=== PATIENT | female | born 1980 | race Caucasian/White ===

== ENCOUNTER 2022-03-11 14:35 | Outpatient (CLI) | payer OTHER, SELFPAY ==
--- NOTE | 2022-03-11 14:30 | MR_ITS ---
[facility] [address] [facility] [address] Phone:?[phone] Fax:?[phone] Referring Physician Information: Hunter Rodriguez [address] [facility] [address] Phone:?[phone] Fax:?[phone] Patient:Reuben Roberts D.O.B:?1980 Sex:?Female Phone:?[phone] [facility] MRN:?[id number] Exam Date:?03/11/2022 ? EXAM: MRI LUMBAR SPINE WITHOUT CONTRAST CLINICAL INFORMATION: 41-year-old woman with low back pain. TECHNICAL INFORMATION: MRI lumbar spine was obtained on 1.5 Leonor magnet including sagittal T2, T1, and STIR images. Axial T2 and T1-weighted images. INTERPRETATION: There is normal lordotic curvature of the lumbar spine. Convex to the right curvature. No loss of vertebral body height. Inflammatory endplate change at L5-S1. The conus is at the L1 level and is normal in appearance. L5-S1: Severe degenerative disc disease with inflammatory endplate change and disc bulge. 5 mm left posterior lateral and foraminal extruded disc herniation with left-sided subarticular recess stenosis and impingement upon the traversing left S1 nerve. Moderate to severe left foraminal stenosis with left L5 ganglion impingement. Moderate to severe right foraminal stenosis with right L5 ganglion impingement. No central spinal canal stenosis. Mild bilateral facet arthropathy. L4-5: No loss of disc space height. Mild annular bulge without central spinal canal or foraminal stenosis. L3-4: Minimal retrolisthesis and disc bulge without central spinal canal stenosis. 3 mm right foraminal and lateral disc protrusion contacting the right L3 nerve lateral to the foramen. Foramen on the left is patent. The facet joints are unremarkable. L2-3: No loss of disc space height. Minimal retrolisthesis and mild annular bulge. No central spinal canal or foraminal stenosis. L1-2 and T12-L1: No loss of disc space height or annular bulge. No central spinal canal or foraminal stenosis. CONCLUSION: 1. L5-S1 severe degenerative disc disease with inflammatory endplate change which may represent a cause of axial low back pain. Left posterior lateral and foraminal extruded disc herniation with impingement upon the traversing left S1 nerve. Moderate to severe bilateral foraminal stenosis with L5 ganglion impingement. 2. L3-4 3 mm right foraminal and lateral disc protrusion contacting the right L3 nerve lateral to the foramen. LPB Electronically signed on 03/12/2022 9:45:00 AM by Kurt Sparrow M.D.
== END 2022-03-11 14:36 | disposition home or self-care (01) ==
LOC: MRI 14:35
PROVIDERS: PCP Nurse Practitioner Family; Visit Provider Nurse Practitioner Family
DX: M54.50 Low back pain, unspecified (principal); M51.37 Other intervertebral disc degeneration, lumbosacral region; M51.26 Other intervertebral disc displacement, lumbar region
CPT/HCPCS: 72148

== ENCOUNTER 2022-03-18 14:29 | Outpatient (RCR) | payer OTHER, SELFPAY | END 2022-05-15 14:23 | disposition home or self-care (01) | PROVIDERS: PCP Nurse Practitioner Family; Visit Provider Nurse Practitioner Family | DX: M54.50 Low back pain, unspecified (principal); M25.562 Pain in left knee; Z51.89 Encounter for other specified aftercare | CPT/HCPCS: 97110; 97162 ==

== ENCOUNTER 2022-04-10 14:38 | Outpatient (CLI) | payer OTHER, SELFPAY ==
--- OUTSIDE RECORDS SUMMARY | 2022-04-10 14:40 | XMS_ITS | Clinical Summary ---
:1980 Author Organization [facility] [place] [address] Care Team Providers Name Role Phone Matheus Feliciano Primary Care Provider [phone] Allergies Active Allergy Reactions Severity Noted Date Comments Cephalexin Rash 06/11/2010 Medications Medication Sig Dispensed Refills Start Date End Date Status multivitamin (MVI) Take 1 tablet by 0 12/24/2010 Active tablet mouth once daily. cyanocobalamin Inject 0 10/13/2011 Acti ve (VITAMIN B12) 1,000 intramuscular every mcg/mL injection 4 weeks. SUMAtriptan (IMITREX) Take 1 tablet by 0 03/17/2012 Active 100 mg tablet mouth every 2 hours if needed for Migraine. Max dose: 200mg per 24 hrs. Atomoxetine Take 1 capsule by 0 04/15/2012 Active (STRATTERA) 80 mg mouth once daily. capsule cetirizine (ZYRTEC) Take 1 tablet by 30 tablet 0 06/15/2015 Active 10 mg mouth once daily. tabletIndications: Other allergic rhinitis escitalopram oxalate Take 20 mg by mouth 0 Active (LEXAPRO) 20 mg once daily. tablet gabapentin Take 900 mg by 99 03/31/2016 Act jennie (NEURONTIN) 300 mg mouth 3 times capsule daily. fluticasone (50 mcg Inhale 2 Sprays to 0 08/01/2016 Active per actuation) nasal both nostrils once solution (FLONASE) daily. ondansetron (ZOFRAN Place 1 Tablet (4 10 Tablet 0 01/09/2021 Active ODT) 4 mg mg) on the tongue disintegrating every 8 hours if tabletIndications: needed for Upper abdominal pain Nausea/Vomiting. busPIRone (BUSPAR) 30 Take 30 mg by mouth 0 06/20/20 20 Active mg tablet 2 times daily. CHOLECALCIFEROL, Take 2,000 units by 0 Active VITAMIN D3, ORAL mouth once daily. fremanezumab-vfrm 225 Inject 225 mg 0 01/22/2021 Active mg/1.5 mL syrg subcutaneous every 4 weeks. trospium (SANCTURA) Take 20 mg by mouth 0 Active 20 mg tablet 2 times daily. diclofenac (VOLTAREN TAKE 1 TABLET(100 30 Tablet 0 04/22/2021 Active XR) 100 mg extended MG) BY MOUTH EVERY release DAY WITH A MEAL tabletIndications: Chronic pain of left knee, Chronic left hip pain ondansetron (ZOFRAN Place 1 Tablet (4 9 Tablet 0 07/02/2021 Active ODT) 4 mg mg) on the tongue disintegrating every 8 hours if tabletIndications: needed for Nausea Nausea/Vomiting for up to 9 doses. ondansetron (ZOFRAN Place 1 Tablet (4 10 Tablet 0 07/24/2021 Active ODT) 4 mg mg) on the tongue disintegrating tablet every 8 hours if needed for nausea. HYDROcodone-acetamino Take 1 Tablet by 10 Tablet 0 08/06/2021 Active phen (NORCO) 5-325 mg mouth every 6 hours per if needed for Pain. tabletIndications: Defect of articular cartilage meloxicam (MOBIC) 7.5 TAKE 1 TABLET BY 30 Tablet 0 09/11/2021 Active mg tabletIndications: MOUTH ONCE A DAY Chronic pain of left WITH BREAKFAST. knee, Chronic left TAKE WITH PROTON hip pain, Labral tear PUMP INHIBITOR. of hip, degenerative, DISCONTINUE IF Defect of articular STOMACH PAIN cartilage, Chondromalacia of patellofemoral joint, left MULTIVITAMIN ORAL Take 1 Tablet by 0 Active mouth once daily. ProAir HFA 90 INHALE 2 PUFFS BY 0 01/11/2022 Active mcg/actuation inhaler MOUTH EVERY 4 HOURS NEEDED FOR COUGH calcium carbonate Take 500 mg by 0 Active (OS-MARCELLUS 500) 500 mg mouth. calcium (1,250 mg) tablet cyclobenzaprine 0 12/27/2021 Act jennie (FLEXERIL) 10 mg tablet levETIRAcetam 0 01/22/2022 Activ e (KEPPRA) 500 mg tablet voimpxqm-owxmryqbt-sl ADMINISTER 2 DROPS 0 2 Active drocortisone INTO EACH EAR FOUR (CORTISPORIN OTIC) TIMES DAILY otic suspension oxyCODONE 0 01/08/2022 Active (ROXICODONE) 5 mg immediate release tablet pantoprazole Take 1 Tablet by 0 07/03/2021 Active (PROTONIX) 20 mg mouth in the tablet morning and 1 Tablet in the evening. propranoloL (INDERAL) TAKE 1 TABLET BY 0 12/30/2021 Active 20 mg tablet MOUTH TWICE DAILY FOR 2 WEEKS IF TOLERATED MAY INCREASE TO 2 TABLETS BY MOUTH TWICE DAILY topiramate (TOPAMAX) 0 10/15/2020 Active 100 mg tablet traZODone (DESYREL) 0 01/13/2022 Active 50 mg tablet ZOLMitriptan (ZOMIG) Take 5 mg by mouth. 0 1 Active 5 mg tablet Dextromethorphan-guaF Take 1 Tablet by 30 Tablet 0 01/22/2022 Active ENesin (Mucinex DM) mouth in the 30-600 mg TABLET morning and 1 EXTENDED RELEASE 12 Tablet in the HRIndications: Nasal evening. congestion albuterol HFA Inhale 1-2 Puffs by 1 Each 0 01/22/2022 Active (PRO-AIR; VENTOLIN; mouth every 4 hours PROVENTIL) 90 if needed (cough). mcg/actuation inhalerIndications: Chest tightness, Nasal congestion albuterol (PROVENTIL) Inhale 3 mL (2.5 270 mL 0 01/22/2022 Active 0.083 % neb mg) via a nebulizer solutionIndications: every 4 hours if COVID-19, Nasal needed for Cough. congestion Active Problems Problem Noted Date Cat bite 08/04/2018 S/P gastric bypass 04/15/2012 Insomnia, unspecified 10/13/2011 Opioid dependence 10/13/2011 Migraine, unspecified, without mention of intractable migraine without 10/13/2011 mention of status migrainosus Major depression, recurrent (Sees Dr. Tc Segal, melvin) 10/13/2011 Morbid obesity - post bypass. 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 Heart Disease Mother Recent stress te st revealed blockage Heart Disease Paternal Grandfather NE age 30's (maybe) Heart Disease Paternal Grandmother Unknown Sister 2 Cancer-breast No Family History Relation Name Status Comments Brother 1 Alive Brother 2 Alive Brother 3 Brother 4 Daughter 1 Alive Daughter 2 Alive Daughter 3 Daughter 4 Father Alive Maternal Grandfather Mother Alive Paternal Grandfather Paternal Grandmother Sister 1 Alive Sister 2 Social History Tobacco Use Types Packs/Day Years Used Date Former Smoker Cigarettes 1.2 5 Quit: 08/10/18 98 Smokeless Tobacco: Never Used Tobacco Cessation: Counseling Given: Yes Alcohol Use Standard Drinks/Week Comments No 0 (1 standard drink = 0.6 oz pure alcoho l) occasionally Alcohol Habits Answer Date Recorded How often do you have a drink containing alcohol? Not asked How many drinks containing alcohol do you have on a Not aske d typical day when you are drinking? How often do you have six or more drinks on one occasion? 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 Body Mass Index 26.09 07/02/2021 2:40 PM SCHOOL BUS MECHANIC Plan of Treatment Health Maintenance Due Date Last Done Comments Depression screening for age 12+ 1993 Hepatitis C screening for age 0411/13/1999 18-79 BMI (ht and wt on same day) for 03/26/2022 03/26/2021, 0804/2021, age 18+ 07/23/2019, Additional history exists Influenza for age 9-49 04/10/2022 06/17/2013 ([facility]), 06/17/2013 Tetanus booster 11/03/2027 11/02/2017, 03/20/2007 Tdap Completed 11/02/2017, 03/20/2007 COVID-19 vaccine series Completed 07/17/2021, 12/18/2020, 11/22/2020 Medical Devices Implanted Type Area Slider Assembler Device Shelf Model / Identifier Expiration Date Ser ial / Lot Stent Uret [id number] Contour - [id number] Left: BSC Ur ology 11/15/2023 [id number] / Implanted: Qty: 1 on 02/06/2021 by Rebel Bernstein MD at [facility] Ureter / [id number] Procedures Procedure Name Priority Date/Time Associated Diagnosis Comme nts XR CHEST 2 VIEWS PA STAT 01/22/2022 5:45 PM Chest tig htness Results for this AND LATERAL CDT COVID-19 procedure are i n the results section. from Last 3 Months Results XR CHEST 2 VIEWS PA AND LATERAL (01/22/2022 5:45 PM CDT) Anatomical Region Laterality Modality CHEST, THORAX, Lung, HEART Computed Radi ography Specimen (Source) Anatomical Collection Method Collection Time Re ceived Time Location / / Volume Laterality 01/22/2022 5:49 PM CDT Impressions 01/22/2022 5:49 PM CDT 1. No acute cardiopulmonary disease is seen. Dictated by: Chandra Wood MD @ 01/22/2022 17 :49:40 (Electronically Signed) Narrative 01/22/2022 5:49 PM CDT For Patients: ??As a result of the Cures Act, medical imaging exams and procedure report s are released immediately into your [facility] medical record. ??You may view this report before your referring provider. ??If you have questions, please contact your health care provider. INDICATION: Chest tightness, COVID-19 TECHNIQUE: Chest radiograph 2 views COMPARISON: 04/07/2016 FINDINGS: Mediastinum: The mediastinum is normal i n appearance. The heart silhouette is normal in size and morphology. Lung: Both lungs are unremarkable in josé antonio earance. No sign of pleural effusion seen. No pneumothorax is identified. Bone and Soft tissue: Unremarkable for a ge. Procedure Note Chandra Wood MD - 01/22/2022Formattin g of this note might be different from the original. For Patients: As a result of the Cures Act, medical imaging exams and procedure reports are released immediately into your electronic medical record. You may view this report before your referring provider. If you have questions, please contact yo health care provider. INDICATION: Chest tightness, COVID-19 TECHNIQUE: Chest radiograph 2 views COMPARISON: 04/07/2016 FINDINGS: Mediastinum: The mediastinum is normal i n appearance. The heart silhouette is normal in size and morphology. Lung: Both lungs are unremarkable in josé antonio earance. No sign of pleural effusion seen. No pneumothorax is identified. Bone and Soft tissue: Unremarkable for a ge. IMPRESSION: 1. No acute cardiopulmonary disease is s een. Dictated by: Chandra Wood MD @ 01/22/2022 17 :49:40 (Electronically Signed) Marjan E Furlong PLANT MAINTENANCE MECHANIC GENERAL IMAGING from Last 3 Months Insurance Payer Benefit Plan / Subscriber ID Effective Dates Phone Addre ss Type Group [facility] [id number] 2020-Present [address] [facility] [id number] (Home) [place] [phone] Advance Directives Latest Code Status on File Code Status Date Activated Date Inactivated Comments Full Code 02/06/2021 6:35 AM 02/06/2021 3:07 PM Code Status Discussion: Not Discussed Full Code 09/19/2020 7:23 AM 09/19/2020 1:10 PM Code Status Discussion: Not Discussed Full Code 10/10/2010 9:11 AM 10/12/2010 3:40 PM Full Code 01/28/2008 10:10 AM 01/28/2008 5:52 PM Care Teams Culture Room Worker Relationship Specialty Start Date End Date Matheus Feliciano MBBS PCP - General Family Practice 01/11/[address] [place] [address] [place] [address]
--- OUTSIDE RECORDS SUMMARY | 2022-04-10 14:41 | XMS_ITS | Clinical Summary ---
:1980 Author Organization [place] Address [address] [place] [address] Care Team Providers Name Role Phone Matheus Feliciano MD Primary Care Provider Car Joel MD Unavailable Allergies Active Allergy Reactions Severity Noted Date Comments Cephalexin Hcl Itching, Rash High 01/01/2012 Medications Medication Sig Dispensed Refills Start Date End Date Status busPIRone HCl (BUSPAR) Take 30 mg by 0 Active 30 MG tablet mouth 2 times daily SUMAtriptan (IMITREX) Take 100 mg by 0 Active 100 MG tablet mouth every 8 hours as needed atomoxetine (STRATTERA) Take 80 mg by 0 Active 80 MG capsule mouth daily. Multiple Take 1 tablet by 0 Act jennie Vitamins-Minerals mouth every (MULTIVITAMIN & MINERAL morning PO)Indications: Bariatric surgery status, Overweight and obesity(278.0) calcium Take 1 tablet by 90 tablet 11 07/13/2013 Ac tive carbonate-vitamin D mouth 3 times (CALCIUM 500 + D) daily 500-400 MG-UNIT TABS tabltIndications: Bariatric surgery status, Overweight and obesity(278.0) cyanocobalamin 1000 Inject 1 mL 1 mL 11 07/13/2013 Active MCG/ML (1,000 mcg) into injectionIndications: the muscle every Bariatric surgery 30 days status, Overweight and obesity(278.0) escitalopram (LEXAPRO) Take 20 mg by 0 Active 20 MG tablet mouth daily levETIRAcetam (KEPPRA) Take 500 mg by 0 Active 500 MG tablet mouth 2 times daily topiramate (TOPAMAX) Take 100 mg by 0 Active 100 MG tablet mouth At Bedtime gabapentin (NEURONTIN) Take 900 mg by 0 Active 300 MG capsule mouth 3 times daily (takes 3 x 300mg) fluticasone (FLONASE) Bronson 30 mcg in 0 Active 50 MCG/ACT nasal spray nostril daily as needed vitamin D3 Take 2,000 Units 0 Ac tive (CHOLECALCIFEROL) 50 by mouth daily mcg (2000 units) tablet omega 3 1000 MG CAPS Take 1 g by mouth 0 Active daily ondansetron Take 4 mg by 0 09/21/2019 Acti ve (ZOFRAN-ODT) 4 MG ODT mouth every 6 tab hours as needed lidocaine (LIDODERM) 5 Place 1 patch 0 08/26/2018 Active % patch onto the skin daily as needed adapalene (DIFFERIN) Apply topically 0 Active 0.1 % external cream At Bedtime cetirizine (ZYRTEC) 10 Take 10 mg by 0 Active MG tablet mouth daily as needed polyethylene glycol Take 1 packet by 0 Active (MIRALAX) 17 g packet mouth daily doxylamine (UNISOM) 25 Take 50 mg by 0 Active MG TABS tablet mouth At Bedtime (take 2 x 25mg) cyclobenzaprine Take 0.5-1 10 tablet 0 05/04/2020 Ac tive (FLEXERIL) 10 MG tablets (5-10 mg) tabletIndications: by mouth 2 times Postoperative pain daily as needed for muscle spasms pantoprazole (PROTONIX) TAKE 1 TABLET BY 30 tablet 3 2 Active 20 MG EC MOUTH TWICE DAILY tabletIndications: Other acute gastritis without hemorrhage Active Problems Problem Noted Date Hiatal hernia 03/22/2020 Overview: Added automatically from request for jose riveray [id number] Bariatric surgery status 11/17/2019 Malnutrition following gastrointestinal surgery 2019 Class 1 obesity due to excess calories without serious comorbidity with 11/17/2019 body mass index (BMI) of 30.0 to 30.9 in adult Cervicalgia 09/09/2017 Chronic bilateral low back pain without sciatica 09/09 Resolved Problems Problem Noted Date Resolved Date Sprain of thoracic region 01/14/2011 03/06/2011 Sprain of lumbar region 01/14/2011 03/06/2011 Encounters Date Type Specialty Care Team Description 02/17/2022 Telephone Surgery Lelo Aranda, RN 02/17/2022 Refill General Surgery Car Joel MD Medica tion Refill from Last 3 Months Immunizations Name Administration Dates Next Due TD (ADULT, 7+) 03/20/2007 Family History Medical History Relation Comments Colon Cancer No family hx of Social History Tobacco Use Types Packs/Day Years Used Date Former Smoker Cigarettes Smokeless Tobacco: Never Used Comments: as a child Alcohol Use Standard Drinks/Week Comments No 0 (1 standard drink = 0.6 oz pure alcoho l) Sex Assigned at Date Recorded Female 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 Last Filed Vital Signs Vital Sign Reading Time Taken Comments Blood Pressure 90/60 04/03/2021 3:05 PM CDT Pulse 84 04/03/2021 3:05 PM CDT Temperature 36.7 ??C (98 ??F) 02/09/2021 9:19 PM CDT Respiratory Rate 16 02/09/2021 11:00 PM CDT Oxygen Saturation 99% 02/09/2021 11:00 PM CDT Inhaled Oxygen Concentration - - Weight 66.7 kg (147 lb) 04/03/2021 3:05 PM CDT Height 165.1 cm (5' 5) 05/28/2020 9:44 AM CDT Body Mass Index 24.46 05/28/2020 9:44 AM CDT Plan of Treatment Health Maintenance Due Date Last Done Comments ADVANCE CARE PLANNING 1980 ANNUAL REVIEW OF HM ORDERS 1980 PREVENTIVE CARE VISIT 1980 URINE DRUG SCREEN 1980 HIV SCREENING 1996 HEPATITIS C SCREENING 11/13/1999 PAP 2002 COVID-19 Vaccine (3 - 05/20/2021 12/18/2020, 11/22/2020 Booster for Pfizer series) PHQ-2 (once per calendar 08/10/2021 year) INFLUENZA VACCINE (#1) 2022 06/21/2020, 05/02/2019, 04/20/2018, Additional history exists DTAP/TDAP/TD IMMUNIZATION 11/03/2027 11/02/2017, 03/20/2007 , (3 - Td or Tdap) 03/20/2007 HEPATITIS B IMMUNIZATION Aged Out No long er eligible based on patient 's age to complete this topic IPV IMMUNIZATION Aged Out No longer eligi ble based on patient 's age to complete this topic MENINGITIS IMMUNIZATION Aged Out No longe r eligible based on patient 's age to complete this topic Pneumococcal Vaccine: Aged Out No longer eligible Pediatrics (0 to 5 Years) based on patient's age and At-Risk Patients (6 to to co mplete this topic 64 Years) Medical Devices Implanted Type Area Technical Support Director Device Identifier Shelf Model / Expiration Serial / Date Lot Mesh Bio-A Tissue Reinforcement 7x10cm [id number] Mesh N/A: W .L.GORE [id number] 10/09/2022 [id number] / Implanted: Qty: 1 on 04/12/2020 by Car Lieberman MD at [facility] Abdomen [id number] 27 / Insurance Payer Benefit Plan Subscriber ID Effective Phone Address Typ e / Group Dates [facility] [id number] 2017-Prese [phone] [address] [facility] [address] [id number] [employer] [place] [facility] [phone] [address] (Home) [place] [phone] Advance Directives For more information, please contact: [phone] Latest Code Status on File Code Status Date Activated Date Inactivated Comments Full Code 04/12/2020 2:31 PM 04/14/2020 3:50 PM All basic and advanced life-sustaining interventions ar e performed as appropriate Code status determined by: Unable to determine; FULL C ODE until documents or legal decision maker available Care Teams Historic Sites Supervisor Relationship Specialty Start Date End Date Matheus Feliciano MD PCP - General 03/23/20 [facility] [address] [place] [phone] Car Joel MD Assigned Surgical Provider 06/01/20 [address] [place] [address]
--- OUTSIDE RECORDS SUMMARY | 2022-04-10 14:41 | XMS_ITS | Encounter Summary ---
:1980 Author Organization [place] Address [address] [place] [address]. 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 documented as of this encounter Plan of Treatment Not on filedocumented as of this encounter Visit Diagnoses Not on filedocumented in this encounter Care Teams Delivery Person Relationship Specialty Start Date End Date Matheus Feliciano MD PCP - General 03/23/[address] [facility] [address] [place] [phone] Car Joel MD Assigned Surgical Provider 06/01/20 [address] [place] [address] documented as of this encounter
--- OUTSIDE RECORDS SUMMARY | 2022-04-10 14:41 | XMS_ITS | Encounter Summary ---
:1980 Author Organization [place] Address [address] [place] [address]. [place] [address] Care Team Providers Name Role Phone Matheus Feliciano MD Primary Care Provider Car Joel MD Unavailable Reason for Visit Reason Onset Date Comments Same Day Appointment 03/04/2021 Encounter Details Date Type Department Care Team Description 03/04/2021 Telephone [facility] Car Joel MD Same Day Appointment [facility] [place] [address] [place] [address] [place] [address] [phone] Social History Tobacco Use Types Packs/Day Years Used Date Former Smoker Cigarettes Smokeless Tobacco: Never Used Comments: as a child Alcohol Use Standard Drinks/Week Comments No 0 (1 standard drink = 0.6 oz pure alcoho l) Sex Assigned at Date Recorded Female 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 Joel appointment will need to be rescheduled. We rescheduled appointment. Telephone Encounter - Geni Olmos - 03/04/2021 10:28 AM CDT Reason for call: Other Patient called regarding (reason for call): appointment Additional comments: Patient is running about 20 - 30 minutes late. They are wondering if they can still be seen for the surgical consult with MD Joel. We tried the nurse line twice, but it went to voicemail. Please call the patient to discuss. Phone number to reach patient: Home number on file [phone] (home) Best Time: DAWN (Patient driving from a distance, needs to know if they should keep driving) Can we leave a detailed message on this number? YES Travel screening: Not Applicable documented in this encounter Plan of Treatment Not on filedocumented as of this encounter Visit Diagnoses Not on filedocumented in this encounter Care Teams Wireless Retail Manager Relationship Specialty Start Date End Date Matheus Feliciano MD PCP - General 03/23/20 [facility] [address] [facility] [place] [phone] Car Joel MD Assigned Surgical Provider 06/01/20 [address] [place] [id number] documented as of this encounter
--- OUTSIDE RECORDS SUMMARY | 2022-04-10 14:41 | XMS_ITS | Encounter Summary ---
:1980 Author Organization [place] Address [address] [place] [address]. [place] [address] Care Team Providers Name Role Phone Matheus Feliciano MD Primary Care Provider Car Joel MD Unavailable Reason for Visit Reason Comments Medication Refill Encounter Details Date Type Department Care Team Description 12/25/2021 Refill [facility] Surgery Car Joel MD Medication Refill Clinic [place] [address] [place] [place] [address] [address] [place] [phone] Social History Tobacco Use Types Packs/Day Years Used Date Former Smoker Cigarettes Smokeless Tobacco: Never Used Comments: as a child Alcohol Use Standard Drinks/Week Comments No 0 (1 standard drink = 0.6 oz pure alcoho l) Sex Assigned at Date Recorded Female 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 She is all out. She ran out 2 days ago. Is not symptomatic at this minute but has had indegestion in the past 2 days. Requesting refill Verified pharmacy. Requested pt schedule follow-up with providers in clinic - pt declined at this time. She will call to schedule for annual in March. Will forward to provider for refill Lelo Aranda RN on 12/27/2021 at 3:02 PM Telephone Encounter - Lelo Aranda RN - 12/27/2021 10:37 AM CDT Called pt re: pantoprazole refill request No answer Left VM to call clinic Lelo Aranda RN on 12/27/2021 at 10:37 AM documented in this encounter Plan of Treatment Not on filedocumented as of this encounter Visit Diagnoses Diagnosis Other acute gastritis without hemorrhage documented in this encounter Care Teams Computer Lab Para Professional Relationship Specialty Start Date End Date Matheus Feliciano MD PCP - General 03/23/20 [facility] [address] [place] [address] Car Joel MD Assigned Surgical Provider 06/01/20 [address] [place] [id number] documented as of this encounter
--- OUTSIDE RECORDS SUMMARY | 2022-04-10 14:41 | XMS_ITS | Encounter Summary ---
:1980 Author Organization [place] Address [address] [place] [address]. [place] [address] Care Team Providers Name Role Phone Matheus Feliciano MD Primary Care Provider Car Joel MD Unavailable Reason for Visit Reason Comments Medication Refill Encounter Details Date Type Department Care Team Description 08/30/[address] 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 She reports she is taking 20 mg pantoprazole daily. Symptoms are relieved on this medication. Has approx 5 days left. She is requesting a refill. Does not want to follow-up with any provider in [place] is only seeing . will forward to for refill. Lelo Aranda RN on 08/30/2021 at 2:12 PM OSING ROOM MACHINIST Telephone Encounter - Lelo Aranda RN - 08/30/2021 8:46 AM CST Called pt re: protonix refill request Last visit with 03/2021 No answer Left Vm to call clinic, will send MC message for pt to respond as well. Lelo Aranda RN on 08/30/2021 at 8:47 AM OSING ROOM MACHINIST documented in this encounter Plan of Treatment Not on filedocumented as of this encounter Visit Diagnoses Diagnosis Other acute gastritis without hemorrhage documented in this encounter Care Teams Cephalometric Analyst Relationship Specialty Start Date End Date Matheus Feliciano MD PCP - General 03/23/[address] [place] [address] Car Joel MD Assigned Surgical Provider 06/01/20 [address] [place] [id number] documented as of this encounter
--- OUTSIDE RECORDS SUMMARY | 2022-04-10 14:41 | XMS_ITS | Encounter Summary ---
:1980 Author Organization [place] Address [address] [place] [address]. [place] [address] Care Team Providers Name Role Phone Matheus Feliciano MD Primary Care Provider Car Joel MD Unavailable Reason for Visit Reason Comments RECHECK Encounter Details Date Type Department Care Team Description 04/03/2021 Office Visit [facility] Car Joel, Malmio ition following Surgery Clinic [place] gastrointestinal surgery [address] [place] [phone] [place] [id number] Social History Tobacco Use Types Packs/Day Years Used Date Former Smoker Cigarettes Smokeless Tobacco: Never Used Comments: as a child Alcohol Use Standard Drinks/Week Comments No 0 (1 standard drink = 0.6 oz pure alcoho l) Sex Assigned at Date Recorded Female 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 documented as of this encounter Last Filed Vital Signs Vital Sign Reading Time Taken Comments Blood Pressure 90/60 04/03/2021 3:05 PM CDT Pulse 84 04/03/2021 3:05 PM CDT Temperature - - Respiratory Rate - - Oxygen Saturation - - Inhaled Oxygen Concentration - - Weight 66.7 kg (147 lb) 04/03/2021 3:05 PM CDT Height - - Body Mass Index 24.46 05/28/2020 9:44 AM CDT documented in this encounter Progress Notes Car Joel MD - 04/03/2021 3:00 PM CDT General surgery clinic note Since last visit Mrs. Roberts has been journaling her food intake daily. In doing so she has identified food items that she should cut back on and has done so specifically monster drinks. She has herself noticed a significant improvement on her energy and demeanor. Today she is very enthusiastic and pleased with the progress. I believe journaling her food has allow her to have a goal of ingesting at least a certain amount offood and drinks which has improved her overall situation. I highly encouraged her to continue doing so he has proved highly effective and has not been difficult for her filling it. Return to clinic as needed. documented in this encounter Plan of Treatment Not on filedocumented as of this encounter Visit Diagnoses Diagnosis Malnutrition following gastrointestinal surgery - Primary Other and unspecified postsurgical nonab sorption documented in this encounter Care Teams Dental Surgeon Relationship Specialty Start Date End Date Matheus Feliciano MD PCP - General 03/23/20 [facility] [address] [facility] [place] [phone] Car Joel MD Assigned Surgical Provider 06/01/20 [address] [place] [id number] documented as of this encounter
--- OUTSIDE RECORDS SUMMARY | 2022-04-10 14:41 | XMS_ITS | Encounter Summary ---
:1980 Author Organization [place] Address [address] [place] [address]. [place] [address] Care Team Providers Name Role Phone Matheus Feliciano MD Primary Care Provider Car Joel MD Unavailable Reason for Visit Reason Comments Medication Refill Encounter Details Date Type Department Care Team Description 02/17/2022 Refill [facility] Surgery Car Joel MD Medication Refill Clinic [place] [address] [place] [address] [address] [place] [phone] Social History Tobacco Use Types Packs/Day Years Used Date Former Smoker Cigarettes Smokeless Tobacco: Never Used Comments: as a child Alcohol Use Standard Drinks/Week Comments No 0 (1 standard drink = 0.6 oz pure alcoho l) Sex Assigned at Date Recorded Female 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 Yes 2) How many tablets do you have left? 2 days worth 3) Are you symptoms controlled? If I stop taking medication I have bad indigestion without it Pt would like refill of Pantoprazole Will forward to for refill. Lelo Aranda, RN on 02/17/2022 at 10:38 AM documented in this encounter Plan of Treatment Not on filedocumented as of this encounter Visit Diagnoses Diagnosis Other acute gastritis without hemorrhage documented in this encounter Care Teams Claims Specialist Relationship Specialty Start Date End Date Matheus Feliciano MD PCP - General 03/23/20 [facility] [address] [facility] [place] [address] Car Joel MD Assigned Surgical Provider 06/01/20 [address] [place] [id number] documented as of this encounter
--- OUTSIDE RECORDS SUMMARY | 2022-04-10 14:42 | XMS_ITS | Encounter Summary ---
:1980 Author Organization [place] Address [address] [place] [address]. [place] [address] Care Team Providers Name Role Phone Matheus Feliciano MD Primary Care Provider Reason for Visit Reason Comments Surgical Followup Laparoscopic Hiatal Hernia r epair on 04/12/20 Encounter Details Date Type Department Care Team Description 04/30/2020 Office Visit [facility] Car Joel, Surgery follow-up Surgery Clinic [place] examination (Primary [address] [place] [address] [place] [id number] Social History Tobacco Use Types Packs/Day Years Used Date Former Smoker Cigarettes Smokeless Tobacco: Never Used Comments: as a child Alcohol Use Standard Drinks/Week Comments No 0 (1 standard drink = 0.6 oz pure alcoho l) Sex Assigned at Date Recorded Female 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 documented as of this encounter Progress Notes Car Joel MD - 04/30/2020 11:45 AM CDT Bariatric surgery clinic note. First postoperative visit with Mrs. Roberts and her after her laparoscopic hiatal hernia repair. Since leaving the hospital she has been able to eat and drink up to full liquid diet without difficulties. Her bowel habits are still infrequent where she goes maybe once every 5 to 7 days. We discussed the importance of hydration to address this issue or adding things like prune juice. She is not suffering from any reflux and regurgitation has not been a problem. Her incisions are healing well without evidence of infection or hernia. Overall very good recovery, we talked about advancing her diet to moist and soft items. I suspect her diet will be fully liberalized in the next 2 to 4 weeks. We will continue to see her in follow-up. If questions, please call us. Best regards documented in this encounter Plan of Treatment Not on filedocumented as of this encounter Visit Diagnoses Diagnosis Surgery follow-up examination - Primary Follow-up examination, following unspeci fied surgery documented in this encounter Care Teams Pigs Feet Finisher Relationship Specialty Start Date End Date Matheus Feliciano MD PCP - General 03/23/[address] [place] [phone] documented as of this encounter
--- OUTSIDE RECORDS SUMMARY | 2022-04-10 14:42 | XMS_ITS | Encounter Summary ---
:1980 Author Organization [place] Address [address] [place] [address]. [place] [address] Care Team Providers Name Role Phone Matheus Feliciano MD Primary Care Provider Reason for Visit Reason Comments Medication Refill Encounter Details Date Type Department Care Team Description 04/17/[address] 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 documented as of this encounter Plan of Treatment Not on filedocumented as of this encounter Visit Diagnoses Diagnosis LUQ abdominal pain Abdominal pain, left upper quadrant Bariatric surgery status documented in this encounter Care Teams Drum Stock Clerk Relationship Specialty Start Date End Date Matheus Feliciano MD PCP - General 03/23/[address] [place] [address] documented as of this encounter
--- OUTSIDE RECORDS SUMMARY | 2022-04-10 14:42 | XMS_ITS | Encounter Summary ---
:1980 Author Organization [place] Address [address] [place] [address]. [place] [address] Care Team Providers Name Role Phone Matheus Feliciano MD Primary Care Provider Car Joel MD Unavailable Encounter Details Date Type Department Care Team Description 01/31/2021 Telephone [facility] Surgical Michael, Lon Alexander, Weight Loss Clinic E olga PA-C [address] [facility] [address] [facility] [address] [place] [address] [place] [phone] Social History Tobacco Use Types Packs/Day Years Used Date Former Smoker Cigarettes Smokeless Tobacco: Never Used Comments: as a child Alcohol Use Standard Drinks/Week Comments No 0 (1 standard drink = 0.6 oz pure alcoho l) Sex Assigned at Date Recorded Female 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 documented as of this encounter Miscellaneous Notes Telephone Encounter - Leonila Shanks MA - 02/01/2021 11:34 AM CDT Lab order faxed Leonila Shanks MA Telephone Encounter - Jagdeep Morales - 01/31/2021 4:17 PM CDT Pt needs lab orders faxed over to [facility] in [facility] as soon as possible. Fax number is [phone]. Please see TE from Rehana about what labs needs to be faxed over. Thanks! documented in this encounter Plan of Treatment Not on filedocumented as of this encounter Visit Diagnoses Not on filedocumented in this encounter Care Teams Retail Wireless Sales Representative Relationship Specialty Start Date End Date Matheus Feliciano MD PCP - General 03/23/[address] [place] [phone] Car Joel MD Assigned Surgical Provider 06/01/20 [address] [place] [address] documented as of this encounter
--- OUTSIDE RECORDS SUMMARY | 2022-04-10 14:42 | XMS_ITS | Encounter Summary ---
:1980 Author Organization [facility] Address [address] [place] [address]. [place] [address] Care Team Providers Name Role Phone Matheus Feliciano MD Primary Care Provider Car Joel MD Unavailable Reason for Visit Reason Onset Date Comments Patient Request 02/19/2021 Encounter Details Date Type Department Care Team Description 02/19/2021 Telephone [facility] Surgical Rehana Anaya, Patient Request Weight Loss Clinic E olga RN [address] [facility] [address] [facility] [address] [place] [phone] [place] [id number] Social History Tobacco Use Types Packs/Day Years Used Date Former Smoker Cigarettes Smokeless Tobacco: Never Used Comments: as a child Alcohol Use Standard Drinks/Week Comments No 0 (1 standard drink = 0.6 oz pure alcoho l) Sex Assigned at Date Recorded Female 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 Joel requested 02/06/21. Stated that she and her don't remember hearing about the log because she was just coming outof surgery. Wanted to know more about it. Informed patient that she is to keep log of what she ate and drank until she sees him on 03/04/21. Even if she can remember a couple of days back to add that. She is to see a dietitian. Would rather do it virtual as can't do it on the day that her appointment was changed to. She is seeing the RD tomorrow at 2 PM. She was reminded to have her TSH done. Patient verbalized understanding and is agreeable to plan. Rehana Bryan MS, RD, RN documented in this encounter Plan of Treatment Not on filedocumented as of this encounter Visit Diagnoses Not on filedocumented in this encounter Care Teams Restaurant Hospitality Manager Relationship Specialty Start Date End Date Matheus Feliciano MD PCP - General 03/23/20 [facility] [address] [place] [address] Car Joel MD Assigned Surgical Provider 06/01/20 [address] [place] [address] documented as of this encounter
--- OUTSIDE RECORDS SUMMARY | 2022-04-10 14:42 | XMS_ITS | Encounter Summary ---
:1980 Author Organization [facility] Address [address] [place] [address]. 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 documented as of this encounter Plan of Treatment Not on filedocumented as of this encounter Visit Diagnoses Not on filedocumented in this encounter Care Teams Ceramic Design Engineer Relationship Specialty Start Date End Date Matheus Feliciano MD PCP - General 03/23/[address] [address] documented as of this encounter
--- OUTSIDE RECORDS SUMMARY | 2022-04-10 14:42 | XMS_ITS | Encounter Summary ---
:1980 Author Organization [facility] Address [address] [place] [address]. [place] [address] Care Team Providers Name Role Phone Matheus Feliciano MD Primary Care Provider Reason for Visit Auth/Cert Specialty Diagnoses / Procedures Referred By Contact Refer red To Contact Surgery Diagnoses Hiatal hernia Hiatal hernia [K44.9] Sh Periop Services Procedures C LAP, REPAIR PARAESOPHAGEAL HERNIA, INCL FUNDOPLASTY W/O MESH C LAP, REPAIR PARAESOPHAGEAL HERNIA, INCL FUNDOPLASTY W/ MESH LAPAROSCOPIC HIATAL HERNIA REPAIR WITH MANUEL FUNDOPLICATION [address], [address] [place] [phone] Phone: Referral ID Status Reason Start Date Expiration Date Visits Requ ested Visits Authorized [id number] 1 1 Encounter Details Date Type Department Care Team Description [facility]12[facility] 04/14/2020 Jimmy Nelson MD Hiatal hernia; Intermediate Care [address] Hiatal hernia [address] [place] [id number] [place] [phone] [id number] Social History Tobacco Use Types Packs/Day Years Used Date Former Smoker Cigarettes Smokeless Tobacco: Never Used Comments: as a child Alcohol Use Standard Drinks/Week Comments No 0 (1 standard drink = 0.6 oz pure alcoho l) Sex Assigned at Date Recorded Female 06/29/2021 12:12 PM [employer] COVID-19 Exposure Response Date Recorded In the last month, have you been in contact with No / Unsure 04/12/2020 8:55 AM CDT someone who was confirmed or suspected to have Coronavirus / COVID-19? documented as of this encounter Last Filed Vital Signs Vital Sign Reading Time Taken Comments Blood Pressure 111/76 04/14/2020 11:55 AM CDT Pulse 72 04/14/2020 11:55 AM CDT Temperature 37.2 ??C (99 ??F) 04/14/2020 11:55 AM CDT Respiratory Rate 16 04/14/2020 11:55 AM CDT Oxygen Saturation 94% 04/14/2020 11:55 AM CDT Inhaled Oxygen Concentration - - Weight 76.1 kg (167 lb 12.8 oz) 04/12/2020 9:12 AM CDT Height 165.1 cm (5' 5) 04/12/2020 9:12 AM CDT Body Mass Index 27.92 04/12/2020 9:12 AM CDT documented in this encounter Discharge Summaries Josie Medina PA-C - 04/14/2020 1:50 PM CDT Discharge Summary Gricelda Roberts Date of : 1980 Age: [age] year old Date of Admission: 04/12/2020 Date of Discharge: 04/14/2020 1:50 PM Admitting Physician: Car Joel MD Discharging Service: [facility] General Surgery Primary Provider: Matheus Feliciano I Discharge Diagnoses: Principle Diagnosis: Hiatal hernia [K44.9] Brief HPI Gricelda Roberts underwent lap cirilo-en-y gastric bypass [place] [address] Joel. She was recently in the hospital for development of left upper quadrant abdominal pain. She has chronic constipation. CT scan of abdomen was performed which revealed no abdominal wall hernia, no hematoma. Slight migration of upper gastric pouch into the posterior mediastinum was seen. The patient has struggled with keeping anything more than liquids down. Dr. Joel recommended hiatal hernia repair. Risks, benefits, alternatives, potential complications, expected recovery were discussed in detail. The patient desired toproceed with surgery and provided consent. Dr. Joel also advised her that her left upper quadrant p ain was likely musculoskeletal due to straining from chronic constipation. He started her on a more aggressive bowel regimen. Hospital Course On 04/12/2020 Gricelda Roberts underwent lap hiatal hernia repair with bio-A absorbable mesh placement,lap lysis of adhesions, and gastric pouch pexy. There were no intraoperative complications, please see op note for full details. Postoperatively she was admitted to the hospital for monitoring and recovery. She was started on clear liquids and her diet was slowly advanced. She did have some nausea postoperatively, which is common for her at baseline. On POD 2 she was tolerating adequate oral intake of liquids, had good pain control, was afebrile, had stable vital signs, and was appropriate for discharge home. Discharge instructions were reviewed, questions answered. She will return to see Dr. Joel in clinic in 2-3 weeks. Patient was in agreement with discharge plan. Consultations: None Discharge Disposition: Discharged to home Condition on Discharge: Discharge condition: Stable Discharge vitals: Blood pressure 111/76, pulse 72, temperature 99 ??F (37.2 ??C), temperature sourceOral, resp. rate 16, height 1.651 m (5' 5), weight 76.1 kg (167 lb 12.8 oz), SpO2 94 %, not currently . Discharge Medications: Discharge Medication List as of 04/14/2020 1:05 PM START taking these medications Details acetaminophen (TYLENOL) 325 MG tablet Take 2 tablets (650 mg) by mouth 4 times daily as needed for pain, OTC cyclobenzaprine (FLEXERIL) 5 MG tablet Take 1-2 tablets (5-10 mg) by mouth 3 times daily as needed for muscle spasms (pain), Disp-15 tablet,R-0, E-Prescribe oxyCODONE (ROXICODONE) 5 MG tablet Take 1-2 tablets (5-10 mg) by mouth every 4 hours as needed for moderate to severe pain, Disp-15 tablet,R-0, E-Prescribe CONTINUE these medications which have NOT CHANGED Details adapalene (DIFFERIN) 0.1 % external cream Apply topically At Bedtime Historical atomoxetine (STRATTERA) 80 MG capsule Take 80 mg by mouth daily. , Historical busPIRone HCl (BUSPAR) 30 MG tablet Take 30 mg by mouth 2 times daily , Historical calcium carbonate-vitamin D (CALCIUM 500 + D) 500-400 MG-UNIT TABS tablt Take 1 tablet by mouth 3 times daily, Disp-90 tablet,R-11, E-Prescribe cetirizine (ZYRTEC) 10 MG tablet Take 10 mg by mouth daily as needed , Historical cyanocobalamin 1000 MCG/ML injection Inject 1 mL (1,000 mcg) into the muscle every 30 days, Disp-1 mL,R-11, E-Prescribe dicyclomine (BENTYL) 10 MG capsule Take 1 capsule (10 mg) by mouth 4 times daily (before meals and nightly), Disp-240 capsule,R-1, E-Prescribe doxylamine (UNISOM) 25 MG TABS tablet Take 50 mg by mouth At Bedtime (take 2 x 25mg), Historical escitalopram (LEXAPRO) 20 MG tablet Take 20 mg by mouth daily, Historical fluticasone (FLONASE) 50 MCG/ACT nasal spray [place] 30 mcg in nostril daily as needed , Historical gabapentin (NEURONTIN) 300 MG capsule Take 900 mg by mouth 3 times daily (takes 3 x 300mg), Historical levETIRAcetam (KEPPRA) 500 MG tablet Take 500 mg by mouth 2 times daily , Historical lidocaine (LIDODERM) 5 % patch Place 1 patch onto the skin daily as needed Historical Multiple Vitamins-Minerals (MULTIVITAMIN & MINERAL PO) Take 1 tablet by mouth every morning , Historical omega 3 1000 MG CAPS Take 1 g by mouth daily , Historical ondansetron (ZOFRAN-ODT) 4 MG ODT tab Take 4 mg by mouth every 6 hours as needed , Historical polyethylene glycol (MIRALAX) 17 g packet Take 1 packet by mouth daily, Historical potassium chloride ER (KLOR-CON M) 10 MEQ CR tablet Take 10 mEq by mouth daily, Historical SUMAtriptan (IMITREX) 100 MG tablet Take 100 mg by mouth every 8 hours as needed , Historical syringe, disposable, 1 ML MISC 1 Device every 30 days, Disp-1 each, R-11, E-Prescribe topiramate (TOPAMAX) 100 MG tablet Take 100 mg by mouth At Bedtime , Historical vitamin D3 (CHOLECALCIFEROL) 50 mcg (2000 units) tablet Take 2,000 Units by mouth daily , Historical pantoprazole (PROTONIX) 40 MG EC tablet TAKE 1 TABLET(40 MG) BY MOUTH TWICE DAILY, Disp-120 tablet,R-0, E-Prescribe Discharge Instructions and Follow-Up: Please follow-up in [address] Joel for your first postoperative appointment. Call [phone] to schedule this. Our clinic's name is [facility]. Our [facility] name [facility]. The address is [facility] [address], [address], [place], [address] Follow-up and recommended labs and tests Clinic visit in 2-3 weeks After Care Instructions Activity Expect to feel tired after your surgery. This will gradually resolve. Take frequent, short walks and increase your activity gradually. Avoid strenuous physical activity or heavy lifting greater than 15-20 lbs. for 2-3 weeks. You may climb stairs. You may drive without restrictions when you are not using any prescription pain medication and feel comfortable in a car. You may return to work/school when you are comfortable without any prescription pain medication. Diet Follow a full liquid diet at home. If you are tolerating good amounts of full liquids well, you mayadvance to pureed foods. Stay on full liquids or pureed foods until your follow-up appointment. Wound care and dressings Keep dressings clean and dry. Remove the bandaids after 48 hours. Wait 10 days before removing the small white steri strips over your incision. These will often fall off on their own in 7-10 days. Do not attempt to replace these if they should fall off sooner. After 48 hours, remove the bandaids and you can shower normally. You can allow warm water and soap to run over the incision. Do not scrub theincision. After showering pat your skin and steri strips dry. Do not submerge or soak your incisionsunder water for 2 weeks. Josie Medina PA-C [facility] [phone] Associated attestation - Car Joel MD - 04/19/2020 1:02 PM CDT Physician Attestation ICar MD, have reviewed and discussed with the advanced practice provider their discharge plan for Gricelda Roberts. I did not participate in a shared visit by interviewing or examining thepatient and this should be billed as an advanced practice provider only discharge. Car NelsonRafal Hooper documented in this encounter Discharge Instructions Discharge InstructionsDarryl Goldberg RN - 04/12/2020 2:18 PM CDT Same Day Surgery Discharge Instructions for Sedation and General Anesthesia ?? It's not unusual to feel dizzy, light-headed or faint for up to 24 hours after surgery or while taking pain medication. If you have these symptoms: sit for a few minutes before standing and have someone assist you when you get up to walk or use the bathroom. ?? You should rest and relax for the next 24 hours. We recommend you make arrangements to have an adult stay with you for at least 24 hours after your discharge. Avoid hazardous and strenuous activity. ?? DO NOT DRIVE any vehicle or operate mechanical equipment for 24 hours following the end of your surgery. Even though you may feel normal, your reactions may be affected by the medication you have received. ?? Do not drink alcoholic beverages for 24 hours following surgery. ?? Slowly progress to your regular diet as you feel able. It's not unusual to feel nauseated and/or vomit after receiving anesthesia. If you develop these symptoms, drink clear liquids (apple juice, yovanny gordon, broth, 7-up, etc. ) until you feel better. If your nausea and vomiting persists for 24 hours, please notify your surgeon. ?? All narcotic pain medications, along with inactivity and anesthesia, can cause constipation. Drinking plenty of liquids and increasing fiber intake will help. ?? For any questions of a medical nature, call your surgeon. ?? Do not make important decisions for 24 hours. ?? If you had general anesthesia, you may have a sore throat for a couple of days related to the breathing tube used during surgery. You may use Cepacol lozenges to help with this discomfort. If it worsens or if you develop a fever, contact your surgeon. ?? If you feel your pain is not well managed with the pain medications prescribed by your surgeon, please contact your surgeon's office to let them know so they can address your concerns. CoVid 19 Information We want to give you information regarding Covid. Please consult your primary care provider with any questions you might have. Patient who have symptoms (cough, fever, or shortness of breath), need to isolate for 7 days from when symptoms started OR 72 hours after fever resolves (without fever reducing medications) AND improvement of respiratory symptoms (whichever is longer). ?? Isolate yourself at home (in own room/own bathroom if possible) ?? Do Not allow any visitors ?? Do Not go to work or school ?? Do Not go to zoroastrian, children teacher centers, shopping, or other public places. ?? Do Not shake hands. ?? Avoid close and intimate contact with others (hugging, kissing). ?? Follow CDC recommendations for household cleaning of frequently touched services. After the initial 7 days, continue to isolate yourself from household members as much as possible. To continue decrease the risk of community spread and exposure, you and any members of your household should limit activities in public for 14 days after starting home isolation. You can reference the following CDC link for helpful home isolation/care tips: https://www.cdc.gov/coronavirus/2019-ncov/downloads/10Things.pdf Protect Others: ?? Cover Your Mouth and Nose with a mask, disposable tissue or wash cloth to avoid spreading germs to others. ?? Wash your hands and face frequently with soap and water Call Your Primary Doctor If: Breathing difficulty develops or you become worse. For more information about COVID19 and options for caring for yourself at home, please visit the CDCwebsite at https://www.cdc.gov/coronavirus/2019-ncov/about/ufzar-fnfc-eujz.html For more options for care at [facility], please visit our website at [email or web address] Discharge Instructions: Post-Operative Laparoscopic Inguinal Hernia ACTIVITY ?? Take frequent, short walks and increase your activity gradually. ?? Avoid strenuous physical activity or heavy lifting greater than 15lbs. for 3- 4 weeks. You may climb stairs. ??? You may drive without restrictions when you are not using any prescription pain medication and comfortable in a car. ??? You may return to work/school when you are comfortable without any prescription pain medication. WOUND CARE ??? You may remove your outer dressing or Band-Aids and shower 48 hours after the surgery. Pat your incisions dry and leave open to air. Re-apply dressing (Band-aid or gauze/tape) as needed for comfortor drainage. ??? You may have steri-strips (looks like white tape) on your incision. You may peel off the steri-strip 2 weeks after surgery if they have not peeled off on their own. ??? Do not soak your incisions in a tub or pool for 2 weeks. ??? Do not apply any lotions, creams, or ointments to your incisions. ??? A ridge under incisions is normal and will gradually resolve. DIET ??? Start with liquids, then gradually resume your regular diet as tolerated. ??? Drink plenty of liquids to stay hydrated. PAIN ??? Expect some tenderness and discomfort at the incision sites. Use the prescribed pain medication at your discretion. Expect gradual resolution of your pain over several days. ??? You may take ibuprofen with food (unless you have been told not to) instead of or in addition toyour prescribed pain medication. If you are taking [place] or Percocet, do not take any additional acetaminophen/APAP/Tylenol. ??? Do not drink alcohol or drive while you are taking pain medications. ??? You may apply ice to your incisions in 20 minute intervals as needed for the next 48 hours. After that time, consider switching to heat if you prefer. EXPECTATIONS ?? *For our male patients, you may notice air in your scrotum and/or penis after the surgery. This is due to the gas used during surgery. You can expect some swelling and bruising involving the scrotumand/or penis as well as numbness. These symptoms are expected and should gradually resolve in the next few days. You may use ice to help with the swelling and- try placing a rolled hand towel below your scrotum to help alleviate scrotal discomfort. If you develop significant testicular or penile pain,please call our office and speak with a nurse. ?? Pain medications can cause constipation. Limit use when possible. Take over the counter stool softener/stimulant, such as Colace or Senna, 1-2 times a day with plenty of water. You may take a mild over the counter laxative, such as Miralax or a suppository, as needed. You may discontinue these medications once you are having regular bowel movements and/or are no longer taking your narcotic pain medication. ?? You may have shoulder or upper back discomfort due to the gas used in surgery. This is temporary and should resolve in 48-72 hours. Short, frequent walks may help with this. FOLLOW UP ??? Our office will contact you approximately 2 weeks to check on your progress and answer any questions you may have. If you are doing well, you will not need to return for a follow up appointment. Ifany concerns are identified over the phone, we will help you make an appointment to see a provider. ??? If you have not received a phone call, have any questions or concerns, or would like to be seen,please call us at [phone] and ask to speak with our nurse. We are located at [address] [facility] [address] [place] [id number]. CALL OUR OFFICE IF YOU HAVE: ??? Chills or fever above 101.5??F. ??? Increased redness or drainage at your incisions. ??? Significant bleeding. ??? Pain not relieved by your pain medication or rest. ??? Increasing pain after the first 48 hours. ??? Any other concerns or questions. Revised August 2017 If you have questions or concerns about your procedure, call Dr. Joel at [phone] documented in this encounter Medications at Time of Discharge Medication Sig Dispensed Refills Start Date End Date adapalene (DIFFERIN) 0.1 Apply topically At 0 % external cream Bedtime atomoxetine (STRATTERA) Take 80 mg by 0 80 MG capsule mouth daily. busPIRone HCl (BUSPAR) 30 Take 30 mg by 0 MG tablet mouth 2 times daily calcium carbonate-vitamin Take 1 tablet by 90 tablet 11/2012 D (CALCIUM 500 + D) mouth 3 times 500-400 MG-UNIT TABS daily tabltIndications: Bariatric surgery status, Overweight and obesity(278.0) cetirizine (ZYRTEC) 10 MG Take 10 mg by 0 tablet mouth daily as needed cyanocobalamin 1000 Inject 1 mL (1,000 1 mL 11 07/13/20 13 MCG/ML mcg) into the injectionIndications: muscle every 30 Bariatric surgery status, days Overweight and obesity(278.0) doxylamine (UNISOM) 25 MG Take 50 mg by 0 TABS tablet mouth At Bedtime (take 2 x 25mg) escitalopram (LEXAPRO) 20 Take 20 mg by 0 MG tablet mouth daily fluticasone (FLONASE) 50 [place] 30 mcg in 0 MCG/ACT nasal spray nostril daily as needed gabapentin (NEURONTIN) Take 900 mg by 0 300 MG capsule mouth 3 times daily (takes 3 x 300mg) levETIRAcetam (KEPPRA) Take 500 mg by 0 500 MG tablet mouth 2 times daily lidocaine (LIDODERM) 5 % Place 1 patch onto 0 patch the skin daily as needed Multiple Take 1 tablet by 0 Vitamins-Minerals mouth every (MULTIVITAMIN & MINERAL morning PO)Indications: Bariatric surgery status, Overweight and obesity(278.0) omega 3 1000 MG CAPS Take 1 g by mouth 0 daily ondansetron (ZOFRAN-ODT) Take 4 mg by mouth 0 07/2020 4 MG ODT tab every 6 hours as needed polyethylene glycol Take 1 packet by 0 (MIRALAX) 17 g packet mouth daily SUMAtriptan (IMITREX) 100 Take 100 mg by 0 MG tablet mouth every 8 hours as needed topiramate (TOPAMAX) 100 Take 100 mg by 0 MG tablet mouth At Bedtime vitamin D3 Take 2,000 Units 0 (CHOLECALCIFEROL) 50 mcg by mouth daily (2000 units) tablet dicyclomine (BENTYL) 10 Take 1 capsule (10 240 capsule 1 03/202006/14/2020 MG capsuleIndications: mg) by mouth 4 Abdominal pain, times daily epigastric (before meals and nightly) acetaminophen (TYLENOL) Take 2 tablets 0 04/13/2002/09/2021 325 MG tabletIndications: (650 mg) by mouth Hiatal hernia 4 times daily as needed for pain cyclobenzaprine Take 1-2 tablets 15 tablet 0 04/13/202005/2020 (FLEXERIL) 5 MG (5-10 mg) by mouth tabletIndications: Hiatal 3 times daily as hernia needed for muscle spasms (pain) oxyCODONE (ROXICODONE) 5 Take 1-2 tablets 15 tablet 0 04/1304/03/2021 MG tabletIndications: (5-10 mg) by mouth Hiatal hernia every 4 hours as needed for moderate to severe pain pantoprazole (PROTONIX) TAKE 1 TABLET(40 120 tablet 0 201904/17/2020 40 MG EC MG) BY MOUTH TWICE tabletIndications: LUQ DAILY abdominal pain, Bariatric surgery status potassium chloride ER Take 10 mEq by 0 04/03/2021 (KLOR-CON M) 10 MEQ CR mouth daily tablet syringe, disposable, 1 ML 1 Device every 30 1 each 11/201202/09/2021 MISCIndications: days Bariatric surgery status, Overweight and obesity(278.0) documented as of this encounter Progress Notes Car Joel MD - 04/14/2020 9:25 AM CDT General surgery note She is awake, alert, cooperative, having some snacks. She was brought some monster drink by her family, we talked about the importance of avoiding carbonated, caffeinated, chemically enhance fluids. If he wants to add some fluids low calorie protein drinks is recommended. Otherwise water/flavor water or juices are better option. Her abdomen is soft Pain medication is been effective. Status post laparoscopic hiatal hernia repair. Continue with full liquid diet, oral pain medication. Home today. We will give a prescription for monthly vitamin B12 injections. Josie Medina PA-C - 04/13/2020 8:23 AM CDT General Surgery Progress Note Admission Date: 04/12/2020 Today's Date: 04/13/2020 Assessment: Gricelda Roberts is a 39 year old female POD 1 s/p lap hiatal hernia repair with mesh, lap gastropexy Plan: - Scop patch in place, zofran and compazine available for nausea. Seems to be improving - Advance to full liquid diet today when patient more awake and ready to eat. Discussed plan to stayon full liquids at discharge, possibly advance to pureed foods after discharge if she is tolerating fulls well - Transition to PO pain meds today - oxy, flexeril, tylenol available - No further antibiotics - PCDs while resting, encourage ambulation. Lovenox ordered to start today - Continue IV fluids for now, saline lock once PO intake adequate Dispo: continue to monitor. Possibly home later today if doing well, otherwise likely discharge tomorrow Interval History: Afebrile overnight, VSS on room air. Taking in clear liquids, tolerating OK. Quite a bit of nausea, Scop patch now in place and helpful. Sleepy this morning. Mild abdominal pain controlled with occasional dilaudid. Physical Exam: BP 116/79 Pulse 59 Temp 98 ??F (36.7 ??C) (Oral) Resp 18 Ht 1.651 m (5' 5) Wt 76.1 kg (167 lb 12.8 oz) SpO2 99% BMI 27.92 kg/m?? I/O last 3 completed shifts: In: 3170 [P.O.:1170; I.V.:1999] Out: 175 [Urine:175] General: NAD, sleeping in bed, awakens to touch. Answers questions appropriately, very drowsy Respiratory: non-labored breathing Cardiovascular: pulse regular rhythm, rate 60s Abdomen: soft, appropriately tender around incisions, non distended Incisions: clean, dry, and intact. No erythema or drainage Extremities: no lower extremity edema, no calf tenderness LABS: Recent Labs Lab Test 04/13/20 0715 07/28/13 1600 12/29/12 1605 WBC -- 9.3 11.0 HGB 11.9 14.3 11.5* MCV -- 93 93 PLT 249 285 323 Recent Labs Lab Test 04/13/20 0715 04/12/20 2002 04/12/20 0930 12/29/12 1605 POTASSIUM 3.9 -- 3.3* 4.1 CHLORIDE 112* -- -- 105 CO2 26 -- -- 24 BUN -- -- -- 15 CR -- 0.62 -- 0.61 ANIONGAP 4 -- -- 12.3 Josie Medina PA-C [facility] [phone] Associated attestation - Car Joel MD - 04/13/2020 10:39 AM CDT General surgery note I agree with the documentation of this note. Discussed operative findings with patient. Full liquid diet advancing to soft over the next 7 to 14 days, sooner if desired and easily tolerated. Okay to discharge home later today after full liquid and oral pain medication tolerated. Follow-up in clinic in 2 to 3 weeks. Leonarda Tapia RN - 04/12/2020 10:14 AM CDT Pt primary visitor will be , Amador. Green wristband applied to Amador in pre-op. Jacklyn Jerez - 04/12/2020 7:21 AM CDT Medication History Completed by Medication Scribe Admission medication history interview status for the (Not on file) admission is complete. See [facility] admission navigator for prior to admission medications Medication history sources: Patient, Surescripts and H&P Medication history source reliability: Good Adherence assessment: N/A Not Observed Significant changes made to the medication list: Patient reports no longer taking the following meds (med scribe removed from [facility] med list): -Levothyroxine (pt states her MD discontinued this about 1 month ago) -Vitamin c, Cyclobenzaprine, Diclofenac gel, DHA, Hydrocortisone cream, Lorazepam, Nystatin, Promethazine, Trazodone, Zolmitriptan Additional medication history information: None Medication reconciliation completed by provider prior to medication history? No Time spent in this activity: 35 minutes Prior to Admission medications Medication Sig Last Dose Taking? Auth Provider adapalene (DIFFERIN) 0.1 % external cream Apply topically At Bedtime 04/11/2020 at PM Yes Reported, Patient atomoxetine (STRATTERA) 80 MG capsule Take 80 mg by mouth daily. 04/12/2020 at 0715 Yes Reported, Patient busPIRone HCl (BUSPAR) 30 MG tablet Take 30 mg by mouth 2 times daily 04/12/2020 at 0715 Yes Reported,Patient calcium carbonate-vitamin D (CALCIUM 500 + D) 500-400 MG-UNIT TABS tablt Take 1 tablet by mouth 3 times daily 04/11/2020 at Unknown time Yes Car Joel MD cetirizine (ZYRTEC) 10 MG tablet Take 10 mg by mouth daily as needed MORE THAN 1 WEEK at PRN Yes Reported, Patient cyanocobalamin 1000 MCG/ML injection Inject 1 mL (1,000 mcg) into the muscle every 30 days 04/09/2020Yes Car Joel MD dicyclomine (BENTYL) 10 MG capsule Take 1 capsule (10 mg) by mouth 4 times daily (before meals and nightly) 04/12/2020 at 0715 Yes Car Joel MD doxylamine (UNISOM) 25 MG TABS tablet Take 50 mg by mouth At Bedtime (take 2 x 25mg) 04/11/2020 at PM Yes Reported, Patient escitalopram (LEXAPRO) 20 MG tablet Take 20 mg by mouth daily 04/12/2020 at 0715 Yes Reported, Patient fluticasone (FLONASE) 50 MCG/ACT nasal spray [place] 30 mcg in nostril daily as needed 04/09/2020 at PRN Yes Reported, Patient gabapentin (NEURONTIN) 300 MG capsule Take 900 mg by mouth 3 times daily (takes 3 x 300mg) 04/12/2020 at 0715 Yes Reported, Patient levETIRAcetam (KEPPRA) 500 MG tablet Take 500 mg by mouth 2 times daily 04/12/2020 at 0715 Yes Reported, Patient lidocaine (LIDODERM) 5 % patch Place 1 patch onto the skin daily as needed 04/09/2020 at PRN Yes Reported, Patient Multiple Vitamins-Minerals (MULTIVITAMIN & MINERAL PO) Take 1 tablet by mouth every morning 04/12/2020 at 0715 Yes Reported, Patient omega 3 1000 MG CAPS Take 1 g by mouth daily 04/11/2020 at Unknown time Yes Reported, Patient ondansetron (ZOFRAN-ODT) 4 MG ODT tab Take 4 mg by mouth every 6 hours as needed MORE THAN 1 WEEK atPRN Yes Reported, Patient pantoprazole (PROTONIX) 40 MG EC tablet TAKE 1 TABLET(40 MG) BY MOUTH TWICE DAILY Patient taking differently: Take 40 mg by mouth 2 times daily 04/12/2020 at 0715 Yes Car Joel MD polyethylene glycol (MIRALAX) 17 g packet Take 1 packet by mouth daily 04/11/2020 at Unknown time Yes Reported, Patient potassium chloride ER (KLOR-CON M) 10 MEQ CR tablet Take 10 mEq by mouth daily 04/11/2020 at AM Yes Reported, Patient SUMAtriptan (IMITREX) 100 MG tablet Take 100 mg by mouth every 8 hours as needed MORE THAN 1 WEEK atPRN Yes Reported, Patient topiramate (TOPAMAX) 100 MG tablet Take 100 mg by mouth At Bedtime 04/11/2020 at HS Yes Reported, Patient vitamin D3 (CHOLECALCIFEROL) 50 mcg (2000 units) tablet Take 2,000 Units by mouth daily 04/11/2020 at AM Yes Reported, Patient syringe, disposable, 1 ML MISC 1 Device every 30 days Car Joel MD documented in this encounter Miscellaneous Notes Plan of Care - Jairo Botello RN - 04/14/2020 12:20 PM CDT Neuro: Aox4. Respiratory: Clear LS. Cardiac: WNL. GI/: Bowel sounds audible x4 quads; endorses flatulence. BM unknown to pt. Adequate UOP. Skin: Abd incisions CDI. Pain: Attributed to surgical incisions; refer to FS, MAR. Mobility: Ind. Diet: FL. IVF: - Plan of Care: Pain control; discharge home 04/14. Will continue to monitor. Plan of Care - Kylie Ayoub RN - 04/14/2020 6:30 AM CDT A/Ox4. VSS. LS clear. BS hypo, -flatus, -bm. Voiding adequately. Laps site cdi with adhesive strips and bandaids. Wearing abd binder when up. Managing pain with prn oxycodone. No complaints of nausea this time. Up with sba. On full liquid diet, not taking much in. Plan of Care - Arden Santana RN - 04/13/2020 5:29 PM CDT A/o x4. AVSS on RA. Pain managed w/ oxy. Still having episodes of nausea, managing with zofran. BS hypoactive, -flatus, -BM. 5 lap sites CDI. CMS intact. Up SBA. Voiding. Full liquid diet, appetite poor from lethargy. Will CTM Provider Notification - Arden Santana, RN - 04/13/2020 3:46 PM CDT Paged Josie Medina regarding the patient experiencing nausea upon completion of her meal. Awaiting further recommendations. Recommendations from Josie to monitor patient overnight and control nausea with antiemetics. Utilization Review - Donis Marshall MD - 04/13/2020 11:55 AM CDT Admission Status; Secondary Review Determination Under the authority of the Utilization Management Committee, the utilization review process indicated a secondary review on the above patient. The review outcome is based on review of the medical records, discussions with staff, and applying clinical experience noted on the date of the review. () Inpatient Status Appropriate - This patient's medical care is consistent with medical management for inpatient care and reasonable inpatient medical practice. () Observation Status Appropriate - This patient does not meet hospital inpatient criteria and is placed in observation status. If this patient's primary payer is Medicare and was admitted as an inpatient, Condition Code 44 should be used and patient status changed to observation. (X) Outpatient Overnight Status Appropriate - This patient's medical care is not consistent with medical management for Inpatient or Observation Status. RATIONALE FOR DETERMINATION Patient is a 39 yo female with a h/o hiatal hernia who underwent laparoscopic gastropexy and laparoscopic hiatal hernia repair with mesh placement 04/12. She was placed in the hospital after her surgery for monitoring and pain management. She has required parenteral Dilaudid, but has transitioned to oral medications. Her vital signs are normal and it is anticipated she should be able to be discharged today. She is appropriate for Outpatient Overnight status. I discussed this case with Josie Medina PA-C. The severity of illness, intensity of service provided, expected LOS and risk for adverse outcome make the care complex, high risk and appropriate for hospital admission. The information on this document is developed by the utilization review team in order for the business office to ensure compliance. This only denotes the appropriateness of proper admission status and does not reflect the quality of care rendered. The definitions of Inpatient Status and Observation Status used in making the determination above are those provided in the CMS Coverage Manual, Chapter 1 and Chapter 6, section 70.4. Sincerely, Donis Marshall MD Physician Advisor Utilization Review/ Case Management [facility]. Plan of Care - Douglas Sidhu RN - 04/13/2020 7:59 AM CDT A+Ox4 VSS on room air. LS clear. Bowels hypo, flatus-. Voiding adequately. Lap sites w/ band aids and steri strips CDI. Dilaudid for pain. Zofran for nausea. Clear liquid diet. Up w/ 1. Plan of Care - Bing Livingston RN - 04/12/2020 10:21 PM CDT A&Ox4. VSS weaned to RA. Up with assist of one. Dangled and ambulated to bathroom. Voided. Tolerating clear liquid diet. Pain with IV dilaudid. Abdomen with band aids, ice applied. BS hypo. Brief Op Note - Josie Medina PA-C - 04/12/2020 1:59 PM CDT [facility] Brief Operative Note Pre-operative diagnosis: Hiatal hernia [K44.9] Post-operative diagnosis Same Procedure: LAPAROSCOPIC HIATAL HERNIA REPAIR WITH MESH Laparoscopic gastropexy Surgeon: * Car Joel MD - Primary * Josie Medina PA-C - Assisting Anesthesia: General Estimated blood loss: 10cc Findings: As above. No immediate complications. See operative report for full details. Implants: Implant Name Type Inv. Item Serial No. Telephoto Installer Lot No. LRB No. Used Action MESH BIO-A TISSUE REINFORCEMENT [id number] Mesh MESH BIO-A TISSUE REINFORCEMENT [id number] [employer] N/A 1 Implanted Josie Medina PA-C [employer] [phone] Provider Notification - Leonarda Tapia RN - 04/12/2020 10:[address] Monaco made aware of K+:3.3 in pre-op. No replacement needed. Op Note - Car Joel MD - 04/12/2020 8:55 AM CDT Surgeon: Car Joel MD. WET PLANT OPERATOR: Josie Medina PA-C,The physicians assistant professor of psychology was medically necessary for their expertise in camera management, suctioning, suturing, and retraction. PREOPERATIVE DIAGNOSIS: 1. Hiatal Hernia, POSTOPERATIVE DIAGNOSIS: Same, intra-abdominal adhesions PROCEDURE: 1. Laparoscopic Hiatal Hernia repair 2. Bio-A absorbable mesh placement (hiatal hernia patch) 3. Laparoscopic lysis of adhesions 4. Gastric pouch pexy ANESTHESIA: General Endotracheal Anesthesia COMPLICATIONS: None EBL: 10 ml Events: The patient was taken to the operating room and placed in the supine position. Optiview trocar was placed in the left subcostal position in the midclavicular line and access to abdominal cavity was obtained under visualization. Pneumoperitoneum was then established. After evaluation of the abdominal co ntents from this trocar position, four additional ports were placed. Initial inspection of the abdominal cavity revealed no additional pathology. Adhesions between the liver and the gastric pouch were taken down with electrocautery and blunt dissection. This allows to see hiatal hernia which at this time was empty of any content. With traction on the gastric pouch the p eritoneum lining the diaphragmatic hiatus was incised and the posterior mediastinum entered. We thencircumferentially dissected the gastroesophageal junction from the hiatus. The dissection was followed proximally into the posterior mediastinum, and distally around the gastric pouch. This exposed the right and left judy of the diaphragm. A 46 Spanish bougie was placed through the esophagus, passing through the gastric pouch and the gastrojejunostomy. We then repaired the hiatal hernia with 2-0 nonabsorbable v- lock suture buttressed with bio a material. Having successfully reapproximated the esophageal hiatus, a piece of Bio-A mesh was cut to size. The mesh was introduced and then secured around the esophagus, tacked to the diaphragm with clips. We then used 2-0 Ethibond sutures to pexy the gastric pouch to the anterior surface of the defunctionalized stomach. We then closed the 12 mm port site in the left mid abdomen with 0 vycril using james-domo device. Trocars were removed with out evidence of bleeding as well as the liver retractor and the procedure completed. The wounds found to be hemostatic. The skin was closed using 4-0 absorbable suture. Steri strips were applied to the wounds; the patient was awakened from anesthesia, extubated and taken to recovery instable condition. documented in this encounter Plan of Treatment Not on filedocumented as of this encounter Procedures Procedure Name Priority Date/Time Associated Comments Diagnosis GLUCOSE BY METER Routine 04/14/2020 6:10 AM Hiatal hernia Resu lts for this CDT procedure are i n the results section. ELECTROLYTE PANEL Routine 04/13/2020 7:15 AM Hiatal hernia Res ults for this CDT procedure are i n the results section. PLATELET COUNT Routine 04/13/2020 7:15 AM Hiatal hernia Result s for this CDT procedure are i n the results section. HEMOGLOBIN Routine 04/13/2020 7:15 AM Hiatal hernia Results for this CDT procedure are i n the results section. GLUCOSE Routine 04/13/2020 7:15 AM Hiatal hernia Results for this CDT procedure are i n the results section. CREATININE Routine 04/12/2020 8:02 PM Hiatal hernia Results for this CDT procedure are i n the results section. LAPAROSCOPIC Routine 04/12/2020 1:26 PM Hiatal hernia GASTROPEXY CDT POTASSIUM STAT 04/12/2020 9:30 AM Hiatal hernia Results for this CDT procedure are i n the results section. LAPAROSCOPIC Routine 04/12/2020 5:49 AM Hiatal hernia HERNIORRHAPHY HIATAL CDT BLADDER SCAN RESULT - 04/12/2020 12:00 HIM SCAN AM CDT documented in this encounter Results Glucose by meter (04/14/2020 6:10 AM CDT) athologist Signature Glucose 81 70 - 99 04/14/2020 POINT OF CARE mg/dL 6:16 AM CDT TEST, GLUCOSE Specimen Anatomical Collection Method Collection Time Receive d Time (Source) Location / / Volume Laterality 04/14/2020 6:10 AM 0 6:16 CDT AM CDT Authorizing Provider Result Елена Joel MD LAB - BEAKER POCT Performing Organization Address City/State/ZIP Code Phon e Number [facility] POINT OF CARE TEST, GLUCOSE POINT OF CARE TEST, GLUCOSE Platelet count (04/13/2020 7:15 AM CDT) athologist Signature Platelet Count 249 150 - 450 04/13/2020 [place] 10e9/L 7:42 AM CDT [facility] Specimen Anatomical Collection Method Collection Time Receive d Time (Source) Location / / Volume Laterality Blood specimen 04/13/2020 7:15 AM 020 7:16 (specimen) CDT AM CDT Authorizing Provider Result Елена Joel MD LAB - BLOOD ORDERABLES Performing Organization Address City/[facility]/ZIP Code Phon e Number [facility] [address] [place] [phone] [facility] [address] [place] [phone], [facility] [phone] Glucose (04/13/2020 7:15 AM CDT) athologist Signature Glucose 94 70 - 99 04/13/2020 [place] mg/dL 8:04 AM CDT [facility] Specimen Anatomical Collection Method Collection Time Receive d Time (Source) Location / / Volume Laterality Blood specimen 04/13/2020 7:15 AM 020 7:16 (specimen) CDT AM CDT Car Joel MD LAB - BLOOD ORDERABLES Performing Organization Address City/State/ZIP Code Phon e Number [facility] [address] [place] [address] [facility] [address] [place] [address], [place] [phone] (ABNORMAL) Electrolyte panel (04/13/2020 7:15 AM CDT) athologist Signature Sodium 142 133 - 144 04/13/2020 [place] mmol/L 8:02 AM [facility] Potassium 3.9 3.4 - 5.3 04/13/2020 [place] mmol/L 8:02 AM [facility] Chloride 112 (H) 94 - 109 04/13/2020 [place] mmol/L 8:02 AM [facility] Carbon Dioxide 26 20 - 32 04/13/2020 [place] mmol/L 8:04 AM [facility] Anion Gap 4 3 - 14 04/13/2020 [place] mmol/L 8:04 AM [facility] Specimen Anatomical Collection Method Collection Time Receive d Time (Source) Location / / Volume Laterality Blood specimen 04/13/2020 7:15 AM 020 7:16 (specimen) CDT AM CDT Josie Medina PA-C LAB - BLOOD ORDERABLES Performing Organization Address City/State/ZIP Code Phon e Number [facility] [address] [place] [address] [facility] [address] [place] [address], [place] [phone] Hemoglobin (04/13/2020 7:15 AM CDT) P athologist Signature Hemoglobin 11.9 11.7 - 15.7 04/13/2020 [place] g/dL 7:42 AM T [facility] Specimen Anatomical Collection Method Collection Time Receive d Time (Source) Location / / Volume Laterality Blood specimen 04/13/2020 7:15 AM 7:16 (specimen) CDT AM CDT Josie Medina PA-C LAB - BLOOD ORDERABLES Performing Organization Address City/State/ZIP Code Phon e Number [facility] [address] [phone] [facility] [address] [address], [place] [phone] Creatinine (04/12/2020 8:02 PM CDT) athologist Signature Creatinine 0.62 0.52 - 1.04 04/12/2020 [place] mg/dL 8:36 PM [facility] GFR Estimate >90 >60 04/12/2020 [place] mL/min/{1.7 8:36 PM [facility] 3_m2} [facility] Comment: Non GFR Calc Starting 07/27/2018, serum creatinine ba sed estimated GFR (eGFR) will be calculated using the Chronic Kidney Dise [facility] Epidemiology Collaboration (CKD-EPI) equation. GFR Estimate If >90 >60 mL/min/{1.73_m2} 04/12/2020 8: 36 PM [facility] Comment: GFR Calc Starting 07/27/2018, serum creatinine ba sed estimated GFR (eGFR) will be calculated using the Chronic Kidney Dise [facility] Epidemiology Collaboration (CKD-EPI) equation. Specimen Anatomical Collection Method Collection Time Receive d Time (Source) Location / / Volume Laterality Blood specimen 04/12/2020 8:02 PM 8:03 (specimen) CDT PM CDT Josie Medina PA-C LAB - BLOOD ORDERABLES Performing Organization Address City/State/ZIP Code Phon e Number [facility] [address] [phone] [facility] [address] [place] [address], [place] [phone] (ABNORMAL) Potassium (04/12/2020 9:30 AM CDT) athologist Signature Potassium 3.3 (L) 3.4 - 5.3 04/12/2020 [place] mmol/L 9:55 AM CDT [facility] Specimen Anatomical Collection Method Collection Time Receive d Time (Source) Location / / Volume Laterality Blood specimen 04/12/2020 9:30 AM 020 9:39 (specimen) CDT AM CDT Car Joel MD LAB - BLOOD ORDERABLES Performing Organization Address City/State/ZIP Code Phon e Number [facility] [address] [place] [address] [phone] [facility] [address] [place] [address], [place] [phone] BLADDER SCAN RESULT - HIM SCAN (04/12/2020 12:00 AM CDT) Specimen (Source) Anatomical Location Collection Method / Collectio n Time Received Time / Laterality Volume 04/12/2020 Narrative This result has an attachment that is no t available. Provider Scan IMG IR ORDERABLES documented in this encounter Visit Diagnoses Diagnosis Hiatal hernia - Primary Diaphragmatic hernia without mention of obstruction or gangrene Bariatric surgery status documented in this encounter Admitting Diagnoses Diagnosis Hiatal hernia Diaphragmatic hernia without mention of obstruction or gangrene documented in this encounter Administered Medications Inactive Administered Medications - up to 3 most recent administrations Medication Order MAR Action Action Date Dose Rate Site atomoxetine (STRATTERA) capsule 80 Given 04/14/2020 11:32 AM CDT 80 mg mg 80 mg, Oral, DAILY, First dose on Thu04/13/20 at 0900, Post-procedure Given 04/13/2020 10:41 AM CDT 80 mg busPIRone (BUSPAR) tablet 30 mg Given 04/14/2020 10:20 AM CDT 30 mg 30 mg, Oral, 2 TIMES DAILY, First dose on Thu04/12/20 at 2100, Post-procedure Given 04/13/2020 9:39 PM CDT 30 mg Given 04/13/2020 10:41 AM CDT 30 mg clindamycin (CLEOCIN) infusion 900 New Bag 04/13/2020 4:53 AM CDT 900 mg 50 mL/hr mg Routine, 900 mg, Intravenous, EVERY 8 HOURS, First dose on [place] 04/12/20 at 2000, For 2 doses, Administer first dose 6 hours after last dose (pre-op/intra-op). Must be completed within 24 hours after surgery., Indications: Perioperative Pharmacoprophylaxis, Post-procedure New Bag 04/12/2020 8:32 PM CDT 900 mg 50 mL/hr cyclobenzaprine (FLEXERIL) tablet 5-10 m g Given 04/14/2020 1:39 PM CDT 10 mg 5-10 mg, Oral, 3 TIMES DAILY PRN, muscle spasms, pain, Starting on [place] 04/12/20 at 1725, Post-procedure diphenhydrAMINE (BENADRYL) capsule 25 mg 25 mg, Oral, EVERY 6 HOURS PRN, itching, Starting on [place] 04/12/20 at 1725, Caution to be used when administering multiple Cent ral Nervous System (STUDY LEAD) depressing meds within a short time frame., Post-procedure diphenhydrAMINE (BENADRYL) injection 25 mg 25 mg, Intravenous, EVERY 6 HOURS PRN, i tching, Only give if patient unable to take PO., Starting on [place] 04/12/20 at 1725, Cau tion to be used when administering multiple Central Nervous System (STUDY LEAD) depressing meds within a short time frame. For ordered IV doses 1-50 mg, give IV Push undiluted. Give each 25 mg over a minimum of 1 minute. Extend in non-emergency, Post-procedure enoxaparin ANTICOAGULANT (LOVENOX) injection Given 12/2019 10:20 AM CDT 40 mg 40 mg 40 mg, Subcutaneous, EVERY 24 HOURS, First dose on Thu04/13/20 at 1000, Check to make sure start date/time is prior to 24 hours post op unless documented complication AND no sooner than 22 hours post op if spinal anesthesia used. HOLD if platelet count falls below 50% of baseline or less [id number] and notify provider., Post-procedure Given 04/13/2020 10:42 AM CDT 40 mg escitalopram (LEXAPRO) tablet 20 mg Given 04/14/2020 11:37 AM CDT 20 mg 20 mg, Oral, DAILY, First dose on Thu04/13/20 at 0900, Post-procedure Given 04/13/2020 10:41 AM CDT 20 mg gabapentin (NEURONTIN) capsule 900 mg Given 04/14/2020 8:55 AM CDT 900 mg 900 mg, Oral, 3 TIMES DAILY, First dose on [place] 04/12/20 at 1730, Post-procedure Given 04/13/2020 9:39 PM CDT 900 mg Given 04/13/2020 4:57 PM CDT 900 mg HYDROmorphone (PF) (DILAUDID) injection Given 04/13/2020 7:58 AM CDT 0.5 mg 0.3-0.5 mg 0.3-0.5 mg, Intravenous, EVERY 2 HOURS PRN, other, For optimal opioid multimodal pain management to improve pain control and physical function IF patient cannot take oral opioid., Starting on [place] 04/12/20 at 1725, ~ Administer for pain not controlled by oral opioid. 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 ~ Hold dose for analgesic side effects. ~ Notify provider to assess patient for uncontrolled pain or analgesic side effects. ~ Discontinue within 48 hours of surgery to facilitate transition to oral pain management. For ordered IV doses 0.1-4 mg give IV Push undiluted. Administer each 2mg over 2-5 minutes., Post-procedure Given 04/13/2020 1:02 AM CDT 0.5 mg Given 04/12/2020 5:50 PM CDT 0.3 mg lactated ringers infusion New Bag 04/12/2020 4:25 PM CDT 100 mL/hr at 100 mL/hr, Intravenous, CONTINUOUS, Continue until IV catheter is weaned, PACU/Phase II, Starting on [place] 04/12/20 at 1400, Until [place] 04/12/20 at 1720 lactated ringers infusion New Bag 04/12/2020 5:51 PM CDT 100 mL/hr at 100 mL/hr, Intravenous, CONTINUOUS, Discontinue and saline lock on POD 1 if taking in adequate PO fluids, Post-procedure, Starting on [place] 04/12/20 at 1730, Until 04/14/20 at 1550 levETIRAcetam (KEPPRA) tablet 500 mg Given 04/14/2020 8:55 AM CDT 500 mg 500 mg, Oral, 2 TIMES DAILY, First dose on [place] 04/12/20 at 2100, Post-procedure Given 04/13/2020 9:40 PM CDT 500 mg Given 04/13/2020 10:41 AM CDT 500 mg ondansetron (ZOFRAN) injection 4 mg 4 mg, Intravenous, EVERY 6 HOURS PRN, nausea, vomiting , Administer over 2-5 Minutes, Starting on [place] 04/12/20 at 1725, This is Step 1 of nausea and vomiting management. If nausea not resolved in 15 minutes, go t o Step 2 prochlorperazine (COMPAZINE). Irritant. For ordered IV do ses 0.1-4 mg, give IV Push undiluted over 2-5 minutes., Post-procedure ondansetron (ZOFRAN-ODT) ODT tab 4 mg Given 04/13/2020 2:38 PM CDT 4 mg 4 mg, Oral, EVERY 6 HOURS PRN, nausea, vomiting, Starting on [place] 04/12/20 at 1725, This is Step 1 of nausea and vomiting management. If nausea not resolved in 15 minutes, go to Step 2 prochlorperazine (COMPAZINE). Do not push through foil backing. Peel back foil and gently remove. Place on tongue immediately. Administration with liquid unnecessary With dry hands, peel back foil backing and gently remove tablet. Do not push oral disintegrating tablet through foil backing. Administer immediately on tongue and oral disintegrating tablet dissolves in seconds, then swallow with saliva. Liquid not required., Post-procedure Given 04/13/2020 1:02 AM CDT 4 mg Given 04/12/2020 5:55 PM CDT 4 mg oxyCODONE (ROXICODONE) tablet 5-10 mg Given 04/14/2020 10:20 AM CDT 5 mg 5-10 mg, Oral, EVERY 3 HOURS PRN, moderate to severe pain, Starting on [place] 04/12/20 at 1725, Post-procedure Given 04/14/2020 4:55 AM CDT 5 mg Given 04/14/2020 1:40 AM CDT 5 mg pantoprazole (PROTONIX) EC tablet 40 mg Given 04/14/2020 10:21 AM CDT 40 mg 40 mg, Oral, 2 TIMES DAILY, First dose on [place] 04/12/20 at 2100, DO NOT CRUSH., Post-procedure Given 04/13/2020 9:40 PM CDT 40 mg Given 04/13/2020 10:42 AM CDT 40 mg potassium chloride ER (KLOR-CON M) CR tablet Given 12/2019 11:32 AM CDT 10 mEq 10 mEq 10 mEq, Oral, DAILY, First dose on Thu04/13/20 at 0900, DO NOT CRUSH., Post-procedure Given 04/13/2020 10:40 AM CDT 10 mEq prochlorperazine (COMPAZINE) injection 1 0 mg 10 mg, Intravenous, EVERY 6 HOURS PRN, nausea, vomitin g, Administer over 1-2 Minutes, Starting on Thu04/12/20 at 1725, This is Step 2 of the nausea and vomiting management. For ordered IV doses 0.1-10 mg, give IV push undiluted, each 5 mg over 1 minute., Post-procedure prochlorperazine (COMPAZINE) tablet 10 m g 10 mg, Oral, EVERY 6 HOURS PRN, nausea, vomiting, Starting on Thu04/12/20 at 1725, This is Step 2 of the nausea and vomiting management., Post-procedure scopolamine (TRANSDERM) Patch/Med Applied 04/12/2020 8:32 PM 1 patch Behind Right 72 hr patch 1 patch CDT Ear 1 patch, Transdermal, EVERY 72 HOURS, Administer over 72 Hours, First dose on Thu04/12/20 at 1730, Apply patch to skin, behind ear. Remove every 72 hours. DO NOT CUT PATCH. If dose is for a half patch, RN to remove only half of the backing. Each 1.5 mg patch delivers 1 mg of scopolamine. Reminder: Remove previous patch before applying new patch., Post-procedure scopolamine (TRANSDERM-SCOP) Patch in Pl [facility] First dose on Thu04/12/20 at 1730, Chart every shift, confirming that patch is still in place on patient (no barcode scan needed). See [facility] h order for dose information., Post-procedure sodium chloride (PF) 0.9% PF flush 3 mL Given 04/14/2020 9:00 AM CDT 3 mLs 3 mL, Intracatheter, EVERY 8 HOURS, First dose on Thu04/12/20 at 1730, And Q1H PRN, to lock peripheral IV dormant line., Post-procedure Given 04/13/2020 4:57 PM CDT 3 mLs Given 04/13/2020 10:42 AM CDT 3 mLs topiramate (TOPAMAX) tablet 100 mg Given 04/13/2020 9:40 PM CDT 100 mg 100 mg, Oral, AT BEDTIME, First dose on Palmira 04/12/20 at 2200, Post-procedure Given 04/12/2020 8:34 PM CDT 100 mg documented in this encounter Active and Recently Administered Medications Times are shown in CDT. Scheduled Medication Order 04/12/2020 04/13/2020 04/14/2020 adapalene (DIFFERIN) 0.1 % CREA 2111 (Not Given - Prov ider: Bing Livingston RN - Reason: Patient/family refused) 2141 (Not Given - Provider: Kylie jon RN - Reason: Patient/family refused) Topical, AT BEDTIME, First dose on Palmira at 2200, Patient may use own medication or resume after discharge., Post-procedure atomoxetine (STRATTERA) capsule 80 mg 10 (Given - Provider: Arden Santana RN) 113 (Given - Provider: Jairo Botello RN) 80 mg, Oral, DAILY, First dose on Thu04/13/20 at 0900, Post-proce dure busPIRone (BUSPAR) tablet 30 mg 2031 (Given - Provider: Emmanuel Livingston RN) 104 (Given - Provider: Arden Santana RN)2138 (Given - Provider: Kylie Ayoub RN) 1020 (Given - Provider: Jairo Botello RN) 30 mg, Oral, 2 TIMES DAILY, First dose on Palmira 04/12/20 at 2100, Po st-procedure clindamycin (CLEOCIN) infusion 900 mg (COMPLETED) 945 (Handoff - Provider: Leonarda Tapia RN)113 (Given - Provider: Annette Saeed APRN HOSPICE OFFICE COORDINATOR) Routine, 900 mg, Intravenous, PRE-OP/PRE -PROCEDURE, Starting Palmira 04/12/20 at 0905, For 1 dose, Give first dose within 1 hour PRIOR to incision., Indications: Perioperative Pharmacoprophylaxis, Pre-procedure clindamycin (CLEOCIN) infusion 900 mg (COMPLETED) 2031 (New Bag - Provider: Bing Livingston RN) 045 (New Bag - Provider: Douglas Sidhu RN) Routine, 900 mg, Intravenous, EVERY 8 HO URS, First dose on Thu04/12/20 at 2000, For 2 doses, Administer first dose 6 hours after last dose (pre-op/intra-op). Must be completed within 24 hours after surge ry., Indications: Perioperative Pharmacoprophylaxis, Post-proced ure enoxaparin ANTICOAGULANT (LOVENOX) injection 40 mg 1042 (Given - Provider: Arden Santana RN) 1020 (Given - Provider: Jairo Botello, ANTONIA) 40 mg, Subcutaneous, EVERY 24 HOURS, Fir st dose on Thu04/13/20 at 1000, Check to make sure start date/time is prior to 24 hours post op unless documented complication AND no sooner than 22 hours post op if spinal anesthesia used. HOLD if plate let count falls below 50% of baseline or less [id number]/??[id number] and notify provider., Post-procedure escitalopram (LEXAPRO) tablet 20 mg 1041 (Given - Provider: Arden Santana RN) 1137 (Given - Provider: Jairo Botello, ANTONIA) 20 mg, Oral, DAILY, First dose on Thu04/13/20 at 0900, Post-proce dure gabapentin (NEURONTIN) capsule 900 mg 1914 (Not Given - Provider: Bing Livingston RN - Reason: Nausea - Comment: nausea)2032 (Given - Provider: Bing Livingston, ANTONIA) 1041 (Given - Provider: Arden Santana RN)1657 (Given - Provider: Arden Santana RN)2138 (Given - Provider: Kylie Ayoub RN) 0855 (Given - Provider: Jairo Botello, ANTONIA) 900 mg, Oral, 3 TIMES DAILY, First dose on Thu04/12/20 at 1730, P ost-procedure levETIRAcetam (KEPPRA) tablet 500 mg 2031 (Given - Pro vider: Bnig Livingston RN) 1041 (Given - Provider: Arden Santana RN)2140 (Given - Provider: Kylie Ayoub RN) 0855 (Given - Provider: Jairo Botello RN) 500 mg, Oral, 2 TIMES DAILY, First dose on Thu04/12/20 at 2100, P ost-procedure pantoprazole (PROTONIX) EC tablet 40 mg 2031 (Given - Provider: Bing Livingston, ANTONIA) 1042 (Given - Provider: Arden Santana, ANTONIA)2140 (Given - Provider: Kylie Ayoub, ANTONIA) 1021 (Given - Provider: Jairo Botello, RN) 40 mg, Oral, 2 TIMES DAILY, First dose o n Thu04/12/20 at 2100, DO NOT CRUSH., Post-procedure potassium chloride ER (KLOR-CON M) CR tablet 10 mEq 104 (Given - Provider: Arden Santana, ANTONIA) 1132 (Given - Provider: Jairo Botello, RN) 10 mEq, Oral, DAILY, First dose on Thu at 0900, DO NOT CRUSH., Post-procedure scopolamine (TRANSDERM) 72 hr patch 1 patch(Linked Chaitanya up 1) 2031 (Patch/Med Applied - Provider: Bing Livingston RN) 1350 (Due: Pat ch/Med Removed - Provider: Orders Generic Provider - Comment: Time automatically adjusted from order being discontinued) 1 patch, Transdermal, EVERY 72 HOURS, Ad broadloom weaver over 72 Hours, First dose on Thu04/12/20 at 1730, Apply patch to skin, behind ear. Remove every 72 hours. DO NOT CUT PATCH. If dose is for a half patch, R N to remove only half of the backing. Ea ch 1.5 mg patch delivers 1 mg of scopolamine. Reminder: Remove previous patch before applying new patch., Post-procedure scopolamine (TRANSDERM-SCOP) Patch in Place(Linked Chaitanya up 1) 2052 (Patch in Place - Provider: Bing Livingston, ANTONIA) 005 (Patch in Place - Provider: Douglas Sidhu RN)1042 (Patch in Place - Provider: Arden Santana, ANTONIA)1657 (Patch in Place - Provider: Arden Santana, ANTONIA) 0057 (Patch in Place - Provider: Kylie Ayoub, ANTONIA)0855 (Patch in Place - Provider: Jairo Botello, RN) First dose on Thu04/12/20 at 1730, Chart every shift, confirming that patch is still in place on patient (no barcode scan needed). See patch order for dose information., Post-procedure sodium chloride (PF) 0.9% PF flush 3 mL 1849 (Not Give n - Provider: Bing Livingston RN - Reason: IV Infusing) 0052 (Not Given - Provider: Douglas kwon RN - Reason: IV Infusing)1042 (Given - Provider: Arden Santana, ANTONIA)1657 (Given - Provider: Arden Santana RN) 0057 (Not Given - Provider: Kylie jon RN - Reason: Patient sleeping)0900 (Given - Provider: Jairo Botello, ANTONIA) 3 mL, Intracatheter, EVERY 8 HOURS, Firs t dose on Palmira 04/12/20 at 1730, And Q1H PRN, to lock peripheral IV dormant line., Post-procedure topiramate (TOPAMAX) tablet 100 mg 2033 (Given - Provi main: Bing Livingston RN)0 (Canceled Entry - Provider: Bing Livingston RN - Comment: pt request meds early to sleep) 0 (Given - Provider: Kylie Ayoub RN) 100 mg, Oral, AT BEDTIME, First dose on Palmira 04/12/20 at 2200, Post -procedure Continuous Medication Order 04/12/2020 04/13/2020 04/14/2020 lactated ringers infusion (CANCELED) 1625 (New Bag - P rovider: Darryl Goldberg, ANTONIA) at 100 mL/hr, Intravenous, CONTINUOUS, C ontinue until IV catheter is weaned, PACU/Phase II, Starting Palmira 04/12/20 at 1400, Until Palmira 04/12/20 at 1720 lactated ringers infusion 1751 (New Bag - Provider: Bing solano RN) 1257 (Stopped - Provider: Jairo Botello RN) at 100 mL/hr, Intravenous, CONTINUOUS, D iscontinue and saline lock on POD 1 if taking in adequate PO fluids, Post-procedure, Starting Palmira 04/12/20 at 1730, Until 04/14/20 at 1550 PRN Medication Order 04/12/2020 04/13/2020 04/14/2020 acetaminophen (TYLENOL) tablet 650 mg 650 mg, Oral, 4 TIMES DAILY PRN, mild pa in, fever, Starting Palmira 04/12/20 at 1725, Maximum acetaminophen dose from all sources = 75 mg/kg/day not to exceed 4 grams/day., Post-procedure cyclobenzaprine (FLEXERIL) tablet 5-10 mg 1339 (Given - Provider: Jairo Botello, ANTONIA) 5-10 mg, Oral, 3 TIMES DAILY PRN, muscle spasms, pain, Starting Palmira 04/12/20 at 1725, Post-procedure diphenhydrAMINE (BENADRYL) capsule 25 mg(Linked Group 2) 25 mg, Oral, EVERY 6 HOURS PRN, itching, Starting Palmira 04/12/20 at 1725, Caution to be used when administering multiple Central Nervous System (STUDY LEAD) depressing meds within a short time frame., Post-procedure diphenhydrAMINE (BENADRYL) injection 25 mg(Linked Group 2) 25 mg, Intravenous, EVERY 6 HOURS PRN, i tching, Only give if patient unable to take PO., Starting Palmira 04/12/20 at 1725, Caution to be used when administering multiple Central Nervous System (STUDY LEAD) depressi ng meds within a short time frame. For o rdered IV doses 1-50 mg, give IV Push undiluted. Give each 25mg over a minimum of 1 minute. Extend in non-emergency, Post-procedure doxylamine (UNISOM) tablet 25-50 mg 25-50 mg, Oral, AT BEDTIME PRN, sleep, S tarting Palmira 04/12/20 at 1725, Post-procedure hetastarch 6% (HESPAN) in 0.9% NaCl BOLUS 500 mL Intravenous, 500 mL, EVERY 8 HOURS PRN, other, for urine output less than 120 mL per 4 hours, Starting Palmira 04/12/20 at 1725, Post-procedure HYDROmorphone (PF) (DILAUDID) injection 0.3-0.5 mg 175 0 (Given - Provider: Bing Livingston, ANTONIA) 0102 (Given - Provider: Douglas Sidhu RN)0758 (Given - Provider: rAden Santana RN) 0.3-0.5 mg, Intravenous, EVERY 2 HOURS P RN, other, For optimal opioid multimodal pain management to improve pain control and physical function IF patient cannot take oral opioid., Starting Palmira 04/12/20 at 1725, ~ Administer for pain not control led by oral opioid. 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 ~ Hold dose for analgesic side effects. ~ Notify provider to assess patient for uncontrolled pain or analgesic si de effects. ~ Discontinue within 48 hour s of surgery to facilitate transition to oral pain management. For ordered IV doses 0.1-4 mg give IV Push undiluted. Administer each 2mg over 2-5 minutes., Post-procedure lidocaine (LMX4) cream Topical, EVERY 1 HOUR PRN, pain, with VA D insertion or accessing implanted port., Starting Palmira 04/12/20 at 1725, Do NOT give if patient has a history of allergy to any local anesthetic or any deana prod uct. Apply at least 30 minutes prior to VAD insertion or port access. In divided doses as needed for size of site for insertion with MAX Dose: 2.5 g (?? of 5 g tube), Post-procedure lidocaine 1 % 0.1-1 mL 0.1-1 mL, Other, EVERY 1 HOUR PRN, mild pain with VAD insertion., Starting Palmira 04/12/20 at 1725, Do NOT give if patient has a history of allergy to any local anesthetic or any deana product. MAX dose 1 mL subcutaneous OR intradermal in divide d doses as needed for VAD insertion., Post-procedure naloxone (NARCAN) injection 0.1-0.4 mg 0.1-0.4 mg, Intravenous, EVERY 2 MIN PRN , opioid reversal, Starting Palmira 04/12/20 at 1725, For respiratory rate LESS than or EQUAL to 8. Partial reversal dose: 0.1 mg titrated q 2 minutes for Analgesia Kee e Effects Monitoring Sedation Level of 3 (frequently drowsy, arousable, drifts to sleep during conversation).Full reversal dose: 0.4 mg bolus for Analgesia Side Effects Monitoring Sedation Level of 4 (s omnolent, minimal or no response to stim ulation). For ordered IV doses 0.1-2mg give IVP. Give each 0.4mg over 15 seconds in emergency situations. For non- emergent situations further dilute in 9mL of NS to facilitate titration of response., Post-procedure ondansetron (ZOFRAN) injection 4 mg(Linked Group 3) 17 55 (See Alternative - Provider: Bing Livingston, ANTONIA) 0102 (See Alternative - Provider: Douglas Sidhu, ANTONIA)1438 (See Alternative - Provider: Edmond Mcgee, ANTONIA) 4 mg, Intravenous, EVERY 6 HOURS PRN, na usea, vomiting, Administer over 2-5 Minutes, Starting Palmira 04/12/20 at 1725, This is Step 1 of nausea and vomiting management. If nausea not resolved in 15 minutes, go to Step 2 prochlorperazine (COMPAZINE ). Irritant. For ordered IV doses 0.1-4 mg, give IV Push undiluted over 2-5 minutes., Post-procedure ondansetron (ZOFRAN-ODT) ODT tab 4 mg(Linked Group 3) 1755 (Given - Provider: Bing Livingston RN) 0102 (Given - Provider: Douglas Sidhu, ANTONIA)1438 (Given - Provider: Edmond Mcgee RN) 4 mg, Oral, EVERY 6 HOURS PRN, nausea, v omiting, Starting Palmira 20 at 1725, This is Step 1 of nausea and vomiting management. If nausea not resolved in 15 minutes, go to Step 2 prochlorperazine (XIMENA ZINE). Do not push through foil backing. Peel back foil and gently remove. Place on tongue immediately. Administration with liquid unnecessary With dry hands, peel back foil backing and gently remove ta blet. Do not push oral disintegrating ta blet through foil backing. Administer immediately on tongue and oral disintegrating tablet dissolves in seconds, then swallow with saliva. Liquid not required., Post-procedure oxyCODONE (ROXICODONE) tablet 5-10 mg 10 40 (Given - Provider: Arden Santana RN)1438 (Given - Provider: Edmond Mcgee RN)2140 (Given - Provider: Kylie Ayoub RN) 0140 (Given - Provider: Kylie velez RN)0455 (Given - Provider: Kylie Ayoub RN)1020 (Given - Provider: Jairo Botello RN) 5-10 mg, Oral, EVERY 3 HOURS PRN, modera te to severe pain, Starting Palmira 04/12/20 at 1725, Post-procedure prochlorperazine (COMPAZINE) injection 10 mg(Linked Group 4) 10 mg, Intravenous, EVERY 6 HOURS PRN, n ausea, vomiting, Administer over 1-2 Minutes, Starting Palmira 04/12/20 at 1725, This is Step 2 of the nausea and vomiting management. For ordered IV doses 0.1-10 mg, g jennie IV push undiluted, each 5 mg over 1 minute., Post-procedure prochlorperazine (COMPAZINE) tablet 10 mg(Linked Group 4) 10 mg, Oral, EVERY 6 HOURS PRN, nausea, vomiting, Starting Palmira 04/12/20 at 1725, This is Step 2 of the nausea and vomiting management., Post-procedure simethicone (MYLICON) suspension 100 mg 100 mg, Oral, 4 TIMES DAILY PRN, other, Works best after meals., Starting Palmira 04/12/20 at 1725, May administer this PO medication the day of surgery. Do NOT have to wait until POD 1., Post-procedure sodium chloride (PF) 0.9% PF flush 3 mL 3 mL, Intracatheter, EVERY 1 MIN PRN, li ne flush, for peripheral IV flush post IV meds, Starting Palmira 04/12/20 at 1725, Post-procedure sodium chloride 0.9% (bag) irrigation (CANCELED) 1158 (Given - Provider: Car Joel MD) PRN, Starting Palmira 04/12/20 at 1158, Intra-procedure sodium chloride 0.9% (bottle) irrigation (CANCELED) 11 58 (Given - Provider: Car Joel MD) PRN, Starting Palmira 04/12/20 at 1158, Intra-procedure Linked Groups Order Group 1: scopolamine (TRANSDERM) 72 hr patch 1 patchJump to med 1 patch, Transdermal, EVERY 72 HOURS, Ad broadloom weaver over 72 Hours, First dose on Palmira 04/12/20 at 1730
Apply patch to skin, behind ear. Remove every 72 hours. DO NOT CUT PATCH. If dose is for a half patch, RN to remove o nly half of the backing. Each 1.5 mg patch delivers 1 mg of scopolamine. Reminder: Remove previous patch before applying new patch.
Post-procedure And scopolamine (TRANSDERM-SCOP) Patch in PlaceJump to med First dose on Palmira 04/12/20 at 1730
Mattie t every shift, confirming that patch is still in place on patient (no barcode scan needed). See patch order for dose information.
Post-procedure Group 2: diphenhydrAMINE (BENADRYL) capsule 25 mgJump to med 25 mg, Oral, EVERY 6 HOURS PRN, itching, Starting Palmira 04/12/20 at 1725
Caution to be used when administering multiple Central Nervous System (STUDY LEAD) depressing meds within a short time frame.
Post-procedure Or diphenhydrAMINE (BENADRYL) injection 25 mgJump to med 25 mg, Intravenous, EVERY 6 HOURS PRN, i tching, Only give if patient unable to take PO., Starting Palmira 04/12/20 at 1725
Caution to be used when administering multiple Central Nervous System (STUDY LEAD) depressing meds within a short time fram e. For ordered IV doses 1-50 mg, give IV Push undiluted. Give each 25mg over a minimum of 1 minute. Extend in non-emergency
Post-procedure Group 3: ondansetron (ZOFRAN-ODT) ODT tab 4 mgJump to med 4 mg, Oral, EVERY 6 HOURS PRN, nausea, v omiting, Starting Palmira 04/12/20 at 1725
This is Step 1 of nausea and vomiting management. If nausea not resolved in 15 minutes, go to Sherwin p 2 prochlorperazine (COMPAZINE). Do not push through foil backing. Peel back foil and gently remove. Place on tongue immediately. Administration with liquid unnecessary With dry hands, peel ba ck foil backing and gently remove tablet . Do not push oral disintegrating tablet through foil backing. Administer immediately on tongue and oral disintegrating tablet dissolves in seconds, then swallow with saliva. Liquid not required.
Pos t-procedure Or ondansetron (ZOFRAN) injection 4 mgJump to med 4 mg, Intravenous, EVERY 6 HOURS PRN, na usea, vomiting, Administer over 2-5 Minutes, Starting Palmira 04/12/20 at 1725
This is Step 1 of nausea and vomiting management. If nausea n ot resolved in 15 minutes, go to Step 2 prochlorperazine (COMPAZINE). Irritant. For ordered IV doses 0.1-4 mg, give IV Push undiluted over 2-5 minutes.
Post-procedure Group 4: prochlorperazine (COMPAZINE) injection 10 mgJump to med 10 mg, Intravenous, EVERY 6 HOURS PRN, n ausea, vomiting, Administer over 1-2 Minutes, Starting Palmira 04/12/20 at 1725
This is Step 2 of the nausea and vomiting management. For ordered IV d oses 0.1-10 mg, give IV push undiluted, each 5 mg over 1 minute.
Post-procedure Or prochlorperazine (COMPAZINE) tablet 10 mgJump to med 10 mg, Oral, EVERY 6 HOURS PRN, nausea, vomiting, Starting Palmira 04/12/20 at 1725
This is Step 2 of the nausea and vomiting management.
Post-procedure documented in this encounter Care Teams Business Control Specialist Relationship Specialty Start Date End Date Matheus Feliciano MD PCP - General 03/23/[address] [place] [id number] documented as of this encounter
--- OUTSIDE RECORDS SUMMARY | 2022-04-10 14:42 | XMS_ITS | Encounter Summary ---
:1980 Author Organization [facility] Address [address] [place] [address]. 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 documented as of this encounter Plan of Treatment Not on filedocumented as of this encounter Visit Diagnoses Not on filedocumented in this encounter Care Teams Accounts Receivable Clerk Relationship Specialty Start Date End Date Matheus Feliciano MD PCP - General 03/23/20 [facility] [address] [id number] Car Joel MD Assigned Surgical Provider 06/01/20 [address] [place] [id number] documented as of this encounter
--- OUTSIDE RECORDS SUMMARY | 2022-04-10 14:42 | XMS_ITS | Encounter Summary ---
:1980 Author Organization [facility] Address [address] [place] [address]. [place] [address] Care Team Providers Name Role Phone Matheus Feliciano MD Primary Care Provider Reason for Visit Reason Onset Date Comments request for meds 05/04/2020 Encounter Details Date Type Department Care Team Description 05/04/2020 Telephone [facility] Surgery Car Joel MD request for meds Clinic [place] [address] [place] [address] [place] [address] [phone] Social History Tobacco Use Types Packs/Day Years Used Date Former Smoker Cigarettes Smokeless Tobacco: Never Used Comments: as a child Alcohol Use Standard Drinks/Week Comments No 0 (1 standard drink = 0.6 oz pure alcoho l) Sex Assigned at Date Recorded Female 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 documented as of this encounter Miscellaneous Notes Telephone Encounter - Jahaira Frost RN - 05/04/2020 12:50 PM CDT Called patient's and notified him that rx for #10 has been sent to [facility] in [facility]. Jahaira Frost, RN-BSN Telephone Encounter - Richa Villasenor - 05/04/2020 11:52 AM CDT Patient had surgery w/LEL 04/12/20 lap hernia repair Would like refill on Cyclobenzaprine Amador (spouse)[phone] Pharmacy is [facility] in [place], [place] documented in this encounter Plan of Treatment Not on filedocumented as of this encounter Visit Diagnoses Diagnosis Postoperative pain - Primary Other acute postoperative pain Hiatal hernia Diaphragmatic hernia without mention of obstruction or gangrene documented in this encounter Care Teams Fibrous Plasterer Relationship Specialty Start Date End Date Matheus Feliciano MD PCP - General 03/23/[address] [place] [address] documented as of this encounter
--- OUTSIDE RECORDS SUMMARY | 2022-04-10 14:42 | XMS_ITS | Encounter Summary ---
:1980 Author Organization [facility] Address [facility] [place] [address] Care Team Providers Name Role Phone Matheus Feliciano MD Primary Care Provider Reason for Visit Reason Comments Post-Op - General Surgery herina repair Encounter Details Date Type Department Care Team Description 05/16/[address] 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 documented as of this encounter Progress Notes Cra Joel MD - 05/16/2020 2:30 PM CDT General surgery follow-up note Since last visit Mrs. Roberts has continued to do well. Tolerating her diet, staying hydrated. Having bowel function still once to twice a week but that used to be her baseline. Incisions are well-healed, small tail of suture was removed from bothersome incision. No evidence ofinfection or hernia. Good recovery after laparoscopic hiatal hernia repair Regular bariatric diet Follow-up as needed Please call if you have any questions documented in this encounter Plan of Treatment Not on filedocumented as of this encounter Visit Diagnoses Diagnosis Surgical followup visit - Primary Follow-up examination, following unspeci fied surgery documented in this encounter Care Teams Bias Binding Folder Relationship Specialty Start Date End Date Matheus Feliciano MD PCP - General 03/23/[address] [id number] documented as of this encounter
--- OUTSIDE RECORDS SUMMARY | 2022-04-10 14:42 | XMS_ITS | Encounter Summary ---
:1980 Author Organization [facility] Address [address] [place] [address] Care Team Providers Name Role Phone Matheus Feliciano MD Primary Care Provider Encounter Details Date Type Department Care Team Description 05/25/2020 Virtual Visit [facility] 3, Sh Wl Diet, Bariatr ic surgery status; Surgical Weight Loss RD Class 1 obesity due to excess calories without serious comorbidity with body mass index (BMI) of 30.0 to 30.9 in adult; [facility] Malnutrition following gastr ointestinal surgery [address] [facility] [address] [place] [address] Social History Tobacco Use Types Packs/Day Years Used Date Former Smoker Cigarettes Smokeless Tobacco: Never Used Comments: as a child Alcohol Use Standard Drinks/Week Comments No 0 (1 standard drink = 0.6 oz pure alcoho l) Sex Assigned at Date Recorded Female 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 documented as of this encounter Last Filed Vital Signs Vital Sign Reading Time Taken Comments Blood Pressure - - Pulse - - Temperature - - Respiratory Rate - - Oxygen Saturation - - Inhaled Oxygen Concentration - - Weight 68 kg (150 lb) 05/28/2020 9:44 AM CDT Height 165.1 cm (5' 5) 05/28/2020 9:44 AM CDT Body Mass Index 24.96 05/28/2020 9:44 AM CDT documented in this encounter Progress Notes Charlene Richmond - 05/25/2020 1:30 PM CDT Gricelda Roberts is a 39 year old female who is being evaluated via a billable video visit. The patient has been notified of following: This video visit will be conducted via a call between you and your physician/provider. We have found that certain health care needs can be provided without the need for an in-person physical exam. This service lets us provide the care you need with a video conversation. If a prescription is necessarywe can send it directly to your pharmacy. If lab work is needed we can place an order for that and you can then stop by our lab to have the test done at a later time. Video visits are billed at different rates depending on your insurance coverage. Please reach out toyour insurance provider with any questions. If during the course of the call the physician/provider feels a video visit is not appropriate, you will not be charged for this service. Patient has given verbal consent for Video visit? Yes How would you like to obtain your AVS? MyChart If you are dropped from the video visit, the video invite should be resent to: Text to cell phone: [phone] Will anyone else be joining your video visit? No Video-Visit Details Type of service: Video Visit Video Start Time:1:29pm Video End Time: 1:54pm Originating Location (pt. Location): Home Distant Location (provider location): Provider Remote Setting Platform used for Video Visit: [facility] NUTRITION POST OP APPOINTMENT DATE OF VISIT: May 25, 2020 Gricelda Roberts 1980 female [id number] 39 year old ASSESSMENT: REASON FOR VISIT: Gricelda is a 39 year old year old female presents today for 9 year PO nutrition follow-up appointment.Patient is accompanied by self. DIAGNOSIS: Status post gastric bypass surgery. Obesity Normal BMI ANTHROPOMETRICS: Initial Weight: 307.6 lbs Height: 5' 5 Current Weight: 150 lbs 0 oz BMI: Body mass index is 24.96 kg/m??. VITAMINS AND MINERALS: 1 Multivitamin with Minerals (pt unsure of dose) mg Calcium With Vitamin D - 1x/day (pt unsure of dose) International units Vitamin D 1000 mcg Vitamin B-12 injection NUTRITION HISTORY: Breakfast: muffin cereal + almond milk Lunch: (skips) Supper: pork chops + green beans + mashed potatoes Snacks: fruit Fluids consumed: Water (60oz), [place] Instant Breakfast (occasionally) Consuming liquid calories: Yes Protein intake: 30-40 grams/day Tolerate regular texture food: Yes Any foods not tolerated details: Yes If any food not tolerated: rice Portion size: 1/2-1 cup Take 20-30 minutes to consume each meal: Yes Eat protein foods first: No Fluids and meals separate by at least 30 minutes: Yes Chew foods thoroughly: Yes Tolerating diet: Yes Drinking high protein supplements: No Consuming snacks per day: 1-2 Additional Information: Pt with no RD follow up since 2012. Overall was maintaining weight at ~180 lbs until developing hiatal hernia over the last year. Recently repaired and now tolerating food againand would like to maintain current weight. Reviewed appropriate portions and protein needs. Discussed vitamin/mineral recommendations. Pt also reports symptoms consistent with late dumping/reactive hypoglycemia following AM cereal. Discussed the importance of protein with meals and small portions for starches. PHYSICAL ACTIVITY: Type: gym membership - stationary bike, walking/running on treadmill, swimming Frequency (days per week): 3 Duration (min): 30-60 DIAGNOSIS: Previous Nutrition Diagnosis: Altered gastrointestinal function related to alteration in gastrointestinal structure as evidenced by history of gastric bypass surgery.- no change Previous goals: (remote) Current Nutrition Diagnosis: Altered gastrointestinal function related to alteration in gastrointestinal structure as evidenced by history of gastric bypass surgery. INTERVENTION: Nutrition Prescription: Eat 3 meals a day at regular intervals. Consume 60-90 grams of protein daily. Follow post-surgical vitamin and mineral protocol. Assessed learning needs and learning preferences. GOALS: Eat 3 meals/day Include 3 food groups at each meal Limit starches to 1/4c Follow-Up: Recommend annual follow up visits to assist with lifestyle changes or per insurance. Implementation: Discussed progress toward previous goals; reinforced importance of following bariatric lifestyle changes. NUTRITION MONITORING AND EVALUATION: Anticipated compliance: good Verbalized good understanding. Follow up: Patient to follow up in 12 months. 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
--- OUTSIDE RECORDS SUMMARY | 2022-04-10 14:42 | XMS_ITS | Encounter Summary ---
:1980 Author Organization [facility] Address [address] [place] [address]. 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 documented as of this encounter Plan of Treatment Not on filedocumented as of this encounter Visit Diagnoses Not on filedocumented in this encounter Care Teams Alpine Guide Relationship Specialty Start Date End Date Matheus Feliciano MD PCP - General 03/23/[address] [id number] documented as of this encounter
--- OUTSIDE RECORDS SUMMARY | 2022-04-10 14:42 | XMS_ITS | Encounter Summary ---
:1980 Author Organization [facility] Address [address] [place] [address] Care Team Providers Name Role Phone Matheus Feliciano MD Primary Care Provider Car Joel MD Unavailable Reason for Referral (Routine) - Closed Specialty Diagnoses / Procedures Referred By Contact Refer red To Contact Diagnoses Bariatric surgery status Postsurgical malabsorption Rehana Anaya RN Procedures Ferritin [facility] [address] [place] [address] Referral ID Status Reason Start Date Expiration Date Visits Requ ested Visits Authorized [id number] Closed 01/24/2021 01/24/2022 1 1 (Routine) - Closed Specialty Diagnoses / Procedures Referred By Contact Refer red To Contact Diagnoses Bariatric surgery status Postsurgical malabsorption Rehana Anaya RN Procedures Iron and Iron Binding Capacity [facility] [address] [place] [address] Referral ID Status Reason Start Date Expiration Date Visits Requ ested Visits Authorized [id number] Closed 01/24/2021 01/24/2022 1 1 (Routine) - Closed Specialty Diagnoses / Procedures Referred By Contact Refer red To Contact Diagnoses Bariatric surgery status Postsurgical malabsorption Rehana Anaya RN Procedures Iron [facility] [address] [place] [id number] Referral ID Status Reason Start Date Expiration Date Visits Requ ested Visits Authorized [id number] Closed 01/24/2021 01/24/2022 1 1 (Routine) - Closed Specialty Diagnoses / Procedures Referred By Contact Refer red To Contact Diagnoses Bariatric surgery status Postsurgical malabsorption Rehana Anaya RN Procedures Parathyroid Hormone Intact [facility] [address] [place] [id number] Referral ID Status Reason Start Date Expiration Date Visits Requ ested Visits Authorized [id number] Closed 01/24/2021 01/24/2022 1 1 (Routine) - Closed Specialty Diagnoses / Procedures Referred By Contact Refer red To Contact Diagnoses Bariatric surgery status Postsurgical malabsorption Rehana Anaya RN Procedures Vitamin D Screen [facility] [address] [place] [address] Referral ID Status Reason Start Date Expiration Date Visits Requ ested Visits Authorized [id number] Closed 01/24/2021 01/24/2022 1 1 (Routine) - Closed Specialty Diagnoses / Procedures Referred By Contact Refer red To Contact Diagnoses Bariatric surgery status Postsurgical malabsorption Rehana Anaya RN Procedures Vitamin B12 [facility] [address] [place] [id number] Referral ID Status Reason Start Date Expiration Date Visits Requ ested Visits Authorized [id number] Closed 01/24/2021 01/24/2022 1 1 (Routine) - Closed Specialty Diagnoses / Procedures Referred By Contact Refer red To Contact Diagnoses Bariatric surgery status Postsurgical malabsorption Rehana Anaya RN Procedures Vitamin A (Bypass/Sleeve) [facility] [address] [place] [id number] Referral ID Status Reason Start Date Expiration Date Visits Requ ested Visits Authorized [id number] Closed 01/24/2021 01/24/2022 1 1 Reason for Visit Reason Onset Date Comments Patient Request 01/24/2021 Encounter Details Date Type Department Care Team Description 01/24/2021 Telephone [facility] Surgical Rehana Anaya, Patient Request Weight Loss Clinic E olga RN [address] [facility] [address] [facility] [address] [place] [phone] [place] [address] [phone] Social History Tobacco Use Types Packs/Day Years Used Date Former Smoker Cigarettes Smokeless Tobacco: Never Used Comments: as a child Alcohol Use Standard Drinks/Week Comments No 0 (1 standard drink = 0.6 oz pure alcoho l) Sex Assigned at Date Recorded Female 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 documented as of this encounter Miscellaneous Notes Telephone Encounter - Rehana Anaya RN - 01/24/2021 4:49 PM CDT Received reply from Dr. Joel and KANWAL: Order labs for nutrition. Vitamin B12, Vitamin A, Vitamin D, PTH, Iron Panel. He would like to see any recent labs patient had done as well as films of CT and Xray. Called patient and spoke with her and . Relayed above information to them. Will fax orders to her [facility] and Dr. Feliciano at [phone]. Verified the orders went through at 5:15 PM via Right Fax. This verbal okay to fax labs was given by patient as well as requested by her. Will MC what labs will be drawn to patient. Patient verbalized understanding and is agreeable to plan. Rehana Bryan MS, RD, RN Telephone Encounter - Rehana Anaya RN - 01/24/2021 2:57 PM CDT Patient returned call: States PCP worried due to made trip into the ED - kidney stone into bladder that have not passed. Had pancreatitis and may have had a focal seizure and weight loss. Also has a difficult time with breathing and feels pain on the left side of her chest. CT and xray and EKG all done at [facility] - states was told that all results looked NL. Has been having issues since November and weight was 169# in November and 139# now. Did hiatal hernia repair in April of 2020. PCP worried about weight loss and wants to see the surgeon. Trying to get in sooner than what call center offering. Patient able to get video visit with surgeon at earliest 02/06/21 at 1415. Patient has surgery that day and can only do video visit due to distance of travel. Requested patient have CT and Xray sent to clinic for surgeon to review prior to visit. Will update surgeon re: upcoming visit. Rehana Bryan MS, RD, RN Addendum Note - Rehana Anaya RN - 01/24/2021 2:55 PM CDT Addended by: REHANA REDDY R on: 01/24/2021 05:29 PM Modules accepted: Orders, SmartSet documented in this encounter Plan of Treatment Scheduled Orders Name Type Priority Associated Diagnoses Order S chedule Vitamin A Lab Routine Bariatric surger y status Expected: 01/24/2021, (Bypass/Sleeve) Postsurgical malabsorptio n Expires: 07/23/2021 Vitamin B12 Lab Routine Bariatric surger y status Expected: 01/24/2021, Postsurgical malabsorption E xpires: 01/24/2022 Vitamin D Screen Lab Routine Bariatric surge ry status Expected: 01/24/2021, Postsurgical malabsorption E xpires: 01/24/2022 Parathyroid Hormone Lab Routine Bariatric oconnell rgery status Expected: 01/24/2021, Intact Postsurgical malabsorption E xpires: 01/24/2022 Iron Lab Routine Bariatric surger y status Expected: 01/24/2021, Postsurgical malabsorption E xpires: 01/24/2022 Iron and Iron Binding Lab Routine Bariatric surgery status Expected: 01/24/2021, Capacity Postsurgical malabsorption E xpires: 01/24/2022 Ferritin Lab Routine Bariatric surger y status Expected: 01/24/2021, Postsurgical malabsorption E xpires: 01/24/2022 documented as of this encounter Visit Diagnoses Diagnosis Bariatric surgery status Postsurgical malabsorption Other and unspecified postsurgical nonab sorption documented in this encounter Care Teams Rental Manager Relationship Specialty Start Date End Date Matheus Feliciano MD PCP - General 03/23/20 [facility] [address] [facility] [place] [id number] Car Joel MD Assigned Surgical Provider 06/01/20 [address] [place] [id number] documented as of this encounter
--- OUTSIDE RECORDS SUMMARY | 2022-04-10 14:42 | XMS_ITS | Encounter Summary ---
:1980 Author Organization [facility] Address [address] [place] [address]. [place] [address] Care Team Providers Name Role Phone Matheus Feliciano MD Primary Care Provider Car Joel MD Unavailable Encounter Details Date Type Department Care Team Description 01/23/2021 Telephone [facility] Surgical Michael, Lon Alexander, Weight Loss Clinic E olga PA-C [address] [facility] [address] [facility] [address] [place] [address] [place] [address] [phone] Social History Tobacco Use Types Packs/Day Years Used Date Former Smoker Cigarettes Smokeless Tobacco: Never Used Comments: as a child Alcohol Use Standard Drinks/Week Comments No 0 (1 standard drink = 0.6 oz pure alcoho l) Sex Assigned at Date Recorded Female 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 documented as of this encounter Miscellaneous Notes Telephone Encounter - Rehana Anaya RN - 01/24/2021 9:15 AM CDT Called patient's home number listed in Epic X 2. Received [employer] message that phone has restrictions on this line and this junior underwriter was unable to leave message. Also attempted call to patient's work phone and patient was not there. Finally sent patient a MC message to attempt to contact her. Rehana Bryan, MS, RD, RN Telephone Encounter - Erica Stout - 01/23/2021 4:13 PM CDT Reason for call: Other Patient called regarding (reason for call): call back Additional comments: pt would like a call back regarding kidney stones and recent ED visit Phone number to reach patient: Home number on file [phone] (home) Best Time: Can we leave a detailed message on this number? YES Travel screening: Not Applicable documented in this encounter Plan of Treatment Not on filedocumented as of this encounter Visit Diagnoses Not on filedocumented in this encounter Care Teams Cosmetic Consultant Relationship Specialty Start Date End Date Matheus Feliciano MD PCP - General 03/23/20 [facility] [address] [facility] [place] [address] Car Joel MD Assigned Surgical Provider 06/01/20 [address] [place] [id number] documented as of this encounter
--- OUTSIDE RECORDS SUMMARY | 2022-04-10 14:42 | XMS_ITS | Encounter Summary ---
:1980 Author Organization [facility] Address [address] [place] [id number] Care Team Providers Name Role Phone Matheus Feliciano MD Primary Care Provider Car Joel MD Unavailable Reason for Visit Reason Comments Abdominal Pain Encounter Details Date Type Department Care Team Description 02/09/2021 Emergency [facility] Jesus Vigil MD Left flank pain / renal colic; [facility] Pos tprocedural pain Dept PA [address] [place], [place] [address] [phone] Social History Tobacco Use Types Packs/Day Years Used Date Former Smoker Cigarettes Smokeless Tobacco: Never Used Comments: as a child Alcohol Use Standard Drinks/Week Comments No 0 (1 standard drink = 0.6 oz pure alcoho l) Sex Assigned at Date Recorded Female 06/29/2021 12:12 PM [employer] COVID-19 Exposure Response Date Recorded In the last month, have you been in contact with No / Unsure 01/10/2021 3:54 PM CDT someone who was confirmed or suspected to have Coronavirus / COVID-19? documented as of this encounter Last Filed Vital Signs Vital Sign Reading Time Taken Comments Blood Pressure 107/78 02/09/2021 11:00 PM CDT Pulse 68 02/09/2021 11:00 PM CDT Temperature 36.7 ??C (98 ??F) 02/09/2021 9:19 PM CDT Respiratory Rate 16 02/09/2021 11:00 PM CDT Oxygen Saturation 99% 02/09/2021 11:00 PM CDT Inhaled Oxygen Concentration - - Weight - - Height - - Body Mass Index - - documented in this encounter Discharge Instructions AttachmentsThe following attachments cannot be sent through Care Everywhere. Stents, Ureteral (Azerbaijani)documented in this encounter Medications at Time of Discharge Medication Sig Dispensed Refills Start Date End Date adapalene (DIFFERIN) 0.1 % Apply topically At 0 external cream Bedtime atomoxetine (STRATTERA) 80 Take 80 mg by mouth 0 MG capsule daily. busPIRone HCl (BUSPAR) 30 Take 30 mg by mouth 0 MG tablet 2 times daily calcium carbonate-vitamin Take 1 tablet by 90 tablet 11 11/2012 D (CALCIUM 500 + D) mouth 3 times daily 500-400 MG-UNIT TABS tabltIndications: Bariatric surgery status, Overweight and obesity(278.0) cetirizine (ZYRTEC) 10 MG Take 10 mg by mouth 0 tablet daily as needed cyanocobalamin 1000 MCG/ML Inject 1 mL (1,000 1 mL 11 1 09/13/2012 injectionIndications: mcg) into the Bariatric surgery status, muscle every 30 Overweight and days obesity(278.0) cyclobenzaprine (FLEXERIL) Take 0.5-1 tablets 10 tablet 0 0 05/04/2020 10 MG tabletIndications: (5-10 mg) by mouth Postoperative pain 2 times daily as needed for muscle spasms doxylamine (UNISOM) 25 MG Take 50 mg by mouth 0 TABS tablet At Bedtime (take 2 x 25mg) escitalopram (LEXAPRO) 20 Take 20 mg by mouth 0 MG tablet daily fluticasone (FLONASE) 50 [place] 30 mcg in 0 MCG/ACT nasal spray nostril daily as needed gabapentin (NEURONTIN) 300 Take 900 mg by 0 MG capsule mouth 3 times daily (takes 3 x 300mg) levETIRAcetam (KEPPRA) 500 Take 500 mg by 0 MG tablet mouth 2 times daily lidocaine (LIDODERM) 5 % Place 1 patch onto 0 patch the skin daily as needed Multiple Vitamins-Minerals Take 1 tablet by 0 (MULTIVITAMIN & MINERAL mouth every morning PO)Indications: Bariatric surgery status, Overweight and obesity(278.0) omega 3 1000 MG CAPS Take 1 g by mouth 0 daily ondansetron (ZOFRAN-ODT) 4 Take 4 mg by mouth 0 0 09/21/2019 MG ODT tab every 6 hours as needed polyethylene glycol Take 1 packet by 0 (MIRALAX) 17 g packet mouth daily SUMAtriptan (IMITREX) 100 Take 100 mg by 0 MG tablet mouth every 8 hours as needed topiramate (TOPAMAX) 100 Take 100 mg by 0 MG tablet mouth At Bedtime vitamin D3 Take 2,000 Units by 0 (CHOLECALCIFEROL) 50 mcg mouth daily (2000 units) tablet ondansetron (ZOFRAN ODT) 4 Take 1 tablet (4 10 tablet 0 10/202002/12/2021 MG ODT tab mg) by mouth every 6 hours as needed for nausea oxyCODONE (ROXICODONE) 5 Take 1 tablet (5 15 tablet 0 02/0904/03/2021 MG tablet mg) by mouth every 4 hours as needed for pain oxyCODONE (ROXICODONE) 5 Take 1-2 tablets 15 tablet 0 04/1304/03/2021 MG tabletIndications: (5-10 mg) by mouth Hiatal hernia every 4 hours as needed for moderate to severe pain pantoprazole (PROTONIX) 40 Take 1 tablet (40 60 tablet 2 04/03/2021 MG EC tabletIndications: mg) by mouth 2 Hiatal hernia times daily potassium chloride ER Take 10 mEq by 0 04/03/2021 (KLOR-CON M) 10 MEQ CR mouth daily tablet documented as of this encounter ED Notes Mariluz Mendoza RN - 02/09/2021 9:18 PM CDT Pt aox4, ABCs intact. Pt had surgery on 02/06 for kidney stones and had a stent placed. Since then patient still having significant amount of left sided flank pain that wraps around to her abdomen as well as pain and blood with urination. AmdJesus pino MD - 02/09/2021 9:16 PM CDT History Chief Complaint: Flank Pain HPI Gricelda Roberts is a 40 year old female with history of chronic back pain, kidney stones who presents with left-sided abdominal pain which radiates to the left side of her lower back and worsens when the patient uses the bathroom. She states that she also becomes extremely nauseous and diaphoretic dueto the pain. The patient reports that on 01/09/2021 she was diagnosed with nephrolithiasis and had a stent placed on 02/06. She was given an antibiotic after the surgery. She denies fever. Review of Systems Constitutional: Positive for diaphoresis. Negative for fever. Gastrointestinal: Positive for abdominal pain and nausea. Musculoskeletal: Positive for back pain. All other systems reviewed and are negative. Allergies: Keflex Medications: Strattera Buspar Zyrtec Flexeril Cyanocobalamin Unisom Lexapro Flonase Gabapentin Keppra Protonix Miralax Imitrex Topamax Past Medical History: Anxiety ADHD Chronic back pain Depression Hypothyroidism Insomnia Kidney stones Migraine Opioid use Seizures Hiatal hernia Past Surgical History: Gastric bypass Cholecystectomy EGD Hysterectomy Laparoscopic gastropexy Tonsillectomy section Urethral dilation Cystoscopy with ureteroscopy with lithotripsy Family History: Father: hyperytension Social History: Patient presents to the ED with family members. Patient presents to the ED via car. Physical Exam Patient Vitals for the past 24 hrs: BP Temp Pulse Resp SpO2 02/09/21 2300 107/78 -- 68 16 99 % 02/09/21 2119 125/86 98 ??F (36.7 ??C) 67 16 100 % Physical Exam Nursing note and vitals reviewed. Constitutional: Cooperative. Appears uncomfortable. HENT: Mouth/Throat: Mucous membranes are normal. Cardiovascular: Normal rate, regular rhythm and normal heart sounds. No murmur. Pulmonary/Chest: Effort normal and breath sounds normal. No respiratory distress. No wheezes. No rales. Abdominal: Soft. Normal appearance and bowel sounds are normal. No distension. There is no tenderness. There is no rigidity and no guarding. Neurological: Alert. Oriented x4 Skin: Skin is warm and dry. Psychiatric: Normal mood and affect. Emergency Department Course Imaging: CT Abdomen Pelvis without Contrast (stone protocol) 1. Left ureteral stent. No hydronephrosis. 2. Tiny nonobstructing right renal calculus. Reading per radiology Laboratory: CBC: WBC 12.9 (H), HGB 14.3, PLT 256 BMP: all WNL (Creatinine 1.04) UA with microscopic: ketones trace (A), blood large (A), protein albumin 200 (A), leukocyte esterasemoderate (A), WBC/HPF 153 (H), RBC/HPF >182 (H), squamous epithelial/HPF 2 (H) o/w WNL Reviewed: I reviewed nursing notes, vitals and care everywhere Assessments: 2132 I obtained history and examined the patient as noted above. 2244 I rechecked the patient and explained findings. Interventions: 2149 NS 1 L IV 2149 Toradol 15 mg IV 2153 Zofran 4 mg IV 2211 Dilaudid 0.5 mg IV Disposition: The patient was discharged to home. Impression & Plan Medical Decision Making: Gricelda Roberts is a 40 year old female post-op day 4 from a ureteral stent placement who presents with left flank pain. She is afebrile but markedly uncomfortable. CT scan was performed which shows good positioning of the left ureteral stent with no evidence of hydronephrosis or ongoing obstruction. P atient certainly could behaving ureteral spasm. Urinalysis shows more red blood cells than white blood cells making infection unlikely. She is already on antibiotics. It is reasonable to continue her pain medication for an additional course until she can follow up with urology. They have advised her if she is not tolerating the stent that she could use the string to self-remove the stent which I think is reasonable at this time. I encouraged her to do so once she gets home. Diagnosis: ICD-10-CM 1. Left flank pain / renal colic R10.9 2. Postprocedural pain G89.18 Discharge Medications: Discharge Medication List as of 02/09/2021 10:57 PM START taking these medications Details !! ondansetron (ZOFRAN ODT) 4 MG ODT tab Take 1 tablet (4 mg) by mouth every 6 hours as needed for nausea, Disp-10 tablet, R-0, Local Print !! oxyCODONE (ROXICODONE) 5 MG tablet Take 1 tablet (5 mg) by mouth every 4 hours as needed for pain, Disp-15 tablet, R-0, Local Print !! - Potential duplicate medications found. Please discuss with provider. Scribe Disclosure: I, Aury Kelvin, am serving as a scribe at 9:25 PM on 02/09/2021 to document services personally performed by Jesus Vigil MD based on my observations and the provider's statements to me. Jesus Vigil MD 02/09/21 [id number] documented in this encounter Plan of Treatment Not on filedocumented as of this encounter Procedures Procedure Name Priority Date/Time Associated Comments Diagnosis ROUTINE UA WITH STAT 02/09/2021 10:21 Results for this MICROSCOPIC PM CDT procedure are i n the results section. CT ABDOMEN PELVIS W/O STAT 02/09/2021 10:09 Re sults for this CONTRAST PM CDT procedure are i n the results section. CBC WITH PLATELETS & STAT 02/09/2021 9:46 PM R esults for this DIFFERENTIAL CDT procedure are i n the results section. BASIC METABOLIC PANEL STAT 02/09/2021 9:46 PM Results for this CDT procedure are i n the results section. documented in this encounter Results (ABNORMAL) UA with Microscopic (02/09/2021 10:21 PM CDT) Component Value Ref Test Analysis Performed At [facility] Range Method Time Signature Color Urine Yellow 02/09/2021 [facility] 10:46 PM [facility] Appearance Urine Slightly Cloudy 02/09/2021 [facility] 10:46 PM [facility] Glucose Urine Negative NEG^Nega 02/09/2021 [facility] tive 10:46 PM [facility] mg/dL T [facility]PITAL Bilirubin Urine Negative NEG^Nega 02/09/2021 [facility] tive 10:46 PM [facility] Ketones Urine Trace (A) NEG^Nega 02/09/2021 [facility] tive 10:46 PM [facility] mg/dL T [facility]OSP[facility] Specific [place] 1.026 1.003 - 02/09/2021 [facility] Urine 1.035 10:46 PM [facility] Blood Urine Large (A) NEG^Nega 02/09/2021 [facility] tive 10:46 PM [facility] pH Urine 6.0 5.0 - 02/09/2021 [facility] 7.0 pH 10:46 PM [facility] CDT HOSPITAL Protein Albumin 200 (A) NEG^Nega 02/09/2021 [place] Urine tive 10:46 PM [facility] mg/dL [facility] Urobilinogen Normal 0.0 - 02/09/2021 [place] mg/dL 2.0 10:46 PM [facility] mg/dL [facility] Nitrite Urine Negative NEG^Nega 02/09/2021 [place] tive 10:46 PM [facility] Leukocyte Moderate (A) NEG^Nega 02/09/2021 [place] Esterase Urine tive 10:46 PM [facility] Source Catheterized 02/09/2021 [place] Urine 10:34 PM [facility] WBC Urine 153 (H) 0 - 5 02/09/2021 [place] /HPF 10:46 PM [facility] RBC Urine >182 (H) 0 - 2 02/09/2021 [place] /HPF 10:46 PM [facility] Squamous 2 (H) 0 - 1 02/09/2021 [place] Epithelial /HPF /HPF 10:46 PM [facility] Urine [facility] Specimen (Source) Anatomical Collection Method Collection Time Re ceived Time Location / / Volume Laterality Urine specimen 02/09/2021 10:21 1 collection, PM CDT 10:34 PM CDT catheterized (procedure) Jesus Vigil MD LAB - URINE ORDERABLES Performing Organization Address City/State/ZIP Code Phon e Number [place] [address] [address] [place] [address] [phone] CT Abdomen Pelvis without Contrast (stone protocol) (02/09/2021 10:09 PM CDT) Anatomical Region Laterality Modality Abdomen/Pelvis, SUBRAD CT BODY, UMP CT ABDOMEN PELVIS, Computed Tomography RAD CT Specimen (Source) Anatomical Collection Method Collection Time Re ceived Time Location / / Volume Laterality 02/09/2021 10:05 PM CDT Impressions 02/09/2021 10:18 PM CDT IMPRESSION: 1. ??Left ureteral stent. No hydronephro sis. 2. ??Tiny nonobstructing right renal lise culus. Narrative 02/09/2021 10:18 PM CDT EXAM: CT ABDOMEN PELVIS W/O CONTRAST LOCATION: [facility] DATE/TIME: 02/09/2021 10:05 PM INDICATION: Recent ureteral stent placem ent. Increasing pain COMPARISON: 11/29/2019 TECHNIQUE: CT scan of the abdomen and pe lvis was performed without IV contrast. Multiplanar reformats were obtained. Dose reduction techniques were used. CONTRAST: None. FINDINGS: LOWER CHEST: Lung bases clear. HEPATOBILIARY: Cholecystectomy. PANCREAS: Grossly within normal limits o f noncontrast images. SPLEEN: Capsular calcification. ADRENAL GLANDS: Normal. KIDNEYS/BLADDER: No hydronephrosis. Left ureteral stent. Proximal coil in the renal pelvis and distal aspect within the bladder. Right perinephric stranding. No visible calculi along the stent. 2 mm nonobstructing right renal calculus. BOWEL: Gastric bypass. Normal caliber sm all bowel. Moderate amount of colonic stool. LYMPH NODES: Normal. VASCULATURE: Unremarkable. PELVIC ORGANS: Stable. MUSCULOSKELETAL: Degenerative change oss eous structures. Left L5 pars defect. Procedure Note Carol Gonzáles MD, MD - 10/2020 EXAM: CT ABDOMEN PELVIS W/O CONTRAST LOCATION: [facility] DATE/TIME: 02/09/2021 10:05 PM INDICATION: Recent ureteral stent placem ent. Increasing pain COMPARISON: 11/29/2019 TECHNIQUE: CT scan of the abdomen and pe lvis was performed without IV contrast. Multiplanar reformats were obtained. Dose reduction techniques were used. CONTRAST: None. FINDINGS: LOWER CHEST: Lung bases clear. HEPATOBILIARY: Cholecystectomy. PANCREAS: Grossly within normal limits o f noncontrast images. SPLEEN: Capsular calcification. ADRENAL GLANDS: Normal. KIDNEYS/BLADDER: No hydronephrosis. Left ureteral stent. Proximal coil in the renal pelvis and distal aspect within the bladder. Right perinephric stranding. No visible calculi along the stent. 2 mm nonobstructing right renal calculus. BOWEL: Gastric bypass. Normal caliber sm all bowel. Moderate amount of colonic stool. LYMPH NODES: Normal. VASCULATURE: Unremarkable. PELVIC ORGANS: Stable. MUSCULOSKELETAL: Degenerative change oss eous structures. Left L5 pars defect. IMPRESSION: 1. Left ureteral stent. No hydronephrosi s. 2. Tiny nonobstructing right renal calcu salo. Jesus Vigil MD IMG CT ORDERABLES Basic metabolic panel (02/09/2021 9:46 PM CDT) athologist Signature Sodium 138 133 - 144 02/09/2021 [facility] mmol/L 9:59 PM [facility] Potassium 3.6 3.4 - 5.3 02/09/2021 [facility] mmol/L 9:59 PM [facility] Chloride 106 94 - 109 02/09/2021 [facility] mmol/L 9:59 PM [facility] Carbon Dioxide 28 20 - 32 02/09/2021 [place] mmol/L 10:05 PM [facility] Anion Gap 4 3 - 14 02/09/2021 [place] mmol/L 10:05 PM [facility] Glucose 81 70 - 99 02/09/2021 [place] mg/dL 10:05 PM [facility] Urea Nitrogen 9 7 - 30 02/09/2021 [facility] mg/dL 10:05 PM [facility] Creatinine 1.04 0.52 - 02/09/2021 [facility] 1.04 mg/dL 10:05 PM [facility] GFR Estimate 68 >60 02/09/2021 [place] mL/min/{1. 10:05 PM [facility] 73_m2} [facility] Comment: Non GFR Calc Starting 07/27/2018, serum creatinine ba sed estimated GFR (eGFR) will be calculated using the Chronic Kidney Dise banner Epidemiology Collaboration (CKD-EPI) equation. GFR Estimate If 78 >60 mL/min/{1.73_m2} 02/09/2021 10 :05 PM [facility] Comment: GFR Calc Starting 07/27/2018, serum creatinine ba sed estimated GFR (eGFR) will be calculated using the Chronic Kidney Dise banner Epidemiology Collaboration (CKD-EPI) equation. Calcium 8.6 8.5 - 10.1 mg/dL 02/09/2021 10:[address] [facility] Specimen Anatomical Collection Method Collection Time Receive d Time (Source) Location / / Volume Laterality Blood 02/09/2021 9:46 PM 9:49 CDT PM CDT Jesus Vigil MD LAB - BLOOD ORDERABLES Performing Organization Address City/State/ZIP Code Phon e Number [facility] [address] [place], [place] [address] [facility] [address] [place], [place] [address], [facility] [[email or web address]] [phone] (ABNORMAL) CBC with platelets differential (02/09/2021 9:46 PM CDT) [facility] gist Method Time Signature WBC 12.9 (H) 4.0 - 02/09/2021 [facility] 11.0 9:52 PM [facility] 10e9/L [facility] RBC Count 4.51 3.8 - 5.2 02/09/2021 [facility] 10e12/L 9:52 PM [facility] Hemoglobin 14.3 11.7 - 02/09/2021 [facility] 15.7 g/dL 9:52 PM [facility] Hematocrit 43.7 35.0 - 02/09/2021 [facility] 47.0 % 9:52 PM [facility] MCV 97 78 - 100 02/09/2021 [facility] fl 9:52 PM [facility] MCH 31.7 26.5 - 02/09/2021 [facility] 33.0 pg 9:52 PM [facility] MCHC 32.7 31.5 - 02/09/2021 [facility] 36.5 g/dL 9:52 PM [facility] RDW 12.2 10.0 - 02/09/2021 [facility] 15.0 % 9:52 PM [facility] Platelet Count 256 150 - 450 02/09/2021 [facility] 10e9/L 9:52 PM [facility] Diff Method Automated 02/09/2021 [facility] Method 9:52 PM [facility] % Neutrophils 71.3 % 02/09/2021 [facility] 9:52 PM [facility] % Lymphocytes 17.7 % 02/09/2021 [facility] 9:52 PM [facility] % Monocytes 7.3 % 02/09/2021 [facility] 9:52 PM [facility] % Eosinophils 1.9 % 02/09/2021 [facility] 9:52 PM [facility] % Basophils 0.6 % 02/09/2021 [place] 9:52 PM [facility] % Immature 1.2 % 02/09/2021 [place] Granulocytes 9:52 PM [facility] Nucleated RBCs 0 0 /100 02/09/2021 [place] 9:52 PM [facility] Absolute 9.2 (H) 1.6 - 8.3 02/09/2021 [place] Neutrophil 10e9/L 9:52 PM [facility] Absolute 2.3 0.8 - 5.3 02/09/2021 [place] Lymphocytes 10e9/L 9:52 PM [facility] Absolute 0.9 0.0 - 1.3 02/09/2021 [place] Monocytes 10e9/L 9:52 PM [facility] Absolute 0.3 0.0 - 0.7 02/09/2021 [place] Eosinophils 10e9/L 9:52 PM [facility] Absolute 0.1 0.0 - 0.2 02/09/2021 [place] Basophils 10e9/L 9:52 PM [facility] Abs Immature 0.2 0 - 0.4 02/09/2021 [place] Granulocytes 10e9/L 9:52 PM [facility] Absolute 0.0 02/09/2021 [place] Nucleated RBC 9:52 PM [facility] Specimen Anatomical Collection Method Collection Time Receive d Time (Source) Location / / Volume Laterality Blood 02/09/2021 9:46 PM 9:49 CDT PM CDT Jesus Vigil MD LAB - BLOOD ORDERABLES Performing Organization Address City/State/ZIP Code Phon e Number [facility] [address], [place] [address] [facility] [address] [phone] documented in this encounter Visit Diagnoses Diagnosis Left flank pain / renal colic Abdominal pain, unspecified site Postprocedural pain documented in this encounter Administered Medications Inactive Administered Medications - up to 3 most recent administrations Medication Order MAR Action Action Date Dose Rate Site 0.9% sodium chloride BOLUS New Bag 02/09/2021 9:50 PM CDT 1,000 mLs 1000 mL/hr Intravenous, 1,000 mL, ONCE, at 1,000 mL/hr, Administer over 1 Hours, On 02/09/21 at 2140, For 1 dose HYDROmorphone (PF) (DILAUDID) injection 0.5 Given 10/2020 10:12 PM CDT 0.5 mg mg 0.5 mg, Intravenous, EVERY 15 MIN PRN, moderate to severe pain, Starting on 02/09/21 at 2139, For 3 doses, Notify the provider to assess for uncontrolled pain or analgesic side effects. Hold while on IV [employer] or with regular IV opioid dosing. For ordered IV doses 0.1-4 mg give IV Push undiluted. Administer each 2mg over 2-5 minutes. ketorolac (TORADOL) injection 15 mg Given 02/09/2021 9:50 PM CDT 15 mg 15 mg, Intravenous, ONCE, On 02/09/21 at 2140, For 1 dose, Can cause pain on injection. If ordered intravenously (IV) : administer through a running maintenance fluid over 1 minute followed by a flush. If patient complains of pain on injection, may dilute 15-30 mg in 5 mL and push over 1 to 2 minutes. ondansetron (ZOFRAN) injection 4 mg Given 02/09/2021 9:54 PM CDT 4 mg 4 mg, Intravenous, ONCE PRN, nausea, vomiting, Administer over 2-5 Minutes, Starting on 02/09/21 at 2139, For 1 dose, Irritant. For ordered IV doses 0.1-4 mg, give IV Push undiluted over 2-5 minutes. documented in this encounter Active and Recently Administered Medications Times are shown in CDT. Scheduled Medication Order 02/07/2021 02/08/2021 02/09/2021 0.9% sodium chloride BOLUS (COMPLETED) 2149 (New Bag - Provider: Corut Ventura RN)186 (Stopped - Provider: Court Ventura RN) Intravenous, 1,000 mL, ONCE, at 1,000 mL /hr, Administer over 1 Hours, On 02/09/21 at 2140, For 1 dose ketorolac (TORADOL) injection 15 mg (COMPLETED) 2149 (Given - Provider: Court Ventura RN) 15 mg, Intravenous, ONCE, 02/09/21 at 2140, For 1 dose, Can cause pain on injection. If ordered intravenously (IV) : administer through a running maintenance fluid over 1 minute followed by a flush. I f patient complains of pain on injection , may dilute 15-30 mg in 5 mL and push over 1 to 2 minutes. PRN Medication Order 02/07/2021 02/08/2021 02/09/2021 HYDROmorphone (PF) (DILAUDID) injection 0.5 mg 2211 (Given - Provider: Court Ventura RN) 0.5 mg, Intravenous, EVERY 15 MIN PRN, m oderate to severe pain, Starting 02/09/21 at 2139, For 3 doses, Notify the provider to assess for uncontrolled pain or analgesic side effects. Hold while on IV [employer] or with regular IV opioid dosing. Fo r ordered IV doses 0.1-4 mg give IV Push undiluted. Administer each 2mg over 2-5 minutes. ondansetron (ZOFRAN) injection 4 mg (COMPLETED) 2153 (Given - Provider: Court Ventura RN) 4 mg, Intravenous, ONCE PRN, nausea, vom iting, Administer over 2-5 Minutes, Starting 02/09/21 at 2139, For 1 dose, Irritant. For ordered IV doses 0.1-4 mg, give IV Push undiluted over 2-5 minutes. documented in this encounter Care Teams Security Clerk Relationship Specialty Start Date End Date Matheus Feliciano MD PCP - General 03/23/20 [facility] [address] [facility] [place] [id number] Car Joel MD Assigned Surgical Provider 06/01/20 [address] [place] [id number] documented as of this encounter
--- OUTSIDE RECORDS SUMMARY | 2022-04-10 14:42 | XMS_ITS | Encounter Summary ---
:1980 Author Organization [facility] Address [address] [place] [address]. [place] [address] Care Team Providers Name Role Phone Matheus Feliciano MD Primary Care Provider Car Joel MD Unavailable Reason for Visit Reason Onset Date Comments Medication Request 04/24/2020 Encounter Details Date Type Department Care Team Description 04/24/2020 Telephone [facility] Surgery Car Joel MD Medication Request Clinic [place] [address] [place] [address] [place] [id number] [phone] Social History Tobacco Use Types Packs/Day Years Used Date Former Smoker Cigarettes Smokeless Tobacco: Never Used Comments: as a child Alcohol Use Standard Drinks/Week Comments No 0 (1 standard drink = 0.6 oz pure alcoho l) Sex Assigned at Date Recorded 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 documented as of this encounter Miscellaneous Notes Telephone Encounter - Valarie Castro RN - 04/25/2020 2:54 PM CDT Called pt back a 3rd time to update on care plan. No answer; asked pt to call back when she is ready. Awaiting return call for further action. Valarie Castro RN on 04/25/2020 at 2:55 PM Telephone Encounter - Valarie Castro RN - 04/25/2020 1:18 PM CDT Called pt to update her on plan and refill. No answer; left message asking pt to call back for update. Valarie Castro RN on 04/25/2020 at 1:19 PM Telephone Encounter - Valarie Castro RN - 04/25/2020 9:56 AM CDT Consulted with Kurt LEON pt can have refill of flexeril today. Pt may not have any additional refills until seeing Dr. Joel next week. She will need to use tylenol in between to make this last. Called pt to update. Pt answered, then hung up. Will call back later. Valarie Castro RN on 04/25/2020 at 10:00 AM Telephone Encounter - Valarie Castro RN - 04/24/2020 4:34 PM CDT Reviewed chart. Last refill of this sent 04/19/2020 with # 15 of 5 mg flexeril. Called pt to check on reason for need of refill so soon. Pt states she is out of it. Using it about 3 times a day. States that medicine is working for her but she feels discomfort as soon as it wears off. States she needs to have medicine consistently to control her pain. Was alternating oxycodone and flexeril but is now out of both. When meds wear off pain is 6/10. That is what pain is at now. Not using tylenol at this time. Statesshe cannot use tylenol because of her bariatric surgery. Reviewed adjunct pain control methods with pt. Reviewed with pt that she can take 650 mg of tylenol PRN QID as ordered. Reviewed the difference between tylenol and NSAIDs. Suggested pt start with tylenol and heat or ice pack for comfort as well as rest tonight. Will review med request with PA tomorrow. Pt agrees to plan. Valarie Castro RN on 04/24/2020 at 4:43 PM Telephone Encounter - Richa Villasenor - 04/24/2020 3:47 PM CDT Patient would like refill on Cyclobenzaprine 5 mg Phone: Bai/Leo Please let her know when approved documented in this encounter Plan of Treatment Not on filedocumented as of this encounter Visit Diagnoses Diagnosis Hiatal hernia Diaphragmatic hernia without mention of obstruction or gangrene documented in this encounter Care Teams Customer Complaint Clerk Relationship Specialty Start Date End Date Matheus Feliciano MD PCP - General 03/23/20 [facility] [address] [facility] [place] [address] Car Joel MD Assigned Surgical Provider 06/01/20 [address] [place] [address] documented as of this encounter
--- OUTSIDE RECORDS SUMMARY | 2022-04-10 14:42 | XMS_ITS | Encounter Summary ---
:1980 Author Organization [facility] Address [address] [place] [address]. [place] [address] Care Team Providers Name Role Phone Matheus Feliciano MD Primary Care Provider Car Joel MD Unavailable Encounter Details Date Type Department Care Team Description 02/18/2021 Telephone [facility] E olga Henley PA-C [address] [facility] [address] 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 No answer. Left VM to call clinic, number provided. Lelo Aranda RN on 02/18/2021 at 8:07 AM documented in this encounter Plan of Treatment Not on filedocumented as of this encounter Visit Diagnoses Not on filedocumented in this encounter Care Teams Desk Representative Relationship Specialty Start Date End Date Matheus Feliciano MD PCP - General 03/23/20 [facility] [address] [facility] [place] [address] Car Joel MD Assigned Surgical Provider 06/01/20 [address] [place] [address] documented as of this encounter
--- OUTSIDE RECORDS SUMMARY | 2022-04-10 14:42 | XMS_ITS | Encounter Summary ---
:1980 Author Organization [facility] Address [address] [place] [address]. [place] [address] Care Team Providers Name Role Phone Matheus Feliciano MD Primary Care Provider Car Joel MD Unavailable Reason for Visit Reason Comments Erroneous encounter-disregard Encounter Details Date Type Department Care Team Description 02/06/2021 Virtual Visit [facility] Car Joel, [facility] Surgery Clinic [place] FLORES ENCOUNTER--DISREGARD [address] [place] [phone] [place] [id number] Social History Tobacco Use Types Packs/Day Years Used Date Former Smoker Cigarettes Smokeless Tobacco: Never Used Comments: as a child Alcohol Use Standard Drinks/Week Comments No 0 (1 standard drink = 0.6 oz pure alcoho l) Sex Assigned at Date Recorded 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 documented as of this encounter Progress Notes Breanne Chavez CMA - 02/06/2021 2:15 PM CDT A user error has taken place: encounter opened in error, closed for administrative reasons. Patient and provider could not connect for video visit. Patient will re-schedule for in-person visit. Eloisa Gonzales MA documented in this encounter Plan of Treatment Not on filedocumented as of this encounter Visit Diagnoses Diagnosis ERRONEOUS ENCOUNTER--DISREGARD - Primary documented in this encounter Care Teams Mail Handlers Supervisor Relationship Specialty Start Date End Date Matheus Feliciano MD PCP - General 03/23/20 [facility] [address] [facility] [place] [address] Car Joel MD Assigned Surgical Provider 06/01/20 [address] [facility] [address] [place] [address] documented as of this encounter
--- OUTSIDE RECORDS SUMMARY | 2022-04-10 14:42 | XMS_ITS | Encounter Summary ---
:1980 Author Organization [facility] Address [address] [place] [address]. 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 documented as of this encounter Plan of Treatment Not on filedocumented as of this encounter Visit Diagnoses Not on filedocumented in this encounter Care Teams Cook Pickled Meat Relationship Specialty Start Date End Date Matheus Feliciano MD PCP - General 03/23/[address] [address] documented as of this encounter
--- OUTSIDE RECORDS SUMMARY | 2022-04-10 14:42 | XMS_ITS | Encounter Summary ---
:1980 Author Organization [facility] Address [address] [place] [address]. 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 documented as of this encounter Miscellaneous Notes Telephone Encounter - Jahaira Frost RN - 04/19/2020 2:28 PM CDT Procedure: 1. Laparoscopic hiatal hernia repair 2. Bio-A absorbable mesh placement 3. Laparoscopic lysis of adhesions 4. Gastric pouch pexy Date: 04/12/2020 Surgeon: Wisam Patient reporting that if she sticks to full liquids or even creamy soups, she has not problems, butlast night she tried to eat potato/baumann soup and she experienced sensation of food getting stuck, reporting that she had to drink water in order to clear the area. Informed her that she is trying to increase her diet too quickly. There is probably a good amount ofswelling to the area still, which is why the solid food(s) could not pass through easily. Recommend she go back to a full liquid diet. Once able to tolerate that without any issue, she can increase to pureed. Should remain on pureed until her follow up with Dr. Joel on the of this month. She verbalized understanding. Will also send refill of flexiril to her pharmacy as well as pantoprazole, as there was an issue obtaining this rx the last time it was sent on the . She will call PRN. Jahaira Frost RN-BSN Telephone Encounter - Rciha Villasenor - 04/19/2020 1:21 PM CDT Please call, having trouble after surgery, feels lieke food is getting stuck other than just liquidsor creamy liquids Message ok documented in this encounter Plan of Treatment Not on filedocumented as of this encounter Visit Diagnoses Diagnosis Hiatal hernia Diaphragmatic hernia without mention of obstruction or gangrene documented in this encounter Care Teams Mines Inspector Relationship Specialty Start Date End Date Matheus Feliciano MD PCP - General 03/23/[address] [place] [address] documented as of this encounter
--- OUTSIDE RECORDS SUMMARY | 2022-04-10 14:42 | XMS_ITS | Encounter Summary ---
:1980 Author Organization [place] Address [facility] [place] [address] Care Team Providers Name Role Phone Matheus [...] HIATAL HERNIA REPAIR WITH MANUEL FUNDOPLICATION [address], [address] [place] [phone] Phone: Referral ID Status Reason Start Date Expiration Date Visits Requ ested Visits Authorized [id number] 1 1 Encounter Details Date Type Department Care Team Description 04/12/2020 Anesthesia Event [facility] Francis Mcginnis MD [facility] [address] [id number] [place] [facility] Annette Yu, DIRECTOR LABOR STANDARDS DESIGN DIRECTOR [address] [id number] [address], [address] [place] [address] Anesthesia Record Procedure Summary Procedure Name Responsible Anesthesia Start Anesthesia Stop Anesthesiologist Time Time LAPAROSCOPIC HIATAL Francis Mcginnis MD 04/12/20 1124 04/12/20 1352 HERNIA REPAIR WITH MESH (N/A Abdomen) Events Date Time Event Comment 04/12/2020 1013 1124 An Start 1124 An Start Data 1130 An Induction 1132 An Intubation 1158 AN INCISION 1256 MD Present 1346 AN Extubation 1350 an stop data 1352 An Stop Electronically s igned by Annette Saeed APRN CRNA on April 12 0 1:52 PM Name Total dexamethasone 4mg/mL 4 mg ePHEDrine 5 mg/mL 20 mg fentaNYL (SUBLIMAZE) injection 150 mcg glycopyrrolate 0.2mg/mL 0.6 mg lidocaine 2% 80 mg midazolam 1mg/mL 2 mg neostigmine 1mg/mL 4 mg ondansetron 2mg/mL 8 mg propofol (DIPRIVAN) injection 10 mg/mL vial 200 mg rocuronium 10mg/mL 40 mg succinylcholine 20 mg/mL 100 mg clindamycin (CLEOCIN) infusion 900 mg 900 mg HYDROmorphone 1 mg/mL 0.5 mg LR 1,300 mL Agents Name NO HELIOX O2 N2O Air Exp Sevoflurane Exp Isoflurane Exp Desflurane Exp N2O Ins Sevoflurane Ins Isoflurane Ins Desflurane O2 Auxiliary Blood No blood administrations on file. Lines, Drains, and Airways Type Details Placement Removal Incision/Surgical Site 04/12/20; 1329; 04/12/20 1329 by Abdomen; 5 port sites Marjan Gu, RN Peripheral IV 11/29/19; 1540; 22 G; 11/29/19 1540 by 02/10/21 0002 by Left; Upper forearm; Denisse Williamson, Inarturo ient, Nurse Accessory cephalic; RN Chlorhexidine; None; Tolerated well Peripheral IV 04/12/20; 0936; 20 G; 04/12/20 0936 by 04/14/20 1325 by Left; Hand; Leonarda Tapia Narain, Delo n R, RN Chlorhexidine; RN Tolerated well RETIRED ETT 04/12/20; 1132; Mask 04/12/20 1132 by 04/12/20 1 344 by Ventilation: Annette Murry APRN [place], N atalie, attempted (RSI); Ease ELIZABETH STEWART CRNA of Intubation: Easy; Airway Size: 7; Cuffed; Oral; Blade Type: Torres; Blade Size: 2; Place by: NS; Insertion Attempts: 1; Secured at (cm)to lip: 22 cm; Breath Sounds: Equal, clear and bilateral; End Tidal CO2: Present; Dentition: Intact, Unchanged; Grade View of Cords: 1 documented in this encounter Social History Tobacco Use Types Packs/Day Years Used Date Former Smoker Cigarettes Smokeless Tobacco: Never Used Comments: as a child Alcohol Use Standard Drinks/Week Comments No 0 (1 standard drink = 0.6 oz pure alcoho l) Sex Assigned at Date Recorded Female 06/29/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 documented as of this encounter OR Notes Anesthesia Postprocedure Evaluation - Francis Mcginnis MD - 04/12/2020 3:14 PM CDT Patient: Gricelda Roberts Procedure(s): LAPAROSCOPIC HIATAL HERNIA REPAIR WITH MESH Laparoscopic gastropexy Diagnosis:Hiatal hernia [K44.9] Diagnosis Additional Information: No value filed. Anesthesia Type: General Note: Anesthesia Post Evaluation Patient location during evaluation: PACU Patient participation: Able to fully participate in evaluation Level of consciousness: awake Pain management: adequate Airway patency: patent Cardiovascular status: acceptable Respiratory status: acceptable Hydration status: acceptable PONV: none Anesthetic complications: None Last vitals: Vitals: 04/12/20 1430 04/12/20 1445 04/12/20 1500 BP: 115/74 111/73 108/77 Pulse: 65 73 66 Resp: 16 21 19 Temp: 36.7 ??C (98 ??F) 36.3 ??C (97.3 ??F) 36.3 ??C (97.3 ??F) SpO2: 97% 95% 97% Electronically Signed By: FRANCIS MCGINNIS MD April 12, 2020 3:14 PM Anesthesia Preprocedure Evaluation - Lito Monaco MD - 04/12/2020 9:56 AM CDT Anesthesia Pre-Procedure Evaluation Patient: Gricelda Roberts : 1980 Preoperative Diagnosis: Hiatal hernia [K44.9] Procedure(s): LAPAROSCOPIC HIATAL HERNIA REPAIR WITH MANUEL FUNDOPLICATION Past Medical History: Diagnosis Date ??? Anxiety ??? Attention deficit hyperactivity disorder ??? Back pain, chronic ??? Depression ??? Depressive disorder ??? 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 Insomnia ??? Migraine ??? Seizures (H) ??? Substance abuse (H) opiod dependence ??? Thyroid disease Past Surgical History: Procedure Laterality Date ??? BYPASS GASTRIC DUODENAL SWITCH ??? CHOLECYSTECTOMY ??? ENT SURGERY tonsillectomy ??? ESOPHAGOSCOPY, GASTROSCOPY, DUODENOSCOPY (EGD), COMBINED N/A 12/28/2019 Procedure: ESOPHAGOGASTRODUODENOSCOPY (EGD) with biopsies using biopsy forceps; Surgeon: James Hamilton MD; Location: [facility] ??? SEAT JOINER CHAINSTITCH SURGERY hysterectomy Allergies Allergen Reactions ??? Keflex [Cephalexin Hcl] Itching and Rash Social History Tobacco Use ??? Smoking status: Former Smoker Types: Cigarettes ??? Smokeless tobacco: Never Used ??? Tobacco comment: as a child Substance Use Topics ??? Alcohol use: No Prior to Admission medications Medication Sig Start Date End Date Taking? Authorizing Provider adapalene (DIFFERIN) 0.1 % external cream Apply topically At Bedtime Yes Reported, Patient atomoxetine (STRATTERA) 80 MG capsule Take 80 mg by mouth daily. Yes Reported, Patient busPIRone HCl (BUSPAR) 30 MG tablet Take 30 mg by mouth 2 times daily Yes Reported, Patient calcium carbonate-vitamin D (CALCIUM 500 + D) 500-400 MG-UNIT TABS tablt Take 1 tablet by mouth 3 times daily 07/13/13 Yes Car Joel MD cetirizine (ZYRTEC) 10 MG tablet Take 10 mg by mouth daily as needed Yes Reported, Patient cyanocobalamin 1000 MCG/ML injection Inject 1 mL (1,000 mcg) into the muscle every 30 days 07/13/13 Yes Car Joel MD dicyclomine (BENTYL) 10 MG capsule Take 1 capsule (10 mg) by mouth 4 times daily (before meals and nightly) 02/15/20 06/14/20 Yes Car Joel MD doxylamine (UNISOM) 25 MG TABS tablet Take 50 mg by mouth At Bedtime (take 2 x 25mg) Yes Reported, Patient escitalopram (LEXAPRO) 20 MG tablet Take 20 mg by mouth daily Yes Reported, Patient fluticasone (FLONASE) 50 MCG/ACT nasal spray Girard 30 mcg in nostril daily as needed Yes Reported, Patient gabapentin (NEURONTIN) 300 MG capsule Take 900 mg by mouth 3 times daily (takes 3 x 300mg) Yes Reported, Patient levETIRAcetam (KEPPRA) 500 MG tablet Take 500 mg by mouth 2 times daily Yes Reported, Patient lidocaine (LIDODERM) 5 % patch Place 1 patch onto the skin daily as needed 08/26/18 Yes Reported, Patient Multiple Vitamins-Minerals (MULTIVITAMIN & MINERAL PO) Take 1 tablet by mouth every morning Yes Reported, Patient omega 3 1000 MG CAPS Take 1 g by mouth daily Yes Reported, Patient ondansetron (ZOFRAN-ODT) 4 MG ODT tab Take 4 mg by mouth every 6 hours as needed 09/21/19 Yes Reported, Patient pantoprazole (PROTONIX) 40 MG EC tablet TAKE 1 TABLET(40 MG) BY MOUTH TWICE DAILY Patient taking differently: Take 40 mg by mouth 2 times daily 02/15/20 Yes Car Joel MD polyethylene glycol (MIRALAX) 17 g packet Take 1 packet by mouth daily Yes Reported, Patient potassium chloride ER (KLOR-CON M) 10 MEQ CR tablet Take 10 mEq by mouth daily Yes Reported, Patient SUMAtriptan (IMITREX) 100 MG tablet Take 100 mg by mouth every 8 hours as needed Yes Reported, Patient topiramate (TOPAMAX) 100 MG tablet Take 100 mg by mouth At Bedtime Yes Reported, Patient vitamin D3 (CHOLECALCIFEROL) 50 mcg (2000 units) tablet Take 2,000 Units by mouth daily Yes Reported, Patient syringe, disposable, 1 ML MISC 1 Device every 30 days 07/13/13 Car Joel MD Current Facility-Administered Medications Ordered in Epic Medication Dose Route Frequency Last Rate Last Dose ??? clindamycin (CLEOCIN) infusion 900 mg 900 mg Intravenous Pre-Op/Pre-procedure x 1 dose ??? clindamycin (CLEOCIN) infusion 900 mg 900 mg Intravenous See Admin Instructions No current Epic-ordered outpatient medications on file. Recent Labs Lab Test 04/12/20 0930 12/29/12 1605 NA -- 142 POTASSIUM 3.3* 4.1 CHLORIDE -- 105 CO2 -- 24 ANIONGAP -- 12.3 GLC -- 80 BUN -- 15 CR -- 0.61 MARCELLUS -- 9.3 Recent Labs Lab Test 07/28/13 1600 12/29/12 1605 WBC 9.3 11.0 HGB 14.3 11.5* PLT 285 323 Recent Labs Lab Test 12/29/12 1747 HCG Negative Anesthesia Evaluation . Pt has had prior anesthetic. Type: General No history of anesthetic complications ROS/MED HX ENT/Pulmonary: (-) tobacco use, asthma, COPD, sleep apnea and recent URI Neurologic: (+)seizures last seizure: last ~ November 2019 features: Grand mal - hasn't had any aside from previousin 2019 since 2016 - 2019 episode had missed meds, (-) CVA and TIA Cardiovascular: (+) ----. : . . . :. . Previous cardiac testing date:results:Stress Testdate:2009 results:1. Exercise duration and workload were adequate. 2. There were no significant symptoms with stress. 3. The stress EKG was normal. 4. Stress-only myocardial perfusion was normal. 5. Overall left ventricular systolic function was normal without regional wall motion abnormalities.?The post-stress LVEF was calculated to be 70%. Left ventricular cavity size was normal. 6. There were no prior studies available for comparison. TREADMILL STRESS MPI PROCEDURE: This patient was studied utilizing a two day stress/rest protocol.?At peak exercise, the patient was injected intravenously with 33.0 mCi of 99mTc Sestamibi and exercise was continued for 1:45 minutes.?The patient did not develop symptoms other than fatigue during the procedure. Stress was stopped because of fatigue.Gated post-stress tomographic imaging with attenuation correction was performed 10 minutes after stress.?After image acquisition was completed, the data was reconstructed in short, horizontal long and vertical long axis views and tomographic slices were generated.? Rest imaging was not performed as the stress images were normal.?? date: results: date: results: METS/Exercise Tolerance: Hematologic: Musculoskeletal: GI/Hepatic: (+) GERD Asymptomatic on medication, hiatal hernia, Other GI/Hepatic s/p GI Bypass (-) liver disease Renal/Genitourinary: (-) renal disease Endo: (+) thyroid problem Thyroid disease - Other hx of tx for hypothyroid - then off meds, . (-) chronic steroid usage Psychiatric: (+) psychiatric history anxiety and depression Infectious Disease: Malignancy: Other: Comment: Opioid dependence (+) H/O Chronic Pain,H/O chronic opiod use , Physical Exam Airway Mallampati: I TM distance: >3 FB Neck ROM: full Dental (+) upper dentures Cardiovascular Rhythm and rate: regular and normal (-) no murmur Pulmonary breath sounds clear to auscultation(-) no wheezes Lab Results Component Value Date WBC 9.3 07/28/2013 HGB 14.3 07/28/2013 HCT 42.1 07/28/2013 PLT 285 07/28/2013 NA 142 12/29/2012 POTASSIUM 3.3 (L) 04/12/2020 CHLORIDE 105 12/29/2012 CO2 24 12/29/2012 BUN 15 12/29/2012 CR 0.61 12/29/2012 GLC 80 12/29/2012 MARCELLUS 9.3 12/29/2012 ALBUMIN 4.3 12/29/2012 PROTTOTAL 7.0 12/29/2012 ALT 23 12/29/2012 AST 22 12/29/2012 ALKPHOS 44 12/29/2012 BILITOTAL 0.3 12/29/2012 LIPASE 71 04/06/2005 PTT 38 (H) 09/13/2008 INR 0.99 06/06/2010 TSH 1.85 06/06/2010 HCG Negative 12/29/2012 HCGS Negative 04/04/2005 Preop Vitals BP Readings from Last 3 Encounters: 04/12/20 113/74 02/15/20 100/56 12/28/19 95/67 Pulse Readings from Last 3 Encounters: 02/15/20 87 12/28/19 56 07/12/13 106 Resp Readings from Last 3 Encounters: 04/12/20 16 12/28/19 14 07/12/13 14 SpO2 Readings from Last 3 Encounters: 04/12/20 100% 12/28/19 99% 12/29/12 100% Temp Readings from Last 1 Encounters: 04/12/20 36.3 ??C (97.3 ??F) (Temporal) Ht Readings from Last 1 Encounters: 04/12/20 1.651 m (5' 5) Wt Readings from Last 1 Encounters: 04/12/20 76.1 kg (167 lb 12.8 oz) Estimated body mass index is 27.92 kg/m?? as calculated from the following: Height as of this encounter: 1.651 m (5' 5). Weight as of this encounter: 76.1 kg (167 lb 12.8 oz). Anesthesia Plan History & Physical Review History and physical reviewed and following examination; no interval change. ASA Status: 3 . NPO Status: > 8 hours Plan for General with Propofol and Intravenous induction. Maintenance will be Balanced. PONV prophylaxis: Ondansetron (or other 5HT-3) and Dexamethasone or Solumedrol ETT/RSI Propofol infusion Zofran 8 mg (divided) Decadron Postoperative Care Postoperative pain management: Multi-modal analgesia. Consents Anesthetic plan, risks, benefits and alternatives discussed with: Patient.. Lito Monaco MD documented in this encounter Miscellaneous Notes Anesthesia Care Transfer Note - Annette Saeed APRN CRNA - 04/12/2020 1:51 PM CDT Patient: Gricelda Roberts Procedure(s): LAPAROSCOPIC HIATAL HERNIA REPAIR WITH MESH Laparoscopic gastropexy Diagnosis: Hiatal hernia [K44.9] Diagnosis Additional Information: No value filed. Anesthesia Type: General Note: Airway :Face Mask Patient transferred to:PACU Comments: Spont. Resps, pt. Responding. Extubated, sufficient air exchange. Oxygen mask placed with 10 L O2. To PACU VSS, Monitors on. Report to RNHandoff Report: Identifed the Patient, Identified the Reponsible Provider, Reviewed the pertinent medical history, Discussed the surgical course, Reviewed Intra-OP anesthesia mangement and issues during anesthesia, Set expectations for post- procedure period and Allowed opportunity for questions and acknowledgement of understanding Vitals: (Last set prior to Anesthesia Care Transfer) DESIGN DIRECTOR VITALS 04/12/2020 1320 - 04/12/2020 1351 04/12/2020 Resp Rate (set): 10 Electronically Signed By: Annette Saeed APRN DESIGN DIRECTOR April 12, 2020 1:51 PM documented in this encounter Plan of Treatment Not on filedocumented as of this encounter Visit Diagnoses Not on filedocumented in this encounter Administered Medications Inactive Administered Medications - up to 3 most recent administrations Medication Order MAR Action Action Date Dose Rate Site clindamycin (CLEOCIN) infusion Given 04/12/2020 11:39 AM CDT 900 mg 900 mg Routine, 900 mg, Intravenous, PRE-OP/PRE-PROCEDURE, Starting on Palmira 04/12/20 at 0905, For 1 dose, Give first dose within 1 hour PRIOR to incision., Indications: Perioperative Pharmacoprophylaxis, Pre-procedure dexamethasone (DECADRON) injection Given 04/12/2020 11:46 AM CDT 4 mg PRN, Administer over 1 Minutes, Starting on [place]ira 04/12/20 at 1146, Anesthesia Intra-op ePHEDrine injection Given 04/12/2020 11:56 AM CDT 10 mg PRN, Starting on Palm[place] 04/12/20 at 1150, Anesthesia Intra-op Given 04/12/2020 11:50 AM CDT 10 mg fentaNYL (PF) (SUBLIMAZE) injection Given 04/12/2020 11:59 AM CDT 50 mcg PRN, Administer over 3-5 Minutes, Starting on Palmira 04/12/20 at 1130, Anesthesia Intra-op Given 04/12/2020 11:30 AM CDT 100 mcg glycopyrrolate (ROBINUL) injection Given 04/12/2020 1:28 PM CDT 0.6 mg PRN, Administer over 1-2 Minutes, Starting on [place] 04/12/20 at 1328, Anesthesia Intra-op HYDROmorphone (DILAUDID) injection Given 04/12/2020 1:12 PM CDT 0.5 mg PRN, Starting on Palmira 04/12/20 at 1312, Anesthesia Intra-op lactated ringers infusion New Bag 04/12/2020 11:25 AM CDT Intravenous, CONTINUOUS PRN, Anesthesia Intra-op, Starting on Palmira 04/12/20 at 1125, Until Palmira 04/12/20 at 1352 lidocaine 2% injection (MDV) Given 04/12/2020 11:30 AM CDT 80 mg PRN, Starting on Palmira 04/12/20 at 1130, Anesthesia Intra-op midazolam (VERSED) injection Given 04/12/2020 11:26 AM CDT 2 mg Administer over 2 Minutes, PRN, Starting on [place] 04/12/20 at 1126, Anesthesia Intra-op neostigmine (PROSTIGMINE) injection Given 04/12/2020 1:28 PM CDT 4 mg Intravenous, PRN, Starting on [place] 04/12/20 at 1328, Anesthesia Intra-op ondansetron (ZOFRAN) injection Given 04/12/2020 1:24 PM CDT 4 mg PRN, Administer over 2-5 Minutes, Starting on [place]ira 04/12/20 at 1156, Anesthesia Intra-op Given 04/12/2020 11:56 AM CDT 4 mg propofol (DIPRIVAN) injection 10 mg/mL v ial Given 04/12/2020 11:38 AM CDT 50 mg PRN, Starting on [place]ira 04/12/20 at 1130, Anesthesia Intra-op Given 04/12/2020 11:30 AM CDT 150 mg rocuronium injection Given 04/12/2020 11:36 AM CDT 40 mg PRN, Starting on Palmira 04/12/20 at 1136, Anesthesia Intra-op succinylcholine (ANECTINE) injection Given 04/12/2020 11:30 AM CDT 100 mg PRN, Starting on Palmira 04/12/20 at 1130, Anesthesia Intra-op documented in this encounter Care Teams Oil Speculator Relationship Specialty Start Date End Date Matheus Feliciano MD PCP - General 03/23/[address] [place] [address] documented as of this encounter
--- OUTSIDE RECORDS SUMMARY | 2022-04-10 14:43 | XMS_ITS | Encounter Summary ---
:1980 Author Organization [place] Address [address] [place] [address]. [place] [address] Care Team Providers Name Role Phone Nemesio Costa MD Primary Care Provider Reason for Visit Reason Onset Date Comments Clinic Care Coordination - Follow-up 01/03/2020 Encounter Details Date Type Department Care Team Description 01/03/2020 Telephone [facility] Randi Contreras, Clinic C are Coordination Surgical Weight Loss ANTONIA Kimball - Follow-up Clinic 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 documented as of this encounter Miscellaneous Notes Telephone Encounter - Rehana Anaya RN - 01/03/2020 2:18 PM CDT Called patient for update re: bowel program that was to have been tried over weekend. Had to LM to return call to nurse line that is checked in clinic frequent.y. Rehana Ziemer, MS, RD, RN documented in this encounter Plan of Treatment Not on filedocumented as of this encounter Visit Diagnoses Not on filedocumented in this encounter Care Teams Head Waiter/Waitress Banquet Relationship Specialty Start Date End Date Nemesio Costa MD PCP - General 05/30/11 03/22/20 documented as of this encounter
--- OUTSIDE RECORDS SUMMARY | 2022-04-10 14:43 | XMS_ITS | Encounter Summary ---
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 documented as of this encounter Plan of Treatment Not on filedocumented as of this encounter Visit Diagnoses Not on filedocumented in this encounter Care Teams Manager Clinic Relationship Specialty Start Date End Date Nemesio Costa MD PCP - General 05/30/11 03/22/20 documented as of this encounter
--- OUTSIDE RECORDS SUMMARY | 2022-04-10 14:43 | XMS_ITS | Encounter Summary ---
:1980 Author Organization [facility] Address [address] [place] [address]. 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 documented as of this encounter Plan of Treatment Not on filedocumented as of this encounter Visit Diagnoses Not on filedocumented in this encounter Care Teams Tax Services Intern Relationship Specialty Start Date End Date Matheus Feliciano MD PCP - General 03/23/[address] [address] documented as of this encounter
--- OUTSIDE RECORDS SUMMARY | 2022-04-10 14:43 | XMS_ITS | Encounter Summary ---
:1980 Author Organization [facility] Address [address] [place] [address]. [place] [address] Care Team Providers Name Role Phone Nemesio Costa MD Primary Care Provider Reason for Visit Reason Comments Consult hiatal hernia Encounter Details Date Type Department Care Team Description 02/15/2020 Office Visit [facility] Car Joel, Abdomin al pain, Surgery Clinic [place] FLORES epigastric (Primary [address] [place] [phone] PANKAJ GONZALEZ [id number] Social History Tobacco Use Types Packs/Day Years Used Date Former Smoker Cigarettes Smokeless Tobacco: Never Used Comments: as a child Alcohol Use Standard Drinks/Week Comments No 0 (1 standard drink = 0.6 oz pure alcoho l) Sex Assigned at Date Recorded 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 documented as of this encounter Last Filed Vital Signs Vital Sign Reading Time Taken Comments Blood Pressure 100/56 02/15/2020 12:27 PM CDT Pulse 87 02/15/2020 12:27 PM CDT Temperature - - Respiratory Rate - - Oxygen Saturation - - Inhaled Oxygen Concentration - - Weight 79.8 kg (176 lb) 02/15/2020 12:27 PM patient rep orted CDT Height 160 cm (5' 3) 02/15/2020 12:27 PM patient repo rted CDT Body Mass Index 31.18 02/15/2020 12:27 PM CDT documented in this encounter Progress Notes Car Joel MD - 02/15/2020 12:30 PM CDT General surgery clinic note I had the pleasure to meet with and her today in clinic to go over the complaints of abdominal pain, and difficulties eating that have occurred recently. She was in the hospital recently because of the development of a sharp left upper quadrant abdominalpain, this started after she felt a pop while straining to have a bowel movement. Constipation has been an ongoing issue for her. She had a CT scan of the abdomen were no abdominal wall hernia can be seen, no hematoma with abdominal wall can be seen. There is slight migration of her upper gastric pouch into the posterior mediastinum hence a small hiatal hernia. From the gastrointestinal standpoint she has been able to keep liquids down including water but foodhas been an issue. At best she goes to the bathroom every 3 days and is quite firm stool. She is only having small meals in the afternoon. For protein she has been doing some muscle buildingpowder, mixed with almond milk. There has been some nausea and vomiting that time. She does not smoke, she does consume noncarbonated monster energy/caffeinated drinks. She had a upper endoscopy which was negative for any pathology. #1 abdominal pain left upper quadrant- it appears musculoskeletal in nature and likely related to significant and chronic straining due to constipation. #2 intolerance to solid food- endoscopy showed no irritation to her pouch and she does not have any problems with liquids. No abnormality can be seen on the CT scan. At this time we do not continue with her antiacid medication, I will ask her to resume Bentyl. And we will order swallow study with different consistency food items to get a better functional evaluation of her upper gastrointestinal system. She is pleased with this plan. Total encounter time 45 minutes, more than half spent in counseling and review of data documented in this encounter Plan of Treatment Not on filedocumented as of this encounter Visit Diagnoses Diagnosis Abdominal pain, epigastric - Primary documented in this encounter Care Teams Water Jet Operator Relationship Specialty Start Date End Date Nemesio Costa MD PCP - General 05/30/11 03/22/20 documented as of this encounter
--- OUTSIDE RECORDS SUMMARY | 2022-04-10 14:43 | XMS_ITS | Encounter Summary ---
:1980 Author Organization [facility] Address [address] [place] [address]. [place] [address] Care Team Providers Name Role Phone Nemesio Costa MD Primary Care Provider Reason for Visit Reason Comments Medication Refill Encounter Details Date Type Department Care Team Description 02/15/2020 Refill [facility] Surgery Montserrat Shepherd Medication Refill Clinic [place] Henley PA-C [address] [place] [address] [place] [id number] [phone] Social History Tobacco Use Types Packs/Day Years Used Date Former Smoker Cigarettes Smokeless Tobacco: Never Used Comments: as a child Alcohol Use Standard Drinks/Week Comments No 0 (1 standard drink = 0.6 oz pure alcoho l) Sex Assigned at Date Recorded 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
--- OUTSIDE RECORDS SUMMARY | 2022-04-10 14:43 | XMS_ITS | Encounter Summary ---
:1980 Author Organization [facility] Address [address] [place] [address]. [place] [address] Care Team Providers Name Role Phone Nemesio Costa MD Primary Care Provider Encounter Details Date Type Department Care Team Description 01/03/2020 Telephone [facility] E olga Henley PA-C [address] [facility] [address] [facility] [address] [place] [address] [place] [address] [phone] Social History Tobacco Use Types Packs/Day Years Used Date Former Smoker Cigarettes Smokeless Tobacco: Never Used Comments: as a child Alcohol Use Standard Drinks/Week Comments No 0 (1 standard drink = 0.6 oz pure alcoho l) Sex Assigned at Date Recorded 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 documented as of this encounter Miscellaneous Notes Telephone Encounter - Rehana Anaya RN - 01/03/2020 5:28 PM CDT Spoke with TIA Mariano re: note below. Patient referred to [facility] in [place]. Called patient and informed her re: above. Patient would like to go to [facility] in [place] if there is one. Informed patient I didn't see this online but would place that as a request when I called d the referral in first thing tomorrow. Patient verbalized understanding and is agreeable to plan. Rehana Bryan MS, RD, RN Telephone Encounter - Rehana Anaya RN - 01/03/2020 4:11 PM CDT Patient encouraged to do bowel program over weekend. States she too 1/2 bottle of magnesium citrate and vomited 1/2 of it. However patient states she had a decent BM after and has had BM's now pretty much daily. States she is still having the same amount of pain in LUQ as before as well as bloating. States she was told she should have GI consult down where she lives. This commercial insurance underwriter is seeing that the above is a patient request. Informed patient this commercial insurance underwriter would contact provider and contact patient with update. Patient stated okay to leave detailed message on VM. Rehana Bryan MS, RD, RN Telephone Encounter - Pancho Reeder - 01/03/2020 3:37 PM CDT Pt has been waiting for/expecting a call from Nurse Kimball. [phone] OK to leave detailed VM documented in this encounter Plan of Treatment Not on filedocumented as of this encounter Visit Diagnoses Not on filedocumented in this encounter Care Teams Relief Mate Relationship Specialty Start Date End Date Nemesio Costa MD PCP - General 05/30/11 03/22/20 documented as of this encounter
--- OUTSIDE RECORDS SUMMARY | 2022-04-10 14:43 | XMS_ITS | Encounter Summary ---
:1980 Author Organization [facility] Address [address] [place] [address]. [place] [address] Care Team Providers Name Role Phone Nemesio Costa MD Primary Care Provider Reason for Visit Reason Onset Date Comments Schedule Surgery 03/22/2020 Encounter Details Date Type Department Care Team Description 03/22/2020 Telephone [facility] Surgery Car Joel MD Schedule Surgery Clinic [place] [address] [place] [address] [place] [address] [phone] Social History Tobacco Use Types Packs/Day Years Used Date Former Smoker Cigarettes Smokeless Tobacco: Never Used Comments: as a child Alcohol Use Standard Drinks/Week Comments No 0 (1 standard drink = 0.6 oz pure alcoho l) Sex Assigned at Date Recorded 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 Date and time of surgery: 04/12/20 at 11am Surgeon: Dr. Car Joel Pre-Op Appt Date: Patient to schedule Post-Op Appt Date: Patient to schedule Packet sent out: Yes Pre-cert/Authorization completed: Not Applicable Date: 03/22/20 documented in this encounter Plan of Treatment Not on filedocumented as of this encounter Visit Diagnoses Not on filedocumented in this encounter Care Teams Vessel Scrapper Relationship Specialty Start Date End Date Nemesio Costa MD PCP - General 05/30/11 03/22/20 documented as of this encounter
--- OUTSIDE RECORDS SUMMARY | 2022-04-10 14:43 | XMS_ITS | Encounter Summary ---
:1980 Author Organization [facility] Address [address] [place] [address]. [place] [address] Care Team Providers Name Role Phone Nemesio Costa MD Primary Care Provider Encounter Details Date Type Department Care Team Description 02/24/2020 Orders Only [facility] Surgery Car Joel MD Clinic [place] [address] [place] [place] [address] [address] [place] [id number] [phone] Social History Tobacco Use Types Packs/Day Years Used Date Former Smoker Cigarettes Smokeless Tobacco: Never Used Comments: as a child Alcohol Use Standard Drinks/Week Comments No 0 (1 standard drink = 0.6 oz pure alcoho l) Sex Assigned at Date Recorded 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 documented as of this encounter Plan of Treatment Not on filedocumented as of this encounter Visit Diagnoses Not on filedocumented in this encounter Care Teams Opthalmic Tech Relationship Specialty Start Date End Date Nemesio Costa MD PCP - General 05/30/11 03/22/20 documented as of this encounter
--- OUTSIDE RECORDS SUMMARY | 2022-04-10 14:43 | XMS_ITS | Encounter Summary ---
:1980 Author Organization [facility] Address [address] [place] [address]. [place] [address] Care Team Providers Name Role Phone Nemesio Cosat MD Primary Care Provider Encounter Details Date Type Department Care Team Description 12/28/2019 Telephone [facility] Surgical [facility] E olga Henley PA-C [address] [facility] [address] [facility] [address] [place] [address] [place] [address] [phone] Social History Tobacco Use Types Packs/Day Years Used Date Former Smoker Cigarettes Smokeless Tobacco: Never Used Comments: as a child Alcohol Use Standard Drinks/Week Comments No 0 (1 standard drink = 0.6 oz pure alcoho l) Sex Assigned at Date Recorded 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 documented as of this encounter Miscellaneous Notes Telephone Encounter - Valarie Castro RN - 12/29/2019 2:02 PM CDT Consulted Randi Shepherd PA-C. Plan of care as follows: -cause of patient's symptoms unclear despite multiple tests -check if pt is having regular daily stools. If not daily, pt should try bowel protocol for the weekend: -1-2 scoops miralax per day -if needed, stool softener daily -if needed 1/2 bottle magnesium citrate -if having daily stools proceed directly to GI consult for evaluation and treatment of symptoms Reviewed pt plan with pt. Pt states she continues to Have LUQ abdominal pain on a daily basis. Is not better. Reports she only has a BM every couple days and feels bloated. Does not have BM as often asshe needs. Is doing 2 scoops miralax daily. Reviewed additional meds as above. Reviewed follow up plan for next week. Pt agreeable to plan. RN to call pt on Thursday morning to check on status; if not improved to send in GI consult to have pt seen by GI soon. Pt prefers GI provider near her home, no other preference. Pt also asks to have Consent to Communicate emailed to her. Wants to speak about anything freely. Discussed with pt that email is not secure. Pt still wishes to use this. Confirmed email on file is correct. Will email form to pt; await return. Pt also wants to update any forms that are missing or out of date. Will send message to Britney Gutierrez to check into this. RN will reach to pt next week. Valarie Castro RN on 12/29/2019 at 2:40 PM Telephone Encounter - Valarie Castro RN - 12/28/2019 1:28 PM CDT Reviewed EGD report in chart from today. Called to check on pt status post EGD. Amador states pt is sleeping and doing ok today but states she is still having intermittent spells of abdominal pain that is as bad or worse. Last pain was last night. States pt symptoms are not resolved with increased protonix dose. Reassured that RN will consult TIA about EGD results tomorrow and be in touch with plan. Nofurther needs today. Valarie Castro RN on 12/28/2019 at 1:31 PM documented in this encounter Plan of Treatment Not on filedocumented as of this encounter Visit Diagnoses Not on filedocumented in this encounter Care Teams Feed And Farm Management Adviser Relationship Specialty Start Date End Date Nemesio Costa MD PCP - General 05/30/11 03/22/20 documented as of this encounter
--- OUTSIDE RECORDS SUMMARY | 2022-04-10 14:43 | XMS_ITS | Encounter Summary ---
:1980 Author Organization [facility] Address [address] [place] [address] Care Team Providers Name Role Phone Nemesio Costa MD Primary Care Provider Matheus Feliciano MD Primary Care Provider Car Joel MD Unavailable Encounter Details Date Type Department Care Team Description 12/28/2019 Communication - [facility] hCristel Sheehan, 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 documented as of this encounter Miscellaneous Notes Letter - Historical Provider - 01/24/2021 7:31 PM CDT Letter by Christel Sheehan RN at Author: Christel Sheehan RN Service: -- Author Type: -- Filed: Encounter Date: 12/28/2019 Status: (Other) 12/28/2019 Gricelda Roberts [address] [place] [address] This letter provides a written record that you were tested for COVID-19 on 12/26/2019. Your result was negative. This means that we didnt find the virus that causes COVID-19 in your sample. A test may show negative when you do actually have the virus. This can happen when the virus is in the early stages of infection, before you feel illness symptoms. Even if you dont have symptoms, they may still appear. For safety, its very important to follow these rules. Keep yourself away from others (self-isolation): ?? Stay home. Dont go to work, school or anywhere else. ?? Stay in your own room (and use your own bathroom), if you can. ?? Stay away from others in your home. No hugging, kissing or shaking hands. No visitors. ?? Clean high touch surfaces often (doorknobs, counters, handles, etc.). Use a household cleaning spray or wipes. ?? Cover your mouth and nose with a mask, tissue or washcloth to avoid spreading germs. ?? Wash your hands and face often with soap and water. Stay in self-isolation until you meet ALL of the guidelines below: 1. You have had no fever for at least 72 hours (that is 3 full days of no fever without the use of medicine that reduces fevers), AND 2. other symptoms (such as cough, shortness of breath) have gotten better, AND 3. at least 10 days have passed since your symptoms first appeared. Going back to work Check with your employer for any guidelines to follow for going back to work. Employers: This document serves as formal notice that your employee tested negative for COVID-19, asof the testing date shown above. For questions regarding this letter or your Negative COVID-19 result, call [phone] between 8A to 6:30P (M-F) and 10A to 6:30P (weekends). documented in this encounter Plan of Treatment Not on filedocumented as of this encounter Visit Diagnoses Not on filedocumented in this encounter Care Teams Durability Technician Relationship Specialty Start Date End Date Nemesio Costa MD PCP - General 05/30/11 03/22/20 Matheus Feliciano MD PCP - General 03/23/[address] [place] [id number] Car Joel MD Assigned Surgical Provider 06/01/[address] [facility] [address] [place] [id number] documented as of this encounter
--- OUTSIDE RECORDS SUMMARY | 2022-04-10 14:43 | XMS_ITS | Encounter Summary ---
:1980 Author Organization [facility] Address [address] [place], [place] [address]. [place] [address] Care Team Providers Name Role Phone Matheus [...] WITH MANUEL [employer] [address], [address] [place] [address] Phone: Referral ID Status Reason Start Date Expiration Date Visits Requ ested Visits Authorized [id number] 1 1 Encounter Details Date Type Department Care Team Description 04/12/2020 Surgery [facility] Car Joel MD LAPAROSCOPIC HIATAL [place] [facility] [address] HERNIA REPAIR WITH MESH Services [address], [address] [place] [address] [address] [facility] [place] [address] [phone] Surgery Details Date/Time Status Location OR Service Patient Case Class Case Tr auma Class Type Case? 04/12/20 10:40 Posted OR OR M 23 General Same Day Elective AM Surgery Panel 1 Procedure LRB Anes Op Region Wound Class Commen ts LAPAROSCOPIC HIATAL HERNIA N/A General Abdomen II-Clean Contaminated REPAIR WITH MESH Laparoscopic gastropexy N/A Abdomen Surgeon Surgeon Role Service Panel Car Joel MD Primary General 1 Josie Medina PA-C Assisting 1 documented in this encounter Social History Tobacco Use Types Packs/Day Years Used Date Former Smoker Cigarettes Smokeless Tobacco: Never Used Comments: as a child Alcohol Use Standard Drinks/Week Comments No 0 (1 standard drink = 0.6 oz pure alcoho l) Sex Assigned at Date Recorded Female 06/29/2021 12:12 PM [facility] COVID-19 Exposure Response Date Recorded In the last month, have you been in contact with No / Unsure 04/12/2020 8:55 AM CDT someone who was confirmed or suspected to have Coronavirus / COVID-19? documented as of this encounter Last Filed Vital Signs Vital Sign Reading Time Taken Comments Blood Pressure 113/74 04/12/2020 9:12 AM CDT Pulse - - Temperature 36.3 ??C (97.3 ??F) 04/12/2020 9:12 AM CDT Respiratory Rate 16 04/12/2020 9:12 AM CDT Oxygen Saturation 100% 04/12/2020 9:12 AM CDT Inhaled Oxygen Concentration - - [...] Admitting Physician: Car Joel MD Discharging Service: [facility] General Surgery Primary Provider: Matheus Feliciano [...] Historical fluticasone (FLONASE) 50 MCG/ACT nasal spray Ollie 30 mcg in nostril daily as needed [...] Joel for your first postoperative appointment. Call [phone] to schedule this. Our clinic's name is [facility]. Our clinic's name is [facility]. The address is [address] [place] [address] [place] , [facility] [address], [place], [address] Follow-up and recommended labs and tests Clinic [...] 2 weeks. Josie Medina PA-C [facility] [phone] Associated attestation - Car Joel MD - 04/19/2020 1:02 PM CDT Physician Attestation I, Car Joel MD, have reviewed and discussed with the advanced practice provider their discharge plan for Gricelda Roberts. I did not participate in a shared visit by interviewing or examining thepatient and this should be billed as an advanced practice provider only discharge. Car Joel documented in this encounter Discharge Instructions Discharge [...] or school ?? Do Not go to protestant, child development specialist centers, shopping, or other public places. ?? [...] at home, please visit the CDCwebsite at https://www.cdc.gov/coronavirus/2019-ncov/about/gjgof-qrso-fmta.html For more options for care at [facility], please visit our website at [email or web address] [facility] Discharge Instructions: Post-Operative Laparoscopic [...] prescribed pain medication. If you are taking Vermillion or Percocet, do not take any additional [...] like to be seen,please call us at [phone] and ask to speak with our nurse. We are located at [address] [place] [address] [place] [address]. CALL OUR OFFICE IF YOU HAVE: ??? Chills or fever above 101.5??F. ??? Increased redness or drainage at your incisions. ??? Significant bleeding. ??? Pain not relieved by your pain medication or rest. ??? Increasing pain after the first 48 hours. ??? Any other concerns or questions. Revised August 2017 If you have questions or concerns about your procedure, call Dr. Joel at [phone] documented in this encounter Medications at Time [...] MG tablet mouth daily fluticasone (FLONASE) 50 Ollie 30 mcg in 0 MCG/ACT nasal spray [...] nightly) acetaminophen (TYLENOL) Take 2 tablets 0 04/13/20 20 02/09/2021 325 MG tabletIndications: (650 mg) by mouth [...] a prescription for monthly vitamin B12 injections. T Josie Medina PA-C - 04/13/2020 8:23 AM [...] -- 12.3 Josie Medina PA-C [facility] [phone] Associated attestation - Car Joel MD - [...] (Not on file) admission is complete. See [facility] admission navigator for prior to admission medications Medication history sources: Patient, Surescripts and H&P Medication history source reliability: Good Adherence assessment: N/A Not Observed Significant changes made to the medication list: Patient reports no longer taking the following meds (med scribe removed from [facility] med list): -Levothyroxine (pt states her MD [...] Patient fluticasone (FLONASE) 50 MCG/ACT nasal spray Ollie 30 mcg in nostril daily as needed [...] ML MISC 1 Device every 30 days aCr Joel MD documented in this encounter Miscellaneous [...] lethargy. Will CTM Provider Notification - Arden Santana RN - 04/13/2020 3:46 PM CDT Paged [...] MD Physician Advisor Utilization Review/ Case Management [facility]. Plan of Care - Douglas Sidhu RN [...] Medina PA-C - 04/12/2020 1:59 PM CDT [facility] Brief Operative Note Pre-operative diagnosis: Hiatal hernia [K44.9] Post-operative diagnosis Same Procedure: LAPAROSCOPIC HIATAL HERNIA REPAIR WITH MESH Laparoscopic gastropexy Surgeon: * Car Joel MD - Primary * Josie Medina PA-C - Assisting Anesthesia: General Estimated blood loss: 10cc Findings: As above. No immediate complications. See operative report for full details. Implants: Implant Name Type Inv. Item Serial No. Senior Designer Lot No. [id number] No. Used Action MESH BIO-A TISSUE REINFORCEMENT [id number] Mesh MESH BIO-A TISSUE REINFORCEMENT [id number] [employer] N/A 1 Implanted Josie Medina PA-C [facility] [phone] Provider Notification - Leonarda Tapia RN - 04/12/2020 10:[address] Monaco made aware of K+:3.3 in pre-op. No replacement needed. Op Note - Car Joel MD - 04/12/2020 8:55 AM CDT Surgeon: Car Joel MD. HEADING REPAIRER: Josie Medina PA-C,The physicians assistant corporate controller was medically necessary for their expertise in [...] left judy of the diaphragm. A 46 Ghanaian bougie was placed through the esophagus, passing [...] Glucose by meter (04/14/2020 6:10 AM CDT) P athologist Signature Glucose 81 70 - 99 04/14/2020 POINT OF CARE mg/dL 6:16 AM CDT TEST, GLUCOSE Specimen Anatomical Collection Method Collection Time Receive d Time (Source) Location / / Volume Laterality 04/14/2020 6:10 AM 0 6:16 CDT AM CDT Car Joel MD LAB - BEAKER POCT Performing Organization Address City/[facility]/ZIP [facility] Phon e Number [facility] POINT OF CARE TEST, GLUCOSE POINT OF CARE TEST, GLUCOSE Platelet count (04/13/2020 7:15 AM CDT) P athologist Signature Platelet Count 249 150 - 450 04/13/2020 [place] 10e9/L 7:42 AM CDT [facility] Specimen Anatomical Collection Method Collection Time Receive d Time (Source) Location / / Volume Laterality Blood specimen 04/13/2020 7:15 AM 020 7:16 (specimen) CDT AM CDT Car Joel MD LAB - BLOOD ORDERABLES Performing Organization Address City/[facility]/ZIP [facility] Phon e Number M [facility] [address] [place] [address] [employer] [address] [place] [address], [place] [phone] Glucose (04/13/2020 7:15 AM CDT) athologist Signature Glucose 94 70 - 99 04/13/2020 [place] mg/dL 8:[address] [facility] Specimen Anatomical Collection Method Collection Time Receive d Time (Source) Location / / Volume Laterality Blood specimen 04/13/2020 7:15 AM 020 7:16 (specimen) CDT AM CDT Car Joel MD LAB - BLOOD ORDERABLES Performing Organization Address City/State/ZIP Code Phon e Number M [facility] [address] [address] [place] [address] [place] [address], [place] [phone] (ABNORMAL) Electrolyte panel (04/13/2020 7:15 AM CDT) athologist Signature Sodium 142 133 - 144 04/13/2020 [place] mmol/L 8:[address] [facility] Potassium 3.9 3.4 - 5.3 04/13/2020 [place] mmol/L 8:[address] [facility] Chloride 112 (H) 94 - 109 04/13/2020 [place] mmol/L 8:[address] [facility] Carbon Dioxide 26 20 - 32 04/13/2020 [place] mmol/L 8:[address] [facility] Anion Gap 4 3 - 14 04/13/2020 [place] mmol/L 8:[address] [facility] Specimen Anatomical Collection Method Collection Time Receive d Time (Source) Location / / Volume Laterality Blood specimen 04/13/2020 7:15 AM 020 7:16 (specimen) CDT AM CDT Josie Medina PA-C LAB - BLOOD ORDERABLES Performing Organization Address City/State/ZIP Code Phon e Number M [facility] [address] [address] [place] [address] [place] [address], [place] [phone] Hemoglobin (04/13/2020 7:15 AM CDT) athologist Signature Hemoglobin 11.9 11.7 - 15.7 04/13/2020 [place] g/dL 7:[address] [facility] Specimen Anatomical Collection Method Collection Time Receive d Time (Source) Location / / Volume Laterality Blood specimen 04/13/2020 7:15 AM 7:16 (specimen) CDT AM CDT Josie Medina PA-C LAB - BLOOD ORDERABLES Performing Organization Address City/State/ZIP [facility] Phon e Number M [facility] [address] [address] [employer] [address], [place] [address], [place] [phone] Creatinine (04/12/2020 8:02 PM CDT) athologist Signature Creatinine 0.62 0.52 - 1.04 04/12/2020 [place] mg/dL 8:[address] [facility] GFR Estimate >90 >60 04/12/2020 [place] mL/min/{1.7 8:36 PM [facility] 3_m2} [facility] Comment: Non GFR Calc Starting 07/27/2018, serum creatinine ba sed estimated GFR (eGFR) will be calculated using the Chronic Kidney Dise page hospital Epidemiology Collaboration (CKD-EPI) equation. GFR Estimate If >90 >60 mL/min/{1.73_m2} 04/12/2020 8: 36 PM [facility] Comment: GFR Calc Starting 07/27/2018, serum creatinine ba sed estimated GFR (eGFR) will be calculated using the Chronic Kidney Dise page hospital Epidemiology Collaboration (CKD-EPI) equation. Specimen Anatomical Collection Method Collection Time Receive d Time (Source) Location / / Volume Laterality Blood specimen 04/12/2020 8:02 PM 020 8:03 (specimen) CDT PM CDT Josie Medina PA-C LAB - BLOOD ORDERABLES Performing Organization Address City/State/ZIP Code Phon e Number M [facility] [address] [address] [employer] [address] [address], [place] [phone] (ABNORMAL) Potassium (04/12/2020 9:30 AM CDT) athologist Signature Potassium 3.3 (L) 3.4 - 5.3 04/12/2020 [place] mmol/L 9:55 AM CDT [facility] Specimen Anatomical Collection Method Collection Time Receive d Time (Source) Location / / Volume Laterality Blood specimen 04/12/2020 9:30 AM 020 9:39 (specimen) CDT AM CDT Car Joel MD LAB - BLOOD ORDERABLES Performing Organization Address City/State/ZIP Code Phon e Number [place] [facility] [address] [address] [place] [address] [address] [address], [place] [phone] BLADDER SCAN RESULT - HIM SCAN (04/12/2020 [...] of obstruction or gangrene Bariatric surgery status Hiatal hernia Diaphragmatic hernia without mention of obstruction or gangrene documented in this encounter Admitting Diagnoses Diagnosis [...] Given 04/13/2020 10:41 AM CDT 30 mg cyclobenzaprine (FLEXERIL) tablet 5-10 m g Given 04/14/2020 1:39 PM CDT 10 mg 5-10 mg, Oral, 3 TIMES DAILY PRN, muscle spasms, pain, Starting on Palmira 04/12/20 at 1725, Post-procedure diphenhydrAMINE (BENADRYL) capsule 25 mg 25 mg, Oral, EVERY 6 HOURS PRN, itching, Starting on Palmira 04/12/20 at 1725, Caution to be used when administering multiple Cent ral Nervous System (CRM MARKETING EXECUTIVE) depressing meds within a short time frame., Post-procedure diphenhydrAMINE (BENADRYL) injection 25 mg 25 mg, Intravenous, EVERY 6 HOURS PRN, i tching, Only give if patient unable to take PO., Starting on Palmira 04/12/20 at 1725, Cau tion to be used when administering multiple Central Nervous System (CRM MARKETING EXECUTIVE) depressing meds within a short time frame. [...] falls below 50% of baseline or less [id number],000/??L and notify provider., Post-procedure Given 04/13/2020 10:42 [...] opioid. ~ Hold dose while on IV EMT I/85. ~ Hold dose for analgesic side effects. [...] mg lactated ringers infusion New Bag 04/12/2020 5:51 [...] DAILY, First dose on Thu04/12/20 at 2100, DO NOT CRUSH., Post-procedure Given [...] g, Administer over 1-2 Minutes, Starting on Palmira 04/12/20 at 1725, [...] Administer over 72 Hours, First dose on Palmira 04/12/20 at 1730, Apply patch to skin, behind ear. Remove every 72 hours. DO NOT CUT PATCH. If dose is for a half patch, RN to remove only half of the backing. Each 1.5 mg patch delivers 1 mg of scopolamine. Reminder: Remove previous patch before applying new patch., Post-procedure scopolamine (TRANSDERM-SCOP) Patch in Pl [address] luis First dose on Palmira 04/12/20 at 1730, Chart every shift, confirming that patch is still in place on patient (no barcode scan needed). [facility] for dose information., Post-procedure sodium chloride (PF) 0.9% PF flush 3 mL Given 04/14/2020 9:00 AM CDT 3 mLs 3 mL, Intracatheter, EVERY 8 HOURS, First dose on Palmira 04/12/20 at 1730, And Q1H PRN, to lock peripheral IV dormant line., Post-procedure Given 04/13/2020 4:57 PM CDT 3 mLs Given 04/13/2020 10:42 AM CDT 3 mLs sodium chloride 0.9% (bag) Given 04/12/2020 11:58 AM 1,000 mLs Operative irrigation CDT Site/Surgical S ite PRN, Starting on Palmira 04/12/20 at 1158, Intra-procedure sodium chloride 0.9% Given 04/12/2020 11:58 AM 1,000 mLs Operative (bottle) irrigation CDT Site/Surgical S ite PRN, Starting on Palmira 04/12/20 at 1158, Intra-procedure topiramate (TOPAMAX) tablet 100 mg Given 04/13/2020 [...] Santana RN) 113 (Given - Provider: Jairo Botello, ANTONIA) 80 mg, Oral, DAILY, First dose on Thu04/13/20 at 0900, Post-proce dure busPIRone (BUSPAR) tablet 30 mg 2031 (Given - Provider: Emmanuel Livingston, ANTONIA) 104 (Given - Provider: Arden Santana, ANTONIA)2138 (Given - Provider: Kylie Ayoub, ANTONIA) 1020 (Given - Provider: Jairo Botello, ANTONIA) 30 mg, Oral, 2 TIMES DAILY, First dose on Palmira 04/12/20 at 2100, Po st-procedure clindamycin (CLEOCIN) infusion 900 mg (COMPLETED) 945 (Handoff - Provider: Leonarda Tapia RN)113 (Given - Provider: Annette Saeed APRN CRNA) Routine, 900 mg, Intravenous, PRE-OP/PRE -PROCEDURE, Starting Palmira 04/12/20 at 0905, For 1 dose, Give first dose within 1 hour PRIOR to incision., Indications: Perioperative Pharmacoprophylaxis, Pre-procedure clindamycin (CLEOCIN) infusion 900 mg (COMPLETED) 2031 (New Bag - Provider: Bing Livingston, ANTONIA) 045 (New Bag - Provider: Douglas Sidhu RN) Routine, 900 mg, Intravenous, EVERY 8 HO URS, First dose on Thu04/12/20 at 2000, For 2 doses, Administer first dose 6 hours after last dose (pre-op/intra-op). Must be completed within 24 hours after surge ry., Indications: Perioperative Pharmacoprophylaxis, Post-proced ure enoxaparin ANTICOAGULANT (LOVENOX) injection 40 mg 104 (Given - Provider: Arden Santana RN) 1020 [...] falls below 50% of baseline or less njxx069,000/??L and notify provider., Post-procedure escitalopram (LEXAPRO) tablet 20 mg 1040 (Given - Provider: Arden Santana RN) 1137 (Given - Provider: Jairo Botello, ANTONIA) 20 mg, Oral, DAILY, First dose on Thu04/13/20 at 0900, Post-proce dure gabapentin (NEURONTIN) capsule 900 mg 1914 (Not Given - Provider: Bing Livingston RN - Reason: Nausea - Comment: nausea)2032 (Given - Provider: Bing Livingston RN) 104 (Given - Provider: Arden Santana RN)1657 (Given - Provider: Arden Santana, ANTONIA)213 (Given - Provider: Kylie Ayoub, ANTONIA) 0855 (Given - Provider: Jairo Botello, ANTONIA) 900 mg, Oral, 3 TIMES DAILY, First dose on Thu04/12/20 at 1730, P ost-procedure levETIRAcetam (KEPPRA) tablet 500 mg 2031 (Given - Pro vider: Bing Livingston RN) 1041 (Given - Provider: Arden Santana RN)214 (Given - Provider: Kylie Ayoub RN) 0855 (Given - Provider: Jairo Botello, ANTONIA) 500 mg, Oral, 2 TIMES DAILY, First dose on Thu04/12/20 at 2100, P ost-procedure pantoprazole (PROTONIX) EC tablet 40 mg 2031 (Given - Provider: Bing Livingston RN) 104 (Given - Provider: Arden Santana, RN)2140 (Given - Provider: Kylie Ayoub RN) 1021 (Given - Provider: Jairo Botello, ANTONIA) 40 mg, Oral, 2 TIMES DAILY, First dose o n Thu04/12/20 at 2100, DO NOT CRUSH., Post-procedure potassium chloride ER (KLOR-CON M) CR tablet 10 mEq 1039 (Given - Provider: Arden Santana RN) 113 (Given - Provider: Jairo Botello, ANTONIA) 10 mEq, Oral, DAILY, First dose on Thu at 0900, DO NOT CRUSH., Post-procedure scopolamine (TRANSDERM) 72 hr patch 1 patch(Linked Chaitanya up 1) 2031 (Patch/Med Applied - Provider: Bing Livingston RN) 1350 (Due: Pat ch/Med Removed - Provider: Orders Generic Provider - Comment: Time automatically adjusted from order being discontinued) 1 patch, Transdermal, EVERY 72 HOURS, Ad system trainer over 72 Hours, First dose on Thu04/12/20 [...] 2052 (Patch in Place - Provider: Bing Livingston RN) 005 (Patch in Place - Provider: Douglas Sidhu RN)104 (Patch in Place - Provider: Arden Santana, ANTONIA)165 (Patch in Place - Provider: Arden Santana, ANTONIA) 0057 (Patch in Place - Provider: Kylie Ayoub RN)0855 (Patch in Place - Provider: Jairo Botello, ANTONIA) First dose on Palmira 04/12/20 at 1730, Chart every shift, confirming that [...] Arden Santana, ANTONIA)1657 (Given - Provider: Arden Santana, ANTONIA) 0057 (Not Given - Provider: Kylie jon RN - Reason: Patient sleeping)0900 (Given - Provider: Jairo Botello RN) 3 mL, Intracatheter, EVERY 8 HOURS, Firs t dose on Palmira 04/12/20 at 1730, And Q1H PRN, to lock peripheral IV dormant line., Post-procedure topiramate (TOPAMAX) tablet 100 mg 2033 (Given - Provi main: Bing Livingston RN)2200 (Canceled Entry - Provider: Bing Livingston RN - Comment: pt request meds early to sleep) 2140 (Given - Provider: Kylie Ayoub RN) 100 [...] 5-10 mg 1339 (Given - Provider: Jairo Botello RN) 5-10 mg, Oral, 3 TIMES DAILY PRN, muscle spasms, pain, Starting Palmira 04/12/20 at 1725, Post-procedure diphenhydrAMINE (BENADRYL) capsule 25 mg(Linked Group 2) 25 mg, Oral, EVERY 6 HOURS PRN, itching, Starting Palmira 04/12/20 at 1725, Caution to be used when administering multiple Central Nervous System (CRM MARKETING EXECUTIVE) depressing meds within a short time frame., Post-procedure diphenhydrAMINE (BENADRYL) injection 25 mg(Linked Group 2) 25 mg, Intravenous, EVERY 6 HOURS PRN, i tching, Only give if patient unable to take PO., Starting Palmira 04/12/20 at 1725, Caution to be used when administering multiple Central Nervous System (CRM MARKETING EXECUTIVE) depressi ng meds within a short time [...] mg 175 0 (Given - Provider: Bing Livingston RN) 0102 (Given - Provider: Douglas Sidhu RN)0758 (Given - Provider: Arden Santana RN) 0.3-0.5 mg, Intravenous, EVERY 2 HOURS P RN, other, For optimal opioid multimodal pain management to improve pain control and physical function IF patient cannot take oral opioid., Starting [facility] 04/12/20 at 1725, ~ Administer for pain not control led by oral opioid. ~ Hold dose while on IV EMT I/85. ~ Hold dose for analgesic side effects. [...] D insertion or accessing implanted port., Starting [facility] 04/12/20 at 1725, Do NOT give if [...] PRN, mild pain with VAD insertion., Starting [facility] 04/12/20 at 1725, Do NOT give if [...] 17 55 (See Alternative - Provider: Bing Livingston RN) 0102 (See Alternative - Provider: Douglas Sidhu RN)1438 (See Alternative - Provider: Edmond Mcgee, ANTONIA) [...] Livingston RN) 0102 (Given - Provider: Douglas Sidhu RN)1438 (Given - Provider: Edmond Mcgee, ANTONIA) 4 mg, Oral, EVERY 6 HOURS PRN, nausea, v omiting, Starting Palmira 04/12/20 at 1725, This is [...] 1 patch, Transdermal, EVERY 72 HOURS, Ad system trainer over 72 Hours, First dose on Palmira [...] used when administering multiple Central Nervous System (CRM MARKETING EXECUTIVE) depressing meds within a short time frame.
Post-procedure Or diphenhydrAMINE (BENADRYL) injection 25 mgJump to med 25 mg, Intravenous, EVERY 6 HOURS PRN, i tching, Only give if patient unable to take PO., Starting Palmira 04/12/20 at 1725
Caution to be used when administering multiple Central Nervous System (CRM MARKETING EXECUTIVE) depressing meds within a short time fram [...]
Post-procedure documented in this encounter Care Teams Grain Trimmer Relationship Specialty Start Date End Date Matheus Feliciano MD PCP - General 03/23/[address] [address] documented as of this encounter
--- OUTSIDE RECORDS SUMMARY | 2022-04-10 14:43 | XMS_ITS | Encounter Summary ---
:1980 Author Organization [facility] Address [address] [place] [address] Care Team Providers Name Role Phone Matheus Feliciano MD Primary Care Provider Encounter Details Date Type Department Care Team Description 04/08/2020 Orders Only [facility] Urgent Enc ounter for screening Care [facility] for other viral diseases [address] [phone] Social History Tobacco Use Types Packs/Day Years Used Date Former Smoker Cigarettes Smokeless Tobacco: Never Used Comments: as a child Alcohol Use Standard Drinks/Week Comments No 0 (1 standard drink = 0.6 oz pure alcoho l) Sex Assigned at Date Recorded Female 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 documented as of this encounter Plan of Treatment Not on filedocumented as of this encounter Procedures Procedure Name Priority Date/Time Associated Diagnosis Comme nts COVID-19 VIRUS Routine 04/08/2020 2:01 PM Encounter for Result s for this (CORONAVIRUS) BY CDT screening for other proc edure are in PCR viral diseases the results section. documented in this encounter Results Asymptomatic COVID-19 Virus (Coronavirus) by PCR (04/08/2020 2:01 PM CDT) [facility] Method Time Signature COVID-19 Nasopharyngeal 04/08/2020 [place] Virus PCR to 2:14 PM CDT [facility] COVID-19 Not Detected 04/09/2020 [facility] Virus PCR to 10:30 PM RESEARCH AND U [facility] - CDT DIAGNOSTIC Result LABORATORY, [facility] Comment: Collection of multiple specimens from th e same patient may be necessary to detect the virus. The possibility of a f alse negative should be considered if the patient's recent exposure or clinica l presentation suggests 2019 nCOV infection and diagnostic tests for other causes of illness are negative. Repeat testing may be considered in this setting. Patient sample was heat inactivated and amplified using the Nexus eWaterPCR SARS-CoV-2 assay (NUVETA.). The HDPCRTM JAGUAR S-CoV-2 assay is a reverse electronic tech real-time polymerase chain reaction (qRT-PCR) test intended for the qualitative detection of nucleic aci d from SARS-CoV-2 in human nasopharyngeal swabs, oropharyngeal swabs, anterior nasal swabs, mid-turbinate nasal swabs a s well as nasal aspirate, nasal wash, and bronchoalveolar lavage (BAL) specime ns from individuals who are suspected of COVID-19 by their healthcare provider . A negative result does not rule out the presence of real-time PCR inhibitors in the specimen or COVID-19 RNA in grant ntrations below the limit of detection of the assay. The possibility of a fals e negative should be considered if the patients recent exposure or clinical pr esentation suggests COVID-19. Additional testing or repeat testing req uires consultation with the laboratory. Nasopharyngeal specimen is the preferred choice for swab-based SARS CoV2 testing. When collection of a nasopharyn geal swab is not possible the following are acceptable alternatives: an oropharyngeal (OP) specimen collected by a healthcare professional, or a nasal mid-turbinate (NMT) swab collected by a healthcare professional or by onsite self-collection (using a flocked tapered swab), or an anterior nares specimen collected by a healthcare profe ssional or by onsite self-collection (using a round foam swab). (Centers for Disease Control) Testing performed by [facility] ([facility]) [address] [facility] [address] The test performance characteristics wer e determined by [facility]. It has not been cleared or approved by the FDA. The laboratory is regulated under the Cl inical Laboratory Improvement Amendments of 1988 (CLIA-88) as qualifie d to perform high-complexity testing. This test is used for clinical purposes. It should not be regarded as investigational or for research. Specimen (Source) Anatomical Collection Method Collection Time Re ceived Time Location / / Volume Laterality Specimen from 04/08/2020 2:01 04/08/2020 nasopharyngeal PM CDT 2:14 PM CDT structure (specimen) Car Joel MD LAB - MICRO GENERAL ORDERABL ES Performing Organization Address City/State/ZIP Code Phon e Number [facility] [place] [address] DIAGNOSTIC LABORATORY, [address] [facility] [address] [place] [address] [facility] documented in this encounter Visit Diagnoses Diagnosis Encounter for screening for other viral diseases documented in this encounter Care Teams Space Scheduler Relationship Specialty Start Date End Date Matheus Feliciano MD PCP - General 03/23/20 [facility] [address] [place] [address] documented as of this encounter
--- OUTSIDE RECORDS SUMMARY | 2022-04-10 14:43 | XMS_ITS | Encounter Summary ---
:1980 Author Organization [facility] Address [address] [place] [address]. [place] [address] Care Team Providers Name Role Phone Nemesio Costa MD Primary Care Provider Encounter Details Date Type Department Care Team Description 01/11/2020 Telephone [facility] E ogla Henley PA-C [address] [facility] S out [address] 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 documented as of this encounter Miscellaneous Notes Telephone Encounter - Valarie Castro RN - 01/13/2020 2:05 PM CDT Spoke with PANKAJ LYON who was able to clarify status of referral further. Informed now that patient did have her initial consult on 01/06/2020. February appointment is for 2 month follow up. Requested copy of consult note to be faxed. Awaiting review of note. Valarie Castro RN on 01/13/2020 at 2:10 PM Telephone Encounter - Valarie Castro RN - 01/11/2020 10:28 AM CDT Called [facility] to check on GI consult. Informed pt has appointment scheduled for 03/06/2020 for this consult. No further action needed at this time. Valarie Castro RN on 01/11/2020 at 10:29 AM documented in this encounter Plan of Treatment Not on filedocumented as of this encounter Visit Diagnoses Not on filedocumented in this encounter Care Teams Hr Business Partner Consultant Relationship Specialty Start Date End Date Nemeiso Costa MD PCP - General 05/30/11 03/22/20 documented as of this encounter
--- OUTSIDE RECORDS SUMMARY | 2022-04-10 14:43 | XMS_ITS | Encounter Summary ---
:1980 Author Organization [facility] Address [address] [place] [address]. 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 documented as of this encounter Progress Notes Valarie Castro RN - 03/06/2020 2:49 PM CDT Notified by fax from [facility] that pt is scheduled for upper GI video swallow and barium swallow with them on 03/08/2020 at 9:30 AM. Will watch Care Everywhere for results. Valarie Castro RN on 03/06/2020 at 2:50 PM Valarie Castro RN - 03/06/2020 2:49 PM CDT Radiology results reviewed by Dr. Joel. States he will discuss with pt. No further response required. Valarie Castro RN on 03/12/2020 at 11:16 AM documented in this encounter Plan of Treatment Not on filedocumented as of this encounter Visit Diagnoses Not on filedocumented in this encounter Care Teams Wirer Helper Relationship Specialty Start Date End Date Nemesio Costa MD PCP - General 05/30/11 03/22/20 documented as of this encounter
--- OUTSIDE RECORDS SUMMARY | 2022-04-10 14:43 | XMS_ITS | Encounter Summary ---
:1980 Author Organization [facility] Address [address] [place] [address] Care Team Providers Name Role Phone Nemesio Costa MD Primary Care Provider Matheus Feliciano MD Primary Care Provider Car Joel MD Unavailable Encounter Details Date Type Department Care Team Description 02/21/2020 Telephone [facility] Surgery Car Joel MD Clinic [place] [address] [place] [address] [address] [place] [address] [phone] Social History Tobacco Use Types Packs/Day Years Used Date Former Smoker Cigarettes Smokeless Tobacco: Never Used Comments: as a child Alcohol Use Standard Drinks/Week Comments No 0 (1 standard drink = 0.6 oz pure alcoho l) Sex Assigned at Date Recorded Female 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 documented as of this encounter Plan of Treatment Not on filedocumented as of this encounter Visit Diagnoses Not on filedocumented in this encounter Care Teams Internet Sourcer Relationship Specialty Start Date End Date Nemesio Costa MD PCP - General 05/30/11 03/22/20 Matheus Feliciano MD PCP - General 03/23/[address] [place] [address] aCr Joel MD Assigned Surgical Provider 06/01/20 [address] [facility] [address] [place] [address] documented as of this encounter
--- OUTSIDE RECORDS SUMMARY | 2022-04-10 14:43 | XMS_ITS | Encounter Summary ---
:1980 Author Organization [facility] Address [address] [place] [address]. [place] [address] Care Team Providers Name Role Phone Nemesio Costa MD Primary Care Provider Reason for Visit Reason Onset Date Comments Clinic Care Coordination - Follow-up 01/04/2020 Encounter Details Date Type Department Care Team Description 01/04/2020 Telephone [facility] Randi Contreras, Clinic C are Coordination Surgical Weight Loss ANTONIA Kimball - Follow-up Clinic [facility] WEIGHT LOSS [address] [facility] [address] [facility] [address] [place] [address] [place] [address] Social History Tobacco Use Types Packs/Day Years Used Date Former Smoker Cigarettes Smokeless Tobacco: Never Used Comments: as a child Alcohol Use Standard Drinks/Week Comments No 0 (1 standard drink = 0.6 oz pure alcoho l) Sex Assigned at Date Recorded Female 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 documented as of this encounter Miscellaneous Notes Telephone Encounter - Rehana Anaya RN - 01/04/2020 8:23 AM CDT Called [facility] and spoke with Alisa. Referred for LUQ pain S/P gastric bypass of 2010. Patient will have virtual visit as they are not doing any physical assessments at this time in clinic. Alisa stated she would call today to get in this week if possible. Called [facility] 1323 and patient had been called but patient didn't answer. Had to LM for patient to call and schedule appointment. Called patient at 1500 and LM for her to call clinic with date of [facility] appointment. Rehana Bryan, MS, RD, RN documented in this encounter Plan of Treatment Not on filedocumented as of this encounter Visit Diagnoses Not on filedocumented in this encounter Care Teams Senior Linux Unix Administrator Relationship Specialty Start Date End Date Nemesio Costa MD PCP - General 05/30/11 03/22/20 documented as of this encounter
--- OUTSIDE RECORDS SUMMARY | 2022-04-10 14:43 | XMS_ITS | Encounter Summary ---
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 documented as of this encounter Plan of Treatment Not on filedocumented as of this encounter Visit Diagnoses Not on filedocumented in this encounter Care Teams Quarry Worker Relationship Specialty Start Date End Date Nemesio Costa MD PCP - General 05/30/11 03/22/20 documented as of this encounter
--- OUTSIDE RECORDS SUMMARY | 2022-04-10 14:43 | XMS_ITS | Encounter Summary ---
:1980 Author Organization [facility] Address [address] [place] [address]. [place] [address] Care Team Providers Name Role Phone Nemesio Costa MD Primary Care Provider Reason for Visit Reason Onset Date Comments Clinic Care Coordination - Follow-up 01/17/2020 Encounter Details Date Type Department Care Team Description 01/17/2020 Telephone [facility] Randi Contreras, Clinic C are Coordination Surgical Weight Loss ANTONIA Kimball - Follow-up Clinic [facility] WEIGHT LOSS [address] [facility] [address] [facility] [address] [place] [address] [place] [id number] Social History Tobacco Use Types Packs/Day Years Used Date Former Smoker Cigarettes Smokeless Tobacco: Never Used Comments: as a child Alcohol Use Standard Drinks/Week Comments No 0 (1 standard drink = 0.6 oz pure alcoho l) Sex Assigned at Date Recorded Female 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 documented as of this encounter Miscellaneous Notes Telephone Encounter - Rehana Anaya RN - 01/17/2020 8:44 AM CDT Noted [facility] dictation received which was stat scanned for provider. UGI results noted yesterday were NL. Called patient and LM - that report was received from [facility] and no issues related to surgery - results yesterday test NL. These are all good things. Follow up with [facility] in 2 months as directed. To call if questions. Rehana Bryan MS, RD, RN documented in this encounter Plan of Treatment Not on filedocumented as of this encounter Visit Diagnoses Not on filedocumented in this encounter Care Teams Grocery Sacker Relationship Specialty Start Date End Date Nemesio Costa MD PCP - General 05/30/11 03/22/20 documented as of this encounter
--- OUTSIDE RECORDS SUMMARY | 2022-04-10 14:43 | XMS_ITS | Encounter Summary ---
:1980 Author Organization [facility] Address [facility] [place] [place] [address] Care Team Providers Name Role Phone Nemesio Costa MD Primary Care Provider Encounter Details Date Type Department Care Team Description 03/21/2020 Prep for Procedure [facility] Car Joel, H iatal hernia Surgery Clinic [place] (Primary Dx) [address] [place] [phone] [place] [address] [phone] Social History Tobacco Use Types Packs/Day Years Used Date Former Smoker Cigarettes Smokeless Tobacco: Never Used Comments: as a child Alcohol Use Standard Drinks/Week Comments No 0 (1 standard drink = 0.6 oz pure alcoho l) Sex Assigned at Date Recorded Female 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
--- OUTSIDE RECORDS SUMMARY | 2022-04-10 14:44 | XMS_ITS | Encounter Summary ---
:1980 Author Organization [facility] Address [address] [place] [address]. [place] [address] Care Team Providers Name Role Phone Nemesio Costa MD Primary Care Provider Reason for Visit Reason Onset Date Comments Clinic Care Coordination - Follow-up 12/07/2019 Encounter Details Date Type Department Care Team Description 12/07/2019 Telephone [facility] Randi Contreras, Clinic C are Coordination Surgical Weight Loss ANTONIA Kimball - Follow-up Clinic [facility] WEIGHT LOSS [address] [facility] [address] [facility] [address] [place] [address] [place] [address] Social History Tobacco Use Types Packs/Day Years Used Date Former Smoker Cigarettes Smokeless Tobacco: Never Used Comments: as a child Alcohol Use Standard Drinks/Week Comments No 0 (1 standard drink = 0.6 oz pure alcoho l) Sex Assigned at Date Recorded Female 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 documented as of this encounter Miscellaneous Notes Telephone Encounter - Rehana Anaya RN - 12/07/2019 1:30 PM CDT LM for patient to call clinic with update. When returns call, check how she is doing with suspected ulcer pain after med adjustment 11/30/2019 as listed below. Rx for 40 mg protonix BID x 1 week, then 20 mg BID afterward. Rehana Bryan MS, RD, RN documented in this encounter Plan of Treatment Not on filedocumented as of this encounter Visit Diagnoses Not on filedocumented in this encounter Care Teams Steam Trap Man Relationship Specialty Start Date End Date Nemesio Costa MD PCP - General 05/30/11 03/22/20 documented as of this encounter
--- OUTSIDE RECORDS SUMMARY | 2022-04-10 14:44 | XMS_ITS | Encounter Summary ---
:1980 Author Organization [place] Address [address] [place] [address]. [place] [address] Care Team Providers Name Role Phone Nemesio Costa MD Primary Care Provider Reason for Visit Auth/Cert Specialty Diagnoses / Procedures Referred By Contact Refer red To Contact Gastroenterology Diagnoses LUQ abdominal pain Bariatric surgery status LUQ abdominal pain [R10.12] Bariatric surgery status [Z98.84] Rh Endoscopy Procedures [facility] UGI ENDOSCOPY DIAG W OR W/O BRUSH/WASH ESOPHAGOGASTRODUODENOSCOPY (EGD) (fv) [address] [place] [address] Phone: Fax: Referral ID Status Reason Start Date Expiration Date Visits Requ ested Visits Authorized [id number] 1 1 Encounter Details Date Type Department Care Team Description 12/28/2019 Hospital Encounter [facility] [place] Li , Endoscopy Donny FLORES [address] [place], [place] GASTROINTESTINAL [id number] [place] [address] [place], [place] [address] (Wo rk) Social History Tobacco Use Types Packs/Day Years Used Date Former Smoker Cigarettes Smokeless Tobacco: Never Used Comments: as a child Alcohol Use Standard Drinks/Week Comments No 0 (1 standard drink = 0.6 oz pure alcoho l) Sex Assigned at Date Recorded Female 06/29/2021 12:12 PM [employer] COVID-19 Exposure Response Date Recorded In the last month, have you been in contact with No / Unsure 12/28/2019 8:48 AM CDT someone who was confirmed or suspected to have Coronavirus / COVID-19? documented as of this encounter Last Filed Vital Signs Vital Sign Reading Time Taken Comments Blood Pressure 95/67 12/28/2019 10:30 AM CDT Pulse 56 12/28/2019 9:45 AM CDT Temperature - - Respiratory Rate 14 12/28/2019 10:30 AM CDT Oxygen Saturation 99% 12/28/2019 10:20 AM CDT Inhaled Oxygen Concentration - - Weight 79.8 kg (176 lb) 12/28/2019 9:13 AM CDT Height 160 cm (5' 3) 12/28/2019 9:13 AM CDT Body Mass Index 31.18 12/28/2019 9:13 AM CDT documented in this encounter Discharge Instructions Discharge InstructionsBreann Loja RN - 12/28/2019 10:22 AM CDT The patient has received a copy of the Provation report the doctor has written and discharge instructions have been discussed with the patient and responsible adult. All questions were addressed and answered prior to patient discharge. AttachmentsThe following attachments cannot be sent through Care Everywhere. Helicobacter Pylori Culture (Guyanese)H. pylori and Ulcers, Understanding (Guyanese)documented in this encounter Medications at Time of Discharge Medication Sig Dispensed Refills Start Date End Date atomoxetine (STRATTERA) Take 80 mg by mouth 0 80 MG capsule daily. busPIRone HCl (BUSPAR) Take 30 mg by mouth 0 30 MG tablet 2 times daily calcium Take 1 tablet by 90 tablet 07/13/2013 carbonate-vitamin D mouth 3 times daily (CALCIUM 500 + D) 500-400 MG-UNIT TABS tabltIndications: Bariatric surgery status, Overweight and obesity(278.0) cyanocobalamin 1000 Inject 1 mL (1,000 1 mL 11 07/13/20 13 MCG/ML mcg) into the muscle injectionIndications: every 30 days Bariatric surgery status, Overweight and obesity(278.0) escitalopram (LEXAPRO) Take 20 mg by mouth 0 20 MG tablet daily fluticasone (FLONASE) 50 Tererro 30 mcg in 0 MCG/ACT nasal spray nostril daily as needed gabapentin (NEURONTIN) Take 900 mg by mouth 0 300 MG capsule 3 times daily (takes 3 x 300mg) levETIRAcetam (KEPPRA) Take 500 mg by mouth 0 500 MG tablet 2 times daily lidocaine (LIDODERM) 5 % Place 1 patch onto 0 patch the skin daily as needed Multiple Take 1 tablet by 0 Vitamins-Minerals mouth every morning (MULTIVITAMIN & MINERAL PO)Indications: Bariatric surgery status, Overweight and obesity(278.0) ondansetron (ZOFRAN-ODT) Take 4 mg by mouth 0 07/2020 4 MG ODT tab every 6 hours as needed SUMAtriptan (IMITREX) Take 100 mg by mouth 0 100 MG tablet every 8 hours as needed topiramate (TOPAMAX) 100 Take 100 mg by mouth 0 MG tablet At Bedtime Capsaicin 0.1 % cream Apply 1 Application 0 02/1704/12/2020 topically Cyanocobalamin (VITAMIN Inject as directed. 0 02/15/2020 B-12 IJ) cyclobenzaprine Take 10 mg by mouth 0 08/26/2018 04/11/2020 (FLEXERIL) 10 MG tablet diclofenac (VOLTAREN) 1 Apply 4 g topically 0 04/12/2020 % topical gel dicyclomine (BENTYL) 10 Take 10 mg by mouth 0 07/202004/12/2020 MG capsule hydrocortisone, 0 08/22/2018 0 Perianal, (PROCTOZONE-HC) 2.5 % cream levothyroxine Take by mouth daily. 0 0 02/15/2020 (LEVOTHROID) 75 MCG tablet LORazepam (ATIVAN) 1 MG Take 1 mg by mouth 0 05/0 04/201904/12/2020 tablet Multiple Vitamins-Iron Take 2 capsules by 60 tablet 11 07/1302/15/2020 TABSIndications: mouth daily Bariatric surgery status, Overweight and obesity(278.0) Needle, Disp, 25G X 1 1 Device every 30 1 each 11 201202/15/2020 MISCIndications: days Bariatric surgery status, Overweight and obesity(278.0) pantoprazole (PROTONIX) Take 1 tablet (40 120 tablet 0 12/1502/15/2020 40 MG EC mg) by mouth 2 times tabletIndications: LUQ daily abdominal pain, Bariatric surgery status sucralfate (CARAFATE) 1 Take 10 mLs (1 g) by 400 mL 1 02/15/2020 GM/10ML mouth 4 times daily suspensionIndications: for 10 days Epigastric pain syringe, disposable, 1 1 Device every 30 1 each 11 201202/09/2021 ML MISCIndications: days Bariatric surgery status, Overweight and obesity(278.0) Syringe/Needle, Disp, 0 03/2020 (BD LUER-LORIE SYRINGE) traZODone (DESYREL) 100 Take 100 mg by mouth 0 04/12/2020 MG tablet ZOLMitriptan (ZOMIG PO) Take 5 mg by mouth 0 04/12/2020 as needed documented as of this encounter H&P Notes [place] Li MD - 12/28/2019 8:53 AM CDT Pre-Endoscopy History and Physical Gricelda Roberts Date of : 1980 Age: [age] year old Date of Procedure: 12/28/2019 Primary care provider: Nemesio Costa Type of Endoscopy: Gastroscopy with possible biopsy, possible dilation Reason for Procedure: pain Type of Anesthesia Anticipated: Conscious Sedation HPI: Gricelda is a 39 year old female who will be undergoing the above procedure. A history and physical has been performed. The patient's medications and allergies have been reviewed. The risks and benefits of the procedure and the sedation options and risks were discussed with thepatient. All questions were answered and informed consent was obtained. She denies a personal or family history of anesthesia complications or bleeding disorders. Patient Active Problem List Diagnosis ??? Cervicalgia ??? Chronic bilateral low back pain without sciatica ??? Bariatric surgery status ??? Malnutrition following gastrointestinal surgery ??? Class 1 obesity due to excess calories without serious comorbidity with body mass index (BMI) of30.0 to 30.9 in adult Past Medical History: Diagnosis Date ??? Back pain, chronic ??? Depressive disorder ??? Insomnia ??? Migraine ??? Substance abuse (H) opiod dependence ??? Thyroid disease Past Surgical History: Procedure Laterality Date ??? BYPASS GASTRIC DUODENAL SWITCH Social History Tobacco Use ??? Smoking status: Former Smoker Types: Cigarettes ??? Smokeless tobacco: Never Used ??? Tobacco comment: as a child Substance Use Topics ??? Alcohol use: No History reviewed. No pertinent family history. Prior to Admission medications Medication Sig Start Date End Date Taking? Authorizing Provider Ascorbic Acid (VITAMIN C PO) Take by mouth. Reported, Patient atomoxetine (STRATTERA) 80 MG capsule Take 80 mg by mouth daily. Reported, Patient busPIRone (BUSPAR) 15 MG tablet Take 15 mg by mouth 2 times daily. Reported, Patient calcium carbonate-vitamin D (CALCIUM 500 + D) 500-400 MG-UNIT TABS tablt Take 1 tablet by mouth 3 times daily 07/13/13 Car Joel MD Calcium Carbonate-Vitamin D (OYSTER SHELL CALCIUM/D) 500-400 MG-UNIT TABS TAKE 1 TABLET BY MOUTH 3 TIMES A DAY 05/08/13 Montserrat Shepherd PA-C Cyanocobalamin (VITAMIN B-12 IJ) Inject as directed. Reported, Patient cyanocobalamin 1000 MCG/ML injection Inject 1 mL (1,000 mcg) into the muscle every 30 days 07/13/13 Car Joel MD doxycycline monohydrate (ADOXA) 100 MG tablet Take 100 mg by mouth daily Reported, Patient escitalopram (LEXAPRO) 20 MG tablet Take 20 mg by mouth daily Reported, Patient Fluticasone Propionate (FLONASE NA) Tererro 30 mcg in nostril Reported, Patient gabapentin (NEURONTIN) 300 MG capsule Take 300 mg by mouth 3 times daily Reported, Patient levETIRAcetam (KEPPRA PO) Reported, Patient levothyroxine (LEVOTHROID) 75 MCG tablet Take by mouth daily. Reported, Patient Multiple Vitamins-Iron TABS Take 2 capsules by mouth daily 07/13/13 Car Joel MD Multiple Vitamins-Minerals (MULTIVITAMIN & MINERAL PO) Take 2 tablets by mouth At Bedtime Reported, Patient Needle, Disp, 25G X 1 MISC 1 Device every 30 days 07/13/13 Car Joel MD pantoprazole (PROTONIX) 20 MG EC tablet Take 1 tablet (20 mg) by mouth 2 times daily First week take40 mg twice a day then 20 mg twice a day afterward. 11/29/19 Car Joel MD pantoprazole (PROTONIX) 40 MG EC tablet Take 1 tablet (40 mg) by mouth 2 times daily 12/16/19 Montserrat Shepherd PA-C pantoprazole (PROTONIX) 40 MG EC tablet Take 1 tablet (40 mg) by mouth daily 11/15/19 Montserrat Shepherd PA-C sucralfate (CARAFATE) 1 GM/10ML suspension Take 10 mLs (1 g) by mouth 4 times daily for 10 days 11/15/19 11/25/19 Montserrat Shepherd PA-C SUMATRIPTAN SUCCINATE PO Take by mouth. Reported, Patient syringe, disposable, 1 ML MISC 1 Device every 30 days 07/13/13 Car Joel MD Syringe/Needle, Disp, (BD LUER-LORIE SYRINGE) Reported, Patient topiramate (TOPAMAX) 100 MG tablet Take 100 mg by mouth 2 times daily Reported, Patient ZOLMitriptan (ZOMIG PO) Take by mouth. Reported, Patient Allergies Allergen Reactions ??? Keflex [Cephalexin Hcl] Itching and Rash REVIEW OF SYSTEMS: 5 point ROS negative except as noted above in HPI, including Gen., Resp., CV, GI & system review. PHYSICAL EXAM: There were no vitals taken for this visit. Estimated body mass index is 30.45 kg/m?? as calculated from the following: Height as of 11/17/19: 1.651 m (5' 5). Weight as of 11/17/19: 83 kg (183 lb). GENERAL APPEARANCE: alert, and oriented MENTAL STATUS: alert AIRWAY EXAM: Mallampatti Class I (visualization of the soft palate, fauces, uvula, anterior and posterior pillars) RESP: lungs clear to auscultation - no rales, rhonchi or wheezes CV: regular rates and rhythm DIAGNOSTICS: Not indicated IMPRESSION ASA Class 2 - Mild systemic disease PLAN: Plan for Gastroscopy with possible biopsy, possible dilation. We discussed the risks, benefits and alternatives and the patient wished to proceed. The above has been forwarded to the consulting provider. Signed Electronically by: [place] Li MD December 28, 2019 documented in this encounter Miscellaneous Notes Result Encounter Note - [place] Li MD - 12/28/2019 10:35 AM CDT Pt informed of results. documented in this encounter Plan of Treatment Not on filedocumented as of this encounter Procedures Procedure Name Priority Date/Time Associated Diagnosis Comme nts SURGICAL PATHOLOGY Routine 12/28/2019 9:44 AM Res ults for this EXAM CDT procedure are i n the results section. ESOPHAGOGASTRODUODE 12/28/2019 9:32 AM LUQ abdom inal pain NOSCOPY, WITH CDT Bariatric surgery BIOPSY status Special Needs Emailed EGD instructions to [email or web address] per patient. Gave pt # to [employer] Test schedulers [phone] . Reminded pt to wear a mask and enter through Main front door. UPPER GI ENDOSCOPY Routine 12/28/2019 9:19 AM CDT Results for this procedure are in the results sec tion. documented in this encounter Results Surgical pathology exam (12/28/2019 9:44 AM CDT) Component Value Ref Test Analysis Performed At [facility] Range Method Time Signature Copath Report Patient Name: GRICELDA ROBERTS MR#: [id number] Specimen #: [id number] Collected: 12/28/2019 Received: 12/28/2019 Reported: 12/29/2019 10:36 Ordering Phy(s): [place] LI For improved result formatting, select 'View Enhanced Report Format' under Linked Documents section. SPECIMEN(S): Gastric biopsies, random FINAL DIAGNOSIS: Stomach, random biopsies: - Negative for erosions, inflammatory infiltrates, reactive gastropathy, atrophy, intestinal metaplasia and malignancy. - Negative for Helicobacter-like organisms. Electronically signed out by: Jovan Barahona M.D. CLINICAL HISTORY: Rule out H. pylori. ??Left upper quadrant abdominal pain. ?? Bariatric surgery status. GROSS: The specimen is received in formalin labeled with the patien t's name, identifying information and designated random gastric biopsies. ??It consists of two pink tissu e fragments, each up to 0.3 cm. ??Submitted entirely in one block. (Dictated by: EDWARD Ferro 12/28/2019 11:0 5 AM) MICROSCOPIC: Sections show fragments of gastric fundic mucosa. ??The surf pedro luis and glandular epithelium are without abnormalities. ??There is no evidence of erosions, inflammat ory infiltrates, changes of reactive gastropathy, atrophy, intestinal metaplasia or malignancy. ??With hematox ylin and eosin stain, no Helicobacter-like organisms were identified. The technical component of this testing was completed at the [facility], with the professional compo nent performed at the [facility], [address] [place] [address] ??[phone] ([phone]) CPT Codes: A: 08432-ML2 COLLECTION SITE: Client: [facility] Location: [facility]ENDO (R) Specimen (Source) Anatomical Collection Method Collection Time Re ceived Time Location / / Volume Laterality Tissue specimen STOMACH STRUCTURE 12/28/2019 9:44 AM (specimen) / Unknown CDT [place] VILLARREAL - NERY MARLOW Performing Organization Address City/State/ZIP Code Phon e Number COPATH UPPER GI ENDOSCOPY (12/28/2019 9:19 AM CDT) Component Value Ref Test Analysis Performed At [facility] Range Method Time Signature Upper GI [facility] RADIO LOGY Endoscopy RESULTS Patient Name: Gricelda Lamcalf ?Procedure Date: 12/28/2019 9:19 AM ? Accou nt Number: [id number] Date of : 1980 ? Admit Type: Out patient Age: 39 ? Gender: Female Attending MD: Houston navarro MD ?? Total Sedation Time: 5_minutes continuous bedside 1:1 Instrument Name: 206 - Gastroscope ? Procedure: ?Upper GI endoscopy Indications: ?Abdominal pain in the left upper quadrant Providers: ?[place] Li MD (Doc tor) Referring MD: ? Bonnie sykes MD (Referring MD) Medicines: ?Midazolam 2 mg IV, Fentanyl 100 micrograms IV, ?Benzocaine spray Complications: ?No immediate complications. Procedure: ?Pre-Anesthesia Assessment: ?- Prior to the procedure, a History and Physical ?was performed, and patient medications and ?allergies were reviewed. The patient is competent. ?The risks and benefits of the procedure and the ?sedation options and risks were discussed with the ?patient. All questions were answered and informed ?consent was obtained. Patient identification and ?proposed procedure were verified by the physician ?in the procedure room. Mental Status Examination: ?alert and oriented. Airway Examination: normal ?oropharyngeal airway and neck mobility. Respiratory ?Examination: clear to auscultation. CV Examination: ?normal. Prophylactic Antibiotics: The patient does ?not require prophylactic antibiotics. Prior ?Anticoagulants: The patient has taken no previous ?anticoagulant or antiplatelet agents. ASA Grade ?Assessment: II - A patient with mild systemic ?disease. After reviewing the risks and benefits, ?the patient was deemed in satisfactory condition to ?undergo the procedure. The anesthesia plan was to ?use moderate sedation / analgesia (conscious ?sedation). Immediately prior to administration of ?medications, the patient was re-assessed for ?adequacy to receive sedatives. The heart rate, ?respiratory rate, oxygen saturations, blood ?pressure, adequacy of pulmonary ventilation, and ?response to care were monitored throughout the ?procedure. The physical status of the patient was ?re-assessed after the procedure. ?After obtaining informed consent, the endoscope was ?passed under direct vision. Throughout the ?procedure, the patient's blood pressure, pulse, and ?oxygen saturations were monitored continuously. The ?Olympus Gastroscope, Model # GIF-H190, [place] # ?206, SN # [id number] was introduced through the mouth, ?and advanced to the efferent jejunal loop. The ?upper GI endoscopy was accomplished without ?difficulty. The patient tolerated the procedure ?well. ? Findings: ? The esophagus was normal. ? Evidence of a gastric bypass was found. A gastric p ouch with a small ? size was found. The staple line appeared intact. The gastrojejunal ? anastomosis was characterized by healthy appearing mu cosa. This was ? traversed. The smjmr-zx-gefcybe limb was characterize d by healthy ? appearing mucosa. The gmoipiso-pg-pzmezlt limb was examined. Biopsies ? were taken with a cold forceps for histology. V erification of patient ? identification for the specimen was done. Estimated b lood loss was ? minimal. ? The examined jejunum was normal. No biopsies or oth er specimens were ? collected for this exam. ? Impression: ? - Normal esophagus. ?- Gastric bypass with a small-sized pouch and ?intact staple line. Gastrojejunal anastomosis ?characterized by healthy appearing mucosa. Biopsied. ?- Normal examined jejunum. No specimens collected. Recommendation: ? - Await pathology results. ?- Continue present me dications. ? Procedure Code(s): ? --- Professional --- ? 20750, Esophagogastroduodenoscopy, flexible, transo ral; with biopsy, ? single or multiple Diagnosis Code(s): ? --- Professional --- ? R10.12, Left upper quadrant pain CPT copyright 2018 [employer]. All rights reserved. The codes documented in this report are prelimin tabatha and upon certified orthotist/pedorthist review may be revised to meet current compliance requirements. Electronically signed by Houston Li MD [place] Li MD 12/28/2019 9:50:40 AM I was physically present for the entire viewing portion of t he exam. [place] Li MD Number of Addenda: 0 Note Initiated On: 12/28/2019 9:19 AM MRN: ?[id number] Procedure Date: ? 12/28/2019 9:19:08 AM Total Procedure Duration: 0 hours 3 minutes 20 seconds Estimated Blood Loss: ? Scope In: 9:42:34 AM Scope Out: 9:45:54 AM Specimen (Source) Anatomical Collection Method Collection Time Re ceived Time Location / / Volume Laterality 12/28/2019 9:19 AM CDT Bonnie Estes PROCEDURES Performing Organization Address City/State/ZIP Code Phon e Number RADIOLOGY RESULTS documented in this encounter Visit Diagnoses Not on filedocumented in this encounter Administered Medications Inactive Administered Medications - up to 3 most recent administrations Medication Order MAR Action Action Date Dose Rate Site benzocaine 20% (HURRICAINE/TOPEX) Given 12/28/2019 9:40 AM CDT 1 each 20 % spray PRN, Starting on 12/28/19 at 0940, Intra-procedure fentaNYL (PF) (SUBLIMAZE) injection Given 12/28/2019 9:40 AM CDT 100 mcg PRN, Administer over 3-5 Minutes, Starting on 12/28/19 at 0940, Intra-procedure flumazenil (ROMAZICON) injection 0.2 mg 0.2 mg, Intravenous, EVERY 1 MIN PRN, benzodiazepine r eversal, over sedation, Administer over 1 Minutes, Starting on W ed 12/28/19 at 1056, For 12 hours, Give over 15 seconds. If inadequate response after 45 seconds, may repeat up to a MAX total dose of 1 mg. Continue monitoring until discharge criteria are met for a minimum of 2 hours Irritant. For ordered IV doses 0 .1-1 mg, give IV Push undiluted. Administer each 0.2mg over 15 seconds., Post-procedure lidocaine (LMX4) kit Topical, EVERY 1 HOUR PRN, pain, with VA D insertion or accessing implanted port., Starting on Thu12/28/19 at 0859, Do NOT give if patient has a history of allergy to any local anesthetic or any deana prod uct. Apply at least 30 minutes prior to VAD insertion or port access. In divided dos es as needed for size of site for insertion with MAX Dose: 2.5 g (?? of 5 g tube), Pre-procedure lidocaine 1 % 0.1-1 mL 0.1-1 mL, Other, EVERY 1 HOUR PRN, mild pain with VAD insertion., Starting on Thu12/28/19 at 0859, Do NOT give if patient has a history of allergy to any local anesthetic or any deana product. MAX dose 1 mL subcu taneous OR intradermal in divided doses as needed for VAD insertion., Pre-proced ure May continue current IV fluid if patient has IV fluids infusing until discharge. CONTINUOUS PRN, Starting on Thu12/28/19 at 1056, Until Thu12/28/19 at 1257, Post-procedure midazolam (VERSED) injection Given 12/28/2019 9:40 AM CDT 2 mg Administer over 2 Minutes, PRN, Starting on Thu12/28/19 at 0940, Intra-procedure naloxone (NARCAN) injection 0.1-0.4 mg 0.1-0.4 mg, Intravenous, EVERY 2 MIN PRN , opioid reversal, Starting on Thu12/28/19 at 1056, For 24 hours, For apnea or imminent respirato ry arrest: give 0.4 mg IV undiluted Q 2 minutes PRN until desired degree of reversal is obtained, stop opioid and notify provider. Continue monitoring until dischar ge criteria are met for a minimum of 2 hours. For severe sedation, decrease in respiratory depth, quality or Respiratory Rate less than 8: give 0.1 m g IV Q 2 minutes x 3 doses, stop opioid and notify provider. Try to minimize reversa l of analgesia especially in end-of-life patients. Continue monitoring until disc harge criteria are met for a minimum of 2 hours For ordered IV doses 0.1-2mg give IVP. Give each 0.4mg over 15 seconds in emergency situations. For non-emergent s ituations further dilute in 9mL of NS to facilitate titration of response., Post-procedure ondansetron (ZOFRAN) injection 4 mg 4 mg, Intravenous, ONCE PRN, nausea, vomiting, Adminis ter over 2-5 Minutes, Starting on Thu12/28/19 at 0859, For 1 d ose, Give in ENDO pre procedure prep area. Irritant. For ordered IV doses 0.1-4 mg, give IV Push undiluted over 2-5 minutes., Pre-procedure ondansetron (ZOFRAN) injection 4 mg 4 mg, Intravenous, EVERY 6 HOURS PRN, nausea, vomiting , Administer over 2-5 Minutes, Starting on Thu12/28/19 at 1056, This is Step 1 of nausea and vomiting management. If nausea not resolved in 15 minutes, go t o Step 2 prochlorperazine (COMPAZINE). Irritant. For ordered IV do ses 0.1-4 mg, give IV Push undiluted over 2-5 minutes., Post-procedure ondansetron (ZOFRAN-ODT) ODT tab 4 mg 4 mg, Oral, EVERY 6 HOURS PRN, nausea, v omiting, Starting on Thu12/28/19 at 1056, This is Step 1 of nausea and vomiting management. If n ausea not resolved in 15 minutes, go to Step 2 prochlorperazine (COMPAZINE). Do not push through foil backing. Peel back foil and gently remove. Place on to ngue immediately. Administration with liquid unnecessary W ith dry hands, peel back foil backing and gently remove tablet. Do not push oral d isintegrating tablet through foil backing. Administer immediately on tongue and oral disintegrati ng tablet dissolves in seconds, then swallow with saliva. Liquid not required ., Post-procedure sodium chloride (PF) 0.9% PF flush 3 mL 3 mL, Intracatheter, EVERY 1 MIN PRN, li ne flush, for peripheral IV flush post IV meds, Starting on Thu12/28/19 at 0859, Pre-procedure sodium chloride (PF) 0.9% PF flush 3 mL 3 mL, Intracatheter, EVERY 8 HOURS, Firs t dose on Thu12/28/19 at 0900, And Q1H PRN, to lock peripheral IV dormant line., Pre-procedure sodium chloride (PF) 0.9% PF flush 3 mL 3 mL, Intravenous, EVERY 1 MIN PRN, line flush, after medication administration, Starting on Thu12/28/19 at 0859, For peripheral IV flu sh post IV meds, Pre-procedure sodium chloride (PF) 0.9% PF flush 3 mL 3 mL, Intravenous, EVERY 1 MIN PRN, line flush, after medication administration. For peripheral IV flush post IV meds, Starting on Thu12/28/19 at 1056, Post-procedure documented in this encounter Active and Recently Administered Medications Times are shown in CDT. Scheduled Medication Order 12/26/2019 12/27/2019 12/28/2019 0.9% sodium chloride BOLUS 0900 (Canceled Entry - Provider: Orders Generic Provider - Comment: Automatically canceled at discontinue of medication order) Intravenous, 500 mL, ONCE, at 500 mL/hr, Administer over 1 Hours, Thu12/28/19 at 0900, For 1 dose, ~ For hypotension hypotensive (Systolic Blood Pressure less than 100 mmHg) prior to the procedure. Imme diately recheck Blood Pressure and if Sy stolic Blood Pressure still below 100 mmHg, give IV bolus. ~ For nausea/vomiting, give IV bolus. Notify Provider if IV bolus given., Pre-procedure sodium chloride (PF) 0.9% PF flush 3 mL 0900 (Canceled Entry - Provider: Orders Generic Provider - Comment: Automatically canceled at discontinue of medication order) 3 mL, Intracatheter, EVERY 8 HOURS, Firs t dose on Thu12/28/19 at 0900, And Q1H PRN, to lock peripheral IV dormant line., Pre-procedure PRN Medication Order 12/26/2019 12/27/2019 12/28/2019 benzocaine 20% (HURRICAINE/TOPEX) 20 % spray 0940 (Given - Provider: Houston Li MD) PRN, Starting Thu12/28/19 at 0940, Intra-procedure fentaNYL (PF) (SUBLIMAZE) injection 0940 (Given - Provider: Houston Li MD) PRN, Administer over 3-5 Minutes, Starting Thu12/28/19 at 0940, Intra-procedure flumazenil (ROMAZICON) injection 0.2 mg 0.2 mg, Intravenous, EVERY 1 MIN PRN, be nzodiazepine reversal, over sedation, Administer over 1 Minutes, Starting Thu12/28/19 at 1056, For 12 hours, Give over 15 seconds. If inadequate response after 45 seconds, may repeat up to a MAX total d ose of 1 mg. Continue monitoring until discharge criteria are met for a minimum of 2 hours Irritant. For ordered IV doses 0.1-1 mg, give IV Push undiluted. Administer each 0.2mg over 15 seconds., Post-procedure lidocaine (LMX4) kit Topical, EVERY 1 HOUR PRN, pain, with VA D insertion or accessing implanted port., Starting Thu12/28/19 at 0859, Do NOT give if patient has a history of allergy to any local anesthetic or any deana pro duct. Apply at least 30 minutes prior to VAD insertion or port access. In divided doses as needed for size of site for insertion with MAX Dose: 2.5 g (?? of 5 g tube), Pre-procedure lidocaine 1 % 0.1-1 mL 0.1-1 mL, Other, EVERY 1 HOUR PRN, mild pain with VAD insertion., Starting Thu12/28/19 at 0859, Do NOT give if patient has a history of allergy to any local anesthetic or any deana product. MAX dose 1 mL subcutaneous OR intradermal in divid ed doses as needed for VAD insertion., Pre-procedure May continue current IV fluid if patient has IV fluids infusing until discharge. CONTINUOUS PRN, Starting Thu12/28/19 at 1056, Until Thu12/28/19 at 1257, Post-procedure midazolam (VERSED) injection 094 0 (Given - Provider: Houston Li MD) Administer over 2 Minutes, PRN, Starting Thu12/28/19 at 0940, In tra-procedure naloxone (NARCAN) injection 0.1-0.4 mg 0.1-0.4 mg, Intravenous, EVERY 2 MIN PRN , opioid reversal, Starting Thu12/28/19 at 1056, For 24 hours, For apnea or imminent respiratory arrest: give 0.4 mg IV undiluted Q 2 minutes PRN until desired de gree of reversal is obtained, stop opioi d and notify provider. Continue monitoring until discharge criteria are met for a minimum of 2 hours. For severe sedation, decrease in respiratory depth, quality or Respiratory Rate less than 8: give 0. 1 mg IV Q 2 minutes x 3 doses, stop opioid and notify provider. Try to minimize reversal of analgesia especially in end-of-life patients. Continue monitoring unti l discharge criteria are met for a minim um of 2 hours For ordered IV doses 0.1- 2mg give IVP. Give each 0.4mg over 15 seconds in emergency situations. For non- emergent situations further dilute in 9mL of NS to facilitate titration of response., Post-procedure ondansetron (ZOFRAN) injection 4 mg 4 mg, Intravenous, ONCE PRN, nausea, vom iting, Administer over 2-5 Minutes, Starting 12/28/19 at 0859, For 1 dose, Give in ENDO pre procedure prep area. Irritant. For ordered IV doses 0.1-4 mg, give IV Push undiluted over 2-5 minutes., Pre-procedure ondansetron (ZOFRAN) injection 4 mg(Linked Group 1) 4 mg, Intravenous, EVERY 6 HOURS PRN, na usea, vomiting, Administer over 2-5 Minutes, Starting 12/28/19 at 1056, This is Step 1 of nausea and vomiting management. If nausea not resolved in 15 minutes, go to Step 2 prochlorperazine (COMPAZIN E). Irritant. For ordered IV doses 0.1-4 mg, give IV Push undiluted over 2-5 minutes., Post-procedure ondansetron (ZOFRAN-ODT) ODT tab 4 mg(Linked Group 1) 4 mg, Oral, EVERY 6 HOURS PRN, nausea, v omiting, Starting 12/28/19 at 1056, This is Step 1 of nausea and vomiting management. If nausea not resolved in 15 minutes, go to Step 2 prochlorperazine (COMP AZINE). Do not push through foil backing . Peel back foil and gently remove. Place on tongue immediately. Administration with liquid unnecessary With dry hands, peel back foil backing and gently remove t ablet. Do not push oral disintegrating t ablet through foil backing. Administer immediately on tongue and oral disintegrating tablet dissolves in seconds, then swallow with saliva. Liquid not required., Post-procedure sodium chloride (PF) 0.9% PF flush 3 mL 3 mL, Intracatheter, EVERY 1 MIN PRN, li ne flush, for peripheral IV flush post IV meds, Starting Thu12/28/19 at 0859, Pre-procedure sodium chloride (PF) 0.9% PF flush 3 mL 3 mL, Intravenous, EVERY 1 MIN PRN, line flush, after medication administration, Starting 12/28/19 at 0859, For peripheral IV flush post IV meds, Pre-procedure sodium chloride (PF) 0.9% PF flush 3 mL 3 mL, Intravenous, EVERY 1 MIN PRN, line flush, after medication administration. For peripheral IV flush post IV meds, Starting Thu12/28/19 at 1056, Post-procedure Linked Groups Order Group 1: ondansetron (ZOFRAN-ODT) ODT tab 4 mgJump to med 4 mg, Oral, EVERY 6 HOURS PRN, nausea, v omiting, Starting Thu12/28/19 at 1056
This is Step 1 of nausea and vomiting management. If nausea not resolved in 15 minutes, go to St ep 2 prochlorperazine (COMPAZINE). Do no t push through foil backing. Peel back foil and gently remove. Place on tongue immediately. Administration with liquid unnecessary With dry hands, peel b ack foil backing and gently remove table t. Do not push oral disintegrating tablet through foil backing. Administer immediately on tongue and oral disintegrating tablet dissolves in seconds, then swallow with saliva. Liquid not required.
Po st-procedure Or ondansetron (ZOFRAN) injection 4 mgJump to med 4 mg, Intravenous, EVERY 6 HOURS PRN, na usea, vomiting, Administer over 2-5 Minutes, Starting 12/28/19 at 1056
This is Step 1 of nausea and vomiting management. If nausea not resolved in 15 minutes, go to Step 2 prochlorperazine (COMPAZINE). Irritant. For ordered IV doses 0.1-4 mg, give IV Push undiluted over 2-5 minutes.
Post-procedure documented in this encounter Care Teams Duct Layer Relationship Specialty Start Date End Date Nemesio Costa MD PCP - General 05/30/11 03/22/20 documented as of this encounter
--- OUTSIDE RECORDS SUMMARY | 2022-04-10 14:44 | XMS_ITS | Encounter Summary ---
:1980 Author Organization [facility] Address [address] [place] [address]. [place] [address] Care Team Providers Name Role Phone Nemesio Costa MD Primary Care Provider Matheus Feliciano MD Primary Care Provider Car Joel MD Unavailable Reason for Visit Reason Comments Medication Refill Encounter Details Date Type Department Care Team Description 07/04/2014 Refill [facility] Surgical Aydin Shepherd Medication Refill [facility] E olga Henley PA-C [address] [facility] [address] [facility] [address] [place] [address] [place] [phone] Social History Tobacco Use Types Packs/Day Years Used Date Former Smoker Cigarettes Smokeless Tobacco: Never Used Comments: as a child Alcohol Use Standard Drinks/Week Comments No 0 (1 standard drink = 0.6 oz pure alcoho l) Sex Assigned at Date Recorded 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 Plan of Treatment Not on filedocumented as of this encounter Visit Diagnoses Diagnosis Other and unspecified postsurgical nonab sorption - Primary Bariatric surgery status documented in this encounter Care Teams Professional Athlete Relationship Specialty Start Date End Date Nemesio Costa MD PCP - General 05/30/11 03/22/20 Matheus Feliciano MD PCP - General 03/23/20 [facility] [address] [place] [phone] Car Joel MD Assigned Surgical Provider 06/01/20 [address] [facility] [address] [place] [address] documented as of this encounter
--- OUTSIDE RECORDS SUMMARY | 2022-04-10 14:44 | XMS_ITS | Encounter Summary ---
:1980 Author Organization [facility] Address [address] [place] [address]. [place] [id number] Care Team Providers Name Role Phone Nemesio Costa MD Primary Care Provider Reason for Visit Reason Onset Date Comments Abstract 08/19/2017 Encounter Details Date Type Department Care Team Description 08/19/2017 Documentation Only [facility] Montserrat Shepherd bstract Surgical Weight Loss Maco Henley A-C [address] [place] [address] [facility] [address] [place] [address] [phone] Social History Tobacco Use Types Packs/Day Years Used Date Former Smoker Cigarettes Smokeless Tobacco: Never Used Comments: as a child Alcohol Use Standard Drinks/Week Comments No 0 (1 standard drink = 0.6 oz pure alcoho l) Sex Assigned at Date Recorded 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
--- OUTSIDE RECORDS SUMMARY | 2022-04-10 14:44 | XMS_ITS | Encounter Summary ---
:1980 Author Organization [facility] Address [address] [place] [id number] Care Team Providers Name Role Phone Nemesio Costa MD Primary Care Provider Matheus Feliciano MD Primary Care Provider Car Joel MD Unavailable Reason for Visit Reason Comments Covid 19 Testing Encounter Details Date Type Department Care Team Description 12/26/2019 Office Visit - M [facility] screening fo r other [facility] viral diseases [address] [place] [address] Social History Tobacco Use Types Packs/Day Years Used Date Former Smoker Cigarettes Smokeless Tobacco: Never Used Comments: as a child Alcohol Use Standard Drinks/Week Comments No 0 (1 standard drink = 0.6 oz pure alcoho l) Sex Assigned at Date Recorded 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 documented as of this encounter Progress Notes Ariane Duron - 12/26/2019 4:20 PM CDT . Christel Sheehan RN - 12/26/2019 4:20 PM CDT Coronavirus (COVID-19) Notification Your result for COVID-19 is Negative Letter sent that will serve as a formal notice for your employer documented in this encounter Miscellaneous Notes Patient Instructions - Ariane Birch - 12/26/2019 4:20 PM CDT Your symptoms show that you may have coronavirus (COVID-19). This illness can cause fever, cough andtrouble breathing. Many people get a mild case and get better on their own. Some people can get verysick. Not all patients are tested for COVID-19. If you need to be tested, your care team will let you know. How can I protect others? Without a test, we can't know for sure that you have COVID-19. For safety, it's very important to follow these rules. Stay home and away from others (self-isolate) until: ??? At least 10 days have passed since your symptoms started. And? You've had no fever--and no medicine that reduces fever--for 3 full days (72 hours). And? Your other symptoms have resolved (gotten better). During this time: ??? Stay in your own room (and use your own bathroom), if you can. ??? Stay away from others in your home. No hugging, kissing or shaking hands. ??? No visitors. ??? Don't go to work, school or anywhere else. ??? Clean ???high touch?? surfaces often (doorknobs, counters, handles, etc.). Use a household cleaning spray or wipes. ??? Cover your mouth and nose with a mask, tissue or wash cloth to avoid spreading germs. ??? Wash your hands and face often. Use soap and water. ??? For more tips, go to https://www.cdc.gov/coronavirus/2019-ncov/downloads/10Things.pdf. How can I take care of myself? 1. Get lots of rest. Drink extra fluids (unless a doctor has told you not to). 2. Take Tylenol (acetaminophen) for fever or pain. If you have liver or kidney problems, ask your family doctor if it's okay to take Tylenol. Adults can take either: ??? 650 mg (two 325 mg pills) every 4 to 6 hours, or? 1,000 mg (two 500 mg pills) every 8 hours as needed. ??? Note: Don't take more than 3,000 mg in one day. Acetaminophen is found in many medicines (both prescribed and iqip-uce-goxegmc medicines). Read all labels to be sure you don't take too much. For children, check the Tylenol bottle for the right dose. The dose is based on the child's age or weight. 3. If you have other health problems (like cancer, heart failure, an organ transplant or severe kidney disease): Call your specialty clinic if you don't feel better in the next 2 days. 4. Know when to call 911: If your breathing is so bad that it keeps you from doing normal activities, call 911 or go to the emergency room. Tell them that you've been staying home and may have COVID-19. What are the symptoms of COVID-19? ?? The most common symptoms are cough, fever and trouble breathing. ?? Less common symptoms include body aches, chills, diarrhea (loose, watery poops), fatigue (feelingvery tired), headache, runny nose, sore throat and loss of smell. ?? COVID-19 can cause severe coughing (bronchitis) and lung infection (pneumonia). How does it spread? ?? The virus may spread when a person coughs or sneezes into the air. The virus can travel about [address], and it can live on surfaces. ?? Common ppa teacher (household disinfectants) will kill the virus. Who is at risk? Anyone can catch COVID-19 if they're around someone who has the virus. How can others protect themselves? ?? Stay away from people who have COVID-19 (or symptoms of COVID-19). ?? Wash hands often with soap and water. Or, use hand cylinder loader with at least 60% alcohol. ?? Avoid touching the eyes, nose or mouth. ?? Wear a face mask when you go out in public, when sick or when caring for a sick person. For more about COVID-19 and caring for yourself at home, please visit the CDC website at https://www.cdc.gov/coronavirus/2019-ncov/about/ywlqb-kvch-egnz.html. To learn about care at [facility], go to [email or web address]. Below are the COVID-19 hotlines at the Critical access hospital ([facility]). Interpreters are available. ?? For health questions: Call [phone] or (7 a.m. to 7 p.m.) ?? For questions about schools and childcare: Call [phone] or (7 a.m. to 7 p.m.) documented in this encounter Plan of Treatment Not on filedocumented as of this encounter Procedures Procedure Name Priority Date/Time Associated Diagnosis Comme nts SARS-COV-2 Routine 12/26/2019 3:57 PM Results f or this (COVID-19) VIRUS CDT procedure a re in RT-PCR the results section. documented in this encounter Results SARS-CoV-2 COVID-19 Virus (Coronavirus) by PCR (12/26/2019 3:57 PM CDT) [facility] Method Time Signature SARS-CoV-2 Nasopharyngeal 12/27/2019 Virus 11:23 PM CDT Specimen Source SARS-CoV-2 NEGATIVE 12/27/2019 PCR Result 11:23 PM CDT Comment: SARS-CoV2 (COVID-19) RNA not de tected, presumed negative. SARS-CoV-2 PCR Comment This automated, real-time 0 12/27/2019 11:23 PM CDT RT-PCR assay by [employer] on the GeneXpert Instrument Comment: Systems has been given Emergency Use Aut horization (EUA) for the in vitro qualitative detection of RNA from the SA RS-CoV2 virus in nasopharyngeal swabs in viral transport medium from patients with signs and symptoms of infection who are suspected of COVID-19. The perfo rmance is unknown in asymptomatic patients. Nasopharyngeal specimen is the preferred choice for swab-based SARS-CoV2 testing. Sample types other than nasopha ryngeal swabs were not included in the EUA. The test result from other sample t ypes must be integrated into clinical context for interpretation. A negative result does not rule out the presence of real-time PCR inhibitors in the specimen or COVID-19 RNA in concentr ation below the limit of detection of the assay. The possibility of a false ne gative should be considered if the patients recent exposure or clinical pre sentation suggests COVID-19. Additional testing or repeat testing requires consu ltation with the laboratory. Positive results should also be reported in accordance with local, state, and federal regulations. This test was valid ated by [facility]. This lab oratory is certified under the Clinical Laboratory Improvement Amendments of 198 8 (CLIA-88) as qualified to perform high complexity clinical laboratory test ing. Performed and/or entered by: [facility] [address] [place] [address] Specimen (Source) Anatomical Collection Method Collection Time Re ceived Time Location / / Volume Laterality Respiratory sample Non-blood 12/26/2019 3:57 2019 4:14 (specimen) Collection / PM CDT PM CDT Unknown James Hamilton MD LAB - MICRO GENERAL ORDERABL ES documented in this encounter Visit Diagnoses Diagnosis Encounter for screening for other viral diseases documented in this encounter Care Teams Human Capital Analyst Relationship Specialty Start Date End Date Nemesio Costa MD PCP - General 05/30/11 03/22/20 Matheus Feliciano MD PCP - General 03/23/20 [facility] [address] [place] [address] Car Joel MD Assigned Surgical Provider 06/01/20 [address] [place] [address] documented as of this encounter
--- OUTSIDE RECORDS SUMMARY | 2022-04-10 14:44 | XMS_ITS | Encounter Summary ---
:1980 Author Organization [facility] Address [facility] [place] [address] Care Team Providers Name Role Phone Nemesio Costa MD Primary Care Provider Reason for Visit Reason Onset Date Comments Nurse Advice Line 11/15/2019 Encounter Details Date Type Department Care Team Description 11/15/2019 Telephone [facility] Weight Car Joel MD Nurse Advice Line [facility] [place] [address] [place] [address] [place] [phone] Social History Tobacco Use Types Packs/Day Years Used Date Former Smoker Cigarettes Smokeless Tobacco: Never Used Comments: as a child Alcohol Use Standard Drinks/Week Comments No 0 (1 standard drink = 0.6 oz pure alcoho l) Sex Assigned at Date Recorded 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 Pt's /emergency contact answered. Left message for pt with him with appointment time for tomorrow. Verified that this number [phone] is the correct number to reach patient. ' Valarie Castro RN on 11/16/2019 at 9:06 AM Telephone Encounter - Valarie Castro RN - 11/15/2019 2:57 PM CDT Consulted TIA Shepherd. Discussed today's note as well as recent chart hx. Plan of care per TIA: -carafate liquid 4x/day for treatment of suspected ulcer before meals and bed -Miralax 1 capful daily until having stools once a day -add Protonix 40 mg daily (if pt is not already on PPI) -pt to go to ER if having black tarry stools, blood from rectum or severe abdominal pain -60 minute phone visit to re-establish care with TIA on Called pt; Updated on plan as above. Pt agrees to plan. States she is available at any time on . Needs to be called at [phone]. Also states she is not currently taking protonix or pepcid. Pharmacy: [facility] RN to call pt back tomorrow to give her time of appointment on . Valarie Castro RN on 11/15/2019 at 3:44 PM Telephone Encounter - Montserrat Shepherd PA-C - 11/15/2019 2:46 PM CDT Reviewed Records: ER visit 09/21/2019 [facility]: Dyspepsia (Primary Dx); CT abdomen/pelvis was obtained and WNL. UA was normal except elevated ketones, chemistry WNL, CBC WNL, and LFTs were normal. They were concerned about GI bleed. They started her on Protonix and told her to follow up. Office visit 09/23/2019 for epigastric pain. Pt to continue Protonix for 2 weeks and then switch to Pepcid. HgB was stable. Valarie: Would like to know if pt did 2 week course of PPI and then switched to H2 receptor rishi. Is she having any lightheadedness? Any melena? Telephone Encounter - Valarie Castro, RN - 11/15/2019 1:59 PM CDT Pt is s/p very long gastric bypass with Dr. Joel on 04/17/2011. She was last seen in clinic for 2 year annual visit on 07/12/2013. Pt reports about 3 months ago began having sharp stabbing pain to left upper abdomen just below ribcage over 1 of her incisions. Pain presented with eating and during defecation. Pain has been getting worse and more frequent until she is now having this multiple times a day when eating or having BM. States she pushed on incisional area (left upper abdomen) during BM and thought I was going to have aheart attack from the pain; had to lie down and rest for the pain to subside. Pt denies ANY pain tochest or SOB. Clarified pain location carefully with pt; pt states it is definitely lower than bottom of ribcage. States pain feels like a needle is poking me inside at the level of her incision. States she has been waiting but I can't deal with it anymore. States pain does not move anywhere else.Pain at worst is 10/10; right now 4/10. Pt is also nauseated when she has pain. Pt also reports she has been having intermittent constipation at times; she is not sure how long this has been. Last BM was 3 days ago and was normal, not hard to pass. Pt states she will have BM every1-3 days, it just depends. States if she gets constipated she has lower abdominal cramping too. Does not have this now. Does not take anything for her stools. Pt states she has been doing well overall during her absence from clinic. States she does not have any other symptoms of illness (fever, SOB, CP). Denies heartburn or vomiting. Denies any other symptoms. Pt denies use of NSAIDs or steroids. Denies alcohol or tobacco. States she does drink regular coffeetwice a day, and about 2 Monsters per day. Fluids: pt states she does get 48-60 oz of fluids per day. Other than coffee and Monster she drinks water. Diet hx: Thursday- B-waffles with yogurt L-egg roll S-Pork loin, mashed potatoes, cake and ice cream (it was her birthday) Monster Thursday- B-skipped L-banana S-hamburger helper Had no coffee but 2 Monsters Today- Nauseated all day, no appetite Did not eat at all Had a Monster for energy. Instructed pt to stop ALL caffeine. Pt willing to have phone visit tomorrow if that is next step. She is available all day. Will consult TIA, call pt back with plan. Valarie Castro, RN on 11/15/2019 at 2:30 PM Telephone Encounter - Bernadette Baker CMA - 11/15/2019 1:44 PM CDT Patient's , Amador, calling in inquiring about an appointment for his , Gricelda. Amador states Gricelda is telling him about epigastric pain after eating and with bowel movements. Per Montserrat Schwab PA-C, patient is to be triaged. THERESA Joel is in clinic 11/16/19. Please advise. Bernadette Baker CMA 11/15/2019 1:46 PM documented in this encounter Plan of Treatment Not on filedocumented as of this encounter Visit Diagnoses Diagnosis Epigastric pain - Primary Abdominal pain, epigastric Bariatric surgery status documented in this encounter Care Teams It Network Administrator Relationship Specialty Start Date End Date Nemesio Costa MD PCP - General 05/30/11 03/22/20 documented as of this encounter
--- OUTSIDE RECORDS SUMMARY | 2022-04-10 14:44 | XMS_ITS | Encounter Summary ---
:1980 Author Organization [facility] Address [address] [place] [address]. [place] [address] Care Team Providers Name Role Phone Nemesio Costa MD Primary Care Provider Reason for Visit Auth/Cert Specialty Diagnoses / Procedures Referred By Contact Refer red To Contact Gastroenterology Diagnoses LUQ abdominal pain Bariatric surgery status LUQ abdominal pain [R10.12] Bariatric surgery status [Z98.84] Rh Endoscopy Procedures HC UGI ENDOSCOPY DIAG W OR W/O BRUSH/WASH ESOPHAGOGASTRODUODENOSCOPY (EGD) (fv) [address] [address] Phone: Fax: Referral ID Status Reason Start Date Expiration Date Visits Requ ested Visits Authorized [id number] 1 1 Encounter Details Date Type Department Care Team Description 12/28/2019 Surgery [facility], ESOPHAGOGA STRODUODENOSCOPY (EGD) Endoscopy Houston Dewey MD with biopsies using biopsy forceps [facility] [address] GASTROINTESTI [place] [address] [place], [place] [id number] Surgery Details Date/Time Status Location OR Service Patient Class Case Case Trauma Class Type Case? 12/28/19 9:00 Posted GI GI C Gastroenterology Outpatient AM Panel 1 Procedure [facility] Anes Op Region Wound Class Commen ts ESOPHAGOGASTRODUODENOSCOPY N/A Conscious Mouth II-Clean (EGD) with biopsies using Sedation Contaminat ed biopsy forceps Surgeon Surgeon Role Service Panel Houston Li MD Primary Gastroenterology 1 Special Needs Emailed EGD instructions to [email or web address] per patient. Gave pt # to [employer] Test schedulers [phone]. Reminded pt to wear a mask and enter through Main front door. 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 documented as of this encounter Last Filed Vital Signs Vital Sign Reading Time Taken Comments Blood Pressure 104/77 12/28/2019 9:30 AM CDT Pulse 70 12/28/2019 9:30 AM CDT Temperature - - Respiratory Rate 10 12/28/2019 9:30 AM CDT Oxygen Saturation 100% 12/28/2019 9:30 AM CDT Inhaled Oxygen Concentration - - [...] sent through Care Everywhere. Helicobacter Pylori Culture (Thai)H. pylori and Ulcers, Understanding (Thai)documented in this encounter Medications at Time of Discharge Medication Sig Dispensed Refills Start Date End Date atomoxetine (STRATTERA) Take 80 mg by mouth 0 80 MG capsule daily. busPIRone HCl (BUSPAR) Take 30 mg by mouth 0 30 MG tablet 2 times daily calcium Take 1 tablet by 90 tablet 11 07/13/2013 carbonate-vitamin D mouth 3 times daily (CALCIUM 500 + D) 500-400 MG-UNIT TABS tabltIndications: Bariatric surgery status, Overweight and obesity(278.0) cyanocobalamin 1000 Inject 1 mL (1,000 1 mL 07/13/20 13 MCG/ML mcg) into the muscle injectionIndications: every 30 days Bariatric surgery status, Overweight and obesity(278.0) escitalopram (LEXAPRO) Take 20 mg by mouth 0 20 MG tablet daily fluticasone (FLONASE) 50 [place] 30 mcg in 0 MCG/ACT nasal spray [...] MG Take 1 mg by mouth 0 04/201904/12/2020 tablet Multiple Vitamins-Iron Take 2 capsules [...] AM CDT Pre-Endoscopy History and Physical Gricelda Reid Date of : 1980 Age: [age] year [...] daily Reported, Patient Fluticasone Propionate (FLONASE NA) [place] 30 mcg in nostril Reported, Patient gabapentin [...] status Special Needs Emailed EGD instructions to [email or web address] per patient. Gave pt # to [employer] Test schedulers [phone] . Reminded pt to wear a mask and enter through Main front door. UPPER GI ENDOSCOPY Routine 12/28/2019 9:19 AM CDT Results for this procedure are in the results sec tion. documented in this encounter Results Surgical pathology exam (12/28/2019 9:44 AM CDT) Component Value Ref Test Analysis Performed At [facility] Method Time Signature Copath Report Patient Name: GRICELDA REID MR#: [id number] Specimen #: [id number] Collected: 12/28/2019 Received: 12/28/2019 Reported: 12/29/2019 10:36 [...] of this testing was completed at the [facility], with the professional compo nent performed at the [facility], [address] [place] [address] ??[phone] ([phone]) CPT Codes: A: 15008-ON2 COLLECTION SITE: Client: [facility] Specimen (Source) Anatomical Collection Method Collection Time Re ceived Time Location / / Volume Laterality Tissue specimen STOMACH STRUCTURE 12/28/2019 9:44 AM (specimen) / Unknown CDT Houston GABRIEL Performing Organization Address City/State/ZIP Code Phon e Number COPATH UPPER GI ENDOSCOPY (12/28/2019 9:19 AM CDT) Component Value Ref Test Analysis Performed At [facility] Range Method Time Signature Upper GI [facility] RADIO LOGY Endoscopy RESULTS Patient Name: Gricelda Reid ?Procedure Date: 12/28/2019 9:19 AM ? Accou nt Number: [id number] Date of : 1980 ? Admit Type: [...] # [id number], Endora # ?[id number], SN # [id number] was introduced through the mouth, ?and advanced [...] mu cosa. This was ? traversed. The jmxgq-ee-knbrgzn limb was characterize d by healthy ? appearing mucosa. The fpnjlxvg-of-fxpnaeg limb was examined. Biopsies ? were taken [...] Procedure Code(s): ? --- Professional --- ? 26522, Esophagogastroduodenoscopy, flexible, transo ral; with biopsy, ? single or multiple Diagnosis Code(s): ? --- Professional --- ? R10.12, Left upper quadrant pain CPT copyright 2018 [employer]. All rights reserved. The codes documented in this report are prelimin tabatha and upon supervisor residential review may be revised to meet current compliance requirements. Electronically signed by Houston Li MD Houston Li MD 12/28/2019 9:50:40 AM I was physically present for the entire viewing portion of t he exam. Houston Li MD Number of Addenda: 0 Note Initiated On: 12/28/2019 9:19 AM MRN: ?[id number] Procedure Date: ? 12/28/2019 9:19:08 AM Total [...] RESULTS documented in this encounter Visit Diagnoses Diagnosis LUQ abdominal pain Abdominal pain, left upper quadrant Bariatric surgery status documented in this encounter Administered Medications Inactive [...] mild pain with VAD insertion., Starting on 12/28/19 at 0859, Do NOT give if patient has a history of allergy to any local anesthetic or any deana product. MAX dose 1 mL subcu taneous OR intradermal in divided doses as needed for VAD insertion., Pre-proced ure May continue current IV fluid if patient has IV fluids infusing until discharge. CONTINUOUS PRN, Starting on 12/28/19 at 1056, Until 12/28/19 at 1257, Post-procedure midazolam (VERSED) injection Given 12/28/2019 9:40 AM CDT 2 mg Administer over 2 Minutes, PRN, Starting on 12/28/19 at 0940, Intra-procedure naloxone (NARCAN) injection 0.1-0.4 [...] 12/28/2019 benzocaine 20% (HURRICAINE/TOPEX) 20 % spray 939 (Given - Provider: Houston Li MD) PRN, Starting Thu12/28/19 at 0940, Intra-procedure fentaNYL (PF) (SUBLIMAZE) injection 939 (Given - Provider: Houston Li MD) PRN, [...] vom iting, Administer over 2-5 Minutes, Starting Thu12/28/19 at 0859, For 1 dose, Give in ENDO pre procedure prep area. Irritant. For ordered IV doses 0.1-4 mg, give IV Push undiluted over 2-5 minutes., Pre-procedure ondansetron (ZOFRAN) injection 4 mg(Linked Group 1) 4 mg, Intravenous, EVERY 6 HOURS PRN, na usea, vomiting, Administer over 2-5 Minutes, Starting Thu12/28/19 at 1056, This is Step 1 [...] peripheral IV flush post IV meds, Starting 12/28/19 at 0859, Pre-procedure sodium chloride (PF) 0.9% PF flush 3 mL 3 mL, Intravenous, EVERY 1 MIN PRN, line flush, after medication administration, Starting 12/28/19 at 0859, For peripheral IV flush post IV meds, Pre-procedure sodium chloride (PF) 0.9% PF flush 3 mL 3 mL, Intravenous, EVERY 1 MIN PRN, line flush, after medication administration. For peripheral IV flush post IV meds, Starting 12/28/19 at 1056, Post-procedure Linked Groups Order Group 1: ondansetron (ZOFRAN-ODT) ODT tab 4 mgJump to med 4 mg, Oral, EVERY 6 HOURS PRN, nausea, v omiting, Starting 12/28/19 at 1056
This is Step [...]
Post-procedure documented in this encounter Care Teams Bander Operator Relationship Specialty Start Date End Date Nemesio Costa MD PCP - General 05/30/11 03/22/20 documented as of this encounter
--- OUTSIDE RECORDS SUMMARY | 2022-04-10 14:44 | XMS_ITS | Encounter Summary ---
:1980 Author Organization [facility] Address [address] [place] [address]. [place] [address] Care Team Providers Name Role Phone Nemesio Costa MD Primary Care Provider Matheus Feliciano MD Primary Care Provider Car Joel MD Unavailable Reason for Visit Reason Comments Medication Refill Encounter Details Date Type Department Care Team Description 10/22/[address] 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
--- OUTSIDE RECORDS SUMMARY | 2022-04-10 14:44 | XMS_ITS | Encounter Summary ---
:1980 Author Organization [facility] Address [facility] [place] [address] Care Team Providers Name Role Phone Nemesio Costa MD Primary Care Provider Encounter Details Date Type Department Care Team Description 11/29/2019 Orders Only [facility] Car Joel MD Other acute gastritis Surgery [facility] [place] [address] without hemorrhage [address] (Primary [address]x) [address] [place] [address] [place] [phone] Social History Tobacco Use Types Packs/Day Years Used Date Former Smoker Cigarettes Smokeless Tobacco: Never Used Comments: as a child Alcohol Use Standard Drinks/Week Comments No 0 (1 standard drink = 0.6 oz pure alcoho l) Sex Assigned at Date Recorded 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 documented as of this encounter Plan of Treatment Not on filedocumented as of this encounter Visit Diagnoses Diagnosis Other acute gastritis without hemorrhage - Primary documented in this encounter Care Teams Surgery Center Administrator Relationship Specialty Start Date End Date Nemesio Costa MD PCP - General 05/30/11 03/22/20 documented as of this encounter
--- OUTSIDE RECORDS SUMMARY | 2022-04-10 14:44 | XMS_ITS | Encounter Summary ---
:1980 Author Organization [facility] Address [address] [place] [address]. [place] [address] Care Team Providers Name Role Phone Nemesio Costa MD Primary Care Provider Matheus Feliciano MD Primary Care Provider Car Joel MD Unavailable Reason for Visit Reason Comments Medication Refill Encounter Details Date Type Department Care Team Description 07/29/2017 Refill [facility] Surgical Juan A Valdovinos, Medication Refill Weight Loss Clinic E olga PA-C [address] [facility] [address] [facility] [address] [email or web address] [address] [place] [phone] PANKAJ GONZALEZ [id number] (Wo rk) Social History Tobacco Use Types Packs/Day Years Used Date Former Smoker Cigarettes Smokeless Tobacco: Never Used Comments: as a child Alcohol Use Standard Drinks/Week Comments No 0 (1 standard drink = 0.6 oz pure alcoho l) Sex Assigned at Date Recorded 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
--- OUTSIDE RECORDS SUMMARY | 2022-04-10 14:44 | XMS_ITS | Encounter Summary ---
:1980 Author Organization [facility] Address [address] [place] [address]. [place] [address] Care Team Providers Name Role Phone Nemesio Costa MD Primary Care Provider Matheus Feliciano MD Primary Care Provider Car Joel MD Unavailable Reason for Visit Reason Comments Medication Refill Encounter Details Date Type Department Care Team Description 12/09/2019 Refill [facility] Surgical Car Lieberman MD Medication Refill Weight Loss Clinic E olga [address] [place] [address] [address] [place] [address] [phone] Social History Tobacco Use Types Packs/Day Years Used Date Former Smoker Cigarettes Smokeless Tobacco: Never Used Comments: as a child Alcohol Use Standard Drinks/Week Comments No 0 (1 standard drink = 0.6 oz pure alcoho l) Sex Assigned at Date Recorded 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 documented as of this encounter Miscellaneous Notes Telephone Encounter - Rehana Anaya RN - 12/09/2019 10:03 AM CDT 11/29/2019 was Rx'd new RX: Take 1 tablet (20 mg) by mouth 2 times daily First week take 40 mg twice a day then 20 mg twice a day afterward. Called to check on sx relief and patient has not yet returned call. DZ documented in this encounter Plan of Treatment Not on filedocumented as of this encounter Visit Diagnoses Diagnosis Epigastric pain Abdominal pain, epigastric documented in this encounter Care Teams Sandblasting Supervisor Relationship Specialty Start Date End Date Nemesio Costa MD PCP - General 05/30/11 03/22/20 Matheus Feliciano MD PCP - General 03/23/[facility] [address] [phone] Car Joel MD Assigned Surgical Provider 06/01/20 [address] [place] [address] documented as of this encounter
--- OUTSIDE RECORDS SUMMARY | 2022-04-10 14:44 | XMS_ITS | Encounter Summary ---
:1980 Author Organization [facility] Address [address] [place] [address]. [place] [address] Care Team Providers Name Role Phone Nemesio Costa MD Primary Care Provider Reason for Visit Reason Onset Date Comments Clinic Care Coordination - Follow-up 12/22/2019 Encounter Details Date Type Department Care Team Description 12/22/2019 Telephone [facility] Randi Contreras, Clinic C are Coordination Surgical Weight Loss ANTONIA Kimball - Follow-up Clinic [facility] WEIGHT LOSS [address] [facility] [address] [facility] [address] [place] [address] [place], [place] [address] Social History Tobacco Use Types Packs/Day Years Used Date Former Smoker Cigarettes Smokeless Tobacco: Never Used Comments: as a child Alcohol Use Standard Drinks/Week Comments No 0 (1 standard drink = 0.6 oz pure alcoho l) Sex Assigned at Date Recorded 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 documented as of this encounter Miscellaneous Notes Telephone Encounter - Rehana Anaya RN - 12/22/2019 9:44 AM CDT Patient was to have scheduled EGD at [facility]. This appeals writer isn't able to see an appointment at this time. LM on patient's VM to call clinic with status. Kimball Ziemer, MS, RD, RN documented in this encounter Plan of Treatment Not on filedocumented as of this encounter Visit Diagnoses Not on filedocumented in this encounter Care Teams Opal Miner Relationship Specialty Start Date End Date Nemesio Costa MD PCP - General 05/30/11 03/22/20 documented as of this encounter
--- OUTSIDE RECORDS SUMMARY | 2022-04-10 14:44 | XMS_ITS | Encounter Summary ---
:1980 Author Organization [facility] Address [address] [place] [address] Care Team Providers Name Role Phone Nemesio Costa MD Primary Care Provider Reason for Referral Diagnostic Imaging CT Scan (Routine) - Closed Specialty Diagnoses / Procedures Referred By Contact Refer red To Contact Radiology. Diagnoses Bariatric surgery status Left upper quadrant pain Sh Surgical Wght Loss Sh Ct Scan Procedures CT Abdomen Pelvis w Contrast [address] [facility] [address] [place] [address] [place] [address] Referral ID Status Reason Start Date Expiration Date Visits Requ ested Visits Authorized [id number] Closed 11/29/2019 11/28/2020 1 1 Reason for Visit Diagnostic Imaging CT Scan (Routine) - Closed Specialty Diagnoses / Procedures Referred By Contact Refer red To Contact Radiology. Diagnoses Bariatric surgery status Left upper quadrant pain Sh Surgical Wght Loss Sh Ct Scan Procedures CT Abdomen Pelvis w Contrast [address] [facility] [address] [place] [phone] [place] [phone] Referral ID Status Reason Start Date Expiration Date Visits Requ ested Visits Authorized [id number] Closed 11/29/2019 11/28/2020 1 1 Encounter Details Date Type Department Care Team Description 11/29/2019 Hospital Encounter [facility] Wisam Jamel Rahman ariatric surgery status; Jimmy Paul MD Left upper quadrant pain 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 documented as of this encounter Medications at Time of Discharge [...] 20 MG tablet daily fluticasone (FLONASE) 50 [place] 30 mcg in 0 MCG/ACT nasal spray [...] by mouth 0 MG tablet At Bedtime Ascorbic Acid (VITAMIN C Take by mouth. 0 12/28/2019 PO) Calcium TAKE 1 TABLET BY 90 tablet 0 05/08/2013 12/28/19 20 Carbonate-Vitamin D MOUTH 3 TIMES A DAY (OYSTER SHELL CALCIUM/D) 500-400 MG-UNIT TABSIndications: Bariatric surgery status, Other and unspecified postsurgical nonabsorption Capsaicin 0.1 % cream Apply 1 Application 0 02/1704/12/2020 topically Cyanocobalamin (VITAMIN Inject as directed. 0 02/15/2020 B-12 IJ) cyclobenzaprine Take 10 mg by mouth 0 08/26/2018 04/11/2020 (FLEXERIL) 10 MG tablet diclofenac (VOLTAREN) 1 Apply 4 g topically 0 04/12/2020 % topical gel dicyclomine (BENTYL) 10 Take 10 mg by mouth 0 07/202004/12/2020 MG capsule doxycycline monohydrate Take 100 mg by mouth 0 12/28/2019 (ADOXA) 100 MG tablet daily hydrocortisone, 0 08/22/2018 0 Perianal, (PROCTOZONE-HC) 2.5 [...] and obesity(278.0) pantoprazole (PROTONIX) Take 1 tablet (20 120 tablet 2 11/2812/28/2019 20 MG EC mg) by mouth 2 times tabletIndications: Other daily First week acute gastritis without take 40 mg twice a hemorrhage day then 20 mg twice a day afterward. pantoprazole (PROTONIX) Take 1 tablet (40 30 tablet 1 11/1412/28/2019 40 MG EC mg) by mouth daily tabletIndications: Epigastric pain sucralfate (CARAFATE) 1 Take 10 mLs (1 g) by 400 mL 1 02/15/2020 GM/10ML mouth 4 times daily suspensionIndications: for 10 days Epigastric pain syringe, disposable, 1 1 Device every 30 1 each 201202/09/2021 ML MISCIndications: days Bariatric surgery status, Overweight and obesity(278.0) Syringe/Needle, Disp, 0 03/2020 (BD LUER-LORIE SYRINGE) traZODone (DESYREL) 100 Take 100 mg by mouth 0 04/12/2020 MG tablet ZOLMitriptan (ZOMIG PO) Take 5 mg by mouth 0 04/12/2020 as needed documented as of this encounter Plan of Treatment Not on filedocumented as of this encounter Procedures Procedure Name Priority Date/Time Associated Diagnosis Comme nts CT ABDOMEN PELVIS W STAT 11/29/2019 4:03 PM Bariatric surge ry Results for this CONTRAST CDT status procedure are in Left upper quadrant the resu lts pain section. documented in this encounter Results CT Abdomen Pelvis w Contrast (11/29/2019 4:03 PM CDT) Anatomical Region Laterality Modality Abdomen/Pelvis, SUBRAD CT BODY, UMP CT ABDOMEN PELVIS, Computed Tomography RAD CT Specimen (Source) Anatomical Location Collection Method / Collectio n Time Received Time / Laterality Volume Impressions 11/29/2019 4:13 PM CDT IMPRESSION: No acute process demonstrated within the abdomen and pelvis. No definite hernia demonstrated. LUCIANO ZAMUDIO MD Narrative 11/29/2019 4:[address] ABDOMEN AND PELVIS WITH CONTRAST 11/29/2019 4:03 PM HISTORY: Abdominal pain, unspecified. Mark devine is status post gastric bypass 2010. Has had severe LUQ abdomina l pain, pop to left upper lap site after trying to defecate, reported lump to left upper abdomen. Rule out hernia. Also reported history o f constipation. Bariatric surgery status. Left upper quadrant pain . COMPARISON: December 29, 2012 TECHNIQUE: Volumetric helical acquisitio n of CT images from the lung bases through the symphysis pubis after the administration of 90mL Isovue-370 intravenous contrast. Radiati on dose for this scan was reduced using automated exposure control , adjustment of the mA and/or kV according to patient size, or iterati ve reconstruction technique. FINDINGS: The liver, bilateral kidneys a nd adrenal glands, pancreas, and spleen demonstrate no worrisome foca l lesion. Gastric bypass and cholecystectomy change. Tiny possible hi atal hernia. Minimal focal fat in the liver adjacent to the falciform l igament. No hydronephrosis. Probable appendectomy change. No diverti culitis. Pelvic structures unremarkable. No definite hernia demonst rated. There is no free fluid in the abdomen or pelvis. No free air in the abdomen. Bone windows reveal no destructive lesions. There are no abdominal or pelvic lymph nodes that are abnormal by size criteria . The visualized lung bases are unremarkable. There are no dilated l oops of small bowel or colon. Procedure Note Luciano Zamudio MD - 11/29/2019Fo rmatting of this note might be different from the original. CT ABDOMEN AND PELVIS WITH CONTRAST 11/28 4:03 PM HISTORY: Abdominal pain, unspecified. Mark devine is status post gastric bypass 2010. Has had severe LUQ abdomina l pain, pop to left upper lap site after trying to defecate, reported lump to left upper abdomen. Rule out hernia. Also reported history o f constipation. Bariatric surgery status. Left upper quadrant pain . COMPARISON: December 29, 2012 TECHNIQUE: Volumetric helical acquisitio n of CT images from the lung bases through the symphysis pubis after the administration of 90mL Isovue-370 intravenous contrast. Radiati on dose for this scan was reduced using automated exposure control , adjustment of the mA and/or kV according to patient size, or iterati ve reconstruction technique. FINDINGS: The liver, bilateral kidneys a nd adrenal glands, pancreas, and spleen demonstrate no worrisome foca l lesion. Gastric bypass and cholecystectomy change. Tiny possible hi atal hernia. Minimal focal fat in the liver adjacent to the falciform l igament. No hydronephrosis. Probable appendectomy change. No diverti culitis. Pelvic structures unremarkable. No definite hernia demonst rated. There is no free fluid in the abdomen or pelvis. No free air in the abdomen. Bone windows reveal no destructive lesions. There are no abdominal or pelvic lymph nodes that are abnormal by size criteria . The visualized lung bases are unremarkable. There are no dilated l oops of small bowel or colon. IMPRESSION: No acute process demonstrate d within the abdomen and pelvis. No definite hernia demonstrated. LUCIANO ZAMUDIO MD Car Joel MD IMG CT ORDERABLES documented in this encounter Visit Diagnoses Diagnosis Bariatric surgery status Left upper quadrant pain Abdominal pain, left upper quadrant documented in this encounter Administered Medications Inactive Administered Medications - up to 3 most recent administrations Medication Order MAR Action Action Date Dose Rate Site iopamidol (ISOVUE-370) solution 90 Given 11/29/2019 3:42 PM CDT 90 mLs mL 90 mL, Intravenous, ONCE, On 11/29/19 at 1515, For 1 dose Saline Flush Given 11/29/2019 3:43 PM CDT 66 mLs Intravenous, 66 mL, ONCE, On 11/29/19 at 1515, For 1 dose, This entry is for use by Radiology to intermittently used as a flush in patients receiving a CT scan. documented in this encounter Care Teams Real Estate Branch Manager Relationship Specialty Start Date End Date Nemesio Costa MD PCP - General 05/30/11 03/22/20 documented as of this encounter
--- OUTSIDE RECORDS SUMMARY | 2022-04-10 14:44 | XMS_ITS | Encounter Summary ---
:1980 Author Organization [facility] Address [address] [place] [address]. [place] [address] Care Team Providers Name Role Phone Nemesio Costa MD Primary Care Provider Reason for Visit Reason Onset Date Comments Outreach 11/30/2019 Encounter Details Date Type Department Care Team Description 11/30/2019 Telephone [facility] Surgical Car Lieberman MD Outreach [facility] E [facility] [address] [facility] [address] [facility] [place] [address] [address] [place] [address] [phone] Social History Tobacco Use Types Packs/Day Years Used Date Former Smoker Cigarettes Smokeless Tobacco: Never Used Comments: as a child Alcohol Use Standard Drinks/Week Comments No 0 (1 standard drink = 0.6 oz pure alcoho l) Sex Assigned at Date Recorded 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 documented as of this encounter Miscellaneous Notes Telephone Encounter - Valarie Castro RN - 11/30/2019 11:39 AM CDT Images from the original note were not included. See plan of care above. Per note pt is already aware. Valarie Castro RN on 11/30/2019 at 11:39 AM Telephone Encounter - Valaire Castro RN - 11/30/2019 8:27 AM CDT Called pt at surgeon request to find time she is available for surgeon call. Used number that patient has requested to use. No answer. Left message for pt to call back with this information. Valarie Castro RN on 11/30/2019 at 8:39 AM documented in this encounter Plan of Treatment Not on filedocumented as of this encounter Visit Diagnoses Not on filedocumented in this encounter Care Teams Weigh Box Tender Relationship Specialty Start Date End Date Nemesio Costa MD PCP - General 05/30/11 03/22/20 documented as of this encounter
--- OUTSIDE RECORDS SUMMARY | 2022-04-10 14:44 | XMS_ITS | Encounter Summary ---
:1980 Author Organization [facility] Address [address] [place] [address]. [place] [address] Care Team Providers Name Role Phone Nemesio Costa MD Primary Care Provider Reason for Visit Reason Comments Medication Refill Encounter Details Date Type Department Care Team Description 08/23/2014 Refill [facility] Surgical Aydin Shepherd Medication Refill Weight Loss Clinic E olga Henley PA-C [address] [facility] [address] [facility] [address] [place] [address] [place] [id number] [phone] Social History Tobacco Use Types Packs/Day Years Used Date Former Smoker Cigarettes Smokeless Tobacco: Never Used Comments: as a child Alcohol Use Standard Drinks/Week Comments No 0 (1 standard drink = 0.6 oz pure alcoho l) Sex Assigned at Date Recorded 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 She is aware of the need to be seen before her prescriptions are written. She was informed that her PCP could do this for her as well if she was seen on an annual basis. Patient verbalized understanding. Rehana Bryan, MS, RD, RN TIVE WRITING PROFESSOR Telephone Encounter - Nidhi Brewer CMA - 08/31/2014 12:33 PM CST I was super busy the day you sent this and then out of clinic for the following 3 days and didn't see it until yesterday so this pt hasn't been called back yet. I also saw that this pt requested that Montserrat call her to discuss this. Please call pt if not already done. Thanks! Nidhi Brewer MA TIVE WRITING PROFESSOR Telephone Encounter - Montserrat Shepherd PA-C - 08/24/2014 10:13 AM CREATIVE WRITING PROFESSOR Nidhi, Please call the patient and explain: I refused the medications. The patient can get this over the counter or call her primary care provider to order this for her. I would need to see her on an annual basis and do labs for her to have me continue to prescribe this. However, if she sees her PCP at least once a year, the could do this for her. TIVE WRITING PROFESSOR Telephone Encounter - Rehana Anaya RN - 08/23/2014 1:05 PM CREATIVE WRITING PROFESSOR Patient wondering why her vitamin D had not been refilled. Informed her that she had not returned to clinic in over a year and the she was already given 1 refill past her date when she should return to clinic. Requested she make an appointment to see a provider. She refused saying she lived near [place] and that was a long way away. She requested TIA Mariano call her to discuss above. I informed patient I would give Montserrat the message. Rehana Bryan, MS, RD, RN TIVE WRITING PROFESSOR documented in this encounter Plan of Treatment Not on filedocumented as of this encounter Visit Diagnoses Not on filedocumented in this encounter Care Teams Twisting Operator Relationship Specialty Start Date End Date Nemesio Costa MD PCP - General 05/30/11 03/22/20 documented as of this encounter
--- OUTSIDE RECORDS SUMMARY | 2022-04-10 14:44 | XMS_ITS | Encounter Summary ---
:1980 Author Organization [facility] Address [address] [place] [address]. [place] [address] Care Team Providers Name Role Phone Nemesio Costa MD Primary Care Provider Matheus Feliciano MD Primary Care Provider Car Joel MD Unavailable Encounter Details Date Type Department Care Team Description 12/22/2019 Telephone [facility] Surgery Car Joel MD Clinic [place] [address] [place] [place] [address] [address] [place] [address] [phone] Social History Tobacco Use Types Packs/Day Years Used Date Former Smoker Cigarettes Smokeless Tobacco: Never Used Comments: as a child Alcohol Use Standard Drinks/Week Comments No 0 (1 standard drink = 0.6 oz pure alcoho l) Sex Assigned at Date Recorded 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 documented as of this encounter Miscellaneous Notes Telephone Encounter - Rehana Anaya RN - 12/23/2019 12:24 PM CDT Called [facility] and spoke with Gladys in scheduling. Patient was called to schedule but was NA and a message was left this Thursday or Thursday - exact datein trail unknown. Was given direct number to schedule. Scheduling is available until 5 pm. Patient most likely can get in next week. Called patient and LM to call [phone] to schedule and also requested she leave a number where she can be reached if can't schedule directly. Rehana Bryan MS, RD, RN Telephone Encounter - Rehana Anaya RN - 12/23/2019 9:47 AM CDT Called patient and LM with phone number returned call. Rehana Bryan MS RD, RN Telephone Encounter - Erica Stout - 12/22/2019 4:50 PM CDT For Rehana, Pt is returning phone call and would like to speak to you [facility] [phone] ok to leave a detailed message documented in this encounter Plan of Treatment Not on filedocumented as of this encounter Visit Diagnoses Not on filedocumented in this encounter Care Teams Network Systems Integrator Relationship Specialty Start Date End Date Nemesio Costa MD PCP - General 05/30/11 03/22/20 Matheus Feliciano MD PCP - General 03/23/20 [facility] [address] [facility] [place] [address] Car Joel MD Assigned Surgical Provider 06/01/20 [address] [place] [address] documented as of this encounter
--- OUTSIDE RECORDS SUMMARY | 2022-04-10 14:44 | XMS_ITS | Encounter Summary ---
:1980 Author Organization [facility] Address [address] [place] [address]. [place] [address] Care Team Providers Name Role Phone Nemesio Costa MD Primary Care Provider Matheus Feliciano MD Primary Care Provider Car Joel MD Unavailable Reason for Visit Reason Comments Medication Refill Encounter Details Date Type Department Care Team Description 06/29/[address] [facility] Surgical Juan A Valdovinos, Medication Refill Weight Loss Clinic E olgajerome WEBER [address] [facility] [address] 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 Miscellaneous Notes Telephone Encounter - Lon Rodriguez PA-C - 07/01/2017 11:32 AM DEMOLITION WORKER Needs appointment LITION WORKER documented in this encounter Plan of Treatment Not on filedocumented as of this encounter Visit Diagnoses Diagnosis Bariatric surgery status documented in this encounter Care Teams Pole Framer Relationship Specialty Start Date End Date Nemesio Costa MD PCP - General 05/30/11 03/22/20 Matheus Feliciano MD PCP - General 03/23/[address] [place] [address] Car Joel MD Assigned Surgical Provider 06/01/20 [address] [place] [address] documented as of this encounter
--- OUTSIDE RECORDS SUMMARY | 2022-04-10 14:44 | XMS_ITS | Encounter Summary ---
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 documented as of this encounter Plan of Treatment Not on filedocumented as of this encounter Visit Diagnoses Not on filedocumented in this encounter Care Teams Public Health Aide Relationship Specialty Start Date End Date Nemesio Costa MD PCP - General 05/30/11 03/22/20 documented as of this encounter
--- OUTSIDE RECORDS SUMMARY | 2022-04-10 14:44 | XMS_ITS | Encounter Summary ---
:1980 Author Organization [facility] Address [address] [place] [address]. [place] [address] Care Team Providers Name Role Phone Nemesio Costa MD Primary Care Provider Encounter Details Date Type Department Care Team Description 04/15/2018 Telephone [facility] Surgical Aydin Shepherd Weight [facility] E olga Henley PA-C [address] [facility] [address] [facility] [address] [place] [address] [place] [address] [phone] Social History Tobacco Use Types Packs/Day Years Used Date Former Smoker Cigarettes Smokeless Tobacco: Never Used Comments: as a child Alcohol Use Standard Drinks/Week Comments No 0 (1 standard drink = 0.6 oz pure alcoho l) Sex Assigned at Date Recorded 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 Pt would like call back. Pt had bone density done at PCP and was found to be osteoporotic. She is taking 2 calciu supplements but not sure of dose. She takes 1000 international units of vitamin D daily. She was last seen in clinic in 2012. Recommended she come in to clinic so we could run vitamin labs and discuss recommended post operative vitamins to make sure she is getting the correct amount of calcium and vitamin D. Transferred her to [facility]. documented in this encounter Plan of Treatment Not on filedocumented as of this encounter Visit Diagnoses Not on filedocumented in this encounter Care Teams Forensic Science Technician Relationship Specialty Start Date End Date Nemesio Costa MD PCP - General 05/30/11 03/22/20 documented as of this encounter
--- OUTSIDE RECORDS SUMMARY | 2022-04-10 14:44 | XMS_ITS | Encounter Summary ---
:1980 Author Organization [facility] Address [address] [place] [address] Care Team Providers Name Role Phone Nemesio Costa MD Primary Care Provider Matheus Feliciano MD Primary Care Provider Car Joel MD Unavailable Encounter Details Date Type Department Care Team Description 12/26/2019 Ambulatory - [facility] Doroteo [place] MD Encounter for 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 documented as of this encounter Plan of Treatment Not on filedocumented as of this encounter Visit Diagnoses Diagnosis Encounter for screening for other viral diseases documented in this encounter Care Teams Commercial Construction Estimator Relationship Specialty Start Date End Date Nemesio Costa MD PCP - General 05/30/11 03/22/20 Matheus Feliciano MD PCP - General 03/23/[address] [place] [address] Car Joel MD Assigned Surgical Provider 06/01/20 [address] [place] [address] documented as of this encounter
--- OUTSIDE RECORDS SUMMARY | 2022-04-10 14:44 | XMS_ITS | Encounter Summary ---
:1980 Author Organization [facility] Address [address] [place] [address]. [place] [address] Care Team Providers Name Role Phone Nemesio Costa MD Primary Care Provider Reason for Visit Reason Onset Date Comments Abdominal Pain 11/24/2019 Encounter Details Date Type Department Care Team Description 11/24/[address] 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 Chaudhry and plan is as follows: Patient should try OTC enema if stools are now watery and do daily until results. Okay not to use Carafate if has no epigastric pain w/o it. Can use OTC Maalox PRN. No emergent EGD needed. Called patient and above information given. Explained why colon could be full of stool but hard at the end and liquid coming around and that is why enema may be beneficial to get her going and help pain on left upper side of abdomen. Ct was negative 09/21/2019 and that is a good reassurance. Okay if would like to use Gatorade Zero, Pedialyte, etc. Push fluids to avoid an ED visit for fluids at this time of COVID. To ED if pain intensifies, bleeding in vomit or stool, unusual lighted headedness or becomes dizzy, increase HR or SOB. Clinic will touch base in 1 week and patient to call sooner if sooner needed. Patient verbalized understanding and is agreeable to plan. Rehana Bryan, MS, RD, RN Telephone Encounter - Rehana Anaya RN - 11/24/2019 1:27 PM CDT Patient had very long gastric bypass with Dr. Joel on 04/17/2011. She was last seen in clinic for 2 year annual visit on 07/12/2013. She had no showed several appointments since. Called today LM on with c/o abdominal pain, possible ulcer, losing weight rapidly, constipated and not feeling well. Of note, patient completed e-visit with TIA Mariano 11/17/2019. Patient called the clinic 11/15/2019 in distress. Was started on Carafate and Protonix and asked her to follow up 11/17/2019. At 11/17/2019 visit patient reported 3 months of sharp stabbing pain to left upper abd. Pain with eating and defecation. Reported intermittent constipation. Pt denied use of NSAID'S or steroids. ??Denies alcohol or tobacco. ??States she does drink regular coffee twice a day, and about 2 Monsters per day. ? Plan was to complete medication treatment and follow up with clinic in 2 months. When spoke with patient she states she is now very constipated Has taken 2/day stool softeners and 2 doses daily Miralax since 11/17/2019. LBM was yesterday and was watery. Overall since 11/16 stools have been hard to watery. States looked online and found Carafate can cause constipation and AGUILERA's. Has not taken the Carafate since on or about 11/16. Feels if eats has to vomit but doesn't. Can eat 1/2 sandwich at lunch and that is it. Feels very full - not nauseated necessarily. Has gotten worse since constipated. Trying to drink is difficult due to feels she may get sick. Can get down 32+ ounces of water. Urine clear - no AGUILERA's and not dizzy. Sometimes when stands up get light headed but was going on 1 month prior to less fluid intake. Weight 183# was that weight on 11/17/2019. Thinks was 189# the week before. No coffee or monster drinks since speaking with Montserrat on 11/16. Reports has constant pain in abdomen on left lower side on incision on lower left side under ribs. Now 6.5-7/10 5/10 on 11/17/2019. ?? Wonders if she should have an EGD quicker than 2 months. Discussed with patient that if she has an ulcer it will take several weeks to heal and can be in fairly significant pain for even up to 4 weeks. Usually EGD not necessary if sx resolve in 2 months. Discussed that EGD in times of COVID-19 may not be the best but will check with provider. Constipation is likely but not the norm with Carafate. Will also check re: constipation and what to take in place of Carafate. Discussed sx of when to get to ED r/t to bleed. Rehana Bryan, MS, RD, RN ?? documented in this encounter Plan of Treatment Not on filedocumented as of this encounter Visit Diagnoses Not on filedocumented in this encounter Care Teams Automatic Drilling Machine Operator Relationship Specialty Start Date End Date Nemesio Costa MD PCP - General 05/30/11 03/22/20 documented as of this encounter
--- OUTSIDE RECORDS SUMMARY | 2022-04-10 14:44 | XMS_ITS | Encounter Summary ---
:1980 Author Organization [facility] Address [address] [place] [address]. [place] [address] Care Team Providers Name Role Phone Nemesio Costa MD Primary Care Provider Matheus Feliciano MD Primary Care Provider Car Joel MD Unavailable Reason for Visit Reason Comments Medication Refill Encounter Details Date Type Department Care Team Description 06/13/[address] 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
--- OUTSIDE RECORDS SUMMARY | 2022-04-10 14:44 | XMS_ITS | Encounter Summary ---
:1980 Author Organization [facility] Address [address] [facility] [place] [address] Care Team Providers Name Role Phone Nemesio Costa MD Primary Care Provider Encounter Details Date Type Department Care Team Description 09/09/2017 Therapy Visit [facility] Trista Starr P T Cervicalgia (Primary Dx); Rehabilitation Services [facility] [place] Chronic bilateral low back pain without sciatica [place] [address] [facility] [address] [place] [phone] Social History Tobacco Use Types Packs/Day Years Used Date Former Smoker Cigarettes Smokeless Tobacco: Never Used Comments: as a child Alcohol Use Standard Drinks/Week Comments No 0 (1 standard drink = 0.6 oz pure alcoho l) Sex Assigned at Date Recorded 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 Referral: [facility] Nemesio Costa MD Work mechanical stresses: None Employment status: Disabled due to current complaints Leisure mechanical stresses: Sedentary Functional disability score (KARI/STarT Back): HIGH VAS score (0-10): 8 Patient goals/expectations: I don't know. My doctor wants do do Xrays and tests but my insurance says I need to come to PT first. HISTORY: Present symptoms: entire back pain Pain quality (sharp/shooting/stabbing/aching/burning/cramping): Tingly, numb-y Paresthesia (yes/no): yes Present since (onset date): Chronic, episodic. Saw MD for current complaints 09/09/17 Symptoms (improving/unchanging/worsening): unchanging. Symptoms commenced as a result of: UNK Condition occurred in the following environment: UNK Symptoms at onset (back/thigh/leg): thoracolumbar pain Constant symptoms (back/thigh/leg): Intermittent symptoms (back/thigh/leg): neck shoulders, thoracolumbar Symptoms are made worse with the following: Sometimes Bending, Sometimes Sitting, Time of day - No effect and Sometimes On the move Symptoms are made better with the following: Sometimes When still Disturbed sleep (yes/no): Yes Sleeping postures (prone/sup/side R/L): sides on the L Previous episodes (0/1-5/6-10/11+): 11+ Year of first episode: 2010 Previous history: chronic, episodic LBP Previous treatments: episodic chiro 3-4 months ago not really with response (short term), PT [id number] Specific Questions: Cough/Sneeze/Strain (pos/neg): Neg Bowel/Bladder (normal/abnormal): Normal Gait (normal/abnormal): Normal Medications (nil/NSAIDS/analg/steroids/anticoag/other): Other - Anti-seizure, Thyroid and Sleep Medical allergies: None General health (excellent/good/fair/poor): Good Pertinent medical history: Seizures, Depression, Thyroid problems, Migraines/Headaches and Obesity, reoccurring abdominal surgeries: gallbladder, appendectomy, hysterectomy, tonsillectomy, episodic B knee pain with B braces/PT without results Imaging (None/Xray/MRI/Other): Xrays 8-[address] Ramsey at [facility], Dr Grady at [facility] (knees) Recent or major surgery (yes/no): None recent Night pain (yes/no): No Accidents (yes/no): No Unexplained weight loss (yes/no): No Barriers at home: No Other red flags: Black Flags: On disability for current complaints. EXAMINATION Posture: Sitting (good/fair/poor): Poor Standing (good/fair/poor):Poor Lordosis (red/acc/normal): Red Correction of posture (better/worse/no effect): NE Lateral Shift (right/left/nil): ? Difficult to discern due to body morphology Relevant (yes/no): No Other Observations: Pt demonstrates abnormal and excessive pain behaviors- rating pain at 8/10-9/10 while smiling and reporting It's worse Neurological: Motor deficit: NT due to invalid measures from pain behaviors Reflexes: Sensory deficit: Dural signs: Movement Loss: Spike Mod Min Nil Pain Flexion x x incr LBP Extension x incr LBP Side Gliding R x incr LBP Side Gliding L x x incr LBP Test Movements: During: produces, abolishes, increases, decreases, no effect, centralizing, peripheralizing After: better, worse, no better, no worse, no effect, centralized, peripheralized Pretest symptoms lyin/10 Symptoms During Symptoms After ROM increased ROM decreased No Effect JUAN LUIS Increases No Worse Rep JUAN LUIS Increases No Worse EIL Rep EIL Other Tests: Cspine: cracks into L SB it shoots like lightening without restrictions of AROM, although deviation to the L into extension. Thoracic spine AROM WNL without concordant pains today. Provisional Classification: Inconclusive/Other - Chronic Pain Syndrome Principle of Management: Education: P./NW pain mgmt strategy Equipment provided: None Mechanical therapy (Y/N): Y Extension principle: Lateral Principle: Flexion principle: repFIL with OP 20 times, 2-4 times a day Other: L SB supine with OP 20 times ASSESSMENT/PLAN: Patient is a 36 year old female with cervical, thoracic and lumbar complaints. Patient has the following significant findings with corresponding treatment plan. Diagnosis 1: Neck and back pain Pain - self management, education and home program Decreased ROM/flexibility - manual therapy, therapeutic exercise and home program Decreased function - therapeutic activities and home program Impaired posture - neuro re-education, therapeutic activities and home program Therapy Evaluation Codes: 1) History comprised of: Personal factors that impact the plan of care: Anxiety, Cognition, Coping style, Overall behavior pattern, Secondary gain and Work status. Comorbidity factors that impact the plan of care are: High blood pressure, Osteoarthritis, Overweight and Pain at night/rest. Medications impacting care: Anti-depressant and Anti-inflammatory. 2) Examination of Body Systems comprised of: Body structures and functions that impact the plan of care: Cervical spine, Lumbar spine and Thoracic Spine. Activity limitations that impact the plan of care are: Bending, Dressing, Reading/Computer work, Sitting and Walking. 3) Clinical presentation characteristics are: Evolving/Changing. 4) Decision-Making Moderate complexity using standardized patient assessment instrument and/or measureable assessment of functional outcome. Cumulative Therapy Evaluation is: Moderate complexity. Previous and current functional limitations: (See Goal Flow Sheet for this information) Short term and custodial goals: (See Goal Flow Sheet for this information) Communication ability: Patient appears to be able to clearly communicate and understand verbal and written communication and follow directions correctly. Treatment Explanation - The following has been discussed with the patient: RX ordered/plan of care Anticipated outcomes Possible risks and side effects This patient would benefit from PT intervention to resume normal activities. Rehab potential is good. Frequency: 1 X week, once daily Duration: for 4 weeks Discharge Plan: Independent in home treatment program. Reach maximal therapeutic benefit. Please refer to the daily flowsheet for treatment today, total treatment time and time spent performing 1:1 timed codes. H GRADER SUPERVISOR documented in this encounter Plan of Treatment Not on filedocumented as of this encounter Procedures Procedure Name Priority Date/Time Associated Diagnosis Comme nts Z NEUROMUSCULAR Routine 09/09/2017 5:41 PM Cervicalgia RE-EDUCATION CLOTH GRADER SUPERVISOR Chronic bilateral low back pain without sciatica [facility] THERAPEUTIC EXERCISES Routine 09/09/2017 5:41 PM Cer vicalgia CLOTH GRADER SUPERVISOR Chronic bilateral low back pain without sciatica documented in this encounter Visit Diagnoses Diagnosis Cervicalgia - Primary Chronic bilateral low back pain without sciatica documented in this encounter Care Teams Director Of Parks And Recreation Relationship Specialty Start Date End Date Nemesio Costa MD PCP - General 05/30/11 03/22/20 documented as of this encounter
--- OUTSIDE RECORDS SUMMARY | 2022-04-10 14:44 | XMS_ITS | Encounter Summary ---
:1980 Author Organization [facility] Address [address] [place] [address]. [place] [address] Care Team Providers Name Role Phone Nemesio Costa MD Primary Care Provider Matheus Feliciano MD Primary Care Provider Car Joel MD Unavailable Reason for Visit Reason Comments Medication Refill Encounter Details Date Type Department Care Team Description 09/12/2016 Refill [facility] Surgical Juan A Valdovinos, Medication Refill Weight Loss Clinic E olga PA-C [address] [facility] S out [address] [facility] [address] [facility] [address] [place] [phone] [place] [phone] (Wo rk) Social History Tobacco Use Types Packs/Day Years Used Date Former Smoker Cigarettes Smokeless Tobacco: Never Used Comments: as a child Alcohol Use Standard Drinks/Week Comments No 0 (1 standard drink = 0.6 oz pure alcoho l) Sex Assigned at Date Recorded Female 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
--- OUTSIDE RECORDS SUMMARY | 2022-04-10 14:45 | XMS_ITS | Encounter Summary ---
:1980 Author Organization [facility] Address [address] [place] [address]. 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 reviewed bariatric precautions, written instructions given to patient. iv site removed, medications discussed and new scripts filled by pharmacy and given to patient. discussed w/pt f/u care and instructed pt to f/u with clinic, physical therapy and nutrition. pt verbalized understanding. KIKO Martin)[Signed 18:54] Authored: Progress Note documented in this encounter Plan of Treatment Not on filedocumented as of this encounter Visit Diagnoses Not on filedocumented in this encounter
--- OUTSIDE RECORDS SUMMARY | 2022-04-10 14:45 | XMS_ITS | Encounter Summary ---
:1980 Author Organization [facility] Address [address] [place] [address]. [place] [address] Care Team Providers Name Role Phone Nemesio Costa MD Primary Care Provider Encounter Details Date Type Department Care Team Description 07/22/2013 Orders Only 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
--- OUTSIDE RECORDS SUMMARY | 2022-04-10 14:45 | XMS_ITS | Encounter Summary ---
:1980 Author Organization [facility] Address [address] [place] [address]. [place] [address] Care Team Providers Name Role Phone Nemesio Costa MD Primary Care Provider Matheus Feliciano MD Primary Care Provider Car Joel MD Unavailable Reason for Visit Reason Comments Medication Refill Encounter Details Date Type Department Care Team Description 06/07/2013 Refill [facility] Weight Montserrat Shepherd Medication Refill Management Clinic Ed tapan TIA [place] [address] [place] [address] [place] [phone] Social History Tobacco Use Types Packs/Day Years Used Date Former Smoker Cigarettes Smokeless Tobacco: Never Used Comments: as a child Alcohol Use Standard Drinks/Week Comments No 0 (1 standard drink = 0.6 oz pure alcoho l) Sex Assigned at Date Recorded 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
--- OUTSIDE RECORDS SUMMARY | 2022-04-10 14:45 | XMS_ITS | Encounter Summary ---
:1980 Author Organization [place] Address [facility] [place] [address] Care Team Providers Name Role Phone Nemesio Costa MD Primary Care Provider Reason for Visit Reason Onset Date Comments Other 12/29/2012 Encounter Details Date Type Department Care Team Description 12/29/2012 Telephone [facility] Weight Car Joel MD Other Management Clinic [place] [address] [place] [place] [address] [address] [place] [phone] Social History Tobacco Use Types Packs/Day Years Used Date Former Smoker Cigarettes Smokeless Tobacco: Never Used Comments: as a child Alcohol Use Standard Drinks/Week Comments No 0 (1 standard drink = 0.6 oz pure alcoho l) Sex Assigned at Date Recorded Female 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 She stated that she had 5 bloody stools yesterday and 3 today. There is bright red blood in each of these stools. Greater than 50% of stool is made of bright red blood. Patient does have some abdominal pain and yesterday noticed some lightheadedness. I asked ifmatte has seen anyone. Gricelda stated she had contacted PCP who requested colonoscopy. I stated that if she has had that amount of blood I would advise going to the ER today. I asked which one she would goto she said [facility]. I stated the physician there would direct her to the appropriate care. Gricelda verbalized understanding and stated she would go. Telephone Encounter - Katia Ghosh - 12/29/2012 1:07 PM CDT Gricelda is calling asking if she can have a colonoscopy due to blood in her stool. Please call Thanks Katia documented in this encounter Plan of Treatment Not on filedocumented as of this encounter Visit Diagnoses Not on filedocumented in this encounter Care Teams Inspector Bicycle Relationship Specialty Start Date End Date Nemesio Costa MD PCP - General 05/30/11 03/22/20 documented as of this encounter
--- OUTSIDE RECORDS SUMMARY | 2022-04-10 14:45 | XMS_ITS | Encounter Summary ---
:1980 Author Organization [facility] Address [address] [place] [address]. [place] [address] Care Team Providers Name Role Phone Nemesio Costa MD Primary Care Provider Matheus Feliciano MD Primary Care Provider Car Joel MD Unavailable Encounter Details Date Type Department Care Team Description 10/01/2012 Abstract [facility] Weight Montserrat Shepherd, Management Clinic Ed tapan PA-C [address] [facility] [address] [place] [address] [place] [phone] Social History Tobacco Use Types Packs/Day Years Used Date Former Smoker Cigarettes Smokeless Tobacco: Never Used Comments: as a child Alcohol Use Standard Drinks/Week Comments Not Asked 0 (1 standard drink = 0.6 oz pure alcoho l) Sex Assigned at Date Recorded 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
--- OUTSIDE RECORDS SUMMARY | 2022-04-10 14:45 | XMS_ITS | Encounter Summary ---
:1980 Author Organization [facility] Address [address] [place] [address]. [place] [address] Care Team Providers Name Role Phone Unavailable Primary Care Provider Unavailable Reason for Visit Surgical Procedure Inpatient (Routine) - Closed Specialty Diagnoses / Procedures Referred By Contact Refer red To Contact Surgery Diagnoses Morbid obesity (H) Laparoscopic Gastric Bypass [id number] Julián Rojo MD Benn, Paul Luhman, MD Procedures [facility] [address] [place] [address] [place] [phone] Fax: Referral ID Status Reason Start Date Expiration Date Visits Requ ested Visits Authorized [id number] Closed 04/17/2011 08/09/2011 1 1 Encounter Details Date Type Department Care Team Description 04/17/2011 Office Visit SX SURGERY CASES Julián Rojo MD [address] [place] [address] Juan A Valdovinos PA-C [address] [place] [id number] Social History Tobacco Use Types Packs/Day Years Used Date Never Assessed Sex Assigned at Date Recorded 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 POSTOPERATIVE DIAGNOSIS: Super morbid obesity. OPERATIVE PROCEDURE: Laparoscopic very long Cora-en-Y gastric bypass (155 cm Cora limb). ANESTHESIA: General. ESTIMATED BLOOD LOSS: Less than 25 mL EVENTS: After induction of general endotracheal anesthesia, Ms. Mukul Reid's abdomen was prepped and draped in the usual sterile fashion. 12 mm trocars were placed in the left upper quadrant, left mid abdomen, infraumbilical, right upper quadrant, and left flank position. A 5 mm skin incision was made in the subxiphoid location for the liver retractor. We then divided the greater omentum with a Harmonic scalpel and elevated the transverse colon. Identified the ligament of Treitz, and followed thesmall bowel 45 cm distal to the ligament of Treitz where a suitable loop of small intestine would reach the upper abdomen. At this point, the biliopancreatic limb was marked with a 3-0 Vicryl suture, and the bowel was transected with a JENI stapler. We then created a 155 cm Cora limb, at which point the biliopancreatic limb was anastomosed to the small bowel using a triple staple technique. Mesentericdefect was closed with 2-0 silk suture. The anastomosis was inspected and found to be hemostatic andsecure. Several sheets of Surgicel SNoW were placed along the staple lines. We then turned our attent ion to the upper abdomen. The angle of His was taken down with electrocautery and blunt dissection. The lesser sac was entered along the lesser curvature of the stomach, preserving all of the neurovascular structures of the lesser omentum. The stomach was then divided from this point on entry into thelesser sac out of the angle of His using multiple firings of the Endo-JENI stapler. The stomach was completely transected, and a small gastric pouch created. The anvil of a 25 mm EEA stapler was broughtdown into the gastric pouch through the oral route and out through the staple line. The proximal limb of the Cora limb was opened, and the EEA stapler introduced through it. The EEA stapler was deployed along the antimesenteric border of the Cora limb, and its anvil was coupled to the stapler. The stapler was closed and fired, creating a nice end-to-side gastrojejunostomy. The stapler was removed, and two healthy donuts of tissue identified within it. The proximal end of the Cora limb was then shortened and closed with a JENI stapler. The removed portion of small bowel was placed in an Endocatch bagand removed from the patient's abdomen. We then serially dilated the gastric pouch with saline, air,methylene blue-containing solution, while occluding the Cora limb distal to the gastrojejunostomy. There was no evidence of hemorrhage, nor air leakage, nor fluid leakage. We then further secured the gastrojejunostomy along its entire anterolateral surfaces with multiple interrupted 3-0 Vicryl suture.Small sheets of Surgicel SNoW were placed along the staple lines for hemostasis. Of note is that during the retrogastric dissection, a small area of bleeding was controlled with clip application along the lesser omentum. The abdomen was inspected. No further abnormalities noted. All of the 12 mm trocar sites were closedwith 0 Vicryl suture using a Abdirizak-Dustin device. Trocars were removed under direct visualizationwithout evidence of bleeding. Pneumoperitoneum was released. Skin was approximated in all port siteswith 4-0 Monocryl. Steri-Strips and sterile dressings applied. No immediate complications. Electronically signed on 04/18/2011 21:18 by JULIÁN ROJO MD MT: SHON#[id number] Name: MUKUL REID MRN: [id number] Account: [id number] : 1980 Procedure Date: 04/17/2011 Document: [id number] documented in this encounter Plan of Treatment Not on filedocumented as of this encounter Visit Diagnoses Not on filedocumented in this encounter
--- OUTSIDE RECORDS SUMMARY | 2022-04-10 14:45 | XMS_ITS | Encounter Summary ---
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 NUTRITION DIAGNOSIS: Obesity R/t excess energy intake AEB current BMI of 48.4 INTERVENTIONS: Reviewed gastric bypass diet guidelines, provided copy of diet materials Pt verbalizes understanding of diet, expect fair-good compliance GOALS: Pt to follow diet advancement as instructed Weight to have decreased from pre-op weight at 2 week F/U appointment FOLLOW UP: Pt will tolerate gastric bypass full liquid diet Provided RD phone number [Signature] Author: TISH GARG (MEd, RD, LD) [Signed 16:44] documented in this encounter Plan of Treatment Not on filedocumented as of this encounter Visit Diagnoses Not on filedocumented in this encounter
--- OUTSIDE RECORDS SUMMARY | 2022-04-10 14:45 | XMS_ITS | Encounter Summary ---
:1980 Author Organization [facility] Address [address] [place] [address]. 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 documented in this encounter Results Platelet count (04/17/2011 6:05 AM CDT) P athologist Signature Platelet Count 287 150 - 450 ASPERS 10e9/L [facility] Specimen Anatomical Collection Method Collection Time Receive d Time (Source) Location / / Volume Laterality 04/17/2011 6:05 AM 6:14 CDT AM CDT Car Joel MD LAB - BLOOD ORDERABLES Performing Organization Address City/State/ZIP Code Phon e Number [facility] [address] [place] [address] [facility] documented in this encounter Visit Diagnoses Not on filedocumented in this encounter
--- OUTSIDE RECORDS SUMMARY | 2022-04-10 14:45 | XMS_ITS | Encounter Summary ---
:1980 Author Organization [facility] Address [address] [place] [address]. [place] [address] Care Team Providers Name Role Phone Nemesio Costa MD Primary Care Provider Matheus Feliciano MD Primary Care Provider Car Joel MD Unavailable Reason for Visit Reason Comments Refill Request Encounter Details Date Type Department Care Team Description 05/16/2013 Refill [facility] Weight Montserrat Shepherd Refill Request Management Clinic Ed tapan Henley PA-C [address] [place] [address] [place] [phone] Social History Tobacco Use Types Packs/Day Years Used Date Former Smoker Cigarettes Smokeless Tobacco: Never Used Comments: as a child Alcohol Use Standard Drinks/Week Comments No 0 (1 standard drink = 0.6 oz pure alcoho l) Sex Assigned at Date Recorded 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
--- OUTSIDE RECORDS SUMMARY | 2022-04-10 14:45 | XMS_ITS | Encounter Summary ---
:1980 Author Organization [facility] Address [address] [place] [address]. [place] [address] Care Team Providers Name Role Phone Nemesio Costa MD Primary Care Provider Matheus Feliciano MD Primary Care Provider Car Joel MD Unavailable Reason for Visit Reason Comments Medication Refill Encounter Details Date Type Department Care Team Description 07/13/2013 Refill [facility] Weight Montserrat Shepherd Medication Refill Management [facility] Ed tapan Henley PA-C [address] [place] [address] [place] [phone] Social History Tobacco Use Types Packs/Day Years Used Date Former Smoker Cigarettes Smokeless Tobacco: Never Used Comments: as a child Alcohol Use Standard Drinks/Week Comments No 0 (1 standard drink = 0.6 oz pure alcoho l) Sex Assigned at Date Recorded 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
--- OUTSIDE RECORDS SUMMARY | 2022-04-10 14:45 | XMS_ITS | Encounter Summary ---
:1980 Author Organization [facility] Address [address] [place] [address]. 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 PARATHYROID HORMONE Routine 10/20/2011 4:49 PM Re sults for this INTACT CDT procedure are i n the results section. IRON AND IRON BINDING Routine 10/20/2011 4:49 PM Results for this CAPACITY CDT procedure are i n the results section. FERRITIN Routine 10/20/2011 4:49 PM Results f or this CDT procedure are i n the results section. VITAMIN B12 Routine 10/20/2011 4:49 PM Results f or this CDT procedure are i n the results section. CBC WITH PLATELETS Routine 10/20/2011 4:49 PM Res ults for this CDT procedure are i n the results section. documented in this encounter Results Vitamin D Deficiency (10/20/2011 4:49 PM CDT) Component Value Ref Test Analysis Performed At [facility] gist Range Method Time Signature 25 OH Vit D2 <5 ug/L [facility] 25 OH Vit D3 38 ug/L [facility] 25 OH Vit D <43 30 - 75 [facility] total Season, race, dietary intake, and treatm ent affect the concentration of ug/L [place] [id number] D. Values may decrease during pawel er months and increase [facility] during summer months. Values less than 30 ug/L may indicate Vitamin D deficiency. Specimen Anatomical Collection Method Collection Time Receive d Time (Source) Location / / Volume Laterality 10/20/2011 4:49 PM 2 5:25 CDT PM CDT Montserrat Shepherd PA-C LAB - BLOOD ORDERABLES Performing Organization Address City/[facility]/ZIP Code Phon e Number [address] LABS Vitamin B12 (10/20/2011 4:49 PM CDT) athologist Signature Vitamin B12 331 >210 pg/mL [facility] Comment: Interp: [phone] = Normal Specimen Anatomical Collection Method Collection Time Receive d Time (Source) Location / / Volume Laterality 10/20/2011 4:49 PM 2 5:25 CDT PM CDT Montserrat Shepherd PA-C LAB - BLOOD ORDERABLES Performing Organization Address City/State/ZIP Code Phon e Number [address] LABS Parathormone intact (10/20/2011 4:49 PM CDT) athologist Signature Parathyroid 33 12 - 72 [facility] Hormone Intact pg/mL [facility] Comment: The PTHI reagent has been enhanced to el iminate suppression of values due to interference from high biotin levels. B ecause of this, patients who are on high doses of biotin may have higher results with the new reagent Specimen Anatomical Collection Method Collection Time Receive d Time (Source) Location / / Volume Laterality 10/20/2011 4:49 PM 2 5:25 CDT PM CDT Montserrat Kale Shepherd PA-C LAB - BLOOD ORDERABLES Performing Organization Address City/State/ZIP Code Phon e Number [facility] [address] [place] [address] [facility] Ferritin (10/20/2011 4:49 PM CDT) athologist Signature Ferritin 99 10 - 120 [facility] ng/mL [facility] Specimen Anatomical Collection Method Collection Time Receive d Time (Source) Location / / Volume Laterality 10/20/2011 4:49 PM 2 5:25 CDT PM CDT Montserrat Kale Shepherd PA-C LAB - BLOOD ORDERABLES Performing Organization Address City/[facility]/ZIP Code Phon e Number [facility] [address] [place], [place] [address] [facility] Iron and iron binding capacity (10/20/2011 4:49 PM CDT) athologist Signature Iron 95 35 - 180 [place] ug/dL [facility] Iron Binding 259 240 - 430 [place] Cap ug/dL [facility] Iron Saturation 37 15 - 46 % [facility] Specimen Anatomical Collection Method Collection Time Receive d Time (Source) Location / / Volume Laterality 10/20/2011 4:49 PM 2 5:25 CDT PM CDT Montserrat Kale Shepherd PA-C LAB - BLOOD ORDERABLES Performing Organization Address City/[facility]/ZIP Code Phon e Number [facility] [address] [place], [place] [address] [facility] CBC with platelets (10/20/2011 4:49 PM CDT) athologist Signature WBC 10.6 4.0 - 11.0 [place] 10e9/L [facility] RBC Count 4.67 3.8 - 5.2 [place] 10e12/L [facility] Hemoglobin 14.4 11.7 - [place] 15.7 g/dL [facility] Hematocrit 42.9 35.0 - [place] 47.0 % [facility] MCV 92 78 - 100 [place] fl [facility] MCH 30.8 26.5 - [place] 33.0 pg [facility] MCHC 33.6 31.5 - [place] 36.5 g/dL [facility] RDW 12.7 10.0 - [place] 15.0 % [facility] Platelet Count 293 150 - 450 [place] 10e9/L [facility] Specimen Anatomical Collection Method Collection Time Receive d Time (Source) Location / / Volume Laterality 10/20/2011 4:49 PM 2 5:25 CDT PM CDT Montserrat Shepherd PA-C LAB - BLOOD ORDERABLES Performing Organization Address City/State/ZIP Code Phon e Number [place] [address] [address] [place], [place] [address] [facility] documented in this encounter Visit Diagnoses Not on filedocumented in this encounter Care Teams Ocean Export Agent Relationship Specialty Start Date End Date Nemesio Costa MD PCP - General 05/30/11 03/22/20 documented as of this encounter
--- OUTSIDE RECORDS SUMMARY | 2022-04-10 14:45 | XMS_ITS | Encounter Summary ---
:1980 Author Organization [facility] Address [address] [place] [address]. [place] [address] Care Team Providers Name Role Phone Nemesio Costa MD Primary Care Provider Matheus Feliciano MD Primary Care Provider Car Joel MD Unavailable Reason for Visit Reason Comments Medication Refill Encounter Details Date Type Department Care Team Description 06/30/2013 Refill [facility] Weight Montserrat Shepherd Medication Refill Management Clinic Ed tapan TIA Henley [address] [place] [address] [place] [phone] Social History Tobacco Use Types Packs/Day Years Used Date Former Smoker Cigarettes Smokeless Tobacco: Never Used Comments: as a child Alcohol Use Standard Drinks/Week Comments No 0 (1 standard drink = 0.6 oz pure alcoho l) Sex Assigned at Date Recorded 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
--- OUTSIDE RECORDS SUMMARY | 2022-04-10 14:45 | XMS_ITS | Encounter Summary ---
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 - Would you like more Yes (Ad booklet given) information about Advanced Health Care Directives? - Does the patient No require help of the hospital staff to complete advanced directives? Health and Illness - Reason for visit as gastric bypass Stated by Patient Role Relationships/Living Environment - Limitations on none Visitors/Phone Calls/TV - Lives With spouse - Living Arrangements house - Home Accessibility no concerns Substance Use - Tobacco Use Quit more than 12 months ago. - Caffeine Use No - Alcohol Use none - History of street No drug/inhalant/ medication abuse Review of Systems - Neurological migraines; takes Immitrex as needed/not for sev Conditions/Symptoms wks now - Pain: 3 Comfort/Acceptable Pain Level (0-10) - Cardiac none Conditions/Symptoms - Peripheral/Neurovasc_ none ular Conditions/Symptoms - Respiratory sleep apnea; borderline Conditions/Symptoms - Diet Regular - Nutrition Risk Screen No risk indicators present - GI none Conditions/Symptoms - Reproductive hysterectomy Conditions/Symptoms, Female - Musculoskeletal back pain; low back pain Conditions/Symptoms - Ambulation 0 - Independent with ambulation - Transferring 0 - Independent with transfers - Toileting 0- Independent with toileting - Bathing 0- Independent with bathing - Dressing 0- Independent with dressing - Eating 0- Independent with eating - Swallowing no swallowing issues reported - Cognition no cognition issues reported - Communication/speech no speech or language problems - Fall history within No history of falls last six months - Which of the above none functional risks had a recent onset or change? - Skin none reported Conditions/Symptoms - Endocrine hypothyroidism Conditions/Symptoms - Immune /Infections none - Influenza vaccine N/A; Not currently flu season (11/08 - 04/09) - Pneumococcal Vaccine never immunized - Pneumococcal Vaccine none of the above indications Indications - offer year round (Check all that apply) - Oncology none Conditions/Symptoms - Mental Health none Conditions/Symptoms Skin Inspection - Skin Inspection: WDL: color consistent w/ ethnicity; no abnormality in temperature, moisture, turgor, integrity Coping Stress/Abuse - Major hospitalization Change/Loss/Stressor - QUESTION TO PATIENT: No Has a member of your family or a partner(now or in the past) intimidated, hurt, manipulated, or controlled you in any way? - QUESTION TO Yes PATIENT/CAREGIVER: Do you feel safe going back to the place where you are living? - NURSE OBSERVATION: Is No there reason to believe there has been maltreatment of a vulnerable adult (ie. Physical/Sexual/Emot_ ioanl abuse, self neglect, lack of adequate food, penitentiary, medical care, or financial exploitation)? Values/Beliefs/Spiritual Care - C: Community: In no thank you support of your spiritual health, is there someone we may contact for you? (identify all that apply) Learning Assessment - Factors Influencing no factors identified Readiness to Learn - Factors that Impact none Ability to Learn - Learning Preferences individual instruction; verbal instruction; written material - Cultural none Considerations - Developmental none Considerations - Roman Catholic none Considerations Mutuality/Individual Preferences - What information nothing special would help us give you more personalized care? FRANCES Murray)[Signed 10:02] Authored: General Information, Advance Directive, Health and Illness, Role Relationships/Living Environment, Substance Use, Review of Systems, Coping Stress/Abuse, Values/Beliefs/Spiritual Care, Learning Assessment, Mutuality/Individual Preferences MINGO SHEIKH (RN)[Signed 06:10] Authored: Advance Directive, Review of Systems, Skin Inspection, Coping Stress/Abuse TISH GARG (MEd, RD, LD)[Signed 16:38] Authored: Review of Systems documented in this encounter Plan of Treatment Not on filedocumented as of this encounter Visit Diagnoses Not on filedocumented in this encounter
--- OUTSIDE RECORDS SUMMARY | 2022-04-10 14:45 | XMS_ITS | Encounter Summary ---
:1980 Author Organization [facility] Address [address] [place] [address]. [place] [address] Care Team Providers Name Role Phone Nemesio Costa MD Primary Care Provider Encounter Details Date Type Department Care Team Description 10/20/[address] 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
--- OUTSIDE RECORDS SUMMARY | 2022-04-10 14:45 | XMS_ITS | Encounter Summary ---
:1980 Author Organization [facility] Address [address] [place] [address] Care Team Providers Name Role Phone Nemesio Costa MD Primary Care Provider Reason for Referral - Closed Specialty Diagnoses / Procedures Referred By Contact Refer red To Contact Diagnoses Strain of thoracic spine Scapular dyskinesis Wang Dumas MD [address] [place], [place] [address] Referral ID Status Reason Start Date Expiration Date Visits Requ ested Visits Authorized [id number] Closed 01/01/2012 06/29/2012 1 1 Reason for Visit Reason Comments Back Pain NEW, mid-back, 3 years ago, possibly due to chiro adjustment Encounter Details Date Type Department Care Team Description 01/01/2012 Office Visit [facility] & Wang Dumas Strain o f thoracic spine; Orthopedic MD Kemar Scapular dyskinesis [facility] [address] [place], [place] [address] BERNA[place] LOBO, [facility] [id number] [address] [place], [place] (Work) [phone] Social History Tobacco Use Types Packs/Day Years Used Date Former Smoker Cigarettes Smokeless Tobacco: Never Used Comments: as a child Alcohol Use Standard Drinks/Week Comments Not Asked 0 (1 standard drink = 0.6 oz pure alcoho l) Sex Assigned at Date Recorded 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 Last Filed Vital Signs Vital Sign Reading Time Taken Comments Blood Pressure 100/80 01/01/2012 10:47 AM CDT Pulse - - Temperature - - Respiratory Rate - - Oxygen Saturation - - Inhaled Oxygen Concentration - - Weight 88 kg (194 lb) 01/01/2012 10:47 AM CDT Height 165.1 cm (5' 5) 01/01/2012 10:47 AM CDT Body Mass Index 32.28 01/01/2012 10:47 AM CDT documented in this encounter Patient Instructions Patient InstructionsWang Dumas MD - 01/01/2012 11:45 AM CDT 1) Physical therapy office will contact you to set up appointment 2) If not improving after 6-8 weeks of physical therapy, call and we can set up MRI 3) In the interim, acetaminophen, ice, and heat as needed for pain control documented in this encounter Progress Notes Wang Dumas MD - 01/01/2012 10:52 AM CDT [facility] Visit s January 01, 2012 Subjective: Gricelda Roberts is a 31 year old female who is seen as self referral for evaluation of thoracic backpain. Symptoms began 3 years(s) ago, and have been gradually worsening since that time. Patient reports insidious onset without acute precipitating event. She reports sharp back pain that is located between the spine and the scapula on the left; radiation absent. Pain is 8/10 in maximal severity, and 4/10 currently. Symptoms are generally worse with walking, playing tennis, or exercise; better with lying down. Had been going to a chiropractor, but she feels this may have worsened her pain. Associated symptoms: denies any bowel/bladder dysfunction or saddle anesthesia; no distal numbness or tingling, no lower extremity muscle weakness. Has had focal numbness/tingling in the area of her maximal discomfort. She denies history of related problems. Gricelda was asked to complete the Oswestry Low Back Disability Index today in the office. Disability score: 46%; pain severity scale: 8/10. Patient's past medical, surgical, social and family histories are reviewed today. She recently underwent gastric bypass surgery and has lost approximately 160 lbs - she has been more active since that time and feels her symptoms have been flared with more activity. Review of Systems: Constitutional:NEGATIVE for fever, chills. Weight loss from bypass as noted above Skin: NEGATIVE for worrisome rashes, moles or lesions Neuro: NEGATIVE for weakness, dizziness or paresthesias MSK: see HPI Objective: BP 100/80 Ht 5' 5 (1.651 m) Wt 194 lb (87.998 kg) BMI 32.28 kg/m2 General: healthy, alert and no distress Skin: no suspicious lesions or rashes Psych: mentation appears normal and affect normal/bright Gait: normal Neuro: DTRs 2+/symmetric patella/achilles. Sensory examination of the lower extremities is within normal limits. Motor strength as noted below. MSK: THORACIC/LUMBAR SPINE Inspection: No redness, swelling, overlying skin change, or gross deformity/asymmetry. Scapular dyskinesis is present - asymmetric on the affected left side. Palpation: Tender about the left parathoracic muscles No tenderness over the thoracic spinous processes, right parathoracic muscles, lumbar spinous processes, left para lumbar muscles or right para lumbar muscles. No scapular tenderness. Range of Motion: Lumbar flexion full Lumbar extension full Right side bend full Left side bend full Right rotation full Left rotation full Strength: Full strength throughout hips/quads/hamstrings, no foot drop present Special Tests: Positive: none Negative: straight leg raise (bilateral), slump test (bilateral), Rick's forward bend (scoliosis) Imaging: Thoracic spine x-rays (2 views, AP/lateral) were ordered and interpreted in the office today. Impression: Very mild scoliosis present. On the lateral view there is some mild anterior wedging/degenerative change but overall well-preserved disc heights and joint spaces. ASSESSMENT: 1. Strain of thoracic spine (847.1L) 2. Scapular dyskinesis (781.3JK) PLAN: 1) Chronic thoracic strain, worse again recently now that she is trying to be more active following her bypass surgery. She has some mild thoracic degenerative change and may have some focal neural impingement causing the aching and numbness. She also has quite a bit of scapular dyskinesis on the affected left side which is contributing to ongoing myofascial pain in that area. 2) Discussed etiology and natural history of condition, as well as the various treatment options including activity modification, use of acetaminophen and ice for symptomatic relief, and physical therapy. 3) She has tried chiropractic, but does not remember even going to one PT session that she did last year - obviously has not adopted a reliable home exercise program from that. With the chronic thoracic strain and scap dyskinesis, she would definitely benefit from a trial of PT focusing on these areas- referral placed today. 4) If she is not improving after 6-8 weeks of PT, advanced imaging would be warranted to evaluate for degenerative change amenable to corticosteroid injection. Continued weight loss should also help overall with her symptoms. She was instructed to contact our office sooner should the condition evolve or worsen, or should any new/progressive neurologic symptoms develop. Wang Dumas MD, [facility] documented in this encounter Nursing Notes 01/01/2012 10:30 AM CDT >> Karen Arreaga Palmira January 01, 2012 10:52 AM Patient presents with: Back Pain - NEW, mid-back, 3 years ago, possibly due to chiro adjustment Initial BP 100/80 Ht 5' 5 (1.651 m) Wt 194 lb (87.998 kg) BMI 32.28 kg/m2 Estimated Body massindex is 32.28 kg/(m^2) as calculated from the following: Height as of this encounter: 5' 5(1.651 m). Weight as of this encounter: 194 lb(87.998 kg).. BP completed using cuff size: large Karen Arreaga ATC documented in this encounter Plan of Treatment Scheduled Referrals Name Type Priority Associated Diagnoses Order S chedule MAXIMUS PT, HAND, AND Referral Routine Strain of thoracic Orde red: 01/01/2012 CHIROPRACTIC REFERRAL spine Scapular dyskinesis documented as of this encounter Procedures Procedure Name Priority Date/Time Associated Diagnosis Comme nts XR THORACIC SPINE 2 Routine 01/01/2012 11:20 AM Strain of thor acic Results for this VIEWS CDT spine procedure are in Scapular dyskinesis the resu lts section. documented in this encounter Results X-ray Thoracic spine 2 vw (01/01/2012 11:20 AM CDT) Anatomical Region Laterality Modality C-spine, T-spine, L-spine, Chest Other Specimen (Source) Anatomical Collection Method Collection Time Re ceived Time Location / / Volume Laterality 01/01/2012 11:20 AM CDT Impressions 01/01/2012 4:44 PM CDT THORACIC SPINE TWO VIEWS ??January 01, 2012 11:20:00 AM HISTORY: Strain of thoracic spine. COMPARISON: ??None. FINDINGS: ??Mild curvature thoracic spin e convex to the left measuring 6 degrees from superior T7 through super ior L1. No acute appearing bony abnormalities or significant degene rative disc disease. Wang Dumas MD IMG DIAGNOSTIC IMAGING ORDER TONY documented in this encounter Visit Diagnoses Diagnosis Strain of thoracic spine Sprain of thoracic region Scapular dyskinesis Lack of coordination documented in this encounter Care Teams Inside Sales Assistant Relationship Specialty Start Date End Date Nemesio Costa MD PCP - General 05/30/11 03/22/20 documented as of this encounter
--- OUTSIDE RECORDS SUMMARY | 2022-04-10 14:45 | XMS_ITS | Encounter Summary ---
:1980 Author Organization [facility] Address [address] [place] [address]. 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 documented in this encounter Results X-ray Upper GI water soluble (04/18/2011 8:57 AM CDT) Specimen (Source) Anatomical Collection Method Collection Time Re ceived Time Location / / Volume Laterality 04/18/2011 8:57 AM CDT Impressions RADIOLOGY RESULTS - 04/18/2011 10:05 AM CDT UGI W/ GASTROGRAFIN ??Apr 18, 2011 8:57:0 0 AM HISTORY: ??Postop gastric bypass. FINDINGS: Fluoro time of 36 seconds. Dis kyalyn esophagus and gastric remnant appear normal. Normally function ing gastrojejunostomy. No evidence for obstruction or extravasatio n. IMPRESSION: ?Normal postoperative up per GI. Juan A Valdovinos PA-C IMG DIAGNOSTIC IMAGING ORDER TONY Performing Organization Address City/State/ZIP Code Phon e Number RADIOLOGY RESULTS documented in this encounter Visit Diagnoses Not on filedocumented in this encounter
--- OUTSIDE RECORDS SUMMARY | 2022-04-10 14:45 | XMS_ITS | Encounter Summary ---
:1980 Author Organization [facility] Address [address] [place] [address]. [place] [address] Care Team Providers Name Role Phone Nemesio Costa MD Primary Care Provider Reason for Visit Reason Comments Surgical Followup Encounter Details Date Type Department Care Team Description 07/12/2013 Office Visit [facility] Car Joel Bariatr ic surgery status (Primary Dx); Weight Management Overweight and obesity(278.0) [facility] [place] [address] [place] [address] [place] [phone] Social History Tobacco Use Types Packs/Day Years Used Date Former Smoker Cigarettes Smokeless Tobacco: Never Used Comments: as a child Alcohol Use Standard Drinks/Week Comments No 0 (1 standard drink = 0.6 oz pure alcoho l) Sex Assigned at Date Recorded 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 of 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 encounter Last Filed Vital Signs Vital Sign Reading Time Taken Comments Blood Pressure 124/87 07/12/2013 10:50 AM MECHANICAL EQUIPMENT TEST ENGINEER Pulse 106 07/12/2013 10:50 AM MECHANICAL EQUIPMENT TEST ENGINEER Temperature 36.6 ??C (97.9 ??F) 07/12/2013 10:50 AM MECHANICAL EQUIPMENT TEST ENGINEER Respiratory Rate 14 07/12/2013 10:50 AM MECHANICAL EQUIPMENT TEST ENGINEER Oxygen Saturation - - Inhaled Oxygen Concentration - - Weight 82.4 kg (181 lb 11.2 oz) 07/12/2013 10:50 AM MECHANICAL EQUIPMENT TEST ENGINEER Height - - Body Mass Index 30.24 12/29/2012 2:41 PM CDT documented in this encounter Progress Notes Car Joel MD - 07/13/2013 10:31 AM CST 2 years post operative visit after laparoscopic Cora-en-Y gastric bypass. Mrs. Roberts continues to be very successful with her weight loss,she is 140 pounds down from her preoperative weight. Over the last several months she's experienced some family difficulties ( of [id number]). These event has disturbed her adherence to dietary habits, she has realized this problem and is working on a solution. She continued to exercise and has been enjoying [employer] hunting recently. Her gastrointestinal function is good, the only item the give her trouble is rice. At this point her only complaint is that of skin irritation and continue yeast infection on the lower abdomen below her abdominal pannus, I will have her visit with plastic surgery to consider excess skin removal. She also mentions easy bruising. This may be related to vitamins or mineral deficiencies, this will be checked but also we will adjust the current multivitamins she is taking as this are not sufficientto cover her needs. Overall she is very please with the results, will contact her if there's any adjustments need it to some of her other supplements. If no problems arise over the next year will plan on seeing her on her3 year anniversary. If you have any questions or concerns please do not hesitate to give us a call. Please route or send letter to: Primary Care Provider (PCP), Referring Provider and Include Progress Note ANICAL EQUIPMENT TEST ENGINEER documented in this encounter Plan of Treatment Not on filedocumented as of this encounter Visit Diagnoses Diagnosis Bariatric surgery status - Primary Overweight and obesity(278.0) documented in this encounter Care Teams Broiler Chef Or Cook Relationship Specialty Start Date End Date Nemesio Costa MD PCP - General 05/30/11 03/22/20 documented as of this encounter
--- OUTSIDE RECORDS SUMMARY | 2022-04-10 14:45 | XMS_ITS | Encounter Summary ---
:1980 Author Organization [facility] Address [address] [place] [address]. [place] [address] Care Team Providers Name Role Phone Nemesio Costa MD Primary Care Provider Encounter Details Date Type Department Care Team Description 05/03/2012 Office Visit [facility] Weight Cora, Montserrat Henley PA-C [address] [place] [address] Management Clinic Ed t[address], Sh Wl Diet, RD [address] [place] [address] Social History Tobacco Use Types Packs/Day Years Used Date Former Smoker Cigarettes Smokeless Tobacco: Never Used Comments: as a child Alcohol Use Standard Drinks/Week Comments Not Asked 0 (1 standard drink = 0.6 oz pure alcoho l) Sex Assigned at Date Recorded 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 She was accompanied by her children. DIAGNOSIS: Obesity ANTHROPOMETRICS: Height: 64 Weight: 183.9 lbs BMI: 31.56 kg/m2 CURRENT MEDICATIONS/SUPPLEMENTS: Multivitamin/Mineral: Multivitamins (+ Iron) Vitamin D Vitamin B12 shot Vitamin C calcium (1 at each meal) NUTRITION HISTORY: Breakfast: oatmeal, toast with peanut butter and a piece of fruit Lunch: turkey sandwich Supper: pot roast with veggies Snacks: wheat thin Consuming liquid calories: milk Protein intake: varies Tolerate regular texture food: except pasts and soft bread Any foods not tolerated details: pasta; soft bread Portion size: 1 cup or more Take 30 minutes to consume each meal: varies Eat protein foods first: Yes Fluids and meals separate by at least 30 minutes: Yes Chew foods 20 plus times: yes Tolerating diet: yes Drinking high protein supplements/shakes: no Consuming meals per day: 4 Consuming snacks per day: 2 ACTIVITY: Fell 2 or more times last year? No Fell 2 or more times last year and injured? No Patient is at risk for falling? No PHYSICAL ACTIVITY: Exercise: Yes Frequency (days a week): 3-5 times a week Duration (min): 30 DIAGNOSIS: Previous Nutrition Diagnosis: Altered gastrointestinal function related to alteration in gastrointestinal structure as evidenced by history of Gastric Bypass (Cora-en-Y) surgery. Previous goals: increase protein to 60 grams per day (improving); take calcium with each meal (met);Take MVI at night (met); eliminate AM snack (met) Current Nutrition Diagnosis: remains the same INTERVENTION: Nutrition Prescription: Altered gastrointestinal function related to alteration in gastrointestinal structure as evidenced by history of Gastric Bypass (Cora-en-Y) surgery. Goals: Drink milk or Clarion Instant Breakfast in the afternoon; decrease evening meal to 1 cup; Eat 3 food groups per meal Implementation: Discussed ways to eliminate low blood sugars in the afternoon. Encouraged patient tocontinue following gastric bypass guidelines. NUTRITION MONITORING AND EVALUATION: Expected compliance: fair-good Continue to closely monitor food choices and weight loss. TIME SPENT WITH PATIENT: 30 minutes documented in this encounter Plan of Treatment Not on filedocumented as of this encounter Visit Diagnoses Not on filedocumented in this encounter Care Teams Hadoop Engineer Relationship Specialty Start Date End Date Nemesio Costa MD PCP - General 05/30/11 03/22/20 documented as of this encounter
--- OUTSIDE RECORDS SUMMARY | 2022-04-10 14:45 | XMS_ITS | Encounter Summary ---
:1980 Author Organization [place] Address [facility] [place] [address] Care Team Providers Name Role Phone Nemesio Costa MD Primary Care Provider Reason for Visit Reason Comments Medication Refill Encounter Details Date Type Department Care Team Description 06/27/2013 Refill [facility] Weight Montserrat Shepherd Medication Refill Management [facility] [place] [address] [place] [address] [place] [phone] Social History Tobacco Use Types Packs/Day Years Used Date Former Smoker Cigarettes Smokeless Tobacco: Never Used Comments: as a child Alcohol Use Standard Drinks/Week Comments No 0 (1 standard drink = 0.6 oz pure alcoho l) Sex Assigned at Date Recorded Female 06/29/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[employer] documented as of this encounter Miscellaneous Notes Telephone Encounter - Montserrat Shepherd PA-C - 06/30/2013 5:21 PM MAINTENANCE CONSTRUCTION HEL[employer] Pt must be seen in clinic for annual refill [employer]NAN[employer] documented in this encounter Plan of Treatment Not on filedocumented as of this encounter Visit Diagnoses Diagnosis Other and unspecified postsurgical nonab sorption - Primary documented in this encounter Care Teams Prosthetics Lab Technician Relationship Specialty Start Date End Date Nemesio Costa MD PCP - General 05/30/11 03/22/20 documented as of this encounter
--- OUTSIDE RECORDS SUMMARY | 2022-04-10 14:45 | XMS_ITS | Encounter Summary ---
:1980 Author Organization [place] Address [address] [place] [id number] Care Team Providers Name Role Phone Nemesio Costa MD Primary Care Provider Reason for Visit Reason Comments Other Encounter Details Date Type Department Care Team Description 12/29/2012 Emergency [facility] Javi Carreno He matochezia ([facility] Dept [facility] [address] [place], [place] [address] [employer] [phone] [place] [address] [place], [place] [address] (Wo rk) Social History Tobacco Use Types Packs/Day Years Used Date Former Smoker Cigarettes Smokeless Tobacco: Never Used Comments: as a child Alcohol Use Standard Drinks/Week Comments No 0 (1 standard drink = 0.6 oz pure alcoho l) Sex Assigned at Date Recorded 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 Last Filed Vital Signs Vital Sign Reading Time Taken Comments Blood Pressure 120/77 12/29/2012 6:26 PM CDT Pulse 96 12/29/2012 6:26 PM CDT Temperature 37.1 ??C (98.8 ??F) 12/29/2012 2:41 PM CDT Respiratory Rate 18 12/29/2012 6:26 PM CDT Oxygen Saturation 100% 12/29/2012 6:26 PM CDT Inhaled Oxygen Concentration - - Weight 81.6 kg (180 lb) 12/29/2012 2:41 PM CDT Height 165.1 cm (5' 5) 12/29/2012 2:41 PM CDT Body Mass Index 29.95 12/29/2012 2:41 PM CDT documented in this encounter Discharge Instructions Discharge InstructionsTrJavi garcia MD - 12/29/2012 6:24 PM CDT See your primary care physician later this week to have your hemaglobin rechecked - it is 11.5 today. Return to the ER for severe pain, any fevers, increased bleeding, or ANY other emergent concerns. AttachmentsThe following attachments cannot be sent through Care Everywhere. RECTAL BLEED, STABLE (UPPER SORBIAN)documented in this encounter Medications at Time of Discharge Medication Sig Dispensed Refills Start Date End Date atomoxetine (STRATTERA) Take 80 mg by mouth 0 80 MG capsule daily. busPIRone HCl (BUSPAR) 30 Take 30 mg by mouth 0 MG tablet 2 times daily SUMAtriptan (IMITREX) 100 Take 100 mg by mouth 0 MG tablet every 8 hours as needed ADAPALENE EX Externally apply 0 2019 topically. Ascorbic Acid (VITAMIN C Take by mouth. 0 12/28/2019 PO) CALCIUM PO Take by mouth. 0 07/12/2013 Cholecalciferol (VITAMIN Take by mouth. 0 07/12/2013 D PO) CHOLESTYRAMINE PO Take by mouth. 0 10/2012 citalopram (CELEXA) 40 MG Take 40 mg by mouth 0 11/17/2019 tablet daily. clindamycin (CLEOCIN T) 1 Apply topically 2 0 11/17/2019 % lotion times daily. Cyanocobalamin (VITAMIN Inject as directed. 0 02/15/2020 B-12 IJ) LEVAQUIN 500 MG OR ONE DAILY 7 0 03/20/20072012 TABSIndications: Open wound of foot except toe(s) alone, without mention of complication levothyroxine Take by mouth daily. 0 0 02/15/2020 (LEVOTHROID) 75 MCG tablet nystatin-triamcinolone Apply 0.5 inches 0 11/17/2019 (MYCOLOG II) cream topically 4 times daily. PROPRANOLOL HCL PO Take by mouth. 0 Syringe/Needle, Disp, (BD 0 02/15/2020 LUER-LORIE SYRINGE) traZODone (DESYREL) 100 Take by mouth At 0 11/17/2019 MG tablet Bedtime. verapamil (VERELAN) 120 Take 120 mg by mouth 0 11/17/2019 MG 24 hr capsule daily. ZOLMitriptan (ZOMIG PO) Take 5 mg by mouth 0 04/12/2020 as needed documented as of this encounter ED Notes Ariane Pastor RN - 12/29/2012 6:41 PM CDT Discharge instructions reviewed with patient. Patient verbalizes her understanding. Followup instructions reviewed. DC to home per order. All questions answered. Javi Carreno MD - 12/29/2012 4:31 PM CDT History Chief Complaint: Bloody stool HPI Gricelda Roberts is a 32 year old female who presents to the ED for evaluation of bloody stool. Yesterday afternoon the patient had the onset of some discomfort to her LLQ abdomen as well as some loose,watery, bright red, bloody stool. She had around 4-5 episodes of this yesterday. Today she has continued to have the abdominal pain and has had 5 more episodes of bright, red bloody diarrhea. This afternoon she had the onset of some lightheadedness and chills, so she followed up with her PMD at [facility]. They checked her for any sign of hemorrhoids. When they did not find anything they asked herto contact her GI surgeon that had performed her gastric bypass in 10/2011. The nurse at that clinic told her to come into the ED for further evaluation to make sure there was nothing life threatening going on. Here the patient continues to have symptoms and rates her discomfort as 4/10. Palpation of her abdomen will mildly exacerbate her discomfort. She has never had symptoms like this before, and has not had any sick contacts or recent travel. Otherwise the patient denies any fever, chills, vomiting, SOB, or any other physical complaints. Allergies: NKDA Medications: Verapamil Strattera Calcium Vitamin B 12 Buspirone Trazodone Citalopram Sumatriptan Cholestyramine Zomig Levothyroxine sodium Ascorbic acid Cholecalciferol Mycolog Propranolol Adapalene Cleocin Past Medical History: Back pain Thyroid disease Substance abuse Migraine Depression Insomnia Past Surgical History: Gastric bypass Family/Social History: The patient denies any significant past family history. Relationship status: The patient denies any tobacco or alcohol use. Former tobacco smoker. Review of Systems Constitutional: Negative for fever. Respiratory: Negative for shortness of breath. Gastrointestinal: Positive for abdominal pain, diarrhea and blood in stool. Negative for vomiting. All other systems reviewed and are negative. Physical Exam First Vitals: BP: 119/79 mmHg Heart Rate: 96 Temp: 98.8 ??F (37.1 ??C) Resp: 18 Height: 165.1 cm (5' 5) Weight: 81.647 kg (180 lb) SpO2: 100 % Physical Exam Nursing note and vitals reviewed. HENT: Nose: Nose normal. Mouth/Throat: Oropharynx is clear and moist. Eyes: EOM are normal. Pupils are equal, round, and reactive to light. Cardiovascular: Normal rate, regular rhythm and normal heart sounds. Pulmonary/Chest: Effort normal and breath sounds normal. She has no rales. Abdominal: Soft. Bowel sounds are normal. There is no rebound and no guarding. Mild tenderness in the LLQ without rebound or guarding. Musculoskeletal: Normal range of motion. She exhibits no edema. Neurological: She is alert. Coordination normal. Skin: Skin is warm and dry. No rash noted. Psychiatric: She has a normal mood and affect. Emergency Department Course Imaging: CT abdomen pelvis w/ contrast: No acute process demonstrated within the abdomen and pelvis Laboratory: CBC: WBC 11.0 (WNL) HGB 11.5 (L) PLT 323 (WNL) RBC 3.70 (L) HCT 34.3 (L) Immature granulocytes 0.5 (H) CMP: Cr 0.61 (WNL) Rest WNL Stool culture: pending Stool C diff toxin B PCR: Pending UA: Clear, light yellow urine; Ketones (present) Specific gravity 1.050 (H) Leukocyte esterase (parent) Mucous (present) HCG qualitative urine: Negative Interventions: Morphine, 4 mg, IV NS, 1 L, IV Iohexol, 25 ml, PO x 2 Iopamidol, 100 ml, IV ED Course: The patient was roomed. 4:32 PM The patient's medical charts were reviewed and I examined the patient. I discussed the plan of care with the patient which included imaging studies, and laboratory work. IV was inserted and blood was drawn. 6:30 PM Discussed the case with GI Dr. Casper. Recheck. The patient is resting comfortably and is in no pain or distress after the above interventions. I discussed with the patient the results of the above procedures and she will be discharged to home. All questions were answered prior to discharge, and the patient was told to follow up with primary care doctor per discharge instructions. Reasons for return as well as follow up were reviewed withthe patient. She understands and agrees to this plan. Impression & Plan Medical Decision Making: Sasha is a 32 y.o. who has had a total of ten bloody diarrhea episodes in the last twenty four hours, however the last one was approximately six hours prior to her being discharged from the ED. She has no substantial abdominal pain. I do find that her HGB has gone from the 14 range down to 11.5, though this has been over the last year and a half since she has had her last gastric bypass surgery. It would be likely that she would have a bit of anemia due to her recent bypass. Nonetheless, she did have evaluation for hemorrhoids at an outside clinic. She has no pain with this, making hemorrhoids less likely. I did scan her belly because of her gastric bypass which shows no acute pathology. Leading guess is that this is a diverticulosis bleed or less likely a mild proctitis bleed. Stool cultures are pending for shigella and salmonella, though she has no risk factors for any travel related bloody diarrhea. I do want her to be seen by her PMD in 48 hours for recheck of her HGB. She should otherwisereturn to us for worsening pain, intractable bleeding, or other emergent concerns. Diagnosis: 1) Hematochezia I, Alfonzo Swartz, am serving as a scribe on 12/29/2012 at 4:32 PM to personally document services performed by Dr. Carreno based on my observations and the provider's statements to me. Javi Carreno MD 12/31/12 0023 Leonila Madison RN - 12/29/2012 2:43 PM CDT 5 BM's yesterday that was watery red blood and has had 4 more today. She has pain on her left side and was told to come in. documented in this encounter Miscellaneous Notes Initial Assessments - Abstract, Provider - 12/30/2012 6:57 PM CDT documented in this encounter Plan of Treatment Not on filedocumented as of this encounter Procedures Procedure Name Priority Date/Time Associated Comments Diagnosis HCG QUALITATIVE URINE STAT 12/29/2012 5:47 PM Results for this CDT procedure are i n the results section. ROUTINE UA WITH STAT 12/29/2012 5:47 PM Result s for this MICROSCOPIC CDT procedure are i n the results section. CT ABDOMEN PELVIS W STAT 12/29/2012 5:31 PM Re sults for this CONTRAST CDT procedure are i n the results section. CLOSTRIDIUM DIFFICILE STAT 12/29/2012 5:13 PM Results for this TOXIN B CDT procedure are i n the results section. STOOL CULTURE STAT 12/29/2012 5:13 PM Results for this CDT procedure are i n the results section. CBC WITH PLATELETS & STAT 12/29/2012 4:05 PM R esults for this DIFFERENTIAL CDT procedure are i n the results section. COMPREHENSIVE STAT 12/29/2012 4:05 PM Results for this METABOLIC PANEL CDT procedure ar e in the results section. documented in this encounter Results HCG qualitative urine (12/29/2012 5:47 PM CDT) P athologist Signature HCG Qual Urine Negative NEG [facility] Specimen Anatomical Collection Method Collection Time Receive d Time (Source) Location / / Volume Laterality Urine specimen URINE SPECIMEN 12/29/2012 5:47 PM 12/29 6:03 (specimen) OBTAINED BY CLEAN CDT PM CDT CATCH PROCEDURE / Unknown Darryl Larson MD LAB - URINE ORDERABLES Performing Organization Address City/State/ZIP Code Phon e Number M [facility] [address] [place], [place] [address] [facility] (ABNORMAL) Routine UA with microscopic (12/29/2012 5:47 PM CDT) [facility] Method Time Signature Color Urine Light Yellow [facility] Appearance Urine Clear [facility] Glucose Urine Negative NEG mg/dL [facility] Bilirubin Urine Negative NEG [facility] Ketones Urine 10 (A) NEG mg/dL [facility] Specific [place] 1.050 (H) 1.003 - [place] Urine 1.035 [facility] Blood Urine Negative NEG [facility] pH Urine 6.0 5.0 - 7.0 [place] pH [facility] Protein Albumin Negative NEG mg/dL [facility] Urobilinogen Normal 0.0 - 2.0 [place] mg/dL mg/dL [facility] Nitrite Urine Negative NEG [facility] Leukocyte Trace (A) NEG [place] Esterase Urine [facility] Source [facility] WBC Urine 2 0 - 2 [place] /HPF [facility] RBC Urine <1 0 - 2 [place] /[facility] Squamous 1 0 - 1 [place] Epithelial /HPF /HPF [facility] Mucous Urine Present (A) NEG /LPF [facility] Specimen Anatomical Collection Method Collection Time Receive d Time (Source) Location / / Volume Laterality Urine specimen URINE SPECIMEN 12/29/2012 5:47 PM 12/29 6:03 (specimen) OBTAINED BY CLEAN CDT PM CDT CATCH PROCEDURE / Unknown Darryl Larson MD LAB - URINE ORDERABLES Performing Organization Address City/State/ZIP Code Phon e Number M [place] [address] [place], [place] [address] [facility] CT Abdomen Pelvis w Contrast (12/29/2012 5:31 PM CDT) Anatomical Region Laterality Modality Abdomen/Pelvis, SUBRAD CT BODY, UMP CT ABDOMEN PELVIS Computed Tomography Specimen (Source) Anatomical Collection Method Collection Time Re ceived Time Location / / Volume Laterality 12/29/2012 5:31 PM CDT Impressions 12/29/2012 10:21 PM CDT IMPRESSION: No acute process demonstrated within the abdomen and pelvis. LUCIANO ZAMUDIO MD Narrative 12/29/2012 10:[address] ABDOMEN AND PELVIS WITH CONTRAST 12/29 5:31 PM COMPARISON: 02/04/2005 HISTORY: Rectal bleeding and left lower quadrant pain. TECHNIQUE: Volumetric helical acquisitio n of CT images from the lung bases through the symphysis pubis after the administration of 96 mL of Optiray-320 intravenous and oral cont rast. FINDINGS: The liver, bilateral kidneys a nd adrenal glands, pancreas, and spleen demonstrate no worrisome foca l lesion. Gastric bypass changes. Cholecystectomy changes. No hyd ronephrosis. Probable appendectomy changes. No diverticulitis. CT appearance of the colon throughout its course is unremarkable. T here is no free fluid in the abdomen or pelvis. No free air in the ab domen. Bone windows reveal no suspicious lesions. There are no abdomin al or pelvic lymph nodes that are abnormal by size criteria. The visua lized lung bases are unremarkable. There are no dilated loops of small bowel or colon. Procedure Note Luciano Zamudio MD - 12/29/2012Fo rmatting of this note might be different from the original. CT ABDOMEN AND PELVIS WITH CONTRAST 12/29 5:31 PM COMPARISON: 02/04/2005 HISTORY: Rectal bleeding and left lower quadrant pain. TECHNIQUE: Volumetric helical acquisitio n of CT images from the lung bases through the symphysis pubis after the administration of 96 mL of Optiray-320 intravenous and oral cont rast. FINDINGS: The liver, bilateral kidneys a nd adrenal glands, pancreas, and spleen demonstrate no worrisome foca l lesion. Gastric bypass changes. Cholecystectomy changes. No hyd ronephrosis. Probable appendectomy changes. No diverticulitis. CT appearance of the colon throughout its course is unremarkable. T here is no free fluid in the abdomen or pelvis. No free air in the ab domen. Bone windows reveal no suspicious lesions. There are no abdomin al or pelvic lymph nodes that are abnormal by size criteria. The visua lized lung bases are unremarkable. There are no dilated loops of small bowel or colon. IMPRESSION IMPRESSION: No acute process demonstrate d within the abdomen and pelvis. LUCIANO ZAMUDIO MD Javi Carreno MD IMG CT ORDERABLES Stool: C diff toxin B PCR (12/29/2012 5:13 PM CDT) Component Value Ref Test Analysis Performed At [facility] Method Time Signature Specimen Feces [facility] C Diff Toxin B Negative: Clostridium diffic ile target DNA sequences NOT detected, presumed [facility] PCR negative for Clostridium di fficile toxin B or the number of bacteria present MICROBIOLOGY may be below the limit of detection for the test. FDA approved assay performed using [employer] GeneXpert real-t kathie PCR. A negative result does not exclude actual disease due to Clostridium difficile and may be due to improper collection, handling and storage of the specimen or the number of organisms in the specimen is below the detection limit of the assay. Specimen Anatomical Collection Method Collection Time Receive d Time (Source) Location / / Volume Laterality Stool specimen 12/29/2012 5:13 PM 013 6:04 (specimen) CDT PM CDT Javi Carreno MD LAB - MICRO GENERAL ORDERABL ES Performing Organization Address City/[facility] Phon e Number [address] LAB [facility] MICROBIOLOGY Stool: culture SSCE (12/29/2012 5:13 PM CDT) Component Value Ref Test Analysis Performed At [facility] Method Time Signature Specimen Feces [facility] Shiga-Toxins Shiga toxin 1 NOT detected a nd Shiga toxin 2 NOT detected. ? Test results [facility] 1&2 are to be used in conjunction with information available from the patient MICROBIOLOGY clinical evaluation and other diagnostic procedures. Culture Micro No Salmonella, Shigella, Cam pylobacter, E. coli O157, Aeromonas, or Plesiomonas [facility] isolated. MICROBIOLOGY Micro Report FINAL [facility] Status 01/01/2013 MICROBIOLOGY Specimen Anatomical Collection Method Collection Time Receive d Time (Source) Location / / Volume Laterality Stool specimen 12/29/2012 5:13 PM 013 6:04 (specimen) CDT PM CDT Javi Carreno MD LAB - MICRO GENERAL ORDERABL ES Performing Organization Address City/[facility] Phon e Number [address] LAB [facility] MICROBIOLOGY Comprehensive metabolic panel (12/29/2012 4:05 PM CDT) P athologist Signature Sodium 142 133 - 144 [place] mmol/L [facility] Potassium 4.1 3.4 - 5.3 [place] mmol/L [facility] Chloride 105 94 - 109 [place] mmol/L [facility] Carbon Dioxide 24 20 - 32 [place] mmol/L [facility] Anion Gap 12.3 6 - 17 [place] mmol/L [facility] Glucose 80 60 - 99 [place] mg/dL [facility] Urea Nitrogen 15 5 - 24 [place] mg/dL [facility] Creatinine 0.61 0.52 - [facility] 1.04 mg/dL [facility] GFR Estimate >90 >60 [place] mL/min/[address] [place] [address] LAB GFR Estimate If >90 >60 [place] Black mL/min/1.[address] [place] [address] LAB Calcium 9.3 8.5 - 10.4 [place] mg/dL [facility] Bilirubin Total 0.3 0.2 - 1.3 [place] mg/dL [facility] Albumin 4.3 3.9 - 5.1 [place] g/dL [facility] Protein Total 7.0 6.8 - 8.8 [place] g/dL [facility] Alkaline 44 40 - 150 [place] Phosphatase U/L [facility] ALT 23 0 - 50 U/L [facility] AST 22 0 - 45 U/L [facility] Specimen Anatomical Collection Method Collection Time Receive d Time (Source) Location / / Volume Laterality Blood specimen 12/29/2012 4:05 PM 013 4:25 (specimen) CDT PM CDT Darryl Larson MD LAB - BLOOD ORDERABLES Performing Organization Address City/State/ZIP Code Phon e Number [facility] [address] [place], [place] [address] [facility] (ABNORMAL) CBC + differential (12/29/2012 4:05 PM CDT) Patholo gist Method Time Signature WBC 11.0 4.0 - [facility] 11.0 [facility] 10e9/L [facility] RBC Count 3.70 (L) 3.8 - 5.2 [place] 10e12/L [facility] Hemoglobin 11.5 (L) 11.7 - [place] 15.7 g/dL [facility] Hematocrit 34.3 (L) 35.0 - [facility] 47.0 % [facility] MCV 93 78 - 100 [place] fl [facility] MCH 31.1 26.5 - [facility] 33.0 pg [facility] MCHC 33.5 31.5 - [place] 36.5 g/dL [facility] RDW 12.0 10.0 - [place] 15.0 % [facility] Platelet Count 323 150 - 450 [place] [address] [place] [address] LAB Diff Method Automated [facility] LAB % Neutrophils 59.9 40 - 75 % [facility] % Lymphocytes 33.5 20 - 48 % [facility] % Monocytes 5.2 0 - 12 % [facility] % Eosinophils 0.4 0 - 6 % [facility] % Basophils 0.5 0 - 2 % [facility] % Immature 0.5 (H) 0 - 0.4 % [place] Granulocytes [facility] Absolute 6.6 1.6 - 8.3 [place] Neutrophil 10e9/L [facility] Absolute 3.7 0.8 - 5.3 [place] Lymphocytes [address] LAB Absolute 0.6 0.0 - 1.3 [place] Monocytes [address] LAB Absolute 0.0 0.0 - 0.7 [place] Eosinophils [address] LAB Absolute 0.1 0.0 - 0.2 [place] Basophils [address] LAB Abs Immature 0.1 (H) 0 - 0.03 [place] Granulocytes [address] [place] [address] LAB Specimen Anatomical Collection Method Collection Time Receive d Time (Source) Location / / Volume Laterality Blood specimen 12/29/2012 4:05 PM 013 4:25 (specimen) CDT PM CDT Darryl Larson MD LAB - BLOOD ORDERABLES Performing Organization Address City/State/ZIP Code Phon e Number [facility] [address] [place], [place] [address] [facility] documented in this encounter Visit Diagnoses Diagnosis Hematochezia - Primary Blood in stool documented in this encounter Administered Medications Inactive Administered Medications - up to 3 most recent administrations Medication Order MAR Action Action Date Dose Rate Site iohexol (OMNIPAQUE) 140 mg/mL Given 12/29/2012 5:15 PM CDT 25 mL s solution 25 mL 25 mL, Oral, EVERY 30 MIN, First dose on Thu12/29/12 at 1645, For 2 doses Given 12/29/2012 4:45 PM CDT 25 mLs ioversol (OPTIRAY 320) iv solution 68% 1 00 mL Given 12/29/2012 5:29 PM CDT 96 mLs 100 mL, Intravenous, ONCE, On Thu12/29/12 at 1730, For 1 dose morphine (PF) injection 4 mg Given 12/29/2012 6:00 PM CDT 4 mg 4 mg, Intravenous, ONCE, On Thu12/29/12 at 1800, For 1 dose sodium chloride 0.9 % BOLUS 1,000 mL New Bag 12/29/2012 5:30 PM CDT 44 mLs Intravenous, 1,000 mL, ONCE, On Thu12/29/12 at 1730, For 1 dose documented in this encounter Active and Recently Administered Medications Times are shown in CDT. Scheduled Medication Order 12/27/2012 12/28/2012 12/29/2012 iohexol (OMNIPAQUE) 140 mg/mL solution 25 mL (COMPLETED) 1645 (Given - Provider: Sofy Palacio, RN)1715 (Given - Provider: Ariane Pastor, RN) 25 mL, Oral, EVERY 30 MIN, First dose on Thu12/29/12 at 1645, Fo r 2 doses ioversol (OPTIRAY 320) iv solution 68% 100 mL (COMPLETED) 1729 (Given - Provider: Brian Hudson - Comment: 4ml discarded) 100 mL, Intravenous, ONCE, Thu12/29/12 at 1730, For 1 dose morphine (PF) injection 4 mg (COMPLETED) 1800 (Given - Provider: Ariane Pastor, RN) 4 mg, Intravenous, ONCE, Thu12/29/12 at 1800, For 1 dose sodium chloride 0.9 % BOLUS 1,000 mL (COMPLETED) 1729 (Stopped - Provider: Brian Hudson)1730 (New Bag - Provider: Brina Hudson - Comment: bulk) Intravenous, 1,000 mL, ONCE, Thu13 at 1730, For 1 dose documented in this encounter Care Teams 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
--- OUTSIDE RECORDS SUMMARY | 2022-04-10 14:45 | XMS_ITS | Encounter Summary ---
:1980 Author Organization [facility] Address [address] [place] [address]. [place] [address] Care Team Providers Name Role Phone Nemesio Costa MD Primary Care Provider Matheus Feliciano MD Primary Care Provider Car Joel MD Unavailable Reason for Visit Reason Comments Refill Request Encounter Details Date Type Department Care Team Description 05/08/2013 Refill [facility] Weight Montserrat Shepherd Refill Request Management Clinic [place] [facility] [place] [address] [facility] [address] [place] [address] [place] [phone] Social History Tobacco Use Types Packs/Day Years Used Date Former Smoker Cigarettes Smokeless Tobacco: Never Used Comments: as a child Alcohol Use Standard Drinks/Week Comments No 0 (1 standard drink = 0.6 oz pure alcoho l) Sex 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 documented in this encounter Plan of Treatment Not on filedocumented as of this encounter Visit Diagnoses Diagnosis Bariatric surgery status - Primary Other and unspecified postsurgical nonab sorption documented in this encounter Care Teams Broadcast Meteorologist Relationship Specialty Start Date End Date Nemesio Costa MD PCP - General 05/30/11 03/22/20 Matheus Feliciano MD PCP - General 03/23/20 [facility] [address] [facility] [place] [phone] Car Joel MD Assigned Surgical Provider 06/01/20 [address] [place] [id number] documented as of this encounter
--- OUTSIDE RECORDS SUMMARY | 2022-04-10 14:45 | XMS_ITS | Encounter Summary ---
:1980 Author Organization [facility] Address [address] [place] [address]. [place] [address] Care Team Providers Name Role Phone Nemesio Costa MD Primary Care Provider Encounter Details Date Type Department Care Team Description 07/28/[address] [facility] Car Joel B ariatric surgery status; Isra Merritt MD Overweight and obesity(278.0) [address] 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 Ascorbic Acid (VITAMIN C Take by mouth. 0 12/28/2019 PO) Calcium Carbonate-Vitamin TAKE 1 TABLET BY 90 tablet 0 04/1112/28/2019 D (OYSTER SHELL MOUTH 3 TIMES A DAY CALCIUM/D) 500-400 MG-UNIT TABSIndications: Bariatric surgery status, Other and unspecified postsurgical nonabsorption Cholecalciferol (VITAMIN DUE FOR YEARLY 30 capsule 11 013 07/04/2014 D3) 2000 UNITS CHECK UP. TAKE ONE CAPSIndications: CAPSULE BY MOUTH Bariatric surgery status, EVERY DAY Overweight and obesity(278.0) citalopram (CELEXA) 40 MG Take 40 mg by mouth 0 11/17/2019 tablet daily. clindamycin (CLEOCIN T) 1 Apply topically 2 0 11/17/2019 % lotion times daily. Cyanocobalamin (VITAMIN Inject as directed. 0 02/15/2020 B-12 IJ) levothyroxine Take by mouth 0 02/15/20 20 (LEVOTHROID) 75 MCG daily. tablet Multiple Vitamins-Iron Take 2 capsules by 60 tablet 11 07/1302/15/2020 TABSIndications: mouth daily Bariatric surgery status, Overweight and obesity(278.0) Needle, Disp, 25G X 1 1 Device every 30 1 each 201202/15/2020 MISCIndications: days Bariatric surgery status, Overweight and obesity(278.0) nystatin-triamcinolone Apply 0.5 inch in 30 g 3 201211/17/2019 (MYCOLOG II) affected areas 4 creamIndications: times a day Bariatric surgery status, Overweight and obesity(278.0) nystatin-triamcinolone Apply 0.5 inches 0 11/17/2019 (MYCOLOG II) cream topically 4 times daily. syringe, disposable, 1 ML 1 Device every 30 1 each 11/201202/09/2021 MISCIndications: days Bariatric surgery status, Overweight and obesity(278.0) Syringe/Needle, Disp, (BD 0 02/15/2020 LUER-LORIE SYRINGE) traZODone (DESYREL) 100 Take by mouth At 0 11/17/2019 MG tablet Bedtime. verapamil (VERELAN) 120 Take 120 mg by 0 11/17/2019 MG 24 hr capsule mouth daily. ZOLMitriptan (ZOMIG PO) Take 5 mg by mouth 0 04/12/2020 as needed documented as of this encounter Plan of Treatment Not on filedocumented as of this encounter Procedures Procedure Name Priority Date/Time Associated Comments Diagnosis 25 HYDROXYVITAMIN D2 & Routine 07/28/2013 4:00 PM Bariatric oconnell rgery Results for this D3 LABOR RELATIONS CONSULTANT status procedure are in Overweight and the results obesity(278.0) section. CBC WITH PLATELETS & Routine 07/28/2013 4:00 PM Bariatric surg aleks Results for this DIFFERENTIAL LABOR RELATIONS CONSULTANT status procedure are in Overweight and the results obesity(278.0) section. PARATHYROID HORMONE Routine 07/28/2013 4:00 PM Bariatric surge ry Results for this INTACT LABOR RELATIONS CONSULTANT status procedure are in Overweight and the results obesity(278.0) section. IRON AND IRON BINDING Routine 07/28/2013 4:00 PM Bariatric jose jan Results for this CAPACITY LABOR RELATIONS CONSULTANT status procedure are in Overweight and the results obesity(278.0) section. FOLATE Routine 07/28/2013 4:00 PM Bariatric surgery Resu lts for this LABOR RELATIONS CONSULTANT status procedure are in Overweight and the results obesity(278.0) section. FERRITIN Routine 07/28/2013 4:00 PM Bariatric surgery Resu lts for this LABOR RELATIONS CONSULTANT status procedure are in Overweight and the results obesity(278.0) section. VITAMIN B12 Routine 07/28/2013 4:00 PM Bariatric surgery Resu lts for this LABOR RELATIONS CONSULTANT status procedure are in Overweight and the results obesity(278.0) section. documented in this encounter Results Vitamin D - FOLLOW-UP (07/28/2013 4:00 PM LABOR RELATIONS CONSULTANT) Component Value Ref Test Analysis Performed At [facility] Range Method Time Signature 25 [place] Vit D2 <5 ug/L [facility] LAB[facility] 25 [place] Vit D3 42 ug/L [facility] 25 [place] Vit D <47 30 - 75 [facility] total Season, race, dietary intake, and treatm ent affect the concentration of ug/L [facility] 89-vrwypxp-Kzfarni D. Values may decrease during pawel er months and increase CAMPUS LABS during summer months. Values less than 30 ug/L may indicate Vitamin D deficiency. Specimen Anatomical Collection Method Collection Time Receive d Time (Source) Location / / Volume Laterality Blood specimen 07/28/2013 4:00 PM 013 4:01 (specimen) LABOR RELATIONS CONSULTANT PM LABOR RELATIONS CONSULTANT Car Joel MD LAB - BLOOD ORDERABLES Performing Organization Address City/[facility]/ZIP Code Phon e Number [address] LABS Folate (07/28/2013 4:00 PM LABOR RELATIONS CONSULTANT) P athologist Signature Folate 11.3 3.00 - [facility] 17.00 ng/mL CAMPUS LABS Specimen Anatomical Collection Method Collection Time Receive d Time (Source) Location / / Volume Laterality Blood specimen 07/28/2013 4:00 PM 013 4:01 (specimen) LABOR RELATIONS CONSULTANT PM LABOR RELATIONS CONSULTANT Car oJel MD LAB - BLOOD ORDERABLES Performing Organization Address City/State/ZIP Code Phon e Number [phone] [place] [address] LABS CBC with platelets differential (07/28/2013 4:00 PM LABOR RELATIONS CONSULTANT) Patholo gist Method Time Signature WBC 9.3 4.0 - [facility] 11.0 [facility] 10e9/L [facility] LAB RBC Count 4.53 3.8 - 5.2 [place] 10e12/L [facility] LAB Hemoglobin 14.3 11.7 - [facility] 15.7 g/dL [facility] LAB Hematocrit 42.1 35.0 - [facility] 47.0 % [facility] LAB MCV 93 78 - 100 [facility] LAB MCH 31.6 26.5 - [facility] 33.0 pg [facility] LAB MCHC 34.0 31.5 - [facility] 36.5 g/dL [facility] LAB RDW 12.4 10.0 - [facility] 15.0 % [facility] LAB Platelet Count 285 150 - 450 [place] 10e9/L [facility] Diff Method Automated [place] Method [facility] LAB % Neutrophils 62.2 % [facility] LAB % Lymphocytes 30.1 % [facility] LAB % Monocytes 6.5 % [facility] LAB % Eosinophils 0.6 % [facility] LAB % Basophils 0.4 % [facility] LAB % Immature 0.2 % [place] Granulocytes [facility] LAB Absolute 5.8 1.6 - 8.3 [place] Neutrophil 10e9/L [facility] LAB Absolute 2.8 0.8 - 5.3 [place] Lymphocytes 10e9/L [facility] LAB Absolute 0.6 0.0 - 1.3 [place] Monocytes 10e9/L [facility] LAB Absolute 0.1 0.0 - 0.7 [place] Eosinophils 10e9/L [facility] LAB Absolute 0.0 0.0 - 0.2 [place] Basophils 10e9/L [facility] LAB Abs Immature 0.0 0 - 0.[address] [place] Gran[address] [place] [address] LAB Specimen Anatomical Collection Method Collection Time Receive d Time (Source) Location / / Volume Laterality Blood specimen 07/28/2013 4:00 PM 013 4:01 (specimen) LABOR RELATIONS CONSULTANT PM LABOR RELATIONS CONSULTANT Car Joel MD LAB - BLOOD ORDERABLES Performing Organization Address City/[facility] Phon e Number [facility] [address] [address] [facility] LAB FERRITIN (07/28/2013 4:00 PM LABOR RELATIONS CONSULTANT) athologist Signature Ferritin 20 10 - 120 [facility] ng/mL [facility] LAB Specimen Anatomical Collection Method Collection Time Receive d Time (Source) Location / / Volume Laterality Blood specimen 07/28/2013 4:00 PM 013 4:01 (specimen) LABOR RELATIONS CONSULTANT PM LABOR RELATIONS CONSULTANT Car Joel MD LAB - BLOOD ORDERABLES Performing Organization Address City/[facility] Phon e Number [facility] [address] [address] [facility] LAB IRON AND IRON BINDING CAPACITY (07/28/2013 4:00 PM LABOR RELATIONS CONSULTANT) athologist Signature Iron 99 35 - 180 [place] ug/dL [facility] LAB Iron Binding 384 240 - 430 [place] Cap ug/dL [facility] LAB Iron Saturation 26 15 - 46 % [facility] LAB Specimen Anatomical Collection Method Collection Time Receive d Time (Source) Location / / Volume Laterality Blood specimen 07/28/2013 4:00 PM 013 4:01 (specimen) LABOR RELATIONS CONSULTANT PM LABOR RELATIONS CONSULTANT Authorizing Provider Result Елена Joel MD LAB - BLOOD ORDERABLES Performing Organization Address City/State/ZIP Code Phon e Number [facility] [address] [place], [place] [address] [facility] LAB PTH (Parathyroid Hormone) (07/28/2013 4:00 PM LABOR RELATIONS CONSULTANT) P athologist Signature Parathyroid 46 12 - 72 [facility] Hormone Intact pg/mL [facility] LABS Specimen Anatomical Collection Method Collection Time Receive d Time (Source) Location / / Volume Laterality Blood specimen 07/28/2013 4:00 PM 013 4:01 (specimen) LABOR RELATIONS CONSULTANT PM LABOR RELATIONS CONSULTANT Car Joel MD LAB - BLOOD ORDERABLES Performing Organization Address City/[facility]/ZIP Code Phon e Number [facility] [address] LABS Vitamin B12 (07/28/2013 4:00 PM LABOR RELATIONS CONSULTANT) P athologist Signature Vitamin B12 507 >210 pg/mL [facility] LABS Comment: Interp: [phone] = Normal Specimen Anatomical Collection Method Collection Time Receive d Time (Source) Location / / Volume Laterality Blood specimen 07/28/2013 4:00 PM 013 4:01 (specimen) LABOR RELATIONS CONSULTANT PM LABOR RELATIONS CONSULTANT Authorizing Provider Result Елена Joel MD LAB - BLOOD ORDERABLES Performing Organization Address City/State/ZIP Code Phon e Number [facility] [address] LABS documented in this encounter Visit Diagnoses Diagnosis Bariatric surgery status Overweight and obesity(278.0) documented in this encounter Care Teams Inbound Ingredient Logistics Specialist Relationship Specialty Start Date End Date Nemesio Costa MD PCP - General 05/30/11 03/22/20 documented as of this encounter
--- OUTSIDE RECORDS SUMMARY | 2022-04-10 14:46 | XMS_ITS | Encounter Summary ---
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 HEMOGLOBIN STAT 01/04/2008 6:20 AM Results f or this CDT procedure are i n the results section. ABO/RH TYPE AND SCREEN STAT 01/04/2008 6:20 AM Results for this CDT procedure are i n the results section. documented in this encounter Results Histopathology (01/04/2008 8:43 AM CDT) Component Value Ref Test Analysis Performed At [facility] Range Method Time Signature Copath Report CASE: [id number] ^ COPATH Patient Name: MUKUL REID MR#: [id number] Specimen #: [id number] Collected: 01/04/2008 Received: 01/04/2008 Reported: 01/05/2008 15:44 Ordering Phy(s): YAKOV CALLE SPECIMEN(S): A: Fallopian tube, right B: Fallopian tube, left FINAL DIAGNOSIS: A and B. ??Right and left fallopian tubes, segmental resecti ons - Segments of fallopian tubes (2). Electronically signed out by: Douglas Bailon M.D. CLINICAL HISTORY: Repeat section at 39 weeks, desires tubal ligation. GROSS: A. ??The specimen is labeled right fallopian tube segment. ??The specimen consists of a pink segment of fallopian tube (1.0 x 0.6 x 0.6 cm). ??The specimen is entirely submitted. B. ??The specimen is labeled left fallopian tube segment. ??The specimen consists of a pink-red segment of fallopian tube (0.8 x 0.6 x 0.5 cm). The specimen is entirely submitted. ??SI ??TRS/meagan MICROSCOPIC: A and B. ??A formal microscopic examination is performed. DGB/meagan 01/05/2008 TESTING LAB LOCATION: [address] ??[id number] COLLECTION SITE: Client: [facility] Location: OB (S) Specimen Anatomical Collection Method Collection Time Receive d Time (Source) Location / / Volume Laterality 01/04/2008 8:43 AM 8 3:45 CDT PM CDT Yakov Calle MD LAB - COPATH SPECIAL DIAG OR DERABLES Performing Organization Address [facility] Phon e Number COP[facility] Hemoglobin (01/04/2008 6:20 AM CDT) P athologist Signature Hemoglobin 13.0 11.7 - 15.7 [facility] g/dL Specimen Anatomical Collection Method Collection Time Receive d Time (Source) Location / / Volume Laterality 01/04/2008 6:20 AM 8 6:08 CDT AM CDT Yakov Calle MD LAB - BLOOD ORDERABLES Performing Organization Address [facility] Phon e Number [facility] ABO/Rh type and screen (01/04/2008 6:20 AM CDT) Patholo gist Method Time Signature ABO O [facility] RH(D) Pos [facility] Antibody Pos [facility] Screen Blood Bank Antibody screen [facility] Comment inconclusive, repeat using alternative method negative. No Comment: clinically significant antibod ies detected. Specimen Expires 01/07/2008 [facility] Specimen Anatomical Collection Method Collection Time Receive d Time (Source) Location / / Volume Laterality 01/04/2008 6:20 AM 8 6:08 CDT AM CDT Yakov Calle MD LAB - BLOOD BANK TEST ORDER Performing Organization Address City/State/ZIP Code Phon e Number [facility] documented in this encounter Visit Diagnoses Not on filedocumented in this encounter
--- OUTSIDE RECORDS SUMMARY | 2022-04-10 14:46 | XMS_ITS | Encounter Summary ---
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 NEISSERIA GONORRHOEAE Routine 09/07/2009 9:31 PM Results for this PCR PLASTIC SEWER procedure are i n the results section. CHLAMYDIA TRACHOMATIS Routine 09/07/2009 9:31 PM Results for this PCR PLASTIC SEWER procedure are i n the results section. HEMOGLOBIN STAT 09/07/2009 8:55 PM Results f or this PLASTIC SEWER procedure are i n the results section. HCG QUALITATIVE URINE STAT 09/07/2009 7:40 PM Results for this PLASTIC SEWER procedure are i n the results section. ROUTINE UA WITH STAT 09/07/2009 7:40 PM Result s for this MICROSCOPIC PLASTIC SEWER procedure are i n the results section. documented in this encounter Results Wet prep (09/07/2009 9:31 PM PLASTIC SEWER) [facility] Method Time Signature Specimen Vagina [facility] Description Micro Report FINAL [facility] Status 09/07/2009 Wet Prep No Trichomonas [facility] seen Comment: No clue cells seen No yeast seen Specimen Anatomical Collection Method Collection Time Receive d Time (Source) Location / / Volume Laterality 09/07/2009 9:31 PM 0 PLASTIC SEWER 10:00 PM PLASTIC SEWER Physician No Ref-Primary LAB - MICRO GENERAL ORDERABL ES Performing Organization Address [facility] Phon e Number [facility] Chlamydia trachomatis PCR (09/07/2009 9:31 PM PLASTIC SEWER) Component Value Ref Test Analysis Performed At [facility] Range Method Time Signature Specimen Cervical MISYS Description Chlamydia Negative for C. [facility]IS[facility] Trachomatis PCR trachomatis rRNA by mix mill tender mediated amplification. Comment: A negative result by mix mill tender medi ated amplification does not preclude the presence of C. trachomatis infection be cause results are dependent on proper and adequate collection, absence of inh ibitors, and sufficient rRNA to be detected. Specimen Anatomical Collection Method Collection Time Receive d Time (Source) Location / / Volume Laterality 09/07/2009 9:31 PM 0 PLASTIC SEWER 10:00 PM PLASTIC SEWER Physician No Ref-Primary LAB - MICRO GENERAL ORDERABL ES Performing Organization Address [facility] Phon e Number [facility] Neisseria gonorrhoeae PCR (09/07/2009 9:31 PM PLASTIC SEWER) [facility] Method Time Signature Specimen Cervical MISYS Descrip N Gonorrhea Negative for N. MIS[facility] PCR gonorrhoeae rRNA by mix mill tender mediated amplification. Comment: A negative result by mix mill tender medi ated amplification does not preclude the presence of N. gonorrhoeae infection be cause results are dependent on proper and adequate collection, absence of inh ibitors, and sufficient rRNA to be detected. Specimen Anatomical Collection Method Collection Time Receive d Time (Source) Location / / Volume Laterality 09/07/2009 9:31 PM 0 PLASTIC SEWER 10:00 PM PLASTIC SEWER Physician No Ref-Primary LAB - MICRO GENERAL ORDERABL ES Performing Organization Address [facility] Phon e Number [facility] Hemoglobin (09/07/2009 8:55 PM PLASTIC SEWER) athologist Signature Hemoglobin 14.2 11.7 - 15.7 [facility] g/dL Specimen Anatomical Collection Method Collection Time Receive d Time (Source) Location / / Volume Laterality 09/07/2009 8:55 PM 0 8:21 PLASTIC SEWER PM PLASTIC SEWER Cedric Perez MD LAB - BLOOD ORDERABLES Performing Organization Address [facility] Phon e Number [facility] (ABNORMAL) Routine UA with microscopic (09/07/2009 7:40 PM PLASTIC SEWER) Patholo gist Method Time Signature Source Midstream [facility] Urine Color Urine Yellow [facility] Appearance Urine Clear [facility] Glucose Urine Negative NEG mg/dL [facility] Bilirubin Urine Negative NEG [facility] Ketones Urine Negative NEG mg/dL [facility] Specific [place] 1.022 1.003 - M[facility] Urine 1.035 Blood Urine Moderate (A) NEG [facility] pH Urine 5.5 5.0 - 7.0 [facility] pH Protein Albumin 10 (A) NEG mg/dL [facility] Urine Urobilinogen Normal 0.0 - 2.0 [facility] mg/dL mg/dL Nitrite Urine Negative NEG [facility] Leukocyte Negative NEG [facility] Esterase Urine WBC Urine 0 0 - 2 [facility] /HPF RBC Urine 4 (H) 0 - 2 [facility] /HPF Squamous 2 (H) 0 - 1 [facility] Epithelial /HPF /HPF Urine Mucous Urine Present (A) NEG /LPF [facility] Specimen Anatomical Collection Method Collection Time Receive d Time (Source) Location / / Volume Laterality 09/07/2009 7:40 PM 0 7:51 PLASTIC SEWER PM PLASTIC SEWER Cedric Perez MD LAB - URINE ORDERABLES Performing Organization Address City/State/ZIP Code Phon e Number [facility] HCG qualitative urine (09/07/2009 7:40 PM PLASTIC SEWER) athologist Signature HCG Qual Urine Negative NEG [facility] Comment: This test provides a presumptive diagno sis of or non-. A confirmed diagnosis should on ly be made by a physician after all clinical and laboratory findings have b een evaluated. Specimen Anatomical Collection Method Collection Time Receive d Time (Source) Location / / Volume Laterality 09/07/2009 7:40 PM 0 7:51 PLASTIC SEWER PM PLASTIC SEWER Cedric Perez MD LAB - URINE ORDERABLES Performing Organization Address City/State/ZIP Code Phon e Number [facility] documented in this encounter Visit Diagnoses Not on filedocumented in this encounter
--- OUTSIDE RECORDS SUMMARY | 2022-04-10 14:46 | XMS_ITS | Encounter Summary ---
:1980 Author Organization [facility] Address [address] [place] [address]. 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 TSH Routine 06/06/2010 3:46 PM Results f or this CDT procedure are i n the results section. INR Routine 06/06/2010 3:46 PM Results f or this CDT procedure are i n the results section. HEMOGLOBIN A1C Routine 06/06/2010 3:46 PM Results for this CDT procedure are i n the results section. COMPREHENSIVE Routine 06/06/2010 3:46 PM Results for this METABOLIC PANEL CDT procedure ar e in the results section. documented in this encounter Results CBC with platelets differential (06/06/2010 3:46 PM CDT) [facility] Method Time Signature MCV 87 78 - 100 [facility] fl MCH 28.8 26.5 - MIS[facility] 33.0 pg MCHC 33.0 31.5 - MISYS 36.5 g/dL RDW 13.6 10.0 - M[facility] 15.0 % WBC 10.8 4.0 - MISYS 11.0 10e9/L RBC Count 4.82 3.8 - 5.2 MISYS 10e12/L Hemoglobin 13.9 11.7 - MISYS 15.7 g/dL Hematocrit 42.0 35.0 - MISYS 47.0 % % Neutrophils 63 40 - 75 % MISYS % Lymphocytes 27 20 - 48 % MISYS % Monocytes 8 0 - 12 % MISYS % Eosinophils 1 0 - 6 % MISYS % Basophils 1 0 - 2 % [facility] Platelet Count 338 150 - 450 [facility] 10e9/L Absolute 6.7 1.6 - 8.3 [facility] Neutrophil 10e9/L Absolute 2.9 0.8 - 5.3 [facility] Lymphocytes 10e9/L Absolute 0.9 0.0 - 1.3 [facility] Monocytes 10e9/L Absolute 0.1 0.0 - 0.7 [facility] Eosinophils 10e9/L Absolute 0.1 0.0 - 0.2 [facility] Basophils 10e9/L Diff Method Automated [facility] Method Specimen Anatomical Collection Method Collection Time Receive d Time (Source) Location / / Volume Laterality 06/06/2010 3:46 PM 0 3:52 CDT PM CDT Rebecca Conteh MD LAB - BLOOD ORDERABLES Performing Organization Address City/State/ZIP Code Phon e Number [facility] Comprehensive metabolic panel (06/06/2010 3:46 PM CDT) P athologist Signature Sodium 140 133 - 144 [facility] mmol/L Potassium 4.1 3.4 - 5.3 [facility] mmol/L Chloride 104 94 - 109 [facility] mmol/L Carbon Dioxide 28 20 - 32 [facility] mmol/L Glucose 92 60 - 99 [facility] mg/dL Urea Nitrogen 9 5 - 24 [facility] mg/dL Creatinine 0.73 0.52 - 1.04 [facility] mg/dL Comment: New IDMS-traceable calibration beginning 12/09/07 GFR Estimate >90 >60 mL/min/1.7m2 [facility] GFR Estimate If Black >90 >60 mL/min/1.7m2 [facility] Calcium 9.4 8.5 - 10.4 mg/dL [facility] AST 22 0 - 45 U/L [facility] Protein Total 7.5 6.8 - 8.8 g/dL [facility] Anion Gap 9 6 - 17 mmol/L [facility] Albumin 4.1 3.9 - 5.1 g/dL [facility] ALT 15 0 - 50 U/L [facility] Alkaline Phosphatase 80 40 - 150 U/L [facility] Bilirubin Total 0.4 0.2 - 1.3 mg/dL [facility] Specimen Anatomical Collection Method Collection Time Receive d Time (Source) Location / / Volume Laterality 06/06/2010 3:46 PM 0 3:52 CDT PM CDT Rebecca Conteh MD LAB - BLOOD ORDERABLES Performing Organization Address City/[facility] Phon e Number MISYS Hemoglobin A1c (06/06/2010 3:46 PM CDT) P athologist Signature Hemoglobin A1C 6.0 4.3 - 6.0 % [facility] Specimen Anatomical Collection Method Collection Time Receive d Time (Source) Location / / Volume Laterality 06/06/2010 3:46 PM 0 3:52 CDT PM CDT Rebecca Conteh MD LAB - BLOOD ORDERABLES Performing Organization Address City/[facility] Phon e Number MISYS INR (06/06/2010 3:46 PM CDT) athologist Signature INR 0.99 0.86 - 1.14 [facility] Specimen Anatomical Collection Method Collection Time Receive d Time (Source) Location / / Volume Laterality 06/06/2010 3:46 PM 0 3:52 CDT PM CDT Rebecca Conteh MD LAB - BLOOD ORDERABLES Performing Organization Address City/[facility] Code Phon e Number MISYS TSH (06/06/2010 3:46 PM CDT) P athologist Signature TSH 1.85 0.4 - 5.0 [facility] mU/L Specimen Anatomical Collection Method Collection Time Receive d Time (Source) Location / / Volume Laterality 06/06/2010 3:46 PM 0 3:52 CDT PM CDT Rebecca Conteh MD LAB - BLOOD ORDERABLES Performing Organization Address City/[facility]/ZIP Code Phon e Number MISYS documented in this encounter Visit Diagnoses Not on filedocumented in this encounter
--- OUTSIDE RECORDS SUMMARY | 2022-04-10 14:46 | XMS_ITS | Encounter Summary ---
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 documented in this encounter Results (ABNORMAL) Hemoglobin (11/17/2006 8:23 AM CDT) P athologist Signature Hemoglobin 10.7 (L) 11.7 - 15.7 [facility] g/dL Specimen (Source) Anatomical Collection Method Collection Time Re ceived Time Location / / Volume Laterality 11/17/2006 8:23 AM 7 CDT Yakov Mcgarry MD LAB - BLOOD ORDERABLES Performing Organization Address City/State/ZIP Code Phon e Number MISYS documented in this encounter Visit Diagnoses Not on filedocumented in this encounter
--- OUTSIDE RECORDS SUMMARY | 2022-04-10 14:46 | XMS_ITS | Encounter Summary ---
:1980 Author Organization [place] Address [address] [place] [address]. 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 DISCHARGE DIAGNOSIS: A 39 week intrauterine , previous section, desire for sterility along with delivered. SIGNIFICANT PROCEDURE PERFORMED: Repeat section along with bilateral tubal ligation performed by my associate, Dr. Yakov Mcgarry. [facility] STAY FOLLOW: Mukul Reid is a 27-year-old para 1 who presented to Labor and Delivery on 01/04/2008 at 39 weeks gestation for delivery via repeat section. The patient hada previous section at term because of malpresentation. She also desired sterility. She was aware of the nature of the tubal ligation including its permanence, less than half percent failure rate, increased risk for ectopic occurring in the future. On 01/04/2008 Dr. Mcgarry, my associate, performed repeat section. At that time an 8 pound 10 ounce with Apgars of 8 and 9 at one and five minutes, respectively was delivered. Tubal ligation was performed as well. The surgery was without event. Her postop hemoglobin was stable at 11. She is Rh positive, Rubella immune. She had good return of bowel function and was discharged home on postop #3 with an intact incision and prescription for 25 Darvon. Instructed to follow up in the office in approximately six weeks' time. Electronically signed on 01/17/2008 00:58 by DOUGLAS DE PAZ MD MT: [email or web address] Name: MUKUL REID Account: [id number] : 1980 Admit Date: Discharge Date: 01/07/2008 Document: [id number] documented in this encounter Plan of Treatment Not on filedocumented as of this encounter Visit Diagnoses Not on filedocumented in this encounter
--- OUTSIDE RECORDS SUMMARY | 2022-04-10 14:46 | XMS_ITS | Encounter Summary ---
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 26-year-old 1 para 0 at 38 weeks 4 days gestation. 2. Breech presentation. POSTOPERATIVE DIAGNOSIS: 1. 26-year-old 1 para 0 at 38 weeks 4 days gestation. 2. Breech presentation. PROCEDURE: Primary low transverse section via Pfannenstiel skin incision. ANESTHESIA: Spinal. ESTIMATED BLOOD LOSS: 800 cc. OBSERVATIONS: Single viable female infant in delmi breech presentation. Clear amniotic fluid. Apgars 2 and 8 at 1 and 5 minutes respectively. Weight 7 pounds 6 ounces. Normal appearing uterus, tubes and ovaries. COMPLICATIONS: None. DISPOSITION: The patient was stable to the Recovery Room. INDICATIONS: Mukul Reid is a 26-year-old, 1 para 0, presently at 38 weeks 4 days gestation. Estimated gestational age by 12 week ultrasound with estimated date of confinement 4/19/07. The patient has had a known breech presentation over the last few months of the . External cephalic version was discussed with the patient at length. She has declined this. Multiple ultrasounds thereafter confirmed persistence of breech presentation. It was discussed with the patient proceeding to the OR for primary section. She understands the risks, benefits and alternatives and elects to proceed. PROCEDURE: The patient was taken to the OR where spinal anesthesia was found to be adequate. The patient was prepped and draped in normal sterile fashion, dorsal supine position with leftwards tilt. Using a scalpel, a Pfannenstiel skin incision was made. This incision was carried down to the underlying layer of fascia. The fascia was then nicked in the midline and this incision was extended laterally with the Mcintosh scissors. The superior aspect of the fascial incision was then grasped with two Yeny clamps, elevated, and rectus muscles dissected off bluntly as well as sharply with cautery. In a similar fashion, the inferior aspect of the fascial incision was grasped with two Yeny clamps, elevated and rectus muscles dissected off bluntly as well as sharply with cautery. The rectus muscles were then in the midline and the peritoneum identified and entered with a hemostat. This openingwas then extended superiorly and inferiorly with excellent visualization of the bladder. The bladderblade was then placed. Using pick ups and Metzenbaum scissors, the vesicouterine peritoneum was entered and this incision was extended laterally and bladder flap created digitally. The bladder blade was then repositioned. Using a scalpel, a low transverse uterine incision was made. This incision was extended laterally with the bandage scissors. Clear amniotic fluid was noted. The 's legs were delivered atraumatically followed by the body, arms and head. Nose and mouth were bulb suctioned. The cord was clamped and cut. The infant was handed off to the waiting nurses. The placenta was then removed manually and the uterus exteriorized and cleared of all clots and debris. The uterine incision was closed with 1-0 chromic gut in a running locked fashion. A second layer closure was also performed. A few points of oozing were noted. These were controlled with multiple and interrupted sutures of 1-0 chromic. Thereafter, excellent hemostasis was noted. The bladder flap was closed with 3-0 chromic in a running fashion. The uterus was then returned to the abdomen. The gutters were irrigated and cleared of all clots and debris. The uterine incision was again re-examined. Excellent hemostasis was noted. The peritoneum was grasped with three Mukul clamps and closed with 2-0 Vicryl in a running fashion.The subfascial layers and rectus muscles were then examined. Excellent hemostasis was noted. The rectus muscles were reapproximated in the midline with two interrupted sutures of 1-0 chromic. Thereafter, the fascia was tagged in the midline with single interrupted stitch of 0 Vicryl. Thereafter, the fascia was closed from one apex in the midline and the other apex in the midline with a running stitchof 0 Vicryl. The subq was irrigated. Excellent hemostasis was noted. The subq was reapproximated with multiple interrupted sutures of 3-0 plain gut. The skin was closed with jason. The patient tolerated the procedure well. Sponge, lap and needle counts were reported to me as correct times two. The patient received a gram of Ancef after the cord clamp for antibiotic prophylaxis. The patient was taken to the Recovery Room in stable condition. Electronically signed on 11/16/2006 17:46 by YAKOV CALLE MD MT: [email or web address] Name: MUKUL REID Account: [id number] : 1980 Procedure Date: 11/16/2006 Document: [id number] documented in this encounter Plan of Treatment Not on filedocumented as of this encounter Visit Diagnoses Not on filedocumented in this encounter
--- OUTSIDE RECORDS SUMMARY | 2022-04-10 14:46 | XMS_ITS | Encounter Summary ---
:1980 Author Organization [facility] Address [address] [place] [address]. 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 HISTORY OF PRESENT ILLNESS: Mukul Reid is a 29-year-old female who is here for weight loss surgery evaluation. She is accompanied today by her , Amador Reid. I did have the patient sign a release of information that it was okay to discuss the details of her health history with her ,Amador. She did sign this and this was placed in the chart. The patient's 2-year-old daughter also accompanies her. The patient states that her COST CONTROLLER physician is Yakov Mcgarry at [facility]. The patient requests a copy of this note go to this provider. The patient is working on establishing a primary care provider in family practice or internal medicine and will update us when she has made her choice of physicians. Her and her believe they will be going to [facility] in [place]. The patient reports problems with her weight since the age of [age] years old and has been morbidly obese for the last 16 years. She has tried regular exercise programs in an effort to lose weight. She was able to lose 20 pounds earlier in 2009, but unfortunately regained all of this weight after this discontinued exercise. More recently she has been exercising 4 times a week for 2 hours at atime and has been doing this consistently for the last 2- 3 months. She has lost 13 pounds since approximately 3 months ago. She is seeking Cora-en-Y surgery in order to improve her health. The patient complains that her activities have been adversely affected by her obesity and she complains of weightbearing joint pain of her knees bilaterally as well as low back pain related to her weight. OBESITY-RELATED COMORBIDITIES: 1. Borderline hypertension, new. 2. Snoring. Also reports excessive daytime somnolence and morning headaches occurring on a regular basis. Has never had a sleep study. 3. Acid reflux disease, previously on Prilosec, not currently taking any medications for this. 4. Weightbearing joint pain of her knees. 5. Low back pain. 6. Stress incontinence. 7. Dependent edema. PAST SURGICAL HISTORY: 1. Status post laparoscopic appendectomy and cholecystectomy in 2004. 2. Tubal ligation. 3. , 2006 and 2007. 4. Tonsillectomy. 5. Denies any history of anesthesia reactions. OTHER PAST MEDICAL HISTORY: Hypothyroidism. ALLERGIES AND MEDICATION INTOLERANCES: Codeine and Keflex, reactions not listed. MEDICATIONS: Levothyroxine 75 mcg p.o. daily. Merina IUD. SOCIAL HISTORY: The patient is . She is a btrb-yq-vudv mother of 2 daughters, ages 2 and 3. She does not smoke, quit in 1997. She drinks only rare alcoholic beverage, such as 1 drink every 3 months or so. Denies any history of chemical dependency or chemical dependency treatment. FAMILY HISTORY: Father is living at age 50, is overweight and has hypertension. Mother is living atage 57, is overweight and has history of gallstones. The patient has 2 siblings. Her brother is age 31 and is underweight. Her sister is 34 and is overweight but otherwise healthy. The patient denies family history of blood clots or bleeding disorders. Her maternal grandfather of an MO at age 40.Both paternal grandparents had MIs but they were over the age of 65. The remainder of the family history is noncontributory. REVIEW OF SYSTEMS: GENERAL: Patient reports normal functional status. METABOLIC AND ENDOCRINE: History of hypothyroidism. No history of type 2 diabetes or glucose intolerance. CARDIOVASCULAR: History of borderline hypertension, being followed through primary care clinic. No history of dyslipidemia, congestive heart failure, coronary artery disease or pulmonary hypertension. No history of peripheral vascular disease, angina or chest pain. PULMONARY: No history of asthma or emphysema. She does snore and reports excessive daytime somnolence despite 8-9 hours of sleep per night. She awakens with morning headaches on a regular basis. She has never had a sleep study. No previous history of obesity, hypoventilation syndrome. No history of pulmonary embolism or previously diagnosed obstructive sleep apnea. She does report some dyspnea on exertion after 1 flight of stairs,but states this has been stable for a period of over 1 year. She attributes dyspnea on exertion to her weight. There has been no recent exacerbation of dyspnea on exertion. There is no shortness of breath at rest. GASTROINTESTINAL: History of gastric reflux disease occurring approximately 2-3 times per month. Symptoms are relieved with milk. She was previously on Prilosec with pregnancies. Denies dysphagia. Status post laparoscopic cholecystectomy. No history of liver disease, abdominal hernias or ongoing abdominal pain. No complaints of abdominal skin irritation. Abdominal surgeries are listed under surgical history. No history of peptic ulcer disease or colitis. VASCULAR: Denies history of lowerextremity edema, DVTs, or problematic varicose veins. No signs or symptoms of claudication. MUSCULOSK ELETAL: Complains of weight-bearing joint pain of her knees bilaterally with walking as well as low back pain. No known DJD or significant limitation of mobility. No history of fibromyalgia or other musculoskeletal disease. No history of gout or TMJ. PSYCHIATRIC: No history of depression, anxiety disorder. Denies any mental health conditions or psychosocial impairment. No history of eating disorders.No history of binge eating or emotional eating. GENITOURINARY: History of stress incontinence. No history of nephrolithiasis or PCOS. She currently has Merina IUD in place. Prior to Merina IUD placement several months ago, her menstrual cycles were irregular and quite heavy. Some facial hair. No acne.NEUROLOGIC: Denies history of stroke or TIA. No history of pseudotumor cerebri. She does have some recurrent morning headaches. HEMATOLOGIC: No history of anemia or malignancy. The remainder of the complete review of systems is entirely negative except as noted in the ObesityRelated Comorbidities and other PMH. PHYSICAL EXAMINATION: VITAL SIGNS: Height is 5 feet 4 inches, weight 307.6. BMI is 52.8. Heart rate 72. Respiratory rate 20. Temperature 98.9. Blood pressure 116/70. GENERAL: This is a 29-year-old woman in no acute distress. HEENT: The patient is wearing glasses. Oropharynx shows multiple molars missing bilaterally, lower jaw. Has upper denture in place. Oropharynx was clear, without erythema, exudate or swelling. Conjunctivae are noninjected. There is no icterus noted. NECK: Without lymphadenopathy, thyromegaly or mass.Trachea is midline. CARDIOVASCULAR: Regular rate and rhythm, no murmurs, gallops or rubs. LUNGS: Clear to auscultation bilaterally. Respiratory effort is normal. ABDOMEN: Abdomen is rounded consistent with obesity. Soft positive bowel sounds. No organomegaly. No masses. Nontender. No bruits. Positive bowel sounds. Laparoscopic incision is well-healed. LOWER EXTREMITIES: No edema is noted. No changes of chronic venous stasis or skin ulcerations seen. No significant varicose veins are seen. SKIN: Within normal limits. NEUROLOGIC: Cranial nerves II through XII are intact. Moves all 4 extremities equal and strong. Gait is normal. MENTAL STATUS: Awake, alert and oriented to person, place, time and event. Mood and affect appear appropriate. ASSESSMENT AND PLAN: 1. Morbid obesity. BMI 52.8. The patient expressed interest in Cora-en-Y procedure. She and her were advised of the requirements for this program including the need for bariatric psychologicalevaluation as well as laboratory testing. The patient has already set up an appointment with Dr. Jesus Humphrey in [place] for her psychological evaluation. She was also advised that she will need to lose a total of 15 pounds prior to surgery. Rationale for this was discussed. Therefore, her weight prior to surgery will need to be at or below 292.6 pounds. 2. Signs and symptoms of obstructive sleep apnea. The patient will be required to have an overnight sleep study prior to surgery due to her signs and symptoms of obstructive sleep apnea. 3. Low back pain, caused or exacerbated by morbid obesity. 4. Weightbearing joint pain, caused or exacerbated by morbid obesity. 5. Dependent edema. 6. Stress incontinence. 7. Possible PCOS. We will check blood glucose and hemoglobin A1c. 8. Acid reflux disease. The patient was warned against choosing laparoscopic banding procedure as this may worsen heartburn. Advised that if her heartburn continues regularly, she should likely discuss treatment of this further with primary care physician. Of course, this problem will likely resolve with weight loss associated with bariatric surgery. 9. Perioperative counseling. I personally discussed the risks versus benefits of Cora-en-Y procedure with both the patient and her , Amador. We discussed the risks of dumping syndrome, vitamin deficiencies, blood clots and leaks. We also discussed the risk of and stenosis. Discussed possibility of accelerated bone loss/osteopenia or osteoporosis as well as hypoglycemia. Usual perioperative course was discussed. All questions regarding surgical procedure were answered. The patient and her understand that the patient should not become in the first 18-24 months after surgery, and the patient has had tubal ligation. Once the patient has completed all of the above requirements, she will be allowed to see the surgeon of her choice for a consultation regarding Cora-en-Y procedure. Revised CC List: 08/22/2010, sp Electronically signed on 09/19/2010 16:09 by REBECCA CONTEH MD MT: [id number] Name: MUKUL REID MRN: [id number] Account: [id number] : 1980 Visit Date: 06/06/2010 Document: [id number] cc: Yakov Mcgarry MD A CONSULTANT OUTSIDE SALES documented in this encounter Plan of Treatment Not on filedocumented as of this encounter Visit Diagnoses Not on filedocumented in this encounter
--- OUTSIDE RECORDS SUMMARY | 2022-04-10 14:46 | XMS_ITS | Encounter Summary ---
:1980 Author Organization [facility] Address [address] [place] [address] Care Team Providers Name Role Phone Unavailable Primary Care Provider Unavailable Encounter Details Date Type Department Care Team Description 01/14/2011 Therapy Visit [facility] for [facility] P T Thoracic sprain and strain; Athletic Medicine - [address] Fiorella herrera sprain and strain [facility] [address] [place] [address] Sofi Paul [facility]. 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 Pt discharged at this time. Padmini Sibley - 01/15/2011 12:04 PM CDT Subjective: Pertinent medical history includes: Thyroid problems, overweight and migraines. Medical allergies: yes (codeine, keflex). Other surgeries include: Other (c- section and appendectomy). Current medications: Thyroid medication. Current occupation is None. Red flags: Severe headaches. Objective: System Physical Exam General ROS Assessment/Plan: Gagan Hill - 01/14/2011 6:58 PM CDT Subjective: Gricelda Roberts is a 30 year old female with a lumbar condition. Condition occurred with: Insidious onset. Insidous onset of thoracic/lumbar pain 2 years ago. Pt has had intermittent pain since. Pt hasnoted increased symptoms since 4-11. Patient reports pain: Thoracic spine right, thoracic spine left, lumbar spine right and lumbar spineleft. Pain is described as burning and stabbing and is intermittent and reported as 9/10. Pain is worse during the day. Symptoms are exacerbated by standing and walking and relieved by rest, ice, heat and NSAID's. Since onset symptoms are unchanged. Previous treatment includes chiropractic. There was no improvement following previous treatment. Objective: System Lumbar/SI Evaluation ROM: AROM Lumbar: Flexion: 80 Ext: 60 Side Bend: Left: 75 Right: 75 Rotation: Left: 50 Right: 50 Side [place]: Left: Right: AROM Thoracic: Flex: 75 Ext: 50 Rotation: Left: 50 Right: 50 Strength: weak abdominal and pelvic stabiliizers, weak scapular stabilizers Lumbar Palpation: Palpation (lumbar): point tenderness T5-T8. Muscle guarding rhomboids and lumbar parasoinals. General ROS Assessment/Plan: Patient is a 30 year old female with thoracic and lumbar complaints. Patient has the following significant findings with corresponding treatment plan. Diagnosis 1: Thoracic/lumbar strain Pain - hot/cold therapy, self management, education, directionalpreference exercise and home program Decreased ROM/flexibility - therapeutic exercise Decreased strength - therapeutic exercise and therapeutic activities Previous and current functional limitations: (See Goal Flow Sheet for this information) Short term and oyster floater goals: (See Goal Flow Sheet for this [...] normal activities. Rehab potential is good. Frequency: 2 X week Duration: for 4 weeks Discharge Plan: Achieve all LTG. Independent in home treatment program. Reach maximal therapeutic benefit. Please refer to the daily flowsheet for treatment today, total treatment time and time spent performing 1:1 timed codes. documented in this encounter Plan of Treatment Not on filedocumented as of this encounter Procedures Procedure Name Priority Date/Time Associated Diagnosis Comme nts [facility] THERAPEUTIC Routine 01/14/2011 7:42 PM Thoracic sprain and EXERCISES CDT strain Lumbar sprain and strain [facility] HOT OR COLD PACKS Routine 01/14/2011 7:42 PM Thoracic spra in and THERAPY CDT strain Lumbar sprain and strain documented in this encounter Visit Diagnoses Diagnosis Sprain of thoracic region Sprain of lumbar region documented in this encounter
--- OUTSIDE RECORDS SUMMARY | 2022-04-10 14:46 | XMS_ITS | Encounter Summary ---
:1980 Author Organization [facility] Address [address] [place] [address]. [place] [address] Care Team Providers Name Role Phone Unavailable Primary Care Provider Unavailable Encounter Details Date Type Department Care Team Description 07/15/2010 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 Mukul Reid: I reviewed the results of her overnight polysomnogram, reviewed from her sleep history as well as her history dealing with weight gain issues and her headache history. 1. Patient's possible sleep disordered breathing. She is planned currently to undergo a bariatric procedure for weight loss and to a large degree results of her overnight polysomnogram would reinforcethat plan. In particular, the patient does have obstructive sleep apnea however, it is only mild. Her apnea-hypopnea index was only 6.6 events an hour. She has slightly more respiratory event- related arousals so that she has a slight elevation of respiratory disturbance index to near 12. We discussed these findings at length. In particular, she primarily has her events when she is sleeping supine andshe tries to avoid sleeping supine at home. Conversely we tried to encourage her to sleep supine here to try to ascertain how severe her sleep disordered breathing could be and thus it is likely our findings are slightly overestimating her sleep disordered breathing. There was no evidence of sleep-related hypoxemia. I did not see any evidence, nor was there any commented on from Dr. Lujan, as to whether or not the patient may have an elevation of transcutaneous carbon dioxide. Regardless, she didnot have sustained hypoxia. We discussed how her sleep disordered breathing is quantified. In particular an AHI of 6.6, while technically above the threshold of 5 to qualify for mild obstructive sleep apnea, is actually not dramatically higher than the range of normal population. We also discussed the very minimal evidence suggestive that surgery, CPAP or mandibular reposition appliance significantly will reduce this number. However, I am quite certain that substantial weight loss from any bariatric surgery has a great potential of not only improving her sleep disordered breathing but also improving the other multiple comorbidities that morbid obesity effects and thus if anything, I would see this as merely another piece ofevidence suggestive that she should undergo the weight loss procedure if otherwise, appropriate. We also discussed her concerns regarding chronic headache and the fact that her sleep disordered breathing may be playing a role. Again considering that her sleep disordered breathing is only mild I think it is playing a mild role at best. She has not yet seen a neurologist apparently to evaluate herheadaches. 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 In particular, she states that over the last month she took acute analgesic medications on a daily basis. I explained how this can set her up for chronic rebound pain phenomena, even if that medication is only [id number]-[id number] acetaminophen an agent which is well known todo this. I recommended that she consider going on a prophylactic headache medication but would advise that she see a neurologist who specializing in headaches for this treatment. Furthermore, I also suggested weight loss may very well affect other aspects of her overall well-being, such as headaches as well. One possible consideration would be pseudotumor cerebri but I defer that to her future neurologist. All the patient's questions were answered. I have asked if she has any future sleep issues to please do not hesitate to contact me. I would be more than happy to address them for her. It is a pleasurebeing asked to participate in the care of this patient. This was a 30-minute visit, greater than 50% of the time was spent in counseling and coordination of care. Electronically signed on 07/17/2010 09:48 by DARRYL SOTO MD MT: cc Name: MUKUL REID Account: [id number] : 1980 Visit Date: 07/15/2010 Document: [id number] cc: Montserrat Costa MD RINARY POULTRY INSPECTOR documented in this encounter Plan of Treatment Not on filedocumented as of this encounter Visit Diagnoses Not on filedocumented in this encounter
--- OUTSIDE RECORDS SUMMARY | 2022-04-10 14:46 | XMS_ITS | Encounter Summary ---
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 HISTORY OF PRESENT ILLNESS: Mukul Reid is a 28-year-old female who presents to the emergency department with 3 days of vaginal bleeding. She is changing 3 to 4 tampons every hour. She is feeling a little bit dizzy and light-headed, especially with standing up. She has had this before in the past and it has been ongoing for about the past 1-1/2 years. Last period was 53 days ago. She has been getting a period every 2 to 3 months and then subsequently bleeding very heavily for 1 to 1-1/2 weeks. She has not seen her AMERICAN STUDIES PROFESSOR for this, but she was sick of it today, so she came here for evaluation. She has been on some control pills in the past for this. She has not had any history of fibroids at all. She has some lower abdominal cramping at an 8/10 which is usual for her pain. PAST MEDICAL HISTORY: C-sections x2, appendectomy, cholecystectomy, tubal ligation. SOCIAL HISTORY: The patient denies tobacco use, denies alcohol use and denies illicit drug use. FAMILY MEDICAL HISTORY: Noncontributory. MEDICATIONS: None. ALLERGIES: Codeine and Keflex. REVIEW OF SYSTEMS: Ten-point review of systems completed and negative, except for elements in the HPI. PHYSICAL EXAMINATION: VITAL SIGNS: Temperature is 98.1, heart rate 101, respiratory rate 18, blood pressure 173/115, oxygen saturation 95% on room air. GENERAL: The patient is alert, oriented, in no acute distress. She is calm, cooperative, no diaphoresis. She talks in complete sentences. HEENT: Normocephalic, atraumatic.Pupils equal, round, react to light. No scleral icterus. No conjunctival pallor. Nares are patent bilaterally. Oropharynx is clear, no lesion or exudate. NECK: Supple. There is no meningismus. RESPIRATORY: Lungs are clear to auscultation bilaterally, no wheezes, rales or rhonchi. HEART: Tachycardic, regular rhythm, no murmurs, rubs or gallops. ABDOMEN: Soft, obese, nondistended, nontender, normoactive bowel sounds. GENITOURINARY: Jose R stage V, external genitals with no lesions. Vaginal mucosa is pink and well rugated. Cervix was normal in appearance. There is some blood in the vaginal vault. No cervical motiontenderness, no adnexal tenderness. No uterine tenderness. EXTREMITIES: Warm and well perfused. Radial pulses are 2+ symmetric bilaterally. NEUROLOGIC: The patient is alert and oriented. GCS 15. Moving all 4 extremities spontaneously. Sensation to light touch intact over extremities. SKIN: Warm and dry. LABORATORY AND DIAGNOSTICS: Ultrasound of the pelvis shows normal uterus, endometrial stripe was 1 cm in thickness, no free fluid. Wet prep was normal. GC and chlamydia swabs were sent. Hemoglobin was14.2. Urine hCG was negative. Urinalysis showed moderate blood, 4 RBCs and 2 squamous epithelial cells. EMERGENCY DEPARTMENT COURSE: A 28-year-old female with vaginal bleeding. She is not . She was slightly tachycardic here initially. This resolved with no intervention here. On the pelvic exam, she really had no active bleeding that I could appreciate. Hemoglobin was normal. Pelvic ultrasound did not show any fibroids. I did discuss with her hormonal treatments at this time and she will followup with her AMERICAN STUDIES PROFESSOR by phone tomorrow as she does have some control pills that she had previously. I feel that she is stable to be discharged home at this time with a normal hemoglobin, no significant active bleeding here and normal vital signs. She should return with any worsening symptoms. ASSESSMENT: Vaginal bleeding. DISPOSITION: Stable to home. Electronically signed on 09/27/2009 12:00 by SANDER JEAN MD MT: [id number] Name: MUKUL REID Account: [id number] : 1980 Visit Date: 09/07/2009 Document: [id number] SSAYIST documented in this encounter Plan of Treatment Not on filedocumented as of this encounter Visit Diagnoses Not on filedocumented in this encounter
--- OUTSIDE RECORDS SUMMARY | 2022-04-10 14:46 | XMS_ITS | Encounter Summary ---
:1980 Author Organization [place] Address [address] [place] [address]. 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 HISTORY OF PRESENT ILLNESS: Mukul Redi is a 29-year-old female who said that over the last 4-5 days she has had progressive pain in her knee, and it hurts with ambulation, putting any weight on theknee, as well as full flexion and full extension at the knee. She says at rest it does not really cause any significant pain. She denies any significant swelling noted at the knee, or pain at the hip and/or left ankle itself. She has not noticed to have any fevers or chills. She denies any other jointpains. The patient does not remember doing anything specifically to injure her left knee. The only thing she remembers really doing recently is she did take a step downward and stepped awkwardly on herleft leg, but she does not remember doing anything at that time to injure anything. The patient has never had problems with the knee joint or knee pain before. She comes in for evaluation. PAST MEDICAL HISTORY: Negative for any known significant medical problems. PAST SURGICAL HISTORY: Cholecystectomy, appendectomy, , tubal ligation. SOCIAL HISTORY: Denies smoking, using drugs or drinking alcohol. FAMILY HISTORY: Noncontributory. MEDICATIONS: None. ALLERGIES: Codeine, Keflex. REVIEW OF SYSTEMS: All negative except as above. PHYSICAL EXAMINATION: VITAL SIGNS: Blood pressure 165/93, pulse 87, respirations 16, temperature 98.1, O2 saturation 100%on room air. HEENT: Unremarkable. LUNGS: Clear. HEART: Regular rate and rhythm. ABDOMEN: Soft. No focal tenderness noted. No evidence of obvious masses noted in her abdomen. BACK:Unremarkable. EXTREMITIES: I did not see any definitive joint effusions or swelling of any joints. In the left knee itself, she seemed to have increased pain in the popliteal fossa on palpation without any evidenceof obvious fullness noted. Also in the medial anterior line at the knee joint, just medial to the patella, with full extension she has increased pain. She is able to actively range with extension and flexion at the knee. I did not see any evidence of significant joint swelling or effusion compared to the right knee, but with the body habitus it was somewhat difficult. There was no erythema overlying the skin of the joint and/or excessive warmth noted. She has normal distal pulses in all four extremit ies. No obvious calf edema or asymmetry noted between the left and right lower extremities. HOSPITAL COURSE AND DISPOSITION: Due to the location of pain in the proximal calf and popliteal fossa and this unexplained pain, we did get an ultrasound of the left lower extremity. This showed no evidence of DVT. Also, she had a plain x-ray at the knee joint. I did not see any evidence of obvious significant bony abnormality and/or significant joint space disease at this time. I reviewed the results with the patient. She was given Darvocet and ibuprofen orally. I discussed with her about the possibility of having a knee strain with stepping awkwardly, also with her obesity she has an increased preponderance to knee problems. She has no evidence of obvious infectious cause of her knee pain. She needs to do daily stretching, ambulating. Ice the knee, rest, and elevate it as much as possible. She was given a referral to [facility] for followup if she has no significant improvement in the next five days. The plan is to have her stay on the anti-inflammatory, andgive her Darvocet at home for pain. The patient was discharged home. DIAGNOSIS: Left knee pain. Electronically signed on 03/13/2010 02:52 by ONEAL GUSTAFSON MD MT: SHON#[id number] Name: MUKUL REID Account: [id number] : 1980 Visit Date: 02/27/2010 Document: [id number] cc: [facility] documented in this encounter Plan of Treatment Not on filedocumented as of this encounter Visit Diagnoses Not on filedocumented in this encounter
--- OUTSIDE RECORDS SUMMARY | 2022-04-10 14:46 | XMS_ITS | Encounter Summary ---
:1980 Author Organization [place] Address [facility] 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 She was scheduled for a primary section on 11/16/2006 at 38 and 4/7ths weeks. She had a primary low transverse section via Pfannenstiel incision by Dr. Mcgarry. She had a female infant, Apgars 2 at one and 8 at five minutes, weighing 7 pounds 6 ounces. Post- operatively she did overall well. Hemoglobin 10.7. Of note is that during her she did have some borderline diastolic blood pressures in the 90s. Post-operatively there were also some borderline elevated blood pressures in the 90 range. The decision was made to discharge her to home with routine discharge instructions and routine meds on 11/20/2006. She will return to the office next week for blood pressure check. She was given Percocet, dispensed 20. Electronically signed on 01/07/2007 09:45 by SYL WOMACK MD MT: ms Name: MUKUL REID Account: [id number] : 1980 Admit Date: Discharge Date: 11/20/2006 Document: [id number] documented in this encounter Plan of Treatment Not on filedocumented as of this encounter Visit Diagnoses Not on filedocumented in this encounter
--- OUTSIDE RECORDS SUMMARY | 2022-04-10 14:46 | XMS_ITS | Encounter Summary ---
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 HEMOGLOBIN STAT 11/16/2006 7:30 AM Results f or this CDT procedure are i n the results section. ABO/RH TYPE AND STAT 11/16/2006 7:30 AM Result s for this SCREEN CDT procedure are i n the results section. documented in this encounter Results Hemoglobin (11/16/2006 7:30 AM CDT) P athologist Signature Hemoglobin 12.7 11.7 - 15.7 MISYS g/dL Specimen Anatomical Collection Method Collection Time Receive d Time (Source) Location / / Volume Laterality 11/16/2006 7:30 AM 7 7:18 CDT AM CDT Yakov Mcgarry MD LAB - BLOOD ORDERABLES Performing Organization Address City/State/ZIP Code Phon e Number MISYS Platelet count (11/16/2006 7:30 AM CDT) P athologist Signature Platelet Count 283 150 - 450 [facility] 10e9/L Specimen Anatomical Collection Method Collection Time Receive d Time (Source) Location / / Volume Laterality 11/16/2006 7:30 AM 7 8:45 CDT AM CDT Yakov Mcgarry MD LAB - BLOOD ORDERABLES Performing Organization Address [facility] Phon e Number MISYS ABO/Rh type and screen (11/16/2006 7:30 AM CDT) Analysis Performed At Patho logist Time Signature ABO O MISYS RH(D) Pos MISYS Antibody Neg MISYS Screen Specimen 11/19/2006 [facility] Expires Specimen Anatomical Collection Method Collection Time Receive d Time (Source) Location / / Volume Laterality 11/16/2006 7:30 AM 7 7:18 CDT AM CDT Yakov Mcgarry MD LAB - BLOOD BANK TEST ORDER Performing Organization Address [facility] Phon e Number MISYS documented in this encounter Visit Diagnoses Not on filedocumented in this encounter
--- OUTSIDE RECORDS SUMMARY | 2022-04-10 14:46 | XMS_ITS | Encounter Summary ---
:1980 Author Organization [place] Address [address] [place] [address]. 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 CHIEF COMPLAINT: Cryptic tonsils with asymmetry. HISTORY OF PRESENT ILLNESS Mukul Reid is a 27-year-old female status post section earlier this morning. She has seen Dr. Aime Espinosa in the past with a history of tonsillar enlargement and asymmetry. She also gets a buildup of debris in the tonsillar crypts. She does have a past history of smoking. She does not report any other specific ear, nose or throat complaints or problems. The remainder of the past medical history, social history, family history and review of systems is as noted in the chart. PHYSICAL EXAMINATION: The examination today revealed both ears to be clear, without evidence of fluid on either side. The nose was clear anteriorly. The oral cavity revealed cryptic tonsils. There is no significant debris noted today. The right is slightly larger than the left. There are no ulcerations seen. There was no significant debris noted in the tonsillar crypts today. The neck was without significant adenopathy or masses. IMPRESSION: Cryptic tonsils with some mild asymmetry. PLAN: I think that at this point as per previous discussion she may be a reasonable candidate to have an adenotonsillectomy both for diagnostic and therapeutic purposes. This would rule out any potential neoplastic process involving the right tonsillar asymmetry. However, this could be scheduled as an outpatient sometime in the next week or two with Dr. Espinosa as we would prefer her to recovermore fully from the section prior to undergoing a second surgical procedure. We discussed the risks, benefits and alternatives to this. We will give her the number for scheduling and this could be arranged per her convenience as an outpatient. Electronically signed on 01/13/2008 11:46 by MARIO LARIOS MD MT: rashard Name: MUKUL REID Account: [id number] : 1980 Consult Date: 01/04/2008 Document: [id number] cc: Yakov Mcgarry MD documented in this encounter Plan of Treatment Not on filedocumented as of this encounter Visit Diagnoses Not on filedocumented in this encounter
--- OUTSIDE RECORDS SUMMARY | 2022-04-10 14:46 | XMS_ITS | Encounter Summary ---
:1980 Author Organization [place] Address [address] [place] [address]. [place] [address] Care Team Providers Name Role Phone Unavailable Primary Care Provider Unavailable Encounter Details Date Type Department Care Team Description 07/01/[address] 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 Borderline elevation of the respiratorydisturbance index is noted at 12.7 events per hour. Occasional periodic limb movements are seen during the recording. These rouse the patient less than5 times per hour. No significant EKG abnormalities are seen. No significant EEG abnormalities are seen. Mild to moderate snoring is appreciable. IMPRESSION: Overnight polysomnography does indicate borderline obstructive sleep apnea. It is notedthat REM sleep development was poor and minimal REM sleep could be recorded in the supine position, with the only such brief period, indicating very modest oxygen desaturation, as is noted above. Clinical correlation is recommended. Electronically signed on 07/07/2010 13:48 by LUCIANO POE MD MT: nr Name: MUKUL REID MRN: [id number] Account: [id number] : 1980 Visit Date: 07/01/2010 Document: [id number] NESS ADMINISTRATION PROFESSOR documented in this encounter Plan of Treatment Not on filedocumented as of this encounter Procedures Procedure Name Priority Date/Time Associated Diagnosis Comme nts ZZC 07/06/2010 1:54 PM Results f or this POLYSOMNOGRAPHY, 4 BUSINESS ADMINISTRATION PROFESSOR procedure are in OR MORE the results section. documented in this encounter Results C POLYSOMNOGRAPHY, 4 OR MORE (07/06/2010 1:54 PM BUSINESS ADMINISTRATION PROFESSOR) Transcriptions Luciano Poe - 07/06/2010 1:54 P M BUSINESS ADMINISTRATION PROFESSOR FINAL POLYSOMNOGRAM PATIENT: Mukul Reid SUMMARY: Overnight polysomnography jb rds 436 minutes of sleep with a normal sleep latency of 7 minutes and a slightly protracted REM latency of 150.5 minutes. Borderline elevation of the respiratory disturbance index is noted at 12.7 events per hour. Occasional periodic limb movements are seen during the recording. These rouse the patient less than 5 times per hour. No significant EKG abnormalities are se en. No significant EEG abnormalities are se en. Mild to moderate snoring is appreciable . IMPRESSION: Overnight polysomnography d oes indicate borderline obstructive sleep apnea. It is noted that REM sleep development was poor and minimal REM sleep could be recorded in the supine position, with the only such brief period, indicating very modest oxygen desaturation, as is noted above. Clinical correlation is recommended. Electronically signed on 07/07/2010 13: 48 by LUCIANO POE MD MT: nr Name: MUKUL REID MRN: [id number] Account: [id number] : 1980 Visit Date: 07/01/2010 Document: [id number] Luciano Poe MD PROCEDURES documented in this encounter Visit Diagnoses Not on filedocumented in this encounter
--- OUTSIDE RECORDS SUMMARY | 2022-04-10 14:46 | XMS_ITS | Encounter Summary ---
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 documented in this encounter Results SONO PELVIS COMPLETE (09/13/2008 6:57 PM INFRASTRUCTURE DEVELOPER) Specimen (Source) Anatomical Collection Method Collection Time Re ceived Time Location / / Volume Laterality 09/13/2008 6:57 PM INFRASTRUCTURE DEVELOPER Impressions RADIOLOGY RESULTS - 09/14/2008 12:24 PM INFRASTRUCTURE DEVELOPER PELVIC ULTRASOUND ??September 13, 2008 6:5 7:00 PM HISTORY: Vaginal bleeding. TECHNIQUE: Transabdominal and endovagina l technique to better visualize the endometrial stripe and adn exa. COMPARISON: Prior OB ultrasound at twent y-four weeks gestation on 08/04/2006. FINDINGS: Uterus approximately 9.8 x 3.7 x 4.8 cm in size. With endovaginal scanning there is focal thic kening of the endometrial stripe in the uterine body approximately 1.3 cm in size. Endometrial stripe in the fundus is 1.1 cm. There ar e no fibroids identified and no focal lesion identified in the endome trial cavity. Trace amount of free fluid in the pelvis. Normal-appeari ng left ovary. Nonvisualized right ovary. IMPRESSION: Slightly irregular contour o f the endometrial stripe, although the endometrium is homogeneous in echogenicity. Cannot rule out a focal area of endometrial thickeni ng or isoechoic endometrial polyp in the uterine body. Consider a fo llowup ultrasound, ideally just after a ??menstrual cycle, and if t his endometrial irregularity and mild thickening persists then hyster osonogram may be helpful for further evaluation. Tarik Gomez SPECIAL IMAGING STUDIES Performing Organization Address City/State/ZIP Code Phon e Number RADIOLOGY RESULTS documented in this encounter Visit Diagnoses Not on filedocumented in this encounter
--- OUTSIDE RECORDS SUMMARY | 2022-04-10 14:46 | XMS_ITS | Encounter Summary ---
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 LT X-RAY KNEE 3 Routine 02/27/2010 7:39 PM Re sults for this VIEW CDT procedure are i n the results section. [facility] LT DUPLEX Routine 02/27/2010 7:21 PM Results for this EXTREM VENOUS,UNI CDT procedure are in OR LTD the results section. documented in this encounter Results LT X-RAY KNEE 3 VIEW (02/27/2010 7:39 PM CDT) Specimen (Source) Anatomical Collection Method Collection Time Re ceived Time Location / / Volume Laterality 02/27/2010 7:39 PM CDT Impressions RADIOLOGY RESULTS - 02/28/2010 11:30 AM CDT LEFT KNEE, THREE VIEWS ??Feb 27, 2010 7: 39 PM ?? HISTORY: Pain. COMPARISON: None. IMPRESSION: Possible slight lateral alejandre llar subluxation. Otherwise negative. Alverto Gustafson MD GENERAL IMAGING Performing Organization Address City/State/ZIP Code Phon e Number RADIOLOGY RESULTS LT DUPLEX EXTREM VENOUS,UNI OR LTD (02/27/2010 7:21 PM CDT) Specimen (Source) Anatomical Collection Method Collection Time Re ceived Time Location / / Volume Laterality 02/27/2010 7:21 PM CDT Impressions RADIOLOGY RESULTS - 02/27/2010 7:27 PM C DT US VENOUS LOWER EXT UNI LEFT ?? Feb 27, 2010 7:21:00 PM HISTORY: Pain. COMPARISON: None. FINDINGS: The left common femoral, femor al, and popliteal veins are patent, compressible, and negative for d eep venous thrombosis. Calf veins are segmentally seen but appear ne gative for DVT where visualized. ? IMPRESSION: ??No evidence for deep venou s thrombosis in the left lower extremity veins. Alverto Gustafson MD SPECIAL IMAGING STUDIES Performing Organization Address City/State/ZIP Code Phon e Number RADIOLOGY RESULTS documented in this encounter Visit Diagnoses Not on filedocumented in this encounter
--- OUTSIDE RECORDS SUMMARY | 2022-04-10 14:46 | XMS_ITS | Encounter Summary ---
:1980 Author Organization [place] Address [address] [place] [address]. 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 Estimated gestational age by 12-week ultrasound with estimated date of sobbpjnobzf44/19/07. Patient has a known breech presentation over the last few months of . External cephalic version was discussed with the patient at length. She has declined this. Ultrasound done todayin our clinic confirms breech presentation yet again. Patient is scheduled to undergo a primary section on 11/16/06 secondary to breech presentation. The patient's antepartum course was complicated by obesity. She did fail her one-hour glucose screen, however passed a three-hour glucose tolerance test. She had a normal hemoglobin A1c of 5.3 on 06/15/06. Patient is group B strep negative. Thepatient's last ultrasound for growth was on 11/02/06, demonstrating an average ultrasound age of 36 weeks 1 day with estimated weight of 2820 grams or 6 pounds 3 ounces which is the 40th percentile. LICO was 12.1. This ultrasound confirmed breech presentation as well. Patient understands the risks, benefits and alternatives to a primary section versus trying to attempt external cephalic version. Patient elects to proceed. PAST OB HISTORY: Current. CLIP RIVETER HISTORY: Patient has a history of irregular cycles, perhaps every 4-8 weeks. Her Pap smear history is normal and negative. She denies history of STDs. PAST MEDICAL HISTORY: 1. Obesity. 2. History of depression. 3. Extremely poor dentition. PAST SURGICAL HISTORY: 1. Appendectomy in April of 2005. 2. Cholecystectomy in April of 2005. MEDICATIONS: vitamins. ALLERGIES: Codeine. SOCIAL HISTORY: Patient and her live in [place]. She does not work outside the home. She denies tobacco, alcohol or other illicit drug use. FAMILY HISTORY: Noncontributory. LABS: (Drawn on 05/18/06.) Blood type O, Rh positive, antibody screen negative, hepatitis B surface antigen nonreactive, rubella immune, RPR nonreactive, HIV nonreactive, hemoglobin 13.5, platelets 316,000. Pap smear was normal on 05/25/06. PHYSICAL EXAMINATION: VITAL SIGNS: Blood pressure 138/70, weight 284 pounds. GENERAL: Alert and oriented x 3, in no apparent distress. HEENT: Normocephalic, atraumatic. EOMI. Conjunctivae clear. NECK: Supple, mobile. No lymphadenopathy or thyromegaly. HEART: S1 and S2. Regular rate and rhythm. LUNGS: Clear to auscultation bilaterally. No wheezes, rales or rhonchi. BACK: No costovertebral angle tenderness. ABDOMEN: Soft, gravid, nontender. Fundal height of 40 cm. PELVIC: Cervix is posterior, closed, 50% effaced, -2 to -3 station and midconsistency. EXTREMITIES:Bilateral lower extremity edema, nontender. IMAGING: Ultrasound today confirms breech presentation with the head in the right upper quadrant. ASSESSMENT: 1. [age] year old 1 para 0, presenting at 37 weeks 4 days gestation. 2. Breech presentation. Declined external cephalic version. PLAN: Patient is scheduled to undergo a primary section on 11/16/06 for breech presentation. Electronically signed on 11/10/2006 11:15 by YAKOV CALLE MD MT: eric Name: MUKUL REID MRN: [id number] Account: [id number] : 1980 Admitted: [id number] Document: [id number] cc: Nemesio Costa MD documented in this encounter Plan of Treatment Not on filedocumented as of this encounter Visit Diagnoses Not on filedocumented in this encounter
--- OUTSIDE RECORDS SUMMARY | 2022-04-10 14:46 | XMS_ITS | Encounter Summary ---
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 HISTORY OF PRESENT ILLNESS: Mukul Roberts is a 27-year-old female who has been having off and on back pain since the 16th of last month. It is always in the low back on her right. No radiation down the leg. No pain in her upper back or in her abdomen. She has also been having some vaginal bleeding. She delivered on 01/04/2008. She has been having off and on abnormal periods and vaginal bleeding. No other complaints. PAST MEDICAL HISTORY: Negative. PAST SURGICAL HISTORY: Tubal ligation, appendectomy, cholecystectomy, x2. SOCIAL HISTORY: The patient is negative. She is here with her . MEDICATIONS: None. ALLERGIES: Codeine, Keflex. REVIEW OF SYSTEMS: As noted in HPI. All other systems are negative. PHYSICAL EXAMINATION: GENERAL: The patient is alert and cooperative. VITAL SIGNS: The patient's blood pressure is 121/79, pulse 90, respiratory rate 18, temperature 98.1 and O2 sats 98% on room air. HEENT: Head is normocephalic and atraumatic. Pupils are equal, round and reactive to light. EOMs are intact. Oropharynx is pink, moist and intact. No lesions noted. External auditory canals are without drainage. NECK: Supple, full range of motion is noted. CARDIAC: Regular rate and rhythm without murmurs. PULMONARY: Clear bilaterally, no rhonchi or wheezes present. ABDOMEN: Soft, positive bowel sounds, no tenderness. The patient is morbidly obese. EXTREMITIES: Normal strength, normal range of motion. Pulses full and symmetric. Sensation appears normal. NEUROLOGIC: Cranial nerves II through XII appear grossly intact. SKIN: Ault, warm and dry without rashes. BACK: The patient's back was palpated, she did have some low back pain near the SI joint on the right. The patient had excellent plantarflexion and dorsiflexion of her feet and excellent patellar reflexes. EMERGENCY DEPARTMENT COURSE: The patient was given Darvocet orally, which did help her discomfort. A hemoglobin was normal and the patient had a urine , which was negative. Urinalysis was negative. Ultrasound was completed and she did have some abnormalities on her ultrasound. Her endometrium was thickened and possibly a polyp present. I told her she probably needs to have a repeat ultrasound after this period is over but otherwise I think the back pain and the vaginal bleeding are not related. I am going to send her home on Darvocet and have her follow up with her OB doctor for repeat ultrasound. DIAGNOSES: Back pain, possible uterine polyp and menorrhagia. PLAN: The patient will be discharged home. Darvocet for pain. Follow up with her Disassembler Product doctor in the next few days for an appointment. I told her to return here if increased pain, any loss of bowel or bladder function, or foot drop. Electronically signed on 09/26/2008 07:11 by LAUREN SUÁREZ MD MT: [email or web address] Name: MUKUL ROBERTS MRN: [id number] Account: [id number] : 1980 Visit Date: 09/13/2008 Document: [id number] SPRING UPHOLSTERER documented in this encounter Plan of Treatment Not on filedocumented as of this encounter Visit Diagnoses Not on filedocumented in this encounter
--- OUTSIDE RECORDS SUMMARY | 2022-04-10 14:46 | XMS_ITS | Encounter Summary ---
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 documented in this encounter Results SONO PELVIS COMPLETE (09/07/2009 10:28 PM TIRE FABRIC INSPECTOR) Specimen (Source) Anatomical Collection Method Collection Time Re ceived Time Location / / Volume Laterality 09/07/2009 10:28 PM TIRE FABRIC INSPECTOR Impressions RADIOLOGY RESULTS - 09/08/2009 8:[address] ULTRASOUND PELVIS WITH TRANSVAGINAL IMAG ING ??Sep 07, 2009 10:28:00 PM HISTORY: Vaginal bleeding. COMPARISON: 09/13/2008. TECHNIQUE: Endovaginal imaging was also performed to better evaluate the endometrium. FINDINGS: The uterus is anteflexed measu ring 9.7 x 4.5 x 4.0 cm in long axis, short axis, and transverse di mensions respectively. No myometrial masses. A mild irregularity i n the anterior lower uterine segment of the uterus likely represents a scar from prior section. The endometrial stripe is unrem arkable measuring 1.0 cm in thickness. The ovaries were not able to be visualized. No adnexal masses. No free fluid in the pelvis. IMPRESSION: ? 1. Unremarkable appearance of the uterus . The endometrial stripe measures 1.0 cm in thickness. 2. The ovaries were not visualized. 3. No free fluid in the pelvis. Cedric Perez MD SPECIAL IMAGING STUDIES Performing Organization Address City/State/ZIP Code Phon e Number RADIOLOGY RESULTS documented in this encounter Visit Diagnoses Not on filedocumented in this encounter
--- OUTSIDE RECORDS SUMMARY | 2022-04-10 14:46 | XMS_ITS | Encounter Summary ---
:1980 Author Organization [facility] Address [address] [place] [address]. 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 VITAMIN B1 WHOLE Routine 03/04/2011 2:03 PM Resul ts for this BLOOD CDT procedure are i n the results section. PARATHYROID HORMONE Routine 03/04/2011 2:03 PM Re sults for this INTACT CDT procedure are i n the results section. IRON AND IRON BINDING Routine 03/04/2011 2:03 PM Results for this CAPACITY CDT procedure are i n the results section. FERRITIN Routine 03/04/2011 2:03 PM Results f or this CDT procedure are i n the results section. VITAMIN B12 Routine 03/04/2011 2:03 PM Results f or this CDT procedure are i n the results section. documented in this encounter Results Vitamin D Deficiency (03/04/2011 2:03 PM CDT) Component Value Ref Test Analysis Performed At [facility] Range Method Time Signature 25 [place] Vit D2 <5 ug/L [facility] 25 [place] Vit D3 29 ug/L [facility] 25 [place] Vit D <34 30 - 75 [facility] total Season, race, dietary intake, and treatm ent affect the concentration of ug/L [facility] 20-ldsdsql-Ibzitfs D. Values may decrease during pawel er months and increase [facility] during summer months. Values less than 30 ug/L may indicate Vitamin D deficiency. Specimen Anatomical Collection Method Collection Time Receive d Time (Source) Location / / Volume Laterality 03/04/2011 2:03 PM 1 2:05 CDT PM CDT Gagan Worthington MD LAB - BLOOD ORDERABLES Performing Organization Address City/State/ZIP Code Phon e Number [address] [address] [facility] Vitamin B1 whole blood (03/04/2011 2:03 PM CDT) athologist Signature Vitamin B1 [address] [place] Whole Blood [facility] LAB Comment: Reference range: 70 to 180 Unit: nmol/L (Note) TEST INFORMATION: Vitamin B1, Whole Bloo d The concentration of thiamine diphosphat e (TDP), the primary active form of vitamin B1, is me asured in this assay. Approximately 90% of vitamin B1 p resent in whole blood is TDP. Thiamine and thiamine mono phosphate, which comprise the remaining 10%, are not celsa ured. Performed by [facility], [address] [place] [id number] [email or web address], Rebekah Randall MD, Lab. Director Specimen Anatomical Collection Method Collection Time Receive d Time (Source) Location / / Volume Laterality 03/04/2011 2:03 PM 1 2:05 CDT PM CDT Gagan Worthington MD LAB - BLOOD ORDERABLES Performing Organization Address City/State/ZIP Code Phon e Number [facility] [address] [place], [place] [address] [facility] Vitamin B12 (03/04/2011 2:03 PM CDT) athologist Signature Vitamin B12 343 >210 pg/mL [facility] Comment: Interp: [phone] = Normal Specimen Anatomical Collection Method Collection Time Receive d Time (Source) Location / / Volume Laterality 03/04/2011 2:03 PM 1 2:05 CDT PM CDT Gagan Worthington MD LAB - BLOOD ORDERABLES Performing Organization Address City/[facility]/ZIP Code Phon e Number [address] LABS Parathormone intact (03/04/2011 2:03 PM CDT) athologist Signature Parathyroid 43 12 - 72 [facility] Hormone Intact pg/mL [facility] Specimen Anatomical Collection Method Collection Time Receive d Time (Source) Location / / Volume Laterality 03/04/2011 2:03 PM 1 2:05 CDT PM CDT Gagan Worthington MD LAB - BLOOD ORDERABLES Performing Organization Address City/[facility]/ZIP Code Phon e Number [address] LABS Ferritin (03/04/2011 2:03 PM CDT) athologist Signature Ferritin 62 10 - 120 [facility] ng/mL [facility] Specimen Anatomical Collection Method Collection Time Receive d Time (Source) Location / / Volume Laterality 03/04/2011 2:03 PM 1 2:05 CDT PM CDT Gagan Worthington MD LAB - BLOOD ORDERABLES Performing Organization Address City/[facility]/ZIP Code Phon e Number [facility] [address] [place], [place] [address] [facility] Iron and iron binding capacity (03/04/2011 2:03 PM CDT) athologist Signature Iron 81 35 - 180 [place] ug/dL [facility] Iron Binding 310 240 - 430 [place] Cap ug/dL [facility] Iron Saturation 26 15 - 46 % [facility] LAB Specimen Anatomical Collection Method Collection Time Receive d Time (Source) Location / / Volume Laterality 03/04/2011 2:03 PM 1 2:05 CDT PM CDT Gagan Worthington MD LAB - BLOOD ORDERABLES Performing Organization Address City/State/ZIP Code Phon e Number [facility] [address] [place], [place] [address] [facility] documented in this encounter Visit Diagnoses Not on filedocumented in this encounter
--- OUTSIDE RECORDS SUMMARY | 2022-04-10 14:46 | XMS_ITS | Encounter Summary ---
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 documented in this encounter Results (ABNORMAL) Hemoglobin (01/05/2008 8:00 AM CDT) P athologist Signature Hemoglobin 11.1 (L) 11.7 - 15.7 [facility] g/dL Specimen (Source) Anatomical Collection Method Collection Time Re ceived Time Location / / Volume Laterality 01/05/2008 8:00 AM 8 CDT Yakov Mcgarry MD LAB - BLOOD ORDERABLES Performing Organization Address City/State/ZIP Code Phon e Number [facility] documented in this encounter Visit Diagnoses Not on filedocumented in this encounter
--- OUTSIDE RECORDS SUMMARY | 2022-04-10 14:46 | XMS_ITS | Encounter Summary ---
:1980 Author Organization [facility] Address [address] [place] [address]. 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 documented in this encounter Results [employer] (08/04/2006 12:36 PM CASE MANAGEMENT ASSISTANT) Specimen (Source) Anatomical Collection Method Collection Time Re ceived Time Location / / Volume Laterality 08/04/2006 12:36 PM CASE MANAGEMENT ASSISTANT Impressions RADIOLOGY RESULTS - 08/04/2006 12:58 PM CASE MANAGEMENT ASSISTANT EXAM: ??US OB LIMITED HISTORY: ?right lower abd pain, ??25 week gest. possible placental abruption ? FINDINGS: 1. ??There is a single living IUP. ??mireya ech ? 2. ??Placenta is fundal without ??previa . No evidence for abruption. 3 ??Amniotic fluid volume is normal. 4. ?? heart beat is 163. 5. ??Cervical length: ??Not measured 6. ??BPD is 59 mm which correlates with 24 weeks [ 1 ] days gestation. ? HC is 223 mm which correlates wit h the 4 weeks 2 days gestation. ? Abdominal circumference is 191 mm which equals 23 weeks 6 days gestation. ? Femur length is 45 mm which corre lates with 24 weeks 5 days gestation. 7. ?? anatomic not performed 8. ??E stimated weight is 691 grams. ?? IMPRESSION: ??Single living IUP at 24 we eks 2 days gestation. ??No evidence for abruption. Paresh Castaneda MD SPECIAL IMAGING STUDIES Performing Organization Address City/State/ZIP Code Phon e Number RADIOLOGY RESULTS documented in this encounter Visit Diagnoses Not on filedocumented in this encounter
--- OUTSIDE RECORDS SUMMARY | 2022-04-10 14:46 | XMS_ITS | Encounter Summary ---
:1980 Author Organization [facility] Address [address] [place] [address]. 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 documented in this encounter Results (ABNORMAL) Routine UA with microscopic (08/04/2006 10:10 AM TABULAR TYPIST) [facility] Method Time Signature Source Midstream [facility]IS[facility] Urine Color Urine Light Yellow [facility] Appearance Urine Clear MIS[facility] Glucose Urine Negative NEG mg/dL MIS[facility] Bilirubin Urine Negative NEG [facility]IS[facility] Ketones Urine Negative NEG mg/dL [facility]IS[facility] Specific [place] 1.006 1.003 - MISYS Urine 1.035 Blood Urine Negative NEG MIS[facility] pH Urine 7.5 (H) 5.0 - 7.0 MISYS pH Protein Albumin Negative NEG mg/dL MISYS Urine Urobilinogen Normal 0.0 - 2.0 MISYS mg/dL mg/dL Nitrite Urine Negative NEG MIS[facility] Leukocyte Negative NEG [facility] Esterase Urine WBC Urine 1 0 - 2 [facility]IS[facility] /HPF RBC Urine 0 0 - 2 MIS[facility] /HPF Squamous 1 0 - 1 [facility] Epithelial /HPF /HPF Urine Bacteria Urine Few (A) NEG /HPF MIS[facility] Amorphous Few (A) NEG /HPF MIS[facility] Crystals Specimen Anatomical Collection Method Collection Time Receive d Time (Source) Location / / Volume Laterality 08/04/2006 10:10 08/04/2006 AM TABULAR TYPIST 10:28 AM TABULAR TYPIST Paresh Castaneda MD LAB - URINE ORDERABLES Performing Organization Address City/State/ZIP Code Phon e Number MISYS documented in this encounter Visit Diagnoses Not on filedocumented in this encounter
--- OUTSIDE RECORDS SUMMARY | 2022-04-10 14:46 | XMS_ITS | Encounter Summary ---
:1980 Author Organization [facility] Address [address] [place] [address]. 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 Her estimated gestational age is by 7 week 4 day ultrasound consistent with 20 week ultrasound. The patient's is complicated by a prior section. She had this in 2006 secondary to breech presentation. She desires repeat section as well as permanent sterilization via bilateral tubal ligation. She understands the risks, benefits and alternatives to elective repeat section and bilateral tubal ligation vs trial of labor after section. She is obese. She had an early one-hour glucose which she passed at 20 weeks. She had another one-hour glucose which was elevated at 171, however she passed the three-hour glucose tolerance test thereafter. Finally, the patient has an enlarged tonsil. She saw ENT recently. They desired to remove her tonsils, however given the fact that she was close to delivering they decided to defer until after that. The plan is for us to contact them to consult her in the hospital after her delivery. PAST OB HISTORY: section on 11/16/2006 for breech presentation. She delivered a girl named Trista who weighed 7 pounds 6 ounces at . She is currently doing well. INTEGRATION ENGINEER HISTORY: Menarche age 14, cycles are irregular. Pap smears normal or negative, most recent Pap smear was on 05/25/2006. She denies a history of STDs. PAST MEDICAL HISTORY: Obesity PAST SURGICAL HISTORY: 1. section in 11/2006. 2.Appendectomy. 3.Cholecystectomy. MEDICATIONS: vitamins. ALLERGIES: CODEINE AND KEFLEX, HOWEVER SHE DOES TOLERATE DARVOCET. SOCIAL HISTORY: The patient is . She, her and daughter live in [place]. The patient is a ipez-uc-zmaj mother. She denies alcohol, tobacco or illicit drug use. FAMILY HISTORY: Maternal grandmother had a child with spina bifida, otherwise noncontributory. LABS: Drawn on 06/02/2007: Blood type O, Rh positive, antibody screen negative, hepatitis B surface antigen nonreactive, rubella immune, RPR nonreactive, HIV nonreactive. Hemoglobin 14.1, platelets 358. PHYSICAL EXAMINATION: VITAL SIGNS: Height 5 feet 7 inches, weight 313 pounds. GENERAL: The patient is alert and oriented x 3, in no acute distress. HEENT: Normocephalic, atraumatic, conjunctivae clear. Neck supple, no lymphadenopathy, no thyromegaly. HEART: S1 and S2, regular rate and rhythm. LUNGS: Clear to auscultation bilaterally, no wheezing, rales or rhonchi. BACK: No costovertebral angle tenderness. ABDOMEN: Soft, gravid, nontender. PELVIC: Cervix is posterior, closed, 50% effaced, -2 station, mid consistency. This has been unchanged over the last few weeks. EXTREMITIES: Mild bilateral lower extremity edema, nontender. ASSESSMENT: 1.27-year-old 2 para 1-0-0-1 currently at 38 weeks 5 days gestation with estimated date of confinement 01/10/2008 2.History of prior section, desires repeat, also desires permanent sterilization via tubal ligation at the time of section. 3.Enlarged tonsil; per ENT, they would like to be consulted after section to possibly set up tonsillectomy for the patient. ALLERGIES: CODEINE, HOWEVER THE PATIENT DOES TOLERATE DARVOCET. PLAN: The patient will proceed to the operating room on 01/04/2008 for elective repeat section and bilateral tubal ligation. Electronically signed on 01/07/2008 17:09 by YAKOV CALLE MD MT: ATIYA Name: MUKUL REID MRN: [id number] Account: [id number] : 1980 Admitted: [id number] Document: [id number] documented in this encounter Plan of Treatment Not on filedocumented as of this encounter Visit Diagnoses Not on filedocumented in this encounter
--- OUTSIDE RECORDS SUMMARY | 2022-04-10 14:46 | XMS_ITS | Encounter Summary ---
:1980 Author Organization [facility] Address [address] [place] [address]. 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 URINE CULTURE Routine 09/03/2006 9:00 PM Results for this FRESH WORK WRAPPER LAYER procedure are i n the results section. documented in this encounter Results UA macroscopic with reflex to micro (09/03/2006 9:00 PM FRESH WORK WRAPPER LAYER) Component Value Ref Test Analysis Performed At [facility] Range Method Time Signature Source Unspecified MISYS Urine Color Urine Yellow MISYS Appearance Urine Clear MISYS Glucose Urine Negative NEG MISYS mg/dL Bilirubin Urine Negative NEG MISYS Ketones Urine Negative NEG MISYS mg/dL Specific [place] >1.030 1.003 - MISYS Urine 1.035 Blood Urine Negative NEG MISYS pH Urine 5.5 5.0 - MISYS 7.0 pH Protein Albumin Negative NEG MISYS Urine mg/dL Urobilinogen 0.2 0.2 - MISYS Urine 1.0 EU/dL Nitrite Urine Negative NEG MISYS Leukocyte Negative NEG MISYS Esterase Urine Specimen Anatomical Collection Method Collection Time Receive d Time (Source) Location / / Volume Laterality 09/03/2006 9:00 PM 7 8:59 FRESH WORK WRAPPER LAYER PM FRESH WORK WRAPPER LAYER Yakov Mcgarry MD LAB - URINE ORDERABLES Performing Organization Address [facility] Phon e Number MISYS Urine culture (09/03/2006 9:00 PM FRESH WORK WRAPPER LAYER) [facility] Method Time Signature Specimen Unspecified MISYS Description Urine Culture Micro 50 to 100,000 MISYS colonies/mL Multiple species present, probable perineal Comment: contamination. Micro Report Status FINAL [id number] MISYS Specimen Anatomical Collection Method Collection Time Receive d Time (Source) Location / / Volume Laterality 09/03/2006 9:00 PM 7 8:59 FRESH WORK WRAPPER LAYER PM FRESH WORK WRAPPER LAYER Yakov Mcgarry MD LAB - MICRO GENERAL ORDERABL ES Performing Organization Address City/[facility] Phon e Number MISYS documented in this encounter Visit Diagnoses Not on filedocumented in this encounter
--- OUTSIDE RECORDS SUMMARY | 2022-04-10 14:46 | XMS_ITS | Encounter Summary ---
:1980 Author Organization [facility] Address [address] [place] [address]. [place] [address] Care Team Providers Name Role Phone Unavailable Primary Care Provider Unavailable Reason for Visit Reason Comments Urgent Care Laceration puncture wound on the bottom of left foot a couple hours ago. Was cleaning basement and steppe d on a nail that went through the ruber sole of her shoe. 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 Having pain OBJECTIVE: BP 112/80 Pulse 88 Temp (Src) 98 (Oral) Resp 16 Exam; bottom of foot there is puncture wound ASSESSMENT: 1.puncture wound PLAN: 1. see orders 2. Rtc pmd documented in this encounter Nursing Notes 03/20/2007 8:00 PM CDT >> LINDSEY ADAMS 03/20/2007 8:33 pm Patient presents with: Urgent Care Laceration - puncture wound on the bottom of left foot a couple hours ago. Was cleaning basement and stepped on a nail that went through the ruber sole of her shoe. Pt. Is not sure when she had her last Td. Initial BP 112/80 Pulse 88 Temp (Src) 98 (Oral) Resp 16 There is no height or weight on file to calculate BMI.. BP completed using cuff size: eladio Lindsey Shruthi Adams documented in this encounter Plan of Treatment Not on filedocumented as of this encounter Procedures Procedure Name Priority Date/Time Associated Diagnosis Comme [facility] LT X-RAY FOOT Routine 03/20/2007 10:24 PM Open Wound Of Fo ot Results for this 3+ VW CDT procedure are i n the results section. documented in this encounter Results LT X-RAY FOOT 3+ VW (03/20/2007 10:24 PM CDT) Anatomical Region Laterality Modality Other Impressions 03/20/2007 10:24 PM CDT REPORT OF OUTSIDE FILMS FROM [facility] ??CLINIC MUKUL REID ?: 82 LEFT FOOT: ??03/20/07 FINDINGS: ??Negative. ?? There had been a puncture wound to the sole of the foot but there is no foreign body. ?? Pineda Hatch M.D./ulysses D/T: ??03/23/07 Ordering MD/Provider Initial Interpretat ion: Normal/Negative. Electronically filed by Yashira Duron ??03/20/2007 ??10:24 PM . Dong Hopkins MD GENERAL IMAGING documented in this encounter Visit Diagnoses Diagnosis Open wound of foot except toe(s) alone, without mention of complication - Primary documented in this encounter
--- OUTSIDE RECORDS SUMMARY | 2022-04-10 14:46 | XMS_ITS | Encounter Summary ---
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 Within the last 2 months patient has lost approximately 10 pounds by eliminating pop, eliminating junk food and switching to whole grains. Patient's breakfast consists of cereal and 1% milk; lunch is a bologna sandwich; dinner is usually meat, vegetable, potato and possibly a salad. Patient consumes at least 100oz of water daily. Patient rarely dines out. Patient does not feel she eats emotionally. Patient exercises 6 to 7 days a week. NUTRITION DIAGNOSIS: Pt with excessive oral food/juaquin intake related to intake of calorically dense foods/juaquin at meals and/or snacks as evidenced by BMI of 53 INTERVENTION: Provided written guidelines for gastric bypass surgery Provided weight loss suggestions Explained diet changes that would occur after surgery Discussed necessity for chewable multi vit/min supplement, Emery with Vit D, B12, Vitamin D, iron, vitamin C supplements Emphasized Importance of diet and lifestyle modifications GOALS: Chose lean meats 3 different foods at a meal (specifically lunch) Eat slow and chew well UNDERSTANDING OF NECESSARY LIFESTYLE CHANGES REQUIRED AFTER SURGERY: good EXPECTED COMPLIANCE: fair to good FOLLOW UP: 3 month structured weight loss program per insurance requirements TIME SPENT WITH PATIENT: 55 minutes [Signature] Author: ELMO GARDUNO (RD, LD) [Signed 11:34] documented in this encounter Plan of Treatment Not on filedocumented as of this encounter Visit Diagnoses Not on filedocumented in this encounter
--- OUTSIDE RECORDS SUMMARY | 2022-04-10 14:47 | XMS_ITS | Encounter Summary ---
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 LIPASE STAT 04/04/2005 2:30 AM Results f or this CDT procedure are i n the results section. HCG QUALITATIVE STAT 04/04/2005 2:30 AM Result s for this CDT procedure are i n the results section. COMPREHENSIVE STAT 04/04/2005 2:30 AM Results for this METABOLIC PANEL CDT procedure ar e in the results section. UA MACROSCOPIC WITH STAT 04/04/2005 2:25 AM Re sults for this REFLEX TO MICRO CDT procedure ar e in the results section. URINE MICROSCOPIC EXAM Routine 04/04/2005 2:25 AM Results for this CDT procedure are i n the results section. documented in this encounter Results (ABNORMAL) Hemogram differential and platelet (04/04/2005 2:30 AM CDT) Component Value Ref Test Analysis Performed At Patholo gist Range Method Time Signature MCV 89 78 - 100 MISYS fl MCH 30.0 26.5 - MISYS 33.0 pg MCHC 33.9 32.0 - MISYS 36.0 g/dL RDW 12.9 10.0 - MISYS 15.0 % WBC 16.5 (H) 4.0 - MISYS 11.0 10e9/L RBC Count 4.57 3.8 - MISYS 5.2 10e12/L Hemoglobin 13.7 11.7 - MISYS 15.7 g/dL Hematocrit 40.5 35.0 - MISYS 47.0 % % Neutrophils 89 (H) 40 - 75 MISYS % % Lymphocytes 9 (L) 20 - 48 MISYS % % Monocytes 2 0 - 12 % MISYS Platelet Count 332 150 - MISYS 450 10e9/L Absolute 14.7 (H) 1.6 - MISYS Neutrophil 8.3 10e9/L Absolute 1.5 0.8 - MISYS Lymphocytes 5.3 10e9/L Absolute 0.3 0.0 - MISYS Monocytes 1.3 10e9/L Diff Method Manual MISYS Differential Specimen Anatomical Collection Method Collection Time Receive d Time (Source) Location / / Volume Laterality 04/04/2005 2:30 AM 5 2:02 CDT AM CDT Norman Dominguez MD LAB - BLOOD ORDERABLES Performing Organization Address City/State/ZIP Code Phon e Number MISYS HCG qualitative (04/04/2005 2:30 AM CDT) [facility] gist Method Time Signature HCG Qualitative Negative NEG MISYS Serum Specimen Anatomical Collection Method Collection Time Receive d Time (Source) Location / / Volume Laterality 04/04/2005 2:30 AM 5 2:02 CDT AM CDT Norman Dominguez MD LAB - BLOOD ORDERABLES Performing Organization Address City/State/ZIP Code Phon e Number MISYS (ABNORMAL) Comprehensive metabolic panel (04/04/2005 2:30 AM CDT) Analysis Performed At [facility] logist Time Signature Sodium 141 133 - 144 MISYS mmol/L Potassium 3.9 3.4 - 5.3 MISYS mmol/L Chloride 105 94 - 109 MISYS mmol/L Carbon Dioxide 24 20 - 32 MISYS mmol/L Glucose 133 (H) 60 - 110 MISYS mg/dL Urea Nitrogen 9 5 - 24 MISYS mg/dL Creatinine 0.75 0.60 - MISYS 1.30 mg/dL GFR Estimate >80 >60 MISYS mL/min/1.7 m2 GFR Estimate If >80 >60 MISYS Black mL/min/1.7 m2 Calcium 9.4 8.5 - 10.4 MISYS mg/dL AST 75 (H) 0 - 45 U/L MISYS Protein Total 7.5 6.0 - 8.2 MISYS g/dL Anion Gap 13 6 - 17 MISYS mmol/L Albumin 4.1 3.3 - 4.6 MISYS g/dL ALT 64 (H) 0 - 50 U/L MISYS Alkaline 95 40 - 150 MISYS Phosphatase U/L Bilirubin Total 0.3 0.2 - 1.3 MISYS mg/dL Specimen Anatomical Collection Method Collection Time Receive d Time (Source) Location / / Volume Laterality 04/04/2005 2:30 AM 5 2:02 CDT AM CDT Norman Dominguez MD LAB - BLOOD ORDERABLES Performing Organization Address City/State/ZIP Code Phon e Number MISYS Lipase (04/04/2005 2:30 AM CDT) P athologist Signature Lipase 57 20 - 250 U/L MISYS Specimen Anatomical Collection Method Collection Time Receive d Time (Source) Location / / Volume Laterality 04/04/2005 2:30 AM 5 2:02 CDT AM CDT Norman Dominguez MD LAB - BLOOD ORDERABLES Performing Organization Address City/State/ZIP Code Phon e Number MISYS (ABNORMAL) UA macroscopic with reflex to micro (04/04/2005 2:25 AM CDT) Component Value Ref Test Analysis Performed At Patholo gist Range Method Time Signature Source Unspecified MISYS Urine Color Urine Yellow MISYS Appearance Urine Slightly Cloudy MISYS Glucose Urine Negative NEG MISYS mg/dL Bilirubin Urine Negative NEG MISYS Ketones Urine Negative NEG MISYS mg/dL Specific [place] >1.030 1.001 - MISYS Urine 1.035 Blood Urine Negative NEG MISYS pH Urine 6.5 5.0 - MISYS 7.0 pH Protein Albumin Trace (A) NEG MISYS Urine mg/dL Urobilinogen 0.2 0.2 - MISYS Urine 1.0 EU/dL Nitrite Urine Negative NEG MISYS Leukocyte Negative NEG MISYS Esterase Urine Specimen Anatomical Collection Method Collection Time Receive d Time (Source) Location / / Volume Laterality 04/04/2005 2:25 AM 5 2:02 CDT AM CDT Norman Dominguez MD LAB - URINE ORDERABLES Performing Organization Address [facility] Phon e Number MISYS (ABNORMAL) Microscopic exam urine (04/04/2005 2:25 AM CDT) [facility] Signature WBC Urine O - 2 0 - 2 /HPF MISYS RBC Urine O - 2 0 - 2 /HPF MISYS Squamous Many (A) FEW /LPF MISYS Epithelial /LPF Urine Specimen Anatomical Collection Method Collection Time Receive d Time (Source) Location / / Volume Laterality 04/04/2005 2:25 AM 5 2:46 CDT AM CDT Norman Dominguez MD LAB - URINE ORDERABLES Performing Organization Address City/[facility] Phon e Number MISYS documented in this encounter Visit Diagnoses Not on filedocumented in this encounter
--- OUTSIDE RECORDS SUMMARY | 2022-04-10 14:47 | XMS_ITS | Encounter Summary ---
:1980 Author Organization [facility] Address [address] [place] [address]. [place] [address] Care Team Providers Name Role Phone Unavailable Primary Care Provider Unavailable Encounter Details Date Type Department Care Team Description 04/06/2005 Results Only [facility] Yudith Martinez [facility] EMERGENCY PHY [facility] Results [address] 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 documented in this encounter Results SONO ABDOMEN LIMITED (04/06/2005 7:31 AM CDT) Specimen (Source) Anatomical Collection Method Collection Time Re ceived Time Location / / Volume Laterality 04/06/2005 7:31 AM CDT Impressions RADIOLOGY RESULTS - 04/06/2005 11:37 AM CDT ULTRASOUND OF THE ABDOMEN ?04/06/05 ?? HISTORY: ??Right upper quadrant pain. ?? FINDINGS: ??The gallbladder is somewhat contracted but shows no evidence of stones. ??Common duct is nor mal measuring 3 mm in size. ?? Liver, head and body of the pancreas, an d right kidney are normal. ?? Left kidney and spleen are not evaluated since these were previously visualized. ??Aorta and inferior vena ca va are normal. ? CONCLUSION: Normal ultrasonic study of the abdomen. Yudith Martinez SPECIAL IMAGING STUDIES Performing Organization Address City/State/ZIP Code Phon e Number RADIOLOGY RESULTS documented in this encounter Visit Diagnoses Not on filedocumented in this encounter
--- OUTSIDE RECORDS SUMMARY | 2022-04-10 14:47 | XMS_ITS | Encounter Summary ---
:1980 Author Organization [facility] Address [address] [place] [address]. 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 documented in this encounter Results SONO ABDOMEN COMPLETE (04/04/2005 3:18 AM CDT) Specimen (Source) Anatomical Collection Method Collection Time Re ceived Time Location / / Volume Laterality 04/04/2005 3:18 AM CDT Impressions RADIOLOGY RESULTS - 04/05/2005 10:00 AM CDT ABDOMINAL ULTRASOUND ?? CLINICAL DATA: ??Abdominal pain. ? FINDINGS: ??There is some sludge within the gallbladder. ??There is no evidence for cholelithiasis or biliary o bstruction. ??The gallbladder wall is not thickened. ??Common duct meliton sures 3 mm. ??The liver, pancreas, spleen, both kidneys, aorta an d IVC are normal in appearance. ?? IMPRESSION: ??Small amount of gallbladde r sludge. ??No evidence for cholelithiasis or biliary obstruction. ? ?Preliminary report was faxed by Dr. Vuong. ?? Norman Dominguez MD SPECIAL IMAGING STUDIES Performing Organization Address City/State/ZIP Code Phon e Number RADIOLOGY RESULTS documented in this encounter Visit Diagnoses Not on filedocumented in this encounter
--- OUTSIDE RECORDS SUMMARY | 2022-04-10 14:47 | XMS_ITS | Encounter Summary ---
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 HISTORY OF PRESENT ILLNESS: Mukul Dennis is a 24-year-old female who presents to the emergency department via private vehicle with a triage time of 1:50 a.m. The patient states that she has had epigastric abdominal pain, which is 8/10 in intensity, along with nausea and multiple episodes of vomiting since about 8 p.m. last night, approximately five hours ago. This is apparently not resolving. She has also had about six loose stools daily for the past two weeks without any signs of melena or hematochezia. No tarry stools. The patient is unsure if she is . She is sexually active with a last menstrual period of February 10, 2005. She statesthat she is just getting over Strep throat. Of note, the patient has had a previous history of gastritis and was recently seen in the emergency department on March 26, 2005, with complaints of lower sternal and epigastric pain. She received a chest pain workup, which was negative. PAST MEDICAL HISTORY: Significant for gastroesophageal reflux disease, depression, and a previous right knee surgery. ALLERGIES: Codeine, which causes nausea. MEDICATIONS: Citalopram, oral control pills, and Prilosec. SOCIAL HISTORY: The patient is a nonsmoker. She denies alcohol or illicit drug use. 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 REVIEW OF SYSTEMS: General: No fevers or chills. Gastrointestinal: As detailed in the history of present illness. All other systems are negative. PHYSICAL EXAMINATION: Vital signs: Temperature is 97.8 oral, blood pressure 149/93, pulse 82, respirations 16, and oxygen saturations are 99% on room air. HEAD: Normocephalic, atraumatic. EYES: Extraocular movements are intact. Pupils equal, round and reactive to light with no icterus or injection. ENT: The patient has poor dentition. Moist mucous membranes. NECK: Supple. LYMPHATIC: No cervical lymphadenopathy. CHEST: Nontender to palpation. RESPIRATORY: Clear to auscultation bilaterally. CARDIOVASCULAR: Regular rate and rhythm without murmur, gallop or rub. ABDOMEN: Obese. She is tender in the epigastric area. No voluntary guarding or rebound. The right upper quadrant of the abdomen is slightly tender to palpation. Cuenca's sign is equivocal to negative. No left upper quadrant tenderness or organomegaly. The bilateral lower abdominal segments are nontender. Bowel sounds are positive. GENITOURINARY: No costovertebral angle tenderness to percussion. MUSCULOSKELETAL: Warm and well perfused with no peripheral cyanosis, clubbing or edema. SKIN: Warm and dry, no rashes. NEUROLOGIC: Nonfocal. LABORATORY AND DIAGNOSTIC: A urinalysis is yellow and slightly cloudy with a specific gravity of greater than 1.030, indicating some dehydration. The pH is 6.5, trace of albumin, negative nitrites and leukocyte esterase. Microscopic examination reveals 0 to 2 WBCs, 0 to 2 RBCs, and many squamous epithelial cells, indicating contamination. A CBC shows a white count elevated at 16.5, hemoglobin of 13.7, hematocrit of 40.5, and platelet count of 332. Manual differential cell count is slightly left shifted. A qualitative hCG level is negative. Comprehensive metabolic panel shows a glucose of 133. Electrolytes and kidney function tests normal. Liver function tests show a normal alkaline phosphatase, but ALT is 64 and AST is 75. Lipase is normal at 57. Complete abdominal ultrasound shows some sludge within the gallbladder per the radiologist's read. No evidence for cholelithiasis or biliary obstruction. The gallbladder wall is not thick, and the common bile duct is normal in caliber at 3 mm. The liver, pancreas, spleen, both kidneys, and the IVC are normal in appearance. The impression is that there is a small amount of gallbladder sludge. EMERGENCY DEPARTMENT COURSE: The nursing notes were reviewed. The patient had an IV saline lock placed. She was given a liter of normal saline IV bolus. She was given Zofran ODT 8 mg by mouth for nausea with good relief, and morphine sulfate 4 mg IV for pain with good relief. The patient's elevated white count may well be due to acute pain response. She appears to have some gallbladder sludging and biliary colic. An exacerbation of reflux esophagitis or gastric ulcer may be a possibility as well. The patient is already on Prilosec, and she was instructed to increase her dose from 20 mg daily to 20 mg twice daily. She should embark on a low-fat diet. She was given a referral to Dr. Lamb[facility] clinic, to call them tomorrow for a consult visit this week. She is prescribed Percocet 1 to 2 every 4 to 6 hours p.r.n. pain, #20 were prescribed, as well as Compazine 25 mg suppositories, 1 per rectum every 12 hours as needed for nausea, #6 were prescribed. She was given a slip to be off work tomorrow. She was discharged to home. IMPRESSION: Biliary colic. PLAN: Discharge to home with medications and follow up as previously described. NORMAN GOLDEN MD 121:4 MT: otis Document: [id number] [place], [place] Name: MUKUL DENNIS EMERGENCY ROOM ENCOUNTER Page 3 of 3 LCN: ER DSC: 04/06/2005 [place], [place] Name: MUKUL DENNIS MR#: : Admit Date: -43 1980 04/06/2005 Doctor: NORMAN GOLDEN MD EMERGENCY ROOM ENCOUNTER Page 1 of 3 documented in this encounter Plan of Treatment Not on filedocumented as of this encounter Visit Diagnoses Not on filedocumented in this encounter
--- OUTSIDE RECORDS SUMMARY | 2022-04-10 14:47 | XMS_ITS | Encounter Summary ---
:1980 Author Organization [facility] Address [address] [place] [address]. 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 HISTORY OF PRESENT ILLNESS: Mukul Dennis is a 24-year-old female who presents to the emergency department complaining of toothache, left upper mandible. The patient states that her tooth broke off three days ago and the patient has had increasing pain since that time. The patient denies any difficulty swallowing, fever, chills or stiff neck. PAST MEDICAL HISTORY: Status post gallbladder surgery and status post appendectomy. MEDICATIONS: 1. Prilosec. 2. Celexa. ALLERGIES: Codeine. PHYSICAL EXAMINATION: VITAL SIGNS: Temperature 97.1, pulse 45, respiratory rate 16, blood pressure 123/85. GENERAL: Well-developed, well-nourished female, awake and alert. SKIN: Warm and dry. EYES: Pupils equal, round, and reactive to light. Extraocular movements are intact. EARS: TMs are clear. NOSE AND THROAT: Poor dentition throughout with multiple missing teeth. #12 is broken off at the gumline. No swelling of the buccal or subungual spaces. NECK: Supple. NODES: No anterior or posterior cervical adenopathy. CHEST: Clear to auscultation. CARDIOVASCULAR: S1, S2. IMPRESSION: #12 dentalgia. PLAN: 1. Percocet #20. 2. Pen-VK, 500 mg q.i.d. times 10 days. 3. Ibuprofen, 600 mg t.i.d. times 10 days. 4. Follow up DDS today. LUCIANO ANDERSON MD MT: nr Document: [id number] [place], [place] Name: MUKUL DENNIS EMERGENCY ROOM ENCOUNTER Page 2 of 2 LCN: ER DSC: 04/29/2005 [place], [place] Name: MUKUL DENNIS MR#: : Admit Date: -43 1980 04/29/2005 Doctor: LUCIANO ANDERSON MD EMERGENCY ROOM ENCOUNTER Page 1 of 2 documented in this encounter Plan of Treatment Not on filedocumented as of this encounter Visit Diagnoses Not on filedocumented in this encounter
--- OUTSIDE RECORDS SUMMARY | 2022-04-10 14:47 | XMS_ITS | Encounter Summary ---
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 HISTORY OF PRESENT ILLNESS: The patient is a 24-year-old female who states she was here in the Emergency Department on with the same symptoms. She was told that she had sludge in her gallbladder at that time. She is scheduled to see [facility] on 04-09-05. She seemed to be okay until 4:00 a.m. this morning when she developed pain in her epigastrium into the chest and right upper quadrant, similar in quality to what she had experienced two days ago. Associated with vomiting. She had hot flashes prior to the vomiting. She has had some diarrhea for several days to weeks, over about six stools a day. The patient denies any fever or chills. She denies any difficulty breathing or shortness of breath. She denies any urinary dysuria or frequency. She describes it as a sharp stabbing pain. No relieving factors. REVIEW OF SYSTEMS: The rest of the patient's systems were reviewed and were negative except as noted above. PAST MEDICAL HISTORY: Significant for some reflux. MEDICATIONS: Prilosec, Celexa, Meryl control pills, Darvocet, Compazine suppositories. ALLERGIES: CODEINE AND VICODIN which cause nausea. She has tolerated morphine in the past without difficulty. SOCIAL HISTORY: The patient does not smoke. She is . PHYSICAL EXAMINATION: Temperature is 97.1, pulse 97, respirations 20, blood pressure 123/87, O2 sat 98% on room air. In general, the patient is an obese female laying on her cart. HEENT examination shows the head is atraumatic, normocephalic. Her pupils are equal and reactive to light. Oral mucosa is moist. She has extremely poor dentition. Neck is supple. Heart is regular rate and rhythm. No murmurs, rubs or gallops. Her lungs are clear. Her abdomen is obese, soft, and nondistended, with diffuse tenderness throughout the abdomen, but especially in the epigastric and right upper quadrant she has more significant pain. Extremities show no edema or deformities. Neurologically she is alert with no focal or neurological deficits. LABORATORY RESULTS: White count is 14.0 which is down from when it was 16.5. Hemoglobin is 13.1, platelets 277, sodium 140, potassium 3.5, chloride 106, CO2 27, glucose 112, BUN 8, creatinine 0.74, alkaline phosphatase is 100, on 04-04-05 it was 95. AST is 159, on 04-04-05 it was 75. Bilirubin is 0.3 which is unchanged. ALT is 107 up from 64. Lipase is normal at 71. Ultrasound of the right upper quadrant shows a contracted gallbladder, no stones, no inflammatory changes are noted. MEDICAL DECISION MAKING: This is a 24-year-old female with right upper quadrant pain and recently diagnosed with gallbladder sludge. She certainly sounds like biliary colic versus cholecystitis. The ultrasound report here today shows most likely this is a biliary colic type of a picture. Her white count has improved, but she obviously had some dysfunction given the fact that her LFT's are increasing. The patient was given a liter of normal saline here in the Emergency Department, 4 mg of Zofran IV which was repeated times one, and morphine 4 mg IV. She reports feeling better. I did discuss with the patient the nature of gallbladder disease and it appears to be that she is having another attack of biliary colic, but there is no evidence at this time of cholecystitis, or need for inpatient management. DISPOSITION: The patient is discharged home to follow up with [facility] as scheduled on 04-09-05. Return if fever, intractable pain or vomiting. Prescription was given for Dilaudid 2 mg tablets, 10 dispensed, as needed for pain as well as instructions to continue using her Compazine suppositories. She should have a clear liquid diet today and avoid any fatty or greasy foods in the future. DIAGNOSIS: Biliary colic. [id number] _ WESTON MARTINEZ MD MT: ?? Document: [id number] [place], [place] Name: MUKUL DENNIS EMERGENCY ROOM ENCOUNTER Page 2 of 2 LCN: ER DSC: 04/06/2005 [place], [place] Name: MUKUL DENNIS MR#: : Admit Date: -43 1980 04/06/2005 Doctor: WESTON MARTINEZ MD EMERGENCY ROOM ENCOUNTER Page 1 of 2 documented in this encounter Plan of Treatment Not on filedocumented as of this encounter Visit Diagnoses Not on filedocumented in this encounter
--- OUTSIDE RECORDS SUMMARY | 2022-04-10 14:47 | XMS_ITS | Encounter Summary ---
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 POST-OPERATIVE DIAGNOSIS: Biliary colic and abnormal appendix by CT. OPERATION: Laparoscopic appendectomy, laparoscopic cholecystectomy. SURGEON: Dulce Maria Buck M.D. ANESTHESIA: General. PREOP MEDICATION: Cefotan 1 gram IV. INDICATION: The patient is a 24-year-old female who has had classic episodes of biliary colic located in the right upper quadrant. In addition, she had a CT during herworkup which shows an appendix which is slightly prominent consistent with chronic appendicitis. She presents now for laparoscopy appendectomy and cholecystectomy. PROCEDURE: The patient is brought to the operating room and placed in supine position. The abdomen is prepped and draped in the usual sterile fashion. Initial incision is made in the infraumbilical location, and the abdomen is entered using a mini laparotomy approach. Ez trocar is then positioned and a pneumoperitoneum is established. The remaining trocars are placed under direct vision - a 10 mm at the subxiphoid, two 5 mm at the right anterior axillary line, and later on a lower midline 10 mm. The first four trocars are utilized, and inspection of the right upper quadrant identifies a contracted gallbladder. Dissection commenced at the gallbladder neck - cystic duct junction. The cystic duct was quite small, freed circumferentially, triply clipped and divided. Cystic artery is directly posterior and is freed circumferentially, triply clipped and divided. The gallbladder is then removed from the gallbladder bed using cutting cautery. The gallbladder is extracted using an Endocatch bag, and the right upper quadrant is inspected. The bed is dry and the clips are in good position. The right upper quadrant is irrigated with the suction irrigating device and returns are clear. Attention is then turned to the right lower quadrant. A fifth trocar was placed at that time, and the area of the cecum and appendix was visualized. The appendix is quite elongated with bands which angulated at the mid portion. There is no acute inflammation. The mesoappendix is taken down by blunt dissection and clipping and dividing the mesenteric vessels. The base of the appendix is thus skeletonized, and the remainder of the mesoappendix has been disconnected. The base is then divided with an EndoGIA stapler. The stump is inspected and secure. The appendix was then removed using an Endocatch bag. Sites were then inspected for hemostasis and infiltrated with 0.25% Marcaine plain. They were removed under direct vision, and the sites were closed using interrupted 0 Vicryl for the infraumbilical and lower midline incisions, 4-0 subcuticular Monocryl for all skin sites. The patient tolerated the procedure well and was transferred to Recovery in good condition. Estimated blood loss was less than 20 cc. INTRAOPERATIVE FINDINGS: Chronic cholecystitis and appendix grossly normal, excised. [id number]_ DULCE MARIA BUCK MD MT: Document: [id number] [place], [place] Name: MR#: MUKUL DENNIS [id number] OPERATIVE REPORT Page 2 of 2 LCN: [place] DSC: 04/18/2005 [place], [place] Name: MR#: MUKUL DENNIS -43 : Procedure Date: Account #: 1980 04/18/2005 [id number] Doctor: DULCE MARIA BUCK MD OPERATIVE REPORT Page 1 of 2 documented in this encounter Plan of Treatment Not on filedocumented as of this encounter Visit Diagnoses Not on filedocumented in this encounter
--- OUTSIDE RECORDS SUMMARY | 2022-04-10 14:47 | XMS_ITS | Encounter Summary ---
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 PLATELET COUNT Routine 04/06/2005 6:50 AM Results for this CDT procedure are i n the results section. LIPASE Routine 04/06/2005 6:50 AM Results f or this CDT procedure are i n the results section. COMPREHENSIVE Routine 04/06/2005 6:50 AM Results for this METABOLIC PANEL CDT procedure ar e in the results section. documented in this encounter Results (ABNORMAL) Comprehensive metabolic panel (04/06/2005 6:50 AM CDT) Analysis Performed At Patho logist Time Signature Sodium 140 133 - 144 [facility] mmol/L Potassium 3.5 3.4 - 5.3 [facility] mmol/L Chloride 106 94 - 109 [facility] mmol/L Carbon Dioxide 27 20 - 32 [facility] mmol/L Glucose 112 (H) 60 - 110 [facility] mg/dL Urea Nitrogen 8 5 - 24 [facility] mg/dL Creatinine 0.74 0.60 - [facility] 1.30 mg/dL GFR Estimate >80 >60 [facility] mL/min/1.7 m2 GFR Estimate If >80 >60 [facility] Black mL/min/1.7 m2 Calcium 8.7 8.5 - 10.4 [facility] mg/dL AST 159 (H) 0 - 45 U/L [facility] Protein Total 6.4 6.0 - 8.2 [facility] g/dL Anion Gap 7 6 - 17 [facility] mmol/L Albumin 3.4 3.3 - 4.6 [facility] g/dL ALT 107 (H) 0 - 50 U/L [facility] Alkaline 100 40 - 150 [facility] Phosphatase U/L Bilirubin Total 0.3 0.2 - 1.3 [facility] mg/dL Specimen Anatomical Collection Method Collection Time Receive d Time (Source) Location / / Volume Laterality 04/06/2005 6:50 AM 5 8:34 CDT AM CDT Nemesio Costa MD LAB - BLOOD ORDERABLES Performing Organization Address City/State/ZIP Code Phon e Number [facility] (ABNORMAL) Hemogram differential and platelet (04/06/2005 6:50 AM CDT) [facility] gist Method Time Signature MCV 87 78 - 100 [facility] fl MCH 31.0 26.5 - [facility] 33.0 pg MCHC 35.4 32.0 - [facility] 36.0 g/dL RDW 12.1 10.0 - [facility] 15.0 % WBC 14.0 (H) 4.0 - [facility] 11.0 10e9/L RBC Count 4.24 3.8 - 5.2 [facility] 10e12/L Hemoglobin 13.1 11.7 - [facility] 15.7 g/dL Hematocrit 37.0 35.0 - [facility] 47.0 % % Neutrophils 75 40 - 75 % [facility] % Lymphocytes 16 (L) 20 - 48 % [facility] % Monocytes 9 0 - 12 % [facility] Absolute 10.5 (H) 1.6 - 8.3 [facility] Neutrophil 10e9/L Absolute 2.2 0.8 - 5.3 [facility] Lymphocytes 10e9/L Absolute 1.3 0.0 - 1.3 [facility] Monocytes 10e9/L Diff Method Automated [facility] Method Specimen Anatomical Collection Method Collection Time Receive d Time (Source) Location / / Volume Laterality 04/06/2005 6:50 AM 5 8:34 CDT AM CDT Nemesio Costa MD LAB - BLOOD ORDERABLES Performing Organization Address [facility] Phon e Number [facility] Lipase (04/06/2005 6:50 AM CDT) P athologist Signature Lipase 71 20 - 250 U/L [facility] Specimen Anatomical Collection Method Collection Time Receive d Time (Source) Location / / Volume Laterality 04/06/2005 6:50 AM 5 8:34 CDT AM CDT Nemesio Costa MD LAB - BLOOD ORDERABLES Performing Organization Address [facility] Phon e Number [facility] Platelet count (04/06/2005 6:50 AM CDT) P athologist Signature Platelet Count 277 150 - 450 [facility] 10e9/L Specimen Anatomical Collection Method Collection Time Receive d Time (Source) Location / / Volume Laterality 04/06/2005 6:50 AM 5 9:02 CDT AM CDT Nemesio Costa MD LAB - BLOOD ORDERABLES Performing Organization Address [facility] Phon e Number [facility] documented in this encounter Visit Diagnoses Not on filedocumented in this encounter
--- OUTSIDE RECORDS SUMMARY | 2022-04-10 14:48 | XMS_ITS | Encounter Summary ---
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 HEMOGRAM DIFFERENTIAL STAT 03/26/2005 9:45 AM Results for this AND PLATELET CDT procedure are i n the results section. TSH WITH FREE T4 STAT 03/26/2005 9:45 AM Resul ts for this REFLEX CDT procedure are i n the results section. INR STAT 03/26/2005 9:45 AM Results f or this CDT procedure are i n the results section. MYOGLOBIN STAT 03/26/2005 9:45 AM Results f or this CDT procedure are i n the results section. D DIMER QUANTITATIVE STAT 03/26/2005 9:45 AM R esults for this CDT procedure are i n the results section. COMPREHENSIVE STAT 03/26/2005 9:45 AM Results for this METABOLIC PANEL CDT procedure ar e in the results section. documented in this encounter Results Hemogram differential and platelet (03/26/2005 9:45 AM CDT) Patholo gist Method Time Signature MCV 87 78 - 100 M[facility] fl MCH 30.1 26.5 - MISYS 33.0 pg MCHC 34.6 32.0 - MISYS 36.0 g/dL RDW 13.1 10.0 - MISYS 15.0 % WBC 8.4 4.0 - MISYS 11.0 10e9/L RBC Count 4.67 3.8 - 5.2 MISYS 10e12/L Hemoglobin 14.1 11.7 - MISYS 15.7 g/dL Hematocrit 40.6 35.0 - MISYS 47.0 % % Neutrophils 68 40 - 75 % MISYS % Lymphocytes 20 20 - 48 % MISYS % Monocytes 10 0 - 12 % MISYS % Eosinophils 1 0 - 6 % MISYS % Basophils 1 0 - 2 % MISYS Platelet Count 316 150 - 450 MIS[facility] 10e9/L Absolute 5.8 1.6 - 8.3 MIS[facility] Neutrophil 10e9/L Absolute 1.7 0.8 - 5.3 MIS[facility] Lymphocytes 10e9/L Absolute 0.9 0.0 - 1.3 MIS[facility] Monocytes 10e9/L Absolute 0.1 0.0 - 0.7 MIS[facility] Eosinophils 10e9/L Absolute 0.0 0.0 - 0.2 MIS[facility] Basophils 10e9/L Diff Method Automated MISYS Method Specimen Anatomical Collection Method Collection Time Receive d Time (Source) Location / / Volume Laterality 03/26/2005 9:45 AM 5 9:[address] Coates MD LAB - BLOOD ORDERABLES Performing Organization Address City/State/ZIP Code Phon e Number MISYS INR (03/26/2005 9:45 AM CDT) P athologist Signature INR 0.91 0.86 - 1.14 M[facility] Specimen Anatomical Collection Method Collection Time Receive d Time (Source) Location / / Volume Laterality 03/26/2005 9:45 AM 5 9:[address] Coates MD LAB - BLOOD ORDERABLES Performing Organization Address City/State/ZIP Code Phon e Number MISYS D dimer quantitative (03/26/2005 9:45 AM CDT) P athologist Signature D Dimer <0.2 0.0 - 0.50 [facility] ugFEU/mL Specimen Anatomical Collection Method Collection Time Receive d Time (Source) Location / / Volume Laterality 03/26/2005 9:45 AM 5 9:[address] Coates MD LAB - BLOOD ORDERABLES Performing Organization Address City/State/ZIP Code Phon e Number MISYS (ABNORMAL) Comprehensive metabolic panel (03/26/2005 9:45 AM CDT) Analysis Performed At Patho logist Time Signature Sodium 140 133 - 144 MIS[facility] mmol/L Potassium 3.6 3.4 - 5.3 MIS[facility] mmol/L Chloride 104 94 - 109 M[facility] mmol/L Carbon Dioxide 27 20 - 32 [facility] mmol/L Glucose 117 (H) 60 - 110 [facility] mg/dL Urea Nitrogen 9 5 - 24 M[facility] mg/dL Creatinine 0.80 0.60 - MISYS 1.30 mg/dL GFR Estimate >80 >60 MISYS mL/min/1.7 m2 GFR Estimate If >80 >60 MIS[facility] Black mL/min/1.7 m2 Calcium 9.1 8.5 - 10.4 MISYS mg/dL AST 19 0 - 45 U/L M[facility] Protein Total 7.0 6.0 - 8.2 MISYS g/dL Anion Gap 9 6 - 17 MIS[facility] mmol/L Albumin 3.8 3.3 - 4.6 MIS[facility] g/dL ALT 20 0 - 50 U/L MIS[facility] Alkaline 86 40 - 150 [facility] Phosphatase U/L Bilirubin Total 0.2 0.2 - 1.3 M[facility] mg/dL Specimen Anatomical Collection Method Collection Time Receive d Time (Source) Location / / Volume Laterality 03/26/2005 9:45 AM 5 9:[address] Coates MD LAB - BLOOD ORDERABLES Performing Organization Address City/State/ZIP Code Phon e Number MISYS Troponin I (03/26/2005 9:45 AM CDT) athologist Signature Troponin I <0.07 0.00 - 0.40 M[facility] ug/L Specimen Anatomical Collection Method Collection Time Receive d Time (Source) Location / / Volume Laterality 03/26/2005 9:45 AM 5 9:[address] Coates MD LAB - BLOOD ORDERABLES Performing Organization Address [facility] Phon e Number MISYS Myoglobin (03/26/2005 9:45 AM CDT) P athologist Signature Myoglobin 28 <120 ug/L MISYS Specimen Anatomical Collection Method Collection Time Receive d Time (Source) Location / / Volume Laterality 03/26/2005 9:45 AM 5 9:[address] Coates MD LAB - BLOOD ORDERABLES Performing Organization Address City/[facility] Phon e Number MISYS TSH with free T4 reflex (03/26/2005 9:45 AM CDT) P athologist Signature TSH 3.02 0.4 - 5.0 MISYS mU/L Specimen Anatomical Collection Method Collection Time Receive d Time (Source) Location / / Volume Laterality 03/26/2005 9:45 AM 5 9:[address] Coates MD LAB - BLOOD ORDERABLES Performing Organization Address City/[facility] Code Phon e Number MISYS documented in this encounter Visit Diagnoses Not on filedocumented in this encounter
--- OUTSIDE RECORDS SUMMARY | 2022-04-10 14:48 | XMS_ITS | Encounter Summary ---
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 documented in this encounter Results Rapid strep screen (11/23/2004 8:28 PM CDT) Component Value Ref Test Analysis Performed At [facility] Range Method Time Signature Specimen Throat MISYS Description Micro Report FINAL [id number] MISYS Status Rapid Strep A POSITIVE: Group MISYS Screen A Streptococcal antigen detected by immunoassay. Specimen Anatomical Collection Method Collection Time Receive d Time (Source) Location / / Volume Laterality 11/23/2004 8:28 PM 5 8:29 CDT PM CDT Physician No Ref-Primary LAB - MICRO GENERAL ORDERABL ES Performing Organization Address City/State/ZIP Code Phon e Number MISYS documented in this encounter Visit Diagnoses Not on filedocumented in this encounter
--- OUTSIDE RECORDS SUMMARY | 2022-04-10 14:48 | XMS_ITS | Encounter Summary ---
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 HISTORY OF PRESENT ILLNESS: Mukul Dennis is a 22-year-old woman who complains of a two-day history of sore throat. She states it is painful to swallow, but she is tolerating oral liquids. She reports a fever to as high as 101 degrees at home. She has also had a dry cough. She does not know of any recent Strep contacts. PAST MEDICAL HISTORY: Otherwise healthy. MEDICATIONS: None. ALLERGIES: Codeine. PHYSICAL EXAMINATION: GENERAL: The patient is alert. She is nontoxic-appearing. She demonstrates no stridor. VITAL SIGNS: Temperature 99.9, pulse 125, respirations 18, blood pressure 141/92. HEENT: Oral cavity/oropharynx - demonstrates moderate to marked bilateral tonsillar hypertrophy with moderate thick, white exudate present. There is no focal swelling or uvular deviation. Mucous membranes are moist. NECK: Supple. There is bilateral anterior cervical tender adenopathy. HEART: Heart sounds are regular without murmurs, rubs or gallops. LUNGS: Clear bilaterally. LABORATORY: Rapid Strep screen is negative. EMERGENCY DEPARTMENT COURSE: The patient is being treated empirically for Strep given the high clinical suspicion. She was given 1.2 million units of LA Bicillin, 10 mg of IM Decadron, and 1 gram of p.o. penicillin. IMPRESSION: Streptococcal pharyngitis. DISPOSITION: The patient is discharged home. She is to take Darvocet and/or ibuprofen if needed for pain. She should drink plenty of fluids. She should return if worse and follow up with her primary care physician next week if not better. CAPRICE SHEPHERD MD MT: [facility] Document: [id number] [place], [place] Name: MUKUL DENNIS EMERGENCY ROOM ENCOUNTER Page 3 of 2 LCN: ER DSC: 10/19/2003 [place], [place] Name: MUKUL DENNIS MR#: : Admit Date: [id number] 1980 10/19/2003 Doctor: CAPRICE SHEPHERD MD EMERGENCY ROOM ENCOUNTER Page 1 of 2 CHIP MAKER documented in this encounter Plan of Treatment Not on filedocumented as of this encounter Visit Diagnoses Not on filedocumented in this encounter
--- OUTSIDE RECORDS SUMMARY | 2022-04-10 14:48 | XMS_ITS | Encounter Summary ---
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 UA MACROSCOPIC WITH Routine 09/15/2004 12:20 Resu lts for this REFLEX TO MICRO AM AIRPORT DRIVER procedure ar e in the results section. documented in this encounter Results HCG qualitative urine (09/15/2004 12:20 AM AIRPORT DRIVER) athologist Signature HCG Qual Urine Negative NEG MISYS Specimen Anatomical Collection Method Collection Time Receive d Time (Source) Location / / Volume Laterality 09/15/2004 12:20 09/15/2004 AM AIRPORT DRIVER 12:28 AM AIRPORT DRIVER Douglas Duron MD LAB - URINE ORDERABLES Performing Organization Address City/State/ZIP Code Phon e Number MISYS (ABNORMAL) UA macroscopic with reflex to micro (09/15/2004 12:20 AM AIRPORT DRIVER) [facility] gist Method Time Signature Source Midstream MISYS Urine Color Urine Yellow MISYS Appearance Urine Clear MISYS Glucose Urine Negative NEG mg/dL MISYS Bilirubin Urine Negative NEG MISYS Ketones Urine Trace (A) NEG mg/dL MISYS Specific Allen 1.015 1.001 - MISYS Urine 1.035 Blood Urine Negative NEG MISYS pH Urine 5.5 5.0 - 7.0 MISYS pH Protein Albumin Negative NEG mg/dL MISYS Urine Urobilinogen 0.2 0.2 - 1.0 MISYS Urine EU/dL Nitrite Urine Negative NEG MISYS Leukocyte Negative NEG MISYS Esterase Urine Specimen Anatomical Collection Method Collection Time Receive d Time (Source) Location / / Volume Laterality 09/15/2004 12:20 09/15/2004 AM AIRPORT DRIVER 12:28 AM AIRPORT DRIVER Douglas Duron MD LAB - URINE ORDERABLES Performing Organization Address City/State/ZIP Code Phon e Number MISYS documented in this encounter Visit Diagnoses Not on filedocumented in this encounter
--- OUTSIDE RECORDS SUMMARY | 2022-04-10 14:48 | XMS_ITS | Encounter Summary ---
:1980 Author Organization [facility] Address [address] [place] [address]. 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 HISTORY OF PRESENT ILLNESS: Mukul Dennis is a 23-year-old female who presents to us for evaluation because of pain in the left back upper tooth. This has been going on for about a day. No trauma, no trouble swallowing, and she is not spitting up blood or pus. She states she has a lot of dental problems. No headache. PAST MEDICAL HISTORY: Significant for poor dentition. MEDICATIONS: Naprosyn. ALLERGIES: Vicodin makes her vomit. SOCIAL AND FAMILY HISTORY: Unremarkable. REVIEW OF SYSTEMS: Significant for left upper tooth pain getting worse. No swelling, no vomiting, no spitting up blood or pus, no headache, and no trauma. Review of systems otherwise negative. PHYSICAL EXAMINATION: Blood pressure 136/88, pulse 101, respirations 18, afebrile. In general, tired, in no distress. NECK: Supple. No meningismus. Oropharynx shows poor dentition. She does have tenderness about tooth number sixteen. There is no abscess along the gingiva and no significant swelling in the buccal space. LUNGS: Clear. HEART: Regular. ABDOMEN: Soft. ASSESSMENT: This is a 23-year-old female with a toothache, tooth number sixteen. No evidence of abscess, no evidence of Marin's angina. PLAN: The patient needs to see an oral surgeon. I told her to call Dr. Dow's office of oral surgery tomorrow. I will prescribe Darvocet for pain, one to two p.o. q6h p.r.n. She states she has had Darvocet in the past and not had trouble. I will also prescribe for an antibiotic, 500 mg p.o. t.i.d. for seven days. She was told to return to the ER in the interim with any problems or concerns. VLAD WHITTINGTON MD MT: Document: [id number] [place], [place] Name: MUKUL DENNIS EMERGENCY ROOM ENCOUNTER Page 2 of 2 LCN: ER DSC: 12/11/2003 [place], [place] Name: MUKUL DENNIS MR#: : Admit Date: [id number] 1980 12/11/2003 Doctor: VLAD WHITTINGTON MD EMERGENCY ROOM ENCOUNTER Page 1 of 2 documented in this encounter Plan of Treatment Not on filedocumented as of this encounter Visit Diagnoses Not on filedocumented in this encounter
--- OUTSIDE RECORDS SUMMARY | 2022-04-10 14:48 | XMS_ITS | Encounter Summary ---
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 Her symptoms began last with an episode of nausea, vomiting, and diarrhea. This was three days prior to arrival in the Emergency Department. Her nausea and vomiting have gone away, however, she still has a couple of episodes a day of diarrhea. Her diarrhea is loose, watery, without blood. She has no abdominal pain. No fevers, chills, or sweats. Yesterday or two days prior to arrival she started feeling shortness of breath and painful ache sensation in the mid chest. This area of discomfort radiates to her back. It feels like someone is sitting on her chest. It is painful and she is rating it as an 8/10. It is also pleuritic. Associatedwith this she has no cough No fevers, chills, or sweats. This is the first time she has ever had this. She is not a smoker. She is not on control pills. She has no personal or family history of DVT. She has had no recent immobilization of her lower extremities. No recent injuries of her lower extremities. She has never worn a cast, splint, or brace on her lower extremities. No car rides, plane rides, or train rides. No recent surgeries. No known cancer. She states that her symptoms are better when she lays down in bed and when she sits up. She does not get shortness of breath on exertion. She has used inhalers in the distant past with bronchitis but none recently. She has no known history of asthma. No history in her family of early coronary disease. PAST MEDICAL HISTORY: None. MEDICATIONS: None. ALLERGIES: CODEINE. SOCIAL HISTORY: She is here with her boyfriend. No smoking, drugs, or alcohol use. FAMILY HISTORY: Noncontributory. REVIEW OF SYSTEMS: All other systems negative. PHYSICAL EXAMINATION: Well-appearing, morbidly obese female resting comfortably in no acute distress, speaking in full sentences. Blood pressure 130/90. Pulse 107. Respirations 18. Temperature 98.9, sating 99% on room air. HEENT: Normocephalic, atraumatic. Pupils are equal and reactive. Sclera and conjunctiva are pink and clear. Posterior oropharynx with clear mucous membranes. NECK: Supple. CHEST: Clear to auscultation bilaterally. No pain to palpation bilateral chest. ABDOMEN: Abdomen was soft, nontender, nondistended without rebound, tenderness, or guarding. EXTREMITIES: Extremities are atraumatic without clubbing, cyanosis or edema. No pain to palpation in bilateral calves. NEURO: She was intact. LABORATORY AND DIAGNOSTIC DATA: Chest x-ray was clear. Chest CT scan did not show any evidence of P-E. EKG was within normal limits. There was no evidence of right-sided heart strain. Urinalysis was normal. Urine test was normal. B. Natruretic Peptide was normal. Troponin was normal at less than 0.07. Myoglobin normal at 24. White count mildly elevated at 12.2. D-dimer less than 0.2. Normal basic metabolic panel. EMERGENCY DEPARTMENT COURSE: I went over my differential diagnosis. I considered P-E. She does have pleuritic chest pain and shortness of breath. However, she has no obvious risk factors except for obesity. Moreover, she has a normal chest CT scan and a normal D-dimer. I also considered pleurisy. She had what sounds like some sort of gastroenteritis picture and now has some pleuritic chest pain and some mild dyspnea. Certainly this is very likely what is going on today. I considered costochondritis versus myocardial infarction. However, her EKG, trop, and myoglobin are normal in the face of two days of symptoms. Moreover, she has no risk factors for coronary disease. Pneumonia was excluded. Pericarditis was also considered. However, she had no rub on exam with a normal EKG. In the end, I think it is safe for her to be treated as an outpatient. I will have her take [id number] Ibuprofen and Tylenol, as well as a limited number of Percocet on a prn basis. I will have her follow-up with her primary care physician on a one-week basis prn. Returning if she has increasing chest pain, shortness of breath. DIAGNOSIS: Pleurisy. PLAN: As above. DANIELE RODRIGUEZ MD MT: [facility] Document: [id number] [place], [place] Name: MUKUL DENNIS EMERGENCY ROOM ENCOUNTER Page 3 of 2 LCN: ER DSC: 09/14/2004 [place], [place] Name: MUKUL DENNIS MR#: : Admit Date: -43 1980 09/14/2004 Doctor: DANIELE RODRIGUEZ MD EMERGENCY ROOM ENCOUNTER Page 1 of 2 S AND SERVICE SPECIALIST documented in this encounter Plan of Treatment Not on filedocumented as of this encounter Visit Diagnoses Not on filedocumented in this encounter
--- OUTSIDE RECORDS SUMMARY | 2022-04-10 14:48 | XMS_ITS | Encounter Summary ---
:1980 Author Organization [facility] Address [address] [place] [address]. 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 HISTORY OF PRESENT ILLNESS: Mukul Dennis is a 23 year-old female who sustained an inversion injury to her right ankle. She has had increasing pain over the right side of the ankle with difficulty bearing weight. She denies any injuries elsewhere. PAST MEDICAL HISTORY: The patient is reportedly otherwise healthy. MEDICATIONS: None. ALLERGIES: Codeine and Vicodin. REVIEW OF SYSTEMS: As per HPI, all other systems are negative. SOCIAL HISTORY: The patient is single and lives in [place]. PHYSICAL EXAMINATION: The patient is alert and resting quietly. She does not appear to be severely uncomfortable. She is afebrile. Initial blood pressure is 132/87 with a pulse rate of 102. Her right ankle reveals tender swelling and mild ecchymosis over the lateral malleolus. She has no tenderness or swelling over the medial malleolus, Achilles tendon, calcaneus, proximal fibula or metatarsals. She has a negative drawer sign. She has good peripheral pulses and normal distal sensation. Skin is intact. EMERGENCY DEPARTMENT COURSE: After initial evaluation, the patient was given ibuprofen 800 mg orally. X-rays were obtained of the ankle and show no fracture. DISCHARGE INSTRUCTIONS: 1. Tigre bandage, cold packs and elevation. 2. Crutches to be used as needed with weight bearing as tolerated. 3. Ibuprofen 800 mg every six to eight hours with food. 4. Air splint when able to bear weight. 5. Follow up with primary physician or orthopedist for persistent symptoms. FINAL DIAGNOSIS: Right ankle sprain. GAGAN ALICEA MD 101:0 MT: Document: [id number] [place], [place] Name: MUKUL DENNIS EMERGENCY ROOM ENCOUNTER Page 3 of 2 LCN: ER DSC: 09/17/2004 [place], [place] Name: MUKUL DENNIS MR#: : Admit Date: [id number] 1980 09/17/2004 Doctor: GAGAN ALICEA MD EMERGENCY ROOM ENCOUNTER Page 1 of 2 documented in this encounter Plan of Treatment Not on filedocumented as of this encounter Visit Diagnoses Not on filedocumented in this encounter
--- OUTSIDE RECORDS SUMMARY | 2022-04-10 14:48 | XMS_ITS | Encounter Summary ---
:1980 Author Organization [place] Address [address] [place] [address]. 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 documented in this encounter Results X-RAY ANKLE 3+ VW (09/17/2004 2:35 PM LEASES AND LAND SUPERVISOR) Specimen (Source) Anatomical Collection Method Collection Time Re ceived Time Location / / Volume Laterality 09/17/2004 2:35 PM LEASES AND LAND SUPERVISOR Impressions Pacs, Data Conversion - 09/20/2004 1:57 PM LEASES AND LAND SUPERVISOR RIGHT ANKLE ?? Swelling about the lateral malleolus. ?? The ankle mortise is symmetrical. ??No osseous findings are n oted. ?? Gagan Alicea MD GENERAL IMAGING documented in this encounter Visit Diagnoses Not on filedocumented in this encounter
--- OUTSIDE RECORDS SUMMARY | 2022-04-10 14:48 | XMS_ITS | Encounter Summary ---
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 documented in this encounter Results CHEST X-RAY 2 VW (03/26/2005 10:20 AM CDT) Specimen (Source) Anatomical Collection Method Collection Time Re ceived Time Location / / Volume Laterality 03/26/2005 10:20 AM CDT Impressions RADIOLOGY RESULTS - 03/27/2005 10:34 AM CDT TWO VIEW CHEST ?? HISTORY: ??Chest pain. ?? FINDINGS: ??Negative. Rd Coates MD GENERAL IMAGING Performing Organization Address City/State/ZIP Code Phon e Number RADIOLOGY RESULTS documented in this encounter Visit Diagnoses Not on filedocumented in this encounter
--- OUTSIDE RECORDS SUMMARY | 2022-04-10 14:48 | XMS_ITS | Encounter Summary ---
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 documented in this encounter Results EKG 12 LEAD (03/26/2005 9:38 AM CDT) Component Value Ref Range Test Analysis Performed Pathologis t Method Time At Signature Ventricular Rate 70 BPM RADIOLOGY RESULTS Atrial Rate 70 BPM RADIOLOGY RESULTS OH Interval 164 ms RADIOLOGY RESULTS QRS Duration 88 ms RADIOLOGY RESULTS QT 408 ms RADIOLOGY RESULTS QTc 440 ms RADIOLOGY RESULTS P [place] 45 degrees RADIOLOGY RESULTS R AXIS 59 degrees RADIOLOGY RESULTS T [place] 48 degrees RADIOLOGY RESULTS Interpretation Sinus rhythm RADIOLOGY ECG Normal ECG RESULTS When compared with ECG of 14-SEP-2004 22:20, No significant change was found Specimen Anatomical Collection Method Collection Time Receive d Time (Source) Location / / Volume Laterality 03/26/2005 9:38 AM 5 CDT 11:51 AM CDT Transcripton Interface ECG ORDERABLES Performing Organization Address City/State/ZIP Code Phon e Number RADIOLOGY RESULTS documented in this encounter Visit Diagnoses Not on filedocumented in this encounter Care Teams Machine Rug Cleaner Relationship Specialty Start Date End Date Nemesio Costa MD PCP - General 05/30/11 03/22/20 documented as of this encounter
--- OUTSIDE RECORDS SUMMARY | 2022-04-10 14:48 | XMS_ITS | Encounter Summary ---
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 HISTORY OF PRESENT ILLNESS: Mukul Dennis is a 23-year-old white female who comes to the Emergency Department accompanied by her . She has fractured her right lower first molar (#30) and now complains of ongoing throbbing pain with some soft tissue swelling in the area. 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 She has had this tooth previously filled and now has a fracture through the entire tooth, down into the gum, with severe gingivitis, and early abscess formation. With this she has had much pain and it got much worse this evening. She has had some soft tissue swelling and localized tenderness and warmth, although has had no systemic fever. She has been rather nauseated with the same. SOCIAL HISTORY: The patient neither drinks nor smokes. She is here with her . ALLERGIES: Codeine and Vicodin, which causes nausea. MEDICATIONS: None currently. Last tetanus immunization less than 10 years ago. FAMILY HISTORY: Bad teeth and odontodysgenesis. REVIEW OF SYSTEMS: All other systems are negative. PHYSICAL EXAMINATION: VITAL SIGNS: Temperature 98.4, respirations 18, pulse 99, blood pressure 133/93. GENERAL: The patient is alert and oriented x3 and appropriate. She is extremely uncomfortable, with her painful right jaw. HEENT: The patient has severe caries with multiple areas needing attention. She is particularly involved in the right lower first molar, #30, which is cracked down through the root and has had the posterior aspect sheared off, leaving exposed dentin, which is extremely uncomfortable for the patient. There is marked gingivitis as well as a possible early root canal infection as this patient is quite tender with even the slightest touching of the tooth. Some secondary adenopathy is present on the right side of the neck. Airway is otherwise adequate. CHEST: Clear. CV: Normal sinus rhythm without murmurs. ABDOMEN: Morbidly obese. The patient weighs 260 pounds at 5 feet 7 inches. EXTREMITIES: Otherwise normal with minimal dependent edema. Distal CMS is intact. PROCEDURE: The patient requested a dental block. This was done. She was prepped in the usual fashion with Cetacaine followed by a short- acting block with 1% lidocaine with 1:10,000 epinephrine, 2 cc placed both intraorally at the lingular nerve and also posterolaterally at the posterior mental nerve. This resulted in excellent analgesia for the patient. She also was treated with Marcaine 0.5% with 1:20,000 epinephrine dental block. With this the patient had fairly good relief and should have some fairly shelter comfort over the next four to six hours. She tolerated the procedure well with no bleeding noted. There appears to be some pus around the tooth as well. The patient likely needs immediate dental attention for this problem. In the meantime she will start on Percocet #20 1 to 2 q.6h. along with Pen-Vee K 500 mg q.6h. #30. The patient was advised to use warm saline gargle or dilute Listerine, and also Oragel or Orabase, most concentrated, topically. The patient was given a copy of her chart and told to follow up with [facility] as soon as possible within the next day or two. EMERGENCY DEPARTMENT DIAGNOSIS: 1. Root canal infection #30 with severe dental caries and fractured tooth. 2. Procedure note: Marcaine and lidocaine dental block. CAPRICE WHEATLEY MD MT: rashard Document: [id number] [place], [place] Name: MUKUL DENNIS EMERGENCY ROOM ENCOUNTER Page 2 of 2 LCN: ER DSC: 02/13/2004 [place], [place] Name: MUKUL DENNIS MR#: : Admit Date: 1980 02/13/2004 Doctor: CAPRICE WHEATLEY MD EMERGENCY ROOM ENCOUNTER Page 1 of 2 Caprice Wheatley - 02/13/2004 12:00 AM CDT Report already typed and printed. This one should be deleted. CAPRICE WHEATLEY MD MT: ?? Document: [id number] [place], [place] Name: MUKUL DENNIS EMERGENCY ROOM ENCOUNTER Page 2 of 1 LCN: ER DSC: 02/13/2004 [place], [place] Name: MUKUL DENNIS MR#: : Admit Date: 1980 02/13/2004 Doctor: CAPRICE WHEATLEY MD EMERGENCY ROOM ENCOUNTER Page 1 of 1 documented in this encounter Plan of Treatment Not on filedocumented as of this encounter Visit Diagnoses Not on filedocumented in this encounter
--- OUTSIDE RECORDS SUMMARY | 2022-04-10 14:48 | XMS_ITS | Encounter Summary ---
:1980 Author Organization [place] Address [address] [place] [address]. 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 documented in this encounter Results X-RAY KNEE 1 OR 2 VIEW (05/29/2004 6:26 PM CDT) Specimen (Source) Anatomical Collection Method Collection Time Re ceived Time Location / / Volume Laterality 05/29/2004 6:26 PM CDT Impressions Pacs, Data Conversion - 05/31/2004 1:13 PM CDT 2-VIEW RIGHT KNEE ?? CLINICAL DATA: ?? Pain. ?? FINDINGS: ?? Negative exam. ?? Vlad Carmona MD GENERAL IMAGING documented in this encounter Visit Diagnoses Not on filedocumented in this encounter
--- OUTSIDE RECORDS SUMMARY | 2022-04-10 14:48 | XMS_ITS | Encounter Summary ---
:1980 Author Organization [place] Address [address] [place] [address] Care Team Providers Name Role Phone Unavailable Primary Care Provider Unavailable Encounter Details Date Type Department Care Team Description 09/14/2004 Historic Results INTERFACED REPORT [place] [address] Social History Tobacco Use Types Packs/Day Years Used Date Never Assessed Sex Assigned at Date Recorded Female 06/29/2021 12:12 PM MEDICATION AID documented as of this encounter Plan of Treatment Not on filedocumented as of this encounter Procedures Procedure Name Priority Date/Time Associated Comments Diagnosis TROPONIN I Routine 09/14/2004 10:40 Results for this PM MEDICATION AID procedure are i n the results section. B TYPE NATRIURETIC Routine 09/14/2004 10:40 Resul ts for this PEPTIDE PM MEDICATION AID procedure are i n the results section. HEMOGRAM DIFFERENTIAL Routine 09/14/2004 10:40 Re sults for this AND PLATELET PM MEDICATION AID procedure are i n the results section. PLATELET COUNT Routine 09/14/2004 10:40 Results f or this PM MEDICATION AID procedure are i n the results section. MYOGLOBIN Routine 09/14/2004 10:40 Results for this PM MEDICATION AID procedure are i n the results section. D DIMER QUANTITATIVE Routine 09/14/2004 10:40 Res ults for this PM MEDICATION AID procedure are i n the results section. BASIC METABOLIC PANEL Routine 09/14/2004 10:40 Re sults for this PM MEDICATION AID procedure are i n the results section. documented in this encounter Results Basic metabolic panel (09/14/2004 10:40 PM MEDICATION AID) P athologist Signature Sodium 143 133 - 144 [place] mmol/L Potassium 3.5 3.4 - 5.3 [place] mmol/L Chloride 104 94 - 109 [place] mmol/L Carbon Dioxide 25 20 - 32 [place] mmol/L Glucose 105 60 - 110 [place] mg/dL Urea Nitrogen 10 5 - 24 [place] mg/dL Creatinine 0.74 0.60 - [facility] 1.30 mg/dL GFR Estimate >80 >60 [facility] mL/min/1.7 m2 GFR Estimate If >80 >60 [facility] Black mL/min/1.7 m2 Calcium 8.7 8.5 - 10.4 [facility] mg/dL Anion Gap 14 6 - 17 [place] mmol/L Specimen Anatomical Collection Method Collection Time Receive d Time (Source) Location / / Volume Laterality 09/14/2004 10:40 09/14/2004 PM MEDICATION AID 10:49 PM MEDICATION AID Douglas Duron MD LAB - BLOOD ORDERABLES Performing Organization Address City/State/ZIP Code Phon e Number MIS[place] D dimer quantitative (09/14/2004 10:40 PM MEDICATION AID) P athologist Signature D Dimer <0.2 0.0 - 0.50 [place] ugFEU/mL Specimen Anatomical Collection Method Collection Time Receive d Time (Source) Location / / Volume Laterality 09/14/2004 10:40 09/14/2004 PM MEDICATION AID 10:49 PM MEDICATION AID Douglas Duron MD LAB - BLOOD ORDERABLES Performing Organization Address City/State/ZIP Code Phon e Number MISYS (ABNORMAL) Hemogram differential and platelet (09/14/2004 10:40 PM MEDICATION AID) Patholo gist Method Time Signature MCV 87 78 - 100 [place] fl MCH 28.8 26.5 - [facility] 33.0 pg MCHC 33.1 32.0 - [place] 36.0 g/dL RDW 11.3 10.0 - [place] 15.0 % WBC 12.2 (H) 4.0 - [facility] 11.0 10e9/L RBC Count 4.74 3.8 - 5.2 [facility] 10e12/L Hemoglobin 13.7 11.7 - [facility] 15.7 g/dL Hematocrit 41.2 35.0 - [place] 47.0 % % Neutrophils 58 40 - 75 % [facility] % Lymphocytes 33 20 - 48 % [place]IS[facility] % Monocytes 8 0 - 12 % [place] % Eosinophils 1 0 - 6 % [place] % Basophils 0 0 - 2 % [facility] Absolute 6.9 1.6 - 8.3 [place] Neutrophil 10e9/L Absolute 4.1 0.8 - 5.3 [place] Lymphocytes 10e9/L Absolute 1.0 0.0 - 1.3 [place] Monocytes 10e9/L Absolute 0.2 0.0 - 0.7 [place] Eosinophils 10e9/L Absolute 0.1 0.0 - 0.2 [place] Basophils 10e9/L Diff Method Automated [facility] Method Specimen Anatomical Collection Method Collection Time Receive d Time (Source) Location / / Volume Laterality 09/14/2004 10:40 09/14/2004 PM MEDICATION AID 10:49 PM MEDICATION AID Douglas Durno MD LAB - BLOOD ORDERABLES Performing Organization Address City/State/ZIP Code Phon e Number [facility] Myoglobin (09/14/2004 10:40 PM MEDICATION AID) athologist Signature Myoglobin 24 <120 ug/L [place] Specimen Anatomical Collection Method Collection Time Receive d Time (Source) Location / / Volume Laterality 09/14/2004 10:40 09/14/2004 PM MEDICATION AID 10:49 PM MEDICATION AID Douglas Duron MD LAB - BLOOD ORDERABLES Performing Organization Address City/[facility]/ZIP Code Phon e Number M[facility] Troponin I (09/14/2004 10:40 PM MEDICATION AID) P athologist Signature Troponin I <0.07 0.00 - 0.40 [place] ug/L Specimen Anatomical Collection Method Collection Time Receive d Time (Source) Location / / Volume Laterality 09/14/2004 10:40 09/14/2004 PM MEDICATION AID 10:49 PM MEDICATION AID Douglas Duron MD LAB - BLOOD ORDERABLES Performing Organization Address City/State/ZIP Code Phon e Number [place] Platelet count (09/14/2004 10:40 PM MEDICATION AID) P athologist Signature Platelet Count 354 150 - 450 [place] 10e9/L Specimen Anatomical Collection Method Collection Time Receive d Time (Source) Location / / Volume Laterality 09/14/2004 10:40 09/14/2004 PM MEDICATION AID 10:57 PM MEDICATION AID Douglas Duron MD LAB - BLOOD ORDERABLES Performing Organization Address City/State/ZIP Code Phon e Number [facility] Brain naturiuretic peptide nt pro (09/14/2004 10:40 PM MEDICATION AID) P athologist Signature BNP 10 5 - 100 [place] pg/mL Specimen Anatomical Collection Method Collection Time Receive d Time (Source) Location / / Volume Laterality 09/14/2004 10:40 09/14/2004 PM MEDICATION AID 11:22 PM MEDICATION AID Douglas Duron MD LAB - BLOOD ORDERABLES Performing Organization Address City/State/ZIP Code Phon e Number MISYS documented in this encounter Visit Diagnoses Not on filedocumented in this encounter
--- OUTSIDE RECORDS SUMMARY | 2022-04-10 14:48 | XMS_ITS | Encounter Summary ---
:1980 Author Organization [place] Address [address] [place] [address]. 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 HISTORY OF PRESENT ILLNESS: Mukul Dennis is a 23 year-old female who presents to us for evaluation complaining of pain in the right knee. The patient states that the pain has been there for two days and she thinks it is worse aftershe was raking leaves on a hill three days ago. The pain is worse with walking. It is improved with rest. She denies any tingling down into the toes. She denies any falls. Because of the pain, which has gotten worse, she comes in to be evaluated. PAST MEDICAL HISTORY: Unremarkable. MEDICATIONS: None. ALLERGIES: Codeine and Vicodin. SOCIAL HISTORY: She is . FAMILY HISTORY: Unremarkable. REVIEW OF SYSTEMS: Significant for right knee pain, worse with movement and walking for the last couple of days, no distal numbness or tingling, no fevers or chills, no abdominal pain, no chest pain or shortness of breath. Review of systems otherwise negative. PHYSICAL EXAMINATION: Blood pressure 135/92, pulse 94, respirations 18, temperature 98.1. In general, tired, no distress. Musculoskeletal exam reveals full range of motion at the right hip, right knee, right ankle and right toes. She has a bounding right dorsalis pedis pulse. The right thigh and the right calf are soft and supple, no evidence of DVT, no swelling and no palpable cords. There is a mild amount of edema noted anteriorly about the right knee, just lateral to the patella and inferior to it. There is no redness or warmth to the knee. She does have pain with range of motion but does have full range of motion with coaching. There is no ligamentous laxity to the right knee. She does walk with a slight limp. She is tender over the anterior jointline of the right knee. The left lower extremity is unremarkable. EMERGENCY DEPARTMENT COURSE: Right knee x-rays were unremarkable. The patient was fitted with a knee immobilizer to the right knee as I did suspect a right knee sprain from her recent raking episode. I felt that this would reduce the range of motion about the knee and help with some inflammation. This was fitted under my supervision. There was good CMS after it was fitted. I did refer the patient to an orthopedic surgeon as, if she continues to have significant pain or problems, she may need further imaging such as an MRI. ASSESSMENT: 23 year-old female with a right knee sprain. PLAN: Continue knee immobilizer. Did discuss nonsteroidals such as Motrin 600 to 800 mg every eight hours. She was told to drink lots of fluids and take food with the Motrin. She was referred to Dr. Gillespie of orthopedics and I did prescribe Darvocet one to two PO q. 6h p.r.n. pain. She was told not to drive or drink alcohol with the Darvocet. She was told to return to the Emergency Room in the interim if she has worsening pain or problems. _ VLAD WHITTINGTON MD MT: ?? Document: [id number] [place], [place] Name: MUKUL DENNIS EMERGENCY ROOM ENCOUNTER Page 2 of 2 LCN: ER DSC: 05/29/2004 [place], [place] Name: MUKUL DENNIS MR#: : Admit Date: [id number] 1980 05/29/2004 Doctor: VLAD WHITTINGTON MD EMERGENCY ROOM ENCOUNTER Page 1 of 2 documented in this encounter Plan of Treatment Not on filedocumented as of this encounter Visit Diagnoses Not on filedocumented in this encounter
--- OUTSIDE RECORDS SUMMARY | 2022-04-10 14:48 | XMS_ITS | Encounter Summary ---
:1980 Author Organization [facility] Address [address] [place] [address] Care Team Providers Name Role Phone Unavailable Primary Care Provider Unavailable Encounter Details Date Type Department Care Team Description 10/22/2004 Emergency room Loren Webber MD EMERGENCY PHYSIC BRISA LEON [address] 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 HISTORY OF PRESENT ILLNESS: Mukul Dennis is a 23-year-old female who states she has had a very bad sore throat for the past three days. She has also had a hoarse voice for the past three days. The hoarse voice is becoming worse. She has had a runny nose and nasal congestion for 3-4 days with cough with yellow productive sputum. There are no fevers or chills. No shortness of breath. She states there is some chest burning sensation with coughing but no chest pain when she is not coughing. There is no leg swelling, no vomiting, no headache or neck pain. PAST MEDICAL HISTORY: None. MEDICATIONS: None. ALLERGIES: Codeine causes her to vomit. REVIEW OF SYSTEMS: See history of present illness. Remainder of review of systems are negative. SOCIAL HISTORY: She is a nonsmoker. FAMILY HISTORY: Her father has inactive TB. PHYSICAL EXAMINATION: VITAL SIGNS: Blood pressure 129/84, pulse 106, respiratory rate 18, temperature 99.2 orally. SA02 99% on room air. GENERAL: The patient is awake, alert. Appears comfortable in no acute distress. She has a hoarse voice when she speaks. SKIN: Warm and dry, good color, no rash. HEENT: Pupils are equal, round, reactive to light. Nonicteric. Oral pharynx is clear. Posterior oropharynx is normal. I could see her epiglottis which also appeared normal. TM's are clear. Sinuses are nontender. NECK: Supple. Nontender, no meningeal signs. No adenopathy. CHEST: Clear to auscultation, equal, no wheezing or crackles. CARDIOVASCULAR: Regular rate and rhythm, without murmurs, rubs or gallops. ABDOMEN: Soft and round and nontender. IMPRESSION: Consider the possibility of viral etiology, causing her laryngitis bronchitis and sore throat. I performed a rapid strep which was negative. I did not feel that there was any indication for chest x-ray as she is satting at 99%and no fevers and no shortness of breath and symptom onset only three days ago and a young nonsmoker. I discussed this with the patient. I however, told her to return if she has any shortness of breath or worsening chest discomfort or fevers. I referred her to primary care physician, Dr. Darryl Crowell, to follow-up in one week. Follow-up next week if her symptoms are not improving. She was told to take Sudafed 12 hour in the morning and Theraflu night time at night. She has not tired any over the counter medications. She has not been taking any analgesics or cold medications so far in the illness. She was told to take Tylenol or Ibuprofen to help with her pain. FINAL DIAGNOSIS: 1. Acute bronchitis. 2. Laryngitis. 3. Sore throat. LOREN WEBBER MD CO: [facility] Document: [id number] [place], [place] Name: MUKUL DENNIS EMERGENCY ROOM ENCOUNTER Page 2 of 2 LCN: ER DSC: 10/18/2004 [place], [place] Name: MUKUL DENNIS MR#: : Admit Date: -43 1980 10/18/2004 Doctor: LOREN WEBBER MD EMERGENCY ROOM ENCOUNTER Page 1 of 2 T SHOE SPIKE ASSEMBLER documented in this encounter Plan of Treatment Not on filedocumented as of this encounter Visit Diagnoses Not on filedocumented in this encounter
--- OUTSIDE RECORDS SUMMARY | 2022-04-10 14:48 | XMS_ITS | Encounter Summary ---
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 She had a temperature of 100 this afternoon. The patient denies any nausea or vomiting. She is able to swallow without difficulty, though, it is slightly painful. She has a fullness in her right ear. REVIEW OF SYSTEMS: The rest of the patient's systems are reviewed and are negative. PAST MEDICAL HISTORY: Negative. MEDICATIONS: None. ALLERGIES: CODEINE WHICH CAUSES NAUSEA. SOCIAL HISTORY: The patient denies tobacco use. PHYSICAL EXAMINATION: Temperature is 98.5. Pulse 103. Respirations 20. Blood pressure 127/87. O2 SAT 98% on room air. GENERAL: The patient is alert and cooperative, overweight female. HEENT: Head is normocephalic, atraumatic. Pupils equal, round, and reactive to light. Tympanic membranes are both normal bilaterally with no effusions or erythema. Oropharynx showed some erythema to the posterior pharynx. No exudate present. The uvula is midline. No asymmetric swelling or abscess noted. NECK: Supple. No significant cervical lymphadenopathy. HEART: Regular rate and rhythm. LUNGS: Clear. NEURO: She is alert with no focal neuro deficits. MEDICAL DECISION MAKING: This is a 24-year-old female with sore throat and right ear pain. I think that the ear pain is referred. Rapid strep screen was obtained which was positive. The patient was given a dose of Decadron 10 mg IM, as well as one dose of Bicillin L-A 1.2 million units IM. The patient will be discharged home to follow-up with her primary care physician as needed, and return to the Emergency Department if develops difficulty swallowing her secretions. DIAGNOSIS: Strep pharyngitis. WESTON MARTINEZ MD MT: ksg Document: [id number] [place], [place] Name: MUKUL DENNIS EMERGENCY ROOM ENCOUNTER Page 2 of 2 LCN: ER DSC: 11/23/2004 [place], [place] Name: MUKUL DENNIS MR#: : Admit Date: -43 1980 11/23/2004 Doctor: WESTON MARTINEZ MD EMERGENCY ROOM ENCOUNTER Page 1 of 2 documented in this encounter Plan of Treatment Not on filedocumented as of this encounter Visit Diagnoses Not on filedocumented in this encounter
--- OUTSIDE RECORDS SUMMARY | 2022-04-10 14:48 | XMS_ITS | Encounter Summary ---
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 BETA HEMOLYTIC Routine 10/18/2004 7:00 PM Results for this STREP GROUP A FRAUD PREVENTION ANALYST procedure are in CULTURE the results section. documented in this encounter Results Rapid strep screen (10/18/2004 7:00 PM FRAUD PREVENTION ANALYST) Component Value Ref [facility] Method Time Signature Specimen Throat MISYS Description Micro Report FINAL [id number] MISYS Status Rapid Strep A NEGATIVE: No MISYS Screen Group A streptococcal antigen detected by immunoassay, await Comment: culture report. Specimen Anatomical Collection Method Collection Time Receive d Time (Source) Location / / Volume Laterality 10/18/2004 7:00 PM 5 7:07 FRAUD PREVENTION ANALYST PM FRAUD PREVENTION ANALYST Physician No Ref-Primary LAB - MICRO GENERAL ORDERABL ES Performing Organization Address City/State/ZIP Code Phon e Number MISYS Beta strep group A culture (10/18/2004 7:00 PM FRAUD PREVENTION ANALYST) Component Value Ref Test Analysis Performed At [facility] Range Method Time Signature Specimen Throat MISYS Description Culture Micro No beta MISYS hemolytic Streptococcus Group A isolated Micro Report FINAL [id number] MISYS Status Specimen Anatomical Collection Method Collection Time Receive d Time (Source) Location / / Volume Laterality 10/18/2004 7:00 PM 7:32 FRAUD PREVENTION ANALYST PM FRAUD PREVENTION ANALYST Physician No Ref-Primary LAB - MICRO GENERAL ORDERABL ES Performing Organization Address City/State/ZIP Code Phon e Number MISYS documented in this encounter Visit Diagnoses Not on filedocumented in this encounter
--- OUTSIDE RECORDS SUMMARY | 2022-04-10 14:48 | XMS_ITS | Encounter Summary ---
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 documented in this encounter Results EKG 12 LEAD (09/14/2004 10:20 PM CLIN NURSE) [facility] Method Time Signature Ventricular Rate 96 BPM RADIOLOGY RESULTS Atrial Rate 96 BPM RADIOLOGY RESULTS HI Interval 148 ms RADIOLOGY RESULTS QRS Duration 86 ms RADIOLOGY RESULTS QT 346 ms RADIOLOGY RESULTS QTc 437 ms RADIOLOGY RESULTS P Barton 60 degrees RADIOLOGY RESULTS R AXIS 65 degrees RADIOLOGY RESULTS T Barton 59 degrees RADIOLOGY RESULTS Interpretation SINUS RHYTHM RADIOLOGY ECG NORMAL ECG RESULTS NO PREVIOUS ECGS AVAILABLE Specimen Anatomical Collection Method Collection Time Receive d Time (Source) Location / / Volume Laterality 09/14/2004 10:20 09/15/2004 3:18 PM CLIN NURSE PM CLIN NURSE Transcripton Interface ECG ORDERABLES Performing Organization Address City/State/ZIP Code Phon e Number RADIOLOGY RESULTS documented in this encounter Visit Diagnoses Not on filedocumented in this encounter Care Teams Janitor Helper Relationship Specialty Start Date End Date Nemesio Costa MD PCP - General 05/30/11 03/22/20 documented as of this encounter
--- OUTSIDE RECORDS SUMMARY | 2022-04-10 14:48 | XMS_ITS | Encounter Summary ---
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 HISTORY OF PRESENT ILLNESS: Mukul Dennis is a 24 year old female who comes in with her significant other for further evaluation of chest pain and shortness of breath that started this morning. She describes it as a tight feeling across her entire chest. She also has a little bit of epigastric discomfort but that started after she vomited. This morning when she developed the chest pain and shortness of breath was when she got a little nauseous and vomited. She has had no fevers although she has had some chills. She denies having this previously, however, according to her chart she actually has been here previously for similar complaints. She also states that for the last week or so she has been having some infectious symptoms. It started out with a sore throat and runny nose and then a few days ago started having a cough that has been ongoing and her significant other had symptoms as well. She has no lower extremity pain or swelling. She is not a smoker. She already takes Prilosec for gastroesophageal reflux disease. She has had no recent travel. She has no personal or family history of pulmonary embolism or DVT. She has no family history of coronary artery disease. PAST MEDICAL HISTORY: 1. Gastroesophageal reflux disease. 2. Depression. 3. Previous right knee injury. MEDICATIONS: Celexa, Prilosec and Meryl. ALLERGIES: Codeine which causes nausea. SOCIAL HISTORY: She does not smoke, drink or use any drugs. REVIEW OF SYSTEMS: See history of present illness. All other systems are negative. FAMILY HISTORY: Negative. PHYSICAL EXAMINATION: The patient is afebrile at 96.7. Blood pressure 139/105, heart rate 92 and respiratory rate 18. Satting 96 percent on room air. General: This is a pleasant obese young female in no acute distress. HEENT: Head is atraumatic. Eyes are PERRLA. Sclerae nonicteric. Conjunctivae are normal in appearance. Oropharynx shows extremely poor dentition. Neck: Supple and nontender. Cardiac: Regular rate and rhythm. No murmurs, rubs or gallops are appreciated. Two plus radial and DP pulses bilaterally. Lungs: Clear to auscultation throughout without any rales, crackles or expiratory wheezes. Chest wall is traumatic and nontender. Abdomen: Obese. Positive bowel sounds. Soft. Some mild epigastric tenderness to palpation but no rebound or guarding. Back: Atraumatic and nontender. Extremities: No cyanosis, clubbing or edema. She has no calf tenderness to palpation. She has a negative Homans signs. LABORATORY VALUES AND STUDIES: EKG shows a normal sinus rhythm with a heart rate of 70 with no acute injury pattern and no change compared to September 14, 2004. Chest x-ray shows nothing acute. CBC is completely normal with a white blood cell count of 8.4, hemoglobin 14.1 and platelet count 316,000. INR is 0.91. D-dimer less than 0.2. A comprehensive metabolic panel is completely normal. Troponin less than 0.07. Myoglobin 28. TSH 3.02. EMERGENCY DEPARTMENT COURSE: The patient was seen and examined. She had an IV placed and blood were drawn and sent. She was given morphine IV for pain and Zofran IV for her nausea. She is feeling much better. Differential diagnosis would include coronary ischemia, pulmonary embolism, pleurisy, costochondritis, pneumonia, gastroesophageal reflux disease and biliary colic. Considering she has actually been here previously for chest pain and shortness of breath and at that time I got a CT scan of her chest to rule out PE and that was negative, I suspect that this is not PE. She also has low risk factors for PE and for coronary disease, especially with her young age. Considering her chest pain and shortness of breath started after her infectious symptoms and after having a cough for a few days I suspect this is most likely pleurisy. In any case I do not think she has anything life threatening and I am comfortable discharging her home. She knows to follow up with her primary, Dr. Costa at [facility], in the next day or two or return here if anything worsens. IMPRESSION: Atypical chest pain, likely pleurisy. _ JS COATES MD MT: ?? Document: [id number] [place], [place] Name: MUKUL DENNIS EMERGENCY ROOM ENCOUNTER Page 2 of 2 LCN: ER DSC: 03/26/2005 [place], [place] Name: MUKUL DENNIS MR#: : Admit Date: 0071-28-22-43 1980 03/26/2005 Doctor: JS COATES MD EMERGENCY ROOM ENCOUNTER Page 1 of 2 documented in this encounter Plan of Treatment Not on filedocumented as of this encounter Visit Diagnoses Not on filedocumented in this encounter
--- OUTSIDE RECORDS SUMMARY | 2022-04-10 14:49 | XMS_ITS | Encounter Summary ---
:1980 Author Organization [facility] Address [address] [place] [address] Care Team Providers Name Role Phone Matheus Feliciano M.D. Primary Care Provider [phone] Encounter Details Date Type Department Care Team Description 02/11/2022 Clinical Communication Department of Matheus Chester [facility], [facility], [facility], in [place] [address] [id number] [phone] Social History Tobacco Use Types Packs/Day Years Used Date Smoking Tobacco: Former Cigarettes 0 0 08/1991 - 08/10/1997 Smokeless Tobacco: Never Alcohol Use Standard Drinks/Week Comments No 0 (1 standard drink = 0.6 oz pure alcoho l) Alcohol Habits Answer Date Recorded How often do you have a drink containing alcohol? Never 09/02/2021 How many drinks containing alcohol do you have on a typical Not asked day when you are drinking? How often do you have six or more drinks on one occasion? No t asked Comment: Not asked Social Isolation Answer Date Recorded In a typical week, how many times do you More than three jerman es a week 09/02/2021 talk on the phone with family, friends, or neighbors? How often do you get together with friends More than three t imes a week 09/02/2021 or relatives? How often do you attend latter-day or Never 2021 mandaeism services? Do you belong to any clubs or Yes 09/02/2021 organizations such as latter-day groups, unions, fraternal or athletic groups, or school groups? How often do you attend meetings of the More than 4 times pe r year 09/02/2021 clubs or organizations you belong to? Are you now , , , 09/02/2021 , never or living with a partner? Physical Activity Answer Date Recorded On average, how many days per week do you engage in moderate to 7 days 09/02/2021 strenuous exercise (like walking fast, running, jogging, dancing, swimming, biking, or other activities that cause a light or heavy sweat)? On average, how many minutes do you engage in exercise at th is 100 min 09/02/2021 level? Stress Answer Date Recorded Do you feel stress - tense, restless, nervous, or anxious, N ot at all 09/02/2021 or unable to sleep at night because your mind is troubled all the time - these days? Financial Resource Strain Answer Date Recorded How hard is it for you to pay for the very basics like Not h alicia at all 09/02/2021 food, housing, medical care, and heating? Intimate Partner Violence Answer Date Recorded Within the last year, have you been afraid of your partner o r No 09/02/2021 ex-partner? Within the last year, have you been humiliated or emotionall y No 09/02/2021 abused in other ways by your partner or ex-partner? Within the last year, have you been kicked, hit, slapped, or No 09/02/2021 otherwise physically hurt by your partner or ex-partner? Within the last year, have you been raped or forced to have any No 09/02/2021 kind of sexual activity by your partner or ex-partner? Food Insecurity Answer Date Recorded Within the past 12 months, you worried that your food would Never true 09/02/2021 run out before you got money to buy more. Within the past 12 months, the food you bought just didn't N ever true 09/02/2021 last and you didn't have money to get more. Transportation Needs Answer Date Recorded In the past 12 months, has lack of transportation kept you f rom No 09/02/2021 medical appointments or from getting medications? In the past 12 months, has lack of transportation kept you f rom No 09/02/2021 meetings, work, or getting things needed for daily living? Housing Stability Answer Date Recorded In the last 12 months, was there a time when you were Patien t refused 09/02/2021 not able to pay the mortgage or rent on time? In the last 12 months, how many places have you lived? 1 09/02/2021 In the last 12 months, was there a time when you did No 09/02/[address] to sleep or slept in a half-way (including now)? Education Answer Date Recorded What is the highest level of school you have completed or th e 9th grade 11/26/2020 highest degree you have received? 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 PCP - General Family Medicine 01/09/[address] [place] [address] [place] [address] documented as of this encounter
--- OUTSIDE RECORDS SUMMARY | 2022-04-10 14:49 | XMS_ITS | Encounter Summary ---
:1980 Author Organization [facility] Address [address] [place] [address] Care Team Providers Name Role Phone Matheus Feliciano M.D. Primary Care Provider [phone] Encounter Details Date Type Department Care Team Description 01/15/2022 Ancillary Procedure Department of Plastic and Reconstructive Surgery Social History Tobacco Use Types Packs/Day Years [...] or relatives? How often do you attend methodist or Never 2021 yarsani services? Do you belong to any clubs or Yes 09/02/2021 organizations such as methodist groups, unions, fraternal or athletic groups, or [...] place to sleep or slept in a penitentiary (including now)? Education Answer Date Recorded What is the highest level of school you have completed or th e 9th grade 11/26/2020 highest degree you have received? 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 documented in this encounter Results Abdomen Panniculectomy-Plastic And Recon Surgery Image Exam (01/15/2022 12:00 PM CDT) Specimen (Source) Anatomical Location Collection Method / Collectio n Time Received Time / Laterality Volume Narrative IIMS - 01/15/2022 4:33 PM CDT This order has been created and auto-finalized to support the import of images acquired without order. The clini lise documentation to support these images can be found on the encounter thea t produced images. Provider Not In System IMG NON RAD IMAGING PROCEDUR ES Performing Organization Address City/State/ZIP Code Phon e Number IIMS IIMS NA documented in this encounter Visit Diagnoses Not on filedocumented in this encounter Care Teams Rollway Worker Relationship Specialty Start Date End Date Matheus Feliciano M.B.BRafalS., MDonald. PCP - General Family Medicine 01/09/[address] [place] [address] [place] Velez [id number] documented as of this encounter
--- OUTSIDE RECORDS SUMMARY | 2022-04-10 14:49 | XMS_ITS | Clinical Summary ---
:1980 Author Organization [facility] Address [address] [place] [address] Care Team Providers Name Role Phone Matheus Feliciano M.D. Primary Care Provider [phone] Source Comments Patient records contain information from all sites at [facility]. For routine questions regarding patient records, call [phone] during business hours, M-F 8:00 AM - 5:00 PM Central Time. Record requests for emergency care only can be directed to [phone] at any time.[facility] Allergies Active Allergy Reactions Severity Noted Date Comments Cephalexin Itching, Rash 07/13/2014 Patient has to lerated penicillin and amoxicillin. Medications Medication Sig Dispensed Refills Start Date End Date Status cetirizine (ZyrTEC) Take 1 tablet by 0 11/10/2016 Active 10 mg tablet mouth 2 (two) times a day. cholecalciferol Take 2,000 Units by 0 Active (VITAMIN D3) 50 mcg mouth daily. (2,000 Unit) tablet omega-3 fatty Take 1 g by mouth 0 Active acids-fish oil daily. 1200 mg 300-1,000 mg capsule promethazine Take 25 mg by mouth 0 05/14/2014 Active (PHENERGAN) 25 mg as needed for tablet nausea. MULTIVITAMIN ORAL Take 1 tablet by 0 Active mouth daily. fluticasone Administer 2 sprays 16 g 11 08/26/2018 Active (FLONASE) 50 into each nostril mcg/actuation nasal daily. spray lidocaine (LIDODERM) Place 1 patch on the 90 patch 3 08/26/19 19 Active 5 % skin daily. Apply to intact skin and remove patch after a maximum of 12 hr of application within a 24 hr period capsaicin (ARTHRITIS Apply 1 application 42.5 g 2 9 Active PAIN topically 3 (three) RELIEF,CAPSAIC,) 0.1 times a day as % cream needed (Knee pain). ondansetron ODT Take 1 tablet (4 mg 20 tablet 1 01/23/2021 Active (ZOFRAN-ODT) 4 mg total) by mouth as disintegrating needed for nausea. tablet cyanocobalamin INJECT 1ML 3 mL 3 03/29/2021 Act jennie (VITAMIN B12) 1,000 INTRAMUSCULARLY mcg/mL injection EVERY MONTH ketoconazole Apply 1 application 60 g 3 06/10/2021 Active (NIZORAL) 2 % topically 2 (two) creamIndications: times a day. Apply Pannus Abdominal to abdominal wall. ZOLMitriptan (ZOMIG) Take 1 tablet (5 mg 10 tablet 1 Active 5 mg tablet total) by mouth as needed for migraine. SUMAtriptan Take 1 tablet (100 10 tablet 1 06/24/2021 Active (IMITREX) 100 mg mg total) by mouth tablet as needed for migraine. gabapentin TAKE 3 CAPSULES(900 810 capsule 3 07/08/2021 Active (NEURONTIN) 300 mg MG) BY MOUTH THREE capsule TIMES DAILY levETIRAcetam TAKE 1 TABLET(500 180 tablet 3 07/08/2021 Active (KEPPRA) 500 mg MG) BY MOUTH TWICE tablet DAILY pantoprazole Take 20 mg by mouth 0 07/03/2021 Active (PROTONIX) 20 mg EC 2 (two) times a day. tablet calcium carbonate Take 500 mg of 0 Active (OS-LISE) 1,250 mg calcium by mouth (500 mg calcium) daily. tablet enoxaparin (LOVENOX) Inject 0.4 mL (40 mg 2.8 mL 0 10/07/19 22 Active 40 mg/0.4 mL total) under the injection skin daily for 7 days. atomoxetine TAKE ONE CAPSULE BY 90 capsule 3 12/02/2021 Active (STRATTERA) 80 mg MOUTH EVERY DAY capsule ProAir HFA 90 INHALE 2 PUFFS BY 0 12/13/2021 Active mcg/actuation MOUTH EVERY 4 HOURS inhaler NEEDED FOR COUGH diclofenac sodium Apply 4 g topically 350 g 3 12/27/2021 Active (VOLTAREN) 1 % 4 (four) times a gelIndications: Pain day. Apply to low Low Back Unspecified back. predniSONE Take 1 tablet (20 mg 14 tablet 0 12/27/2021 Active (DELTASONE) 20 mg total) by mouth tabletIndications: daily. Pain Low Back Unspecified Additional Information Patient not taking. Reported on 02/03/2022 [id number] Administer 2 drops into 10 mL 0 12/09 Active (CORTISPORIN) 3.5-10,000-1 each ear 4 (four) times mg/mL-unit/mL-% otic solution a day. Additional Information Patient not taking. Reported on 02/03/2022 propranoloL (INDERAL) 20 mg Take 2 tablets (40 360 tablet 3 Active tabletIndications: Migraine With mg total) by mouth 2 Aura Without Headache (two) times a day. escitalopram (LEXAPRO) 20 mg TAKE 1 TABLET BY 90 tablet 3 12/09 Active tablet MOUTH EVERY DAY oxyCODONE (ROXICODONE) 5 mg Take 1 tablet (5 mg 10 tablet 0 Active immediate release total) by mouth 2 tabletIndications: Chronic (two) times a day Pain/Nonacute Pain Indication: Chronic Pain/Nonacute Pain. Additional Information Patient not taking. Reported on 02/03/2022 trospium (SANCTURA) 20 Take 1 tablet 180 tablet 3 01/29/2022 0 01/29/2023 Active mg tablet (20 mg total) by mouth 2 (two) times a day before breakfast and dinner. albuterol 2.5 mg /3 mL Inhale 2.5 mg. 0 01/22/2022 Active nebulizer solution cyclobenzaprine TAKE 1 30 tablet 1 02/26/2022 Act jennie (FLEXERIL) 10 mg TABLET(10 MG) tabletIndications: BY MOUTH AT Pain Low Back BEDTIME Unspecified NEEDED FOR MUSCLE SPASMS traZODone (DESYREL) 50 TAKE 1 90 tablet 3 02/26/2022 Active mg tablet TABLET(50 MG) BY MOUTH AT BEDTIME NEEDED FOR SLEEP busPIRone (BUSPAR) 30 TAKE 1 180 tablet 3 04/01/2022 Active mg tablet TABLET(30 MG) BY MOUTH TWICE DAILY busPIRone (BUSPAR) 30 TAKE 1 180 tablet 3 05/22/20212021 Discontinued mg tablet TABLET(30 MG) BY MOUTH TWICE DAILY Active Problems Problem Noted Date Pannus Abdominal 08/06/2021 Overview: Added automatically from request for jose montoya [id number] Stone Kidney And Ureteral 01/28/2021 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 Added automatically from request for jose montoya [id number] History Of Falling 01/10/2020 Epilepsy Seizure Not Intractable Without Status Epilep ticus 06/16/2017 Seizure 12/21/2015 Overview: Seizure (SZ) NOS Depression Anxiety 07/13/2014 Overview: Depression Anxiety Attention Deficit Hyperactive Disorder 07/13/2014 Overview: Disorder Attention Deficit Hyperactive ( ADHD) Primary Osteoarthritis Multiple Sites 07/13/2014 Pain Low Back Chronic 07/13/2014 Opioid Moderate Or Severe Use Disorder (Dependence) Un complicated 10/13/2011 Overview: Dependence Drug Opioid NOS Migraine Headache 10/13/2011 Gastric Bypass Status Post Resolved Problems Problem Noted Date Resolved Date Hypothyroidism 07/13/2014 09/13/2020 Morbid Obesity 06/11/2010 09/14/2020 Encounters Date Type Specialty Care Team Description 03/29/2022 Refill [facility] Medicine Jodie, Med Refill [place] Salas.B.B.SRafal, MBob 02/26/2022 Orders Only Pharmacy [facility] 02/25/2022 [facility] Jodie, Communication Matheus Moss M.B.B.S., MBob 02/24/2022 Refill [facility] Medicine Jodie, Med Refill Matheus Moss M.B.B.SRafal, MBob 02/11/2022 [facility] Jodie, Medication P roblem Communication Matheus Moss M.B.B.S., MBob [facility] Prabhu Salas, [place] 02/03/2022 Comprehensive Visit Otorhinolaryngology Trista Arroyo Dysfunction Eustachian Tube Bilateral (Primary Dx); Isaac Malhotra Pain Ear Bilate ral 01/29/2022 Refill [facility], Med Refill Prabhu Salas, Ana 01/27/2022 Clinical Pharmacy Jacob Cardona Rx Prior Communication Authorization (PA DENIED ZOLMITRI PTAN 5 MG TAB) 01/27/2022 Orders Only Pharmacy Jacob Cardona 01/24/2022 Clinical [facility], Communication Prabhu Salas, Ana 01/23/2022 Orders Only Pharmacy Ariane Gregg 01/20/2022 Orders Only Pharmacy [facility] 01/15/2022 Office Visit Plastic Surgery Tamara, Follow Up Isaac Camarena Examination Postoperative V isit (Primary Dx) 01/15/2022 Ancillary Procedure 01/15/2022 Orders Only Pharmacy Che Gray 01/08/2022 Office Visit [facility], Pain Low Taina k Unspecified (Primary Dx); Matheus Moss, Pain Low Back C hronic; Prabhu, Ana Pain Ear Bila teral from Last 3 Months Immunizations Name Administration Dates Next Due Influenza (IM) Preservative Free 04/22/2018 Influenza, Injectable, Quadrivalent 05/02/2019 Influenza, Unspecified 06/04/2016, 05/24/2015, 06/23/2014 SARS-COV-2 (COVID-19) - PFIZER (12 07/17/2021, 12/18/2020, 0 11/22/2020 years or older) Tdap 11/02/2017, 03/20/2007 influenza vaccine quad 10/07/2021, 07/17/2021, 06/21/2020, (FLUZONE/FLUARIX) (6 months and 05/02/2019, 04/20/2018 older)(PF) Family History Medical History Relation Name Comments Coronary artery disease Father Amador Diallo Passed a way 06/14/2016 Diabetes Father Amador Diallo Hyperlipidemia Father Amador Diallo Hypertension Father Amador Diallo Nephrolithiasis Father Amador Diallo PTSD Father Amador Diallo Tuberculosis Father Amador Diallo Heart attack Grandfather Arthritis Mother Renetta Diallo Colon polyps Mother Renetta Diallo precancerous Osteoporosis Mother Renetta Diallo Rheum arthritis Mother Renetta Diallo Vasculitis Mother Renetta Diallo IgA Relation Name Status Comments Father Amador Diallo Grandfather (Age 47) Mother Renetta Diallo Alive Social History Tobacco Use Types Packs/Day Years Used Date Smoking Tobacco: Former Cigarettes 0 0 08/1991 - 08/10/1997 Smokeless Tobacco: Never Tobacco Cessation: Counseling Given: Yes Alcohol Use [...] or relatives? How often do you attend caodaism or Never 2021 faith services? Do you belong to any clubs or Yes 09/02/2021 organizations such as caodaism groups, unions, fraternal or athletic groups, or [...] minutes do you engage in exercise at is 100 min 09/02/2021 level? Stress Answer [...] place to sleep or slept in a skilled nursing (including now)? Education Answer Date Recorded What is the highest level of school you have completed or th e 9th grade 11/26/2020 highest degree you have received? 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 Vital Signs Vital Sign Reading Time Taken Comments Blood Pressure 109/75 01/08/2022 11:55 AM CDT Pulse 80 01/08/2022 11:55 AM CDT Temperature 36 ??C (96.8 ??F) 01/08/2022 11:55 AM CDT Respiratory Rate 16 10/08/2021 10:45 AM VP MARKETING Oxygen Saturation 100% 10/08/2021 10:45 AM VP [employer]ING Inhaled Oxygen Concentration - - Weight 72 kg (158 lb 11.7 oz) 01/08/2022 11:55 AM CDT Height 163.4 cm (5' 4.33) 11/01/2021 12:58 PM CDT Body Mass Index 26.97 11/01/2021 12:58 PM CDT Plan of Treatment Health Maintenance Due Date Last Done Comments HIV Screening 1980 Hepatitis B Vaccines (1 of 1980 3 - 3-dose series) Hepatitis C Screening 1980 Mammogram 1980 Influenza Vaccine (#1) 2022 10/07/2021, 07/17/2021, 06/21/2020, Additional history exists Lipid (Cholesterol) 11/17/2023 11/16/2018 Screening DTaP,Tdap,and Td Vaccines 11/03/2027 11/02/2017, 03/20/2007 (3 - Td or Tdap) COVID-19 Vaccine Completed 07/17/2021, 12/18/2020, 11/22/2020 Depression Screening Completed 12/27/2021 (Annual PHQ-2) Pneumococcal vaccine (0-64 Aged Out No lo nger eligible years) based on patient 's age to complete this topic Procedures Procedure Name Priority Date/Time Associated Diagnosis Comme nts PLASTIC AND RECON Routine 01/15/2022 12:00 PM Res ults for this SURGERY IMAGE EXAM CDT procedure are in the results section. from Last 3 Months Results Abdomen Panniculectomy-Plastic And Recon Surgery Image [...] Code Phon e Number IIMS IIMS NA from Last 3 Months Insurance Payer Benefit Plan / Subscriber ID Effective Phone Address T ype Group Dates [facility] [id number] 2018-Prese [address] Medicaid HMO [place] [address] [place] [address] Care Teams Paperboard Boxes Estimator Relationship Specialty Start Date End Date Matheus Feliciano M.B.BRafalSRafal, MDonald. PCP - General Family Medicine 01/09/[address] [place] [address] [place] [id number]
--- OUTSIDE RECORDS SUMMARY | 2022-04-10 14:49 | XMS_ITS | Encounter Summary ---
:1980 Author Organization [facility] Address [address] [place] [address] Care Team Providers Name Role Phone Matheus Feliciano M.D. Primary Care Provider [phone] Encounter Details Date Type Department Care Team Description 01/24/2022 Clinical Communication Department of Matheus [facility], Prabhu Parmar, Clinic, in [place] [address] [address] [phone] Social History Tobacco Use Types Packs/Day Years [...] or relatives? How often do you attend uatsdin or Never 2021 catholic services? Do you belong to any clubs or Yes 09/02/2021 organizations such as uatsdin groups, unions, fraternal or athletic groups, or [...] place to sleep or slept in a usp (including now)? Education Answer Date Recorded What is the highest level of school you have completed or th e 9th grade 11/26/2020 highest degree you have received? 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 CRafalM.ARafal - 02/04/2022 1:14 PM CDT Gricelda Roberts is eligible for Controlled Substance Prescribing Plan (CSPP). Patient meets the following inclusion criteria: i. Daily use > 3 months ii. Anticipated retirement use If long-term prescribing under the controlled substance plan is something you endorse, you must enroll this patient by completing a CSPP. Name of medication: Oxycodone Strength: 5 mg Frequency: BID Route: Oral Quantity of last refill: 10 Date of last refill: 01/08/2022 The patient would like to obtain the script by: ePrescribe to pharmacy Telephone Encounter - Brannon Wakefield V., C.M.A. - 02/04/2022 1:10 PM CDT SUBJECTIVE CHIEF COMPLAINT / REASON FOR CALL No chief complaint on file. Information Discussed Patient called back and I informed her of the denial for imaging. After short call they were understanding the reasoning for the denial. They did request a refill on the Oxycodone if possible. Medication pended. PLAN Disposition/Recommendation: recommended continue engagement in self-management activities Information/Education: patient/caller able to teach back Caller agreeable to plan of care: yes The following references were used: none Telephone Encounter - Brannon aWkefield C.M.A. - 02/04/2022 12:48 PM CDT Left message for patient to return call to clinic. Does the patient need to speak to nursing? yes Action needed: Inform patient that provider deems scans inappropriate based on recent visit. Telephone Encounter - Matheus Feliciano M.B.B.S., M.D. - 02/03/2022 5:48 PM CDT I do not deem imaging appropriate based on my exam that day. If something has changed, she will needto be re-evaluated. Telephone Encounter - Justine Castro C.M.A. - 01/30/2022 9:28 AM CDT SUBJECTIVE CHIEF COMPLAINT / REASON FOR CALL No chief complaint on file. Information Discussed Patient informed that Dr. Feliciano did not order any imaging nor did his last two notes state anything about imaging being done. Patient informed of following progress note dictation continue with ourcurrent treatment plan including heat, ice, muscle relaxants and topical diclofenac. I have also referred her for physical therapy. Patient expressed frustration on not finding the issue with imaging. Patient informed that blurb writer will send a message to Dr. Feliciano requesting imaging to be done andstaff will call back with provider's response. PLAN Disposition/Recommendation: notified provider and awaiting recommendations Information/Education: not applicable Caller agreeable to plan of care: yes The following references were used: provider Dr. Feliciano. Telephone Encounter - Matheus Feliciano M.B.B.S., M.D. - 01/29/2022 5:54 PM CDT I did not order any imaging. Telephone Encounter - Jennifer Webb - 01/24/2022 11:41 AM CDT Reason for Communication: Pt is calling to schedule her MRI that recommended. There is no active orders for an MRI or X-rays, she couldn't remember which one he suggested but it was of her lower back. Please advise and place orders. Current Can Nursing/Provider leave a detailed message?: no Did the patient refuse triage through Nurse line? (for symptom based concerns): Action Needed: Please put orders in and call Pt once it's done Name of Medication (if relevant): Please send all scheduling replies to scheduling pool. documented in this encounter Plan of Treatment Not on filedocumented as of this encounter Visit Diagnoses Not on filedocumented in this encounter Care Teams Toolroom Keeper Relationship Specialty Start Date End Date Matheus Feliciano M.B.B.S., M.D. PCP - General Family Medicine 01/09/[address] [place] [address] PANKAJ Velez [phone] documented as of this encounter
--- OUTSIDE RECORDS SUMMARY | 2022-04-10 14:49 | XMS_ITS | Encounter Summary ---
:1980 Author Organization [facility] Address [address] [place] [address] Care Team Providers Name Role Phone Matheus Feliciano M.D. Primary Care Provider [phone] Reason for Visit Reason Comments Med Refill Encounter Details Date Type Department Care Team Description 12/31/2021 Refill Department of Neurology in [place] Donis mendoza M.D. Med Refill [place], [place] [address] [facility] [address] [place] [address] [place] [address] [phone] Social History Tobacco Use Types Packs/Day Years [...] or relatives? How often do you attend sabianist or Never 2021 restorationist services? Do you belong to any clubs or Yes 09/02/2021 organizations such as sabianist groups, unions, fraternal or athletic groups, or [...] place to sleep or slept in a custodial (including now)? Education Answer Date Recorded What is the highest level of school you have completed or th e 9th grade 11/26/2020 highest degree you have received? 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 PCP - General Family Medicine 01/09/[address] [place] [address] [place] [address] documented as of this encounter
--- OUTSIDE RECORDS SUMMARY | 2022-04-10 14:49 | XMS_ITS | Encounter Summary ---
:1980 Author Organization [facility] Address [address] [place] [address] Care Team Providers Name Role Phone Matheus Feliciano M.D. Primary Care Provider [phone] Reason for Referral Outpatient (Routine) - Closed Specialty Diagnoses / Procedures Referred By Contact Refer red To Contact Otorhinolaryngology Diagnoses Pain Ear Bilateral [facility]ician[facility] [place] [address] [place] [address] Referral ID Status Reason Start Date Expiration Date Visits V isits Requested Authorized [id number] Closed Specialty 01/08/2022 01/08/2023 1 1 Services Required hysical Therapy (Routine) - Authorized Specialty Diagnoses / Procedures Referred By Contact Refer red To Contact Physical Therapy Diagnoses Pain Low Back Unspecified Matheus Feliciano [facility] M.B.B.S., M.D. & Physical Therapy [address] [facility] [address] [place] [phone] Phone: [phone] Referral ID Status Reason Start Expiration Visits Visits Date Date Requested Authorized [id number] Authorized Service not 01/08/2022 01/08/2023 1 1 available at any [facility] site Reason for Visit Reason Comments Follow-up Back pain continues to be ba d Appointment Request (Routine) - Closed Specialty Diagnoses / Procedures Referred By Contact Refer red To Contact Family Medicine Referral ID Status Reason Start Date Expiration Date Visits Requ ested Visits Authorized [id number] Closed 01/07/2022 01/07/2023 1 1 Encounter Details Date Type Department Care Team Description 01/08/2022 Office Visit Department of [facility] Matheus Feliciano Pain Low Back Unspecified (Primary Dx); Medicine, Prabhu Parmar, Pain Lo w Back Chronic; Clinic, in [place] Pain Ear Bilateral [place] [address] [facility] [address] [place], [place] [id number] Social History Tobacco Use Types Packs/Day Years [...] or relatives? How often do you attend amish or Never 2021 anabaptism services? Do you belong to any clubs or Yes 09/02/2021 organizations such as amish groups, unions, fraternal or athletic groups, or [...] place to sleep or slept in a prison (including now)? Education Answer Date Recorded What is the highest level of school you have completed or th e 9th grade 11/26/2020 highest degree you have received? 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 - 01/08/2022 12:00 PM CDT SUBJECTIVE CHIEF COMPLAINT / REASON FOR VISIT Gricelda Roberts is a 41 y.o. female who presents for evaluation of Follow-up (Back pain continues to be bad). HISTORY OF PRESENT ILLNESS Gricelda Roberts is a 41-year-old female with status post gastric bypass with a history of chronic back pain. Patient was seen 2 weeks ago with acute exacerbation. She reports a sharp stabbing pain inher lower back which is nonradiating. Patient was sent home on topical diclofenac, muscle relaxants and Tylenol. She was offered physical therapy which she turned down. She is here for follow-up with persistent pain which has not improved. She would like to consider imaging for her back. She admits a history of arthritis involving her back. The following portions of the patient's history were reviewed and updated as appropriate: allergies,current medications, family history, medical history, social history, surgical history and problem list. REVIEW OF SYSTEMS Pertinent items are noted in HPI. OBJECTIVE BP 109/75 (BP Location: Right arm, Patient Position: Sitting, Cuff Size: Regular) Pulse 80 Temp 36 ??C Wt 72 kg BMI 26.97 kg/m?? PHYSICAL EXAM General Appearance: alert, no distress, cooperative. Skin: skin color, texture, turgor normal, no suspicious rashes or lesions. Head: normocephalic, no masses, lesions, tenderness or abnormalities. Eyes: Anicteric sclera. Pupils are equally round and reactive to light. Extraocular movements are intact. . Musculoskeletal: Range of motion normal in hips, knees, shoulders, and spine. ASSESSMENT / PLAN #1 Pain Low Back Unspecified #2 Pain Low Back Chronic #3 Pain Ear Bilateral 41-year-old female here with persistent low back pain. We discussed the typical course of back pain.Patient does not have red flag symptoms today. She will continue with our current treatment plan including heat, ice, muscle relaxants and topical diclofenac. I have also referred her for physical therapy. She continues to have persistent ear pain after current treatment. I will refer to ENT. documented in this encounter Plan of Treatment Scheduled Referrals Name Type Priority Associated Order Schedule Diagnoses [facility] Otorhinolaryngology - Outpatient Routine Pain Ear E xpected: General consult (clinic) Referral Bilateral 08/2021 (Approximate), Expires: 04/10/2023 documented as of this encounter Visit Diagnoses Diagnosis Pain Low Back Unspecified - Primary Pain Low Back Chronic Pain Ear Bilateral documented in this encounter Care Teams Manager Battery Relationship Specialty Start Date End Date Matheus Feliciano M.B.B.S., M.D. PCP - General Family Medicine 01/09/[address] [place] [address] [place] [phone] documented as of this encounter
--- OUTSIDE RECORDS SUMMARY | 2022-04-10 14:49 | XMS_ITS | Encounter Summary ---
:1980 Author Organization [facility] Address [address] [place] [address] Care Team Providers Name Role Phone Matheus Feliciano M.D. Primary Care Provider [phone] Encounter Details Date Type Department Care Team Description 02/25/2022 Clinical Communication Department of Matheus [facility], Prabhu Parmar, Clinic, in [place] [address] [address] [phone] Social History Tobacco Use Types Packs/Day Years [...] or relatives? How often do you attend restoration or Never 2021 zoroastrian services? 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 Order canceled Telephone Encounter - Denisse Best - 02/25/2022 2:32 PM CDT Reason for Communication: Pt calling in regarding referral to ENT. Pt said she would like to declinethat appt for now, as her ears have cleared up and she is not having any problems with her ears right now. Current Can Nursing/Provider leave a detailed message?: Did the patient refuse triage through Nurse line? (for symptom based concerns): Action Needed: Be advised pt is declining referral to ENT Name of Medication (if relevant): Please send all scheduling replies to scheduling pool. documented in this encounter Plan of Treatment Not on filedocumented as of this encounter Visit Diagnoses Not on filedocumented in this encounter Care Teams Press Room Supervisor Relationship Specialty Start Date End Date Matheus Feliciano M.B.B.S., M.Jori. PCP - General Family Medicine 01/09/[address] [place] [address] Faye HendricksPANKAJ woody [phone] documented as of this encounter
--- OUTSIDE RECORDS SUMMARY | 2022-04-10 14:49 | XMS_ITS | Encounter Summary ---
:1980 Author Organization [facility] Address [address] [place] [address] Care Team Providers Name Role Phone Matheus Feliciano M.D. Primary Care Provider [phone] Reason for Visit Outpatient (Routine) - Closed Specialty Diagnoses / Procedures Referred By Contact Refer red To Contact Plastic Surgery Nicol Mcdonald P. A.-C. [facility] [address] [place] [address] [phone] Referral ID Status Reason Start Date Expiration Date Visits Requ ested Visits Authorized [id number] Closed 12/03/2021 12/03/2022 1 1 Encounter Details Date Type Department Care Team Description 01/15/2022 Office Visit Division of Plastic Fox Mcdonald Examination Surgery in [place], Vikki Camarena Postoperative Visit [address] (Primary Dx) [address] [place] [phone] Social History Tobacco Use Types Packs/Day Years [...] do you attend amish or Never 2021 scientology services? 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 - 01/15/2022 3:00 PM CDT SUBJECTIVE CHIEF COMPLAINT / REASON FOR VISIT 1. underwent panniculectomy performed by Dr. Ziegler on 10/07/2021. 2. Routine three-month postop check HISTORY OF PRESENT ILLNESS is a very pleasant 41 y.o. female for a routine follow-up. She states that she has healedwell. Occasionally with certain movements, she will experience some short lived burning/nerve related discomfort in her right lower abdomen. Otherwise, she denies pain. She has returned back to normal activity. She is very glad that she has done this procedure very happy with her outcome. She has no concerns. REVIEW OF SYSTEMS Pertinent items noted in HPI. OBJECTIVE PHYSICAL EXAM General: Patient is alert and oriented x 3. She does not appear to be in acute distress. Very pleasant. Her and daughter accompany her. Abdomen. Abdominal incision fully healed. No signs of hypertrophic scarring. No obvious signs of fluid accumulation, infection, hernias or abdominal wall weakening. ASSESSMENT / PLAN 1. underwent panniculectomy performed by Dr. Ziegler on 10/07/2021. 2. Routine three-month postop check It was a pleasure seeing today in the clinic. She has healed very nicely after latest operation. I reassured her that the occasional, short lived burning/stabbing pain is nerve related. Thiswith time will improve and eventually resolve. She will let me know if she encounters any difficulties with this. Otherwise, from my standpoint, I do not have any restrictions for her. She was instructed to protect to her scar from sun exposure for the 1st year of healing to potentially prevent hyperpigmentation of the scar. I would be more than happy to see her at any point should she have any questions or concerns. Patient was instructed to contact us should she have any questions or concerns. Photographs obtained with patient's permission. All questions were asked and answered per patient report. It was an absolute pleasure taking care of PATIENT EDUCATION Ready to learn, no apparent learning barriers were identified; learning preferences include listening. Explained diagnosis and treatment plan; patient expressed understanding of the content. documented in this encounter Plan of Treatment Not on filedocumented as of this encounter Visit Diagnoses Diagnosis Follow Up Examination Postoperative Visi t - Primary documented in this encounter Care Teams Armature Rewinder Relationship Specialty Start Date End Date Matheus Feliciano M.B.B.S., M.D. PCP - General Family Medicine 01/09/[address] [place] [phone] documented as of this encounter
--- OUTSIDE RECORDS SUMMARY | 2022-04-10 14:49 | XMS_ITS | Encounter Summary ---
:[address] [facility] Address [address] [place] [address] Care Team Providers Name Role Phone Matheus Feliciano M.D. Primary Care Provider [phone] Reason for Visit Reason Comments Med Refill Encounter Details Date Type Department Care Team Description 01/29/2022 Refill Department of Family Medicine, Matheus Feliciano I., Med Refill [facility], in Ralph Pelletier [place], [place] 300 [facility] 300 [place] [address] [place] [address] [phone] Social History Tobacco Use Types Packs/Day Years [...] or relatives? How often do you attend orthodoxy or Never 2021 denominational services? Do you belong to any clubs or Yes 09/02/2021 organizations such as orthodoxy groups, unions, fraternal or athletic groups, or [...] place to sleep or slept in a assisted (including now)? Education Answer Date Recorded What is the highest level of school you have completed or th e 9th grade 11/26/2020 highest degree you have received? 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 Strategic Sourcing Manager Relationship Specialty Start Date End Date Matheus Feliciano M.B.B.S., M.D. PCP - General Family Medicine 01/09/[address] [place] [address] PANKAJ Velez [phone] documented as of this encounter
--- OUTSIDE RECORDS SUMMARY | 2022-04-10 14:49 | XMS_ITS | Encounter Summary ---
:1980 Author Organization [facility] Address [address] [place] [address] Care Team Providers Name Role Phone Matheus Feliciano M.D. Primary Care Provider [phone] Reason for Visit Reason Comments Medical Information Encounter Details Date Type Department Care Team Description 12/27/2021 Clinical Communication Department of Raz Feliciano [facility] in [address] [address] [place], [place] [phone] (Work) [phone] Social History Tobacco Use Types Packs/Day Years [...] or relatives? How often do you attend mandaeism or Never 2021 voodoo services? Do you belong to any clubs or Yes 09/02/2021 organizations such as mandaeism groups, unions, fraternal or athletic groups, or [...] place to sleep or slept in a senior living (including now)? Education Answer Date Recorded What is the highest level of school you have completed or th e 9th grade 11/26/2020 highest degree you have received? 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 She wants a call back at [phone] (this is not the number that she was calling from but it is the number she gave me for a call back number) Telephone Encounter - Liu Tayolr - 12/31/2021 4:09 PM CDT Reason for Communication: Patient is returning call from a nurse. I tried to message and call nursing no answer, so sent another message, please advise. Current Can Nursing/Provider leave a detailed message: yes Did the patient refuse triage through Nurse line? (for symptom based concerns): Action Needed: Name of Medication (if relevant): Telephone Encounter - Abigail Taylor L.P.N. - 12/31/2021 10:31 AM CDT SUBJECTIVE CHIEF COMPLAINT / REASON FOR CALL No chief complaint on file. PLAN The following information was provided: Attempt to contact patient. No answer, left message to return call to clinic. Information/Education: not applicable The following references were used: provider Dr. Jamel Feliciano Not sure what to say. ??If she absolutely wants an x-ray I will order 1. ??However, it will make no difference to her treatment. Telephone Encounter - Brannon Wakefield V. C.M.ARafal - 12/30/2021 2:42 PM CDT SUBJECTIVE CHIEF COMPLAINT / REASON FOR CALL No chief complaint on file. Information Discussed Contacted the patient and discussed the denial of an x-ray. Patient was adamant that the provider has mentioned an x-ray of the lower back was to be done. She insists that it was the entire reason for the visit was to have an x-ray done. Denied any injury prior to visit. PLAN Disposition/Recommendation: notified provider and awaiting recommendations Information/Education: patient/caller able to teach back Caller agreeable to plan of care: yes The following references were used: none Telephone Encounter - Marisela [place] - 12/30/2021 2:37 PM CDT Patient returned nurse call. Please call her back. Telephone Encounter - Brannon Wakefield V. C.M.ARafal - 12/30/2021 11:39 AM CDT Left message for patient to return call to clinic. Does the patient need to speak to nursing? yes Action needed: Notify patient that an x-ray is not needed at this time. Telephone Encounter - WaribokoMatheus M.B.B.S., M.D. - 12/30/2021 11:34 AM CDT There was no indication for x-rays. Telephone Encounter - Brannon Wakefield C.M.A. - 12/30/2021 9:26 AM CDT Is patient to have x-ray? No records of this mentioned in recent visit on 12/27/2021. Telephone Encounter - Jennifer Webb - 12/27/2021 5:03 PM CDT Reason for Communication: Patient is calling. She was seen today by and was told there was going to be an order for X rays. No active orders in chart. Please advice and call pt back if theyare needed. Current Can Nursing/Provider leave a detailed message?: no Did the patient refuse triage through Nurse line? (for symptom based concerns): Action Needed: Please advise and call back Name of Medication (if relevant): Please send all scheduling replies to scheduling pool. documented in this encounter Plan of Treatment Not on filedocumented as of this encounter Visit Diagnoses Not on filedocumented in this encounter Care Teams Supervisor Welding Equipment Repairer Relationship Specialty Start Date End Date Matheus Feliciano M.B.B.S., M.D. PCP - General Family Medicine 01/09/[address] [place] [address] [place] BarcenasGloucesterPANKAJ woody [phone] documented as of this encounter
--- OUTSIDE RECORDS SUMMARY | 2022-04-10 14:49 | XMS_ITS | Encounter Summary ---
:1980 Author Organization [facility] Address [address] [place] [address] Care Team Providers Name Role Phone Matheus Feliciano M.D. Primary Care Provider [phone] Encounter Details Date Type Department Care Team Description 01/20/2022 Orders Only Pharmacy Prior Auth ANTONY [facility] [phone] Social History Tobacco Use Types Packs/Day Years [...] or relatives? How often do you attend christian or Never 2021 yazdanism services? Do you belong to any clubs or Yes 09/02/2021 organizations such as christian groups, unions, fraternal or athletic groups, or [...] place to sleep or slept in a fci (including now)? Education Answer Date Recorded What is the highest level of school you have completed or th e 9th grade 11/26/2020 highest degree you have received? 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 PCP - General Family Medicine 01/09/[address] [place] [phone] documented as of this encounter
--- OUTSIDE RECORDS SUMMARY | 2022-04-10 14:49 | XMS_ITS | Encounter Summary ---
:1980 Author Organization [facility] Address [address] [place] [address] Care Team Providers Name Role Phone Matheus Feliciano M.D. Primary Care Provider [phone] Reason for Visit Reason Comments Medication Problem Encounter Details Date Type Department Care Team Description 02/11/2022 Clinical Communication Department of Raz Feliciano [facility] in [address] [address] [place], [place] [phone] (Work) [phone] Social History Tobacco Use Types Packs/Day Years [...] or relatives? How often do you attend orthodox or Never 2021 hoahaoism services? Do you belong to any clubs or Yes 09/02/2021 organizations such as orthodox groups, unions, fraternal or athletic groups, or [...] place to sleep or slept in a halfway (including now)? Education Answer Date Recorded What is the highest level of school you have completed or th e 9th grade 11/26/2020 highest degree you have received? 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 documented in this encounter Plan of Treatment Not on filedocumented as of this encounter Visit Diagnoses Not on filedocumented in this encounter Care Teams Orthopedic Radiologic Technologist Relationship Specialty Start Date End Date Matheus Feliciano M.B.BRafalSRafal, MDonald. PCP - General Family Medicine 01/09/[address] [place] [address] Faye CuyahogaPANKAJ woody [phone] documented as of this encounter
--- OUTSIDE RECORDS SUMMARY | 2022-04-10 14:49 | XMS_ITS | Encounter Summary ---
:[address] [facility] Address [address] [place] [address] Care Team Providers Name Role Phone Matheus Feliciano M.D. Primary Care Provider [phone] Reason for Visit Reason Comments Rx Prior Authorization [place] DENIED ZOLMITRIPTAN 5 MG TAB Encounter Details Date Type Department Care Team Description 01/27/2022 Clinical Communication Pharmacy Prior Auth Jacob Cardona Rx Prior RO [phone] Authorization ([facility] DENIED ZOLMITRI PTAN 5 MG TAB) Social History Tobacco Use Types Packs/Day Years [...] or relatives? How often do you attend advent or Never 2021 baptist services? Do you belong to any clubs or Yes 09/02/2021 organizations such as advent groups, unions, fraternal or athletic groups, or [...] place to sleep or slept in a intermediate (including now)? Education Answer Date Recorded What is the highest level of school you have completed or th e 9th grade 11/26/2020 highest degree you have received? 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 The patient's health insurer has denied prior authorization for ZOLMITRIPTAN 5 MG TAB. A quick view of the denial reason is in this communication message. To view the denial letter: 1. Go to Snapshot 2. Go to the purple Medications box 3. Click on the blue Prior Authorizations link 4. Under Denied, click on the blue medication link to open and view the attachment. As the prescriber your options are: ??? Appeal the decision to the insurer directly (see denial letter for how to appeal). ??? Write a new Rx for an alternative medication therapy. ??? Release the Rx to the pharmacy so the patient can pay out of pocket if they desire. To Release Rx: Open this encounter, go to Meds & Orders, click on the medication, and click the blue ???Release Rx?? button. PLEASE NOTE: If the ???Release Rx?? button is not visible, the Rx has already been released to the pharmacy. If you have questions, please reply via QuickNote to Maco CHAPA. Thank you, The OPPA Team documented in this encounter Plan of Treatment Not on filedocumented as of this encounter Visit Diagnoses Not on filedocumented in this encounter Care Teams Canoe Inspector Relationship Specialty Start Date End Date Matheus Feliciano M.B.B.S., M.D. PCP - General Family Medicine 01/09/[address] [place] [address] Faye KemperPANKAJ [phone] documented as of this encounter
--- OUTSIDE RECORDS SUMMARY | 2022-04-10 14:49 | XMS_ITS | Encounter Summary ---
:1980 Author Organization [facility] Address [address] [place] [address] Care Team Providers Name Role Phone Matheus Feliciano M.D. Primary Care Provider [phone] Encounter Details Date Type Department Care Team Description 02/26/2022 Orders Only Pharmacy Prior Auth ANTONY [facility] [place] [phone] Social History Tobacco Use Types Packs/Day Years [...] or relatives? How often do you attend christianity or Never 2021 quaker services? Do you belong to any clubs or Yes 09/02/2021 organizations such as christianity groups, unions, fraternal or athletic groups, or [...] place to sleep or slept in a alf (including now)? Education Answer Date Recorded What is the highest level of school you have completed or th e 9th grade 11/26/2020 highest degree you have received? 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 PCP - General Family Medicine 01/09/[address] [place] [phone] documented as of this encounter
--- OUTSIDE RECORDS SUMMARY | 2022-04-10 14:49 | XMS_ITS | Encounter Summary ---
:1980 Author Organization [facility] Address [address] [place] [address] Care Team Providers Name Role Phone Matheus Feliciano M.D. Primary Care Provider [phone] Reason for Visit Reason Comments Med Refill Encounter Details Date Type Department Care Team Description 01/02/2022 Refill Department of Family Medicine, Matheus Feliciano I., Med Refill [facility], in [place]let[place], [place] 300 [facility] 300 [place] [address] [place] [address] [phone] Social History Tobacco Use Types Packs/Day Years [...] or relatives? How often do you attend rastafarian or Never 2021 church services? Do you belong to any clubs or Yes 09/02/2021 organizations such as rastafarian groups, unions, fraternal or athletic groups, or [...] place to sleep or slept in a group home (including now)? Education Answer Date Recorded What is the highest level of school you have completed or th e 9th grade 11/26/2020 highest degree you have received? 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 PCP - General Family Medicine 01/09/[address] [place] [address] PANKAJ Velez [phone] documented as of this encounter
--- OUTSIDE RECORDS SUMMARY | 2022-04-10 14:49 | XMS_ITS | Encounter Summary ---
:1980 Author Organization [facility] Address [address] [place] [address] Care Team Providers Name Role Phone Matheus Feliciano M.D. Primary Care Provider [phone] Reason for Visit Reason Comments Med Refill Encounter Details Date Type Department Care Team Description 02/24/2022 Refill Department of Family Medicine, Matheus Feliciano I., Med Refill [facility], in [place], [place] 300 [facility] 300 [place] [address] [place] [address] [phone] Social History Tobacco Use Types Packs/Day Years [...] or relatives? How often do you attend buddhist or Never 2021 scientologist services? Do you belong to any clubs or Yes 09/02/2021 organizations such as buddhist groups, unions, fraternal or athletic groups, or [...] place to sleep or slept in a [place] [facility] [place] (including now)? Education Answer Date Recorded What is the highest level of school you have completed or th e 9th grade 11/26/2020 highest degree you have received? 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 PCP - General Family Medicine 01/09/[address] [place] [address] [place] [phone] documented as of this encounter
--- OUTSIDE RECORDS SUMMARY | 2022-04-10 14:49 | XMS_ITS | Encounter Summary ---
:1980 Author Organization [facility] Address [address] [place] [address] Care Team Providers Name Role Phone Matheus Feliciano M.D. Primary Care Provider [phone] Encounter Details Date Type Department Care Team Description 01/23/2022 Orders Only Pharmacy Prior Auth ANTONY MarysolAriane Jenny [phone] Social History Tobacco Use Types Packs/Day Years [...] or relatives? How often do you attend scientology or Never 2021 confucianist services? 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 PCP - General Family Medicine 01/09/[address] [place] [address] [place] [address] documented as of this encounter
--- OUTSIDE RECORDS SUMMARY | 2022-04-10 14:49 | XMS_ITS | Encounter Summary ---
:1980 Author Organization [facility] Address [address] [place] [address] Care Team Providers Name Role Phone Matheus Feliciano M.D. Primary Care Provider [phone] Encounter Details Date Type Department Care Team Description 01/27/2022 Orders Only Pharmacy Prior Auth ANTONY Jacob Cardona [phone] Social History Tobacco Use Types Packs/Day Years [...] do you attend latter-day or Never 2021 yazidi services? Do you belong to any clubs [...] place to sleep or slept in a longterm (including now)? Education Answer Date Recorded What is the highest level of school you have completed or th e 9th grade 11/26/2020 highest degree you have received? 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 PCP - General Family Medicine 01/09/[address] [place] [address] [place] [phone] documented as of this encounter
--- OUTSIDE RECORDS SUMMARY | 2022-04-10 14:50 | XMS_ITS | Encounter Summary ---
:1980 Author Organization [facility] Address [address] [place] [address] Care Team Providers Name Role Phone Matheus Feliciano M.D. Primary Care Provider [phone] Reason for Visit Reason Comments Med Refill Encounter Details Date Type Department Care Team Description 12/01/2021 Refill Department of Family Medicine, Matheus Feliciano I., Med Refill [facility], in [facility] [place], [place] [address] [facility] [address] [place] [address] [place] [address] [phone] Social History Tobacco Use Types Packs/Day Years [...] or relatives? How often do you attend tenriism or Never 2021 caodaism services? 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 PCP - General Family Medicine 01/09/[address] [place] [address] PANKAJ Velez [phone] documented as of this encounter
--- OUTSIDE RECORDS SUMMARY | 2022-04-10 14:50 | XMS_ITS | Encounter Summary ---
:1980 Author Organization [facility] Address [address] [place] [address] Care Team Providers Name Role Phone Matheus Feliciano M.D. Primary Care Provider [phone] Reason for Visit Reason Comments Med Refill Encounter Details Date Type Department Care Team Description 10/11/2021 Clinical Communication Division of Plastic Cresencio Ziegler Med Refill Surgery in [place], [place], P h.DRafal [place] [id number] [place] [address] [place] [address] Social History Tobacco Use Types Packs/Day Years [...] do you attend latter-day or Never 2021 sabianism services? 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 - 10/14/2021 4:22 PM RN FAMILY PRACTICE Called pt, note to follow. FAMILY PRACTICE Telephone Encounter - Joe Ziegler M.D., Ph.D. - 10/14/2021 4:22 PM RN FAMILY PRACTICE And called back to ask about getting additional pain medication. She describes the pain as being primarily located on the lateral aspects of her incision as well as on the mons area. It is intermittentbut wakes her up from sleep. She is alternating the Tylenol and ibuprofen but this is not providing adequate pain relief. Upon additional questioning, patient stated that she has not been wearing the abdominal binder because she was told at the hospital that she did not need to wear it while she was sleeping. I advised her that at this stage of her recovery, she should be wearing the binder at all times except for showers. She also has previously taken Neurontin for chronic pain and I advised her to restart this medication. I am going to refill her oxycodone. Her drain is close to meeting criteria for removal and she is scheduled to see us on Thursday. We are happy to remove it for her at that time but she can certainly have her do it prior to that visit if it has completely met criteria. Joe Zieglre M.D., Ph.D. FAMILY PRACTICE Telephone Encounter - Korin Heath - 10/14/2021 12:50 PM CST Patient calling in regards to ongoing pain. She states she is still having high pain levels and is wanting a prescription for pain medication. She would like a call back. FAMILY PRACTICE Telephone Encounter - Nicol Mcdonald P.A.-C. - 10/11/2021 12:56 PM RN FAMILY PRACTICE I called and spoke with the patient personally. She reports having pain mainly around the drain sites. Also there is some increased pain when she coughs. She rates her pain 8/10. She presently takes 1,500 mg of Tylenol twice daily. She was given 15 tablets of oxycodone and she reports that she is out of these medications. She was wondering if she can get a refill. She denies any increase in size in the operated site, signs of infection or otherwise changes from the baseline. We had a lengthy discussion pertaining to pain management. At this point I want her to start introducing ibuprofen. She can take 600 mg 3 times daily. In addition, I will have her continue to take Tylenol, however, 1000 mg 4 times daily, making sure that she is not exceeding 4000 mg per 24 hours. At this time, we will try this regimen and I will not be giving her additional oxycodone prescription. I have also stressed the importance of her taking it easy and to watch her her activity level carefully. She was instructed to call us as soon as her drains are ready to come. She has a follow-up appointment with me next Thursday. If this regimen is not taking care of her pain, she was advised to let us know and we may need to see her to make sure nothing else is going on. She feels comfortable with this plan. FAMILY PRACTICE Telephone Encounter - Korin Heath - 10/11/2021 11:32 AM CST Patient's calling again about getting this rx. Would like it before the weekend. FAMILY PRACTICE Telephone Encounter - Korin Heath - 10/11/2021 8:39 AM CST Patient's calling, with patient. She is requesting a refill on her pain medication and wouldlike to speak with the team about this. did not give me any further details. FAMILY PRACTICE documented in this encounter Plan of Treatment Not on filedocumented as of this encounter Visit Diagnoses Not on filedocumented in this encounter Care Teams High School Sports Coach Relationship Specialty Start Date End Date Matheus Feliciano M.B.B.S., M.D. PCP - General Family Medicine 01/09/[address] [place] [phone] documented as of this encounter
--- OUTSIDE RECORDS SUMMARY | 2022-04-10 14:50 | XMS_ITS | Encounter Summary ---
:1980 Author Organization [facility] Address [address] [place] [address] Care Team Providers Name Role Phone Matheus Feliciano M.D. Primary Care Provider [phone] Encounter Details Date Type Department Care Team Description 10/16/2021 Ancillary Procedure Department of Plastic and Reconstructive [...] or relatives? How often do you attend judaism or Never 2021 samaritan services? Do you belong to any clubs or Yes 09/02/2021 organizations such as judaism groups, unions, fraternal or athletic groups, or [...] place to sleep or slept in a retirement (including now)? Education Answer Date Recorded What is the highest level of school you have completed or th e 9th grade 11/26/2020 highest degree you have received? 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 documented in this encounter Results Abdomen Panniculectomy-Plastic And Recon Surgery Image Exam (10/16/2021 12:00 AM WATER METER MECHANIC) Specimen (Source) Anatomical Location Collection Method / Collectio n Time Received Time / Laterality Volume Narrative IIMS - 10/16/2021 12:20 PM WATER METER MECHANIC This order has been created and auto-finalized [...] on filedocumented in this encounter Care Teams Online Media Buyer Relationship Specialty Start Date End Date Matheus Feliciano M.B.BRafalSRafal, MDonald. PCP - General Family Medicine 01/09/[address] [place] [address] PANKAJ Velez [phone] documented as of this encounter
--- OUTSIDE RECORDS SUMMARY | 2022-04-10 14:50 | XMS_ITS | Encounter Summary ---
:1980 Author Organization [facility] Address [address] [place] [address] Care Team Providers Name Role Phone Matheus Feliciano M.D. Primary Care Provider [phone] Reason for Referral Outpatient (Routine) - Closed Specialty Diagnoses / Procedures Referred By Contact Refer red To Contact Diagnoses Swelling Abdomen Nicol Mcdonald P.A.-C. [facility] Procedures US Abdomen Limited Abdominal Wall [address] [place] [phone] Referral ID Status Reason Start Date Expiration Date Visits Requ ested Visits Authorized [id number] Closed 11/01/2021 11/01/2022 1 1 Reason for Visit Outpatient (Routine) - Closed Specialty Diagnoses / Procedures Referred By Contact Refer red To Contact Plastic Surgery Joe Ziegler M.D., [facility] [place] [address] Referral ID Status Reason Start Date Expiration Date Visits Requ ested Visits Authorized [id number] Closed 10/31/2021 10/31/2022 1 1 Encounter Details Date Type Department Care Team Description 11/01/2021 Office Visit Division of Plastic [place], Swelling Abdomen Surgery in [facility] Vikki Camarena (Primary Dx) [place] [address] [facility] [address] [place] [phone] Social History Tobacco Use Types Packs/Day Years [...] or relatives? How often do you attend episcopal or Never 2021 mormon services? Do you belong to any clubs or Yes 09/02/2021 organizations such as episcopal groups, unions, fraternal or athletic groups, or [...] place to sleep or slept in a correction (including now)? Education Answer Date Recorded What is the highest level of school you have completed or th e 9th grade 11/26/2020 highest degree you have received? 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 - 11/01/2021 1:00 PM CDT SUBJECTIVE CHIEF COMPLAINT / REASON FOR VISIT 1. underwent panniculectomy performed by Dr. Ziegler on 10/07/2021. 2. Pain at right apex of abdominal incision HISTORY OF PRESENT ILLNESS is a very pleasant 40 y.o. female who presents today for evaluation of new onset of pain at the right apex of abdominal incision. She states that this pain started roughly 3 days ago. She israting pain 02/16. She has been taking Tylenol 1000 mg 2 times daily and ibuprofen 400 mg 2 times daily. She reports some redness in the area. The pain and redness has been worsening since she noticed it. She denies fever/chills or otherwise systemic or local signs/symptoms of infection. She had ultrasound of the abdominal wall today at which was normal, only two small fluid collections were noted that are not amenable to aspiration REVIEW OF SYSTEMS Pertinent items noted in HPI. OBJECTIVE PHYSICAL EXAM General: Patient is alert and oriented x 3. She does not appear to be in acute distress. Very pleasant. Her accompanies her. Abdomen. Abdominal incision fully healed. No obvious signs of fluid accumulation noted. There is an approximately 2 cm x 2 cm area of redness at the right lateral apex of the incision, appears to be consistent with suture abscess, though not obvious drainable fluid at this time. ASSESSMENT / PLAN #1 Swelling Abdomen 1. underwent panniculectomy performed by Dr. Ziegler on 10/07/2021. 2. Likely early suture abscess right lateral apex of the incision without drainable collection It was a pleasure seeing today in the clinic. I staffed this case with Dr. Ziegler who came into the room examined/evaluated patient with me. We have explained to the patient that she likely has early development of suture abscesses. There is nothing that could be drained at this time. We recommend that she applies warm compresses, twice a day, making sure that it is not too hot as her sensation is compromised and we do not want her to get burned. As a precaution, we will also place her onantibiotic. She was instructed to keep a close eye on it. This with time will resolve. Should it getting worse she was advised to let us know. There is an appointment in place next week should she needto be seen again. She feels comfortable with this plan. She will keep us informed on her progress. She was inquiring about medications to help her sleep. Dr. Ziegler recommends that she takes Tylenol p.m.. If this is not helping, we recommend that she sees her primary care physician for further evaluation for her sleeping difficulties. She can take up to 4000 mg of Tylenol in 24 hours. I recommend that she stops taking ibuprofen given history of gastric bypass. I have reviewed ultrasound results with her. No drainable fluid collection was noted in her abdominal wall. This is very reassuring. Signs/symptoms of an infection were reviewed with the patient and she was instructed to call us immediately if any of these occur. Patient was instructed to contact us should [...] Not on filedocumented as of this encounter Results US Abdomen Limited Abdominal Wall (11/01/2021 12:03 PM CDT) Anatomical Region Laterality Modality Abdomen, Ultrasound RST LOS, Ultrasound ARZ LOS, Ultrasound FLA N/A Ultrasound LOS Specimen (Source) Anatomical Collection Method Collection Time Re ceived Time Location / / Volume Laterality 11/01/2021 12:06 PM CDT Impressions 11/01/2021 12:20 PM CDT Postsurgical changes of the anterior and lateral abdominal wall. No drainable fluid collections or abscesses. Narrative 11/01/2021 12:20 PM CDT EXAM: US ABDOMEN LIMITED ABDOMINAL WALL COMPARISON: CT abdomen/pelvis 01/09/2021 . FINDINGS: Targeted sonographic evaluatio n of the anterior and lateral lower abdominal wall at the site of recent panniculectomy demonstrat es a small tubular pocket of fluid measuring 4.3 x 0.8 x 2.7 cm extending from the right lateral aspe ct of the surgical scar. A smaller similar pocket of fluid measuring 1.9 x 0.7 x 2.2 cm is noted in the left lateral aspect of the surgical scar. Neither of these pockets of fluid demonstrate wall hyperemia. The patient was transitioned to a sittin g position as requested, which did not demonstrate any fluid accumulation at the bottom. Subcutaneous edema. Procedure Note Miles Chang M.D., M.S. - 11/01/2021F ormatting of this note might be different from the original. EXAM: US ABDOMEN LIMITED ABDOMINAL WALL COMPARISON: CT abdomen/pelvis 01/09/2021 . FINDINGS: Targeted sonographic evaluatio n of the anterior and lateral lower abdominal wall at the site of recent panniculectomy demonstrat es a small tubular pocket of fluid measuring 4.3 x 0.8 x 2.7 cm extending from the right lateral aspe ct of the surgical scar. A smaller similar pocket of fluid measuring 1.9 x 0.7 x 2.2 cm is noted in the left lateral aspect of the surgical scar. Neither of these pockets of fluid demonstrate wall hyperemia. The patient was transitioned to a sittin g position as requested, which did not demonstrate any fluid accumulation at the bottom. Subcutaneous edema. IMPRESSION: Postsurgical changes of the anterior and lateral abdominal wall. No drainable fluid collections or abscesses. Nicol Mcdonald P.A.-C. IMG US PROCEDURES documented in this encounter Visit Diagnoses Diagnosis Swelling Abdomen - Primary Swelling Abdomen documented in this encounter Care Teams Customer Engineering Specialist Relationship Specialty Start Date End Date Matheus Feliciano M.B.B.S., M.D. PCP - General Family Medicine 01/09/[address] [place] [phone] documented as of this encounter
--- OUTSIDE RECORDS SUMMARY | 2022-04-10 14:50 | XMS_ITS | Encounter Summary ---
:1980 Author Organization [facility] Address [address] [place] [address] Care Team Providers Name Role Phone Matheus Feliciano M.D. Primary Care Provider [phone] Encounter Details Date Type Department Care Team Description 10/11/2021 Orders Only Division of Plastic Surgery Doyle Mcdonald in [facility] P.A.-C. [address] [facility] [address] [place] [address] [place], [place] [phone] (Wo rk) Social History Tobacco Use Types [...] or relatives? How often do you attend episcopalian or Never 2021 christian services? 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 PCP - General Family Medicine 01/09/[address] [place] [address] PANKAJ Velez [phone] documented as of this encounter
--- OUTSIDE RECORDS SUMMARY | 2022-04-10 14:50 | XMS_ITS | Encounter Summary ---
:1980 Author Organization [facility] Address [address] [place] [address] Care Team Providers Name Role Phone Matheus Feliciano M.D. Primary Care Provider [phone] Encounter Details Date Type Department Care Team Description 11/01/2021 Ancillary Procedure Department of Plastic and Reconstructive [...] or relatives? How often do you attend nondenominational or Never 2021 jainism services? 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 documented in this encounter Results Abdomen Panniculectomy-Plastic And Recon Surgery Image Exam (11/01/2021 12:00 PM CDT) Specimen (Source) Anatomical Location Collection Method / Collectio n Time Received Time / Laterality Volume Narrative IIMS - 11/01/2021 4:12 PM CDT This order has been created [...] on filedocumented in this encounter Care Teams Shopper Insights Manager Relationship Specialty Start Date End Date Matheus Feliciano M.B.BRafalS., MDonald. PCP - General Family Medicine 01/09/[address] [place] [address] PANKAJ Velez [phone] documented as of this encounter
--- OUTSIDE RECORDS SUMMARY | 2022-04-10 14:50 | XMS_ITS | Encounter Summary ---
:1980 Author Organization [facility] Address [address] [place] [address] Care Team Providers Name Role Phone Matheus Feliciano M.D. Primary Care Provider [phone] Reason for Referral Outpatient (Routine) - Closed Specialty Diagnoses / Procedures Referred By Contact Refer red To Contact Plastic Surgery Nicol Mcdonald P. A.-C. [address] [phone] Referral ID Status Reason Start Date Expiration Date Visits Requ ested Visits Authorized [id number] Closed 12/03/2021 12/03/2022 1 1 Reason for Visit Outpatient (Routine) - Canceled Specialty Diagnoses / Procedures Referred By Contact Refer red To Contact Plastic Surgery Nicol Mcdonald P. A.-C. [address] [phone] Referral ID Status Reason Start Date Expiration Date Visits V isits Requested Authorized [id number] Canceled 10/16/2021 10/16/2022 1 1 Encounter Details Date Type Department Care Team Description 12/03/2021 Office Visit Division of Plastic Fox Mcdonald Examination Surgery in [place], Vikki Camarena Postoperative Visit [address] (Primary Dx) [address] [place] [phone] Social History Tobacco Use Types Packs/Day Years [...] do you attend advent or Never 2021 church services? 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 - 12/03/2021 2:15 PM CDT SUBJECTIVE CHIEF COMPLAINT / REASON FOR VISIT 1. underwent panniculectomy performed by Dr. Ziegler on 10/07/2021. 2. Follow-up for early suture abscess located at the right lateral apex of her abdominal incision HISTORY OF PRESENT ILLNESS is a very pleasant 41 y.o. female for follow-up. She states that the redness and induration has resolved. She feels that tissues have been healing nicely. She reports occasional sharp shooting pains, otherwise, she denies pain. She is not taking any pain medications. She has basically returned back to normal activity. She still being cautious about certain more aggressive activities. She has no concerns. REVIEW OF SYSTEMS Pertinent items noted in HPI. OBJECTIVE PHYSICAL EXAM General: Patient is alert and oriented x 3. She does not appear to be in acute distress. Very pleasant. Abdomen. Abdominal incision fully healed. No signs of hypertrophic scarring. Previously noted area of induration has completely resolved. No obvious signs of fluid accumulation or infection noted. Abdomen is nontender nondistended. ASSESSMENT / PLAN 1. underwent panniculectomy performed by Dr. Ziegler on 10/07/2021. 2. Likely early suture abscess right lateral apex of the incision without drainable collection-resolved It was a pleasure seeing today in the clinic. She continues to heal very nicely. Indurated area as her right apex of abdominal incision has fully resolved. At this point, she can continue toresume normal activity. There are no activity or weight restrictions from my standpoint. She does not need to wear abdominal binder any longer. I would like to see her back in 1-2 months, certainly sooner should she have any difficulties. Patient was instructed to contact us should [...] Name Type Priority Associated Diagnoses Order S [facility] Plastic Surgery Outpatient Referral Routine Expec kathleen: office visit 01/02/2022 (clinic) (Approximate), Expires: 03/04/2023 documented as of this encounter Visit Diagnoses Diagnosis Follow Up Examination Postoperative Visi t - Primary documented in this encounter Care Teams Dolly Driver Relationship Specialty Start Date End Date Matheus Feliciano M.B.B.S., M.D. PCP - General Family Medicine 01/09/[address] [place] [address] [place] [phone] documented as of this encounter
--- OUTSIDE RECORDS SUMMARY | 2022-04-10 14:50 | XMS_ITS | Encounter Summary ---
:[address] [facility] Address [address] [place] [address] Care Team Providers Name Role Phone Matheus Feliciano M.D. Primary Care Provider [phone] Reason for Visit Reason Comments OTHER Swelling Postoperative concern Encounter Details Date Type Department Care Team Description 10/31/2021 Clinical Communication Division of Karlie, JULIET (Swelling /); Plastic Surgery in [facility] , Postopera tive concern Ana Wilkes, Ph.D. [facility], [facility] [place] [address] [place] [address] Social History Tobacco Use Types [...] or relatives? How often do you attend sikh or Never 2021 taoist services? 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 - 10/31/2021 2:55 PM CDT REASON FOR CALL Postoperative concern Information Discussed Patient calling. She states she continues to notice swelling/fluid accumulation and intermittent pain in her abdomen. She does not think this has worsened since her last phone call to us about 10 days ago. She denies associated fever, chills, and all other signs of infection at this time. She has beentrying to follow the activity restrictions as previously discussed. Discussed that Nicol will see her tomorrow for further evaluation. Patient verbalizes her understanding and is in agreement with thisplan. PLAN Disposition/Recommendation: appt scheduled with Nicol 11/01 Information/Education: patient/caller able to teach back Caller agreeable to plan of care: yes The following references were used: provider EDWARD Torres Telephone Encounter - Rosy Trujillo - 10/31/2021 2:13 PM CDT Patient called stating the swelling is getting worse and she has pain. documented in this encounter Plan of Treatment Not on filedocumented as of this encounter Visit Diagnoses Not on filedocumented in this encounter Care Teams Lab Technologist Relationship Specialty Start Date End Date Matheus Feliciano M.B.B.S., M.D. PCP - General Family Medicine 01/09/[address] [place] [address] [place] [address] documented as of this encounter
--- OUTSIDE RECORDS SUMMARY | 2022-04-10 14:50 | XMS_ITS | Encounter Summary ---
:1980 Author Organization [facility] Address [address] [place] [address] Care Team Providers Name Role Phone Matheus Feliciano M.D. Primary Care Provider [phone] Reason for Visit Outpatient (Routine) - Closed Specialty Diagnoses / Procedures Referred By Contact Refer red To Contact Plastic Surgery Joe Ziegelr M.D., [facility] [place] [address] Referral ID Status Reason Start Date Expiration Date Visits Requ ested Visits Authorized [id number] Closed 08/22/2021 08/22/2022 1 1 Encounter Details Date Type Department Care Team Description 10/16/2021 Office Visit Division of Plastic Tamara, [facility] p Examination Surgery [place]. Postoperative Visit [address] (Primary Dx) [address] [place] [address] [phone] Social History Tobacco Use Types Packs/Day Years [...] do you attend orthodoxy or Never 2021 yarsanism services? 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 - 10/16/2021 10:30 AM CST SUBJECTIVE CHIEF COMPLAINT / REASON FOR VISIT 1. underwent panniculectomy performed by Dr. Ziegler on 10/07/2021. 2. Routine postop check HISTORY OF PRESENT ILLNESS is a very pleasant 40 y.o. female who presents today for a routine postop check. She states that recovery has been going well for her. She rates her pain 4/10. She takes 1000 mg of Tylenol 2times daily. She has also taken 400 mg of ibuprofen once daily. She also takes oxycodone as needed and yesterday took 2 tablets. She denies signs/symptoms of infection. Her removed both drains one on Thursday and the other one yesterday. She has no concerns. REVIEW OF SYSTEMS Pertinent items noted in HPI. OBJECTIVE PHYSICAL EXAM General: Patient is alert and oriented x 3. She does not appear to be in acute distress. Very pleasant. Her accompanies her. Abdomen. Surgical tape intact. No rashes noted. Incision appears clean, dry, intact and is without erythema or drainage. Drain sites are healing nicely. No obvious signs of fluid accumulation or infection. Abdomen is nontender nondistended. ASSESSMENT / PLAN 1. underwent panniculectomy performed by Dr. Ziegler on 10/07/2021. 2. Routine postop check It was a pleasure seeing today in the clinic. She is recovering very nicely after latest operation. She was instructed to continue to wear abdominal binder and/or compression garment at all times except when showering for6 weeks after surgery or until instructed otherwise. Activity and weight restrictions also discussed with the patient in detail. She understands the more active she is, the more fluid accumulates in the operated sites, increasing her risk for fluid collections, infection and other complications. We have discussed pain management. I recommend that she takes 1000 mg of Tylenol 4 times daily. Thiswill help her require less of oxycodone. The goal is to get her off of oxycodone as soon as possibledue to undesirable side effects. She will do so. She likes to avoid ibuprofen due to previous history of gastric bypass, which is understanding. Signs/symptoms of an infection were reviewed with the patient and she was instructed to call us immediately if any of these occur. She may shower, however, she should not soak in tub/water until she is at least 6-8 weeks from surgery and all incisions have healed, and are without any scabbing or otherwise compromise. Patient will return to clinic in 3-4 weeks. Patient was instructed to contact us should she have any questions or concerns. Photographs obtained with patient's permission. All questions were asked and answered per patient report. It was an absolute pleasure taking care of PATIENT EDUCATION Ready to learn, no apparent learning barriers were identified; learning preferences include listening. Explained diagnosis and treatment plan; patient expressed understanding of the content. LANCE TRANSLATOR documented in this encounter Plan of Treatment Not on filedocumented as of this encounter Visit Diagnoses Diagnosis Follow Up Examination Postoperative Visi t - Primary documented in this encounter Care Teams Airline Attendant Relationship Specialty Start Date End Date Matheus Feliciano M.B.B.S., M.D. PCP - General Family Medicine 01/09/[address] [place] [address] PANKAJ Velez [phone] documented as of this encounter
--- OUTSIDE RECORDS SUMMARY | 2022-04-10 14:50 | XMS_ITS | Encounter Summary ---
:1980 Author Organization [facility] Address [address] [place] [address] Care Team Providers Name Role Phone Matheus Feliciano M.D. Primary Care Provider [phone] Encounter Details Date Type Department Care Team Description 12/19/2021 Clinical Communication Department of Matheus Chester [facility], Prabhu Parmar, Clinic, in [place] [address] [address] [phone] Social History Tobacco Use Types Packs/Day Years [...] or relatives? How often do you attend shinto or Never 2021 restorationist services? 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 - 12/23/2021 8:29 AM CDT Patient has an appointment on December [address] Feliciano. Telephone Encounter - Alejandra Meadows - 12/20/2021 2:20 PM CDT Patient returned nurse's call. Please call patient back [phone] Telephone Encounter - Matheus Feliciano M.B.B.S. MBob - 12/20/2021 8:37 AM CDT She would definitely need to be seen before deciding on Imaging and referral. Telephone Encounter - Lore Lemus - 12/19/2021 3:57 PM CDT Reason for Communication: Patient is having a lot of lower back pain and is requesting an order for an MRI and then to be referred to see a specialist. Current Phone Number: [phone] Can Nursing/Provider leave a detailed message?: yes Did the patient refuse triage through Nurse line? (for symptom based concerns): na Action Needed: please advise when the order is placed so she can schedule an appointment Name of Medication (if relevant): Please send all scheduling replies to scheduling pool. documented in this encounter Plan of Treatment Not on filedocumented as of this encounter Visit Diagnoses Not on filedocumented in this encounter Care Teams Metals Sales Representative Relationship Specialty Start Date End Date Matheus Feliciano M.B.B.S., M.D. PCP - General Family Medicine 01/09/[address] [place] [phone] documented as of this encounter
--- OUTSIDE RECORDS SUMMARY | 2022-04-10 14:50 | XMS_ITS | Encounter Summary ---
:1980 Author Organization [facility] Address [address] [place] [address] Care Team Providers Name Role Phone Matheus Feliciano M.D. Primary Care Provider [phone] Encounter Details Date Type Department Care Team Description 11/20/2021 Clinical Communication Division of Plastic Cresencio ZieglerJagjit Surgery in [place], Ana Gilman, P h.DRafal [address] [address] [place] [address] Social History Tobacco Use Types [...] or relatives? How often do you attend presybeterian or Never 2021 islam services? 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 PCP - General Family Medicine 01/09/[address] [place] [address] [place] [phone] documented as of this encounter
--- OUTSIDE RECORDS SUMMARY | 2022-04-10 14:50 | XMS_ITS | Encounter Summary ---
:1980 Author Organization [facility] Address [address] [place] [address] Care Team Providers Name Role Phone Matheus Feliciano M.D. Primary Care Provider [phone] Reason for Referral Outpatient (Routine) - Closed Specialty Diagnoses / Procedures Referred By Contact Refer red To Contact Diagnoses Swelling Abdomen Nicol Mcdonald P.A.-C. [place] Procedures US Abdomen Limited Abdominal Wall [address] [place] [phone] Referral ID Status Reason Start Date Expiration Date Visits Requ ested Visits Authorized [id number] Closed 11/01/2021 11/01/2022 1 1 Reason for Visit Outpatient (Routine) - Closed Specialty Diagnoses / Procedures Referred By Contact Refer red To Contact Diagnoses Swelling Abdomen Nicol Mcdonald P.A.-C. [place] Procedures US Abdomen Limited Abdominal Wall [address] [place] [phone] Referral ID Status Reason Start Date Expiration Date Visits Requ ested Visits Authorized [id number] Closed 11/01/2021 11/01/2022 1 1 Encounter Details Date Type Department Care Team Description 11/01/2021 Hospital Encounter Department of Tamara Swelling Abdomen Radiology, Jose Martin Camarena P.A.-C. [facility], in [address] [place] [address] [place] [address] [place], [place] [phone] (Work) [phone] Social History Tobacco Use Types Packs/Day Years [...] do you attend tenriism or Never 2021 alevism services? 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 mg calcium) tablet capsaicin (ARTHRITIS Apply 1 application 42.5 g 2 2018 PAIN RELIEF,CAPSAIC,) topically 3 (three) 0.1 % cream times a day as needed (Knee pain). cetirizine (ZyrTEC) 10 Take 1 tablet by mouth 0 0 11/10/2016 mg tablet 2 (two) times a day. cholecalciferol Take 2,000 Units by 0 (VITAMIN D3) 50 mcg mouth daily. (2,000 Unit) tablet cyanocobalamin INJECT 1ML 3 mL 3 03/29/2021 (VITAMIN B12) 1,000 INTRAMUSCULARLY EVERY mcg/mL injection MONTH fluticasone (FLONASE) Administer 2 sprays 16 g 11 08/26 50 mcg/actuation nasal into each nostril spray daily. gabapentin (NEURONTIN) TAKE 3 CAPSULES(900 810 capsule 3 300 mg capsule MG) BY MOUTH THREE TIMES DAILY ketoconazole (NIZORAL) Apply 1 application 60 g 3 08/2020 2 % creamIndications: topically 2 (two) Pannus Abdominal times a day. Apply to abdominal wall. levETIRAcetam (KEPPRA) TAKE 1 TABLET(500 MG) 180 tablet 3 500 mg tablet BY MOUTH TWICE DAILY lidocaine (LIDODERM) 5 Place 1 patch on the 90 patch 3 % skin daily. Apply to intact skin and remove patch after a maximum of 12 hr of application within a 24 hr period MULTIVITAMIN ORAL Take 1 tablet by mouth 0 daily. omega-3 fatty Take 1 g by mouth 0 acids-fish oil daily. 1200 mg 300-1,000 mg capsule ondansetron ODT Take 1 tablet (4 mg 20 tablet 1 01/23/2021 (ZOFRAN-ODT) 4 mg total) by mouth as disintegrating tablet needed for nausea. pantoprazole Take 20 mg by mouth 2 0 07/03/2021 (PROTONIX) 20 mg EC (two) times a day. tablet promethazine Take 25 mg by mouth as 0 05/14/2014 (PHENERGAN) 25 mg needed for nausea. tablet SUMAtriptan (IMITREX) Take 1 tablet (100 mg 10 tablet 1 100 mg tablet total) by mouth as needed for migraine. ZOLMitriptan (ZOMIG) 5 Take 1 tablet (5 mg 10 tablet 1 06/10 mg tablet total) by mouth as needed for migraine. atomoxetine TAKE ONE CAPSULE BY 90 capsule 3 10/12/2020 04/2 12/2021 (STRATTERA) 80 mg MOUTH EVERY DAY capsule busPIRone (BUSPAR) 30 TAKE 1 TABLET(30 MG) 180 tablet 3 05/1004/01/2022 mg tablet BY MOUTH TWICE DAILY cyclobenzaprine TAKE 1 TABLET(10 MG) 30 tablet 1 10/01/2021 12/27/2021 (FLEXERIL) 10 mg BY MOUTH AT BEDTIME tablet NEEDED FOR MUSCLE SPASMS escitalopram (LEXAPRO) TAKE 1 TABLET BY MOUTH 90 tablet 3 0 03/04/2021 01/02/2022 20 mg tablet EVERY DAY oxyCODONE (ROXICODONE) Take 1 tablet (5 mg 15 tablet 0 03/02/202212/27/2021 5 mg immediate release total) by mouth every tabletIndications: 4 (four) hours as Acute Pain needed for pain or severe pain or score 7-10 of 10 Indication: Acute Pain. - propranoloL (INDERAL) Start with 1 tablet by 120 tablet 11 01/01/2022 20 mg mouth twice daily. tabletIndications: After 2 weeks, if Migraine With Aura tolerated may increase Without Headache to 2 tablets twice daily. sennosides-docusate Take 1 tablet by mouth 0 09/1112/27/2021 sodium (SENOKOT-S) 2 (two) times a day. 8.6-50 mg per tablet Use while taking oxycodone sulfamethoxazole-trime Take 1 tablet by mouth 20 tablet 0 0 11/01/2021 12/30/2021 thoprim (BACTRIM DS) 2 (two) times a day. 800-160 mg per tablet traZODone (DESYREL) 50 TAKE 1 TABLET(50 MG) 30 tablet 3 11/18/2021 mg tablet BY MOUTH AT BEDTIME NEEDED FOR SLEEP trospium (SANCTURA) 20 Take 1 tablet (20 mg 180 tablet 3 12/202001/29/2022 mg tablet total) by mouth 2 (two) times a day before breakfast and dinner. documented as of this encounter Plan of Treatment Not on filedocumented as of this encounter Procedures Procedure Name Priority Date/Time Associated Comments Diagnosis US ABDOMEN RAD - Routine 11/01/2021 12:03 Swelling Abdomen Result s for this LIMITED ABDOMINAL (most inpatients PM CDT proced ure are in WALL and all the results outpatients) section. documented in this encounter Results US Abdomen Limited Abdominal [...] this encounter Visit Diagnoses Diagnosis Swelling Abdomen documented in this encounter Care Teams Social Services Coordinator Relationship Specialty Start Date End Date Matheus Feliciano M.B.B.S., M.D. PCP - General Family Medicine 01/09/[address] [place] [phone] documented as of this encounter
--- OUTSIDE RECORDS SUMMARY | 2022-04-10 14:50 | XMS_ITS | Encounter Summary ---
:1980 Author Organization [facility] Address [address] [place] [address] Care Team Providers Name Role Phone Matheus Feliciano M.D. Primary Care Provider [phone] Encounter Details Date Type Department Care Team Description 10/21/2021 Clinical Communication Department of Jos Ray, Orthopedic Surgery in [place], [place] [address] [facility] [address] [place] [phone] Social History Tobacco Use Types Packs/Day Years [...] do you attend shinto or Never 2021 restorationism services? Do you belong to any clubs [...] place to sleep or slept in a jail (including now)? Education Answer Date Recorded What is the highest level of school you have completed or th e 9th grade 11/26/2020 highest degree you have received? 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 - 10/21/2021 8:21 AM CDT PLASTIC SURGERY PROGRESS NOTE: Mrs. Roberts is a 40 year old woman who underwent panniculectomy procedure with Dr. Ziegler on October 07, 2021. She called yesterday evening with concerns for swelling around her abdominal surgical site. She reports that she does not feel any fluid in the surgical site just more swollen today. I asked her about her activity and she reports that she had some increased activity around the house yesterday. Additionally, she went to the [employer] and carried lots of groceries. He drains were removed at her most recent postoperative visit on 10/16 with Nicol. I had a long discussion with Mrs Roberts about her activity restrictions and to continue to abide bythem while she is continuing to heal usually about 4-6 weeks after surgery. Additionally, we discussed the importance of her abdominal binder and that it should be worn at all times except for hygiene purposes. We discussed that increased activity will increase her risk for seroma or fluid accumulation. There is nothing for us to do urgently, however, she should continue to rest and avoid strenuous activity. I discussed with her that she should continue to be out of bed and walking around the house to reduce her risk for blood clots. She understood this. All questions were answered to patient satisfaction. Will review with Dr. Ziegler. Jos Ray M.D. documented in this encounter Plan of Treatment Not on filedocumented as of this encounter Visit Diagnoses Not on filedocumented in this encounter Care Teams Hospital Aide Relationship Specialty Start Date End Date Matheus Feliciano M.B.B.S., M.D. PCP - General Family Medicine 01/09/[address] [place], [place] [address] [phone] documented as of this encounter
--- OUTSIDE RECORDS SUMMARY | 2022-04-10 14:50 | XMS_ITS | Encounter Summary ---
:1980 Author Organization [facility] Address [address] [place] [address] Care Team Providers Name Role Phone Matheus Feliciano M.D. Primary Care Provider [phone] Reason for Visit Reason Comments Med Refill Encounter Details Date Type Department Care Team Description 11/18/2021 Refill Department of Family Medicine, Matheus Feliciano I., Med Refill [facility], in [place], [place] 300 [facility] [address] [place] [address] [place] [address] [phone] Social History Tobacco Use Types Packs/Day Years [...] or relatives? How often do you attend restorationism or Never 2021 latter day services? Do you belong to any clubs or Yes 09/02/2021 organizations such as restorationism groups, unions, fraternal or athletic groups, or [...] place to sleep or slept in a residential (including now)? Education Answer Date Recorded What is the highest level of school you have completed or th e 9th grade 11/26/2020 highest degree you have received? 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 PCP - General Family Medicine 01/09/[address] [place] [address] PANKAJ Velez [phone] documented as of this encounter
--- OUTSIDE RECORDS SUMMARY | 2022-04-10 14:50 | XMS_ITS | Encounter Summary ---
:1980 Author Organization [facility] Address [address] [place] [address] Care Team Providers Name Role Phone Matheus Feliciano M.D. Primary Care Provider [phone] Reason for Referral Outpatient (Routine) - Closed Specialty Diagnoses / Procedures Referred By Contact Refer red To Contact Plastic Surgery Joe Ziegler M.D., [facility] [place] [address] Referral ID Status Reason Start Date Expiration Date Visits Requ ested Visits Authorized [id number] Closed 10/31/2021 10/31/2022 1 1 Scheduling Instructions 11/01/21 1300 with Nicol Encounter Details Date Type Department Care Team Description 10/31/2021 Orders Only Division of Plastic Surgery Elayne Ziegler, in [facility] tomas Perez, Ph.D. [address] [place] [address] [place] [phone] Social History Tobacco Use Types Packs/Day Years [...] or relatives? How often do you attend gnosticist or Never 2021 evangelical services? 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 PCP - General Family Medicine 01/09/[address] [place] [address] [place] [address] documented as of this encounter
--- OUTSIDE RECORDS SUMMARY | 2022-04-10 14:50 | XMS_ITS | Encounter Summary ---
:1980 Author Organization [facility] Address [address] [place] [id number] Care Team Providers Name Role Phone Matheus Feliciano M.D. Primary Care Provider [phone] Encounter Details Date Type Department Care Team Description 12/03/2021 Ancillary Procedure Department of Plastic and Reconstructive [...] or relatives? How often do you attend spiritism or Never 2021 adventism services? 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 documented in this encounter Results Abdomen Panniculectomy-Plastic And Recon Surgery Image Exam (12/03/2021 12:00 PM CDT) Specimen (Source) Anatomical Collection Method Collection Time Re ceived Time Location / / Volume Laterality 12/03/2021 12:00 PM CDT Narrative [facility] - 12/03/2021 3:43 PM CDT This order has been created [...] filedocumented in this encounter Care Teams Manager Of Case Management Relationship Specialty Start Date End Date Matheus Feliciano M.B.BRafalS., MDonald. PCP - General Family Medicine 01/09/[address] [place] [address] [place] [id number] documented as of this encounter
--- OUTSIDE RECORDS SUMMARY | 2022-04-10 14:50 | XMS_ITS | Encounter Summary ---
:1980 Author Organization [facility] Address [address] [place] [address] Care Team Providers Name Role Phone Matheus Feliciano M.D. Primary Care Provider [phone] Reason for Visit Reason Comments Back Pain Low back pain has increased over time Appointment Request (Routine) - Closed Specialty Diagnoses / Procedures Referred By Contact Refer red To Contact Family Medicine Referral ID Status Reason Start Date Expiration Date Visits Requ ested Visits Authorized [id number] Closed 12/20/2021 12/20/2022 1 1 Encounter Details Date Type Department Care Team Description 12/27/2021 Office Visit Department of Family Matheus Feliciano Pain Low Back Medicine, Prabhu Parmar, Sb suh (Primary Clinic, in [place]) [place] [address] [facility] [address] [place] [id number] Social History Tobacco Use Types Packs/Day Years [...] or relatives? How often do you attend evangelical or Never 2021 rastafarian services? Do you belong to any clubs or Yes 09/02/2021 organizations such as evangelical groups, unions, fraternal or athletic groups, or [...] place to sleep or slept in a care home (including now)? Education Answer Date Recorded What is the highest level of school you have completed or th e 9th grade 11/26/2020 highest degree you have received? 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 - 12/27/2021 3:15 PM CDT SUBJECTIVE CHIEF COMPLAINT / REASON FOR VISIT Gricelda Roberts is a 41 y.o. female who presents for evaluation of Back Pain (Low back pain has increased over time). HISTORY OF PRESENT ILLNESS Gricelda Roberts is a 41-year-old female who is status post gastric bypass with recent panniculectomy in September. She has a history of chronic low back pain and has had acute exacerbation over the last month. She describes a sharp stabbing pain in her lower back which is nonradiating. There is no associated numbness or tingling in extremities. There is no associated saddle anesthesia or incontinence. She denies headaches, focal weakness, fever or chills. The following portions of the patient's history were reviewed and updated as appropriate: allergies,current medications, family history, medical history, social history, surgical history and problem list. REVIEW OF SYSTEMS Pertinent items are noted in HPI. OBJECTIVE BP 105/75 (BP Location: Left arm, Patient Position: Sitting, Cuff Size: Regular) Comment: avg of 3 Pulse 68 Temp 36.4 ??C Wt 68 kg BMI 25.47 kg/m?? PHYSICAL EXAM General Appearance: healthy, alert, no distress, cooperative. Skin: skin color, texture, turgor normal, no suspicious rashes or lesions. Head: normocephalic, no masses, lesions, tenderness or abnormalities. Eyes: Anicteric sclera. Pupils are equally round and reactive to light. Extraocular movements are intact. . Back: There is pain with palpation of lumbar vertebrae extending to the right. Neurologic: Gait normal. Reflexes normal and symmetric. Sensation grossly intact.. ASSESSMENT / PLAN #1 Pain Low Back Unspecified Reviewed with Gricelda the typical course of back pain, including that the majority of patients are improved within six weeks. Reviewed red flags that should prompt a return evaluation. Gricelda was offered physical therapy which she declined. Discussed proper care of back, including relative rest and lifting. Lengthy discussion on pain control options, including NSAIDs, Flexeril/Valium, oral steroids, narcotics, heat, ice, massage and hot tubs. Patient will return if no improvement in next 2-4 weeks. documented in this encounter Plan of Treatment Not on filedocumented as of this encounter Visit Diagnoses Diagnosis Pain Low Back Unspecified - Primary documented in this encounter Care Teams Pulpwood Cutter Relationship Specialty Start Date End Date Matheus Feliciano M.B.BRafalSRafal, M.Jori. PCP - General Family Medicine 01/09/[address] [place] [address] Faye AtokaPANKAJ woody [id number] documented as of this encounter
--- OUTSIDE RECORDS SUMMARY | 2022-04-10 14:51 | XMS_ITS | Encounter Summary ---
:1980 Author Organization [facility] Address [address] [place] [id number] Care Team Providers Name Role Phone Matheus Feliciano M.D. 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 [place] [id number] [place] [address] Social History Tobacco Use Types Packs/Day Years [...] or relatives? How often do you attend baptist or Never 2021 baptism services? 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 OPERATOR documented as of this encounter Last Filed Vital Signs Vital Sign Reading Time Taken Comments Blood Pressure 116/79 10/08/2021 10:45 AM REELER OPERATOR Pulse 74 10/08/2021 10:45 AM REELER OPERATOR Temperature 36.6 ??C (97.9 ??F) 10/08/2021 10:45 AM REELER OPERATOR Respiratory Rate 16 10/08/2021 10:45 AM REELER OPERATOR Oxygen Saturation 100% 10/08/2021 10:45 AM REELER OPERATOR Inhaled Oxygen Concentration - - Weight 69.2 kg (152 lb 8.9 oz) 10/07/2021 7:22 AM REELER OPERATOR Height 162 cm (5' 3.78) 10/07/2021 7:22 AM REELER OPERATOR Body Mass Index 26.37 10/07/2021 7:22 AM REELER OPERATOR documented in this encounter Discharge Summaries Omkar Moore M.D. - 10/07/2021 11:13 AM CST DISCHARGE SUMMARY BRIEF OVERVIEW Hospital: [facility] Discharge Provider: Prasanth Ziegler M.D. Primary Team: [facility] Plastic Surgery - Karlie Primary Care Providers: Matheus Feliciano M.B.B.S., M.D. (General) [address] [place] [id number] Primary Care Provider Primary Care Provider Other Providers: None Admission Date: 10/07/2021 Discharge Date: 10/07/2021 PRINCIPAL DIAGNOSIS Pannus Abdominal SECONDARY DIAGNOSES Principal Problem: Pannus Abdominal Surgery Information This Encounter Past and Present Procedures (10/07/2020 to Today) Date Procedures Providers Location 10/07/2021 PANNICULECTOMY. Prasanth Ziegler M.D., Ph.D.Omkar Moore M.D.Gricelda Bosch M.D. RST ROEI OR DISCHARGE DISPOSITION Home or Self Care [1] ACTIVE ISSUES REQUIRING FOLLOW UP None OUTPATIENT FOLLOW UP Scheduled Appointments 10/16/2021 10:30 AM Nicol Mcdonald P.A.-C. Plastic Surgery For appointment details refer to your Patient Appointment Guide. TEST RESULTS PENDING AT DISCHARGE Pending Labs None DETAILS OF HOSPITAL STAY REASON FOR ADMISSION Pannus Abdominal HOSPITAL COURSE Gricelda Roberts presented to [facility] [place] [facility] for surgical management of her abdominal skin redundancy. She was admitted on the day of surgery and taken to the operating room for the planned procedure. She tolerated the procedure well and was admitted to the Plastic Surgery Service under the direction of Dr. Ziegler following the procedure for continued observation and monitoring. She progressed in the usual post-operative fashion without complications. She was given liquids by mouth and eventually transitioned to a general diet. When she was tolerating a diet, pain was well controlled with oral pain medications, she was mobilizing without difficulty and her bowel and bladder function were acceptable, she was dismissed from the hospital. CONSULTS ORDERED DURING THIS ADMISSION None CONDITION AT DISCHARGE Stable Discharge instructions were provided to the patient and caregiver(s). ER OPERATOR documented in this encounter Discharge Instructions AttachmentsThe following attachments cannot be sent through Care Everywhere. Enoxaparin (By injection) (Welsh)Oxycodone, Rapid Release (By mouth) (Welsh) Laxative, Stimulant Combination (By mouth) (Welsh)documented in this encounter Medications at Time of [...] B12) 1,000 INTRAMUSCULARLY EVERY mcg/mL injection MONTH enoxaparin (LOVENOX) Inject 0.4 mL (40 mg 2.8 mL 0 10/07 40 mg/0.4 mL injection total) under the skin daily for 7 days. fluticasone (FLONASE) Administer 2 sprays 16 g [...] TAKE ONE CAPSULE BY 90 capsule 3 10/12/202011/09 (STRATTERA) 80 mg MOUTH EVERY DAY capsule [...] 1 tablet (5 mg 15 tablet 0 09/1110/14/2021 5 mg immediate release total) by mouth [...] mg per tablet Use while taking oxycodone traZODone (DESYREL) 50 TAKE 1 TABLET(50 MG) 30 tablet 3 11/18/2021 mg tablet BY MOUTH AT BEDTIME NEEDED FOR SLEEP trospium (SANCTURA) 20 Take 1 tablet (20 mg 180 tablet 3 12/202001/29/2022 mg tablet total) by mouth 2 (two) times a day before breakfast and dinner. documented as of this encounter Progress Notes Harjeet Brown Pharm.D., R.Ph. - 10/07/2021 7:26 AM CST Images from the original note were not included. Admission Medication History Note Adherence issues: No concerns Medication list source: Patient Prior to Admission Medications Med List Status: Pharmacy Complete Set By: Harjeet Brown, PharmRafalD., R.Ph. at 10/07/2021 7:25 AM Taking? Last Dose Informant Start Date End Date LT atomoxetine (STRATTERA) 80 mg capsule 10/06/2021 10/12/20 -- TAKE ONE CAPSULE BY MOUTH EVERY DAY busPIRone (BUSPAR) 30 mg tablet 10/06/2021 05/22/21 -- TAKE 1 TABLET(30 MG) BY MOUTH TWICE DAILY calcium carbonate (OS-MARCELLUS) 1,250 mg (500 mg calcium) tablet 10/06/2021 -- -- Take 500 mg of calcium by mouth daily. capsaicin (ARTHRITIS PAIN RELIEF,CAPSAIC,) 0.1 % cream Not Taking 02/17/19 -- Apply 1 application topically 3 (three) times a day as needed (Knee pain). Patient not taking: Reported on 10/07/2021 cetirizine (ZyrTEC) 10 mg tablet 10/06/2021 11/10/16 -- Take 1 tablet by mouth 2 (two) times a day. cholecalciferol (VITAMIN D3) 50 mcg (2,000 Unit) tablet 10/06/2021 Self -- -- Take 2,000 Units by mouth daily. cyanocobalamin (VITAMIN B12) 1,000 mcg/mL injection 09/24/2021 03/29/21 -- INJECT 1ML INTRAMUSCULARLY EVERY MONTH cyclobenzaprine (FLEXERIL) 10 mg tablet 10/06/2021 10/01/21 -- TAKE 1 TABLET(10 MG) BY MOUTH AT BEDTIME NEEDED FOR MUSCLE SPASMS escitalopram (LEXAPRO) 20 mg tablet 10/06/2021 03/04/21 -- TAKE 1 TABLET BY MOUTH EVERY DAY fluticasone (FLONASE) 50 mcg/actuation nasal spray 10/05/2021 08/26/18 -- Administer 2 sprays into each nostril daily. gabapentin (NEURONTIN) 300 mg capsule 10/06/2021 07/08/21 -- TAKE 3 CAPSULES(900 MG) BY MOUTH THREE TIMES DAILY ketoconazole (NIZORAL) 2 % cream Past Month 06/10/21 -- Apply 1 application topically 2 (two) times a day. Apply to abdominal wall. levETIRAcetam (KEPPRA) 500 mg tablet 10/06/2021 07/08/21 -- TAKE 1 TABLET(500 MG) BY MOUTH TWICE DAILY lidocaine (LIDODERM) 5 % Past Month 08/26/18 -- Place 1 patch on the skin daily. Apply to intact skin and remove patch after a maximum of 12 hr of application within a 24 hr period MULTIVITAMIN ORAL 10/06/2021 Self -- -- Take 1 tablet by mouth daily. omega-3 fatty acids-fish oil 300-1,000 mg capsule 10/06/2021 -- -- Take 1 g by mouth daily. 1200 mg ondansetron ODT (ZOFRAN-ODT) 4 mg disintegrating tablet Past Month 01/23/21 -- Take 1 tablet (4 mg total) by mouth as needed for nausea. pantoprazole (PROTONIX) 20 mg EC tablet 10/06/2021 07/03/21 -- Take 20 mg by mouth 2 (two) times a day. promethazine (PHENERGAN) 25 mg tablet Unknown Self 05/14/14 -- Take 25 mg by mouth as needed for nausea. propranoloL (INDERAL) 20 mg tablet 10/06/2021 02/05/21 -- Start with 1 tablet by mouth twice daily. After 2 weeks, if tolerated may increase to 2 tablets twice daily. Patient taking differently: Take 40 mg by mouth 2 (two) times a day. Start with 1 tablet by mouth twice daily. After 2 weeks, if tolerated may increase to 2 tablets twice daily. SUMAtriptan (IMITREX) 100 mg tablet Past Month 06/24/21 -- Take 1 tablet (100 mg total) by mouth as needed for migraine. traZODone (DESYREL) 50 mg tablet 10/06/2021 07/23/21 -- TAKE 1 TABLET(50 MG) BY MOUTH AT BEDTIME NEEDED FOR SLEEP trospium (SANCTURA) 20 mg tablet 10/06/2021 01/12/21 01/12/22 Take 1 tablet (20 mg total) by mouth 2 (two) times a day before breakfast and dinner. ZOLMitriptan (ZOMIG) 5 mg tablet Not Taking 06/24/21 -- Take 1 tablet (5 mg total) by mouth as needed for migraine. Patient not taking: Reported on 10/07/2021 ER OPERATOR documented in this encounter Nursing Notes Scotty Marrufo R.N. - 10/08/2021 10:52 AM CST Shift Goals: Clinical Goals for the Shift: Ambulation and pain control Identify possible barriers to meeting goals/advancing plan of care: None End of Shift Summary: Patient's pain managed with scheduled and ordered PRN medications. Vital signswere stable throughout shift. The patient's urine output remains to be in adequate amounts. Discharge education was given with no barriers. Patients demonstrated giving the Lovenox injection and emptying the drains. Patient needs addressed during the shift. Patient left the unit with non nursing staff in a wheelchair. No acute events. Problem: SAFETY ADULT Goal: Maintain a safe environment Outcome: Adequate for Discharge Problem: SAFETY ADULT - RISK FOR FALL AND OR FALL INJURY Goal: Patient remains free from fall/fall injury Outcome: Adequate for Discharge ER OPERATOR documented in this encounter OR Notes Op Note - Prasanth Ziegler M.D., Ph.D. - 10/07/2021 9:16 AM CST Pre-op Diagnosis Pannus Abdominal Post-op Diagnosis Pannus Abdominal A first aid trainer actively participated and was necessary for one or more of the following: opening,exposure and visualization during the case, maintaining hemostasis, wound closure resulting in its safe and expeditious completion. Findings As expected. 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 She now presents for a panniculectomy. Risks and benefits of the procedure were reviewed with the patient and informed consent was obtained. SPECIMEN: Abdominal pannus = 1417 gm PROCEDURE: Patient was seen in the preoperative will holding area and marked. She was then taken back to the operating room and placed in the supine position. General endotracheal anesthesia was provided by the anesthesiology team. Her abdomen was then sterilely prepped and draped in the standard surgical fashion. Next, the markings were verified and an incision was made with a 10 blade through skin and dermis. Continued dissection with electrocautery down to the anterior rectus sheath, then superiorly towards the costal margin. Large vessels were dissected from the surrounding subcutaneous tissue and cauterized. Once we encountered the umbilicus, it was amputated at the base with a 15 blade and electrocautery. No umbilical hernia was noted. The defect was closed with a [id number] stitch using 2-0 Vicrylsuture. The patient's bed was then slightly flexed and the superior skin flap was advanced inferiorly. The upper limit of the excision was then marked. The pannus was then excised with a 10 blade and electrocautery. It was then passed off the table for permanent pathology. Additional bleeding was controlled with electrocautery. We thoroughly irrigated the wound with DABS irrigation. The incision was then tailor tacked closed with jason. Two 19 Pashto channel drains were placed in the subcutaneous plane and brought out the lateral incision. It was secured with 3-0 nylon. Due to her subcostal scar,I was concerned about ischemia of the central abdominal skin so the spy device was brought into the field and we evaluated the perfusion of this area. Our anesthesiology team administered 12.5 mg of the ICG dye followed by a 10 cc saline flush. There was good perfusion of the area of concern. The abdominal incision was then closed with 2-0 Vicryl for deep stitches, then 3-0 Monocryl for deepdermal stitches and 3-0 Monoderm for running subcuticular stitch. The skin overlying the umbilicus was excised utilizing an elliptical incision and the umbilicus was inset using 3-0 Monocryl for deep dermal stitches and 4-0 nylon for a half buried horizontal mattress stitches. Next we cut a Prevena sponge to fit the incision and applied continuous suction at 100 mm Hg. The umbilicus was dressed with Xeroform 4x4s and a Tegaderm. The drains were dressed in a similar fashion. Sponge instrument counts were correct in the case. I was scrubbed present for the entire case. Prasanth Ziegler M.D., Ph.D. ER OPERATOR Brief Op Note - Omkar Moore M.D. - 10/07/2021 8:13 AM CST Pre-op Diagnosis Pannus Abdominal Post-op Diagnosis Pannus Abdominal Findings As expected. Complications None Procedures 1. Panniculectomy Omkar Moore M.D. ER OPERATOR documented in this encounter Miscellaneous Notes Hospital Course - Omkar Moore M.D. - 10/07/2021 11:13 AM CST Gricelda Roberts presented to [facility] for surgical management of her abdominal skin redundancy. She was admitted on the day of surgery and taken to the operating room for the planned procedure. She tolerated the procedure well and was admitted to the Plastic Surgery Service under the direction of Dr. Ziegler following the procedure for continued observation and monitoring. She progressed in the usual post-operative fashion without complications. She was given liquids by mouth and eventually transitioned to a general diet. When she was tolerating a diet, pain was well controlled with oral pain medications, she was mobilizing without difficulty and her bowel and bladder function were acceptable, she was dismissed from the hospital. ER OPERATOR documented in this encounter Plan of Treatment Not on filedocumented as of this encounter Procedures Procedure Name Priority Date/Time Associated Diagnosis Comme nts PANNICULECTOMY 10/07/2021 8:09 AM REELER OPERATOR Pannus Abdominal documented in this encounter Visit Diagnoses Diagnosis Pannus Abdominal - Primary documented in this encounter Admitting Diagnoses Diagnosis Pannus Abdominal documented in this encounter Administered Medications Inactive Administered Medications - up to 3 most recent administrations Medication Order MAR Action Action Date Dose Rate Site acetaminophen tablet 1,000 mg Given 10/07/2021 7:31 AM REELER OPERATOR 1,000 mg (TYLENOL) 1,000 mg, oral, Once, On Thu10/07/21 at 0700, For 1 dose, Pre-Op, Electric Fan Assembler, PreOp with sips acetaminophen tablet 1,000 mg (TYLENOL) Given 10/08/2021 8:01 AM REELER OPERATOR 1,000 mg 1,000 mg, oral, Every 6 hours, First dose on Thu10/07/21 at 1400 Given 10/08/2021 1:04 AM REELER OPERATOR 1,000 mg Given 10/07/2021 8:11 PM REELER OPERATOR 1,000 mg amoxicillin capsule 500 mg (AMOXIL) Given 10/07/2021 9:21 PM REELER OPERATOR 500 mg 500 mg, oral, Every 8 hours scheduled, First dose on Thu10/07/21 at 1400, For 2 doses, Drug Monitoring Program: Pharmacist to adjust medication dosing based on indication and drug clearance factors., Indications: Prophylaxis, surgical Given 10/07/2021 2:28 PM REELER OPERATOR 500 mg atomoxetine capsule 80 mg (STRATTERA) Given 10/08/2021 8:00 AM REELER OPERATOR 80 mg 80 mg, oral, Daily, First dose on Thu10/08/21 at 0900, Swallow whole. Do NOT crush, chew or open capsule. busPIRone tablet 30 mg (BUSPAR) Given 10/08/2021 8:01 AM REELER OPERATOR 30 mg 30 mg, oral, 2 times daily, First dose on Thu10/07/21 at 2100 Given 10/07/2021 8:11 PM REELER OPERATOR 30 mg cyclobenzaprine tablet 10 mg (FLEXERIL) Given 10/07/2021 8:11 PM REELER OPERATOR 10 mg 10 mg, oral, Bedtime PRN, muscle spasms, Starting on Thu10/07/21 at 1307 enoxaparin injection 40 mg Given 10/08/2021 8:00 AM REELER OPERATOR 40 mg Left Upper Arm (LOVENOX) (Back) 40 mg, subcutaneous, Daily, First dose on Thu10/08/21 at 0900, Drug Monitoring Program: Pharmacist to adjust medication dosing based on indication and drug clearance factors. escitalopram tablet 20 mg (LEXAPRO) Given 10/08/2021 8:00 AM REELER OPERATOR 20 mg 20 mg, oral, Daily, First dose on Thu10/08/21 at 0900 fentaNYL injection 25 mcg (SUBLIMAZE) Given 10/07/2021 11:47 AM REELER OPERATOR 25 mcg 25 mcg, intravenous, Every 2 min PRN, For pain 4 or greater (maximum 100 mcg). If max dose of Fentanyl is reached and if pain is greater than 4, discontinue Fentanyl: give Hydromorphone, Starting on Thu10/07/21 at 1137, PACU (only) Given 10/07/2021 11:44 AM REELER OPERATOR 25 mcg Given 10/07/2021 11:42 AM REELER OPERATOR 25 mcg gabapentin capsule 900 mg (NEURONTIN) Given 10/08/2021 8:01 AM REELER OPERATOR 900 mg 900 mg, oral, 3 times daily, First dose on Thu10/07/21 at 1400 Given 10/07/2021 8:11 PM REELER OPERATOR 900 mg Given 10/07/2021 2:28 PM REELER OPERATOR 900 mg gabapentin capsule 900 mg (NEURONTIN) Given 10/07/2021 12:33 PM REELER OPERATOR 900 mg 900 mg, oral, Once, On Thu10/07/21 at 1245, For 1 dose, PACU (only) granisetron (PF) injection 1 mg (KYTRIL) Given 10/07/2021 11:38 AM REELER OPERATOR 1 mg 1 mg, intravenous, Once as needed, nausea, vomiting, Starting on Thu10/07/21 at 1137, For 1 dose, PACU (only), If patient does not respond to ondansetron or haloperidol. (order of antiemetic administration - ondansetron then haloperidol then granisetron) HYDROmorphone (PF) injection 0.2 mg Given 10/07/2021 11:59 AM CS T 0.2 mg (DILAUDID) 0.2 mg, intravenous, Every 5 min PRN, moderate pain or score 4-6 of 10, severe pain or score 7-10 of 10, Starting on Thu10/07/21 at 1137, PACU (only), Up to maximum total dose of 2 mg Given 10/07/2021 11:53 AM REELER OPERATOR 0.2 mg Given 10/07/2021 11:47 AM REELER OPERATOR 0.2 mg lactated ringers New Bag 10/07/2021 7:13 PM REELER OPERATOR 50 mL/hr 50 mL/hr 50 mL/hr, intravenous, Continuous, Starting on Thu10/07/21 at 1100, PACU & Post-Op Continued from OR 10/07/2021 11:41 AM REELER OPERATOR 50 mL/hr 50 mL/hr levETIRAcetam tablet 500 mg (KEPPRA) Given 10/08/2021 8:01 AM REELER OPERATOR 500 mg 500 mg, oral, 2 times daily, First dose on Thu10/07/21 at 2100 Given 10/07/2021 8:11 PM REELER OPERATOR 500 mg levETIRAcetam tablet 500 mg (KEPPRA) Given 10/07/2021 11:57 AM REELER OPERATOR 500 mg 500 mg, oral, Once, On Thu10/07/21 at 1145, For 1 dose, PACU (only), Missed AM dose. Give now in PACU. loratadine tablet 10 mg (CLARITIN) Given 10/08/2021 8:00 AM REELER OPERATOR 10 mg 10 mg, oral, 2 times daily, First dose (after last modification) on Thu10/07/21 at 2100, loratadine 10 mg oral daily was interchanged for cetirizine Given 10/07/2021 8:11 PM REELER OPERATOR 10 mg oxyCODONE IR tablet 10 mg (ROXICODONE) Given 10/07/2021 11:49 AM REELER OPERATOR 10 mg 10 mg, oral, Once as needed, For pain 4 or greater, Starting on Thu10/07/21 at 1137, For 1 dose, PACU (only) oxyCODONE IR tablet 10 mg (ROXICODONE) Given 10/08/2021 8:01 AM REELER OPERATOR 10 mg 10 mg, oral, Every 4 hours PRN, severe pain or score 7-10 of 10, for breakthrough pain, Starting on Thu10/07/21 at 0855 Given 10/07/2021 9:21 PM REELER OPERATOR 10 mg Given 10/07/2021 5:17 PM REELER OPERATOR 10 mg oxyCODONE IR tablet 5 mg (ROXICODONE) 5 mg, oral, Every 4 hours PRN, moderate pain or score 4-6 of 10, for breakthrough pain, Starting on Thu10/07/[address] tablet 20 mg (PROTONIX) Given 10/08/2021 8:01 AM REELER OPERATOR 20 mg 20 mg, oral, 2 times daily, First dose on Thu10/07/21 at 2100, Swallow whole. Do NOT crush, chew, or split tablet. Given 10/07/2021 8:11 PM REELER OPERATOR 20 mg promethazine tablet 25 mg (PHENERGAN) Given 10/07/2021 2:25 PM REELER OPERATOR 25 mg 25 mg, oral, Daily PRN, nausea, Starting on Thu10/07/21 at 1333 propranoloL tablet 40 mg (INDERAL) Given 10/08/2021 8:01 AM REELER OPERATOR 40 mg 40 mg, oral, 2 times daily, First dose on Thu10/07/21 at 2100 Given 10/07/2021 8:11 PM REELER OPERATOR 40 mg sennosides-docusate sodium 8.6-50 mg per Given 10/08/2021 8:01 A M REELER OPERATOR 1 tablet tablet 1 tablet (SENOKOT-S) 1 tablet, oral, Every 12 hours, First dose on Thu10/07/21 at 2100, do not give if patient has diarrhea. Given 10/07/2021 8:11 PM REELER OPERATOR 1 tablet sodium chloride 0.9 % injection 3 mL Given 10/08/2021 8:06 AM REELER OPERATOR 3 mL 3 mL, intravenous, Every 12 hours scheduled, First dose on Thu10/07/21 at 2100, Peripheral Intravenous Catheter and Rapid Infusion Catheter, when no infusion to maintain patency trospium tablet 20 mg (SANCTURA) Given 10/08/2021 5:58 AM REELER OPERATOR 20 mg 20 mg, oral, 2 times daily before breakfast and dinner, First dose on Thu10/07/21 at 2045, Administer with water at least 1 hr prior to meals., Restriction Criteria (Pharmacy will review and approve if criteria met): After hours OR urgent first dose Given 10/07/2021 9:21 PM REELER OPERATOR 20 mg documented in this encounter Active and Recently Administered Medications Times are shown in REELER OPERATOR. Scheduled Medication Order 10/06/2021 10/07/2021 10/08/2021 acetaminophen tablet 1,000 mg (TYLENOL) (COMPLETED) 8190 (Given - Provider: Erich Phelan R.N.) 1,000 mg, oral, Once, On Thu10/07/21 at 0700, For 1 dose, Pre-Op, Electric Fan Assembler, PreOp with sips acetaminophen tablet 1,000 mg (TYLENOL) 142 (Given - Provider: Jane Keenan R.N.)2010 (Given - Provider: Blanka Lau R.N.) 103 (Given - Provider: Hazel Funes R.N.)08 (Given - Provider: Scotty Marrufo R.N.) 1,000 mg, oral, Every 6 hours, First dose on Thu10/07/21 at 1400 amoxicillin capsule 500 mg (AMOXIL) (COMPLETED) 142 (Given - Provider: Jane Keenan R.N.)2120 (Given - Provider: Blanka Lau R.N.) 500 mg, oral, Every 8 hours scheduled, F irst dose on Thu10/07/21 at 1400, For 2 doses, Drug Monitoring Program: Pharmacist to adjust medication dosing based on indication and drug clearance factors., Indications: Prophylaxis, surgical atomoxetine capsule 80 mg (STRATTERA) 0800 (Given - Provider: Scotty Marrufo RRafalNRafal) 80 mg, oral, Daily, First dose on 08/31 at 0900, Swallow whole. Do NOT crush, chew or open capsule. busPIRone tablet 30 mg (BUSPAR) 2010 (Gi tru - Provider: Blanka Lau RRafalNRafal) 08 (Given - Provider: Scotty norton RRafalNRafal) 30 mg, oral, 2 times daily, First dose on Thu10/07/21 at 2100 clindamycin in D5W IVPB 900 mg (CLEOCIN) (COMPLETED) 08 (Given - Provider: Johnathon Ardon)1053 (Anesthesia Volume Adjustment - Provider: Johnathon Ardon) 900 mg, intravenous, at 100 mL/hr, Admin ister over 30 Minutes, Once, On Thu10/07/21 at 0730, For 1 dose, Intra-Op, Administer within 1 hour prior to surgical incisi, Indications: Prophylaxis, surgical enoxaparin injection 40 mg (LOVENOX) 0800 (Given - Provider: Scotty Marrufo R.N.) 40 mg, subcutaneous, Daily, First dose o n Thu10/08/21 at 0900, Drug Monitoring Program: Pharmacist to adjust medication dosing based on indication and drug clearance factors. escitalopram tablet 20 mg (LEXAPRO) 0800 (Given - Provider: Scotty Marrufo R.N.) 20 mg, oral, Daily, First dose on Thu10/08/21 at 0900 fluticasone propionate 50 mcg/actuation nasal spray 2 spray (ISELA NASE) 08 (Not Given - Provider: Scotty Marrufo R.N. - Reason: Patient/family refused) 2 spray, each nostril, Daily, First dose on Thu10/08/21 at 0900 gabapentin capsule 900 mg (NEURONTIN) 14 (Given - Provider: Jane Keenan R.N.)2010 (Given - Provider: Blanka Lau R.N.) 0801 (Given - Provider: Scotty Marrufo R.N.) 900 mg, oral, 3 times daily, First dose on Thu10/07/21 at 1400 gabapentin capsule 900 mg (NEURONTIN) (COMPLETED) 1233 (Given - Provider: Gricelda Tate RRfaalNRafal) 900 mg, oral, Once, On Thu10/07/21 at 1245, For 1 dose, PACU (on ly) levETIRAcetam tablet 500 mg (KEPPRA) 201 1 (Given - Provider: Blanka Lau R.N.) 0801 (Given - Provider: Scotty norton RIsiah) 500 mg, oral, 2 times daily, First dose on Thu10/07/21 at 2100 levETIRAcetam tablet 500 mg (KEPPRA) (COMPLETED) 1157 (Given - Provider: Katia Moralez RRafalNRafal) 500 mg, oral, Once, On Thu10/07/21 at 11 45, For 1 dose, PACU (only), Missed AM dose. Give now in PACU. loratadine tablet 10 mg (CLARITIN) 2010 (Given - Provider: Blanka Lau R.N.) 0800 (Given - Provider: Scotty norton R.N.) 10 mg, oral, 2 times daily, First dose ( after last modification) on Thu10/07/21 at 2100, loratadine 10 mg oral daily was interchanged for cetirizine pantoprazole DR tablet 20 mg (PROTONIX) 2010 (Given - Provider: Blanka Lau R.N.) 800 (Given - Provider: Scotty norton R.N.) 20 mg, oral, 2 times daily, First dose o n Thu10/07/21 at 2100, Swallow whole. Do NOT crush, chew, or split tablet. propranoloL tablet 40 mg (INDERAL) 2010 (Given - Provider: Blanka Lau R.N.) 800 (Given - Provider: Scotty norton R.N.) 40 mg, oral, 2 times daily, First dose on Thu10/07/21 at 2100 sennosides-docusate sodium 8.6-50 mg per tablet 1 tablet (SE NOKOT-S) 2010 (Given - Provider: Blanka Lau R.N.) 800 (Given - Provider: Scotty Marrufo R.N.) 1 tablet, oral, Every 12 hours, First do se on Thu10/07/21 at 2100, do not give if patient has diarrhea. sodium chloride 0.9 % injection 3 mL 212 7 (Not Given - Provider: Blanka Lau R.N. - Reason: Contraindicated) 805 (Given - Provider: Scotty Marrufo R.N.) 3 mL, intravenous, Every 12 hours schedu led, First dose on Thu10/07/21 at 2100, Peripheral Intravenous Catheter and Rapid Infusion Catheter, when no infusion to maintain patency trospium tablet 20 mg (SANCTURA) 2120 (G iven - Provider: Blanka Lau RRafalNRafal) 0558 (Given - Provider: Shubham Baig) 20 mg, oral, 2 times daily before breakf ast and dinner, First dose on Thu10/07/21 at 204, Administer with water at least 1 hr prior to meals., Restriction Criteria (Pharmacy will review and approve if criteria met): After hours OR urgent first dose Continuous Medication Order 10/06/2021 10/07/2021 10/08/2021 lactated ringers 1141 (Continued from OR - Provider: Katia Moralez, R.N.)1913 (New Bag - Provider: Jane Keenan RRafalN.) 0800 (Stopped - Provider: Scotty Marrufo RRafalNRafal) 50 mL/hr, intravenous, Continuous, Start ing on Thu10/07/21 at 1100, PACU & Post-Op PRN Medication Order 10/06/2021 10/07/2021 10/08/2021 bisacodyL suppository 10 mg (DULCOLAX) 10 mg, rectal, Every 12 hours PRN, const ipation, if no bowel movement in 48 hours, Starting on Thu10/07/21 at 1307, (Avoid use in patients with distal colon surgery) bupivacaine liposome (PF) 20 mL, bupivac alok 30 mL in sodium chloride (PF) 0.9 % 100 mL injection (CANCELED) 1009 (Given - Provider: Ralph Ziegler M.D., Ph.D. - Comment: abdomen) As needed, Starting on Thu10/07/21 at 1009, Intra-Op calcium carbonate chewable tablet 200 mg of calcium (TUMS) 200 mg of calcium, oral, Every 2 hour UT N, indigestion, Starting on Thu10/07/21 at 1307, Do not exceed 12 tablets per day 500 mg calcium carbonate contains 200 mg of elemental calcium. cyclobenzaprine tablet 10 mg (FLEXERIL) 2010 (Given - Provider: Blanka Lau RRafalNRafal) 10 mg, oral, Bedtime PRN, muscle spasms, Starting on Thu10/07/21 at 1307 fentaNYL injection 25 mcg (SUBLIMAZE) (CANCELED) 1140 (Given - Provider: Katia Moralez, R.N.)1142 (Given - Provider: Katia Moralez R.N.)1144 (Given - Provider: Katia Moralez, R.N.)1147 (Given - Provider: Katia Moralez, R.N.) 25 mcg, intravenous, Every 2 min PRN, Fo r pain 4 or greater (maximum 100 mcg). If max dose of Fentanyl is reached and if pain is greater than 4, discontinue Fentanyl: give Hydromorphone, Starting on Thu10/07/21 at 1137, PACU (only) gentamicin-polymixin B 20 mcg/mL-500 uni ts/mL irrigation (DABS_MODIFIED) (COMPLETED) 1005 (Given - Provider: Star Ziegler M.D., Ph.D. - Comment: abdomen) irrigation, Once in surgery, OR use only , Starting on Thu10/07/21 at 0720, For 1 dose, Intra-Op, *IRRIGATION ONLY* granisetron (PF) injection 1 mg (KYTRIL) (COMPLETED) 1138 (Given - Provider: Katia Moralez, R.N.) 1 mg, intravenous, Once as needed, nause a, vomiting, Starting on Thu10/07/21 at 1137, For 1 dose, PACU (only), If patient does not respond to ondansetron or haloperidol. (order of antiemetic administrat ion - ondansetron then haloperidol then granisetron) HYDROmorphone (PF) injection 0.2 mg (DILAUDID) (CANCELED) 1147 (Given - Provider: Katia Moralez, R.N.)1153 (Given - Provider: Katia Moralez, R.N.)1159 (Given - Provider: Katia Moralez, R.N.) 0.2 mg, intravenous, Every 5 min PRN, mo derate pain or score 4-6 of 10, severe pain or score 7-10 of 10, Starting on Thu10/07/21 at 1137, PACU (only), Up to maximum total dose of 2 mg oxyCODONE IR tablet 10 mg (ROXICODONE) (COMPLETED) 1149 (Given - Provider: Katia Moralez, R.N.) 10 mg, oral, Once as needed, For pain 4 or greater, Starting on Thu10/07/21 at 1137, For 1 dose, PACU (only) oxyCODONE IR tablet 10 mg (ROXICODONE)(Linked Group 1) 1717 (Given - Provider: Jane Keenan R.N.)2121 (Given - Provider: Blanka Lau R.N.) 0801 (Given - Provider: Scotty Marrufo R.N.) 10 mg, oral, Every 4 hours PRN, severe p ain or score 7-10 of 10, for breakthrough pain, Starting on Thu10/07/21 at 0855 oxyCODONE IR tablet 5 mg (ROXICODONE)(Linked Group 1) 1717 (See Alternative - Provider: Jane Keenan R.N.)2121 (See Alternative - Provider: Blanka Lau R.N.) 0801 (See Alternative - Provider: Scotty Marrufo R.N.) 5 mg, oral, Every 4 hours PRN, moderate pain or score 4-6 of 10, for breakthrough pain, Starting on Thu10/07/21 at 0855 polyethylene glycol powder packet 1 packet (MIRALAX) 1 packet, oral, Daily PRN, constipation, Starting on Thu10/07/21 at 1307, Dissolve in 240 mLs (8 ounces) of water prior to giving. Avoid mixing with starch-based thickened liquids. promethazine tablet 25 mg (PHENERGAN) 14 25 (Given - Provider: Jane Keenan R.N.) 25 mg, oral, Daily PRN, nausea, Starting on Thu10/07/21 at 1333 sodium chloride 0.9 % injection 10 mL 10 mL, intravenous, As needed, line care , Starting on Thu10/07/21 at 1307, Peripheral Intravenous Catheter and Rapid Infusion Catheter, prior to blood sampling, post blood transfusion or post blood sampling sodium chloride 0.9 % injection 3 mL 3 mL, intravenous, As needed, line care, Starting on Thu10/07/21 at 1307, Prior to and following infusion and between multiple consecutive infusions: sodium chloride 0.9 % injection SUMAtriptan tablet 100 mg (IMITREX) 100 mg, oral, Daily PRN, migraine, Start ing on Thu10/07/21 at 1333, May repeat dose once in 2 hours if migraine unresolved. Do not exceed 200 mg in 24 hours. tranexamic acid 3 g/75 mL (40 mg/mL) in NaCl 0.9% sterile solution 75 mL (COMPLETED) 1006 (Given - Provider: Star Ziegler M.D., Ph.D. - Comment: abdomen) 75 mL, topical, Once in surgery, OR use only, Starting on 2/28/22 at 0720, For 1 dose, Intra-Op, For topical, irrigation, or infiltration use ONLY traZODone tablet 50 mg (DESYREL) 50 mg, oral, Bedtime PRN, sleep, Starting on Thu10/07/21 at 1307 Linked Groups Order Group 1: oxyCODONE IR tablet 5 mg (ROXICODONE)Jump to med 5 mg, oral, Every 4 hours PRN, moderate pain or score 4-6 of 10, for breakthrough pain, Starting on Thu10/07/21 at 0855 Or oxyCODONE IR tablet 10 mg (ROXICODONE)Jump to med 10 mg, oral, Every 4 hours PRN, severe p ain or score 7-10 of 10, for breakthrough pain, Starting on Thu10/07/21 at 0855 documented in this encounter Care Teams Leather Grainer Relationship Specialty Start Date End Date Matheus Feliciano M.B.B.S., M.D. PCP - General Family Medicine 01/09/[address] [place] [address] PANKAJ Velez [phone] documented as of this encounter
--- OUTSIDE RECORDS SUMMARY | 2022-04-10 14:51 | XMS_ITS | Encounter Summary ---
:1980 Author Organization [facility] Address [address] [place] [address] Care Team Providers Name Role Phone Matheus Feliciano M.D. Primary Care Provider [phone] Reason for Referral Outpatient (Routine) - Closed Specialty Diagnoses / Procedures Referred By Contact Refer red To Contact Plastic Surgery Joe Ziegler M.D., [facility] [place] [address] Referral ID Status Reason Start Date Expiration Date Visits Requ ested Visits Authorized [id number] Closed 08/22/2021 08/22/2022 1 1 Scheduling Instructions 7-10 days after 10/07/21 surgery with SENIOR ELECTRICAL ENGINEER/ PA utpatient (Routine) - Closed Specialty Diagnoses / Procedures Referred By Contact Refer red To Contact Plastic Surgery Joe Ziegler M.D., [facility] [place] [address] Referral ID Status Reason Start Date Expiration Date Visits Requ ested Visits Authorized [id number] Closed 08/22/2021 08/22/2022 1 1 Scheduling Instructions 09/06/[address] Ziegler. 30 minutes NESS SPA MANAGER Encounter Details Date Type Department Care Team Description 08/22/2021 Orders Only Division of Plastic Surgery Elayne Ziegler, in [facility] tomas Perez, Ph.D. [address] [place] [address] [place] [phone] Social History Tobacco Use Types Packs/Day [...] do you attend restoration or Never 2021 hoahaoism services? 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 documented as of this encounter Plan of Treatment Scheduled Referrals Name Type Priority Associated Diagnoses Order S chedule Plastic Surgery Outpatient Referral Routine Expec kathleen: Pre Op (clinic) 09/06/2021, Expires: 11/20/2022 Plastic Surgery Outpatient Referral Routine Expec kathleen: office visit 10/15/2021, (clinic) Expires: 11/20/2022 documented as of this encounter Visit Diagnoses Not on filedocumented in this encounter Additional Health Concerns Infection Onset Date Last Indicated Resolved Time COVID19 08/13/2021 08/13/2021 09/02/2021 4:53 AM WELLNESS SPA MANAGER documented as of this encounter Care Teams Flanging Roll Operator Relationship Specialty Start Date End Date Matheus Feliciano M.B.B.S., M.D. PCP - General Family Medicine 01/09/[address] [place] [address] [place] [id number] documented as of this encounter
--- OUTSIDE RECORDS SUMMARY | 2022-04-10 14:51 | XMS_ITS | Encounter Summary ---
:1980 Author Organization [facility] Address [address] [place] [address] Care Team Providers Name Role Phone Matheus Feliciano M.D. 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 [address] [place] [id number] [address] [facility] [place] [address] Anesthesia Record Procedure Summary Procedure Name Responsible Anesthesia Start Time Anesthesia Stop Time Anesthesiologist PANNICULECTOMY. Donis Nick M.D. 10/07/21 0829 10/07/21 11 22 Events Date Time Event Comment 10/07/2021 0757 0829 An Start Machine/Equipmen t Checked Infection Precautions Foll owed Procedure/Site Verified NPO Sta tus Verified Supine Standard ASA Mon itors Applied 0835 An Induction 0838 An Intubation 0839 Turnover to Proceduralist 0916 Proc Start 1104 Proc Fin 1116 Turnover to ANE Staff 1116 Airway Removal Criteria Met 1116 Extubation/Airway Removed 1116 an stop data 1122 An End I completed my h andoff to the receiving staff during [facility] we 1. Identified the patient 2. Ident ified the responsible provider 3. Revi ewed the pertinent medical history 4. Discussed the surgical course 5. Review ed intra-op anesthesia management and i ssues during anesthesia 6. Set expectati ons for post-procedure period 7. Allowe d opportunity for questions and ac knowledgement of understanding. Name Total fentanyl injection 50 mcg/mL 250 mcg lidocaine 2% (mg) injection 100 mg propofol 10 mg/mL 180 mg rocuronium 10 mg/mL injection 80 mg succinylcholine 20 mg/mL injection 100 mg phenylephrine 100 mcg/mL injection 150 mcg ePHEDrine PF 5 mg/mL syringe injection 40 mg ondansetron 4 mg/2 mL injection 4 mg sugammadex 100 mg/mL injection 140 mg clindamycin in D5W IVPB 900 mg (CLEOCIN) 900 mg heparin 5,000 Units/mL injection 5,000 Units dexamethasone 4 mg/mL injection 8 mg ketamine 10 mg/mL injection 20 mg HYDROmorphone PF 2 mg/mL injection 1 mg Lactated Ringers Free Drip 1,300 mL Agents No agents on file. Blood No blood administrations on file. Lines, Drains, and Airways Type Details Placement Removal Closed/Suction Drain Right; Abdomen; Bulb; 10/07/21 1020 by Fr. Closed/Suction Drain Left; Abdomen; Bulb; 10/07/21 1020 by Fr. Wound Abdomen 10/07/21 1021 by Peripheral IV Placement Date: 10/07/21; 10/07/21 0713 by 10/08 1048 by Placement Time: 712; Christel Chu Blair M, Catheter Size: 20 G; R.N. Orientation: Anterior, Left, Lower, Proximal; Location: Forearm; Site Prep: Chlorhexidine (Preferred); Technique: Anatomical landmarks; Inserted by: TMG; Insertion Attempts: 1; Removal Date: 10/08/21; Removal Time: 1048; Removal Reason: Patient discharged ETT Placement Date: 10/07/21; 10/07/21 0838 by 10/07 1116 by Placement Time: 08 Johnathon Ardon Jonathan (created via procedure S documentation); Mask Ventilation: Oral/Nasal airway needed; Type: Standard ETT; Single Lumen Tube Size: 6.5 mm; Cuffed: Yes; Blade Size: Torres 2; Location: Oral; Grade View: Grade 1; Placement Verification: Bilateral breath sounds, Positive ETCO2, Symmetrical chest wall movement; Removal Date: 10/07/21; Removal Time: 1116 documented in this encounter Social History Tobacco [...] or relatives? How often do you attend cheondoism or Never 2021 advent services? 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 - 10/07/2021 12:46 PM CST Patient: Gricelda Roberts Procedure Summary Date: 10/07/21 Room / Location: [place] [address] / [facility] in [place], [place] Anesthesia Start: 828 Anesthesia Stop: 1121 Procedure: PANNICULECTOMY. 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 Responsible Provider: Donis Nick M.D. Anesthesia Type: general ASA Status: 3 Anesthesia Type: general Last vitals Vitals Value Taken Time BP 116/76 10/07/21 1230 Temp 37 ??C 10/07/21 1230 Pulse 94 10/07/21 1241 Resp 19 10/07/21 1240 SpO2 96 % 10/07/21 1241 Vitals shown include unvalidated device data. Please reference Vitals flowsheet for most recent vital signs. Anesthesia Post Evaluation Patient Disposition: general care unit Cardiovascular status: hemodynamics (HR & BP) acceptable Respiratory status: patent airway with spontaneous effort Temperature: normothermic Oxygen requirements: room air Level of consciousness: awake Pain score: pain adequately controlled and/or at baseline Post Op nausea/vomiting: none Hydration status: euvolemic BOTOMY DIRECTOR Anesthesia Procedure Notes - Johnathon Ardon - 10/07/2021 8:48 AM PHLEBOTOMY DIRECTOR Associated Order(s): Airway Airway Date/Time: 10/07/2021 8:38 AM Performed by: Johnathon Ardon Authorized by: Donis Nick M.D. Patient location during procedure: OR / Procedure Area PROCEDURE DETAILS: Mask difficulty assessment: oral/nasal airway needed Final airway type: direct laryngoscopy, intubation Laryngeal Manipulation: no Final airway difficulty of direct laryngoscopy (DL): 0-easy Final best view of glottic structures - Cormack/Lehane Score: grade 1 ETT location: oral Adult blade type: Torres 2 Adult tube size: 6.5 Adult ETT distance at teeth/gum: 21 Oral tube type: standard ETT Cuffed: yes Airway confirmation: bilateral breath sounds, positive ETCO2 and bilateral chest rise Other previous techniques attempted: none PRE PROCEDURE DETAILS: Pre evaluation for airway management: procedure Urgency: elective Preop assessment of probable difficulty: no difficulty anticipated Preoxygenation: bag valve mask SEDATION / ANESTHESIA Anesthesia method: anesthesia POST PROCEDURE DETAILS: Procedure outcome: successful Airway event: no complications ATTESTATION STATEMENT BOTOMY DIRECTOR Anesthesia Preprocedure Evaluation - Edmond Jeffrey M.D. - 10/07/2021 7:56 AM CST Preprocedure Anesthesia & H&P Assessment Procedure Summary Date/Time: 10/07/21829 Procedures: PANNICULECTOMY. (N/A ) APPLICATION INCISIONAL WOUND VACUUM ABDOMEN. 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 Location: [place] [address] / [facility] in [place], [place] Providers: Joe Ziegler M.D., Ph.D. Pertinent components of the patient's history including current problem list, medical history, surgical history, family history, social history, medications and allergies were reviewed. Present illnessand pre-op diagnosis were confirmed. The planned surgery / procedure was verified with the patient /legal guardian. 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 Other (+) Opioid Moderate Or Severe Use Disorder (Dependence) Uncomplicated (HCC) OBJECTIVE PHYSICAL EXAMINATION Airway (HEENT) Mallampati: II TM Distance: >3 FB Neck ROM: Full Mouth Opening: >3 cm Upper Lip Bite Test Class: I Cardiovascular Rhythm: Regular Rate: Normal Cardiovascular Assessment: cardiovascular normal Functional Capacity: >4 METS Pulmonary Pulmonary Assessment: Clear General / Constitutional Constitutional Assessment: Normal General State of Health:: healthy appearing and calm Dental Dental Assessment: lower dentures and upper dentures ASSESSMENT / PLAN ANESTHESIA PLAN ASA: 3 Anesthesia Plan: general Patient seen and allergies reviewed, anesthesia plan and risks discussed directly with patient /legal guardian or through an electrical checkout mechanic. Risks/Benefits/Alternatives of Blood transfusion discussed with patient / legal guardian, including an opportunity to ask questions and/or decline some or all transfusion therapies. The patient / legalguardian consented to the use of all blood products, as deemed medically necessary Approval to Proceed: approved for anesthesia BOTOMY DIRECTOR documented in this encounter Plan of Treatment Not on filedocumented as of this encounter Procedures Procedure Name Priority Date/Time Associated Comments Diagnosis LDA ANE ENDOTRACHEAL Routine 10/07/2021 8:38 AM R esults for this AIRWAY PHLEBOTOMY DIRECTOR procedure are i n the results section. documented in this encounter Results LDA ANE ENDOTRACHEAL AIRWAY (10/07/2021 8:38 AM PHLEBOTOMY DIRECTOR) Narrative Johnathon Ardon - 10/07/2021 8:38 A M PHLEBOTOMY DIRECTOR Johnathon Ardon ? 10/07/2021 ??8:52 AM Airway Date/Time: 10/07/2021 8:38 AM Performed by: Johnathon Ardon Authorized by: Donis Nick M.D. Patient location during procedure: OR / Procedure Area PROCEDURE DETAILS: Mask difficulty assessment: oral/nasal a irway needed Final airway type: direct laryngoscopy, intubation Laryngeal Manipulation: no ?? Final airway difficulty of direct laryng oscopy (DL): 0-easy Final best view of glottic structures - Cormack/Lehane Score: grade 1 ETT location: oral Adult blade type: Torres 2 Adult tube size: 6.5 Adult ETT distance at teeth/gum: 21 Oral tube type: standard ETT Cuffed: yes Airway confirmation: bilateral breath so unds, positive ETCO2 and bilateral chest rise Other previous techniques attempted: non e PRE PROCEDURE DETAILS: Pre evaluation for airway management: pr ocedure Urgency: elective Preop assessment of probable difficulty: no difficulty anticipated Preoxygenation: bag valve mask SEDATION / ANESTHESIA Anesthesia method: anesthesia POST PROCEDURE DETAILS: ? Procedure outcome: successful ?? Airway event: no complications ATTESTATION STATEMENT Donis Nick M.D. ANESTHESIA ORDERABLES documented in this encounter Visit Diagnoses Not on filedocumented in this encounter Administered Medications Inactive Administered Medications - up to 3 most recent administrations Medication Order MAR Action Action Date Dose Rate Site clindamycin in D5W IVPB 900 mg Given 10/07/2021 8:58 AM PHLEBOTOMY DIRECTOR 900 mg (CLEOCIN) 900 mg, intravenous, at 100 mL/hr, Administer over 30 Minutes, Once, On Thu10/07/21 at 0730, For 1 dose, Intra-Op, Administer within 1 hour prior to surgical incisi, Indications: Prophylaxis, surgical dexAMETHasone injection (DECADRON) Given 10/07/2021 8:45 AM PHLEBOTOMY DIRECTOR 8 mg intravenous, As needed, Starting on Thu10/07/21 at 0845, Anesthesia Intra-op ePHEDrine (PF) injection Given 10/07/2021 9:14 AM PHLEBOTOMY DIRECTOR 10 mg intravenous, As needed, Starting on Thu10/07/21 at 0903, Anesthesia Intra-op Given 10/07/2021 9:11 AM PHLEBOTOMY DIRECTOR 15 mg Given 10/07/2021 9:08 AM PHLEBOTOMY DIRECTOR 10 mg fentaNYL injection (SUBLIMAZE) Given 10/07/2021 11:11 AM PHLEBOTOMY DIRECTOR 50 mcg intravenous, As needed, Starting on Thu10/07/21 at 0835, Anesthesia Intra-op Given 10/07/2021 9:46 AM PHLEBOTOMY DIRECTOR 50 mcg Given 10/07/2021 8:35 AM PHLEBOTOMY DIRECTOR 150 mcg heparin (porcine) injection Given 10/07/2021 8:58 AM PHLEBOTOMY DIRECTOR 5,000 Units subcutaneous, As needed, Starting on Thu10/07/21 at 0858, Anesthesia Intra-op HYDROmorphone (PF) injection (DILAUDID) Given 10/07/2021 11:13 AM PHLEBOTOMY DIRECTOR 0.5 mg intravenous, As needed, Starting on Thu10/07/21 at 0946, Anesthesia Intra-op Given 10/07/2021 9:46 AM PHLEBOTOMY DIRECTOR 0.5 mg ketamine injection (KETALAR) Given 10/07/2021 9:15 AM PHLEBOTOMY DIRECTOR 20 mg intravenous, As needed, Starting on Thu10/07/21 at 0915, Anesthesia Intra-op lactated ringers New Bag 10/07/2021 9:49 AM PHLEBOTOMY DIRECTOR intravenous, Continuous Infusion: Per Instructions PRN, Starting on Thu10/07/21 at 0831, Anesthesia Intra-op New Bag 10/07/2021 8:31 AM PHLEBOTOMY DIRECTOR lidocaine (PF) (cardiac) injection Given 10/07/2021 8:35 AM PHLEBOTOMY DIRECTOR 100 mg intravenous, As needed, Starting on Thu10/07/21 at 0835, Anesthesia Intra-op ondansetron (PF) injection (ZOFRAN) Given 10/07/2021 11:14 AM PHLEBOTOMY DIRECTOR 4 mg intravenous, As needed, Starting on Thu10/07/21 at 1114, Anesthesia Intra-op phenylephrine injection Given 10/07/2021 9:11 AM PHLEBOTOMY DIRECTOR 50 mcg intravenous, As needed, Starting on Thu10/07/21 at 0847, Anesthesia Intra-op Given 10/07/2021 9:00 AM PHLEBOTOMY DIRECTOR 50 mcg Given 10/07/2021 8:47 AM PHLEBOTOMY DIRECTOR 50 mcg propofoL injection (DIPRIVAN) Given 10/07/2021 8:35 AM PHLEBOTOMY DIRECTOR 180 mg intravenous, As needed, Starting on Thu10/07/21 at 0835, Anesthesia Intra-op rocuronium injection (ZEMURON) Given 10/07/2021 9:56 AM PHLEBOTOMY DIRECTOR 20 mg intravenous, As needed, Starting on Thu10/07/21 at 0843, Anesthesia Intra-op Given 10/07/2021 9:22 AM PHLEBOTOMY DIRECTOR 10 mg Given 10/07/2021 8:43 AM PHLEBOTOMY DIRECTOR 50 mg succinylcholine (PF) injection (ANECTINE ) Given 10/07/2021 8:35 AM PHLEBOTOMY DIRECTOR 100 mg intravenous, As needed, Starting on Thu10/07/21 at 0835, Anesthesia Intra-op sugammadex injection (BRIDION) Given 10/07/2021 11:06 AM PHLEBOTOMY DIRECTOR 140 mg intravenous, As needed, Starting on Thu10/07/21 at 1106, Anesthesia Intra-op documented in this encounter Care Teams Heat Treater Head Relationship Specialty Start Date End Date Matheus Feliciano M.B.BRafalSRafal, M.Jori. PCP - General Family Medicine 01/09/[address] [place] [address] [place] [id number] documented as of this encounter
--- OUTSIDE RECORDS SUMMARY | 2022-04-10 14:51 | XMS_ITS | Encounter Summary ---
:1980 Author Organization [facility] Address [address] [place] [address] Care Team Providers Name Role Phone Matheus Feliciano M.D. Primary Care Provider [phone] Reason for Visit Reason Comments Post-op Problem Fever Encounter Details Date Type Department Care Team Description 10/10/2021 Nurse Triage Department of [facility] Katia Witt Po st-op Problem; [facility], [facility], in [place], [address] [place] [address] [place], [place] [phone] (Wo rk) [id number] [phone] Social History Tobacco Use Types Packs/Day Years [...] or relatives? How often do you attend yarsani or Never 2021 hinduism services? Do you belong to any clubs or Yes 09/02/2021 organizations such as yarsani groups, unions, fraternal or athletic groups, or [...] place to sleep or slept in a long-term (including now)? Education Answer Date Recorded What is the highest level of school you have completed or th e 9th grade 11/26/2020 highest degree you have received? 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 - 10/10/2021 6:42 PM CST Chief Complaint / Reason for Call Patient is a 40 y.o. female calling regarding Post-op Problem and Fever. Assessment Concern: Patient Called reporting a fever for two days following a PANNICULECTOMY. Has incision and two ports she drains. Incision does not look red. Temperature is 99.6 with Tylenol and Ibuprofen onboard. Present for: 2 days Home cares tried: Tylenol and Ibuprofen. Calling to request: Advice could not reach the surgeon line was told to talk to us first. The recommended disposition is Contact a health care provider within 1 hour. Patient was warm transferred to [facility] at the clinic to reach Plastics graphics production specialist for further assistance. DCARE ATTENDANT documented in this encounter Plan of Treatment Not on filedocumented as of this encounter Visit Diagnoses Not on filedocumented in this encounter Care Teams Pasteurizing Machine Operator Relationship Specialty Start Date End Date Matheus Feliciano M.B.B.S., M.D. PCP - General Family Medicine 01/09/[address] [place] [address] PANKAJ Velez [phone] documented as of this encounter
--- OUTSIDE RECORDS SUMMARY | 2022-04-10 14:51 | XMS_ITS | Encounter Summary ---
:1980 Author Organization [facility] Address [address] [place] [address] Care Team Providers Name Role Phone Matheus Feliciano M.D. 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 [address] Perez[place] [address] [place] [address] Social History Tobacco Use Types Packs/Day Years [...] or relatives? How often do you attend confucianist or Never 2021 rastafarian services? 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 documented as of this encounter Last Filed Vital Signs Vital Sign Reading Time Taken Comments Blood Pressure 121/80 10/07/2021 12:00 PM WOOD PREPARATION SUPERVISOR Pulse 95 10/07/2021 12:00 PM WOOD PREPARATION SUPERVISOR Temperature 37.4 ??C (99.3 ??F) 10/07/2021 11:27 AM WOOD PREPARATION SUPERVISOR Respiratory Rate 12 10/07/2021 12:00 PM WOOD PREPARATION SUPERVISOR Oxygen Saturation 96% 10/07/2021 12:00 PM WOOD PREPARATION SUPERVISOR Inhaled Oxygen Concentration - - Weight 69.2 kg (152 lb 8.9 oz) 10/07/2021 7:22 AM WOOD PREPARATION SUPERVISOR Height 162 cm (5' 3.78) 10/07/2021 7:22 AM WOOD PREPARATION SUPERVISOR Body Mass Index 26.37 10/07/2021 7:22 AM WOOD PREPARATION SUPERVISOR documented in this encounter Discharge Summaries Omkar Moore M.D. - 10/07/2021 11:13 AM CST DISCHARGE SUMMARY BRIEF OVERVIEW Hospital: [facility] Discharge Provider: Prasanth Ziegler M.D. Primary Team: [facility] Plastic Surgery - Karlie Primary Care Providers: Matheus Feliciano M.B.B.S., M.D. (General) [address] [place] [address] [place] [address] Primary Care Provider Primary Care Provider Other [...] Abdominal HOSPITAL COURSE Gricelda Roberts presented to [facility] for surgical management of her abdominal skin [...] were provided to the patient and caregiver(s). PREPARATION SUPERVISOR documented in this encounter Discharge Instructions AttachmentsThe following attachments cannot be sent through Care Everywhere. Enoxaparin (By injection) (Argentine)Oxycodone, Rapid Release (By mouth) (Argentine) Laxative, Stimulant Combination (By mouth) (Argentine)documented in this encounter Medications at Time of [...] TAKE ONE CAPSULE BY 90 capsule 3 10/12/2020/12/2021 (STRATTERA) 80 mg MOUTH EVERY DAY capsule [...] documented as of this encounter Progress Notes Harejet Brown, Pharm.D., R.Ph. - 10/07/2021 7:26 AM CST Images from the original note were not included. Admission Medication History Note Adherence issues: No concerns Medication list source: Patient Prior to Admission Medications Med List Status: Pharmacy Complete Set By: Harjeet Brown, Pharm.D., R.Ph. at 10/07/2021 7:25 AM Taking? Last [...] migraine. Patient not taking: Reported on 10/07/2021 PREPARATION SUPERVISOR documented in this encounter Nursing Notes Scotty [...] from fall/fall injury Outcome: Adequate for Discharge PREPARATION SUPERVISOR documented in this encounter OR Notes Op Note - Prasanth Ziegler M.D., Ph.D. - 10/07/2021 9:16 AM CST Pre-op Diagnosis Pannus Abdominal Post-op Diagnosis Pannus Abdominal A construction assistant actively participated and was necessary for one [...] noted. The defect was closed with a elimhw-nd-rkigp stitch using 2-0 Vicrylsuture. The patient's bed [...] tailor tacked closed with jason. Two 19 Polish channel drains were placed in the subcutaneous [...] the entire case. Prasanth Ziegler M.D., Ph.D. PREPARATION SUPERVISOR Brief Op Note - Omkar Moore M.D. - 10/07/2021 8:13 AM CST Pre-op Diagnosis Pannus Abdominal Post-op Diagnosis Pannus Abdominal Findings As expected. Complications None Procedures 1. Panniculectomy Omkar Moore M.D. PREPARATION SUPERVISOR documented in this encounter Miscellaneous Notes Hospital Course - Omkar Moore M.D. - 10/07/2021 11:13 AM CST Gricelda Roberts presented to [facility] for surgical management of her abdominal skin [...] acceptable, she was dismissed from the hospital. PREPARATION SUPERVISOR documented in this encounter Plan of Treatment Not on filedocumented as of this encounter Procedures Procedure Name Priority Date/Time Associated Diagnosis Comme nts PANNICULECTOMY 10/07/2021 8:09 AM WOOD PREPARATION SUPERVISOR Pannus Abdominal documented in this encounter Visit Diagnoses Diagnosis Pannus Abdominal - Primary Pannus Abdominal documented in this encounter Admitting Diagnoses Diagnosis Pannus Abdominal documented in this encounter Administered Medications Inactive Administered Medications - up to 3 most recent administrations Medication Order MAR Action Action Date Dose Rate Site acetaminophen tablet 1,000 mg Given 10/07/2021 7:31 AM WOOD PREPARATION SUPERVISOR 1,000 mg (TYLENOL) 1,000 mg, oral, Once, On Thu10/07/21 at 0700, For 1 dose, Pre-Op, Airplane Woodworker, PreOp with sips acetaminophen tablet 1,000 mg (TYLENOL) Given 10/08/2021 8:01 AM WOOD PREPARATION SUPERVISOR 1,000 mg 1,000 mg, oral, Every 6 hours, First dose on Thu10/07/21 at 1400 Given 10/08/2021 1:04 AM WOOD PREPARATION SUPERVISOR 1,000 mg Given 10/07/2021 8:11 PM WOOD PREPARATION SUPERVISOR 1,000 mg amoxicillin capsule 500 mg (AMOXIL) Given 10/07/2021 9:21 PM WOOD PREPARATION SUPERVISOR 500 mg 500 mg, oral, Every 8 hours scheduled, First dose on Thu10/07/21 at 1400, For 2 doses, Drug Monitoring Program: Pharmacist to adjust medication dosing based on indication and drug clearance factors., Indications: Prophylaxis, surgical Given 10/07/2021 2:28 PM WOOD PREPARATION SUPERVISOR 500 mg atomoxetine capsule 80 mg (STRATTERA) Given 10/08/2021 8:00 AM WOOD PREPARATION SUPERVISOR 80 mg 80 mg, oral, Daily, First dose on Thu10/08/21 at 0900, Swallow whole. Do NOT crush, chew or open capsule. bupivacaine liposome (PF) 20 mL, Given 10/07/2021 10:09 AM WOOD PREPARATION SUPERVISOR 1 00 mL Other bupivacaine 30 mL in sodium chloride (PF) 0.9 % 100 mL injection As needed, Starting on Thu10/07/21 at 1009, Intra-Op busPIRone tablet 30 mg (BUSPAR) Given 10/08/2021 8:01 AM WOOD PREPARATION SUPERVISOR 30 mg 30 mg, oral, 2 times daily, First dose on Thu10/07/21 at 2100 Given 10/07/2021 8:11 PM WOOD PREPARATION SUPERVISOR 30 mg cyclobenzaprine tablet 10 mg (FLEXERIL) Given 10/07/2021 8:11 PM WOOD PREPARATION SUPERVISOR 10 mg 10 mg, oral, Bedtime PRN, muscle spasms, Starting on Thu10/07/21 at 1307 enoxaparin injection 40 mg Given 10/08/2021 8:00 AM WOOD PREPARATION SUPERVISOR 40 mg Left Upper Arm (LOVENOX) (Back) 40 mg, subcutaneous, Daily, First dose on Thu10/08/21 at 0900, Drug Monitoring Program: Pharmacist to adjust medication dosing based on indication and drug clearance factors. escitalopram tablet 20 mg (LEXAPRO) Given 10/08/2021 8:00 AM WOOD PREPARATION SUPERVISOR 20 mg 20 mg, oral, Daily, First dose on Thu10/08/21 at 0900 fentaNYL injection 25 mcg (SUBLIMAZE) Given 10/07/2021 11:47 AM WOOD PREPARATION SUPERVISOR 25 mcg 25 mcg, intravenous, Every 2 min PRN, For pain 4 or greater (maximum 100 mcg). If max dose of Fentanyl is reached and if pain is greater than 4, discontinue Fentanyl: give Hydromorphone, Starting on Thu10/07/21 at 1137, PACU (only) Given 10/07/2021 11:44 AM WOOD PREPARATION SUPERVISOR 25 mcg Given 10/07/2021 11:42 AM WOOD PREPARATION SUPERVISOR 25 mcg gabapentin capsule 900 mg (NEURONTIN) Given 10/08/2021 8:01 AM WOOD PREPARATION SUPERVISOR 900 mg 900 mg, oral, 3 times daily, First dose on Thu10/07/21 at 1400 Given 10/07/2021 8:11 PM WOOD PREPARATION SUPERVISOR 900 mg Given 10/07/2021 2:28 PM WOOD PREPARATION SUPERVISOR 900 mg gabapentin capsule 900 mg (NEURONTIN) Given 10/07/2021 12:33 PM WOOD PREPARATION SUPERVISOR 900 mg 900 mg, oral, Once, On Thu10/07/21 at 1245, For 1 dose, PACU (only) gentamicin-polymixin B 20 mcg/mL-500 Given 10/07/2021 10:[address] 500 mL Other units/mL irrigation (DABS_MODIFIED) irrigation, Once in surgery, OR use only, Starting on Thu10/07/21 at 0720, For 1 dose, Intra-Op, *IRRIGATION ONLY* granisetron (PF) injection 1 mg (KYTRIL) Given 10/07/2021 11:38 AM WOOD PREPARATION SUPERVISOR 1 mg 1 mg, intravenous, Once as [...] of 2 mg Given 10/07/2021 11:53 AM WOOD PREPARATION SUPERVISOR 0.2 mg Given 10/07/2021 11:47 AM WOOD PREPARATION SUPERVISOR 0.2 mg lactated ringers New Bag 10/07/2021 7:13 PM WOOD PREPARATION SUPERVISOR 50 mL/hr 50 mL/hr 50 mL/hr, intravenous, Continuous, Starting on Thu10/07/21 at 1100, PACU & Post-Op Continued from OR 10/07/2021 11:41 AM WOOD PREPARATION SUPERVISOR 50 mL/hr 50 mL/hr levETIRAcetam tablet 500 mg (KEPPRA) Given 10/08/2021 8:01 AM WOOD PREPARATION SUPERVISOR 500 mg 500 mg, oral, 2 times daily, First dose on Thu10/07/21 at 2100 Given 10/07/2021 8:11 PM WOOD PREPARATION SUPERVISOR 500 mg levETIRAcetam tablet 500 mg (KEPPRA) Given 10/07/2021 11:57 AM WOOD PREPARATION SUPERVISOR 500 mg 500 mg, oral, Once, On Thu10/07/21 at 1145, For 1 dose, PACU (only), Missed AM dose. Give now in PACU. loratadine tablet 10 mg (CLARITIN) Given 10/08/2021 8:00 AM WOOD PREPARATION SUPERVISOR 10 mg 10 mg, oral, 2 times daily, First dose (after last modification) on Thu10/07/21 at 2100, loratadine 10 mg oral daily was interchanged for cetirizine Given 10/07/2021 8:11 PM WOOD PREPARATION SUPERVISOR 10 mg oxyCODONE IR tablet 10 mg (ROXICODONE) Given 10/07/2021 11:49 AM WOOD PREPARATION SUPERVISOR 10 mg 10 mg, oral, Once as needed, For pain 4 or greater, Starting on Thu10/07/21 at 1137, For 1 dose, PACU (only) oxyCODONE IR tablet 10 mg (ROXICODONE) Given 10/08/2021 8:01 AM WOOD PREPARATION SUPERVISOR 10 mg 10 mg, oral, Every 4 hours PRN, severe pain or score 7-10 of 10, for breakthrough pain, Starting on Thu10/07/21 at 0855 Given 10/07/2021 9:21 PM WOOD PREPARATION SUPERVISOR 10 mg Given 10/07/2021 5:17 PM WOOD PREPARATION SUPERVISOR 10 mg oxyCODONE IR tablet 5 mg (ROXICODONE) 5 mg, oral, Every 4 hours PRN, moderate pain or score 4-6 of 10, for breakthrough pain, Starting on Thu10/07/[address] tablet 20 mg (PROTONIX) Given 10/08/2021 8:01 AM WOOD PREPARATION SUPERVISOR 20 mg 20 mg, oral, 2 times daily, First dose on Thu10/07/21 at 2100, Swallow whole. Do NOT crush, chew, or split tablet. Given 10/07/2021 8:11 PM WOOD PREPARATION SUPERVISOR 20 mg promethazine tablet 25 mg (PHENERGAN) Given 10/07/2021 2:25 PM WOOD PREPARATION SUPERVISOR 25 mg 25 mg, oral, Daily PRN, nausea, Starting on Thu10/07/21 at 1333 propranoloL tablet 40 mg (INDERAL) Given 10/08/2021 8:01 AM WOOD PREPARATION SUPERVISOR 40 mg 40 mg, oral, 2 times daily, First dose on Thu10/07/21 at 2100 Given 10/07/2021 8:11 PM WOOD PREPARATION SUPERVISOR 40 mg sennosides-docusate sodium 8.6-50 mg per Given 10/08/2021 8:01 A M WOOD PREPARATION SUPERVISOR 1 tablet tablet 1 tablet (SENOKOT-S) 1 tablet, oral, Every 12 hours, First dose on Thu10/07/21 at 2100, do not give if patient has diarrhea. Given 10/07/2021 8:11 PM WOOD PREPARATION SUPERVISOR 1 tablet sodium chloride 0.9 % injection 3 mL Given 10/08/2021 8:06 AM WOOD PREPARATION SUPERVISOR 3 mL 3 mL, intravenous, Every 12 hours scheduled, First dose on Thu10/07/21 at 2100, Peripheral Intravenous Catheter and Rapid Infusion Catheter, when no infusion to maintain patency tranexamic acid 3 g/75 mL (40 mg/mL) in Given 10/07/2021 10:06 A M WOOD PREPARATION SUPERVISOR 75 mL Other NaCl 0.9% sterile solution 75 mL 75 mL, topical, Once in surgery, OR use only, Starting on Thu10/07/21 at 0720, For 1 dose, Intra-Op, For topical, irrigation, or infiltration use ONLY trospium tablet 20 mg (SANCTURA) Given 10/08/2021 5:58 AM WOOD PREPARATION SUPERVISOR 20 mg 20 mg, oral, 2 times daily before breakfast and dinner, First dose on Thu10/07/21 at 2045, Administer with water at least 1 hr prior to meals., Restriction Criteria (Pharmacy will review and approve if criteria met): After hours OR urgent first dose Given 10/07/2021 9:21 PM WOOD PREPARATION SUPERVISOR 20 mg documented in this encounter Active and Recently Administered Medications Times are shown in WOOD PREPARATION SUPERVISOR. Scheduled Medication Order 10/06/2021 10/07/2021 10/08/2021 acetaminophen tablet 1,000 mg (TYLENOL) (COMPLETED) 730 (Given - Provider: Erich Phelan RRafalNRafal) 1,000 mg, oral, Once, On Thu10/07/21 at 0700, For 1 dose, Pre-Op, Airplane Woodworker, PreOp with sips acetaminophen tablet 1,000 mg (TYLENOL) 1428 (Given - Provider: Jane Keenan RIsiah)2010 (Given - Provider: Blanka Lau RIsiah) 0104 (Given - Provider: Hazel Funes RRafalNRafal)0801 (Given - Provider: Scotty Marrufo RRafalNRafal) 1,000 mg, oral, Every 6 hours, First dose on Thu10/07/21 at 1400 amoxicillin capsule 500 mg (AMOXIL) (COMPLETED) 1428 (Given - Provider: Jane Keenan RIsiah)212 (Given - Provider: Blanka Lau RRafalNRafal) 500 mg, oral, Every 8 hours scheduled, F irst dose on Thu10/07/21 at 1400, For 2 doses, Drug Monitoring Program: Pharmacist to adjust medication dosing based on indication and drug clearance factors., Indications: Prophylaxis, surgical atomoxetine capsule 80 mg (STRATTERA) 0800 (Given - Provider: Scotty Marrufo RIsiah) 80 mg, oral, Daily, First dose on 08/31 at 0900, Swallow whole. Do NOT crush, chew or open capsule. busPIRone tablet 30 mg (BUSPAR) 2010 (Gi tru - Provider: Blanka Lau RIsiah) 08 (Given - Provider: Scotty norton RRafalNRafal) 30 mg, oral, 2 times daily, First dose on Thu10/07/21 at 2100 clindamycin in D5W IVPB 900 mg (CLEOCIN) (COMPLETED) 0858 (Given - Provider: Johnathon Ardon)1053 (Anesthesia Volume Adjustment - Provider: Johnathon Ardon) 900 mg, intravenous, at 100 mL/hr, Admin ister over 30 Minutes, Once, On Thu10/07/21 at 0730, For 1 dose, Intra-Op, Administer within 1 hour prior to surgical incisi, Indications: Prophylaxis, surgical enoxaparin injection 40 mg (LOVENOX) 08 (Given - Provider: Scotty Marrufo R.N.) 40 mg, subcutaneous, Daily, First dose o n Thu10/08/21 at 0900, Drug Monitoring Program: Pharmacist to adjust medication dosing based on indication and drug clearance factors. escitalopram tablet 20 mg (LEXAPRO) 08 (Given - Provider: Scotty Marrufo R.N.) 20 mg, oral, Daily, First dose on Thu10/08/21 at 0900 fluticasone propionate 50 mcg/actuation nasal spray 2 spray (ISELA NASE) 08 (Not Given - Provider: Scotty Marrufo R.N. - Reason: Patient/family refused) 2 spray, each nostril, Daily, First dose on Thu10/08/21 at 0900 gabapentin capsule 900 mg (NEURONTIN) 14 (Given - Provider: Jane Keenan RRafalNRafal)2010 (Given - Provider: Blanka Lau RIsiah) 08 (Given - Provider: Scotty Marrufo R.N.) 900 mg, oral, 3 times daily, First dose on Thu10/07/21 at 1400 gabapentin capsule 900 mg (NEURONTIN) (COMPLETED) 1233 (Given - Provider: Gricelda Tate RRafalNRafal) 900 mg, oral, Once, On Thu10/07/21 at 1245, For 1 dose, PACU (on ly) levETIRAcetam tablet 500 mg (KEPPRA) 201 1 (Given - Provider: Blanka Lau R.N.) 08 (Given - Provider: Scotty norton R.N.) 500 mg, oral, 2 times daily, First dose on Thu10/07/21 at 2100 levETIRAcetam tablet 500 mg (KEPPRA) (COMPLETED) 1157 (Given - Provider: Katia Moralez R.N.) 500 mg, oral, Once, On Thu10/07/21 at 11 45, For 1 dose, PACU (only), Missed AM dose. Give now in PACU. loratadine tablet 10 mg (CLARITIN) 2010 (Given - Provider: Blanka Lau R.N.) 08 (Given - Provider: Scotty norton R.N.) 10 [...] 2010 (Given - Provider: Blanka Lau R.N.) 08 (Given - Provider: Scotty Marrufo R.N.) 1 tablet, oral, Every 12 hours, First do se on Thu10/07/21 at 2100, do not give if patient has diarrhea. sodium chloride 0.9 % injection 3 mL 212 7 (Not Given - Provider: Blanka Lau R.N. - Reason: Contraindicated) 0806 (Given - Provider: Scotty Marrufo RIsiah) 3 mL, intravenous, Every 12 hours schedu led, First dose on Thu10/07/21 at 2100, Peripheral Intravenous Catheter and Rapid Infusion Catheter, when no infusion to maintain patency trospium tablet 20 mg (SANCTURA) 2121 (G iven - Provider: Blanka Lau RRafalNRafal) 0558 (Given - Provider: Hazel Funes R Isiah) 20 mg, oral, 2 times daily before breakf ast and dinner, First dose on Thu10/07/21 at 2045, Administer with water at least 1 hr prior to meals., Restriction Criteria (Pharmacy will review and approve if criteria met): After hours OR urgent first dose Continuous Medication Order 10/06/2021 10/07/2021 10/08/2021 lactated ringers 1141 (Continued from OR - Provider: Katia Moralez RRafalNRafal)1913 (New Bag - Provider: Jane Keenan RIsiah) 0800 (Stopped - Provider: Scotty Marrufo RIsiah) 50 mL/hr, intravenous, Continuous, Start ing on [...] mg of calcium, oral, Every 2 hour IN N, indigestion, Starting on Thu10/07/21 at 1307, Do not exceed 12 tablets per day 500 mg calcium carbonate contains 200 mg of elemental calcium. cyclobenzaprine tablet 10 mg (FLEXERIL) 2010 (Given - Provider: Blanka Lau R.N.) 10 mg, oral, Bedtime PRN, muscle spasms, Starting on Thu10/07/21 at 1307 fentaNYL injection 25 mcg (SUBLIMAZE) (CANCELED) 1140 (Given - Provider: Katia Moralez R.N.)1142 (Given - Provider: Shubham Mock.N.)1144 (Given - Provider: Shubham Mock.N.)1147 (Given - Provider: Shubham Mock.N.) 25 mcg, intravenous, Every 2 min PRN, [...] (KYTRIL) (COMPLETED) 1138 (Given - Provider: Katia Moralez R.NRafal) 1 mg, intravenous, Once as needed, nause a, vomiting, Starting on Thu10/07/21 at 1137, For 1 dose, PACU (only), If patient does not respond to ondansetron or haloperidol. (order of antiemetic administrat ion - ondansetron then haloperidol then granisetron) HYDROmorphone (PF) injection 0.2 mg (DILAUDID) (CANCELED) 1147 (Given - Provider: Katia Moralez R.N.)1153 (Given - Provider: Shubham Mock.N.)1159 (Given - Provider: Shubham Mock.N.) 0.2 mg, intravenous, Every 5 min PRN, mo derate pain or score 4-6 of 10, severe pain or score 7-10 of 10, Starting on Thu10/07/21 at 1137, PACU (only), Up to maximum total dose of 2 mg oxyCODONE IR tablet 10 mg (ROXICODONE) (COMPLETED) 1149 (Given - Provider: Katia Moralez RIsiah) 10 mg, oral, Once as needed, For pain 4 or greater, Starting on Thu10/07/21 at 1137, For 1 dose, PACU (only) oxyCODONE IR tablet 10 mg (ROXICODONE)(Linked Group 1) 1717 (Given - Provider: Jane Keenan R.N.)2120 (Given - Provider: Blanka Lau RIsiah) 0801 (Given - Provider: Scotty Marrufo RIsiah) 10 mg, oral, Every 4 hours PRN, severe p ain or score 7-10 of 10, for breakthrough pain, Starting on Thu10/07/21 at 0855 oxyCODONE IR tablet 5 mg (ROXICODONE)(Linked Group 1) 1717 (See Alternative - Provider: Jane Keenan R.N.)2120 (See Alternative - Provider: Blanka Lau RIsiah) 0801 (See Alternative - Provider: Scotty Marrufo [...] 14 25 (Given - Provider: Jane Keenan RIsiah) 25 mg, oral, Daily PRN, nausea, Starting [...] in surgery, OR use only, Starting on Thu10/07/21 at 0720, For 1 dose, Intra-Op, For [...] 0855 documented in this encounter Care Teams Director Of Securities And Real Estate Relationship Specialty Start Date End Date Matheus Feliciano M.B.B.S., Jose. PCP - General Family Medicine 01/09/[address] [place] [address] PANKAJ Velez [phone] documented as of this encounter
--- OUTSIDE RECORDS SUMMARY | 2022-04-10 14:51 | XMS_ITS | Encounter Summary ---
:1980 Author Organization [facility] Address [address] [place] [address] Care Team Providers Name Role Phone Matheus Feliciano M.D. Primary Care Provider [phone] Reason for Visit Reason Comments Med Refill Encounter Details Date Type Department Care Team Description 09/29/2021 Refill Department of Family Medicine, Matheus Feliciano I., Med Refill [facility], in [place], [place] [address] [facility] [address] [place] [address] [place] [address] [phone] Social History Tobacco Use Types Packs/Day Years [...] or relatives? How often do you attend sabianism or Never 2021 mormonism services? Do you belong to any clubs or Yes 09/02/2021 organizations such as sabianism groups, unions, fraternal or athletic groups, or [...] place to sleep or slept in a long term (including now)? Education Answer Date Recorded What is the highest level of school you have completed or th e 9th grade 11/26/2020 highest degree you have received? 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 PCP - General Family Medicine 01/09/[address] [place] [address] PANKAJ Velez [phone] documented as of this encounter
--- OUTSIDE RECORDS SUMMARY | 2022-04-10 14:51 | XMS_ITS | Encounter Summary ---
:1980 Author Organization [facility] Address [address] [place] [address] Care Team Providers Name Role Phone Matheus Feliciano M.D. Primary Care Provider [phone] Encounter Details Date Type Department Care Team Description 10/07/2021 Orders Only Pharmacy Prior Auth [facility] Leblanc [phone] Social History Tobacco Use Types Packs/Day Years [...] do you attend judaism or Never 2021 pentecostal services? 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 PCP - General Family Medicine 01/09/[address] [place] [address] [place] [phone] documented as of this encounter
--- OUTSIDE RECORDS SUMMARY | 2022-04-10 14:51 | XMS_ITS | Encounter Summary ---
:1980 Author Organization [facility] Address [address] [place] [address] Care Team Providers Name Role Phone Matheus Feliciano M.D. Primary Care Provider [phone] Reason for Visit Outpatient (Routine) - Closed Specialty Diagnoses / Procedures Referred By Contact Refer red To Contact Plastic Surgery Joe Ziegler M.D., [facility] [place] [address] Referral ID Status Reason Start Date Expiration Date Visits Requ ested Visits Authorized [id number] Closed 08/22/2021 08/22/2022 1 1 Encounter Details Date Type Department Care Team Description 09/06/2021 Office Visit Division of Plastic Joe Ziegler Abdominal Surgery in [place], Ana Gilman, P h.D. (Primary Dx) [place], [place] [address] [facility] [address] [place] [address] Social History Tobacco Use Types Packs/Day Years [...] or relatives? How often do you attend islam or Never 2021 mu-ism services? 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 - 09/06/2021 1:00 PM CST Service of Dr. Karlie Madison Jacob Roberts presents today for a preoperative listing visit. Briefly she has a history of gastric bypass surgery and has lost approximately 200 lb. Her weight has been stable. She is scheduled for a panniculectomy on 10/07/2021. We discussed management of the umbilicus, and she would like to have the umbilicus excised. She plans to have an umbilicus tattooed postoperatively. Examination is unchanged. She has striae on her abdomen. Transverse and vertical laxity in the abdominal skin. No active intertrigo today. Assessment/plan: It was a pleasure to see Mrs. Kyle today. We reviewed the plans for surgery. We will perform a [id number]-ap-[id number] panniculectomy to address both the transverse and vertical laxity. We will remove the umbilicus per her request. She will have surgical drains postoperatively. We discussed the risks of surgery including bleeding, infection, seroma, wound healing complications, DVT, and PE. We discussed theincreased risk of DVT after COVID infection, and therefore we may send her home on a 7-10 day courseof DVT prophylaxis postoperatively. All questions were invited and answered. Written informed consent to proceed was obtained. She was evaluated with Dr. Ziegler. Corey Hoskins M.D. TRUCK DRIVER Associated attestation - Joe Ziegler M.D., Ph.D. - 09/06/2021 3:39 PM DUMP TRUCK DRIVER I saw and evaluated the patient, participating in the hernandez portions of the service. I reviewed the resident/fellow???s note. I agree with the resident/fellow???s findings and plan. Mrs. Roberts returns for preoperative evaluation prior to panniculectomy. She recently recovered from a COVID infection and has been doing well without any residual symptoms. We discussed the planned procedure including a [id number]-mr-[id number] panniculectomy and she does not want to save her umbilicus. We discussed the use of drains and or an incisional VAC. We will plan on keeping her overnight. We also discussed the possibility of giving her perioperative anticoagulation since COVID infection has been shown to increase the risk of DVT/PE. All their questions were answered. The risks, benefits, and alternatives to the planned procedure were discussed in detail, including the risk of exposure to COVID-19 within the facility and the necessity of other members of the healthcare team participating in the procedure. The specific risks and benefits of each option were discussed with the patient, which, include but are not limited to bleeding, infection, seroma, poor wound healing/scarring, and contour irregularities. there is an increased risk of partial flap necrosis, abdominal bulging and hernia formation. I personally spent over half of a total 15 minutes face to face with the patient in counseling and discussion and/or coordination of care as described above. Joe Ziegler M.D., Ph.D. Linda Leal, R.N. - 09/06/2021 1:00 PM CST REASON FOR VISIT Service of Dr. Ziegler ([phone]) Information Discussed The patient has agreed to move forward with surgery and is listed for panniculectomy and possible placement incisional wound vac on October 07, [address] Ziegler. Informed consent was signed by thepatient. She will stop all blood thinning medications one week prior to surgery. Preoperative instructions were reviewed using the Checklist for Surgical Patients ([id number]). [facility] and will follow the fasting instructions provided. Patient was instructed on presurgical cleansing using Hibiclens. A copy of Surgical Site infection: Reducing Your Risk (VI9800) was provided as well as Hibiclens packets. All questions were answered at this time. 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 PCP - General Family Medicine 01/09/[address] [place] [phone] documented as of this encounter
--- OUTSIDE RECORDS SUMMARY | 2022-04-10 14:51 | XMS_ITS | Encounter Summary ---
:1980 Author Organization [facility] Address [address] [place] [address] Care Team Providers Name Role Phone Matheus Feliciano M.D. Primary Care Provider [phone] Encounter Details Date Type Department Care Team Description 10/10/2021 Clinical Communication Department of Jos Ray, Orthopedic Surgery in [place], [place] [address] [facility] [address] [place] [phone] Social History Tobacco Use Types Packs/Day Years [...] or relatives? How often do you attend worship or Never 2021 restorationist services? 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 - 10/10/2021 7:06 PM CST PLASTIC SURGERY PROGRESS NOTE: I received an outside phone call from Mrs Gricelda Roberts this evening with concerns for new fevers that started this morning. She is a 40 year old female who is POD#3 from a Panniculectomy which was uncomplicated. She reports this morning she noticed that felt warm and when she measure her temperature it was 99.6. She checked it again later and it was 99.3. She denies any other associated constitutional symptoms. She denies any worsening pain or pain uncontrolled with oral pain medication. Her and her daughter evaluated the surgical incision and deny any redness, streaking or worsening tenderness. She does report feeling swollen, which is expected after surgery. She denies any erythema around the drain sites or increased drain output. She denies any pain or discomfort in the lower extremity, specifically in the calf, popliteal fossa, or medial thigh. We discussed the signs and symptoms of infection, particularly in the immediate postoperative setting. I explained that 99.6 is within the realm of normal and we do not start worrying about a temperature until it has reached 100.4. Other signs and symptoms to be on the look out for is worsening redness around the incision, worsening pain, fatigue, chills, body aches, or erythema around the drain, change in drain quality. We also discussed signs of symptoms of lower extremity DVT. She continues to take her Lovenox injections as instructed. If she develops any of the symptoms listed above she was told to call us back or visit a local Emergency department. She understood this. I also asked her to take photos of her incision and drain sitesand to upload them to her portal. I will update Dr. Ziegler and her team with these concerns. Jos Ray M.D. TYPEWRITER OPERATOR documented in this encounter Plan of Treatment Not on filedocumented as of this encounter Visit Diagnoses Not on filedocumented in this encounter Care Teams Business Process Manager Relationship Specialty Start Date End Date Matheus Feliciano M.B.B.S., M.D. PCP - General Family Medicine 01/09/[address] [place] [phone] documented as of this encounter
--- OUTSIDE RECORDS SUMMARY | 2022-04-10 14:52 | XMS_ITS | Encounter Summary ---
:1980 Author Organization [facility] Address [address] [place] [address] Care Team Providers Name Role Phone Matheus Feliciano M.D. Primary Care Provider [phone] Reason for Visit Outpatient (Routine) - Closed Specialty Diagnoses / Procedures Referred By Contact Refer red To Contact Plastic Surgery Diagnoses Pannus Abdominal Matheus Feliciano I.[facility] Ana Pelletier [address] [place] [phone] Referral ID Status Reason Start Date Expiration Date Visits Requ ested Visits Authorized [id number] Closed 06/27/2021 06/27/2022 1 1 Encounter Details Date Type Department Care Team Description 08/06/2021 Comprehensive Visit Division of Plastic [facility] [address] [place] [phone] Social History Tobacco Use Types Packs/Day Years [...] do you attend shinto or Never 2021 latter-day services? 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 - 08/06/2021 10:00 AM CST SUBJECTIVE CHIEF COMPLAINT / REASON FOR VISIT Consult for panniculectomy HISTORY OF PRESENT ILLNESS Ms. Roberts is a 40 yo female who presents for the above. Underwent gastric bypass approximately 8 years ago with weight loss from 320 to 139 pounds with weight being stable for at least the last six months (and longer). No plans to lose more weight. Unfortunately since then, over the past 5+ years, has had recurrent rashes and infections beneath the pannus and yadi-umbilical region that are being managed with prescription antifungal creams with intermittent improvement. She has been following multiple providers during this time frame for treatment and was recommended to consider panniculectomy as a surgical option. She has also attempted different garments and use of cloth under the pannus without significant improvements. At this time, rash underneath pannus is gone but there is residual rash of the yadi-umbilical region that is appreciable. History otherwise inclusive of seizure without incidents over more than the past year, kidney stones, ADHD, anxiety, depression, migraines, chronic low back pain. Other surgeries of x2 section, laparoscopic hysterectomy, cholecystectomy and appendectomy. Recently had left knee arthroscopy andas such has been using wheelchair for assistance but otherwise prior to surgery active and without ambulatory issues. Nonsmoker, not taking anticoagulation, not diabetic. No history of blood clots. The following portions of the patient's history were reviewed and updated as appropriate: allergies,current medications, family history, medical history, social history, surgical history and problem list. Past Medical History: Diagnosis Date ??? Dependence Drug Opioid (HCC) ??? Depression Anxiety ??? Epilepsy And Recurrent Seizures NOS ??? Gallbladder Disorder 2004 ??? Gastric Bypass Status Post ??? Hypothyroidism ??? Migraine Headache ??? Morbid Obesity (HCC) 06/11/2010 ??? Obesity Body Mass Index 30-39.9 Adult ??? Osteoarthritis ??? Pain Low Back Chronic ??? Stone Kidney 2020 ??? Tobacco Use quit in 1997 Past Surgical History: Procedure Laterality Date ??? APPENDECTOMY 11/13/2003 ??? APPENDECTOMY 2003 ??? BARIATRIC SURGERY 2011 ??? SECTION 2006 ??? SECTION 11/13/2007 ? ? SECTION 2006 & 2007 ??? CHOLECYSTECTOMY 11/13/2003 ??? GALLBLADDER SURGERY 2003 ??? GASTRIC BYPASS 04/2011 ??? HYSTERECTOMY ABDOMINAL WITH SALPINGO - OOPHORECTOMY 10/10/2010 Abdominal supracervical hysterectomy and right salpingo-oophorectomy ??? TONSILLECTOMY 11/13/2007 ??? TONSILLECTOMY 2009 ??? TRANSECTION OF FALLOPIAN TUBE BY VAGINAL APPROACH 11/13/2007 Social History Tobacco Use Smoking status: Former Smoker Packs/day: 0.00 Years: 0.00 Pack years: 0 Types: Cigarettes Start date: 08/10/1991 Quit date: 08/10/1997 Years since quittin.0 Smokeless tobacco: Never Used REVIEW OF SYSTEMS REVIEW OF SYSTEMS OBJECTIVE PHYSICAL EXAM Physical Exam Abdomen: Significant overhanging pannus overhanging pubis extending to superior aspect of abdomen with residual rash in yadi-umbilical region; no rash underneath pannus at this time; no palpable bulge or hernia ASSESSMENT / PLAN #Significant weight loss #Pannus Ms. Roberts presents for evaluation regarding her pannus. She has failed conservative management as it pertains to her rashes with use of prescription antifungals along with use of different garments over the course of many years. A panniculectomy would certainly be beneficial for her in this regard. She has significant skin laxity with overhanging pannus over the pubis extending to the superior aspect of the abdomen. She may benefit from a mohini de lis panniculectomy vs the traditional transverse incision approach so as to also address the above mentioned skin. This would leave her with a verticaland transverse scar. She does not have a preference to keep her belly button - we will aim to removethis at time of panniculectomy. Otherwise she has also had a recent pre-operative evaluation for herleft knee surgery deeming her medically optimized. Would wait for her to recover from that surgery prior to proceeding with intervention so that she has no issues with ambulation in the post- operative period. We discussed in brief that postoperative recovery would likely be around 4 weeks with no heavy lifting or strenuous activities and that she will likely have two drains to reduce the risk of seroma. She will also have an abdominal binder to wear during this time. This was all discussed with and u nderstood by patient. Patient was seen and discussed with Dr. Ziegler who is in agreement with the plan. [employer]ES BOATMAN Associated attestation - Joe Ziegler M.D., Ph.D. - 08/07/2021 11:17 AM [employer] BOATMAN I saw and evaluated the patient, participating in the hernandez portions of the service. I reviewed the resident/fellow???s note. I agree with the resident/fellow???s findings and plan. Mrs. Roberts had gastric bypass surgery approximately eight years ago. She lost almost 200 lb and her current weight has been stable for a minimum of six months. She is not interested in losing any additional weight. Over the past several years, she has noted an increase in the incidence of intertrigoalong the skin folds of her abdomen and umbilicus. She has seen her primary care physician and a woman's health physician who has treated the rash with prescription antifungal creams but she continues to develop them. She was now referred to discuss the possibility a panniculectomy to reduce the incidence of the rashes. Ht 163.4 cm Wt 70.7 kg Body mass index is 26.48 kg/m??. On examination, she has a pannus that overhangs the mons pubis. She also has vertical excess on the upper abdomen. She has poor skin quality with significant stria. She has a well-healed scar. This skin shows some signs hyperpigmentation from prior rashes. We discussed a panniculectomy, including a Mohini de lis incision to manage the vertical excess. I described the incisions to the patient. While we try to keep the umbilicus, there is a chance that it may necrosis after surgery. She is not interested in keeping her umbilicus since she gets significant rashes in this area. The procedure and the normal postoperative course were reviewed with the patient. We will submit the procedure to her insurance company for prior authorization. Once it has been approved, then I will see her back to finalize the surgical plan. The risks, benefits, and alternatives to the planned procedure were discussed in detail, including the risk of exposure to COVID-19 within the facility and the necessity of other members of the healthcare team participating in the procedure. The specific risks and benefits of each option were discussed with the patient, which, include but are not limited to bleeding, infection, seroma, poor wound healing/scarring, scar asymmetry and contour irregularities. I personally spent over half of a total 20 minutes face to face with the patient in counseling and discussion and/or coordination of care as described above. Joe Ziegler M.D., Ph.D. documented in this encounter Plan of Treatment Not on filedocumented as of this encounter Visit Diagnoses Diagnosis Pannus Abdominal documented in this encounter Care Teams Industrial Security Analyst Relationship Specialty Start Date End Date Matheus Feliciano M.B.B.S., M.D. PCP - General Family Medicine 01/09/[address] [place] [phone] documented as of this encounter
--- OUTSIDE RECORDS SUMMARY | 2022-04-10 14:52 | XMS_ITS | Encounter Summary ---
:1980 Author Organization [facility] Address [address] [place] [address] Care Team Providers Name Role Phone Matheus Feliciano M.D. Primary Care Provider [phone] Encounter Details Date Type Department Care Team Description 07/21/2021 Admin Visit Department of Family Medicine, [address] [address] [facility] [phone] Social History Tobacco Use Types Packs/Day Years [...] or relatives? How often do you attend quaker or Never 2021 moravian services? Do you belong to any clubs or Yes 09/02/2021 organizations such as quaker groups, unions, fraternal or athletic groups, or [...] place to sleep or slept in a fdc (including now)? Education Answer Date Recorded What is the highest level of school you have completed or th e 9th grade 11/26/2020 highest degree you have received? 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 PCP - General Family Medicine 01/09/[address] [place] [address] [place] [phone] documented as of this encounter
--- OUTSIDE RECORDS SUMMARY | 2022-04-10 14:52 | XMS_ITS | Encounter Summary ---
:1980 Author Organization [facility] Address [address] [place] [address] Care Team Providers Name Role Phone Matheus Feliciano M.D. Primary Care Provider [phone] Reason for Visit Reason Comments Pre-op Exam She will be having left alejandre llar chondroplasty on 07/24/21 at [facility] with Dr. Kevin Adame MD . 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 Pain Knee Left; Clinic, in [address] Epilepsy Seizure Not Intractable Without Status Epilepticus (HCC); [place], [place] Depression Anxiety; [address] [phone] Attention Deficit Hyperactive Disorder; [place], [place] [phone] Migraine Heada monse; [phone] (Work) Gastric Bypass Status Post; [phone] Pain Low Back C hronic; (Fax) Need Vaccine Im munization Influenza; Encounter For C OVID-19 Vaccine Immunization Social History Tobacco Use Types Packs/Day Years [...] do you attend presybeterian or Never 2021 methodist services? 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/2021 7:35 PM TAILER IN documented as of this encounter Last Filed Vital Signs Vital Sign Reading Time Taken Comments Blood Pressure 100/68 07/17/2021 2:52 PM TAILER IN Pulse 70 07/17/2021 2:52 PM TAILER IN Temperature 36.9 ??C (98.4 ??F) 07/17/2021 2:52 PM TAILER IN Respiratory Rate 18 07/17/2021 2:52 PM TAILER IN Oxygen Saturation 99% 07/17/2021 2:52 PM TAILER IN Inhaled Oxygen Concentration - - Weight 68.4 kg (150 lb 12.7 oz) 07/17/2021 2:52 PM TAILER IN Height 164 cm (5' 4.57) 07/17/2021 2:52 PM TAILER IN Body Mass Index 25.43 07/17/2021 2:52 PM TAILER IN documented in this encounter Patient Instructions Patient InstructionsYvette Ascencio APRN, C.N.P. - 07/17/2021 3:00 PM TAILER IN Instructions: Proceed with surgery as planned. Covid swab scheduled. Call surgeon if develops respiratory illness, fever, or other illness. Take the following medications the morning of surgery with a sip of water: gabapentin, Keppra, propranolol. No food or drink after midnight the morning of the surgery. No ibuprofen, naproxen, aspirin, vitamins, or supplements 7 days before the procedure. Tylenol is okay for pain. Written preoperative instructions given. ER IN documented in this encounter H&P Notes Yvette Ascencio APRN, C.N.P. - 07/17/2021 3:00 PM CST SUBJECTIVE CHIEF COMPLAINT/REASON FOR VISIT Chief Complaint Patient presents with ??? Pre-op Exam She will be having left patellar chondroplasty on 07/24/21 at [facility] with Dr. Kevin Adame MD. ??? Immunizations She is hoping to get the booster and flu vaccine today HISTORY OF PRESENT ILLNESS Mukul Reid is a 40 y.o. female who presents for a preoperative evaluation. She is scheduled for left knee arthroscopy and patellar chondroplasty with possible MARILIA biospy on 05/24/[address] Kevin Adame from [facility]. Mukul has a past medical history of seizure disorder, kidney stones, ADHD, anxiety, depression, migraine headaches, and chronic low back pain. Patient follows with neurology and is on Keppra for seizures. She states she has not had a seizure inmore than one year. No history of diabetes, cardiac disease, kidney disease, anemia, thyroid disorder, or liver disease.No history of asthma or sleep apnea. STOP Ban. She is not aware of a family history of sudden cardiac , malignant hyperthermia, or other anesthesia complications. Personal or family history of bleeding or clotting disorders: No History of blood transfusion: transfusion(s): No. She has no reported personal history of complications from anesthesia. Preoperative functional assessment: excellent, no symptoms with heavy exertion. Able to tolerate 4 METS of activity. Allergies Allergen Reactions ??? Cephalexin Other (see comments) Current Outpatient Medications: ??? acetaminophen (TYLENOL) 325 mg tablet, Take 650 mg by mouth as needed. , Disp: , Rfl: ??? adapalene (DIFFERIN) 0.1 % cream, Apply topically at bedtime. , Disp: , Rfl: ??? ascorbic acid,vitamin C,,bulk, 100 % powder, Take by mouth daily. , Disp: , Rfl: ??? atomoxetine (STRATTERA) 80 mg capsule, TAKE ONE CAPSULE BY MOUTH EVERY DAY, Disp: 90 capsule, Rfl: 3 ??? busPIRone (BUSPAR) 30 mg tablet, TAKE 1 TABLET(30 MG) BY MOUTH TWICE DAILY, Disp: 180 tablet, Rfl: 3 ??? capsaicin (ARTHRITIS PAIN RELIEF,CAPSAIC,) 0.1 % cream, Apply 1 application topically 3 (three) times a day as needed (Knee pain)., Disp: 42.5 g, Rfl: 2 ??? cetirizine (ZyrTEC) 10 mg tablet, Take 1 tablet by mouth daily., Disp: , Rfl: ??? cholecalciferol (VITAMIN D3) 2,000 Unit tablet, Take 2,000 Units by mouth daily., Disp: , Rfl: ??? cyanocobalamin (VITAMIN B12) 1,000 mcg/mL injection, INJECT 1ML INTRAMUSCULARLY EVERY MONTH, Disp: 3 mL, Rfl: 3 ??? cyclobenzaprine (FLEXERIL) 10 mg tablet, Take 1 tablet (10 mg total) by mouth at bedtime as needed for muscle spasms., Disp: 30 tablet, Rfl: 1 ??? diclofenac sodium (VOLTAREN XR) 100 mg 24 hr tablet, , Disp: , Rfl: ??? escitalopram (LEXAPRO) 20 mg tablet, TAKE 1 TABLET BY MOUTH EVERY DAY, Disp: 90 tablet, Rfl: 3 ??? fluticasone (FLONASE) 50 mcg/actuation nasal spray, Administer 2 sprays into each nostril daily., Disp: 16 g, Rfl: 11 ??? gabapentin (NEURONTIN) 300 mg capsule, TAKE 3 CAPSULES(900 MG) BY MOUTH THREE TIMES DAILY, Disp:810 capsule, Rfl: 3 ??? ketoconazole (NIZORAL) 2 % cream, Apply 1 application topically 2 (two) times a day. Apply to abdominal wall., Disp: 60 g, Rfl: 3 ??? levETIRAcetam (KEPPRA) 500 mg tablet, TAKE 1 TABLET(500 MG) BY MOUTH TWICE DAILY, Disp: 180 tablet, Rfl: 3 ??? lidocaine (LIDODERM) 5 %, Place 1 patch on the skin daily. Apply to intact skin and remove patchafter a maximum of 12 hr of application within a 24 hr period, Disp: 90 patch, Rfl: 3 ??? meloxicam (MOBIC) 7.5 mg tablet, Take 7.5 mg by mouth., Disp: , Rfl: ??? MULTIVITAMIN ORAL, Take 2 tablets by mouth daily. , Disp: , Rfl: ??? nystatin-triamcinolone (MYCOLOG II) 100,000 Unit/g-0.1 % cream, Apply 0.5 inches topically as needed. , Disp: , Rfl: ??? omega-3 fatty acids-fish oil 300-1,000 mg capsule, Take 1 g by mouth daily. 1200 mg, Disp: , Rfl: ??? ondansetron ODT (ZOFRAN-ODT) 4 mg disintegrating tablet, Take 1 tablet (4 mg total) by mouth as needed for nausea., Disp: 20 tablet, Rfl: 1 ??? pantoprazole (PROTONIX) 20 mg EC tablet, Take 20 mg by mouth 2 (two) times a day., Disp: , Rfl: ??? promethazine (PHENERGAN) 25 mg tablet, Take 25 mg by mouth as needed. , Disp: , Rfl: ??? propranoloL (INDERAL) 20 mg tablet, Start with 1 tablet by mouth twice daily. After 2 weeks, if tolerated may increase to 2 tablets twice daily., Disp: 120 tablet, Rfl: 11 ??? SUMAtriptan (IMITREX) 100 mg tablet, Take 1 tablet (100 mg total) by mouth as needed for migraine., Disp: 10 tablet, Rfl: 1 ??? traZODone (DESYREL) 50 mg tablet, Take 1 tablet (50 mg total) by mouth at bedtime as needed for sleep., Disp: 30 tablet, Rfl: 0 ??? trospium (SANCTURA) 20 mg tablet, Take 1 tablet (20 mg total) by mouth 2 (two) times a day before breakfast and dinner., Disp: 180 tablet, Rfl: 3 ??? ZOLMitriptan (ZOMIG) 5 mg tablet, Take 1 tablet (5 mg total) by mouth as needed for migraine., Disp: 10 tablet, Rfl: 1 ??? calcium carbonate-vitamin D3 500 mg(1,250mg) -400 unit tablet, Take 1 tablet by mouth daily. , Disp: , Rfl: Past Medical History: Diagnosis Date ??? Dependence Drug Opioid (HCC) ??? Depression Anxiety ??? Epilepsy And Recurrent Seizures NOS ??? Gallbladder Disorder 2003 ??? Gastric Bypass Status Post ??? Hypothyroidism [...] OF FALLOPIAN TUBE BY VAGINAL APPROACH 11/13/2007 REVIEW OF SYSTEMS Musculoskeletal: Positive for arthralgias and pain or stiffness in the joints. All other systems reviewed and are negative. The following systems were negative: CV, Respiratory SOCIAL HISTORY Tobacco history: Former smoker Alcohol use: None Illicit drug use: None Caffeine use: 2-3 servings daily OBJECTIVE VITAL SIGNS BP 100/68 (BP Location: Left arm, Patient Position: Sitting, Cuff Size: Regular) Pulse 70 Temp 36.9 ??C (Temporal) Resp 18 Ht 164 cm Wt 68.4 kg SpO2 99% BMI 25.43 kg/m?? PHYSICAL EXAMINATION General: Patient is a pleasant, cooperative 40 y.o. female. She is alert, oriented x3, well-groomed,and reliable historian. She is in no acute distress. Skin: Color pink, warm, dry, and intact. No rashes or lesions noted. HEENT: Head: Atraumatic, normocephalic, midline, and without tremor. Eyes: Sclerae are white, conjunctivae clear. Pupils equal round and react to light. Extraocular movements intact. Ears: External auditory canals are clear with no drainage noted. Tympanic membranes are intact and pearly snider with landmarks visible. Hearing grossly intact. Mouth: Oral mucosa and gums pink and moist without lesions present, posterior pharynx is pink without exudate or swelling, teeth are in good repair. Mallampati score: 3. Neck: Trachea is midline, no lymphadenopathy. No carotid bruits bilateral. Cardiovascular: Heart rate and rhythm regular. S1, S2 heard with no abnormal heart sounds. No edema.Radial and pedal pulses 2+. Capillary refill brisk. Respiratory: Respirations regular and unlabored. Lungs are clear to auscultation bilaterally. Abdomen: Abdomen is soft, symmetric. Bowel sounds are active in all 4 quadrants. No masses, tenderness, or organomegaly noted on palpation. Extremities: [place] and warm. No edema. Neuro: Cranial nerves II through XII are grossly intact. Gait is smooth and coordinated. Strength and sensation are grossly normal in all 4 extremities. DIAGNOSTICS Results for MUKUL REID ( ) as of 07/17/2021 20:20 Ref. Range 07/17/2021 16:31 Hemoglobin Latest Ref Range: 11.6 - 15.0 g/dL 13.3 Hematocrit Latest Ref Range: 35.5 - 44.9 % 40.1 Erythrocytes Latest Ref Range: 3.92 - 5.13 x10(12)/L 4.24 MCV Latest Ref Range: 78.2 - 97.9 fL 94.6 RBC Distrib Width Latest Ref Range: 12.2 - 16.1 % 13.1 Platelet Count Latest Ref Range: 157 - 371 x10(9)/L 261 White Blood Cell Count Latest Ref Range: 3.4 - 9.6 x10(9)/L 7.1 Neutrophils Latest Ref Range: 1.56 - 6.45 x10(9)/L 3.68 Lymphocytes Latest Ref Range: 0.95 - 3.07 x10(9)/L 2.62 Monocytes Latest Ref Range: 0.26 - 0.81 x10(9)/L 0.61 Eosinophils Latest Ref Range: 0.03 - 0.48 x10(9)/L 0.17 Basophils Latest Ref Range: 0.01 - 0.08 x10(9)/L 0.04 Results for MUKUL REID ( ) as of 07/17/2021 20:20 Ref. Range 07/17/2021 16:41 Color, U Unknown Yellow Clarity Latest Ref Range: Clear Clear Source Unknown Urine, Urine, Midstream Nitrite, U Latest Ref Range: Negative Negative Leukocyte Esterase Latest Ref Range: Negative Negative pH Latest Ref Range: 5.0 - 8.0 7.0 Specific [place] Latest Ref Range: 1.001 - 1.035 1.015 Glucose Latest Ref Range: Negative mg/dL Negative Protein Urine Random Latest Units: mg/dL Negative Ketones, QL(U) Latest Ref Range: Negative mg/dL Negative Bilirubin Latest Ref Range: Negative Negative Blood Latest Ref Range: Negative Negative Urobilinogen Latest Ref Range: 0.2 - 1.0 mg/dL 0.2 White Blood Cells Latest Units: /hpf None Seen Red Blood Cells Latest Ref Range: 0 - 2 /hpf None Seen Squamous Cells Latest Units: /hpf Occ-3 ASSESSMENT / PLAN 1. Preoperative Exam 2. Pain Knee Left ASA 2 - Patient with mild systemic disease with no functional limitations. Revised cardiac risk index: Class I risk, 3.9% risk of a major cardiac event. Labs: CBC and urinalysis unremarkable Patient is medically optimized for the upcoming surgery. She will proceed with the upcoming surgery as planned. Instructions: Proceed with surgery as planned. Covid swab scheduled. Call surgeon if develops respiratory illness, fever, or other illness. Take the following medications the morning of surgery with a sip of water: gabapentin, Keppra, propranolol. No food or drink after midnight the morning of the surgery. No ibuprofen, naproxen, aspirin, vitamins, or supplements 7 days before the procedure. Tylenol is okay for pain. Written preoperative instructions given. 3. Epilepsy Seizure Not Intractable Without Status Epilepticus (HCC) Patient reports being seizure free on levetiracetam 500 milligrams twice daily. Continue to follow with neurology. 4. Depression Anxiety Symptoms well controlled on escitalopram and buspirone. 5. Attention Deficit Hyperactive Disorder Continue atomoxetine 80 mg daily. 6. Migraine Headache Patient reports significant improvement in migraines since starting propanolol for prophylaxis. Continue abortive therapy as necessary. 7. Gastric Bypass Status Post Continue cyanocobalamin injections. 8. Pain Low Back Chronic Managed on gabapentin and flexeril. 9. Need Vaccine Influenza 10. Need Vaccine Covid 19 Counseling on all components of each vaccine recommended for immunization status and age, including any previous adverse reactions, and ordered today. VIS for proposed vaccines provided and discussion regarding risks/benefits of accepting/declining proposed vaccines was provided. Information regarding vaccines given today is sent to the state registry.The risks and side effects of each vaccine component given were reviewed including soreness, swelling, redness, rash irritability, low-grade fever, and other mild symptoms were discussed. All questions were answered. The patient verbalized understanding and agreement with the above plan. ER IN documented in this encounter Plan of Treatment Not on filedocumented as of this encounter Results Urinalysis with Microscopic: Urine, Midstream (07/17/2021 4:41 PM TAILER IN) [facility] Time Signature Source Urine, Urine, 07/17/2021 FB60 Midstream 4:41 PM TAILER IN Clarity Clear Clear 07/17/2021 FB60 4:49 PM TAILER IN Color Yellow 07/17/2021 FB60 4:49 PM TAILER IN Comment: ----REFERENCE VALUE---- Colorless Yellow Dena Blood Negative Negative 07/17/2021 4:49 PM TAILER IN FB60 Nitrite Negative Negative 07/17/2021 4:49 PM TAILER IN FB60 Leukocyte Esterase Negative Negative 07/17/2021 4:49 PM CS T FB60 Protein Negative mg/dL 07/17/2021 4:49 PM TAILER IN FB60 Comment: ----REFERENCE VALUE---- Negative Trace Glucose Negative Negative mg/dL 07/17/2021 4:49 PM TAILER IN FB 60 Ketones, QI(U) Negative Negative mg/dL 07/17/2021 4:[address] FB60 Bilirubin Negative Negative 07/17/2021 4:49 PM TAILER IN FB60 pH 7.0 5.0 - 8.0 07/17/2021 4:49 PM TAILER IN FB60 Specific [place] 1.015 1.001 - 1.035 07/17/2021 4:49 PM TAILER IN FB60 Urobilinogen 0.2 0.2 - 1.0 mg/dL 07/17/2021 4:49 PM CS T FB60 White Blood Cells None Seen /hpf 07/17/2021 4:49 PM TAILER IN FB60 Comment: ----REFERENCE VALUE---- Males: 0-3 Females: 0-10 Unknown: 0-10 Red Blood Cells None Seen 0 - 2 /hpf 07/17/2021 4:49 PM TAILER IN FB60 Squamous Cells Occ-3 /hpf 07/17/2021 4:49 PM TAILER IN FB 60 Specimen Anatomical Collection Method Collection Time Receive d Time (Source) Location / / Volume Laterality Urine (Urine, 07/17/2021 4:41 PM 07/17/20 4:41 Midstream) TAILER IN PM TAILER IN Yvette Ascencio APRN CRafalNRafalP. LAB URINE ORDERABLES Performing Organization Address City/State/ZIP Code Phon e Number [address] [place] [address] [facility] [place] [address] System [address] CBC with Differential, Blood (07/17/2021 4:31 PM TAILER IN) athologist Signature Hemoglobin 13.3 11.6 - 07/17/2021 FB60 15.0 g/dL 4:35 PM TAILER IN Hematocrit 40.1 35.5 - 07/17/2021 FB60 44.9 % 4:35 PM TAILER IN Erythrocytes 4.24 3.92 - 07/17/2021 FB60 5.13 4:35 PM TAILER IN x10(12)/L MCV 94.6 78.2 - 07/17/2021 FB60 97.9 fL 4:35 PM TAILER IN RBC Distrib Width 13.1 12.2 - 07/17/2021 FB60 16.1 % 4:35 PM TAILER IN Platelet Count 261 157 - 371 07/17/2021 FB60 x10(9)/L 4:35 PM TAILER IN Leukocytes 7.1 3.4 - 9.6 07/17/2021 FB60 x10(9)/L 4:35 PM TAILER IN Neutrophils 3.68 1.56 - 07/17/2021 FB60 6.45 4:35 PM TAILER IN x10(9)/L Lymphocytes 2.62 0.95 - 07/17/2021 FB60 3.07 4:35 PM TAILER IN x10(9)/L Monocytes 0.61 0.26 - 07/17/2021 FB60 0.81 4:35 PM TAILER IN x10(9)/L Eosinophils 0.17 0.03 - 07/17/2021 FB60 0.48 4:35 PM TAILER IN x10(9)/L Basophils 0.04 0.01 - 07/17/2021 FB60 0.08 4:35 PM TAILER IN x10(9)/L Specimen Anatomical Collection Method Collection Time Receive d Time (Source) Location / / Volume Laterality Blood (Blood, 07/17/2021 4:31 PM 07/17/20 21 4:32 Venous) TAILER IN PM TAILER IN Yvette Ascencio APRN C.N.P. LAB BLOOD ADD-ON Performing Organization Address City/State/ZIP Code Phon e Number [facility] [place] [address] [facility] [place] [address] System in [place] [address] documented in this encounter Visit Diagnoses Diagnosis Preoperative Exam - Primary Pain Knee Left Epilepsy Seizure Not Intractable Without Status Epilepticus (HCC) Depression Anxiety Attention Deficit Hyperactive Disorder Migraine Headache Gastric Bypass Status Post Pain Low Back Chronic Need Vaccine Immunization Influenza Encounter For COVID-19 Vaccine Immunizat ion documented in this encounter Care Teams Tire Classifier Relationship Specialty Start Date End Date Matheus Feliciano M.B.B.S., MDonald. PCP - General Family Medicine 01/09/[address] [place] [address] documented as of this encounter
--- OUTSIDE RECORDS SUMMARY | 2022-04-10 14:52 | XMS_ITS | Encounter Summary ---
:1980 Author Organization [facility] Address [address] [place] [address] Care Team Providers Name Role Phone Matheus Feliciano M.D. Primary Care Provider [phone] Encounter Details Date Type Department Care Team Description 06/25/2021 Orders Only Pharmacy Prior Auth RO Matheus Feliciano I., [place] [address] [place] [phone] (Wo rk) Social History Tobacco Use Types [...] do you attend episcopal or Never 2021 scientologist services? Do you [...] to sleep or slept in a senior care (including now)? Education Answer Date Recorded What is the highest level of school you have completed or th e 9th grade 11/26/2020 highest degree you have received? Sex Assigned at Date Recorded Female 09/01/2021 7:35 PM [employer] documented as of this encounter Plan of Treatment Not on filedocumented as of this encounter Visit Diagnoses Not on filedocumented in this encounter Care Teams Griddle Cook Relationship Specialty Start Date End Date Matheus Feliciano M.B.BRafalSRafal, Jose. PCP - General Family Medicine 01/09/[address] [place] [address] PANKAJ Velez [phone] documented as of this encounter
--- OUTSIDE RECORDS SUMMARY | 2022-04-10 14:52 | XMS_ITS | Encounter Summary ---
:1980 Author Organization [facility] Address [address] [place] [address] Care Team Providers Name Role Phone Matheus Feliciano M.D. Primary Care Provider [phone] Reason for Visit Reason Comments Med Refill Encounter Details Date Type Department Care Team Description 07/21/2021 Refill Department of Family Medicine, Matheus Feliciano I., Med Refill [facility], in Ralph Pelletier [place], [place] [address] [facility] [address] [place] [address] [place] [address] [phone] Social History Tobacco Use Types Packs/Day Years [...] or relatives? How often do you attend rastafari or Never 2021 caodaism services? 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 PCP - General Family Medicine 01/09/[address] [place] [address] [place] [address] documented as of this encounter
--- OUTSIDE RECORDS SUMMARY | 2022-04-10 14:52 | XMS_ITS | Encounter Summary ---
:1980 Author Organization [facility] Address [address] [place] [address] Care Team Providers Name Role Phone Matheus Feliciano M.D. Primary Care Provider [phone] Encounter Details Date Type Department Care Team Description 07/02/2021 Clinical Communication Department of Matheus [facility], Prabhu Parmar, Clinic, in [place] [address] [phone] Social History Tobacco Use Types Packs/Day Years [...] or relatives? How often do you attend alevism or Never 2021 mandaen services? 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 PCP - General Family Medicine 01/09/[address] [place] [address] [place] [address] documented as of this encounter
--- OUTSIDE RECORDS SUMMARY | 2022-04-10 14:52 | XMS_ITS | Encounter Summary ---
:1980 Author Organization [facility] Address [address] [place] [address] Care Team Providers Name Role Phone Matheus Feliciano M.D. Primary Care Provider [phone] Encounter Details Date Type Department Care Team Description 08/06/2021 Ancillary Procedure Department of Plastic and Reconstructive [...] do you attend sikh or Never 2021 hoahaoism services? 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 documented in this encounter Results Thighs-Plastic And Recon Surgery Image Exam (08/06/2021 12:05 AM NURSERY WORKER) Specimen (Source) Anatomical Location Collection Method / Collectio n Time Received Time / Laterality Volume Narrative IIMS - 08/06/2021 12:01 PM NURSERY WORKER This order has been created and auto-finalized [...] on filedocumented in this encounter Care Teams Party Host/Hostess Relationship Specialty Start Date End Date Matheus Feliciano M.B.B.S., Jose. PCP - General Family Medicine 01/09/[address] [place] [address] PANKAJ Velez [phone] documented as of this encounter
--- OUTSIDE RECORDS SUMMARY | 2022-04-10 14:52 | XMS_ITS | Encounter Summary ---
:1980 Author Organization [facility] Address [address] [place] [address] Care Team Providers Name Role Phone Matheus Feliciano M.D. Primary Care Provider [phone] Encounter Details Date Type Department Care Team Description 05/29/2021 Clinical Communication Department of Matheus [facility], Pr[facility]hu [facility], [facility], in [place] [address] [address] [phone] Social History Tobacco Use Types Packs/Day Years Used Date Smoking Tobacco: Former Cigarettes Smokeless Tobacco: Never Alcohol Use Standard Drinks/Week [...] or relatives? How often do you attend anglican or Never 2021 temple services? 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 - 05/30/2021 12:02 PM CDT Patient reports that about a week ago she and her were playing and her right breast was squeezed firmly. Since then she has had some pain in the breast; there was no bruising. There is an area approximately the size of a lemon that is tender to palpation but there is no discrete mass. No evidence for a fluid collection. She has had a prior gastric bypass. We have suggested ibuprofen liquid 400 mg with food twice daily for the next 5 days. She will send a portal message update. If her symptoms are not improving we would plan to see her as a [id number] visit at the [facility] in early June. All of the above was reviewed with her in detail. Her questions were answered. Gagan Tilley M.D. documented in this encounter Plan of Treatment Not on filedocumented as of this encounter Visit Diagnoses Not on filedocumented in this encounter Care Teams Coding Compliance Specialist Relationship Specialty Start Date End Date Matheus Feliciano M.B.B.S., M.D. PCP - General Family Medicine 01/09/[address] [place] [address] PANKAJ Velez [phone] documented as of this encounter
--- OUTSIDE RECORDS SUMMARY | 2022-04-10 14:52 | XMS_ITS | Encounter Summary ---
:1980 Author Organization [facility] Address [address] [place] [address] Care Team Providers Name Role Phone Matheus Feliciano M.D. Primary Care Provider [phone] Encounter Details Date Type Department Care Team Description 07/22/2021 Orders Only Pharmacy Prior Auth ANTONY Brenda Huynh [phone] Social History Tobacco Use Types Packs/Day Years [...] or relatives? How often do you attend hindu or Never 2021 buddhist services? Do you belong to any clubs or Yes 09/02/2021 organizations such as hindu groups, unions, fraternal or athletic groups, or [...] place to sleep or slept in a nursing home (including now)? Education Answer Date Recorded What is the highest level of school you have completed or th e 9th grade 11/26/2020 highest degree you have received? 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 PCP - General Family Medicine 01/09/[address] [place] [address] [place] [phone] documented as of this encounter
--- OUTSIDE RECORDS SUMMARY | 2022-04-10 14:52 | XMS_ITS | Encounter Summary ---
:1980 Author Organization [facility] Address [address] [place] [address] Care Team Providers Name Role Phone Matheus Feliciano M.D. Primary Care Provider [phone] Reason for Visit Reason Comments Abdominal Pain Encounter Details Date Type Department Care Team Description 07/02/2021 Nurse Triage Department of Nehal Ho Abdominal Pain Medicine, [facility], [facility] [address] [address] [place] [address] [phone] Social History Tobacco Use Types Packs/Day Years [...] do you attend hindu or Never 2021 yazidi services? 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 - 07/02/2021 11:50 AM HOSPICE ART THERAPIST Chief Complaint / Reason for Call Patient is a 40 y.o. female calling regarding Abdominal Pain. Assessment Concern: Is having really bad sharp pain in her lower right abdomen where right ovary would be and upper left abdomen below the breast. The pain doubles her over and comes and goes. She is not able to sleep with this pain. Still has her right ovary. Hysterectomy and left ovary removed. Present for: 10 days. Started getting worse 5 days ago. Home cares tried: Gabapentin and Flexeril without relief Calling to request: appointment The recommended disposition is Go to ED Now. She will have someone take her to the ED now Reason for Disposition ? ? [1] SEVERE pain (e.g., excruciating) AND [2] present > 1 hour Protocols used: ABDOMINAL PAIN - [id number] Care Advice GO TO ED NOW: ANOTHER ADULT SHOULD DRIVE: * It is better and safer if another adult drives instead of you. ICE ART THERAPIST documented in this encounter Plan of Treatment Not on filedocumented as of this encounter Visit Diagnoses Not on filedocumented in this encounter Care Teams Net Developer Architect Relationship Specialty Start Date End Date Matheus Feliciano M.B.B.S., M.D. PCP - General Family Medicine 01/09/[address] [place] [address] Faye WahkiakumPANKAJ woody [phone] documented as of this encounter
--- OUTSIDE RECORDS SUMMARY | 2022-04-10 14:52 | XMS_ITS | Encounter Summary ---
:1980 Author Organization [facility] Address [address] [place] [address] Care Team Providers Name Role Phone Matheus Feliciano M.D. Primary Care Provider [phone] Reason for Visit Reason Comments Schedule surgery Encounter Details Date Type Department Care Team Description 08/19/2021 Clinical Communication Division of Plastic [facility] [place], Ph.D. [address] [place] [phone] Social History Tobacco Use Types Packs/Day Years [...] do you attend sabianism or Never 2021 muslim services? 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 - 08/22/2021 2:49 PM SPECIAL DAY CLASS TEACHER REASON FOR CALL Schedule surgery Information Discussed Patient calling to schedule surgery. Per patient, she has recovered from her recent knee surgery. Katie received approval for the panniculectomy from her insurance company. A surgical date of October 07, 2021 was mutually agreed upon. We did discuss that with the recent surge in COVID cases, there is a chance her surgery could be cancelled or postponed. She verbalizes her understanding and would like to proceed on October 07. A listing appointment has been scheduled on September 06 to finalize surgical plans with Dr. Ziegler. Patient understands this may require an overnight stay in the hospital. P ostoperative activity restrictions of 4 weeks were discussed as well as the need for drains. Patientrecently tested positive for COVID-19 herself. The testing was done at an outside facility. She willsend those results to us. With the surgery being rescheduled within 90 days, another COVID swab willnot be required prior to surgery. Patient does verbalize understanding of the above information. Shehas no further questions or concerns at this time. PLAN Disposition/Recommendation: surgery scheduled on October 07, [address] Ziegler Information/Education: patient/caller able to teach back Caller agreeable to plan of care: yes The following references were used: nursing clinical judgement IAL DAY CLASS TEACHER Telephone Encounter - Rosy Trujillo - 08/21/2021 1:45 PM CST Patient called. I did let her know that you will be in contact with her. She has been approved. I did verify that. IAL DAY CLASS TEACHER Telephone Encounter - Deepa Garcia - 08/19/2021 4:48 PM CST Pt calling wanting to get surgery scheduled. Please give her a call when you can Thank you IAL DAY CLASS TEACHER documented in this encounter Plan of Treatment Not on filedocumented as of this encounter Visit Diagnoses Not on filedocumented in this encounter Care Teams Family Educator Relationship Specialty Start Date End Date Matheus Feliciano M.B.B.S., M.D. PCP - General Family Medicine 01/09/[address] [place] [address] Isaac [place] woody [phone] documented as of this encounter
--- OUTSIDE RECORDS SUMMARY | 2022-04-10 14:52 | XMS_ITS | Encounter Summary ---
:1980 Author Organization [facility] Address [address] [place] [address] Care Team Providers Name Role Phone Matheus Feliciano M.D. Primary Care Provider [phone] Encounter Details Date Type Department Care Team Description 07/17/2021 Hospital Encounter Department of Yvette Ascencio Preoper ative Exam Laboratory Medicine DATA INTEGRATION DEVELOPER, C.N.PRafal in [address] [address] [place], [place] [phone] (Work) [phone] Social History Tobacco Use Types Packs/Day Years [...] do you attend worship or Never 2021 pentecostal services? 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 acetaminophen Take 650 mg by mouth 0 04/13/2020 0 10/07/2021 (TYLENOL) 325 mg as needed. tablet adapalene (DIFFERIN) Apply topically at 0 10/07/2021 0.1 % cream bedtime. ascorbic acid,vitamin Take by mouth daily. 0 10/07/2021 C,,bulk, 100 % powder atomoxetine TAKE ONE CAPSULE BY 90 capsule 3 10/12/202011/09 (STRATTERA) 80 mg MOUTH EVERY DAY capsule busPIRone (BUSPAR) 30 TAKE 1 TABLET(30 MG) 180 tablet 3 05/1004/01/2022 mg tablet BY MOUTH TWICE DAILY calcium Take 1 tablet by mouth 0 07/13/2013 carbonate-vitamin D3 daily. 500 mg(1,250mg) -400 unit tablet cyclobenzaprine Take 1 tablet (10 mg 30 tablet 1 06/10/2021 08/06/2021 (FLEXERIL) 10 mg total) by mouth at tablet bedtime as needed for muscle spasms. diclofenac sodium 0 04/22/2021 022 (VOLTAREN XR) 100 mg 24 hr tablet escitalopram (LEXAPRO) TAKE 1 TABLET BY MOUTH 90 tablet 3 0 03/04/2021 01/02/2022 20 mg tablet EVERY DAY meloxicam (MOBIC) 7.5 Take 7.5 mg by mouth. 0 10/07/2021 mg tablet nystatin-triamcinolone Apply 0.5 inches 0 10/07/2021 (MYCOLOG II) 100,000 topically as needed. Unit/g-0.1 % cream propranoloL (INDERAL) Start with 1 tablet by 120 tablet 11 01/01/2022 20 mg mouth twice daily. tabletIndications: After 2 weeks, if Migraine With Aura tolerated may increase Without Headache to 2 tablets twice daily. traZODone (DESYREL) 50 Take 1 tablet (50 mg 30 tablet 0 07/23/2021 mg tablet total) by mouth at bedtime as needed for sleep. trospium (SANCTURA) 20 Take 1 tablet (20 mg 180 tablet 3 12/202001/29/2022 mg tablet total) by mouth 2 (two) times a day before breakfast and dinner. documented as of this encounter Plan of Treatment Not on filedocumented as of this encounter Procedures Procedure Name Priority Date/Time Associated Diagnosis Comme nts CBC WITH Routine 07/17/2021 4:31 PM Preoperative Exam Resu lts for this DIFFERENTIAL, B COMMUNITY ARTS CENTRE MANAGER procedure ar e in the results section. documented in this encounter Results CBC with Differential, Blood (07/17/2021 4:31 PM COMMUNITY ARTS CENTRE MANAGER) P athologist Signature Hemoglobin 13.3 11.6 - 07/17/2021 FB60 15.0 g/dL 4:35 PM COMMUNITY ARTS CENTRE MANAGER Hematocrit 40.1 35.5 - 07/17/2021 FB60 44.9 % 4:35 PM COMMUNITY ARTS CENTRE MANAGER Erythrocytes 4.24 3.92 - 07/17/2021 FB60 5.13 4:35 PM COMMUNITY ARTS CENTRE MANAGER x10(12)/L MCV 94.6 78.2 - 07/17/2021 FB60 97.9 fL 4:35 PM COMMUNITY ARTS CENTRE MANAGER RBC Distrib Width 13.1 12.2 - 07/17/2021 FB60 16.1 % 4:35 PM COMMUNITY ARTS CENTRE MANAGER Platelet Count 261 157 - 371 07/17/2021 FB60 x10(9)/L 4:35 PM COMMUNITY ARTS CENTRE MANAGER Leukocytes 7.1 3.4 - 9.6 07/17/2021 FB60 x10(9)/L 4:35 PM COMMUNITY ARTS CENTRE MANAGER Neutrophils 3.68 1.56 - 07/17/2021 FB60 6.45 4:35 PM COMMUNITY ARTS CENTRE MANAGER x10(9)/L Lymphocytes 2.62 0.95 - 07/17/2021 FB60 3.07 4:35 PM COMMUNITY ARTS CENTRE MANAGER x10(9)/L Monocytes 0.61 0.26 - 07/17/2021 FB60 0.81 4:35 PM COMMUNITY ARTS CENTRE MANAGER x10(9)/L Eosinophils 0.17 0.03 - 07/17/2021 FB60 0.48 4:35 PM COMMUNITY ARTS CENTRE MANAGER x10(9)/L Basophils 0.04 0.01 - 07/17/2021 FB60 0.08 4:35 PM COMMUNITY ARTS CENTRE MANAGER x10(9)/L Specimen Anatomical Collection Method Collection Time Receive d Time (Source) Location / / Volume Laterality Blood (Blood, 07/17/2021 4:31 PM 07/17/20 21 4:32 Venous) COMMUNITY ARTS CENTRE MANAGER PM COMMUNITY ARTS CENTRE MANAGER Richard Sow APRNNBernard LAB BLOOD ADD-ON Performing Organization Address City/State/ZIP Code Phon e Number [facility]- [address] [place] [address] [facility] [place] [address] [address] documented in this encounter Visit Diagnoses Diagnosis Preoperative Exam documented in this encounter Care Teams Shaper Set Up Operator Relationship Specialty Start Date End Date Matheus Feliciano M.B.B.S., MDonald. PCP - General Family Medicine 01/09/[address] [facility] [place] [address] documented as of this encounter
--- OUTSIDE RECORDS SUMMARY | 2022-04-10 14:52 | XMS_ITS | Encounter Summary ---
:1980 Author Organization [facility] Address [address] [place] [address] Care Team Providers Name Role Phone Matheus Feliciano M.D. Primary Care Provider [phone] Reason for Visit Reason Comments Med Refill Encounter Details Date Type Department Care Team Description 08/04/2021 Refill Department of Family Medicine, Matheus Feliciano I., Med Refill [facility], in Ralph Pelletier [place], [place] 300 [facility] 300 [place] [address] [place] [address] [phone] Social History Tobacco Use Types Packs/Day Years [...] or relatives? How often do you attend muslim or Never 2021 adventism services? 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 PCP - General Family Medicine 01/09/[address] [place] [address] PANKAJ Velez [phone] documented as of this encounter
--- OUTSIDE RECORDS SUMMARY | 2022-04-10 14:52 | XMS_ITS | Encounter Summary ---
:1980 Author Organization [facility] Address [address] [place] [address] Care Team Providers Name Role Phone Matheus Feliciano M.D. Primary Care Provider [phone] Reason for Visit Reason Comments Rx Prior Authorization [place] DENIED ZOLMITRIPTAN ORAL TAB 5MG Encounter Details Date Type Department Care Team Description 07/09/2021 Clinical Communication Department of Madhav Feliciano Family MedicineMatheus I., Authorizati on (Terry NicholsB.SRafal, DENIED ZOL MITRIPTAN in [place] ORAL TAB 5MG) [place] 300 [facility] 300 [place] [phone] Social History Tobacco Use Types Packs/Day Years [...] or relatives? How often do you attend adventist or Never 2021 protestant services? Do you belong to any clubs or Yes 09/02/2021 organizations such as adventist groups, unions, fraternal or athletic groups, or [...] place to sleep or slept in a [facility] (including now)? Education Answer Date Recorded What is the highest level of school you have completed or th e 9th grade 11/26/2020 highest degree you have received? 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 The patient's health insurer has denied prior authorization for [ZOLMITRIPTAN ORAL TAB 5MG]. A quick view of the denial reason [...] Maco CHAPA. Thank you, The OPPA Team S ANALYTICS MANAGER documented in this encounter Plan of Treatment Not on filedocumented as of this encounter Visit Diagnoses Not on filedocumented in this encounter Additional Health Concerns Infection Onset Date Last Indicated Resolved Time COVID19 Pending 07/20/2021 07/21/2021 07/22/2021 12:24 PM SALES ANALYTICS MANAGER documented as of this encounter Care Teams Career Development Consultant Relationship Specialty Start Date End Date Matheus Feliciano M.B.B.S., M.D. PCP - General Family Medicine 01/09/[address] [place] [phone] documented as of this encounter
--- OUTSIDE RECORDS SUMMARY | 2022-04-10 14:52 | XMS_ITS | Encounter Summary ---
:1980 Author Organization [facility] Address [address] [place] [address] Care Team Providers Name Role Phone Matheus Feliciano M.D. Primary Care Provider [phone] Reason for Visit Reason Onset Date Comments Outpatient COVID-19 Testing 07/20/2021 Encounter Details Date Type Department Care Team Description 07/20/2021 External Outreach Department of [facility] Krishan Friedman Contact With And Medicine, Carlos Vasquez D.O. (Suspected) Exposure Building, in [address] COVID-19 ([place], [place] Dx) [address] [facility] [address] [place], [place] [phone] [address] (Work) [phone] Social History Tobacco Use Types Packs/Day Years [...] do you attend orthodoxy or Never 2021 mormon services? 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/2021 7:35 PM RN TRANSITION documented as of this encounter Progress Notes Nolvia Torres R.N. - 07/20/2021 10:27 AM CST Encounter created for infectious disease screening. TRANSITION documented in this encounter Plan of Treatment Not on filedocumented as of this encounter Procedures Procedure Name Priority Date/Time Associated Diagnosis Comme nts SARS CORONAVIRUS-2 Routine 07/21/2021 2:32 PM Contact With And Results for this RNA, V RN TRANSITION (Suspected) Exposure procedu re are in To COVID-19 the results section. documented in this encounter Results SARS Coronavirus-2 RNA, V Asymptomatic (07/21/2021 2:32 PM RN TRANSITION) [facility] Method Time Signature SARS-CoV-2 Swab, 07/22/2021 MKTO Specimen Nasopharynx 12:23 PM Source RN TRANSITION SARS CoV-2 Undetected Undetected 07/22/2021 MKTO RNA, TMA 12:23 PM RN TRANSITION Comment: SARS-CoV-2 RNA absent. This result does not rule out COVID-19 in the patient, as the sensitivity of the test depends o n the timing of the specimen collection and the quality of the specim en. Result should be correlated with patient's history and clinical presentat ion. ----ADDITIONAL INFORMATION---- This molecular amplification test was pe rformed using the Aptima SARS-CoV-2 assay ([employer] on the Tri[employer] n [employer] tem under emergency use authorization (EUA) by the U.S. Food and Drug Administ ration. Fact sheets for this EUA assay can be fo und at the following links: For Healthcare Providers: https://www.WaveCheck a.gov/media/443506/download For Patients: https://www.fda.gov/media/ 720005/download Specimen Anatomical Collection Method Collection Time Receive d Time (Source) Location / / Volume Laterality Varies 07/21/2021 2:32 PM 4:28 (Nasopharynx) RN TRANSITION AM RN TRANSITION Krishan Friedman D.O. LAB MICROBIOLOGY - GENERAL O RDERABLES Performing Organization Address City/[facility]/ZIP Code Phon e Number [address] [place] [address] System [address] documented in this encounter Visit Diagnoses Diagnosis Contact With And (Suspected) Exposure To COVID-19 - Primary documented in this encounter Additional Health Concerns Infection Onset Date Last Indicated Resolved Time COVID19 Pending 07/20/2021 07/21/2021 07/22/2021 12:24 PM RN TRANSITION documented as of this encounter Care Teams Crop Farm Helper Relationship Specialty Start Date End Date Matheus Feliciano M.B.BRafalSRafal, MDonald. PCP - General Family Medicine 01/09/[address] [place] [phone] documented as of this encounter
--- OUTSIDE RECORDS SUMMARY | 2022-04-10 14:52 | XMS_ITS | Encounter Summary ---
:1980 Author Organization [facility] Address [address] [place] [address] Care Team Providers Name Role Phone Matheus Feliciano M.D. Primary Care Provider [phone] Reason for Visit Reason Comments Med Refill Encounter Details Date Type Department Care Team Description 07/02/2021 Refill Department of Family Medicine, Gagan Mcpherson M.D. Med Refill [facility], in [address] PANKAJ [place] [phone] [place] [address] [place] [address] [phone] Social History Tobacco Use Types Packs/Day Years [...] or relatives? How often do you attend yazdanism or Never 2021 mormon services? 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 PCP - General Family Medicine 01/09/[address] [place] [address] [place] [phone] documented as of this encounter
--- OUTSIDE RECORDS SUMMARY | 2022-04-10 14:52 | XMS_ITS | Encounter Summary ---
:1980 Author Organization [facility] Address [address] [place] [address] Care Team Providers Name Role Phone Matheus Feliciano M.D. Primary Care Provider [phone] Encounter Details Date Type Department Care Team Description 07/02/2021 Orders Only Pharmacy Prior Auth RO Matheus Feliciano I., [place] Pelletier [address] [place] [phone] (Wo rk) Social History Tobacco Use [...] or relatives? How often do you attend jainism or Never 2021 judaism services? Do you belong to any clubs or Yes 09/02/2021 organizations such as jainism groups, unions, fraternal or athletic groups, or [...] place to sleep or slept in a [facility] (including now)? Education Answer Date Recorded What is the highest level of school you have completed or th e 9th grade 11/26/2020 highest degree you have received? 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 PCP - General Family Medicine 01/09/[address] [place] [address] PANKAJ Velez [phone] documented as of this encounter
--- OUTSIDE RECORDS SUMMARY | 2022-04-10 14:52 | XMS_ITS | Encounter Summary ---
:1980 Author Organization [facility] Address [address] [place] [address] Care Team Providers Name Role Phone Matheus Feliciano M.D. Primary Care Provider [phone] Reason for Referral Medication Prior Authorization - Denied Specialty Diagnoses / Procedures Referred By Contact Refer red To Contact Matheus Feliciano M.B.B.S., M.D. [address] [place] [address] Referral ID Status Reason Start Date Expiration Date Visits Requ ested Visits Authorized [id number] Denied 1 1 LATORY COMPLIANCE SPECIALIST Reason for Visit Reason Comments Follow-up Discuss sleeping medication and determine possible surgery next steps Outpatient (Routine) - Closed Specialty Diagnoses / Procedures Referred By Contact Refer red To Contact Family Medicine Matheus Feliciano I., [facility] PANKAJ Pelletier M.D. [address] [place] [address] Referral ID Status Reason Start Date Expiration Date Visits Requ ested Visits Authorized [id number] Closed 06/10/2021 06/10/2022 1 1 Encounter Details Date Type Department Care Team Description 06/24/2021 Office Visit Department of Family Matheus Feliciano (Primary Dx); MedicineRishi M.B.B.S., [facility], in [place] 300 [facility] 300 [facility] [place] [phone] Social History Tobacco Use Types Packs/Day Years [...] do you attend mandaeism or Never 2021 caodaism services? 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/2021 7:35 PM REGULATORY COMPLIANCE SPECIALIST documented as of this encounter Last Filed Vital Signs Vital Sign Reading Time Taken Comments Blood Pressure 106/73 06/24/2021 3:49 PM REGULATORY COMPLIANCE SPECIALIST Pulse 72 06/24/2021 3:49 PM REGULATORY COMPLIANCE SPECIALIST Temperature 36.4 ??C (97.5 ??F) 06/24/2021 3:49 PM REGULATORY COMPLIANCE SPECIALIST Respiratory Rate 14 06/24/2021 3:49 PM REGULATORY COMPLIANCE SPECIALIST Oxygen Saturation - - Inhaled Oxygen Concentration - - Weight 67.1 kg (148 lb 0.6 oz) 06/24/2021 3:49 PM REGULATORY COMPLIANCE SPECIALIST Height - - Body Mass Index 24.97 01/29/2021 11:32 AM CDT documented in this encounter Progress Notes Matheus Feliciano M.B.B.S., M.D. - 06/24/2021 4:15 PM CST SUBJECTIVE CHIEF COMPLAINT / REASON FOR VISIT Gricelda Roberts is a 40 y.o. female who presents for evaluation of Follow-up (Discuss sleeping medication and determine possible surgery next steps). HISTORY OF PRESENT ILLNESS Gricelda Roberts is a 40-year-old female with a history of epilepsy and depression. She presents today with concerns for chronic insomnia. She is currently taking Unisom at night. She had previously been on Ambien. She has also tried homeopathic remedies and was also placed on tramadol at a time. Patient reports getting a 1-2 hour nap every afternoon. She gets about 4-6 hours of sleep every night as well. She generally says her thermostat at 80?? F and admits using energy drinks at night up to 10:00 p.m.. She also plays video games on her phone and watches TV while lying in bed. Patient is status post gastric bypass and has a significant pannus on her abdomen. She keeps having recurrent fungal rash which responds well to treatment. However, this affects her quality of life with recurrent episodes of pain and itching. The following portions of the patient's history were reviewed and updated as appropriate: allergies,current medications, family history, medical history, social history, surgical history and problem list. REVIEW OF SYSTEMS Pertinent items are noted in HPI. OBJECTIVE BP 106/73 (BP Location: Left arm, Patient Position: Sitting, Cuff Size: Regular) Pulse 72 Temp 36.4 ??C (Temporal) Resp 14 Wt 67.1 kg BMI 24.97 kg/m?? PHYSICAL EXAM General Appearance: healthy, alert, no distress, cooperative. Skin: skin color, texture, turgor normal, no suspicious rashes or lesions. Head: normocephalic, no masses, lesions, tenderness or abnormalities. Eyes: Anicteric sclera. Pupils are equally round and reactive to light. Extraocular movements are intact. Lungs: percussion normal, good diaphragmatic excursion. Heart: RRR without murmur, gallop, or rubs. Musculoskeletal: Range of motion normal in hips, knees, shoulders, and spine. Neurologic: Gait normal. Reflexes normal and symmetric. Sensation grossly intact. ASSESSMENT / PLAN #1 Insomnia #2 Pannus Abdominal 40-year-old female here with chronic insomnia. We have reviewed her medications and discussed sleep hygiene extensively. She would cut down significantly on energy drink consumption at night. She would reset her thermostat to no more than 70?? F. Started on a medication like Ambien will be inappropriate at this time. Sheis using antihistamines which I will also want her to stop. I have started her on trazodone as needed while she walks on better sleep hygiene. Patient has a the pannus which has been causing her significant discomfort with recurrent rash and fungal infections. She is on ketoconazole which has improved the symptoms at this time. I have referred to General surgery to evaluate for surgery. LATORY COMPLIANCE SPECIALIST documented in this encounter Plan of Treatment Not on filedocumented as of this encounter Visit Diagnoses Diagnosis Insomnia - Primary Pannus Abdominal documented in this encounter Care Teams Tableman Relationship Specialty Start Date End Date Matheus Feliciano M.B.B.S., M.D. PCP - General Family Medicine 01/09/[address] [place] [phone] documented as of this encounter
--- OUTSIDE RECORDS SUMMARY | 2022-04-10 14:52 | XMS_ITS | Encounter Summary ---
:1980 Author Organization [facility] Address [address] [place] [address] Care Team Providers Name Role Phone Matheus Feliciano M.D. Primary Care Provider [phone] Encounter Details Date Type Department Care Team Description 06/26/2021 Orders Only Pharmacy Prior Auth ANTONY Brenda Huynh [phone] Social History Tobacco Use Types Packs/Day Years [...] or relatives? How often do you attend pentecostal or Never 2021 restoration services? Do you belong to any clubs or Yes 09/02/2021 organizations such as pentecostal groups, unions, fraternal or athletic groups, or [...] at Date Recorded Female 09/01/2021 7:35 PM LAND LEASING EXAMINER documented as of this encounter Plan of Treatment Not on filedocumented as of this encounter Visit Diagnoses Not on filedocumented in this encounter Care Teams Manhole Stripper Relationship Specialty Start Date End Date Matheus Feliciano M.B.B.S., M.D. PCP - General Family Medicine 01/09/[address] [place] [phone] documented as of this encounter
--- OUTSIDE RECORDS SUMMARY | 2022-04-10 14:52 | XMS_ITS | Encounter Summary ---
:1980 Author Organization [facility] Address [address] [place] [address] Care Team Providers Name Role Phone Matheus Feliciano M.D. Primary Care Provider [phone] Encounter Details Date Type Department Care Team [...] do you attend advent or Never 2021 sikh services? 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/2021 7:35 PM CERTIFIED LACTATION COUNSELOR documented as of this encounter Plan of Treatment Not on filedocumented as of this encounter Procedures Procedure Name Priority Date/Time Associated Diagnosis Comme nts PLASTIC AND RECON Routine 08/06/2021 12:00 AM Res ults for this SURGERY IMAGE EXAM CERTIFIED LACTATION COUNSELOR procedure are in the results section. documented in this encounter Results Abdomen Panniculectomy-Plastic And Recon Surgery Image Exam (08/06/2021 12:00 AM CERTIFIED LACTATION COUNSELOR) Specimen (Source) Anatomical Location Collection Method / Collectio n Time Received Time / Laterality Volume Narrative IIMS - 08/06/2021 12:01 PM CERTIFIED LACTATION COUNSELOR This order has been created and auto-finalized [...] on filedocumented in this encounter Care Teams Forklift Mechanic Relationship Specialty Start Date End Date Matheus Feliciano M.B.BRafalSRafal, MDonald. PCP - General Family Medicine 01/09/[address] [place] [address] PANKAJ Velez [phone] documented as of this encounter
--- OUTSIDE RECORDS SUMMARY | 2022-04-10 14:52 | XMS_ITS | Encounter Summary ---
:1980 Author Organization [facility] Address [address] [place] [address] Care Team Providers Name Role Phone Matheus Feliciano M.D. Primary Care Provider [phone] Reason for Referral Outpatient (Routine) - Closed Specialty Diagnoses / Procedures Referred By Contact Refer red To Contact Plastic Surgery Diagnoses Pannus Abdominal Matheus Feliciano I.[facility] [place] [address] [place] [address] Referral ID Status Reason Start Date Expiration Date Visits Requ ested Visits Authorized [id number] Closed 06/27/2021 06/27/2022 1 1 PROFILER Encounter Details Date Type Department Care Team Description 06/26/2021 Clinical Communication Department of Matheus Chester [place] I., M.B.B.S., Clinic, in [place] 300 [facility] 300 [place] [phone] Social History Tobacco Use Types Packs/Day [...] or relatives? How often do you attend hoahaoism or Never 2021 pentecostalism services? Do you belong to any clubs or Yes 09/02/2021 organizations such as hoahaoism groups, unions, fraternal or athletic groups, or [...] at Date Recorded Female 09/01/2021 7:35 PM GUN PROFILER documented as of this encounter Miscellaneous Notes Telephone Encounter - Ela Reaves - 07/02/2021 5:28 PM CST This patient has been scheduled to see Dr. Ziegler on 08/06 in [place]. Thank you. PROFILER Telephone Encounter - Matheus Feliciano M.B.B.S., M.D. - 06/27/2021 5:46 PM CST Order has been placed to Plastic Surgery in [place] PROFILER Telephone Encounter - Ela Fajardo L.P.N. - 06/27/2021 3:32 PM CST Patient called to clinic today and stated she would like to know what department patient should be referred too? Nurse stated Dermatology or plastic surgery. Patient stated it would be more like plastic surgery. Nurse stated we do not have any plastic surgery here in [place] and she would need to go to [place] or [place]. Patient stated she would like to be referred to Plastic Surgery in [place]. Nurse will send message to PCP to place orders. No further questions at time of call end. PROFILER Telephone Encounter - Kinza Sprague C.MMaki - 06/26/2021 5:25 PM GUN PROFILER FYI PROFILER Telephone Encounter - Edmond Justice - 06/26/2021 5:06 PM GUN PROFILER Reason for Communication: Pt was scheduled to see the [place] general surgery department for a consult regarding 'pannus abdominal.' However, the GNS team has advised that the dept would not be able to evaluate this. They are asking that the referring provider please consider a new department for continued care of this diagnosis. Current Can Nursing/Provider leave a detailed message?: Yes Did the patient refuse triage through Nurse line? (for symptom based concerns): N/A Action Needed: Dr. Feliciano, would you please advise to enter a new order for the pt to be seen in adifferent department for her consult? (GNS team was recommending either dermatology or plastic surgery as more appropriate areas for evaluation) Name of Medication (if relevant): N/A PROFILER documented in this encounter Plan of Treatment Scheduled Referrals Name Type Priority Associated Diagnoses Order S chedule Plastic Surgery - Outpatient Referral Routine Pannus Abdominal Expected: General consult 06/27/2021 (clinic) (Approximate), Expires: 06/27/2024 documented as of this encounter Visit Diagnoses Diagnosis Pannus Abdominal - Primary documented in this encounter Care Teams Review Rn Relationship Specialty Start Date End Date Matheus Feliciano M.B.B.S., M.D. PCP - General Family Medicine 01/09/[address] [place] [phone] documented as of this encounter
--- OUTSIDE RECORDS SUMMARY | 2022-04-10 14:52 | XMS_ITS | Encounter Summary ---
:1980 Author Organization [facility] Address [address] [place] [address] Care Team Providers Name Role Phone Matheus Feliciano M.D. Primary Care Provider [phone] Reason for Referral Outpatient (Routine) - Closed Specialty Diagnoses / Procedures Referred By Contact Refer red To Contact Family Medicine Matheus Feliciano I.[facility] liz Pelletier M.D. [address] [place] [phone] Referral ID Status Reason Start Date Expiration Date Visits Requ ested Visits Authorized [id number] Closed 06/10/2021 06/10/2022 1 1 Reason for Visit Reason Comments Rash rash comes and goes ongoing for more than 6 years after gastric bypass. Patient also stated her paulino y button is bothering her and is red and irritated Appointment Request (Routine) - Closed Specialty Diagnoses / Procedures Referred By Contact Refer red To Contact Family Medicine Referral ID Status Reason Start Date Expiration Date Visits Requ ested Visits Authorized [id number] Closed 06/04/2021 06/04/2022 1 1 Encounter Details Date Type Department Care Team Description 06/10/2021 Office Visit Department of Matheus Chester Abdominal Medicine, Prabhu Parmar, (Primar y Dx) Clinic, in [place] [address] [place] [phone] Social History Tobacco Use Types Packs/Day Years [...] or relatives? How often do you attend temple or Never 2021 zoroastrianism services? 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 - 06/10/2021 1:30 PM CDT SUBJECTIVE CHIEF COMPLAINT / REASON FOR VISIT Gricelda Roberts is a 40 y.o. female who presents for evaluation of Rash (rash comes and goes ongoing for more than 6 years after gastric bypass. Patient also stated her belly button is bothering her and is red and irritated). HISTORY OF PRESENT ILLNESS Gricelda Roberts this is a 40-year-old female who is status post gastric bypass surgery 8 years ago. She has a history of chronic rash under her pannus and around her umbilicus. Is itchy, painful and recurrence. She has managed this with Desitin and baby powder with mixed response. The following portions of the patient's history were reviewed and updated as appropriate: allergies,current medications, family history, medical history, social history, surgical history and problem list. REVIEW OF SYSTEMS Pertinent items are noted in HPI. OBJECTIVE BP 94/65 (BP Location: Left arm, Patient Position: Sitting, Cuff Size: Regular) Pulse 63 Temp 36.7 ??C (Temporal) Resp 16 Wt 65.2 kg BMI 24.22 kg/m?? PHYSICAL EXAM General Appearance: healthy, alert, no distress, cooperative. Skin: skin color, texture, turgor normal, no suspicious rashes or lesions. Head: normocephalic, no masses, lesions, tenderness or abnormalities. Eyes: Anicteric sclera. Pupils are equally round and reactive to light. Extraocular movements are intact. Abdomen: Abdomen soft, non-tender. Bowel sounds normal. No masses, organomegaly, excessive skin noted over her lower abdomen. Erythema and rash noted around the umbilicus. ASSESSMENT / PLAN #1 Pannus Abdominal The 10-year-old female here with recurrent fungal rash underneath her pannus. This is associated withpain and itching. I have started her on an anti fungal cream to be used as needed. I believe a referral to General surgery for removal of her pannus will also be appropriate. documented in this encounter Plan of Treatment Scheduled Referrals Name Type Priority Associated Diagnoses Order S [facility] Family Medicine Outpatient Referral Routine Expec kathleen: office visit 06/10/2021 (clinic) (Approximate), Expires: 06/10/2024 documented as of this encounter Visit Diagnoses Diagnosis Pannus Abdominal - Primary documented in this encounter Care Teams Passport Support Manager Relationship Specialty Start Date End Date Matheus Feliciano M.B.B.S., M.D. PCP - General Family Medicine 01/09/[address] [place] [phone] documented as of this encounter
--- OUTSIDE RECORDS SUMMARY | 2022-04-10 14:52 | XMS_ITS | Encounter Summary ---
:1980 Author Organization [facility] Address [address] [place] [address] Care Team Providers Name Role Phone Matheus Feliciano M.D. Primary Care Provider [phone] Encounter Details Date Type Department Care Team Description 07/21/2021 Hospital Encounter Department of Laboratory Miladys Friedman, Medicine, [facility], in [place], [address] [place], [place] [address] [facility] [address] [place] [address] [phone] Social History Tobacco Use Types Packs/Day Years [...] or relatives? How often do you attend lutheran or Never 2021 jainism services? Do you belong to any clubs or Yes 09/02/2021 organizations such as lutheran groups, unions, fraternal or athletic groups, or [...] at Date Recorded Female 09/01/2021 7:35 PM NUCLEAR WASTE MANAGEMENT ENGINEER documented as of this encounter Medications at [...] mouth at bedtime as needed for sleep. traZODone (DESYREL) 50 TAKE 1 TABLET(50 MG) [...] COVID19 Pending 07/20/2021 07/21/2021 07/22/2021 12:24 PM NUCLEAR WASTE MANAGEMENT ENGINEER documented as of this encounter Care Teams Retail Office Manager Relationship Specialty Start Date End Date Matheus Feliciano M.B.B.S., M.D. PCP - General Family Medicine 01/09/[address] [place] [address] PANKAJ Velez [phone] documented as of this encounter
--- OUTSIDE RECORDS SUMMARY | 2022-04-10 14:52 | XMS_ITS | Encounter Summary ---
:1980 Author Organization [facility] Address [address] [place] [address] Care Team Providers Name Role Phone Matheus Feliciano M.D. Primary Care Provider [phone] Encounter Details Date Type Department Care Team Description 07/17/2021 Orders Only Pharmacy Prior Auth RO Matheus Feliciano I., [place] [address] [place] [phone] (Wo rk) Social History Tobacco Use [...] do you attend presybeterian or Never 2021 denominational services? 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/2021 7:35 PM CANTEEN MANAGER documented as of this encounter Plan of Treatment Not on filedocumented as of this encounter Visit Diagnoses Not on filedocumented in this encounter Care Teams Claim Examiner Relationship Specialty Start Date End Date Matheus Feliciano M.B.BRafalSRafal, Jose. PCP - General Family Medicine 01/09/[address] [place] [address] PANKAJ Velez [phone] documented as of this encounter
--- OUTSIDE RECORDS SUMMARY | 2022-04-10 14:52 | XMS_ITS | Encounter Summary ---
:1980 Author Organization [facility] Address [address] [place] [address] Care Team Providers Name Role Phone Matheus Feliciano M.D. Primary Care Provider [phone] Encounter Details Date Type Department Care Team Description 07/17/2021 Hospital Encounter Department of Yvette Ascencio Preoper ative Exam Laboratory Medicine DIRECTOR ON AIR, C.N.PRafal in [address] [address] [place], [place] [phone] (Work) [phone] Social History Tobacco Use Types Packs/Day Years [...] do you attend judaism or Never 2021 baptism services? 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/2021 7:35 PM HAND SIZER documented as of this encounter Medications at [...] Name Priority Date/Time Associated Diagnosis Comme nts URINALYSIS WITH Routine 07/17/2021 4:41 PM Preoperative Exam R esults for this MICROSCOPIC HAND SIZER procedure are i n the results section. documented in this encounter Results Urinalysis with Microscopic: Urine, Midstream (07/17/2021 4:41 PM HAND SIZER) [facility] Signature Source Urine, Urine, 07/17/2021 FB60 Midstream 4:41 PM HAND SIZER Clarity Clear Clear 07/17/2021 FB60 4:49 PM HAND SIZER Color Yellow 07/17/2021 FB60 4:49 PM HAND SIZER Comment: ----REFERENCE VALUE---- Colorless Yellow Dena Blood Negative Negative 07/17/2021 4:49 PM HAND SIZER FB60 Nitrite Negative Negative 07/17/2021 4:49 PM HAND SIZER FB60 Leukocyte Esterase Negative Negative 07/17/2021 4:49 PM CS T FB60 Protein Negative mg/dL 07/17/2021 4:49 PM HAND SIZER FB60 Comment: ----REFERENCE VALUE---- Negative Trace Glucose Negative Negative mg/dL 07/17/2021 4:49 PM HAND SIZER FB 60 Ketones, QI(U) Negative Negative mg/dL 07/17/2021 4:[address] FB60 Bilirubin Negative Negative 07/17/2021 4:49 PM HAND SIZER FB60 pH 7.0 5.0 - 8.0 07/17/2021 4:49 PM HAND SIZER FB60 Specific Pearson 1.015 1.001 - 1.035 07/17/2021 4:49 PM HAND SIZER FB60 Urobilinogen 0.2 0.2 - 1.0 mg/dL 07/17/2021 4:49 PM CS T FB60 White Blood Cells None Seen /hpf 07/17/2021 4:49 PM HAND SIZER FB60 Comment: ----REFERENCE VALUE---- Males: 0-3 Females: 0-10 Unknown: 0-10 Red Blood Cells None Seen 0 - 2 /hpf 07/17/2021 4:49 PM HAND SIZER FB60 Squamous Cells Occ-3 /hpf 07/17/2021 4:49 PM HAND SIZER FB 60 Specimen Anatomical Collection Method Collection Time Receive d Time (Source) Location / / Volume Laterality Urine (Urine, 07/17/2021 4:41 PM 07/17/20 4:41 Midstream) HAND SIZER PM HAND SIZER Yvette Ascencio APRN, C.N.P. LAB URINE ORDERABLES Performing Organization Address City/State/ZIP Code Phon e Number [facility] [address] [place] [address] [facility] [place] [address] System [address] documented in this encounter Visit Diagnoses Diagnosis Preoperative Exam documented in this encounter Care Teams Fruit Harvester Relationship Specialty Start Date End Date Matheus Feliciano M.B.B.S., M.D. PCP - General Family Medicine 01/09/20 [address] [place] [address] documented as of this encounter
--- OUTSIDE RECORDS SUMMARY | 2022-04-10 14:53 | XMS_ITS | Encounter Summary ---
:1980 Author Organization [facility] Address [address] [place] [id number] Care Team Providers Name Role Phone Matheus Feliciano M.D. Primary Care Provider [phone] Reason for Referral Outpatient (Routine) - Closed Specialty Diagnoses / Procedures Referred By Contact Refer red To Contact Diagnoses Lithotripsy Extracoporeal Shock Wave Status Post Rebel Bernstein M.D. [facility] [place] [facility] Procedures FL Fluoro Less Than 1 Hour [address] [place] [address] Referral ID Status Reason Start Date Expiration Date Visits Requ ested Visits Authorized [id number] Closed 02/06/2021 02/06/2022 1 1 Reason for Visit Outpatient (Routine) - Closed Specialty Diagnoses / Procedures Referred By Contact Refer red To Contact Diagnoses Lithotripsy Extracoporeal Shock Wave Status Post Rebel Bernstein M.D. [facility] [place] [facility] Procedures FL Fluoro Less Than 1 Hour [address] [place] [address] Referral ID Status Reason Start Date Expiration Date Visits Requ ested Visits Authorized [id number] Closed 02/06/2021 02/06/2022 1 1 Encounter Details Date Type Department Care Team Description 02/06/2021 Hospital Encounter Department of Mariella Bernstein Radiology in [place] Extracoporeal Shock [place], [place] [address] Wave Status Post [address] [facility] ([facility] [place] [id number] Social History Tobacco Use Types Packs/Day Years [...] do you attend caodaism or Never 2021 sikh services? 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 cetirizine (ZyrTEC) 10 Take 1 tablet by 0 017 mg tablet mouth 2 (two) times a day. cholecalciferol (VITAMIN Take 2,000 Units by 0 D3) 50 mcg (2,000 Unit) mouth daily. tablet fluticasone (FLONASE) 50 Administer 2 sprays 16 g 11 mcg/actuation nasal into each nostril spray daily. lidocaine (LIDODERM) 5 % Place 1 patch on 90 patch 3 08/26 the skin daily. Apply to intact skin and remove patch after a maximum of 12 hr of application within a 24 hr period MULTIVITAMIN ORAL Take 1 tablet by 0 mouth daily. omega-3 fatty acids-fish Take 1 g by mouth 0 oil 300-1,000 mg capsule daily. 1200 mg ondansetron ODT Take 1 tablet (4 mg 20 tablet 1 01/23/2021 (ZOFRAN-ODT) 4 mg total) by mouth as disintegrating tablet needed for nausea. promethazine (PHENERGAN) Take 25 mg by mouth 0 25 mg tablet as needed for nausea. syringe with needle, Use 1 syringe 12 Syringe 0 03/13/2020 0 03/13/2021 safety (BD Integra monthly to inject Syringe) 3 mL 25 gauge x vitamin B12 12/15 syringe subcutaneously. acetaminophen (TYLENOL) Take 650 mg by 0 04/13/20 20 10/07/2021 325 mg tablet mouth as needed. adapalene (DIFFERIN) 0.1 Apply topically at 0 10/07/2021 % cream bedtime. ascorbic acid,vitamin Take by mouth 0 10/07/2021 C,,bulk, 100 % powder daily. atomoxetine (STRATTERA) TAKE ONE CAPSULE BY 90 capsule 3 12/202012/02/2021 80 mg capsule MOUTH EVERY DAY busPIRone (BUSPAR) 30 mg TAKE 1 TABLET(30 180 tablet 3 06/2005/21/2021 tablet MG) BY MOUTH TWICE DAILY calcium Take 1 tablet by 0 07/13/2013 10/07/19 22 carbonate-vitamin D3 500 mouth daily. mg(1,250mg) -400 unit tablet cyanocobalamin (VITAMIN ADMINISTER 1 ML IN 3 mL 3 02/202003/29/2021 B12) 1,000 mcg/mL THE MUSCLE 1 TIME A injection MONTH doxylamine (UNISOM) 25 Take 50 mg by 0 07/17/2021 mg tablet mouth. escitalopram (LEXAPRO) TAKE 1 TABLET BY 90 tablet 3 020 03/01/2021 20 mg tablet MOUTH EVERY DAY gabapentin (NEURONTIN) Take 3 capsules 270 capsule 11 020 07/05/2021 300 mg capsule (900 mg total) by mouth 3 (three) times a day. HYDROcodone-acetaminophe Take 1-2 tablets by 10 tablet 0 02/14/2021 n (NORCO) 5-325 mg per mouth every 6 (six) tabletIndications: Acute hours as needed for Pain moderate pain or score 4-6 of 10 Indication: acute pain. levETIRAcetam (KEPPRA) Take 1 tablet (500 60 tablet 11 06/2207/05/2021 500 mg tablet mg total) by mouth 2 (two) times a day. nystatin-triamcinolone Apply 0.5 inches 0 10/07/2021 (MYCOLOG II) 100,000 topically as Unit/g-0.1 % cream needed. oxyCODONE (ROXICODONE) 5 Take 5-10 mg by 0 202007/17/2021 mg immediate release mouth. tablet pantoprazole (PROTONIX) daily. 0 07/13/2020 1 09/17/2020 40 mg EC tablet propranoloL (INDERAL) 20 Start with 1 tablet 120 tablet 11 01/01/2022 mg tabletIndications: by mouth twice Migraine With Aura daily. After 2 Without Headache weeks, if tolerated may increase to 2 tablets twice daily. SUMAtriptan (IMITREX) as needed. 0 03/10/2018 100 mg tablet tamsulosin (FLOMAX) 0.4 Take 1 capsule (0.4 30 capsule 0 05/202102/14/2021 mg 24 hr capsule mg total) by mouth daily. trospium (SANCTURA) 20 Take 1 tablet (20 180 tablet 3 06/05/ 2021 01/29/2022 mg tablet mg total) by mouth 2 (two) times a day before breakfast and dinner. ZOLMitriptan (ZOMIG) 5 Take by mouth as 0 06/24/2021 mg tablet needed. documented as of this encounter Plan of Treatment Not on filedocumented as of this encounter Procedures Procedure Name Priority Date/Time Associated Diagnosis Comme nts FL FLUORO LESS RAD - Routine 02/06/2021 10:59 Lithotripsy Results for this THAN 1 HOUR (most inpatients AM CDT Extracoporeal Shock proc edure are in and all Wave Status Post the results outpatients) section. documented in this encounter Results FL Fluoro Less Than 1 Hour (02/06/2021 10:59 AM CDT) Specimen (Source) Anatomical Location Collection Method / Collectio n Time Received Time / Laterality Volume Narrative 8020 SAR[facility] KAMN - 02/06/2021 11:01 AM CDT This exam does not require a radiologist review or interpretation. Please refer to the patient's medical record on this date for clinical details. Rebel Bernstein M.D. [facility] FLUOROSCOPY PROCEDURES Performing Organization Address City/State/ZIP Code Phon e Number [id number] [facility] documented in this encounter Visit Diagnoses Diagnosis Lithotripsy Extracoporeal Shock Wave [facility] documented in this encounter Care Teams Joiner Relationship Specialty Start Date End Date Matheus Feliciano M.B.B.S., M.D. PCP - General Family Medicine 01/09/[address] [place] [address] [place] [phone] documented as of this encounter
--- OUTSIDE RECORDS SUMMARY | 2022-04-10 14:53 | XMS_ITS | Encounter Summary ---
:1980 Author Organization [facility] Address [address] [place] [address] Care Team Providers Name Role Phone Matheus Feliciano M.D. Primary Care Provider [phone] Encounter Details Date Type Department Care Team Description 02/14/2021 Hospital Encounter Department of [facility] PAT Gan R.N . Ureteral in [address] [address] [place], [place] [phone] (Work) [phone] Social History Tobacco Use Types Packs/Day Years [...] do you attend baptist or Never 2021 jew services? 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 cetirizine (ZyrTEC) 10 Take 1 tablet by 0 11/10/ 017 mg tablet mouth 2 (two) times [...] 3 mL 25 gauge x vitamin B12 5/8 syringe subcutaneously. acetaminophen (TYLENOL) Take 650 mg [...] by mouth 3 (three) times a day. levETIRAcetam (KEPPRA) Take 1 tablet (500 60 [...] 20 Start with 1 tablet 120 tablet 01/01/2022 mg tabletIndications: by mouth twice Migraine With Aura daily. After 2 Without Headache weeks, if tolerated may increase to 2 tablets twice daily. SUMAtriptan (IMITREX) as needed. 0 03/10/2018 100 mg tablet tamsulosin (FLOMAX) 0.4 Take 1 capsule (0.4 30 capsule 0 04/202103/21/2021 mg 24 hr capsule mg total) by mouth daily. trospium (SANCTURA) 20 Take 1 tablet (20 180 tablet 3 202001/29/2022 mg tablet mg total) by mouth 2 (two) times a day before breakfast and dinner. ZOLMitriptan (ZOMIG) 5 Take by mouth as 0 06/24/2021 mg tablet needed. documented as of this encounter Plan of Treatment Not on filedocumented as of this encounter Procedures Procedure Name Priority Date/Time Associated Comments Diagnosis URIC ACID, S/P Routine 02/14/2021 12:19 PM [facility] sults for this CDT Ureteral procedure are i n the results section. PHOSPHORUS Routine 02/14/2021 12:19 PM [facility] Res[facility] lts for this (INORGANIC), S CDT Ureteral procedure are in the results section. documented in this encounter Results Uric Acid (02/14/2021 12:19 PM CDT) P athologist Signature Uric Acid, P 3.3 2.7 - 6.1 02/14/2021 [facility] mg/dL 4:09 PM CDT Specimen Anatomical Collection Method Collection Time Receive d Time (Source) Location / / Volume Laterality Blood (Blood, 02/14/2021 12:19 02/14/2021 3:49 Venous) PM CDT PM CDT Sushila Mcneill APRN, R.N. LAB BLOOD ADD-ON Performing Organization Address City/State/ZIP Code Phon e Number [facility] [address] [place] [address] [facility] [place] [place] [address] [facility] [address] Phosphorus Inorganic (02/14/2021 12:19 PM CDT) P athologist Signature Phosphorus 3.5 2.5 - 4.5 02/14/2021 [facility] (Inorganic), P mg/dL 4:09 PM CDT Specimen Anatomical Collection Method Collection Time Receive d Time (Source) Location / / Volume Laterality Blood (Blood, 02/14/2021 12:19 02/14/2021 3:49 Venous) PM CDT PM CDT Sushila Mcneill APRN, R.N. LAB BLOOD ADD-ON Performing Organization Address City/State/ZIP Code Phon e Number [facility] [address] [place] [address] [facility] [place], [place] [id number] [place] [address] documented in this encounter Visit Diagnoses Diagnosis [facility] documented in this encounter Care Teams Roustabout Supervisor Relationship Specialty Start Date End Date Matheus Feliciano M.B.B.S., M.D. PCP - General Family Medicine 01/09/[address] [place] [address] [place]z [phone] documented as of this encounter
--- OUTSIDE RECORDS SUMMARY | 2022-04-10 14:53 | XMS_ITS | Encounter Summary ---
:1980 Author Organization [facility] Address [address] [place] [address] Care Team Providers Name Role Phone Matheus Feliciano M.D. Primary Care Provider [phone] Encounter Details Date Type Department Care Team Description 02/04/2021 Clinical Communication Department of [facility], Otorhinolaryngology in [place], [place] P.A.-C. [address] [place] [address] [phone] [place] [address] Social History Tobacco Use Types Packs/Day Years [...] or relatives? How often do you attend gnosticism or Never 2021 jewish services? 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 - 02/04/2021 4:44 PM CDT I spoke with the patient and went over these notes. She will follow up in clinic with Dr Costa. Transferred to scheduling Telephone Encounter - Trista Arroyo P.A.-C. - 02/04/2021 4:31 PM CDT Please let her know her scan is completely clear. No chronic sinus disease or swelling, no infection, no polyps, and her septum is not significantly deviated. If she would like to consider some type ofsurgery to open her nostrils more, she could schedule with Dr. Costa in [place] office to review these options. Some people also sleep with nasal cones, you can get them [id number] or off of [employer] and they help keeping nose open when you sleeping. Telephone Encounter - Lanie Higgins L.P.N. - 02/04/2021 2:11 PM CDT Patient would like results from her CT. Results are in Care Everywhere. Telephone Encounter - Juana Zeng - 02/04/2021 1:50 PM CDT -Reason for Communication: Patient is calling in stating that she has a CT done of her nasal passageway on 01/29/21 at [facility]. Patient stated that Trista Arroyo is the provider that is to review her results. She can see that her results are in through the portal, but is needing to be informed of the results by Trista Arroyo. Current Can Nursing/Provider leave a detailed message: Action Needed: Please review and advise. Name of Medication (if relevant): documented in this encounter Plan of Treatment Not on filedocumented as of this encounter Visit Diagnoses Not on filedocumented in this encounter Additional Health Concerns Infection Onset Date Last Indicated Resolved Time COVID19 Pending 02/01/2021 02/03/2021 02/04/2021 4:50 PM CDT documented as of this encounter Care Teams Service Line Layer Relationship Specialty Start Date End Date Matheus Feliciano M.B.B.S., M.D. PCP - General Family Medicine 01/09/[address] [place] [phone] documented as of this encounter
--- OUTSIDE RECORDS SUMMARY | 2022-04-10 14:53 | XMS_ITS | Encounter Summary ---
:1980 Author Organization [facility] Address [address] [place] [address] Care Team Providers Name Role Phone Matheus Feliciano M.D. Primary Care Provider [phone] Reason for Visit Reason Comments Pre-op Exam kidney stone removal surgery on 02/06 with . Outpatient (Routine) - Closed Specialty Diagnoses / Procedures Referred By Contact Refer red To Contact Family Medicine Diagnoses Gastric Bypass Status Post Stone Kidney And Ureteral Sushila Mcneill, CEDRICS [facility] ALARM OPERATOR, R.N. [address] [place] [address] Referral ID Status Reason Start Date Expiration Date Visits Requ ested Visits Authorized [id number] Closed 01/23/2021 01/23/2022 1 1 Encounter Details Date Type Department Care Team Description 01/29/2021 Office Visit Department of [facility] Matheus Feliciano Yana lorrie Bypass Status Post; Medicine, Negin ParmarSRafal, [facility], in [place] [address] [facility] [address] [place] [phone] Social History Tobacco Use [...] or relatives? How often do you attend jew or Never 2021 taoism services? 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 - 01/29/2021 11:30 AM CDT Adult PRE-OP Evaluation: Gricelda Roberts, 1980 presents for pre-operative evaluation and assessment as requested by Dr.Alex Bernstein. Proposed procedure: Left Cystoscopy, Ureteroscopy; Laser Lithotripsy; Basket Stent Date of Surgery/ Procedure: 02/06/2021 Hospital/Surgical Facility: [place] [address] Primary Physician: Prabhu Urrutia M.D. Type of Anesthesia Anticipated: General anesthesia History of anesthesia complications: NONE} History of abnormal bleeding: NONE History of blood transfusions: NONE Preoperative Questions NO - Do you have a history of heart attack, stroke, stent, bypass or surgery on an artery in the head, neck, heart or legs? NO - Do you ever have any pain or discomfort in your chest? NO - Do you have a history of Congestive Heart Failure? NO - Are you troubled by shortness of breath when: walking on the level/ up a slight hill/ at night? NO - Does your chest ever sound wheezy or whistling? NO - Do you currently have a cold, bronchitis or other respiratory infection? NO - Have you had a cold, bronchitis or other respiratory infection within the last 2 weeks? NO - Do you usually have a cough? NO - Do you sometimes get pains in the calves of your legs when you walk? NO - Do you or anyone in your family have previous history of blood clots? NO - Do you or does anyone in your family have a serious bleeding problem such as prolonged bleedingfollowing surgeries or cuts? NO - Have you ever had problems with anemia or been told to take iron pills? NO - Have you had any abnormal blood loss such as black, tarry or bloody stools, or abnormal vaginalbleeding? NO - Have you ever had a blood transfusion? NO - Have you or any of your relatives ever had problems with anesthesia? NO - Do you have sleep apnea, excessive snoring or daytime drowsiness? NO - Do you have any prosthetic heart valves? NO - Do you have prosthetic joints? NO - Is there any chance that you may be ? Patient Active Problem List Diagnosis ??? Seizure (HCC) ??? Opioid Moderate Or Severe Use Disorder (Dependence) Uncomplicated (HCC) ??? Depression Anxiety ??? Attention Deficit Hyperactive Disorder ??? 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 History Of Falling ??? Primary Osteoarthritis Multiple Sites ??? Pain Low Back Chronic ??? Migraine Headache ??? Gastric Bypass Status Post ??? Stone Kidney And Ureteral Current Outpatient Medications Medication Sig Dispense Refill ??? acetaminophen (TYLENOL) 325 mg tablet Take 650 mg by mouth as needed. ??? adapalene (DIFFERIN) 0.1 % cream Apply topically at bedtime. ??? ascorbic acid,vitamin C,,bulk, 100 % powder Take by mouth daily. ??? atomoxetine (STRATTERA) 80 mg capsule TAKE ONE CAPSULE BY MOUTH EVERY DAY 90 capsule 3 ??? busPIRone (BUSPAR) 30 mg tablet TAKE 1 TABLET(30 MG) BY MOUTH TWICE DAILY 180 tablet 3 ??? calcium carbonate-vitamin D3 500 mg(1,250mg) -400 unit tablet Take 1 tablet by mouth daily. ??? capsaicin (ARTHRITIS PAIN RELIEF,CAPSAIC,) 0.1 % cream Apply 1 application topically 3 (three) times a day as needed (Knee pain). 42.5 g 2 ??? cetirizine (ZyrTEC) 10 mg tablet Take 1 tablet by mouth daily. ??? cholecalciferol (VITAMIN D3) 2,000 Unit tablet Take 2,000 Units by mouth daily. ??? cyanocobalamin (VITAMIN B12) 1,000 mcg/mL injection ADMINISTER 1 ML IN THE MUSCLE 1 TIME A MONTH3 mL 3 ??? doxylamine (UNISOM) 25 mg tablet Take 50 mg by mouth. ??? escitalopram (LEXAPRO) 20 mg tablet TAKE 1 TABLET BY MOUTH EVERY DAY 90 tablet 3 ??? fluticasone (FLONASE) 50 mcg/actuation nasal spray Administer 2 sprays into each nostril daily. 16 g 11 ??? gabapentin (NEURONTIN) 300 mg capsule Take 3 capsules (900 mg total) by mouth 3 (three) times a day. 270 capsule 11 ??? levETIRAcetam (KEPPRA) 500 mg tablet Take 1 tablet (500 mg total) by mouth 2 (two) times a day. 60 tablet 11 ??? lidocaine (LIDODERM) 5 % Place 1 patch on the skin daily. Apply to intact skin and remove patch after a maximum of 12 hr of application within a 24 hr period 90 patch 3 ??? MULTIVITAMIN ORAL Take 2 tablets by mouth daily. ??? nystatin-triamcinolone (MYCOLOG II) 100,000 Unit/g-0.1 % cream Apply 0.5 inches topically as needed. ??? omega-3 fatty acids-fish oil 300-1,000 mg capsule Take 1 g by mouth daily. 1200 mg ??? ondansetron ODT (ZOFRAN-ODT) 4 mg disintegrating tablet Take 1 tablet (4 mg total) by mouth as needed for nausea. 20 tablet 1 ??? promethazine (PHENERGAN) 25 mg tablet Take 25 mg by mouth as needed. ??? SUMAtriptan (IMITREX) 100 mg tablet as needed. ??? syringe with needle, safety (BD Integra Syringe) 3 mL 25 gauge x 5/8 syringe Use 1 syringe monthly to inject vitamin B12 subcutaneously. 12 Syringe 0 ??? tamsulosin (FLOMAX) 0.4 mg 24 hr capsule Take 1 capsule (0.4 mg total) by mouth daily. 30 capsule 0 ??? trospium (SANCTURA) 20 mg tablet Take 1 tablet (20 mg total) by mouth 2 (two) times a day beforebreakfast and dinner. 180 tablet 3 ??? ZOLMitriptan (ZOMIG) 5 mg tablet Take by mouth as needed. ??? fremanezumab-vfrm (AJOVY) 225 mg/1.5 mL injection Inject 1.5 mL (225 mg total) under the skin every 30 (thirty) days. (Patient not taking: Reported on 01/29/2021 ) 1 Syringe 11 ??? HYDROcodone-acetaminophen (NORCO) 5-325 mg per tablet Take 1-2 tablets by mouth every 6 (six) hours as needed for moderate pain or score 4-6 of 10 Indication: acute pain. (Patient not taking: Reported on 01/29/2021 ) 20 tablet 0 ??? oxyCODONE (ROXICODONE) 5 mg immediate release tablet Take 5-10 mg by mouth. ??? pantoprazole (PROTONIX) 40 mg EC tablet daily. No current facility-administered medications for this visit. OTC products: None, except as noted above Allergies Allergen Reactions ??? Cephalexin Other (see comments) Latex Allergy:NO Social History Socioeconomic History ??? Marital status: Spouse name: None ??? Number of children: None ??? Years of education: None ??? Highest education level: 9th grade Occupational History ??? None Tobacco Use ??? Smoking status: Former Smoker Types: Cigarettes ??? Smokeless tobacco: Never Used Substance and Sexual Activity ??? Alcohol use: No ??? Drug use: No ??? Sexual activity: Defer Other Topics Concern ??? None Social History Narrative ??? None Social Determinants of Health Financial Resource Strain: Unknown ??? Difficulty of Paying Living Expenses: Patient refused Food Insecurity: Unknown ??? Worried About Running Out of Food in the Last Year: Patient refused ??? Ran Out of Food in the Last Year: Patient refused Transportation Needs: No Transportation Needs ??? Lack of Transportation (Medical): No ??? Lack of Transportation (Non-Medical): No Physical Activity: Insufficiently Active ??? Days of Exercise per Week: 1 day ??? Minutes of Exercise per Session: 30 min Stress: No Stress Concern Present ??? Feeling of Stress : Not at all Social Connections: Unknown ??? Frequency of Communication with Friends and Family: Patient refused ??? Frequency of Social Gatherings with Friends and Family: Patient refused ??? Attends [employer] Services: Patient refused ??? Active Member of Clubs or Organizations: Yes ??? Attends Club or Organization Meetings: Never ??? Marital Status: Intimate Partner Violence: ??? Fear of Current or Ex-Partner: ??? Emotionally Abused: ??? Physically Abused: ??? Sexually Abused: REVIEW OF SYSTEMS: GENERAL: No weight gain, no weight loss, no fever in past month, no chills, no sweats, no fatigue. HEENT: No blurred vision, no double vision, no eye pain, no sinus problems, no hoarseness, no difficulty swallowing, no mouth sores, no diminished hearing, no ringing in ears, no enlarged glands. PULMONARY: No shortness of breath, no cough, no wheezing, no sputum, no hemoptysis. CARDIAC: No valve problems, no chest pain, no chest pressure, no rapid beating, no irregular beating, no dependent edema, pain in calves or with walking, no difficulty moving arms and legs. GI: No heartburn, no nausea, no vomiting, no stomach trouble, no constipation, no diarrhea, no bloodin BMs, no change in BMs. REPRODUCTIVE: Is heterosexual , no change in sex drive or performance. : No burning/pain with urination, no difficulty starting stream, no difficulty emptying bladder, no excessive urination., MUSCULOSKELETAL: No joint pain, no joint swelling, no joint stiffness, no muscle pain, no muscle stiffness, + back pain, no back stiffness. SKIN: No skin rashes, no skin sores, no change in moles. NEURO: No significant headaches, no slurred speech, no seizures, no dizziness, no loss of consciousness, no memory loss. PSYCH: No mood change. Sleep is poor. Obstructing sleep apnea screening: Stop Bang Total Score: 1 EXAM: BP 92/68 (BP Location: Right arm, Patient Position: Sitting, Cuff Size: Regular) Pulse 97 Temp 36.4 ??C (Temporal) Resp 16 Ht 164 cm Wt 64.7 kg SpO2 100% BMI 24.06 kg/m?? GENERAL: Patient is in no distress. Capable of full communication without difficulty. Patient is polite and cooperative. Appropriately dressed and normal hygiene. HEENT: Normocephalic. EOMI, PERRLA, Canals patent, TMs normal. Oropharynx without lesion of mucosa. Pharyngeal rises symmetrically without exudate. NECK: No nodes, no thyromegaly. No bruit auscultated. HEART: Regular rate and rhythm. No murmurs, gallops or rubs noted. LUNGS: Clear to auscultation bilaterally. No expiratory wheeze. No accessory muscles of respiration noted. ABDOMEN: Nontender to palpation. No hepato-splenomegaly. No mass. Normal bowel sounds in all 4 quadrants. EXTREMITIES: No neurovascular compromise. No cyanosis, clubbing or edema. No abnormal limb length. ENDOCRINE: No purple striae, kuo faces or buffalo hump. NEURO: Grossly intact with no evidence of impairment. SKIN: No lesion, rash or bruising. DIAGNOSTICS: EKG: Not indicated due to non-vascular and low risk of event(age <65 without cardiac risk) RISK ASSESSMENT: Cardiovascular Risk: -Patient is able to perform ADL's without assistance and able to walk up a flight of stairs without chest pain. -The patient does not have chest pain at rest and with exertion . -Patient does not have a history of congestive heart failure. -The patient does not have a history of stroke and does not havea history of valvular disease. Cardiovascular risk analysis - none Revised cardiac risk index: 0 point, class 1 and risk of 0.4% of major cardiac event Pulmonary Risk: -In terms of risk factors for pulmonary complication, the patient has no risk factors. Perioperative Complications: -The patient does not have a history of bleeding or clotting problems in the past. -The patient has not had complications from surgeries -The patient does not have a family history of any anesthesia or surgical complications. IMPRESSION: Reason for surgery/procedure: Kidney Stone The proposed surgical procedure is considered LOW(endoscopic, cataract and breast surgery) risk. For above listed surgery and anesthesia: Patient is at LOW(otherwise) risk for surgery/procedure and perioperative/procedure complications. RECOMMENDATIONS: Fasting: Must be NPO for 8 hours preoperatively. Preop Plan: Approval given to proceed with proposed procedure, without further diagnostic evaluation. Medications: Patient should take their regular medications the morning of surgery unless otherwise instructed. Hold aspirin 7 days prior to surgery. Prabhu Urrutia M.D. Please contact our office if there are any further questions or information required about this patient. documented in this encounter Plan of Treatment Not on filedocumented as of this encounter Visit Diagnoses Diagnosis Gastric Bypass Status Post Stone Kidney And Ureteral documented in this encounter Care Teams Concessionist Relationship Specialty Start Date End Date Matheus Feliciano M.B.B.S., M.D. PCP - General Family Medicine 01/09/[address] [place] [address] [place] [address] documented as of this encounter
--- OUTSIDE RECORDS SUMMARY | 2022-04-10 14:53 | XMS_ITS | Encounter Summary ---
:1980 Author Organization [facility] Address [address] [place] [address] Care Team Providers Name Role Phone Matheus Feliciano M.D. Primary Care Provider [phone] Encounter Details Date Type Department Care Team Description 02/07/2021 Clinical Communication Department of Urology Rebel Bernstein in [place], [place] M.D. [address] [place] [address] [place], [place] [phone] Social History Tobacco Use Types Packs/Day Years [...] or relatives? How often do you attend scientologist or Never 2021 quaker services? 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 - 02/07/2021 1:34 PM CDT Patients , Amador contacted. Per Dr Bernstein if pain and nausea do not improve patient should be seen in the emergency room. Verbalized understanding. Telephone Encounter - Goldie Aguillon - 02/07/2021 11:58 AM CDT Patient is experiencing a lot of pain in her left side abdomen, the pain is causing nausea and the hydrocodone is not keeping the pain at bay. Please advise [phone] Amador, documented in this encounter Plan of Treatment Not on filedocumented as of this encounter Visit Diagnoses Not on filedocumented in this encounter Care Teams Pulp Bleacher Relationship Specialty Start Date End Date Matheus Feliciano M.B.B.S., MDonald. PCP - General Family Medicine 01/09/[address] [place] [address] [place] Velez [phone] documented as of this encounter
--- OUTSIDE RECORDS SUMMARY | 2022-04-10 14:53 | XMS_ITS | Encounter Summary ---
:1980 Author Organization [facility] Address [address] [place] [address] Care Team Providers Name Role Phone Matheus Feliciano M.D. Primary Care Provider [phone] Reason for Visit Reason Comments Rx Prior Authorization [place] DENIED AJOVY 225 MG/1.5 M L Encounter Details Date Type Department Care Team Description 02/05/2021 Clinical Communication Department of [facility] in [place] Mccullough M.D. Authorization (EDWARD Kula, [address] [facility] DENIED AJOVY [address] [place], [place] MG/1.5 ML ) [address] [facility] [address] [place], [place] [phone] [address] (Work) [phone] Social History Tobacco Use Types Packs/Day Years [...] or relatives? How often do you attend mu-ism or Never 2021 orthodoxy services? 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 To view the denial letter: 1. Go [...] on filedocumented in this encounter Care Teams Painter Barrel Relationship Specialty Start Date End Date Matheus Feliciano M.B.B.S., M.D. PCP - General Family Medicine 01/09/[address] [place] [address] [place] [address] documented as of this encounter
--- OUTSIDE RECORDS SUMMARY | 2022-04-10 14:53 | XMS_ITS | Encounter Summary ---
:1980 Author Organization [facility] Address [address] [place] [address] Care Team Providers Name Role Phone Matheus Feliciano M.D. Primary Care Provider [phone] Reason for Visit Reason Comments Follow-up Encounter Details Date Type Department Care Team Description 02/09/2021 Nurse Triage Department of [facility], Jose M Lundy, Follow-up Medicine, [facility], [facility] in [address] [phone] Social History Tobacco Use Types Packs/Day Years [...] or relatives? How often do you attend pentecostalism or Never 2021 jain services? 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 female calling regarding Follow-up. Assessment Concern: calling in for patient and would like to speak to oncall provider as patient ran out of hydrocodone and is requesting a refill. Per a clinical communication note on 02/07/21, per Dr. Bernstein, if pain and nausea do not improve patient should be seen in the emergency room. This information was given to patient's on 02/07/21. Re-iterated the message. Patient was inquiring about if there is a way to talk with Dr. Bernstein. C ontacted switchboard who confirmed that there was no oncall provider for urology in [place]. Again re-iterated that patient go to ED as per recommendations from Dr. Bernstein. Of note, reports that the bleeding is significantly less and no longer bright red blood thanwhat it was when they had called in yesterday about bright red blood. The recommended disposition is No disposition on file.. documented in this encounter Plan of Treatment Not on filedocumented as of this encounter Visit Diagnoses Not on filedocumented in this encounter Care Teams Rfid Engineer Relationship Specialty Start Date End Date Matheus Feliciano M.B.B.S., M.D. PCP - General Family Medicine 01/09/[address] [place] [address] [place] [phone] documented as of this encounter
--- OUTSIDE RECORDS SUMMARY | 2022-04-10 14:53 | XMS_ITS | Encounter Summary ---
:1980 Author Organization [facility] Address [address] [place] [address] Care Team Providers Name Role Phone Matheus Feliciano M.D. Primary Care Provider [phone] Encounter Details Date Type Department Care Team Description 01/26/2021 Orders Only [facility] - Matheus Lezama I., [address] , [facility] [address] [place] [address] [place] [address] [place] [address] (Wo rk) Social History Tobacco Use [...] or relatives? How often do you attend mosque or Never 2021 mormonism services? 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 PCP - General Family Medicine 01/09/[address] [place] [address] [place] Velez [phone] documented as of this encounter
--- OUTSIDE RECORDS SUMMARY | 2022-04-10 14:53 | XMS_ITS | Encounter Summary ---
:[address] [facility] Address [address] [place] [address] Care Team Providers Name Role Phone Matheus Feliciano M.D. Primary Care Provider [phone] Encounter Details Date Type Department Care Team Description 01/24/2021 Orders Only [facility] Pharmacy - Matheus Lezama I., [address] , [facility] [address] [place] [address] [place] [address] [place] [address] (Wo rk) Social History Tobacco [...] do you attend restorationism or Never 2021 shinto services? 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 PCP - General Family Medicine 01/09/[address] [place] [address] PANK[place] Velez [phone] documented as of this encounter
--- OUTSIDE RECORDS SUMMARY | 2022-04-10 14:53 | XMS_ITS | Encounter Summary ---
:1980 Author Organization [facility] Address [address] [place] [address] Care Team Providers Name Role Phone Matheus Feliciano M.D. Primary Care Provider [phone] Reason for Referral Outpatient (Routine) - Closed Specialty Diagnoses / Procedures Referred By Contact Refer red To Contact Nephrology and Diagnoses Stone Kidney [facility] PAT, RRafalN. [address] [address] Referral ID Status Reason Start Date Expiration Date Visits Requ ested Visits Authorized [id number] Closed 02/14/2021 02/14/2022 1 1 Reason for Visit Reason Comments Post-op Outpatient (Routine) - Closed Specialty Diagnoses / Procedures Referred By Contact Refer red To Contact Urology Sushila Mcneill APRN, R.N. [facility] Region [address] [address] Referral ID Status Reason Start Date Expiration Date Visits Requ ested Visits Authorized [id number] Closed 01/23/2021 01/23/2022 1 1 Encounter Details Date Type Department Care Team Description 02/14/2021 Office Visit Department of Sushila Mcneill Stone Kidn ey And Ureteral (Primary Dx); [place] APRN, R. N. Follow Up Examination Postoperative Visi t [place] [address] [place] [phone] Social History Tobacco Use Types Packs/Day [...] or relatives? How often do you attend zoroastrian or Never 2021 moravian services? 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 - 02/14/2021 10:30 AM CDT SUBJECTIVE CHIEF COMPLAINT/REASON FOR VISIT Chief Complaint Patient presents with ??? Post-op HISTORY OF PRESENT ILLNESS Gricelda is a 40 year old female here with her and daughter for a one week post-operative visitafter ureteroscopy with laser lithotripsy, stone basket, stent placement in the OR with Dr. Romero February 06, 2021. She had quite a bit of stent pain and some hematuria after procedure. [facility] was [facility] at [facility] in [place] on February 09, [address] Stone protocol was performed and showed no left ureteral stone, stent in good position, 2 mm non-obstructive stone in right kidney. Urine did not show any signs of infection. She removed her stent on February 10, 2021, she states this was removed in its entirety. She states that she still has 6/10 pain in the left abd omen and low back. She is not longer taking Topamax which can contribute to stone formation. She does have family history of stones and history of cirilo-en-y gastric bypass. The following portions of the patient's history were reviewed and updated as appropriate: allergies,current medications, family history, medical history, social history, surgical history and problem list. REVIEW OF SYSTEMS Gastrointestinal: Positive for abdominal (belly) pain or cramping. Genitourinary: Pain with urination with stent in place. OBJECTIVE Vitals: 02/14/21 1041 Pulse: 71 Temp: 36.6 ??C SpO2: 99% TempSrc: Temporal PHYSICAL EXAM Vitals and nursing note reviewed. General: Well developed, well nourished, well groomed female in no acute distress. Neurological: Alert, cooperative, oriented x3. Appropriate mood and affect. Head: Normal appearance, no abnormalities, normocephalic. Neck: Symmetrical and supple, trachea is midline. Cardiac: regular rate, regular rhythm Respiratory: Respirations are unlabored with normal respiratory rate and normal respiratory movements. Normal chest wall expansion without use of accessory muscles. Abdomen: Soft, non-tender, non-distended Extremities: Warm, without edema or ulcerations. ASSESSMENT / PLAN #1 Stone Kidney And Ureteral #2 Post-operative Visit Results of stone analysis are not available at this time, we will contact her with results. Recommend going forward with metabolic assessment with Nephrology Department. She had CMP completed on February 09, 2021, results are available in Care Everywhere. Orders placed for uric acid and phosphorus labs, 24hour urine super saturation. She understands that it takes at least 5 days to get results back from this, she should plan appropriately so that this is completed at least 1 week prior to her nephrologyconsultation. Orders placed for consultation with Nephrology Department stone prevention at [facility]. All questions are answered today. Signed by: Sushila Mcneill APRN, C.N.P. 02/14/2021 1:42 PM CDT documented in this encounter Plan of Treatment Scheduled Referrals Name Type Priority Associated Order Schedule Diagnoses Nephrology and Outpatient Routine Stone Kidney And Expected: Hypertension - Referral Ureteral 02/14/2021 Nephrolithiasis / kidney (Ap proximate), stone consult (clinic) Expir es: 02/15/2024 documented as of this encounter Results Uric Acid (02/14/2021 12:19 [...] Organization Address City/State/ZIP Code Phon e Number [facility]- [address] [place] [address] [facility] [place], [place] [address] [place] [address] Phosphorus Inorganic (02/14/2021 12:19 PM CDT) athologist Signature Phosphorus 3.5 2.5 - 4.5 02/14/2021 AUST (Inorganic), P mg/dL 4:09 PM CDT Specimen Anatomical Collection Method Collection Time Receive d Time (Source) Location / / Volume Laterality Blood (Blood, 02/14/2021 12:19 02/14/2021 3:49 Venous) PM CDT PM CDT Sushila Mcneill APRN RRafalNRafal LAB BLOOD ADD-ON Performing Organization Address City/State/ZIP Code Phon e Number [facility]- [address] [place] [address] [facility] [place], [place] [address] [place] [address] [address] [facility] documented in this encounter Visit Diagnoses Diagnosis Stone Kidney And Ureteral - Primary Follow Up Examination Postoperative Visi t documented in this encounter Care Teams Cement Crusher Operator Relationship Specialty Start Date End Date Matheus Feliciano M.B.B.S., MDonald. PCP - General Family Medicine 01/09/[address] [place] [address] [place] [address] documented as of this encounter
--- OUTSIDE RECORDS SUMMARY | 2022-04-10 14:53 | XMS_ITS | Encounter Summary ---
:1980 Author Organization [facility] Address [address] [place] [address] Care Team Providers Name Role Phone Matheus Feliciano M.D. Primary Care Provider [phone] Encounter Details Date Type Department Care Team Description 02/05/2021 Hospital Encounter Department of Car Joel Surge ry Bariatric Status Post; Laboratory Medicine M.DRafal Postsurgical Malabsorption Not Elsewhere Classified (HCC) in [address], [facility] [address] [place] [address] [place], [place] [phone] (Work) [phone] Social History Tobacco Use Types Packs/Day Years [...] do you attend cheondoism or Never 2021 mandaeism services? 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 acetaminophen (TYLENOL) Take 650 mg [...] Name Priority Date/Time Associated Diagnosis Comme nts IRON AND TOT Routine 02/05/2021 1:19 PM Surgery Bariatric Resu lts for this IRON-BINDING CDT Status Post procedure are in CAPACITY, S/P Postsurgical the results Malabsorption Not section. Elsewhere Classified ([facility]) VITAMIN A, S Routine 02/05/2021 1:19 PM Surgery Bariatric Resu lts for this CDT Status Post procedure are in Postsurgical the results Malabsorption Not section. Elsewhere Classified ([facility]) 25-HYDROXYVITAMIN D2 Routine 02/05/2021 1:19 PM Surgery Bariat lorrie Results for this AND D3, S CDT Status Post procedure are in Postsurgical the results Malabsorption Not section. Elsewhere Classified ([facility]) PARATHYROID HORMONE Routine 02/05/2021 1:19 PM Surgery Bariatr ic Results for this (PTH), S CDT Status Post procedure are in Postsurgical the results Malabsorption Not section. Elsewhere Classified ([facility]) FERRITIN, S Routine 02/05/2021 1:19 PM Surgery Bariatric Resu lts for this CDT Status Post procedure are in Postsurgical the results Malabsorption Not section. Elsewhere Classified (HCC) VITAMIN B12 ASSAY, S Routine 02/05/2021 1:19 PM Surgery Bariat lorrie Results for this CDT Status Post procedure are in Postsurgical the results Malabsorption Not section. Elsewhere Classified (HCC) documented in this encounter Results 25-Hydroxyvitamin D2 and D3 (02/05/2021 1:19 PM CDT) athologist Signature 25-Hydroxy D2 <4.0 ng/mL 02/07/2021 [facility]SC 11:53 AM CDT 25-Hydroxy D3 30 ng/mL 02/07/2021 [facility]SC 11:53 AM CDT 25-Hydroxy D 30 ng/mL 02/07/2021 [facility] Total 11:53 AM CDT Comment: ----REFERENCE VALUE---- 25-HYDROXY D TOTAL (D2+D3) Optimum level s in the healthy population are 20-50, patients with bone disease may benefit from higher levels within this r elsie. ----ADDITIONAL INFORMATION---- This test was developed and its performa nce characteristics determined by [facility] in a manner consistent with CLIA requirements. This test has not been cleared or approved by the U.[place]. Krishna d and Drug Administration. Specimen Anatomical Collection Method Collection Time Receive d Time (Source) Location / / Volume Laterality Blood (Blood, 02/05/2021 1:19 PM 02/07/20 21 8:07 Venous) CDT AM CDT Car Joel M.D. LAB BLOOD ADD-ON Performing Organization Address City/State/ZIP Code Phon e Number [facility] [address] [place] [address] [facility] [place] [address] Laboratory Medicine and Pathology [address] [place] Vitamin A Level (02/05/2021 1:19 PM CDT) athologist Signature Vitamin A 33.8 32.5 - 78.0 02/07/2021 SDSC mcg/dL 10:08 AM CDT Comment: ----ADDITIONAL INFORMATION---- This test was developed and its performa nce characteristics determined by [facility] in a manner consistent with CLIA requirements. This test has not been cleared or approved by the U.[place]. Krish[place] d and Drug Administration. Specimen Anatomical Collection Method Collection Time Receive d Time (Source) Location / / Volume Laterality Blood (Blood, 02/05/2021 1:19 PM 02/07/20 21 5:39 Venous) CDT PM CDT Car Joel M.D. LAB BLOOD NON ADD-ON Performing Organization Address City/[facility]/ZIP Code Phon e Number [facility] [address] [place], [place] [address] [place] [address] [place] [address] Laboratory Medicine and Pathology [address] [place] Vitamin B12 Assay (02/05/2021 1:19 PM CDT) P athologist Signature Vitamin B12 1001 490 - 1242 02/05/2021 AUST Assay, S ng/L 10:10 PM CDT Comment: Biotin has been identified by the kayley granger as a potential interfering substance. ??Higher concentr ations of biotin may be found in multivitamins, hair/nail supple ments, and workout supplements. ??If the result does not ma tch clinical observations, repeat testing after patient refrains fr om the use of supplements for at least 12 hours. Specimen Anatomical Collection Method Collection Time Receive d Time (Source) Location / / Volume Laterality Blood (Blood, 02/05/2021 1:19 PM 02/06/20 21 9:32 Venous) CDT PM CDT Car Joel M.D. LAB BLOOD ADD-ON Performing Organization Address City/[facility]/ZIP Code Phon e Number [facility]- [address] [place] [address] [facility] [place] [address] [facility] [address] Parathyroid Hormone (PTH) (02/05/2021 1:19 PM CDT) P athologist Signature Parathyroid 30 15 - 65 02/05/2021 AUST Hormone (PTH), S pg/mL 10:10 PM CDT Comment: Biotin has been identified by the kayley granger as a potential interfering substance. ??Higher concentr ations of biotin may be found in multivitamins, hair/nail supple ments, and workout supplements. ??If the result does not ma tch clinical observations, repeat testing after patient refrains fr om the use of supplements for at least 12 hours. Specimen Anatomical Collection Method Collection Time Receive d Time (Source) Location / / Volume Laterality Blood (Blood, 02/05/2021 1:19 PM 02/06/20 21 9:32 Venous) CDT PM CDT Car Joel M.D. LAB BLOOD ADD-ON Performing Organization Address City/[facility] Phon e Number [facility]- [address] [place] [phone] [facility] - [address] (ABNORMAL) Iron and Total Iron-Binding Capacity (02/05/2021 1:19 PM CDT) athologist Signature Iron 69 35 - 145 02/05/2021 AUST mcg/dL 9:53 PM CDT Total Iron 227 (L) 250 - 400 02/05/2021 [facility]UST Binding mcg/dL 9:53 PM CDT Capacity Percent 30 14 - 50 % 02/05/2021 AUST Saturation 9:53 PM CDT Specimen Anatomical Collection Method Collection Time Receive d Time (Source) Location / / Volume Laterality Blood (Blood, 02/05/2021 1:19 PM 02/06/20 21 9:32 Venous) CDT PM CDT Car Joel M.D. LAB BLOOD ADD-ON Performing Organization Address [facility] Phon e Number [facility]- [address] [place] [address] [facility] - [address] (ABNORMAL) Ferritin (02/05/2021 1:19 PM CDT) athologist Signature Ferritin, S 188 (H) 6 - 175 02/05/2021 OWAT mcg/L 4:26 PM CDT Comment: Biotin has been identified by the kayley granger as a potential interfering substance. ??Higher concentr ations of biotin may be found in multivitamins, hair/nail supple ments, and workout supplements. ??If the result does not ma tch clinical observations, repeat testing after patient refrains fr om the use of supplements for at least 12 hours. Specimen Anatomical Collection Method Collection Time Receive d Time (Source) Location / / Volume Laterality Blood (Blood, 02/05/2021 1:19 PM 02/06/20 3:38 Venous) CDT PM CDT Car Joel M.D. LAB BLOOD ADD-ON Performing Organization Address City/State/ZIP Code Phon e Number [facility]- [address] [place] [address] [place] [address] System in [place] [address] documented in this encounter Visit Diagnoses Diagnosis Surgery Bariatric Status Post Postsurgical Malabsorption Not Elsewhere Classified documented in this encounter Care Teams Manager Group Relationship Specialty Start Date End Date Matheus Feliciano M.B.B.S., M.D. PCP - General Family Medicine 01/09/[address] [place] [phone] documented as of this encounter
--- OUTSIDE RECORDS SUMMARY | 2022-04-10 14:53 | XMS_ITS | Encounter Summary ---
:1980 Author Organization [facility] Address [address] [place] [address] Care Team Providers Name Role Phone Matheus Feliciano M.D. Primary Care Provider [phone] Reason for Visit Reason Comments Med Refill Encounter Details Date Type Department Care Team Description 03/28/2021 Refill Department of Family Medicine, Matheus Feliciano I., Med Refill [facility], in [place], [place] [address] [facility] [address] [place] [address] [place] [address] [phone] Social History Tobacco Use Types Packs/Day Years [...] do you attend zoroastrian or Never 2021 druze services? 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 PCP - General Family Medicine 01/09/[address] [place] [address] [place] [phone] documented as of this encounter
--- OUTSIDE RECORDS SUMMARY | 2022-04-10 14:53 | XMS_ITS | Encounter Summary ---
:[address] [facility] Address [address] [place] [address] Care Team Providers Name Role Phone Matheus Feliciano M.D. Primary Care Provider [phone] Encounter Details Date Type Department Care Team Description 02/08/2021 Clinical Communication Department of Matheus [facility], Prabhu Parmar, Clinic, in [place] [address] [address] [phone] Social History Tobacco Use Types Packs/Day Years [...] do you attend zoroastrian or Never 2021 orthodox services? 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 - 02/12/2021 6:26 AM CDT Patient was seen in the ED on 02/09 Telephone Encounter - Lin Holman R.N. - 02/08/2021 1:53 PM CDT Patient called and stating that she has bright red blood in the toilet every time she uses the bathroom. Also pain in left abd/back 02/16 all the time, which is making her nauseous. Please advise. Telephone Encounter - Anastasia [place] - 02/08/2021 1:16 PM CDT Reason for Communication: Patient called in and stated that she is still bleeding when she uses the restroom. Patient is concerned since she was told she shouldn't be bleeding. Please call patient back Current Can Nursing/Provider leave a detailed message?: Yes Did the patient refuse triage through Nurse line? (for symptom based concerns): Action Needed: Please call patient back Name of Medication (if relevant): documented in this encounter Plan of Treatment Not on filedocumented as of this encounter Visit Diagnoses Not on filedocumented in this encounter Care Teams Rotary Drum Tanner Relationship Specialty Start Date End Date Matheus Feliciano M.B.BRafalSRafal, Jose. PCP - General Family Medicine 01/09/[address] [place] [phone] documented as of this encounter
--- OUTSIDE RECORDS SUMMARY | 2022-04-10 14:53 | XMS_ITS | Encounter Summary ---
:1980 Author Organization [facility] Address [address] [place] [address] Care Team Providers Name Role Phone Matheus Feliciano M.D. Primary Care Provider [phone] Encounter Details Date Type Department Care Team Description 02/14/2021 Hospital Encounter Department of Sushila Mcneill Kidney And Laboratory Medicine PAT Gan R.N . Ureteral in [address] [address] [place], [place] [phone] [address] (Work) [phone] Social History Tobacco Use Types Packs/Day Years [...] do you attend gnosticism or Never 2021 taoist services? 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 PCP - General Family Medicine 01/09/[address] [place] [address] [place] [phone] documented as of this encounter
--- OUTSIDE RECORDS SUMMARY | 2022-04-10 14:53 | XMS_ITS | Encounter Summary ---
:1980 Author Organization [facility] Address [address] [place] [address] Care Team Providers Name Role Phone Matheus Feliciano M.D. Primary Care Provider [phone] Reason for Visit Reason Comments SURG DATE Encounter Details Date Type Department Care Team Description 01/23/2021 Clinical Communication Department of Urology Rebel Bernstein, SURG DATE in Yevgeniy [place] M.D. [address] [place] [address] [place], [place] [phone] Social History Tobacco Use Types Packs/Day [...] or relatives? How often do you attend jewish or Never 2021 jehovah's witness services? Do you belong to any clubs or Yes 09/02/2021 organizations such as jewish groups, unions, fraternal or athletic groups, or [...] place to sleep or slept in a detention (including now)? Education Answer Date Recorded What is the highest level of school you have completed or th e 9th grade 11/26/2020 highest degree you have received? 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 - 01/23/2021 2:28 PM CDT Noted in desk interstate planner. Telephone Encounter - Jane Mcallister - 01/23/2021 2:24 PM CDT SURGEON: DR BERNSTEIN PRE Op: 01/29/21 DR FELICIANO SURGERY DATE: 02/06/21 PROCEDURES: 1). LEFT CYSTOSCOPY, URETEROSCOPY, LASER LITHO, BASKET, STENT COVID19 Test: 02/02/21 ANESTHESIA: [facility] WILL CALL WITH ARRIVAL TIME documented in this encounter Plan of Treatment Not on filedocumented as of this encounter Visit Diagnoses Not on filedocumented in this encounter Care Teams Heel Painter Relationship Specialty Start Date End Date Matheus Feliciano M.B.BZan, MDonald. PCP - General Family Medicine 01/09/[address] [place] [address] [place] [phone] documented as of this encounter
--- OUTSIDE RECORDS SUMMARY | 2022-04-10 14:53 | XMS_ITS | Encounter Summary ---
:1980 Author Organization [facility] Address [address] [place] [address] Care Team Providers Name Role Phone Matheus Feliciano M.D. Primary Care Provider [phone] Encounter Details Date Type Department Care Team Description 01/28/2021 Orders Only [facility] Matheus Issa I., [address] [place] [address] [address] [facility] [phone] [place] [address] (Wo rk) Social History Tobacco [...] or relatives? How often do you attend restorationist or Never 2021 nondenominational services? 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 PCP - General Family Medicine 01/09/[address] [place] [address] [place] [phone] documented as of this encounter
--- OUTSIDE RECORDS SUMMARY | 2022-04-10 14:53 | XMS_ITS | Encounter Summary ---
:1980 Author Organization [facility] Address [address] [place] [address] Care Team Providers Name Role Phone Matheus Feliciano M.D. Primary Care Provider [phone] Reason for Visit Reason Comments Med Refill Encounter Details Date Type Department Care Team Description 03/01/2021 Refill Department of Family Medicine, Matheus Feliciano I., Med Refill [facility], in [place], [place] 300 [facility] 300 [place] [address] [place] [address] [phone] Social History Tobacco Use Types Packs/Day Years [...] or relatives? How often do you attend congregational or Never 2021 nondenominational services? Do you belong to any clubs or Yes 09/02/2021 organizations such as congregational groups, unions, fraternal or athletic groups, or [...] place to sleep or slept in a fpc (including now)? Education Answer Date Recorded What is the highest level of school you have completed or th e 9th grade 11/26/2020 highest degree you have received? 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 PCP - General Family Medicine 01/09/[address] [place] [address] [place] [phone] documented as of this encounter
--- OUTSIDE RECORDS SUMMARY | 2022-04-10 14:53 | XMS_ITS | Encounter Summary ---
:[address] [facility] Address [address] [place] [address] Care Team Providers Name Role Phone Matheus Feliciano M.D. Primary Care Provider [phone] Encounter Details Date Type Department Care Team Description 02/03/2021 Lab Department of Family Medicine, [place]omas Mc[place]ill [place], [place] [address] [address] [place] [address] [phone] Social History Tobacco Use Types Packs/Day Years [...] or relatives? How often do you attend moravian or Never 2021 judaism services? 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 This result does not rule out COVID-19 in the patient, as the sensitivity of the test depends o n the timing of the specimen collection and the quality of the specim en. Result should be correlated with patient's history and clinical presentat ion. ----ADDITIONAL INFORMATION---- This molecular amplification test was pe rformed using the Aptima SARS-CoV-2 assay ([employer] on the Nano Magneticss tem under emergency use authorization (EUA) by the U.S. Food and Drug Administ ration. Fact sheets for this EUA assay can be fo und at the following links: For Healthcare Providers: https://www.fd a.gov/media/012952/download For Patients: https://www.fda.gov/media/ 063377/download Specimen Anatomical Collection Method Collection Time Receive d Time (Source) Location / / Volume Laterality Varies 02/03/2021 11:50 02/03/2021 (Nasopharynx) AM CDT 11:09 PM CDT Sushila Mcneill APRN, R.N. LAB MICROBIOLOGY - GENERA L ORDERABLES Performing Organization Address City/State/ZIP Code Phon e Number [facility]- [address] [place] [address] [place] [address] System in [place] [address] [place] [address] documented in this encounter Visit Diagnoses Not on filedocumented in this encounter Additional Health Concerns Infection Onset Date Last Indicated Resolved Time COVID19 Pending 02/01/2021 02/03/2021 02/04/2021 4:50 PM CDT documented as of this encounter Care Teams Longwall Machine Operator Helper Relationship Specialty Start Date End Date Matheus Feliciano M.B.B.S., Jose. PCP - General Family Medicine 01/09/[address] [place] [address] [place] [address] documented as of this encounter
--- OUTSIDE RECORDS SUMMARY | 2022-04-10 14:53 | XMS_ITS | Encounter Summary ---
:1980 Author Organization [facility] Address [address] [place] [address] Care Team Providers Name Role Phone Matheus Feliciano M.D. Primary Care Provider [phone] Reason for Visit Reason Comments Med Refill Encounter Details Date Type Department Care Team Description 02/13/2021 Refill Department of Family Medicine, Gagan Mcpherson M.D. Med Refill [facility], in [place], [place] [address] [facility] [address] [facility] [phone] Social History Tobacco Use Types Packs/Day Years [...] or relatives? How often do you attend confucianism or Never 2021 uatsdin services? 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 PCP - General Family Medicine 01/09/[address] [place] [address] [place] [address] documented as of this encounter
--- OUTSIDE RECORDS SUMMARY | 2022-04-10 14:53 | XMS_ITS | Encounter Summary ---
:1980 Author Organization [facility] Address [address] [place] [address] Care Team Providers Name Role Phone Matheus Feliciano M.D. Primary Care Provider [phone] Encounter Details Date Type Department Care Team Description 02/04/2021 Clinical Department of Kobi Costa Otorhinolaryngology in [place], [place] 2199 [place] [address] [place] [phone] Social History Tobacco Use Types Packs/Day Years [...] do you attend alevism or Never 2021 confucianism services? 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 Miscellaneous Notes Telephone Encounter - Liu Taylor - 02/04/2021 4:49 PM CDT What is the purpose of the call?: Standard Appointment Process Standard Appointment Process Have you tested positive for COVID-19 in the last 20 days OR do you have a pending COVID-19 test because you had symptoms?: No, neither apply What region is the appointment being requested?: Less than 14 days [place] In the past 14 days are any of the following symptoms new to you and not related to an existing health condition?: No symptoms noted In the past 14 days have you had close contact* with a person who has a LABORATORY CONFIRMED case ofCOVID-19?: No exposure noted, follow appt process (End Screening) Testing Recommendation Endpoint Is testing recommended? : Not recommended to test Plan: Endpoint recommendation: Followed regional OTG *Reminder if sending patient for testing in [facility] or [facility], route encounter to the correct testing pool. documented in this encounter Plan of Treatment Not on filedocumented as of this encounter Visit Diagnoses Not on filedocumented in this encounter Additional Health Concerns Infection Onset Date Last Indicated Resolved Time COVID19 Pending 02/01/2021 02/03/2021 02/04/2021 4:50 PM CDT documented as of this encounter Care Teams Principal Planner Relationship Specialty Start Date End Date Matheus Feliciano M.B.B.S., M.D. PCP - General Family Medicine 01/09/[address] [place] [address] [place] [address] documented as of this encounter
--- OUTSIDE RECORDS SUMMARY | 2022-04-10 14:53 | XMS_ITS | Encounter Summary ---
:[address] [facility] Address [address] [place] [address] Care Team Providers Name Role Phone Matheus Feliciano M.D. Primary Care Provider [phone] Encounter Details Date Type Department Care Team Description 02/21/2021 Hospital Encounter Department of Matheus Feliciano [facility] hyroidism Laboratory Medicine in [place], [place] [address] [address] [place] [address] [phone] Social History Tobacco Use Types Packs/Day Years [...] or relatives? How often do you attend taoism or Never 2021 amish services? 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 documented as of this encounter Miscellaneous Notes Result Encounter Note - Matheus Feliciano M.B.B.S., M.D. - 02/21/2021 6:48 PM CDT Results showed no significant abnormalities. documented in this encounter Plan of Treatment Not on filedocumented as of this encounter Procedures Procedure Name Priority Date/Time Associated Diagnosis Comme nts THYROID-STIMULATING Routine 02/21/2021 1:20 PM Hypothyroidism Results for this HORMONE-SENSITIVE CDT procedure are in (S-TSH) the results section. documented in this encounter Results S-TSH (Thyroid-Stimulating Hormone - Sensitive) (02/21/2021 1:20 PM CDT) P athologist Signature TSH, Sensitive 3.1 0.3 - 4.2 02/21/2021 OWAT mIU/L 2:12 PM CDT Specimen Anatomical Collection Method Collection Time Receive d Time (Source) Location / / Volume Laterality Blood (Blood, 02/21/2021 1:20 PM 02/22/20 21 1:29 Venous) CDT PM CDT Matheus Pelletier M.D. LAB BLOOD ADD-ON Performing Organization Address City/State/ZIP Code Phon e Number [facility]- [address] [place] [address] [facility] [place] [address] System in [place] [address] documented in this encounter Visit Diagnoses Diagnosis Hypothyroidism documented in this encounter Care Teams Vice President Of Software Development Relationship Specialty Start Date End Date Matheus Feliciano M.B.B.S., M.D. PCP - General Family Medicine 01/09/[address] [place] [phone] documented as of this encounter
--- OUTSIDE RECORDS SUMMARY | 2022-04-10 14:53 | XMS_ITS | Encounter Summary ---
:1980 Author Organization [facility] Address [address] [place] [address] Care Team Providers Name Role Phone Matheus Feliciano M.D. Primary Care Provider [phone] Reason for Visit Reason Comments Results Encounter Details Date Type Department Care Team Description 02/22/2021 Clinical Communication Department of [facility] Matheus Feliciano [facility] Medicine, Prabhu Parmar, Clinic, in [place] 300 [facility] 300 [place] [address] [phone] Social History Tobacco Use Types Packs/Day Years [...] do you attend hoahaoism or Never 2021 mandaeism services? 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 - 02/25/2021 8:00 AM CDT Noted. Telephone Encounter - Say Acosta - 02/22/2021 1:41 PM CDT Patient calling back Results given not other questions at this time Telephone Encounter - Meryl Flowers CCMA - 02/22/2021 8:45 AM CDT Images from the original note were not included. Left message for patient to return call to clinic. Does the patient need to speak to nursing? N/A Action needed: please inform the patient of the following Matheus Feliciano M.B.B.S., MBob 02/21/2021 ??6:48 PM CDT Results showed no significant abnormalities. documented in this encounter Plan of Treatment Not on filedocumented as of this encounter Visit Diagnoses Not on filedocumented in this encounter Care Teams Front Desk Officer Relationship Specialty Start Date End Date Matheus Feliciano M.B.B.S., M.D. PCP - General Family Medicine 01/09/[address] [place] [address] [place] [address] documented as of this encounter
--- OUTSIDE RECORDS SUMMARY | 2022-04-10 14:53 | XMS_ITS | Encounter Summary ---
:1980 Author Organization [facility] Address [address] [place] [address] Care Team Providers Name Role Phone Matheus Feliciano M.D. Primary Care Provider [phone] Reason for Visit Reason Comments medication options Encounter Details Date Type Department Care Team Description 02/04/2021 Clinical Communication Department of Sade, ruma cation claire Neurology in Donis Mccullough M.D. [place], [address] [place] [address] [place] [address] [place], [place] [phone] (Work) [phone] Social History Tobacco Use Types Packs/Day Years [...] or relatives? How often do you attend jain or Never 2021 confucianist services? 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 - 02/05/2021 3:49 PM CDT Portal message sent and will ask desk to send MIDAS survey via portal as well. Telephone Encounter - Donis Stuart M.D. - 02/05/2021 2:39 PM CDT Images from the original note were not included. Got the denial letter today as well. Helpful to understand in this case why it was denied. There were a couple that are easily remedied and are a little ticky- tack (indicating the number of hours she has a migraine with or without taking something for it as at least one headache per month needs to last more than 12 hours, and not having a documented baseline score on a measure like MIDAS - neither ofthese things are often specifically required usually). There is one thing that is not gotten around with simple documentation and appeal, and that is different classes of drug taken. She needs to be on one more drug that is either a beta-rishi or an antidepressant at a reasonable dose for at least 4 weeks, so that's not something we can avoid. She's on a couple of medications already (Buspar and escitalopram) that would make adding another antidepressant serotonin drug potentially problematic, so I'd recommend starting a low-dose beta rishi. They don't count the gabapentin she's on, unfortunately. Can try propranolol, initially just 20 mg twice daily. Take that for 2 weeks, then if tolerated can increase to 40 mg twice daily and observe for at least 8 weeks to see how that impacts headaches. Continue to keep journal. Now also count number hours for headaches, or at least evelyne down when one lasts 12 hours or more. If the propranolol is ineffective, then we can take that information and re-prescribe the Ajovy without issue. I've gone ahead and prescribed the propranolol (side effects of fatigue, lightheadedness when standing quickly, and having a hard time with exercise [because it keeps the heart rate low]). If lightheadedness is too much of a problem because blood pressure is already low then we can stop it and re-prescribe Ajovy indicating that propranolol was not tolerated due to orthostatic symptoms, and the it is not reasonably safe to prescribe an antidepressant for headaches given the other medications she's on when there are other safer options (Ajovy) available. Please see if we can also send her a MIDAS survey electronically. I think the headache division usesthem regularly. For my future reference: Telephone Encounter - Cele Mcghee - 02/04/2021 3:32 PM CDT Patient's Ajovy has been denied. We have not yet received the denial letter to see if we can appeal this. The patient is looking for some options for treatment in the meantime. documented in this encounter Plan of Treatment Not on filedocumented as of this encounter Visit Diagnoses Diagnosis Migraine With Aura Without Headache - Pr imary documented in this encounter Additional Health Concerns Infection Onset Date Last Indicated Resolved Time COVID19 Pending 02/01/2021 02/03/2021 02/04/2021 4:50 PM CDT documented as of this encounter Care Teams Cobol Programmer Relationship Specialty Start Date End Date Matheus Feliciano M.B.B.S., M.D. PCP - General Family Medicine 01/09/[address] [place] [address] [place], [place] [phone] documented as of this encounter
--- OUTSIDE RECORDS SUMMARY | 2022-04-10 14:53 | XMS_ITS | Encounter Summary ---
:1980 Author Organization [facility] Address [address] [place] [address] Care Team Providers Name Role Phone Matheus Feliciano M.D. Primary Care Provider [phone] Encounter Details Date Type Department Care Team Description 02/01/2021 Orders Only [facility] Matheus Issa I., [address] [place] [address] [facility] [phone] [place] [address] (Wo rk) Social History Tobacco [...] do you attend alevism or Never 2021 jewish services? 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 PCP - General Family Medicine 01/09/[address] [place] [address] [place] V[place]z [phone] documented as of this encounter
--- OUTSIDE RECORDS SUMMARY | 2022-04-10 14:54 | XMS_ITS | Encounter Summary ---
:1980 Author Organization [facility] Address [address] [place] [address] Care Team Providers Name Role Phone Matheus Feliciano M.D. Primary Care Provider [phone] Reason for Visit Reason Comments Follow-up ER visit 01/09 Other constipation Appointment Request (Routine) - Closed Specialty Diagnoses / Procedures Referred By Contact Refer red To Contact Family Medicine Referral ID Status Reason Start Date Expiration Date Visits Requ ested Visits Authorized [id number] Closed 01/10/2021 01/10/2022 1 1 Encounter Details Date Type Department Care Team Description 01/16/2021 Office Visit Department of Family Altrichter, Epileps y Seizure Not Intractable Without Status Epilepticus (HCC) (Primary Dx); Medicine, Krysta Farah M.D. Pancreatitis Personal History; Clinic, in [place] [address] [address]LLOW[address] Nephrolithiasis; [place], [place] Gastric Bypass Status Post; [address] [phone] Leukocytosis [place], [place] [phone] (Work) [phone] Social History Tobacco Use Types Packs/Day Years [...] or relatives? How often do you attend denominational or Never 2021 taoism services? Do you belong to any clubs or Yes 09/02/2021 organizations such as denominational groups, unions, fraternal or athletic groups, or [...] Date Recorded Female 09/01/2021 7:35 PM DIRECTOR FAMILY documented as of this encounter Last Filed Vital Signs Vital Sign Reading Time Taken Comments Blood Pressure 111/71 01/16/2021 9:45 AM CDT Pulse 85 01/16/2021 9:45 AM CDT Temperature 36.3 ??C (97.3 ??F) 01/16/2021 9:45 AM CDT Respiratory Rate - - Oxygen Saturation 100% 01/16/2021 9:45 AM CDT Inhaled Oxygen Concentration - - Weight 63.3 kg (139 lb 8.8 oz) 01/16/2021 9:45 AM CDT Height - - Body Mass Index 23.54 09/14/2020 11:34 AM DIRECTOR FAMILY documented in this encounter Progress Gagan Irvin M.D. - 01/16/2021 10:00 AM CDT SUBJECTIVE CHIEF COMPLAINT / REASON FOR VISIT Patient presents for evaluation of Follow-up (ER visit 01/09) and Other (constipation). HISTORY OF PRESENT ILLNESS Gricelda Lamcalf is a 40 y.o. female who is here in follow-up of recent emergency department visit at [address] 1. Seizure disorder Patient was in her usual state of reasonable health on January 09 when she awakened to find herself with left leg twitching, right facial twitching and right eye watering. She has known seizure disorderbut it had been a number of months since she last was symptomatic. She alerted her and they made arrangements to proceed to the emergency department for evaluation. The seizures spontaneously stopped. She subsequently continued the current dose of seizure medications and has a follow-up appointment with Dr. Stuart next week. 2. Chest, Abdominal and left flank pain. That same night as her was assessing her before taking her to the emergency department she felt like she could not swallow and she had significant pain in the upper abdomen and the left flank. Her symptoms did persist as she arrived in the emergency department. She subsequently had laboratory studies which demonstrated an elevated lipase at 178.6, leukocytes were elevated at 11.1 with elevated neutrophils. She had a chest x-ray which was normal. An electrocardiogram demonstrated normal sinusrhythm without ischemic changes. The CT of the abdomen demonstrated a 5 mm calculus at the ureterovesical junction on the left only slight dilation of the ureter just proximal to the calculus, there was no hydronephrosis. There was a 2 mm nonobstructive intrarenal calculus on the right. No right ureteral calculi she had prior cholecystectomy, appendectomy and changes consistent with her prior gastric bypass. Trace pelvic free fluid.No localized collection. It should be noted patient has had a hysterectomy. There was no evidence for significant inflammation in the pancreas no evidence for a pancreatic mass or pseudocyst. She had some prominence of the biliary system may relate to her post cholecystectomy changes. She had focal fatty infiltrate within the left hepatic lobe. The subsequently released patient to go home with a soft diet and close follow- up. It is now been a week. She continues to have fullness in the left upper abdomen and the left flank. She does not feel that she can take a deep breath because of the fullness in her abdomen. This is uncomfortable. She also describes constipation where he was severe enough that she needed to use digital removal. When she last did that procedure she cause bleeding and pain in the perianal area. Had bleeding the last couple of days no bleeding today. It should be noted that she has had both COVID vaccines. Current Allergies and medications reviewed. REVIEW OF SYSTEMS No change in weight. No other constitutional symptoms. No headache or visual symptoms. No ENT complaints. Patient denies dysphagia. No shortness of breath, no chest pain, no palpitations, paroxysmal nocturnal dyspnea or orthopnea. No nausea, vomiting, constipation, or diarrhea. No genitourinary, musculoskeletal, skin, or neurologic complaints except per HPI. OBJECTIVE PHYSICAL EXAMINATION Vital signs: Blood pressure 111/71, pulse 85, temperature 36.3 ??C, temperature source Temporal, weight 63.3 kg, SpO2 100 %, currently . General: Alert female who is in no acute distress. HEENT: Normal TMs. Nose and throat clear. Neck: Supple. Lungs: Clear. She has good air movement. I do not hear any crackles or rhonchi. Heart: Regular rate and rhythm, no murmur. Abdomen: Benign. There is mild tenderness in the left upper abdomen I do not appreciate any splenomegaly she is tender over the lateral left abdomen and in the left CVA. Mild percussion tenderness. With a tie worker present we did a vaginal and rectal exam. With palpation of the posterior wall of the vagina there is no defect or were fullness posteriorly. There is no irritation of the overlying mucosa. There was only mild tenderness posteriorly. On anal exam there is no perianal fissures. No external hemorrhoids. With digital it rectal exam she had discomfort anteriorly but this was not severe. There is no discrete mass. There was no hematochezia. Musculoskeletal: Normal musculoskeletal exam. Neurologic: Screening neurologic exam is intact. 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 Stuart as scheduled next week. #2 Pancreatitis Personal History There was no CT evidence of pancreatitis but the lipase was quite elevated. Some of this may have been related to prior bariatric surgery or perhaps she and some bile crystals transiently. - Comprehensive Metabolic Panel; Future; Expected date: 01/16/2021 - CBC with Differential, Blood; Future; Expected date: 01/16/2021 - Lipase; Future; Expected date: 01/16/2021 - Will contact her with those results when available and then proceed with further treatment as appropriate. #3 Nephrolithiasis - She has follow-up scheduled in Urology with Sushila Mcneill CNP. She does not have severe percussion tenderness and there was no evidence for hydronephrosis on CT scan, will hold off on urinalysis an additional imaging at this time. She does have a stone screen so will catch the stone and bring it in for analysis. #4 Gastric Bypass Status Post It will be important to proceed with further follow-up with her bariatric surgeon Dr. Joel if there is active pancreatitis or if her liver transaminases are elevated. #5 Leukocytosis She did have some leukocytosis this may have been transient. We will reassess her white count today. All of the above reviewed in detail with the patient and her . Their questions were answered to the best of our abilities. There were no barriers to learning. Addendum 3:00 p.m. Her comprehensive panel is normal, specifically her electrolytes, renal function and liver transaminases are all normal. Her lipase has returned to normal at 46. Importantly though her CBC is abnormal, leukocytes 14.7 neutrophils 12.72 lymphocytes 1.14 monocytes0.085 eosinophils 0. We reviewed this in detail with she and her . It may be that her leukocytes went even higher after she left the emergency department or she has a new secondary infection. Her examination today was reassuring, our plan developed jointly is as follows: 1. Will reassess a CBC with differential tomorrow 2. Will recheck a chest x-ray given her dyspnea, we may need to consider CT. Though she is not tachycardic and she does not have hypoxia. Her oxygen saturation today was 100%. 3. Will check a urinalysis and culture. Again all of this was reviewed in detail with the patient and her their questions were answered. There were no barriers to learning. 55 minutes were spent in the care of the patient. documented in this encounter Plan of Treatment Not on filedocumented as of this encounter Results (ABNORMAL) Bacterial Culture, Aerobic + Susc, Urine (01/17/2021 12:07 PM CDT) Analysis Performed At Patho logist Time Signature Urine Culture Mixed 01/18/2021 MKTO consuelo. (A) 4:28 PM CDT Specimen Anatomical Collection Method Collection Time Receive d Time (Source) Location / / Volume Laterality Urine (Urine, 01/17/2021 12:07 01/17/2021 7:52 Midstream) PM CDT PM CDT Comment: Specimen Source Site: Urine Gagan Tilley M.D. LAB MICROBIOLOGY - GENERAL O RDERABLES Performing Organization Address City/State/ZIP Code Phon e Number [facility]- [address] [place] [address] [place] [address] System in [place] [address] [place] [address] (ABNORMAL) Urinalysis with Microscopic: Urine, Midstream (01/17/2021 12:07 PM CDT) Analysis Performed At Patho logist Time Signature Source Midstream 01/17/2021 FB60 12:59 PM CDT Clarity Slightly Clear 01/17/2021 FB60 Cloudy (A) 12:59 PM CDT Color Yellow 01/17/2021 FB60 12:59 PM CDT Comment: ----REFERENCE VALUE---- Colorless Yellow Dena Blood Large (A) Negative 01/17/2021 12:59 PM CDT FB60 Nitrite Negative Negative 01/17/2021 12:59 PM CDT FB60 Leukocyte Esterase Negative Negative 01/17/2021 12:59 PM C DT FB60 Protein Negative mg/dL 01/17/2021 12:59 PM CDT FB60 Comment: ----REFERENCE VALUE---- Negative Trace Glucose Negative Negative mg/dL 01/17/2021 12:59 PM CDT F B60 Ketones, QI(U) Negative Negative mg/dL 01/17/2021 12:59 PM CDT FB60 Bilirubin Negative Negative 01/17/2021 12:59 PM CDT FB60 pH 8.0 5.0 - 8.0 01/17/2021 12:59 PM CDT FB60 Specific Hume 1.015 1.001 - 1.035 01/17/2021 12:59 PM CDT FB60 Urobilinogen 0.2 0.2 - 1.0 mg/dL 01/17/2021 12:59 PM C DT FB60 White Blood Cells None Seen /hpf 01/17/2021 12:59 PM CD T FB60 Comment: ----REFERENCE VALUE---- Males: 0-3 Females: 0-10 Unknown: 0-10 Red Blood Cells >100 (A) 0 - 2 /hpf 01/17/2021 12:59 PM CDT FB60 Dysmorphic Red Blood Cells <=25 <=25 % 01/17/2021 12 :59 PM CDT FB60 Squamous Cells Occ-3 /hpf 01/17/2021 12:59 PM CDT F B60 Bacteria Present (A) None Seen 01/17/2021 12:59 PM CDT FB60 Specimen Anatomical Collection Method Collection Time Receive d Time (Source) Location / / Volume Laterality Urine (Urine, 01/17/2021 12:07 01/17/2021 Midstream) PM CDT 12:10 PM CDT Gagan Tilley M.D. LAB URINE ORDERABLES Performing Organization Address City/State/ZIP Code Phon e Number [facility]- [address] [place] [address] [facility] [place] [address] [address] (ABNORMAL) CBC with Differential, Blood (01/17/2021 12:07 PM CDT) [facility] gist Method Time Signature Hemoglobin 13.5 11.6 - 01/17/2021 FB60 15.0 g/dL 12:16 PM CDT Hematocrit 39.7 35.5 - 01/17/2021 FB60 44.9 % 12:16 PM CDT Erythrocytes 4.28 3.92 - 01/17/2021 FB60 5.13 12:16 PM CDT x10(12)/L MCV 92.8 78.2 - 01/17/2021 FB60 97.9 fL 12:16 PM CDT RBC Distrib Width 12.7 12.2 - 01/17/2021 FB60 16.1 % 12:16 PM CDT Platelet Count 254 157 - 371 01/17/2021 FB60 x10(9)/L 12:16 PM CDT Leukocytes 8.2 3.4 - 9.6 01/17/2021 FB60 x10(9)/L 12:16 PM CDT Neutrophils 5.37 1.56 - 01/17/2021 FB60 6.45 12:16 PM CDT x10(9)/L Lymphocytes 2.10 0.95 - 01/17/2021 FB60 3.07 12:16 PM CDT x10(9)/L Monocytes 0.69 0.26 - 01/17/2021 FB60 0.81 12:16 PM CDT x10(9)/L Eosinophils 0.00 (L) 0.03 - 01/17/2021 FB60 0.48 12:16 PM CDT x10(9)/L Basophils 0.01 0.01 - 01/17/2021 FB60 0.08 12:16 PM CDT x10(9)/L Specimen Anatomical Collection Method Collection Time Receive d Time (Source) Location / / Volume Laterality Blood (Blood, 01/17/2021 12:07 01/17/2021 Venous) PM CDT 12:08 PM CDT Gagan Tilley M.D. LAB BLOOD ADD-ON Performing Organization Address City/State/ZIP Code Phon e Number [address] [place] [address] [facility] [place] [address] DX Chest AP or PA and Lateral 2 Views (01/17/2021 11:56 AM CDT) Anatomical Region Laterality Modality Chest, Thoracic RST LOS, Thoracic ARZ LOS, Thoracic N/A Digital Radiography FLA LOS Specimen (Source) Anatomical Collection Method Collection Time Re ceived Time Location / / Volume Laterality 01/17/2021 11:58 AM CDT Impressions 01/17/2021 11:59 AM CDT Comparison 10/24/19. Heart size is normal. Lungs are clear. Negative chest. Narrative 01/17/2021 11:59 AM CDT EXAM: DX CHEST AP OR PA AND LATERAL 2 VIEWS Procedure Note Donis Prnigle M.D. - 01/17/2021 EXAM: DX CHEST AP OR PA AND LATERAL 2 EWS IMPRESSION: Comparison 10/24/19. Heart size is normal . Lungs are clear. Negative chest. Gagan Tilley M.D. IMG DIAGNOSTIC IMAGING PROCE DURES Lipase (01/16/2021 10:44 AM CDT) P athologist Signature Lipase, P 46 13 - 60 U/L 01/16/2021 OWAT 11:13 AM CDT Specimen Anatomical Collection Method Collection Time Receive d Time (Source) Location / / Volume Laterality Blood (Blood, 01/16/2021 10:44 01/16/2021 Venous) AM CDT 10:47 AM CDT Gagan Tilley M.D. LAB BLOOD ADD-ON Performing Organization Address City/State/ZIP Code Phon e Number [facility]- [address] [place] [address] [place] [address] System in [place] [address] (ABNORMAL) CBC with Differential, Blood (01/16/2021 10:44 AM CDT) [facility] Method Time Signature Hemoglobin 13.9 11.6 - 01/16/2021 OWAT 15.0 g/dL 10:51 AM CDT Hematocrit 40.8 35.5 - 01/16/2021 OWAT 44.9 % 10:51 AM CDT Erythrocytes 4.36 3.92 - 01/16/2021 OWAT 5.13 10:51 AM CDT x10(12)/L MCV 93.6 78.2 - 01/16/2021 OWAT 97.9 fL 10:51 AM CDT RBC Distrib Width 12.5 12.2 - 01/16/2021 OWAT 16.1 % 10:51 AM CDT Platelet Count 263 157 - 371 01/16/2021 OWAT x10(9)/L 10:51 AM CDT Leukocytes 14.7 (H) 3.4 - 9.6 01/16/2021 OWAT x10(9)/L 10:51 AM CDT Neutrophils 12.72 (H) 1.56 - 01/16/2021 OWAT 6.45 10:51 AM CDT x10(9)/L Lymphocytes 1.14 0.95 - 01/16/2021 OWAT 3.07 10:51 AM CDT x10(9)/L Monocytes 0.85 (H) 0.26 - 01/16/2021 OWAT 0.81 10:51 AM CDT x10(9)/L Eosinophils 0.00 (L) 0.03 - 01/16/2021 OWAT 0.48 10:51 AM CDT x10(9)/L Basophils 0.01 0.01 - 01/16/2021 OWAT 0.08 10:51 AM CDT x10(9)/L Specimen Anatomical Collection Method Collection Time Receive d Time (Source) Location / / Volume Laterality Blood (Blood, 01/16/2021 10:44 01/16/2021 Venous) AM CDT 10:47 AM CDT Gagan Tilley M.D. LAB BLOOD ADD-ON Performing Organization Address City/State/ZIP Code Phon e Number [facility]- [address] [place] [address] [place] [address] System in [place] [address] [facility] Comprehensive Metabolic Panel (01/16/2021 10:44 AM CDT) P athologist Signature Potassium, P 3.9 3.6 - 5.2 01/16/2021 OWAT mmol/L 11:12 AM CDT Sodium, P 144 135 - 145 01/16/2021 OW[facility] mmol/L 11:12 AM CDT Chloride, P 107 98 - 107 01/16/2021 OW[facility] mmol/L 11:12 AM CDT Bicarbonate, P 26 22 - 29 01/16/2021 OW[facility] mmol/L 11:13 AM CDT Anion Gap, P 11 7 - 15 01/16/2021 OWAT 11:12 AM CDT BUN (Blood Urea 9 6 - 21 01/16/2021 OWAT Nitrogen), P mg/dL 11:13 AM CDT Creatinine 0.62 0.59 - 01/16/2021 OWAT 1.04 mg/dL 11:13 AM CDT eGFR-Black/Afric >90 >=60 01/16/2021 OWAT an Mosotho mL/min/BSA 11:13 AM CDT Comment: ----ADDITIONAL INFORMATION---- Estimated GFR calculated using the 2009 CKD_EPI creatinine equation. eGFR Non-Black/ >90 >=60 mL/min/BSA 01/16/2021 11:13 AM CDT OWAT Comment: ----ADDITIONAL INFORMATION---- Estimated GFR calculated using the 2009 CKD_EPI creatinine equation. Calcium, Total, P 9.6 8.6 - 10.0 mg/dL 01/16/2021 11:1 3 AM CDT OWAT Glucose, P 82 70 - 140 mg/dL 01/16/2021 11:13 AM CDT OWAT Protein, Total, P 7.3 6.3 - 7.9 g/dL 01/16/2021 11:13 AM CDT OWAT Albumin, P 4.8 3.5 - 5.0 g/dL 01/16/2021 11:13 AM CDT OWAT Aspartate Aminotransferase 19 8 - 43 U/L 01/16/2021 1 1:13 AM CDT OWAT (AST), P Alkaline Phosphatase, P 76 35 - 104 U/L 01/16/2021 11 :13 AM CDT OWAT Alanine Aminotransferase (ALT), 26 7 - 45 U/L 021 11:13 AM CDT OWAT P Bilirubin, Total, P 0.3 <=1.2 mg/dL 01/16/2021 11:13 A M CDT OWAT Specimen Anatomical Collection Method Collection Time Receive d Time (Source) Location / / Volume Laterality Blood (Blood, 01/16/2021 10:44 01/16/2021 Venous) AM CDT 10:47 AM CDT Gagan Tilley M.D. LAB BLOOD ADD-ON Performing Organization Address City/State/ZIP Code Phon e Number [facility] [address] [place] [address] [facility] [place] [address] System in [place] [address] [facility] documented in this encounter Visit Diagnoses Diagnosis Epilepsy Seizure Not Intractable Without Status Epilepticus (HCC) - Primary Pancreatitis Personal History Nephrolithiasis Gastric Bypass Status Post Leukocytosis Leukocytosis documented in this encounter Care Teams Medical Practice Assistant Relationship Specialty Start Date End Date Matheus Feliciano M.B.BRafalSRafal, Jose. PCP - General Family Medicine 01/09/[address] [place] [address] PANKAJ Velez [phone] documented as of this encounter
--- OUTSIDE RECORDS SUMMARY | 2022-04-10 14:54 | XMS_ITS | Encounter Summary ---
:1980 Author Organization [facility] Address [address] [place] [address] Care Team Providers Name Role Phone Matheus Feliciano M.D. Primary Care Provider [phone] Reason for Visit Reason Comments Med Refill Encounter Details Date Type Department Care Team Description 10/10/2020 Refill Department of Family Medicine, Gagan Mcpherson M.D. Med Refill [facility], in [address] [place] [phone] [place] [address] [place] [address] [phone] Social History Tobacco Use Types Packs/Day Years [...] or relatives? How often do you attend taoist or Never 2021 pentecostal services? Do you belong to any clubs or Yes 09/02/2021 organizations such as taoist groups, unions, fraternal or athletic groups, or [...] school you have completed or th e 8th grade 01/09/2020 highest degree you have received? 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 PCP - General Family Medicine 01/09/[address] [place] [address] [place] [phone] documented as of this encounter
--- OUTSIDE RECORDS SUMMARY | 2022-04-10 14:54 | XMS_ITS | Encounter Summary ---
:1980 Author Organization [facility] Address [address] [place] [address] Care Team Providers Name Role Phone Matheus Feliciano M.D. Primary Care Provider [phone] Encounter Details Date Type Department Care Team Description 09/21/2020 Clinical Communication Department of Urology Don Mcneill in [facility] PAT Gan, R.NRafal [place] [address] [place] [phone] Social History Tobacco Use Types Packs/Day Years [...] do you attend shinto or Never 2021 baptist services? 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 Patient wondering about the pain and cramping in her bladder? Sushila Mcneill stated to please let her know to take tylenol. Patient stated she has taken tylenol and it is not helping. Nurse stated to try warmth and cold to the area. Can try a warm shower or warm or cold compresses toabdomen. Patient stated she will try these things and will see us on Thursday at her post op appointment. No further questions at time of call end. SPERSON Telephone Encounter - Sushila Mcneill APRN, C.N.P. - 09/21/2020 4:49 PM LINESPERSON Five day course of Bactrim is sent to her pharmacy. She should plan to keep her appointment on Thursday. If her symptoms worsen over the weekend she should call the nurse line or possibly be seen at [facility]. SPERSON Telephone Encounter - Ela Fajardo L.P.N. - 09/21/2020 4:21 PM CST Scheduling called patient to see inform her to have a full bladder for her upcoming post op appointment on 09/24/20 with Sushila Mcneill from her procedure done on 09/19/[address] Bernstein. Patient had a cystoscopy with dilation done in the OR. Patient stated she is having bright red urine when she urinates. Patient stated she had a little bit after surgery but today is quite a bit every time she urinates. Patient is drinking plenty of fluids. Patient denies any fever or chills. Patient denies any clots in urine. Patient states she is having pain in her crotch area. She states she is not having any pain with urination but after is having pain and discomfort. Patient stated she has not done anything strenuous or noted any specific time of pain prior to noting the blood in urine. Nurse will check with provider and call her back with any recommendations. SPERSON documented in this encounter Plan of Treatment Not on filedocumented as of this encounter Visit Diagnoses Not on filedocumented in this encounter Care Teams Looper Fixer Relationship Specialty Start Date End Date Matehus Feliciano M.B.B.S., M.D. PCP - General Family Medicine 01/09/[address] [place] [phone] documented as of this encounter
--- OUTSIDE RECORDS SUMMARY | 2022-04-10 14:54 | XMS_ITS | Encounter Summary ---
:1980 Author Organization [facility] Address [address] [place] [address] Care Team Providers Name Role Phone Matheus Feliciano M.D. Primary Care Provider [phone] Encounter Details Date Type Department Care Team Description 01/18/2021 Clinical Communication Department of Matheus [facility], Prabhu Parm[facility], Clinic, in [place] [address] [phone] Social History Tobacco Use Types Packs/Day Years [...] do you attend mu-ism or Never 2021 jehovah's witness services? 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 Please call patient back. Current Can Nursing/Provider leave a detailed message?: No Did the patient refuse triage through Nurse line? (for symptom based concerns): Action Needed: Please advise Name of Medication (if relevant): documented in this encounter Plan of Treatment Not on filedocumented as of this encounter Visit Diagnoses Not on filedocumented in this encounter Additional Health Concerns Infection Onset Date Last Indicated Resolved Time COVID19 Pending 02/01/2021 02/03/2021 02/04/2021 4:50 PM CDT documented as of this encounter Care Teams [employer] Driver Relationship Specialty Start Date End Date Matheus Feliciano M.B.BRafalS., MDonald. PCP - General Family Medicine 01/09/[address] [place] [address] PANKAJ Velez [phone] documented as of this encounter
--- OUTSIDE RECORDS SUMMARY | 2022-04-10 14:54 | XMS_ITS | Encounter Summary ---
:1980 Author Organization [facility] Address [address] [place] [address] Care Team Providers Name Role Phone Matheus Feliciano M.D. Primary Care Provider [phone] Reason for Referral Medication Prior Authorization - Closed Specialty Diagnoses / Procedures Referred By Contact Refer red To Contact Sushila Mcneill APRN, R.NRafal [address] [phone] Referral ID Status Reason Start Date Expiration Date Visits Requ ested Visits Authorized [id number] Closed 1 1 utpatient (Routine) - Closed Specialty Diagnoses / Procedures Referred By Contact Refer red To Contact Urology Sushila Mcneill APRN, R.NRafal [facility] [address] [place] [phone] Referral ID Status Reason Start Date Expiration Date Visits Requ ested Visits Authorized [id number] Closed 01/23/2021 01/23/2022 1 1 utpatient (Routine) - Closed Specialty Diagnoses / Procedures Referred By Contact Refer red To Contact Family Medicine Diagnoses Gastric Bypass Status Post Stone Kidney And Ureteral Sushila Mcneill [facility] PAT, R.N. [address] [facility] [place] [address] Referral ID Status Reason Start Date Expiration Date Visits Requ ested Visits Authorized [id number] Closed 01/23/2021 01/23/2022 1 1 Reason for Visit Reason Comments Nephrolithiasis not passed Encounter Details Date Type Department Care Team Description 01/23/2021 Office Visit Department of Sushila Mcneill By pass Status Post (Primary Dx); [place] APR[place], R. N. Hydronephrosis With Renal And Ureteral C alculous Obstruction; [place] 2199 Stone Kidney And Ureteral [address] [place] [place] [phone] Social History Tobacco Use Types Packs/Day Years [...] or relatives? How often do you attend faith or Never 2021 muslim services? 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 - 01/23/2021 1:30 PM CDT SUBJECTIVE CHIEF COMPLAINT/REASON FOR VISIT Chief Complaint Patient presents with ??? Nephrolithiasis not passed HISTORY OF PRESENT ILLNESS Gricelda is a 40 year old female here today with her for a follow-up for renal and ureteral stones. She has been known to have a 4-5 mm stone in the left kidney, she started having pain on January 09 and presented to the emergency department. CT stone protocol was performed and showed approximately5 mm calculus at the left UVJ with slight dilation of the ureter just proximal to the calculus. She has been taking tamsulosin 0.4 mg oral capsule, 1 capsule daily, pain medication as needed, she has been drinking fluid as much as she can. She has been fairly nauseated but has not been taking Zofran as she is out of this prescription. She is very frustrated with this stone and hopes that we can do something about this soon. She does have family history of kidney stones, her father has had stones in the past. She was also recently taking Topamax which can cause kidney stones, she has also had Cora-en-Y gastric bypass. All 3 of these together put her at high risk for developing more kidney stones. The following portions of the patient's history were reviewed and updated as appropriate: allergies,current medications, family history, medical history, social history, surgical history and problem list. REVIEW OF SYSTEMS Gastrointestinal: Positive for nausea. Genitourinary: Positive for incontinence, pain with urination, urgency and frequent urination. Drinking 6 bottles of water daily. Has to push to start stream. The following systems were negative: Constitutional, Skin, Eyes, ENT, CV, Respiratory, Hematologic, Musculoskeletal, Neuro, Psych OBJECTIVE Vitals: 01/23/21 1317 BP: (!) 100/95 Pulse: 94 Temp: 36.5 ??C Resp: 14 SpO2: 100% PHYSICAL EXAM Vitals and nursing note reviewed. General: Well developed, well nourished, well groomed female in mild emotional distress. Neurological: Alert, cooperative, oriented x3. Appropriate mood and affect. Tearful at times. Head: Normal appearance, no abnormalities, normocephalic. Neck: Symmetrical and supple, trachea is midline. Cardiac: regular rate, regular rhythm Respiratory: Respirations are unlabored with normal respiratory rate and normal respiratory movements. Normal chest wall expansion without use of accessory muscles. Abdomen: Soft, non-tender, non-distended Extremities: Warm, without edema or ulcerations. DIAGNOSTIC RADIOLOGY CT Abdomen and Pelvis January 09, 2021 IMPRESSION: 1. On the left, there is a 5 mm calculus at the ureterovesical junction. Only slight dilatation of the ureter just proximal to the calculus. No left-sided hydronephrosis. 2. On the right, there is a 2 mm nonobstructive intrarenal calculus. No right ureteral calculus. 3. Prior cholecystectomy, appendectomy and changes of gastric bypass. 4. Trace pelvic free fluid. No localized collection. ASSESSMENT / PLAN #1 Left Ureteral Stone #2 History of Gastric Bypass We had an in-depth discussion about renal and ureteral stones. We discussed how they are formed, howthey are prevented, and surgical options for treatment. We discussed that most kidney stones are formed due to in adequate fluid intake. We discussed that persons who form stones are encouraged to drink at least 100 oz of fluid daily. Most of this fluid should be water or flavored water. The goal is to continuously flush the kidneys and bladder to prevent stone formation. We discussed that dietary recommendation is to consume a varied diet of healthy foods, taking note of consuming all things in moderation and monitoring portion sizes. When a patient hasformed a stone, they have a 50% chance of forming another. In short, consume all things in moderation except fluids. We discussed that expectant therapy typically consists of Flomax, increased fluid intake, and physical activity. Flomax or a similar medication is typically prescribed to help to dilate the ureters to allow more space for stones to pass. Increased fluid intake helps to push stones through the ureter, remaining physically active can also help with moving stones. It is recommended to use a strainer each time they urinate if possible. She has been trying to pass this stone for about 2 weeks. At this time, we recommend scheduling for ureteroscopy with laser lithotripsy, stone basketing, stent placement in the operating room with Dr. Bernstein. We discussed risks and benefits of this procedure including risk of ureteral injury, bleeding, infection, and risk of anesthesia. She understands these risks and wishes to proceed. She will need pre anesthetic medical exam and COVID testing prior to procedure. I will see her 1 week postoperatively to remove her stent. In the meantime, she should continue with expectant therapy. She is encouraged to remain physically active, drink extra fluids, take Flomax daily. Prescription for Zofran is also provided. She will contact us if she passes her stone will cancel her procedure. Signed by: Sushila Mcneill APRN, C.N.P. 01/23/2021 1:30 PM CDT documented in this encounter Plan of Treatment Scheduled Referrals Name Type Priority Associated Diagnoses [facility] Outpatient Referral Routine Gastric Bypass Expected: consult (clinic) Status Post 01/23/2021 Stone Kidney And (Approximat e), Ureteral Expires: 01/24/2024 Urology Post Op Outpatient Referral Routine Expec kathleen: (clinic) 02/13/2021 (Approximate), Expires: 01/24/2024 documented as of this encounter Results SARS Coronavirus-2 RNA, V Asymptomatic (02/03/2021 11:50 AM CDT) [facility] Method Time Signature SARS-CoV-2 Swab, [...] pe rformed using the Aptima SARS-CoV-2 assay ([employer] on the C-Vibess tem under emergency use authorization (EUA) by the U.S. Food and Drug Administ ration. Fact sheets for this EUA assay can be fo und at the following links: For Healthcare Providers: https://www.[employer] a.gov/media/732436/download For Patients: https://www.fda.gov/media/ 414097/download Specimen Anatomical Collection Method Collection Time Receive d Time (Source) Location / / Volume Laterality Varies 02/03/2021 11:50 02/03/2021 (Nasopharynx) AM CDT 11:09 PM CDT Sushila Mcneill APRN, R.N. LAB MICROBIOLOGY - GENERA L ORDERABLES Performing Organization Address City/[facility]/ZIP Code Phon e Number [facility]- [address] [place] [address] [place] [address] [address] documented in this encounter Visit Diagnoses Diagnosis Gastric Bypass Status Post - Primary Hydronephrosis With Renal And Ureteral C alculous Obstruction Stone Kidney And Ureteral documented in this encounter Care Teams Satellite Technician Relationship Specialty Start Date End Date Matheus Feliciano M.B.B.S., MDonald. PCP - General Family Medicine 01/09/[address] [place] [address] [place] [phone] documented as of this encounter
--- OUTSIDE RECORDS SUMMARY | 2022-04-10 14:54 | XMS_ITS | Encounter Summary ---
:1980 Author Organization [facility] Address [address] [place] [address] Care Team Providers Name Role Phone Matheus Feliciano M.D. Primary Care Provider [phone] Reason for Visit Reason Comments Urinary Urgency Urinary Frequency Outpatient (Routine) - Closed Specialty Diagnoses / Procedures Referred By Contact Refer red To Contact Urology Sushila Mcneill APRN RIsiah [address] [phone] Referral ID Status Reason Start Date Expiration Date Visits Requ ested Visits Authorized [id number] Closed 09/24/2020 09/24/2021 1 1 Encounter Details Date Type Department Care Team Description 11/26/2020 Office Visit Department of Urology Sushila Mcneill, Urgency Urinary in [place] RIsiah (Primary Dx) [address] [phone] Social History Tobacco Use Types Packs/Day Years [...] do you attend shinto or Never 2021 yazdanism services? 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 - 11/26/2020 3:30 PM CDT SUBJECTIVE CHIEF COMPLAINT/REASON FOR VISIT Chief Complaint Patient presents with ??? Urinary Urgency ??? Urinary Frequency HISTORY OF PRESENT ILLNESS Gricelda is a pleasant 40-year-old female here today with her for a follow- up for her urinary symptoms. She had Cora-en-Y gastric bypass in 2010. She has had quite a bit of urinary urgency and frequency but is unable to take extended- release tablets due to her gastric bypass. She has been taking Sanctura 20 mg tablet twice daily. She has not noticed a huge difference in her urinary symptoms but her feels that this has been extremely helpful for her. She is not going to the bathroom as often and is having significantly less urgency. Please see below for further details. The following portions of the patient's history were reviewed and updated as appropriate: allergies,current medications, family history, medical history, social history, surgical history and problem list. He is REVIEW OF SYSTEMS Constitutional: Positive for weight loss of more than 10 pounds. Lost 60 pounds this year, unsure why. No dietary or exercise changes. Gastrointestinal: Negative for constipation and diarrhea. Genitourinary: Positive for incontinence, pain with urination, urgency and frequent urination. More urgency over the last few weeks. Some leaking on the way to the bathroom at night. Gets up 2-3 times at night. Voids every 2 hours during the day. Doesn't feel that bladder empties all the way. Sometimes has double void. Leaks 3 times a day, wears pads, small amount of leakage. Drinks 6 16 ounce bottles of water, 2 monster energy drinks. The following systems were negative: Skin, Eyes, ENT, CV, Respiratory, GI, Hematologic, Musculoskeletal, Neuro, Psych OBJECTIVE Vitals: 11/26/20 1518 Pulse: 86 Temp: 36.2 ??C SpO2: 100% TempSrc: Temporal PHYSICAL EXAM Vitals and nursing [...] Extremities: Warm, without edema or ulcerations. DIAGNOSTIC Postvoid residual by bladder scan 74 mL. ASSESSMENT / PLAN #1 Urinary Urgency and Frequency Continue Sanctura 20 mg tablet twice daily. Refills are provided. As long as her urinary symptoms stay stable, her primary provider can continue to prescribe the medication. She has changes in urinary symptoms or other urinary concerns, she should contact us. All questions are answered today. Signed by: Sushila Mcneill APRN, C.N.P. 11/26/2020 3:50 PM CDT documented in this encounter Plan of Treatment Not on filedocumented as of this encounter Visit Diagnoses Diagnosis Urgency Urinary - Primary documented in this encounter Care Teams Hat Former Relationship Specialty Start Date End Date Matheus Feliciano M.B.B.S., M.D. PCP - General Family Medicine 01/09/[address] [place] [phone] documented as of this encounter
--- OUTSIDE RECORDS SUMMARY | 2022-04-10 14:54 | XMS_ITS | Encounter Summary ---
:1980 Author Organization [facility] Address [address] [place] [address] Care Team Providers Name Role Phone Matheus Feliciano M.D. Primary Care Provider [phone] Encounter Details Date Type Department Care Team Description 01/10/2021 Clinical Communication Department of Urology Don Mcneill in [facility] PAT Gan, R.NRafal [place] [address] [place] [phone] Social History Tobacco Use Types Packs/Day Years [...] or relatives? How often do you attend mormon or Never 2021 episcopal services? 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 - 01/11/2021 3:34 PM CDT Spoke with patient and gave her the recommendations. Patient stated she has not noticed passing any stones yet. Patient does not have a strainer either and lives in [place] and today, Urology is not in clinic in [place] today. 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 Patient verbalized understandings. Nurse stated we can schedule her for a follow up on 01/23/21 and can cancel if she passes the stone. Patient verbalized understandings. No further questions at time of call end. Telephone Encounter - Lin Holman R.N. - 01/11/2021 9:54 AM CDT Left message for patient to call back. Telephone Encounter - Sushila Mcneill APRN, C.N.PRafal - 01/11/2021 9:21 AM CDT Keep drinking fluids, strain urine for stone. Follow-up is she doesn't pass the stone in 1-2 weeks. documented in this encounter Plan of Treatment Not on filedocumented as of this encounter Visit Diagnoses Not on filedocumented in this encounter Care Teams Scrap Baller Relationship Specialty Start Date End Date Matheus Feliciano M.B.B.S., M.D. PCP - General Family Medicine 01/09/[address] [place] [address] [place] [address] documented as of this encounter
--- OUTSIDE RECORDS SUMMARY | 2022-04-10 14:54 | XMS_ITS | Encounter Summary ---
:1980 Author Organization [facility] Address [address] [place] [address] Care Team Providers Name Role Phone Matheus Feliciano M.D. 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 Reason for Visit Reason Comments Post-op cysto with dilation bleeding over the weekend has gotten much better from Thursday Outpatient (Routine) - Closed Specialty Diagnoses / Procedures Referred By Contact Refer red To Contact Urology Sushila Mcneill APRN, R.NRafal [facility] Region [address] [place] [phone] Referral ID Status Reason Start Date Expiration Date Visits Requ ested Visits Authorized [id number] Closed 09/11/2020 09/11/2021 1 1 Encounter Details Date Type Department Care Team Description 09/24/2020 Office Visit Department of Sushila Mcneill (Primary Dx); Urology in [place], [place] RIDER, R.N. Follow Up Examination Postoperative Visi t; Jossy Segura [address] Hematuria; [address] [place], [place] Spasm Bladder [place] [phone] Social History Tobacco Use Types Packs/Day [...] or relatives? How often do you attend anabaptism or Never 2021 scientologist services? 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 - 09/24/2020 10:30 AM CST SUBJECTIVE CHIEF COMPLAINT/REASON FOR VISIT Chief Complaint Patient presents with ??? Post-op cysto with dilation bleeding over the weekend has gotten much better from Thursday HISTORY OF PRESENT ILLNESS Gricelda is a pleasant 39 year old female here today with her for a follow- up after cystoscopy and urethral dilation in the operating room with Dr. Bernstein on September 19, 2020. She has been having more bladder spasms since her procedure, she started taking the trospium last week. She contacted us on Thursday afternoon stating that she had been having more bladder spasms and hematuria. Prescription for Bactrim DS, 5 day course was sent to her pharmacy. Her symptoms have slowly improved since then but she has not had complete relief of symptoms. She also notes that she has bruising and swelling near her right thumb from her IV that was placed for procedure. She states that the swelling and bruising did not start until the day after the procedure. She has some numbness and tingling in her thumb and 1st finger. The following portions of the patient's history were reviewed and updated as appropriate: allergies,current medications, family history, medical history, social history, surgical history and problem list. REVIEW OF SYSTEMS Gastrointestinal: Positive for abdominal (belly) pain or cramping. No BM since surgery, this is typical for her (4-5 days). Takes Miralax on most days. Genitourinary: Positive for pain with urination and frequent urination. Has been having more bladder spasms (3-4 yesterday), still having urgency and frequency. Gets up 3 times at night, voids every few hours during the day. Started antibiotics on Thursday, symptoms have improved. Drinks several bottles of water, 2 monster energy drinks, no milk. Neurological: Positive for numbness or shooting pain in hands, arms, legs, or feet. The following systems were negative: Constitutional, Skin, Eyes, ENT, CV, Respiratory, Hematologic, Musculoskeletal, Psych OBJECTIVE Vitals: 09/24/20 1020 Pulse: 87 Temp: 36.7 ??C SpO2: 100% TempSrc: Temporal PHYSICAL EXAM [...] non-distended Extremities: Warm, without edema or ulcerations. Bruising near base of right thumb, snuffbox tenderness. DIAGNOSTIC Postvoid residual by bladder scan 36 mL. ASSESSMENT / PLAN #1 Meatal Stenosis s/p Urethral Dilation #2 Bladder Spasms #3 Presumed UTI #4 Post-operative Visit #5 Bruising Right Thumb after IV Continue antibiotics as prescribed, also continue to take trospium as directed. It will take severalmore weeks before the trospium is at full effect. We discussed dietary bladder irritants, she does drink 2 cans of monster energy drink daily which can cause her to have more urinary urgency and frequency. She is also encouraged to keep her bowels well controlled and avoid constipation if possible. Return to clinic in 6-8 weeks for follow-up. Regarding her pain in the right thumb and snuffbox after IV placement for her procedure, she is advised to apply heat to the area. If she still is having pain next week she should contact her primary provider. Signed by: Sushila Mcneill APRN, C.N.P. 09/24/2020 10:31 AM OUTBOARD MOTORBOAT RIGGER OARD MOTORBOAT RIGGER documented in this encounter Plan of Treatment Scheduled Referrals Name Type Priority Associated Diagnoses Order S [facility] Urology office Outpatient Referral Routine Expect ed: visit (clinic) 11/22/2020 (Approximate), Expires: 09/24/2023 documented as of this encounter Visit Diagnoses Diagnosis Stenosis Meatal - Primary Follow Up Examination Postoperative Visi t Hematuria Spasm Bladder documented in this encounter Care Teams Digital Engineer Relationship Specialty Start Date End Date Matheus Feliciano M.B.B.S., M.D. PCP - General Family Medicine 01/09/[address] [place] [phone] documented as of this encounter
--- OUTSIDE RECORDS SUMMARY | 2022-04-10 14:54 | XMS_ITS | Encounter Summary ---
:1980 Author Organization [facility] Address [address] [place] [address] Care Team Providers Name Role Phone Matheus Feliciano M.D. Primary Care Provider [phone] Encounter Details Date Type Department Care Team Description 01/17/2021 Clinical Communication Department of [facility], Kelloggjerome Farah M.D. [facility], in [address] [address] [place] [address] [facility] [phone] Social History Tobacco Use Types Packs/Day Years [...] do you attend quaker or Never 2021 methodist services? 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 - 01/17/2021 6:30 PM CDT We reviewed the urinalysis with the patient and her . This did show findings consistent with a kidney stone. We initiated therapy with Flomax to assist with passing of the stone. [place] provided for pain relief. Gagan Tilley M.D. Telephone Encounter - Leonila Walker, L.P.N. - 01/17/2021 3:[address] Tilley please see patient lab results from today and advise thank you Telephone Encounter - Goldie Aguillon - 01/17/2021 3:07 PM CDT Patient calling to discuss results of testing, Dr Tilley gave them his pager number but they can't get it to work. Please call [phone] documented in this encounter Plan of Treatment Not on filedocumented as of this encounter Visit Diagnoses Not on filedocumented in this encounter Care Teams Embroidery Patternmaker Relationship Specialty Start Date End Date Matheus Feliciano M.B.B.S., M.D. PCP - General Family Medicine 01/09/[address] [place] [address] [place] [address] documented as of this encounter
--- OUTSIDE RECORDS SUMMARY | 2022-04-10 14:54 | XMS_ITS | Encounter Summary ---
:1980 Author Organization [facility] Address [address] [place] [address] Care Team Providers Name Role Phone Matheus Feliciano M.D. Primary Care Provider [phone] Encounter Details Date Type Department Care Team Description 10/08/2020 Hospital Encounter Department of Rebel Bernstein Hemat uria Gross; Laboratory Medicine in M.D. [facility] [place], [place] [address] [address] [phone] Social History Tobacco Use Types Packs/Day Years [...] do you attend caodaism or Never 2021 episcopalian services? 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 1200 mg promethazine (PHENERGAN) Take 25 mg by mouth 0 25 mg tablet as needed for nausea. polyethylene glycol Take 1 packet (17 g 90 packet 3 020 01/09/2021 (MIRALAX) 17 gram powder total) by mouth packet daily. Dissolve each 17 g dose in 240 mLs (8 ounces) of beverage. syringe with needle, Use 1 syringe 12 [...] C,,bulk, 100 % powder daily. atomoxetine (STRATTERA) Take 1 capsule (80 90 capsule 1 08/11/201910/12/2020 80 mg capsule mg total) by mouth daily. busPIRone (BUSPAR) 30 mg TAKE 1 TABLET(30 [...] 100,000 topically as Unit/g-0.1 % cream needed. ondansetron ODT Take 4 mg by mouth 0 09/21/2019 0 01/23/2021 (ZOFRAN-ODT) 4 mg as needed. disintegrating tablet pantoprazole (PROTONIX) daily. 0 07/13/2020 1 09/17/2020 40 mg EC tablet SUMAtriptan (IMITREX) as needed. 0 03/10/2018 100 mg tablet topiramate (TOPAMAX) 100 Take 1 tablet (100 90 tablet 3 2020 mg tabletIndications: mg total) by mouth Migraine Headache at bedtime. trospium (SANCTURA) 20 Take 1 tablet (20 120 tablet 1 202011/26/2020 mg tablet mg total) by mouth 2 (two) times a day before breakfast and dinner. ZOLMitriptan (ZOMIG) 5 Take by mouth as 0 06/24/2021 mg tablet needed. documented as of this encounter Plan of Treatment Not on filedocumented as of this encounter Procedures Procedure Name Priority Date/Time Associated Diagnosis Comme nts CYTOLOGY NON-CERTIFIED SCRUM MASTER Routine 10/08/2020 12:52 PM Hematuria G ross Results for this (SCHEDULED) GLOBAL MANAGER [facility] procedure ar e in the results section. BACTERIAL CULTURE, Routine 10/08/2020 12:52 PM Hematuria Gross Results for this AEROBIC + SUSC, GLOBAL MANAGER [facility] procedure are in URINE the results section. documented in this encounter Results Cytology Non-CERTIFIED SCRUM MASTER (Scheduled) (10/08/2020 12:52 PM GLOBAL MANAGER) Component Value Ref Test Analysis Performed At [facility] gist Range Method Time Signature 10/09/2020 [facility] 11:49 AM GLOBAL MANAGER Fixative 50% 10/09/2020 [facility] 11:49 AM GLOBAL MANAGER Report Irena Bhandari MD 10/09/2020 [facility] electronically I verify that I have examined all relevant slides/ma terials 11:49 AM signed by for the specimen(s) and rendered or confirmed the diagnosis. GLOBAL MANAGER Gross Description 100 ml of 10/09/2020 [facility] clear yellow 11:49 AM fluid GLOBAL MANAGER received. Collection clean void 10/09/2020 [facility] Procedure 11:49 AM GLOBAL MANAGER Source A. Urine, 10/09/2020 [facility] Clean Catch, 11:49 AM voided GLOBAL MANAGER Clinical History unknown 10/09/2020 [facility] 11:49 AM GLOBAL MANAGER Interpretation A. 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 11:49 A M GLOBAL MANAGER Specimen Anatomical Collection Method Collection Time Receive d Time (Source) Location / / Volume Laterality Varies (Urine, 10/08/2020 12:52 8:14 Clean Catch) PM GLOBAL MANAGER AM GLOBAL MANAGER Narrative This result has an attachment that is no t available. Rebel Bernstein M.D. LAB SURG PATH ORDERABLES Performing Organization Address [facility]/ZIP [facility] Phon e Number [facility]- [address] [place] [address] [place] [address] [facility] Cytology [address] [place] [address] Bacterial Culture, Aerobic + Susc, Urine (10/08/2020 12:52 PM GLOBAL MANAGER) [facility] gist Method Time Signature Urine Culture No growth 10/09/2020 [facility] after 1 day 4:39 PM GLOBAL MANAGER of incubation. Specimen Anatomical Collection Method Collection Time Receive d Time (Source) Location / / Volume Laterality Urine (Urine, 10/08/2020 12:52 10/08/2020 6:59 Midstream) PM GLOBAL MANAGER PM GLOBAL MANAGER Comment: Specimen Source Site: Urine Rebel Bernstein M.D. LAB MICROBIOLOGY - GENERAL O RDERABLES Performing Organization Address City/[facility]/ZIP [facility] Phon e Number [facility]- [address] [place] [address] [place] [address] [facility] in [address] documented in this encounter Visit Diagnoses Diagnosis Hematuria Gross [facility] documented in this encounter Care Teams Lathe Set Up Person Relationship Specialty Start Date End Date Matheus Feliciano M.B.BRafalSRafal, MDonald. PCP - General Family Medicine 01/09/[address] [place] [phone] documented as of this encounter
--- OUTSIDE RECORDS SUMMARY | 2022-04-10 14:54 | XMS_ITS | Encounter Summary ---
:1980 Author Organization [facility] Address [address] [place] [address] Care Team Providers Name Role Phone Matheus Feliciano M.D. Primary Care Provider [phone] Encounter Details Date Type Department Care Team Description 01/17/2021 Hospital Encounter Department of Radiology Haylierichter Gagan, Leukocytosis in Celso Blackwell M.D. [address] [place] [address] [place], [place] [phone] [address] Social History Tobacco Use Types Packs/Day Years [...] do you attend shinto or Never 2021 pentecostal services? 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 disintegrating tablet oxyCODONE (ROXICODONE) 5 Take 5-10 mg by 0 202007/17/2021 mg immediate release mouth. tablet pantoprazole (PROTONIX) daily. 0 07/13/2020 1 09/17/2020 40 mg EC tablet SUMAtriptan (IMITREX) as needed. 0 03/10/2018 100 mg tablet topiramate (TOPAMAX) 100 Take 1 tablet (100 90 tablet 3 12/202001/22/2021 mg tabletIndications: mg total) by mouth Migraine [...] Procedure Name Priority Date/Time Associated Comments Diagnosis DX CHEST AP OR PA RAD - Routine 01/17/2021 11:56 Leukocytosis Resul ts for this AND LATERAL 2 (most inpatients AM CDT procedure are in VIEWS and all the results outpatients) section. documented in this encounter Results DX Chest AP or PA and Lateral [...] AND LATERAL 2 VIEWS Procedure Note Donis Pringle M.D. - 01/17/2021 EXAM: DX CHEST AP OR PA AND LATERAL 2 EWS IMPRESSION: Comparison 10/24/19. Heart size is normal . Lungs are clear. Negative chest. Gagan VALDOVINOS DIAGNOSTIC IMAGING PROCE LAILA documented in this encounter Visit Diagnoses Diagnosis Leukocytosis documented in this encounter Care Teams Pouncing Lathe Operator Relationship Specialty Start Date End Date Matheus Feliciano M.B.B.S., M.D. PCP - General Family Medicine 01/09/[address] [place] [address] PANKAJ Blackwell [phone] documented as of this encounter
--- OUTSIDE RECORDS SUMMARY | 2022-04-10 14:54 | XMS_ITS | Encounter Summary ---
:1980 Author Organization [facility] Address [address] [place] [address] Care Team Providers Name Role Phone Matheus Feliciano M.D. Primary Care Provider [phone] Encounter Details Date Type Department Care Team Description 09/21/2020 Orders Only [facility] [place] BRANCH OFFICE ADMINISTRATOR, R.N. [address] [place] [address] [place] [address] [phone] (Wo rk) Social History Tobacco Use Types [...] do you attend anglican or Never 2021 yarsani services? 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 PCP - General Family Medicine 01/09/[address] [place] [address] [place] [phone] documented as of this encounter
--- OUTSIDE RECORDS SUMMARY | 2022-04-10 14:54 | XMS_ITS | Encounter Summary ---
:1980 Author Organization [facility] Address [address] [place] [address] Care Team Providers Name Role Phone Matheus Feliciano M.D. Primary Care Provider [phone] Encounter Details Date Type Department Care Team Description 01/17/2021 Hospital Encounter Department of Laboratory Gagan Tilley, Leukocytosis Medicine in [place] [address] [place] [phone] Social History Tobacco Use Types Packs/Day Years [...] do you attend denominational or Never 2021 congregational services? 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 documented in this encounter Results (ABNORMAL) CBC with Differential, Blood (01/17/2021 12:07 PM CDT) [facility] gist Method Time Signature Hemoglobin 13.5 11.6 [...] Address City/State/ZIP Code Phon e Number [facility]- [address] [place] [address] [facility] [address] [place] [address] System [address] documented in this encounter Visit Diagnoses Diagnosis Leukocytosis documented in this encounter Care Teams Dumper Relationship Specialty Start Date End Date Matheus Feliciano M.B.B.S., M.D. PCP - General Family Medicine 01/09/[address] [place] [phone] documented as of this encounter
--- OUTSIDE RECORDS SUMMARY | 2022-04-10 14:54 | XMS_ITS | Encounter Summary ---
:1980 Author Organization [facility] Address [address] [place] [address] Care Team Providers Name Role Phone Matheus Feliciano M.D. Primary Care Provider [phone] Reason for Visit Reason Comments Advice Only Appointment Request (Routine) - Closed Specialty Diagnoses / Procedures Referred By Contact Refer red To Contact Otorhinolaryngology Referral ID Status Reason Start Date Expiration Date Visits Requ ested Visits Authorized [id number] Closed 01/10/2021 01/10/2022 1 1 Encounter Details Date Type Department Care Team Description 01/21/2021 Office Visit Department of Dina, Trista Obstruction N mary (Primary Dx); Otorhinolaryngology in L, P.A.-C . Deviation Nasal Septal; [place], [place] [address] Rhinitis Chronic [address] [place] [address] [place], [place] [phone] [address] Social History Tobacco Use Types Packs/Day [...] or relatives? How often do you attend mandaen or Never 2021 muslim services? 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 - 01/21/2021 3:00 PM CDT SUBJECTIVE CHIEF COMPLAINT/REASON FOR VISIT Tender lump in left-sided nose, nasal airway obstruction HISTORY OF PRESENT ILLNESS Gricelda Roberts presents to the clinic today with her . She is here to have her nose checked 1st long she can remember, she has never been able to breathe well through her nose. She is often times a mouth breather. She finds if she pulls out on her nostrils laterally, she can breathe better. She never really gets a lot of mucus out of her nose when she is blowing her nose, but does have somethick purulent drainage in her nose every morning when she wakes up. She will usually cleaned this out with a Q-tip. A couple months ago she noticed a firm nodule or lump in the left side of her nose while cleaning with a Q-tip. It is very tender when she pushes on this spot. She feels the entire left side of her nose, maxillary area, and sometimes all the way to the ear, are somewhat clogged or plugged. She has been seen in the past for eustachian tube dysfunction. The following portions of the patient's history were reviewed and updated as appropriate: allergies,current medications and problem list OBJECTIVE PHYSICAL EXAMINATION Patient is alert, cooperative, in no acute distress. External ears are normal. Ear canals are normal. Tympanic membranes are normal with clear middle ears. External nasal exam reveals decreased tip support. Septum is deviated to the left with a spur in area 2, she does show me with a Q-tip and this isexactly the point where she is feeling the tenderness and lump. She has mild mucopurulent drainage on both inferior turbinates. No polyps or sign of posterior obstruction. Oral cavity is without lesions, but she does wear dentures and these were not removed for today's examination. Neck is without adenopathy. ASSESSMENT / PLAN 1. Nasal airway obstruction 2. Nasal septal deviation 3. Chronic nasal drainage Discussed involved anatomy and findings. She is reassured regarding the deviated septum and that this is not dangerous. That being said, she is bothered by her obstruction and is interested in proceeding with a CT scan to see if she has any chronic sinus disease or other septal deviation posteriorly. Order for this is placed, she would like to do this in [place]. I will review the scan and call herwith results thereafter. She is interested in surgery if I think it would help her nasal airway significantly. Trista Arroyo P.A.-C. documented in this encounter Plan of Treatment Not on filedocumented as of this encounter Visit Diagnoses Diagnosis Obstruction Nasal - Primary Deviation Nasal Septal Rhinitis Chronic documented in this encounter Care Teams Wellness Instructor Relationship Specialty Start Date End Date Matheus Feliciano M.B.B.S., M.D. PCP - General Family Medicine 01/09/[address] [place] [phone] documented as of this encounter
--- OUTSIDE RECORDS SUMMARY | 2022-04-10 14:54 | XMS_ITS | Encounter Summary ---
:1980 Author Organization [facility] Address [address] [place] [address] Care Team Providers Name Role Phone Matheus Feliciano M.D. Primary Care Provider [phone] Encounter Details Date Type Department Care Team Description 01/16/2021 Hospital Encounter Department of Altrichter, Pancreat itis Personal Laboratory Medicine Ana Farah History in [address] [place] [address] [address] [place], [place] [phone] [address] (Work) [phone] Social History Tobacco Use Types Packs/Day Years [...] or relatives? How often do you attend yazidi or Never 2021 mandaeism services? 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 LIPASE, S/P Routine 01/16/2021 10:44 Pancreatitis Results for this AM CDT Personal History procedure a re in the results section. COMPREHENSIVE Routine 01/16/2021 10:44 Pancreatitis Results fo r this METABOLIC PANEL, S/P AM CDT Personal History pro cedure are in the results section. documented in this encounter Results Lipase (01/16/2021 10:44 AM CDT) P athologist Signature Lipase, P 46 13 - 60 U/L 01/16/2021 [facility] 11:13 AM CDT Specimen Anatomical Collection Method Collection Time Receive d Time (Source) Location / / Volume Laterality Blood (Blood, 01/16/2021 10:44 01/16/2021 Venous) AM CDT 10:47 AM CDT Gagan Tilley M.D. LAB BLOOD ADD-ON Performing Organization Address City/State/ZIP Code Phon e Number [facility]- [address] [place] [address] [facility] [place] [address] System in [place] [address] (ABNORMAL) CBC with Differential, Blood (01/16/2021 10:44 AM CDT) Patholo gist Method Time Signature Hemoglobin 13.9 11.6 - [...] Organization Address City/State/ZIP Code Phon e Number [facility]- [address] [place] [address] [place] [address] System in [place] [address] [facility] Comprehensive Metabolic Panel (01/16/2021 10:44 AM CDT) [...] CDT eGFR-Black/Afric >90 >=60 01/16/2021 [facility] an Bermudian mL/min/BSA 11:13 AM CDT Comment: ----ADDITIONAL INFORMATION---- [...] Organization Address City/State/ZIP Code Phon e Number [facility]- [address] [place] [address] [place] [address] System in [place] [address] documented in this encounter Visit Diagnoses Diagnosis Pancreatitis Personal History documented in this encounter Care Teams Signals Intelligence Superintendent Relationship Specialty Start Date End Date Matheus Feliciano M.B.B.S., M.D. PCP - General Family Medicine 01/09/[address] [place] [address] Isaac PANKAJ Blackwell [phone] documented as of this encounter
--- OUTSIDE RECORDS SUMMARY | 2022-04-10 14:54 | XMS_ITS | Encounter Summary ---
:1980 Author Organization [facility] Address [address] [place] [address] Care Team Providers Name Role Phone Matheus Feliciano M.D. Primary Care Provider [phone] Reason for Referral Specialty Diagnoses / Procedures Referred By Contact Refer red To Contact [address] [address] Referral ID Status Reason Start Date Expiration Date Visits Requ ested Visits Authorized Encounter Details Date Type Department Care Team Description 11/22/2020 Immunization Department of Chica Knowles [facility] unter For COVID-19 Medicine, Carlos Mo M.D. Vaccine Immunization Building, in [place] [address] [address] [facility] (Primary Dx) [address] [address] [place], [place] [phone] (Work) [phone] Social History Tobacco Use Types Packs/Day Years [...] do you attend sikh or Never 2021 confucianist services? 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 PCP - General Family Medicine 01/09/[address] [place] [address] PANKAJ Velez [phone] documented as of this encounter
--- OUTSIDE RECORDS SUMMARY | 2022-04-10 14:54 | XMS_ITS | Encounter Summary ---
:1980 Author Organization [facility] Address [address] [place] [address] Care Team Providers Name Role Phone Matheus Feliciano M.D. Primary Care Provider [phone] Encounter Details Date Type Department Care Team Description 12/18/2020 Immunization Department of [facility] Herve [facility] COVID-19 Medicine, Carlos Rosas M.D. Vaccine Immunization Building, in [address] [place] [address] [place], [place] [phone] [address] (Work) [phone] Social History Tobacco Use Types Packs/Day Years [...] do you attend yarsani or Never 2021 sabianism services? 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 PCP - General Family Medicine 01/09/[address] [place] [address] [place] [address] documented as of this encounter
--- OUTSIDE RECORDS SUMMARY | 2022-04-10 14:54 | XMS_ITS | Encounter Summary ---
:1980 Author Organization [facility] Address [address] [place] [address] Care Team Providers Name Role Phone Matheus Feliciano M.D. Primary Care Provider [phone] Reason for Referral Specialty Diagnoses / Procedures Referred By Contact Refer red To Contact Clay Mcneill M.D. [facility] [address] [place] [phone] Referral ID Status Reason Start Date Expiration Date Visits Requ ested Visits Authorized Encounter Details Date Type Department Care Team Description 11/09/2020 Orders Only [facility] P[facility] PANKAJT Sa rigo Ng M.D. [address] [place], [place] [phone] (Wo rk) Social History Tobacco Use Types [...] do you attend gnosticist or Never 2021 yarsani services? 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 PCP - General Family Medicine 01/09/[address] [place] [address] [place] [phone] documented as of this encounter
--- OUTSIDE RECORDS SUMMARY | 2022-04-10 14:54 | XMS_ITS | Encounter Summary ---
:1980 Author Organization [facility] Address [address] [place] [address] Care Team Providers Name Role Phone Matheus Feliciano M.D. Primary Care Provider [phone] Reason for Referral Outpatient (Routine) - Closed Specialty Diagnoses / Procedures Referred By Contact Refer red To Contact Neurology Diagnoses Epilepsy Seizure Not Intractable Without Status Epilepticus (HCC) Migraine With Aura Without Headache Donis Stuart M.D. [address] [address] Referral ID Status Reason Start Date Expiration Date Visits Requ ested Visits Authorized [id number] Closed 01/22/2021 01/22/2022 1 1 Reason for Visit Outpatient (Routine) - Closed Specialty Diagnoses / Procedures Referred By Contact Refer red To Contact Neurology Diagnoses Epilepsy Seizure Not Intractable Without Status Epilepticus (HCC) Donis Stuart M.D. [address] [phone] Referral ID Status Reason Start Date Expiration Date Visits Requ ested Visits Authorized [id number] Closed 10/27/2019 10/26/2020 1 1 Encounter Details Date Type Department Care Team Description 01/22/2021 Telemedicine Department of Donis Stuart Migraine With Aura Without Headache (Primary Dx); Neurology martha Mccullough M.D. Epilepsy Seizure Not Intractable Without Status Epilepticus (HCC) [address] [phone] Social History Tobacco Use Types Packs/Day Years [...] do you attend judaism or Never 2021 hinduism services? 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 - 01/22/2021 4:00 PM CDT SUBJECTIVE CHIEF COMPLAINT / REASON FOR VISIT Consult conducted via real-time audio/video technology by Donis Stuart M.D. in [facility] to the patient in her home. HISTORY OF PRESENT ILLNESS BACKGROUND In summary, she has no seizure risk factors. She had 2 convulsions that occurred in December 2015 about 2weeks apart. Both of these were at bedtime and without any warning. As described, she suddenly stiffened up and began shaking without any clear ictal cry or head turn. Each convulsion lasted about 30 seconds, followed by 7 to 10 minutes of unresponsiveness, and another 1 to 2 hours of gradual return to baseline. She was started on levetiracetam 500 mg 2 times daily, which she remains on. EEG in [place] was normal. MRI in April 2016 did not show any epileptogenic lesions. In June 2016 she did stop many of her medications on her own, including her levetiracetam. She recalls that 1 night she suddenly had very severe right-sided headache and her head started jerking (by her description to the left), and then her whole body began jerking. Importantly, she remained awake the entire time with that event. She reported a seizure in September 2019. Details were lacking other than she was found to be shakingall over and was sore and amnestic afterward. This was in the setting of a GI illness and inability to keep her levetiracetam and other medications down for several days. PREVIOUS MEDICATIONS None?? CURRENT MEDICATIONS Levetiracetam 500 mg twice daily, tolerating well (Topiramate 100 mg nightly for migraine prevention) INTERVAL HISTORY She had an episode of left leg jerking and right face twitching that started when she had a stabbingpain in her left side. She remained aware of what was going on. She felt like her heart was racing and her eyes started to water. The leg shaking lasted about 2 minutes. The face jerking was more minor. This was unlike previous seizures. She presented to her local hospital, and an abdominal CT showed that a 5 millimeter kidney stone was obstructing the left ureter at the ureterovesicular junction. A CT earlier in August of this year showed that she had a bilateral non-obstructing kidney stones in the inferior poles, but on the January scan with this event the left stone was no longer in the kidney but the right was, implying that the obstructing stone had migrated from the left kidney. She does continue to have migraines 2-3 days at a time approximately weekly, estimating 8-10 migraine days per month. Historically, she says it feels like her head is in a vice. It tends to be worst inthe back of the head and down the neck. She does have associated nausea, light sensitivity, and sound sensitivity. She is on gabapentin 900 milligrams 3 times daily without benefit (and she had been taking this for other pain related symptoms prior to our use for headache). In the past, she has also been on verapamil extended release 120 milligrams daily, but had problematic lightheadedness when she would stand up. She currently is on topiramate 100 mg nightly for prophylaxis. ASSESSMENT / PLAN #1 Epilepsy, unclassified, etiology unknown #2 Spell inconsistent with seizure in the setting of probable renal colic The spell she had was inconsistent with seizure and was different than previous seizures that she has had. There is evidence that she has an active kidney stone, which could account for her left-sided sudden stabbing pain. I suspect that the episode itself was physical manifestation in response to that severe pain. Because of that, I have recommended continuing her current dose of levetiracetam 500 milligrams twice daily. #3 Nephrolithiasis #4 Migraine without aura She has been taking topiramate for migraine prevention, but now has active kidney stones. Because ofthis, I think it is best to remove the topiramate. I have asked her to reduce the dose to 50 milligrams once nightly for a week and then stop it. In its place I think it would be reasonable to try Ajovy 225 mg monthly. This is a preferred agent requiring prior authorization in reviewing her formulary. Side effects were discussed, essentially at present being only injection site reactions with otherwise excellent tolerability. She is in agreement to giving it a try. I have submitted a script to her pharmacy. We also discussed some naturopathic options. Riboflavin, Coenzyme Q10, or magnesium oxide could be taken for headache prevention. A dose of 400 mg daily with any of these would suffice for a trial. They are all over the counter. Her did inquire about MS as a cause of her general symptoms that have plagued her for some time. We reviewed that she has not had cardinal features of MS, and her brain MRI in 2019 did not showany evidence of demyelination. Therefore, she fortunately does not have MS. I have asked her to message me regarding her headache control after giving Ajovy 3 months of use. Ifthere is no benefit, we could try propranolol (though her orthostatic symptoms with verapamil would suggest starting at a low dose). Return in 1 year for seizures. TIME: Total time with patient was 30 minutes with >50% spent in counseling. documented in this encounter Plan of Treatment Scheduled Referrals Name Type Priority Associated Diagnoses Order S [facility] Neu[facility] office Outpatient Referral Routine Epilepsy Seizure Not Expected: visit (clinic) Intractable Without 2021 Status Epilepticus (Approxim ate), (HCC) Expires: Migraine With Aura 4 Without Headache documented as of this encounter Visit Diagnoses Diagnosis Migraine With Aura Without Headache - Pr imary Epilepsy Seizure Not Intractable Without Status Epilepticus (HCC) documented in this encounter Care Teams Perioperative Manager Relationship Specialty Start Date End Date Matheus Feliciano M.B.B.S., M.D. PCP - General Family Medicine 01/09/[address] [place] [phone] documented as of this encounter
--- OUTSIDE RECORDS SUMMARY | 2022-04-10 14:54 | XMS_ITS | Encounter Summary ---
:1980 Author Organization [facility] Address [address] [place] [address] Care Team Providers Name Role Phone Matheus Feliciano M.D. Primary Care Provider [phone] Reason for Visit Reason Comments Med Refill Encounter Details Date Type Department Care Team Description 2020 Refill Department of Neurology in Donis Lancaster M.D. Med Refill [place], [place] [address] [facility] [address] [place] [address] [place] [address] [phone] Social History Tobacco Use Types Packs/Day Years [...] or relatives? How often do you attend druze or Never 2021 adventist services? 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 PCP - General Family Medicine 01/09/[address] [place] [address] [place] [phone] documented as of this encounter
--- OUTSIDE RECORDS SUMMARY | 2022-04-10 14:54 | XMS_ITS | Encounter Summary ---
:1980 Author Organization [facility] Address [address] [place] [address] Care Team Providers Name Role Phone Matheus Feliciano M.D. Primary Care Provider [phone] Encounter Details Date Type Department Care Team Description 01/18/2021 Clinical Communication Department of Urology Don Mcneill in [facility] PAT Gan, R.NRafal [place] [address] [place] [phone] Social History Tobacco Use Types Packs/Day Years [...] do you attend uatsdin or Never 2021 orthodoxy services? 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 - 01/18/2021 4:39 PM CDT Patient notified of response message. Verbalized understanding. Telephone Encounter - Sushila Mcneill APRN, C.N.P. - 01/18/2021 4:02 PM CDT Yes, she can take Trospium and Flomax together. The Flomax helps to dilate the ureter so the stone has more room to pass. documented in this encounter Plan of Treatment Not on filedocumented as of this encounter Visit Diagnoses Not on filedocumented in this encounter Care Teams Gang Ripsaw Operator Relationship Specialty Start Date End Date Matheus Feliciano M.B.B.S., M.D. PCP - General Family Medicine 01/09/[address] [place] [address] [place] [phone] documented as of this encounter
--- OUTSIDE RECORDS SUMMARY | 2022-04-10 14:54 | XMS_ITS | Encounter Summary ---
:1980 Author Organization [facility] Address [address] [place] [address] Care Team Providers Name Role Phone Matheus Feliciano M.D. Primary Care Provider [phone] Reason for Visit Reason Comments COVID Inquiry Encounter Details Date Type Department Care Team Description 01/16/2021 Clinical Communication Department of [facility] Matheus Feliciano Medicine, Prabhu Parmar, Clinic, in [place] [address] [facility] [address] [place] [address] [phone] Social History Tobacco Use Types Packs/Day Years [...] do you attend gnosticist or Never 2021 yarsanism services? 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, route encounter to the correct testing pool. documented in this encounter Plan of Treatment Not on filedocumented as of this encounter Visit Diagnoses Not on filedocumented in this encounter Care Teams Humanities Professor Relationship Specialty Start Date End Date Matheus Feliciano M.B.BZan, Jose. PCP - General Family Medicine 01/09/[address] [place], [place] [address], [place] [phone] documented as of this encounter
--- OUTSIDE RECORDS SUMMARY | 2022-04-10 14:54 | XMS_ITS | Encounter Summary ---
:1980 Author [address] [facility] Address [address] [place] [address] Care Team Providers Name Role Phone Matheus Feliciano M.D. Primary Care Provider [phone] Encounter Details Date Type Department Care Team Description 01/17/2021 Hospital Encounter Department of Altrichter, Nephroli thiasis; Laboratory Medicine in Jose Farah Leukocytosis [place], [place] [address] [place] [address] [phone] Social History Tobacco Use Types Packs/Day Years [...] or relatives? How often do you attend mormonism or Never 2021 uatsdin services? 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 mg(1,250mg) -400 unit tablet cyanocobalamin (VITAMIN ADMINISTER 1 ML IN 3 mL 02/202003/29/2021 B12) 1,000 mcg/mL THE MUSCLE 1 [...] a day. HYDROcodone-acetaminophe Take 1-2 tablets by 20 tablet 0 01/29/2021 n (NORCO) 5-325 mg per mouth every [...] hr capsule mg total) by mouth daily. topiramate (TOPAMAX) 100 Take 1 tablet (100 [...] Procedure Name Priority Date/Time Associated Comments Diagnosis BACTERIAL CULTURE, Routine 01/17/2021 12:07 Nephrolithia sis Results for this AEROBIC + SUSC, URINE PM CDT Leukocytosis proced ure are in the results section. URINALYSIS WITH Routine 01/17/2021 12:07 Nephrolithiasis Results for this MICROSCOPIC PM CDT Leukocytosis procedure are i n the results section. documented in this encounter Results (ABNORMAL) Bacterial Culture, Aerobic [...] Organization Address City/State/ZIP Code Phon e Number [facility]- [facility] [place] [address] [facility] [place] [address] System in [place] [address] [place] [address] (ABNORMAL) Urinalysis with Microscopic: Urine, Midstream (01/17/2021 [...] 8.0 01/17/2021 12:59 PM CDT FB60 Specific Mobile 1.015 1.001 - 1.035 01/17/2021 12:59 PM [...] Organization Address City/State/ZIP Code Phon e Number [address] [place] [address] [facility] [place] [address] System [address] documented in this encounter Visit Diagnoses Diagnosis Nephrolithiasis Leukocytosis documented in this encounter Care Teams Metal Annealer Relationship Specialty Start Date End Date Matheus Feliciano M.B.B.S., M.D. PCP - General Family Medicine 01/09/[address] [place] [address] [place] [phone] documented as of this encounter
--- OUTSIDE RECORDS SUMMARY | 2022-04-10 14:55 | XMS_ITS | Encounter Summary ---
:1980 Author Organization [facility] Address [address] [place] [address] Care Team Providers Name Role Phone Matheus Feliciano M.D. Primary Care Provider [phone] Encounter Details Date Type Department Care Team Description 09/14/2020 Hospital Encounter Department of Brigette Cardona, Preoper ative Exam Laboratory Medicine in [address] [phone] Social History Tobacco Use Types Packs/Day Years [...] or relatives? How often do you attend bahai or Never 2021 synagogue services? 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 documented in this encounter Results Hemoglobin (09/14/2020 12:35 PM GEOSPATIAL SCIENTIST) athologist Signature Hemoglobin 14.0 11.6 - 15.0 09/14/2020 FB60 g/dL 1:02 PM GEOSPATIAL SCIENTIST Specimen Anatomical Collection Method Collection Time Receive d Time (Source) Location / / Volume Laterality Blood (Blood, 09/14/2020 12:35 09/14/2020 Venous) PM GEOSPATIAL SCIENTIST 12:42 PM GEOSPATIAL SCIENTIST Brigette Cardona APRN, C.N.P. LAB BLOOD ADD-ON Performing Organization Address City/State/ZIP Code Phon e Number [address] [place] [address] [facility] [place] [address] System in [address] documented in this encounter Visit Diagnoses Diagnosis Preoperative Exam documented in this encounter Care Teams Laboratory Technician Relationship Specialty Start Date End Date Matheus Feliciano M.B.B.S., M.D. PCP - General Family Medicine 01/09/[address] [place] [phone] documented as of this encounter
--- OUTSIDE RECORDS SUMMARY | 2022-04-10 14:55 | XMS_ITS | Encounter Summary ---
:1980 Author Organization [facility] Address [address] [place] [address] Care Team Providers Name Role Phone Matheus Feliciano M.D. Primary Care Provider [phone] Encounter Details Date Type Department Care Team Description 07/17/2020 Hospital Encounter Department of Khushboo Tilley Laboratory Medicine in Jose Far[place], [place] [address] [place] [phone] Social History Tobacco Use Types Packs/Day Years [...] do you attend episcopal or Never 2021 restorationist services? 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 0 09/14/2020 120-180 mg capsule doxylamine (UNISOM) 25 Take 50 mg by [...] 07/13/2020 1 09/17/2020 40 mg EC tablet potassium chloride TAKE 1 TABLET BY 0 03/13/2020 09/06/2020 (KLOR-CON M) 10 mEq ER MOUTH ONCE DAILY tablet WITH BREAKFAST sulfamethoxazole-trimeth Take 1 tablet by 14 tablet 0 06/2109/12/2020 oprim (BACTRIM DS) mouth 2 (two) times 800-160 mg per tablet a day. SUMAtriptan (IMITREX) as needed. 0 03/10/2018 100 mg tablet topiramate (TOPAMAX) 100 Take 1 tablet (100 90 tablet 3 2020 mg tabletIndications: mg total) by mouth Migraine Headache at bedtime. ZOLMitriptan (ZOMIG) 5 Take by mouth as 0 06/24/2021 mg tablet needed. documented as of this encounter Plan of Treatment Not on filedocumented as of this encounter Procedures Procedure Name Priority Date/Time Associated Diagnosis Comme nts CYTOLOGY NON-HOSPITALIST PROGRAM DIRECTOR Routine 07/17/2020 12:20 PM Hematuria Gross R esults for this (SCHEDULED) BEATER ROOM SUPERVISOR procedure are i n the results section. documented in this encounter Results Cytology Non-HOSPITALIST PROGRAM DIRECTOR (Scheduled) (07/17/2020 12:20 PM BEATER ROOM SUPERVISOR) Component Value Ref Test Analysis Performed At [facility] Range Method Time Signature 07/18/2020 [facility] 9:15 AM BEATER ROOM SUPERVISOR Fixative yes 07/18/2020 [facility] 9:15 AM BEATER ROOM SUPERVISOR Report Pratibha SHAJI Sanchez. Ch.B. 07/18/2020 [facility] electronically I verify that I have examined all relevant slides/ma terials 9:15 AM BEATER ROOM SUPERVISOR signed by for the specimen(s) and rendered or confirmed the diagnosis. Gross Description Received 20 07/18/2020 [facility] ml of yellow 9:15 AM BEATER ROOM SUPERVISOR alcohol fixed fluid. Collection voided 07/18/2020 [facility] Procedure 9:15 AM BEATER ROOM SUPERVISOR Source A. Urine, 07/18/2020 [facility] Midstream, 9:15 AM BEATER ROOM SUPERVISOR voided Clinical History R31.0 07/18/2020 [facility] 9:15 AM BEATER ROOM SUPERVISOR Interpretation A. Urine, Midstream, voided (cytospin): Negative for 07/18/2020 [facility] High-Grade Urothelial Carcinoma. 9:15 AM BEATER ROOM SUPERVISOR Specimen Anatomical Collection Method Collection Time Receive d Time (Source) Location / / Volume Laterality Varies 07/17/2020 12:20 07/18/2020 6:35 PM BEATER ROOM SUPERVISOR AM BEATER ROOM SUPERVISOR Narrative This result has an attachment that is no t available. Gagan Tilley M.D. LAB SURG PATH ORDERABLES Performing Organization Address City/[facility]/ZIP Code Phon e Number [facility]- [address] [place] [address] [facility] [place] [address] [facility] Cytology [facility] documented in this encounter Visit Diagnoses Diagnosis Hematuria Gross documented in this encounter Care Teams Air Carrier Operations Inspector Relationship Specialty Start Date End Date Matheus Feliciano M.B.BRafalSJose Lyles. PCP - General Family Medicine 01/09/[address] [place] [phone] documented as of this encounter
--- OUTSIDE RECORDS SUMMARY | 2022-04-10 14:55 | XMS_ITS | Encounter Summary ---
:1980 Author Organization [facility] Address [address] [place] [address] Care Team Providers Name Role Phone Matheus Feliciano M.D. Primary Care Provider [phone] Encounter Details Date Type Department Care Team Description 07/25/2020 Orders Only Department of Urology in Rebel Rodriguez M.D. [place], [place] [address] [place] [phone] (Wo rk) Social History Tobacco Use Types [...] or relatives? How often do you attend synagogue or Never 2021 methodist services? 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 PCP - General Family Medicine 01/09/[address] [place] [address] [place] [phone] documented as of this encounter
--- OUTSIDE RECORDS SUMMARY | 2022-04-10 14:55 | XMS_ITS | Encounter Summary ---
:1980 Author Organization [facility] Address [address] [place] [address] Care Team Providers Name Role Phone Matheus Feliciano M.D. Primary Care Provider [phone] Reason for Referral MRI/CAT/PET Scan (Routine) - Closed Specialty Diagnoses / Procedures Referred By Contact Refer red To Contact Radiology Diagnoses Hematuria Gagan De La Rosa M.D. 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 [facility] [place] [facility] Procedures CT Urogram without and with IV Contrast CT Urogram with IV Contrast MI CT ABD&PELVIS W CNTRST MI CT ABD&PELVIS WO/W CNTRST [address] [place] [phone] Referral ID Status Reason Start Date Expiration Date Visits Requ ested Visits Authorized [id number] Closed 07/12/2020 07/12/2021 1 1 Encounter Details Date Type Department Care Team Description 08/22/2020 Hospital Encounter Department of Radiology Sheryl Tilley in Yevgeniy Chaparro M.D. [address] [place] [phone] [place] [phone] [address] Social History Tobacco Use Types Packs/Day [...] or relatives? How often do you attend holiness or Never 2021 mu-ism services? 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 documented in this encounter Results CT Urogram without and with IV Contrast (08/22/2020 11:00 AM INSIDE SALES RECRUITER) Anatomical Region Laterality Modality Abdomen, Pelvis, Abdominal RST LOS, Abdominal ARZ LOS, N/A Computed Tomography Abdominal FLA LOS Specimen (Source) Anatomical Collection Method Collection Time Re ceived Time Location / / Volume Laterality 08/22/2020 11:22 AM INSIDE SALES RECRUITER Impressions 08/22/2020 11:26 AM INSIDE SALES RECRUITER 1. ??Circumferential prominent urinary bladder wall thickening, correlation for possible cystitis suggested with follow- up if indicated. 2. ??Small nonobstructing bilateral sanjuanita l calculi. Narrative 08/22/2020 11:26 AM INSIDE SALES RECRUITER EXAM: CT UROGRAM WITHOUT AND WITH IV CONTRAST COMPARISON: None FINDINGS: Cholecystectomy. Small splenic calcifications consistent with old granulomatous disease. Left abdominal an d pelvic postoperative changes. No bowel obstruction. No pneumatosis or pneumoper itoneum. Negative adrenal glands and pancreas. Normal caliber abdominal aorta . No pathologically enlarged abdominal or pelvic lymph nodes. Mild urinary blad main wall thickening, potentially from incomplete distention though clinical an d laboratory correlation is suggested to exclude cystitis. 2 mm nonobstructing inferior right renal calculus (series 2 image #241). 4 mm nonobstructing inferior left renal calcu salo. No hydronephrosis. No ureteral or urinary bladder calculi. No suspicious e nhancing renal parenchymal or urothelial lesion. Unremarkable bilateral renal con trast excretion and partial opacification of the bilateral ureters. Moderate L5-S1 disc degeneration. Procedure Note Rick Sun M.D. - 08/22/2020Formattin g of this note might be different from the original. EXAM: CT UROGRAM WITHOUT AND WITH IV CON TRAST COMPARISON: None FINDINGS: Cholecystectomy. Small splenic calcifications consistent with old granulomatous disease. Left abdominal an d pelvic postoperative changes. No bowel obstruction. No pneumatosis or pneumoper itoneum. Negative adrenal glands and pancreas. Normal caliber abdominal aorta . No pathologically enlarged abdominal or pelvic lymph nodes. Mild urinary blad main wall thickening, potentially from incomplete distention though clinical an d laboratory correlation is suggested to exclude cystitis. 2 mm nonobstructing inferior right renal calculus (series 2 image #241). 4 mm nonobstructing inferior left renal calcu salo. No hydronephrosis. No ureteral or urinary bladder calculi. No suspicious e nhancing renal parenchymal or urothelial lesion. Unremarkable bilateral renal con trast excretion and partial opacification of the bilateral ureters. Moderate L5-S1 disc degeneration. IMPRESSION: 1. Circumferential prominent urinary favian dder wall thickening, correlation for possible cystitis suggested with follow- up if indicated. 2. Small nonobstructing bilateral renal calculi. Gagan VALDOVINOS CT PROCEDURES documented in this encounter Visit Diagnoses Diagnosis Hematuria Gross documented in this encounter Administered Medications Inactive Administered Medications - up to 3 most recent administrations Medication Order MAR Action Action Date Dose Rate Site iohexoL 300 mg iodine/mL solution Given 08/22/2020 10:48 AM INSIDE SALES RECRUITER 140 mL 1-200 mL (OMNIPAQUE) 1-200 mL, intravenous, Once in imaging, contrast, Starting on Thu08/22/20 at 1112, For 1 dose, If administered oral then dilute in 900 mL water sodium chloride 0.9 % flush 200 mL Given 08/22/2020 10:48 AM INSIDE SALES RECRUITER 190 mL 200 mL, intravenous, Once in imaging, line care, Starting on Thu08/22/20 at 1114, For 1 dose sodium chloride 0.9 % injection 10 mL Given 08/22/2020 10:48 AM INSIDE SALES RECRUITER 10 mL 10 mL, intravenous, Once in imaging, line care, Starting on Thu08/22/20 at 1112, For 1 dose documented in this encounter Care Teams Mortgage Funder Relationship Specialty Start Date End Date Matheus Feliciano M.B.BRafalSRafal, MDonald. PCP - General Family Medicine 01/09/[address] [place] [address] [place] [phone] documented as of this encounter
--- OUTSIDE RECORDS SUMMARY | 2022-04-10 14:55 | XMS_ITS | Encounter Summary ---
:1980 Author Organization [facility] Address [address] [place] [address] Care Team Providers Name Role Phone Matheus Feliciano M.D. Primary Care Provider [phone] Reason for Visit Reason Comments Headache Encounter Details Date Type Department Care Team Description 08/23/2020 [facility], [facility], [facility] in [address] [address] Social History Tobacco Use Types Packs/Day [...] do you attend quaker or Never 2021 orthodoxy services? 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 female calling regarding Headache. Assessment Concern: Patient had urogram with IV contrast done yesterday and developed headache yesterday and continued throughout today. 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 Rates her pain 8/10. She has history of migraines and this is different than her migraines. She reports that she is nauseated as well. She reports that she is trying to keep up on her fluids. Present for: 30 hours Home cares tried: None Calling to request: Advice The recommended disposition is Go to ED Now (or PCP Triage). Reviewed with teleEM provider, she should try migraine medication and/or Tylenol/Ibuprofen before she comes into the ED. Patient voiced understanding and agrees with plan. Reason for Disposition ??? [1] SEVERE headache AND [2] sudden-onset (i.e., reaching maximum intensity within seconds) Protocols used: [id number] Care Advice Patient/Caregiver understands and will follow care advice?: Yes, able to teach back REST: Lie down in a dark quiet place and relax until feeling better. LOCAL COLD: Apply a cold wet washcloth or cold pack to the forehead for 20 minutes STRETCHING: Stretch and massage any tight neck muscles. CALL BACK IF: * You become worse. COVID-19 Nurse Line Screening ASSESSMENT Combo COVID + Upper Respiratory Infection (URI) Screening Select the most appropriate pathway: : Adult Have you had close contact* with a person who has a LABORATORY CONFIRMED case of COVID-19 in the past 14 days?: No (Continue Screening) In the last 48 hours, have you had a fever* OR symptoms that are unrelated to a preexisting illness?: New nausea, New headache(headache and nausea started yesterday) Have you received a COVID-19 vaccine in the last 72 hours? : No vaccine received (Continue Screening) Do you have any of the following urgent symptoms?: No urgent symptoms noted (Continue Screening) Do you have any of the following respiratory syntonical virus (RSV) complications? : No complications noted (Continue Screening) Are all the following symptoms present: temperature of 100.0 degrees Fahrenheit or greater, muscle aches or headache AND a cough?: No all symptoms are not present (End Screening) Symptom Onset Date of symptom onset: 08/22/20 Testing Recommendation Endpoint Is testing recommended? : Recommended to test PLAN Endpoint recommendation: Screening positive, testing indicated, advised to be swabbed for COVID-19 and Influenza, sent to Please avoid using public transportation per CDC recommendation. If you do not have personal transportation please self-quarantine until a personal transportation option is available. and states that they will take her to non [place] [facility] to have it donetonight. Care Points: -Wash hands frequently with soap and water for at least 20 seconds -If soap and water are not available, use a hand in home sales consultant -Avoid touching your eyes, nose and mouth. -Clean and disinfect high-touch surfaces routinely. -Wear a mask over your nose and mouth. A cloth face cover is not a substitute for social distancing -Continue to keep about 6 feet between yourself and others. -Avoid public areas and public transportation. -Find new ways to connect with family and friends, get support and share feelings. -Seek emergent care if any of the following occur Trouble breathing Bluish lips or face Persistent pain or pressure in the chest New confusion or inability to rouse. -Notify your regular care provider of any new or worsening symptoms. Symptomatic Carepoints: Separate yourself from others and stay in a specific sick room if able. Avoid sharing personal or household items. Rest. Take Acetaminophen/Ibuprofen as needed to control fever and muscles aches. Use over the counter medications as needed for other symptoms. Education: Patient/caregiver able to teach back Patient agreeable to plan of care: Yes The following references were used: [facility] novel coronavirus (COVID- 19) resources E REDUCTION COORDINATOR documented in this encounter Plan of Treatment Not on filedocumented as of this encounter Visit Diagnoses Not on filedocumented in this encounter Care Teams Dock Grader Relationship Specialty Start Date End Date Matheus Feliciano M.B.B.S., M.D. PCP - General Family Medicine 01/09/[address] [place] [address] [place] [address] documented as of this encounter
--- OUTSIDE RECORDS SUMMARY | 2022-04-10 14:55 | XMS_ITS | Encounter Summary ---
:1980 Author Organization [facility] Address [address] [place] [address] Care Team Providers Name Role Phone Matheus Feliciano M.D. Primary Care Provider [phone] Reason for Visit Reason Comments COVID Inquiry Encounter Details Date Type Department Care Team Description 07/12/2020 Clinical Communication Department of [facility] Matheus Feliciano Medicine, [facility], Clinic, in [place] [address] [facility] [address] [place] [phone] [phone] Social History Tobacco Use Types Packs/Day Years [...] do you attend denominational or Never 2021 anglican services? 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 documented as of this encounter Miscellaneous Notes Telephone Encounter - Say Acosta - 07/12/2020 4:55 PM CST COVID DOS/PASS Screening What is the patient requesting?: Additional Appointments (Continue with screening) Have you tested positive for COVID-19 in the last 30 days (20 days for ARZ) or do you have a pendingCOVID-19 test because you had symptoms?: No (Continue with screening) Have you had close contact* with a person who has a LABORATORY CONFIRMED case of COVID-19 in the past 14 days?: No (Continue with screening) When is the patient asking to be scheduled F2F?: Less than 30 days in RST, SWWI, SEMN (Continue screening) In the past 14 days are any of the following symptoms new to you and not related to an existing health condition?: No symptoms noted (End screening - schedule as appropriate) Plan: Endpoint recommendation: Followed regional [facility]TG *Reminder if sending patient for testing in [facility] or [facility], an email notification is required. ERAGE PURCHASE AND SALE CLERK documented in this encounter Plan of Treatment Not on filedocumented as of this encounter Visit Diagnoses Not on filedocumented in this encounter Care Teams Customer Service Sales Associate Relationship Specialty Start Date End Date Matheus Feliciano M.B.B.S., M.D. PCP - General Family Medicine 01/09/[address] [place] [address] [place] [phone] documented as of this encounter
--- OUTSIDE RECORDS SUMMARY | 2022-04-10 14:55 | XMS_ITS | Encounter Summary ---
:1980 Author Organization [facility] Address [address] [place] [address] Care Team Providers Name Role Phone Matheus Feliciano M.D. Primary Care Provider [phone] Encounter Details Date Type Department Care Team Description 09/10/2020 Orders Only Pharmacy Prior Auth RO Matheus Feliciano I., Ana Pelletier [address] [place] [phone] (Wo rk) Social History Tobacco Use [...] do you attend advent or Never 2021 catholic services? 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 Social Media & Mobile Manager Relationship Specialty Start Date End Date Matheus Feliciano M.B.B.S., M.D. PCP - General Family Medicine 01/09/[address] [place] [address] [place] [phone] documented as of this encounter
--- OUTSIDE RECORDS SUMMARY | 2022-04-10 14:55 | XMS_ITS | Encounter Summary ---
:1980 Author Organization [facility] Address [address] [place] [address] Care Team Providers Name Role Phone Matheus Feliciano M.D. Primary Care Provider [phone] Reason for Visit Reason Comments Blood in Urine Urinary Frequency Outpatient (Routine) - Closed Specialty Diagnoses / Procedures Referred By Contact Refer red To Contact Urology Diagnoses Hematuria Gross Urgency Urinary Gagan Tilley M.D. [facility] Region [address] [place] [address] Referral ID Status Reason Start Date Expiration Date Visits Requ ested Visits Authorized [id number] Closed 06/26/2020 06/26/2021 1 1 Encounter Details Date Type Department Care Team Description 09/06/2020 Comprehensive Visit Department of Urology Tan Bernstein ex, Hematuria Gross; in [place] Urgency Urinary [place] [address] [facility] [place] [phone] Social History Tobacco Use Types Packs/Day [...] do you attend faith or Never 2021 nondenominational services? 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/2021 7:35 PM SUPERVISORY AIR INTERCEPT CONTROLLER documented as of this encounter Last Filed Vital Signs Vital Sign Reading Time Taken Comments Blood Pressure - - Pulse 96 09/06/2020 3:45 PM SUPERVISORY AIR INTERCEPT CONTROLLER Temperature 36.5 ??C (97.7 ??F) 09/06/2020 3:45 PM SUPERVISORY AIR INTERCEPT CONTROLLER Respiratory Rate - - Oxygen Saturation 100% 09/06/2020 3:45 PM SUPERVISORY AIR INTERCEPT CONTROLLER Inhaled Oxygen Concentration - - Weight - - Height - - Body Mass Index - - documented in this encounter Consult Notes Rebel Bernstein M.D. - 09/06/2020 3:30 PM CST CHIEF COMPLAINT/REASON FOR VISIT Hematuria and lower urinary tract symptoms REFERRING PROVIDER Gagan Tilley MD HISTORY OF PRESENT ILLNESS This is a 39-year-old female whom I am asked to see. For the last 6 weeks she has had intermittent gross painless hematuria. For the last few years she has frequency, urgency and urge incontinence. Shedoes have a few trips to the bathroom at night, but usually wakes up before she has the urge to go the bathroom. She has not had any physical trauma to explain the hematuria. She has not passed any kidney stones. She has had a gastric bypass. When she has urgency, she usually has several seconds to get to the bathroom. Approximately once every 1-2 weeks she will have an episode of complete urge urinary incontinence. PAST MEDICAL HISTORY Past Medical History: Diagnosis Date ??? Attention Deficit Disorder Inattentive ??? Dependence Drug Opioid (HCC) ??? Depression Anxiety ??? Epilepsy And Recurrent Seizures NOS ??? Gastric Bypass Status Post ??? Hypothyroidism ??? Migraine Headache ??? Obesity Body Mass Index 30-39.9 Adult ??? Osteoarthritis ??? Pain Low Back Chronic ??? Tobacco Use quit in 1997 Past Surgical History: Procedure Laterality Date ??? APPENDECTOMY 11/13/2003 ??? SECTION 2006 ??? SECTION 11/13/2007 ??? CHOLECYSTECTOMY 11/13/2003 ??? GASTRIC BYPASS 04/2011 ??? HYSTERECTOMY ABDOMINAL WITH SALPINGO - OOPHORECTOMY 10/10/2010 Abdominal supracervical hysterectomy and right salpingo-oophorectomy ??? TONSILLECTOMY 11/13/2007 ??? TRANSECTION OF FALLOPIAN TUBE BY VAGINAL APPROACH 11/13/2007 FAMILY HISTORY Family History Problem Relation Age of Onset ??? Arthritis Mother ??? Rheum arthritis Mother ??? Colon polyps Mother 65 precancerous ??? Vasculitis Mother 65 IgA ??? Hypertension Father ??? Diabetes Father ??? Hyperlipidemia Father ??? PTSD Father ??? Tuberculosis Father ??? Heart attack Grandfather SOCIAL HISTORY Social History Socioeconomic History ??? Marital status: Spouse name: Not on file ??? Number of children: Not on file ??? Years of education: Not on file ??? Highest education level: 8th grade Occupational History ??? Not on file Social Needs ??? Financial resource strain: Not hard at all ??? Food insecurity Worry: Never true Inability: Never true ??? Transportation needs Medical: No Non-medical: No Tobacco Use ??? Smoking status: Former Smoker Types: Cigarettes ??? Smokeless tobacco: Never Used Substance and Sexual Activity ??? Alcohol use: No Frequency: Never ??? Drug use: No ??? Sexual activity: Defer Lifestyle ??? Physical activity Days per week: 3 days Minutes per session: 30 min ??? Stress: Not at all Relationships ??? Social connections Talks on phone: More than three times a week Gets together: More than three times a week Attends nondenominational service: Never Active member of club or organization: Yes Attends meetings of clubs or organizations: More than 4 times per year Relationship status: ??? Intimate partner violence Fear of current or ex partner: No Emotionally abused: No Physically abused: No Forced sexual activity: No Other Topics Concern ??? Not on file Social History Narrative ??? Not on file REVIEW OF SYSTEMS see personal history form dated September 06, 2020 MEDICATIONS Current Outpatient Medications Medication Sig Dispense Refill ??? acetaminophen (TYLENOL) 325 mg tablet Take 650 mg by mouth. ??? adapalene (DIFFERIN) 0.1 % cream Apply topically at bedtime. ??? ascorbic acid,vitamin C,,bulk, 100 % powder Take by mouth daily. ??? atomoxetine (STRATTERA) 80 mg capsule Take 1 capsule (80 mg total) by mouth daily. 90 capsule 1 ??? busPIRone (BUSPAR) 30 mg tablet TAKE [...] 1 TIME A MONTH3 mL 3 ??? cyclobenzaprine (FLEXERIL) 5 mg tablet Take 5-10 mg by mouth. ??? docosahexaenoic acid-epa 120-180 mg capsule Take 1 g by mouth. ??? doxylamine (UNISOM) 25 mg tablet Take [...] ODT (ZOFRAN-ODT) 4 mg disintegrating tablet Take 4 mg by mouth. ??? polyethylene glycol (MIRALAX) 17 gram powder packet Take 1 packet (17 g total) by mouth daily. Dissolve each 17 g dose in 240 mLs (8 ounces) of beverage. 90 packet 3 ??? promethazine (PHENERGAN) 25 mg tablet Take 25 mg by mouth as needed. ??? SUMAtriptan (IMITREX) 100 mg tablet as needed. ??? syringe with needle, safety (BD Integra Syringe) 3 mL 25 gauge x 5/8 syringe Use 1 syringe monthly to inject vitamin B12 subcutaneously. 12 Syringe 0 ??? topiramate (TOPAMAX) 100 mg tablet Take 1 tablet (100 mg total) by mouth at bedtime. 90 tablet 3 ??? ZOLMitriptan (ZOMIG) 5 mg tablet Take by mouth as needed. ??? pantoprazole (PROTONIX) 40 mg EC tablet ??? sulfamethoxazole-trimethoprim (BACTRIM DS) 800-160 mg per tablet Take 1 tablet by mouth 2 (two) times a day. (Patient not taking: Reported on 09/06/2020 ) 14 tablet 0 ??? trospium (SANCTURA) 20 mg tablet Take 1 tablet (20 mg total) by mouth 2 (two) times a day beforebreakfast and dinner. 120 tablet 1 No current facility-administered medications for this visit. ALLERGIES Allergies Allergen Reactions ??? Cephalexin Other (see comments) VITAL SIGNS Pulse 96 Temp 36.5 ??C (Temporal) SpO2 100% PHYSICAL EXAMINATION General: Well-nourished, well-developed adult female in no apparent distress, no communication barriers. Head: No abnormality of appearance. No facial abnormalities. No neck masses. Thyroid: No thyroid enlargement. Heart: Regular rate and rhythm. Abdominal aorta is not palpable. No peripheral cyanosis or edema. Lungs: Normal respiratory movements. No shortness of breath. Abdomen: Flat and nondistended. No guarding. No tenderness. No ascites. No hepatosplenomegaly. Kidneys are not palpable. Bladder size is normal. There are no ventral hernias. There are no inguinal hernias. Evidence of prior surgery. Spine: No spinal tenderness. No costovertebral angle tenderness. Pelvic exam: Normal external genitalia. I can not palpate the urethra, it is located somewhat posteriorly. I am unable to pass the cystoscope. Suspect meatal stenosis Gait: Normal. DIAGNOSTICS Bladder scan postvoid residual 12 mL Urinalysis dated June 21, 2020 is negative for blood, infection or bacteria. Urine culture of the same date is no growth. Urine cytology dated July 17, [address] urogram dated August 22, 2020, films and report are reviewed. She has 1 small nonobstructing stone in each kidney, in the lower pole. No solid renal masses. No defects of filling. No hydronephrosisor hydroureter. Nonspecific bladder wall thickening. Cystoscopy was attempted today. Unable to visualize the meatus, unable to pass the scope likely related to stenosis. IMPRESSION/REPORT/PLAN 1. Hematuria, negative CT urogram (other than 2 small stones) and urine cytology. 2. Urge urinary incontinence associated with frequency, urgency and nocturia. Trial of trospium 20 mg twice daily. Return to clinic in 1 month, with urinalysis with microscopy, urine cytology and urine culture. If the urinalysis or cytology or abnormal, would like to proceed with cystoscopy, urethral dilation and proceed with indicated in the operating room at a later date. Electronically signed by: Rebel Bernstein M.D. 09/06/20 5:19 PM SUPERVISORY AIR INTERCEPT CONTROLLER RVISORY AIR INTERCEPT CONTROLLER documented in this encounter Plan of Treatment Not on filedocumented as of this encounter Results Cytology Non-BIOLOGICAL PHOTOGRAPHER (Scheduled) (10/08/2020 12:52 PM SUPERVISORY AIR INTERCEPT CONTROLLER) Component Value Ref Test Analysis Performed At [facility] Range Method Time Signature 10/09/2020 [facility] 11:49 AM SUPERVISORY AIR INTERCEPT CONTROLLER Fixative 50% 10/09/2020 [facility] 11:49 AM SUPERVISORY AIR INTERCEPT CONTROLLER Report Irena Bhandari MD 10/09/2020 [facility] electronically I verify that I have examined all relevant slides/ma terials 11:49 AM signed by for the specimen(s) and rendered or confirmed the diagnosis. SUPERVISORY AIR INTERCEPT CONTROLLER Gross Description 100 ml of 10/09/2020 [facility] clear yellow 11:49 AM fluid SUPERVISORY AIR INTERCEPT CONTROLLER received. Collection clean void 10/09/2020 [facility] Procedure 11:49 AM SUPERVISORY AIR INTERCEPT CONTROLLER Source A. Urine, 10/09/2020 [facility] Clean Catch, 11:49 AM voided SUPERVISORY AIR INTERCEPT CONTROLLER Clinical History unknown 10/09/2020 [facility] 11:49 AM SUPERVISORY AIR INTERCEPT CONTROLLER Interpretation A. 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 11:49 A M SUPERVISORY AIR INTERCEPT CONTROLLER Specimen Anatomical Collection Method Collection Time Receive d Time (Source) Location / / Volume Laterality Varies (Urine, 10/08/2020 12:52 8:14 Clean Catch) PM SUPERVISORY AIR INTERCEPT CONTROLLER AM SUPERVISORY AIR INTERCEPT CONTROLLER Narrative This result has an attachment that is no t available. Rebel Bernstein M.D. LAB SURG PATH ORDERABLES Performing Organization Address City/State/ZIP Code Phon e Number [facility]- [facility] [place] [address] [facility] [place] [address] [facility] [address] [place] [address] Bacterial Culture, Aerobic + Susc, Urine (10/08/2020 12:52 PM SUPERVISORY AIR INTERCEPT CONTROLLER) [facility] Method Time Signature Urine Culture No growth 10/09/2020 [facility] after 1 day 4:39 PM SUPERVISORY AIR INTERCEPT CONTROLLER of incubation. Specimen Anatomical Collection Method Collection Time Receive d Time (Source) Location / / Volume Laterality Urine (Urine, 10/08/2020 12:52 10/08/2020 6:59 Midstream) PM SUPERVISORY AIR INTERCEPT CONTROLLER PM SUPERVISORY AIR INTERCEPT CONTROLLER Comment: Specimen Source Site: Urine eRbel Bernstein M.D. LAB MICROBIOLOGY - GENERAL O RDERABLES Performing Organization Address City/State/ZIP Code Phon e Number [facility]- [address] [place] [address] [place] [address] System in [address] documented in this encounter Visit Diagnoses Diagnosis Hematuria Gross Urgency Urinary documented in this encounter Care Teams Cinder Crane Operator Relationship Specialty Start Date End Date Matheus Feliciano M.B.BRafalSJose Lyles. PCP - General Family Medicine 01/09/[address] [place] [phone] documented as of this encounter
--- OUTSIDE RECORDS SUMMARY | 2022-04-10 14:55 | XMS_ITS | Encounter Summary ---
:1980 Author Organization [facility] Address [address] [place] [address] Care Team Providers Name Role Phone Matheus Feliciano M.D. Primary Care Provider [phone] Encounter Details Date Type Department Care Team Description 07/17/2020 Hospital Encounter Department of Laboratory Gagan Tilley, Hypokalemia Medicine in [place] [address] [place] [phone] Social History Tobacco Use Types Packs/Day Years [...] or relatives? How often do you attend baptism or Never 2021 shinto services? 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 documented in this encounter Results (ABNORMAL) Basic Metabolic Panel (07/17/2020 12:35 PM FRUIT OR NUT CROPS FARM MANAGER) P athologist Signature Potassium, P 4.5 3.6 - 5.2 07/17/2020 [facility] mmol/L 5:02 PM FRUIT OR NUT CROPS FARM MANAGER Sodium, P 139 135 - 145 07/17/2020 [facility] mmol/L 5:02 PM FRUIT OR NUT CROPS FARM MANAGER Chloride, P 106 98 - 107 07/17/2020 [facility] mmol/L 5:02 PM FRUIT OR NUT CROPS FARM MANAGER Bicarbonate, P 26 22 - 29 07/17/2020 [facility] mmol/L 5:02 PM FRUIT OR NUT CROPS FARM MANAGER Anion Gap, P 7 7 - 15 07/17/2020 [facility] 5:02 PM FRUIT OR NUT CROPS FARM MANAGER BUN (Blood Urea 5 (L) 6 - 21 07/17/2020 [facility] Nitrogen), P mg/dL 5:02 PM FRUIT OR NUT CROPS FARM MANAGER Creatinine 0.81 0.59 - 07/17/2020 [facility] 1.04 mg/dL 5:02 PM FRUIT OR NUT CROPS FARM MANAGER eGFR-Black/Afric >90 >=60 07/17/2020 [facility] an Montenegrin mL/min/BSA 5:02 PM FRUIT OR NUT CROPS FARM MANAGER Comment: ----ADDITIONAL INFORMATION---- Estimated GFR calculated using the 2009 CKD_EPI creatinine equation. eGFR Non-Black/ >90 >=60 mL/min/BSA 07/17/2020 5:02 PM FRUIT OR NUT CROPS FARM MANAGER [facility] Comment: ----ADDITIONAL INFORMATION---- Estimated GFR calculated using the 2009 CKD_EPI creatinine equation. Calcium, Total, P 9.0 8.6 - 10.0 mg/dL 07/17/2020 5:02 PM FRUIT OR NUT CROPS FARM MANAGER [facility] Glucose, P 72 70 - 140 mg/dL 07/17/2020 5:02 PM FRUIT OR NUT CROPS FARM MANAGER O INDIGO Specimen Anatomical Collection Method Collection Time Receive d Time (Source) Location / / Volume Laterality Blood (Blood, 07/17/2020 12:35 07/17/2020 4:47 Venous) PM FRUIT OR NUT CROPS FARM MANAGER PM FRUIT OR NUT CROPS FARM MANAGER Gagan Tilley M.D. LAB BLOOD ADD-ON Performing Organization Address City/State/ZIP Code Phon e Number [facility]- [address] [place] [address] [facility] [place] [address] System in [place] [address] documented in this encounter Visit Diagnoses Diagnosis Hypokalemia documented in this encounter Care Teams Elementary Esl Teacher Relationship Specialty Start Date End Date Matheus Feliciano M.B.BRafalSaRfal, MDonald. PCP - General Family Medicine 01/09/[address] [place] [address] [place] Velez [phone] documented as of this encounter
--- OUTSIDE RECORDS SUMMARY | 2022-04-10 14:55 | XMS_ITS | Encounter Summary ---
:[address] [facility] Address [address] [place] [address] Care Team Providers Name Role Phone Matheus Feliciano M.D. Primary Care Provider [phone] Encounter Details Date Type Department Care Team Description 07/03/2020 Clinical Communication Department of Matheus [facility], Prabhu Parmar, Clinic, in [place] [address] [phone] Social History Tobacco Use Types Packs/Day Years [...] do you attend scientologist or Never 2021 islam services? 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 PCP - General Family Medicine 01/09/[address] [place] [address] [place] [phone] documented as of this encounter
--- OUTSIDE RECORDS SUMMARY | 2022-04-10 14:55 | XMS_ITS | Encounter Summary ---
:1980 Author Organization [facility] Address [address] [place] [address] Care Team Providers Name Role Phone Matheus Feliciano M.D. Primary Care Provider [phone] Encounter Details Date Type Department Care Team Description 09/14/2020 Orders Only [facility] Matheus Issa I., [address] [place] [address] [facility] [phone] [place] [address] (Wo rk) Social History Tobacco [...] do you attend presybeterian or Never 2021 yazidi services? Do you [...] place to sleep or slept in a snf (including now)? Education Answer Date Recorded What is the highest level of school you have completed or th e 8th grade 01/09/2020 highest degree you have received? Sex Assigned at Date Recorded Female 09/01/2021 7:35 PM CHUTE LOADER documented as of this encounter Plan of Treatment Not on filedocumented as of this encounter Visit Diagnoses Not on filedocumented in this encounter Additional Health Concerns Infection Onset Date Last Indicated Resolved Time COVID19 Pending 09/15/2020 09/16/2020 09/17/2020 4:27 AM CHUTE LOADER documented as of this encounter Care Teams Envelope Stamping Machine Operator Relationship Specialty Start Date End Date Matheus Feliciano M.B.B.S., M.D. PCP - General Family Medicine 01/09/[address] [place] [address] [place] Velez [phone] documented as of this encounter
--- OUTSIDE RECORDS SUMMARY | 2022-04-10 14:55 | XMS_ITS | Encounter Summary ---
:1980 Author Organization [facility] Address [address] [place] [address] Care Team Providers Name Role Phone Matheus Feliciano M.D. Primary Care Provider [phone] Reason for Visit MRI/CAT/PET Scan (Routine) - Closed Specialty Diagnoses / Procedures Referred By Contact Refer red To Contact Radiology Diagnoses Hematuria Gross Gagan Tilley M.D. [facility] Region Procedures CT Urogram without and with IV Contrast CT Urogram with IV Contrast AL CT ABD&PELVIS W CNTRST AL CT ABD&PELVIS WO/W CNTRST [address] [place] [phone] Referral ID Status Reason Start Date Expiration Date Visits Requ ested Visits Authorized [id number] Closed 07/12/2020 07/12/2021 1 1 Encounter Details Date Type Department Care Team Description 07/23/2020 Hospital Encounter Department of Maurizio Tilley (Patient: Radiology in [place] Request) [place] [address] [place], [place] [phone] Social History Tobacco Use Types Packs/Day Years [...] do you attend bahai or Never 2021 faith services? 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 cetirizine (ZyrTEC) 10 Take 1 tablet by 0 11/10/2 017 mg tablet mouth 2 (two) times [...] ADMINISTER 1 ML IN 3 mL 3 0802/202003/29/2021 B12) 1,000 mcg/mL THE MUSCLE 1 TIME [...] filedocumented in this encounter Care Teams Front End Application Developer Relationship Specialty Start Date End Date Matheus Feliciano M.B.B.S., Jose. PCP - General Family Medicine 01/09/[address] [place] [address] [place] [phone] documented as of this encounter
--- OUTSIDE RECORDS SUMMARY | 2022-04-10 14:55 | XMS_ITS | Encounter Summary ---
:1980 Author Organization [facility] Address [address] [place] [address] Care Team Providers Name Role Phone Matheus Feliciano M.D. Primary Care Provider [phone] Encounter Details Date Type Department Care Team Description 09/16/2020 Lab Department of [facility] Sushila Mcneill Stenosis Meatal; Medicine, [facility] Shruthi [facility], in [address] [place] [phone] [place] [address] [place] [address] [facility] [phone] Social History Tobacco Use Types Packs/Day Years [...] do you attend restoration or Never 2021 presybeterian services? 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/2021 7:35 PM TRAFFIC ENGINEER documented as of this encounter Plan of Treatment Not on filedocumented as of this encounter Procedures Procedure Name Priority Date/Time Associated Diagnosis Comme nts SARS CORONAVIRUS-2 Routine 09/16/2020 4:43 PM Stenosis M eatal Results for this RNA, V TRAFFIC ENGINEER Hematuria procedure are i n the results section. documented in this encounter Results SARS Coronavirus-2 RNA, V Asymptomatic (09/16/2020 4:43 PM TRAFFIC ENGINEER) [facility] gist Method Time Signature SARS-CoV-2 Swab, 09/17/2020 [facility] Specimen Nasopharynx 4:27 AM TRAFFIC ENGINEER Source SARS CoV-2 Undetected Undetected 09/17/2020 [facility] RNA, TMA 4:27 AM TRAFFIC ENGINEER Comment: SARS-CoV-2 RNA absent. This result does not rule out COVID-19 in the patient, as the sensitivity of the test depends o n the timing of the specimen collection and the quality of the specim en. Result should be correlated with patient's history and clinical presentat ion. ----ADDITIONAL INFORMATION---- This molecular amplification test was pe rformed using the Aptima SARS-CoV-2 assay ([employer] on the [employer]s tem under emergency use authorization (EUA) by the U.S. Food and Drug Administ ration. Fact sheets for this EUA assay can be fo und at the following links: For Healthcare Providers: https://www.fd a.gov/media/702675/download For Patients: https://www.fda.gov/media/ 880368/download Specimen Anatomical Collection Method Collection Time Receive d Time (Source) Location / / Volume Laterality Varies 09/16/2020 4:43 PM (Nasopharynx) TRAFFIC ENGINEER 10:53 PM TRAFFIC ENGINEER Sushila Mcneill APRN, R.N. LAB MICROBIOLOGY - GENERA L ORDERABLES Performing Organization Address City/State/ZIP Code Phon e Number [facility]- [address] [place] [address] [place] [address] System in [place] [address] [place] [address] documented in this encounter Visit Diagnoses Diagnosis Stenosis Meatal Hematuria documented in this encounter Additional Health Concerns Infection Onset Date Last Indicated Resolved Time COVID19 Pending 09/15/2020 09/16/2020 09/17/2020 4:27 AM TRAFFIC ENGINEER documented as of this encounter Care Teams Archeologist Relationship Specialty Start Date End Date Matheus Feliciano M.B.BRafalSJose Lyles. PCP - General Family Medicine 01/09/[address] [place] [phone] documented as of this encounter
--- OUTSIDE RECORDS SUMMARY | 2022-04-10 14:55 | XMS_ITS | Encounter Summary ---
:1980 Author Organization [facility] Address [address] [place] [address] Care Team Providers Name Role Phone Matheus Feliciano M.D. Primary Care Provider [phone] Reason for Referral Outpatient (Routine) - Closed Specialty Diagnoses / Procedures Referred By Contact Refer red To Contact Diagnoses Preoperative Exam Seizure (HCC) Brigette Cardona APRN, C.N.P. [facility] Procedures ECG 12 [address] [place] [address] Referral ID Status Reason Start Date Expiration Date Visits Requ ested Visits Authorized [id number] Closed 09/14/2020 09/14/2021 1 1 CAST ENGINEER Reason for Visit Reason Comments Pre-op Exam scope to look at bladder. Outpatient (Routine) - Closed Specialty Diagnoses / Procedures Referred By Contact Refer red To Contact Family Medicine Diagnoses Stenosis Meatal Hematuria Sushila Mcneill [facility] DRIVE IN TELLER, R.N. [address] [place] [address] Referral ID Status Reason Start Date Expiration Date Visits Requ ested Visits Authorized [id number] Closed 09/11/2020 09/11/2021 1 1 Encounter Details Date Type Department Care Team Description 09/14/2020 Office Visit Department of Family Brigette Cardona, Preope rative Exam (Primary Dx); Medicine, [place] PAT, C.N.P. Seizure (HCC); Clinic, in [place], Attent ion Deficit Hyperactive Disorder; [place] Stenosis Meatal; [address] [facility] [place] [address] Social History Tobacco Use Types Packs/Day [...] do you attend gnosticism or Never 2021 zoroastrianism services? 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/2021 7:35 PM DIE CAST ENGINEER documented as of this encounter Last Filed Vital Signs Vital Sign Reading Time Taken Comments Blood Pressure 103/66 09/14/2020 11:34 AM DIE CAST ENGINEER Pulse 81 09/14/2020 11:34 AM DIE CAST ENGINEER Temperature 36.5 ??C (97.7 ??F) 09/14/2020 11:34 AM DIE CAST ENGINEER Respiratory Rate 16 09/14/2020 11:34 AM DIE CAST ENGINEER Oxygen Saturation - - Inhaled Oxygen Concentration - - Weight 67.6 kg (149 lb 0.5 oz) 09/14/2020 11:34 AM DIE CAST ENGINEER Height 164 cm (5' 4.57) 09/14/2020 11:34 AM DIE CAST ENGINEER Body Mass Index 25.13 09/14/2020 11:34 AM DIE CAST ENGINEER documented in this encounter Patient Instructions Patient InstructionsBrigette Cardona APRN, C.N.P. - 09/14/2020 11:30 AM DIE CAST ENGINEER Preop Instructions: No food or drink after midnight the morning of the surgery. Do not use any aspirin, nonsteroidal anti-inflammatory medications (ibuprofen, Advil, Motrin, Aleve)or fish oil 10 days prior to your procedure. Nothing to eat or drink after midnight the night beforeyour procedure. Restart all medications after your procedure. You will be called 1-2 days prior to your procedure to let you know what time to be at the hospital. Medications: Patient should take regular medications the morning of surgery unless otherwise instructed per discussion in clinic. CAST ENGINEER documented in this encounter H&P Notes Brigette Cardona APRN, C.N.P. - 09/14/2020 11:30 AM CST SUBJECTIVE CHIEF COMPLAINT/REASON FOR VISIT Proposed surgery date: 09/19/20 Surgeon: Dr. Bernstein Proposed surgery: 1. URETHRAL DILATION 2. DIAGNOSTIC CYSTOSCOPY [facility] HISTORY OF PRESENT ILLNESS Gricelda Roberts is a 39 y.o. who presents to the clinic today for a preoperative evaluation for the above mentioned procedure. I am asked by Dr. Bernstein to assess whether Gricelda Roberts is an adequate candidate for anesthesia. Primary Physician: Matheus Feliciano M.D. Type of Anesthesia Anticipated: To be determined History of anesthesia complications: NONE History of abnormal bleeding: NONE History of blood transfusions: NONE Patient has a Health Care Directive or Living Will: NONE REVIEW OF SYSTEMS Please see HPI for pertinent positives, otherwise rest of ROS negative. Cardiac risk factors: None. Pulmonary risk factors: None. Sleep Apnea: None. Steroid use within the past 12 months: No Diabetes: None. Bleeding risk factors: None. Anesthesia reactions: None. Need for prophylactic antibiotics: None. Beta rishi: None. CURRENT MEDICATIONS Current Outpatient Medications Medication Sig Dispense Refill ??? acetaminophen (TYLENOL) 325 mg tablet Take 650 mg by mouth as needed. ??? adapalene (DIFFERIN) 0.1 % cream Apply topically at bedtime. ??? atomoxetine (STRATTERA) 80 mg capsule Take [...] 5 mg tablet Take 5-10 mg by mouth as needed. ??? doxylamine (UNISOM) 25 mg tablet Take [...] mg disintegrating tablet Take 4 mg by mouth as needed. ??? pantoprazole (PROTONIX) 40 mg EC tablet daily. ??? polyethylene glycol (MIRALAX) 17 gram powder [...] mouth at bedtime. 90 tablet 3 ??? trospium (SANCTURA) 20 mg tablet Take 1 tablet (20 mg total) by mouth 2 (two) times a day beforebreakfast and dinner. 120 tablet 1 ??? ZOLMitriptan (ZOMIG) 5 mg tablet Take by mouth as needed. ??? ascorbic acid,vitamin C,,bulk, 100 % powder Take by mouth daily. No current facility-administered medications for this visit. ALLERGIES/CONTRAINDICATIONS Allergies Allergen Reactions ??? Cephalexin Other (see comments) MEDICAL HISTORY Past Medical History: Diagnosis Date ??? Dependence Drug Opioid (HCC) ??? Depression Anxiety ??? Epilepsy And Recurrent Seizures NOS ??? Gastric Bypass Status Post ??? Hypothyroidism ??? Migraine Headache ??? Morbid Obesity (HCC) 06/11/2010 ??? Obesity Body Mass Index 30-39.9 Adult ??? Osteoarthritis ??? Pain Low Back Chronic ??? Tobacco Use quit in 1997 SURGICAL HISTORY Past Surgical History: Procedure Laterality Date ??? APPENDECTOMY 11/13/2003 ??? SECTION 2006 ??? SECTION 11/13/2007 ??? CHOLECYSTECTOMY 11/13/2003 ??? GASTRIC BYPASS 04/2011 ??? HYSTERECTOMY ABDOMINAL WITH SALPINGO - OOPHORECTOMY 10/10/2010 Abdominal supracervical hysterectomy and right salpingo-oophorectomy ??? TONSILLECTOMY 11/13/2007 ??? TRANSECTION OF FALLOPIAN TUBE BY VAGINAL APPROACH 11/13/2007 SOCIAL HISTORY She is and has 2 teenagers. She is a former smoker. No alcohol or illicit drug use. FAMILY HISTORY Family History Problem Relation Age of Onset ??? Arthritis Mother ??? Rheum arthritis Mother ??? Colon polyps Mother 65 precancerous ??? Vasculitis Mother 65 IgA ??? Hypertension Father ??? Diabetes Father ??? Hyperlipidemia Father ??? PTSD Father ??? Tuberculosis Father ??? Heart attack Grandfather OBJECTIVE VITAL SIGNS Vitals: 09/14/20 1134 BP: 103/66 BP Location: Left arm Patient Position: Sitting Cuff Size: Regular Pulse: 81 Resp: 16 Temp: 36.5 ??C TempSrc: Temporal Weight: 67.6 kg Height: 164 cm Body mass index is 25.13 kg/m??. PHYSICAL EXAMINATION General: Patient is well-appearing, well-developed, well-nourished in no acute distress. Skin: No significant rash or lesion. Head: Normocephalic, atraumatic. Eyes: Sclerae are clear. ENT: TMs clear bilaterally. Nose clear. Mouth reveals moist mucous membranes. Oropharynx clear. No erythema or exudate. Mallampati class 1. Neck supple. No lymphadenopathy or thyromegaly. Heart: Regular rhythm and rate. No murmurs, gallops, or rubs. Lungs: Clear to auscultation bilaterally. No crackles or wheezes. Abdomen: Soft, nontender, and nondistended. No masses or hepatosplenomegaly. Extremities: No cyanosis, clubbing, or edema. Good distal pulses. Neuro: Alert and oriented x3. Cranial nerves II-XII intact. Muscle strength 5/5 of upper and lower extremities bilaterally. DTRs of upper and lower extremities are equal bilaterally. Romberg is negative. No pronator drift. Nonfocal neurological exam. DIAGNOSTICS Hemoglobin 11.6 - 15.0 g/dL 14.0 EKG pending. RISK ASSESSMENT Cardiovascular Risk: -Patient is able to perform ADL's without assistance and able to participate in strenous activities without chest pain. -The patient does not have chest pain with exertion . -Patient does not have a history of congestive heart failure. -The patient does not have a history of stroke and does not havea history of valvular disease. Pulmonary Risk: -In terms of risk factors for pulmonary complication, the patient has no risk factors. Perioperative Complications: -The patient does not have a history of bleeding or clotting problems in the past. -The patient does not have a family history of any anesthesia or surgical complications. ASSESSMENT / PLAN #1 Preoperative evaluation for surgery The patient is scheduled for a low risk procedure. She is a low risk candidate for the upcoming procedure. ASA 2 - Patient with mild systemic disease with no functional limitations. Stop Bang Total Score: 1 Patient is me dically optimized for the upcoming surgery. She will proceed with the upcoming surgeryas planned. Instructions: GENERAL PREOP INSTRUCTIONS: No food or drink after midnight the morning of the surgery. Do not use any aspirin, nonsteroidal anti-inflammatory medications (ibuprofen, Advil, Motrin, Aleve)or fish oil 10 days prior to your procedure. Nothing to eat or drink after midnight the night beforeyour procedure. Restart all medications after your procedure. You will be called 1-2 days prior to your procedure to let you know what time to be at the hospital. All questions were answered. The patient verbalized understanding and agreement with the above plan. CAST ENGINEER documented in this encounter Plan of Treatment Not on filedocumented as of this encounter Procedures Procedure Name Priority Date/Time Associated Diagnosis Comme nts ECG Routine 09/14/2020 12:33 PM Preoperative Exam Results for this DIE CAST ENGINEER Seizure (HCC) procedure are in the results section. documented in this encounter Results Hemoglobin (09/14/2020 12:35 PM DIE CAST ENGINEER) athologist Signature Hemoglobin 14.0 11.6 - 15.0 09/14/2020 FB60 g/dL 1:02 PM DIE CAST ENGINEER Specimen Anatomical Collection Method Collection Time Receive d Time (Source) Location / / Volume Laterality Blood (Blood, 09/14/2020 12:35 09/14/2020 Venous) PM DIE CAST ENGINEER 12:42 PM DIE CAST ENGINEER Brigette Jenny Brendan STEWART, C.N.P. LAB BLOOD ADD-ON Performing Organization Address City/State/ZIP Code Phon e Number [facility] [address] [place] [address] [facility] [address]60 [place] [address] System in [place] [address] ECG 12 Lead (09/14/2020 12:33 PM DIE CAST ENGINEER) P athologist Signature Ventricular Rate 58 BPM MUSE ECG/Min LA Interval 128 ms MUSE QRSD Interval 90 ms MUSE QT Interval 460 ms MUSE QTC Interval 451 ms MUSE P [place] 38 degrees MUSE R [place] 49 degrees MUSE T Wave [place] 56 degrees MUSE Specimen Anatomical Collection Method Collection Time Receive d Time (Source) Location / / Volume Laterality 09/14/2020 12:33 09/14/2020 3:05 PM DIE CAST ENGINEER PM DIE CAST ENGINEER Impressions MUSE - 10/10/2020 2:04 PM DIE CAST ENGINEER Sinus bradycardia Otherwise normal ECG No previous ECGs available Reviewed by TRISH Katz Narrative This result has an attachment that is no t available. Procedure Note Vj Nguyen Jr., M.D. - 10/10/2020For matting of this note might be different from the original. IMPRESSION: Sinus bradycardia Otherwise normal ECG No previous ECGs available Reviewed by TRISH Katz Brigette Cardona APRN, C.N.P. ECG ORDERABLES Performing Organization Address City/State/ZIP Code Phon e Number MUSE MUSE NA documented in this encounter Visit Diagnoses Diagnosis Preoperative Exam - Primary Seizure (HCC) Attention Deficit Hyperactive Disorder Stenosis Meatal Hematuria documented in this encounter Care Teams Marketing Program Coordinator Relationship Specialty Start Date End Date Matheus Feliciano M.B.B.S., M.D. PCP - General Family Medicine 01/09/20 [address] [facility] [place] [phone] documented as of this encounter
--- OUTSIDE RECORDS SUMMARY | 2022-04-10 14:55 | XMS_ITS | Encounter Summary ---
:1980 Author Organization [facility] Address [address] [place] [address] Care Team Providers Name Role Phone Matheus Feliciano M.D. Primary Care Provider [phone] Reason for Visit Reason Comments Medication Question Encounter Details Date Type Department Care Team Description 09/06/2020 Clinical Communication Department of Sonia [facility] Question [place] , [place], [place] [address] [place] [phone] Social History Tobacco Use Types Packs/Day Years [...] do you attend jainism or Never 2021 episcopalian services? 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 - 09/06/2020 6:18 PM CST Patient called urology to inform that Rx that Dr. Bernstein has sent in needs a PA. Patient informed pharmacy should initiate PA request and [facility] will receive their portion to fill out. Patient was alsogiven PA phone number to inquire about a status in the near future, verbalized understanding. EL BUILDER documented in this encounter Plan of Treatment Not on filedocumented as of this encounter Visit Diagnoses Not on filedocumented in this encounter Care Teams Military Analyst Relationship Specialty Start Date End Date Matheus Feliciano M.B.BRafalSRafal, Jose. PCP - General Family Medicine 01/09/[address] [place] [phone] documented as of this encounter
--- OUTSIDE RECORDS SUMMARY | 2022-04-10 14:55 | XMS_ITS | Encounter Summary ---
:1980 Author Organization [facility] Address [address] [place] [address] Care Team Providers Name Role Phone Matheus Feliciano M.D. Primary Care Provider [phone] Reason for Visit Reason Comments SURGERY DATE Encounter Details Date Type Department Care Team Description 09/11/2020 Clinical Communication Department of [facility] Matheus Feliciano SURGERY DATE Medicine, Prabhu Parmar, Clinic, in [place] [address] [facility] [address] [place] [address] [phone] Social History Tobacco Use Types Packs/Day Years [...] do you attend restorationism or Never 2021 adventism services? 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/2021 7:35 PM MANIFEST/ORDER ORGANIZER PRINT ORDERS documented as of this encounter Miscellaneous Notes Telephone Encounter - Sonia Bustamante R.N. - 09/11/2020 2:52 PM CST Noted in desk liaison planner. FEST/ORDER ORGANIZER PRINT ORDERS Telephone Encounter - Arlyn Recio - 09/11/2020 2:35 PM CST SURGEON: DR. CARBAJAL ASSIST: NONE PRE-OP DATE: 09-12-[address] SOTO NASAL SWAB: 09-16-20 SURGERY DATE: 09-19-20 DIAGNOSIS: MEATAL STENOSIS, HEMATURIA PROCEDURE: 1. URETHRAL SILATION 2. DIAGNOSTIC CYSTOSCOPY 3. PROCEED INDICATED. ANESTHESIA: [facility] WILL CALL WITH ARRIVAL TIME. FEST/ORDER ORGANIZER PRINT ORDERS documented in this encounter Plan of Treatment Not on filedocumented as of this encounter Visit Diagnoses Not on filedocumented in this encounter Care Teams Beer Coil Cleaner Relationship Specialty Start Date End Date Matheus Feliciano M.B.B.S. MDonald. PCP - General Family Medicine 01/09/[address] [place] [address] [place] [phone] documented as of this encounter
--- OUTSIDE RECORDS SUMMARY | 2022-04-10 14:55 | XMS_ITS | Encounter Summary ---
:1980 Author Organization [facility] Address [address] [place] [address] Care Team Providers Name Role Phone Matheus Feliciano M.D. Primary Care Provider [phone] Encounter Details Date Type Department Care Team Description 09/13/2020 Orders Only [facility] Matheus Issa I., [address] [place] [address] [address] [facility] [phone] [place] [address] (Wo rk) Social History Tobacco [...] do you attend amish or Never 2021 muslim services? 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/2021 7:35 PM WASTEWATER TREATMENT PLANT ATTENDANT documented as of this encounter Plan of Treatment Not on filedocumented as of this encounter Visit Diagnoses Not on filedocumented in this encounter Additional Health Concerns Infection Onset Date Last Indicated Resolved Time COVID19 Pending 09/15/2020 09/16/2020 09/17/2020 4:27 AM WASTEWATER TREATMENT PLANT ATTENDANT documented as of this encounter Care Teams Cleaner Furniture Relationship Specialty Start Date End Date Matheus Feliciano M.B.B.S., M.D. PCP - General Family Medicine 01/09/[address] [place] [address] [place] [phone] documented as of this encounter
--- OUTSIDE RECORDS SUMMARY | 2022-04-10 14:55 | XMS_ITS | Encounter Summary ---
:1980 Author Organization [facility] Address [address] [place] [address] Care Team Providers Name Role Phone Matheus Feliciano M.D. Primary Care Provider [phone] Encounter Details Date Type Department Care Team Description 07/12/2020 Clinical Communication Department of Matheus [facility], Prabhu Parmar, Clinic, in [place] [address] [phone] [phone] Social History Tobacco Use Types Packs/Day Years [...] or relatives? How often do you attend catholic or Never 2021 bahai services? Do you belong to any clubs or Yes 09/02/2021 organizations such as catholic groups, unions, fraternal or athletic groups, or [...] at Date Recorded Female 09/01/2021 7:35 PM CENTRIFUGAL CASTING MACHINE OPERATOR documented as of this encounter Miscellaneous Notes Telephone Encounter - Gricelda Roach - 07/12/2020 11:[address] questionnaire completed and faxed. RIFUGAL CASTING MACHINE OPERATOR Telephone Encounter - Ariane Self - 07/12/2020 11:03 AM CST Patient has CT order in queue. Please fill out this CT questionnaire and fax to [phone]. Thank you. RIFUGAL CASTING MACHINE OPERATOR documented in this encounter Plan of Treatment Not on filedocumented as of this encounter Visit Diagnoses Not on filedocumented in this encounter Care Teams Residential Real Estate Assistant Relationship Specialty Start Date End Date Matheus Feliciano M.B.B.S., MDoanld. PCP - General Family Medicine 01/09/[address] [place] [address] [place] [phone] documented as of this encounter
--- OUTSIDE RECORDS SUMMARY | 2022-04-10 14:55 | XMS_ITS | Encounter Summary ---
:1980 [address] [facility] Address [address] [place] [address] Care Team Providers Name Role Phone Matheus Feliciano M.D. Primary Care Provider [phone] Encounter Details Date Type Department Care Team Description 09/10/2020 Clinical Communication Department of Urology Rebel Bernstein in [place], [place] M.D. [address] [place] [address] [place], [place] [phone] [address] Social History Tobacco Use Types Packs/Day [...] do you attend gnosticism or Never 2021 anglican services? 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/2021 7:35 PM COIL CONNECTOR documented as of this encounter Miscellaneous Notes Telephone Encounter - Ela Fajardo L.P.N. - 09/11/2020 1:28 PM CST Spoke with patient today in regards to her message yesterday for proceeding with surgery with Dr Bernstein. Patient is aware of the details of needing to be scheduled for pre-op, COVID testing, procedure dateand post op. Patient is aware scheduling will call her to get these scheduled. Patient is also inquiring about a PA for the medication Dr. Bernstein ordered and this was sent from her pharmacy about 3 days ago. Nurse stated she will look into this for her as she has not noticed anything at this time. Nurse did send a PA to the [facility] PA pool today to see about getting this medication prior auth for patient. CONNECTOR Telephone Encounter - Sonia Bustamante R.NRafal - 09/11/2020 8:32 AM CST Orders have been placed by Provider Charito recreation therapy director aware. CONNECTOR Telephone Encounter - Ela Fajardo L.P.N. - 09/10/2020 5:06 PM CST Patient left message today in regards to wanting to proceed with procedure discussed with a Dr Bernstein at appointment on 09/06/20. Patient was seen for Hematuria and was unable to have a cystoscopy that day. Please see office note for further details. Dr Bernstein: Patient would like to procedure with procedure recommended. Thanks CONNECTOR documented in this encounter Plan of Treatment Not on filedocumented as of this encounter Visit Diagnoses Not on filedocumented in this encounter Care Teams Dependency Program Director Relationship Specialty Start Date End Date Matheus Feliciano M.B.B.S., M.D. PCP - General Family Medicine 01/09/[address] [place] [phone] documented as of this encounter
--- OUTSIDE RECORDS SUMMARY | 2022-04-10 14:55 | XMS_ITS | Encounter Summary ---
:1980 Author Organization [facility] Address [address] [place] [address] Care Team Providers Name Role Phone Matheus Feliciano M.D. Primary Care Provider [phone] Encounter Details Date Type Department Care Team Description 09/12/2020 Orders Only Pharmacy Prior Auth Aury Arellano [phone] Social History Tobacco Use Types Packs/Day Years [...] or relatives? How often do you attend anabaptist or Never 2021 hoahaoism services? Do you belong to any clubs or Yes 09/02/2021 organizations such as anabaptist groups, unions, fraternal or athletic groups, or [...] at Date Recorded Female 09/01/2021 7:35 PM EXTERNAL AUDITOR documented as of this encounter Plan of Treatment Not on filedocumented as of this encounter Visit Diagnoses Not on filedocumented in this encounter Additional Health Concerns Infection Onset Date Last Indicated Resolved Time COVID19 Pending 09/15/2020 09/16/2020 09/17/2020 4:27 AM EXTERNAL AUDITOR documented as of this encounter Care Teams Stumper Feller Relationship Specialty Start Date End Date Matheus Feliciano M.B.B.S., M.D. PCP - General Family Medicine 01/09/[address] [place] [address] [place] [phone] documented as of this encounter
--- OUTSIDE RECORDS SUMMARY | 2022-04-10 14:55 | XMS_ITS | Encounter Summary ---
:1980 Author Organization [facility] Address [address] [place] [address] Care Team Providers Name Role Phone Matheus Feliciano M.D. Primary Care Provider [phone] Encounter Details Date Type Department Care Team Description 09/06/2020 Ancillary Procedure Department of Urology Social History Tobacco Use Types Packs/Day Years [...] do you attend episcopalian or Never 2021 voodoo services? 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/2021 7:35 PM PHARMACY INTAKE COORDINATOR documented as of this encounter Plan of Treatment Not on filedocumented as of this encounter Procedures Procedure Name Priority Date/Time Associated Diagnosis Comme nts UROLOGY IMAGE EXAM Routine 09/06/2020 12:00 PM Re sults for this PHARMACY INTAKE COORDINATOR procedure are i n the results section. documented in this encounter Results CYSTOSCOPY-Urology Image Exam (09/06/2020 12:00 PM PHARMACY INTAKE COORDINATOR) Specimen (Source) Anatomical Location Collection Method / Collectio n Time Received Time / Laterality Volume Narrative [facility] - 09/10/2020 11:06 AM PHARMACY INTAKE COORDINATOR This order has been created and auto-finalized [...] on filedocumented in this encounter Care Teams Fan Mail Clerk Relationship Specialty Start Date End Date Matheus Feliciano M.B.B.S., M.D. PCP - General Family Medicine 01/09/[address] [place] [address] [place] [phone] documented as of this encounter
--- OUTSIDE RECORDS SUMMARY | 2022-04-10 14:55 | XMS_ITS | Encounter Summary ---
:1980 Author Organization [facility] Address [address] [place] [address] Care Team Providers Name Role Phone Matheus Feliciano M.D. Primary Care Provider [phone] Encounter Details Date Type Department Care Team Description 09/17/2020 Orders Only Pharmacy Prior Auth Leonarda Montero [phone] Social History Tobacco Use Types Packs/Day Years [...] do you attend mormon or Never 2021 advent services? 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/2021 7:35 PM SOFTWARE DEPLOYMENT ENGINEER documented as of this encounter Plan of Treatment Not on filedocumented as of this encounter Visit Diagnoses Not on filedocumented in this encounter Additional Health Concerns Infection Onset Date Last Indicated Resolved Time COVID19 Pending 09/15/2020 09/16/2020 09/17/2020 4:27 AM SOFTWARE DEPLOYMENT ENGINEER documented as of this encounter Care Teams Teleprinter Installer Relationship Specialty Start Date End Date Matheus Feliciano M.B.B.S., M.D. PCP - General Family Medicine 01/09/[address] [place] [address] [place] [address] documented as of this encounter
--- OUTSIDE RECORDS SUMMARY | 2022-04-10 14:55 | XMS_ITS | Encounter Summary ---
:1980 Author Organization [facility] Address [address] [place] [address] Care Team Providers Name Role Phone Matheus Feliciano M.D. Primary Care Provider [phone] Reason for Referral MRI/CAT/PET Scan (Routine) - Closed Specialty Diagnoses / Procedures Referred By Contact Refer red To Contact Radiology Diagnoses Hematuria Gagan De La Rosa M.D. [facility] Region Procedures CT Urogram without and with IV Contrast CT Urogram with IV Contrast CT CT ABD&PELVIS W CNTRST CT CT ABD&PELVIS WO/W CNTRST [address] [place] [address] Referral ID Status Reason Start Date Expiration Date Visits Requ ested Visits Authorized [id number] Closed 07/12/2020 07/12/2021 1 1 IMEDIA COORDINATOR Encounter Details Date Type Department Care Team Description 07/12/2020 Clinical Communication Department of [facility], Rishi Farah M.D. Clinic, in [place], [facility] [address] [place] [address] [address] PANKAJ SEGURA [phone] (Work) [phone] Social History Tobacco Use Types Packs/Day Years [...] do you attend baptist or Never 2021 orthodoxy services? 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 - 07/12/2020 8:30 AM MULTIMEDIA COORDINATOR Patient had a CT abdomen and pelvis at [facility] 2019. I have ordered the urine cytology in also CT urogram with contrast. IMEDIA COORDINATOR Telephone Encounter - Gagan Tilley M.D. - 07/12/2020 8:30 AM MULTIMEDIA COORDINATOR ----- Message from Sonia Bustamante R.N. sent at 07/10/2020 2:01 PM MULTIMEDIA COORDINATOR ----- Regarding: Orders needed prior to urology consult Dr. Tilley, Please place orders for a urine non charm filter operator helper cytology and CT urogram to be done prior to urology consult. Thank you,Sonia, RNUrology IMEDIA COORDINATOR documented in this encounter Plan of Treatment Not on filedocumented as of this encounter Results CT Urogram without and with IV Contrast (08/22/2020 11:00 AM MULTIMEDIA COORDINATOR) Anatomical Region Laterality Modality Abdomen, Pelvis, Abdominal RST LOS, Abdominal ARZ LOS, N/A Computed Tomography Abdominal FLA LOS Specimen (Source) Anatomical Collection Method Collection Time Re ceived Time Location / / Volume Laterality 08/22/2020 11:22 AM MULTIMEDIA COORDINATOR Impressions 08/22/2020 11:26 AM MULTIMEDIA COORDINATOR 1. ??Circumferential prominent urinary bladder wall thickening, correlation for possible cystitis suggested with follow- up if indicated. 2. ??Small nonobstructing bilateral sanjuanita l calculi. Narrative 08/22/2020 11:26 AM MULTIMEDIA COORDINATOR EXAM: CT UROGRAM WITHOUT AND WITH IV [...] 2. Small nonobstructing bilateral renal calculi. Gagan Tilley M.D. IMG CT PROCEDURES Cytology Non-OXYGEN PLANT OPERATOR (Scheduled) (07/17/2020 12:20 PM MULTIMEDIA COORDINATOR) Component Value Ref Test Analysis Performed At [facility] gist Range Method Time Signature 07/18/2020 [facility] 9:15 AM MULTIMEDIA COORDINATOR Fixative yes 07/18/2020 [facility] 9:15 AM MULTIMEDIA COORDINATOR Report Pratibha SHAJI Sanchez. Ch.B. 07/18/2020 [facility] electronically I verify that I have examined all relevant slides/ma terials 9:15 AM MULTIMEDIA COORDINATOR signed by for the specimen(s) and rendered or confirmed the diagnosis. Gross Description Received 20 07/18/2020 [facility] ml of yellow 9:15 AM MULTIMEDIA COORDINATOR alcohol fixed fluid. Collection voided 07/18/2020 [facility] Procedure 9:15 AM MULTIMEDIA COORDINATOR Source A. Urine, 07/18/2020 [facility] Midstream, 9:15 AM MULTIMEDIA COORDINATOR voided Clinical History R31.0 07/18/2020 [facility] 9:15 AM MULTIMEDIA COORDINATOR Interpretation A. Urine, Midstream, voided (cytospin): Negative for 07/18/2020 [facility] High-Grade Urothelial Carcinoma. 9:15 AM MULTIMEDIA COORDINATOR Specimen Anatomical Collection Method Collection Time Receive d Time (Source) Location / / Volume Laterality Varies 07/17/2020 12:20 07/18/2020 6:35 PM MULTIMEDIA COORDINATOR AM MULTIMEDIA COORDINATOR Narrative This result has an attachment that is no t available. Gagan Tilley M.D. LAB SURG PATH ORDERABLES Performing Organization Address City/State/ZIP Code Phon e Number [facility] [address] [place] [id number] [facility] [place] [address] [facility] [address] [facility] documented in this encounter Visit Diagnoses Diagnosis Hematuria Gross - Primary Hematuria Gross documented in this encounter Care Teams Rehab Consultant Relationship Specialty Start Date End Date Matheus Feliciano M.B.B.S., M.D. PCP - General Family Medicine 01/09/[address] [place] [phone] documented as of this encounter
--- OUTSIDE RECORDS SUMMARY | 2022-04-10 14:55 | XMS_ITS | Encounter Summary ---
:1980 Author Organization [facility] Address [address] [place] [address] Care Team Providers Name Role Phone Matheus Feliciano M.D. Primary Care Provider [phone] Reason for Visit Reason Comments Med Refill Encounter Details Date Type Department Care Team Description 07/11/2020 Refill Department of Family Medicine, Matheus Feliciano I., Med Refill [facility], in [place], [place] 300 [facility] 300 [place] [address] [place] [address] [phone] Social History Tobacco Use Types Packs/Day Years [...] or relatives? How often do you attend yarsanism or Never 2021 jewish services? 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 - 07/13/2020 9:08 AM CST Portal message sent to patient in regards to potassium chloride prescription declined by PCP. GRATION TECHNICIAN Telephone Encounter - Jayna Mckeon R.N. - 07/11/2020 3:38 PM CST Patient requesting refill of potassium chloride (Klor-Con) 10 meq. LV: 06/26/2020 LF: 03/13/2020, 30 tablets, 2 refills Pended medication. Please advise. GRATION TECHNICIAN Telephone Encounter - Lelo Mayer - 07/11/2020 3:30 PM CST Nurse review: Unable to forward request to provider; Not on med list Primary Provider: Matheus Feliciano M.D. Name of medication: Klor Con Strength: M10 ER 10MEQ tab Frequency: Take 1 tab PO once daily with breakfast Quantity: 30 Refills: Not provided Last Refill: 03/13/2020 Pharmacy: [facility] [place] GRATION TECHNICIAN documented in this encounter Plan of Treatment Not on filedocumented as of this encounter Visit Diagnoses Diagnosis Sleep Related Leg Cramps - Primary documented in this encounter Care Teams Datawarehouse Developer Relationship Specialty Start Date End Date Matheus Feliciano M.B.B.S., M.D. PCP - General Family Medicine 01/09/[address] [place] [address] PANKAJ Velez [phone] documented as of this encounter
--- OUTSIDE RECORDS SUMMARY | 2022-04-10 14:56 | XMS_ITS | Encounter Summary ---
:1980 Author Organization [facility] Address [address] [place] [address] Care Team Providers Name Role Phone Faby Feliciano M.D. Primary Care Provider [phone] Reason for Referral Outpatient (Routine) - Closed Specialty Diagnoses / Procedures Referred By Contact Refer red To Contact [facility]., [facility] [address] [place] [address] Referral ID Status Reason Start Date Expiration Date Visits Requ ested Visits Authorized [id number] Closed 04/11/2020 04/11/2021 5 5 Reason for Visit Reason Comments Follow-up Encounter Details Date Type Department Care Team Description 04/10/2020 Clinical Communication Department of [facility] Faby Feliciano Follow-up Medicine, Prabhu Parmar, [place], [place] 300 [facility] 300 [place] [phone] Social History Tobacco Use [...] do you attend buddhist or Never 2021 protestant services? 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 Addendum Note - Dragan Dias C.MMaki - 04/11/2020 3:16 PM CDT Addended by: DRAGAN DIAS on: 04/11/2020 03:16 PM Modules accepted: Orders Telephone Encounter - Faith Clayton - 04/11/2020 2:59 PM CDT Patient called back. Under Dr. Nicole patient self administered her B-12 shots. Prescriptions were sent into the [facility] pharmacy in [place]. Patient has been doing this for 7 years due to having a gastric bypass. Patient wants to continue doing this. Her insurance charges her $1 per injection doing itat home rather than a much larger amount to come into the clinic monthly. Plus [facility]. Please send prescription for 3 month to [facility]. Name of Medication: Vitamin B12 Primary Provider: Prabhu Urrutia M.D. Strength: 1000mcg/ml injection Frequency: 1x monthly Pharmacy (include location): [facility] Telephone Encounter - Dianne Roche - 04/11/2020 2:20 PM CDT Left message for the patient to call back to schedule Addendum Note - Faby Feliciano M.B.B.S., M.D. - 04/11/2020 1:17 PM CDT Addended by: FABY FELICIANO I on: 04/11/2020 01:17 PM Modules accepted: Orders Addendum Note - Olivia Barnes, RRafalNRafal - 04/11/2020 1:06 PM CDT Addended by: OLIVIA BARNES on: 04/11/2020 01:06 PM Modules accepted: Orders Telephone Encounter - Faby Feliciano M.B.B.S., M.D. - 04/11/2020 1:03 PM CDT She should come to the office. Telephone Encounter - Iraida Jane Tomas - 04/10/2020 3:47 PM CDT Reason for Communication: pt called wondering about her vitamin b12 shots. Current Can Nursing/Provider leave a detailed message?: yes Did the patient refuse triage through Nurse line? (for symptom based concerns): na Action Needed: Please call back Name of Medication (if relevant): documented in this encounter Plan of Treatment Scheduled Referrals Name Type Priority Associated Order Schedule Diagnoses Primary Care nurse Outpatient Referral Routine 5 Occurrences visit (clinic) - starting [facility]; until 09/2022 Medication injection (order medication); B12 documented as of this encounter Visit Diagnoses Not on filedocumented in this encounter Care Teams Tipple Oiler Relationship Specialty Start Date End Date Faby Feliciano M.B.B.S., M.D. PCP - General Family Medicine 01/09/[address] [place] [phone] documented as of this encounter
--- OUTSIDE RECORDS SUMMARY | 2022-04-10 14:56 | XMS_ITS | Encounter Summary ---
:1980 Author Organization [facility] Address [address] [place] [address] Care Team Providers Name Role Phone Matheus Feliciano M.D. Primary Care Provider [phone] Reason for Visit Reason Comments Pre-op Exam [facility] Apr 12 hiatal hernia Appointment Request (Routine) - Closed Specialty Diagnoses / Procedures Referred By Contact Refer red To Contact Family Medicine Referral ID Status Reason Start Date Expiration Date Visits Requ ested Visits Authorized [id number] Closed 03/27/2020 03/27/2021 1 1 Encounter Details Date Type Department Care Team Description 04/04/2020 Office Visit Department of Family Matheus Feliciano perative Exam Medicine, Negin ParmarSRafal, (Primar y Dx) Clinic, in [place] [address] [phone] Social History Tobacco Use Types Packs/Day Years [...] do you attend pentecostalism or Never 2021 yazidi services? 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 - 04/04/2020 2:15 PM CDT Adult PRE-OP Evaluation: Gricelda Roberts, 1980 presents for pre-operative evaluation and assessment as requested by Dr.Luis Joel. Proposed procedure: Hiatal Hernia Date of Surgery/ Procedure: 04/12/2020 Hospital/Surgical Facility: [facility]* Primary Physician: Prabhu Urrutia M.D. Type of [...] Problem List Diagnosis ??? Seizure (HCC) ??? Depression Anxiety ??? Attention Deficit Hyperactive Disorder ??? 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 Hypothyroidism ??? History Of Falling Current Outpatient Medications Medication Sig Dispense Refill ??? adapalene (DIFFERIN) 0.1 % cream Apply topically at bedtime. ??? ascorbic acid,vitamin C,,bulk, 100 % powder Take by mouth daily. ??? atomoxetine (STRATTERA) 80 mg capsule Take 1 capsule (80 mg total) by mouth daily. 90 capsule 1 ??? busPIRone (BUSPAR) 30 mg tablet Take 1 tablet (30 mg total) by mouth 2 (two) times a day. 180 tablet 3 ??? calcium carbonate-vitamin D3 [...] 1 TIME A MONTH3 mL 3 ??? dicyclomine (BENTYL) 10 mg capsule Take 10 mg by mouth as needed. ??? escitalopram (LEXAPRO) 20 mg tablet TAKE 1 TABLET BY MOUTH EVERY DAY 90 tablet 3 ??? fluticasone (FLONASE) 50 mcg/actuation nasal spray Administer 2 sprays into each nostril daily. 16 g 11 ??? gabapentin (NEURONTIN) 300 mg capsule TAKE 3 CAPSULES(900 MG) BY MOUTH THREE TIMES DAILY 810 capsule 3 ??? levETIRAcetam (KEPPRA) 500 mg tablet TAKE 1 TABLET BY MOUTH TWICE DAILY 180 tablet 3 ??? lidocaine (LIDODERM) 5 % Place 1 [...] g by mouth daily. 1200 mg ??? pantoprazole (PROTONIX) 40 mg EC tablet Take 40 mg by mouth at bedtime. ??? polyethylene glycol (MIRALAX) 17 gram powder packet Take 1 packet (17 g total) by mouth daily. Dissolve each 17 g dose in 240 mLs (8 ounces) of beverage. 90 packet 3 ??? potassium chloride (KLOR-CON M) 10 mEq ER tablet Take 1 tablet (10 mEq total) by mouth daily with breakfast. 30 tablet 2 ??? promethazine (PHENERGAN) 25 mg tablet Take [...] tablet Take by mouth as needed. ??? cyanocobalamin (VITAMIN B12) 1,000 mcg/mL injection Inject 1 mL (1,000 mcg total) intramuscularly every 30 (thirty) days. 3 mL 3 ??? cyclobenzaprine (FLEXERIL) 10 mg tablet Take 1 tablet (10 mg total) by mouth 3 (three) times a day as needed for muscle spasms. 30 tablet 0 ??? diclofenac sodium (VOLTAREN) 1 % gel Apply 4 g topically 4 (four) times a day as needed (Pain). (Patient not taking: Reported on 01/10/2020 ) 300 g 2 ??? docosahexaenoic acid-epa 120-180 mg capsule Take 1 g by mouth. ??? fluticasone propionate (FLONASE) 50 mcg/actuation nasal spray Administer 30 mcg into affected nostril(s). ??? fluticasone propionate (FLONASE) 50 mcg/actuation nasal spray SHAKE LIQUID AND USE 2 SPRAYS IN EACH NOSTRIL DAILY 48 g 3 ??? levothyroxine (SYNTHROID, LEVOTHROID) 75 mcg tablet TAKE 1 TABLET BY MOUTH ONCE A DAY 90 tablet 3 ??? LORazepam (ATIVAN) 1 mg tablet Take 1 tablet (1 mg total) by mouth as directed. (Patient not taking: Reported on 01/10/2020 ) 1 tablet 0 ??? vitamin-iron fumarate-FA ( MULTIVITAMINS) 28 mg iron- 800 mcg per tablet Take 1capsule by mouth 2 (two) times a day. ??? PROCTOZONE-HC 2.5 % rectal cream ??? SUMAtriptan (IMITREX) 100 mg tablet Take 1 tablet (100 mg total) by mouth once for 1 dose. 9 tablet 3 ??? syringe, disposable, 1 mL syringe 1 each every 30 (thirty) days. 25 Syringe 1 ??? syringe, disposable, 1 mL syringe 1 Device by not applicable route. ??? traZODone (DESYREL) 100 mg tablet Take 1 tablet (100 mg total) by mouth daily. 90 tablet 3 No current facility-administered medications for this visit. OTC products: None, except as noted above Allergies Allergen Reactions ??? Cephalexin Other (see comments) Latex Allergy:NO Social History Socioeconomic History ??? Marital status: Spouse name: None ??? Number of children: None ??? Years of education: None ??? Highest education level: 8th grade Occupational History ??? None Social Needs ??? Financial resource strain: Not [...] More than three times a week Attends yazidi service: Never Active member of club or organization: Yes Attends meetings of clubs or organizations: More than 4 times per year Relationship status: ??? Intimate partner violence Fear of current or ex partner: No Emotionally abused: No Physically abused: No Forced sexual activity: No Other Topics Concern ??? None Social History Narrative ??? None REVIEW OF SYSTEMS: GENERAL: No weight gain, [...] stream, no difficulty emptying bladder, no excessive urination. MUSCULOSKELETAL: No joint pain, no joint swelling, no joint stiffness, no muscle pain, no muscle stiffness, no back pain, no back stiffness. SKIN: No skin rashes, no skin sores, no change in moles. NEURO: No significant headaches, no slurred speech, no seizures, no dizziness, no loss of consciousness, no memory loss. PSYCH: No mood change. Sleep is okay. Obstructing sleep apnea screening: Stop Bang Total Score: 1 EXAM: BP 90/66 (BP Location: Left arm, Patient Position: Sitting, Cuff Size: Regular) Pulse 81 Temp 36.7 ??C (Temporal) Resp 16 Ht 162.2 cm Wt 74.7 kg SpO2 98% BMI 28.41 kg/m?? GENERAL: Patient is in no distress. Capable of full communication without difficulty. Patient is polite and cooperative. Appropriately dressed and normal hygiene. HEENT: Normocephalic. EOMI, PERRLA, Canals patent, TMs normal. Oropharynx without lesion of mucosa. Pharyngeal rises symmetrically without exudate. NECK: No nodes, no thyromegaly. No bruit auscultated. HEART: Regular rate and rhythm. No murmurs, gallops or rubs noted., LUNGS: Clear to auscultation bilaterally. No expiratory [...] or surgical complications. IMPRESSION: Reason for surgery/procedure: Hiatal Hernia The proposed surgical procedure is considered INTERMEDIATE(abdominal, most orthopedics and intrathoracic surgery) risk. For above listed surgery and anesthesia: Patient is at LOW(otherwise) risk for perioperative complications. RECOMMENDATIONS: Fasting: Must be NPO for 8 hours preoperatively. Preop Plan: Approval given to proceed with proposed procedure, without further diagnostic evaluation. Medications: Patient should take their regular medications the morning of surgery unless otherwise instructed. Hold ibuprofen for 5 days prior to surgery. Prabhu Urrutia M.D. Please contact our office if there are any further questions or information required about this patient. Miryam Matt L.PRafalN. - 04/04/2020 2:15 PM CDT Preop faxed to [facility], . documented in this encounter Plan of Treatment Not on filedocumented as of this encounter Visit Diagnoses Diagnosis Preoperative Exam - Primary documented in this encounter Care Teams University Controller Relationship Specialty Start Date End Date Matheus Feliciano M.B.B.S., M.D. PCP - General Family Medicine 01/09/[address] [place] [address] [place] [address] documented as of this encounter
--- OUTSIDE RECORDS SUMMARY | 2022-04-10 14:56 | XMS_ITS | Encounter Summary ---
:1980 Author Organization [facility] Address [address] [place] [address] Care Team Providers Name Role Phone Matheus Feliciano M.D. Primary Care Provider [phone] Reason for Visit Reason Comments COVID Inquiry Encounter Details Date Type Department Care Team Description 06/20/2020 Clinical Communication Department of [facility] Matheus Feliciano Medicine, Prabhu Parmar, Clinic, in [place] 300 [facility] [address] [place] [phone] [phone] Social History Tobacco Use Types Packs/Day Years [...] or relatives? How often do you attend samaritan or Never 2021 catholic services? 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 DISABILITIES TEACHER documented in this encounter Plan of Treatment Not on filedocumented as of this encounter Visit Diagnoses Not on filedocumented in this encounter Care Teams Balloon Tester Relationship Specialty Start Date End Date Matheus Feliciano M.B.B.S., M.D. PCP - General Family Medicine 01/09/[address] [place] [address] Faye [place]PANK[place] woody [phone] documented as of this encounter
--- OUTSIDE RECORDS SUMMARY | 2022-04-10 14:56 | XMS_ITS | Encounter Summary ---
:1980 Author Organization [facility] Address [address] [place] [address] Care Team Providers Name Role Phone Matheus Feliciano M.D. Primary Care Provider [phone] Reason for Visit Reason Comments Medication Visit est. care Appointment Request (Routine) - Closed Specialty Diagnoses / Procedures Referred By Contact Refer red To Contact Family Medicine Referral ID Status Reason Start Date Expiration Date Visits Requ ested Visits Authorized [id number] Closed 01/09/2020 01/08/2021 1 1 Encounter Details Date Type Department Care Team Description 01/10/2020 Office Visit Department of Family Matheus Feliciano Hypo thyroidism (Primary Dx); Medicine, Prabhu Parmar, Seizure (HCC); Clinic, in [place] Attention Deficit Hyperactive Disorder [place] 300 [facility] 300 [place] [phone] Social History Tobacco Use Types Packs/Day Years [...] or relatives? How often do you attend adventism or Never 2021 catholic services? 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 - 01/10/2020 11:30 AM CDT SUBJECTIVE CHIEF COMPLAINT / REASON FOR VISIT Gricelda Roberts is a 39 y.o. female who presents for evaluation of Medication Visit (est. care). HISTORY OF PRESENT ILLNESS Cierra is a 39-year-old female with a history of epilepsy on Keppra, migraines, hypothyroidism and attention deficit disorder. She is on Keppra and her last seizure was in September. However, this occurred during a time when shecould not take her medication. She has not had seizures on this medication since 2018. She has no complaints today. She takes 75 mcg of Synthroid daily. Her last TSH was November 2018 and was 2.7. Today, she complains of unintentional weight loss, chronic constipation over the last 3 months, upper appetite and a feeling of being bloated. She is scheduled to follow-up with gastroenterology which she has been investigated for celiac disease. She has been on Strattera for 14 years for ADD. Her dose has been consistent and she has no complaints. She is able to function better on this medication. She denies any chest pain, palpitations, feveror chills. The following portions of the patient's history were reviewed and updated as appropriate: allergies,current medications, family history, medical history, social history, surgical history and problem list. REVIEW OF SYSTEMS Pertinent items are noted in HPI. OBJECTIVE BP 100/68 (BP Location: Left arm, Patient Position: Sitting, Cuff Size: Regular) Pulse 76 Temp 36.7 ??C (Temporal) Resp 12 Wt 78.8 kg BMI 29.00 kg/m?? PHYSICAL EXAM General Appearance: healthy, alert, no distress, cooperative. Skin: skin color, texture, turgor normal, no suspicious rashes or lesions. Head: normocephalic, no masses, lesions, tenderness or abnormalities. Eyes: Anicteric sclera. Pupils are equally round and reactive to light. Extraocular movements are intact. . Neck: Supple, no adenopathy; thyroid symmetric, normal size, no bruits. Lungs: clear to auscultation. Heart: RRR without murmur, gallop, or rubs. Musculoskeletal: Range of motion normal in hips, knees, shoulders, and spine. Neurologic: Gait normal. Reflexes normal and symmetric. Sensation grossly intact.. ASSESSMENT / PLAN #1 Hypothyroidism #2 Seizure (HCC) #3 Attention Deficit Hyperactive Disorder Will make no changes to her medications today. Will continue Synthroid 75 mcg daily. Will also check a TSH today. Patient has had no seizures on current dose of Keppra. She follows up with Neurology on this. I haveencouraged her to be consistent with her medications. Patient has been on Strattera for ADD for the last 14 years with no change in dose. She does not need a refill today. We spent a significant amount of time reviewing her medications and encouraged her to be consistent with her current treatment plan. Will also check a kidney function and do a CBC today as well. I have encouraged her to follow-up with gastroenterology as scheduled next month. In the meantime, will manage her constipation with MiraLax and check her thyroid as well. 25 minutes of this visit was spent in [id number]-[id number] care and counseling. documented in this encounter Miscellaneous Notes Result Encounter Note - Matheus Feliciano M.B.B.S., M.D. - 01/13/2020 7:46 AM CDT Please stop synthroid immediately. We would recheck TSH in 8 weeks documented in this encounter Plan of Treatment Not on filedocumented as of this encounter Procedures Procedure Name Priority Date/Time Associated Diagnosis Comme nts CBC WITH Routine 01/10/2020 12:14 Hypothyroidism Results for this DIFFERENTIAL, B PM CDT Seizure (HCC) procedure a re in the results section. THYROID-STIMULATIN Routine 01/10/2020 12:14 Hypothyroidism Res ults for this G PM CDT procedure are i n HORMONE-SENSITIVE the result s (S-TSH) section. BASIC METABOLIC Routine 01/10/2020 12:14 Hypothyroidism Results for this PANEL, S/P PM CDT Seizure (HCC) procedure are in the results section. documented in this encounter Results S-TSH (Thyroid-Stimulating Hormone - Sensitive) (03/05/2020 12:38 PM CDT) P athologist Signature TSH, Sensitive 2.6 0.3 - 4.2 03/05/2020 [facility] mIU/L 4:06 PM CDT Comment: Biotin has been identified by the kayley gragner as a potential interfering substance. ??Higher concentr ations of biotin may be found in multivitamins, hair/nail supple ments, and workout supplements. ??If the result does not [facility] clinical observations, repeat testing after patient refrains fr om the use of supplements for at least 12 hours. Specimen Anatomical Collection Method Collection Time Receive d Time (Source) Location / / Volume Laterality Blood (Blood, 03/05/2020 12:38 03/05/2020 3:41 Venous) PM CDT PM CDT Matheus Pelletier M.D. LAB BLOOD ADD-ON Performing Organization Address City/State/ZIP Code Phon e Number [facility]- [address] [place] [address] [place] [address] System in [place] [address] CBC with Differential, Blood (01/10/2020 12:14 PM CDT) P athologist Signature Hemoglobin 14.1 11.6 - 01/10/2020 FB60 15.0 g/dL 1:18 PM CDT Hematocrit 41.2 35.5 - 01/10/2020 FB60 44.9 % 1:18 PM CDT Erythrocytes 4.58 3.92 - 01/10/2020 FB60 5.13 1:18 PM CDT x10(12)/L MCV 90.0 78.2 - 01/10/2020 FB60 97.9 fL 1:18 PM CDT RBC Distrib Width 12.4 12.2 - 01/10/2020 FB60 16.1 % 1:18 PM CDT Platelet Count 254 157 - 371 01/10/2020 FB60 x10(9)/L 1:18 PM CDT Leukocytes 8.2 3.4 - 9.6 01/10/2020 FB60 x10(9)/L 1:18 PM CDT Neutrophils 5.38 1.56 - 01/10/2020 FB60 6.45 1:18 PM CDT x10(9)/L Lymphocytes 1.96 0.95 - 01/10/2020 FB60 3.07 1:18 PM CDT x10(9)/L Monocytes 0.74 0.26 - 01/10/2020 FB60 0.81 1:18 PM CDT x10(9)/L Eosinophils 0.09 0.03 - 01/10/2020 FB60 0.48 1:18 PM CDT x10(9)/L Basophils 0.02 0.01 - 01/10/2020 FB60 0.08 1:18 PM CDT x10(9)/L Specimen Anatomical Collection Method Collection Time Receive d Time (Source) Location / / Volume Laterality Blood (Blood, 01/10/2020 12:14 01/10/2020 Venous) PM CDT 12:54 PM CDT Matheus Pelletier M.D. LAB BLOOD ADD-ON Performing Organization Address City/State/ZIP Code Phon e Number [facility]- [address] [place] [address] [facility] [place] [address] System in [place] [address] (ABNORMAL) Basic Metabolic Panel (01/10/2020 12:14 PM CDT) P athologist Signature Potassium, P 3.4 (L) 3.6 - 5.2 01/10/2020 [place] mmol/L 4:19 PM CDT Sodium, P 141 135 - 145 01/10/2020 [facility] mmol/L 4:19 PM CDT Chloride, P 108 (H) 98 - 107 01/10/2020 [facility] mmol/L 4:19 PM CDT Bicarbonate, P 23 22 - 29 01/10/2020 [facility] mmol/L 4:19 PM CDT Anion Gap, P 10 7 - 15 01/10/2020 [facility] 4:19 PM CDT BUN (Blood Urea 4 (L) 6 - 21 01/10/2020 [facility] Nitrogen), P mg/dL 4:19 PM CDT Creatinine 0.67 0.59 - 01/10/2020 [facility] 1.04 mg/dL 4:19 PM CDT eGFR-Black/Afri >90 >=60 01/10/2020 [facility] can Lithuanian mL/min/BSA 4:19 PM CDT Comment: ----ADDITIONAL INFORMATION---- Estimated GFR calculated using the 2009 CKD_EPI creatinine equation. eGFR Non-Black/ >90 >=60 mL/min/BSA 01/10/2020 4:19 PM CDT [facility] Comment: ----ADDITIONAL INFORMATION---- Estimated GFR calculated using the 2009 CKD_EPI creatinine equation. Calcium, Total, P 9.1 8.6 - 10.0 mg/dL 01/10/2020 4:19 PM CDT [facility] Glucose, P 89 70 - 140 mg/dL 01/10/2020 4:19 PM CDT O INDIGO Specimen Anatomical Collection Method Collection Time Receive d Time (Source) Location / / Volume Laterality Blood (Blood, 01/10/2020 12:14 01/10/2020 4:03 Venous) PM CDT PM CDT Matheus Pelletier M.D. LAB BLOOD ADD-ON Performing Organization Address City/[facility] Code Phon e Number [facility]- [address] [place] [facility] [place] [address] [place] [address] System in [place] [address] (ABNORMAL) S-TSH (Thyroid-Stimulating Hormone - Sensitive) (01/10/2020 12:14 PM CDT) athologist Signature TSH, Sensitive 0.08 (L) 0.3 - 4.2 01/10/2020 OW mIU/L 4:59 PM CDT Comment: Biotin has been identified by the kayley granger as a potential interfering substance. ??Higher concentr ations of biotin may be found in multivitamins, hair/nail supple ments, and workout supplements. ??If the result does not [facility] clinical observations, repeat testing after patient refrains fr om the use of supplements for at least 12 hours. Specimen Anatomical Collection Method Collection Time Receive d Time (Source) Location / / Volume Laterality Blood (Blood, 01/10/2020 12:14 01/10/2020 4:03 Venous) PM CDT PM CDT Matheus Pelletier M.D. LAB BLOOD ADD-ON Performing Organization Address City/State/ZIP Code Phon e Number [facility]- [address] [place] [facility] [place] [address] [place] [address] System in [place] [address] documented in this encounter Visit Diagnoses Diagnosis Hypothyroidism - Primary Seizure (HCC) Attention Deficit Hyperactive Disorder documented in this encounter Care Teams Computerized Mill Mill Recorder Relationship Specialty Start Date End Date Matheus Feliciano M.B.B.S., M.D. PCP - General Family Medicine 01/09/[address] [place] [address] [place] [address] documented as of this encounter
--- OUTSIDE RECORDS SUMMARY | 2022-04-10 14:56 | XMS_ITS | Encounter Summary ---
:1980 Author Organization [facility] Address [address] [place] [address] Care Team Providers Name Role Phone Matheus Feliciano M.D. Primary Care Provider [phone] Encounter Details Date Type Department Care Team Description 03/13/2020 Orders Only Department of [facility] (Primary Medicine, Rishi Farah M.D. Dx) Clinic, in [place] [address] [address] [address] [place], [place] [phone] [address] (Work) [phone] Social History Tobacco Use Types Packs/Day Years [...] do you attend pentecostal or Never 2021 shinto services? 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 documented as of this encounter Plan of Treatment Not on filedocumented as of this encounter Results (ABNORMAL) Basic Metabolic Panel (07/17/2020 12:35 PM CLEAN UP HELPER BANQUET) P athologist Signature Potassium, P 4.5 3.6 - 5.2 07/17/2020 [place] mmol/L 5:02 PM CLEAN UP HELPER BANQUET Sodium, P 139 135 - 145 07/17/2020 [facility] mmol/L 5:02 PM CLEAN UP HELPER BANQUET Chloride, P 106 98 - 107 07/17/2020 [facility] mmol/L 5:02 PM CLEAN UP HELPER BANQUET Bicarbonate, P 26 22 - 29 07/17/2020 [place] mmol/L 5:02 PM CLEAN UP HELPER BANQUET Anion Gap, P 7 7 - 15 07/17/2020 [place] 5:02 PM CLEAN UP HELPER BANQUET BUN (Blood Urea 5 (L) 6 - 21 07/17/2020 [facility] Nitrogen), P mg/dL 5:02 PM CLEAN UP HELPER BANQUET Creatinine 0.81 0.59 - 07/17/2020 [facility] 1.04 mg/dL 5:02 PM CLEAN UP HELPER BANQUET eGFR-Black/Afric >90 >=60 07/17/2020 [facility] an Kazakh mL/min/BSA 5:02 PM CLEAN UP HELPER BANQUET Comment: ----ADDITIONAL INFORMATION---- Estimated GFR calculated using the 2009 CKD_EPI creatinine equation. eGFR Non-Black/ >90 >=60 mL/min/BSA 07/17/2020 5:02 PM CLEAN UP HELPER BANQUET [facility] Comment: ----ADDITIONAL INFORMATION---- Estimated GFR calculated using the 2009 CKD_EPI creatinine equation. Calcium, Total, P 9.0 8.6 - 10.0 mg/dL 07/17/2020 5:02 PM CLEAN UP HELPER BANQUET [facility] Glucose, P 72 70 - 140 mg/dL 07/17/2020 5:02 PM CLEAN UP HELPER BANQUET O INDIGO Specimen Anatomical Collection Method Collection Time Receive d Time (Source) Location / / Volume Laterality Blood (Blood, 07/17/2020 12:35 07/17/2020 4:47 Venous) PM CLEAN UP HELPER BANQUET PM CLEAN UP HELPER BANQUET Gagan Tilley M.D. LAB BLOOD ADD-ON Performing Organization Address City/State/ZIP Code Phon e Number [facility]- [address] [place] [address] [facility] [place] [address] System in [place] [address] documented in this encounter Visit Diagnoses Diagnosis Hypokalemia - Primary documented in this encounter Care Teams Salesperson Men'S Furnishings Relationship Specialty Start Date End Date Matheus Feliciano M.B.B.S., M.D. PCP - General Family Medicine 01/09/[address] [place] [address] PANKAJ Velez [id number] documented as of this encounter
--- OUTSIDE RECORDS SUMMARY | 2022-04-10 14:56 | XMS_ITS | Encounter Summary ---
:1980 Author Organization [facility] Address [address] [place] [address] Care Team Providers Name Role Phone Matheus Feliciano M.D. 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 PCP - General Family Medicine 01/09/[address] [place] [address] [place] [address] documented as of this encounter
--- OUTSIDE RECORDS SUMMARY | 2022-04-10 14:56 | XMS_ITS | Encounter Summary ---
:1980 Author Organization [facility] Address [address] [place] [address] Care Team Providers Name Role Phone Matheus Feliciano M.D. Primary Care Provider [phone] Reason for Visit Reason Comments Med Refill Encounter Details Date Type Department Care Team Description 01/09/2020 Refill Department of Family Medicine, Matheus Feliciano I., Med Refill [facility] [place] [facility], in [place], [place] 300 [facility] 300 [place] [address] [place] [address] [phone] Social History Tobacco Use Types Packs/Day Years [...] or relatives? How often do you attend protestant or Never 2021 latter-day services? 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 PCP - General Family Medicine 01/09/[address] [place] [address] [place] [address] documented as of this encounter
--- OUTSIDE RECORDS SUMMARY | 2022-04-10 14:56 | XMS_ITS | Encounter Summary ---
:1980 Author Organization [facility] Address [address] [place] [address] Care Team Providers Name Role Phone Matheus Feliciano M.D. Primary Care Provider [phone] Reason for Visit Reason Comments Med Refill Encounter Details Date Type Department Care Team Description 03/11/2020 Refill Department of Family Medicine, Matheus Feliciano I., Med Refill [facility], in [place], [place] 300 [facility] 300 [place] [address] [place] [address] [phone] Social History Tobacco Use Types Packs/Day Years [...] or relatives? How often do you attend congregation or Never 2021 moravian services? 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 PCP - General Family Medicine 01/09/[address] [place] [address] [place] [address] documented as of this encounter
--- OUTSIDE RECORDS SUMMARY | 2022-04-10 14:56 | XMS_ITS | Encounter Summary ---
:1980 Author Organization [facility] Address [address] [place] [address] Care Team Providers Name Role Phone Matheus Feliciano M.D. Primary Care Provider [phone] Reason for Visit Reason Comments Post Hospital Follow-up Encounter Details Date Type Department Care Team Description 04/17/2020 Clinical Communication [facility] [address] [address] [place], [place] [phone] [address] (Work) [phone] Social History Tobacco Use Types Packs/Day Years [...] do you attend synagogue or Never 2021 islam services? 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 Admission Date: 04/12/20 Discharge Date: 04/14/20 Discharge Diagnosis: Laparoscopic gastropexy and laparoscopic hiatal hernia repair with mesh placement General Health Notes today that she is feeling better since discharged from the hospital. Concerns/questions: Patient is doing okay, but has a few questions/concerns. Patient stated that oneof the portal insertion sites is more painful than the others. Patient was wondering if this could be becuase this was an old site. Patient denied any symptoms of infection or dehisance when asked. Patient states that she feels the area is taking longer to heal as this was a previous insertion site from her gastric bypass surgery. Patient states that she wonders if it could be due to scar tissue. Unitizer explained that the area could take longer in healing or be more sensitive. Unitizer encouraged patient to call the clinic if pain does not improve, or worsens, and if signs/symptoms of infection are noted. Patient verbalized understanding. . Symptom Review No new symptoms since discharge from the hospital. Activities of Daily Living Patient is independent with activities of daily living. Has the patient had a fall since discharge: no. Has ambulation changed since hospitalization: no. Difficulty ambulating: no. The patient lives with significant other. Patient identified if needing assistance, she could depend on significant other. Wounds/Incisions/Lines, Drains and Airways Incision: abdominal. Signs or symptoms of infection: no. Incision care instructions reviewed: yes. Medication Status Current medication list was reviewed and updated as needed. Reports medication is self managed. Medications concerns: none. Medication compliance for current medications: yes. High Risk Medications Controlled Substances: Name: Oxycodone. Taking as instructed: yes. Experiencing side effects: no. This medication was added during this hospital stay: yes.. Home Services Utilized The patient is not currently receiving home health services. Equipment/Supplies for Home Use None ordered Assessment/Plan Follow-up Appointment PCP Follow-up appointment scheduled: no. Specialty Follow-up with General Surgery has been ordered but not scheduled. Recommendations Referral actions: none needed at this time. Additional recommendations: home care instructions reinforced or provided. Disposition/Recommendation: self-care is appropriate at this time, patient encouraged to call back with questions. Education: patient/caller able to teach back. Caller agreeable to plan of care: yes. Telephone Encounter - Olivia Barnes R.N. - 04/17/2020 9:33 AM CDT SUBJECTIVE REASON FOR CALL Post-Hospital follow-up phone call with patient. Admission Date: 04/12/20 Discharge Date: 04/14/20 Discharge Diagnosis: Laparoscopic gastropexy and laparoscopic hiatal hernia repair with mesh placement 1st Attempt: 04/17/20 at 9:37am. Left message for patient to call back. documented in this encounter Plan of Treatment Not on filedocumented as of this encounter Visit Diagnoses Not on filedocumented in this encounter Care Teams Coconut Boiler Relationship Specialty Start Date End Date Matheus Feliciaon M.B.B.S. MDonald. PCP - General Family Medicine 01/09/[address] [place] [address] [place] [address] documented as of this encounter
--- OUTSIDE RECORDS SUMMARY | 2022-04-10 14:56 | XMS_ITS | Encounter Summary ---
:1980 Author Organization [facility] Address [address] [place] [address] Care Team Providers Name Role Phone Matheus Feliciano M.D. Primary Care Provider [phone] Encounter Details Date Type Department Care Team Description 03/13/2020 Clinical Communication Department of Matheus [facility], Prabhu Parmar, Clinic, in [place] [address] [address] [phone] Social History Tobacco Use Types Packs/Day Years [...] do you attend jewish or Never 2021 baptist services? 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 - 03/13/2020 4:07 PM CDT SUBJECTIVE CHIEF COMPLAINT / REASON FOR CALL No chief complaint on file. Information Discussed Patient notified prescription refills were approved and sent to [facility] to be dispensed to patient PLAN Disposition/Recommendation: recommended continue engagement in self-management activities Information/Education: patient/caller able to teach back Caller agreeable to plan of care: yes The following references were used: provider dr boucher Telephone Encounter - Melia Cason - 03/13/2020 3:53 PM CDT Reason for Communication: Patient calling to see if the Vitamin B12 RX could be sent to [facility] before she leaves [facility] and goes back to [place]. Please call [facility]. Current Can Nursing/Provider leave a detailed message: Did the patient refuse triage through Nurse line? (for symptom based concerns): Action Needed: phone call Name of Medication (if relevant): documented in this encounter Plan of Treatment Not on filedocumented as of this encounter Visit Diagnoses Not on filedocumented in this encounter Care Teams Wharf Labourer Relationship Specialty Start Date End Date Matheus Feliciano M.B.B.S., M.D. PCP - General Family Medicine 01/09/[address] [place] [address] [place] [phone] documented as of this encounter
--- OUTSIDE RECORDS SUMMARY | 2022-04-10 14:56 | XMS_ITS | Encounter Summary ---
:1980 Author Organization [facility] Address [address] [place] [address] Care Team Providers Name Role Phone Matheus Feliciano M.D. Primary Care Provider [phone] Reason for Visit Reason Comments Medical Information Encounter Details Date Type Department Care Team Description 01/11/2020 Clinical Communication Department of Raz Felician[facility] in [address] [address] [place], [place] [phone] [address] (Work) [phone] Social History Tobacco Use Types Packs/Day Years [...] do you attend yarsanism or Never 2021 sabianist services? 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 - 01/11/2020 4:34 PM CDT SUBJECTIVE CHIEF COMPLAINT / REASON FOR CALL Medical Information PLAN The following information was provided: Would like you to review her labs from yesterday she was looking on the portal and say that her TSH is low would like to know what she is to do Information/Education: patient/caller able to teach back The following references were used: none Telephone Encounter - Liu Taylor - 01/11/2020 4:13 PM CDT Reason for Communication: patient called and would like to talk to kailey or nurse about her results, please advise. Current Can Nursing/Provider leave a detailed message: yes Did the patient refuse triage through Nurse line? (for symptom based concerns): Action Needed: Name of Medication (if relevant): documented in this encounter Plan of Treatment Not on filedocumented as of this encounter Visit Diagnoses Not on filedocumented in this encounter Care Teams Pastor Relationship Specialty Start Date End Date Matheus Feliciano M.B.B.S., M.D. PCP - General Family Medicine 01/09/[address] [place] [address] [place] [phone] documented as of this encounter
--- OUTSIDE RECORDS SUMMARY | 2022-04-10 14:56 | XMS_ITS | Encounter Summary ---
:1980 Author Organization [facility] Address [address] [place] [address] Care Team Providers Name Role Phone Matheus Feliciano M.D. Primary Care Provider [phone] Reason for Visit Reason Comments Urinary Tract Infection uregency, pink tinge when wi ping, lower back pain- started approx. 2 week Appointment Request (Routine) - Closed Specialty Diagnoses / Procedures Referred By Contact Refer red To Contact Family Medicine Referral ID Status Reason Start Date Expiration Date Visits Requ ested Visits Authorized [id number] Closed 06/20/2020 06/20/2021 1 1 Encounter Details Date Type Department Care Team Description 06/21/2020 Office Visit Department of Family Altrichter, Dysuria (Primary Dx); Medicine, Rishi Farah M.D. Cystitis Clinic, in [place], [facility] [address] [place], [place] [address] [place] [address] [place], [place] [phone] [address] (Work) [phone] Social History Tobacco Use Types Packs/Day Years [...] do you attend hoahaoism or Never 2021 sabianist services? 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 documented as of this encounter Last Filed Vital Signs Vital Sign Reading Time Taken Comments Blood Pressure 110/64 06/21/2020 1:57 PM DIPLOMA MEDICAL ASSISTANT Pulse 92 06/21/2020 1:57 PM DIPLOMA MEDICAL ASSISTANT Temperature 36.7 ??C (98.1 ??F) 06/21/2020 1:57 PM DIPLOMA MEDICAL ASSISTANT Respiratory Rate 16 06/21/2020 1:57 PM DIPLOMA MEDICAL ASSISTANT Oxygen Saturation - - Inhaled Oxygen Concentration - - Weight 70.7 kg (155 lb 12.1 oz) 06/21/2020 1:57 PM DIPLOMA MEDICAL ASSISTANT Height 181.5 cm (5' 11.46) 06/21/2020 1:57 PM DIPLOMA MEDICAL ASSISTANT Body Mass Index 21.45 06/21/2020 1:57 PM DIPLOMA MEDICAL ASSISTANT documented in this encounter Progress Notes Gagan Tilley M.D. - 06/21/2020 2:00 PM CST MARNI [facility], is here with her to discuss 2 week history of urinary frequency dysuria and urgency. No history of trauma. She thought it might be UTI. She noted bright red blood yesterday. She does notmenstruate because she has had a hysterectomy. She would like this evaluated. She has mild flank pain. She has not had prior kidney stones. No fever or chills. Review of systems: No change in weight. No other constitutional symptoms. No headache or visual symptoms. No ENT complaints. Patient denies dysphagia. No shortness of breath, no chest pain, no palpitations, paroxysmal nocturnal dyspnea or orthopnea. No nausea, vomiting, constipation, or diarrhea. No ge nitourinary, musculoskeletal, skin, or neurologic complaints except per HPI. OBJECTIVE BP 110/64 (BP Location: Left arm, Patient Position: Sitting, Cuff Size: Large) Pulse 92 Temp 36.7 ??C (Temporal) Resp 16 Ht 181.5 cm Wt 70.7 kg BMI 21.45 kg/m?? Alert woman who is in no severe distress. Abdomen is soft she has some mild suprapubic tenderness. She does not have significant percussion tenderness over the CVA. Urinalysis is clear except for trace blood. She has been hydrating. Urine culture pending. ASSESSMENT / PLAN #1 Dysuria #2 Consider hemorrhagic Cystitis For now will cover a Bactrim double strength for 7 days. Will contact her with results of the culture when it is available. Will change therapy if needed. If the culture is negative could discontinue Bactrim she will then evaluation of her urinary tract given the gross hematuria. She will also need a pelvic exam. All of the above reviewed. Her questions were answered. There were no barriers to learning. Addendum patient's in her absence notified of the negative urine culture. She has not noticed significant improvement with the Bactrim. They will continue the Bactrim for an additional 24 hoursand if no benefit discontinue it. Patient to follow-up with Dr. Feliciano or a care team assistant this week. OMA MEDICAL ASSISTANT documented in this encounter Plan of Treatment Not on filedocumented as of this encounter Procedures Procedure Name Priority Date/Time Associated Comments Diagnosis BACTERIAL CULTURE, Routine 06/21/2020 2:16 PM Dysuria Res ults for this AEROBIC + SUSC, URINE DIPLOMA MEDICAL ASSISTANT proced ure are in the results section. URINALYSIS WITH Routine 06/21/2020 2:16 PM Dysuria Result s for this MICROSCOPIC DIPLOMA MEDICAL ASSISTANT procedure are i n the results section. documented in this encounter Results Bacterial Culture, Aerobic + Susc, Urine (06/21/2020 2:16 PM DIPLOMA MEDICAL ASSISTANT) Patholo gist Method Time Signature Urine Culture No growth 06/22/2020 MKTO after 1 day 4:11 PM DIPLOMA MEDICAL ASSISTANT of incubation. Specimen Anatomical Collection Method Collection Time Receive d Time (Source) Location / / Volume Laterality Urine (Urine, 06/21/2020 2:16 PM 06/21/20 20 8:19 Midstream) DIPLOMA MEDICAL ASSISTANT PM DIPLOMA MEDICAL ASSISTANT Comment: Specimen Source Site: Urine Gagan Tilley M.D. LAB MICROBIOLOGY - GENERAL O RDERABLES Performing Organization Address City/State/ZIP Code Phon e Number [facility]- [address] [place] [phone] [place] [address] [address] (ABNORMAL) Urinalysis with Microscopic: Urine, Midstream (06/21/2020 2:16 PM DIPLOMA MEDICAL ASSISTANT) P athologist Signature Source Midstream 06/21/2020 FB60 2:39 PM DIPLOMA MEDICAL ASSISTANT Clarity Clear Clear 06/21/2020 FB60 2:39 PM DIPLOMA MEDICAL ASSISTANT Color Yellow 06/21/2020 FB60 2:39 PM DIPLOMA MEDICAL ASSISTANT Comment: ----REFERENCE VALUE---- Colorless Yellow Dena Blood Small (A) Negative 06/21/2020 2:39 PM DIPLOMA MEDICAL ASSISTANT FB60 Nitrite Negative Negative 06/21/2020 2:39 PM DIPLOMA MEDICAL ASSISTANT FB60 Leukocyte Esterase Negative Negative 06/21/2020 2:39 PM CS T FB60 Protein Negative mg/dL 06/21/2020 2:39 PM DIPLOMA MEDICAL ASSISTANT FB60 Comment: ----REFERENCE VALUE---- Negative Trace Glucose Negative Negative mg/dL 06/21/2020 2:39 PM DIPLOMA MEDICAL ASSISTANT FB 60 Ketones, QI(U) Negative Negative mg/dL 06/21/2020 2:[address] FB60 Bilirubin Negative Negative 06/21/2020 2:39 PM DIPLOMA MEDICAL ASSISTANT FB60 pH 7.0 5.0 - 8.0 06/21/2020 2:39 PM DIPLOMA MEDICAL ASSISTANT FB60 Specific [place] 1.010 1.001 - 1.035 06/21/2020 2:39 PM DIPLOMA MEDICAL ASSISTANT FB60 Urobilinogen 0.2 0.2 - 1.0 mg/dL 06/21/2020 2:39 PM CS T FB60 White Blood Cells None Seen /hpf 06/21/2020 2:39 PM DIPLOMA MEDICAL ASSISTANT FB60 Comment: ----REFERENCE VALUE---- Males: 0-3 Females: 0-10 Unknown: 0-10 Red Blood Cells None Seen 0 - 2 /hpf 06/21/2020 2:39 PM DIPLOMA MEDICAL ASSISTANT FB60 Specimen Anatomical Collection Method Collection Time Receive d Time (Source) Location / / Volume Laterality Urine (Urine, 06/21/2020 2:16 PM 06/21/20 2:16 Midstream) DIPLOMA MEDICAL ASSISTANT PM DIPLOMA MEDICAL ASSISTANT Gagan Tilley M.D. LAB URINE ORDERABLES Performing Organization Address City/State/ZIP Code Phon e Number [facility]- [address] [place] [address] [facility] [address] [place] [address] System [address] documented in this encounter Visit Diagnoses Diagnosis Dysuria - Primary Cystitis documented in this encounter Care Teams Wallet Assembler Relationship Specialty Start Date End Date Matheus Feliciano M.B.B.S., M.D. PCP - General Family Medicine 01/09/20 [address] [facility] [place] [address] documented as of this encounter
--- OUTSIDE RECORDS SUMMARY | 2022-04-10 14:56 | XMS_ITS | Encounter Summary ---
:1980 Author Organization [facility] Address [address] [place] [address] Care Team Providers Name Role Phone Matheus Feliciano M.D. Primary Care Provider [phone] Encounter Details Date Type Department Care Team Description 02/20/2020 Clinical Communication Department of [facility]us [facility], Prabhu Parmar, Clinic, in [place] [address] [address] [phone] Social History Tobacco Use Types Packs/Day Years [...] do you attend yazidi or Never 2021 faith services? 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 PCP - General Family Medicine 01/09/[address] [place] [address] [place] [phone] documented as of this encounter
--- OUTSIDE RECORDS SUMMARY | 2022-04-10 14:56 | XMS_ITS | Encounter Summary ---
:1980 Author Organization [facility] Address [address] [place] [address] Care Team Providers Name Role Phone Matheus Felicinao M.D. Primary Care Provider [phone] Encounter Details Date Type Department Care Team Description 03/05/2020 Hospital Encounter Department of Matheus Feliciano [facility] hyroidism Laboratory Medicine in Prabhu [place] [address] [facility] [address] [place] [address] [phone] Social History Tobacco Use Types Packs/Day Years [...] do you attend jew or Never 2021 yazidi services? 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 adapalene (DIFFERIN) 0.1 Apply topically at 0 10/07/2021 % cream bedtime. ascorbic acid,vitamin Take by mouth 0 10/07/2021 C,,bulk, 100 % powder daily. atomoxetine (STRATTERA) TAKE 1 CAPSULE(80 90 capsule 3 11/0803/13/2020 80 mg capsule MG) BY MOUTH DAILY BD Integra Syringe 3 mL USE 1 SYRINGE EVERY 4 Syringe 11 07/202003/13/2020 25 gauge x 5/8 syringe 7 DAYS busPIRone (BUSPAR) 30 mg Take 1 tablet (30 180 tablet 3 06/1006/19/2020 tablet mg total) by mouth 2 (two) times a day. calcium Take 1 tablet by 0 07/13/2013 10/07/19 22 carbonate-vitamin D3 500 mouth daily. mg(1,250mg) -400 unit tablet citalopram (CeleXA) 40 Take 1 tablet by 0 015 03/27/2020 mg tablet mouth daily. cyanocobalamin (VITAMIN INJECT 1 ML IN THE 3 mL 3 02/201903/13/2020 B12) 1,000 mcg/mL MUSCLE ONCE A MONTH injection cyclobenzaprine Take 1 tablet (10 30 tablet 0 08/26/2018 (FLEXERIL) 10 mg tablet mg total) by mouth 3 (three) times a day as needed for muscle spasms. diclofenac sodium Apply 4 g topically 300 g 2 9 04/04/2020 (VOLTAREN) 1 % gel 4 (four) times a day as needed (Pain). dicyclomine (BENTYL) 10 Take 10 mg by mouth 0 07/202006/21/2020 mg capsule as needed. escitalopram (LEXAPRO) TAKE 1 TABLET BY 90 tablet 3 019 03/27/2020 20 mg tablet MOUTH EVERY DAY fluticasone propionate Administer 2 sprays 16 g 11 04/1003/26/2020 (FLONASE) 50 into each nostril mcg/actuation nasal daily. spray fluticasone propionate Administer 30 mcg 0 04/04/2020 (FLONASE) 50 into affected mcg/actuation nasal nostril(s). spray gabapentin (NEURONTIN) TAKE 3 CAPSULES(900 810 capsule 3 06/201906/19/2020 300 mg capsule MG) BY MOUTH THREE TIMES DAILY levETIRAcetam (KEPPRA) TAKE 1 TABLET BY 180 tablet 3 020 05/28/2020 500 mg tablet MOUTH TWICE DAILY levothyroxine TAKE 1 TABLET BY 90 tablet 3 11/09/201904/04 (SYNTHROID, LEVOTHROID) MOUTH ONCE A DAY 75 mcg tablet LORazepam (ATIVAN) 1 mg Take 1 tablet (1 mg 1 tablet 0 04/201904/04/2020 tablet total) by mouth as directed. nystatin-triamcinolone Apply 0.5 inches 0 10/07/2021 (MYCOLOG II) 100,000 topically as Unit/g-0.1 % cream needed. ondansetron (ZOFRAN) 8 Take 1 tablet by 0 016 03/27/2020 mg tablet mouth as needed. ondansetron ODT 0 09/21/2019 0 (ZOFRAN-ODT) 4 mg disintegrating tablet ondansetron ODT Take 4 mg by mouth 0 09/21/2019 0 01/23/2021 (ZOFRAN-ODT) 4 mg as needed. disintegrating tablet pantoprazole (PROTONIX) Take 40 mg by mouth 0 07/202006/21/2020 40 mg EC tablet at bedtime. vitamin-iron Take 1 capsule by 0 016 04/04/2020 fumarate-FA ( mouth 2 (two) times MULTIVITAMINS) 28 mg a day. iron- 800 mcg per tablet PROCTOZONE-HC 2.5 % 0 08/22/201804/04 rectal cream SUMAtriptan (IMITREX) as needed. 0 03/10/2018 100 mg tablet SUMAtriptan (IMITREX) Take 1 tablet (100 9 tablet 3 201804/06/2020 100 mg tablet mg total) by mouth once for 1 dose. syringe, disposable, 1 1 each every 30 25 Syringe 1 08/26/19 19 04/04/2020 mL syringe (thirty) days. syringe, disposable, 1 1 Device by not 0 07/13/20 13 04/04/2020 mL syringe applicable route. topiramate (TOPAMAX) 100 Take 1 tablet (100 90 tablet 3 2020 mg tabletIndications: mg total) by mouth Migraine Headache at bedtime. traZODone (DESYREL) 100 Take 1 tablet (100 90 tablet 3 08/1004/04/2020 mg tablet mg total) by mouth daily. ZOLMitriptan (ZOMIG) 5 Take by mouth as 0 06/24/2021 mg tablet needed. documented as of this encounter Miscellaneous Notes Result Encounter Note - Matheus Feliciano M.B.B.S., M.D. - 03/05/2020 5:18 PM CDT TSH within normal limits. Will recheck in 3 months. documented in this encounter Plan of Treatment Not on filedocumented as of this encounter Procedures Procedure Name Priority Date/Time Associated Diagnosis Comme nts THYROID-STIMULATING Routine 03/05/2020 12:38 Hypothyroidism Re sults for this HORMONE-SENSITIVE PM CDT procedure are in (S-TSH) the results [...] supplements. ??If the result does not [facility] clinical observations, repeat testing after patient refrains fr om the use of supplements for at least 12 hours. Specimen Anatomical Collection Method Collection Time Receive d Time (Source) Location / / Volume Laterality Blood (Blood, 03/05/2020 12:38 03/05/2020 3:41 Venous) PM CDT PM CDT Matheus Pelletier M.D. LAB BLOOD ADD-ON Performing Organization Address City/State/ZIP Code Phon e Number [facility]- [address] [place] [address] [place] [address] System in [place] [address] documented in this encounter Visit Diagnoses Diagnosis Hypothyroidism documented in this encounter Care Teams Protection Analyst Relationship Specialty Start Date End Date Matheus Feliciano M.B.B.S., M.D. PCP - General Family Medicine 01/09/[address] [place] [address] documented as of this encounter
--- OUTSIDE RECORDS SUMMARY | 2022-04-10 14:56 | XMS_ITS | Encounter Summary ---
:1980 Author Organization [facility] Address [address] [place] [address] Care Team Providers Name Role Phone Matheus Feliciano M.D. Primary Care Provider [phone] Encounter Details Date Type Department Care Team Description 03/05/2020 Orders Only Department of Family Matheus Feliciano Hypo thyroidism (Primary Medicine, Prabhu Parmar, Dx) Clinic, in [place] 300 [facility] 300 [place] [address] [phone] Social History Tobacco Use Types Packs/Day Years [...] do you attend hoahaoism or Never 2021 druze services? 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 LAB BLOOD ADD-ON Performing Organization Address City/State/ZIP Code Phon e Number [facility]- [address] [place] [address] [place] [address] System in [place] [address] documented in this encounter Visit Diagnoses Diagnosis Hypothyroidism - Primary documented in this encounter Care Teams Ordnance Truck Installation Mechanic Relationship Specialty Start Date End Date Matheus Feliciano M.B.B.S., M.D. PCP - General Family Medicine 01/09/[address] [place] [address] [place] [phone] documented as of this encounter
--- OUTSIDE RECORDS SUMMARY | 2022-04-10 14:56 | XMS_ITS | Encounter Summary ---
:1980 Author Organization [facility] Address [address] [place] [address] Care Team Providers Name Role Phone Matheus Feliciano M.D. Primary Care Provider [phone] Encounter Details Date Type Department Care Team Description 02/16/2020 Hospital Encounter Department of Rick Brown Nausea A nd Vomiting Laboratory Medicine M.[facility] [address] [phone] [address] (Work) [phone] Social History Tobacco Use Types Packs/Day Years [...] do you attend worship or Never 2021 confucianism services? 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 C-REACTIVE PROTEIN Routine 02/16/2020 12:07 Nausea And Resul ts for this (CRP), S/P PM CDT Vomiting procedure are i n the results section. documented in this encounter Results tTG (Tissue Transglutaminase), Antibody, IgA (02/16/2020 12:07 PM CDT) Patholo gist Method Time Signature Tissue <0.5 <15.0 02/17/2020 [facility] Transglutaminase Ab, U/mL 5:26 PM CDT IgA, S Specimen Anatomical Collection Method Collection Time Receive d Time (Source) Location / / Volume Laterality Blood (Blood, 02/16/2020 12:07 02/17/2020 Venous) PM CDT 11:02 AM CDT Rick Brown M.D. LAB BLOOD ADD-ON Performing Organization Address [facility] Code Phon e Number [facility]- [address] [place] [phone] [place] [address] System [address] CRP (C-Reactive Protein) (02/16/2020 12:07 PM CDT) P athologist Signature C-Reactive <3.0 <=8.0 mg/L 02/16/2020 [place] Protein (CRP), 4:02 PM CDT P Specimen Anatomical Collection Method Collection Time Receive d Time (Source) Location / / Volume Laterality Blood (Blood, 02/16/2020 12:07 02/16/2020 3:34 Venous) PM CDT PM CDT Rick Stephanie M.D. LAB BLOOD ADD-ON Performing Organization Address City/State/ZIP Code Phon e Number [facility]- [address] [place] [address] [place] [address] System in [place] [address] documented in this encounter Visit Diagnoses Diagnosis Nausea And Vomiting documented in this encounter Care Teams Funeral Prearrangement Counselor Relationship Specialty Start Date End Date Matheus Feliciano M.B.B.S., M.D. PCP - General Family Medicine 01/09/[address] [place] [phone] documented as of this encounter
--- OUTSIDE RECORDS SUMMARY | 2022-04-10 14:56 | XMS_ITS | Encounter Summary ---
:[address] [facility] Address [address] [place] [address] Care Team Providers Name Role Phone Matheus Feliciano M.D. Primary Care Provider [phone] Encounter Details Date Type Department Care Team Description 02/28/2020 Clinical Communication Department of Matheus [facility], Prabhu Parmar, Clinic, in [place] [address] [address] [phone] Social History Tobacco Use Types Packs/Day Years [...] do you attend confucianism or Never 2021 rastafari services? 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 In the past 30 days have you had a swab for COVID that tested positive? no Route reply to: Scheduling Contact Number: documented in this encounter Plan of Treatment Not on filedocumented as of this encounter Visit Diagnoses Not on filedocumented in this encounter Care Teams Clinic Office Assistant Relationship Specialty Start Date End Date Matheus Feliciano M.B.BRafalSRafal, MDonald. PCP - General Family Medicine 01/09/[address] [place] [address] PANK[place] Velez [address] documented as of this encounter
--- OUTSIDE RECORDS SUMMARY | 2022-04-10 14:56 | XMS_ITS | Encounter Summary ---
:1980 Author Organization [facility] Address [address] [place] [address] Care Team Providers Name Role Phone Matheus Feliciano M.D. Primary Care Provider [phone] Encounter Details Date Type Department Care Team Description 03/27/2020 Clinical Communication Department of Matheus [facility], Prabhu Parmar, Clinic, in [place] [address] [address] [phone] Social History Tobacco Use Types Packs/Day Years [...] or relatives? How often do you attend sikhism or Never 2021 adventist services? 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 1. Do you have a pending COVID test because you had symptoms or exposure to someone with COVID or you have tested positive for COVID in the last 30 days? no 2. In the past 14 days, do you, anyone in the household, or anyone you have had prolonged exposure have any of the following? a. Fever greater than or equal to 37.8 C (100.0 F)? no b. New symptoms (Specifically: headache, cough, shortness of breath, respiratory distress, sore throat, diarrhea, nausea, vomiting, chills and repeated shaking with chills, myalgia's (muscle aches), loss of smell, or change or loss of taste sensation)? no c. Had close contact with a patient with known or possible COVID-19 in the last 14 days? no Route reply to: Scheduling Contact Number: [phone] documented in this encounter Plan of Treatment Not on filedocumented as of this encounter Visit Diagnoses Not on filedocumented in this encounter Care Teams Compliance Review Specialist Relationship Specialty Start Date End Date Matheus Feliciano M.B.B.S., M.D. PCP - General Family Medicine 01/09/[address] [place] [address] documented as of this encounter
--- OUTSIDE RECORDS SUMMARY | 2022-04-10 14:56 | XMS_ITS | Encounter Summary ---
:1980 Author Organization [facility] Address [address] [place] [address] Care Team Providers Name Role Phone Matheus Feliciano M.D. Primary Care Provider [phone] Encounter Details Date Type Department Care Team Description 01/09/2020 Clinical Communication Department of Matheus [facility], Prabhu Parmar, Clinic, in [place] [address] [address] [phone] Social History Tobacco Use Types Packs/Day Years [...] do you attend taoism or Never 2021 pentecostal services? 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 Do you have a pending COVID test because you had symptoms or exposure to someone with COVID or you have tested positive for COVID in the last 30 days? no 2. In the past 14 days, do you, anyone in the household, or anyone you have had prolonged exposure have any of the following? a. Fever = 38.0 C (100.5 F) lasting 24 hours? no b. New symptoms (Specifically: headache, cough, shortness of breath, respiratory distress, sore throat, diarrhea, nausea, vomiting, chills and repeated shaking with chills, myalgia's (muscle aches), loss of smell, or change or loss of taste sensation)? no c. Had close contact with a patient with known or possible COVID-19 in the last 14 days? no Route reply to: Scheduling Contact Number: [phone] documented in this encounter Plan of Treatment Not on filedocumented as of this encounter Visit Diagnoses Not on filedocumented in this encounter Care Teams Engineering Faculty Relationship Specialty Start Date End Date Matheus Feliciano M.B.B.S., M.D. PCP - General Family Medicine 01/09/[address] [place] [address] [place], PANKAJ [address] documented as of this encounter
--- OUTSIDE RECORDS SUMMARY | 2022-04-10 14:56 | XMS_ITS | Encounter Summary ---
:1980 Author Organization [facility] Address [address] [place] [address] Care Team Providers Name Role Phone Matheus Feliciano M.D. Primary Care Provider [phone] Reason for Referral Outpatient (Routine) - Closed Specialty Diagnoses / Procedures Referred By Contact Refer red To Contact Diagnoses Hematuria Gross Urgency Urinary Gagan Tilley M.D. [facility] Procedures URO Cystoscopy (general) [address] [place] [address] Referral ID Status Reason Start Date Expiration Date Visits Requ ested Visits Authorized [id number] Closed 06/26/2020 06/26/2021 1 1 D MASTER Outpatient (Routine) - Closed Specialty Diagnoses / Procedures Referred By Contact Refer red To Contact Urology Diagnoses Hematuria Gross Urgency Urinary Gagan Tilley M.D. [facility] [address] [place] [address] Referral ID Status Reason Start Date Expiration Date Visits Requ ested Visits Authorized [id number] Closed 06/26/2020 06/26/2021 1 1 D MASTER Reason for Visit Reason Comments Follow-up Needs tests ordered Appointment Request (Routine) - Closed Specialty Diagnoses / Procedures Referred By Contact Refer red To Contact Family Medicine Referral ID Status Reason Start Date Expiration Date Visits Requ ested Visits Authorized [id number] Closed 06/25/2020 06/25/2021 1 1 Encounter Details Date Type Department Care Team Description 06/26/2020 Office Visit Department of Family [place] Tilley (Primary Dx); Medicine, [place] Farah M.D. [facility], in [place], [place] [address] [place], [place] [address] [address] PANKAJ SEGURA [phone] [address] (Work) [phone] Social History Tobacco Use Types Packs/Day Years Used Date Smoking Tobacco: Former Cigarettes Smokeless Tobacco: Never Tobacco Cessation: Counseling Given: [...] do you attend protestant or Never 2021 sikh services? 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 - 06/26/2020 11:15 AM CST MARNI [place] is here today in follow-up gross hematuria, frequency, urgency and incontinence. He initially had evaluated her last week. Her symptoms suggested a urinary tract infection. The urinalysis only demonstrated hematuria. We empirically treated her for a UTI while the culture was pending because of the significance of her symptoms. The culture was subsequently negative. She felt like she initially was somewhat better so she has nearly competed to the prescription. But now on day 6 her symptoms are no different they are no better. Given the urgency, incontinence and hematuria additional questions were asked. Patient had 2 children but they were both by . She subsequently had a hysterectomy. She has not had any vaginal bleeding. Review of systems: No change in weight. No other constitutional symptoms. No headache or visual symptoms. No ENT complaints. Patient denies dysphagia. No shortness of breath, no chest pain, no palpitations, paroxysmal nocturnal dyspnea or orthopnea. No nausea, vomiting, constipation, or diarrhea. No ge nitourinary, musculoskeletal, skin, or neurologic complaints except per HPI. OBJECTIVE BP 104/81 (BP Location: Left arm, Patient Position: Sitting, Cuff Size: Regular) Pulse 89 Temp 36.1 ??C (Temporal) Resp 18 Ht 163 cm Wt 68.8 kg BMI 25.89 kg/m?? Nurse Alejandra was available for the examination. She has mild suprapubic fullness. The vulva is normal. No mucosal abnormality. ASSESSMENT / PLAN #1 Hematuria Gross #2 Urgency Urinary/incontinent Will proceed with urology consultation prior to that consultation a cystoscopy will be arranged. Patient had a CT abdomen and pelvis in November of this year at [facility]. There were no abnormalities noted in the kidney ureters or bladder on that review. We look forward to our Urology colleagues recommendations for further evaluation and treatment. This was reviewed in detail with the patient and her . Their questions were answered. There were no barriers to learning. D MASTER documented in this encounter Plan of Treatment Scheduled Referrals Name Type Priority Associated Diagnoses Order S [facility] Urology - General - Outpatient Referral Routine Hematuri a Gross Expected: hematuria / Urgency Urinary 06/26/2020 abnormal cytology (Approxima te), consult (clinic) Expires: 06/26/2023 documented as of this encounter Visit Diagnoses Diagnosis Hematuria Gross - Primary Urgency Urinary documented in this encounter Care Teams Brush Finisher Relationship Specialty Start Date End Date Matheus Feliciano M.B.B.S., M.D. PCP - General Family Medicine 01/09/[address] [place] [phone] documented as of this encounter
--- OUTSIDE RECORDS SUMMARY | 2022-04-10 14:56 | XMS_ITS | Encounter Summary ---
:1980 Author Organization [facility] Address [address] [place] [address] Care Team Providers Name Role Phone Matheus Feliciano M.D. Primary Care Provider [phone] Reason for Visit Reason Comments Med Refill Encounter Details Date Type Department Care Team Description 03/26/2020 Refill Department of Family Medicine, [place] Med Refill [facility], in [place] M.D. [place] [address] [address] [place] [address] [phone] Social History Tobacco Use Types Packs/Day Years [...] do you attend druze or Never 2021 oriental orthodox services? 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 PCP - General Family Medicine 01/09/[address] [place] [address] [place] [address] documented as of this encounter
--- OUTSIDE RECORDS SUMMARY | 2022-04-10 14:56 | XMS_ITS | Encounter Summary ---
:1980 Author Organization [facility] Address [address] [place] [address] Care Team Providers Name Role Phone Matheus Feliciano M.D. Primary Care Provider [phone] Encounter Details Date Type Department Care Team Description 06/25/2020 Clinical Communication Department of Matheus [facility], Prabhu Parmar, Clinic, in [place] [address] [address] [phone] Social History Tobacco Use Types Packs/Day Years [...] do you attend yazidi or Never 2021 methodist services? 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 PCP - General Family Medicine 01/09/[address] [place] [address] [place] [phone] documented as of this encounter
--- OUTSIDE RECORDS SUMMARY | 2022-04-10 14:56 | XMS_ITS | Encounter Summary ---
:1980 Author Organization [facility] Address [address] [place] [address] Care Team Providers Name Role Phone Matheus Feliciano M.D. Primary Care Provider [phone] Reason for Visit Reason Comments Med Refill Encounter Details Date Type Department Care Team Description 03/26/2020 Refill [facility] at [place] Quinteros, [facility]PRafal [address] [place], [place] [phone] [place] [phone] (Wo rk) Social History Tobacco Use Types [...] do you attend synagogue or Never 2021 temple services? 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 PCP - General Family Medicine 01/09/[address] [place] [address] [place] [phone] documented as of this encounter
--- OUTSIDE RECORDS SUMMARY | 2022-04-10 14:56 | XMS_ITS | Encounter Summary ---
:1980 Author Organization [facility] Address [address] [place] [address] Care Team Providers Name Role Phone Bonnie Franz M.D. Primary Care Provider [phone] Reason for Visit Reason Comments Med Refill Encounter Details Date Type Department Care Team Description 12/18/2019 Refill Department of Family Medicine, [place] Med Refill [facility], in [place] M.D. [place] [address] [address] [place] [address] [phone] Social History Tobacco Use Types Packs/Day Years [...] do you attend confucianist or Never 2021 mandaen services? Do you [...] or slept in a retirement (including now)? 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 PCP - General Family Medicine 08/25/18 01/08/[address] [address] documented as of this encounter
--- OUTSIDE RECORDS SUMMARY | 2022-04-10 14:56 | XMS_ITS | Encounter Summary ---
:1980 Author Organization [facility] Address [address] [place] [address] Care Team Providers Name Role Phone Matheus Feliciano M.D. Primary Care Provider [phone] Reason for Visit Reason Comments Triage Encounter Details Date Type Department Care Team Description 01/24/2020 Nurse Triage Department of [facility], Shoaib Jalloh R.N. Triage Medicine, [facility], in [address] [address] Social History Tobacco Use Types Packs/Day [...] do you attend adventism or Never 2021 cheondoism services? Do you belong to any clubs [...] place to sleep or slept in a chcf (including now)? Education Answer Date Recorded What is the highest level of school you have completed or th e 8th grade 01/09/2020 highest degree you have received? 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 PCP - General Family Medicine 01/09/[address] [place] [address] [place] [address] documented as of this encounter
--- OUTSIDE RECORDS SUMMARY | 2022-04-10 14:56 | XMS_ITS | Encounter Summary ---
:1980 Author Organization [facility] Address [address] [place] [address] Care Team Providers Name Role Phone Matheus Feliciano M.D. Primary Care Provider [phone] Reason for Visit Reason Comments Med Refill Encounter Details Date Type Department Care Team Description 06/18/2020 Refill Department of Family Medicine, [place] Med Refill [facility], in [place] M.D. [place] [address] [address] [place] [address] [phone] Social History Tobacco Use Types Packs/Day Years [...] do you attend jain or Never 2021 synagogue services? 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 PCP - General Family Medicine 01/09/[address] [place] [address] [place] [address] documented as of this encounter
--- OUTSIDE RECORDS SUMMARY | 2022-04-10 14:56 | XMS_ITS | Encounter Summary ---
:1980 Author Organization [facility] Address [address] [place] [address] Care Team Providers Name Role Phone Matheus Feliciano M.D. Primary Care Provider [phone] Encounter Details Date Type Department Care Team Description 01/09/2020 Clinical Communication Department of Matheus [facility], Prabhu Parmar, Clinic, in [place] [address] [address] [phone] Social History Tobacco Use Types Packs/Day Years [...] do you attend confucianist or Never 2021 orthodox services? 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 - 01/10/2020 11:12 AM CDT Patient is currently in the office seeing Dr. Feliciano. Telephone Encounter - Collin Ann L.P.N. - 01/09/2020 1:46 PM CDT Left message for patient to return call to clinic. Does the patient need to speak to nursing? no Action needed: Please let the patient know in order to refill her medications she will need to have an establish visit with Dr. Feliciano. Thank you. Telephone Encounter - Karly Galdamez - 01/09/2020 1:38 PM CDT Reason for Communication: Patient is calling in and stated that she is concerned because Dr. Perry used to refill her medications when she saw that they were needed. Patient states that she is notsure if she is going to need refills and of what. Patient would like a nurse to call her regarding this. Current Can Nursing/Provider leave a detailed message: yes Did the patient refuse triage through Nurse line? (for symptom based concerns): Action Needed: Please call patient back. Name of Medication (if relevant): documented in this encounter Plan of Treatment Not on filedocumented as of this encounter Visit Diagnoses Not on filedocumented in this encounter Care Teams Pre Assembly Wirer Relationship Specialty Start Date End Date Matheus Feliciano M.B.B.S., M.D. PCP - General Family Medicine 01/09/[address] [place] [phone] documented as of this encounter
--- OUTSIDE RECORDS SUMMARY | 2022-04-10 14:57 | XMS_ITS | Encounter Summary ---
:1980 Author Organization [facility] Address [address] [place] [address] Care Team Providers Name Role Phone Bonnie Franz M.D. Primary Care Provider [phone] Encounter Details Date Type Department Care Team Description 10/24/2019 Clinical Communication Department of [facility] [place] [facility], Bonnie Lauren, [facility], in [place] [phone] [place] [phone] Social History Tobacco Use Types Packs/Day Years [...] do you attend sabianism or Never 2021 presybeterian services? Do you [...] or slept in a usp (including now)? 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 PCP - General Family Medicine 08/25/18 01/08/[address] [address] documented as of this encounter
--- OUTSIDE RECORDS SUMMARY | 2022-04-10 14:57 | XMS_ITS | Encounter Summary ---
:1980 Author Organization [facility] Address [address] [place] [address] Care Team Providers Name Role Phone Bonnie Franz M.D. Primary Care Provider [phone] Reason for Visit Reason Comments Med Refill Encounter Details Date Type Department Care Team Description 03/21/2019 Refill Department of Family Medicine, [place] Dykes Refill [facility], in [place] M.D. [place] [id number] [address] [place] [address] [phone] Social History Tobacco Use Types Packs/Day Years [...] do you attend moravian or Never 2021 yarsani services? Do you [...] or slept in a correction (including now)? 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 PCP - General Family Medicine 08/25/18 01/08/[address] [address] documented as of this encounter
--- OUTSIDE RECORDS SUMMARY | 2022-04-10 14:57 | XMS_ITS | Encounter Summary ---
:1980 Author Organization [facility] Address [address] [place] [address] Care Team Providers Name Role Phone Bonnie Franz M.D. Primary Care Provider + [phone] Reason for Visit Reason Onset Date Comments Alison 09/22/2019 Encounter Details Date Type Department Care Team Description 09/22/2019 Clinical Communication Department of [facility] in Donis Mccullough M.D. [address] [place] [id number] [phone] Social History Tobacco Use Types Packs/Day Years [...] do you attend druze or Never 2021 congregational services? Do you [...] [place] [facility] (including now)? 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 PCP - General Family Medicine 08/25/18 01/08/[address] [address] documented as of this encounter
--- OUTSIDE RECORDS SUMMARY | 2022-04-10 14:57 | XMS_ITS | Encounter Summary ---
:1980 Author Organization [facility] Address [address] [place] [address] Care Team Providers Name Role Phone Bonnie Franz M.D. Primary Care Provider [phone] Reason for Visit Reason Comments Med Refill Encounter Details Date Type Department Care Team Description 05/15/2019 Refill Department of Family Medicine, Qasim Ceja P.A.-C. Med Refill [facility], in [address] [place] [phone] [place] [address] [place] [address] [phone] Social History Tobacco Use Types Packs/Day Years [...] do you attend islam or Never 2021 adventism services? Do you [...] or slept in a alf (including now)? 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 PCP - General Family Medicine 08/25/18 01/08/[address] [address] documented as of this encounter
--- OUTSIDE RECORDS SUMMARY | 2022-04-10 14:57 | XMS_ITS | Encounter Summary ---
:1980 Author Organization [facility] Address [address] [place] [address] Care Team Providers Name Role Phone Bonnie Franz M.D. Primary Care Provider + [phone] Encounter Details Date Type Department Care Team Description 09/21/2019 Nurse Triage Department of Family Dara Galdamez R.N. Medicine, [facility], [address] [facility] in [place], [place] [address] [place] [address] [place] [address] [phone] Social History Tobacco Use Types Packs/Day Years [...] do you attend methodist or Never 2021 congregation services? Do you belong to any clubs [...] or slept in a fpc (including now)? 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 PCP - General Family Medicine 08/25/18 01/08/[address] [phone] documented as of this encounter
--- OUTSIDE RECORDS SUMMARY | 2022-04-10 14:57 | XMS_ITS | Encounter Summary ---
:1980 Author Organization [facility] Address [address] [place] [address] Care Team Providers Name Role Phone Bonnie Franz M.D. Primary Care Provider [phone] Reason for Visit Reason Comments Cough Appointment Request (Routine) - Closed Specialty Diagnoses / Procedures Referred By Contact Refer red To Contact Family Medicine Referral ID Status Reason Start Date Expiration Date Visits Requ ested Visits Authorized [id number] Closed 10/24/2019 10/23/2020 1 1 Encounter Details Date Type Department Care Team Description 10/24/2019 Office Visit Department of [facility] Ashwini Felipe [facility] (Primary Dx); Medicine, [place] Bonnie shoemaker M.D. [facility], in [address] [address] [place], [place] [phone] [address] (Work) [phone] Social History Tobacco Use Types Packs/Day Years [...] do you attend pentecostalism or Never 2021 amish services? Do you [...] or slept in a assisted (including now)? 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 - 10/24/2019 3:00 PM CDT SUBJECTIVE Chief Complaint Patient presents with ??? Cough HISTORY OF PRESENT ILLNESS Gricelda Roberts is a 38 y.o. female who presents to the clinic today for a cough. For 2 weeks, shehas had a cough and runny nose, fatigue, and sneezing. She had some mild GI symptoms. Over the past several days, cough is more productive, she has developed facial pain and pressure and left ear pain. The patient denies any additional questions or concerns at this time. REVIEW OF SYSTEMS Please see HPI for pertinent positives, otherwise rest of ROS negative. CURRENT MEDICATIONS Current Outpatient Medications Medication Sig Dispense Refill ??? adapalene (DIFFERIN) 0.1 % cream Apply topically at bedtime. ??? ascorbic acid,vitamin C,,bulk, 100 % powder Take by mouth daily. ??? atomoxetine (STRATTERA) 80 mg capsule TAKE 1 CAPSULE(80 MG) BY MOUTH DAILY 90 capsule 0 ??? busPIRone (BUSPAR) 30 mg tablet Take [...] Take 2,000 Units by mouth daily. ??? citalopram (CeleXA) 40 mg tablet Take 1 tablet by mouth daily. ??? cyanocobalamin (VITAMIN B12) 1,000 mcg/mL injection INJECT 1 ML IN THE MUSCLE ONCE A MONTH 3 mL 3 ??? diclofenac sodium (VOLTAREN) 1 % gel Apply 4 g topically 4 (four) times a day as needed (Pain). 300 g 2 ??? dicyclomine (BENTYL) 10 mg capsule Take 10 mg by mouth as needed. ??? escitalopram (LEXAPRO) 20 mg tablet TAKE 1 TABLET BY MOUTH EVERY DAY 90 tablet 3 ??? fluticasone (FLONASE) 50 mcg/actuation nasal spray Administer 2 sprays into each nostril daily. 16 g 11 ??? fluticasone propionate (FLONASE) 50 mcg/actuation nasal spray Administer 2 sprays into each nostril daily. 16 g 11 ??? gabapentin (NEURONTIN) 300 mg capsule TAKE 3 CAPSULES(900 MG) BY MOUTH THREE TIMES DAILY 810 capsule 3 ??? levETIRAcetam (KEPPRA) 500 mg tablet TAKE 1 TABLET BY MOUTH TWICE DAILY 180 tablet 3 ??? levothyroxine (SYNTHROID, LEVOTHROID) 75 mcg tablet TAKE 1 TABLET BY MOUTH ONCE DAILY 90 tablet 3 ??? lidocaine (LIDODERM) 5 % Place 1 patch on the skin daily. Apply to intact skin and remove patch after a maximum of 12 hr of application within a 24 hr period 90 patch 3 ??? LORazepam (ATIVAN) 1 mg tablet Take 1 tablet (1 mg total) by mouth as directed. 1 tablet 0 ??? MULTIVITAMIN ORAL Take 2 tablets by mouth daily. ??? nystatin-triamcinolone (MYCOLOG II) 100,000 Unit/g-0.1 % cream Apply 0.5 inches topically as needed. ??? omega-3 fatty acids-fish oil 300-1,000 mg capsule Take 1 g by mouth daily. 1200 mg ??? ondansetron (ZOFRAN) 8 mg tablet Take 1 tablet by mouth as needed. ??? ondansetron ODT (ZOFRAN-ODT) 4 mg disintegrating tablet ??? pantoprazole (PROTONIX) 40 mg EC tablet Take 40 mg by mouth at bedtime. ??? vitamin-iron fumarate-FA ( MULTIVITAMINS) 28 mg iron- 800 mcg per tablet Take 1capsule by mouth 2 (two) times a day. ??? PROCTOZONE-HC 2.5 % rectal cream ??? promethazine (PHENERGAN) 25 mg tablet Take 25 mg by mouth as needed. ??? SUMAtriptan (IMITREX) 100 mg tablet as needed. ??? syringe, disposable, 1 mL syringe 1 each every 30 (thirty) days. 25 Syringe 1 ??? syringe, disposable, 1 mL syringe 1 Device by not applicable route. ??? topiramate (TOPAMAX) 100 mg tablet After completion of titration with 25 mg tabs, switch to 100 mg tab and take 1 tab nightly. 90 tablet 3 ??? topiramate (TOPAMAX) 25 mg tablet 1 tab every PM for 1 week, then increase by 25 mg each week toa goal dose of 100 mg nightly then switch to 100 mg tablets 42 tablet 0 ??? ZOLMitriptan (ZOMIG) 5 mg tablet Take by mouth as needed. ??? cyclobenzaprine (FLEXERIL) 10 mg tablet Take 1 tablet (10 mg total) by mouth 3 (three) times a day as needed for muscle spasms. 30 tablet 0 ??? doxycycline hyclate (VIBRAMYCIN) 100 mg capsule Take 1 capsule (100 mg total) by mouth 2 (two) times a day for 10 days. 20 capsule 0 ??? SUMAtriptan (IMITREX) 100 mg tablet Take 1 tablet (100 mg total) by mouth once for 1 dose. 9 tablet 3 ??? traZODone (DESYREL) 100 mg tablet Take 1 tablet (100 mg total) by mouth daily. 90 tablet 3 No current facility-administered medications for this visit. ALLERGIES / CONTRAINDICATIONS Allergies Allergen Reactions ??? Cephalexin Other (see [...] OF FALLOPIAN TUBE BY VAGINAL APPROACH 11/13/2007 PREVENTIVE SERVICES: SOCIAL HISTORY Social History Tobacco Use ??? Smoking status: Former Smoker Types: Cigarettes ??? Smokeless tobacco: Never Used Substance Use Topics ??? Alcohol use: No ??? Drug use: No OBJECTIVE VITAL SIGNS BP 115/76 (BP Location: Left arm, Patient Position: Sitting, Cuff Size: Regular) Pulse 79 Temp 36.4 ??C (Temporal) Resp 12 Wt 86.6 kg SpO2 96% BMI 31.89 kg/m?? PHYSICAL EXAMINATION General: Patient is alert and oriented times three, in no acute distress, good hygiene and is dressed appropriately. HEENT: Tympanic membranes are normal bilaterally. Oropharynx is without erythema or exudate. Nasal mucosa is without injection. Neck is without adenopathy. Maxillary sinus tenderness. Lymph Nodes: Not palpably enlarged and no nodules are palpated. Heart: Regular rate and rhythm without murmur. Lungs: Rhonchi in the right lower lung field. Extremities: Within normal limits. Skin: No rashes or suspicious lesions noted on exposed skin. ASSESSMENT / PLAN #1 Cough #2 Sinusitis Acute PLAN: Will treat with doxycycline 100 mg twice daily for 10 days. Continue with symptomatic measuresincluding Flonase and Afrin nasal spray, which they have at home. #3 Follow up PLAN: The patient will contact the clinic with any new or worsening symptoms. This document serves as a record of services personally performed by Dr. Bonnie Franz.It was created on their behalf by Cesilia Lucia, a trained medical sales. The creation of this record is based on the scribe's personal observations and the provider's statements to them. This documenthas been checked and approved by the attending provider. documented in this encounter Plan of Treatment Not on filedocumented as of this encounter Results DX Chest AP or PA and Lateral 2 Views (10/24/2019 3:46 PM CDT) Anatomical Region Laterality Modality Chest, Thoracic RST LOS, Thoracic ARZ LOS, Thoracic N/A Digital Radiography FLA LOS Specimen (Source) Anatomical Collection Method Collection Time Re ceived Time Location / / Volume Laterality 10/24/2019 4:42 PM CDT Impressions 10/24/2019 4:43 PM CDT No cardiomegaly, pleural effusion or lung consolidation. Narrative 10/24/2019 4:43 PM CDT EXAM: DX CHEST AP OR PA AND LATERAL 2 VIEWS Procedure Note Javi Eagle M.D. - 10/24/2019Formatt ing of this note might be different from the original. EXAM: DX CHEST AP OR PA AND LATERAL 2 EWS IMPRESSION: No cardiomegaly, pleural effusion or dexter g consolidation. Bonnie Franz M.D. IMG DIAGNOSTIC IMAGING PROCEDURES documented in this encounter Visit Diagnoses Diagnosis Cough Unspecified Type - Primary Sinusitis Acute Cough Unspecified Type documented in this encounter Care Teams Cd Technician Relationship Specialty Start Date End Date Bonnie Franz M.D. PCP - General Family Medicine 08/25/18 01/08/[address] [phone] documented as of this encounter
--- OUTSIDE RECORDS SUMMARY | 2022-04-10 14:57 | XMS_ITS | Encounter Summary ---
:1980 Author Organization [facility] Address [address] [place] [address] Care Team Providers Name Role Phone Bonnie Franz M.D. Primary Care Provider + [phone] Encounter Details Date Type Department Care Team Description 04/21/2019 Clinical Communication [facility], [facility], [address] [place], [place] [address] [place] [address] [facility] [phone] Social History Tobacco Use Types Packs/Day Years [...] do you attend restorationist or Never 2021 episcopal services? Do you [...] or slept in a jail (including now)? 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 She was then transferred over to scheduling to make the appropriate appointments. Telephone Encounter - Rosalba Gray - 04/21/2019 12:56 PM CDT Reason for Communication: Patients Amador calling in and is looking to get patient scheduled with ENT for right ear pain (no draining). I advised that patient would need to have audiology done prior to having the ENT appt scheduled. Patient states that she just wants ENT appt scheduled, just hada hearing exam done within the last 6 months through [facility]. would like a call back. Current Can Nursing/Provider leave a detailed message: Did the patient refuse triage through Nurse line? (for symptom based concerns): Action Needed: Call back Name of Medication (if relevant): documented in this encounter Plan of Treatment Not on filedocumented as of this encounter Visit Diagnoses Not on filedocumented in this encounter Care Teams Architectural Designer Relationship Specialty Start Date End Date Bonnie Franz M.D. PCP - General Family Medicine 08/25/18 01/08/20 [address], [place] [address] documented as of this encounter
--- OUTSIDE RECORDS SUMMARY | 2022-04-10 14:57 | XMS_ITS | Encounter Summary ---
:1980 Author Organization [facility] Address [address] [place] [address] Care Team Providers Name Role Phone Bonnie Franz M.D. Primary Care Provider [phone] Reason for Visit Reason Comments Med Refill Encounter Details Date Type Department Care Team Description 05/02/2019 Refill Department of Family Medicine, Simon Dykes Refill [facility], in Bonnie Blackwell M.D. [place] [id number] [address] [place] [address] [phone] Social History Tobacco Use Types Packs/Day Years [...] do you attend protestant or Never 2021 moravian services? 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 PCP - General Family Medicine 08/25/18 01/08/[address] [address] documented as of this encounter
--- OUTSIDE RECORDS SUMMARY | 2022-04-10 14:57 | XMS_ITS | Encounter Summary ---
:1980 Author Organization [facility] Address [address] [place] [address] Care Team Providers Name Role Phone Bonnie Franz M.D. Primary Care Provider + [phone] Encounter Details Date Type Department Care Team Description 05/02/2019 Diagnostic Department of Abigail Calabrese Sensorineura l Hearing Otorhinolaryngology in [place] Fraire.Leia Loss Unilateral Left [place], [place] Ear With Unrestricted [address] [place] [address] Contralateral Side [phone] (Primary Dx) Social History Tobacco Use Types Packs/Day Years [...] do you attend confucianist or Never 2021 alevism services? Do you [...] or slept in a mcc (including now)? 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 - 05/02/2019 8:22 AM CDT SUBJECTIVE CHIEF COMPLAINT / REASON FOR VISIT ?? Right ear otalgia HISTORY OF PRESENT COMPLAINT Mrs. Gricelda Roberts is a 38 year old woman who presents for audiological evaluation. For about one month, she has had pain in the right ear. Today she rated the pain as a 6 on a 0 to 10 scale of severity. She reported that she also has popping on the right side when she speaks. She reportedly had no symptoms of illness at the time of the onset of these ear symptoms. She has had intermittent, bilateral ringing tinnitus for many years. For this past month she has had some sudden sensations of on-feet imbalance, but no vertigo. Mrs. Roberts's history was positive for noise exposure (recreational, firearm use-right handed). 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 She denies: otorrhea, history of ear infections, and prior ear surgery. OBJECTIVE See Audiological Evaluation Form ASSESSMENT/PLAN Otoscopy demonstrated no excessive cerumen in the external auditory canals. ?? Right Ear: Hearing is within normal limits with minimal air-bone gaps at 250 and 500 Hz. . ?? Left Ear: Hearing is within normal limits with the exception of a mild, sensorineural hearing loss at 3000 and 4000 Hz. Excellent word recognition abilities. Tympanometry indicated normal middle ear pressure with slightly reduced compliance on both sides (Type As). CARE PLAN ?? Hearing conservation (discussed with the patient). Recommended continued, careful use of hearing protection as appropriate. ?? Re-evaluate in three years, sooner if change in hearing, tinnitus and/or balance status suspected. documented in this encounter Plan of Treatment Not on filedocumented as of this encounter Procedures Procedure Name Priority Date/Time Associated Diagnosis Comme nts AUDIOLOGY EVALUATION 05/02/2019 12:00 AM CDT documented in this encounter Results AUDIOLOGY EVALUATION (05/02/2019 12:00 AM CDT) Specimen (Source) Anatomical Location Collection Method / Collectio n Time Received Time / Laterality Volume 05/02/2019 Narrative This result has an attachment that is no t available. Abigail Fraire, M.A. AUDIOLOGY SERVICES ORDERABLE S documented in this encounter Visit Diagnoses Diagnosis Sensorineural Hearing Loss Unilateral Le ft Ear With Unrestricted Hearing On The Contralateral Side - Primary documented in this encounter Care Teams Clark Driver Relationship Specialty Start Date End Date Bonnie Franz M.D. PCP - General Family Medicine 08/25/18 01/08/[address] [phone] documented as of this encounter
--- OUTSIDE RECORDS SUMMARY | 2022-04-10 14:57 | XMS_ITS | Encounter Summary ---
:[address] [facility] Address [address] [place] [address] Care Team Providers Name Role Phone Bonnie Franz M.D. Primary Care Provider + [phone] Reason for Visit Reason Comments COVID Nurse Line Encounter Details Date Type Department Care Team Description 12/16/2019 Nurse Triage Department of [facility] Nolvia Tomlinson COVI D Nurse Line Medicine, [facility], [facility] in [place], [place] [address] [facility] [address] [place] [phone] Social History Tobacco Use Types Packs/Day Years [...] do you attend adventism or Never 2021 religion services? 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 PCP - General Family Medicine 08/25/18 01/08/20 [address] [place] [address] documented as of this encounter
--- OUTSIDE RECORDS SUMMARY | 2022-04-10 14:57 | XMS_ITS | Encounter Summary ---
:1980 Author Organization [facility] Address [address] [place] [address] Care Team Providers Name Role Phone Bonnie Franz M.D. Primary Care Provider + [phone] Encounter Details Date Type Department Care Team Description 04/21/2019 Clinical Communication Department of Family [place] [facility], Bonnie Lauren, [facility], in Ana Blackwell [place] [phone] [address] [place] [phone] Social History Tobacco Use Types Packs/Day Years [...] do you attend pentecostalism or Never 2021 hinduism services? Do you [...] or slept in a fci (including now)? 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 PCP - General Family Medicine 08/25/18 01/08/[address] [phone] documented as of this encounter
--- OUTSIDE RECORDS SUMMARY | 2022-04-10 14:57 | XMS_ITS | Encounter Summary ---
:1980 Author Organization [facility] Address [address] [place] [address] Care Team Providers Name Role Phone Bonnie Franz M.D. Primary Care Provider + [phone] Reason for Visit Reason Comments Abdominal Pain Left side mid abdomen X 1 da y Appointment Request (Routine) - Closed Specialty Diagnoses / Procedures Referred By Contact Refer red To Contact Family Medicine Referral ID Status Reason Start Date Expiration Date Visits Requ ested Visits Authorized [id number] Closed 09/14/2019 09/13/2020 1 1 Encounter Details Date Type Department Care Team Description 09/19/2019 Office Visit Department of Family Qsaim Meza Di arrhea (Primary Dx) Medicine in [facility] [address] [facility] [address] [place] [phone] Social History Tobacco Use Types Packs/Day Years [...] do you attend evangelical or Never 2021 islam services? Do you [...] or slept in a prison (including now)? 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 - 09/19/2019 2:30 PM CST CHIEF COMPLAINT / REASON FOR VISIT Gricelda Roberts is a 38 y.o. female who presents for evaluation of Abdominal Pain (Left side mid abdomen X 1 day). HISTORY OF PRESENT ILLNESS Gricelda presents today with complaints of diarrhea. This has been going on for last week and she has a pain in her left upper quadrant. She has a history of bariatric surgery as well. No one else has been sick she has not had nausea or vomiting but has had watery diarrhea for the last week. OBJECTIVE Vitals: 09/19/19 1431 BP: 100/62 BP Location: Left arm Patient Position: Sitting Cuff Size: Large Pulse: 88 Temp: 37.1 ??C Weight: 88 kg Body mass index is 32.4 kg/m??. PHYSICAL EXAM General: Patient appears in no acute distress. Heart: Regular rate and rhythm. No murmurs. Lungs: Clear to auscultation. Abdomen: Soft and nontender to palpation. She typically has been having pain in her left upper quadrant but it is nontender at this time IMPRESSION / REPORT / PLAN #1 Diarrhea Her symptoms have been present for a week. I am going to check a GI pathogen panel. I will notify when I get the results if she has any further questions or problems she will let us know. I stressed the importance of her keeping well hydrated Qasim Meza P.A.-C. H PIECER documented in this encounter Plan of Treatment Not on filedocumented as of this encounter Procedures Procedure Name Priority Date/Time Associated Diagnosis Comme nts GI PATHOGEN PANEL, Routine 09/19/2019 3:08 PM Diarrhea Res ults for this PCR, F CLOTH PIECER procedure are i n the results section. documented in this encounter Results GI Pathogen Panel, PCR, Feces (09/19/2019 3:08 PM CLOTH PIECER) [facility] gist Method Time Signature Specimen Source STOOL 09/20/2019 AUST 11:00 AM CLOTH PIECER Campylobacter Negative Negative 09/20/2019 AUST species 11:00 AM CLOTH PIECER C. difficile toxin Negative Negative 09/20/2019 AUST 11:00 AM CLOTH PIECER Plesiomonas Negative Negative 09/20/2019 AUST shigelloides 11:00 AM CLOTH PIECER Salmonella species Negative Negative 09/20/2019 AUST 11:00 AM CLOTH PIECER Vibrio species Negative Negative 09/20/2019 AUST 11:00 AM CLOTH PIECER Vibrio cholerae Negative Negative 09/20/2019 AUST 11:00 AM CLOTH PIECER Yersinia species Negative Negative 09/20/2019 AUST 11:00 AM CLOTH PIECER Enteroaggregative E. Negative Negative 09/20/2019 AUST coli (EAEC) 11:00 AM CLOTH PIECER Enteropathogenic E. Negative Negative 09/20/2019 AUST coli (EPEC) 11:00 AM CLOTH PIECER Enterotoxigenic E. Negative Negative 09/20/2019 AUST coli (ETEC) 11:00 AM CLOTH PIECER Shiga toxin Negative Negative 09/20/2019 AUST producing E. coli 11:00 AM CLOTH PIECER Shigella/Enteroinvas Negative Negative 09/20/2019 AUST jennie E. coli 11:00 AM CLOTH PIECER Cryptosporidium Negative Negative 09/20/2019 AUST species 11:00 AM CLOTH PIECER Cyclospora Negative Negative 09/20/2019 AUST cayetanensis 11:00 AM CLOTH PIECER Entamoeba Negative Negative 09/20/2019 AUST histolytica 11:00 AM CLOTH PIECER Giardia Negative Negative 09/20/2019 AUST 11:00 AM CLOTH PIECER Adenovirus F40/41 Negative Negative 09/20/2019 AUST 11:00 AM CLOTH PIECER Astrovirus Negative Negative 09/20/2019 AUST 11:00 AM CLOTH PIECER Norovirus GI/GII Negative Negative 09/20/2019 AUST 11:00 AM CLOTH PIECER Rotavirus Ag, F Negative Negative 09/20/2019 AUST 11:00 AM CLOTH PIECER Sapovirus Negative Negative 09/20/2019 AUST 11:00 AM CLOTH PIECER Comment: ----ADDITIONAL INFORMATION---- This assay is performed using the FDA-cl eared Mozzo AnalyticsArray GI Panel ([employer] Specimen Anatomical Collection Method Collection Time Receive d Time (Source) Location / / Volume Laterality Stool (Stool) 09/19/2019 3:08 PM 09/19/19 9:05 CLOTH PIECER PM CLOTH PIECER Qasim Meza P.A.-C. LAB MICROBIOLOGY - GENERAL O RDERABLES Performing Organization Address City/State/ZIP Code Phon e Number [facility]- [address] [place] [address] [facility] [place], [place] [id number] [place] [address] documented in this encounter Visit Diagnoses Diagnosis Diarrhea - Primary documented in this encounter Care Teams Service Restorer Emergency Relationship Specialty Start Date End Date Bonnie Franz M.D. PCP - General Family Medicine 08/25/18 01/08/20 [address] [place] [address] documented as of this encounter
--- OUTSIDE RECORDS SUMMARY | 2022-04-10 14:57 | XMS_ITS | Encounter Summary ---
:1980 Author Organization [facility] Address [address] [place] [address] Care Team Providers Name Role Phone Bonnie Franz M.D. Primary Care Provider [phone] Encounter Details Date Type Department Care Team Description 10/24/2019 E-Visit [facility] Express Kenrick Paz R E: E-Visit Submission: Care at the [place] Christina STEWART, M .S.N. Sinus symptoms [address] [place] [address] [address] [place], [place] [address] [place] [address] [place], [place] [phone] (Wo rk) [phone] Social History Tobacco Use Types Packs/Day Years [...] do you attend quaker or Never 2021 restorationist services? 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 PCP - General Family Medicine 08/25/18 01/08/[address] [address] documented as of this encounter
--- OUTSIDE RECORDS SUMMARY | 2022-04-10 14:57 | XMS_ITS | Encounter Summary ---
:1980 Author Organization [facility] Address [address] [place] [address] Care Team Providers Name Role Phone Bonnie Franz M.D. Primary Care Provider + [phone] Reason for Visit Reason Comments Follow-up In ER for pain in abdomen. T hen pain went to lower abdomen. Had vomiting, diarrhea and dark stools. Th ey would like a hemoglobin done and her keytones were elevated. Feel ing alittle better. Appointment Request (Routine) - Closed Specialty Diagnoses / Procedures Referred By Contact Refer red To Contact Family Medicine Referral ID Status Reason Start Date Expiration Date Visits Requ ested Visits Authorized [id number] Closed 09/22/2019 09/21/2020 1 1 Encounter Details Date Type Department Care Team Description 09/23/2019 Office Visit Department of [facility] Yuli wilder Epigastric Medicine, Bonnie Lauren, (Primary Dx) Clinic, in [place] [address] [place] [phone] Social History Tobacco Use Types Packs/Day Years [...] do you attend jain or Never 2021 sikhism services? Do you belong to any clubs [...] slept in a senior care (including now)? 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 - 09/23/2019 11:45 AM CST SUBJECTIVE Chief Complaint Patient presents with ??? Follow-up In ER for pain in abdomen. Then pain went to lower abdomen. Had vomiting, diarrhea and dark stools.They would like a hemoglobin done and her keytones were elevated. Feeling alittle better. HISTORY OF PRESENT ILLNESS Gricelda Roberts is a 38 y.o. female with a history of gastric bypass, who presents to the clinic today for emergency room follow up for possible GI bleed. She was initially seen by Qasim Meza PA-C on 09/19/2019 for abdominal pain. Stool sample was obtained, which was normal. The morning that Collin called her with the results, she had had significant pain, watery diarrhea, and nausea. She had also found that her stools were black and tarry. She was seen at [facility] emergency room on 09/21/2019. For the previous 2 weeks, she hadbeen experiencing relatively persistent left upper quadrant pain, which she described as sharp and pinching without radiation. Two days prior her to emergency room visit, she developed new abdominal cramping across the lower abdomen with associated nausea and vomiting. She had not even been able to take her medications, including her antiepileptics. CT abdomen/pelvis was obtained which showed no evidence for bowel obstruction. 4 mm nonobstructing calculi inferior pole left kidney. Cholecystectomy. I ntrahepatic biliary duct dilatation most likely related to reservoir effect. Diffuse urinary bladderwall thickening. UA was normal with the exception of elevated ketones, chemistry panel was normal, CBC was normal, and LFTs were normal. While waiting for the CT results, she did have a seizure where she noticed right arm tonic clonic activity last ~15 seconds, followed by some lethargy and confusion. They were concerned about GI bleed. They started her on Protonix and told her to follow up. Since starting the Protonix, she is still nauseated, having diarrhea, and still having the abdominalpain. She had a black, watery stool this morning. The patient denies any additional questions or [...] ONCE A MONTH 3 mL 3 ??? dicyclomine (BENTYL) 10 mg capsule Take 10 mg by mouth as needed. ??? escitalopram (LEXAPRO) 20 mg tablet TAKE 1 TABLET BY MOUTH EVERY DAY 90 tablet 3 ??? famotidine (PEPCID) 20 mg tablet Take 20 mg by mouth 2 (two) times a day. ??? fluticasone (FLONASE) 50 mcg/actuation nasal spray [...] Take 2 tablets by mouth daily. ??? omega-3 fatty acids-fish oil 300-1,000 mg capsule Take 1 g by mouth daily. 1200 mg ??? ondansetron (ZOFRAN) 8 mg tablet Take 1 tablet by mouth as needed. ??? pantoprazole (PROTONIX) 40 mg EC tablet Take 40 mg by mouth at bedtime. ??? vitamin-iron fumarate-FA ( MULTIVITAMINS) 28 mg iron- 800 mcg per tablet Take 1capsule by mouth 2 (two) times a day. ??? SUMAtriptan (IMITREX) 100 mg tablet as needed. ??? syringe, disposable, 1 mL syringe 1 each every 30 (thirty) days. 25 Syringe 1 ??? ZOLMitriptan (ZOMIG) 5 mg tablet Take by mouth as needed. ??? citalopram (CeleXA) 40 mg tablet Take 1 tablet by mouth daily. ??? cyclobenzaprine (FLEXERIL) 10 mg tablet Take 1 tablet (10 mg total) by mouth 3 (three) times a day as needed for muscle spasms. 30 tablet 0 ??? diclofenac sodium (VOLTAREN) 1 % gel Apply 4 g topically 4 (four) times a day as needed (Pain). (Patient not taking: Reported on 09/19/2019 ) 300 g 2 ??? fluticasone propionate (FLONASE) 50 mcg/actuation nasal spray Administer 2 sprays into each nostril daily. 16 g 11 ??? LORazepam (ATIVAN) 1 mg tablet Take 1 tablet (1 mg total) by mouth as directed. (Patient not taking: Reported on 09/19/2019 ) 1 tablet 0 ??? nystatin-triamcinolone (MYCOLOG II) 100,000 Unit/g-0.1 % cream Apply 0.5 inches topically as needed. ??? ondansetron ODT (ZOFRAN-ODT) 4 mg disintegrating tablet ??? PROCTOZONE-HC 2.5 % rectal cream ??? promethazine (PHENERGAN) 25 mg tablet Take 25 mg by mouth as needed. ??? SUMAtriptan (IMITREX) 100 mg tablet Take [...] nightly then switch to 100 mg tablets (Patient not taking: Reported on 09/19/2019 ) 42 tablet 0 ??? traZODone (DESYREL) 100 mg tablet Take [...] Drug use: No OBJECTIVE VITAL SIGNS BP 109/74 (BP Location: Left arm, Patient Position: Sitting, Cuff Size: Regular) Pulse 85 Temp 36.3 ??C (Temporal) Resp 16 Wt 88.3 kg BMI 32.51 kg/m?? PHYSICAL EXAMINATION General: Patient is alert and oriented times three, in no acute distress, good hygiene and is dressed appropriately. Lymph Nodes: Not palpably enlarged and no nodules are palpated. Heart: Regular rate and rhythm without murmur. Lungs: Clear to auscultation. Abdomen: Soft with no masses. Tenderness in the epigastrium and left lower quadrant. Extremities: Within normal limits. Skin: No rashes or suspicious lesions noted on exposed skin. DIAGNOSTICS Lab Results Component Value Date HGB 13.7 09/23/2019 ASSESSMENT / PLAN #1 Pain Epigastric PLAN: Hemoglobin is stable. She will complete 14 day course of Protonix and at that time, she will switch to Pepcid. She will continue to monitor. If her pain continues or worsens, will likely need to proceed with upper GI endoscopy. #2 Follow up PLAN: The patient will contact the clinic with any new or worsening symptoms. This document serves as a record of services personally performed by Dr. Bonnie Franz.It was created on their behalf by Cesilia Lucia, a trained medical records coder. The creation of this record is based on the scribe's personal observations and the provider's statements to them. This documenthas been checked and approved by the attending provider. RITY ORDERLY documented in this encounter Plan of Treatment Not on filedocumented as of this encounter Procedures Procedure Name Priority Date/Time Associated Diagnosis Comme nts HEMOGLOBIN, B Routine 09/23/2019 12:36 PM Pain Epigastric Resu lts for this SECURITY ORDERLY procedure are i n the results section . documented in this encounter Results Hemoglobin (09/23/2019 12:36 PM SECURITY ORDERLY) P athologist Signature Hemoglobin 13.7 11.6 - 15.0 09/23/2019 FB60 g/dL 12:42 PM SECURITY ORDERLY Specimen Anatomical Collection Method Collection Time Receive d Time (Source) Location / / Volume Laterality Blood (Blood, 09/23/2019 12:36 09/23/2019 Venous) PM SECURITY ORDERLY 12:37 PM SECURITY ORDERLY Bonnie Franz M.D. LAB BLOOD ADD-ON Performing Organization Address City/State/ZIP Code Phon e Number [facility]- [facility] [place] [address] [facility] [address] [place] [address] System in [place] [address] documented in this encounter Visit Diagnoses Diagnosis Pain Epigastric - Primary documented in this encounter Care Teams Neurology Hospitalist Relationship Specialty Start Date End Date Bonnie Franz M.D. PCP - General Family Medicine 08/25/18 01/08/[address] [place] [phone] documented as of this encounter
--- OUTSIDE RECORDS SUMMARY | 2022-04-10 14:57 | XMS_ITS | Encounter Summary ---
:1980 Author Organization [facility] Address [address] [place] [address] Care Team Providers Name Role Phone Bonnie Franz M.D. Primary Care Provider [phone] Reason for Visit Reason Comments Med Refill Encounter Details Date Type Department Care Team Description 11/08/2019 Refill Department of Family Medicine, [place] [facility] Med Refill [facility], in Bonnie Blackwell M.D. [place] [phone] [address] [place] [address] [phone] Social History Tobacco Use Types Packs/Day Years [...] do you attend sabianist or Never 2021 restorationism services? Do you [...] slept in a group home (including now)? 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 PCP - General Family Medicine 08/25/18 01/08/[address] [address] documented as of this encounter
--- OUTSIDE RECORDS SUMMARY | 2022-04-10 14:57 | XMS_ITS | Encounter Summary ---
:1980 Author Organization [facility] Address [address] [place] [address] Care Team Providers Name Role Phone Bonnie Franz M.D. Primary Care Provider + [phone] Encounter Details Date Type Department Care Team Description 04/23/2019 Office Visit [facility] Lisseth Johnson initis Allergic Care at [facility] PAT Jalloh C.NRafalPRafal (Primary Dx) [address] [place] [phone] [phone] (Wo rk) Social History Tobacco Use Types [...] do you attend congregation or Never 2021 presybeterian services? Do you [...] slept in a senior living (including now)? 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 - 04/23/2019 3:45 PM CDT CHIEF COMPLAINT No chief complaint on file. HISTORY OF PRESENT ILLNESS Gricelda Roberts is a 38 y.o. female presents with complaints of right ear pain and popping, for about 2 weeks. History provided by Patient. Associated symptoms: sore throat this morning. They were [employer] and had a free ear exam with a projection of the ear drum and it was yellow. Patient denies:chills, fatigue, fever, headache and URI symptoms. No other concerns noted today. She currently uses Zyrtec daily and Flonase 1 spray per nare daily, no NS rinses. The following portions of the patient's history were reviewed: family history, social history, surgical history and problem list. EXAM General: Alert, oriented, no acute distress, Eyes: Without conjunctival injection, no drainage present, Nose: congested, pale and clear rhinorrhea, Right ear: TM without erythema, no bulging, light reflex present, slight serous fluid line. Canal without erythema, swelling, or drainage present, Left ear: TM without erythema, no bulging, light reflex present. Canal without erythema, swelling, or drainage present, Pharynx: cobblestoning present and clear posterior pharyngeal drainage present, Lymph: No cervical, submandibular, submental, auricular, or supraclavicular adenopathy present, Lung: Respirations not labored, symmetric expansion. Clear to auscultation, no wheezes, rhonchi, or rales and Skin: [place], warm, dry IMPRESSION/REPORT/PLAN #1 Allergic rhinitis Treatment: over the counter medications to include Flonase after rinsing, use NeilMed kit or similarproduct, increase to 2 sprays per nare. Antihistamine use can continue. Decrease exposure to suspected allergens. Reviewed potential side effects/interactions of medications. Discussed illnesses with patient and care provider. Symptomatic cares discussed. Follow up for in-person evaluation if symptoms do not resolve with treatment, sooner if worsening. Patient has a [facility] online portal account, can view medication list electronically. Ready to learn, no apparent learning barriers were identified; learning preferences include listening. Explained diagnosis and treatment plan; patient/child/caregiver expressed understanding of the content. documented in this encounter Plan of Treatment Not on filedocumented as of this encounter Visit Diagnoses Diagnosis Rhinitis Allergic - Primary documented in this encounter Care Teams Birdcage Assembler Relationship Specialty Start Date End Date Bonnie Franz M.D. PCP - General Family Medicine 08/25/18 01/08/[address] [phone] documented as of this encounter
--- OUTSIDE RECORDS SUMMARY | 2022-04-10 14:57 | XMS_ITS | Encounter Summary ---
:1980 Author Organization [facility] Address [address] [place] [address] Care Team Providers Name Role Phone Bonnie Franz M.D. Primary Care Provider [phone] Encounter Details Date Type Department Care Team Description 10/24/2019 Hospital Encounter Department of Radiology Lorelei Sanz Cough in [facility] Bonnie craven M.D. [address] [place] [address] [place], [place] [phone] [address] Social History Tobacco Use Types Packs/Day [...] do you attend gnosticist or Never 2021 yazdanism services? Do you [...] slept in a nursing home (including now)? 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 doxycycline hyclate Take 1 capsule (100 20 capsule 0 10/23/ 020 11/03/2019 (VIBRAMYCIN) 100 mg mg total) by mouth capsule 2 (two) times a day for 10 days. adapalene (DIFFERIN) 0.1 Apply topically at 0 10/07/2021 % cream bedtime. ascorbic acid,vitamin Take by mouth 0 10/07/2021 C,,bulk, 100 % powder daily. atomoxetine (STRATTERA) TAKE 1 CAPSULE(80 90 capsule 0 08/1511/09/2019 80 mg capsule MG) BY MOUTH DAILY busPIRone (BUSPAR) 30 mg Take 1 tablet [...] into each nostril mcg/actuation nasal daily. spray gabapentin (NEURONTIN) TAKE 3 CAPSULES(900 810 capsule 3 06/201906/19/2020 300 mg capsule MG) BY MOUTH THREE TIMES DAILY levETIRAcetam (KEPPRA) TAKE 1 TABLET BY 180 tablet 3 020 05/28/2020 500 mg tablet MOUTH TWICE DAILY levothyroxine TAKE 1 TABLET BY 90 tablet 3 12/07/201811/08 (SYNTHROID, LEVOTHROID) MOUTH ONCE DAILY 75 mcg tablet LORazepam (ATIVAN) 1 mg [...] mL syringe applicable route. topiramate (TOPAMAX) 100 After completion of 90 tablet 3 12/05/2019 mg tabletIndications: titration with 25 Migraine Headache mg tabs, switch to 100 mg tab and take 1 tab nightly. topiramate (TOPAMAX) 25 1 tab every PM for 42 tablet 0 05/02/201912/05/2019 mg tabletIndications: 1 week, then Migraine Headache increase by 25 mg each week to a goal dose of 100 mg nightly then switch to 100 mg tablets traZODone (DESYREL) 100 Take 1 tablet (100 90 tablet 3 08/1004/04/2020 mg tablet mg total) by mouth daily. ZOLMitriptan (ZOMIG) 5 Take by mouth as 0 06/24/2021 mg tablet needed. documented as of this encounter Plan of Treatment Not on filedocumented as of this encounter Procedures Procedure Name Priority Date/Time Associated Comments Diagnosis DX CHEST AP OR PA RAD - Routine 10/24/2019 3:46 Cough Result s for this AND LATERAL 2 (most inpatients PM CDT procedure are in VIEWS and all [...] encounter Visit Diagnoses Diagnosis Cough Unspecified Type documented in this encounter Care Teams Sharepoint Trainer Relationship Specialty Start Date End Date Bonnie Franz M.D. PCP - General Family Medicine 08/25/18 01/08/[address] [place] [phone] documented as of this encounter
--- OUTSIDE RECORDS SUMMARY | 2022-04-10 14:57 | XMS_ITS | Encounter Summary ---
:1980 Author Organization [facility] Address [address] [place] [address] Care Team Providers Name Role Phone Bonnie Franz M.D. Primary Care Provider + [phone] Encounter Details Date Type Department Care Team Description 10/24/2019 Nurse Triage [facility] Linda Nicole, Medicine, [facility], in M.S. , M.S.N., R.N. [place], [place] [address] [place] [address] Social History Tobacco Use Types Packs/Day Years [...] do you attend anglican or Never 2021 sikh services? 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 - 10/24/2019 1:36 PM CDT 1. Does patient have fever OR new respiratory symptoms? Y/N Yes If no to #1, consider alternative diagnosis. We are not currently testing or isolating asymptomatic patients. If yes to #1 then proceed to #2. 2. Has the patient had close contact with a person with a LABORATORY CONFIRMED case of COVID-19? Y/NNo If no to Lab Confirmed case contact then proceed to question #3. If yes to Lab Confirmed case contact then proceed to emergency symptoms assessment and positive screen workflow for patient's region. 3. Does patient have both fever AND new respiratory symptoms? Y/N No If no to #3, consider alternative diagnosis. We are not currently testing or isolating patients thedo not have both a fever AND respiratory symptoms. If yes to #3 then proceed to #4. 4. Has the patient had air travel/cruise or domestic travel to major metropolitan areas in the last 14 days? Y/N Does patient fall into any of the high risk categories as identified by [facility] Infectious Disease? Y/N If no to travel requirements AND high risk categories then follow your triage endpoint for home care or appointment. Advise to call back if any symptoms worsen. If yes to travel requirements OR high risk categories the proceed to emergency symptoms assessment and positive screen workflow for patient's region. documented in this encounter Plan of Treatment Not on filedocumented as of this encounter Visit Diagnoses Not on filedocumented in this encounter Care Teams Image Consultant Relationship Specialty Start Date End Date Bonnie Franz M.D. PCP - General Family Medicine 08/25/18 01/08/[address] [phone] documented as of this encounter
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
--- OUTSIDE RECORDS SUMMARY | 2022-04-10 14:57 | XMS_ITS | Encounter Summary ---
:1980 Author Organization [facility] Address [address] [place] [address] Care Team Providers Name Role Phone Bonnie Franz M.D. Primary Care Provider [phone] Reason for Visit Reason Comments Med Refill Encounter Details Date Type Department Care Team Description 09/14/2019 Refill Department of Family Medicine, [place] Wiseman Med Refill [facility], in Bonnie Blackwell M.D. [place] [id number] [address] [place] [address] [phone] Social History Tobacco Use Types Packs/Day Years [...] do you attend mandaen or Never 2021 methodist services? 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 PCP - General Family Medicine 08/25/18 01/08/[address] [phone] documented as of this encounter
--- OUTSIDE RECORDS SUMMARY | 2022-04-10 14:57 | XMS_ITS | Encounter Summary ---
:1980 Author Organization [facility] Address [address] [place] [address] Care Team Providers Name Role Phone Bonnie Franz M.D. Primary Care Provider [phone] Reason for Referral Outpatient (Routine) - Closed Specialty Diagnoses / Procedures Referred By Contact Refer red To Contact Neurology Diagnoses Epilepsy Seizure Not Intractable Without Status Epilepticus (HCC) Donis Stuart M.D. [facility] [address] [place] [phone] Referral ID Status Reason Start Date Expiration Date Visits Requ ested Visits Authorized [id number] Closed 10/27/2019 10/26/2020 1 1 Reason for Visit Reason Comments Seizures Encounter Details Date Type Department Care Team Description 10/27/2019 Documentation Department of Neurology in Jori Stuart Seizures [place], [place] Ana [address] [place] [address] [place] [address] [place], [place] [phone] (Wo rk) Social History Tobacco Use Types [...] do you attend cheondoism or Never 2021 church services? Do you [...] slept in a long term (including now)? 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 - 10/27/2019 2:07 PM CDT SUBJECTIVE CHIEF COMPLAINT / REASON FOR VISIT She was originally scheduled to be seen today in clinic, but cancelled due to COVID-19 concerns. This documents a phone call in it's place. HISTORY OF PRESENT ILLNESS BACKGROUND In summary, [...] daily, which she remains on. EEG in [place] was normal. MRI in April 2016 did not show any epileptogenic lesions. In June 2016 she did stop many of her medications on her own, including her levetiracetam. She recalls that 1 night shesuddenly had very severe right-sided headache and her head started jerking (by her description to the left), and then her whole body began jerking. Importantly, she remained awake the entire time with that event. ?? CURRENT MEDICATIONS Levetiracetam 500 mg twice daily. Denies side effects. PREVIOUS MEDICATIONS None INTERVAL HISTORY She reports a seizure on September 21 of this year. She was having significant GI distress throughoutthat time, and wasn't able to keep any of her medications down, including her levetiracetam, for some time. She was at the hospital and reports being in a lot of pain. From there, her told her that she went into a seizure. Details are limited. She was said to be shaking all over. She was sore afterwards, and did not have recollection of the event. She has recovered from her GI problems and successfully resumed her regular dose of levetiracetam. ASSESSMENT / PLAN #1 Epilepsy, unclassified, etiology unknown Her recent seizure was precipitated by not being able to take her levetiracetam. It was her first event of any kind since 2016. I don't think any changes need to be made due to the circumstances. She did ask about driving. Since this appeared to be an event provoked by inability to take her medications, and she has since been able to resume the levetiracetam, I told her that I think it is ok to drive again. She has been lost to follow up, having not been able to follow up in 2019 and then today encountering some difficulty because of the pandemic. I will ask for a return sometime in the next 8-12 months to [facility]. documented in this encounter Plan of Treatment Scheduled Referrals Name Type Priority Associated Diagnoses [facility] Outpatient Referral Routine Epilepsy Seizure Not Expected: visit (clinic) Intractable Without 2019 Status Epilepticus (Approxim ate), (HCC) Expires: 10/26/2022 documented as of this encounter Visit Diagnoses Diagnosis Epilepsy Seizure Not Intractable Without Status Epilepticus (HCC) - Primary documented in this encounter Care Teams Breakfast Host Relationship Specialty Start Date End Date Bonnie Franz M.D. PCP - General Family Medicine 08/25/18 01/08/20 [address], [place] [phone] documented as of this encounter
--- OUTSIDE RECORDS SUMMARY | 2022-04-10 14:57 | XMS_ITS | Encounter Summary ---
:1980 Author Organization [facility] Address [address] [place] [address] Care Team Providers Name Role Phone Bonnie Franz M.D. Primary Care Provider + [phone] Reason for Visit Reason Comments JACKLYN Encounter Details Date Type Department Care Team Description 10/26/2019 Clinical Communication Department of Lucas Stuart Neurology in Donis Mccullough M.D. [place], [place] [address] [place] [address] [address] [place] [address] [phone] Social History Tobacco Use Types Packs/Day Years [...] do you attend mormon or Never 2021 mandaeism services? Do you [...] or slept in a penitentiary (including now)? 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 PCP - General Family Medicine 08/25/18 01/08/[address] [phone] documented as of this encounter
--- OUTSIDE RECORDS SUMMARY | 2022-04-10 14:57 | XMS_ITS | Encounter Summary ---
:1980 Author Organization [facility] Address [address] [place] [address] Care Team Providers Name Role Phone Bonnie Franz M.D. Primary Care Provider [phone] Reason for Visit Reason Comments Med Refill Encounter Details Date Type Department Care Team Description 07/19/2019 Refill Department of Family Medicine, Simon Dykes Refill [facility], in Bonnie Blackwell M.D. [place] [address] [address] [place] [address] [phone] Social History Tobacco Use Types Packs/Day Years [...] do you attend gnosticist or Never 2021 zoroastrianism services? 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 PCP - General Family Medicine 08/25/18 01/08/[address] [place] [address] [phone] documented as of this encounter
--- OUTSIDE RECORDS SUMMARY | 2022-04-10 14:57 | XMS_ITS | Encounter Summary ---
:1980 Author Organization [facility] Address [address] [place] [address] Care Team Providers Name Role Phone Bonnie Franz M.D. Primary Care Provider + [phone] Reason for Visit Reason Comments Medical Information Encounter Details Date Type Department Care Team Description 11/07/2019 Clinical Communication Department of [facility] Orthopedic Surgery martha You P.A.-C. [place] [address] [place] [phone] Social History Tobacco Use Types Packs/Day Years [...] do you attend presybeterian or Never 2021 jehovah's witness services? Do [...] or slept in a residential (including now)? 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 - 11/08/2019 9:00 AM CDT Patient notified she has been placed on waitlist for appointment with PA. Telephone Encounter - Cisco Randolph M.D. - 11/08/2019 7:27 AM CDT Should be placed on list to have appt with myself or Charanjit/Lisandra once we are seeing elective visits again Telephone Encounter - Sara Stone L.P.N. - 11/07/2019 5:54 PM CDT S- left wrist pain B- Hx of left wrist pain since 07/2019. No known injury. No previous surgery. C/o pain across entirewrist with radiation up to elbow. Denies swelling. C/o wrist wanting to give out with pulling herself up on to the bed. Is right handed. Has been taking ibuprofen without relief. Lives in [place]. Was seen in [facility] care at [facility] in [place] on 07/23/19 with xrays done. A- wants appointment for left wrist pain R- Patient notified we are currently not scheduling non emergent patients but I would forward message on to provider to review and advise on a plan of care for the future. Patient is willing to be seenin [place] or [place] where ever she can be seen sooner. Telephone Encounter - Liu Taylor - 11/07/2019 3:29 PM CDT Reason for Communication: patients called and was looking for an appt in ortho for wrist pain the patient has had for a few months, please advise. Current Can Nursing/Provider leave a detailed message: yes Did the patient refuse triage through Nurse line? (for symptom based concerns): Action Needed: Name of Medication (if relevant): documented in this encounter Plan of Treatment Not on filedocumented as of this encounter Visit Diagnoses Not on filedocumented in this encounter Care Teams Senior Business Process Analyst Relationship Specialty Start Date End Date Bonnie Franz M.D. PCP - General Family Medicine 08/25/18 01/08/20 [address] [place] [phone] documented as of this encounter
--- OUTSIDE RECORDS SUMMARY | 2022-04-10 14:57 | XMS_ITS | Encounter Summary ---
:1980 Author Organization [facility] Address [address] [place] [address] Care Team Providers Name Role Phone Bonnie Franz M.D. Primary Care Provider [phone] Reason for Visit Reason Comments Med Refill Encounter Details Date Type Department Care Team Description 11/10/2019 Refill Department of Chacorta Carlin M.D. Med Refill Medicine, [facility], [address] [place] [address], [facility] 204 [place] [address] [place] [address] [place] [address] Social History Tobacco Use Types Packs/Day [...] do you attend mormon or Never 2021 uatsdin services? Do you [...] or slept in a longterm (including now)? 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 PCP - General Family Medicine 08/25/18 01/08/[address] [phone] documented as of this encounter
--- OUTSIDE RECORDS SUMMARY | 2022-04-10 14:57 | XMS_ITS | Encounter Summary ---
:1980 Author Organization [facility] Address [address] [place] [address] Care Team Providers Name Role Phone Bonnie Franz M.D. Primary Care Provider + [phone] Reason for Visit Reason Comments Med Refill Encounter Details Date Type Department Care Team Description 12/05/2019 Refill Department of Neurology in [place] Donis mendoza M.D. Med Refill [place], [place] [address] [facility] [address] [place] [address] [place] [address] [phone] Social History Tobacco Use Types Packs/Day Years [...] do you attend latter-day or Never 2021 judaism services? Do you belong to any clubs or Yes 09/02/2021 organizations such as latter-day groups, unions, fraternal or athletic groups, or school groups? How often do you attend meetings of the More than 4 times sourav chaves year 09/02/2021 clubs or organizations you belong [...] or slept in a detention (including now)? 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 PCP - General Family Medicine 08/25/18 01/08/[address] [phone] documented as of this encounter
--- OUTSIDE RECORDS SUMMARY | 2022-04-10 14:57 | XMS_ITS | Encounter Summary ---
:1980 Author Organization [facility] Address [address] [place] [address] Care Team Providers Name Role Phone Bonnie Franz M.D. Primary Care Provider [phone] Reason for Visit Reason Comments Med Refill Encounter Details Date Type Department Care Team Description 06/27/2019 Refill Department of Family Medicine, Qasim Ceja P.A.-C. Med Refill [facility], in [address] [place] [phone] [place] [address] [place] [address] [phone] Social History Tobacco Use Types Packs/Day Years [...] do you attend latter-day or Never 2021 adventism services? 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 PCP - General Family Medicine 08/25/18 01/08/[address] [phone] documented as of this encounter
--- OUTSIDE RECORDS SUMMARY | 2022-04-10 14:58 | XMS_ITS | Encounter Summary ---
:1980 Author Organization [facility] Address [address] [place] [address] Care Team Providers Name Role Phone Bonnie Franz M.D. Primary Care Provider + [phone] Reason for Visit Reason Onset Date Comments Alison 11/04/2018 Encounter Details Date Type Department Care Team Description 11/04/2018 Clinical Communication Department of [facility] Stuart Neurology in Donis Mccullough M.D. [address] [place] [phone] [phone] Social History Tobacco Use Types Packs/Day Years Used Date Smoking Tobacco: Former Smokeless Tobacco: Never Alcohol Use Standard Drinks/Week [...] do you attend bahai or Never 2021 adventism services? Do you [...] or slept in a intermediate (including now)? 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 PCP - General Family Medicine 08/25/18 01/08/[address] [phone] documented as of this encounter
--- OUTSIDE RECORDS SUMMARY | 2022-04-10 14:58 | XMS_ITS | Encounter Summary ---
:1980 Author Organization [facility] Address [address] [place] [address] Care Team Providers Name Role Phone Bonnie Franz M.D. Primary Care Provider + [phone] Encounter Details Date Type Department Care Team Description 09/07/2018 Clinical Communication Department of Family [facility] Ndi[facility], Bonnie Lauren, [facility] [place], in Ana Blackwell [place] [address] [place] [phone] Social History Tobacco Use Types Packs/Day Years [...] do you attend anabaptist or Never 2021 scientologist services? 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 PCP - General Family Medicine 08/25/18 01/08/[address] [phone] documented as of this encounter
--- OUTSIDE RECORDS SUMMARY | 2022-04-10 14:58 | XMS_ITS | Encounter Summary ---
:1980 Author Organization [facility] Address [address] [place] [address] Care Team Providers Name Role Phone Bonnie Franz M.D. Primary Care Provider [phone] Encounter Details Date Type Department Care Team Description 02/09/2019 Orders Only [facility] Pharm[facility] - Jocelyn Franz, [address] , [place] [address] [place] [address] [address] [phone] [place] [address] (Wo rk) Social History Tobacco Use Types [...] do you attend spiritism or Never 2021 muslim services? 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 PCP - General Family Medicine 08/25/18 01/08/[address] [address] documented as of this encounter
--- OUTSIDE RECORDS SUMMARY | 2022-04-10 14:58 | XMS_ITS | Encounter Summary ---
:1980 Author Organization [facility] Address [address] [place] [address] Care Team Providers Name Role Phone Bonnie Franz M.D. Primary Care Provider [phone] Reason for Referral MRI/CAT/PET Scan (Routine) - Closed Specialty Diagnoses / Procedures Referred By Contact Refer red To Contact Radiology Diagnoses Epilepsy Seizure Generalized Convulsive (HCC) DEON Franz [place] [facility] Procedures MR Brain without and with IV Contrast GA MRI BRAIN WO/W [facility] HC MRI BRAIN WO/W MERLE Nicole M.D. [address] [place] [phone] Referral ID Status Reason Start Date Expiration Date Visits Requ ested Visits Authorized [id number] Closed 11/16/2018 11/16/2019 1 1 Reason for Visit MRI/CAT/PET Scan (Routine) - Closed Specialty Diagnoses / Procedures Referred By Contact Refer red To Contact Radiology Diagnoses Epilepsy Seizure Generalized Convulsive (HCC) DEON [place] [facility] Procedures MR Brain without and with IV Contrast GA MRI BRAIN WO/W [facility] HC MRI BRAIN WO/W MERLE Nicole M.D. [address] [place] [phone] Referral ID Status Reason Start Date Expiration Date Visits Requ ested Visits Authorized [id number] Closed 11/16/2018 11/16/2019 1 1 Encounter Details Date Type Department Care Team Description 11/23/2018 Hospital Encounter Department of [facility] Epilep sy Seizure Radiology in [place] Jossy Rodriguez M.D. Convulsive ([facility]) [address] [address] PANKAJ Ba[address] [phone] Social History Tobacco Use Types Packs/Day [...] do you attend hoahaoism or Never 2021 sabianism services? 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 cholecalciferol Take 2,000 Units by 0 (VITAMIN D3) 50 mcg mouth daily. (2,000 Unit) tablet fluticasone (FLONASE) Administer 2 sprays 16 g 11 08/26 50 mcg/actuation nasal into each nostril spray daily. lidocaine (LIDODERM) 5 Place 1 patch on [...] capsule promethazine Take 25 mg by mouth as 0 05/14/2014 (PHENERGAN) 25 mg needed for nausea. tablet atomoxetine TAKE 1 CAPSULE BY 90 capsule 0 08/23/20182018 (STRATTERA) 80 mg MOUTH ONCE DAILY capsule busPIRone (BUSPAR) 30 TAKE ONE TABLET BY 180 tablet 3 201706/27/2019 mg tablet MOUTH TWICE DAILY calcium Take 1 tablet by mouth 0 07/13/2013 carbonate-vitamin D3 daily. 500 mg(1,250mg) -400 unit tablet citalopram (CeleXA) 40 Take 1 tablet by mouth 0 0 03/12/2015 03/27/2020 mg tablet daily. cyanocobalamin Inject 1 mL (1,000 mcg 3 mL 3 9 05/16/2019 (VITAMIN B12) 1,000 total) intramuscularly mcg/mL injection every 30 (thirty) days. cyclobenzaprine Take 1 tablet (10 mg 30 tablet 0 08/26/2018 06/26/2020 (FLEXERIL) 10 mg total) by mouth 3 tablet (three) times a day as needed for muscle spasms. escitalopram (LEXAPRO) Take 1 tablet (20 mg 90 tablet 0 04/03/2019 20 mg tablet total) by mouth daily. gabapentin (NEURONTIN) Take 3 capsules (900 270 capsule 3 03/21/2019 300 mg capsule mg total) by mouth 3 (three) times a day. levETIRAcetam (KEPPRA) Take 1 tablet (500 mg 180 tablet 3 09/14/2019 500 mg tablet total) by mouth 2 (two) times a day. levothyroxine TAKE 1 TABLET BY MOUTH 90 tablet 0 07/14/2018 12/07/2018 (SYNTHROID, ONCE DAILY LEVOTHROID) 75 mcg tablet nystatin-triamcinolone Apply 0.5 inches 0 10/07/2021 (MYCOLOG II) 100,000 topically as needed. Unit/g-0.1 % cream ondansetron (ZOFRAN) 8 Take 1 tablet by mouth 0 0 12/21/2015 03/27/2020 mg tablet as needed. vitamin-iron Take 1 capsule by 0 016 04/04/2020 fumarate-FA ( mouth 2 (two) times a MULTIVITAMINS) 28 mg day. iron- 800 mcg per tablet PROCTOZONE-HC 2.5 % 0 08/22/201804/04 rectal cream SUMAtriptan (IMITREX) as needed. 0 03/10/2018 100 mg tablet SUMAtriptan (IMITREX) Take 1 tablet (100 mg 9 tablet 3 04/06/2020 100 mg tablet total) by mouth once for 1 dose. syringe, disposable, 1 1 each every 30 25 Syringe 1 08/26/19 19 04/04/2020 mL syringe (thirty) days. syringe, disposable, 1 1 Device by not 0 07/13/20 13 04/04/2020 mL syringe applicable route. traZODone (DESYREL) Take 1 tablet (100 mg 90 tablet 3 08/2604/04/2020 100 mg tablet total) by mouth daily. ZOLMitriptan (ZOMIG) 5 Take by mouth as 0 06/24/2021 mg tablet needed. documented as of this encounter Progress Notes Cyndi Zaidi, L.P.N. - 11/23/2018 11:59 PM CDT Notified Gricelda documented in this encounter Plan of Treatment Not on filedocumented as of this encounter Procedures Procedure Name Priority Date/Time Associated Comments Diagnosis MR BRAIN WITHOUT RAD - Routine 11/23/2018 1:53 Epilepsy Seizure Res ults for this AND WITH IV (most inpatients PM CDT Generalized procedure a re in CONTRAST and all Convulsive (HCC) the results outpatients) section. documented in this encounter Results MR Brain without and with IV Contrast (11/23/2018 1:53 PM CDT) Anatomical Region Laterality Modality Head, Brain, Neuroradiology RST LOS, Neuroradiology ARZ N/A Magnetic Resonance LOS, Neuroradiology FLA LOS Specimen (Source) Anatomical Collection Method Collection Time Re ceived Time Location / / Volume Laterality 11/23/2018 2:27 PM CDT Impressions 11/23/2018 2:35 PM CDT IMPRESSION: Stable mild amount of nonspecific white matter changes. Narrative 11/23/2018 2:35 PM CDT EXAM: MR BRAIN WITHOUT AND WITH IV CONTRAST COMPARISON: Brain MRI 04/22/16 FINDINGS: Stable mild amount of punctate T2 hyperintensities within white matter of the right external capsule and bilate ral anterior-superior frontal subcortexes. These white matter changes are nonspecific, though most common etiologies include premature chronic maddie roangiopathy or chronic insult from trauma, toxin, or infection. Much less l ikely these are from multiple sclerosis, particularly given stability and locatio n. No enhancing lesions. Negative for intracranial hemorrhage, he rniation, hydrocephalus, mass, atrophy, or acute infarct. Procedure Note Donis Pringle M.D. - 11/23/2018 EXAM: MR BRAIN WITHOUT AND WITH IV CONTR AST COMPARISON: Brain MRI 04/22/16 FINDINGS: Stable mild amount of punctate T2 hyperintensities within white matter of the right external capsule and bilate ral anterior-superior frontal subcortexes. These white matter changes are nonspecific, though most common etiologies include premature chronic maddie roangiopathy or chronic insult from trauma, toxin, or infection. Much less l ikely these are from multiple sclerosis, particularly given stability and locatio n. No enhancing lesions. Negative for intracranial hemorrhage, he rniation, hydrocephalus, mass, atrophy, or acute infarct. IMPRESSION: Stable mild amount of nonspecific white matter changes. Bonnie Fruehbrodt-Glenzinski M.D. IMG MRI PROCEDURES documented in this encounter Visit Diagnoses Diagnosis Epilepsy Seizure Generalized Convulsive (HCC) documented in this encounter Administered Medications Inactive Administered Medications - up to 3 most recent administrations Medication Order MAR Action Action Date Dose Rate Site gadobutrol injection 1-14 mL Given 11/23/2018 1:29 PM CDT 10 mL (GADAVIST) 1-14 mL, intravenous, Once in imaging, contrast, Starting on 11/23/18 at 1313, For 1 dose sodium chloride 0.9 % injection 10 mL Given 11/23/2018 1:29 PM CDT 10 mL 10 mL, intravenous, Once in imaging, line care, Starting on e 11/23/18 at 1313, For 1 dose documented in this encounter Care Teams Blind Slat Stapling Machine Operator Relationship Specialty Start Date End Date Bonnie Franz M.D. PCP - General Family Medicine 08/25/18 01/08/[address] [phone] documented as of this encounter
--- OUTSIDE RECORDS SUMMARY | 2022-04-10 14:58 | XMS_ITS | Encounter Summary ---
:1980 Author Organization [facility] Address [address] [place] [address] Care Team Providers Name Role Phone Bonnie Franz M.D. Primary Care Provider [phone] Encounter Details Date Type Department Care Team Description 11/30/2018 Orders Only [facility] Pharmacy - Che Hedrick [address] [facility] [place] [address] Social History Tobacco Use Types Packs/Day Years [...] do you attend sikh or Never 2021 spiritism services? Do you belong to any clubs [...] or slept in a [facility] (including now)? 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 PCP - General Family Medicine 08/25/18 01/08/[address] [phone] documented as of this encounter
--- OUTSIDE RECORDS SUMMARY | 2022-04-10 14:58 | XMS_ITS | Encounter Summary ---
:1980 Author Organization [facility] Address [address] [place] [address] Care Team Providers Name Role Phone Bonnie Franz M.D. Primary Care Provider [phone] Reason for Visit Reason Onset Date Comments Communication 12/03/2018 Neurology Appt Encounter Details Date Type Department Care Team Description 12/03/2018 Clinical Communication Department of [facility] Family Medicinelisseth (Neurology Appt ) [facility] in [address] [phone] Social History Tobacco Use Types Packs/Day [...] do you attend episcopalian or Never 2021 mormonism services? Do you [...] slept in a skilled nursing (including now)? 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 - 12/06/2018 9:26 AM CDT SUBJECTIVE CHIEF COMPLAINT / REASON FOR CALL Communication (Neurology Appt ) Patient is requesting the following information: Requesting tens unit PLAN The following information was provided : Notified neurology consult is in and she is at [facility] currently and will request this of that provider today Information: patient/caller able to repeat back in their own words The following references were used: none Telephone Encounter - Bonnie Franz M.D. - 12/05/2018 6:03 PM CDT Consult request in Telephone Encounter - Brannon Wakefield V. CRafalMRafalARafal - 12/03/2018 5:25 PM CDT SUBJECTIVE CHIEF COMPLAINT / REASON FOR CALL Communication (Neurology Appt ) INFORMATION DISCUSSED Contacted the patient after speaking with the provider on this matter. Patient was notified that provider does not prescribe the tens unit without speaking to a PMnR provider. Patient was notified theymay have to speak to Dr. James in our PMnR Dept regarding getting a prescription for the Tens unit. Please advise if they should be referred out on this. PLAN Disposition/Recommendation: awaiting provider recommendations Information: patient/caller able to repeat back in their own words Caller agreeable to plan of care: yes The following references were used: none Telephone Encounter - Say Acosta - 12/03/2018 3:08 PM CDT Patient called back and would like to speak with a nurse again. Please call her back. Telephone Encounter - Brannon Wakefield C.M.ARafal - 12/03/2018 12:07 PM CDT SUBJECTIVE CHIEF COMPLAINT / REASON FOR CALL Communication (Neurology Appt ) INFORMATION DISCUSSED Patient contacted us in regards to a request from Nov.29 for a tens unit. She was wondering on what the status of the order was at the moment. I notified the patient that I would be speaking with theprovider regarding this request. Also, please see message from earlier today. Please advise. PLAN Disposition/Recommendation: awaiting provider recommendations Information: patient/caller able to repeat back in their own words Caller agreeable to plan of care: yes The following references were used: previous plan of care: date 11.29.2018 Telephone Encounter - Dianne Roche - 12/03/2018 8:51 AM CDT Patient is seeing Neurology in [place] on January [address] Perry placed and order for the patient to see Dr. Morales in [place]. Does patient need appointment in [place]? Please let scheduling know. documented in this encounter Plan of Treatment Not on filedocumented as of this encounter Visit Diagnoses Not on filedocumented in this encounter Care Teams Contractor General Engineering Relationship Specialty Start Date End Date Bonnie Franz M.D. PCP - General Family Medicine 08/25/18 01/08/[address] [phone] documented as of this encounter
--- OUTSIDE RECORDS SUMMARY | 2022-04-10 14:58 | XMS_ITS | Encounter Summary ---
:1980 Author Organization [facility] Address [address] [place] [address] Care Team Providers Name Role Phone Bonnie Franz M.D. Primary Care Provider [phone] Reason for Visit Reason Comments Med Refill Encounter Details Date Type Department Care Team Description 03/02/2019 Refill Department of Family Medicine, Simon Dykes Refill [facility], in Bonnie Blackwell M.D. [place] [id number] [address] [place] [address] [phone] Social History Tobacco Use Types Packs/Day Years [...] do you attend denominational or Never 2021 sikhism services? 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 Name of medication: Stratrera caps Strength: 80 mg Frequency: take one capsule by mouth every day Quantity: 90 Refills: Last Refill: Pharmacy: [facility] Per med list last Rx was written 08/23/18 documented in this encounter Plan of Treatment Not on filedocumented as of this encounter Visit Diagnoses Not on filedocumented in this encounter Care Teams Robot Designer Relationship Specialty Start Date End Date Bonnie Franz M.D. PCP - General Family Medicine 08/25/18 01/08/[address] [phone] documented as of this encounter
--- OUTSIDE RECORDS SUMMARY | 2022-04-10 14:58 | XMS_ITS | Encounter Summary ---
:1980 Author Organization [facility] Address [address] [place] [id number] Care Team Providers Name Role Phone Bonnie Franz M.D. Primary Care Provider [phone] Reason for Referral Outpatient (Routine) - Closed Specialty Diagnoses / Referred By Contact Referred To Contact Procedures Physical Medicine and Lito James D.O. [facility] [address] [place] [address] Referral ID Status Reason Start Date Expiration Date Visits Requ ested Visits Authorized [id number] Closed 12/16/2018 12/16/2019 1 1 Scheduling Instructions 30 minute appointment for bilateral knee pain utpatient (Routine) - Closed Specialty Diagnoses / Referred By Contact Referred To Contact Procedures Physical Medicine and Lito James D.O. [facility] [place] [id number] [place] [address] Referral ID Status Reason Start Date Expiration Date Visits Requ ested Visits Authorized [id number] Closed 12/16/2018 12/16/2019 1 1 Scheduling Instructions 15 minute clinic appointment for lumbar spine MRI results RI/CAT/PET Scan (Routine) - Closed Specialty Diagnoses / Procedures Referred By Contact Refer red To Contact Radiology Diagnoses Abnormal Findings On Diagnostic Imaging Of Other Parts Of Musculoskeletal System Lito James D.O. [facility] [place] [facility] Procedures MR Lumbar Spine without IV Contrast AL MRI LUMB SPINE WO [facility] HC MRI LUMB SPINE [facility] [address] [place] [address] Referral ID Status Reason Start Date Expiration Date Visits Requ ested Visits Authorized [id number] Closed 12/16/2018 12/16/2019 1 1 Reason for Visit Reason Comments Back Pain low Outpatient (Routine) - Closed Specialty Diagnoses / Referred By Contact Referred To Contact Procedures Physical Medicine and Diagnoses Pain Low Back Chronic [facility] Rehabilitation Bonnie rosado M.D. [address] [place] [address] Referral ID Status Reason Start Date Expiration Date Visits Requ ested Visits Authorized [id number] Closed 12/05/2018 12/05/2019 1 1 Encounter Details Date Type Department Care Team Description 12/16/2018 Comprehensive Visit Department of Lito James Pain L ow Back Chronic; Physical Medicine Jori.ORafal Abnormal Findings On Diagnostic Imaging Of Other Parts Of Musculoskeletal System and Rehabilitation [address] [place] [address] [address] [facility] [place] [phone] [id number] (Work) [phone] Social History Tobacco Use Types Packs/Day Years [...] do you attend [facility] 2021 jain[facility] services? 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 documented in this encounter Consult Notes Lito James D.O. - 12/16/2018 1:45 PM CDT Physical Medicine & Rehabilitation Clinic Note Gricelda Roberts (Gricelda) is a 38 y.o. female who is seen in consultation at the request of Bonnie Reed* for evaluation of bilateral low back pain with radiation absent. SUBJECTIVE Symptoms began years ago without acute precipitating event. Notes bilateral low back pain without radiation. Symptoms are worse with bending forward and with standing for long periods of time. Treatment has included sumeet davidson, formal physical therapy at the [facility], completed in August 2017 with completion of her home exercise program currently, and hearing healthcare practitioner along with cold/ice. Notes numbness of the right thigh region. Notes weakness of the right lower extremity. Denies any previous low back surgeries. Hematologic: Positive for bruises or bleeds easily. Musculoskeletal: Positive for arthralgias, back pain, pain or stiffness in the joints and muscle pain/stiffness. Neurological: Positive for numbness or shooting pain in hands, arms, legs, or feet and headaches. Psychiatric/Behavioral: Positive for snores loudly. The following systems were negative: Constitutional, Skin, Eyes, ENT, CV, Respiratory, GI, The following portions of the patient's history were reviewed and updated as appropriate: allergies,current medications and problem list OBJECTIVE Vitals: 12/16/18 1359 BP: 118/81 Pulse: 79 Temp: 37 ??C BMI Readings from Last 3 Encounters: 11/19/18 35.59 kg/m?? 11/16/18 35.70 kg/m?? 08/26/18 33.78 kg/m?? Wt Readings from Last 3 Encounters: 11/19/18 96.6 kg 11/16/18 97 kg 08/26/18 89.8 kg Physical Exam General: healthy, alert, obese, and in no acute distress Skin: no suspicious lesions or rashes Psych: mentation appears normal with affect normal/bright Cardiovascular: no pedal edema Respiratory: normal respiratory effort without conversational dyspnea Neurologic: sensory exam is within normal limits. Motor strength as noted below Musculoskeletal: LUMBAR SPINE Inspection: No redness, swelling, overlying skin change, or gross deformity/asymmetry Palpation: Tenderness - none No tenderness - lumbar spinous processes, paralumbar musculature (bilateral), sacroiliac joints (bilateral) and sciatic notches (bilateral) Range of Motion: Lumbar flexion within normal limits with pain Lumbar extension within normal limits with pain Strength: 5/5 - knee flexion - bilateral 5/5 - knee extension - bilateral 5/5 - dorsiflexion - bilateral 5/5 - plantarflexion - bilateral 5/5 - great toe extension - bilateral Special Tests: Positive: facet compression (right) Negative: straight leg raise (bilateral), MARIAH (bilateral), SI posterior compression (bilateral), Gaenslen's (bilateral) and facet compression (left) Diagnostics outside film(s) from [facility] were reviewed today, independent interpretation/visualization of images wascompleted, and results were discussed with the patient CT lumbar spine - 09/02/2016 Impression : 1. No significant spinal canal stenosis is present. 2. There is minimal foraminal narrowing at L4-5 and mild right foraminal narrowing at L5-S1. 3. No lumbar compression deformities are seen. 4. Chronic L5 pars defects are noted without associated spondylolisthesis. Lab Results Component Value Date HGBA1C 5.2 02/08/2015 ASSESSMENT / PLAN #1 Chronic bilateral low back pain without radiation - consistent with lumbar facet arthropathy and mechanical low back pain Discussed previous treatment with the patient along with further treatment options moving forward including formal physical therapy referral, further diagnostic imaging, injection therapy, chiropracticcare, etc. Patient wished to continue with her home exercises at this time and proceed with an MRI of the lumbar spine without contrast for further evaluation. Tylenol/ice/heat as needed for improvement of pain/discomfort. Continue with hearing healthcare practitioner if the benefits outweigh downsides of time, cost, etc. Prescription given to the patient for a TENS unit to use for further treatment purposes. Ativan prescription given to the patient to take 1 hour before her MRI to help with claustrophobia. Follow-up 1-2 business days upon completion of further diagnostic imaging to discuss results to determine appropriate further medical care moving forward. #2 Bilateral knee pain Referral placed to follow up in clinic as previously seen by Dr. Grady with previous appropriate imaging in place to discuss current medical state with discussion of further medical care moving forward. Lito James DO, CAQSM [employer] Physical Medicine & Rehabilitation I spent a total of 35 minutes [id number] with the patient during today's office visit. Over 50% ofthe time was spent counseling the patient and/or coordinating care. See office note for details. documented in this encounter Plan of Treatment Scheduled Referrals Name Type Priority Associated Order Schedule Diagnoses Physical Medicine and Outpatient Referral Routine Expected: Rehabilitation office 2018 visit (clinic) (Approximate) , Expires: 12/16/2021 Physical Medicine and Outpatient Referral Routine Expected: Rehabilitation office 2018 visit (clinic) (Approximate) , Expires: 12/16/2021 documented as of this encounter Results MR Lumbar Spine without IV Contrast (12/23/2018 4:31 PM CDT) Anatomical Region Laterality Modality Lumbar Spine, Neuroradiology RST LOS, Neuroradiology N/A Magnetic Resonance [facility], Neuroradiology [facility] Specimen (Source) Anatomical Collection Method Collection Time Re ceived Time Location / / Volume Laterality 12/23/2018 4:49 PM CDT Impressions 12/23/2018 4:57 PM CDT IMPRESSION: 1. ??Mild lumbar spondylosis. 2. ??Facet hypertrophy at L4-L5 and L5-S 1. 3. ??At L5-S1, right moderate foraminal stenosis contacts but does not compress the exiting right L5 nerve root. Narrative 12/23/2018 4:57 PM CDT EXAM: ??MR LUMBAR SPINE WITHOUT IV CONTRAST COMPARISON: ??CT lumbar 09/02/16 FINDINGS: ??Level by level change is det tiffanie below: T12-L1: No stenosis. L1-2: ??No stenosis. L2-3: ??No stenosis. L3-4: ??Small annular fissure into the r ight neural foramen. L4-5: ??There is mild generalized disc b ulge. There is annular fissure into the left neural foramen. Mild bilateral fora katelin stenosis. Mild bilateral facet hypertrophy. L5-S1: ??Moderate right and mild left fa cet hypertrophy. Disc has desiccation, mild generalized bulge, and left central annular fissure. Moderate right foraminal stenosis contacts but does not compress the exiting right L5 nerve root. Alignment: ??Normal Bone Marrow: ??Mild discogenic marrow ed isma of the endplates at L5-S1. Conus: ??Normal termination Extra-spinal Findings: ??No significant incidental findings There are 5 lumbar type vertebral bodies . Procedure Note Donis Pringle M.D. - 12/23/2018 EXAM: MR LUMBAR SPINE WITHOUT IV CONTRAS T COMPARISON: CT lumbar 09/02/16 FINDINGS: Level by level change is detai led below: T12-L1: No stenosis. L1-2: No stenosis. L2-3: No stenosis. L3-4: Small annular fissure into the rig ht neural foramen. L4-5: There is mild generalized disc bul ge. There is annular fissure into the left neural foramen. Mild bilateral fora katelin stenosis. Mild bilateral facet hypertrophy. L5-S1: Moderate right and mild left face t hypertrophy. Disc has desiccation, mild generalized bulge, and left central annular fissure. Moderate right foraminal stenosis contacts but does not compress the exiting right L5 nerve root. Alignment: Normal Bone Marrow: Mild discogenic marrow carina a of the endplates at L5-S1. Conus: Normal termination Extra-spinal Findings: No significant in cidental findings There are 5 lumbar type vertebral bodies . IMPRESSION: 1. Mild lumbar spondylosis. 2. Facet hypertrophy at L4-L5 and L5-S1. 3. At L5-S1, right moderate foraminal st enosis contacts but does not compress the exiting right L5 nerve root. Lito VALDOVINOS MRI PROCEDURES documented in this encounter Visit Diagnoses Diagnosis Pain Low Back Chronic Abnormal Findings On Diagnostic Imaging Of Other Parts Of Musculoskeletal System Abnormal Findings On Diagnostic Imaging Of Other Parts Of Musculoskeletal System documented in this encounter Care Teams Corporate Coordinator Relationship Specialty Start Date End Date Bonnie Franz M.D. PCP - General Family Medicine 08/25/18 01/08/[address] [id number] documented as of this encounter
--- OUTSIDE RECORDS SUMMARY | 2022-04-10 14:58 | XMS_ITS | Encounter Summary ---
:1980 Author Organization [facility] Address [address] [place] [address] Care Team Providers Name Role Phone Bonnie Franz M.D. Primary Care Provider + [phone] Reason for Visit Reason Comments Cyst vaginal cyst Outpatient (Routine) - Closed Specialty Diagnoses / Procedures Referred By Contact Refer red To Contact Family Medicine Diagnoses Cyst [facility]ia [facility] Nam Nicole M.D. [address] [place] [address] [phone] Referral ID Status Reason Start Date Expiration Date Visits Requ ested Visits Authorized [id number] Closed 11/16/2018 11/16/2019 1 1 Encounter Details Date Type Department Care Team Description 11/19/2018 Routine Department of Deepa Armstrong (Primary Dx); Obstetrics and M MRafalDRafal Pap Smear Exa mination; Gynecology in Obesity Body M ass Index 30-39.[address] [address] Social History Tobacco Use Types Packs/Day Years [...] or relatives? How often do you attend jehovah's witness or Never 2021 jainism services? 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 - 11/19/2018 3:45 PM CDT MEMBER SERVICES COORDINATOR CONSULT NOTE CHIEF COMPLAINT / REASON FOR VISIT Patient presents for Gynecology consultation at the request of her primary provider, Dr. Franz, for labial cyst. HISTORY OF PRESENT ILLNESS Gricelda Roberts is a 38 y.o. female. with No LMP recorded. Patient has had a hysterectomy. who presents for Gynecology consultation for labial cyst. Gricelda reports a 1 week history of a right labial cyst that started as a small bubble and grew to peasize. Yesterday it burst with clear blood tinged fluid. She denies pain or itching at the side. She denies purulent discharge. She has a history of a supracervical abdominal hysterectomy in 2010 done in [facility]. She is sexually active without issues. She denies a history of pelvic infections or abnormal pap smears. She denies any vaginal bleeding. She denies any pelvic pain. Her last pap smear was 05/2015 NIL. She denies any bowel or bladder concerns or complaints. ALLERGIES Allergies Allergen Reactions ??? Cephalexin Other (see comments) MEDICATIONS Current Outpatient Prescriptions: ??? atomoxetine (STRATTERA) 80 mg capsule, TAKE 1 CAPSULE BY MOUTH ONCE DAILY, Disp: 90 capsule, Rfl: 0 ??? busPIRone (BUSPAR) 30 mg tablet, TAKE ONE TABLET BY MOUTH TWICE DAILY, Disp: 180 tablet, Rfl: 3 ??? cetirizine (ZyrTEC) 10 mg tablet, Take 1 tablet by mouth daily., Disp: , Rfl: ??? cholecalciferol (VITAMIN D3) 2,000 Unit tablet, Take 2,000 Units by mouth daily., Disp: , Rfl: ??? cyanocobalamin (VITAMIN B12) 1,000 mcg/mL injection, Inject 1 mL (1,000 mcg total) intramuscularly every 30 (thirty) days., Disp: 3 mL, Rfl: 3 ??? escitalopram (LEXAPRO) 20 mg tablet, Take 1 tablet (20 mg total) by mouth daily., Disp: 90 tablet, Rfl: 0 ??? fluticasone (FLONASE) 50 mcg/actuation nasal spray, Administer 2 sprays into each nostril daily., Disp: 16 g, Rfl: 11 ??? gabapentin (NEURONTIN) 300 mg capsule, Take 3 capsules (900 mg total) by mouth 3 (three) times aday., Disp: 270 capsule, Rfl: 3 ??? gabapentin (NEURONTIN) 600 mg tablet, Take 1 tablet (600 mg total) by mouth 3 (three) times a day. Take with 1 cap 300 mg to equal 900 mg 3 times daily, Disp: 270 tablet, Rfl: 3 ??? levETIRAcetam (KEPPRA) 500 mg tablet, Take 1 tablet (500 mg total) by mouth 2 (two) times a day., Disp: 180 tablet, Rfl: 3 ??? levothyroxine (SYNTHROID, LEVOTHROID) 75 mcg tablet, TAKE 1 TABLET BY MOUTH ONCE DAILY, Disp: 90tablet, Rfl: 0 ??? lidocaine (LIDODERM) 5 %, Place 1 patch on the skin daily. Apply to intact skin and remove patchafter a maximum of 12 hr of application within a 24 hr period, Disp: 90 patch, Rfl: 3 ??? MULTIVITAMIN ORAL, Take 2 tablets by mouth daily. , Disp: , Rfl: ??? omega-3 fatty acids-fish oil 300-1,000 mg capsule, Take 1 g by mouth daily. 1200 mg, Disp: , Rfl: ??? ondansetron (ZOFRAN) 8 mg tablet, Take 1 tablet by mouth as needed. , Disp: , Rfl: ??? vitamin-iron fumarate-FA ( MULTIVITAMINS) 28 mg iron- 800 mcg per tablet, Take 1 capsule by mouth 2 (two) times a day., Disp: , Rfl: ??? promethazine (PHENERGAN) 25 mg tablet, Take 25 mg by mouth as needed. , Disp: , Rfl: ??? SUMAtriptan (IMITREX) 100 mg tablet, as needed. , Disp: , Rfl: ??? syringe, disposable, 1 mL syringe, 1 each every 30 (thirty) days., Disp: 25 Syringe, Rfl: 1 ??? traZODone (DESYREL) 100 mg tablet, Take 1 tablet (100 mg total) by mouth daily., Disp: 90 tablet, Rfl: 3 ??? ZOLMitriptan (ZOMIG) 5 mg tablet, Take by mouth as needed. , Disp: , Rfl: ??? calcium carbonate-vitamin D3 500 mg(1,250mg) -400 unit tablet, Take 1 tablet by mouth daily. , Disp: , Rfl: ??? citalopram (CeleXA) 40 mg tablet, Take 1 tablet by mouth daily., Disp: , Rfl: ??? cyclobenzaprine (FLEXERIL) 10 mg tablet, Take 1 tablet (10 mg total) by mouth 3 (three) times a day as needed for muscle spasms., Disp: 30 tablet, Rfl: 0 ??? gabapentin (NEURONTIN) 300 mg capsule, Take 3 capsules (900 mg total) by mouth 3 (three) times aday. (Patient not taking: Reported on 11/19/2018 ), Disp: 270 capsule, Rfl: 3 ??? nystatin-triamcinolone (MYCOLOG II) 100,000 Unit/g-0.1 % cream, Apply 0.5 inches topically as needed. , Disp: , Rfl: ??? PROCTOZONE-HC 2.5 % rectal cream, , Disp: , Rfl: ??? SUMAtriptan (IMITREX) 100 mg tablet, Take 1 tablet (100 mg total) by mouth once for 1 dose., Disp: 9 tablet, Rfl: 3 REVIEW OF SYSTEMS As per the HPI, otherwise negative 10 pt ROS. +anxiety, difficulty sleeping +changes in vision +difficult memory, numbness, tingling PAST MEDICAL HISTORY Past Medical History: Diagnosis Date ??? Attention Deficit Disorder Inattentive ??? Dependence Drug Opioid (HCC) ??? Depression Anxiety ??? Epilepsy And Recurrent Seizures NOS ??? Gastric Bypass Status Post ??? Hypothyroidism ??? Migraine Headache ??? Obesity Body Mass Index 30-39.9 Adult ??? Osteoarthritis ??? Pain Low Back Chronic ??? Tobacco Use quit in 1997 PAST SURGICAL HISTORY Past Surgical History: Procedure Laterality Date ??? APPENDECTOMY 11/13/2003 ??? SECTION 2006 ??? SECTION 11/13/2007 ??? CHOLECYSTECTOMY 11/13/2003 ??? GASTRIC BYPASS 04/2011 ??? HYSTERECTOMY ABDOMINAL WITH SALPINGO - OOPHORECTOMY 10/10/2010 Abdominal supracervical hysterectomy and right salpingo-oophorectomy ??? TONSILLECTOMY 11/13/2007 ??? TRANSECTION OF FALLOPIAN TUBE BY VAGINAL APPROACH 11/13/2007 SOCIAL HISTORY Social History Social History ??? Marital status: Spouse name: N/A ??? Number of children: N/A ??? Years of education: N/A Occupational History ??? Not on file. Social History Main Topics ??? Smoking status: Former Smoker Types: Cigarettes ??? Smokeless tobacco: Never Used ??? Alcohol use No ??? Drug use: No ??? Sexual activity: Defer Other Topics Concern ??? Not on file Social History Narrative ??? No narrative on file FAMILY HISTORY Family History Problem Relation Age of Onset ??? Arthritis Mother ??? Rheum arthritis Mother ??? Colon polyps Mother 65 precancerous ??? Vasculitis Mother 65 IgA ??? Hypertension Father ??? Diabetes Father ??? Hyperlipidemia Father ??? PTSD Father ??? Tuberculosis Father ??? Heart attack Grandfather Denies family history of breast, uterine, ovarian, or colon cancer. OBJECTIVE BP 98/62 Wt 96.6 kg BMI 35.59 kg/m?? General: Well-developed, well-nourished female in no apparent distress. Neurological: Alert and oriented x3. Lungs: Breathing nonlabored. Heart: Regular rate. No JVD. No peripheral vascular disease. Abdomen: Soft, nontender, nondistended. No organomegaly. No rebound, no guarding. Pelvic exam: Normal external female genitalia without lesions or abnormalities. 1 x 0.5 cm cyst palpable in superior aspect of labial minora - consistent with inclusion cyst - soft, mobile, nontender, no skin changes noted. Normal pubic hair distribution. Urethral meatus normal in appearance and without masses. Normal Bartholin, Urethral and [place]'s glands. Vaginal mucosa is pink and moist with a small amount of physiologic discharge present in the posterior vaginal fornix. No vaginal lesions. Well estrogenized vaginal mucosa. No cystocele or rectocele. Good lateral vaginal support. Normal multiparous cervix without lesions or abnormalities. No cervical motion tenderness to palpation. The bladder and urethra are nontender to palpation. Pap smear collected and pending. No adnexal masses or tenderness bilaterally. Rectal exam: No external hemorrhoids noted. Extremities: No clubbing cyanosis or edema. Nontender bilaterally. Attendant [employer] for pelvic exam or qualifying procedure: [facility] Pap smear 05/2015 NIL, collected and pending today ASSESSMENT / PLAN Gricelda Roberts is a 38 y.o. female who presents in consultation for labial cyst. Diagnosis Plan 1. Cyst Labia Family Medicine - Obstetrics and Gynecology consult (clinic) 2. Pap Smear Examination ThinPrep w/HPV Co-Test Screen 3. Obesity Body Mass Index 30-39.9 Adult - Right labial cyst (labia minora superior aspect) - advised of normal findings on exam today, smallpalpable mobile cyst on exam, no concerns for malignance, no concerns for infection, cyst has drained and normal appearing tissue today, advised of precautions to monitor for, advised can return to office at any time for further evaluation. Tissue appears normal today. Reassurance given. Advised in future if concerning findings can consider biopsy or excision. - Pap smear collected and pending today - will contact with results. - All questions answered - Problem list reviewed and updated. - Follow up PRN for MEMBER SERVICES COORDINATOR concerns. - 30 minute visit with greater than 50% spent in counseling and coordination of care. Deepa Armstrong MD Obstetrics and Gynecology [facility] documented in this encounter Plan of Treatment Not on filedocumented as of this encounter Procedures Procedure Name Priority Date/Time Associated Diagnosis Comme nts THINPREP W/HPV Routine 11/19/2018 5:13 PM Pap Smear Results for this CO-TEST SCREEN CDT Examination procedure are in the results section. HPV WITH Routine 11/19/2018 5:13 PM Results f or this GENOTYPING, PCR, CDT procedure a re in THINPREP the results section. documented in this encounter Results HPV with Genotyping, PCR, ThinPrep (11/19/2018 5:13 PM CDT) athologist Signature HPV with Negative Negative 11/22/2018 [facility] Genotyping, 3:39 PM CDT HEALTH [facility]inPrep, [facility] Comment: Negative for high risk HPV by nucleic ac id amplification. ??The following high risk HPV types were not detected: 16, 18, 31, 33, 35, 39, 45, 51, 52, 56, 58, 59, 66, and 68 Specimen Anatomical Collection Method Collection Time Receive d Time (Source) Location / / Volume Laterality Varies 11/19/2018 5:13 PM 9 8:50 CDT AM CDT Deepa Armstrong M.D. LAB MICROBIOLOGY - GENERAL O RDERABLES Performing Organization Address City/State/ZIP Code Phon e Number [facility] [address] [place] [address] LAB ThinPrep w/HPV Co-Test Screen (11/19/2018 5:13 PM CDT) Component Value Ref Test Analysis Performed Pathologis t Range Method Time At Signature 11/22/2018 [facility] 4:02 PM HEALTH CDT [facility] CYTOLOGY Report MATT Do(ASCP) 11/22/2018 [facility] electronically I verify that I have examined all relevant slides/ma terials 4:02 PM HEALTH signed by for the specimen(s) and rendered or confirmed the diagnosi s. CDT [facility] Gross Description Received specimen 11/22/2018 [facility] in a ThinPrep 4:02 PM HEALTH vial. CDT [facility] Pap Test Source Cervical/Endocervi 11/22/2018 [facility] lise 4:02 PM HEALTH CDT [facility] Clinical History hysterectomy 11/22/2018 [facility] 4:02 PM HEALTH CDT [facility] Menstrual hysterectomy 11/22/2018 [facility] Status(LMP, PM, 4:02 PM HEALTH ) CDT [facility] Hormone None/Not known 11/22/2018 [facility] Therapy/Contracep 4:02 PM HEALTH tives CDT [facility] Interpretation Cervical/Endocervical ??(ThinPrep): 11/22/2018 [facility] Satisfactory for Evaluation 4:02 PM HE ALTH Endocervical/transformation zone components absent CDT SYSTEM- Negative for Intraepithelial Lesion or Malignancy [facility] High Risk HPV Testing results are NEGATIVE. CYTOLOGY HPV by Dietetic Intern-Mediated Amplification ??(TMA) for E6/E7 viral messenger RNA (mRNA) is an in-vitro diagnostic test for the detection of 14 high-risk Human Papilloma (HPV) types (16, 18, 31, 33, 35, 39, 45, 51, 52, 56, 58, 59, 66, and 68) in cervical specimens. Additional testing performed at [facility], [address] [place] [address]. Specimen Anatomical Collection Method Collection Time Receive d Time (Source) Location / / Volume Laterality Varies 11/19/2018 5:13 PM 9 8:50 (Cervix/Endocerv CDT AM CDT ix) Narrative This result has an attachment that is no t available. Deepa Armstrong M.D. LAB PAP PATHDX ORDERABLES Performing Organization Address City/State/[place] [address] CYTOLOGY documented in this encounter Visit Diagnoses Diagnosis Cyst Labia - Primary Pap Smear Examination Obesity Body Mass Index 30-39.9 Adult documented in this encounter Care Teams Payroll Accountant Relationship Specialty Start Date End Date Bonnie Franz M.D. PCP - General Family Medicine 08/25/18 01/08/[address] [phone] documented as of this encounter
--- OUTSIDE RECORDS SUMMARY | 2022-04-10 14:58 | XMS_ITS | Encounter Summary ---
:1980 Author Organization [facility] Address [address] [place] [address] Care Team Providers Name Role Phone Bonnie Franz M.D. Primary Care Provider + [phone] Encounter Details Date Type Department Care Team Description 09/06/2018 Clinical Communication Department of Family [facility], Bonnie Lauren, [facility], in [place] [address] [place] [phone] Social History Tobacco Use Types Packs/Day Years [...] or relatives? How often do you attend religion or Never 2021 mosque services? Do you belong to any clubs or Yes 09/02/2021 organizations such as religion groups, unions, fraternal or athletic groups, or [...] BUILD MASTER documented as of this encounter Miscellaneous Notes Telephone Encounter - Abigail Gale L.P.N. - 09/07/2018 10:26 AM BUILD MASTER SUBJECTIVE CHIEF COMPLAINT / REASON FOR CALL No chief complaint on file. Patient is requesting the following information: Prescription for Gabapentin PLAN The following information was provided : Patient is currently taking 900 mg TID. Provider did an additional order for 300 mg to take with theprescription of 600 mg tabs. Information: patient/caller able to repeat back in their own words The following references were used: none D MASTER Telephone Encounter - Bonnie Franz M.D. - 09/07/2018 10:08 AM CST I sent a new prescription for 300 mg to add to the 600 mg. She should let me know of at the time of her next fill and I can send a prescription for the proper amount. D MASTER Telephone Encounter - Abigail Gale L.P.N. - 09/07/2018 9:42 AM CST Patient was seen by Dr. Stuart, Neurology in [place] on 11/20/2017. This provider changed the gabapentin to 900mg TID. Patient would like to continue on this dosage. Please advise. D MASTER Telephone Encounter - Christy Lorenzo - 09/07/2018 9:14 AM CST [facility] pharmacy in [place] stating patient notified them she is on Gabapentin 900mg three times daily and Rx pharmacy received yesterday stated 600mg three times daily. Please call pharmacy with clarification at [phone]. Pharmacy authorizing a detailed message to be left at this number D MASTER Telephone Encounter - Liu Taylor - 09/06/2018 3:44 PM CST Patient is returning call please advise. D MASTER Telephone Encounter - Bhavani Chavira - 09/06/2018 3:12 PM CST Nurse Review: Pharmacy Communication Provider: Bonnie Franz M.D. Medication: GABAPENTIN CAP Strength: 300mg Frequency: Take 3 capsules by mouth three times daily Pharmacy: [facility] Comment: Attn Dr ePrry. This is the directions that the pt states is the correct directions and was last filled on 08/07/2018. D MASTER Telephone Encounter - Abigail Gale L.P.N. - 09/06/2018 12:53 PM BUILD MASTER On 09/03/2018 Current prescription is 300mg 2 tabs TID . Please advise D MASTER Telephone Encounter - Lore Lemus - 09/06/2018 12:28 PM CST Reason for Communication: prescription correction Current Can Nursing/Provider leave a detailed message: Yes Did the patient refuse triage through Nurse line? (for symptom based concerns)N/A Action Needed: Patient called stating that her Gabapentin prescription is incorrect, she said it should be three 300 mg tablets taking them three times daily. Please advise Name of Medication (if relevant): gabapentin D MASTER documented in this encounter Plan of Treatment Not on filedocumented as of this encounter Visit Diagnoses Not on filedocumented in this encounter Care Teams Supervisor Ornamental Ironworking Relationship Specialty Start Date End Date Bonnie Franz M.D. PCP - General Family Medicine 08/25/18 01/08/[address] [phone] documented as of this encounter
--- OUTSIDE RECORDS SUMMARY | 2022-04-10 14:58 | XMS_ITS | Encounter Summary ---
:1980 Author Organization [facility] Address [address] [place] [address] Care Team Providers Name Role Phone Bonnie Franz M.D. Primary Care Provider [phone] Encounter Details Date Type Department Care Team Description 11/24/2018 Orders Only Department of Family Yuli jacobson General Medicine, Bonnie Lauren, (Primary Dx) Clinic, in [place] [address] [address] [phone] Social History Tobacco Use Types Packs/Day Years [...] do you attend baptism or Never 2021 synagogue services? 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 PCP - General Family Medicine 08/25/18 01/08/[address] [phone] documented as of this encounter
--- OUTSIDE RECORDS SUMMARY | 2022-04-10 14:58 | XMS_ITS | Encounter Summary ---
:1980 Author Organization [facility] Address [address] [place] [address] Care Team Providers Name Role Phone Bonnie Franz M.D. Primary Care Provider [phone] Reason for Visit Reason Comments Med Refill Encounter Details Date Type Department Care Team Description 12/07/2018 Refill Department of Family Medicine, Qasim Ceja P.A.-C. Med Refill [facility], in [address] [place] [phone] [place] [address] [place] [address] [phone] Social History Tobacco Use Types Packs/Day Years [...] do you attend sikh or Never 2021 jewish services? 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 PCP - General Family Medicine 08/25/18 01/08/[address] [phone] documented as of this encounter
--- OUTSIDE RECORDS SUMMARY | 2022-04-10 14:58 | XMS_ITS | Encounter Summary ---
:1980 Author Organization [facility] Address [address] [place] [address] Care Team Providers Name Role Phone Bonnie Franz M.D. Primary Care Provider + [phone] Encounter Details Date Type Department Care Team Description 12/02/2018 Orders Only [facility] Pharmacy - Indra Mata M.D. [address] [place] [address] [address] [place] [address] [place], [place] [address] (Wo rk) Social History Tobacco Use Types [...] or relatives? How often do you attend yazidism or Never 2021 church services? 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 PCP - General Family Medicine 08/25/18 01/08/[address] [phone] documented as of this encounter
--- OUTSIDE RECORDS SUMMARY | 2022-04-10 14:58 | XMS_ITS | Encounter Summary ---
:1980 Author Organization [facility] Address [address] [place] [address] Care Team Providers Name Role Phone Bonnie Franz M.D. Primary Care Provider + [phone] Reason for Referral Outpatient (Routine) - Closed Specialty Diagnoses / Procedures Referred By Contact Refer red To Contact Family Medicine Diagnoses Cyst Labia DEON Franz [place] [facility] [place] [address] [place] [address] [phone] Referral ID Status Reason Start Date Expiration Date Visits Requ ested Visits Authorized [id number] Closed 11/16/2018 11/16/2019 1 1 RI/CAT/PET Scan (Routine) - Closed Specialty Diagnoses / Procedures Referred By Contact Refer red To Contact Radiology Diagnoses Epilepsy Seizure Generalized Convulsive (HCC) DEON Franz [facility] Region Procedures MR Brain without and with IV Contrast NM MRI BRAIN WO/W [facility]TRST HC MRI BRAIN WO/W CNTRST Ana Nicole [address] [place] [address] [phone] Referral ID Status Reason Start Date Expiration Date Visits Requ ested Visits Authorized [id number] Closed 11/16/2018 11/16/2019 1 1 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 Med Management Patient would like to discus s Gabapentin medication prescription. Primarily due to insurance maira daley. Appointment Request (Routine) - Closed Specialty Diagnoses / Procedures Referred By Contact Refer red To Contact Family Medicine Referral ID Status Reason Start Date Expiration Date Visits Requ ested Visits Authorized [id number] Closed 11/09/2018 11/09/2019 1 Encounter Details Date Type Department Care Team Description 11/16/2018 Office Visit Department [facility] epsy Seizure Generalized Convulsive (HCC) (Primary Dx); Medicine, [facility]nie [facility] Headach e; Clinic, in [place] Cyst Labia; [place] [address] Screening Lipid; [address] [place], [place] [phone] [id number] Social History Tobacco Use Types Packs/Day Years [...] or relatives? How often do you attend oriental orthodox or Never 2021 amish services? 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 - 11/16/2018 9:15 AM CDT SUBJECTIVE CHIEF COMPLAINT / REASON FOR VISIT Chief Complaint Patient presents with ??? 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 ??? Med Management Patient would like to discuss Gabapentin medication prescription. Primarily due to insurance company. HISTORY OF PRESENT ILLNESS Gricelda Roberts is a 38 y.o. female who presents to the clinic today , accompanied by her ,for Multiple concerns. 1. She has a recurrent area that she describes as a boil on her right buttock she squeezes it when it gets bag and it will generally resolve. This occurred recently. She wants to make sure that the area looks okay. 2. She has developed a small nodule the right side her introitus. She can squeeze this also and express some liquid. 3.She needs to have her gabapentin straightened out she has been using multiple strengths to total 900 mg t.i.d.. She would like to have just 1 strength for 1 prescription. 4. She did have a seizure disorder but has been having some other types of spells. She will feel a numb sensation in her extremities and noticed that her vision worsens. She will feel off balance quiteeasily and will start to fall but catches herself. She feels weak in the legs. She is worried about another underlying neurological disorder. The patient denies any additional questions or concerns at this time. REVIEW OF SYSTEMS Please see HPI for pertinent positives, otherwise rest of ROS negative. CURRENT MEDICATIONS Current Outpatient Prescriptions Medication Sig Dispense Refill ??? atomoxetine (STRATTERA) 80 mg capsule TAKE 1 CAPSULE BY MOUTH ONCE DAILY 90 capsule 0 ??? busPIRone (BUSPAR) 30 mg tablet TAKE ONE TABLET BY MOUTH TWICE DAILY 180 tablet 3 ??? calcium carbonate-vitamin D3 500 mg(1,250mg) -400 unit tablet Take 1 tablet by mouth daily. ??? cetirizine (ZyrTEC) 10 mg tablet Take 1 tablet by mouth daily. ??? citalopram (CeleXA) 40 mg tablet Take 1 tablet by mouth daily. ??? cyanocobalamin (VITAMIN B12) 1,000 mcg/mL injection Inject 1 mL (1,000 mcg total) intramuscularly every 30 (thirty) days. 3 mL 3 ??? escitalopram (LEXAPRO) 20 mg tablet Take 1 tablet (20 mg total) by mouth daily. 90 tablet 0 ??? fluticasone (FLONASE) 50 mcg/actuation nasal spray Administer 2 sprays into each nostril daily. 16 g 11 ??? levETIRAcetam (KEPPRA) 500 mg tablet Take 1 tablet (500 mg total) by mouth 2 (two) times a day. 180 tablet 3 ??? levothyroxine (SYNTHROID, LEVOTHROID) 75 mcg tablet TAKE 1 TABLET BY MOUTH ONCE DAILY 90 tablet 0 ??? lidocaine (LIDODERM) 5 % Place 1 [...] 1 tablet by mouth as needed. ??? vitamin-iron fumarate-FA ( MULTIVITAMINS) 28 mg [...] 30 (thirty) days. 25 Syringe 1 ??? traZODone (DESYREL) 100 mg tablet Take 1 tablet (100 mg total) by mouth daily. 90 tablet 3 ??? ZOLMitriptan (ZOMIG) 5 mg tablet Take by mouth as needed. ??? cholecalciferol (VITAMIN D3) 2,000 Unit tablet Take 2,000 Units by mouth daily. ??? cyclobenzaprine (FLEXERIL) 10 mg tablet Take 1 tablet (10 mg total) by mouth 3 (three) times a day as needed for muscle spasms. 30 tablet 0 ??? gabapentin (NEURONTIN) 300 mg capsule Take 3 capsules (900 mg total) by mouth 3 (three) times a day. 270 capsule 3 ??? SUMAtriptan (IMITREX) 100 mg tablet Take 1 tablet (100 mg total) by mouth once for 1 dose. 9 tablet 3 No current facility-administered medications for [...] 11/13/2007 PREVENTIVE SERVICES: SOCIAL HISTORY Social History Substance Use Topics ??? Smoking status: Former Smoker Types: Cigarettes ??? Smokeless tobacco: Never Used ??? Alcohol use No OBJECTIVE VITAL SIGNS Vitals: 11/16/18 0926 BP: 110/88 Pulse: Resp: Temp: Body mass index is 35.7 kg/m??. PHYSICAL EXAMINATION General: Patient is alert and oriented times three, in no acute distress, good hygiene and is dressed appropriately. Heart: Regular rate and rhythm without murmur. Lungs: Clear to auscultation. Rectum: Perirectal area appears normal.. Genitalia: There is a pea-sized cyst with in the right minor labium. It is tender to the touch Extremities: Within normal limits. Skin: There is a firm area on the medial aspect of the right buttock that is somewhat violaceous in color and less than 1 cm. It appears to be a resolving boil. ASSESSMENT / PLAN #1 Headache And spells Will obtain MRI of the brain evaluate. #2 Epilepsy Seizure Generalized Convulsive (HCC) Stable. #3 Cyst Labia Will ask for bellhop consultation. #4 Screening Lipid She is fasting today so will obtain screening lipid panel. #5 Hypothyroidism She is due for TSH and this is drawn today. Follow up PLAN: The patient will contact the clinic with any new or worsening symptoms. ADMINISTRATIVE BILLING 20 minutes of this 25 minute visit was spent in face to face counseling and coordination of care. documented in this encounter Plan of Treatment Scheduled Referrals Name Type Priority Associated Order Schedule Diagnoses Family Medicine - Outpatient Referral Routine Cyst Labia Exp ected: Obstetrics and 11/16/2018 Gynecology consult (Approxim ate), (clinic) Expires: 11/16/2021 documented as of this encounter Procedures Procedure Name Priority Date/Time Associated Diagnosis Comme nts LIPID PANEL, S Routine 11/16/2018 10:35 Screening Lipid Result s for this AM CDT procedure are i n the results section. THYROID-STIMULATIN Routine 11/16/2018 10:35 Hypothyroidism Res ults for this G AM CDT procedure are i n HORMONE-SENSITIVE the result s (S-TSH) section. BASIC METABOLIC Routine 11/16/2018 10:35 Epilepsy Seizure Resu lts for this PANEL, S/P AM CDT Generalized Convulsive proce dure are in (HCC) the results section. documented in this encounter Results MR [...] amount of nonspecific white matter changes. Bonnie Franz M.D. IMG MRI PROCEDURES Basic Metabolic Panel (11/16/2018 10:35 AM CDT) P athologist Signature Potassium, S 4.2 3.6 - 5.2 11/16/2018 [facility] mmol/L 1:54 PM [facility] Sodium, S 143 135 - 145 11/16/2018 [facility] mmol/L 1:54 PM [facility] Chloride, S 105 98 - 107 11/16/2018 [facility] mmol/L 1:54 PM [facility] Bicarbonate, S 28 22 - 29 11/16/2018 [facility] mmol/L 1:54 PM [facility] [place] [facility] Anion Gap 10 7 - 15 11/16/2018 [facility] 1:54 PM [facility] [place] [facility] BUN (Blood Urea 8 6 - 21 11/16/2018 [facility] Nitrogen), S mg/dL 1:54 PM [facility] [place] [facility] Creatinine 0.84 0.59 - 11/16/2018 [facility] 1.04 mg/dL 1:54 PM [facility] eGFR-Non 89 >=60 11/16/2018 [facility] Black/ mL/min/BSA 1:54 PM [facility] [place] [facility] Comment: ----ADDITIONAL INFORMATION---- Estimated GFR calculated using the 2009 CKD_EPI creatinine equation. eGFR-Black/ >90 >=60 mL/min/BSA 2018 1:54 PM [facility] [place] [facility] Comment: ----ADDITIONAL INFORMATION---- Estimated GFR calculated using the 2009 CKD_EPI creatinine equation. Calcium, Total, S 9.7 8.6 - 10.0 mg/dL 11/16/2018 1 :54 PM [facility] [place] [facility] Glucose, S 79 70 - 140 mg/dL 11/16/2018 1:54 PM T [facility] [place] Specimen Anatomical Collection Method Collection Time Receive d Time (Source) Location / / Volume Laterality Blood (Blood, 11/16/2018 10:35 11/16/2018 1:03 Venous) AM CDT PM CDT Bonnie Franz M.D. LAB BLOOD ADD-ON Performing Organization Address [facility] Phon e Number [facility] [address] [place] [phone] LAB S-TSH (Thyroid-Stimulating Hormone - Sensitive) (11/16/2018 10:35 AM CDT) athologist Signature TSH, Sensitive 2.7 0.3 - 4.2 11/16/2018 [facility] mIU/L 1:54 PM CDT [facility] Comment: Biotin has been identified by the kayley granger as a potential interfering substance. ??Higher concentr ations of biotin may be found in multivitamins, hair/nail supple ments, and workout supplements. ??If the result does not ma h clinical observations, repeat testing after patient refrains fr om the use of supplements for at least 12 hours. Specimen Anatomical Collection Method Collection Time Receive d Time (Source) Location / / Volume Laterality Blood (Blood, 11/16/2018 10:35 11/16/2018 1:03 Venous) AM CDT PM CDT Bonnie Franz M.D. LAB BLOOD ADD-ON Performing Organization Address [facility] Phon e Number [facility] [place] [address] [place] [phone] LAB Lipid Panel (11/16/2018 10:35 AM CDT) athologist Signature Cholesterol, 190 mg/dL 11/16/2018 [facility] Total 1:54 PM CDT [facility] Comment: ----REFERENCE VALUE---- Desirable: < 200 Borderline high: 200 - 239 High: > or = 240 Triglycerides 95 mg/dL 11/16/2018 1:[address] [facility] Comment: ----REFERENCE VALUE---- Normal: <150 Borderline high: 150-199 High: 200-499 Very high: > or =500 Cholesterol, HDL, S 68 >=50 mg/dL 11/16/2018 1:54 PM CDT [facility] [place] [facility] Calculated LDL 103 mg/dL 11/16/2018 1:54 PM CDT [facility] [place] [facility] Comment: ----REFERENCE VALUE---- Desirable: <100 Above Desirable: 100-129 Borderline high: 130-159 High: 160-189 Very high: > or =190 Cholesterol, Non-HDL, 122 mg/dL 11/16/2018 1:54 PM CDT [facility] [place] [facility] Comment: ----REFERENCE VALUE---- Desirable: <130 Above Desirable: 130-159 Borderline high: 160-189 High: 190-219 Very high: > or =220 Specimen Anatomical Collection Method Collection Time Receive d Time (Source) Location / / Volume Laterality Blood (Blood, 11/16/2018 10:35 11/16/2018 1:03 Venous) AM CDT PM CDT Bonnie Franz M.D. LAB BLOOD ADD-ON Performing Organization Address City/State/ZIP Code Phon e Number 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 PCP - General Family Medicine 08/25/18 01/08/202199 [place] [phone] documented as of this encounter
--- OUTSIDE RECORDS SUMMARY | 2022-04-10 14:58 | XMS_ITS | Encounter Summary ---
:1980 Author Organization [facility] Address [address] [place] [address] Care Team Providers Name Role Phone Bonnie Franz M.D. Primary Care Provider + [phone] Reason for Referral Outpatient (Routine) - Closed Specialty Diagnoses / Procedures Referred By Contact Refer red To Contact Diagnoses Pain Low Back Chronic Spondylosis Lumbar Without Myelopathy Lito James D.O. [facility] [place] [facility] Procedures [place] Sacroiliac Joint Injection Right AK INJ SI JT W MARIAJOSE W ARTHROGRPHY HC INJ SI JT W MARIAJOSE W ARTHROGRPHY [address] [place] [id number] Referral ID Status Reason Start Date Expiration Date Visits Requ ested Visits Authorized [id number] Closed 01/24/2019 01/24/2020 1 1 Reason for Visit Reason Comments Back Pain MRI results Knee Pain bilateral Outpatient (Routine) - Closed Specialty Diagnoses / Referred By Contact Referred To Contact Procedures Physical Medicine and Lito James D.O. [facility] [place] [facility] [id number] [place] [id number] Referral ID Status Reason Start Date Expiration Date Visits Requ ested Visits Authorized [id number] Closed 12/16/2018 12/16/2019 1 1 Encounter Details Date Type Department Care Team Description 01/24/2019 Office Visit Department of Physical Lito James, Pain Low Back Chronic (Primary Dx); Medicine and D.O. Spondylosis Lumbar [place]elopathy[place] [address] [address] Pain Kne e Left; [address] Pain Knee Right; [address] [place], [place] Secondary Osteoarthritis Kne e Bilateral; [place]ANKAJ SEGURA [address] Obesity Body Mass Index 30-39.9 Adult [id number] Social History Tobacco Use Types Packs/Day Years [...] do you attend scientology or Never 2021 judaism services? 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 - 01/24/2019 2:30 PM CDT Follow-Up Plan: __ Prescription medications: Voltaren gel __ Weight loss, including decreased oral intake and increased physical activity __ Referrals/labs/imaging/procedures/DME (orders): Right SI joint corticosteroid injection in [place] __ Follow-up phone call/portal message: If interested in further injection therapy for the knees (repeat steroid, platelet rich plasma, etc.) as discussed for further treatment purposes __ Follow-up clinic appointment: 2 weeks if no improvement of symptoms to determine appropriate further medical care moving forward __ Scheduling desk Please feel free to call ([phone]) or message me on the [facility] Patient Portal if you have any questions. documented in this encounter Consult Notes Lito James D.O. - 01/24/2019 2:30 PM CDT Physical Medicine & Rehabilitation Follow-Up Clinic Note Gricelda Roberts is a 38 y.o. female who is seen in follow up for discussion of MR of the lumbar spine without contrast results and evaluation of bilateral knee pain. SUBJECTIVE Last visit was on 12/16/2018. Symptoms for the low back have been the same since her last clinical visit. Been using Tylenol, ice, and heat for improvement of pain and has been completing her home exercises for further treatment purposes. Has not obtained a TENS unit as written for since her last clinical visit. Has not returned to completion of lpn care manager since her last clinical visit. Notes right-sided low back pain without radiation. Pain is 9/10 currently. Symptoms are worse with standing and with bending forward. Notes numbness/tingling of the right lateral thigh to the right knee. Notes bilateral lower extremity weakness. Denies any bowel/bladder incontinence. Denies any saddleanesthesia. Denies any trauma/falls since her last clinical visit. Notes bilateral knee pain that has been going on for years as located anterior that is worse with walking long distances, standing, etc. Treatment in the past has consisted of formal physical therapy at [facility], cane use, knee bracing, previous corticosteroid injections, completed into the left knee in 2015 with improvement of symptoms for 2 months, and completion of bilateral Synvisc One injections completed at [facility] in 2017 with improvement of symptoms for 2 months. Notes clicking and swelling of the bilateral knees. Denies any consistent, locking, popping, catching, or bruising of the bilateral knees. Denies any previous knee surgeries. The following portions of the patient's history were reviewed and updated as appropriate: allergies,current medications and problem list OBJECTIVE Vitals: 01/24/19 1423 BP: 111/69 Pulse: 88 Temp: 37.3 ??C BMI Readings from Last 3 Encounters: 12/16/18 34.81 kg/m?? 11/19/18 35.59 kg/m?? 11/16/18 35.70 kg/m?? Wt Readings from Last 3 Encounters: 12/16/18 94.6 kg 11/19/18 96.6 kg 11/16/18 97 kg Physical Exam General: healthy, alert, obese, and in no acute distress Neurologic: motor exam as noted below Musculoskeletal: Bilateral knees Inspection: No erythema, ecchymosis, or swelling present Palpation: Tenderness - medial tibial plateau No tenderness - patellar tendon, patella, distal quadriceps insertion, lateral femoral condyle, medial femoral condyle, medial joint line, lateral joint line and lateral tibial plateau Effusion - absent Patellofemoral crepitus - present Active Range of Motion: 0 0 extension Strength: Quadriceps - 5/5 Extensor mechanism intact Special Tests: Positive: patellar grind and single leg squatting Negative: patella apprehension, quadriceps active test, ballottment and Brianne's THORACIC/LUMBAR SPINE Inspection: No redness, swelling, overlying skin change, or gross deformity/asymmetry Palpation: No tenderness - sacroiliac joints (right) Special Tests: Positive: MARIAH (right), Gaenslen's (right) and facet compression (right) Negative: none Diagnostics no x-rays indicated during today's clinical visit, previous film(s) were reviewed today, independentinterpretation/visualization of images was completed, and results were discussed with the patient and outside medical record(s) from [facility] were reviewed today and discussed with the patient MR lumbar spine without contrast - 12/23/2018 IMPRESSION: 1. Mild lumbar spondylosis. 2. Facet hypertrophy at L4-L5 and L5-S1. 3. At L5-S1, right moderate foraminal stenosis contacts but does not compress the exiting right L5 nerve root. ASSESSMENT / PLAN #1 Right-sided low back pain without radiation #2 Lumbar spondylosis #3 Bilateral knee pain #4 Secondary knee osteoarthrosis #5 Non morbid obesity Current lumbar spine symptomatology likely related to lumbar facet arthropathy versus sacroiliac joint pain syndrome. Ordered a diagnostic/therapeutic right sacroiliac joint corticosteroid injection abimbola completed in [place] for further treatment purposes. Patient wished to continue with her home exercise program as previously prescribed and hold on returning to formal physical therapy at this timefor further treatment purposes. Follow up in clinic in 2 weeks after completion of a diagnostic/therapeutic right sacroiliac joint corticosteroid injection if no improvement of symptoms are noted to consider completion of a right L5-S1 lumbar facet joint corticosteroid injection for further treatment p urposes. Discussed further treatment options with the patient including initiation of Voltaren gel, oral painmedication management, activity modification, further formal physical therapy, injection therapy, weight loss, and surgical intervention. Patient wished to proceed with initiation of Voltaren gel whichis sent to the patient's pharmacy to be used as needed for improvement of pain/discomfort. Instructed to modify activities to help with her overall current medical state and to continue with her home exercises as previously prescribed during formal physical therapy. Discussed bilateral knee intra-artic ular corticosteroid injections with ultrasound guidance, bilateral knee intra- articular platelet rich plasma injections ultrasound guidance, etc, but the patient wished to think about her treatment options at this time with patient education materials given to the patient regarding these injection treatment options and the patient will call/send a portal message if interested in proceeding forward with injection therapy at this time for further treatment purposes. Discussed importance of weight loss, including decreased oral intake and increased physical activity. Follow-up as needed at this time for further evaluation/medical care. Consider aqua therapy, genicular nerve radiofrequency ablations, 2nd orthopedic surgical consultation, further formal physical therapy, etc as deemed appropriate moving forward. Lito James DO, CAQSM Magnetic Resonance Imaging Coordinator Plaster Model And Mold Maker Physical Medicine & Rehabilitation Patient's conditions were thoroughly discussed during today's visit with greater than 50% of the visit spent counseling the patient with total time spent [id number] with the patient being 40 minutes. documented in this encounter Plan of Treatment Not on filedocumented as of this encounter Results FL Sacroiliac Joint Injection Right (02/07/2019 1:56 PM CDT) Specimen (Source) Anatomical Collection Method Collection Time Re ceived Time Location / / Volume Laterality 02/07/2019 2:59 PM CDT Impressions [id number] - 02/07/2019 3:00 PM CDT Successful fluoroscopic-guided therapeutic injection of the right sacroiliac joint. Narrative [id number] - 02/07/2019 3:00 PM CDT EXAM: FL SACROILIAC JOINT INJECTION RIGHT PROCEDURE: Sterile; 1% lidocaine for loc al anesthesia. Location: RIGHT Needle size: 25G Instilled in Joint: Intra-articular posi tioning was verified with injection of a small volume iodinated contrast. Following this, a mixture of sterile 3mL 0.5% Ropivacaine and 1 mL (40mg) of Kenalog was instilled into the joint spa ce. Other: Preprocedure pain 8/10. Postproce dure pain 6/10. Complications: None PREPROCEDURE: Patient seen, evaluated, a nd history reviewed. Discussed risks, benefits, alternatives for procedure, an d obtained informed consent. ??Patient understands information and questions an swered. Immediately prior to starting the procedure, in the presence of the as sisting personnel, procedural pause was conducted to verify correct patient iden tity and verification of procedure to be performed, and as applicable, correct si de and site, correct patient position, availability of implants, special equipm ent, or special requirements, and all image and specimen identification data. The roles and responsibilities of care team members, residents, and fellows wer e discussed. The medication list was reviewed and there are no changes to cur rent medications. Patient Education provided by a care merchandise flow team member. Ready to learn, no apparent learning barriers were identified. Post-procedure care exp lained; patient expressed understanding of the content. Procedure Note Donis Pringle M.D. - 02/07/2019 EXAM: FL SACROILIAC JOINT INJECTION RIGH T PROCEDURE: Sterile; 1% lidocaine for loc al anesthesia. Location: RIGHT Needle size: 25G Instilled in Joint: Intra-articular posi tioning was verified with injection of a small volume iodinated contrast. Following this, a mixture of sterile 3mL 0.5% Ropivacaine and 1 mL (40mg) of Kenalog was instilled into the joint spa ce. Other: Preprocedure pain 03/19. Postproce dure pain 01/17. Complications: None PREPROCEDURE: Patient seen, evaluated, a nd history reviewed. Discussed risks, benefits, alternatives for procedure, an d obtained informed consent. Patient understands information and questions an swered. Immediately prior to starting the procedure, in the presence of the as sisting personnel, procedural pause was conducted to verify correct patient iden tity and verification of procedure to be performed, and as applicable, correct si de and site, correct patient position, availability of implants, special equipm ent, or special requirements, and all image and specimen identification data. The roles and responsibilities of care team members, residents, and fellows latha cox discussed. The medication list was reviewed and there are no changes to cur rent medications. Patient Education provided by a care merchandise flow team member. Ready to learn, no apparent learning barriers were identified. Post-procedure care exp lained; patient expressed understanding of the content. IMPRESSION: Successful fluoroscopic-guided therapeut ic injection of the right sacroiliac joint. Lito VALDOVINOS FLUOROSCOPY PROCEDURES Performing Organization Address City/State/ZIP Code Phon e Number [id number] NA documented in this encounter Visit Diagnoses Diagnosis Pain Low Back Chronic - Primary Spondylosis Lumbar Without Myelopathy Pain Knee Left Pain Knee Right Secondary Osteoarthritis Knee Bilateral Obesity Body Mass Index 30-39.9 Adult Pain Low Back Chronic Spondylosis Lumbar Without Myelopathy documented in this encounter Care Teams Boat Rental Clerk Relationship Specialty Start Date End Date Bonnie Franz M.D. PCP - General Family Medicine 08/25/18 01/08/20 [address] [place] [id number] documented as of this encounter
--- OUTSIDE RECORDS SUMMARY | 2022-04-10 14:58 | XMS_ITS | Encounter Summary ---
:1980 Author Organization [facility] Address [address] [place] [address] Care Team Providers Name Role Phone Bonnie Farnz M.D. Primary Care Provider + [phone] Encounter Details Date Type Department Care Team Description 02/01/2019 Orders Only [facility] Pharmacy - Norman Santiago [address] [facility] [place] [phone] Social History Tobacco [...] do you attend temple or Never 2021 druze services? 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 PCP - General Family Medicine 08/25/18 01/08/[address] [phone] documented as of this encounter
--- OUTSIDE RECORDS SUMMARY | 2022-04-10 14:58 | XMS_ITS | Encounter Summary ---
:1980 Author Organization [facility] Address [address] [place] [address] Care Team Providers Name Role Phone Bonnie Franz M.D. Primary Care Provider [phone] Encounter Details Date Type Department Care Team Description 09/06/2018 Orders Only Department of [facility] Franklyn barahona[facility] [address] [phone] (Wo rk) Social History Tobacco Use Types [...] do you attend synagogue or Never 2021 latter day services? Do [...] or slept in a halfway (including now)? 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 PCP - General Family Medicine 08/25/18 01/08/[address] [phone] documented as of this encounter
--- OUTSIDE RECORDS SUMMARY | 2022-04-10 14:58 | XMS_ITS | Encounter Summary ---
:1980 Author Organization [facility] Address [address] [place] [address] Care Team Providers Name Role Phone Bonnie Franz M.D. Primary Care Provider [phone] Reason for Referral Outpatient (Routine) - Closed Specialty Diagnoses / Referred By Contact Referred To Contact Procedures Physical Medicine and Diagnoses Pain Low Back Chronic [facility] Bonnie rosado M.D. [address] [place] [phone] Referral ID Status Reason Start Date Expiration Date Visits Requ ested Visits Authorized [id number] Closed 12/05/2018 12/05/2019 1 1 Encounter Details Date Type Department Care Team Description 12/05/2018 Orders Only Department of [facility] Yuli wilder Low Back Chronic Medicine, Bonnie Lauren, (Primary Dx) Clinic, in [place] [address] [place] [id number] Social History Tobacco Use Types Packs/Day Years [...] do you attend hoahaoism or Never 2021 voodoo services? Do you [...] slept in a care home (including now)? 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 PCP - General Family Medicine 08/25/18 01/08/[address] [phone] documented as of this encounter
--- OUTSIDE RECORDS SUMMARY | 2022-04-10 14:58 | XMS_ITS | Encounter Summary ---
:1980 Author Organization [facility] Address [address] [place] [address] Care Team Providers Name Role Phone Bonnie Franz M.D. Primary Care Provider + [phone] Encounter Details Date Type Department Care Team Description 09/06/2018 Clinical Communication Department of Family [place] [facility], Bonnie Lauren, [facility], in [place] [address] [place] [phone] Social History Tobacco Use Types Packs/Day Years [...] do you attend samaritan or Never 2021 hoahaoism services? Do you [...] or slept in a long-term (including now)? 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 PCP - General Family Medicine 08/25/18 01/08/[address] [phone] documented as of this encounter
--- OUTSIDE RECORDS SUMMARY | 2022-04-10 14:58 | XMS_ITS | Encounter Summary ---
:1980 Author Organization [facility] Address [address] [place] [address] Care Team Providers Name Role Phone Bonnie Franz M.D. Primary Care Provider [phone] Encounter Details Date Type Department Care Team Description 02/21/2019 Orders Only Pharmacy Prior Auth Norman Pelaez [phone] Social History Tobacco Use Types Packs/Day Years [...] do you attend taoism or Never 2021 spiritism services? 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 PCP - General Family Medicine 08/25/18 01/08/[address] [phone] documented as of this encounter
--- OUTSIDE RECORDS SUMMARY | 2022-04-10 14:58 | XMS_ITS | Encounter Summary ---
:1980 Author Organization [facility] Address [address] [place] [address] Care Team Providers Name Role Phone Bonnie Franz M.D. Primary Care Provider + [phone] Reason for Visit Reason Onset Date Comments Med Dose Change 01/31/2019 DICLOFENAC GEL Encounter Details Date Type Department Care Team Description 01/31/2019 Clinical [facility] - Lito James, Med Dose Ch elsie Communication Daniele Gregg (DICLOFENAC GEL) [address] [address] [address] DARREL SAWANT, [place] [address] [phone] Social History Tobacco Use Types Packs/Day Years [...] do you attend restorationist or Never 2021 church services? Do you [...] or slept in a custodial (including now)? 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 - 02/02/2019 4:17 PM CDT Patient contacted. Will request that pharmacy gets approval with insurance and will purchase OTC if necessary. Telephone Encounter - Christy Lorenzo - 02/02/2019 4:03 PM CDT Patient returning call to nurse Vero. Unable to reach nurse. Please return patient call at [phone]. Patient has authorized a detailed message to be left at this number Telephone Encounter - Vero Metzger L.PRafalNRafal - 02/02/2019 9:21 AM CDT Spoke with insurance and with pharmacy. Pharmacy stated that capsaicin is able to be purchased OTC. Insurance stated that nothing was requested by the pharmacy for capsaicin. Message left for patient to return call. Telephone Encounter - Lito James D.O. - 02/01/2019 9:55 PM CDT Please call the patient's insurance company to ask which highlighted medications in their documentation they will cover and then will be able to prescribe a medication appropriately. Lito James DO, CAQSM Keyboard Specialist Glass Laminating Operator Physical Medicine & Rehabilitation Telephone Encounter - Goldie Aguillon - 02/01/2019 5:01 PM CDT Patient called [phone], insurance will not cover medication Telephone Encounter - Vero Metzger L.P.N. - 02/01/2019 4:27 PM CDT Patient notified Telephone Encounter - Lito James D.O. - 02/01/2019 3:15 PM CDT Capsaicin 0.1% cream sent to the patient's pharmacy to be used up to 3 times/day as needed for improvement of knee pain. Please call the patient to inform. Lito James DO, CAQSM Keyboard Specialist Glass Laminating Operator Physical Medicine & Rehabilitation Telephone Encounter - Vero Metzger L.P.N. - 02/01/2019 1:50 PM CDT Spoke with patient and would like something in place of Voltaren gel. No preference on oral or cream Telephone Encounter - Nery Torres - 02/01/2019 1:38 PM CDT Patient returning call [phone] Telephone Encounter - Vero Metzger L.P.N. - 02/01/2019 8:11 AM CDT Message left for patient to return my call. Telephone Encounter - Lito James D.O. - 01/31/2019 9:31 PM CDT Please call the patient to inform that insurance is not going to cover Voltaren gel currently. Ask if would like an alternative oral or cream to use in place of this medication for her knee pain presently. Lito James DO, CAANITRAM Keyboard Specialist Glass Laminating Operator Physical Medicine & Rehabilitation Telephone Encounter - Brook Piedra - 01/31/2019 9:22 AM CDT Images from the original note were not included. documented in this encounter Plan of Treatment Not on filedocumented as of this encounter Visit Diagnoses Not on filedocumented in this encounter Care Teams Barrel Bridge Assembler Relationship Specialty Start Date End Date Bonnie Franz M.D. PCP - General Family Medicine 08/25/18 01/08/[address] [phone] documented as of this encounter
--- OUTSIDE RECORDS SUMMARY | 2022-04-10 14:58 | XMS_ITS | Encounter Summary ---
:1980 Author Organization [facility] Address [address] [place] [address] Care Team Providers Name Role Phone Bonnie Franz M.D. Primary Care Provider + [phone] Reason for Referral MRI/CAT/PET Scan (Routine) - Closed Specialty Diagnoses / Procedures Referred By Contact Refer red To Contact Radiology Diagnoses Abnormal Findings On Diagnostic Imaging Of Other Parts Of Musculoskeletal System Lito James, D.O. [facility] Procedures MR Lumbar Spine without IV Contrast [place] MRI LUMB SPINE WO CNTRST HC MRI LUMB SPINE WO CNTRST [address] [place] [address] Referral ID Status Reason Start Date Expiration Date Visits Requ ested Visits Authorized [id number] Closed 12/16/2018 12/16/2019 1 1 Reason for Visit Auth/Cert Specialty Diagnoses / Procedures Referred By Contact Refer red To Contact Diagnoses Abnormal findings on diagnostic imaging of other parts of musculoskeletal system Procedures IL MRI LUMB SPINE WO CNTRST Referral ID Status Reason Start Date Expiration Date Visits Requ ested Visits Authorized [id number] 1 1 Encounter Details Date Type Department Care Team Description 12/23/2018 Hospital Department of Lito James, Abnormal Find ings On Encounter Radiology in [place], [address] Parts O [facility] Musculoskeletal System [address] [place], [place] [phone] Social History Tobacco Use Types Packs/Day Years [...] do you attend amish or Never 2021 temple services? 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 nystatin-triamcinolone [...] 04/04/2020 mL syringe applicable route. topiramate (TOPAMAX) After completion of 90 tablet 3 201812/05/2019 100 mg titration with 25 mg tabletIndications: tabs, switch to 100 mg Migraine Headache tab and take 1 tab nightly. topiramate (TOPAMAX) 1 tab every PM for 1 42 tablet 0 12/1412/05/2019 25 mg week, then increase by tabletIndications: 25 mg each week to a Migraine Headache goal dose of 100 mg nightly then switch to 100 mg tablets traZODone (DESYREL) Take 1 tablet (100 mg 90 tablet 3 08/2604/04/2020 100 mg tablet total) by mouth daily. ZOLMitriptan (ZOMIG) 5 Take by mouth as 0 06/24/2021 mg tablet needed. documented as of this encounter Plan of Treatment Not on filedocumented as of this encounter Procedures Procedure Name Priority Date/Time Associated Diagnosis Comme nts MR LUMBAR SPINE RAD - Routine 12/23/2018 4:31 Abnormal Findings On Results for WITHOUT IV (most inpatients PM CDT Diagnostic Imaging Of th is procedure CONTRAST and all Other Parts Of are in the outpatients) Musculoskeletal results System section. documented in this encounter Results MR Lumbar Spine without IV Contrast (12/23/2018 4:31 PM CDT) Anatomical Region Laterality Modality Lumbar Spine, Neuroradiology RST LOS, Neuroradiology N/A Magnetic Resonance ARZ LOS, Neuroradiology FLA LOS Specimen (Source) Anatomical [...] the left neural foramen. Mild bilateral fora kateiln stenosis. Mild bilateral facet hypertrophy. L5-S1: ??Moderate [...] the exiting right L5 nerve root. Lito James D.O. IMDon MRI PROCEDURES documented in this encounter Visit Diagnoses Diagnosis Abnormal Findings On Diagnostic Imaging Of Other Parts Of Musculoskeletal System documented in this encounter Care Teams De Icer Kit Assembler Relationship Specialty Start Date End Date Bonnie Franz M.D. PCP - General Family Medicine 08/25/18 01/08/[address] [address] documented as of this encounter
--- OUTSIDE RECORDS SUMMARY | 2022-04-10 14:58 | XMS_ITS | Encounter Summary ---
:1980 Author Organization [facility] Address [address] [place] [address] Care Team Providers Name Role Phone Bonnie Franz M.D. Primary Care Provider [phone] Reason for Visit Reason Onset Date Comments medication dosage 09/20/2018 Encounter Details Date Type Department Care Team Description 09/20/2018 Clinical [facility] medication dosage Medicine, [facility], in [place], [place] [address] [phone] Social History Tobacco Use Types Packs/Day Years [...] do you attend uatsdin or Never 2021 gnosticist services? 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 - 09/22/2018 9:06 AM MUSIC SOUND LIGHT TECHNICIAN SUBJECTIVE CHIEF COMPLAINT / REASON FOR CALL medication dosage INFORMATION DISCUSSED Patient given advisement from dr zafar and notified that correct prescription and directions have been sent to [facility] pharmacy PLAN Disposition/Recommendation: self-care appropriate at this time . Information: not applicable Caller agreeable to plan of care: yes The following references were used: provider dr zafar C SOUND LIGHT TECHNICIAN Telephone Encounter - Bonnie Franz M.D. - 09/21/2018 5:03 PM MUSIC SOUND LIGHT TECHNICIAN It needed to be ordered that way previously to even out her supply. I have now ordered 3 tablets 3 times daily C SOUND LIGHT TECHNICIAN Telephone Encounter - Maryam Shelton, L.P.N. - 09/20/2018 5:26 PM MUSIC SOUND LIGHT TECHNICIAN Please advise on response to patient C SOUND LIGHT TECHNICIAN Telephone Encounter - Yolanda Evangelista - 09/20/2018 4:25 PM CST Reason for Communication: Patient's , Amador called, said the rx has been called in incorrectlytwice, they checked about 5 min with Selene Blackwell. Current Can Nursing/Provider leave a detailed message: yes Did the patient refuse triage through Nurse line? (for symptom based concerns) Action Needed: please call Name of Medication (if relevant): C SOUND LIGHT TECHNICIAN Telephone Encounter - Jeanie Alexander - 09/20/2018 2:17 PM CST Reason for Communication: Medication issue Current Can Nursing/Provider leave a detailed message: yes Did the patient refuse triage through Nurse line? (for symptom based concerns) Action Needed: Patient is calling wanting to speak to a nurse in regards to a medication. It's suppose to be 3-300mg tablets 3 times a day. The pharmacy has the dosage for 2-300mg tablets 3 times a day. Please clarify and call patient back. Name of Medication (if relevant): Gabapentin C SOUND LIGHT TECHNICIAN documented in this encounter Plan of Treatment Not on filedocumented as of this encounter Visit Diagnoses Not on filedocumented in this encounter Care Teams Car Mover Relationship Specialty Start Date End Date Bonnie Franz M.D. PCP - General Family Medicine 08/25/18 01/08/[address] [phone] documented as of this encounter
--- OUTSIDE RECORDS SUMMARY | 2022-04-10 14:58 | XMS_ITS | Encounter Summary ---
:1980 Author Organization [facility] Address [address] [place] [address] Care Team Providers Name Role Phone Bonnie Franz M.D. Primary Care Provider [phone] Reason for Referral Medication Prior Authorization (Routine) - Closed Specialty Diagnoses / Procedures Referred By Contact Refer red To Contact Lito James [place]O. [address] [place] [address] Referral ID Status Reason Start Date Expiration Date Visits Requ ested Visits Authorized [id number] Closed Reason for Visit Reason Onset Date Comments Rx Prior Authorization 02/09/2019 DENIAL OF DICLOFE NAC SODIUM GEL Encounter Details Date Type Department Care Team Description 02/09/2019 Clinical [facility] Pharmacy - Lito James Rx Prior Communication Ernesto Gregg Authorization [id number] [address] Marlene (DENIAL O Yuliet MENENDEZ, NANCY [address], [place], [place] GEL) [phone] Social History Tobacco Use Types Packs/Day Years [...] do you attend samaritan or Never 2021 rastafari services? Do you [...] or slept in a [facility] (including now)? 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 - 02/17/2019 9:16 AM CDT Message left letting patient know that script is sent to pharmacy Telephone Encounter - Lito James D.O. - 02/17/2019 7:32 AM CDT New prescription sent to [facility] as requested. Please call the patient to inform. Lito James DO, VERITOM Environmental Services Project Manager Entry Level Account Manager Physical Medicine & Rehabilitation Telephone Encounter - Vero Metzger L.P.N. - 02/16/2019 4:11 PM CDT Patient is aware that Voltaren gel has been denied and that Capsaicin has been ordered in place of the Voltaren. Stated they are having issues with the pharmacy. The pharmacy says its denied, but insurance is saying they never tried to submit it. Requesting that prescription be sent to [facility] instead. Telephone Encounter - Brendan Jacob - 02/09/2019 8:28 AM CDT The patient???s health insurer has denied prior authorization for DICLOFENAC SODIUM GEL. PLEASE SEE DENIAL LETTER FOR MORE INFORMATION. Your options: 1. Appeal the decision by reaching out to the patient???s insurer directly. 2. Consider changing the patient???s medication therapy. 3. If not appealing or prescribing a different Rx, the prescription has already been released to thepharmacy so the patient has the option to pay full currie for the item if desired. A COPY OF THE INITIAL SUBMISSION AND OF THE COMPLETE DENIAL LETTER CAN BE FOUND UNDER THE PATIENT'S MEDIA TAB. If you have any follow-up questions regarding this communication, please contact the Outpatient Pharmaceutical PA department at email address [facility]. Thank you documented in this encounter Plan of Treatment Not on filedocumented as of this encounter Visit Diagnoses Not on filedocumented in this encounter Care Teams Director Corporate Relationship Specialty Start Date End Date Bonnie Franz M.D. PCP - General Family Medicine 08/25/18 01/08/[address] [address] documented as of this encounter
--- OUTSIDE RECORDS SUMMARY | 2022-04-10 14:58 | XMS_ITS | Encounter Summary ---
:1980 Author Organization [facility] Address [address] [place] [address] Care Team Providers Name Role Phone Bonnie Franz M.D. 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 [facility] [place] [facility] Procedures FL Sacroiliac Joint Injection Right [place] INJ SI JT W MARIAJOSE W ARTHROGRPHY HC INJ SI JT W MARIAJOSE W ARTHROGRPHY [address] [place] [address] Referral ID Status Reason Start Date Expiration Date Visits Requ ested Visits Authorized [id number] Closed 01/24/2019 01/24/2020 1 1 Encounter Details Date Type Department Care Team Description 02/07/2019 Hospital Encounter Department of Lito James, Pain Lo w Back Chronic; Radiology in D.O. Spondylosis Lumbar Without Myelopathy [place], [place] [address] Marlene Parada [address] [place], [place] [address] [phone] Social History Tobacco Use Types Packs/Day Years [...] do you attend christianity or Never 2021 bahai services? 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 500 mg(1,250mg) -400 unit tablet capsaicin (ARTHRITIS Apply 1 application 42.5 g 2 201802/17/2019 PAIN RELIEF,CAPSAIC,) topically 3 (three) 0.1 % cream times a day as needed (Knee pain). citalopram (CeleXA) 40 Take 1 tablet by [...] spasms. diclofenac sodium Apply 4 g topically 4 300 g 2 019 04/04/2020 (VOLTAREN) 1 % gel (four) times a day as needed (Pain). escitalopram (LEXAPRO) Take 1 tablet (20 mg [...] tablet needed. documented as of this encounter Nursing Notes Nilsa Horn R.N. - 02/07/2019 1:49 PM CDT Patient tolerated procedure without complication and site(s) were well coagulated with adhesive bandaids applied. Patient was able to ambulate independently per baseline and was discharged ambulatory. Nilsa Horn R.N. - 02/07/2019 1:11 PM CDT Patient denies being , taking blood thinners, denies diabetes and any active infections. Patient has a lead driver present today. Education/pamphlet provided to patient. Consent signed. documented in this encounter Plan of Treatment Not on filedocumented as of this encounter Procedures Procedure Name Priority Date/Time Associated Comments Diagnosis FL SACROILIAC RAD - Routine 02/07/2019 1:56 Pain Low Back Results f or this JOINT INJECTION (most inpatients PM CDT Chronic procedure are in RIGHT and all Spondylosis the results outpatients) Lumbar Without section. Myelopathy documented in this encounter Results FL Sacroiliac Joint Injection Right (02/07/2019 1:56 PM CDT) Specimen (Source) Anatomical Collection Method Collection Time Re ceived Time Location / / Volume Laterality 02/07/2019 2:59 PM CDT Impressions [id number] - 02/07/2019 3:00 PM CDT Successful fluoroscopic-guided therapeutic injection of the right sacroiliac joint. Narrative [id number] - 02/07/2019 3:00 PM CDT EXAM: FL [...] medications. Patient Education provided by a care body team member. Ready to learn, no apparent [...] Discussed risks, benefits, alternatives for procedure, an donte obtained informed consent. Patient understands information and [...] care team members, residents, and fellows latha e discussed. The medication list was reviewed and there are no changes to cur rent medications. Patient Education provided by a care body team member. Ready to learn, no apparent learning barriers were identified. Post-procedure care exp lained; patient expressed understanding of the content. IMPRESSION: Successful fluoroscopic-guided therapeut ic injection of the right sacroiliac joint. 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 documented in this encounter Administered Medications Inactive Administered Medications - up to 3 most recent administrations Medication Order MAR Action Action Date Dose Rate Site iohexol 300 mg iodine/mL solution 1 Given 02/07/2019 1:27 PM CDT 1 mL mL (OMNIPAQUE) 1 mL, intra-articular, Once in imaging, contrast, Starting on Thu02/07/19 at 1316, For 1 dose lidocaine 10 mg/mL (1 %) injection 2.25 mL Given 02/07/2019 1:27 PM CDT 4.5 mL (XYLOCAINE) 2.25 mL, intra-articular, Once, On Thu02/07/19 at 1330, For 1 dose ropivacaine (PF) 5 mg/mL (0.5 %) injection 15 Given 1:27 PM CDT 15 mg mg (NAROPIN) 15 mg (3 mL), intra-articular, Once, On Thu02/07/19 at 1330, For 1 dose sodium bicarbonate injection 0.25 mEq Given 02/07/2019 1:27 PM CDT 0.5 mEq 0.25 mEq, intra-articular, Once, On Thu02/07/19 at 1330, For 1 dose triamcinolone acetonide injection 40 mg Given 02/07/2019 1:27 PM CDT 40 mg (KENALOG-40) 40 mg, intra-articular, Once, On Thu02/07/19 at 1330, For 1 dose documented in this encounter Care Teams Medical Technologist Prn Relationship Specialty Start Date End Date Bonnie Franz M.D. PCP - General Family Medicine 08/25/18 01/08/[address] [address] documented as of this encounter
--- OUTSIDE RECORDS SUMMARY | 2022-04-10 14:59 | XMS_ITS | Encounter Summary ---
:1980 Author Organization [facility] Address [address] [place] [address] Care Team Providers Name Role Phone Qasim Meza P.A.-C. Primary Care Provider [phone] Encounter Details Date Type Department Care Team Description 07/23/2018 Orders Only Department of Family Yuli Bernabe (Primary Medicine, Bonnie Lauren Dx) Clinic, in [place] [address] [address] [phone] Social History Tobacco Use Types Packs/Day Years Used Date Smoking Tobacco: Never Smokeless Tobacco: Never Alcohol Use Standard Drinks/Week [...] do you attend worship or Never 2021 yarsani services? 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 PCP - General 01/22/17 08/24/[address] [place] [phone] documented as of this encounter
--- OUTSIDE RECORDS SUMMARY | 2022-04-10 14:59 | XMS_ITS | Encounter Summary ---
:1980 Author Organization [facility] Address [address] [place] [address] Care Team Providers Name Role Phone Bonnie Franz M.D. Primary Care Provider [phone] Reason for Visit Reason Comments Med Refill Encounter Details Date Type Department Care Team Description 08/22/2018 Refill Department of Family Medicine, Simon Dykes Refill [facility], in [place]nie [place] M.D. [place] [address] [address] [place] [address] [phone] Social History Tobacco Use Types Packs/Day Years [...] do you attend faith or Never 2021 uatsdin services? 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 PCP - General Family Medicine 08/25/18 01/08/[address] [address] documented as of this encounter
--- OUTSIDE RECORDS SUMMARY | 2022-04-10 14:59 | XMS_ITS | Encounter Summary ---
:1980 Author Organization [facility] Address [address] [place] [address] Care Team Providers Name Role Phone Qasim Meza P.A.-C. Primary Care Provider [phone] Encounter Details Date Type Department Care Team Description 05/17/2018 Clinical Communication Department of Qasim Gonzalez, Medicine, [place] [facility], in [address] [address] [place], [place] [phone] [address] (Work) [phone] Social History Tobacco Use Types Packs/Day Years [...] do you attend alevism or Never 2021 sikh services? 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/2021 7:35 PM ACCESS SPEC documented as of this encounter Plan of Treatment Not on filedocumented as of this encounter Visit Diagnoses Not on filedocumented in this encounter Care Teams Portal Administrator Relationship Specialty Start Date End Date Qasim Meza P.A.-C. PCP - General 01/22/17 08/24/[address] [place] [phone] documented as of this encounter
--- OUTSIDE RECORDS SUMMARY | 2022-04-10 14:59 | XMS_ITS | Encounter Summary ---
:1980 Author Organization [facility] Address [address] [place] [address] Care Team Providers Name Role Phone Qasim Meza P.A.-C. Primary Care Provider [phone] Encounter Details Date Type Department Care Team Description 07/30/2018 Orders Only Department of Family Qasim Meza, Medicine, [facility], P.ARafal -CRafal in [facility] [address] [facility] [address] [place] [address] [place] [address] [phone] Social History Tobacco Use Types Packs/Day Years [...] do you attend taoist or Never 2021 christianity services? 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/2021 7:35 PM DATABASE SUPPORT documented as of this encounter Plan of Treatment Not on filedocumented as of this encounter Visit Diagnoses Not on filedocumented in this encounter Care Teams Sample Tester Relationship Specialty Start Date End Date Qasim Meza P.A.-C. PCP - General 01/22/17 08/24/18 [address] [place] [address] documented as of this encounter
--- OUTSIDE RECORDS SUMMARY | 2022-04-10 14:59 | XMS_ITS | Encounter Summary ---
:1980 Author Organization [facility] Address [address] [place] [address] Care Team Providers Name Role Phone Qasim Meza P.A.-C. Primary Care Provider [phone] Encounter Details Date Type Department Care Team Description 08/11/2018 Clinical Communication Department of Qasim Gonzalez, Medicine, [place] [facility], in [address] [address] [place], [place] [phone] (Work) [phone] Social History Tobacco Use Types Packs/Day Years [...] you attend oriental orthodox or Never 2021 faith services? 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 - 08/11/2018 2:48 PM CLOTH CALENDER They are going to place a verbal order in [facility] for the next to rabies immunizations and I will go in and sign the orders. H CALENDER Telephone Encounter - Alia John APRN, C.N.P. - 08/11/2018 2:33 PM CLOTH CALENDER Yes, Basia please call [facility] pharmacy and asked them to put the order [facility] did with the 1st shot and I will sign it. H CALENDER Telephone Encounter - Qasim Meza P.A.-C. - 08/11/2018 2:30 PM CLOTH CALENDER Could you please take care of this since you saw her H CALENDER Telephone Encounter - Miryam Vega - 08/11/2018 2:06 PM CST Reason for Communication: the pharmacy at [facility] called and said they need written orders for pt's rabies shots, she has her next one at 4:30 on the today Current Phone Number: fax [phone] Can Nursing/Provider leave a detailed message: na Did the patient refuse triage through Nurse line? (for symptom based concerns)na Action Needed: Please fax over an order for the pt for her rabies shot Name of Medication (if relevant): Rabies shot H CALENDER documented in this encounter Plan of Treatment Not on filedocumented as of this encounter Visit Diagnoses Not on filedocumented in this encounter Care Teams Front Desk Officer Relationship Specialty Start Date End Date Qasim Meza P.A.-C. PCP - General 01/22/17 08/24/18 [address] [place] [phone] documented as of this encounter
--- OUTSIDE RECORDS SUMMARY | 2022-04-10 14:59 | XMS_ITS | Encounter Summary ---
:1980 Author Organization [facility] Address [address] [place] [address] Care Team Providers Name Role Phone Qasim Meza P.A.-C. Primary Care Provider [phone] Reason for Visit Reason Comments Med Refill Encounter Details Date Type Department Care Team Description 08/23/2018 Refill Department of Family Medicine, Cyndi Lugo LRafalP.NRafal Med Refill [facility], in [address] [place] [address] [place] [address] [place] [address] Social History Tobacco Use [...] do you attend yazdanism or Never 2021 mandaen services? 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 (for symptom based concerns)na Action Needed: phone call Name of Medication (if relevant):unknown CATCHER documented in this encounter Plan of Treatment Not on filedocumented as of this encounter Visit Diagnoses Not on filedocumented in this encounter Care Teams Tester Equipment Relationship Specialty Start Date End Date Qasim Meza P.A.-C. PCP - General 01/22/17 08/24/18 [address] [place] [address] documented as of this encounter
--- OUTSIDE RECORDS SUMMARY | 2022-04-10 14:59 | XMS_ITS | Encounter Summary ---
:1980 Author Organization [facility] Address [address] [place] [address] Care Team Providers Name Role Phone Qasim Meza P.A.-C. Primary Care Provider [phone] Encounter Details Date Type Department Care Team Description 06/28/2018 Ancillary Procedure Department of Physical Medicine and Rehab Social History Tobacco Use Types Packs/Day Years [...] do you attend samaritan or Never 2021 hindu services? 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 documented in this encounter Results PHYSICAL MEDICINE AND REHAB IMAGE EXAM (06/28/2018 11:40 AM COMMUNITY CULTURAL DEVELOPMENT OFFICER) Specimen (Source) Anatomical Collection Method Collection Time Re ceived Time Location / / Volume Laterality 06/28/2018 11:36 AM COMMUNITY CULTURAL DEVELOPMENT OFFICER Narrative [facility] - 06/28/2018 12:40 PM COMMUNITY CULTURAL DEVELOPMENT OFFICER This order has been created and auto-finalized [...] on filedocumented in this encounter Care Teams Journeyman Power Plant Operator Relationship Specialty Start Date End Date Qasim Meza P.A.-C. PCP - General 01/22/17 08/24/18 [address] [place] [phone] documented as of this encounter
--- OUTSIDE RECORDS SUMMARY | 2022-04-10 14:59 | XMS_ITS | Encounter Summary ---
:1980 Author Organization [facility] Address [address] [place] [address] Care Team Providers Name Role Phone Qasim Meza P.A.-C. Primary Care Provider [phone] Reason for Visit Reason Onset Date Comments rabies shot 08/04/2018 Encounter Details Date Type Department Care Team Description 08/04/2018 Clinical [facility] [place] [address] [phone] [phone] Social History Tobacco Use Types Packs/Day Years [...] do you attend jainism or Never 2021 christianity services? 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 - 08/04/2018 12:23 PM SEAT COVERER Called patient's to check if he had questions on the rabies vaccine. His will be in today to see shanon to hopefully get an order for [facility] to give the rabies vaccine. COVERER Telephone Encounter - Cosme De La Cruz - 08/04/2018 11:45 AM CST Reason for Communication: Rabies shot Order to [facility] Current Can Nursing/Provider leave a detailed message: yes Did the patient refuse triage through Nurse line? (for symptom based concerns) not offered Action Needed: Pt called to [facility] about Rabies shot. They told him that they would need an order from the Doctor to administer the Rabies shot Name of Medication (if relevant): COVERER documented in this encounter Plan of Treatment Not on filedocumented as of this encounter Visit Diagnoses Not on filedocumented in this encounter Care Teams Utility Pipe Layer Relationship Specialty Start Date End Date Qasim Meza P.A.-C. PCP - General 01/22/17 08/24/[address] [place] [phone] documented as of this encounter
--- OUTSIDE RECORDS SUMMARY | 2022-04-10 14:59 | XMS_ITS | Encounter Summary ---
:1980 Author Organization [facility] Address [address] [place] [address] Care Team Providers Name Role Phone Qasim Meza P.A.-C. Primary Care Provider [phone] Reason for Visit Reason Comments Hemorrhoids referred by Dr. Durán; very painful and bleeding Encounter Details Date Type Department Care Team Description 07/27/2018 Comprehensive Visit Department of Bruce Hodgson, Hemo rrhoids External Thrombosed (Primary Dx); General Surgery in M.D. Bleeding Rectal [place], [address] [place] [address] [place], [place] [phone] (Work) [phone] Social History Tobacco Use Types Packs/Day Years [...] do you attend bahai or Never 2021 tenriism services? 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 documented as of this encounter Last Filed Vital Signs Vital Sign Reading Time Taken Comments Blood Pressure 122/74 07/27/2018 3:41 PM SPRAY DRIER OPERATOR HELPER Pulse 70 07/27/2018 3:41 PM SPRAY DRIER OPERATOR HELPER Temperature 37 ??C (98.6 ??F) 07/27/2018 3:41 PM SPRAY DRIER OPERATOR HELPER Respiratory Rate 14 07/27/2018 3:41 PM SPRAY DRIER OPERATOR HELPER Oxygen Saturation - - Inhaled Oxygen Concentration - - Weight 90.5 kg (199 lb 8.3 oz) 07/27/2018 3:41 PM SPRAY DRIER OPERATOR HELPER Height 166.5 cm (5' 5.55) 07/27/2018 3:41 PM SPRAY DRIER OPERATOR HELPER Body Mass Index 32.65 07/27/2018 3:41 PM SPRAY DRIER OPERATOR HELPER documented in this encounter Consult Notes Bruce Hodgson M.D. - 07/27/2018 3:45 PM CST SUBJECTIVE REASON FOR CONSULT Gricelda Roberts is a 37 y.o. female who presents for evaluation of Hemorrhoids (referred by Dr. Durán; very painful and bleeding). She was referred by Bonnie Franz M.D. HISTORY OF PRESENT ILLNESS Ms. Roberts is being seen in consultation today for complaints of anal pain and bleeding. She has been experiencing some trouble off and on since early April when she felt a ???knot?? on the outside with some itching and burning. Apparently there has been a little bit of blood. However this past T hursday she had fairly significant pain and bleeding including a large clot along with the itching and burning. No fevers or chills. She tends to have loose stools ever since her gallbladder surgery more than a decade ago. However to try and avoid straining she has added additional MiraLax and softeners and her stools are pretty much watery at this point. She is not having incontinence. She has not had prior anorectal surgery. Her children were by . No prior colonoscopy. She has been using hemorrhoidal cream and tucks pads. This is not causing any burning or problems but it is not really helping much. In addition she has been soaking in the bathtub frequently which does temporarily helped the pain but then the pain and swelling are worse afterwards. She actually wondered about putting ice on it the other day. The following portions of the patient's history were reviewed and updated as appropriate: allergies,current medications, medical history, surgical history and problem list. Surgically she had appendix and gallbladder removal laparoscopically more than a decade ago. She hashad hysterectomy and in roughly 2010 she had a gastric bypass and had 120 lb weight loss. REVIEW OF SYSTEMS As per HPI otherwise not contributory OBJECTIVE BP 122/74 (BP Location: Right arm, Patient Position: Sitting, Cuff Size: Large) Pulse 70 Temp 37??C (Temporal) Resp 14 Ht 166.5 cm Wt 90.5 kg BMI 32.65 kg/m?? PHYSICAL EXAM General appearance: alert, oriented, and no acute distress. Her and 2 children were present throughout the interview and exam and he served as chaperoneat the patient's request. Exam was otherwise limited to the anorectal region. On inspection there is no large external hemorrhoidal disease but at the 11 to 12:00 position on theleft side posteriorly is a rounded firm density that was somewhat tender consistent with thrombosed hemorrhoid. The skin is not threatened. With Valsalva there is no prolapse of internal hemorrhoidal tissue and no apparent fissure can be seen. Digital rectal exam was tender at the site of the thrombosed hemorrhoid but otherwise not tender. Anoscopy was not attempted Diagnostics No relevant diagnostics for review today. ASSESSMENT / PLAN #1 Hemorrhoids External Thrombosed #2 Bleeding Rectal Thrombosed external hemorrhoid that start up 5 days ago. It is relatively small now and there is nothreatened skin. Lancing it is not indicated. She can continue the tucks pads and use some ice. She should not be soaking in the bathtub because of the increased swelling that can result from the heat.She should stop the laxatives and stool softeners which have given her liquid stool. If her stools tend to be loose without straining then she should use additional agents. I told her to expect this totake a few days to significantly improve and it may take a few weeks to resolve. However once the tender lump is gone if he is continuing to have trouble I think she would need to be re-evaluated for po ssible fissure. If all the pain goes away but the bleeding continues we may need to consider colonoscopy. She and her had some questions which were discussed. We reviewed a brochure with good pictures to help illustrate will we were discussing. They seem comfortable with and agreed to the plan. Answers for HPI/ROS submitted by the patient on 06/27/2018 No general issues: Yes No eye issues: Yes No ENT issues: Yes No heart issues: Yes No respiratory issues: Yes No GI issues: Yes Muscle pain/stiffness: Yes Pain or stiffness in the joints: Yes Back pain/stiffness: Yes No skin issues: Yes Headache: Yes Numbness or shooting pain in hands, arms, legs or feet: Yes Loud snoring: Yes Bruises/bleeds easily: Yes No urinary/reproductive issues: Yes Y DRIER OPERATOR HELPER documented in this encounter Plan of Treatment Not on filedocumented as of this encounter Visit Diagnoses Diagnosis Hemorrhoids External Thrombosed - Primar y Bleeding Rectal documented in this encounter Care Teams Electronic Video Games Servicer Relationship Specialty Start Date End Date Qasim Meza P.A.-C. PCP - General 01/22/17 08/24/18 [address] [place] [address] documented as of this encounter
--- OUTSIDE RECORDS SUMMARY | 2022-04-10 14:59 | XMS_ITS | Encounter Summary ---
:1980 Author Organization [facility] Address [address] [place] [address] Care Team Providers Name Role Phone Qasim Meza P.A.-C. Primary Care Provider [phone] Reason for Referral Outpatient (Routine) - Closed Specialty Diagnoses / Procedures Referred By Contact Refer red To Contact Diagnoses Pain Shoulder Left Lito James D.O. [facility] Region Procedures PMR Peripheral injection/USGI (Procedure Only) [address] [place] [address] Referral ID Status Reason Start Date Expiration Date Visits Requ ested Visits Authorized [id number] Closed 06/28/2018 06/28/2019 1 0 MAIL EDITOR Reason for Visit Reason Comments Shoulder Pain Outpatient (Routine) - Closed Specialty Diagnoses / Referred By Contact Referred To Contact Procedures Physical Medicine and Diagnoses Impingement Syndrome Shoulder Left Jesus Deleon M.D. [facility] [address] [address] Referral ID Status Reason Start Date Expiration Date Visits Requ ested Visits Authorized [id number] Closed 06/21/2018 06/21/2019 1 1 Encounter Details Date Type Department Care Team Description 06/28/2018 Comprehensive Visit Department of Lito James Pain S [facility] Left Physical Medicine [place] [address] [place], [place] [phone] Social History Tobacco Use Types Packs/Day Years [...] or relatives? How often do you attend voodoo or Never 2021 samaritan services? Do you belong to any clubs or Yes 09/02/2021 organizations such as voodoo groups, unions, fraternal or athletic groups, or [...] at Date Recorded Female 09/01/2021 7:35 PM FAN MAIL EDITOR documented as of this encounter Last Filed Vital Signs Vital Sign Reading Time Taken Comments Blood Pressure - - Pulse - - Temperature - - Respiratory Rate - - Oxygen Saturation - - Inhaled Oxygen Concentration - - Weight 92 kg (202 lb 11.8 oz) 06/28/2018 11:15 AM FAN MAIL EDITOR Height - - Body Mass Index 33.78 04/27/2018 1:54 PM CDT documented in this encounter Patient Instructions Patient Lito Wilson D.O. - 06/28/2018 11:30 AM CST MAIL EDITOR documented in this encounter Procedure Notes Lito James D.O. - 06/28/2018 11:30 AM CSTAssociated Order(s): PMR PERIPHERAL INJECTION/USGI (PROCEDURE ONLY) Post-Procedure Diagnose(s): Pain Shoulder Left Peripheral injection/aspiration/USGI (Procedure Only) Date/Time: 06/28/2018 12:25 PM Performed by: LITO JAMES Authorized by: LITO JAMES Tool Room Gear Machine Operator utilized: freelance interpreter/translator not needed Risks discussed with: parent Procedural risks discussed, including (but not limited to) the following: bleeding, infection and tendon damage Consent obtained: verbal and written, given by: patient Procedure purpose: therapeutic Indications: Pain relief Skin preparation: chlorhexidine Anesthesia method: pre-procedure local infiltration Pre-procedure local infiltration: lidocaine 1% plain Procedure location: shoulder - Shoulder site: L biceps sheath Site prep: patient was prepped and draped in usual sterile fashion Patient position: supine Procedure performed: injection only Needle gauge: 25 G, length: 2 in Image guidance: Ultrasound The use of direct ultrasound visualization of the needle was required (rather than a non-guided injection) to ensure accurate injection delivery and to maximize clinical benefit beyond that obtained with a non-guided injection. Additionally, there can be diagnostic specificity when evaluating effectiveness of the injection, and for safety purposes to minimize risk of bleeding or injury to surrounding structures. Additional procedure details or diagnostic findings may be noted under Other proceduredetail in this note. Images have been archived in [employer]: click the 'Dept Filter' button in [employer],then the 'Clear (Show All)' button, then OK. Probe: linear high-frequency Pre-procedure image guidance used to localize target and identify at risk structures, and plan approach and site was marked using indelible marker. Needle approach: lateral to medial Ultrasound visualization: in-plane The following medications were administered at the target site(s): Local anesthetic: 1 mL lidocaine 10 mg/mL (1 %) Corticosteroid: 40 mg methylPREDNISolone acetate 40 mg/mL Procedure completed successfully: yes Complications: no apparent complications Post-procedure instructions: avoid strenuous activity for 5 days and post- procedure activity instructions provided Pain was noted be 6/10 pre-procedure and 4/10 post-procedure. Lito James DO, CAQSM Nursing Techn Bowling Alley Manager Physical Medicine & Rehabilitation MAIL EDITOR documented in this encounter Plan of Treatment Not on filedocumented as of this encounter Procedures Procedure Name Priority Date/Time Associated Diagnosis Comme nts WI US GUIDE PLC NDL Routine 06/28/2018 11:30 AM Pain Shoulder Left Results for this FAN MAIL EDITOR procedure are i n the results section. WI INJ SNGL Routine 06/28/2018 11:30 AM Pain Shoulder Left Re sults for this TNDN/SHTH/LGMNT FAN MAIL EDITOR procedure ar e in the results section. documented in this encounter Results WI INJ SNGL TNDN/SHTH/LGMNT, WI US GUIDE PLC NDL (06/28/2018 11:30 AM FAN MAIL EDITOR) Narrative MMODAL - 06/28/2018 11:30 AM FAN MAIL EDITOR Lito James D.O. ? 06/28/2018 12:32 PM Peripheral injection/aspiration/USGI (Pr ocedure Only) Date/Time: 06/28/2018 12:25 PM Performed by: LITO JAMES Authorized by: LITO JAMES Tool Room Gear Machine Operator utilized: freelance interpreter/translator not ne eded ?? Risks discussed with: parent Procedural risks discussed, including (b ut not limited to) the following: bleeding, infection and tendon damage Consent obtained: verbal and written, gi tru by: patient Procedure purpose: therapeutic Indications: Pain relief Skin preparation: chlorhexidine Anesthesia method: pre-procedure local i nfiltration ??Pre-procedure local infiltration: lidocaine 1% plain Procedure location: shoulder - Shoulder site: L biceps sheath Site prep: patient was prepped and drape d in usual sterile fashion ?? Patient position: supine Procedure performed: injection only Needle gauge: 25 G, length: 2 in Image guidance: Ultrasound ??The use of direct ultrasound visualiz ation of the needle was required (rather than a non-guided injection) to ensure accurate injection delivery and to maximize clinical benefit beyond that obtained with a non-guided injection. ??Additionally, there can be diagnostic specificity when evaluating effectiveness of the injectio n, and for safety purposes to minimize risk of bleeding or injury to s urrounding structures. Additional procedure details or diagnostic findings may be noted under Other procedure detail in this note. Images h ave been archived in [employer]: click the 'Dept Filter' button in [employer], then the 'Clear (Show All)' button, then OK. ??Probe: linear high-frequency ??Pre-procedure image guidance used to localize target and identify at risk structures, and plan approach and s ite was marked using indelible marker. ??Needle approach: lateral to medial ??Ultrasound visualization: in-plane The following medications were administe red at the target site(s): ??Local anesthetic: 1 mL lidocaine 10 m g/mL (1 %) ??Corticosteroid: 40 mg methylPREDNISol one acetate 40 mg/mL Procedure completed successfully: yes Complications: no apparent complications ?Post-procedure instructions: avoid st renuous activity for 5 days and post-procedure activity instructions pro vided Lito James D.O. PROCEDURE/MINOR SURGICAL ORD ERABLES Performing Organization Address City/State/ZIP Code Phon e Number MMODAL MMODAL NA documented in this encounter Visit Diagnoses Diagnosis Pain Shoulder Left documented in this encounter Administered Medications Inactive Administered Medications - up to 3 most recent administrations Medication Order MAR Action Action Date Dose Rate Site lidocaine 10 mg/mL (1 %) injection Given 06/28/2018 12:25 PM FAN MAIL EDITOR 1 mL 1 mL (XYLOCAINE) 1 mL, infiltration, One-Time, Starting on Thu06/28/18 at 1225, For 1 dose methylPREDNISolone acetate injection 40 mg Given 06/28/2018 12:2 5 PM FAN MAIL EDITOR 40 mg (DEPO-Medrol) 40 mg, intra-articular, One-Time, Starting on Thu06/28/18 at 1225, For 1 dose documented in this encounter Care Teams Newspaper Photo Editor Relationship Specialty Start Date End Date Qasim Meza P.A.-C. PCP - General 01/22/17 08/24/18 [address] [place] [address] documented as of this encounter
--- OUTSIDE RECORDS SUMMARY | 2022-04-10 14:59 | XMS_ITS | Encounter Summary ---
:1980 Author Organization [facility] Address [address] [place] [address] Care Team Providers Name Role Phone Qasim Meza P.A.-C. Primary Care Provider [phone] Encounter Details Date Type Department Care Team Description 07/09/2018 Clinical Communication Department of Qasim Gonzalez, Medicine, [place] [facility], in [address] [address] [place], [place] [phone] (Work) [phone] Social History Tobacco Use Types Packs/Day Years [...] do you attend bahai or Never 2021 jehovah's witness services? 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 PCP - General 01/22/17 08/24/[address] [place] [phone] documented as of this encounter
--- OUTSIDE RECORDS SUMMARY | 2022-04-10 14:59 | XMS_ITS | Encounter Summary ---
:1980 Author Organization [facility] Address [address] [place] [address] Care Team Providers Name Role Phone Bonnie Franz M.D. Primary Care Provider [phone] Encounter Details Date Type Department Care Team Description 09/04/2018 Clinical Communication Department of Family [place] [facility], Bonnie Lauren, [facility], in [place] [id number] [address] [place] [phone] Social History Tobacco Use Types Packs/Day Years [...] SPA MANAGER documented as of this encounter Miscellaneous Notes Telephone Encounter - Bonnie Franz M.D. - 09/06/2018 5:47 PM WELLNESS SPA MANAGER Done NESS SPA MANAGER Telephone Encounter - Cyndi Zaidi, L.P.N. - 09/06/2018 5:08 PM WELLNESS SPA MANAGER Gricelda had her 300mg to take 2 tid on Aug 28 refilled but she has been taking 3 instead of 2 because she is suppose to take 900... So if you could fill the extra 300 tab to take tid and then make a new script in Oct 26 for the 1 900mg tab tid please.... NESS SPA MANAGER Telephone Encounter - Leonila aLndry - 09/06/2018 4:45 PM CST Patient, called back unable to reach nurse. Please call her back at [phone] NESS SPA MANAGER Telephone Encounter - Cyndi Zaidi, L.P.N. - 09/06/2018 3:39 PM WELLNESS SPA MANAGER Left msg to return my call NESS SPA MANAGER Telephone Encounter - Bonnie Franz M.D. - 09/06/2018 2:43 PM WELLNESS SPA MANAGER I see the dose was raised in November. Would she like me to send a prescription for 1 3 times daily to make up the difference or a whole new prescription that will mean we destroyed the old 1? NESS SPA MANAGER Telephone Encounter - Riddhi Bravo L.P.NRafal - 09/06/2018 1:39 PM CST [facility] pharmacy was called, they have Gabapentin 300 mg 2 caps TID - last filled on the no other dose of this medication. NESS SPA MANAGER Telephone Encounter - Bonnie Franz M.D. - 09/04/2018 4:16 PM WELLNESS SPA MANAGER Can you please confirm this with pharmacy? All I see in the chart is 600 mg t.i.d.. NESS SPA MANAGER documented in this encounter Plan of Treatment Not on filedocumented as of this encounter Visit Diagnoses Not on filedocumented in this encounter Care Teams Electroslag Welding Machine Operator Relationship Specialty Start Date End Date Bonnie Franz M.D. PCP - General Family Medicine 08/25/18 01/08/20 [address] [place] [address] documented as of this encounter
--- OUTSIDE RECORDS SUMMARY | 2022-04-10 14:59 | XMS_ITS | Encounter Summary ---
:1980 Author Organization [facility] Address [address] [place] [address] Care Team Providers Name Role Phone Qasim Meza P.A.-C. Primary Care Provider [phone] Reason for Visit Reason Comments Cough X3 days Appointment Request (Routine) - Closed Specialty Diagnoses / Procedures Referred By Contact Refer red To Contact Family Medicine Referral ID Status Reason Start Date Expiration Date Visits Requ ested Visits Authorized [id number] Closed 05/17/2018 05/17/2019 1 Encounter Details Date Type Department Care Team Description 05/17/2018 Office Visit Department of Family Yuli Sin usitis (Primary Dx) Medicine, Bonnie Lauren, [place], in [place] [address] [phone] Social History Tobacco Use Types Packs/Day Years [...] or relatives? How often do you attend buddhism or Never 2021 synagogue services? Do you belong to any clubs or Yes 09/02/2021 organizations such as buddhism groups, unions, fraternal or athletic groups, or [...] or slept in a snf (including now)? Sex Assigned at Date Recorded Female 09/01/2021 7:35 PM LAB INTERN documented as of this encounter Last Filed Vital Signs Vital Sign Reading Time Taken Comments Blood Pressure 118/78 05/17/2018 4:44 PM CDT Pulse 100 05/17/2018 4:44 PM CDT Temperature 36.2 ??C (97.2 ??F) 05/17/2018 4:44 PM CDT Respiratory Rate - - Oxygen Saturation - - Inhaled Oxygen Concentration - - Weight 88 kg (194 lb 0.1 oz) 05/17/2018 4:44 PM CDT Height - - Body Mass Index 32.32 04/27/2018 1:54 PM CDT documented in this encounter Progress Notes Bonnie Franz M.D. - 05/17/2018 5:00 PM CDT CHIEF COMPLAINT/ REASON FOR VISIT Flu like symptoms. HISTORY OF PRESENT ILLNESS Gricelda Roberts is a 37 y.o. female who presents to the clinic today for flu like symptoms. When she came in last, she was dealing with hemorrhoids. We recommended using Witch Khushi pads, warm soaks,and Anusol and she states that this has not been helpful and they have not gotten better. She has a cough, severe sore throat, and a headache for the last 3 days. She has not checked if she has had a fever. No ill contacts. The patient denies any additional questions or concerns at this time. SYSTEMS REVIEW Please see HPI for pertinent positives, otherwise rest of ROS negative. MEDICATIONS Current Outpatient Prescriptions Medication Sig Dispense Refill ??? busPIRone (for_BUSPAR) 30 mg tablet Take 1 tablet (30 mg total) by mouth 2 (two) times a day. 180 tablet 3 ??? calcium carbonate-vitamin D3 500 mg(1,250mg) -400 unit tablet Take 1 tablet by mouth. ??? cetirizine (ZyrTEC) 10 mg tablet Take 1 tablet by mouth daily. ??? cholecalciferol (VITAMIN D3) 2,000 Unit tablet Take 2,000 Units by mouth daily. ??? citalopram (CeleXA) 40 mg tablet Take 1 tablet by mouth daily. ??? cyanocobalamin (VITAMIN B12) 1,000 mcg/mL injection INJECT 1000MCG INTERMUSCULAR ONCE MONTH 3 mL3 ??? escitalopram (LEXAPRO) 20 mg tablet Take 1 tablet (20 mg total) by mouth daily. 90 tablet 3 ??? fluticasone (for_FLONASE) 50 mcg/actuation nasal spray Administer 2 sprays into each nostril daily. 16 g 11 ??? gabapentin (for_NEURONTIN) 300 mg capsule 2 tabs po tid 180 capsule 2 ??? hydrocortisone (ANUSOL-HC) 2.5 % rectal cream Insert 1 application into the rectum 4 (four) times a day as needed for hemorrhoids (rectal discomfort). Apply to affected areas 30 g 2 ??? levETIRAcetam (KEPPRA) 500 mg tablet Take 1 tablet (500 mg total) by mouth 2 (two) times a day. 180 tablet 3 ??? levothyroxine (SYNTHROID, LEVOTHROID) 75 mcg tablet TAKE ONE TABLET BY MOUTH ONCE DAILY 90 tablet 0 ??? lidocaine (LIDODERM) 5 % patch Apply 1 patch topically daily. ??? omega-3 fatty acids-fish oil 300-1,000 mg capsule Take 1 g by mouth daily. 1200 mg ??? ondansetron (ZOFRAN) 8 mg tablet Take 1 tablet by mouth 3 (three) times a day. ??? vitamin-iron fumarate-FA ( MULTIVITAMINS) 28 mg iron- 800 mcg per tablet Take 1capsule by mouth 2 (two) times a day. ??? STRATTERA 80 mg capsule Take 1 capsule (80 mg total) by mouth daily. Diagnosis code attention deficit disorder. F 90.9 90 capsule 3 ??? SUMAtriptan (IMITREX) 100 mg tablet ??? syringe, disposable, 1 mL syringe 1 each every 30 (thirty) days. 25 Syringe 1 ??? traZODone (for_DESYREL) 100 mg tablet Take 1 tablet (100 mg total) by mouth daily. 90 tablet 3 ??? ZOLMitriptan (ZOMIG) 5 mg tablet Take by mouth. ??? cyclobenzaprine (for_FLEXERIL) 10 mg tablet Take 1 tablet (10 mg total) by mouth 3 (three) timesa day as needed for muscle spasms. 30 tablet 0 ??? promethazine (PHENERGAN) 25 mg tablet Take 25 mg by mouth. ??? SUMAtriptan (IMITREX) 100 mg tablet Take 1 tablet (100 mg total) by mouth once for 1 dose. 9 tablet 3 No current facility-administered medications for this visit. ALLERGIES Allergies Allergen Reactions ??? Cephalexin Other (see comments) PAST MEDICAL / SURGICAL HISTORY No past medical history on file. Past Surgical History: Procedure Laterality Date ??? APPENDECTOMY 11/13/2003 Appendectomy ??? SECTION 2006 DELIVERY ONLY... ??? SECTION 11/13/2007 DELIVERY ONLY... ??? CHOLECYSTECTOMY 11/13/2003 Cholecystectomy ??? ESOPHAGOGASTROSTOMY, ANTESTERNAL OR ANTETHORACIC 11/13/2011 Gastric bypass operation ??? HYSTERECTOMY 10/10/2010 Abdominal hysterectomy and right salpingo-oophorectomy ??? TONSILLECTOMY 11/13/2007 Tonsillectomy ??? TRANSECTION OF FALLOPIAN TUBE BY VAGINAL APPROACH 11/13/2007 DIVISION OF FALLOPIAN TUBE PREVENTIVE SERVICES Social History Substance Use Topics ??? Smoking status: Never Smoker ??? Smokeless tobacco: Never Used ??? Alcohol use No VITAL SIGNS Vitals: 05/17/18 1644 BP: 118/78 Patient Position: Sitting Pulse: 100 Temp: 36.2 ??C Weight: 88 kg Body mass index is 32.32 kg/m??. PHYSICAL EXAMINATION General: Patient is alert and oriented times three, in no acute distress, good hygiene and is dressed appropriately. HEENT: Tympanic membranes are normal bilaterally. Oropharynx is without erythema or exudate. Nasal mucosa is without injection. Neck is without adenopathy. Frontal and maxillary sinus tenderness. Lymph nodes: Not palpably enlarged and no nodules are palpated. Heart: Regular rate and rhythm without murmur. Lungs: Clear to auscultation. Extremities: Within normal limits. Skin: No rashes or suspicious lesions noted on exposed skin. ASSESSMENT / PLAN #1 Sinusitis PLAN: Will treat with a Z-pack. Continue with symptomatic measures. Follow up The patient will contact the clinic with any new or worsening symptoms. This document serves as a record of services personally performed by Bonnie Perry MD. It was created on their behalf by Cesilia Lucia, a trained director medical safety. The creation of this record is based on the scribe's personal observations and the provider's statements to them. This document has been ch ecked and approved by the attending provider. documented in this encounter Plan of Treatment Not on filedocumented as of this encounter Visit Diagnoses Diagnosis Sinusitis - Primary documented in this encounter Care Teams Warehouse Order Puller Relationship Specialty Start Date End Date Qasim Meza P.A.-C. PCP - General 01/22/17 08/24/18 [address] [place] [address] documented as of this encounter
--- OUTSIDE RECORDS SUMMARY | 2022-04-10 14:59 | XMS_ITS | Encounter Summary ---
:1980 Author Organization [facility] Address [address] [place] [address] Care Team Providers Name Role Phone Qasim Meza P.A.-C. Primary Care Provider [phone] Reason for Visit Reason Comments Med Refill Encounter Details Date Type Department Care Team Description 06/22/2018 Refill Department of Family Medicine Qasim Davidson P.A.-C. Med Refill in [place], [place] [address] [facility] [address] [place] [address] [place] [address] [phone] Social History Tobacco Use Types Packs/Day Years [...] do you attend amish or Never 2021 roman catholic services? 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 PCP - General 01/22/17 08/24/[address] [place] [phone] documented as of this encounter
--- OUTSIDE RECORDS SUMMARY | 2022-04-10 14:59 | XMS_ITS | Encounter Summary ---
:1980 Author Organization [facility] Address [address] [place] [address] Care Team Providers Name Role Phone Qasim Meza P.A.-C. Primary Care Provider [phone] Encounter Details Date Type Department Care Team Description 07/09/2018 Orders Only Department of Orthopedic Leonora Gil, Surgery [facility] [address] [place] [address] [place] [address] [facility] [phone] Social History Tobacco Use Types Packs/Day Years [...] do you attend yazdanism or Never 2021 congregational services? 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 PCP - General 01/22/17 08/24/18 [address] [place] [address] documented as of this encounter
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
--- OUTSIDE RECORDS SUMMARY | 2022-04-10 14:59 | XMS_ITS | Encounter Summary ---
:1980 Author Organization [facility] Address [address] [place] [address] Care Team Providers Name Role Phone Qasim Meza P.A.-C. Primary Care Provider [phone] Reason for Visit Reason Comments Med Refill Encounter Details Date Type Department Care Team Description 06/08/2018 Refill Department of Sports Medicine Kenrick Mendoza M.D. Med Refill in [facility] [address], [address] [place], [place] [address] [place], [place] [phone] (Wo rk) Social History Tobacco Use Types [...] do you attend hindu or Never 2021 pentecostal services? 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 PCP - General 01/22/17 08/24/[address] [place] [phone] documented as of this encounter
--- OUTSIDE RECORDS SUMMARY | 2022-04-10 14:59 | XMS_ITS | Encounter Summary ---
:1980 Author Organization [facility] Address [address] [place] [address] Care Team Providers Name Role Phone Qasim Meza P.A.-C. Primary Care Provider [phone] Reason for Visit Reason Onset Date Comments injection pain 07/09/2018 Medication for pain 07/09/2018 Encounter Details Date Type Department Care Team Description 07/09/2018 Clinical Department of Lito James, jolynn webster n; Communication Physical Medicine and D.O. Medication for Rehabilitation in [address] [place] [address] [address] [place] [phone] [phone] Social History Tobacco Use Types Packs/Day Years [...] do you attend restorationism or Never 2021 restorationism services? 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/2021 7:35 PM FIRE LOOKOUT documented as of this encounter Miscellaneous Notes Telephone Encounter - Susan Lawler L.P.N. - 07/09/2018 4:37 PM CST Called pt and notified her that written rx for [place] was ready for pickup at [facility] info desk, pt states that she will try to get her before 5pm to pick this up herself LOOKOUT Telephone Encounter - Steffany Gil P.A.-C. - 07/09/2018 4:19 PM FIRE LOOKOUT [place] rx printed LOOKOUT Telephone Encounter - Susan Lawler L.P.N. - 07/09/2018 4:11 PM CST Called pt, and informed her of Lisandra's concerns, pt states that she has taken Vicodin and Flexeril before with no problems with her Keppra LOOKOUT Telephone Encounter - Steffany Gil P.A.-C. - 07/09/2018 4:06 PM FIRE LOOKOUT Is the pain medication she has taken in the past him sorry that has not interacted with her Keppra medication? LOOKOUT Telephone Encounter - Susan Lawler L.P.N. - 07/09/2018 3:58 PM CST Called pt, she had a US guided left bicep sheath injection done on 06/28/[address] James in [facility], pt calling in today c/o pain in left shoulder rating 10/10. Pt requesting stronger pain medication or muscle relaxer from Dr Deleon, informed that Dr Deleon was out of the office today, pt requesting that another provider address her request today. Pt did call Dr James's office and he recommended that pt make a followup appt with Dr Deleon, which shescheduled for Thursday07-12-18, please review and advise LOOKOUT Telephone Encounter - Rosalba Gray - 07/09/2018 3:43 PM CST Reason for Communication: Medication for pain Current Can Nursing/Provider leave a detailed message: Yes Action Needed: Amador () calling in for patient and wondering if Dr. Deleon is able to give patient some medication for her pain that she is having. [facility] [place]. Please adviseand call back. Name of Medication (if relevant): n/a LOOKOUT Telephone Encounter - Vero Metzger L.P.N. - 07/09/2018 3:20 PM FIRE LOOKOUT Information and recommendations given to patient. Patient will schedule a follow up visit with Dr. Deleon. LOOKOUT Telephone Encounter - Jacklyn Costa - 07/09/2018 2:54 PM CST Patients called back. Please call [phone] LOOKOUT Telephone Encounter - Vreo Metzger L.P.N. - 07/09/2018 1:57 PM FIRE LOOKOUT Message left for patient to return my call. LOOKOUT Telephone Encounter - Lito James D.O. - 07/09/2018 1:47 PM CST Please call the patient to inform that would recommend a follow-of clinical visit with Dr. Deleon from Orthopedics who referred the patient to me for completion of the injection completed on 06/28/2018 to determine further medical care/treatment moving forward. Happy to see back in clinic if Dr. Deleon would like. Lito James DO, CAM Footwear Sales Associate Religious Leader Physical Medicine & Rehabilitation LOOKOUT Telephone Encounter - Cosme De La Cruz - 07/09/2018 1:08 PM CST Reason for Communication: Pt is having worse pain than before her injection last week. Wondering about next step or something else she should be doing Current Can Nursing/Provider leave a detailed message: yes Action Needed: please call back Name of Medication (if relevant): LOOKOUT documented in this encounter Plan of Treatment Not on filedocumented as of this encounter Visit Diagnoses Not on filedocumented in this encounter Care Teams Vamp Throater Relationship Specialty Start Date End Date Qasim Meza P.A.-C. PCP - General 01/22/17 08/24/[address] [place] [phone] documented as of this encounter
--- OUTSIDE RECORDS SUMMARY | 2022-04-10 14:59 | XMS_ITS | Encounter Summary ---
:1980 Author Organization [facility] Address [address] [place] [address] Care Team Providers Name Role Phone Bonnie Franz M.D. Primary Care Provider [phone] Encounter Details Date Type Department Care Team Description 07/30/2018 Clinical Communication [facility], in [address] [address] [place], [place] [phone] (Work) [phone] Social History Tobacco Use Types Packs/Day Years [...] do you attend gnosticism or Never 2021 hindu services? 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 - 08/02/2018 8:51 AM CST It looks like Qasim took care of this, and she needs to follow through with her spine appointments. NEYMAN PLUMBER Telephone Encounter - Maryam Shelton L.P.N. - 07/30/2018 5:10 PM JOURNEYMAN PLUMBER Patient notified of prescription sent to david avila NEYMAN PLUMBER Telephone Encounter - Qasim Meza, Maco.A.-C. - 07/30/2018 5:03 PM JOURNEYMAN PLUMBER I will give her a small supply of tramadol to get her through to her upcoming appointments NEYMAN PLUMBER Telephone Encounter - Susan Lawler L.PRafalN. - 07/30/2018 4:08 PM CST Spoke with pt's Amador, he states that pt has an appt with [facility] on 08/28/18 and has been taking ES Tylenol 3 tablets every 6 hours and continues to have shoulder pain and is requesting a stronger pain medication. Informed Amador that Dr Deleon is out of the office until 08/02/18 and that I spoke with Steffany Gil, and informed him of her recommendations. Amador would like this message sent to Dr Deleon to address on 08/02/18 NEYMAN PLUMBER Telephone Encounter - Susan Lawler L.P.N. - 07/30/2018 4:00 PM CST Left message for patient to call back, discussed case with Steffany Gil, she recommends that pt discuss pain management medications with PCP or spine surgeon in [place] as recommended by Dr Deleon. NEYMAN PLUMBER Telephone Encounter - Jane Khoury - 07/30/2018 2:32 PM CST Reason for Communication: pt called has been seeing dr. deleon for a shoulder injury and is requesting pain med. Current Can Nursing/Provider leave a detailed message: yes Did the patient refuse triage through Nurse line? (for symptom based concerns) Action Needed: please call back Name of Medication (if relevant): NEYMAN PLUMBER documented in this encounter Plan of Treatment Not on filedocumented as of this encounter Visit Diagnoses Not on filedocumented in this encounter Care Teams Janitorial Cleaner Relationship Specialty Start Date End Date Bonnie Franz M.D. PCP - General Family Medicine 08/25/18 01/08/[address] [phone] documented as of this encounter
--- OUTSIDE RECORDS SUMMARY | 2022-04-10 14:59 | XMS_ITS | Encounter Summary ---
:1980 Author Organization [facility] Address [address] [place] [address] Care Team Providers Name Role Phone Bonnie Franz M.D. Primary Care Provider [phone] Reason for Visit Reason Onset Date Comments returning Nurse call 08/23/2018 Encounter Details Date Type Department Care Team Description 08/23/2018 Clinical Communication Department of mike Meza Nurse Family MedicineQasim, call [facility], PRafalAMansi in [address] [address] [place], [place] [phone] (Work) [phone] Social History Tobacco Use Types Packs/Day Years [...] do you attend latter-day or Never 2021 roman catholic services? 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 - 08/25/2018 8:18 AM ORNAMENTAL IRONWORKING SUPERVISOR Notified that provider was changed as she requested and to call me back if she had any other concerns or questions MENTAL IRONWORKING SUPERVISOR Telephone Encounter - Goldie Aguillon - 08/24/2018 3:32 PM CST Patient calling back [phone] Amador SANDERS on file MENTAL IRONWORKING SUPERVISOR Telephone Encounter - Lore Lemus - 08/23/2018 12:58 PM CST Reason for Communication: Return call Current Phone Number: [phone] Can Nursing/Provider leave a detailed message: Yes Did the patient refuse triage through Nurse line? (for symptom based concerns)N/A Action Needed: Patient returning call to the nurse Name of Medication (if relevant): MENTAL IRONWORKING SUPERVISOR documented in this encounter Plan of Treatment Not on filedocumented as of this encounter Visit Diagnoses Not on filedocumented in this encounter Care Teams Pipe Fitter Supervisor Maintenance Relationship Specialty Start Date End Date Bonnie Franz M.D. PCP - General Family Medicine 08/25/18 01/08/[address] [place] [phone] documented as of this encounter
--- OUTSIDE RECORDS SUMMARY | 2022-04-10 14:59 | XMS_ITS | Encounter Summary ---
:1980 Author Organization [facility] Address [address] [place] [address] Care Team Providers Name Role Phone Qasim Meza P.A.-C. Primary Care Provider [phone] Reason for Visit Reason Comments Med Refill Encounter Details Date Type Department Care Team Description 07/13/2018 Refill Department of Family Medicine, Qasim Ceja P.A.-C. Med Refill [facility], in [address] [place] [phone] [place] [address] [place] [address] [phone] Social History Tobacco Use Types Packs/Day Years [...] do you attend congregational or Never 2021 scientology services? 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 - 07/14/2018 9:25 AM CST Left message for patient to return our call PROGRAMMATIC TV documented in this encounter Plan of Treatment Not on filedocumented as of this encounter Visit Diagnoses Not on filedocumented in this encounter Care Teams Certified Coatings Inspector Relationship Specialty Start Date End Date Qasim Meza P.A.-C. PCP - General 01/22/17 08/24/18 [address] [place] [phone] documented as of this encounter
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
--- OUTSIDE RECORDS SUMMARY | 2022-04-10 14:59 | XMS_ITS | Encounter Summary ---
:1980 Author Organization [facility] Address [address] [place] [address] Care Team Providers Name Role Phone Qasim Meza P.A.-C. Primary Care Provider [phone] Reason for Visit Reason Comments Recurrent Skin Infections R upper leg right under butt ock Appointment Request (Routine) - Closed Specialty Diagnoses / Procedures Referred By Contact Refer red To Contact Family Medicine Referral ID Status Reason Start Date Expiration Date Visits Requ ested Visits Authorized [id number] Closed 06/15/2018 06/15/2019 1 Encounter Details Date Type Department Care Team Description 06/28/2018 Office Visit Department of Family Yuli Ecc hymosis (Primary Dx); Medicine, [facility], in [place] [address] [phone] [phone] Social History Tobacco Use Types Packs/Day Years [...] do you attend temple or Never 2021 yazidism services? 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 - 06/28/2018 1:30 PM CST CHIEF COMPLAINT/ REASON FOR VISIT Boil on right upper leg. HISTORY OF PRESENT ILLNESS Gricelda Roberts is a 37 y.o. female who presents to the clinic today for boil on right upper leg. She has a boil type lesion on the back of her right upper leg. Her has popped this and the last time that this happened, a bunch of blood came out of it and afterwards some pus came out. She hashad some clots come out of it and when it is inflamed, she struggled to go to the bathroom. After popping it, it will seep for a few days. It has been there for 1-1/2 months. She has also noticed that she bruises very easily. She will run into something lightly and bruise. She has bruises all over her lower extremities. She has noticed this since her gastric bypass in 2010.She does take B12 injections and she bruises from each injection and this will sometimes last for 3 weeks. She is status post hysterectomy, but prior to this, she had significant menorrhagia. She bruises very easily as well. The patient denies any additional questions or concerns at this time. SYSTEMS REVIEW Please see HPI for pertinent positives, otherwise rest of ROS negative. MEDICATIONS Current Outpatient Prescriptions Medication Sig Dispense Refill ??? atomoxetine (STRATTERA) 80 mg capsule TAKE ONE CAPSULE BY MOUTH ONCE DAILY 90 capsule [...] mL3 ??? escitalopram (LEXAPRO) 20 mg tablet TAKE ONE TABLET BY MOUTH ONCE DAILY 90 tablet 0 ??? fluticasone (for_FLONASE) 50 mcg/actuation nasal spray Administer 2 sprays into each nostril daily. 16 g 11 ??? gabapentin (for_NEURONTIN) 300 mg capsule 2 tabs po tid 180 capsule 2 ??? levETIRAcetam (KEPPRA) 500 mg tablet [...] 24 hr period 90 patch 3 ??? omega-3 fatty acids-fish oil 300-1,000 mg capsule Take 1 g by mouth daily. 1200 mg ??? ondansetron (ZOFRAN) 8 mg tablet Take 1 tablet by mouth 3 (three) times a day. ??? vitamin-iron fumarate-FA ( MULTIVITAMINS) 28 mg iron- 800 mcg per tablet Take 1capsule by mouth 2 (two) times a day. ??? promethazine (PHENERGAN) 25 mg tablet Take 25 mg by mouth. ??? SUMAtriptan (IMITREX) 100 mg tablet ??? [...] for muscle spasms. 30 tablet 0 ??? sulfamethoxazole-trimethoprim (BACTRIM DS) 800-160 mg per tablet Take 1 tablet by mouth 2 (two) times a day for 7 days. 14 tablet 0 ??? SUMAtriptan (IMITREX) 100 mg tablet Take 1 tablet (100 mg total) by mouth once for 1 dose. 9 tablet 3 No current facility-administered medications for this visit. ALLERGIES Allergies Allergen Reactions ??? Cephalexin Other (see comments) PAST MEDICAL / SURGICAL HISTORY Past Medical History: Diagnosis Date ??? Attention Deficit Disorder Inattentive ??? Dependence Drug Opioid (HCC) ??? Depression Anxiety ??? Gastric Bypass Status Post ??? Hypothyroidism [...] FALLOPIAN TUBE BY VAGINAL APPROACH 11/13/2007 PREVENTIVE SERVICES Social History Substance Use Topics ??? Smoking status: Never Smoker ??? Smokeless tobacco: Never Used ??? Alcohol use No VITAL SIGNS Vitals: 06/28/18 1246 BP: 112/78 Patient Position: Sitting Pulse: 84 Temp: 36 ??C Weight: 91 kg Body mass index is 33.42 kg/m??. PHYSICAL EXAMINATION General: Patient is alert and oriented times three, in no acute distress, good hygiene and is dressed appropriately. Skin: On the inferior right buttock, there is a violaceous area, 1 x 3 cm, there is no palpable swelling or mass. DIAGNOSTICS CBC with diff and PT with INR are ordered today with results pending. ASSESSMENT / PLAN #1 Ecchymosis PLAN: CBC and PT with INR are ordered today and I will inform her of results. Further evaluation pending test results. #2 Furuncle Buttock PLAN: This is resolving. A prescription for Bactrim is provided for her to keep on hand if this returns. If she starts taking the prescription she will let me know and we will determine if she needs anappointment. Follow up The patient will contact the clinic with any new or worsening symptoms. ADMINISTRATIVE BILLING 20 minutes of this 25 minute visit was spent in face to face counseling and coordination of care. This document serves as a record of services personally performed by Bonnie Perry MD. It was created on their behalf by Cesilia Lucia, a trained medical records supervisor. The creation of this record is based on the scribe's personal observations and the provider's statements to them. This document has been ch ecked and approved by the attending provider. RNATIVE ENERGY TECHNICIAN documented in this encounter Plan of Treatment Not on filedocumented as of this encounter Procedures Procedure Name Priority Date/Time Associated Comments Diagnosis PROTHROMBIN TIME Routine 06/28/2018 1:29 PM Ecchymosis Resul ts for this (PT), P ALTERNATIVE ENERGY TECHNICIAN procedure are i n the results section. CBC WITH Routine 06/28/2018 1:29 PM Ecchymosis Results f or this DIFFERENTIAL, B ALTERNATIVE ENERGY TECHNICIAN procedure ar e in the results section. documented in this encounter Results PT (Prothrombin Time) with INR (06/28/2018 1:29 PM ALTERNATIVE ENERGY TECHNICIAN) athologist Signature Prothrombin 9.2 8.8 - 11.9 06/28/2018 [facility] Time, P sec 3:58 PM [email or web address] INR 1.0 0.9 - 1.2 06/28/2018 [facility] 3:58 PM [email or web address] CENTERMusic Cave StudiosA LAB Comment: Standard intensity warfarin therapeutic range: 2.0 to 3.0 High intensity warfarin therapeutic rang e: 2.5 to 3.5 Specimen Anatomical Collection Method Collection Time Receive d Time (Source) Location / / Volume Laterality Blood (Blood, 06/28/2018 1:29 PM 06/28/20 18 3:25 Venous) ALTERNATIVE ENERGY TECHNICIAN PM ALTERNATIVE ENERGY TECHNICIAN Bonnie Franz M.D. LAB BLOOD ADD-ON Performing Organization Address City/State/ZIP Code Phon e Number [facility] [employer] [address] [place] [phone] LAB CBC with Differential, Blood (06/28/2018 1:29 PM ALTERNATIVE ENERGY TECHNICIAN) athologist Signature Hemoglobin 13.9 11.6 - 06/28/2018 [facility] 15.0 g/dL 2:04 PM [facility] Hematocrit 42.9 35.5 - 06/28/2018 [facility] 44.9 % 2:04 PM [facility] Erythrocytes 4.62 3.92 - 06/28/2018 [facility] 5.13 2:04 PM [facility] [employer] x10(12)/L [facility] [employer] LAB MCV 92.9 78.2 - 06/28/2018 [facility] 97.9 fL 2:04 PM [facility] RBC Distrib Width 12.6 12.2 - 06/28/2018 [facility] 16.1 % 2:04 PM [facility] Platelet Count 324 157 - 371 06/28/2018 [facility] x10(9)/L 2:04 PM [facility] Leukocytes 9.2 3.4 - 9.6 06/28/2018 [facility] x10(9)/L 2:04 PM ALTERNATIVE ENERGY TECHNICIAN [facility] Neutrophils 6.02 1.56 - 06/28/2018 [facility] 6.45 2:04 PM ALTERNATIVE ENERGY TECHNICIAN [facility]ALTH x10(9)/L [facility] [place] [facility] Lymphocytes 2.41 0.95 - 06/28/2018 [facility] 3.07 2:04 PM ALTERNATIVE ENERGY TECHNICIAN HEALTH x10(9)/L [facility] Monocytes 0.61 0.26 - 06/28/2018 [facility] 0.81 2:04 PM ALTERNATIVE ENERGY TECHNICIAN HEALTH x10(9)/L [facility] Eosinophils 0.08 0.03 - 06/28/2018 [facility] 0.48 2:04 PM ALTERNATIVE ENERGY TECHNICIAN HEALTH x10(9)/L [facility] [place] LAB Basophils 0.05 0.01 - 06/28/2018 [facility] 0.08 2:04 PM ALTERNATIVE ENERGY TECHNICIAN HEALTH x10(9)/L [facility] Specimen Anatomical Collection Method Collection Time Receive d Time (Source) Location / / Volume Laterality Blood (Blood, 06/28/2018 1:29 PM 06/28/20 18 1:30 Venous) ALTERNATIVE ENERGY TECHNICIAN PM ALTERNATIVE ENERGY TECHNICIAN Bonnie Franz M.D. LAB BLOOD ADD-ON Performing Organization Address City/State/ZIP Code Phon e Number [facility] [address] [place] [address] LAB documented in this encounter Visit Diagnoses Diagnosis Ecchymosis - Primary Furuncle Buttock documented in this encounter Care Teams Physician Assistant Certified Relationship Specialty Start Date End Date Qasim Meza P.A.-C. PCP - General 01/22/17 08/24/18 [address] [place] [phone] documented as of this encounter
--- OUTSIDE RECORDS SUMMARY | 2022-04-10 14:59 | XMS_ITS | Encounter Summary ---
:1980 Author Organization [facility] Address [address] [place] [address] Care Team Providers Name Role Phone Qasim Meza P.A.-C. Primary Care Provider [phone] Reason for Visit Reason Onset Date Comments followup injection 05/17/2018 Encounter Details Date Type Department Care Team Description 05/17/2018 Clinical Communication Department of Jesus Deleon fo llowup injection Orthopedic Surgery [facility] in [address] [place] [phone] [phone] Social History Tobacco Use Types Packs/Day Years [...] you attend jehovah's witness or Never 2021 faith services? 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 - 05/17/2018 2:32 PM CDT Called pt and informed her of Dr Deleon's recommendation, she verbalized understanding and agreement to plan, she will call back to make followup appt. Telephone Encounter - Jesus Deleon M.D. - 05/17/2018 2:24 PM CDT I'd like her to give this another couple of weeks. Sometimes it just takes longer to work. She should make an appointment to see me in 2-3 weeks. Telephone Encounter - Susan Lawler L.P.N. - 05/17/2018 2:14 PM CDT Procedure: left shoulder cortisone injection Date Performed: 05/10/18 Provider: Adrienne Pain Location : left shoulder Pain Score: 4/10 Overall Improvement: 0% Physical Therapy: Medications: Telephone Encounter - Chica Swartz - 05/17/2018 1:23 PM CDT Patient called back. Please call at: [phone] Telephone Encounter - Susan Lawler L.P.N. - 05/17/2018 12:58 PM CDT Left message for patient to call back Telephone Encounter - Keturah Rockwell - 05/17/2018 12:34 PM CDT Amador () returned call - Please call [phone] to reach Gricelda Telephone Encounter - Susan Lawler L.P.N. - 05/17/2018 8:57 AM CDT Left message for patient to call back for followup of left shoulder injection done on 05/10/[address] Deleon documented in this encounter Plan of Treatment Not on filedocumented as of this encounter Visit Diagnoses Not on filedocumented in this encounter Care Teams Welding Machine Operator Helper Gas Relationship Specialty Start Date End Date Qasim Meza P.A.-C. PCP - General 01/22/17 08/24/[address] [place] [phone] documented as of this encounter
--- OUTSIDE RECORDS SUMMARY | 2022-04-10 14:59 | XMS_ITS | Encounter Summary ---
:1980 Author Organization [facility] Address [address] [place] [address] Care Team Providers Name Role Phone Qasim Meza P.A.-C. Primary Care Provider [phone] Encounter Details Date Type Department Care Team Description 07/09/2018 Clinical Communication Department of [place] [facility], Medicine and D.[facility]. Rehabilitation in [address] [place] [address] [address] [place], [place], [place] [address] [facility] [address] [place], [place] [phone] (Work) [phone] Social History Tobacco Use Types Packs/Day Years [...] do you attend mandaeism or Never 2021 mandaen services? 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 James's nurse Name of Medication (if relevant): NT CHILDCARE PROVIDER documented in this encounter Plan of Treatment Not on filedocumented as of this encounter Visit Diagnoses Not on filedocumented in this encounter Care Teams Adjunct Physical Education Instructor Relationship Specialty Start Date End Date Qasim Meza P.A.-C. PCP - General 01/22/17 08/24/[address] [place] [phone] documented as of this encounter
--- OUTSIDE RECORDS SUMMARY | 2022-04-10 14:59 | XMS_ITS | Encounter Summary ---
:1980 Author Organization [facility] Address [address] [place] [address] Care Team Providers Name Role Phone Bonnie Franz M.D. Primary Care Provider [phone] Encounter Details Date Type Department Care Team Description 08/04/2018 Clinical Communication Department of [facility], in [address] [address] [place], [place] [phone] (Work) [phone] Social History Tobacco Use Types Packs/Day Years [...] do you attend rastafarian or Never 2021 protestant services? 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 - 08/04/2018 4:33 PM CST Provider contacted ED AL MEASUREMENTS TEACHER Telephone Encounter - Shyann Landry R.N. - 08/04/2018 3:58 PM CST Please see below - I know she had appt to see you today AL MEASUREMENTS TEACHER Telephone Encounter - Miryam Vega - 08/04/2018 3:49 PM CST Reason for Communication: ELISEO called and said that pt does not need to go to ED for shots she can dothem as an internal series of shots if they get orders. Current Phone Number: Can Nursing/Provider leave a detailed message: na Did the patient refuse triage through Nurse line? (for symptom based concerns)na Action Needed: please call ELISEO and and advise. Name of Medication (if relevant):na AL MEASUREMENTS TEACHER documented in this encounter Plan of Treatment Not on filedocumented as of this encounter Visit Diagnoses Not on filedocumented in this encounter Care Teams Patient Portal Representative Relationship Specialty Start Date End Date Bonnie Franz M.D. PCP - General Family Medicine 08/25/18 01/08/[address] [phone] documented as of this encounter
--- OUTSIDE RECORDS SUMMARY | 2022-04-10 14:59 | XMS_ITS | Encounter Summary ---
:[address] [facility] Address [address] [place] [address] Care Team Providers Name Role Phone Qasim Meza P.A.-C. Primary Care Provider [phone] Encounter Details Date Type Department Care Team Description 07/09/2018 Clinical Communication Department of [facility], Orthopedic Surgery in [place], [place] [address] [facility], [address] [phone] Social History Tobacco Use Types Packs/Day [...] or relatives? How often do you attend hinduism or Never 2021 taoism services? 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 PCP - General 01/22/17 08/24/[address] [place] [phone] documented as of this encounter
--- OUTSIDE RECORDS SUMMARY | 2022-04-10 14:59 | XMS_ITS | Encounter Summary ---
:1980 Author Organization [facility] Address [address] [place] [address] Care Team Providers Name Role Phone Qasim Meza P.A.-C. Primary Care Provider [phone] Reason for Visit Reason Comments Other Was bit by a cat. Was seen a t ER on 08/01/18. Currently on antibiotic. Need written order and then will take to [facility] . Appointment Request (Routine) - Closed Specialty Diagnoses / Procedures Referred By Contact Refer red To Contact Family Medicine Referral ID Status Reason Start Date Expiration Date Visits Requ ested Visits Authorized [id number] Closed 08/04/2018 08/04/2019 1 Encounter Details Date Type Department Care Team Description 08/04/2018 Office Visit Department of Family Alia John Bit e Cat Hand Open Medicine, [place] Christina STEWART Subsequent Left Clinic, in [place], [address] (Primary Dx) [address] [address] [place], [place] [phone] (Work) [phone] Social History Tobacco Use Types Packs/Day Years [...] do you attend rastafari or Never 2021 oriental orthodox services? 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 documented as of this encounter Last Filed Vital Signs Vital Sign Reading Time Taken Comments Blood Pressure 116/84 08/04/2018 2:59 PM HYDRAULIC BOOM OPERATOR Pulse 102 08/04/2018 2:59 PM HYDRAULIC BOOM OPERATOR Temperature 36.7 ??C (98.1 ??F) 08/04/2018 2:59 PM HYDRAULIC BOOM OPERATOR Respiratory Rate 16 08/04/2018 2:59 PM HYDRAULIC BOOM OPERATOR Oxygen Saturation - - Inhaled Oxygen Concentration - - Weight 91.5 kg (201 lb 11.5 oz) 08/04/2018 2:59 PM HYDRAULIC BOOM OPERATOR Height - - Body Mass Index 33.01 07/27/2018 3:41 PM HYDRAULIC BOOM OPERATOR documented in this encounter Progress Notes Alia John, PAT, C.N.P. - 08/04/2018 3:15 PM CST SUBJECTIVE CHIEF COMPLAINT: Chief Complaint Patient presents with ??? Other Was bit by a cat. Was seen at ER on 08/01/18. Currently on antibiotic. Need written order and then will take to [facility] . HISTORY OF PRESENT ILLNESS: Gricelda is here with her . She states she was bitten on her left hand by a feral cat on July 31. She was seen at the [facility] emergency room. Wounds were cleaned and shewas started on Augmentin 875 mg twice daily for 10 days. She was advised to start rabies immunizations if the cat could not be found. She states they have been unable to locate the cat. She states her left 5th finger throbs. Wounds are clean and dry. REVIEW OF SYSTEMS: Positive for that mentioned in the History of Present Illness and Past Medical History. All other systems were reviewed and were negative. The following portions of the patient's history were reviewed and updated as appropriate: allergies,current medications, family history, medical history, social history, surgical history and problem list. ALLERGIES: Allergies Allergen Reactions ??? Cephalexin Other (see comments) MEDICATIONS: Current Outpatient Prescriptions: ??? amoxicillin-pot clavulanate (AUGMENTIN) 875-125 mg per tablet, Take 1 tablet by mouth 2 (two) times a day. , Disp: , Rfl: ??? atomoxetine (STRATTERA) 80 mg capsule, TAKE ONE CAPSULE BY MOUTH ONCE DAILY, Disp: 90 capsule, Rfl: 0 ??? busPIRone (BUSPAR) 30 mg tablet, TAKE ONE TABLET BY MOUTH TWICE DAILY, Disp: 180 tablet, Rfl: 3 ??? calcium carbonate-vitamin D3 500 mg(1,250mg) -400 unit tablet, Take 1 tablet by mouth daily. , Disp: , Rfl: ??? cetirizine (ZyrTEC) 10 mg tablet, Take 1 tablet by mouth daily., Disp: , Rfl: ??? cholecalciferol (VITAMIN D3) 2,000 Unit tablet, Take 2,000 Units by mouth daily., Disp: , Rfl: ??? cyanocobalamin (VITAMIN B12) 1,000 mcg/mL injection, INJECT 1000MCG INTERMUSCULAR ONCE MONTH, Disp: 3 mL, Rfl: 3 ??? escitalopram (LEXAPRO) 20 mg tablet, TAKE ONE TABLET BY MOUTH ONCE DAILY, Disp: 90 tablet, Rfl: 0 ??? fluticasone (for_FLONASE) 50 mcg/actuation nasal spray, Administer 2 sprays into each nostril daily., Disp: 16 g, Rfl: 11 ??? gabapentin (for_NEURONTIN) 300 mg capsule, 2 tabs po tid, Disp: 180 capsule, Rfl: 2 ??? levETIRAcetam (KEPPRA) 500 mg tablet, Take [...] as needed. , Disp: , Rfl: ??? promethazine (PHENERGAN) 25 mg tablet, Take 25 mg by mouth as needed. , Disp: , Rfl: ??? SUMAtriptan (IMITREX) 100 mg tablet, as needed. , Disp: , Rfl: ??? syringe, disposable, 1 mL syringe, 1 each every 30 (thirty) days., Disp: 25 Syringe, Rfl: 1 ??? traZODone (for_DESYREL) 100 mg tablet, Take 1 tablet (100 mg total) by mouth daily., Disp: 90 tablet, Rfl: 3 ??? ZOLMitriptan (ZOMIG) 5 mg tablet, Take by mouth as needed. , Disp: , Rfl: ??? citalopram (CeleXA) 40 mg tablet, Take 1 tablet by mouth daily., Disp: , Rfl: ??? cyclobenzaprine (for_FLEXERIL) 10 mg tablet, Take 1 tablet (10 mg total) by mouth 3 (three) times a day as needed for muscle spasms., Disp: 30 tablet, Rfl: 0 ??? vitamin-iron fumarate-FA ( MULTIVITAMINS) 28 mg iron- 800 mcg per tablet, Take 1 capsule by mouth 2 (two) times a day., Disp: , Rfl: ??? SUMAtriptan (IMITREX) 100 mg tablet, Take 1 tablet (100 mg total) by mouth once for 1 dose., Disp: 9 tablet, Rfl: 3 OBJECTIVE VITAL SIGNS: Temperature: [36.7 ??C] 36.7 ??C Resp Rate: [16] 16 Blood Pressure: (116)/(84) 116/84 Pulse Rate: [102] 102 PHYSICAL EXAM: GENERAL: Well-developed, well-nourished, in no acute distress. SKIN: Warm and dry. HEART: Regular rate and rhythm. S1, S2. No murmur. LUNGS: Clear to auscultation. No wheezes or rales. EXTREMITIES: Left 5th finger multiple puncture wounds, clean and dry. ASSESSMENT /PLAN: #1 Bite Cat Hand Open Subsequent Left She prefers to receive immunizations at [facility] rather than drive to [place], she lives in [place]. Call was placed to [facility] emergency room to schedule rabies immunizations as we do not have them here at the clinic. She will need to return to the emergency room for the 1st injection and then the rest will be scheduled at the [facility] in [place]. Continue acetaminophen 500 mg, 2 tablets every 4 hr as needed for pain. Recommend elevating left dee much as possible. HEALTH MAINTENANCE: Due for fasting lipids. AULIC BOOM OPERATOR documented in this encounter Plan of Treatment Not on filedocumented as of this encounter Visit Diagnoses Diagnosis Bite Cat Hand Open Subsequent Left - Amna srivastava documented in this encounter Care Teams Potato Sorter Relationship Specialty Start Date End Date Qasim Meza P.A.-C. PCP - General 01/22/17 08/24/[address] [place] [phone] documented as of this encounter
--- OUTSIDE RECORDS SUMMARY | 2022-04-10 14:59 | XMS_ITS | Encounter Summary ---
:[address] [facility] Address [address] [place] [address] Care Team Providers Name Role Phone Bonnie Franz M.D. Primary Care Provider [phone] Reason for Visit Reason Comments Annual Exam Establish Care Med Management Appointment Request (Routine) - Closed Specialty Diagnoses / Procedures Referred By Contact Refer red To Contact Family Medicine Referral ID Status Reason Start Date Expiration Date Visits Requ ested Visits Authorized [id number] Closed 08/26/2018 08/26/2019 1 Encounter Details Date Type Department Care Team Description 08/26/2018 Office Visit Department of Family Yuval Gutierrez rticulitis (Primary Medicine, [place], [place]) Clinic, in [place] [address] [facility] [place] [phone] [phone] Social History Tobacco Use Types Packs/Day Years [...] do you attend mandaeism or Never 2021 yarsanism services? 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D. - 08/26/2018 1:30 PM CST CHIEF COMPLAINT/ REASON FOR VISIT Review recent ER visit Ongoing abdominal pain HISTORY OF PRESENT ILLNESS Gricelda Roberts is a 37 y.o. female who presents to the clinic today follow-up recent emergency room visit. She was seen in the ER on 08/19 with pain in the left low back and left lower abdomen. She was evaluated with CT scan which was unremarkable. She was treated with Bentyl. She has had ongoing symptoms. The low back is stiff and painful and she still has a hard time bending forward. Her back and low abdomen hurt when she is sitting and finds that both are more comfortable when she is laying flat. She has not had fevers. There is no nausea vomiting or diarrhea. The patient denies any additional questions or [...] 1 tablet by mouth as needed. ??? PROCTOZONE-HC 2.5 % rectal cream ??? [...] 0 ??? gabapentin (NEURONTIN) 300 mg capsule 2 tabs po tid 180 capsule 2 ??? nystatin-triamcinolone (MYCOLOG II) 100,000 Unit/g-0.1 % cream Apply 0.5 inches topically as needed. ??? vitamin-iron fumarate-FA ( MULTIVITAMINS) 28 mg iron- 800 mcg per tablet Take 1capsule by mouth 2 (two) times a day. ??? SUMAtriptan (IMITREX) 100 mg tablet Take [...] Use Topics ??? Smoking status: Former Smoker ??? Smokeless tobacco: Never Used ??? Alcohol use No VITAL SIGNS Vitals: 08/26/18 1324 BP: 98/62 Patient Position: Sitting Pulse: 84 Temp: 36.9 ??C Resp: 12 Height: 163 cm Weight: 89.8 kg TempSrc: Temporal Body mass index is 33.78 kg/m??. PHYSICAL EXAMINATION General: Patient is alert and oriented times three, in no acute distress, good hygiene and is dressed appropriately. HEENT: Tympanic membranes are normal bilaterally. Oropharynx is without erythema or exudate. Nasal mucosa is without injection. Neck is without adenopathy. Lymph nodes: Not palpably enlarged and no nodules are palpated. Heart: Regular rate and rhythm without murmur. Lungs: Clear to auscultation. Abdomen: Bowel sounds are normal. She has tenderness in the left lower quadrant and some lesser tenderness in the left upper quadrant.. Skin: No rashes or suspicious lesions noted on exposed skin. DIAGNOSTICS Recent ER visit reviewed. ASSESSMENT / PLAN 1. Left lower quadrant pain suspect diverticulitis Prescription is given for ciprofloxacin. Other symptomatic measures. Update me next week and sooner with worsening symptoms. Follow up The patient will contact the clinic with any new or worsening symptoms. ADMINISTRATIVE BILLING 20 minutes of this 25 minute visit was spent in face to face counseling and coordination of care. CH PACKER documented in this encounter Plan of Treatment Not on filedocumented as of this encounter Visit Diagnoses Diagnosis Diverticulitis - Primary documented in this encounter Care Teams Selenium Plant Operator Relationship Specialty Start Date End Date Bonnie Franz M.D. PCP - General Family Medicine 08/25/18 01/08/20 [address] [place] [phone] documented as of this encounter
--- OUTSIDE RECORDS SUMMARY | 2022-04-10 14:59 | XMS_ITS | Encounter Summary ---
:1980 Author Organization [facility] Address [address] [place] [address] Care Team Providers Name Role Phone Qasim Meza P.A.-C. Primary Care Provider [phone] Reason for Visit Reason Comments Med Refill Encounter Details Date Type Department Care Team Description 06/05/2018 [facility] Qasim Calderon P.A.-C. Med Refill Pharmacy [address] [place] [phone] [place] [address] [phone] Social History Tobacco Use Types Packs/Day Years [...] do you attend tenriism or Never 2021 episcopal services? 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 - 06/07/2018 4:50 PM CDT Left a message to please return our call. documented in this encounter Plan of Treatment Not on filedocumented as of this encounter Visit Diagnoses Not on filedocumented in this encounter Care Teams Balance Wheel Facer Relationship Specialty Start Date End Date Qasim Meza P.A.-C. PCP - General 01/22/17 08/24/18 [address] [place] [phone] documented as of this encounter
--- OUTSIDE RECORDS SUMMARY | 2022-04-10 15:00 | XMS_ITS | Encounter Summary ---
:1980 Author Organization [facility] Address [address] [place] [address] Care Team Providers Name Role Phone Qasim Meza P.A.-C. Primary Care Provider [phone] Reason for Visit Reason Onset Date Comments Med Refill 08/27/2017 [facility] in [place] has a request from the patient to refill her Buspirone. Christine cox send new script. Encounter Details Date Type Department Care Team Description 08/27/2017 Clinical Communication Department [facility] in [facility] has a Jossy Reynolds P.A.-C. request from the [address] [place] [address] patient to refill [place], [place] her Buspirone. [phone] Please send new [phone] script. ) (Work) Social History Tobacco Use Types Packs/Day Years Used Date Smoking Tobacco: Former Alcohol Habits Answer Date Recorded How often [...] do you attend quaker or Never 2021 yazdanism services? 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 Please send new script. PURSE FRAMER documented in this encounter Plan of Treatment Not on filedocumented as of this encounter Visit Diagnoses Not on filedocumented in this encounter Additional Health Concerns Assessment Noted Time PHQ-9 Depression Total Score: 8 06/12/2016 10:45 AM CD T documented as of this encounter Care Teams Claim Processing Specialist Relationship Specialty Start Date End Date Qasim Meza P.A.-C. PCP - General 01/22/17 08/24/[address] [place] [phone] documented as of this encounter
--- OUTSIDE RECORDS SUMMARY | 2022-04-10 15:00 | XMS_ITS | Encounter Summary ---
:1980 Author Organization [facility] Address [address] [place] [address] Care Team Providers Name Role Phone Oseas Meza P.A.-C. Primary Care Provider [phone] Reason for Visit Reason Comments Med Refill Encounter Details Date Type Department Care Team Description 08/18/2017 Refill Department of Family Medicine, Oseas Ceja P.A.-C. Med Refill [facility], in [address] [place] [phone] [place] [address] [place] [address] [phone] Social History Tobacco Use Types Packs/Day Years [...] many times do you More than three ejrman es a week 09/02/2021 talk on the phone with family, friends, or neighbors? How often do you get together with friends More than three t imes a week 09/02/2021 or relatives? How often do you attend samaritan or Never 2021 holiness services? 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 - 08/20/2017 10:21 AM MEDICAL IMAGING DIRECTOR Addended by: OSEAS MEZA on: 08/20/2017 10:21 AM Modules accepted: Orders CAL IMAGING DIRECTOR Telephone Encounter - Collin Ann L.P.N. - 08/20/2017 9:55 AM MEDICAL IMAGING DIRECTOR Insurance will pay for name brand only and message states need to write BERTHA. Do you know if this onedone as name brand only? Thank you. CAL IMAGING DIRECTOR Telephone Encounter - Collin Ann L.P.N. - 08/18/2017 2:57 PM MEDICAL IMAGING DIRECTOR Oseas, Please see request. Thank you. CAL IMAGING DIRECTOR Telephone Encounter - Bhavani Chavira - 08/18/2017 2:52 PM CST Nurse Review: Pharmacy Communication Provider: Oseas Meza Medication: STRATTERA CAP Strength: 80mg Frequency:Take one capsule by mouth once daily in the morning Pharmacy Comment: Insurance will only cover brand name with BERTHA. Please send new Rx with BERTHA and diagnosis code. Thanks, Panda [place] CAL IMAGING DIRECTOR documented in this encounter Plan of Treatment Not on filedocumented as of this encounter Visit Diagnoses Not on filedocumented in this encounter Additional Health Concerns Assessment Noted Time PHQ-9 Depression Total Score: 8 06/12/2016 10:45 AM CD T documented as of this encounter Care Teams Vault Worker Relationship Specialty Start Date End Date Oseas Meza P.A.-C. PCP - General 01/22/17 08/24/[address] [place] [phone] documented as of this encounter
--- OUTSIDE RECORDS SUMMARY | 2022-04-10 15:00 | XMS_ITS | Encounter Summary ---
:1980 Author Organization [facility] Address [address] [place] [address] Care Team Providers Name Role Phone Qasim Meza P.A.-C. Primary Care Provider [phone] Encounter Details Date Type Department Care Team Description 11/05/2017 Abstract Department of Family Medicine in Provider , Historical Woodrow Mckeon n [address] [phone] Social History Tobacco Use Types Packs/Day Years Used Date Smoking Tobacco: Unknown Smokeless Tobacco: Never Alcohol Habits Answer Date Recorded How often [...] do you attend sikh or Never 2021 christianity services? 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 PCP - General 01/22/17 08/24/18 [address] [place] [phone] documented as of this encounter
--- OUTSIDE RECORDS SUMMARY | 2022-04-10 15:00 | XMS_ITS | Encounter Summary ---
:1980 Author Organization [facility] Address [address] [place] [id number] Care Team Providers Name Role Phone Qasim Meza P.A.-C. Primary Care Provider Encounter Details Date Type Department Care Team Description 04/20/2018 Hospital Encounter Department of Radiology Jesus Deleon, Pain Hip Left in [place] M.D. [address] [place] [address] [place] [id number] [place] [address] [phone] Social History Tobacco Use Types Packs/Day Years [...] do you attend christian or Never 2021 uatsdin services? 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 busPIRone (for_BUSPAR) Take 1 tablet (30 mg 180 tablet 3 06/22/2018 30 mg tablet total) by mouth 2 (two) times a day. calcium Take 1 tablet by 0 07/13/2013 10/07/19 22 carbonate-vitamin D3 mouth daily. 500 mg(1,250mg) -400 unit tablet cholecalciferol Take 1 tablet (400 90 tablet 3 07/08/2017 0 04/27/2018 (cholecalciferol) 400 Units total) by Unit tablet mouth daily. citalopram (CeleXA) 40 Take 1 tablet by 0 015 03/27/2020 mg tablet mouth daily. cyanocobalamin (VITAMIN INJECT 1000MCG 3 mL 3 04/19/20 18 08/26/2018 B12) 1,000 mcg/mL INTERMUSCULAR ONCE injection MONTH cyclobenzaprine Take 1 tablet (10 mg 30 tablet 0 10/09/2017 08/26/2018 (for_FLEXERIL) 10 mg total) by mouth 3 tablet (three) times a day as needed for muscle spasms. escitalopram (LEXAPRO) Take 1 tablet (20 mg 90 tablet 3 12/201706/05/2018 20 mg tablet total) by mouth daily. fluticasone Administer 2 sprays 16 g 11 08/05/201708/10 (for_FLONASE) 50 into each nostril mcg/actuation nasal daily. spray gabapentin 2 tabs po tid 180 capsule 2 10/08/2017 08/25/2018 (for_NEURONTIN) 300 mg capsule levETIRAcetam (KEPPRA) Take 1 tablet (500 180 tablet 3 02/0108/26/2018 500 mg tablet mg total) by mouth 2 (two) times a day. levothyroxine TAKE ONE TABLET BY 90 tablet 0 04/19/201811/2017 (SYNTHROID, LEVOTHROID) MOUTH ONCE DAILY 75 mcg tablet lidocaine (LIDODERM) 5 Apply 1 patch 0 05/11/2017 06/08/2018 % patch topically daily. ondansetron (ZOFRAN) 8 Take 1 tablet by 0 016 03/27/2020 mg tablet mouth as needed. vitamin-iron Take 1 capsule by 0 016 04/04/2020 fumarate-FA ( mouth 2 (two) times MULTIVITAMINS) 28 mg a day. iron- 800 mcg per tablet STRATTERA 80 mg capsule Take 1 capsule (80 90 capsule 3 08/1006/05/2018 mg total) by mouth daily. Diagnosis code attention deficit disorder. F 90.9 SUMAtriptan (IMITREX) Take 1 tablet (100 9 tablet 3 201708/23/2018 100 mg tablet mg total) by mouth once for 1 dose. SUMAtriptan (IMITREX) as needed. 0 03/10/2018 100 mg tablet syringe, disposable, 1 1 each every 30 25 Syringe 1 09/14/19 18 08/26/2018 mL syringe (thirty) days. syringe, disposable, 1 1 Device by not 0 07/13/20 13 04/04/2020 mL syringe applicable route. traZODone (for_DESYREL) Take 1 tablet (100 90 tablet 3 07/1108/26/2018 100 mg tablet mg total) by mouth daily. documented as of this encounter Plan of Treatment Not on filedocumented as of this encounter Procedures Procedure Name Priority Date/Time Associated Comments Diagnosis DX HIP AND PELVIS RAD - Routine 04/20/2018 1:34 Pain Hip Left Resul ts for this LEFT 2-3 VIEWS (most inpatients PM CDT procedure are in and all the results outpatients) section. documented in this encounter Results DX Hip And Pelvis Left 2-3 Views (04/20/2018 1:34 PM CDT) Anatomical Region Laterality Modality Lower Extremity, Pelvis, Hip, Musculoskeletal RST LOS Left Computed Radiography Specimen (Source) Anatomical Collection Method Collection Time Re ceived Time Location / / Volume Laterality 04/20/2018 1:39 PM CDT Impressions 04/20/2018 1:41 PM CDT IMPRESSION: Comparison 07/13/14. No fracture or dislocation. 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 No cam lesions or synovial herniation cysts. No degenerative joint disease. Pelvic clips. Narrative 04/20/2018 1:41 PM CDT EXAM: DX HIP AND PELVIS LEFT 2-3 VIEWS Procedure Note Donis Pringle M.D. - 04/20/2018 EXAM: DX HIP AND PELVIS LEFT 2-3 VIEWS IMPRESSION: Comparison 07/13/14. No fract ure or dislocation. 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 No cam lesions or synovial herniation cysts. No degenerative joint disease. Pelvic clips. Jesus Deleon M.D. [facility] documented in this encounter Visit Diagnoses Diagnosis Pain Hip Left documented in this encounter Additional Health Concerns Assessment Noted Time PHQ-9 Depression Total Score: 8 06/12/2016 10:45 AM CD T documented as of this encounter Care Teams Physical Therapist Center Manager Relationship Specialty Start Date End Date Qasim Meza P.A.-C. PCP - General 01/22/17 08/24/[address] [place] [phone] documented as of this encounter
--- OUTSIDE RECORDS SUMMARY | 2022-04-10 15:00 | XMS_ITS | Encounter Summary ---
:1980 Author Organization [facility] Address [address] [place] [address] Care Team Providers Name Role Phone Qasim Meza P.A.-C. Primary Care Provider [phone] Reason for Visit Reason Comments Hemorrhoids not responding to otc medica tion x 2 weeks Appointment Request (Routine) - Closed Specialty Diagnoses / Procedures Referred By Contact Refer red To Contact Family Medicine Referral ID Status Reason Start Date Expiration Date Visits Requ ested Visits Authorized [id number] Closed 04/27/2018 04/27/2019 1 Encounter Details Date Type Department Care Team Description 04/27/2018 Office Visit Department of Family Yuli Rhodes orrhoids (Primary Medicine, Bonnie Lauren, [facility]) [facility], in [place] [address] [facility] [phone] Social History Tobacco Use Types Packs/Day Years [...] do you attend nondenominational or Never 2021 confucianism services? 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 - 04/27/2018 1:45 PM CDT SUBJECTIVE CHIEF COMPLAINT / REASON FOR VISIT Gricelda Roberts is a 37 y.o. female who presents for evaluation of Hemorrhoids (not responding to otc medication x 2 weeks). HISTORY OF PRESENT ILLNESS Gricelda Roberts comes in accompanied by her . She claims some itching and burning and painat her anal opening. She has also noted a bulge. She has been using some [id number] wipes in creams without any benefit. She has never had this problem in the past, even with . She denies being constipated. OBJECTIVE BP 102/82 Pulse 68 Temp 36.8 ??C (Temporal) Resp 16 Ht 165 cm Wt 90.8 kg BMI 33.33 kg/m?? PHYSICAL EXAM GENERAL: Patient is alert and oriented, well groomed and appropriately dressed. HEART: Regular rate and rhythm without murmur. LUNGS: Clear without wheeze crackle or rhonchus. ABDOMEN: Normal bowel sounds. No mass or tenderness. RECTAL: There is a small amount of redundant tissue at the anal opening. No thrombosed hemorrhoids. No abnormality palpated on digital rectal exam and no abnormality visualized on anoscopic exam. EXTREMITIES: Normal without edema. SKIN: No rashes or unusual lesions on exposed skin. ASSESSMENT / PLAN #1 Hemorrhoids She will treat symptomatically with warm soaks, witch Khushi pads, and Anusol. We gave her prescription for this. She needs to keep her bowel movements is soft is possible to avoid straining at the stool. She will alert me to any new or worsening difficulties. Bonnie Franz M.D. documented in this encounter Plan of Treatment Not on filedocumented as of this encounter Visit Diagnoses Diagnosis Hemorrhoids - Primary documented in this encounter Care Teams Dry Wall Plasterer Relationship Specialty Start Date End Date Qasim Meza P.A.-C. PCP - General 01/22/17 08/24/[address] [place] [phone] documented as of this encounter
--- OUTSIDE RECORDS SUMMARY | 2022-04-10 15:00 | XMS_ITS | Encounter Summary ---
:1980 Author Organization [facility] Address [address] [place] [address] Care Team Providers Name Role Phone Oseas Wilson P.A.-C. Primary Care Provider [phone] Encounter Details Date Type Department Care Team Description 01/27/2017 Hospital Encounter HX [facility] Caprice Stuart M.D. [address] [place] [address] (Wo rk) Social History Tobacco Use Types [...] do you attend mormonism or Never 2021 quaker services? 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 promethazine (PHENERGAN) Take 25 mg by mouth 0 25 mg tablet as needed for nausea. calcium Take 1 tablet by 0 07/13/2013 10/07/19 22 carbonate-vitamin D3 500 mouth daily. mg(1,250mg) -400 unit tablet citalopram (CeleXA) 40 Take 1 tablet by 0 015 03/27/2020 mg tablet mouth daily. fluticasone Administer 2 sprays 0 06/12/201607/11 (for_FLONASE) 50 into affected mcg/actuation nasal nostril(s) daily. spray gabapentin Take 1 capsule by 0 01/27/2017 018 (for_NEURONTIN) 300 mg mouth 3 (three) times capsule a day. levETIRAcetam (KEPPRA) Take 1 tablet by 0 017 02/01/2018 500 mg tablet mouth 2 (two) times a day. ondansetron (ZOFRAN) 8 Take 1 tablet by 0 016 03/27/2020 mg tablet mouth as needed. vitamin-iron Take 1 capsule by 0 016 04/04/2020 fumarate-FA ( mouth 2 (two) times a MULTIVITAMINS) 28 mg day. iron- 800 mcg per tablet syringe, disposable, 1 1 Device by not 0 07/13/20 13 04/04/2020 mL syringe applicable route. traZODone (for_DESYREL) Take 1 tablet by 0 201608/06/2017 100 mg tablet mouth daily. documented as of this encounter Progress Notes Caprice Stuart M.D. - 01/27/2017 12:56 PM CDT [id number] CHIEF COMPLAINT/REASON FOR VISIT Follow up of epilepsy, and new consideration for migraine headaches. HISTORY OF PRESENT ILLNESS Ms. Reid returns today with her , who gives additional pertinent history, and followup forepilepsy. In summary, she has no seizure risk [...] daily, which she remains on. EEG in [place] was normal. MRI in April 2016 did not show any epileptogenic lesions. She has not had any clear seizures since that time. In June 2016 she did stop many of her medications on her own, including her levetiracetam. She recalls that 1 night she suddenly had very severe right-sided headache and her head started jerking (by her description to the left), and then her whole body began jerking. Importantly, she remained awake this entire time. Her also says that there will be times where she will have a set of jerks or shuddering as he physically demonstrates to me in the office while she sleeps which will be intermittent for 2 or 3 minutes at a time. She denies any side effects with levetiracetam. She forgets her evening dose about 4 times per week,she says in part because she is under stress from her father's poor health. She does have a background of depression and anxiety, and she does feel like these are currently going well. She also describes migraine headaches that she is interested in having an opinion on treatments. Shahrzad had headaches for at least the last 15 years. She says that the pressure will start behind her eyes and will build to include the bilateral temples, forehead and the back of the head and neck. It is worse on the left than the right. The pain becomes very extreme and associated with light and sound sensitivity, smell sensitivity, and nausea. Headaches may last 3 days, and up to 2 weeks. They occur at least on a weekly basis. She does have a prescription for Imitrex but she generally tries not to take it. When she does take it, it will generally be after about 2 days of headache. It does make her feel tired. She does take Tylenol on occasion for her headaches, and she cannot take NSAIDs because she has a history of gastric bypass surgery. She takes verapamil as a daily preventative and has done so for the last 5 to 6 years without changein dose from 120 mg. Her headache pattern has not changed over this time despite the use of verapamil, and she does describe that she gets lightheaded easily when she stands up. She has been on propranolol at some point in the past. She has also tried sumatriptan inhaled, Vicodin, and Percocet. She is currently on gabapentin 300 mg once daily for knee pain and is tolerating that well. MEDICATIONS See medication tab in [facility], reviewed today. ALLERGIES See allergies tab in [employer], reviewed today. SYSTEMS REVIEW Complete review of systems performed and negative except as listed in the HPI. PHYSICAL EXAMINATION GENERAL: No acute distress. NEUROLOGIC: Funduscopic examination shows sharp disc margins bilaterally. IMPRESSION/REPORT/PLAN 1. Epilepsy, unclassified, etiology unknown. This is going well. I encouraged her to continue taking levetiracetam without missing doses. I recommended setting an alarm or setting out a pill workers' compensation commissioner so that she can keep track of her pills better and take it when she is supposed to. 2. Migraine without aura. It would be most important for her to treat her headaches at onset rather than waiting for 2 days. Itold her that she should take her sumatriptan immediately when she realizes that a headache is coming on, and she should consider carrying some with her in case headaches start while she is out and about. She has not noticed any benefit from verapamil, and gets lightheaded easily upon standing. She is also already on gabapentin at a low dose, so we can use this to titrate upward as a headache preventative and remove her verapamil. She will increase the gabapentin by 1 tablet every week to a new target of 300 mg 3 times daily, and following that her verapamil will be stopped. Her gabapentin dose can further be escalated upwards in a similar manner to higher doses up to 600, 900, and 1200 mg 3 times daily provided she tolerates it. We discussed the use of exercise in headache prevention. We also discussed the use of naturopathic medications like riboflavin 400 mg daily, coenzyme Q10 300to 400 mg daily and magnesium 400 to 500 mg daily in the prevention of migraine headaches. I have let her know that she can take any of these alone or in combination in addition to the medications thatloni is currently on. I have recommended followup in 6 months. I have let her know that I will be transitioning away from [place] and working full-time in [place] in June. She asks if she might be able to see me in [place] rather than return to a new provider here, particularly because of her epilepsy diagnosis. Ihave let her know that I will look into this at a later date and arrange through [place] as appropriate when schedules open up around that 6 month time frame. [id number]-[id number] time this encounter was 30 minutes with 20 minutes spent in counseling and coordinationof care. Caprice Stuart M.D./caitlyn Electronically Signed By: CAPRICE STUART MD On: 01/28/2017 07:48 AM Modified by and Electronically Signed by: CAPRICE STUART MD On: 01/28/2017 07:48 AM Source: [facility] MHSDOLBEYNONRADSYS Document Id: [id number] documented in this encounter Miscellaneous Notes Miscellaneous - Caprice Stuart M.D. - 01/27/2017 1:44 PM CDT Ambulatory Patient Summary [address] [id number] Visit Information Name: MUKUL REID [facility] Number: [id number] Current Date: 01/27/2017 13:44:34 Physicians Attending Provider: CAPRICE STUART MD Primary Care Provider: OSEAS WILSON PA-C MUKUL REID has been given the following list of follow-up instructions, medication list, and patient education materials: Follow-up Instructions Your Medications Here is a list of your medications. It is important to take your medications as directed. Use a pillbox or chart to help remind you to take your medications. Please let your doctor or nurse know if you have problems taking your medications. Medication/Strength How to Take Indications/Special Instructions/Comments/Notes for Patient Medication Changes/Routing atomoxetine (Strattera 80 mg oral capsule) 1 cap, Oral, once a day (in the morning) busPIRone (busPIRone 30 mg oral tablet) 1 Tablet(s), Oral, two times a day cetirizine (ZyrTEC 10 mg oral tablet) 1 Tablet(s), Oral, once a day cyanocobalamin (Vitamin B12 1000 mcg/mL injectable solution) 1,000 mcg, Intramuscular, once a month escitalopram (Lexapro 20 mg oral tablet) 1 Tablet(s), Oral, once a day fluticasone nasal (Flonase) 1 [place](s), Nasal, once a day fluticasone nasal (Flonase 50 mcg/inh nasal spray) 2 [place](s), Nasal, once a day gabapentin (gabapentin 300 mg oral capsule) 1 cap, Oral, three times a day Increase by 1 capsule perweek to 1 capsule 3 times daily This is a CHANGE Routed to [address] [address] levETIRAcetam (Keppra 500 mg oral tablet) 1 Tablet(s), Oral, two times a day Routed to [address] [address] levothyroxine (levothyroxine 75 mcg (0.075 mg) oral tablet) 75 mcg, Oral, once a day Due for Labs multivitamin, ( Multivitamins with Vitamin B Complex, Vitamin C, Minerals and L-Methylfolate oral capsule) 1 cap, Oral, once a day ondansetron (ondansetron 8 mg oral tablet) 1 Tablet(s), Oral, three times a day as needed SUMAtriptan (SUMAtriptan 100 mg oral tablet) 1 Tablet(s), Oral, once listed in doc by history traZODone (traZODone 100 mg oral tablet) 1 Tablet(s), Oral, once a day Stop Taking the Following Medications: verapamil (verapamil 120 mg/24 hours oral capsule, extended release) Medication list as of 01-27-17 13:44 Attention: If you have any medications at home that are not on this list, DO NOT take them until youcontact your provider for clarification. Give a copy of your medication list to your primary care provider. Update your medication list any time medications or doses are changed and carry your medication list at all times in case of emergency. Electronically Signed By: CAPRICE STUART MD Signed On:27-JAN-2017 13:44:28 Your Allergies & Intolerances Substance Reaction Symptoms Category Comments Keflex Drug Your Problem List Problem Status Onset Comments Degenerative Joint Disease Multiple Sites Active Gastric Bypass S/P Active Disorder Attention Deficit Hyperactive (ADHD) Active Depression Anxiety Active Hypothyroidism NOS Active Migraine Headache (AGUILERA) NOS Active Pain Back Lumbar Active Complic Morbid Obesity BodyMassIndex BMI >40 Preg Antepartum Active Dependence Drug Opioid NOS Active Smoking Tobacco Use Pers Hx Active 12/18/15 quit 1997 Migraine Headache (AGUILERA) Without Aura NOS Active Epilepsy (SZ) NOS Not Intractable Without Status Epilepticus Active Your Upcoming Appointments Date Time Location Provider No Appointments found Attention: Contact your local Clinic if further appointment detail needed. Consider Using Patient Online Services Patient Online Services is a secure online and Mobile application that lets you: ?? View lab and test results ?? View portions of your medical record including clinical notes, immunizations and discharge summaries ?? Request an appointment or medication refill ?? Review your appointment schedule ?? Send secure messages to your care team Its easy to create an account if you dont have one. Go to [email or web address] and click on Create Your Account. Then, follow the directions to complete the online form. Youll be asked for your [facility] number which you can find at the top of this document. Your Goals/Additional instructions: Source: [facility] POWERCHART Document Id: [id number] Miscellaneous - Caprice Stuart M.D. - 01/27/2017 1:44 PM CDT Ambulatory Discharge Medication List [facility] [address] [place] [id number] Visit Information Name: MUKUL REID [facility] Number: [id number] Current Date: 01/27/2017 13:44:32 Attending Provider: CAPRICE STUART MD Primary Care Provider: OSEAS WILSON PA-C MUKUL REID has been given the following list of medications: Your Medications It is important to take your medications as directed. Use a pill box or chart to help remind you to take your medications. Please let your doctor or nurse know if you have problems taking your medications. Medication/Strength How to Take Indications/Special Instructions/Comments/Notes for Patient Medication Changes/Routing atomoxetine (Strattera 80 mg oral capsule) 1 cap, Oral, once a day (in the morning) busPIRone (busPIRone 30 mg oral tablet) 1 Tablet(s), Oral, two times a day cetirizine (ZyrTEC 10 mg oral tablet) 1 Tablet(s), Oral, once a day cyanocobalamin (Vitamin B12 1000 mcg/mL injectable solution) 1,000 mcg, Intramuscular, once a month escitalopram (Lexapro 20 mg oral tablet) 1 Tablet(s), Oral, once a day fluticasone nasal (Flonase) 1 [place](s), Nasal, once a day fluticasone nasal (Flonase 50 mcg/inh nasal spray) 2 [place](s), Nasal, once a day gabapentin (gabapentin 300 mg oral capsule) 1 cap, Oral, three times a day Increase by 1 capsule perweek to 1 capsule 3 times daily This is a CHANGE Routed to [address] [address] levETIRAcetam (Keppra 500 mg oral tablet) 1 Tablet(s), Oral, two [place] [address] levothyroxine (levothyroxine 75 mcg (0.075 mg) oral tablet) 75 mcg, Oral, once a day Due for Labs multivitamin, ( Multivitamins with Vitamin B Complex, Vitamin C, Minerals and L-Methylfolate oral capsule) 1 cap, Oral, once a day ondansetron (ondansetron 8 mg oral tablet) 1 Tablet(s), Oral, three times a day as needed SUMAtriptan (SUMAtriptan 100 mg oral tablet) 1 Tablet(s), Oral, once listed in doc by history traZODone (traZODone 100 mg oral tablet) 1 Tablet(s), Oral, once a day Stop Taking the Following Medications: verapamil (verapamil 120 mg/24 hours oral capsule, extended release) Medication list as of 01-27-17 13:44 Attention: If you have any medications at home that are not on this list, DO NOT take them until youcontact your provider for clarification. Give a copy of your medication list to your primary care provider. Update your medication list any time medications or doses are changed and carry your medication list at all times in case of emergency. Electronically Signed By: CAPRICE STUART MD Signed On:27-JAN-2017 13:44:28 Additional Information: Source: [facility] POWERCHART Document Id: [id number] Miscellaneous - Christal Chung, LRafalP.N. 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 Intake/History Entered On: 01/27/2017 13:15 CDT Performed On: 01/27/2017 13:12 CDT by CHRISTAL CHUNG LPN Intake Chief Complaint : Neurology Recheck: Seizures Migraine headaches Medication review Temperature Core : 36.8 DegC(Converted to: 98.2 DegF) Peripheral Pulse Rate : 88 /min Heart Rhythm : Regular Systolic Blood Pressure : 109 mmHg Diastolic Blood Pressure : 65 mmHg NIBP Mean : 80 mmHg BP Location : Right upper extremity Blood Pressure Cuff Size : Large SpO2 : 98 % Oxygen Therapy : Room air Height : 165 cm(Converted to: 5 ft 5 inch(es), 65 inch(es)) Actual Weight : 93.8 kg(Converted to: 206 lb 13 oz) Weight Source : Standing scale Dosing Weight Clinic : 93.8 kg Clinic BSA : 2.07 Body Mass Index : 34.45 kg/m2 CHRISTAL CHUNG [facility] - 01/27/2017 13:12 CDT General Info Information Given By : Patient Preferred Communication Mode : Verbal Languages : Russian Is Patient Female and 13-50 no hysterectomy : No CHRISTAL CHUNG [facility] - 01/27/2017 13:12 CDT Subjective Pain Symptoms : No Neurological Symptoms : Headache CHRISTAL CHUNG [facility] - 01/27/2017 13:12 CDT Dependent Habits Exposure to Tobacco Smoke : Other: former Smoking Status : Former smoker Tobacco 2A : Yes Tobacco Use/Currently Using : No Tobacco Use/Last 30 Days : No Tobacco Use/Last 12 months : No Tobacco Last Use/Year : 1997 CHRISTAL CHUNG [facility] - 01/27/2017 13:12 CDT Caffeine Use Grid Caffeine Use : Current Type : Chocolate, Coffee, Soft drinks Frequency : Daily Amount : 1 cup, monsters 4 per day Last Use : 06/26/2016 CHRISTAL CHUNG [facility] - 01/27/2017 13:12 CDT Recreational Drug Use Grid Drug Use : None CHRISTAL CHUNG [facility] 01/27/2017 13:12 CDT Source: [facility] Document Id: [id number] CDT!45 documented in this encounter Plan of Treatment Not on filedocumented as of this encounter Visit Diagnoses Not on filedocumented in this encounter Additional Health Concerns Assessment Noted Time PHQ-9 Depression Total Score: 8 06/12/2016 10:45 AM CD T documented as of this encounter Care Teams Special Education Assistant Relationship Specialty Start Date End Date Oseas Wilson P.A.-C. PCP - General 01/22/17 08/24/[address] [place] [phone] documented as of this encounter
--- OUTSIDE RECORDS SUMMARY | 2022-04-10 15:00 | XMS_ITS | Encounter Summary ---
:1980 Author Organization [facility] Address [address] [place] [address] Care Team Providers Name Role Phone Qasim Meza P.A.-C. Primary Care Provider [phone] Reason for Visit Reason Comments Med Refill Encounter Details Date Type Department Care Team Description 07/07/2017 Refill Department of Family Medicine, Qasim Ceja P.A.-C. Med Refill [facility], in [address] [place] [phone] [place] [address] [place] [address] [phone] Social History Tobacco Use Types Packs/Day Years [...] do you attend pentecostalism or Never 2021 caodaism services? 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 - 07/07/2017 3:47 PM CST Please see refill request. LY PRACTICE PHYSICIAN Telephone Encounter - Madonna Soria - 07/07/2017 2:46 PM CST Nurse review: Unable to propose medication; Med not listed on active med list. Primary Provider: Qasim Meza Name of medication: Vitamin D3 2000 Unit Cap Strength: 2000 Unit Frequency: Take one capsule by mouth once daily Quantity: 30 Refills:3 Last Refill: 02/17/2017 Pharmacy: [facility] LY PRACTICE PHYSICIAN documented in this encounter Plan of Treatment Not on filedocumented as of this encounter Visit Diagnoses Not on filedocumented in this encounter Additional Health Concerns Assessment Noted Time PHQ-9 Depression Total Score: 8 06/12/2016 10:45 AM CD T documented as of this encounter Care Teams Tray Packer Relationship Specialty Start Date End Date Qasim Meza P.A.-C. PCP - General 01/22/17 08/24/[address] [place] [phone] documented as of this encounter
--- OUTSIDE RECORDS SUMMARY | 2022-04-10 15:00 | XMS_ITS | Encounter Summary ---
:1980 Author Organization [facility] Address [address] [place] [address] Care Team Providers Name Role Phone Qasim Meza P.A.-C. Primary Care Provider Reason for Visit Reason Onset Date Comments Med Refill 10/09/2017 Encounter Details Date Type Department Care Team Description 10/09/2017 Clinical Communication Department of Internal Qasim Meza, Med Refill Medicine in [facility] [address] [place], [place] [phone] Social History Tobacco Use Types Packs/Day Years Used Date Smoking Tobacco: Former Smokeless Tobacco: Never Alcohol Habits Answer Date [...] do you attend scientology or Never 2021 evangelical services? 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 - 10/13/2017 2:22 PM CST Patient notified. DING OPERATOR Telephone Encounter - Magaly Chavis L.P.N. - 10/12/2017 4:30 PM CST See message in chart. DING OPERATOR Telephone Encounter - Arlyn Jose L.P.N. - 10/12/2017 4:17 PM CST Called and informed patient of results and that we would send the message to Dr. Grady to address tomorrow. Patient also states that yesterday she cracked her neck and both of her hands went numb forabout five minutes. After about five minutes all feeling returned. Patient wanted you to be aware ofthis. Patient is expecting a call from your office with recommendations. DING OPERATOR Telephone Encounter - Qasim Meza P.A.-C. - 10/12/2017 4:06 PM BUILDING OPERATOR She does have some small osteophytes or arthritis in her cervical spine. There is nothing urgent that needs to be done but I would like to know what his thoughts are about this x-ray moving forward. I did not see her for this so I am not sure what he would recommend. If you are working with him I think it might be best for him to contact her with recommendations when he is available. Nothing urgent DING OPERATOR Telephone Encounter - Arlyn Jose L.P.N. - 10/12/2017 1:43 PM CST Could you please address patient's x-ray results in Dr. Grady's absence? DING OPERATOR Telephone Encounter - Renetta Matt - 10/12/2017 12:29 PM CST Calls for results of xray DING OPERATOR Telephone Encounter - Bonnie Franz M.D. - 10/09/2017 5:40 PM BUILDING OPERATOR Rx for cyclobenzaprine is sent. Patient was notified. DING OPERATOR Telephone Encounter - Jacklyn Costa - 10/09/2017 4:30 PM CST Patient is wondering about xray results and also wondering if she can get some muscle relaxer's. Sheis aware Dr. Grady is out and is wondering if someone else could do this for her. Please advise and call [phone] DING OPERATOR documented in this encounter Plan of Treatment Not on filedocumented as of this encounter Visit Diagnoses Not on filedocumented in this encounter Additional Health Concerns Assessment Noted Time PHQ-9 Depression Total Score: 8 06/12/2016 10:45 AM CD T documented as of this encounter Care Teams Soil Technician Relationship Specialty Start Date End Date Qasim Meza P.A.-C. PCP - General 01/22/17 08/24/18 [address] [place] [phone] documented as of this encounter
--- OUTSIDE RECORDS SUMMARY | 2022-04-10 15:00 | XMS_ITS | Encounter Summary ---
:1980 Author Organization [facility] Address [address] [place] [address] Care Team Providers Name Role Phone Qasim Meza P.A.-C. Primary Care Provider [phone] Reason for Visit Reason Comments Med Refill Encounter Details Date Type Department Care Team Description 02/01/2018 Refill Department of Family Medicine, Qasim Ceja P.A.-C. Med Refill [facility], in [address] [place] [phone] [place] [address] [place] [address] [phone] Social History Tobacco Use Types Packs/Day Years [...] do you attend methodist or Never 2021 druze services? 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 PCP - General 01/22/17 08/24/[address] [place] [phone] documented as of this encounter
--- OUTSIDE RECORDS SUMMARY | 2022-04-10 15:00 | XMS_ITS | Encounter Summary ---
:1980 Author Organization [facility] Address [address] [place] [address] Care Team Providers Name Role Phone Qasim Meza P.A.-C. Primary Care Provider [phone] Reason for Visit Reason Comments Med Refill Encounter Details Date Type Department Care Team Description 02/08/2018 Refill Department of Family Medicine, Qasim Ceja P.A.-C. Med Refill [facility], in [address] [place] [phone] [place] [address] [place] [address] [phone] Social History Tobacco Use Types Packs/Day Years [...] or relatives? How often do you attend religious or Never 2021 oriental orthodox services? 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 PCP - General 01/22/17 08/24/[address] [place] [phone] documented as of this encounter
--- OUTSIDE RECORDS SUMMARY | 2022-04-10 15:00 | XMS_ITS | Encounter Summary ---
:1980 Author Organization [facility] Address [address] [place] [address] Care Team Providers Name Role Phone Qasim Meza P.A.-C. Primary Care Provider [phone] Reason for Visit Reason Onset Date Comments Med Refill 06/22/2017 Encounter Details Date Type Department Care Team Description 06/22/2017 Refill Department of Family Medicine, Qasim oakley P.A.-C. Med Refill [facility], in [address] [place] [phone] [place] [address] [place] [address] [phone] Social History Tobacco Use Types Packs/Day Years [...] you attend oriental orthodox or Never 2021 mormon services? 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 PCP - General 01/22/17 08/24/[address] [place] [phone] documented as of this encounter
--- OUTSIDE RECORDS SUMMARY | 2022-04-10 15:00 | XMS_ITS | Encounter Summary ---
:1980 Author Organization [facility] Address [address] [place] [address] Care Team Providers Name Role Phone Qasim Meza P.A.-C. Primary Care Provider [phone] Reason for Visit Reason Comments Follow-up Appointment Request (Routine) - Closed Specialty Diagnoses / Procedures Referred By Contact Refer red To Contact Pain Medicine Referral ID Status Reason Start Date Expiration Date Visits Requ ested Visits Authorized [id number] Closed 09/04/2017 03/03/2018 1 1 Encounter Details Date Type Department Care Team Description 10/08/2017 Office Visit Department of Physical Kenrick Grady, Pain Neck (Primary Dx); Medicine and M.D. Spondylosis Cervical Without Myelopathy; Rehabilitation in [facility], Pain Limb Generalized [place], [place] [address] [place] [address] [phone] Social History Tobacco Use Types Packs/Day Years [...] do you attend scientologist or Never 2021 anabaptist services? Do you belong to any clubs [...] or slept in a fdc (including now)? 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 - 10/08/2017 12:00 AM CST SUBJECTIVE CHIEF COMPLAINT/REASON FOR VISIT Neck pain, bilateral medial scapular border region pain, and intermittent bilateral upper extremity pain and paresthesias. HISTORY OF PRESENT ILLNESS Ms. Roberts is a very pleasant 36-year-old female who returns today in followup. She reports over the past month she has had pain that can occur in the pbzrv-shmplcp-ukbk-left medial scapular border region and can radiate into the neck. She can experience occasional shooting pains to the ysras-fovuure-cvir- left upper extremity as well with occasional tingling in the tips of the digits of the bilateral hands although that has not happened frequently. Frequently the pain in her neck and medial scapular border regions was bothering her to the greatest extent. She denies any focal weakness in her upperextremities, change in her bowel or bladder habits other than some urinary urgency and no fevers or chills. She has just started to work at [employer] in [place], has had 2 sessions of physical therapy to this point which she does think has been helpful as well has been working with a chiropractor in [place] at [facility]. OBJECTIVE PHYSICAL EXAMINATION General: Very pleasant 36-year-old female in no acute distress. Spine: Minus 1 right and left lateral cervical rotation. Spurling's is negative bilaterally. Tenderness over the mid cervical paraspinals as well as over the bilateral upper trapezius regions and medial scapular border regions bilaterally. Reflexes: Bilateral upper extremity muscle stretch reflexes are physiologic and symmetric. Plantar responses downgoing bilaterally. Sensation: Normal pinprick and light touch sensation through upper extremities. Strength: All major muscle groups of the bilateral upper extremities have normal and symmetric muscle strength, bulk and tone. ASSESSMENT / PLAN #1 Neck pain #2 Bilateral medial scapular border and upper trapezius pain, intermittent bilateral upper extremitypain and paresthesias Ms. Roberts has a normal neurologic examination today. The symptoms she can experience in her primarily right upper extremity could be consistent with right C7 radiculopathy although again she has a normal neurologic examination. The majority of her pain is located in the eworb-lusouhr-gwki-left medial scapular border region and bilateral upper trapezius regions and I feel that she has a significant component of myofascial pain. PLAN: 1. We are going to proceed today with x-rays of the cervical spine with Ms. Roberts's discomfort. 2. I am going to have Ms. Roberts continue to advance her current program at [employer] [facility] and I think that is an excellent program for her to be involved in and she is in agreement with this. 3. She will also continue with her palliative care specialist. 4. I am going to increase her gabapentin to 600 mg 3 times daily. She is currently using 300 mg 3 times daily. We went over in detail how to do this today and so I will have her do this over the courseof the next couple of weeks. 5. I will plan to see Ms. Roberts following physical therapy or sooner if she notes any worsening symptoms which we went over in detail today. She voiced agreement and understanding with this plan. Total time of 25 minutes, counseling and coordination of care time greater than 15 minutes. Job ID: [id number] DMARKER documented in this encounter Plan of Treatment Not on filedocumented as of this encounter Results DX Cervical Spine 2-3 Views (10/08/2017 11:54 AM BOARDMARKER) Anatomical Region Laterality Modality Cervical Spine N/A Computed Radiography Specimen (Source) Anatomical Collection Method Collection Time Re ceived Time Location / / Volume Laterality 10/08/2017 12:16 PM BOARDMARKER Impressions 10/08/2017 12:17 PM BOARDMARKER IMPRESSION: Straightening of the normal cervical lordosis. Slight retrolisthesis of C5 on C6. Probable small dorsal disc osteophyte complexes. Normal prevertebral soft tissues. Edentulous ma xilla and mandible. Narrative 10/08/2017 12:17 PM BOARDMARKER EXAM: DX CERVICAL SPINE 2-3 VIEWS Procedure Note Alexia Perez M.D. - 10/08/2017Forma tting of this note might be different from the original. EXAM: DX CERVICAL SPINE 2-3 VIEWS IMPRESSION: Straightening of the normal cervical lordosis. Slight retrolisthesis of C5 on C6. Probable small dorsal disc osteophyte complexes. Normal prevertebral soft tissues. Edentulous ma xilla and mandible. Kenrick Grady M.D. IMG DIAGNOSTIC IMAGING PROCE DURES documented in this encounter Visit Diagnoses Diagnosis Pain Neck - Primary Spondylosis Cervical Without Myelopathy Pain Limb Generalized Pain Neck Spondylosis Cervical Without Myelopathy documented in this encounter Additional Health Concerns Assessment Noted Time PHQ-9 Depression Total Score: 8 06/12/2016 10:45 AM CD T documented as of this encounter Care Teams Tapering Machine Operator Relationship Specialty Start Date End Date Qasim Meza P.A.-C. PCP - General 01/22/17 08/24/[address] [place] [phone] documented as of this encounter
--- OUTSIDE RECORDS SUMMARY | 2022-04-10 15:00 | XMS_ITS | Encounter Summary ---
:1980 Author Organization [facility] Address [address] [place] [address] Care Team Providers Name Role Phone Qasim Meza P.A.-C. Primary Care Provider [phone] Encounter Details Date Type Department Care Team Description 10/08/2017 Hospital Encounter Department of Kenrick Grady Pai n Neck; Radiology in M.D. Spondylosis Cervical Without Myelopathy [facility], [address] [place] [address] [address] [place] [phone] Social History Tobacco Use Types Packs/Day Years [...] do you attend orthodoxy or Never 2021 caodaism services? 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 promethazine Take 25 mg by mouth as 0 05/14/2014 (PHENERGAN) 25 mg needed for nausea. tablet busPIRone (for_BUSPAR) Take 1 tablet (30 mg 180 tablet 3 06/22/2018 30 mg tablet total) by mouth 2 (two) times a day. calcium Take 1 tablet by mouth 0 07/13/2013 carbonate-vitamin D3 daily. 500 mg(1,250mg) -400 unit tablet cholecalciferol Take 1 tablet (400 90 tablet 3 07/08/2017 0 04/27/2018 (cholecalciferol) 400 Units total) by mouth Unit tablet daily. cholecalciferol Take 1 tablet (400 90 tablet 3 07/31/2017 0 04/20/2018 (cholecalciferol) 400 Units total) by mouth Unit tablet daily. citalopram (CeleXA) 40 Take 1 tablet by mouth 0 0 03/12/2015 03/27/2020 mg tablet daily. CYANOCOBALAMIN, Inject 1,000 mcg 0 06/11/201706/2018 VITAMIN B-12, INJ intramuscularly every 30 (thirty) days. escitalopram (LEXAPRO) Take 1 tablet (20 mg 90 tablet 3 12/201706/05/2018 20 mg tablet total) by mouth daily. fluticasone Administer 2 sprays 16 g 11 08/05/201708/10 (for_FLONASE) 50 into each nostril mcg/actuation nasal daily. spray gabapentin 2 tabs po tid 180 capsule 2 10/08/2017 08/25/2018 (for_NEURONTIN) 300 mg capsule levETIRAcetam (KEPPRA) Take 1 tablet by mouth 0 0 01/27/2017 02/01/2018 500 mg tablet 2 (two) times a day. levothyroxine Take 1 tablet (75 mcg 90 tablet 3 06/22/2017 04/18/2018 (for_SYNTHROID, total) by mouth daily. LEVOTHROID) 75 mcg tablet lidocaine (LIDODERM) 5 Apply 1 patch 0 05/11/2017 06/08/2018 % patch topically daily. ondansetron (ZOFRAN) 8 Take 1 tablet by mouth 0 0 12/21/2015 03/27/2020 mg tablet as needed. vitamin-iron Take 1 capsule by 0 016 04/04/2020 fumarate-FA ( mouth 2 (two) times a MULTIVITAMINS) 28 mg day. iron- 800 mcg per tablet STRATTERA 80 mg Take 1 capsule (80 mg 90 capsule 3 8 06/05/2018 capsule total) by mouth daily. Diagnosis code attention deficit disorder. F 90.9 SUMAtriptan Take 1 tablet by mouth 0 05/13/2017 0 02/08/2018 (for_IMITREX) 100 mg once. tablet syringe, disposable, 1 1 each every 30 25 Syringe 1 09/14/19 18 08/26/2018 mL syringe (thirty) days. syringe, disposable, 1 1 Device by not 0 07/13/20 13 04/04/2020 mL syringe applicable route. traZODone Take 1 tablet (100 mg 90 tablet 3 08/06/2017 (for_DESYREL) 100 mg total) by mouth daily. tablet documented as of this encounter Plan of Treatment Not on filedocumented as of this encounter Procedures Procedure Name Priority Date/Time Associated Comments Diagnosis DX CERVICAL SPINE RAD - Routine 10/08/2017 11:54 Pain Neck Results for this 2-3 VIEWS (most inpatients AM SOFTBALL UMPIRE Spondylosis procedure a re in and all Cervical Without the results outpatients) Myelopathy section. documented in this encounter Results DX Cervical Spine 2-3 Views (10/08/2017 11:54 AM SOFTBALL UMPIRE) Anatomical Region Laterality Modality Cervical Spine N/A Computed Radiography Specimen (Source) Anatomical Collection Method Collection Time Re ceived Time Location / / Volume Laterality 10/08/2017 12:16 PM SOFTBALL UMPIRE Impressions 10/08/2017 12:17 PM SOFTBALL UMPIRE IMPRESSION: Straightening of the normal cervical lordosis. Slight retrolisthesis of C5 on C6. Probable small dorsal disc osteophyte complexes. Normal prevertebral soft tissues. Edentulous ma xilla and mandible. Narrative 10/08/2017 12:17 PM SOFTBALL UMPIRE EXAM: DX CERVICAL SPINE 2-3 VIEWS Procedure Note Alexia Perez M.D. - 10/08/2017Forma tting of this note might be different from the original. EXAM: DX CERVICAL SPINE 2-3 VIEWS IMPRESSION: Straightening of the normal cervical lordosis. Slight retrolisthesis of C5 on C6. Probable small dorsal disc osteophyte complexes. Normal prevertebral soft tissues. Edentulous ma xilla and mandible. Kenrick Grady M.D. IMDon DIAGNOSTIC IMAGING PROCE LAILA documented in this encounter Visit Diagnoses Diagnosis Pain Neck Spondylosis Cervical Without Myelopathy documented in this encounter Additional Health Concerns Assessment Noted Time PHQ-9 Depression Total Score: 8 06/12/2016 10:45 AM CD T documented as of this encounter Care Teams Sales Clerk Food Relationship Specialty Start Date End Date Qasim Meza P.A.-C. PCP - General 01/22/17 08/24/18 [address] [place] [phone] documented as of this encounter
--- OUTSIDE RECORDS SUMMARY | 2022-04-10 15:00 | XMS_ITS | Encounter Summary ---
:1980 Author Organization [facility] Address [address] [place] [address] Care Team Providers Name Role Phone Qasim Meza P.A.-C. Primary Care Provider [phone] Reason for Visit Reason Comments Med Refill Encounter Details Date Type Department Care Team Description 09/14/2017 Refill Department of Family Medicine, Qasim Ceja P.A.-C. Med Refill [facility], in [address] [place] [phone] [place] [address] [place] [address] [phone] Social History Tobacco Use Types Packs/Day Years [...] do you attend yarsani or Never 2021 scientologist services? 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 documented as of this encounter Miscellaneous Notes Telephone Encounter - Lauren Sidhu - 09/14/2017 3:14 PM CST Nurse Review: Pharmacy Communication Provider: Qasim Meza Medication: B12 Injection syringe Pharmacy Comment: Patient would like a 1 ml syringe OPERATOR documented in this encounter Plan of Treatment Not on filedocumented as of this encounter Visit Diagnoses Not on filedocumented in this encounter Additional Health Concerns Assessment Noted Time PHQ-9 Depression Total Score: 8 06/12/2016 10:45 AM CD T documented as of this encounter Care Teams Screen Tender Relationship Specialty Start Date End Date Qasim Meza P.A.-C. PCP - General 01/22/17 08/24/[address] [place] [phone] documented as of this encounter"
--- OUTSIDE RECORDS SUMMARY | 2022-04-10 15:00 | XMS_ITS | Encounter Summary ---
:1980 Author Organization [facility] Address [address] [place] [address] Care Team Providers Name Role Phone Qasim Meza P.A.-C. Primary Care Provider [phone] Encounter Details Date Type Department Care Team Description 10/14/2017 Orders Only Department of Family Qasim Meza Ca rdiac Vascular Disease Screening (Primary Dx); Medicine, [facility], in [address] [phone] [place], [place] [phone] (Work) [phone] Social History Tobacco Use Types Packs/Day Years [...] do you attend yazdanism or Never 2021 orthodox services? 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 PCP - General 01/22/17 08/24/[address] [place] [phone] documented as of this encounter
--- OUTSIDE RECORDS SUMMARY | 2022-04-10 15:00 | XMS_ITS | Encounter Summary ---
:1980 Author Organization [facility] Address [address] [place] [address] Care Team Providers Name Role Phone Qasim Meza P.A.-C. Primary Care Provider [phone] Reason for Visit Reason Comments Med Refill Encounter Details Date Type Department Care Team Description 04/18/2018 Refill Department of Family Medicine, Qasim Ceja P.A.-C. 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 - 04/19/2018 11:41 AM CDT Left patient a message stating refills done and will need to schedule an appointment prior to next refills. documented in this encounter Plan of Treatment Not on filedocumented as of this encounter Visit Diagnoses Not on filedocumented in this encounter Additional Health Concerns Assessment Noted Time PHQ-9 Depression Total Score: 8 06/12/2016 10:45 AM CD T documented as of this encounter Care Teams Sql Etl Developer Relationship Specialty Start Date End Date Qasim Meza P.A.-C. PCP - General 01/22/17 08/24/[address] [place] [phone] documented as of this encounter
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
--- OUTSIDE RECORDS SUMMARY | 2022-04-10 15:00 | XMS_ITS | Encounter Summary ---
:1980 Author Organization [facility] Address [address] [place] [address] Care Team Providers Name Role Phone Qasim Meza P.A.-C. Primary Care Provider [phone] Reason for Visit Reason Onset Date Comments Med Refill 08/06/2017 Trazodone Encounter Details Date Type Department Care Team Description 08/06/2017 Refill Department of [facility] Qasim Meza Me d Refill (Trazodone ) Medicine in [facility] [address] [phone] (Wo rk) Social History Tobacco Use Types [...] do you attend yarsani or Never 2021 church services? 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 PCP - General 01/22/17 08/24/[address] [place] [phone] documented as of this encounter
--- OUTSIDE RECORDS SUMMARY | 2022-04-10 15:00 | XMS_ITS | Encounter Summary ---
:1980 Author Organization [facility] Address [address] [place] [address] Care Team Providers Name Role Phone Qasim Meza P.A.-C. Primary Care Provider [phone] Encounter Details Date Type Department Care Team Description 04/30/2017 Hospital Encounter HX [facility] Michael Grady M.D. [address] [place] [address], [address] [place] [address] (Wo rk) Social History Tobacco Use Types [...] do you attend baptism or Never 2021 faith services? 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 promethazine (PHENERGAN) Take 25 mg by mouth 0 25 mg tablet as needed for nausea. atomoxetine (STRATTERA) Take 1 capsule by 0 04/1508/19/2017 80 mg capsule mouth every morning. busPIRone (for_BUSPAR) Take 1 tablet by 0 017 08/27/2017 30 mg tablet mouth 2 (two) times a day. calcium Take 1 tablet by 0 07/13/2013 10/07/19 22 carbonate-vitamin D3 500 mouth daily. mg(1,250mg) -400 unit tablet citalopram (CeleXA) 40 Take 1 tablet by 0 015 03/27/2020 mg tablet mouth daily. escitalopram (LEXAPRO) Take 1 tablet by 0 017 08/14/2017 20 mg tablet mouth daily. fluticasone Administer 2 sprays 0 06/12/201607/11 (for_FLONASE) 50 into affected mcg/actuation nasal nostril(s) daily. spray gabapentin Take 1 capsule by 0 01/27/2017 018 (for_NEURONTIN) 300 mg mouth 3 (three) times capsule a day. levETIRAcetam (KEPPRA) Take 1 tablet by 0 01/27/ 017 02/01/2018 500 mg tablet mouth 2 (two) times a day. levothyroxine Take 75 mcg by mouth 0 04/14/2017 1 08/22/2016 (for_SYNTHROID, daily. LEVOTHROID) 75 mcg tablet ondansetron (ZOFRAN) 8 Take 1 tablet by [...] documented as of this encounter Progress Notes Meri Grady M.D. - 04/30/2017 12:28 PM CDT [id number] CHIEF COMPLAINT/REASON FOR VISIT Follow up bilateral knee pain. HISTORY OF PRESENT ILLNESS Ms. Roberts returns today in followup. She reports that the bilateral knee intra-articular injections with Synvisc One she had performed at [facility] unfortunately were not overly helpful for her. She again describes pain that is located more in the left greater than right anterior knee. Also a couple weeks ago she was noticing increased pain in her left posterior knee and she noted a golf ball size lump although that has improved over the past week. She describes this as an achy, alternating with sharp discomfort that is located in the left anterior knee that can be painful for her especially when she is trying ambulate and at times it can feel warm to her with occasional swelling. She denies any catching, locking, or buckling of the left knee. PHYSICAL EXAMINATION GENERAL: Pleasant 36-year-old female in no acute distress. GAIT: Antalgic favoring the left lower extremity. KNEES: There is trace effusion present in the left knee without any warmth or erythema. Range of motion from just short of full extension to 125 degrees of flexion. There is tenderness to palpation over the medial and lateral joint lines as well as about the medial and lateral patellar facets. There is mild fullness in the left popliteal fossa consistent with popliteal cyst. Brianne's and bounce home cause pain in the anterior knee without a palpable click. IMPRESSION/REPORT/PLAN 1. Bilateral knee pain. 2. Bilateral knee degenerative joint disease. 3. Left popliteal cyst. Ms. Villas symptoms and examination are again are primarily consistent with bilateral patellofemoral pain and bilateral knee degenerative joint disease as being the cause of her discomfort. PLAN: 1. I am going have Ms. Roberts continue the exercises she was shown in physical therapy and I commended her on the excellent job she has been doing with respect to those exercises. 2. Ms. oRberts is limited with what she can from an oral NSAID perspective secondary to gastric bypass surgery. I think it would be worthwhile to try a Lidoderm patch at the left knee to see if this can be beneficial for her. If it is not, we could consider diclofenac topical solution. 3. Ms. Roberts will continue to use her patellofemoral support brace which she finds to be helpful. 4. If she finds that she has an increase in the left popliteal fullness, I think it would be reasonable to potentially consider a left popliteal cyst aspiration if that pain is as it was for her a couple of weeks ago. That has improved and likely she had a partial rupture of the popliteal cyst. Ms. Roberts voiced agreement and understanding of this plan. She will let us know she is progressing with the Lidoderm patch. Total time 25 minutes, counseling time greater than 15 minutes. Meri Grady M.D./caitlyn Electronically Signed By: MERI GRADY MD On: 05/05/2017 09:43 AM Modified by and Electronically Signed by: MERI GRADY MD On: 05/05/2017 09:43 AM Source: [facility] MHSDOLBEYNONRADSYS Document Id: [id number] documented in this encounter Nursing Notes Collin Anthony L.P.N. - 05/12/2017 1:51 PM CDT Prior authorization request Lidocaine Prior authorization request for Lidocaine completed through Cover My Meds, initiated by the pharmacy, [facility]. Time spent on form 25 minutes. Electronically Signed By: COLLIN ANTHONY LPN On: 05/12/2017 01:53 PM Source: [facility] POWERCHART Document Id: [id number] documented in this encounter Plan of Treatment Not on filedocumented as of this encounter Visit Diagnoses Not on filedocumented in this encounter Additional Health Concerns Assessment Noted Time PHQ-9 Depression Total Score: 8 06/12/2016 10:45 AM CD T documented as of this encounter Care Teams Peoplesoft Fscm Developer Relationship Specialty Start Date End Date Qasim Meza P.A.-C. PCP - General 01/22/17 08/24/[address] [place] [phone] documented as of this encounter
--- OUTSIDE RECORDS SUMMARY | 2022-04-10 15:00 | XMS_ITS | Encounter Summary ---
:1980 Author Organization [facility] Address [address] [place] [address] Care Team Providers Name Role Phone Unavailable Primary Care Provider Unavailable Encounter Details Date Type Department Care Team Description 11/13/2016 Hospital Encounter HX [facility] Michael Grady M.D. [address] [place] [address], [address] [place] [address] (Wo rk) Social History Tobacco [...] do you attend scientologist or Never 2021 taoist services? 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 spray ondansetron (ZOFRAN) 8 Take 1 tablet by [...] encounter Progress Notes Meri Grady M.D. - 11/13/2016 11:34 AM CDT [id number] CHIEF COMPLAINT/REASON FOR VISIT Follow up bilateral knee pain. HISTORY OF PRESENT ILLNESS Ms. Reid returns today in followup. Since I last saw her she was seen at [facility] and had MRIs performed of both knees and the right knee MRI showed focal areas of grade 2 to 3 chondromalacia of the medial femoral condyle and grade 1 to 2 patellofemoral chondromalacia. She also had MRI of her left knee performed which showed grade 2 chondromalacia of the medial femoral condyle and grade 2 patellar chondromalacia. Ms. Reid also had bilateral knee intra-articular injections with Synvisc-One performed on Thursday,November 10. She reports that her symptoms are unchanged since I saw her previously and again just hadthe injections performed on Thursday. PHYSICAL EXAMINATION GENERAL: Pleasant 36-year-old female in no acute distress. GAIT: Nonantalgic. MUSCULOSKELETAL: Knees: There is trace effusion present in the left knee and no effusion present in the right knee. There is no warmth or erythema about either knee today. IMPRESSION/REPORT/PLAN 1. Bilateral knee pain. 2. Left knee patellofemoral degenerative joint disease. 3. Low back pain. 4. Intermittent right lower extremity pain. PLAN: 1. We will see how Ms. Reid progresses following the bilateral knee intra- articular injections with Synvisc One. 2. I am going have her return to her exercises that she was shown previously in physical therapy, especially for her core strength and stability exercises, as well as her hip abductor and quadriceps strengthening exercises next week following the procedure that she had performed earlier this week. 3. Ms. Reid will be in contact with me if she has any worsening or worrisome symptoms which we went over in detail today. She voiced agreement and understanding with this plan. Meri Grady M.D./caitlyn Electronically Signed By: MERI GRADY MD On: 11/17/2016 10:26 AM Modified by and Electronically Signed by: MERI GRADY MD On: 11/17/2016 10:26 AM Source: [facility] MHSDOLBEYNONRADSYS Document Id: [id number] documented in this encounter Nursing Notes Collin Anthony L.P.N. - 11/24/2016 3:05 PM CDT Prior authoriztion request Verapamil Prior authorization request for Verapamil completed through Cover My Meds, initiated by the pharmacy, [place] [id number]. Time spent on form 22 minutes. Electronically Signed By: COLLIN ANTHONY LPN On: 11/24/2016 03:07 PM Source: [facility] POWERCHART Document Id: [id number] documented in this encounter Miscellaneous Notes Miscellaneous - Meri Grady M.D. - 11/13/2016 12:21 PM CDT Ambulatory Patient Summary [address] [id number] Visit Information Name: MUKUL REID [facility] Number: [id number] Current Date: 11/13/2016 12:21:14 Physicians Attending Provider: MERI GRADY MD Primary Care Provider: OSEAS WILSON PA-C [...] once a day fluticasone nasal (Flonase) 1 Austin(s), Nasal, once a day fluticasone nasal (Flonase 50 mcg/inh nasal spray) 2 Austin(s), Nasal, once a day gabapentin (gabapentin 300 mg oral capsule) 1 cap, Oral, once a day levETIRAcetam (Keppra 500 mg oral tablet) 1 Tablet(s), Oral, two times a day levothyroxine (levothyroxine 75 mcg (0.075 mg) oral tablet) 75 mcg, Oral, once a day multivitamin, ( Multivitamins with Vitamin B Complex, Vitamin C, Minerals and L-Methylfolate oral capsule) 1 cap, Oral, once a day ondansetron (ondansetron 8 mg oral tablet) 1 Tablet(s), Oral, three times a day as needed SUMAtriptan (SUMAtriptan 100 mg oral tablet) 1 Tablet(s), Oral, once listed in doc by history traZODone (traZODone 100 mg oral tablet) 1 Tablet(s), Oral, once a day verapamil (verapamil 120 mg/24 hours oral capsule, extended release) 1 cap, Oral, once a day Stop Taking the Following Medications: Medication list as of 11-13-16 12:21 Attention: If you have any medications at home that are not on this list, DO NOT take them until youcontact your provider for clarification. Give a copy of your medication list to your primary care provider. Update your medication list any time medications or doses are changed and carry your medication list at all times in case of emergency. Electronically Signed By: MREI GRADY MD Signed On:13-NOV-2016 12:20:56 Your Allergies & Intolerances Substance Reaction Symptoms [...] Use Pers Hx Active 12/18/15 quit 1997 Seizure (SZ) NOS Active Your Upcoming Appointments Date Time Location [...] if you dont have one. Go to [email or web address] and click on Create Your Account. Then, follow the directions to complete the online form. Youll be asked for your [facility] number which you can find at the top of this document. Your Goals/Additional instructions: Source: [facility] POWERCHART Document Id: [id number] Miscellaneous - Meri Grady M.D. - 11/13/2016 12:21 PM CDT Ambulatory Discharge Medication List [address] [id number] Visit Information Name: MUKUL REID [facility] Number: [id number] Current Date: 11/13/2016 12:21:13 Attending Provider: MERI GRADY MD Primary Care Provider: OSEAS WILSON PA-C [...] once a day fluticasone nasal (Flonase) 1 Austin(s), Nasal, once a day fluticasone nasal (Flonase 50 mcg/inh nasal spray) 2 Austin(s), Nasal, once a day gabapentin (gabapentin 300 mg oral capsule) 1 cap, Oral, once a day levETIRAcetam (Keppra 500 mg oral tablet) 1 Tablet(s), Oral, two times a day levothyroxine (levothyroxine 75 mcg (0.075 mg) oral tablet) 75 mcg, Oral, once a day multivitamin, ( Multivitamins with Vitamin B Complex, Vitamin C, Minerals and L-Methylfolate oral capsule) 1 cap, Oral, once a day ondansetron (ondansetron 8 mg oral tablet) 1 Tablet(s), Oral, three times a day as needed SUMAtriptan (SUMAtriptan 100 mg oral tablet) 1 Tablet(s), Oral, once listed in doc by history traZODone (traZODone 100 mg oral tablet) 1 Tablet(s), Oral, once a day verapamil (verapamil 120 mg/24 hours oral capsule, extended release) 1 cap, Oral, once a day Stop Taking the Following Medications: Medication list as of 11-13-16 12:21 Attention: If you have any medications at home that are not on this list, DO NOT take them until youcontact your provider for clarification. Give a copy of your medication list to your primary care provider. Update your medication list any time medications or doses are changed and carry your medication list at all times in case of emergency. Electronically Signed By: MERI GRADY MD Signed On:13-NOV-2016 12:20:56 Additional Information: Source: [facility] POWERCHART Document Id: [id number] Miscellaneous - Magaly Dalal, LRafalP.N. - 11/13/2016 11:51 AM CDT Adult Director Of Cardiology Service Line Intake/History Adult Director Of Cardiology Service Line Intake/History Entered On: 11/13/2016 11:51 CDT Performed On: 11/13/2016 11:51 CDT by MAGALY DALAL LPN Intake Height : 165 cm(Converted to: 5 ft 5 inch(es), 65 inch(es)) Actual Weight : 91.65 kg(Converted to: 202 lb 1 oz) Dosing Weight Clinic : 91.65 kg Clinic BSA : 2.05 Body Mass Index : 33.66 kg/m2 MAGALY DALAL LPN - 11/13/2016 11:51 CDT General Info Information Given By : Patient Languages : Barbadian Is Patient Female and 13-50 no hysterectomy : No MAGALY DALAL LPN - 11/13/2016 11:51 CDT Subjective Pain Symptoms : No MAGALY DALAL LPN - 11/13/2016 11:51 CDT Dependent Habits Exposure to Tobacco Smoke : Other: former Smoking Status : Former smoker Tobacco 2A : Yes Tobacco Use/Currently Using : No Tobacco Use/Last 30 Days : No Tobacco Use/Last 12 months : No Tobacco Last Use/Year : 1997 MAGALY DALAL LPN - 11/13/2016 11:51 CDT Caffeine Use Grid Caffeine Use : Current Type : Chocolate, Coffee, Soft drinks Frequency : Daily Amount : 1 cup, monsters 4 per day Last Use : 06/26/2016 MAGALY DALAL LPN - 11/13/2016 11:51 CDT Recreational Drug Use Grid Drug Use : None MAGALY DALAL LPN - 11/13/2016 11:51 CDT Source: [facility] POWERCHART Document Id: [id number] CDT!31 documented in this encounter Plan of Treatment Not on filedocumented as of this encounter Visit Diagnoses Not on filedocumented in this encounter Additional Health Concerns Assessment Noted Time PHQ-9 Depression Total Score: 8 06/12/2016 10:45 AM CD T documented as of this encounter
--- OUTSIDE RECORDS SUMMARY | 2022-04-10 15:00 | XMS_ITS | Encounter Summary ---
:1980 Author Organization [facility] Address [address] [place] [address] Care Team Providers Name Role Phone Qasim Meza P.A.-CRafal Primary Care Provider Encounter Details Date Type Department Care Team Description 11/26/2017 Orders Only [facility], Epileps y Seizure Not [facility]. Intractable Without [address] Status Epilepticus DILIA BACK [place], [place] (FORMERLY [facility]) [phone] Social History Tobacco Use Types Packs/Day Years [...] do you attend congregation or Never 2021 christianity services? 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 PCP - General 01/22/17 08/24/[address] [place] [phone] documented as of this encounter
--- OUTSIDE RECORDS SUMMARY | 2022-04-10 15:00 | XMS_ITS | Encounter Summary ---
:1980 Author Organization [facility] Address [address] [place] [address] Care Team Providers Name Role Phone Qasim Meza P.A.-C. Primary Care Provider [phone] Encounter Details Date Type Department Care Team Description 07/07/2017 Abstract Department of Family Qasim Meza, Medicine, [facility], PMaki Campos in [facility] [address] [phone] [place] [address] [phone] Social History Tobacco Use Types Packs/Day Years [...] do you attend catholic or Never 2021 shinto services? 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 PCP - General 01/22/17 08/24/18 [address] [place] [phone] documented as of this encounter
--- OUTSIDE RECORDS SUMMARY | 2022-04-10 15:00 | XMS_ITS | Encounter Summary ---
:1980 Author Organization [facility] Address [address] [place] [address] Care Team Providers Name Role Phone Qasim Meza P.A.-C. Primary Care Provider [phone] Reason for Visit Reason Comments Med Refill Encounter Details Date Type Department Care Team Description 09/03/2017 Refill Department of Family Medicine, Qasim Ceja P.A.-C. Med Refill [facility], in [address] [place] [phone] [place] [address] [place] [address] [phone] Social History Tobacco Use Types Packs/Day Years [...] do you attend judaism or Never 2021 yazidi services? 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 - 09/03/2017 3:48 PM CST Pharmacy notified of Qasim' response. ING CONSULTANT Telephone Encounter - Eloisa Valdez R.N. - 09/03/2017 3:46 PM CST Images from the original note were not included. Qasim Meza P.A.-C. ??You 7 minutes ago (3:38 PM) I already he ordered her the 400 international units tablets. ??This should be sufficient. ING CONSULTANT Telephone Encounter - Teresa Vazquez - 09/03/2017 10:27 AM CST Nurse review: Unable to propose medication; Discrepancy - Dose not on med list. Primary Provider: Nadia Meza Name of medication: Vitamin D3 Strength: 2000 unit cap Frequency: Take one capsule by mouth once daily. Quantity: 30 Refills: ___ Last Refill: 02/17/2017 Pharmacy: ING CONSULTANT documented in this encounter Plan of Treatment Not on filedocumented as of this encounter Visit Diagnoses Not on filedocumented in this encounter Additional Health Concerns Assessment Noted Time PHQ-9 Depression Total Score: 8 06/12/2016 10:45 AM CD T documented as of this encounter Care Teams Instrument Setter Relationship Specialty Start Date End Date Qasim Meza P.A.-C. PCP - General 01/22/17 08/24/18 [address] [place] [phone] documented as of this encounter
--- OUTSIDE RECORDS SUMMARY | 2022-04-10 15:00 | XMS_ITS | Encounter Summary ---
:1980 Author Organization [facility] Address [address] [place] [address] Care Team Providers Name Role Phone Qasim Meza P.A.-C. Primary Care Provider [phone] Encounter Details Date Type Department Care Team Description 08/17/2017 Refill Department of Family Medicine, Qasim Ceja P.A.-C. [facility], in [address] [place] [phone] [place] [address] [place] [address] [phone] Social History Tobacco Use Types Packs/Day Years [...] do you attend taoism or Never 2021 pentecostalism services? 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 PCP - General 01/22/17 08/24/[address] [place] [phone] documented as of this encounter
--- OUTSIDE RECORDS SUMMARY | 2022-04-10 15:00 | XMS_ITS | Encounter Summary ---
:1980 Author Organization [facility] Address [address] [place] [address] Care Team Providers Name Role Phone Qasim Meza P.A.-C. Primary Care Provider [phone] Encounter Details Date Type Department Care Team Description 08/20/2017 Orders Only Department of Family Qasim Meza, Medicine, [facility], P.ARafal -CRafal in [facility] 225 [facility] [address] [place] [address] [place] [address] [phone] Social History Tobacco Use Types Packs/Day Years [...] do you attend uatsdin or Never 2021 restorationism services? 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 PCP - General 01/22/17 08/24/[address] [place] [phone] documented as of this encounter
--- OUTSIDE RECORDS SUMMARY | 2022-04-10 15:00 | XMS_ITS | Encounter Summary ---
:1980 Author Organization [facility] Address [address] [place] [address] Care Team Providers Name Role Phone Qasim Meza P.A.-C. Primary Care Provider [phone] Reason for Visit Reason Onset Date Comments RX prior auth 06/26/2017 Encounter Details Date Type Department Care Team Description 06/26/2017 Clinical Communication Department of Kenrick Grady, RX prior auth Occupational Medicine M.DRafal in [address] [place] [phone] Social History Tobacco Use Types Packs/Day Years [...] do you attend jain or Never 2021 christianity services? 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 ALION FIRE CHIEF Telephone Encounter - Tamera Jung - 06/26/2017 11:01 AM CST [facility] is calling about a prior auth for an RX . Please call back Miller [phone] ALION FIRE CHIEF documented in this encounter Plan of Treatment Not on filedocumented as of this encounter Visit Diagnoses Not on filedocumented in this encounter Additional Health Concerns Assessment Noted Time PHQ-9 Depression Total Score: 8 06/12/2016 10:45 AM CD T documented as of this encounter Care Teams Community Engagement Leader Relationship Specialty Start Date End Date Qasim Meza P.A.-C. PCP - General 01/22/17 08/24/[address] [place] [phone] documented as of this encounter
--- OUTSIDE RECORDS SUMMARY | 2022-04-10 15:00 | XMS_ITS | Encounter Summary ---
:1980 Author Organization [facility] Address [address] [place] [address] Care Team Providers Name Role Phone Qasim Meza P.A.-C. Primary Care Provider [phone] Encounter Details Date Type Department Care Team Description 04/23/2018 Abstract Department of Family Medicine in Provider , Historical [place] M[place]en n [address] [phone] [...] or relatives? How often do you attend zoroastrianism or Never 2021 jewish services? 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 HM PAP SMEAR Routine 03/29/2012 Results for thi s procedure are in the resu lts section. documented in this encounter Results HM PAP SMEAR (09/12/2016) [employer] gist Method Time Signature HM Pap smear See scanned OTHER report. (SPECIFY IN POOL LIFEGUARD) Ordering Provider External M.D. HEALTH MAINTENANCE Performing Organization Address City/State/ZIP Code Phon e Number OTHER (SPECIFY IN POOL LIFEGUARD) HM PAP SMEAR (03/29/2012) [employer] gist Method Time Signature HM Pap smear See scanned OTHER report. (SPECIFY IN POOL LIFEGUARD) Ordering Provider External M.D. HEALTH MAINTENANCE Performing Organization Address City/State/ZIP Code Phon e Number OTHER (SPECIFY IN POOL LIFEGUARD) documented in this encounter Visit Diagnoses Not on filedocumented in this encounter Additional Health Concerns Assessment Noted Time PHQ-9 Depression Total Score: 8 06/12/2016 10:45 AM CD T documented as of this encounter Care Teams Preschool Program Director Relationship Specialty Start Date End Date Qasim Meza P.A.-C. PCP - General 01/22/17 08/24/[address] [place] [phone] documented as of this encounter
--- OUTSIDE RECORDS SUMMARY | 2022-04-10 15:00 | XMS_ITS | Encounter Summary ---
:1980 Author Organization [facility] Address [address] [place] [address] Care Team Providers Name Role Phone Qasim Meza P.A.-C. Primary Care Provider [phone] Reason for Visit Reason Onset Date Comments Med Refill 09/14/2017 [facility] in [place] called. They would like a phone call to approve the generic form of Strattera. [phone] ext [phone] Encounter Details Date Type Department Care Team Description 09/14/2017 Clinical Communication Department of Simon Meza ([facility] Medicine, Qasim, Pharmacy in [facility], P.[facility].-[facility]. [place] called. in [place], [address] [facility] They would like a [place], [place] phone call to [address] [place] [phone] approve the generic [facility] [place] [phone] form of Stratt era. [phone] (Work) [phone] Social History Tobacco Use Types Packs/Day Years [...] do you attend restorationism or Never 2021 mosque services? 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 - 09/14/2017 4:29 PM HOME CARE ADMINISTRATOR Pharmacy is aware. Thank you. CARE ADMINISTRATOR Telephone Encounter - Qasim Meza P.A.-C. - 09/14/2017 3:13 PM HOME CARE ADMINISTRATOR I am okay with the generic Strattera. Will you please call the pharmacy? CARE ADMINISTRATOR Telephone Encounter - Dianne Roche - 09/14/2017 2:16 PM HOME CARE ADMINISTRATOR [facility] in [place] called. They would like a phone call to approve the generic form of Strattera. [phone] ext [phone] CARE ADMINISTRATOR Telephone Encounter - Shyann Landry R.N. - 09/14/2017 1:45 PM CST Please see message CARE ADMINISTRATOR Telephone Encounter - aTmera Jung - 09/14/2017 12:38 PM CST The patient said that she needs to have the refill for her ADHD med Strattera 80mg she can only havethe generic from because her insurance will only cover that [facility] in [place] CARE ADMINISTRATOR documented in this encounter Plan of Treatment Not on filedocumented as of this encounter Visit Diagnoses Not on filedocumented in this encounter Additional Health Concerns Assessment Noted Time PHQ-9 Depression Total Score: 8 06/12/2016 10:45 AM CD T documented as of this encounter Care Teams Ball Mill Operator Relationship Specialty Start Date End Date Qasim Meza P.A.-C. PCP - General 01/22/17 08/24/[address] [place] [phone] documented as of this encounter
--- OUTSIDE RECORDS SUMMARY | 2022-04-10 15:01 | XMS_ITS | Encounter Summary ---
:1980 Author Organization [facility] Address [address] [place] [id number] Care Team Providers Name Role Phone Unavailable Primary Care Provider Unavailable Encounter Details Date Type Department Care Team Description 12/21/2015 Hospital Encounter HX [facility] Akhil Wilson P.A.-C. [address] [place] [address] (Wo rk) Social History Tobacco Use Types Packs/Day Years Used Date Smoking Tobacco: Never Assessed Alcohol Habits Answer Date Recorded How often [...] do you attend rastafarian or Never 2021 roman catholic services? 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 encounter Last Filed Vital Signs Vital Sign Reading Time Taken Comments Blood Pressure 122/88 12/21/2015 10:22 AM CDT Pulse 87 12/21/2015 10:15 AM CDT Temperature - - Respiratory Rate 16 12/21/2015 10:15 AM CDT Oxygen Saturation - - Inhaled Oxygen Concentration - - Weight 85.5 kg (188 lb 7.9 oz) 12/21/2015 10:15 AM CDT Height 165 cm (5' 4.96) 12/21/2015 10:22 AM CDT Body Mass Index 31.4 12/21/2015 10:15 AM CDT documented in this encounter Medications at Time of Discharge Medication Sig Dispensed Refills Start Date End Date promethazine (PHENERGAN) Take 25 mg by mouth 0 25 mg tablet as needed for nausea. calcium Take 1 tablet by 0 07/13/2013 10/07/19 22 carbonate-vitamin D3 500 mouth daily. mg(1,250mg) -400 unit tablet citalopram (CeleXA) 40 Take 1 tablet by 0 015 03/27/2020 mg tablet mouth daily. ondansetron (ZOFRAN) 8 Take 1 tablet by 0 016 03/27/2020 mg tablet mouth as needed. vitamin-iron Take 1 capsule by 0 016 04/04/2020 fumarate-FA ( mouth 2 (two) times a MULTIVITAMINS) 28 mg day. iron- 800 mcg per tablet syringe, disposable, 1 1 Device by not 0 07/13/20 13 04/04/2020 mL syringe applicable route. documented as of this encounter Progress Notes Oseas Wilson P.A.-C. - 12/21/2015 10:05 AM CDT [id number] CHIEF COMPLAINT/REASON FOR VISIT Follow up of multiple issues. HISTORY OF PRESENT ILLNESS Gricelda is a 35-year-old female who recently had a seizure. She initially had a sinus infection and was treated with antibiotics. Her symptoms did not improve so she was switched to doxycycline. After a couple days of this she developed a seizure. She also had been off of her other medications because she ran out of them. These included Strattera, verapamil, citalopram and levothyroxine. She had been out of these for about a month. She was seen in the emergency room. She had an elevated white count when she had this seizure and she was diagnosed with pneumonia. She was discharged on the doxycycline. She has been avoiding driving. She followed up with Dr. Napier the next day. She has had no further seizure activity. She has been tired although she admits she has had a hard time sleeping. They have held on the Strattera because of the potential for seizures with this medication but restarted her other medications. Interestingly her TSH was low normal in the emergency room and she had been off of herthyroid medicine for about a month. In general, other than her coughing and her fatigue and insomnia, she feels like she was stable and not getting any worse. She has not had any further seizure activity. She did have an evaluation with lab work and a CT scan in the emergency room. She has an appointment with Dr. Morales in about a month and a half. VITAL SIGNS Noted in the electronic medical record. PHYSICAL EXAMINATION GENERAL: She appears in no acute distress. ENT: TMs are not erythematous. Throat no erythema. NECK: No lymphadenopathy. No thyroid masses. EYES: Pupils equal, round and reactive to light. HEART: Regular rate and rhythm. No murmurs. LUNGS: A little wheeze in the right lower lobe. Otherwise clear to auscultation. IMPRESSION/REPORT/PLAN 1. Seizure disorder. She did have 1 seizure. It was apparently unprovoked although there was quite abit going on. She was off of many of her regular medications and she was recently started on antibiotics. I do not see any obvious abnormality here but certainly there were many changes going on. Carli pulido, at this point, I talked about avoiding a dangerous situations in case she would have another seizure. She is going to follow up as scheduled with Dr. Morales. She will continue to avoid driving atthis point and discuss this further when she sees Dr. Morales. I am going to have her do an electroencephalogram prior to her visit with Dr. Morales. Any further questions or problems, she will let us know. 2. Attention-deficit/hyperactivity disorder. She used to see a psychiatrist up in the [facility] but hasnot seen her anymore. She was on Strattera, verapamil and citalopram for this as well as her other mental health issues. We are going to hold on the Strattera. I am going to switch her from citalopram to Lexapro because of the risk for QT prolongation with citalopram at doses greater than 20 mg a day.She is in agreement with this plan. I did encourage her to follow up with a psychiatrist again. She is going to check to see who is in her network. 3. Hypothyroidism. Interestingly her TSH was normal after being off the medication for a month. Now she is back on it. In 1 month I am going to have her come back and draw a TSH. I will see her back tosee how she is doing as well as her response to the Lexapro. 4. Insomnia. This has been an ongoing issue. The Strattera may have been controlling her anxiety andthis may have been helping her sleep better. I do not want to restart the Strattera at this point. Kunal going to give her some Ambien to try to see if this helps with her sleeping. Will use 5 mg at night. She had been on trazodone but did not think it worked very well. Total time spent today with Gricelda was 30 minutes, of which, 20 were in coordination of care and [id number] counseling. Oseas Wilson PA-C/caitlyn Electronically Signed By: OSEAS WILSON PA-C On: 12/21/2015 12:45 PM Source: [facility] MHSDOLBEYNONRADSYS Document Id: [id number] documented in this encounter Miscellaneous Notes Telephone Encounter - Conversion, Historical Provider Ser - 12/24/2015 4:23 PM CDT *Phone Message/ Derrick Document Contains Addenda Addendum by LATONIA ANTHONY LPN on December 26, 2015 08:57:17 CDT Per prior authorization request, states no prior authorization needed. Order has been faxed to [facility]. Addendum by SAKINA JENSEN LPN on December 24, 2015 16:44:29 CDT From: SAKINA JENSEN LPN ( [facility] Nurse) To: LATONIA ANTHONY LPN; [facility] Nurse; Sent: 12/24/2015 16:44:29 CDT Subject: FW: *Phone Message/ Derrick From: LAURA GRIFFITHS ([facility] 2W Nurse) To: [facility]rick Nurse; Sent: 12/24/2015 16:23:02 CDT Subject: *Phone Message/ Derrick Caller is: ( x ) Patient ( ) Mother ( ) Father ( ) Spouse ( ) Daughter ( ) Son ( ) Pharmacy ( ) Other: Physician: Patient MRN #: Reason for Call: Message: Pt waiting to hear if she needs a prior auth on a procedure. Please call her at [phone] Advice/Action: Source used: ( ) Verbalizes understanding of instructions ( ) Instructed to call back if symptoms worsen or do not resolve ( ) Refused to see provider ( ) Appointment Scheduled ( ) OK to leave message on voice mail ( ) Patient told to expect return call: ( ) today ( ) tomorrow ( ) next work day ( ) Patient's email ( ) Patient told physician out of office, will call upon return call on ( ) ( ) Patient told physician out of office, routed to other physician ( ) Other ( ) Call back telephone number ( ) Call back cell phone number ( ) Source: [facility] POWERCHART Document Id: [id number] Miscellaneous - Oseas Wilson P.A.-C. - 12/21/2015 11:45 AM CDT Ambulatory Patient Summary [address] [id number] Visit Information Name: GRICELDA REID [facility] Number: [id number] Current Date: 12/21/2015 11:45:00 Physicians Attending Provider: OSEAS WILSON PA-C Primary Care Provider: OSEAS WILSON PA-C GRICELDA REID has been given the following list [...] Indications/Special Instructions/Comments/Notes for Patient Medication Changes/Routing atomoxetine (Strattera) Oral, once a day (in the morning) cyanocobalamin (Vitamin B12 1000 mcg/mL injectable solution) 1,000 mcg, Intramuscular, once a month doxycycline (doxycycline hyclate 100 mg oral tablet) 1 Tablet(s), Oral, two times a day on day three escitalopram (Lexapro 20 mg oral tablet) 1 Tablet(s), Oral, once a day New Routed to [address] [id number] fluticasone nasal (Flonase) 1 Penelope(s), Nasal, once a day levothyroxine (levothyroxine 75 mcg (0.075 mg) oral tablet) 75 mcg, Oral, once a day multivitamin, ( Multivitamins with Vitamin B Complex, Vitamin C, Minerals and L-Methylfolate oral capsule) 1 cap, Oral, once a day ondansetron (ondansetron 8 mg oral tablet) 1 Tablet(s), Oral, three times a day as needed SUMAtriptan (SUMAtriptan 100 mg oral tablet) 1 Tablet(s), Oral, once verapamil (verapamil 120 mg/24 hours oral capsule, extended release) 1 cap, Oral, once a day Routed to [address] [phone] zolpidem (Ambien 5 mg oral tablet) 1 Tablet(s), Oral, once a day (at bedtime) x 30 day(s) New Routedto Printer Stop Taking the Following Medications: Medication list as of 12-21-15 11:45 Attention: If you have any medications at home that are not on this list, DO NOT take them until youcontact your provider for clarification. Give a copy of your medication list to your primary care provider. Update your medication list any time medications or doses are changed and carry your medication list at all times in case of emergency. Electronically Signed By: OSEAS WILSON PA-C Signed On:21-DEC-2015 11:44:57 Your Allergies & Intolerances Substance Reaction Symptoms [...] Tobacco Use Pers Hx Active 12/18/15 quit 1998 Seizure (SZ) NOS Active Your Upcoming Appointments Date Time Location Provider 01/22/2016 10:00 [facility] 01/24/2016 10:00 [facility] Oseas Michelle 02/08/2016 09:15 [facility] Neurology Andrew FLORES, James Malhotra Attention: Contact your local Clinic if further [...] if you dont have one. Go to [email or web address] and click on Create Your Account. Then, follow the directions to complete the online form. Youll be asked for your [facility] number which you can find at the top of this document. Your Goals/Additional instructions: Source: [facility] POWERCHART Document Id: [id number] Miscellaneous - Oseas Wilson P.A.-C. - 12/21/2015 11:45 AM CDT Ambulatory Discharge Medication List [address] [id number] Visit Information Name: GRICELDA REID [facility] Number: [id number] Visit Date: 12/21/2015 11:44:59 Attending Provider: OSEAS WILSON PA-C Primary Care Provider: OSEAS WILSON PA-C GRICELDA REID has been given the following list of medications: Your Medications It is important to take your medications as directed. Use a pill box or chart to help remind you to take your medications. Please let your doctor or nurse know if you have problems taking your medications. Medication/Strength How to Take Indications/Special Instructions/Comments/Notes for Patient Medication Changes/Routing atomoxetine (Strattera) Oral, once a day (in the morning) cyanocobalamin (Vitamin B12 1000 mcg/mL injectable solution) 1,000 mcg, Intramuscular, once a month doxycycline (doxycycline hyclate 100 mg oral tablet) 1 Tablet(s), Oral, two times a day on day three escitalopram (Lexapro 20 mg oral tablet) 1 Tablet(s), Oral, once a day New Routed to [address] [phone] fluticasone nasal (Flonase) 1 Penelope(s), Nasal, once a day levothyroxine (levothyroxine 75 mcg (0.075 mg) oral tablet) 75 mcg, Oral, once a day multivitamin, ( Multivitamins with Vitamin B Complex, Vitamin C, Minerals and L-Methylfolate oral capsule) 1 cap, Oral, once a day ondansetron (ondansetron 8 mg oral tablet) 1 Tablet(s), Oral, three times a day as needed SUMAtriptan (SUMAtriptan 100 mg oral tablet) 1 Tablet(s), Oral, once verapamil (verapamil 120 mg/24 hours oral capsule, extended release) 1 cap, Oral, once a day Routed to [address] [place], [place] [phone] zolpidem (Ambien 5 mg oral tablet) 1 Tablet(s), Oral, once a day (at bedtime) x 30 day(s) New Routedto Printer Stop Taking the Following Medications: Medication list as of 12-21-15 11:45 Attention: If you have any medications at home that are not on this list, DO NOT take them until youcontact your provider for clarification. Give a copy of your medication list to your primary care provider. Update your medication list any time medications or doses are changed and carry your medication list at all times in case of emergency. Electronically Signed By: OSEAS WILSON PA-C Signed On:21-DEC-2015 11:44:57 Additional Information: Source: [facility] POWERCHART Document Id: [id number] Telephone Encounter - Latonia Anthony LRafalP.N. - 12/21/2015 11:06 AM CDT EEG prior authorization [facility] Document Contains Addenda Addendum by LATONIA ANTHONY LPN on December 26, 2015 08:57:45 CDT Noted, order has been faxed to [facility]. Addendum by NERI BLISS on December 25, 2015 10:49:00 CDT From: NERI BLISS ([facility] Legal Affairs/Radiology [facility]) To: LATONIA ANTHONY LPN; Sent: 12/25/2015 10:49:00 CDT Subject: RE: EEG prior authorization [facility] No auth needed From: LATONIA ANTHONY LPN To: [facility] [employer]/Prior Authorizations; [facility] Legal Affairs/Radiology [facility]; Sent: 12/21/2015 11:06:48 CDT Subject: EEG prior authorization [facility] Patient Referred to Provider or Facility :_[facility] Ordering Provider: Lesli Wilson PAC Appointment Date ( if known ) :_TBD imaging Service Ordered: (list CPT code or body part to be scanned) _ W/ Contrast W/O contrast W/O Contrast followed by with CT/CTA MRI MRA PET [facility] Study Other : ( List) : EEG Sleep Deprived. Diagnosis ( CPT code if Known) : Pseudo Seizure Injury related ____yes or _X__ NO if yes, date and type of injury: Source: [email or web address] Document Id: [id number] Alex - Latonia Anthony L.P.N. - 12/21/2015 10:22 AM CDT Ambulatory Vitals Height Weight Ambulatory Vitals Height Weight Entered On: 12/21/2015 10:23 CDT Performed On: 12/21/2015 10:22 CDT by LATONIA ANTHONY LPN Vitals/Ht/Wt Systolic Blood Pressure : 122 mmHg Diastolic Blood Pressure : 88 mmHg NIBP Mean : 99 mmHg BP Location : Right upper extremity Blood Pressure Cuff Size : Large Height : 165 cm(Converted to: 5 ft 5 inch(es), 65 inch(es)) LATONIA ANTHONY LPN - 12/21/2015 10:22 CDT Source: [facility] [employer] Document Id: [id number] CDT!8 Alex - Latonia Anthony L.P.N. 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 Entered On: 12/21/2015 10:18 CDT Performed On: 12/21/2015 10:15 CDT by LATONIA ANTHONY LPN Intake Chief Complaint : follow up related to wicho Onset of Symptoms : 12/13 - 12/14 night Temperature Core : 36.9 DegC(Converted to: 98.4 DegF) Peripheral Pulse Rate : 87 /min Respiratory Rate : 16 /min Systolic Blood Pressure : 130 mmHg Diastolic Blood Pressure : 90 mmHg (HI) NIBP Mean : 103 mmHg BP Location : Right upper extremity Blood Pressure Cuff Size : Large SpO2 : 98 % Oxygen Therapy : Room air Height : 165 cm(Converted to: 5 ft 5 inch(es), 65 inch(es)) Actual Weight : 85.5 kg(Converted to: 188 lb 8 oz) Weight Source : Standing scale Dosing Weight Clinic : 85.5 kg Clinic BSA : 1.98 Body Mass Index : 31.4 kg/m2 LATONIA ANTHONY LPN 12/21/2015 10:15 CDT General Info Information Given By : Patient, Spouse Languages : Urdu Is Patient Female and 13-50 no hysterectomy : No LATONIA ANTHONY LPN 12/21/2015 10:15 CDT Subjective Pain Symptoms : Yes LATONIA ANTHONY LPN 12/21/2015 10:15 CDT Pain Scale Pain Scale Verbal 0-10 : Open LATONIA ANTHONY LPN 12/21/2015 10:15 CDT Pain Pain Assessment Grid Pain 1 Location : Abdomen Laterality : Left (Comment: upper Quad [LATONIA ANTHONY LPN 12/21/2015 10:15 CDT] ) Intensity : 8 Duration : 3 days LATONIA ANTHONY LPN 12/21/2015 10:15 CDT Dependent Habits Exposure to Tobacco Smoke : Other: former Smoking Status : Former smoker Tobacco 2A : No Tobacco Use/Currently Using : No Tobacco Use/Last 30 Days : No Tobacco Use/Last 12 months : No Tobacco Last Use/Year : 1997 Alcohol Use : No LATONIA ANTHONY LPN 12/21/2015 10:15 CDT Caffeine Use Grid Caffeine Use : Current Type : Chocolate, Coffee, Soft drinks Frequency : Daily Amount : 1 cup, monsters 4 per day Last Use : 12/20/14 LATONIA ANTHONY LPN - 12/21/2015 10:15 CDT Recreational Drug Use Grid Drug Use : None LATONIA ANTHONY LPN - 12/21/2015 10:15 CDT Source: [facility] [employer] Document Id: [id number] CDT!54 documented in this encounter Plan of Treatment Not on filedocumented as of this encounter Visit Diagnoses Not on filedocumented in this encounter Additional Health Concerns Assessment Noted Time PHQ-9 Depression Total Score: 8 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
--- OUTSIDE RECORDS SUMMARY | 2022-04-10 15:01 | XMS_ITS | Encounter Summary ---
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 [address] [facility], [facility] [address] [place], [place] [address] (Wo rk) Social History Tobacco Use Types [...] do you attend hinduism or Never 2021 roman catholic services? 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 syringe, disposable, 1 1 Device by not 0 07/13/20 13 04/04/2020 mL syringe applicable route. documented as of this encounter Progress Notes Tank Marvin P.A.-C. - 12/11/2015 4:07 PM CDT [id number] [facility] PATIENT NAME: Gricelda Roberts CHIEF COMPLAINT/REASON FOR VISIT Possible sinus infection HISTORY OF PRESENT ILLNESS Gricelda is a 35-year-old female who presents with a sinus infection for the last 2 weeks. She was seenat in the [facility] approximately 1 week ago and given a prescription for Augmentin 875mg. Unfortunately, her symptoms persist unchanged. Symptoms include frontal maxillary pain, subjective fever, chills, frontal headache, right earache, nasal congestion/rhinorrhea, right-sided dental pain, cough, decreased appetite, loose stools, dizziness, and hyperhidrosis. Her family is present today and strep throat has recently been present in the last 1 - 2 weeks. CURRENT MEDICATIONS Reviewed, see EMR for detail ALLERGIES Keflex, see EMR for details MEDICAL HISTORY Reviewed, see chronic conditions in EMR for details SURGICAL HISTORY Reviewed, see procedure history in EMR for details SOCIAL HISTORY Denies tobacco use FAMILY HISTORY Not pertinent to today's visit SYSTEMS REVIEW Positives above, otherwise comprehensive review of systems is negative VITAL SIGNS Temperature 37.4 degrees Celsius. Heart rate 103 beats per minute. Respiratory rate 16 breaths per minute. Blood pressure 131/81. SpO2 100% on room air. PHYSICAL EXAMINATION CONSTITUTIONAL: Patient is alert and oriented x3. No acute distress. Sitting comfortably at bedside.Obese body habitus. HEENT: Atraumatic. Conjunctivae clear. PERRL. EMOI. The maxillary sinuses are tender, right greater than left. Outer ears without lesions or other abnormality. Ear canal patent without erythema. The right tympanic membrane is pearly snider and atraumatic. The left tympanic membrane is pearly snider and atr aumatic. Oropharynx patent without erythema. There is a small amount of postnasal drainage. Uvula midline. Tonsils absent. NECK: Trachea midline. Submandibular and anterior chain lymphadenopathy. HEART: Tachycardic with normal rhythm, no murmurs/click/gallops. Pulses 2+/4 throughout, capillary refill <2 sec, good perfusion. LUNGS: Clear to auscultation throughout all lung mojica, anterior posterior. No wheezes, rhonchi, orrales. Equal chest expansion, non-labored breathing, no use of accessory muscles. SKIN: Without rashes, abrasions, lacerations, or signs of infection. Temperature normal. ABDOMEN: Bowel sounds present throughout. There is mild epigastric tenderness. No organomegaly. No rebound. No guarding. DIAGNOSTICS She denies wanting a strep test today. IMPRESSION/REPORT/PLAN DIAGNOSIS: Bacterial sinusitis Start doxycycline 100mg tablets 2 times daily for 7 days. Continue adequate oral hydration, humidifier, hot showers, and [id number] mucolytics as needed. Follow up with primary care provider in the next 3 to 5 days if symptoms unchanged. Eri Ramos/giovanna Electronically Signed By: TANK MARVIN PA-C On: 12/12/2015 02:56 PM Modified by and Electronically Signed by: TANK MARVIN PA-C On: 12/12/2015 02:56 PM Source: [facility] MHSDOLBEYNONRADSYS Document Id: [id number] documented in this encounter Miscellaneous Notes Miscellaneous - Zaid Catalan C.M.A. 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 Coughing up mucous pain in roof of mouth Onset of Symptoms : 12/02/15 Temperature Core : 37.4 DegC(Converted to: 99.3 DegF) Peripheral Pulse Rate : 103 /min (HI) Respiratory Rate : 16 /min Heart Rhythm : Regular Systolic Blood Pressure : 131 mmHg Diastolic Blood Pressure : 81 mmHg NIBP Mean : 98 mmHg BP Location : Right upper extremity Blood Pressure Cuff Size : Large SpO2 : 100 % Oxygen Therapy : Room air Height : 165 cm(Converted to: 5 ft 5 inch(es), 65 inch(es)) [facility] - 12/11/2015 16:13 CDT General Info Information Given By : Patient Languages : Chinese Is Patient Female and 13-50 no hysterectomy : No [facility] 12/11/2015 16:13 CDT Subjective Pain Symptoms : Yes [facility] 12/11/2015 16:13 CDT Pain Scale Pain Scale Verbal 0-10 : Open [facility] 12/11/2015 16:13 CDT Pain Pain Assessment Grid Pain 1 Location : Other: Upper mouth, right side. Has a plate. Laterality : Right [facility] 12/11/2015 16:13 CDT Dependent Habits Exposure to Tobacco Smoke : Other: former Smoking Status : Never smoker Tobacco 2A : No Tobacco Use/Currently Using : No Tobacco Use/Last 30 Days : No Tobacco Use/Last 12 months : No [facility] 12/11/2015 16:13 CDT Caffeine Use Grid Caffeine Use : Current Type : Chocolate, Coffee, Soft drinks Frequency : Daily Amount : 1 cup, monsters 4 per day Last Use : 02/07/15 [facility] - 12/11/2015 16:13 CDT Recreational Drug Use Grid Drug Use : None [facility] - 12/11/2015 16:13 CDT Source: [facility] [employer] Document Id: [id number] CDT!46 documented in this encounter Plan of Treatment Not on filedocumented as of this encounter Visit Diagnoses Not on filedocumented in this encounter Additional Health Concerns Assessment Noted Time PHQ-9 Depression Total Score: 8 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
--- OUTSIDE RECORDS SUMMARY | 2022-04-10 15:01 | XMS_ITS | Encounter Summary ---
:1980 Author Organization [facility] Address [address] [place] [address] Care Team Providers Name Role Phone Unavailable Primary Care Provider Unavailable Encounter Details Date Type Department Care Team Description 06/26/2016 Hospital Encounter HX [facility] FBKF FAMILYPRA Akhil Meza P.A.-C. [address] [place] [address] (Wo rk) Social History Tobacco [...] do you attend adventist or Never 2021 spiritism services? 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/2021 7:35 PM OBIEE ARCHITECT documented as of this encounter Last Filed Vital Signs Vital Sign Reading Time Taken Comments Blood Pressure 120/60 06/26/2016 1:23 PM OBIEE ARCHITECT Pulse 88 06/26/2016 1:23 PM OBIEE ARCHITECT Temperature - - Respiratory Rate 16 06/26/2016 1:23 PM OBIEE ARCHITECT Oxygen Saturation - - Inhaled Oxygen Concentration - - Weight 91.2 kg (201 lb 1 oz) 06/26/2016 1:23 PM OBIEE ARCHITECT Height 165 cm (5' 4.96) 06/26/2016 12:55 PM OBIEE ARCHITECT Body Mass Index 33.5 06/26/2016 12:55 PM OBIEE ARCHITECT documented in this encounter Medications at Time [...] as of this encounter Progress Notes Oseas Meza P.A.-C. - 06/26/2016 12:55 PM CST [id number] CHIEF COMPLAINT/REASON FOR VISIT Follow up of her seizure disorder. HISTORY OF PRESENT ILLNESS Gricelda is a 35-year-old female with a history of seizure disorder. She has been seen by Neurology in [place] in January of this year. This was by Dr. Stuart. She is continued on the Keppra and there was not an obvious reason for her seizures initially. She was hoping that she would maybe be able to get off of this so she held her Keppra for about 3 days and then apparently had another seizure. I didreview the emergency room notes. She apparently had the seizure on June and was taken into the emergency room. A CT scan of her head was done. Under the Impression/Report/Plan, commented that it was not clear whether she had had a seizure or not but she was quite groggy and speech was off as though she was postictal. She was given a loading dose of Keppra 1000 mg and advised to consult with her neurologist. She has continued on the Keppra since that time and has not had any more seizures. She has had ongoing headaches. She has a history of migraine headaches and these have responded usually to Imitrex and she also takes Verapamil for these. She comes in today for further evaluation andtreatment. VITAL SIGNS Noted in the EMR. No further physical examination was done today. IMPRESSION/REPORT/PLAN 1. Seizure. At this time I stressed the importance of her continuing on her Keppra and I want her tofollow up with Neurology for further evaluation and treatment. Her symptoms have stabilized and she is back to her baseline. 2. Migraine headaches. These have been chronic as well. She does not know if the verapamil helps much. She uses the Imitrex occasionally. We did discuss the possibility of increasing her verapamil. Shehas a heart rate and blood pressure that would likely support this but at this time I am going to leave this up to her neurologist for further discussion. For now we will continue to use her Imitrex asnecessary. Certainly if she has any more seizures or any worsening of her symptoms she will let us know. Otherwise I will have her follow up as scheduled with Neurology. Total time spent today with Gricelda was 25 minutes, of which 15 was in [id number] coordination of care and counseling. Oseas Meza P.A.-C./caitlyn Electronically Signed By: OSEAS MEZA PA-C On: 06/27/2016 08:21 AM Source: [facility] MHSDOLBEYNONRADSYS Document Id: [id number] E ARCHITECT documented in this encounter Nursing Notes Veena Shook C.MRafalARafal - 09/15/2016 10:44 AM CST Prior Authorization for Strattera Prior Authorization request for Strattera completed through cover my meds, hernandez CCKJNH time spent onrequest 20 minutes . Electronically Signed By: VEENA SHOOK CMA On: 09/15/2016 10:45 AM Source: [facility] POWERCHART Document Id: [id number] E ARCHITECT documented in this encounter Miscellaneous Notes Telephone Encounter - Francia Moore R.N. - 09/26/2016 10:44 AM CST refill request - gabapentin Document Contains Addenda Addendum by OSEAS MEZA PA-C on September 26, 2016 15:24:09 OBIEE ARCHITECT From: OSEAS MEZA PA-C To: RAMON [place] Medication Refill; Sent: 09/26/2016 15:24:09 OBIEE ARCHITECT Subject: RE: refill request - gabapentin done From: FRANCIA MOORE RN (FB [place] Medication Refill) To: OSEAS MEZA PA-C; Sent: 09/26/2016 10:44:27 OBIEE ARCHITECT Subject: refill request - gabapentin Caller is: ( _ ) Patient ( _ ) Mother ( _ ) Father ( _ ) Spouse ( _ ) Daughter ( _ ) Son ( x ) Pharmacy ( _ ) Other: _ Provider: [facility]: [facility] Name of Medications Needing Refill: Gabapentin Last Refill Date: 09/02/16 Additional Information: Last / Future Appointment: 06/26/16 Disposition: ( x ) Send to Pharmacy ( _ ) Call to Pharmacy ( _ ) Patient will package pick up Script ( _ ) Mail Rx to Patient Source: [facility] POWERCHART Document Id: [id number] Electronically signed by Ruby, [facility] Customer Service [id number] at 01/04/2017 12:19 AM CDT Telephone Encounter - Conversion, Historical Provider Ser - 09/15/2016 4:46 PM CST *Phone Message/Oseas Meza Document Contains Addenda Addendum by SAKINA JENSEN LPN on September 15, 2016 17:02:26 OBIEE ARCHITECT From: SAKINA JENSEN LPN ( [facility] Nurse) To: OSEAS MEZA PA-C; Sent: 09/15/2016 17:02:26 OBIEE ARCHITECT Subject: FW: *Phone Message/Oseas Meza Addendum by SAKINA JENSEN LPN on September 15, 2016 17:02:17 OBIEE ARCHITECT Notified Gricelda that I would forward this onto Oseas and that [place] is the closest for her to get that done From: OCHOA SÁNCHEZ ([facility] Store Group Manager) To: [facility] Nurse; Sent: 09/15/2016 16:46:27 OBIEE ARCHITECT Subject: *Phone Message/Oseas Meza Caller is: ( x ) Patient ( ) Mother ( ) Father ( ) Spouse ( ) Daughter ( ) Son ( ) Pharmacy ( ) Other: Physician: Oseas Meza Patient MRN #: Reason for Call: Message: Patient states that she had gastric bypass 6 years ago and was supposed to have a bone density test set up. She is wondering if Oseas can set this up for her. She was informed that they only do this test in [place] and they would need to schedule it for her. Please call her back at [phone] if you are able to order this for her. Advice/Action: Source used: ( ) Verbalizes understanding [...] back cell phone number ( ) Source: [place] Document Id: [id number] Telephone Encounter - Francia Moore R.N. - 08/06/2016 8:46 AM CST Refill request - Ambien Document Contains Addenda Addendum by SAKINA JENSEN LPN on August 06, 2016 12:01:44 OBIEE ARCHITECT notified Gricelda Addendum by OSEAS MEZA PA-C on August 06, 2016 11:46:03 OBIEE ARCHITECT From: OSEAS MEZA PA-C To: SAKINA JENSEN LPN; Sent: 08/06/2016 11:46:03 OBIEE ARCHITECT Subject: FW: Refill request - Ambien done From: FRANCIA MOORE RN To: OSEAS MEZA PA-C; Sent: 08/06/2016 08:46:58 OBIEE ARCHITECT Subject: Refill request - Ambien Caller is: ( _ ) Patient ( _ ) Mother ( _ ) Father ( _ ) Spouse ( _ ) Daughter ( _ ) Son ( x ) Pharmacy ( _ ) Other: _ Provider: [facility]acy: [facility] Name of Medications Needing Refill: Ambien Last Refill Date: 04/10/16 Additional Information: Direct to provider medication. Last / Future Appointment: 06/26/16 Disposition: ( x ) Send to Pharmacy ( _ ) Call to Pharmacy ( _ ) Patient will package pick up Script ( _ ) Mail Rx to Patient Source: [facility] POWERCHART Document Id: [id number] Electronically signed by Conversion, [facility] Customer Service [id number] at 01/04/2017 12:19 AM CDT Miscellaneous - Latonia Anthony L.P.N. - 06/26/2016 1:23 PM CST Adult Promotions Intern Intake/History Adult Promotions Intern Intake/History Entered On: 06/26/2016 13:27 OBIEE ARCHITECT Performed On: 06/26/2016 13:23 OBIEE ARCHITECT by LATONIA ANTHONY LPN Intake Chief Complaint : follow up ER visit [facility] related to a seizure. Onset of Symptoms : 06/17/16 Temperature Core : 36.9 DegC(Converted to: 98.4 DegF) Peripheral Pulse Rate : 88 /min Respiratory Rate : 16 /min Systolic Blood Pressure : 120 mmHg Diastolic Blood Pressure : 60 mmHg NIBP Mean : 80 mmHg BP Location : Right upper extremity Blood Pressure Cuff Size : Large Actual Weight : 91.2 kg(Converted to: 201 lb 1 oz) Weight Source : Standing scale Dosing Weight Clinic : 91.2 kg LATONIA ANTHONY LPN - 06/26/2016 13:23 OBIEE ARCHITECT General Info Information Given By : Patient Preferred Communication Mode : Verbal Languages : Argentine Is Patient Female and 13-50 no hysterectomy : No LATONIA ANTHONY LPN - 06/26/2016 13:23 OBIEE ARCHITECT Subjective Pain Symptoms : No LATONIA ANTHONY LPN - 06/26/2016 13:23 OBIEE ARCHITECT Dependent Habits Exposure to Tobacco Smoke : Other: former Smoking Status : Former smoker Tobacco 2A : Yes Tobacco Use/Currently Using : No Tobacco Use/Last 30 Days : No Tobacco Use/Last 12 months : No Tobacco Last Use/Year : 1997 Alcohol Use : No LATONIA ANTHONY LPN - 06/26/2016 13:23 OBIEE ARCHITECT Caffeine Use Grid Caffeine Use : Current Type : Chocolate, Coffee, Soft drinks Frequency : Daily Amount : 1 cup, monsters 4 per day Last Use : 06/26/2016 LATONIA ANTHONY LPN - 06/26/2016 13:23 OBIEE ARCHITECT Recreational Drug Use Grid Drug Use : None LATONIA ANTHONY LPN - 06/26/2016 13:23 OBIEE ARCHITECT Source: [facility] POWERCHART Document Id: [id number] OBIEE ARCHITECT!41 E ARCHITECT documented in this encounter Plan of Treatment Not on filedocumented as of this encounter Visit Diagnoses Not on filedocumented in this encounter Additional Health Concerns Assessment Noted Time PHQ-9 Depression Total Score: 8 06/12/2016 10:45 AM CD T documented as of this encounter
--- OUTSIDE RECORDS SUMMARY | 2022-04-10 15:01 | XMS_ITS | Encounter Summary ---
:1980 Author Organization [facility] Address [address] [place] [id number] Care Team Providers Name Role Phone Unavailable Primary Care Provider Unavailable Encounter Details Date Type Department Care Team Description 10/16/2016 Hospital Encounter HX [facility] BONE DENS Akhil Meza P.A.-C. [address] [place] [address] (Wo rk) Social History Tobacco [...] do you attend [employer] or Never 2021 [employer] services? 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/2021 7:35 PM HOP TRAINER documented as of this encounter Last Filed Vital Signs Vital Sign Reading Time Taken Comments Blood Pressure - - Pulse - - Temperature - - Respiratory Rate - - Oxygen Saturation - - Inhaled Oxygen Concentration - - Weight - - Height 165 cm (5' 4.96) 10/16/2016 10:07 AM HOP TRAINER Body Mass Index - - documented in [...] mouth daily. documented as of this encounter Nursing Notes Sakina Jensen, L.P.N. - 02/06/2017 4:24 PM CDT NO referral notified Gricelda that she would need to be seen by Oseas prior to referral to rheumatology could be made.... Electronically Signed By: SAKINA JENSEN LPN On: 02/06/2017 04:26 PM Source: [facility] POWERCHART Document Id: [id number] documented in this encounter Miscellaneous Notes Telephone Encounter - Conversion, Historical Provider Ser - 02/06/2017 3:53 PM CDT *Phone Message Document Contains Addenda Addendum by SAKINA JENSEN LPN on February 16, 2017 16:46:34 CDT Spoke with: ( _x ) Patient ( _ ) Parent ( _ ) Spouse ( _ ) Child ( ) Other: _ Call back telephone number: _[phone] Reason for Call: -_notified Gricelda that Oseas would like to see her before re- submitting referral torheumatology in [facility]. Chief Complaint: _ Patient/Caller response to Education/Information given: ( _ ) Verbalizes understanding of instructions ( _ ) Provide intervention per provider instruction ( _ ) Reinforce information already given ( _ ) Reinforce Plan of Care ( _ ) Provide preprinted information by mail (if applicable) Source/Reference used (if applicable): _ OK to leave message on voice mail? _ OK to send message via patient portal? _ Patient told to expect return call: ( _ ) today ( _ ) tomorrow ( _ ) next work day Callers preferred language for Healthcare discussion: _ Was an staff interpreter used for this call? _ Other ( --_ ) Addendum by ROLDAN NGUYEN on February 16, 2017 15:24:12 CDT From: ROLDAN NGUYEN ( Derrick Nurse) To: RAMON Meza Nurse; Sent: 02/16/2017 15:24:12 CDT Subject: FW: *Phone Message request call back to clarify lab work she is needing done call Gricelda at [phone] Addendum by SAKINA JENSEN LPN on February 06, 2017 16:14:03 CDT done Addendum by OSEAS MEZA PA-C on February 06, 2017 16:08:23 CDT From: OSEAS MEZA PA-C To: RAMON Meza Nurse; Sent: 02/06/2017 16:08:23 CDT Subject: RE: *Phone Message please put in referral Addendum by SAKINA JENSEN LPN on February 06, 2017 16:07:04 CDT From: SAKINA JENSEN LPN (RAOMN Resendez) To: OSEAS MEZA PA-C; Sent: 02/06/2017 16:07:04 CDT Subject: FW: *Phone Message Addendum by SAKINA JENSEN LPN on February 06, 2017 16:06:57 CDT Spoke with: ( _x ) Patient ( _ ) Parent ( _ ) Spouse ( _ ) Child ( ) Other: _ Call back telephone number: _[phone] Reason for Call: -_ortho provider said that there is nothing wrong orthopedically and Gricelda needs tosee a planning specialist so would like a referral to [facility] for this please..... Chief Complaint: _ Patient/Caller response to Education/Information given: ( _ ) Verbalizes understanding of instructions ( _ ) Provide intervention per provider instruction ( _ ) Reinforce information already given ( _ ) Reinforce Plan of Care ( _ ) Provide preprinted information by mail (if applicable) Source/Reference used (if applicable): _ OK to leave message on voice mail? _ OK to send message via patient portal? _ Patient told to expect return call: ( _ ) today ( _ ) tomorrow ( _ ) next work day Callers preferred language for Healthcare discussion: _ Was an staff interpreter used for this call? _ Other ( --_ ) From: FRANCIA CROSS ( Family [facility] Nurse) To: RAMON Resendez; Sent: 02/06/2017 15:53:43 CDT Subject: *Phone Message Caller is: ( x ) Patient ( ) Mother ( ) Father ( ) Spouse ( ) Daughter ( ) Son ( ) Pharmacy ( ) Other: Physician: Patient MRN #: Reason for Call: Message: Patient would like an appt in [place] with a Manager Audio. She would like a call back at [phone] Advice/Action: Source used: ( ) Verbalizes understanding [...] back cell phone number ( ) Source: [facility] Rise Document Id: [id number] Miscellaneous - Oseas Meza P.A.-C. - 10/16/2016 12:23 PM CST Results Notification Document Contains Addenda Addendum by LATONIA ANTHONY LPN on October 16, 2016 13:13:55 HOP TRAINER Number is unavailable. Will try later per voice message. From: OSEAS MEZA PA-C To: LATONIA ANTHONY LPN; Sent: 10/16/2016 12:23:31 HOP TRAINER ! Show up: 10/16/2016 12:23:31 HOP TRAINER Subject: Results Notification Actions: Note to Nurse Reminder Comments: please notify patient of normal bone density scan Results: Date Result Type Result Name 10/16/2016 11:32 Radiology BD Hip/Pelvis/Spine [facility] Document Id: [id number] Electronically signed by Conversion, [facility] Shutdown Coordinator [id number] at 01/20/2017 5:12 AM CDT documented in this encounter Plan of Treatment Not on filedocumented as of this encounter Procedures Procedure Name Priority Date/Time Associated Diagnosis Comme nts BMD BONE DENSITY Routine 10/16/2016 10:00 AM Resu lts for this SPINE HIPS HOP TRAINER procedure are i n the results section. documented in this encounter Results BMD BONE DENSITY SPINE HIPS (10/16/2016 10:00 AM HOP TRAINER) Anatomical Region Laterality Modality Hip, Lumbar Spine N/A Radiographic Imaging Specimen (Source) Anatomical Collection Method Collection Time Re ceived Time Location / / Volume Laterality 10/16/2016 10:00 AM HOP TRAINER Addenda Addendum by Provider, Ana Murphy 10/16/2016 10:00 AM HOP TRAINER RAD^^^OW BD Hip Pelvis Spine 10/16/2016 10:00:00 Impressions 10/16/2016 11:29 AM HOP TRAINER ?? 1. Bone mineral density is within the ex pected range for age. 2. FRAX score not assessed due to patien t age. Narrative 10/16/2016 11:29 AM HOP TRAINER EXAM: BD Hip/Pelvis/Spine INDICATION: screening for osteoporosis h x of gastric bypass COMPARISON: No prior for comparison. EQUIPMENT: [employer] TECHNIQUE: The lumbar spine and hips wer e scanned with DXA. FINDINGS: STATISTICAL SCORE: DXA results are repor kathleen according to z score. ??The z-score is the standard deviation from a ge, sex and ethnicity matched individuals. A Z-score of -1.0 to -2.5 c orrelates with osteopenia. ??A z-score of less than -2.5 correlates wit h osteoporosis. In accordance with ISCD (International S ociety of Clinical Densitometry) the lowest BMD between the total hip and femoral neck will be used for evaluation. FRAX Validity: FRAX scores are not clini faye validated for premenopausal women, men under 50 years old, patients with history of therapy with bisphosphonates in the past two years, calcitonin in the last year, PTH in the last year, denosum ab in the last year. Calcium and vitamin D do NOT constitute treatme nt in this context. All treatment decisions require clinical carol gement and consideration of individual patient factors which may not be captured in the FRAX model and the risk of fracture may be over- or under-estimated by FRAX. FINDINGS: ?? SPINE REGION OF INTEREST: L1-L4 BMD (g/cm2): 1.252 Z-SCORE: 0.5 COMPARISON RESULT: No prior for comparis on HIP REGION OF INTEREST: Left femoral neck. BMD (g/cm2): 1.066 Z-SCORE: 0.5 REGION OF INTEREST: Right femoral neck. BMD (g/cm2): 1.041 Z-SCORE: 0.5 HIP COMPARISON RESULT: No prior for comp arison RECOMMENDATIONS: 1. Follow up BMD should be determined ac cording to each patient's clinical status, typically one year afte r initiation or change of therapy is appropriate. 2. Medical evaluation for secondary caus es of low BMD may be appropriate. Procedure Note Roberto Castelan M.D. / Provider, Negar lezama M.D. - 01/26/2017 EXAM: BD Hip/Pelvis/Spine INDICATION: screening for osteoporosis h x of gastric bypass COMPARISON: No prior for comparison. EQUIPMENT: [employer] TECHNIQUE: The lumbar spine and hips wer e scanned with DXA. FINDINGS: STATISTICAL SCORE: DXA results are repor kathleen according to z score. The z-score is the standard deviation from a ge, sex and ethnicity matched individuals. A Z-score of -1.0 to -2.5 c orrelates with osteopenia. A z-score of less than -2.5 correlates wit h osteoporosis. In accordance with ISCD (International S ociety of Clinical Densitometry) the lowest BMD between the total hip and femoral neck will be used for evaluation. FRAX Validity: FRAX scores are not clini faye validated for premenopausal women, men under 50 years old, patients with history of therapy with bisphosphonates in the past two years, calcitonin in the last year, PTH in the last year, denosum ab in the last year. Calcium and vitamin D do NOT constitute treatme nt in this context. All treatment decisions require clinical carol gement and consideration of individual patient factors which may not be captured in the FRAX model and the risk of fracture may be over- or under-estimated by FRAX. FINDINGS: SPINE REGION OF INTEREST: L1-L4 BMD (g/cm2): 1.252 Z-SCORE: 0.5 COMPARISON RESULT: No prior for comparis on HIP REGION OF INTEREST: Left femoral neck. BMD (g/cm2): 1.066 Z-SCORE: 0.5 REGION OF INTEREST: Right femoral neck. BMD (g/cm2): 1.041 Z-SCORE: 0.5 HIP COMPARISON RESULT: No prior for comp arison RECOMMENDATIONS: 1. Follow up BMD should be determined ac cording to each patient's clinical status, typically one year afte r initiation or change of therapy is appropriate. 2. Medical evaluation for secondary caus es of low BMD may be appropriate. IMPRESSION: 1. Bone mineral density is within the ex pected range for age. 2. FRAX score not assessed due to patien t age. Evy Choi(R), RLucrecia(R)(M) IMG DXA PROCEDURES documented in this encounter Visit Diagnoses Not on filedocumented in this encounter Additional Health Concerns Assessment Noted Time PHQ-9 Depression Total Score: 8 06/12/2016 10:45 AM CD T documented as of this encounter
--- OUTSIDE RECORDS SUMMARY | 2022-04-10 15:01 | XMS_ITS | Encounter Summary ---
:1980 Author Organization [facility] Address [address] [place] [address] Care Team Providers Name Role Phone Unavailable Primary Care Provider Unavailable Encounter Details Date Type Department Care Team Description 12/18/2015 Hospital Encounter HX [facility] Jeanette Napier M.D. [address] [place] [address] [phone] (Wo rk) Social History Tobacco Use Types [...] do you attend restorationist or Never 2021 baptism services? 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 vitamin-iron Take 1 capsule by 0 016 04/04/2020 fumarate-FA ( mouth 2 (two) times a MULTIVITAMINS) 28 mg day. iron- 800 mcg per tablet syringe, disposable, 1 1 Device by not 0 07/13/20 13 04/04/2020 mL syringe applicable route. documented as of this encounter Progress Notes Keturah Napier M.D. - 12/18/2015 10:49 AM CDT [id number] CHIEF COMPLAINT/REASON FOR VISIT Follow up emergency room evaluation. HISTORY OF PRESENT ILLNESS A 35-year-old female presents to clinic to follow up emergency room evaluation. She had a seizure-like event. Had a complete evaluation including a CT scan, labs with diagnosis of a left lower lobe pneumonia. Further discussion reveals she was lying in bed coloring with her partner, who noted she had shaking from head to toe with a rattling sensation,and threw her head back. He placed her in a comfortable position, and dialed 911. The next thing that she recalls is seeing the EMS looking down at her. The significant other felt she was shaking for about 30 seconds with labored breathing. No bowel orbladder loss at the time of the event. Of note, she had been out of her numerous medications for longer than a month including verapamil, levothyroxine, citalopram, Strattera, and had been taking doxycycline and a codeine cough syrup for a sinus infection for a few days prior to this event. She has not followed up with her regular healthcare provider in some time, as she is having difficulties scheduling appointments. Right now she feels a bit more ill and tired. Continues to have a sensation of a cough. 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 Has had 02/03 adult supervision since the event. Has not been driving. EMR reviewed. MEDICATIONS 1. Citalopram 40 mg daily, Rx given 12/18/2015. 2. Levothyroxine 75 mcg daily, Rx given 12/18/2015. 3. Verapamil extended release 120 mg daily, Rx given 12/18/2015. 4. Flonase nasal spray a squirt each nostril daily. 5. Sumatriptan 100 mg as needed for headaches. 6. Multiple vitamins each day. 7. Strattera but not for a month. 8. Vitamin B12 monthly injections. 9. Codeine cough syrup, recent prescription 12/11/2015. 10. Doxycycline 100 mg 2 times per day, completing a 14-day treatment course, reviewed 12/18/2015. ALLERGIES Cephalexin. SYSTEMS REVIEW Negative review of major organ systems apart from that noted in the HPI and the Past Medical/Surgical History. PAST MEDICAL/SURGICAL HISTORY SURGERIES: 1.Tonsillectomy, 2007; 2.supracervical hysterectomy with right salpingo-oophorectomy, 2010;3. cholecystectomy, 2003; 4.appendectomy, 2003; 5.C- section, 2006; 6., 2007;7. tubal ligation, per the chart 2007, but not per the patient; 8.gastric bypass, 2011. OTHER HEALTH ISSUES: 1.Morbid obesity;2. degenerative joint disease; 3.opioid dependence; 4.history of depression with anxiety; 5.attention deficit disorder; 6.gastric bypass status; 7.hypothyroidism; 8.migraines; 9.chronic back pain; 10.history of tobacco use, quitting in 1997. SOCIAL HISTORY Alcohol: Quit in 2015. A cup of coffee once per week. Tea a couple times per week. FAMILY HISTORY Mother: Rheumatoid arthritis. Father: Hypertension, diabetes mellitus, hyperlipidemia, history of TB, posttraumatic stress disorder. Maternal grandmother: Unknown. Paternal grandfather: Coronary arterydisease, dying at age 40. Paternal grandmother: Coronary artery disease. Paternal grandfather: Unknow n. VITAL SIGNS Weight 86.5 kg. Temperature 36.9, respiratory rate 16, pulse 68, systolic 132, diastolic 84. PHYSICAL EXAMINATION GENERAL: Neatly dressed, well groomed. HEENT: Head: No evidence trauma, tenderness, masses. Ears: TMs are snider. Good visualization of landmarks. Eyes: Bilateral red reflex. PERRLA. Funduscopic exam grossly stable. The EOMs are full. Nose: Mucosal membranes pink and moist. Oral: No exudates. Teeth in fair condition. NECK: Supple. Trachea midline. Lymph nodes: No cervical adenopathy. Thyroid: No masses, tenderness, or enlargement. LUNGS: Clear to auscultation. CARDIOVASCULAR: Regular rate and rhythm. NEUROLOGIC: No focal neurologic findings. Gait is smooth and easy. IMPRESSION/REPORT/PLAN 1. Seizure-like event. 2. Mood disorder. 3. Hypothyroidism. 4. Gastric bypass status. 5. History of tobacco use. 6. Obesity. 7. Pneumonia. PLAN: Reviewed the recent emergency room note with the stable labs and the findings of pneumonia. This may indeed have complicated the event history as well as discontinuation of multiple medications which could indeed have abrupt sequelae with cessation, especially combined with other medicationsrecently prescribed as had recently happened to the patient. Gave refills of some of her medicines, but will not restart the Strattera secondary to the potential side effect of seizure with this medication as well as the history requiring need for this medication at her stated age, but defer this decision to her regular healthcare provider. Would recommend a recheck with her regular healthcare provider inthe next week. Will arrange for formal evaluation with Neurology. Supportive measures discussed in detail. Please see the medication reconciliation and preventive services. Would recommend avoiding anytype of activity which would put her at risk personally and risk others, such as driving. She and her significant other are comfortable with this plan. Spent 20 of the 30-minute visit in discussion. Keturah Napier M.D./caitlyn Electronically Signed By: KETURAH NAPIER MD On: 12/19/2015 07:56 AM Modified by and Electronically Signed by: KETURAH NAPIER MD On: 12/19/2015 07:56 AM Source: [facility] MHSDOLBEYNONRADSYS Document Id: [id number] documented in this encounter Miscellaneous Notes Miscellaneous - Keturah Napier M.D. - 12/18/2015 12:29 PM CDT Ambulatory Patient Summary [address] [id number] Visit Information Name: GRICELDA REID [facility] Number: [id number] Current Date: 12/18/2015 12:29:47 Physicians Attending Provider: KETURAH NAPIER MD Primary Care Provider: OSEAS WILSON PA-C JEANETTEGRICELDA ARANDA LINUS has been given the following list of [...] Oral, once a day (in the morning) citalopram (citalopram 40 mg oral tablet) 40 mg, Oral, once a day New Routed to [facility] [address] [facility] [place] [id number] codeine-guaiFENesin (codeine-guaiFENesin 10 mg-100 mg/5 mL oral syrup) See Instructions, as needed for cough 5-10 mL PO before bed as needed for cough cyanocobalamin (Vitamin B12 1000 mcg/mL injectable solution) 1,000 mcg, Intramuscular, once a month doxycycline (doxycycline hyclate 100 mg oral tablet) 1 Tablet(s), Oral, two times a day x 7 day(s) fluticasone nasal (Flonase) 1 [place]essemer(s), Nasal, once a day levothyroxine (levothyroxine 75 mcg (0.075 mg) oral tablet) 75 mcg, Oral, once a day New Routed to [address] [id number] multivitamin, ( Multivitamins with Vitamin B Complex, Vitamin C, Minerals and L-Methylfolate oral capsule) 1 cap, Oral, once a day SUMAtriptan (SUMAtriptan 100 mg oral tablet) 1 Tablet(s), Oral, once verapamil (verapamil 120 mg/24 hours oral capsule, extended release) 1 cap, Oral, once a day New Routed to [address] [id number] Stop Taking the Following Medications: Medication list as of 12-18-15 12:29 Attention: If you have any medications at home that are not on this list, DO NOT take them until youcontact your provider for clarification. Give a copy of your medication list to your primary care provider. Update your medication list any time medications or doses are changed and carry your medication list at all times in case of emergency. Electronically Signed By: KETURAH NAPIER MD Signed On:18-DEC-2015 12:29:37 Your Allergies & Intolerances Substance Reaction Symptoms [...] Use Pers Hx Active 12/18/15 quit 1998 Your Upcoming Appointments Date Time Location Provider [facility] 10[facility]/08/2016 09:15 [facility] Neurology Andrew [...] if you dont have one. Go to [email or web address] and click on Create Your Account. Then, follow the directions to complete the online form. Youll be asked for your [facility] number which you can find at the top of this document. Your Goals/Additional instructions: Source: [facility] POWERCHART Document Id: [id number] Miscellaneous - Keturah Napier M.D. - 12/18/2015 12:29 PM CDT Ambulatory Discharge Medication List [address] [id number] Visit Information Name: GRICELDA REID [facility] Number: [id number] Visit Date: 12/18/2015 12:29:46 Attending Provider: KETURAH NAPIER MD Primary Care Provider: OSEAS WILSON PA-C JEANETTEGRICELDA LINUS has been given the following list of [...] Oral, once a day (in the morning) citalopram (citalopram 40 mg oral tablet) 40 mg, Oral, once a day New Routed to [facility] [address] [place], [place] [id number] codeine-guaiFENesin (codeine-guaiFENesin 10 mg-100 mg/5 mL oral syrup) See Instructions, as needed for cough 5-10 mL PO before bed as needed for cough cyanocobalamin (Vitamin B12 1000 mcg/mL injectable solution) 1,000 mcg, Intramuscular, once a month doxycycline (doxycycline hyclate 100 mg oral tablet) 1 Tablet(s), Oral, two times a day x 7 day(s) fluticasone nasal (Flonase) 1 [place]essemer(s), Nasal, once a day levothyroxine (levothyroxine 75 mcg (0.075 mg) oral tablet) 75 mcg, Oral, once a day New Routed to [address] [id number] multivitamin, ( Multivitamins with Vitamin B Complex, Vitamin C, Minerals and L-Methylfolate oral capsule) 1 cap, Oral, once a day SUMAtriptan (SUMAtriptan 100 mg oral tablet) 1 Tablet(s), Oral, once verapamil (verapamil 120 mg/24 hours oral capsule, extended release) 1 cap, Oral, once a day New Routed to [address] [phone] Stop Taking the Following Medications: Medication list as of 12-18-15 12:29 Attention: If you have any medications at home that are not on this list, DO NOT take them until youcontact your provider for clarification. Give a copy of your medication list to your primary care provider. Update your medication list any time medications or doses are changed and carry your medication list at all times in case of emergency. Electronically Signed By: KETURAH NAPIER MD Signed On:18-DEC-2015 12:29:37 Additional Information: Source: [facility] POWERCHART Document Id: [id number] Miscellaneous - Christine Morales L.PRafalN. 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/History Entered On: 12/18/2015 11:12 CDT Performed On: 12/18/2015 11:11 CDT by CHRISTINE MORALES LPN Intake Temperature Core : 36.9 DegC(Converted to: 98.4 DegF) Peripheral Pulse Rate : 68 /min Respiratory Rate : 16 /min Heart Rhythm : Regular Systolic Blood Pressure : 132 mmHg Diastolic Blood Pressure : 84 mmHg NIBP Mean : 100 mmHg BP Location : Left upper extremity Blood Pressure Cuff Size : Large Actual Weight : 86.5 kg(Converted to: 190 lb 11 oz) Weight Source : Standing scale Dosing Weight Clinic : 86.5 kg Clinic BSA : 1.99 Body Mass Index : 31.77 kg/m2 Chief Complaint : follow up ER 12/13 for seizure/loss of conciousness, diagnosed with bronchitis and pneumonia CHRISTINE MORALES LPN - 12/18/2015 11:13 CDT Height : 165 cm(Converted to: 5 ft 5 inch(es), 65 inch(es)) CHRISTINE MORALES LPN - 12/18/2015 11:11 CDT General Info Information Given By : Patient Preferred Communication Mode : Verbal, Written Languages : Lao Is Patient Female and 13-50 no hysterectomy : No CHRISTINE MORALES LPN - 12/18/2015 11:13 CDT Subjective Pain Symptoms : Yes CHRISTINE MORALES LPN - 12/18/2015 11:13 CDT Pain Scale Pain Scale Verbal 0-10 : Open CHRISTINE MORALES LPN - 12/18/2015 11:13 CDT Pain Pain Assessment Grid Pain 1 Location : Head CHRISTINE MORALES LPN - 12/18/2015 11:13 CDT Dependent Habits Exposure to Tobacco Smoke : Other: former Smoking Status : Former smoker Tobacco 2A : Yes Tobacco Use/Currently Using : No Tobacco Use/Last 30 Days : No Tobacco Use/Last 12 months : No CHRISTINE MORALES LPN - 12/18/2015 11:13 CDT Caffeine Use Grid Caffeine Use : Current Type : Chocolate, Coffee, Soft drinks Frequency : Daily Amount : 1 cup, monsters 4 per day Last Use : 02/07/15 CHRISTINE MORALES LPN - 12/18/2015 11:13 CDT Recreational Drug Use Grid Drug Use : None CHRISTINE MORALES LPN - 12/18/2015 11:13 CDT Source: [facility] POWERCHART Document Id: [id number]!48 documented in this encounter Plan of Treatment Not on filedocumented as of this encounter Visit Diagnoses Not on filedocumented in this encounter Additional Health Concerns Assessment Noted Time PHQ-9 Depression Total Score: 8 10/01/2015 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
--- OUTSIDE RECORDS SUMMARY | 2022-04-10 15:01 | XMS_ITS | Encounter Summary ---
:1980 Author Organization [facility] Address [address] [place] [address] Care Team Providers Name Role Phone Unavailable Primary Care Provider Unavailable Encounter Details Date Type Department Care Team Description 05/24/2015 Hospital Encounter HX NO MAPPING Jesus Duron M.D. Social History Tobacco Use Types Packs/Day Years [...] do you attend religious or Never 2021 congregation services? 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 documented as of this encounter Miscellaneous Notes Miscellaneous - Conversion, Historical Provider Ser - 05/24/2015 11:59 PM CDT Coding Summary-Paper Based CODING DATE: 06/05/2015 FINAL [facility] STATUS: * Discharged to Home or Self Care PAYOR: Medicaid ADMIT DX: REASON FOR VISIT DX: FINAL DX: PRINCIPAL: N39.41 Urge incontinence SECONDARY: PROCEDURES DOCTOR NAME DATE NOTE: The code number assigned matches the documented diagnosis and / or procedure in the patient's chart. However, the narrative phrase printed from the coding software may appear abbreviated, or result in slightly different terminology. Coded By: EDILIA HARO Date Saved: 06/05/2015 08:35 am Source: [facility] KeyOwnerCHART Document Id: [id number] documented in this encounter Plan of Treatment Not on filedocumented as of this encounter Visit Diagnoses Not on filedocumented in this encounter
--- OUTSIDE RECORDS SUMMARY | 2022-04-10 15:01 | XMS_ITS | Encounter Summary ---
:1980 Author Organization [facility] Address [address] [place] [address] Care Team Providers Name Role Phone Unavailable Primary Care Provider Unavailable Encounter Details Date Type Department Care Team Description 10/01/2015 Hospital Encounter HX [facility] FAMILYPRA Luann Suh, HIRED HELP, C.N.P. [address] [place] [address] (Wo rk) Social History Tobacco [...] do you attend jain or Never 2021 spiritism services? 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 documented as of this encounter Last Filed Vital Signs Vital Sign Reading Time Taken Comments Blood Pressure 124/86 10/01/2015 2:27 PM ORACLE OBIEE DEVELOPER Pulse 68 10/01/2015 2:27 PM ORACLE OBIEE DEVELOPER Temperature - - Respiratory Rate 20 10/01/2015 2:27 PM ORACLE OBIEE DEVELOPER Oxygen Saturation - - Inhaled Oxygen Concentration - - Weight 86.7 kg (191 lb 2.2 oz) 10/01/2015 2:27 PM ORACLE OBIEE DEVELOPER Height 165 cm (5' 4.96) 10/01/2015 2:27 PM ORACLE OBIEE DEVELOPER Body Mass Index 31.85 10/01/2015 2:27 PM ORACLE OBIEE DEVELOPER documented in this encounter Medications at Time [...] documented as of this encounter Progress Notes Aishwarya Suh, PAT, C.N.P. - 10/01/2015 2:44 PM CST Clinic Full Note CHIEF COMPLAINT/REASON FOR VISIT UTI- Bladder hurts and urgency. Started about 1 1/2 weeks ago. Having pain on right lower back since 09/15/15. HISTORY OF PRESENT ILLNESS Gricelda states she has had urinary urgency and dysuria for the past week. No blood in the urine. No fever. She has been having right low back pain. MEDICATIONS None ALLERGIES Keflex PAST MEDICAL HISTORY Chronic Complic Morbid Obesity BodyMassIndex BMI >40 Preg Antepartum Degenerative Joint Disease Multiple Sites Dependence Drug Opioid NOS Depression Anxiety Disorder Attention Deficit Hyperactive (ADHD) Gastric Bypass S/P Hypothyroidism NOS Migraine Headache (AGUILERA) NOS Pain Back Lumbar Historical Gastric Bypass S/P PROCEDURES/SURGICAL HISTORY Gastric bypass operation (2011), Abdominal hysterectomy and right salpingo-oophorectomy (10/10/2010), DELIVERY ONLY 22-AUG-2015 13:24:02 (2007), DIVISION OF FALLOPIAN TUBE (2007), Tonsillectomy (2007), DELIVERY ONLY 22-AUG-2015 13:24:02 (2006), Appendectomy (2003), Cholecystectomy (2003). SOCIAL HISTORY Date Time: 10/01/2015 14:27 Tobacco: Smoking Status: Former smoker Exposure: Other: former Alcohol: Use: No Recreational Drugs: Use: None Type: No Results Found FAMILY HISTORY Mother:Positive: Arthritis; Rheumatoid arthritis Father:Positive: Diabetes mellitus; Hyperlipidemia; Hypertension; PTSD - Post- traumatic stress disorder; TB - Tuberculosis Sister:Family History Unknown. Brother: Negative: Brother: Negative: Grandfather ( at 47 year(s)):Positive: Myocardial infarction HEALTH MAINTENANCE Up to date. SYSTEMS REVIEW Positive for that mentioned in the History of Present Illness and Past Medical History. All other systems were reviewed and were negative. VITAL SIGNS T: 37.0 ??C (Core) HR: 68 RR: 20 BP: 124 / 86 HT: 165 cm WT: 86.7 kg BMI: 31.85 PHYSICAL EXAMINATION GENERAL: Well-developed, well-nourished, in no acute distress. SKIN: Warm and dry. HEENT: TMs clear. Throat clear. NECK: Supple. No lymphadenopathy or thyromegaly. HEART: Regular rate and rhythm. S1, S2. No murmur. LUNGS: Clear to auscultation. No wheezes or rales. ABDOMEN: Soft, nontender. No hepatosplenomegaly. EXTREMITIES: Warm, dry. No peripheral edema. SPINE: Limited range of motion of the lumbar spine due to discomfort. Tenderness to palpation over the right lumbosacral paraspinal musculature. Deep tendon reflexes 2+ and symmetrical. Straight leg raising negative bilaterally. Circulation, motor strength and sensation to the foot is normal. LAB RESULTS UA Color Yellow 10/01/2015 14:25 ORACLE OBIEE DEVELOPER UA Clarity Clear 10/01/2015 14:25 ORACLE OBIEE DEVELOPER UA Spec Grav 1.010 10/01/2015 14:25 ORACLE OBIEE DEVELOPER UA pH 7.0 10/01/2015 14:25 ORACLE OBIEE DEVELOPER UA Protein Negativ 10/01/2015 14:25 ORACLE OBIEE DEVELOPER UA Glucose Negativ 10/01/2015 14:25 ORACLE OBIEE DEVELOPER UA Ketones Negativ 10/01/2015 14:25 ORACLE OBIEE DEVELOPER UA Bili Negativ 10/01/2015 14:25 ORACLE OBIEE DEVELOPER UA Urobilinogen 0.2 10/01/2015 14:25 ORACLE OBIEE DEVELOPER UA Blood Negativ 10/01/2015 14:25 ORACLE OBIEE DEVELOPER UA Nitrite Negativ 10/01/2015 14:25 ORACLE OBIEE DEVELOPER UA Leuk Est Negativ 10/01/2015 14:25 ORACLE OBIEE DEVELOPER UR WBC Occ-3 10/01/2015 14:25 ORACLE OBIEE DEVELOPER UR RBC Occ-2 10/01/2015 14:25 ORACLE OBIEE DEVELOPER UR Squamous Epi Cells Occ-3 10/01/2015 14:25 ORACLE OBIEE DEVELOPER (Abnormal) IMPRESSION/REPORT/PLAN Dysuria NOS Urinalysis is negative. Encourage fluids. Ordered: OV Est Pt Level 4 - 64307 - 25 min Pain Low Back (LBP) Acetaminophen 325 mg, 2 tabs every 4 hours as needed for pain. Referral to [facility].Recheck if symptoms do not improve. Ordered: OV Est Pt Level 4 - 25427 - 25 min Spasm Muscle Flexeril 10 mg up to 3 times daily as needed for muscle spasm. She understands it may make her drowsy and will use caution. Ordered: OV Est Pt Level 4 - 83641 - 25 min Orders: cyclobenzaprine, 10 mg = 1 tab(s), PO, 3xDay, PRN Muscle spasm, x 10 day(s), # 30 tab(s), 0 Refill(s), [id number] Electronically Signed By: AISHWARYA SUH APRN PLASTIC SURGEON On: 10/01/2015 02:50 PM Source: [facility] POWERCHART Document Id: [id number] LE OBIEE DEVELOPER documented in this encounter Nursing Notes Aishwarya Suh APRN, C.N.P. - 10/01/2015 2:42 PM CST Ambulatory Patient Education The following Patient Education Materials have been given to the patient: Patient Education Materials: Ambulatory BACK CARE TIPS Ambulatory Back Care Tips These are things you can do to prevent a recurrence of acute back pain and to reduce symptoms from chronic back pain: ?? Maintain a healthy weight. If you are overweight, losing weight will help most types of back pain. ?? Exercise is an important part of recovery from most types of back pain. The back is supported by the muscles behind and in front of the spine. This means both the back muscles and the abdominal muscles must be strengthened to provide better support for your spine. ?? Swimming and brisk walking are good overall exercises to improve your fitness level. ?? Practice safe lifting methods (below). ?? Practice good posture when sitting, standing and walking. Avoid prolonged sitting. This puts morestress on the lower back than standing or walking. ?? Wear quality shoes with sufficient arch support. Foot and ankle alignment can affect back symptoms. Women should avoid high heels. ?? Therapeutic massage can help relieve acute and chronic back pain. ?? During the first two days after an acute injury or flare-up of chronic back pain, apply an ice pack to the painful area for 20 minutes every 2-4 hours. This will reduce swelling and pain. Heat (hot shower, hot bath, or heating pad) works well for muscle spasm. You can start with ice, then switch toheat after two days. Some patients feel best alternating ice and heat treatments. Use the one methodthat feels the best to you. ?? You may use acetaminophen (Tylenol) or ibuprofen (Motrin, Advil) to control pain, unless another medicine was prescribed. [NOTE: If you have chronic liver or kidney disease or ever had a stomach ulcer or GI bleeding, talk with your doctor before using these medicines.] Lumbar Stretch Here is a simple stretching exercise that will help relax muscle spasm and keep your back more limber. If exercise makes your back pain worse, dont do it. ?? Lie on your back with your knees bent and both feet on the ground. ?? Slowly raise your left knee to your chest as you flatten your lower back against the floor. Hold for 5 seconds. ?? Relax and repeat the exercise with your right knee. ?? Do 10 of these exercises for each leg. Safe Lifting Method ?? Dont bend over at the waist to lift an object off the floor. Instead, bend your knees and hips tapan squat. ?? Keep your back and head upright. ?? Hold the object close to your body, directly in front of you. ?? Straighten your legs to lift the object. ?? Lower the object to the floor in the reverse fashion. ?? If you must slide something across the floor, push it. Posture Tips SITTING Sit in chairs with straight backs or low-back support. Keep your knees a little higher than your hips. If necessary, use a low stool to prop your feet on, so your feet are resting on a solid surface. When driving, sit up straight. Adjust the seat forward so you are not leaning toward the steering wheel. A small pillow or rolled towel behind your lower back may help if you are driving long distances. STANDING When standing for long periods, shift most of your weight to one leg at a time. Alternate legs everyfew minutes. SLEEPING The best way to sleep is on your side with your knees bent. Put a low pillow under your head to support your neck in a neutral spine position. Avoid thick pillows that bend your neck to one side. Put apillow between your legs to further relax your lower back. If you sleep on your back, put pillows under your knees to support your legs in a slightly flexed position. Use a firm mattress. If your mattress sags, replace it, or use a 1/2-inch plywood board under the mattress to add support. Follow Up with your doctor or as directed by our staff. [NOTE: If X-rays, a CT scan or an MRI scan were taken, they will be reviewed by a radiologist. You will be notified of any new findings that may affect your care.] Return Promptly or contact your doctor if any of the following occur: ?? Pain becomes worse or spreads to your arms or legs ?? Weakness or numbness in one or both arms or legs ?? Loss of bowel or bladder control ?? Numbness in the groin area ?? [id number] [facility], [address] [place] [address], [place] [address]. All rights reserved. This information is not intended as a substitute for professional medical care. Always follow your healthcare professional's instructions. This document has images extracted. Please consider using CoursePeer for all your patient education needs. Source: [facility] POWERCHART Document Id: [id number] LE OBIEE DEVELOPER documented in this encounter Miscellaneous Notes Telephone Encounter - Latonia Anthony L.P.N. - 12/13/2015 9:43 AM CDT Prescription Refill request Document Contains Addenda Addendum by LATONIA ANTHONY LPN on December 13, 2015 11:08:38 CDT Noted. Addendum by OSEAS WILSON PA-C on December 13, 2015 10:11:22 CDT From: OSEAS WILSON PA-C To: LATONIA ANTHONY LPN; Sent: 12/13/2015 10:11:22 CDT Subject: RE: Prescription Refill request done From: LATONIA ANTHONY LPN To: OSEAS WILSON PA-C; Sent: 12/13/2015 09:43:12 CDT Subject: Prescription Refill request Medication: CYANOCOBALAMIN 1000 MCG INJ 1ML VIAL INJECT 1ML IN THE MUSCLE ONCE MONTHLY PRESCRIBED QTY: 10 LAST REFILL: 10/03/2015 Source: [facility] POWERCHART Document Id: [id number] Electronically signed by Ruby, [facility] Resident Care Director [id number] at 01/03/2017 8:59 AM CDT Telephone Encounter - Kenia Klein R.N. 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 - 10/01/2015 2:45 PM CST PHQ-9 PHQ-9 Entered On: 10/01/2015 14:46 ORACLE OBIEE DEVELOPER Performed On: 10/01/2015 14:45 ORACLE OBIEE DEVELOPER by BASIA SHEETS LPN PHQ-9 Little interest or pleasure in doing things : Several days Feeling down, depressed, or hopeless : Several days Trouble falling or staying asleep, or sleeping too much : Nearly every day Feeling tired or having little energy : Several days Poor appetite or overeating : Several days Feeling bad about yourself or that you are a failure : Not at all Trouble concentrating on things : Several days Moving or speaking slowly; restless or fidgety : Not at all Thoughts that you would be better off /hurting self : Not at all PHQ-9 Calculated Score : 8 Problems make work, home, or dealing with others : Somewhat difficult BASIA SHEETS LPN - 10/01/2015 14:45 ORACLE OBIEE DEVELOPER Source: [facility] [employer] Mobile Document Id: [id number] ORACLE OBIEE DEVELOPER!13 LE OBIEE DEVELOPER Miscellaneous - Aishwarya Suh APRN, C.N.P. - 10/01/2015 2:42 PM CST Ambulatory Patient Summary [address] [id number] Visit Information Name: GRICELDA REID [facility] Number: [id number] Current Date: 10/01/2015 14:42:44 Physicians Attending Provider: AISHWARYA SUH APRN, CNP Primary Care Provider: OSEAS WILSON PA-C GRICELDA [...] Take Indications/Special Instructions/Comments/Notes for Patient Medication Changes/Routing cyclobenzaprine (Flexeril 10 mg oral tablet) 1 Tablet(s), Oral, three times a day as needed for Muscle spasm x 10 day(s) New Routed to [address] [id number] Stop Taking the Following Medications: Medication list as of 10-01-15 14:42 Attention: If you have any medications at home that are not on this list, DO NOT take them until youcontact your provider for clarification. Give a copy of your medication list to your primary care provider. Update your medication list any time medications or doses are changed and carry your medication list at all times in case of emergency. Electronically Signed By: AISHWARYA SUH APRN, CNP Signed On:01-OCT-2015 14:42:29 Your Allergies & Intolerances Substance Reaction Symptoms Category Comments Keflex Drug Your Problem List Problem Status Onset Comments Degenerative Joint Disease Multiple Sites Active Gastric Bypass S/P Active Disorder Attention Deficit Hyperactive (ADHD) Active Depression Anxiety Active Hypothyroidism NOS Active Migraine Headache (AGUILERA) NOS Active Pain Back Lumbar Active Complic Morbid Obesity BodyMassIndex BMI >40 Preg Antepartum Active Dependence Drug Opioid NOS Active Your Upcoming Appointments Date Time Location Provider No Appointments found Attention: Contact your local Clinic if further appointment detail needed. Back Care Tips These are things you can do to prevent a recurrence of acute back pain and to reduce symptoms from chronic back pain: ?? Maintain a healthy weight. If you are overweight, losing weight will help most types of back pain. ?? Exercise is an important part of recovery from most types of back pain. The back is supported by the muscles behind and in front of the spine. This means both the back muscles and the abdominal muscles must be strengthened to provide better support for your spine. ?? Swimming and brisk walking are good overall exercises to improve your fitness level. ?? Practice safe lifting methods (below). ?? Practice good posture when sitting, standing and walking. Avoid prolonged sitting. This puts morestress on the lower back than standing or walking. ?? Wear quality shoes with sufficient arch support. Foot and ankle alignment can affect back symptoms. Women should avoid high heels. ?? Therapeutic massage can help relieve acute and chronic back pain. ?? During the first two days after an acute injury or flare-up of chronic back pain, apply an ice pack to the painful area for 20 minutes every 2-4 hours. This will reduce swelling and pain. Heat (hot shower, hot bath, or heating pad) works well for muscle spasm. You can start with ice, then switch toheat after two days. Some patients feel best alternating ice and heat treatments. Use the one methodthat feels the best to you. ?? You may use acetaminophen (Tylenol) or ibuprofen (Motrin, Advil) to control pain, unless another medicine was prescribed. [NOTE: If you have chronic liver or kidney disease or ever had a stomach ulcer or GI bleeding, talk with your doctor before using these medicines.] Lumbar Stretch Here is a simple stretching exercise that will help relax muscle spasm and keep your back more limber. If exercise makes your back pain worse, dont do it. ?? Lie on your back with your knees bent and both feet on the ground. ?? Slowly raise your left knee to your chest as you flatten your lower back against the floor. Hold for 5 seconds. ?? Relax and repeat t he exercise with your right knee. ?? Do 10 of these exercises for each leg. Safe Lifting Method ?? Dont bend over at the waist to lift an object off the floor. Instead, bend your knees and hips tapan squat. ?? Keep your back and head upright. ?? Hold the object close to your body, directly in front of you. ?? Straighten your legs to lift the object. ?? Lower the object to the floor in the reverse fashion. ?? If you must slide something across the floor, push it. Posture Tips SITTING Sit in chairs with straight backs or low-back support. Keep your knees a little higher than your hips. If necessary, use a low stool to prop your feet on, so your feet are resting on a solid surface. When driving, sit up straight. Adjust the seat forward so you are not leaning toward the steering wheel. A small pillow or rolled towel behind your lower back may help if you are driving long distances. STANDING When standing for long periods, shift most of your weight to one leg at a time. Alternate legs everyfew minutes. SLEEPING The best way to sleep is on your side with your knees bent. Put a low pillow under your head to support your neck in a neutral spine position. Avoid thick pillows that bend your neck to one side. Put apillow between your legs to further relax your lower back. If you sleep on your back, put pillows under your knees to support your legs in a slightly flexed position. Use a firm mattress. If your mattress sags, replace it, or use a 1/2-inch plywood board under the mattress to add support. Follow Up with your doctor or as directed by our staff. [NOTE: If X-rays, a CT scan or an MRI scan were taken, they will be reviewed by a radiologist. You will be notified of any new findings that may affect your care.] Return Promptly or contact your doctor if any of the following occur: ?? Pain becomes worse or spreads to your arms or legs ?? Weakness or numbness in one or both arms or legs ?? Loss of bowel or bladder control ?? Numbness in the groin area ?? [id number] [place] [address]. All rights reserved. This information is not intended as a substitute for professional medical care. Always follow your healthcare professional's instructions. Consider Using Patient Online Services Patient Online [...] you dont have one. Go to [email or web address] and click on Create Your Account. Then, follow the directions to complete the online form. Youll be asked for your [facility] number which you can find at the top of this document. Your Goals/Additional instructions: This document has images extracted. Please consider using CoursePeer for all your patient education needs. Source: [facility] DediServeCHART Document Id: [id number] LE OBIEE DEVELOPER Miscellaneous - Aishwarya Suh APRN, C.N.P. - 10/01/2015 2:42 PM CST Ambulatory Discharge Medication List [address] [place], [place] [id number] Visit Information Name: GRICELDA REID [facility] Number: [id number] Visit Date: 10/01/2015 14:42:43 Attending Provider: AISHWARYA SUH APRN, CNP Primary Care Provider: OSEAS WILSON PA-C JEANETTEGRICELDA Horvath has been given the following list of medications: Your Medications It is important to take your medications as directed. Use a pill box or chart to help remind you to take your medications. Please let your doctor or nurse know if you have problems taking your medications. Medication/Strength How to Take Indications/Special Instructions/Comments/Notes for Patient Medication Changes/Routing cyclobenzaprine (Flexeril 10 mg oral tablet) 1 Tablet(s), Oral, three times a day as needed for Muscle spasm x 10 day(s) New Routed to [address] [id number] Stop Taking the Following Medications: Medication list as of 10-01-15 14:42 Attention: If you have any medications at home that are not on this list, DO NOT take them until youcontact your provider for clarification. Give a copy of your medication list to your primary care provider. Update your medication list any time medications or doses are changed and carry your medication list at all times in case of emergency. Electronically Signed By: AISHWARYA SUH APRN PLASTIC SURGEON Signed On:01-OCT-2015 14:42:29 Additional Information: [facility] [place] Document Id: [id number] LE OBIEE DEVELOPER Miscellaneous - Basia Sheets L.P.N. 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 Started about 1 1/2 weeks ago. Having pain on right lower back since 09/15/15. Temperature Core : 37.0 DegC(Converted to: 98.6 DegF) Peripheral Pulse Rate : 68 /min Respiratory Rate : 20 /min Heart Rhythm : Regular Systolic Blood Pressure : 124 mmHg Diastolic Blood Pressure : 86 mmHg NIBP Mean : 99 mmHg BP Location : Left upper extremity Blood Pressure Cuff Size : Large Height : 165 cm(Converted to: 5 ft 5 inch(es), 65 inch(es)) Actual Weight : 86.7 kg(Converted to: 191 lb 2 oz) Weight Source : Standing scale Dosing Weight Clinic : 86.7 kg Clinic BSA : 1.99 Body Mass Index : 31.85 kg/m2 BASIA SHEETS LPN - 10/01/2015 14:27 ORACLE OBIEE DEVELOPER General Info Information Given By : Patient Preferred Communication Mode : Verbal Languages : Persian Is Patient Female and 13-50 no hysterectomy : No BASIA SHEETS LPN - 10/01/2015 14:27 ORACLE OBIEE DEVELOPER Subjective Pain Symptoms : Yes BASIA SHEETS LPN - 10/01/2015 14:27 ORACLE OBIEE DEVELOPER Pain Scale Pain Scale Verbal 0-10 : Open BASIA SHEETS LPN - 10/01/2015 14:27 ORACLE OBIEE DEVELOPER Pain Pain Assessment Grid Pain 1 Pain 2 Location : Bladder Lower back Laterality : Right Intensity : 6 10 Time Pattern : Intermittent Constant BASIA SHEETS LPN - 10/01/2015 14:27 ORACLE OBIEE DEVELOPER BASIA SHEETS LPN - 10/01/2015 14:27 ORACLE OBIEE DEVELOPER Dependent Habits Exposure to Tobacco Smoke : Other: former Smoking Status : Former smoker Tobacco 2A : Yes Tobacco Use/Currently Using : No Tobacco Use/Last 30 Days : No Tobacco Use/Last 12 months : No FINESSEBASIA Jalloh MARY CARMEN FERREIRA - 10/01/2015 14:27 ORACLE OBIEE DEVELOPER Caffeine Use Grid Caffeine Use : Current Type : Chocolate, Coffee, Soft drinks Frequency : Daily Amount : 1 cup, monsters 4 per day Last Use : 02/07/15 LESLEYNICKIEBASIA Jalloh MARY CARMEN FERREIRA - 10/01/2015 14:27 ORACLE OBIEE DEVELOPER Recreational Drug Use Grid Drug Use : None LESLEYMARKTABATHABASIAPENG LENTZ LPN - 10/01/2015 14:27 ORACLE OBIEE DEVELOPER Source: [facility] [employer] Mobile Document Id: [id number] ORACLE OBIEE DEVELOPER!55 LE OBIEE DEVELOPER Miscellaneous - Basia Sheets L.P.NRafal - 10/01/2015 2:26 PM CST Health Assessment Health Assessment Entered On: 10/01/2015 14:27 ORACLE OBIEE DEVELOPER Performed On: 10/01/2015 14:26 ORACLE OBIEE DEVELOPER by BASIA SHEETS LPN Health Assessment Complete Health Assessment Complete or Modified : Annual Health Assessment Annual Health Assessment Completed : Yes BASIA SHEETS LPN - 10/01/2015 14:26 ORACLE OBIEE DEVELOPER Nutrition Nutrition Risk Factors by History Adult : None LESLEYMARKTABATHABASIAPENG LENTZ LPN - 10/01/2015 14:26 ORACLE OBIEE DEVELOPER Functional Current Daily Living Assistance : None SUDEEP BASIAPENG LENTZ LPN - 10/01/2015 14:26 ORACLE OBIEE DEVELOPER Dependent Habits Exposure to Tobacco Smoke : Other: former Smoking Status : Former smoker Tobacco 2A : Yes Tobacco Use/Currently Using : No Tobacco Use/Last 30 Days : No Tobacco Use/Last 12 months : No SUDEEPTABATHABASIAPENG LENTZ LPN - 10/01/2015 14:26 ORACLE OBIEE DEVELOPER Caffeine Use Grid Caffeine Use : Current Type : Chocolate, Coffee, Soft drinks Frequency : Daily Amount : 1 cup, monsters 4 per day Last Use : 02/07/15 FINESSEShubham BASIAPENG LENTZ LPN - 10/01/2015 14:26 ORACLE OBIEE DEVELOPER Alcohol Use : No BASIA SHEETS LPN - 10/01/2015 14:26 ORACLE OBIEE DEVELOPER Recreational Drug Use Grid Drug Use : None BASIA SHEETS TEACHERS' AIDE - 10/01/2015 14:26 ORACLE OBIEE DEVELOPER Psychosocial Domestic Abuse Concerns : None Behavioral Health Screen/Safety Assmt : No Tenriism Preference : No qualifying data available. BASIA SHEETS TEACHERS' AIDE - 10/01/2015 14:26 ORACLE OBIEE DEVELOPER Advance Directive Advanced Directives : No Advance Directive Additional Information : Yes BASIA SHEETS TEACHERS' AIDE - 10/01/2015 14:26 ORACLE OBIEE DEVELOPER Educ Needs Learning Style Preference Adult Grid Patient : Printed materials, Verbal explanation Family : Verbal explanation, Printed materials BASIA SHEETS JHON - 10/01/2015 14:26 ORACLE OBIEE DEVELOPER Source: [facility] POWERCHART Document Id: [id number] ORACLE OBIEE DEVELOPER!37 LE OBIEE DEVELOPER documented in this encounter Plan of Treatment Not on filedocumented as of this encounter Procedures Procedure Name Priority Date/Time Associated Diagnosis Comme nts URINALYSIS, Routine 10/01/2015 2:25 PM Results f or this MIDSTREAM, WITH ORACLE OBIEE DEVELOPER procedure ar e in CULTURE IF the results INDICATED section. documented in this encounter Results (ABNORMAL) Urinalysis, Midstream, with culture if indicated (10/01/2015 2:25 PM ORACLE OBIEE DEVELOPER) [facility] Method Time Signature Clarity Clear Clear POWERCHART HXUr Color Yellow Colorless POWERCHART Specific 1.010 POWERCHART [place], POCT, U pH, POCT, Urine 7.0 <5.0 POWERCHART Protein, Ur, Negative Negative POWERCHART Dip MGDL Glucose Negative Negative POWERCHART MGDL Ketones, QL(U) Negative Negative POWERCHART MGDL HXBILIRUBIN Negative Negative POWERCHART HXBLOOD Negative Negative POWERCHART Leukocyte Negative Negative POWERCHART Esterase HXNITRITE Negative Negative POWERCHART Urobilinogen 0.2 0.2 MGDL POWERCHART HXUR WBC. Occ-3 None Seen POWERCHART HPF HXUR RBC. Occ-2 None Seen POWERCHART HPF Squamous Occ-3 (A) None Seen POWERCHART Epithelial HPF HXUR Bacteria, Present (A) None Seen POWERCHART Specimen (Source) Anatomical Collection Method Collection Time Re ceived Time Location / / Volume Laterality Urine, First 10/01/2015 2:25 PM Voided ORACLE OBIEE DEVELOPER Aishwarya Suh APRN, C.N.P. LAB URINE ORDERABLES Performing Organization Address City/State/ZIP Code Phon e Number POWERCHART documented in this encounter Visit Diagnoses Not on filedocumented in this encounter Additional Health Concerns Assessment Noted Time PHQ-9 Depression Total Score: 8 10/01/2015 2:45 PM ORACLE OBIEE DEVELOPER documented as of this encounter
--- OUTSIDE RECORDS SUMMARY | 2022-04-10 15:01 | XMS_ITS | Encounter Summary ---
:1980 Author Organization [facility] Address [address] [place] [address] Care Team Providers Name Role Phone Unavailable Primary Care Provider Unavailable Encounter Details Date Type Department Care Team Description 10/06/2016 Hospital Encounter HX [facility] FAMILYPRA Kalina Wilson P.A.-C. [address] [place] [address] (Wo rk) Social History Tobacco Use Types [...] or relatives? How often do you attend latter day or Never 2021 moravian services? 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 encounter Last Filed Vital Signs Vital Sign Reading Time Taken Comments Blood Pressure 104/70 10/06/2016 12:36 PM PHYSICAL THERAPY PROFESSOR Pulse 88 10/06/2016 12:36 PM PHYSICAL THERAPY PROFESSOR Temperature - - Respiratory Rate 14 10/06/2016 12:36 PM PHYSICAL THERAPY PROFESSOR Oxygen Saturation - - Inhaled Oxygen Concentration - - Weight 95 kg (209 lb 7 oz) 10/06/2016 12:36 PM PHYSICAL THERAPY PROFESSOR Height 165 cm (5' 4.96) 10/06/2016 12:36 PM PHYSICAL THERAPY PROFESSOR Body Mass Index 34.89 10/06/2016 12:36 PM PHYSICAL THERAPY PROFESSOR documented in this encounter Medications at Time [...] encounter Progress Notes Oseas Wilson P.A.-C. - 10/06/2016 12:28 PM CST [id number] CHIEF COMPLAINT/REASON FOR VISIT Ear pain and insomnia. HISTORY OF PRESENT ILLNESS Gricelda is a 35-year-old female who has a longstanding history of insomnia. She has anxiety as well that has been ongoing problem for her. She has seen a therapist in the past. She currently is on a couple different medicines for her anxiety. She takes buspirone as well as the Lexapro on a regular basis. She feels like this is well controlled but she has always had problem sleeping. She has tried melatonin. She has tried Benadryl. She has tried trazodone. She did not think the trazodone helped her. She tried Ambien but it made her eat in the middle of the night and also made her get up and sleep walkwhich she is concerned about it. She also has 2 Monster drinks every day which clearly could contribute to issues with insomnia. She also has had some right ear pain that has bothered her for the last couple weeks to a month and she is wondering what she should do about this. VITAL SIGNS Noted in the EMR. PHYSICAL EXAMINATION GENERAL: She appears in no acute distress. ENT: TMs are not erythematous. Throat no erythema. NECK: No lymphadenopathy. No thyroid masses. IMPRESSION/REPORT/PLAN 1. Eustachian tube disorder. I spent some time discussing this with her. She is going to try a nasalsaline rinse. She has tried Flonase in the past but the saline rinse does not help improve her symptoms, she will let us know. She has also tried some Sudafed for this. 2. Insomnia. We had a long discussion about this today. We talked about treatment options. I think it is likely either poorly controlled anxiety and depression that is keeping her awake versus the ingestion of 2 Monster drinks on a daily basis. She says she does not use her bed for anything other than sleeping. She tries to avoid electronics towards bedtime but I stressed the importance of her staying away from stimulation such as ingestion of this type of drink. She is going to try to wean herself off these. I am going to put her back on the trazodone. For now she will take 1 to 2 tablets of the 100 mg pills at bedtime and see this responds. In the past she had been on 200 mg. I want her to plug in with a therapist and I [facility]. I want to get her set up with a therapist because this will help hopefully with her anxiety and depression. If her symptoms worsen or not improve with this therapy, she will let us know. Otherwise, I am going to have her followup as needed. Total time spent today with Gricelda was 30 minutes, of which 20 of it was in [id number] coordinationof care and counseling. Oseas Wilson P.A.-C./caitlyn Electronically Signed By: OSEAS WILSON PA-C On: 10/08/2016 08:21 AM Source: [facility] MHSDOLBEYNONRADSYS Document Id: [id number] ICAL THERAPY PROFESSOR documented in this encounter Miscellaneous Notes Miscellaneous - Conversion, Historical Provider Ser - 05/08/2017 10:55 AM CDT Medication Refill Msg Document Contains Addenda Addendum by MERI GARCIA MD on May 11, 2017 10:00:35 CDT Submitted: Complete:lidocaine topical (Salonpas Maximum Strength 4% topical film) Signed by MERI GARCIA MD 05/11/2017 10:00:33 Addendum by MERI GARCIA MD on May 11, 2017 10:00:17 CDT Submitted: Order:lidocaine topical (Lidoderm 5% topical film) 1 patch(es) Topical Daily Apply to intact skin and remove patch after a maximum of 12 hr of application within a 24 hr period Qty: 30 patch(es) Refills: 1 Substitutions Allowed Route To Pharmacy [id number] Signed by MERI GARCIA MD Addendum by FRANCIA ROSALES RN on May 08, 2017 11:07:15 CDT From: FRANCIA ROSALES RN ([facility] Medication Refill) To: MERI GARCIA MD; Sent: 05/08/2017 11:07:15 CDT Subject: Med not covered - Salonpas Lidocaine Patch From: BJ BELTRÁN ([facility] Handle Attacher) To: RAMON Callahan Medication Refill; Sent: 05/08/2017 10:55:30 CDT Subject: Medication Refill Ms Provider: Meri Garcia [facility]: [facility] Name of Medication: Salonpas Lidocaine 4% patch Pharmacy Communication: Drug not covered by inusrance. Lidocaine 5% patches may be covered or otheralterntative. Thank you. Source: [facility] SwyzzleCHART Document Id: [id number] Telephone Encounter - Francia Rosales R.N. - 04/14/2017 5:14 PM CDT refill request - Strattera Document Contains Addenda Addendum by OSEAS WILSON PA-C on April 15, 2017 09:48:32 CDT From: OSEAS WILSON PA-C To: RAMON [facility]well Medication Refill; Sent: 04/15/2017 09:48:32 CDT Subject: RE: refill request - Strattera done From: FRANCIA ROSALES RN ( [facility] Medication Refill) To: OSEAS WILSON PA-C; Sent: 04/14/2017 17:14:16 CDT Subject: refill request - Strattera Caller is: ( _ ) Patient ( _ ) Mother ( _ ) Father ( _ ) Spouse ( _ ) Daughter ( _ ) Son ( x ) Pharmacy ( _ ) Other: _ Provider: [facility] Name of Medications Needing Refill: Strattera Last Refill Date: 03/19/17 Additional Information: Direct to provider medication. Last / Future Appointment: 10/06/16 Disposition: ( x ) Send to Pharmacy ( _ ) Call to Pharmacy ( _ ) Patient will turkey picker Script ( _ ) Mail Rx to Patient Source: [facility] SwyzzleCHART Document Id: [id number] Miscellaneous - Kenia Klein R.N. - 12/31/2016 4:43 PM CDT keppra Document Contains Addenda Addendum by LORE FARLEY RN on January 01, 2017 17:35 CDT Gricelda calling for message. Message given that Keppra was refilled. She will work on getting a followup appointment set up with neurology. Addendum by KENIA KLEIN RN on January 01, 2017 08:52:05 CDT Message left for patient to call back. Addendum by OSEAS WILSON PA-C on December 31, 2016 17:12:46 CDT From: OSEAS WILSON PA-C To: RAMON Callahan Medication Refill; Sent: 12/31/2016 17:12:46 CDT Subject: RE: keppra She was supposed to follow up with Neurology 6 months ago. I refilled her keppra From: KENIA KLEIN RN ([facility] Medication Refill) To: OSEAS WILSON PA-C; Sent: 12/31/2016 16:43:24 CDT Subject: keppra Caller is: ( ) Patient ( ) Mother ( ) Father ( ) Spouse ( ) Daughter ( ) Son ( david/clem ) Pharmacy ( ) Other: Provider: [facility]: Name of Medications Needing Refill: Keppra 500 mg Last Refill Date: 11/20/16 qty 60 Additional Information: 1 tab po daily.... Last / Future Appointment: 09/26/16 Disposition: ( x ) Send to Pharmacy ( ) Call to Pharmacy ( ) Patient will turkey picker Script ( ) Mail Rxto Patient Source: [facility] Epoch Document Id: [id number] Miscellaneous - Kenia Klein R.N. - 11/10/2016 10:50 AM CDT cetrizine Document Contains Addenda Addendum by OSEAS WILSON PA-C on November 10, 2016 11:00:21 CDT From: OSEAS WILSON PA-C To: [facility] Medication Refill; Sent: 11/10/2016 11:00:21 CDT Subject: RE: cetrizine done From: KENIA KLEIN RN ([facility] Medication Refill) To: OSEAS WILSON PA-C; Sent: 11/10/2016 10:50:43 CDT Subject: cetrizine Caller is: ( ) Patient ( ) Mother ( ) Father ( ) Spouse ( ) Daughter ( ) Son ( david/clem ) Pharmacy ( ) Other: Provider: [facility]: Name of Medications Needing Refill: cetrizine 10 mg Last Refill Date: 09/29/16 qty 28 Additional Information: 1 tab po for 28 days.....last refill Cherri atuck.... Last / Future Appointment: 10/28/16 Disposition: ( x ) Send to Pharmacy ( ) Call to Pharmacy ( ) Patient will turkey picker Script ( ) Mail Rxto Patient Source: [facility] POWERCHART Document Id: [id number] Electronically signed by Ruby, [facility] Software Program Manager [id number] at 01/20/2017 12:54 AM CDT Miscellaneous - Oseas Wilson P.A.-C. - 10/06/2016 1:35 PM CST Ambulatory Patient Summary [address] [id number] Visit Information Name: GRICELDA ROBERTS [facility] Number: [id number] Current Date: 10/06/2016 13:35:46 Physicians Attending Provider: OSEAS WILSNO PA-C Primary Care Provider: OSEAS WILSON PA-C GRICELDA ROBERTS has been given the following list of [...] 1 Tablet(s), Oral, two times a day cyanocobalamin (Vitamin B12 1000 mcg/mL [...] Oral, once a day New Routed to [id number] [place] [address] verapamil (verapamil 120 mg/24 hours oral capsule, extended release) 1 cap, Oral, once a day Stop Taking the Following Medications: Medication list as of 10-06-16 13:35 Attention: If you have any medications at [...] Electronically Signed By: OSEAS WILSON PA-C Signed On:06-OCT-2016 13:35:42 Your Allergies & Intolerances Substance Reaction Symptoms [...] Your Upcoming Appointments Date Time Location Provider 10/16/2016 10:00 [facility] Room 1 10/28/2016 11:15 [facility] PM&R Miguel A FLORES, Meri Rosas Attention: Contact your local Clinic if further [...] if you dont have one. Go to [email or web address] and click on Create Your Account. Then, follow the directions to complete the online form. Youll be asked for your [facility] number which you can find at the top of this document. Your Goals/Additional instructions: Source: [facility] POWERCHART Document Id: [id number] ICAL THERAPY PROFESSOR Miscellaneous - Oseas Wilson P.A.-C. - 10/06/2016 1:35 PM CST Ambulatory Discharge Medication List [address] [id number] Visit Information Name: GRICELDA ROBERTS [facility] Number: [id number] Current Date: 10/06/2016 13:35:45 Attending Provider: OSEAS WILSON PA-C Primary Care Provider: OSEAS WILSON PA-C GRICELDA ROBERTS has been given the following list of [...] 1 Tablet(s), Oral, two times a day cyanocobalamin (Vitamin B12 1000 mcg/mL [...] Oral, once a day New Routed to [id number] [place] [address] verapamil (verapamil 120 mg/24 hours oral capsule, extended release) 1 cap, Oral, once a day Stop Taking the Following Medications: Medication list as of 10-06-16 13:35 Attention: If you have any medications at [...] Electronically Signed By: OSEAS WILSON PA-C Signed On:06-OCT-2016 13:35:42 Additional Information: Source: [facility] POWERCHART Document Id: [id number] ICAL THERAPY PROFESSOR Miscellaneous - Sakina Schneider L.PIsiah - 10/06/2016 12:36 PM CST Adult Director Of Convention Services Intake/History Document Has Been Updated Adult Director Of Convention Services Intake/History Entered On: 10/06/2016 12:42 PHYSICAL THERAPY PROFESSOR Performed On: 10/06/2016 12:36 PHYSICAL THERAPY PROFESSOR by SAKINA SCHNEIDER LPN Intake Chief Complaint : med check- sleep walkiing on ambien R ear pain SAKINA SCHNEIDER LPN - 10/06/2016 12:42 PHYSICAL THERAPY PROFESSOR Temperature Core : 36.3 DegC(Converted to: 97.3 DegF) (LOW) Peripheral Pulse Rate : 88 /min Respiratory Rate : 14 /min Systolic Blood Pressure : 104 mmHg Diastolic Blood Pressure : 70 mmHg NIBP Mean : 81 mmHg BP Location : Right upper extremity Blood Pressure Cuff Size : Large Height : 165 cm(Converted to: 5 ft 5 inch(es), 65 inch(es)) Actual Weight : 95 kg(Converted to: 209 lb 7 oz) Weight Source : Standing scale Dosing Weight Clinic : 95 kg Clinic BSA : 2.09 Body Mass Index : 34.89 kg/m2 SAKINA SCHNEIDER LPN 10/06/2016 12:36 PHYSICAL THERAPY PROFESSOR General Info Information Given By : Patient Languages : Paraguayan Is Patient Female and 13-50 no hysterectomy : No SAKINA SCHNEIDER [facility] 10/06/2016 12:36 PHYSICAL THERAPY PROFESSOR Subjective Pain Symptoms : Yes SAKINA SCHNEIDER [facility] 10/06/2016 12:36 PHYSICAL THERAPY PROFESSOR Pain Scale Pain Scale Verbal 0-10 : Open SAKINA SCHNEIDER [facility] 10/06/2016 12:36 PHYSICAL THERAPY PROFESSOR Pain Pain Assessment Grid Pain 1 Location : Ear SAKINA SCHNEIDER [facility] 10/06/2016 12:36 PHYSICAL THERAPY PROFESSOR Dependent Habits Exposure to Tobacco Smoke : Other: former Smoking Status : Former smoker Tobacco 2A : Yes Tobacco Use/Currently Using : No Tobacco Use/Last 30 Days : No Tobacco Use/Last 12 months : No Tobacco Last Use/Year : 1997 SAKINA SCHNEIDER [facility] 10/06/2016 12:36 PHYSICAL THERAPY PROFESSOR Caffeine Use Grid Caffeine Use : Current Type : Chocolate, Coffee, Soft drinks Frequency : Daily Amount : 1 cup, monsters 4 per day Last Use : 06/26/2016 SAKINA SCHNEIDER [facility] 10/06/2016 12:36 PHYSICAL THERAPY PROFESSOR Recreational Drug Use Grid Drug Use : None SAKINA SCHNEIDER [facility] 10/06/2016 12:36 PHYSICAL THERAPY PROFESSOR Source: [facility] Document Id: [id number] PHYSICAL THERAPY PROFESSOR!3 ICAL THERAPY PROFESSOR documented in this encounter Plan of Treatment Not on filedocumented as of this encounter Visit Diagnoses Not on filedocumented in this encounter Additional Health Concerns Assessment Noted Time PHQ-9 Depression Total Score: 8 06/12/2016 10:45 AM CD T documented as of this encounter
--- OUTSIDE RECORDS SUMMARY | 2022-04-10 15:01 | XMS_ITS | Encounter Summary ---
:1980 Author Organization [facility] Address [address] [place] [address] Care Team Providers Name Role Phone Unavailable Primary Care Provider Unavailable Encounter Details Date Type Department Care Team Description 01/22/2016 Hospital Encounter HX [facility] Akhil Meza P.A.-C. [address] [place] [address] (Wo rk) Social History [...] do you attend taoist or Never 2021 jewish services? 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 documented as of this encounter Nursing Notes Trista Merida CRafalMRafalARafal - 01/22/2016 3:06 PM CDT labs Patient presented for blood draw for labs. I was unable to obtain any blood from left antecubital. I had Katia Magallanes, REJI try, she was unable to obtain sufficient amount from right forearm. Patient went to y 60 to the lab. Electronically Signed By: TRISTA MERIDA CMA On: 01/22/2016 03:09 PM [facility] POWERCH[facility] Document Id: [id number] documented in this encounter Miscellaneous Notes Telephone Encounter - Conversion, Historical Provider Ser - 12/21/2015 12:43 PM CDT *Phone Message Document Contains Addenda Addendum by SAKINA JENSEN LPN on December 21, 2015 15:08:44 CDT From: SAKINA JENSEN LPN ( [facility]) To: OSEAS MEZA PA-C; Sent: 12/21/2015 15:08:44 CDT Subject: FW: *Phone Message Addendum by SAKINA JENSEN LPN on December 21, 2015 15:08:35 CDT Gricelda chose to stay with the ambien?? but thank you Addendum by OSEAS MEZA PA-C on December 21, 2015 14:27:23 CDT From: OSEAS MEZA PA-C To: RAMON Resendez; Sent: 12/21/2015 14:27:23 CDT Subject: RE: *Phone Message She could try benadryl or melatonin over the counter or I could increase Trazodone that she is on. Addendum by SAKINA JENSEN LPN on December 21, 2015 13:46:16 CDT From: SAKINA JENSEN LPN ( [facility] Res[facility]) To: OSEAS MEZA PA-C; Sent: 12/21/2015 13:46:16 CDT Subject: FW: *Phone Message Addendum by SAKINA JENSEN LPN on December 21, 2015 13:46:03 CDT Gricelda found out from family that previously on ambien she would walk in her sleep so would prefer something else please.... From: FRANCIA CROSS ([facility]) To: RAMON Meza Nurse; Sent: 12/21/2015 12:43:33 CDT Subject: *Phone Message Caller is: ( x ) Patient ( ) Mother ( ) Father ( ) Spouse ( ) Daughter ( ) Son ( ) Pharmacy ( ) Other: Physician: Patient MRN #: Reason for Call: Message: Patient called in and wants to change her sleep medication. Please call her at [phone] Advice/Action: Source used: ( ) Verbalizes understanding [...] back cell phone number ( ) Source: [facility] POWERCHART Document Id: [id number] documented in this encounter Plan of Treatment Not on filedocumented as of this encounter Procedures Procedure Name Priority Date/Time Associated Diagnosis Comme nts THYROID-STIMULATING Routine 01/22/2016 3:27 PM Re sults for this HORMONE-SENSITIVE CDT procedure are in (S-TSH) the results section. documented in this encounter Results Thyroid-Stimulating Hormone-Sensitive (s-TSH) (01/22/2016 3:27 PM CDT) P athologist Signature TSH 0.47 0.27 - 4.20 POWERCHART (Thyrotropin) MIUL Specimen (Source) Anatomical Collection Method Collection Time Re ceived Time Location / / Volume Laterality Blood 01/22/2016 3:27 PM CDT Oseas Meza P.A.-C. 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
--- OUTSIDE RECORDS SUMMARY | 2022-04-10 15:01 | XMS_ITS | Encounter Summary ---
:1980 Author Organization [facility] Address [address] [place] [id number] Care Team Providers Name Role Phone Unavailable Primary Care Provider Unavailable Encounter Details Date Type Department Care Team Description 12/27/2015 Hospital Encounter HX [facility] Akhil Wilson P.A.-C. [address] [place] [address] (Wo rk) Social History Tobacco [...] do you attend bahai or Never 2021 pentecostalism services? 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 - 12/27/2015 12:46 PM CDT [id number] REVISION HISTORY 12/28/2015 at 2:57 PM - Modification to IMPRESSION/REPORT/PLAN by Oseas Wilson PA-C. CHIEF COMPLAINT/REASON FOR VISIT Follow up pneumonia. HISTORY OF PRESENT ILLNESS Gricelda is a 35-year-old female who recently was hospitalized with pneumonia. She also had a seizure. She has a followup EEG and appointment with neurology coming up. She continues to have a cough and now has sinus congestion that just does not seem to clear. VITAL SIGNS Noted in the EMR. PHYSICAL EXAMINATION GENERAL: She appears in no acute distress. ENT: TMs are not erythematous. Throat: No erythema. She has tenderness to percussion over the right maxillary sinus. HEART: Regular rate and rhythm. No murmurs. LUNGS: Loose rhonchi auscultated in the right lower lobe. This did clear with deep coughing but it definitely was prominent prior to her coughing. IMPRESSION/REPORT/PLAN Pneumonia. Her symptoms hopefully are resolving, although the doxycycline really does not seem to have cleared things up for her. She is continuing to push fluids but just does not feel like she is bouncing back. I am going to put her on Levaquin 500 mg once daily for 10 days. I want her to continue to push fluids and if her symptoms do not completely resolve by that time or if they worsen at all in the meantime I want her to be seen. She is in agreement with this plan. If there is any further questions or problems, she will let us know. She has had some ongoing knee pain as well that has been chronic. She wants to make an appointment to see Dr. 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 She was requesting some Vicodin today, I told her I want to stay away from using that. I offered her to use some tramadol on an as- needed basis and she said she would like to give this a try. If there is any further questions or any problems, she will let us know. Total time spent today with Gricelda was 25 minutes, of which 15 of it was in coordination of care and [id number] counseling. Oseas Wilson PA-C/caitlyn Electronically Signed By: OSEAS WILSON PA-C On: 12/28/2015 09:12 AM Oseas Wilson PA-C/erin Electronically Signed By: OSEAS WILSON PA-C On: 12/28/2015 09:12 AM Co-Signed By: OSEAS WILSON PA-C On: 12/28/2015 03:09 PM Source: [facility] [id number] Document Id: [id number] documented in this encounter Miscellaneous Notes Telephone Encounter - Conversion, Historical Provider Ser - 02/13/2016 2:23 PM CDT *Phone Message/Oseas Wilson Document Contains Addenda Addendum by SAKINA JENSEN LPN on February 15, 2016 10:09:11 CDT left msg to return my call Addendum by SAKINA JENSEN LPN on February 13, 2016 16:55:41 CDT will get back to us tomorrow, not available now per Addendum by OSEAS WILSON PA-C on February 13, 2016 16:19:50 CDT From: OSEAS WILSON PA-C To: RAMON Wilson Nurse; Sent: 02/13/2016 16:19:50 CDT Subject: RE: *Phone Message/Oseas Wilson We can try a muscle relaxant. Flexeril. Otherwise I recommend Tylenol. Other options would be Gabapentin or Cymbalta Addendum by SAKINA JENSEN LPN on February 13, 2016 15:11:09 CDT From: SAKINA JENSEN LPN (RAMON Wilson Nurse) To: OSEAS WILSON PA-C; Sent: 02/13/2016 15:11:09 CDT Subject: FW: *Phone Message/Oseas Wilson Addendum by SAKINA JENSEN LPN on February 13, 2016 15:11:02 CDT neurologist/Svitlana Mcintosh suggests she quit taking tramadol because it lowers her resistant to seizures, so he wants her to take something else for pain please [phone] From: OCHOA SÁNCHEZ ([facility] Operations Specialist) To: RAMON Wilson Nurse; Sent: 02/13/2016 14:23:08 CDT Subject: *Phone Message/Oseas Wilson Caller is: (x ) Patient ( ) Mother ( ) Father ( ) Spouse ( ) Daughter ( ) Son ( ) Pharmacy ( ) Other: Physician: Oseas Wilson Patient MRN #: Reason for Call: Message: Patient is waiting for a call regarding her pain medication. Her neurologist did not want her to continue taking Tramadol, so she needs to switch to something else. She needs to come to [place] shortly and doesn't want to have to make two trips. Please call her back at [phone] to advise. Advice/Action: Source used: ( ) Verbalizes understanding [...] back cell phone number ( ) Source: [facility] POWERCHART Document Id: [id number] Miscellaneous - Kenia Klein R.N. - 01/14/2016 11:09 AM CDT bupirone Document Contains Addenda Addendum by OSEAS WILSON PA-C on January 14, 2016 11:39:53 CDT From: OSEAS WILSON PA-C To: [facility] Medication Refill; Sent: 01/14/2016 11:39:53 CDT Subject: RE: bupirone done From: KENIA KELIN RN ( [place] Medication Refill) To: OSEAS WILSON PA-C; Sent: 01/14/2016 11:09:07 CDT Subject: bupirone Caller is: ( ) Patient ( ) Mother ( ) Father ( ) Spouse ( ) Daughter ( ) Son ( [facility] ) Pharmacy ( ) Other: Provider: [facility]: Name of Medications Needing Refill: buspirone 30 mg Last Refill Date: 10/27/14 qty 180 Additional Information: 1 tab po BID Last / Future Appointment: Disposition: ( x) Send to Pharmacy ( ) Call to Pharmacy ( ) Patient will orange picker Script ( ) Mail Rx to Patient Source: [facility] POWERCHART Document Id: [id number] Electronically signed by [facility] Primer Powder Blender Wet [id number] at 01/03/2017 2:48 PM CDT Miscellaneous - Kenia Klein RIsiah - 01/14/2016 9:26 AM CDT strattera Document Contains Addenda Addendum by KENIA KLEIN RN on January 14, 2016 11:58:02 CDT Pharmacy aware. Addendum by OSEAS WILSON PA-C on January 14, 2016 10:56:09 CDT From: OSEAS WILSON PA-C To: [place] Medication Refill; Sent: 01/14/2016 10:56:09 CDT Subject: RE: strattera This hasn't been filled for a long time. I want her to see Dr Morales before this is refilled From: KENIA KLEIN RN ( [place] Medication Refill) To: OSEAS WILSON PA-C; Sent: 01/14/2016 09:26:32 CDT Subject: strattera Caller is: ( ) Patient ( ) Mother ( ) Father ( ) Spouse ( ) Daughter ( ) Son ( [facility] ) Pharmacy ( ) Other: Provider: [facility]: Name of Medications Needing Refill: strattera 80 mg Last Refill Date: 10/11/15 qty 30 Additional Information: 1 cap po Daily....med in Hx of EMR Last / Future Appointment:12/27/15; 01/22/16 Disposition: ( x ) Send to Pharmacy ( ) Call to Pharmacy ( ) Patient will orange picker Script ( ) Mail Rxto Patient Source: [facility] POWERCHART Document Id: [id number] Electronically signed by Ruby [facility] Primer Powder Blender Wet [id number] at 01/03/2017 2:48 PM CDT Miscellaneous - Oseas Wilson P.A.-C. - 12/27/2015 1:27 PM CDT Ambulatory Patient Summary [address] [id number] Visit Information Name: GRICELDA ROBERTS [facility] Number: [id number] Current Date: 12/27/2015 13:27:23 Physicians Attending Provider: OSEAS WILSON PA-C Primary [...] Take Indications/Special Instructions/Comments/Notes for Patient Medication Changes/Routing *atomoxetine (Strattera) Oral, once a day (in the morning) cyanocobalamin (Vitamin B12 1000 mcg/mL injectable solution) 1,000 mcg, Intramuscular, once a month *doxycycline (doxycycline hyclate 100 mg oral tablet) 1 Tablet(s), Oral, two times a day on day three escitalopram (Lexapro 20 mg oral tablet) 1 Tablet(s), Oral, once a day fluticasone nasal (Flonase) 1 [place](s), Nasal, once a day levofloxacin (Levaquin 500 mg oral tablet) 1 Tablet(s), Oral, once a day x 10 day(s) New Routed to [address] [id number] levothyroxine (levothyroxine 75 mcg (0.075 mg) oral [...] release) 1 cap, Oral, once a day zolpidem (Ambien 5 mg oral tablet) 1 Tablet(s), Oral, once a day (at bedtime) x 30 day(s) * You have let us know that you are not taking this medication as listed. Please talk with your primary care provider or the health care provider who prescribed the medication as soon as possible. Stop Taking the Following Medications: Medication list as of 12-27-15 13:27 Attention: If you have any medications at [...] Electronically Signed By: OSEAS WILSON PA-C Signed On:27-DEC-2015 13:27:19 Your Allergies & Intolerances Substance Reaction Symptoms [...] [facility] Lab [facility] Lab 01/24/2016 10:00 [facility] FamilyPra Oseas Michelle 02/08/2016 09:15 FBC[facility] Neurology Andrew [...] if you dont have one. Go to [email or web address] and click on Create Your Account. Then, follow the directions to complete the online form. Youll be asked for your [facility] number which you can find at the top of this document. Your Goals/Additional instructions: Source: [facility] POWERCHART Document Id: [id number] Miscellaneous - Oesas Wilson P.A.-C. - 12/27/2015 1:27 PM CDT Ambulatory Discharge Medication List [address] [id number] Visit Information Name: JEANETTE GRICELDA BARRIGA [facility] Number: [id number] Visit Date: 12/27/2015 13:27:22 Attending Provider: OSEAS WILSON PA-C Primary Care Provider: OSEAS WILSON PA-C JEANETTE GRICELDA LINUS has been given the following list of medications: Your Medications It is important to take your medications as directed. Use a pill box or chart to help remind you to take your medications. Please let your doctor or nurse know if you have problems taking your medications. Medication/Strength How to Take Indications/Special Instructions/Comments/Notes for Patient Medication Changes/Routing *atomoxetine (Strattera) Oral, once a day (in the morning) cyanocobalamin (Vitamin B12 1000 mcg/mL injectable solution) 1,000 mcg, Intramuscular, once a month *doxycycline (doxycycline hyclate 100 mg oral tablet) 1 Tablet(s), Oral, two times a day on day three escitalopram (Lexapro 20 mg oral tablet) 1 Tablet(s), Oral, once a day fluticasone nasal (Flonase) 1 [place](s), Nasal, once a day levofloxacin (Levaquin 500 mg oral tablet) 1 Tablet(s), Oral, once a day x 10 day(s) New Routed to [address] [id number] levothyroxine (levothyroxine 75 mcg (0.075 mg) oral [...] release) 1 cap, Oral, once a day zolpidem (Ambien 5 mg oral tablet) 1 Tablet(s), Oral, once a day (at bedtime) x 30 day(s) * You have let us know that you are not taking this medication as listed. Please talk with your primary care provider or the health care provider who prescribed the medication as soon as possible. Stop Taking the Following Medications: Medication list as of 12-27-15 13:27 Attention: If you have any medications at [...] Electronically Signed By: OSEAS WILSON PA-C Signed On:27-DEC-2015 13:27:19 Additional Information: Source: [facility] POWERCHART Document Id: [id number] Miscellaneous - Latonia Anthony L.P.N. 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 Onset of Symptoms : sinus- 1 day Temperature Core : 36.5 DegC(Converted to: 97.7 DegF) Peripheral Pulse Rate : 91 /min Respiratory Rate : 16 /min Systolic Blood Pressure : 120 mmHg Diastolic Blood Pressure : 78 mmHg NIBP Mean : 92 mmHg BP Location : Right upper extremity Blood Pressure Cuff Size : Large SpO2 : 100 % Oxygen Therapy : Room air Height : 165 cm(Converted to: 5 ft 5 inch(es), 65 inch(es)) Actual Weight : 85.6 kg(Converted to: 188 lb 11 oz) Weight Source : Standing scale Dosing Weight Clinic : 85.6 kg Clinic BSA : 1.98 Body Mass Index : 31.44 kg/m2 LATONIA ANTHONY LPN - 12/27/2015 12:49 CDT General Info Information Given By : Patient Preferred Communication Mode : Verbal Languages : Polish Is Patient Female and 13-50 no hysterectomy : No LATONIA ANTHONY LPN - 12/27/2015 12:49 CDT Subjective Pain Symptoms : Yes LATONIA ANTHONY LPN - 12/27/2015 12:49 CDT Pain Scale Pain Scale Verbal 0-10 : Open LATONIA ANTHONY LPN - 12/27/2015 12:49 CDT Pain Pain Assessment Grid Pain 1 Location : Knee Laterality : Bilateral Intensity : 7 Duration : chronic LATONIA ANTHONY LPN - 12/27/2015 12:49 CDT Dependent Habits Exposure to Tobacco Smoke : Other: former Smoking Status : Former smoker Tobacco 2A : Yes Tobacco Use/Currently Using : No Tobacco Use/Last 30 Days : No Tobacco Use/Last 12 months : No Tobacco Last Use/Year : 1997 Alcohol Use : No LATONIA ANTHONY LPN - 12/27/2015 12:49 CDT Caffeine Use Grid Caffeine Use : Current Type : Chocolate, Coffee, Soft drinks Frequency : Daily Amount : 1 cup, monsters 4 per day Last Use : 12/27/2015 LATONIA ANTHONY LPN - 12/27/2015 12:49 CDT Recreational Drug Use Grid Drug Use : None LATONIA ANTHONY LPN - 12/27/2015 12:49 CDT Source: [facility] 1SDK Document Id: [id number]!55 documented in this encounter Plan of Treatment Not on filedocumented as of this encounter Visit Diagnoses Not on filedocumented in this encounter Additional Health Concerns Assessment Noted Time PHQ-9 Depression Total Score: 8 10/01/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
--- OUTSIDE RECORDS SUMMARY | 2022-04-10 15:01 | XMS_ITS | Encounter Summary ---
:1980 Author Organization [facility] Address [address] [place] [address] Care Team Providers Name Role Phone Unavailable Primary Care Provider Unavailable Encounter Details Date Type Department Care Team Description 06/25/2015 Hospital Encounter HX [facility] XPRESSCAR Vickie Marvin L, P.A.-C. [address] [facility], [facility] [address] [place], [place] [address] (Wo rk) Social History [...] do you attend christian or Never 2021 yazidi services? 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 - 06/25/2015 1:52 PM CST [id number] PATIENT NAME: Mukul CHIEF COMPLAINT/REASON FOR VISIT Sinus pain HISTORY OF PRESENT ILLNESS Mukul is a 34-year-old female who presents with sinus pain and pressure for the last 3 days. She points to the frontal and maxillary sinuses as the source of discomfort. She also has right ear pain, headache, productive cough - especially at night, and nasal drainage. Overall, she feels that her symptoms are worsening in regards to the congestion. She is using a humidifier at night. Her last sinus infection was approximate 12 months ago and this feels very similar. She denies fevers, dental pain, orpain behind the eyes. CURRENT MEDICATIONS See home medications for details ALLERGIES Keflex See EMR for details MEDICAL HISTORY See chronic problems in EMR for details SURGICAL HISTORY See procedure history in EMR for detail SOCIAL HISTORY Denies tobacco use FAMILY HISTORY Not pertinent to today's visit SYSTEMS REVIEW 16 point review of systems negative other than pertinent positives listed in HPI VITAL SIGNS Temperature 36.8 degrees Celsius. Heart rate 106 beats per minute. Respiratory rate 12 breaths per minute. Blood pressure 120/78. SpO2 99% on room air PHYSICAL EXAMINATION CONSTITUTIONAL: Patient is alert and oriented x3. No acute distress. Sitting comfortably at bedside.Obese body habitus. HEENT: Atraumatic. PERRL. EMOI. Outer ears without lesions or other abnormality. Ear canal patent without erythema. The right tympanic membrane is pearly snider and atraumatic. The left tympanic membraneis pearly snider and atraumatic. Oropharynx patent without erythema. There is postnasal drainage. Uvula midline. Tonsils without erythema, enlargement, or exudate. NECK: Trachea midline. Submandibular lymphadenopathy. HEART: Regular rate and rhythm, no murmurs/click/gallops. Pulses 2+/4 throughout, capillary refill <2 sec, good perfusion. LUNGS: Clear to auscultation throughout all lung mojica, anterior posterior. No wheezes, rhonchi, orrales. Equal chest expansion, non-labored breathing, no use of accessory muscles. SKIN: Without rashes, abrasions, lacerations, or signs of infection. Temperature normal. IMPRESSION/REPORT/PLAN DIAGNOSIS: Viral sinusitis Continue conservative management with a humidifier, oral fluids, Flonase as prescribed, Tessalon Perles as prescribed, and codeine-guafinesen as prescribed. Follow up with primary care provider in the next 3 to 5 days if symptoms persist or worsen. Eri Ramos/giovanna Electronically Signed By: TANK MARVIN PA-C On: 06/25/2015 03:01 PM Source: [facility] [email or web address] Document Id: [id number] FEEDER documented in this encounter Miscellaneous Notes Miscellaneous - Tank Marvin P.A.-C. - 06/25/2015 2:29 PM CST Ambulatory Patient Summary [facility] [address] [place], [place] [id number] Visit Information Name: MUKUL REID [facility] Number: [id number] Current Date: 06/25/2015 14:29:57 Physicians Attending Provider: TANK MARVIN PA-C Primary Care Provider: OSEAS WILSON PA-C MUKUL [...] Oral, once a day (in the morning) benzonatate (Tessalon Perles 100 mg oral capsule) 1 cap, Oral, three times a day x 7 day(s) New Routed to [address] [id number] busPIRone (busPIRone 30 mg oral tablet) 1 Tablet(s), Oral, two times a day calcium-vitamin D (calcium (as carbonate)-vitamin D 600 mg-800 intl units oral tablet) 1 Tablet(s), Oral, two times a day citalopram (citalopram 40 mg oral tablet) 40 mg, Oral, once a day codeine-guaiFENesin (Cheratussin AC 10 mg-100 mg/5 mL oral syrup) 5 Milliliter, Oral, once a day (atbedtime) as needed for cough New Routed to [place] cyanocobalamin (Vitamin B12 1000 mcg/mL injectable solution) 1,000 mcg, Intramuscular, once a month fluticasone nasal (Flonase 50 mcg/inh nasal spray) 1 [place](s), Nostrils(Both), two times a day New Routed to [address] [id number] levothyroxine (levothyroxine 75 mcg (0.075 mg) oral tablet) 75 mcg, Oral, once a day multivitamin, ( Plus Iron oral tablet) 1 Tablet(s), Oral, once a day tolterodine (Detrol 2 mg oral tablet) 1 Tablet(s), Oral, two times a day verapamil (verapamil 120 mg/24 hours oral capsule, extended release) 1 cap, Oral, once a day Stop Taking the Following Medications: Medication list as of 06-25-15 14:29 Attention: If you have any medications at home that are not on this list, DO NOT take them until youcontact your provider for clarification. Give a copy of your medication list to your primary care provider. Update your medication list any time medications or doses are changed and carry your medication list at all times in case of emergency. Electronically Signed By: Signed On: Your Allergies & Intolerances Substance Reaction Symptoms [...] if you dont have one. Go to [email or web address] and click on Create Your Account. Then, follow the directions to complete the online form. Youll be asked for your [facility] number which you can find at the top of this document. Your Goals/Additional instructions: Source: [facility] POWERCHART Document Id: [id number] FEEDER Miscellaneous - Tank Marvin P.A.-C. - 06/25/2015 2:29 PM CST Ambulatory Discharge Medication List [facility] [address] [place], [place] [phone] Visit Information Name: MUKUL REID [facility] Number: [id number] Visit Date: 06/25/2015 14:29:55 Attending Provider: TANK MARVIN PA-C Primary Care Provider: OSEAS WILSON PA-C MUKUL [...] Oral, once a day (in the morning) benzonatate (Tessalon Perles 100 mg oral capsule) 1 cap, Oral, three times a day x 7 day(s) New Routed to [address] [id number] busPIRone (busPIRone 30 mg oral tablet) 1 Tablet(s), Oral, two times a day calcium-vitamin D (calcium (as carbonate)-vitamin D 600 mg-800 intl units oral tablet) 1 Tablet(s), Oral, two times a day citalopram (citalopram 40 mg oral tablet) 40 mg, Oral, once a day codeine-guaiFENesin (Cheratussin AC 10 mg-100 mg/5 mL oral syrup) 5 Milliliter, Oral, once a day (atbedtime) as needed for cough New Routed to [place] cyanocobalamin (Vitamin B12 1000 mcg/mL injectable solution) 1,000 mcg, Intramuscular, once a month fluticasone nasal (Flonase 50 mcg/inh nasal spray) 1 [place](s), Nostrils(Both), two times a day New Routed to [facility] [address] [place], [place] [phone] levothyroxine (levothyroxine 75 mcg (0.075 mg) oral tablet) 75 mcg, Oral, once a day multivitamin, ( Plus Iron oral tablet) 1 Tablet(s), Oral, once a day tolterodine (Detrol 2 mg oral tablet) 1 Tablet(s), Oral, two times a day verapamil (verapamil 120 mg/24 hours oral capsule, extended release) 1 cap, Oral, once a day Stop Taking the Following Medications: Medication list as of 06-25-15 14:29 Attention: If you have any medications at home that are not on this list, DO NOT take them until youcontact your provider for clarification. Give a copy of your medication list to your primary care provider. Update your medication list any time medications or doses are changed and carry your medication list at all times in case of emergency. Electronically Signed By: Signed On: Additional Information: Source: [facility] POWERCHART Document Id: [id number] FEEDER Miscellaneous - Trista Merida C.M.A. 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 Entered On: 06/25/2015 14:04 SAW FEEDER Performed On: 06/25/2015 13:59 SAW FEEDER by [facility] Intake Chief Complaint : Stuffy nose, drainage in back of throat Tastes like she has a shmuel in her mouth Sinus pressure, coughing Onset of Symptoms : Thursday Temperature Core : 36.8 DegC(Converted to: 98.2 DegF) Peripheral Pulse Rate : 106 /min (HI) Respiratory Rate : 12 /min (LOW) Heart Rhythm : Regular Systolic Blood Pressure : 120 mmHg Diastolic Blood Pressure : 78 mmHg NIBP Mean : 92 mmHg BP Location : Left upper extremity Blood Pressure Cuff Size : Regular SpO2 : 99 % Oxygen Therapy : Room air [facility] - 06/25/2015 13:59 SAW FEEDER General Info Information Given By : Patient Languages : Danish Is Patient Female and 13-50 no hysterectomy : No TRISTA MERIDA CMA - 06/25/2015 13:59 SAW FEEDER Subjective Pain Symptoms : Yes TRISTA MERIDA CMA - 06/25/2015 13:59 SAW FEEDER Pain Scale Pain Scale Verbal 0-10 : Open [facility] 06/25/2015 13:59 SAW FEEDER Pain Pain Assessment Grid Pain 1 Pain 2 Location : Other: sinus pressure Head [facility] - 06/25/2015 13:59 SAW FEEDER [facility] 06/25/2015 13:59 SAW FEEDER Dependent Habits Tobacco Use/Currently Using : No Exposure to Tobacco Smoke : Other: former Smoking Status : Former smoker [facility] 06/25/2015 13:59 SAW FEEDER Caffeine Use Grid Caffeine Use : Current Type : Chocolate, Coffee, Soft drinks Frequency : Daily Amount : 1 cup, monsters 4 per day Last Use : 02/07/15 [facility] MERIDA [facility] 06/25/2015 13:59 SAW FEEDER Recreational Drug Use Grid Drug Use : None [facility]IDA [facility] 06/25/2015 13:59 SAW FEEDER [facility] Document Id: [id number] SAW FEEDER!43 FEEDER documented in this encounter Plan of Treatment Not on filedocumented as of this encounter Visit Diagnoses Not on filedocumented in this encounter
--- OUTSIDE RECORDS SUMMARY | 2022-04-10 15:01 | XMS_ITS | Encounter Summary ---
:1980 Author Organization [facility] Address [address] [place] [address] Care Team Providers Name Role Phone Unavailable Primary Care Provider Unavailable Encounter Details Date Type Department Care Team Description 02/05/2016 Hospital Encounter HX [facility] Caprice Stuart M.D. [address] [place] [address] (Wo rk) Social History Tobacco Use Types [...] do you attend druze or Never 2021 muslim services? 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 documented as of this encounter Consult Notes Caprice Stuart M.D. - 02/05/2016 2:13 PM CDT [id number] REFERRAL SOURCE Oseas Wilson PA-C CHIEF COMPLAINT/REASON FOR VISIT Seizures. HISTORY OF PRESENT ILLNESS Ms. Reid is a 35-year-old right-handed woman with no past neurologic history and a past medical history of obesity status post gastric bypass, degenerative joint disease, and anxiety who presents today at the request of Mr. Wilson for evaluation of seizures. She was the product of an uncomplicated and born at term. She achieved her milestones on time. She has no personal history of febrile seizures, [employer] infection, or significant head trauma. She does have a family history of epilepsy in a paternal aunt who had seizures as a child but outgrew them later in life. She has had 2 definite events which occurred in December 2015. Her witnessed both of these. They were watching TV, and with 1 she was also coloring in a coloring book at the same time. She does not identify having any warning or aura. Her said that she suddenly stiffened up and began shaking. He did not notice that there was any ictal cry or any head turn. This convulsion lasted about 30 seconds and then terminated spontaneously. She began coming around about 7 to 10 minutes after that, and had returned to baseline about 1 to 2 hours later. She questions whether she may have had a 3rd event about 10 days after the 2nd because she woke up feeling sore, but nothing was witnessed and therewere no other signs to point to a seizure. Her was not awoken at night to a convulsion, but does admit that he got up before her and was out of the bedroom for a few hours before she ended up waking up. Her frequency is 2 total, both occurring last month (December 14 and December 27). She does not identify any triggers. She is currently taking levetiracetam 500 mg 2 times daily. She says that her hands have been more shaky since starting this, but she was also switched from citalopram to escitalopram at the same time,so she is not sure which may be the culprit. She does also feel more irritable. This has not been apparently problematic. She has never been on any seizure medications in the past. EEG performed in [place] was normal. I do note that she also takes tramadol for knee pain, but she says this was started after her 1st convulsion. She also takes Strattera for ADHD and buspirone 30 mg 2 times daily for her anxiety. She has been on both of these at her current doses for a long time. MEDICATIONS Reviewed per the EMR. ALLERGIES Reviewed per the EMR. SYSTEMS REVIEW Comprehensive review of systems performed and negative except as otherwise listed in the HPI. PAST MEDICAL/SURGICAL HISTORY 1. Obesity, status post gastric bypass. 2. ADHD. 3. Anxiety. 4. Depression. 5. Osteoarthritis. SOCIAL HISTORY She is a nonsmoker. FAMILY HISTORY No family history of seizures. VITAL SIGNS Heart rate 107. Blood pressure 127/76. Height 165 cm, weight 87.1 kg. PHYSICAL EXAMINATION GENERAL: No acute distress. COGNITION: Alert and oriented x 4. CRANIAL NERVES: form layer II-XII intact and symmetric. MOTOR: Full strength throughout the upper and lower extremities bilaterally both proximally and distally. Normal tone. No pronator drift. No tremor. REFLEXES: Normal and symmetric at the biceps, triceps, brachioradialis, knees, and ankles. Toes are downgoing to plantar stimulation. SENSORY: Intact and symmetric to touch, pinprick, and joint position in the distal portions of the upper and lower extremities. CEREBELLAR: Heel-foss, [id number]-qoln-kudlpm, and AMRs are performed well without evidence of appendicular ataxia. GAIT: Normal with appropriate base, good heel strike, arm swing, and stride length. IMPRESSION/REPORT/PLAN Presumed epilepsy, etiology and classification unknown. She has had 2 witness convulsions that would be consistent with seizures. She has already been started on levetiracetam and has not had anything since. She does feel irritable on it; however, she is interested in remaining on the medication for the time being. We did talk about other options including switching to a different medication to see if her irritability improved, but she and her have elected to stay on the levetiracetam for now and see how it goes. We discussed the goals of epilepsy management. Our goal is to keep her seizure free. We discussed that 2/3 of patients are able to achieve seizure freedom on 1 of the first 2 medications they try. We discussed that clinical seizures will likely result in the increase of medications over time. We discussed seizure safety including seizure first aid. We also discussed driving. She does understand she should not drive for 3 months according to the laws of the state of [place]. I encouraged her to report to the license bureau, and I would be happy to fill out any paperwork needed for her to return to driving when the time comes. We also discussed avoiding baths and heights. I also shared that she should not swim without close supervision. I would recommend stopping tramadol as this can lower seizure threshold. She started this after her 1st event, so it would not be the underlying cause in and of itself. We also discussed her use of buspirone and Strattera. It is possible that these medications lower seizure threshold. If possible, it would be most ideal for her to be transitioned into and onto and anxiety medication that is better used in patients with epilepsy. Her ADHD is a little more problematic as stimulant medications are typically used. Ultimately, she had been stable on these for a couple of years so it is difficult to say that either had a very specific role in the generation of her recent seizures. She does need further evaluation with MRI of the brain using a seizure protocol. We will perform this here and relay these results to her. When they become available. I will plan to follow up with her in 6 months. She understands to call with future seizures so that medication adjustments can be made as appropriate. She does question whether or not intercurrent illnesses may have resulted in her seizures. It is difficult to say with complete assurance, but I suspect that is not entirely likely the case since she had 2 seizures 2 weeks apart. Wfvm-[id number]-gbpd time in this encounter was 45 minutes with greater than 50% of that spent in counselingand coordination of care. Caprice Stuart M.D./caitlyn Electronically Signed By: CAPRICE STUART MD On: 02/06/2016 07:49 AM Modified by and Electronically Signed by: CAPRICE STUART MD On: 02/06/2016 07:49 AM Source: [facility] MHSDOLBEYNONRADSYS Document Id: [id number] documented in this encounter Nursing Notes Caprice Stuart M.D. - 02/05/2016 3:01 PM CDT Ambulatory Patient Education The following Patient Education Materials have been given to the patient: Patient Education Materials: ED/Trauma First Aid: Seizures ED/Trauma First Aid: Seizures A seizure results from a sudden serrano of abnormal electrical signals in the brain. Symptoms may rangefrom a minor daze to uncontrollable muscle spasms (convulsion). In many cases, the victim will lose consciousness. A seizure can be caused by a high fever, head injury, drug reaction, or condition suchas epilepsy. 1. Protect the Head: ?? Help the victim to the floor if he or she begins losing muscle control. Turn the person on his orher side to prevent choking. ?? Protect the victim's head from injury by placing something soft, such as folded clothes, beneath it, and by moving objects away from the victim. ?? DON'T cause injury by restraining the person or by placing anything in his or her mouth. 2. Preserve Dignity: ?? Clear away bystanders. ?? Reassure the victim, who may be confused, drowsy, or hostile when coming out of the seizure. ?? Cover the person or provide dry clothes if muscle spasms have caused a loss of bladder control. 3. Check for Injury: ?? Make sure the victim's mental state has returned to normal. One way to do this is to ask the person his or her name, the year, and your location. ?? Injuries can occur to the head, mouth, or body. 4. Call 911: ?? If the seizure lasts longer than five minutes ?? If a second seizure occurs ?? If the victim doesnt regain consciousness ?? If the victim is ?? If the victim has no history of seizures ?? [id number] [facility], [address] [place] [address]. All rights reserved. This information is not intended as a substitute for professional medical care. Always follow your healthcare professional's instructions. ? This document has images extracted. Please consider using [employer] for all your patient education needs. Source: [facility] POWERCHART Document Id: [id number] documented in this encounter Miscellaneous Notes Telephone Encounter - Beto June L.PRafalN. - 02/05/2016 3:30 PM CDT *Phone Message Document Contains Addenda Addendum by DERECK ROGERS on February 05, 2016 15:59:18 CDT Patient was notified. Addendum by CAPRICE STUART MD on February 05, 2016 15:56:08 CDT From: CAPRICE STUART MD To: Nephrology/Neurology Nurse; Sent: 02/05/2016 15:56:08 CDT Subject: RE: *Phone Message Actions: Notify patient- refer to General Message OK if tree stand has rails and someone is with her. From: BETO JUNE LPN ([facility] Nurse) To: CAPRICE STUART MD; Sent: 02/05/2016 15:30:12 CDT Subject: *Phone Message Caller is: ( ) Patient ( ) Mother ( ) Father ( ) Spouse ( ) Daughter ( ) Son ( ) Pharmacy ( ) Other: Physician: Sade Patient MRN #: Reason for Call: Message: Pt would like to know if it's ok for her to keenan this fall and use tree stands. May return call at [phone] Advice/Action: Source used: ( ) Verbalizes understanding [...] back cell phone number ( ) Source: [facility] POWERCHART Document Id: [id number] Miscellaneous - Dereck Rogers, C.M.ARafal - 02/05/2016 3:28 PM CDT MRI Screening Questionnaire MRI Screening Questionnaire Entered On: 02/05/2016 15:32 CDT Performed On: 02/05/2016 15:28 CDT by DERECK ROGERS MRI Questionnaire Previous MRI, CT, or X-rays Done : Yes Location of previous MRI, CTor X-ray : N/A DERECK ROGERS 02/05/2016 15:28 CDT MRI Cannot be Done Grid Automated Internal Cardiac Defibrillator : No Brain aneurysm clips : No Cochlear implant : No History of pacemaker : No Implants with a magnet : No Internal electrodes/wires : No Neurostimulator/Biostimulator : No [place] dorothea catheter : No DERECK ROGERSKarina Bennett 02/05/2016 15:28 CDT MRI Risk Factors Grid Patient is greater than 69 years old : No Diabetes (document medication) : No History of Kidney/Liver Transplant : No History of Renal Disease : No Receiving Dialysis : No DERECK ROGERS RENATO - 02/05/2016 15:28 CDT Creatinine/GFR Results Completed : No DERECK ROGERSN 02/05/2016 15:28 CDT MRI Implants, Devices, Conditions Grid Aneurysm clip : No Control Implants (IUD, diaphragm) : No Intravascular Coil, Filter or Stent : No Drug Infusion Pump : No External Pain Control Device : No Intravascular Catheter/Port : No Magnetic/Elec/Mech Activated Implant : No Prosthesis/Metal Implanted Surgical : No Metal Fragments in Body : No Bullets/BB's/Shrapnel in Body : No Tattoos/Perm Make-Up/Body Jewelry : Yes (Comment: Tattoos [DERECK ROGERS RENATO 02/05/2016 15:28 CDT] ) Hearing Aids/Dentures/Partial Plates : Yes (Comment: Dentures [DERECK ROGERS RENATO 02/05/2016 15:28 CDT] ) History of cancer : No Eye Surgery/Implant : No Inner Ear Surgery/Implant : No Transdermal Med or EKG Patches : No Shunt : No Penile Implant : No Breast Tissue Pin Inserter/Implant : No : No (document number of weeks in Comment) : No Surgery : Yes (Comment: Gastric bipass, C-sections X2, apindectomy, gallbladder removed, tonsels removed. Hysterectomy [DERECK ROGERS RENATO - 02/05/2016 15:28 CDT] ) KEN DERECKALPA GROSS 02/05/2016 15:28 CDT Claustrophobic : Yes Claustrophobic Special Requirements : Oral medication per protocol Pain/Unable to Lay Still : No Metal In or Removed from Eyes Ever : No Form Completed : Yes ROGERSBGDERECKJIA GROSS 02/05/2016 15:28 CDT Source: [facility] Raptr Document Id: [id number] CDT!48 Alex - Caprice Stuart M.D. - 02/05/2016 3:13 PM CDT MRI checklist From: CAPRICE STUART MD To: Nephrology/Neurology Nurse; Sent: 02/05/2016 15:13:31 CDT Subject: MRI checklist Forgot to have her stay to do the MRI checklist. Please give her a call to go through it. andthanks. Caprice Rodrigues Source: [facility] [employer] Document Id: [id number] Chikiscelllamberto - Caprice Stuart M.D. - 02/05/2016 3:01 PM CDT Ambulatory Patient Summary [facility] [address] [place] [id number] Visit Information Name: GRICELDA REID [facility] Number: [id number] Current Date: 02/05/2016 15:01:56 Physicians Attending Provider: CAPRICE STUART MD Primary Care Provider: OSEAS WILSON PA-C GRICELDA [...] solution) 1,000 mcg, Intramuscular, once a month diazepam (diazepam 5 mg oral tablet) See Instructions Take after reporting for MRI for claustrophobia New Routed to Printer *doxycycline (doxycycline hyclate 100 mg oral tablet) 1 Tablet(s), Oral, two times a day on day three escitalopram (Lexapro 20 mg oral tablet) 1 Tablet(s), Oral, once a day fluticasone nasal (Flonase) 1 Sigourney(s), Nasal, once a day levETIRAcetam (Keppra 500 mg oral tablet) 1 Tablet(s), Oral, two times a day New levothyroxine (levothyroxine 75 mcg (0.075 mg) oral [...] Oral, once listed in doc by history verapamil (verapamil 120 mg/24 hours oral capsule, [...] as possible. Stop Taking the Following Medications: traMADol (traMADol 50 mg oral tablet) Medication list as of 02-05-16 15:01 Attention: If you have any medications at [...] Electronically Signed By: CAPRICE STUART MD Signed On:05-FEB-2016 15:01:36 Your Allergies & Intolerances Substance Reaction Symptoms [...] local Clinic if further appointment detail needed. First Aid: Seizures A seizure results from a sudden serrano of abnormal electrical signals in the brain. Symptoms may rangefrom a minor daze to uncontrollable muscle spasms (convulsion). In many cases, the victim will lose consciousness. A seizure can be caused by a high fever, head injury, drug reaction, or condition suchas epilepsy. 1. Protect the Head: ?? Help the victim to the floor if he or she begins losing muscle control. Turn the person on his orher side to prevent choking. ?? Protect the victim's head from injury by placing something soft, such as folded clothes, beneath it, and by moving objects away from the victim. ?? DON'T cause injury by restraining the person or by placing anything in his or her mouth. 2. Preserve Dignity: ?? Clear away bystanders. ?? Reassure the victim, who may be confused, drowsy, or hostile when coming out of the seizure. ?? Cover the person or provide dry clothes if muscle spasms have caused a loss of bladder control. 3. Check for Injury: ?? Make sure the victim's mental state has returned to normal. One way to do this is to ask the person his or her name, the year, and your location. ?? Injuries can occur to the head, mouth, or body. 4. Call 911: ?? If the seizure lasts longer than five minutes ?? If a second seizure occurs ?? If the victim doesnt regain consciousness ?? If the victim is ?? If the victim has no history of seizures ?? [id number] [facility], [address] [place] [address], [place] [address]. All rights reserved. This information is not intended as a substitute for professional medical care. Always follow your healthcare professional's instructions. ? Consider Using Patient Online Services ?? [employer] is a secure online [...] if you dont have one. Go to [email or web address] and click on Create Your Account. Then, follow the directions to complete the online form. Youll be asked for your [facility] number which you can find at the top of this document. Your Goals/Additional instructions: This document has images extracted. Please consider using [employer] for all your patient education needs. Source: [facility] POWERCHART Document Id: [id number] Miscellaneous - Caprice Stuart M.D. - 02/05/2016 3:01 PM CDT Ambulatory Discharge Medication List [address] [id number] Visit Information Name: GRICELDA REID [facility] Number: [id number] Visit Date: 02/05/2016 15:01:55 Attending Provider: CAPRICE STUART MD Primary Care Provider: OSEAS WILSON PA-C GRICELDA [...] solution) 1,000 mcg, Intramuscular, once a month diazepam (diazepam 5 mg oral tablet) See Instructions Take after reporting for MRI for claustrophobia New Routed to Printer *doxycycline (doxycycline hyclate 100 mg oral tablet) 1 Tablet(s), Oral, two times a day on day three escitalopram (Lexapro 20 mg oral tablet) 1 Tablet(s), Oral, once a day fluticasone nasal (Flonase) 1 Sigourney(s), Nasal, once a day levETIRAcetam (Keppra 500 mg oral tablet) 1 Tablet(s), Oral, two times a day New levothyroxine (levothyroxine 75 mcg (0.075 mg) oral [...] Oral, once listed in doc by history verapamil (verapamil 120 mg/24 hours oral capsule, [...] as possible. Stop Taking the Following Medications: traMADol (traMADol 50 mg oral tablet) Medication list as of 02-05-16 15:01 Attention: If you have any medications at [...] Electronically Signed By: CAPRICE STUART MD Signed On:05-FEB-2016 15:01:36 Additional Information: Source: [facility] POWERCHART Document Id: [id number] Miscellaneous - Dereck Rogers C.MRafalARafal - 02/05/2016 2:17 PM CDT [employer] Floorperson Intake/History [employer] Floorperson Intake/History Entered On: 02/05/2016 14:21 CDT Performed On: 02/05/2016 14:17 CDT by DERECK ROGERS Intake Chief Complaint : Seizure like event Onset of Symptoms : End of November first one happened, second one was two weeks late, 3rd was week kisha half later after the second Peripheral Pulse Rate : 107 /min (HI) Heart Rhythm : Regular Systolic Blood Pressure : 127 mmHg Diastolic Blood Pressure : 76 mmHg NIBP Mean : 93 mmHg BP Location : Right upper extremity Blood Pressure Cuff Size : Regular Height : 165 cm(Converted to: 5 ft 5 inch(es), 65 inch(es)) Actual Weight : 87.1 kg(Converted to: 192 lb 0 oz) Weight Source : Standing scale Dosing Weight Clinic : 87.1 kg Clinic BSA : 2 Body Mass Index : 31.99 kg/m2 DERECK ROGERS - 02/05/2016 14:17 CDT General Info Information Given By : Patient, Daughter, Spouse Languages : Maltese Is Patient Female and 13-50 no hysterectomy : No DERECK ROGERS - 02/05/2016 14:17 CDT Subjective Pain Symptoms : No DERECK ROGERS - 02/05/2016 14:17 CDT Dependent Habits Exposure to Tobacco Smoke : Other: former Smoking Status : Former smoker Tobacco 2A : No Tobacco Use/Currently Using : No Tobacco Use/Last 30 Days : No Tobacco Use/Last 12 months : No Tobacco Last Use/Year : 1997 DERECK ROGERS - 02/05/2016 14:17 CDT Caffeine Use Grid Caffeine Use : Current Type : Chocolate, Coffee, Soft drinks Frequency : Daily Amount : 1 cup, monsters 4 per day Last Use : 12/27/2015 DERECK ROGERS - 02/05/2016 14:17 CDT Recreational Drug Use Grid Drug Use : None DERECK ROGERS - 02/05/2016 14:17 CDT 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
--- OUTSIDE RECORDS SUMMARY | 2022-04-10 15:01 | XMS_ITS | Encounter Summary ---
:1980 Author Organization [facility] Address [address] [place] [address] Care Team Providers Name Role Phone Unavailable Primary Care Provider Unavailable Encounter Details Date Type Department Care Team Description 05/24/2015 Hospital Encounter HX [facility] Luciano Arias M .D. Social History Tobacco Use Types Packs/Day Years [...] do you attend gnosticist or Never 2021 caodaism services? 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 - 05/24/2015 10:47 AM CDT [id number] CHIEF COMPLAINT/REASON FOR VISIT 1. Urinary incontinence. 2. Pelvic exam and Pap smear. HISTORY OF PRESENT ILLNESS This patient [facility] INCOMING FREIGHT CLERK [facility]. She is a 34-year-old, G2, P2-0-0-2 female, who is amenorrheic status post supracervical hysterectomy in 2010. The patient presents for INCOMING FREIGHT CLERK consult for pelvic exam and Pap smear if indicated for history of supracervical hysterectomy 4 years ago. The patient reports she has not had a pelvic exam in many years and does not believe she has had one since her hysterectomy. The patient believes that her uterus was removed but her cervix was not due to bleeding at time of surgery. The patient denies any vaginal itching, irritation, or discharge. No vaginal bleeding. No dyspareunia. No postcoital spotting. She has not had a mensesor vaginal bleeding since her hysterectomy in 2010. The patient is not sure if she needs to have a Pap smear. The patient's second concern for consult is regarding urinary incontinence. The patient reports thatloni has been having urinary incontinence symptoms that have worsened since her gastric bypass procedure and weight loss. Her symptoms have worsened over the last 6 to 8 months. She complains of urge urinary incontinence where she has a strong urge to void but is unable to reach the bathroom or unable to stop the car or get off the phone when she has these symptoms. She reports that these symptoms occur anywhere from 2 to 8 times per week, usually daily. She reports she is able to empty her bladder. She does not have postvoid dribbling. She did not feel that her bladder is full. She does not have any dysuria, hematuria or flank pain. She denies history of frequent urinary tract infections. She reports nocturia 1 to 2 times per night. She denies enuresis. She denies any change in bowel habits. No bright red blood per rectum. No rectal splinting. No straining with bowel movements. No straining withvoiding. She denies any bulges or pressure sensations in her vagina. The patient reports rare stressurinary incontinence symptoms with sneezing and coughing, this usually occurs when she has a upper respiratory tract infection only. This has been ongoing since the of her children and is not affecting her day-to-day activities. The patient reports that over the last year she has been trying to v oid more frequently and by going to the bathroom on a regular basis and voiding frequently she has decreased the amount of urge incontinence symptoms that she has, but they are still occurring as mentioned above. ALLERGIES Keflex. MEDICATIONS 1. Atomoxetine. 2. Buspirone. 3. Calcium. 4. Vitamin D. 5. Citalopram. 6. Vitamin B12 injections. 7. Levothyroxine. 8. vitamins. 9. Ditropan XL. New prescription given today. 10. Verapamil. PAST MEDICAL/SURGICAL HISTORY PAST MEDICAL HISTORY: 1. Hypothyroidism. 2. Depression. 3. Anxiety. 4. Attention deficit hyperactivity disorder. 5. Recurrent headaches. 6. Degenerative joint disease. 7. Chronic low back pain. 8. Opioid dependency. 9. Morbid obesity. 10. Gastric bypass procedure. PAST SURGICAL HISTORY: 1. Appendectomy in 2003. 2. Cholecystectomy 2003. 3. section 2006. 4. section 2007. 5. Tonsillectomy 2007. 6. Gastric bypass 2011. 7. Tubal ligation 2007. 8. Supracervical abdominal hysterectomy and right salpingo-oophorectomy 2010. PAST OBSTETRICAL HISTORY: 1. section 2006. 2. section 2007. SOCIAL HISTORY Patient is . She denies tobacco, alcohol or drug use. She reports that she has had a problem with opioid dependence in the past but denies any current problems. VITAL SIGNS Weight 83.8 kg, height 165 cm, pulse 66, blood pressure 118/60. PHYSICAL EXAMINATION GENERAL: Well-developed, well-nourished female, in no apparent distress. Alert and oriented x3. LUNGS: Clear to auscultation bilaterally. Good inspiratory effort. HEART: Regular rate and rhythm without murmur. ABDOMEN: Soft, nontender, nondistended. Positive bowel sounds. Multiple surgical incisions, all healed. EXTREMITIES: No clubbing, cyanosis, or edema. Nontender bilaterally. SPINE: No CVA tenderness bilaterally. GENITOURINARY: Normal external female genitalia. Normal BUS. Normal vaginal rugae without lesions. Normal multiparous cervical os without lesions. No cervical motion tenderness. Uterus is not palpated.Adnexa not palpated. Negative supine and standing cough stress test. Q-tip change less than 30 degrees. No cystocele. No rectocele. Cervix is well supported without descent. RECTAL: Normal sphincter tone. Examination confirms vaginal examination. DIAGNOSTICS 05/24/2015 urine culture obtained. Results are pending. IMPRESSION/REPORT/PLAN 1. Urge urinary incontinence. 2. Normal vaginal and cervix exam, with prior history of supracervical hysterectomy. 3. Multiple medical problems, on medication as mentioned above. PLAN: 1. I reviewed the patient's history. She has had a laparotomy with a supracervical hysterectomy and right oophorectomy in the past. It appears that the patient's cervix was not removed due to bleeding at time of that procedure. On examination today the patient's cervix is a normal multiparous cervix without tenderness. There is no uterus palpated. No lesions are noted on the cervix. Pap smear is obtained. 2. I will contact the patient next week with results of Pap smear. 3. I recommend regular pelvic examination and regular Pap smear testing as her cervix was not removed at the time of her hysterectomy. I discussed with patient that she can develop cervical dysplasia and even cervical cancer as her cervix was not removed. I discussed the possibility of developing someabnormal bleeding symptoms as she still has her cervix retained. She denies any bleeding in the last4 years since her hysterectomy and she has normal cervical examination today. 4. Urine culture is obtained today. I will contact the patient with this result. 5. I discussed urge incontinence with the patient. The patient's main symptoms are urge urinary incontinence. She has rare stress incontinence with cough and sneeze when she has an upper respiratory tract infection but this does not affect her day-to-day activities like the urge symptoms are. 6. I discussed options with the patient and encouraged her to decrease bladder stimulants, to decrease caffeine and chocolate in her diet. 7. I also encouraged patient to try frequent timed voids every 2 to 3 hours during the day to help keep her bladder less full which will help with some of these symptoms. 8. I discussed anticholinergic medications with the patient. She desires to proceed. I have given the patient a prescription for Ditropan XL 5 mg by mouth daily. I discussed the use of this medication with patient. I discussed side effects with the patient. Prescription has been sent. 9. If the patient's urge symptoms do not improve after taking the Ditropan for the next 6 to 8 weeksI would like for her to follow up with Urology for consultation and recommendations and treatment ofher urge incontinence symptoms. 10. I will be more than happy to see the patient on an as-needed basis. Luciano Duron M.D./caitlyn Electronically Signed By: LUCIANO DURON MD On: 05/24/2015 02:21 PM Source: [facility] MHSDOLBEYNONRADSYS Document Id: [id number] documented in this encounter Miscellaneous Notes Miscellaneous - Luciano Duron M.D. - 05/31/2015 1:14 PM CDT Custom Result Letter 31 May 2015 GRICELDA REID [address] [facility] [id number] Dear GRICELDA REID, I am happy to inform you that your recent Pap smear has been read as normal or negative. This is very reassuring. I recommend following up with your next Pap smear in three years or sooner should you have any problems. If you should have any questions, please do not hesitate to contact my office. We look forward to serving you again in the future. Result Name Current Result INCOMING FREIGHT CLERK Cytology. 05/24/2015 Sincerely, LUCIANO DURON [address] [place] [address] Electronic Signature Electronically Signed By: LUCIANO DURON MD On: 31 May 2015 This document has images extracted. Source: [facility] [employer] Document Id: [id number] Electronically signed by Ruby, [facility] Geriatric Nurse Practitioner [id number] at 01/05/2017 4:59 AM CDT Telephone Encounter - Conversion, Historical Provider Ser - 05/30/2015 2:22 PM CDT *Phone Message/Oliverio Document Contains Addenda Addendum by LUCIANO DURON MD on 30 May 2015 15:54:42 CDT From: LUCIANO DURON MD To: Obstetrics/Gynecology Nurse; Sent: 05/30/2015 15:54:42 CDT Subject: RE: *Phone Zachary/Oliverio I spoke with the patient and due to side effects of Ditropan medication, I am changeing to Detrol Rx. I discussed the use of this with the patient. Addendum by LUCIANO DURON MD on 30 May 2015 15:53:43 CDT Submitted: Order:tolterodine (Detrol 2 mg oral tablet) 1 tab(s) PO 2xDay Qty: 60 tab(s) Refills: 11 Substitutions Allowed Route To Pharmacy - [place] [address] Signed by LUCIANO DURON MD Submitted: Complete:oxybutynin (Ditropan XL 5 mg/24 hours oral tablet, extended release) Signed by LUCIANO DURON MD 05/30/2015 15:52:31 Addendum by JOSHUA BRUSH LPN on 30 May 2015 14:28:59 CDT From: JOSHUA BRUSH LPN ( Obstetrics/Gynecology Nurse) To: LUCIANO DURON MD; Sent: 05/30/2015 14:28:59 CDT Subject: FW: *Phone Message/Oliverio Patient was started on Ditropan XL for urge incontinence on 05/24/15. From: VICKY HAY To: Obstetrics/Gynecology Nurse; Sent: 05/30/2015 14:22:53 CDT Subject: *Phone Message/Oliverio Caller is: ( x ) Patient ( ) Mother ( ) Father ( ) Spouse ( ) Daughter ( ) Son ( ) Pharmacy ( ) Other: Physician: Patient MRN #: Reason for Call: S: Dr. Duron prescribed a medication for Gricelda recently (oxybutynin er) that is causing stomach cramping. Gricelda is wondering if there is a different medication he can prescribe instead. B: A: R: Please call Gricelda back at [phone]. Message: Advice/Action: Source used: ( ) Verbalizes understanding [...] back cell phone number ( ) Source: [facility] POWERCHART Document Id: [id number] Miscellaneous - Luciano Duron M.D. - 05/25/2015 9:56 AM CDT Normal Results Letter 25 May 2015 GRICELDA REID [address] [place] [phone] Dear GRICELDA REID, I am pleased to report that your results from the following diagnostic test(s) are normal. Your urine culture is negative. Please follow up with us as we discussed during your visit or sooner if you have any concerns. If you have questions or concerns, please do not hesitate to call our office. Result Name Current Result Culture Urine Review 05/24/2015 Sincerely, LUCIANO DURON [address] [facility] [address] [facility] [address] Electronic Signature Electronically Signed By: LUCIANO DURON MD On: 25 May 2015 This document has images extracted. Source: [facility] POWERCHART Document Id: [id number] Electronically signed by Ruby [facility] Nurse Practitioner [id number] at 01/05/2017 4:59 AM CDT Miscellaneous - Luciano Duron M.D. - 05/24/2015 12:21 PM CDT Ambulatory Patient Summary [facility] [address] [place], [place] [phone] Visit Information Name: GRICELDA REID [facility] Number: [phone] Current Date: 05/24/2015 12:21:14 Physicians Attending Provider: LUCIANO DURON MD Primary Care Provider: OSEAS MEZA PA-C GRICELDA REID has been given the [...] tablet) 40 mg, Oral, once a day cyanocobalamin (Vitamin B12 1000 mcg/mL injectable solution) 1,000 mcg, Intramuscular, once a month levothyroxine (levothyroxine 75 mcg (0.075 mg) oral tablet) 75 mcg, Oral, once a day multivitamin, ( Plus Iron oral tablet) 1 Tablet(s), Oral, once a day oxybutynin (Ditropan XL 5 mg/24 hours oral tablet, extended release) 1 Tablet(s), Oral, once a day New Routed to [place] [address] [address] [place], [place] [id number] verapamil (verapamil 120 mg/24 hours oral capsule, extended release) 1 cap, Oral, once a day Stop Taking the Following Medications: Medication list as of 05-24-15 12:21 Attention: If you have any medications at home that are not on this list, DO NOT take them until youcontact your provider for clarification. Give a copy of your medication list to your primary care provider. Update your medication list any time medications or doses are changed and carry your medication list at all times in case of emergency. Electronically Signed By: LUCIANO DURON MD Signed On:24-MAY-2015 12:21:03 Your Allergies & Intolerances Substance Reaction Symptoms [...] if you dont have one. Go to [email or web address] and click on Create Your Account. Then, follow the directions to complete the online form. Youll be asked for your [facility] number which you can find at the top of this document. Your Goals/Additional instructions: Source: [facility] POWERCHART Document Id: [id number] Miscellaneous - Luciano Duron M.D. - 05/24/2015 12:21 PM CDT Ambulatory Discharge Medication List [address] [place] [phone] Visit Information Name: GRICELDA REID [facility] Number: [phone] Visit Date: 05/24/2015 12:21:13 Attending Provider: LUCIANO DURON MD Primary Care Provider: OSEAS MEZA PA-C GRICELDA REID has been given the [...] tablet) 40 mg, Oral, once a day cyanocobalamin (Vitamin B12 1000 mcg/mL injectable solution) 1,000 mcg, Intramuscular, once a month levothyroxine (levothyroxine 75 mcg (0.075 mg) oral tablet) 75 mcg, Oral, once a day multivitamin, ( Plus Iron oral tablet) 1 Tablet(s), Oral, once a day oxybutynin (Ditropan XL 5 mg/24 hours oral tablet, extended release) 1 Tablet(s), Oral, once a day New Routed to [address] [place] [phone] verapamil (verapamil 120 mg/24 hours oral capsule, extended release) 1 cap, Oral, once a day Stop Taking the Following Medications: Medication list as of 05-24-15 12:21 Attention: If you have any medications at home that are not on this list, DO NOT take them until youcontact your provider for clarification. Give a copy of your medication list to your primary care provider. Update your medication list any time medications or doses are changed and carry your medication list at all times in case of emergency. Electronically Signed By: LUCIANO DURON MD Signed On:24-MAY-2015 12:21:03 Additional Information: Source: [facility] POWERCHART Document Id: [id number] Miscellaneous - Nelly Campo R.N. - 05/24/2015 10:50 AM CDT Adult Hub Associate Intake/History Adult Hub Associate Intake/History Entered On: 05/24/2015 10:51 CDT Performed On: 05/24/2015 10:50 CDT by NELLY CAMPO LPN Intake Chief Complaint : bladder issues Peripheral Pulse Rate : 66 /min Systolic Blood Pressure : 118 mmHg Diastolic Blood Pressure : 60 mmHg NIBP Mean : 79 mmHg BP Location : Left upper extremity Blood Pressure Cuff Size : Regular Height : 165 cm(Converted to: 5 ft 5 inch(es), 65 inch(es)) Actual Weight : 83.8 kg(Converted to: 184 lb 12 oz) Dosing Weight Clinic : 83.8 kg Clinic BSA : 1.96 Body Mass Index : 30.78 kg/m2 NELLY CAMPO LPN - 05/24/2015 10:50 CDT General Info Languages : Haitian Is Patient Female and 13-50 no hysterectomy : No NELLY CAMPO LPN - 05/24/2015 10:50 CDT Subjective Pain Symptoms : No NELLY CAMPO LPN - 05/24/2015 10:50 CDT Dependent Habits Tobacco Use/Currently Using : No Exposure to Tobacco Smoke : Other: former Smoking Status : Former smoker NELLY CAMPO LPN - 05/24/2015 10:50 CDT Caffeine Use Grid Caffeine Use : Current Type : Chocolate, Coffee, Soft drinks Frequency : Daily Amount : 1 cup, monsters 4 per day Last Use : 02/07/15 NELLY CAMPO HEALTH CARE ASSISTANT - 05/24/2015 10:50 CDT Recreational Drug Use Grid Drug Use : None NELLY CAMPO HEALTH CARE ASSISTANT - 05/24/2015 10:50 CDT Source: [facility] POWERCHART Document Id: [id number] CDT!33 documented in this encounter Plan of Treatment Not on filedocumented as of this encounter Procedures Procedure Name Priority Date/Time Associated Diagnosis Comme nts BACTERIAL CULTURE, Routine 05/24/2015 12:43 PM Re sults for this AEROBIC, URINE CDT procedure are in the results section. PATHOLOGY INCOMING FREIGHT CLERK Routine 05/24/2015 12:00 AM Results for this CYTOLOGY CDT procedure are i n the results section. documented in this encounter Results Bacterial Culture, Aerobic, Urine (05/24/2015 12:43 PM CDT) [facility] gist Method Time Signature Bacterial POWERCHART Culture, Aerobic, [facility]. No POWERCHART further studies unless notified. HXFinal [place] POWERCHART Microbiology laboratory [phone]. Specimen (Source) Anatomical Collection Method Collection Time Re ceived Time Location / / Volume Laterality Urine, First 05/24/2015 12:43 Voided PM CDT Luciano Duron M.D. LAB MICROBIOLOGY - GENERAL O RDERABLES Performing Organization Address City/[facility] Phon e Number POWERCHART Pathology INCOMING FREIGHT CLERK Cytology (05/24/2015 12:00 AM CDT) Specimen (Source) Anatomical Location Collection Method / Collectio n Time Received Time / Laterality Volume 05/24/2015 Narrative [facility] - 05/31/2015 12:01 PM CDT [facility] in [place] [address] [facility] [address] [place] [address] ??[phone] Patient Name: GRICELDA REID Patient ID #: [id number] Collected: 05/24/2015 Address: [facility]/State/Zip: [address] [place] [address] ??[phone] Received: Reported: 05/25/2015 05/31/2015 Soc. Sec. #: ?/Age/Sex 1980 (Age: 34) ??F Physician(s): JUAN C DURON MD Copy To: ? [facility] ??[id number] [address] [place] [address], ??[place] ??[phone] CYTOPATHOLOGY INCOMING FREIGHT CLERK REPORT FINAL CYTOLOGIC DIAGNOSIS Pap Smear - ThinPrep: NEGATIVE FOR INTRAEPITHELIAL LESION OR MALIGNANCY ENDOCERVICAL CELLS/COMPONENT PRESENT. SATISFACTORY SPECIMEN FOR EVALUATION. Electronically Signed Out By dls/05/31/[address](ASCP) AM Chetanehtina CT(ASCP) The Pap test is a screening procedure an d, as such, is subject to both false positive and false negative results as evidenced by published data. ??It is not a diagnostic test and results should be inter preted in the context of the patient's h istory and other clinical findings. ??Obtaining per iodic Pap tests may help to minimize the consequences of any false negatives that may occur. SPECIMEN(S) RECEIVED: Pap Smear - ThinPrep CLINICAL HISTORY: Date of Last Menstrual Period: NONE Menstrual History: History of partial hysterectomy: CERVIX PRESENT Hormonal History: No hormonal therapy Other Clinical Conditions: HPV TYPING REQUESTED: IF ASCUS Luciano Duron M.D. LAB PAP COPATH ORDERABLES Performing Organization Address City/State/ZIP Code Phon e Number [facility] documented in this encounter Visit Diagnoses Not on filedocumented in this encounter
--- OUTSIDE RECORDS SUMMARY | 2022-04-10 15:01 | XMS_ITS | Encounter Summary ---
:1980 Author Organization [facility] Address [address] [place] [address] Care Team Providers Name Role Phone Unavailable [...] do you attend amish or Never 2021 jain services? 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 documented as of this encounter Plan of Treatment Not on filedocumented as of this encounter Visit Diagnoses Not on filedocumented in this encounter
--- OUTSIDE RECORDS SUMMARY | 2022-04-10 15:01 | XMS_ITS | Encounter Summary ---
:1980 Author Organization [facility] Address [address] [place] [id number] Care Team Providers Name Role Phone Unavailable Primary Care Provider Unavailable Encounter Details Date Type Department Care Team Description 03/21/2015 Hospital Encounter HX [facility] Michael Grady M.D. [address] [place] [address], [address] [place] [address] (Wo rk) Social History Tobacco [...] do you attend christianity or Never 2021 muslim services? 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/2021 7:35 PM [employer]ES [employer] documented as of this encounter Last Filed Vital Signs Vital Sign Reading Time Taken Comments Blood Pressure 118/72 03/21/2015 12:51 PM CDT Pulse - - Temperature - - Respiratory Rate - - Oxygen Saturation - - Inhaled Oxygen Concentration - - Weight 88.9 kg (195 lb 15.8 oz) 03/21/2015 12:51 PM CDT Height 165 cm (5' 4.96) 03/21/2015 12:51 PM CDT Body Mass Index 32.65 03/21/2015 12:51 PM CDT documented in this encounter Medications at Time of Discharge Medication Sig Dispensed Refills Start Date End Date promethazine (PHENERGAN) Take 25 mg by mouth 0 25 mg tablet as needed for nausea. calcium Take 1 tablet by 0 07/13/2013 10/07/19 22 carbonate-vitamin D3 500 mouth daily. mg(1,250mg) -400 unit tablet citalopram (CeleXA) 40 Take 1 tablet by 0 03/12/ 015 03/27/2020 mg tablet mouth daily. syringe, disposable, 1 1 Device by not 0 07/13/20 13 04/04/2020 mL syringe applicable route. documented as of this encounter Progress Notes Meri Grady M.D. - 03/21/2015 12:45 PM CDT [id number] CHIEF COMPLAINT/REASON FOR VISIT Followup of left greater than right knee pain. HISTORY OF PRESENT ILLNESS Ms. Reid returns today. Since I last saw her, she has completed her formal physical therapy. She reports that while she does not feel it has made an overall significant difference with respect to her pain, her strength has improved significantly in her lower extremities and she has been continuing with performing the exercises on her own on a regular basis. She has also implemented aerobic exercise program including walking on the treadmill and is going to be initiating swimming as well as using elliptical certified athletic trainer. She has just joined the [employer] Challenge at [employer] and has been losing a significant amount of weight even prior to signing up for the 90 Day Challenge. She still describes her pain as left greater than right knee pain primarily located anterior in the peripatellar regions. The pain is worse the more she is on her feet and at times it feels as if the knee could buckle or give out. She denies any locking or catching in the knee. PHYSICAL EXAMINATION GENERAL: Pleasant 34-year-old female in no acute distress. GAIT: Nonantalgic. KNEES: There is no effusion present in either knee. Range of motion from 0 to 130 degrees. There is no tenderness today with palpation over the right medial and lateral joint lines, or over the right medial and lateral patellar facets. There is tenderness to palpation over the left medial patellar facets and over the posterior medial joint line. IMPRESSION/REPORT/PLAN 1. Left greater than right knee pain. 2. Left knee degenerative joint disease. Ms Reid's symptoms, examination and previous imaging are all consistent with bilateral patellofemoral pain syndrome as being the cause of her pain. PLAN: 1. Ms. Reid will continue the exercises that she was instructed on in physical therapy. I commended her on her diligence to the exercise program. 2. I am going to give Ms. Reid a prescription for patellofemoral support braces that she can use when she is active. 3. Ms. Reid will continue the exercises she was shown on her own as well as she has initiated a new aerobic program, which I commended her on. If she is still having discomfort we did discuss the possibility of potentially proceeding with a left knee intra-articular injection with viscosupplementation. Ms. Reid voiced agreement and understanding of this plan. Total time 25 minutes, counseling time 15 minutes. Meri Grady M.D./caitlyn Electronically Signed By: MERI GRADY MD On: 03/22/2015 09:42 AM Modified by and Electronically Signed by: MERI GRADY MD On: 03/22/2015 09:42 AM Source: [facility] MHSDOLBEYNONRADSYS Document Id: [id number] documented in this encounter Miscellaneous Notes Telephone Encounter - Conversion, Historical Provider Ser - 07/20/2015 10:15 AM CST *Phone Message/Dr. Grady Document Contains Addenda Addendum by RAJESH DALAL LPN on 23 July 2015 09:37:15 [employer] Patient added to waiting list. From: OCHOA SÁNCHEZ ([facility] Cloud Services Architect) To: Physical Medicine and Rehabilitation Staff; Sent: 07/20/2015 10:15:07 SALES [employer] Subject: *Phone Message/Dr. Grady Caller is: ( x ) Patient ( ) Mother ( ) Father ( ) Spouse ( ) Daughter ( ) Son ( ) Pharmacy ( ) Other: Physician: Dr. Grady Patient MRN #: Reason for Call: Message: Patient called to schedule an appointment with Dr. Grady. States she is having a lot of pain in her knee. She scheduled an appointment for August 29, but would like to be on a cancellation list. Please call her at [phone] if anything opens up sooner. Advice/Action: Source used: ( ) Verbalizes understanding [...] back cell phone number ( ) Source: [facility] POWERCHART Document Id: [id number] Miscellaneous - Meri Grady M.D. - 03/21/2015 2:13 PM CDT Ambulatory Patient Summary [address] [id number] Visit Information Name: GRICELDA REID LINUS [facility] Number: [id number] Current Date: 03/21/2015 14:13:01 Physicians Attending Provider: MERI GRADY MD Primary [...] the Following Medications: Medication list as of 03-21-15 14:13 Attention: If you have any medications at [...] Electronically Signed By: MERI GRADY MD Signed On:21-MAR-2015 14:12:44 Your Allergies & Intolerances Substance Reaction Symptoms Category Comments Keflex Drug Your Problem List Problem Status Onset Comments Degenerative Joint Disease Multiple Sites Active Gastric Bypass S/P Active Disorder Attention Deficit Hyperactive (ADHD) Active Depression Anxiety Active Hypothyroidism NOS Active Migraine Headache (AGUILERA) NOS Active Pain Back Lumbar Active Your Upcoming Appointments Date Time Location Provider 04/10/2015 16:30 [facility] ELEVATOR EXAMINER AND ADJUSTER Jhoan FLORES, Nemesio Ochoa Attention: Contact your local Clinic if further [...] if you dont have one. Go to [email or web address] and click on Create Your Account. Then, follow the directions to complete the online form. Youll be asked for your [facility] number which you can find at the top of this document. Your Goals/Additional instructions: Source: [facility] POWERCHART Document Id: [id number] Miscellaneous - Meri Grady M.D. - 03/21/2015 2:13 PM CDT Ambulatory Discharge Medication List [address] [id number] Visit Information Name: GRICELDA REID [facility] Number: [id number] Visit Date: 03/21/2015 14:13:00 Attending Provider: MERI GRADY MD Primary Care [...] the Following Medications: Medication list as of 03-21-15 14:13 Attention: If you have any medications at [...] Electronically Signed By: MERI GRADY MD Signed On:21-MAR-2015 14:12:44 Additional Information: Source: [facility] POWERCHART Document Id: [id number] Miscellaneous - Tamara Gilbert C.MMaki - 03/21/2015 12:51 PM CDT Adult Tube Drawer Intake/History Adult Tube Drawer Intake/History Entered On: 03/21/2015 12:54 CDT Performed On: 03/21/2015 12:51 CDT by TAMARA GILBERT Intake Systolic Blood Pressure : 118 mmHg Diastolic Blood Pressure : 72 mmHg NIBP Mean : 87 mmHg BP Location : Right upper extremity Blood Pressure Cuff Size : Regular Height : 165 cm(Converted to: 5 ft 5 inch(es), 65 inch(es)) Actual Weight : 88.9 kg(Converted to: 196 lb 0 oz) Weight Source : Standing scale Dosing Weight Clinic : 88.9 kg Clinic BSA : 2.02 Body Mass Index : 32.65 kg/m2 TAMARA GILBERT - 03/21/2015 12:51 CDT General Info Information Given By : Patient Languages : Kazakh Is Patient Female and 13-50 no hysterectomy : No TAMARA GILBERT - 03/21/2015 12:51 CDT Subjective Pain Symptoms : No TAMARA GILBERT - 03/21/2015 12:51 CDT Dependent Habits Tobacco Use/Currently Using : No Exposure to Tobacco Smoke : Other: former Smoking Status : Former smoker TAMARA GILBERT - 03/21/2015 12:51 CDT Caffeine Use Grid Caffeine Use : Current Type : Chocolate, Coffee, Soft drinks Frequency : Daily Amount : 1 cup, monsters 4 per day Last Use : 02/07/15 TAMARA GILBERT - 03/21/2015 12:51 CDT Recreational Drug Use Grid Drug Use : None TAMARA GILBERT - 03/21/2015 12:51 CDT Source: [employer] Document Id: [id number] CDT!33 documented in this encounter Plan of Treatment Not on filedocumented as of this encounter Visit Diagnoses Not on filedocumented in this encounter
--- OUTSIDE RECORDS SUMMARY | 2022-04-10 15:01 | XMS_ITS | Encounter Summary ---
:1980 Author Organization [facility] Address [address] [place] [id number] Care Team Providers Name Role Phone Unavailable Primary Care Provider Unavailable Encounter Details Date Type Department Care Team Description 06/12/2016 Hospital Encounter HX [facility]ILY[facility] Akhil Wilson P.A.-C. [address] [place] [address] (Wo rk) Social History Tobacco [...] you attend latter day or Never 2021 taoist services? 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 - 06/12/2016 10:29 AM CDT [id number] CHIEF COMPLAINT/REASON FOR VISIT Multiple issues. HISTORY OF PRESENT ILLNESS Gricelda is a 35-year-old female who has multiple issues. She has a history of a seizure disorder and she follows with Neurology for this. She has been having bilateral knee pain. Chronically, she has seen Dr. Grady for this. I did review his notes. She has previously had imaging. She has done physical therapy. She says that now her knees are bothering her quite a bit. Dr. Grady had previously written for patellofemoral braces but she said that she could not find them at a medical supply store so she did not get them. She is wondering if we can set her up with some. She also has had a history of rightear pain for quite some time. She is going to see Ear Nose and Throat but she did not do this because she needed to see audiology and the appointment was too far out. Her ear continues to bother her. It has been there for about a month. She was seen in the emergency room a while back for chest discomfort. This was found to be likely a muscle spasm and she was treated with potassium because she was hypokalemic. Her potassium was 3.2. She does have a history of bariatric surgery. Otherwise, no known reasons for her hypokalemia. She had many other questions today about her 's health and we willsee him on a separate basis. VITAL SIGNS Today are noted in the electronic medical record. PHYSICAL EXAMINATION GENERAL: She appears in no acute distress. KNEE: Examination of her knee shows no erythema or swelling. She has a full range of motion of her right knee. Drawer sign negative. Brianne's sign was negative although she did have some discomfort. There was no locking or clicking. She has discomfort on manipulation of the right patella. HEENT: Examination her right ear shows no erythema or swelling. The tympanic membrane has normal landmarks. No tenderness to manipulation of the auricle bilaterally. Throat no erythema. NECK: No lymphadenopathy. IMPRESSION/REPORT/PLAN 1. Knee pain. I am going to discuss options with her today. We talked about doing an MRI and furtherevaluation because of her history of locking. I am going to set her up to see Dr. Grady again but will try some knee supports. I gave her some today that fit and hopefully this will do the trick. She has done physical therapy. I discussed her exercises with her. She is going to try them again. If her exercises do not alleviate the symptoms, she will follow up with Dr. Grady as scheduled. 2. Hypokalemia. We discussed possible etiologies of this. Today I am going to do a metabolic panel today. I will notify her with the results. I will likely have her just eat a banana on a daily basis. I do not think she needs a potassium supplement. 3. Ear pain. We discussed this today. Likely this is allergic rhinitis contributing to eustachian tube disorder. I do not think we need ENT follow up at this point. We talked about the possibility of just trying some Flonase. She has never used this before. Her has used it and she would like to give it a try. Called this in for her. If her symptoms worsen or do not improve with this, she willlet us know. Total time spent today with Gricelda was 40 minutes, of which 25 of it was in yjsn-[id number] coordinationof care and counseling. If there is any further questions or any problems she will let us know. Oseas Wilson P.A.-C./caitlyn Electronically Signed By: OSEAS WILSON PA-C On: 06/12/2016 01:23 PM Source: [facility] MHSDOLBEYNONRADSYS Document Id: [id number] documented in this encounter Miscellaneous Notes Miscellaneous - Conversion, Historical Provider Ser - 05/11/2017 7:04 AM CDT Med Management Document Contains Addenda Addendum by SALINAS SCHNEIDER on May 12, 2017 16:26:10 CDT From: SALINAS SCHNEIDER ([facility] Entry Specialist) To: OSEAS WILSON PA-C; Sent: 05/12/2017 16:26:10 CDT Subject: FW: Med Management Provider: Dr. Wilson Pharmacy: [id number] [place] Name of Medication: sumitriptan (qty 1) Pharmacy Communication: Please clarify only 1 tab or 1 box? Thank you. [facility] [place]. Addendum by OSEAS WILSON PA-C on May 11, 2017 08:34:23 CDT From: OSEAS WILSON PA-C Sent: 05/11/2017 08:34:22 CDT Subject: RE:Med Management Approved Order:SUMAtriptan (SUMAtriptan 100 mg oral tablet) 1 tab(s) PO Once Qty: 1 tab(s) Refills: 5 Substitutions Allowed Route To Pharmacy [facility] 165 listed in doc by history Signed by OSEAS WILSON PA-C 05/11/2017 08:34:19 From: BJ BELTRÁN ([facility] Entry Specialist) To: OSEAS WILSON PA-C; Sent: 05/11/2017 07:04:00 CDT Subject: Med Management On hold pending signature Order:SUMAtriptan (SUMAtriptan 100 mg oral tablet) 1 tab(s) PO Once Qty: 1 tab(s) Refills: 5 Substitutions Allowed Route To [id number] listed in doc by history Source: [facility] Socket MobileCHART Document Id: [id number] Telephone Encounter - Conversion, Historical Provider Ser - 09/23/2016 11:57 AM CST *Phone Message/Derrick Document Contains Addenda Addendum by VEENA SHOOK CMA on September 23, 2016 14:20:56 [employer]DE Spoke with: ( _ ) Patient ( _ ) Parent ( _ ) Spouse ( _ ) Child ( x ) Other: [facility] Call back telephone number: see below Reason for Call: -return call Chief Complaint: spoke with [facility] wanted to know lasha information will send fax in 24-72 hours business Patient/Caller response to Education/Information given: ( x ) Verbalizes understanding of instructions ( _ [...] language for Healthcare discussion: _ Was an flight engineer helicopter used for this call? _ Other ( --_ ) Addendum by SANDOVAL HORNE LPN on September 23, 2016 12:16:55 [employer]DE From: SANDOVAL HORNE LPN ( [facility]) To: RAMON/DANIEL Medication Prior Auth; Sent: 09/23/2016 12:16:55 [employer] Subject: pa status From: ITZEL HARO To: RAMON Perry Nurse; Sent: 09/23/2016 11:57:29 PR[employer]NADE Subject: *Phone Message/HiperScanethler Caller is: ( ) Patient ( ) Mother ( ) Father ( ) Spouse ( ) Daughter ( ) Son ( ) Pharmacy ( x ) Other: Physician: Patient MRN #: Reason for Call: Message: [facility] Pharmacy checking on PA [EmbeddedHexData] Please call Advice/Action: Source used: ( ) Verbalizes understanding [...] back cell phone number ( ) Source: [facility] [employer] Document Id: [id number] Telephone Encounter - Conversion, Historical Provider Ser - 06/24/2016 11:39 AM CST *Phone Message/Oseas Document Contains Addenda Addendum by FRANCIA ROSALES RN on June 24, 2016 12:05 [employer] Done. See message dated 06/23/16. regarding med refills. Modified by and Electronically Signed by: FRANCIA ROSALES RN On: 06/24/2016 12:05 PM From: VICKY HAY ([facility] Wide Area Network Engineer) To: Derrick Nurse; Sent: 06/24/2016 11:39:23 [employer]DE Subject: *Phone Message/Oseas Caller is: ( x ) Patient ( ) Mother ( ) Father ( ) Spouse ( ) Daughter ( ) Son ( ) Pharmacy ( ) Other: Physician: Patient MRN #: Reason for Call: Gricelda is returning a call she received today from the nurse. Please call Gricelda backon her cell phone at [phone]. 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 - 06/23/2016 4:03 PM CST Citalopram vs Lexapro Document Contains Addenda Addendum by FRANCIA ROSALES RN on June 24, 2016 12:04:38 PR[employer]DE Spoke with patient, she is not taking Citalopram, only the Escitalopram. She also needed a few other refills. All meds that she needed refills on should be refillable by the pharmacy. I advised her I would call the pharmacy to make sure and send/request refills as needed. Called [facility], all meds do have refills available. The only one that they didn't see was the Vitamin B12 as they state they received a new Rx in January for a 1 month supply with no refills, i did not see that one on the med list. I do see a 10 month supply with 1 refill sent in December. Tech will check with pharmacist and see if able to fill of of that Rx. nothing further needed at this time. From: FRANCIA ROSALES RN (RAMON [place] Medication Refill) To: RAMON Blackwell Medication Refill; Sent: 06/23/2016 16:03:51 PRESS TENDER [employer]NADE Subject: Citalopram vs Lexapro received refill request from [facility] for patient's Citalopram. From notes and med list citalopram was DC'd on 12/21/15 and patient was changed to Escitalpram (Lexapro). Called patient to inquire as to why she is requesting Citalopram or if this was a mistake. Unable toreach patient. Left message to return call. Will fill or proposed Rx once we determine which medication is wanted. Source: [facility] POWERCHART Document Id: [id number] Electronically signed by Ruby, [facility] Renal Dialysis Technician [id number] at 01/04/2017 8:38 AM CDT Telephone Encounter - Conversion, Historical Provider Ser - 06/20/2016 4:30 PM CST *Phone Message Document Contains Addenda Addendum by SAKINA JENSEN LPN on June 20, 2016 16:42:40 PR[employer] T[employer]NADE notified of lab result and transferred to psr to schedule ER f/u appt in [place] From: FRANCIA CROSS (RAMON Wilson Nurse) To: RAMON Wilson Nurse; Sent: 06/20/2016 16:30:04 PR[employer]NADE Subject: *Phone Message Caller is: ( x ) Patient ( ) Mother ( ) Father ( ) Spouse ( ) Daughter ( ) Son ( ) Pharmacy ( ) Other: Physician: Patient MRN #: Reason for Call: Message: Patient called back unable to add to previouse note she is wanting to know what this call is about and would like a message left on her phone about what this is in regards to. [phone] Advice/Action: Source used: ( ) Verbalizes understanding [...] back cell phone number ( ) [facility] [place] Document Id: [id number] Telephone Encounter - Conversion, Historical Provider Ser - 06/20/2016 8:35 AM CST *Phone Message/Oseas Wilson Document Contains Addenda Addendum by CHRISTINE SEARS LPN on June 20, 2016 11:41:18 PR[employer] TEND[employer]NADE Left message for patient to return call. Addendum by OSEAS WILSON PA-C on June 20, 2016 11:39:27 PR[employer]NADE From: OSEAS WILSON PA-C To: RAMON Wilson Nurse; Sent: 06/20/2016 11:39:27 PRESS TENDER [employer]NADE Subject: RE: *Phone Message/Oseas Wilson please notify her that potassium was normal Addendum by CHRISTINE SEARS LPN on June 20, 2016 09:32:55 PRESS TEND[employer]NADE From: CHRISTINE SEARS LPN (RAMON Wilson Nurse) To: OSEAS WILSON PA-C; Sent: 06/20/2016 09:32:55 PRESS TENDER INC[employer]IARY GRENADE Subject: FW: *Phone Message/Oseas Shpeardwestley Tripp have you seen her ER note? From: OCHOA SÁCNHEZ ([facility] Wide Area Network Engineer) To: RAMON Wilson Nurse; Sent: 06/20/2016 08:35:23 PRESS TENDER [employer]IARY GRENADE Subject: *Phone Message/Oseas Wilson Caller is: ( x ) Patient ( ) Mother ( ) Father ( ) Spouse ( ) Daughter ( ) Son ( ) Pharmacy ( ) Other: Physician: Oseas Wilson Patient MRN #: Reason for Call: Message: Patient states that she still hasn't heard back from Latonia and wasn't sure what it was about. She had some blood work and thinks maybe she had called regarding the results of her potassium. Isaac wanted Oseas to know that she had a seizure on Thursday the . Please call her back at [phone]. Advice/Action: Source used: ( ) Verbalizes understanding [...] back cell phone number ( ) Source: [facility] POWERCHART Document Id: [id number] Telephone Encounter - Conversion, Historical Provider Ser - 06/18/2016 1:20 PM CST *Phone Message Document Contains Addenda Addendum by LATONIA ANTHONY LPN on June 23, 2016 09:55:59 PRESS TEND[employer]DE Patient is aware of her lab results. Addendum by SAKINA JENSEN LPN on June 18, 2016 13:48:22 PRESS TEND[employer] GRENADE From: SAKINA JENSEN LPN (RAMON Wilson Nurse) To: LATONIA ANTHONY LPN; Sent: 06/18/2016 13:48:22 PRESS TENDER [employer] GRENADE Subject: FW: *Phone Message Addendum by SAKINA JENSEN LPN on June 18, 2016 13:48:18 PRESS TENDER INC[employer] GRENADE Gricelda is returning a call to Latonia, please call her back at [phone] From: YOKO KAMINSKI ([facility] Nurse) To: RAMON Wilson Nurse; Sent: 06/18/2016 13:20:02 PRESS TENDER INC[employer]IARY GRENADE Subject: *Phone Message Caller is: ( x ) Patient ( ) Mother ( ) Father ( ) Spouse ( ) Daughter ( ) Son ( ) Pharmacy ( ) Other: Physician: Patient MRN #: Reason for Call: Message: patient calling- is returning a call from last week- call her back at [phone] Advice/Action: Source used: ( ) Verbalizes understanding [...] back cell phone number ( ) Source: [facility] POWERCHART Document Id: [id number] Miscellaneous - Oseas Wilson P.A.-C. - 06/12/2016 5:36 PM CDT Results Notification Document Contains Addenda Addendum by LATONIA ANTHONY LPN on June 13, 2016 08:53:10 CDT Left message to return call. From: OSEAS WILSON PA-C To: LATONIA ANTHONY LPN; Sent: 06/12/2016 17:36:59 CDT ! Show up: 06/12/2016 17:36:59 CDT Subject: Results Notification Actions: Note to Nurse Reminder Comments: Please notify patient that her potassium is normal.No further treatment needed. Results: Date Result Name Ind Value Ref Range 06/12/2016 11:44 Sodium Lvl 141 mmol/L (135 - 145) 06/12/2016 11:44 Potassium Lvl 4.2 mmol/L (3.6 - 5.2) 06/12/2016 11:44 Chloride 100 mmol/L (98 - 107) 06/12/2016 11:44 CO2 (H) 30 mmol/L (22 - 29) 06/12/2016 11:44 AGAP 11 mmol/L (7 - 15) 06/12/2016 11:44 Glucose Lvl 74 mg/dL (70 - 139) 06/12/2016 11:44 Creatinine 0.79 mg/dL (0.60 - 1.10) 06/12/2016 11:44 EGFR (MDRD) >60 mL/min/1.73m2 (>=60 - ) 06/12/2016 11:44 EGFR (MDRD) >60 mL/min/1.73m2 (>=60 - ) 06/12/2016 11:44 BUN (L) 5 mg/dL (6 - 21) 06/12/2016 11:44 Calcium Lvl 9.1 mg/dL (8.0 - 10.3) Source: [facility] POWERCHART Document Id: [id number] Electronically signed by Conversion, [facility] Renal Dialysis Technician [id number] at 01/04/2017 8:38 AM CDT Telephone Encounter - Conversion, Historical Provider Ser - 06/12/2016 12:48 PM CDT *Phone Message Document Contains Addenda Addendum by RAJESH DALAL LPN on June 12, 2016 13:05:26 CDT Patient added to cancellation list. From: RAYMON ZARAGOZA ( [facility] Wide Area Network Engineer) To: Physical Medicine and Rehabilitation Staff; Sent: 06/12/2016 12:48:00 CDT Subject: *Phone Message Caller is: ( x) Patient ( ) Mother ( ) Father ( ) Spouse ( ) Daughter ( ) Son ( ) Pharmacy ( ) Other: Physician: Patient MRN #: Reason for Call: Patient asked to be added to the cancellation list. She has appt August 2016. She can be reached at [phone] Message: Advice/Action: Source used: ( ) Verbalizes [...] back cell phone number ( ) Source: [facility] [employer] Document Id: [id number] Miscellaneous - Oseas Wilson P.A.-C. - 06/12/2016 11:52 AM CDT Ambulatory Patient Summary [address] [id number] Visit Information Name: JEANETTEGRICELDA [facility] Number: [id number] Current Date: 06/12/2016 11:52:15 Physicians Attending Provider: OSEAS WILSON PA-C Primary [...] once a day fluticasone nasal (Flonase) 1 [place](s), Nasal, once a day fluticasone nasal (Flonase 50 mcg/inh nasal spray) 2 [place](s), Nasal, once a day Routed to [address] [id number] gabapentin (gabapentin 300 mg oral capsule) 1 [...] a day (at bedtime) x 30 day(s) Stop Taking the Following Medications: Medication list as of 06-12-16 11:52 Attention: If you have any medications at [...] Electronically Signed By: OSEAS WILSON PA-C Signed On:12-JUN-2016 11:25:13 Your Allergies & Intolerances Substance Reaction Symptoms [...] Your Upcoming Appointments Date Time Location Provider 08/13/2016 13:45 [facility] Kenrick Grady MD Attention: Contact your local Clinic if further [...] if you dont have one. Go to [email or web address] and click on Create Your Account. Then, follow the directions to complete the online form. Youll be asked for your [facility] number which you can find at the top of this document. Your Goals/Additional instructions: Source: [facility] POWERCHART Document Id: [id number] Miscellaneous - Oseas Wilson P.A.-C. - 06/12/2016 11:52 AM CDT Ambulatory Discharge Medication List [address] [id number] Visit Information Name: JEANETTEGRICELDA [facility] Number: [id number] Current Date: 06/12/2016 11:52:14 Attending Provider: OSEAS WILSON PA-C Primary Care [...] once a day fluticasone nasal (Flonase) 1 [place](s), Nasal, once a day fluticasone nasal (Flonase 50 mcg/inh nasal spray) 2 [place](s), Nasal, once a day Routed to [address] [id number] gabapentin (gabapentin 300 mg oral capsule) 1 [...] a day (at bedtime) x 30 day(s) Stop Taking the Following Medications: Medication list as of 06-12-16 11:52 Attention: If you have any medications at [...] Electronically Signed By: OSEAS WILSON PA-C Signed On:12-JUN-2016 11:25:13 Additional Information: Source: [facility] [employer] Document Id: [id number] Miscellaneous - Latonia Anthony L.P.N. - 06/12/2016 10:45 AM CDT PHQ-9 PHQ-9 Entered On: 06/12/2016 10:46 CDT Performed On: 06/12/2016 10:45 CDT by LATONIA ANTHONY LPN PHQ-9 Little interest or pleasure in doing things : Not at all Feeling down, depressed, or hopeless : Not at all Trouble falling or staying asleep, or sleeping too much : Nearly every day Feeling tired or having little energy : More than half the days Poor appetite or overeating : Not at all Feeling bad about yourself or that you are a failure : Not at all Trouble concentrating on things : Nearly every day Moving or speaking slowly; restless or fidgety : Not at all Thoughts that you would be better off /hurting self : Not at all PHQ-9 Calculated Score : 8 Problems make work, home, or dealing with others : Somewhat difficult LATONIA ANTHONY LPN - 06/12/2016 10:45 CDT [facility] [place] Document Id: [id number] CDT!13 Chikiscelllamberto - Latonia Anthony L.PRafalNRafal - 06/12/2016 10:40 AM CDT Adult Trapeze Artist Intake/History Adult Trapeze Artist Intake/History Entered On: 06/12/2016 10:43 CDT Performed On: 06/12/2016 10:40 CDT by LATONIA ANTHONY LPN Intake Chief Complaint : states right knee hurts and right ear hurts when using a Q-tip on ear. Onset of Symptoms : 3 weeks Temperature Core : 36.9 DegC(Converted to: 98.4 DegF) Peripheral Pulse Rate : 88 /min Respiratory Rate : 16 /min Systolic Blood Pressure : 110 mmHg Diastolic Blood Pressure : 72 mmHg NIBP Mean : 85 mmHg BP Location : Right upper extremity Blood Pressure Cuff Size : Large Height : 165 cm(Converted to: 5 ft 5 inch(es), 65 inch(es)) Actual Weight : 91.6 kg(Converted to: 201 lb 15 oz) Weight Source : Standing scale Dosing Weight Clinic : 91.6 kg Clinic BSA : 2.05 Body Mass Index : 33.65 kg/m2 LATONIA ANTHONY LPN 06/12/2016 10:40 CDT General Info Information Given By : Patient Preferred Communication Mode : Verbal Languages : Persian Is Patient Female and 13-50 no hysterectomy : No LATONIA ANTHONY LPN - 06/12/2016 10:40 CDT Subjective Pain Symptoms : Yes LATONIA ANTHONY LPN 06/12/2016 10:40 CDT Pain Scale Pain Scale Verbal 0-10 : Open LATONIA ANTHONY LPN 06/12/2016 10:40 CDT Pain Pain Assessment Grid Pain 1 Pain 2 Location : Knee Ear Laterality : Right Right Intensity : 8 8 (Comment: denies pain at this time, states when using a Q-tip it hurts. [LATONIA ANTHONY LPN 06/12/2016 10:40 CDT] ) Duration : 3 weeks 3 weeks LATONIA ANTHONY LPN 06/12/2016 10:40 CDT LATONIA ANTHONY LPN 06/12/2016 10:40 CDT Dependent Habits Exposure to Tobacco Smoke : Other: former Smoking Status : Former smoker Tobacco 2A : Yes Tobacco Use/Currently Using : No Tobacco Use/Last 30 Days : No Tobacco Use/Last 12 months : No Tobacco Last Use/Year : 1997 Alcohol Use : No LATONIA ANTHONY LPN 06/12/2016 10:40 CDT Caffeine Use Grid Caffeine Use : Current Type : Chocolate, Coffee, Soft drinks Frequency : Daily Amount : 1 cup, monsters 4 per day Last Use : 06/12/16 LATONIA ANTHONY LPN - 06/12/2016 10:40 CDT Recreational Drug Use Grid Drug Use : None LATONIA ANTHONY LPN - 06/12/2016 10:40 CDT Source: [facility] POWERCHART Document Id: [id number] CDT!58 documented in this encounter Plan of Treatment Not on filedocumented as of this encounter Procedures Procedure Name Priority Date/Time Associated Diagnosis Comme nts BASIC METABOLIC Routine 06/12/2016 11:44 AM Resul ts for this PANEL, S/P CDT procedure are i n the results section. documented in this encounter Results (ABNORMAL) BMP (Basic Metabolic Panel) (06/12/2016 11:44 AM CDT) P athologist Signature Sodium, S 141 135 - 145 POWERCHART MMOLL Potassium, S 4.2 3.6 - 5.2 POWERCHART MMOLL Chloride, S 100 98 - 107 POWERCHART MMOLL CO2 Total 30 (H) 22 - 29 POWERCHART MMOLL BUN (Blood Urea 5 (L) 6 - 21 POWERCHART Nitrogen), S MGDL Creatinine 0.79 0.60 - POWERCHART 1.10 MGDL Calcium, Total, 9.1 8.0 - 10.3 POWERCHART S MGDL Anion Gap 11 7 - 15 POWERCHART MMOLL HXeGFR (MDRD) >60 >=60 POWERCHART [id number] eGFR >60 >=60 POWERCHART Black/ [id number] [place] Glucose 74 70 - 139 POWERCHART MGDL Specimen (Source) Anatomical Collection Method Collection Time Re ceived Time Location / / Volume Laterality Blood 06/12/2016 11:44 AM CDT Oseas Wilson P.A.-C. LAB BLOOD ADD-ON Performing Organization Address City/State/ZIP Code Phon e Number POWERCHART documented in this encounter Visit Diagnoses Not on filedocumented in this encounter Additional Health Concerns Assessment Noted Time PHQ-9 Depression Total Score: 8 06/12/2016 10:45 AM CD T documented as of this encounter
--- OUTSIDE RECORDS SUMMARY | 2022-04-10 15:01 | XMS_ITS | Encounter Summary ---
:1980 Author Organization [facility] Address [address] [place] [address] Care Team Providers Name Role Phone Unavailable Primary Care Provider Unavailable Encounter Details Date Type Department Care Team Description 04/22/2016 Hospital Encounter HX [facility] MRI Caprice Stuart M.D. [address] [place], [place] [phone] (Wo rk) Social History [...] do you attend protestant or Never 2021 rastafari services? 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 documented as of this encounter Procedure Notes Sharad Mei R.T.(R), Steph(R)(MR) - 04/22/2016 1:40 PM CDT Peripheral IV Peripheral IV Entered On: 04/22/2016 13:25 CDT Performed On: 04/22/2016 13:40 CDT by SHARAD MEI(Shubham), Steph(R)(MR) Peripheral IV Peripheral IV Assess/Intervention Grid Peripheral IV #1 IV Activity : Discontinue Removal : Catheter intact Date of Insertion : 04/22/2016 CDT Discontinued Date : 04/22/2016 CDT IV Site : Antecubital Laterality : Left Catheter Size : 22 Catheter Type : Over the needle Site Condition : No complications SHARAD MEI(R)Steph(R)(MR) - 04/22/2016 13:24 CDT Source: [employer] Document Id: [id number] CDT!13 Sharad Mei R.T.(R)Steph(R)(MR) - 04/22/2016 1:02 PM CDT Peripheral IV Peripheral IV Entered On: 04/22/2016 13:02 CDT Performed On: 04/22/2016 13:02 CDT by SHARAD MEI(R)Steph(R)(MR) Peripheral IV Peripheral IV Assess/Intervention Grid Peripheral IV #1 IV Activity : Start Number of Attempts : 1 Date of Insertion : 04/22/2016 CDT IV Site : Antecubital Laterality : Left Catheter Size : 22 Catheter Type : Over the needle AMARIJIMBOSHARAD MCARTHUR(R)Steph(R)(MR) - 04/22/2016 13:02 CDT Source: [employer] Document Id: [id number] CDT!11 documented in this encounter Miscellaneous Notes Miscellaneous - Caprice Stuart M.D. - 04/23/2016 10:47 AM CDT Results Notification Document Contains Addenda Addendum by JOHANNA SCRUGGS LPN on April 23, 2016 11:26:13 CDT Patient is notified Addendum by JOHANNA SCRUGGS LPN on April 23, 2016 11:22:08 CDT Left message to call back. From: CAPRICE STUART MD To: [facility] Nephrology/Neurology Nurse; Sent: 04/23/2016 10:47:59 CDT ! Show up: 04/23/2016 10:47:59 CDT Subject: Results Notification Actions: Notify patient of results Reminder Comments: Normal brain MRI, nothing to account for any seizures. Will keep follow up as planned at 6 months, call sooner if seizure in mean time. Please convey to Ms. Roberts. Thanks! Results: Date Result Type Result Name 04/22/2016 14:32 Radiology MR Brain w/ + w/o contrast Source: [facility] [employer] Document Id: [id number] Electronically signed by Conversion, [facility] Physical Therapy Instructor [id number] at 01/04/2017 6:00 AM CDT documented in this encounter Plan of Treatment Not on filedocumented as of this encounter Procedures Procedure Name Priority Date/Time Associated Diagnosis Comme nts MR BRAIN WITHOUT Routine 04/22/2016 12:44 PM Resu lts for this AND WITH IV CDT procedure are i n CONTRAST the results section. documented in this encounter Results MR Brain without and with IV Contrast (04/22/2016 12:44 PM CDT) Anatomical Region Laterality Modality Head, Brain N/A Magnetic Resonance Specimen (Source) Anatomical Collection Method Collection Time Re ceived Time Location / / Volume Laterality 04/22/2016 12:44 PM CDT Addenda Addendum by Provider, Ana Murphy 04/22/2016 12:44 PM CDT RAD^^^OW MR Brain w ??and w o contrast 04/22/2016 12:44:11 Impressions 04/22/2016 2:29 PM CDT 1. Mild amount of nonspecific white jaz er changes. FINDINGS: Negative for epileptogenic foc us. Negative for mesial temporal sclerosis. There are few small T2 hyperintensities within the white matter of the right external capsule and bilateral anterior-superior frontal subcortexes (series 6 images 20-21, seri es 6 images 28-29). These white matter changes are nonspecific, th ough common etiologies include premature chronic microangiopath y or common insult from trauma, toxin, or infection. Negative for hemorrhage, herniation, hyd rocephalus, mass, atrophy, or acute infarct. Narrative 04/22/2016 2:29 PM CDT EXAM: MR Brain w/ + w/o contrast INDICATION: Seizure AGE: 35 years-old TECHNIQUE: With and without IV 8.7 mL Ga davist contrast. Seizure protocol. COMPARISON: None. Procedure Note Caprice Pringle M.D. / Katherine Thpaa M.D. - 12/13/2016 EXAM: MR Brain w/ + w/o contrast INDICATION: Seizure AGE: 35 years-old TECHNIQUE: With and without IV 8.7 mL Ga davist contrast. Seizure protocol. COMPARISON: None. IMPRESSION: 1. Mild amount of nonspecific white jaz er changes. FINDINGS: Negative for epileptogenic foc us. Negative for mesial temporal sclerosis. There are few small T2 hyperintensities within the white matter of the right external capsule and bilateral anterior-superior frontal subcortexes (series 6 images 20-21, seri es 6 images 28-29). These white matter changes are nonspecific, th ough common etiologies include premature chronic microangiopath y or common insult from trauma, toxin, or infection. Negative for hemorrhage, herniation, hyd rocephalus, mass, atrophy, or acute infarct. 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
--- OUTSIDE RECORDS SUMMARY | 2022-04-10 15:01 | XMS_ITS | Encounter Summary ---
:1980 Author Organization [facility] Address [address] [place] [address] Care Team Providers Name Role Phone Unavailable Primary Care Provider Unavailable Encounter Details Date Type Department Care Team Description 10/28/2016 Hospital Encounter HX [facility] Michael Grady M.D. [address] [place] [address], [address] [place] [address] (Wo rk) Social History Tobacco [...] do you attend episcopalian or Never 2021 hindu services? 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 - 10/28/2016 10:55 AM CDT [id number] CHIEF COMPLAINT/REASON FOR VISIT Bilateral knee pain and low back pain. HISTORY OF PRESENT ILLNESS Ms. Reid is a pleasant 35-year-old female who returns today. She reports that she has had worsening bilateral knee pain over the past several months. She describes the pain as being located primarily in the medial and lateral parapatellar regions. It is worse when she does any standing or walking. Also if she does any kneeling this is uncomfortable for her. At times she feels as if her knee could buckle or give out on her. She denies any catching or locking of the knee. She denies any swelling, warmth, or erythema about either knee. She is also experiencing pain in her low back for the past several months. This pain is located primarily in the right side of her low back and can radiate into the right gluteal region. Very occasionally she can have paresthesias that can encompass her right lateral thigh but that is not frequent. She denies any focal weakness in her lower extremities, change in bowel or bladder habits, fevers or chills, or recent unintentional weight loss. PHYSICAL EXAMINATION GENERAL: Pleasant 35-year-old female in no acute distress. GAIT: Nonantalgic. MUSCULOSKELETAL: Spine: Preserved lumbar spine range of motion. Palpation: There is tenderness to palpation over the right lower lumbar paraspinals in the region of the right sacroiliac joint. Strength: All major muscle groups of the bilateral lower extremities have normal and symmetric muscle strength, bulk and tone. Reflexes: Bilateral lower extremity muscle stretch reflexes are physiologic and symmetric. Plantar responses downgoing bilaterally. Sensation: Normal light touch sensation through lower extremities. Straight leg raise is negative for radicular pain or paresthesias bilaterally. Knee: There is no effusion present in either knee. There is no warmth or erythema about either knee. Range of motion from 0 to 130 degrees bilaterally. [facility] are negative bilaterally. Positive patellar grind. There is tenderness to palpation about the lateral and medial patellar facets bilaterally. IMPRESSION/REPORT/PLAN 1. Bilateral knee pain. 2. Left knee patellofemoral degenerative joint disease. 3. Low back pain. 4. Intermittent right lower extremity pain. Ms. Reid has a normal neurologic examination today. I feel that her symptoms are multifactorial. I do feel that her bilateral knee pain is most consistent with patellofemoral pain syndrome and her low back pain is most consistent with mechanical low back pain. She is having very occasional paresthesias that can involve the right lateral thigh but this is infrequent. She has a normal neurologic examination today. PLAN: 1. I am going to proceed today with x-rays of the bilateral knees and lumbar spine with Ms. Reid's discomfort. 2. We did discuss the possibility of proceeding with bilateral knee intra- articular injections with Synvisc One depending on the results of her imaging studies. Ms. Reid has previously had a left knee intra-articular corticosteroid injection which was not helpful for her. I also would like her to be involved in physical therapy as she has fallen away from the exercises she was shown previously secondary to her discomfort. This would be for both her bilateral patellofemoral pain syndrome as well as for her low back pain. She would be motivated to be involved in therapy. 3. I am going to give her a prescription for bilateral patellofemoral support braces. She found those to be very helpful when she had them previously but they were stolen when she was at the gym. 4. We will plan on being in contact with Ms. Reid following her x-rays and she knows to be in contact with us prior to that time if she notes any worsening or worrisome symptoms which we went over in detail today. Ms. Reid was voiced agreement and understanding with this plan. Total time 45 minutes, counseling and coordination of care time greater than 25 minutes. Meri Grady M.D./caitlyn Electronically Signed By: MERI GRADY MD On: 10/29/2016 11:07 AM Modified by and Electronically Signed by: MERI GRADY MD On: 10/29/2016 11:07 AM Source: [facility] MHSDOLBEYNON[employer]SYS Document Id: [id number] documented in this encounter Miscellaneous Notes Miscellaneous - Meri Grady M.D. - 10/28/2016 11:54 AM CDT Ambulatory Patient Summary [address] [id number] Visit Information Name: GRICELDA REID [facility] Number: [id number] Current Date: 10/28/2016 11:54:10 Physicians Attending Provider: MERI GRADY MD Primary [...] once a day fluticasone nasal (Flonase) 1 Pioneer(s), Nasal, once a day fluticasone nasal (Flonase 50 mcg/inh nasal spray) 2 Pioneer(s), Nasal, once a day gabapentin (gabapentin 300 [...] the Following Medications: Medication list as of 10-28-16 11:54 Attention: If you have any medications at [...] Electronically Signed By: MERI GRADY MD Signed On:28-OCT-2016 11:53:38 Your Allergies & Intolerances Substance Reaction Symptoms [...] if you dont have one. Go to [email or web address] and click on Create Your Account. Then, follow the directions to complete the online form. Youll be asked for your [facility] number which you can find at the top of this document. Your Goals/Additional instructions: Source: [facility] [employer] Document Id: [id number] Miscellaneous - Meri Grady M.D. - 10/28/2016 11:54 AM CDT Ambulatory Discharge Medication List [address] [id number] Visit Information Name: GRICELDA REID [facility] Number: [id number] Current Date: 10/28/2016 11:54:09 Attending Provider: MERI GRADY MD Primary Care [...] once a day fluticasone nasal (Flonase) 1 Pioneer(s), Nasal, once a day fluticasone nasal (Flonase 50 mcg/inh nasal spray) 2 Pioneer(s), Nasal, once a day gabapentin (gabapentin 300 [...] the Following Medications: Medication list as of 10-28-16 11:54 Attention: If you have any medications at [...] Electronically Signed By: MERI GRADY MD Signed On:28-OCT-2016 11:53:38 Additional Information: Source: [facility] [employer] Document Id: [id number] Miscellaneous - Yenny Bermudez L.PIsiah - 10/28/2016 11:11 AM CDT 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 Intake/History 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 Intake/History Entered On: 10/28/2016 11:12 CDT Performed On: 10/28/2016 11:11 CDT by YENNY BERMUDEZ LPN Intake Systolic Blood Pressure : 133 mmHg Diastolic Blood Pressure : 79 mmHg NIBP Mean : 97 mmHg BP Location : Left upper extremity Blood Pressure Cuff Size : Regular Height : 165 cm(Converted to: 5 ft 5 inch(es), 65 inch(es)) Actual Weight : 92.05 kg(Converted to: 202 lb 15 oz) Dosing Weight Clinic : 92.05 kg Clinic BSA : 2.05 Body Mass Index : 33.81 kg/m2 YENNY BERMUDEZ LPN - 10/28/2016 11:11 CDT General Info Information Given By : Patient Languages : Citizen Of [place] Is Patient Female and 13-50 no hysterectomy : No YENNY BERMUDEZ LPN - 10/28/2016 11:11 CDT Subjective Pain Symptoms : No YENNY BERMUDEZ LPN - 10/28/2016 11:11 CDT Dependent Habits Exposure to Tobacco Smoke : Other: former Smoking Status : Former smoker Tobacco 2A : Yes Tobacco Use/Currently Using : No Tobacco Use/Last 30 Days : No Tobacco Use/Last 12 months : No Tobacco Last Use/Year : 1997 YENNY BERMUDEZ LPN - 10/28/2016 11:11 CDT Caffeine Use Grid Caffeine Use : Current Type : Chocolate, Coffee, Soft drinks Frequency : Daily Amount : 1 cup, monsters 4 per day Last Use : 06/26/2016 YENNY BERMUDEZ SENIOR TALENT ACQUISITION SPECIALIST - 10/28/2016 11:11 CDT Recreational Drug Use Grid Drug Use : None YENNY BERMUDEZ SENIOR TALENT ACQUISITION SPECIALIST - 10/28/2016 11:11 CDT Source: [facility] [employer] Document Id: [id number] CDT!36 documented in this encounter Plan of Treatment Not on filedocumented as of this encounter Procedures Procedure Name Priority Date/Time Associated Diagnosis Comme nts DX KNEE BILATERAL 3 Routine 10/28/2016 11:49 AM R esults for this VIEWS CDT procedure are i n the results section. DX LUMBAR SPINE 2-3 Routine 10/28/2016 11:49 AM R esults for this VIEWS CDT procedure are i n the results section. documented in this encounter Results DX Knee Bilateral 3 Views (10/28/2016 11:49 AM CDT) Anatomical Region Laterality Modality Lower Extremity, Knee Bilateral Radiographic Imagi ng Specimen (Source) Anatomical Collection Method Collection Time Re ceived Time Location / / Volume Laterality 10/28/2016 11:49 AM CDT Addenda Addendum by Provider, Ana Murphy 10/28/2016 11:49 AM CDT RAD^^^OW XR Knee Bilat 3 views 10/28/2016 11:49:06 Impressions 10/28/2016 2:15 PM CDT No appreciable acute osseous injury of either knee. Narrative 10/28/2016 2:15 PM CDT EXAM: ??XR Knee Bilat 3 views. DEMOGRAPHICS: ??35 years Female. INDICATION: ??knee pain. ??Not otherwise specified. COMPARISON: ??July 13, 2014. FINDINGS: ??No appreciable acute osseous injury of the bilateral knees. Normal alignment. Normal mineralization. Tiny bilateral knee joint effusions. If clinically indicated MRI of the regio n of clinical interest would be more sensitive for evaluation of poss ible occult internal derangement/occult osseous injury not ap parent on radiographs. Procedure Note Lito Paz M.D. / ProviderChristian M.D. - 01/26/2017 EXAM: XR Knee Bilat 3 views. DEMOGRAPHICS: 35 years Female. INDICATION: knee pain. Not otherwise spe cified. COMPARISON: July 13, 2014. FINDINGS: No appreciable acute osseous i njury of the bilateral knees. Normal alignment. Normal mineralization. Tiny bilateral knee joint effusions. If clinically indicated MRI of the regio n of clinical interest would be more sensitive for evaluation of poss ible occult internal derangement/occult osseous injury not ap parent on radiographs. IMPRESSION: No appreciable acute osseous injury of either knee. Rosalba Isabel R.Nadia(R), R.TRafal(R)(M) IMG DIAGNOSTIC IM AGING PROCEDURES DX Lumbar Spine 2-3 Views (10/28/2016 11:49 AM CDT) Anatomical Region Laterality Modality Lumbar Spine N/A Radiographic Imaging Specimen (Source) Anatomical Collection Method Collection Time Re ceived Time Location / / Volume Laterality 10/28/2016 11:49 AM CDT Addenda Addendum by Provider, Ana Murphy o tina 10/28/2016 11:49 AM CDT RAD^^^OW XR Lumbar Spine 2 or 3 views 10/28/2016 11:49:06 Impressions 10/28/2016 2:16 PM CDT No acute findings. Narrative 10/28/2016 2:16 PM CDT EXAM: ??XR Lumbar Spine 2 or 3 views. DEMOGRAPHICS: ??35 years Female. INDICATION: ??low back pain. COMPARISON: ??None FINDINGS: ??5 lumbar type vertebral bodi es. Mild mid lumbar curve convex right. Surgical clips projected over the centra l abdomen. No appreciable acute osseous injury of t he lumbar spine. Procedure Note Lito Paz M.D. / Provider, Christian payne M.D. - 01/26/2017 EXAM: XR Lumbar Spine 2 or 3 views. DEMOGRAPHICS: 35 years Female. INDICATION: low back pain. COMPARISON: None FINDINGS: 5 lumbar type vertebral bodies . Mild mid lumbar curve convex right. Surgical clips projected over the centra l abdomen. No appreciable acute osseous injury of t he lumbar spine. IMPRESSION: No acute findings. Rosalba Choi(R), RRafalTRafal(R)(M) IMG DIAGNOSTIC IM AGING PROCEDURES documented in this encounter Visit Diagnoses Not on filedocumented in this encounter Additional Health Concerns Assessment Noted Time PHQ-9 Depression Total Score: 8 06/12/2016 10:45 AM CD T documented as of this encounter
--- OUTSIDE RECORDS SUMMARY | 2022-04-10 15:01 | XMS_ITS | Encounter Summary ---
:1980 Author Organization [facility] Address [address] [place] [address] Care Team Providers Name Role Phone Unavailable Primary Care Provider Unavailable Encounter Details Date Type Department Care Team Description 10/16/2016 Hospital Encounter HX [facility] Allie Beltran, CENTERLESS GRINDER OPERATOR, C.N.P. [address] [place] [address] (Wo rk) Social History Tobacco Use Types [...] do you attend restorationist or Never 2021 mormon services? 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 - 10/16/2016 5:55 PM CST [facility] Good Afternoon Gricelda, I'm sorry to hear that you're not feeling well and are having urinary symtpoms. I am really concerned that you report that you are having flank (kidney) pain and have noted blood in the urine. Because of that we can not treat you via e- visit and you need to be seen in person to have urine testing completed. You may have a kidney infection so it is important that you get seen sooner rather than later.You can call your primary clinic to further discuss with a nurse and get an appointment to be seen. Because I am recommending that you be seen in person you will not be billed for this e-visit. Regards, Dulce Maria Urbano [facility] From: Gricelda Roberts To: PANKAJ/MARIA ESTHER [facility] Sent: 10/16/2016 5:21 PM WATERSHED COORDINATOR Subject: e-Visit for urinary tract infection Thank you for your message. It has been sent to the appropriate care team. Oct 16, 2016 6:10 PM Chief Complaint Gricelda Roberts is a 35 year old female. The [place] e-Visit for urinary tract infection screening questionnaire was administered. The following are the patient's responses. History of Present Illness #1. [place] e-Visit for urinary tract infection: Duration: Patient reported: Urinary tract symptoms 1 to 2 weeks. Last menstrual period more than a year ago. Vaginal discharge within the last month. Timing: Patient reported: Strong urge to urinate. Severity: Patient reported: Urinary tract pain moderate (5-6/10). Flank pain discomforting at its worst. Wanting prescription for urinary tract pain. Quality: Patient reported: Foul smelling urine. Pain in the side moderately sharp. Blood in the urine. Cloudy urine. Unable to completely empty bladder. Pain in side. Painful urination. Frequent urination. Patient denied: Surgery in pelvic or genital area within the past 3 months. Modifying Factors: Patient reported: Pain in the side sometimes better by lying down. Past, Family, and Social History Past Medical History Allergy and Immunology Patient denied: Immune system suppressed. Nephrology Patient denied: Urogenital disease with structural abnormality. Chronic kidney disease with impairedrenal function. Kidney infection within the last 3 months. Urology Patient denied: Urinary procedure within the last 2 weeks. Kidney stones. Accidents and Injuries Patient denied: Abdominal trauma. History Patient denied: or thinks . Social History Patient reported: Living in a house. Sexual History History of: Unprotected sexual intercourse in the last 3 months. Current sexual activity. No contraception. Medication History Patient denied: Currently on digoxin, warfarin, phenytoin, or oral anti-fungal medication (azoles). Ongoing Medications History of: Antibiotic treatment for urinary infection prevention. Past Medications History of: Sulfonamide within the last 3 months. Not sure if took anticoagulants (medication that reduces blood clotting in arteries, veins and heart). Adverse Drug Reactions Patient denied: Medication side effect from antibiotics of yeast infection. Allergy History Medication Allergies Patient denied: Allergic reaction to sulfa. Nitrofurantoin allergy. Prior Treatments History of: Antibiotic treatment for previous urinary tract infection. Treatment for urinary tract infection in the last week and once within the last 12 months. Patient denied: Hospitalization. Review of Systems Constitutional Patient reported: Feeling feverish. Did not measure temperature when feverish. Breast Patient denied: Currently a child. Gastrointestinal Patient reported: Stomach pain moderate and does not vary much. Nausea this week. Mild sharp stomachpain. Patient denied: Abdominal pain other than suprapubic pain. Stomach pain relieved by knee chest position. Recent vomiting. Genitourinary Sexual Function Patient denied: Painful intercourse. Questions and Responses Are you having pain or burning when you urinate? Yes When you urinate, do you feel a sense of urgency (feeling like you have to go right away)? Yes Are you having pain or burning when you urinate? Yes When you urinate, do you feel a sense of urgency (feeling like you have to go right away)? Yes Have you noticed an increase in the number of times you urinate? Yes How long have you had urinary symptoms? 1 to 2 weeks The following questions are about your urinary tract symptoms. OK Is your urine cloudy or discolored? Yes Is there a foul odor to your urine? Yes Do you have blood in your urine? Yes After urinating, do you sometimes feel you do not completely empty your bladder? Yes How would you rate your urinary tract pain on a scale of 1 to 10 (10 being severe pain)? 5 to 6 (Moderate pain) Do you feel prescription pain medication for your bladder discomfort (i.e. Pyridium) would be helpful? Yes Do you have abdominal pain? Yes Do you have flank pain, a pain in the side of your back below the ribs? Yes At its worst, how would you describe the severity of your flank pain? Discomforting Is the flank pain improved if you lay down? Sometimes To what degree would you describe your average flank pain as sharp? Moderate Have you had any abdominal pain located anywhere other than over your bladder (just above the pubic bone in your pelvis)? No To what degree would you describe your average stomach or abdominal pain as sharp? Mild What is the pattern of your stomach or abdominal pain that comes and goes? Moderate and does not vary much Does sitting up or bringing your knees to the chest relieve the abdominal pain? No Did you have any accidents or trauma to the abdomen with 24 hours of the symptoms beginning? No As part of your current illness, have you had a problem with nausea or vomiting? Yes Have you had a problem with nausea in the past week including today? Yes As part of your current illness, have you vomited? No Have you had a fever in the past week? Don't know As part of your current illness, have you felt hot or feverish? Yes Have you measured your temperature? No Are you , or is there a possibility that you could be ? No Are you currently ? No When was the first day of your last menstrual cycle? More than 1 year ago In the past month, have you had an unusual discharge or drainage from your vagina? Yes Are you having pain or burning when you urinate? Yes When you urinate, do you feel a sense of urgency (feeling like you have to go right away)? Yes Have you noticed an increase in the number of times you urinate? Yes Are you currently sexually active or do you have sex? Yes Have you had unprotected intercourse (sex) in the past three months? Yes Are you currently using any form of control? No Do you feel pain during vaginal sex? No The next section of this interview asks about past medical conditions that may be related to your symptoms. OK Have you ever been treated with an antibiotic for a urinary tract infection? Yes How recently were you last treated for a urinary tract infection? Within the past week Do you take antibiotics regularly to prevent recurrent urinary tract infections? Yes How many times have you been treated for urinary tract infections in the last 12 months? Only one Have you had a kidney infection in the last 3 months? No Have you been told that you have any significant reduction in the function of your kidneys? No Have you ever had a problem with kidney stones? No Have you had a urinary procedure or catheterization with the last 2 weeks? No Within the past 3 months have you had any surgery of the kidneys, bladder, or female organs? No Have you been told that you have any abnormalities of your bladder, kidneys, or ureters? Examples might be having only a single kidney, or an abnormality of the tubes that carry urine to your bladder, or polyps in your bladder. No Have you ever been hospitalized? No Some conditions that affect your immunity are diabetes, cancer, kidney or liver disease, HIV, spleenremoval, a transplant, rheumatological disorders (like rheumatoid arthritis or lupus), and certain treatments like taking steroids (cortisone or prednisone) or chemotherapy. Do you have any conditions or take any treatments that affect your immunity? No Where do you live? House Good work. Now we will ask you questions about symptoms that could be important concerns with certain treatment options. OK Have you taken a sulfa antibiotics, sulfonamide, sulfamethoxazole and trimethoprim (Bactrim or Septra) in the last 3 months? Yes Are you allergic to sulfa or sulfonamide drugs? No Do you have an allergy to nitrofurantoin (Macrobid)? No Have you had recurring vaginal yeast infections related to taking antibiotics? No Examples of blood thinners are aspirin, dipyridamole (Persantin), warfarin (Coumadin), clopidogrel (Plavix), ticlopidine (Ticlid), rivaroxaban (Xarelto), apixaban (Eliquis), dabigatran (Pradaxa), and ticagrelor (Brilinta). Describe your use of blood thinning medications for anticoagulation. Not Sure Are you currently taking digoxin (Lanoxin), warfarin (Coumadin), phenytoin (Dilantin), or oral anti-fungal medications (azoles including clotrimazole, fluconazole, itraconazole)? No Pharmacy Information: Patient Patient Location: [place] Pharmacy Name: [facility] Pharmacy Location and City: [address] [place] [address] Pharmacy Zip Code: [id number] Electronically Signed By: DULCE MARIA URABNO APRN, CNP On: 10/16/2016 05:56 PM Source: [facility] POWER[facility] Document Id: [id number] RSHED COORDINATOR documented in this encounter Plan of Treatment Not on filedocumented as of this encounter Visit Diagnoses Not on filedocumented in this encounter Additional Health Concerns Assessment Noted Time PHQ-9 Depression Total Score: 8 06/12/2016 10:45 AM CD T documented as of this encounter
--- OUTSIDE RECORDS SUMMARY | 2022-04-10 15:01 | XMS_ITS | Encounter Summary ---
:1980 Author Organization [facility] Address [address] [place] [address] Care Team Providers Name Role Phone Unavailable Primary Care Provider Unavailable Encounter Details Date Type Department Care Team Description 02/08/2015 Hospital Encounter HX [facility] Akhil Meza P.A.-C. [address] [place] [address] (Wo rk) [...] do you attend religion or Never 2021 orthodoxy services? 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 documented as of this encounter Last Filed Vital Signs Vital Sign Reading Time Taken Comments Blood Pressure 120/90 02/08/2015 11:10 AM CDT Pulse 68 02/08/2015 11:02 AM CDT Temperature - - Respiratory Rate 16 02/08/2015 11:02 AM CDT Oxygen Saturation - - Inhaled Oxygen Concentration - - Weight 89.9 kg (198 lb 3.1 oz) 02/08/2015 11:02 AM CDT Height 165 cm (5' 4.96) 02/08/2015 11:10 AM CDT Body Mass Index 33.02 02/08/2015 11:02 AM CDT documented in this encounter Medications at Time of Discharge Medication Sig Dispensed Refills Start Date End Date promethazine (PHENERGAN) Take 25 mg by mouth 0 25 mg tablet as needed for nausea. calcium Take 1 tablet by 0 07/13/2013 10/07/19 22 carbonate-vitamin D3 500 mouth daily. mg(1,250mg) -400 unit tablet syringe, disposable, 1 1 Device by not 0 07/13/20 13 04/04/2020 mL syringe applicable route. documented as of this encounter Progress Notes Oseas Meza P.A.-C. - 02/08/2015 10:44 AM CDT [id number] CHIEF COMPLAINT/REASON FOR VISIT Concern about hypoglycemia. HISTORY OF PRESENT ILLNESS Mukul is a 34-year-old female, who comes in today with concerns about hypoglycemia. She says that frequently she will have episodes where she feels lightheaded and dizzy and she will eat something and then feel better shortly thereafter. She has had a couple of occasions when she has experienced this and she has checked her blood sugar and found it to be in the low 50s. This is concerning for her andshe is concerned about hypoglycemia. She does have a father with type 2 diabetes. Mukul also has a history of bariatric surgery. She has had a fairly significant caffeine intake. She drinks 4 monster energy drinks on a daily basis. She also is concerned about an irritation inside her nose today she wants me to look at. VITAL SIGNS Noted in the electronic medical record. PHYSICAL EXAMINATION GENERAL: She appears in no acute distress. HEART: Regular rate and rhythm. No murmurs. LUNGS: Clear to auscultation. ABDOMEN: Soft and nontender to palpation. NECK: No lymphadenopathy. No thyroid masses. Nares show no masses. There was a bit of an irritation inside of her left nostril, which seemed to be the area of irritation today. IMPRESSION/REPORT/PLAN Hypoglycemia. We had a long discussion about this today and we talked about treatment options. I think there is a good chance her caffeine intake might be irritating this and I talked about trying to discontinue this. She says that these present symptoms have been present even before she started her higher caffeine intake. Nonetheless, I would like her to try to discontinue this. I am going to check a metabolic panel, hemoglobin A1c, as well as a C-peptide today. Given the fact she does have bariatric surgery, this may complicate this and I will would like her to be further evaluated by Endocrinology to get a second opinion on this. She is in agreement with this plan. We will set her up to see Endocrinology in [place]. Any further questions or problems, she will let us know. I also did write for her and have a blood sugar monitor and I will have her check these when she is symptomatic and keeptrack of them for her appointment in [place]. Oseas Meza PA-C/caitlyn Electronically Signed By: OSEAS MEZA PA-C On: 02/08/2015 03:29 PM Source: [facility] MHSDOLBEYNONRADSYS Document Id: [id number] documented in this encounter Nursing Notes Cristin Eugene - 02/07/2015 1:38 PM CDT No Show Patient failed appointment with Dr. Grady on 02-07-15. Electronically Signed By: CRISTIN EUGENE On: 02/07/2015 01:38 PM Source: [facility] POWERCHART Document Id: [id number] documented in this encounter Miscellaneous Notes Miscellaneous - Oseas Meza P.A.-C. - 02/12/2015 9:37 AM CDT Normal Results Letter 12 February 2015 [address] [facility] [id number] Dear MUKUL REID, I am pleased to report that your results from the following diagnostic test(s) are normal. Please follow up with us as we discussed during your visit or sooner if you have any concerns. If you have questions or concerns, please do not hesitate to call our office. Result Name Current Result Previous Result Normal Range Sodium Lvl (mmol/L) 141 02/08/2015 143 10/27/2014 135 - 145 Potassium Lvl (mmol/L) 4.4 02/08/2015 4.0 10/27/2014 3.6 - 5.2 Chloride (mmol/L) 102 02/08/2015 102 10/27/2014 98 - 107 CO2 (mmol/L) 29 02/08/2015 25 10/27/2014 22 - 29 Alkaline Phosphatase (unit/L) 60 02/08/2015 77 10/27/2014 37 - 98 Glucose Fasting (mg/dL) 94 02/08/2015 (H) 105 10/27/2014 70 - 99 Creatinine (mg/dL) 0.6 02/08/2015 (L) 0.6 10/27/2014 0.6 - 1.1 EGFR (MDRD) (mL/min/1.73m2) >60 02/08/2015 >60 10/27/2014 >=60 - EGFR (MDRD) (mL/min/1.73m2) >60 02/08/2015 >60 10/27/2014 >=60 - BUN (mg/dL) 8 02/08/2015 8 10/27/2014 6 - 21 Calcium Lvl (mg/dL) 9.5 02/08/2015 10.1 10/27/2014 8.0 - 10.3 Protein Total (G/DL) (L) 6.2 02/08/2015 7.0 10/27/2014 6.3 - 7.9 Albumin Lvl (G/DL) 4.3 02/08/2015 4.1 10/27/2014 3.2 - 5.2 AST (unit/L) 16 02/08/2015 20 10/27/2014 8 - 43 ALT (unit/L) 12 02/08/2015 28 10/27/2014 7 - 45 Bili Total (mg/dL) 0.4 02/08/2015 0.4 10/27/2014 0.1 - 1.0 4558Hgb A1c (% A1C) 5.2 02/08/2015 - <=5.6 C-Peptid pmol/L-Mcintosh (ng/mL) 2.2 02/08/2015 1.1 - 4.4 - Sincerely, OSEAS MEZA [address] [place] [address] Electronic Signature Electronically Signed By: OSEAS MEZA PA-C On: 12 February 2015 This document has images extracted. Source: [facility] POWERCHART Document Id: [id number] Electronically signed by Conversion [facility] [employer] [employer] [id number] at 01/04/2017 7:00 PM CDT Miscellaneous - Oseas Meza P.A.-C. - 02/08/2015 12:11 PM CDT Ambulatory Patient Summary [facility] [address] [place], [place] [id number] Visit Information Name: MUKUL REID [facility] Number: [id number] Current Date: 02/08/2015 12:11:11 Physicians Attending Provider: OSEAS MEZA PA-C Primary Care Provider: OSESA MEZA PA-C MUKUL REID has been given the [...] Oral, once a day (in the morning) *busPIRone (busPIRone 30 mg oral tablet) 1 Tablet(s), [...] release) 1 cap, Oral, once a day * You have let us know that you are not taking this medication as listed. Please talk with your primary care provider or the health care provider who prescribed the medication as soon as possible. Stop Taking the Following Medications: Medication list as of 02-08-15 12:11 Attention: If you have any medications at home that are not on this list, DO NOT take them until youcontact your provider for clarification. Give a copy of your medication list to your primary care provider. Update your medication list any time medications or doses are changed and carry your medication list at all times in case of emergency. Electronically Signed By: OSEAS MEZA PA-C Signed On:08-FEB-2015 12:11:02 Your Allergies & Intolerances Substance Reaction Symptoms [...] you dont have one. Go to [email or web address] and click on Create Your Account. Then, follow the directions to complete the online form. Youll be asked for your [facility] number which you can find at the top of this document. Your Goals/Additional instructions: Source: [facility] POWERCHART Document Id: [id number] Miscellaneous - Oseas Meza P.A.-C. - 02/08/2015 12:11 PM CDT Ambulatory Discharge Medication List [address] [id number] Visit Information Name: MUKUL REID [facility] Number: [id number] Visit Date: 02/08/2015 12:11:09 Attending Provider: OSEAS MEZA PA-C Primary Care Provider: OSEAS MEZA PA-C MUKUL REID has been given the [...] Oral, once a day (in the morning) *busPIRone (busPIRone 30 mg oral tablet) 1 Tablet(s), [...] release) 1 cap, Oral, once a day * You have let us know that you are not taking this medication as listed. Please talk with your primary care provider or the health care provider who prescribed the medication as soon as possible. Stop Taking the Following Medications: Medication list as of 02-08-15 12:11 Attention: If you have any medications at home that are not on this list, DO NOT take them until youcontact your provider for clarification. Give a copy of your medication list to your primary care provider. Update your medication list any time medications or doses are changed and carry your medication list at all times in case of emergency. Electronically Signed By: OSEAS MEZA PA-C Signed On:08-FEB-2015 12:11:02 Additional Information: Source: [facility] Check-Cap Document Id: [id number] Alex - Collin Anthony L.P.N. - 02/08/2015 11:10 AM CDT Ambulatory Vitals Height Weight Ambulatory Vitals Height Weight Entered On: 02/08/2015 11:10 CDT Performed On: 02/08/2015 11:10 CDT by COLLIN ANTHONY LPN Vitals/Ht/Wt Systolic Blood Pressure : 120 mmHg Diastolic Blood Pressure : 90 mmHg (HI) NIBP Mean : 100 mmHg BP Location : Left upper extremity Blood Pressure Cuff Size : Large Height : 165 cm(Converted to: 5 ft 5 inch(es), 65 inch(es)) COLLIN ANTHONY LPN - 02/08/2015 11:10 CDT Source: [facility] Check-Cap Document Id: [id number] CDT!8 Alex - Collin Anthony L.P.N. - 02/08/2015 11:02 AM CDT Adult [employer] Intake/History Adult [employer] Intake/History Entered On: 02/08/2015 11:09 CDT Performed On: 02/08/2015 11:02 CDT by COLLIN ANTHONY LPN Intake Chief Complaint : states here today to check for hypoglycemia, is fasting today for blood work if needed Onset of Symptoms : states almost a year LMP Date : Hysterectomy Temperature Core : 37.8 DegC(Converted to: 100.0 DegF) Peripheral Pulse Rate : 68 /min Respiratory Rate : 16 /min Systolic Blood Pressure : 124 mmHg Diastolic Blood Pressure : 90 mmHg (HI) NIBP Mean : 101 mmHg BP Location : Left upper extremity Blood Pressure Cuff Size : Large Height : 165 cm(Converted to: 5 ft 5 inch(es), 65 inch(es)) Actual Weight : 89.9 kg(Converted to: 198 lb 3 oz) Weight Source : Standing scale Dosing Weight Clinic : 89.9 kg Clinic BSA : 2.03 Body Mass Index : 33.02 kg/m2 COLLIN ANTHONY LPN - 02/08/2015 11:02 CDT General Info Information Given By : Patient, Spouse Preferred Communication Mode : Verbal Languages : Mohawk Is Patient Female and 13-50 no hysterectomy : No COLLIN ANTHONY LPN 02/08/2015 11:02 CDT Subjective Pain Symptoms : Yes COLLIN ANTHONY LPN 02/08/2015 11:02 CDT Pain Scale Pain Scale Verbal 0-10 : Open COLLIN ANTHONY LPN 02/08/2015 11:02 CDT Pain Pain Assessment Grid Pain 1 Location : Knee Laterality : Bilateral Intensity : 6 Duration : x7 months COLLIN ANTHONY LPN 02/08/2015 11:02 CDT Dependent Habits Tobacco Use/Currently Using : No Tobacco Use/Last 12 months : No Tobacco Use/Advised to Quit : No Exposure to Tobacco Smoke : Other: former Smoking Status : Former smoker COLLIN ANTHONY LPN - 02/08/2015 11:02 CDT Tobacco Use Grid Last Use : quit at age 17 COLLIN ANTHONY LPN 02/08/2015 11:02 CDT Alcohol Use : No COLLIN ANTHONY LPN 02/08/2015 11:02 CDT Caffeine Use Grid Caffeine Use : Current Type : Chocolate, Coffee, Soft drinks Frequency : Daily Amount : 1 cup, monsters 4 per day Last Use : 02/07/15 COLLIN ANTHONY DATA ANALYST REPORT WRITER - 02/08/2015 11:02 CDT Recreational Drug Use Grid Drug Use : None COLLIN ANTHONY LPN - 02/08/2015 11:02 CDT Source: [facility] POWERCHART Document Id: [id number] CDT!55 documented in this encounter Plan of Treatment Not on filedocumented as of this encounter Procedures Procedure Name Priority Date/Time Associated Comments Diagnosis C-PEPTIDE, S Routine 02/08/2015 11:35 Results for this AM CDT procedure are i n the results section. HEMOGLOBIN A1C, B Routine 02/08/2015 11:35 Result s for this AM CDT procedure are i n the results section. COMPREHENSIVE Routine 02/08/2015 11:35 Results fo r this METABOLIC PANEL, S/P AM CDT procedu re are in the results section. documented in this encounter Results C-Peptide (02/08/2015 11:35 AM CDT) athologist Signature C-Peptide 2.2 1.1 - 4.4 POWERCHART NGML Comment: Test Performed by: [place] [id number] [employer] Aide: Alfonzo Nieves II, M.D., Ph.D. Specimen (Source) Anatomical Collection Method Collection Time Re ceived Time Location / / Volume Laterality Blood 02/08/2015 11:35 AM CDT Oseas Meza P.A.-C. LAB BLOOD ADD-ON Performing Organization Address City/State/ZIP Code Phon e Number POWERCHART Hemoglobin A1c (02/08/2015 11:35 AM CDT) athologist Signature Hemoglobin A1c, 5.2 <=5.6 A1C POWERCHART B Specimen (Source) Anatomical Collection Method Collection Time Re ceived Time Location / / Volume Laterality Blood 02/08/2015 11:35 AM CDT Oseas Meza P.A.-C. LAB BLOOD ADD-ON Performing Organization Address City/State/ZIP Code Phon e Number POWERCHART (ABNORMAL) CMP (Comprehensive Metabolic Panel) (02/08/2015 11:35 AM CDT) [facility] gist Method Time Signature Alkaline 60 37 - 98 POWERCHART Phosphatase, S UNITL Alanine 12 7 - 45 POWERCHART Amniotransferase, LD UNITL Aspartate 16 8 - 43 POWERCHART Aminotransferase UNITL (AST), S Bilirubin, Total, S 0.4 0.1 - 1.0 POWERCHART MGDL BUN (Blood Urea 8 6 - 21 POWERCHART Nitrogen), S MGDL Chloride, S 102 98 - 107 POWERCHART MMOLL CO2 Total 29 22 - 29 POWERCHART MMOLL Creatinine 0.6 0.6 - 1.1 POWERCHART MGDL Glucose, Fasting, S 94 70 - 99 POWERCHART MGDL Total Protein, S 6.2 (L) 6.3 - 7.9 POWERCHART GDL Calcium, Total, S 9.5 8.0 - POWERCHART 10.3 MGDL Sodium, S 141 135 - 145 POWERCHART MMOLL Potassium, S 4.4 3.6 - 5.2 POWERCHART MMOLL Albumin, S 4.3 3.2 - 5.2 POWERCHART GDL HXeGFR (MDRD) >60 >=60 POWERCHART [id number] 2 eGFR Black/ >60 >=60 POWERCHART Jamaican [id number] Specimen (Source) Anatomical Collection Method Collection Time Re ceived Time Location / / Volume Laterality Blood 02/08/2015 11:35 AM CDT Oseas Meza P.A.-C. LAB BLOOD ADD-ON Performing Organization Address City/State/ZIP Code Phon e Number POWERCHART documented in this encounter Visit Diagnoses Not on filedocumented in this encounter
--- OUTSIDE RECORDS SUMMARY | 2022-04-10 15:01 | XMS_ITS | Encounter Summary ---
:1980 Author Organization [facility] Address [address] [place] [address] Care Team Providers Name Role Phone Unavailable Primary Care Provider Unavailable Encounter Details Date Type Department Care Team Description 01/24/2016 Hospital Encounter HX [facility] Akhil Wilson P.A.-C. [address] [place] [address] (Wo rk) Social History Tobacco [...] do you attend christianity or Never 2021 latter-day services? 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 ondansetron [...] encounter Progress Notes Oseas Wilson P.A.-C. - 01/24/2016 9:45 AM CDT [id number] CHIEF COMPLAINT/REASON FOR VISIT Multiple issues. HISTORY OF PRESENT ILLNESS Gricelda is a 35-year-old female who has a longstanding history of hypothyroidism. This has been supplemented and she came in and had her TSH drawn and comes in to go over the results. She also has chronic knee pain and she in the past has had knee braces that she got from Dr. Grady but she has lost weight, now her braces do not fit any more. She is wondering if she can get a new prescription for these.She also is wondering if she can get another refill of her tramadol because of her chronic pain in her knees. She also had a seizure and is on Keppra. She says her depression is a little bit worse because of her inability to drive from the seizure. She is going to follow up with Dr. Morales and she is anxious to know when she will be able to go back to driving. She has an appointment in a couple weeks with him. She is continuing on the Lexapro and the buspirone for her anxiety and depression. VITAL SIGNS Noted in the EMR. No further physical examination was done today. IMPRESSION/REPORT/PLAN 1. Hypothyroidism. Her TSH is well within the normal range. I am going to renew her Synthroid for a year. 2. Bilateral knee pain. I gave her prescription for bilateral knee compression sleeves with a metal stays in it. 3. Seizure disorder. She is going to follow up as scheduled with Dr. Morales and this will be coming up in a couple weeks. He will help her to decide what should be done with the Keppra and her driving restrictions. 4. Depression and anxiety. I think when she is able to see Dr. Morales, hopefully this will be under better control. For now, she feels like the Lexapro and the buspirone is doing a good job. If there isany further questions or problems, she will let us know. Total time spent today with Gricelda was 25 minutes, of which 20 of it was in [id number] coordinationof care and counseling. Oseas Wilson PA-C/caitlyn Electronically Signed By: OSEAS WILSON PA-C On: 01/25/2016 08:39 AM Source: [facility] MHSDOLBEYNONRADSYS Document Id: [id number] documented in this encounter Miscellaneous Notes Miscellaneous - Kenia Klein R.N. - 03/25/2016 12:07 PM CDT imitrex Document Contains Addenda Addendum by OSEAS WILSON PA-C on March 26, 2016 09:46:56 CDT From: OSEAS WILSON PA-C To: [place] Medication Refill; Sent: 03/26/2016 09:46:56 CDT Subject: RE: imitrex done From: KENIA KLEIN RN ( [place] Medication Refill) To: OSEAS WILSON PA-C; Sent: 03/25/2016 12:07:39 CDT Subject: imitrex Caller is: ( ) Patient ( ) Mother ( ) Father ( ) Spouse ( ) Daughter ( ) Son ( shanita/clem ) Pharmacy ( ) Other: Provider: [facility]: Name of Medications Needing Refill: Imitrex 100 mg Last Refill Date: 03/09/2016 qty 9 Additional Information: Saw Neurology on 02/05/16...1 tab po as directed.... Last / Future Appointment: 01/24/16 Disposition: ( x ) Send to Pharmacy ( ) Call to Pharmacy ( ) Patient will pick up worker Script ( ) Mail Rxto Patient Source: [facility] POWERCHART Document Id: [id number] Electronically signed by Ruby [facility] Metal Polisher [id number] at 01/03/2017 6:44 PM CDT Miscellaneous - Kenia Klein R.N. - 03/10/2016 9:20 AM CDT levaquin Document Contains Addenda Addendum by OSEAS WILSON PA-C on March 12, 2016 11:06:31 CDT From: OSEAS WILSON PA-C To: Cardiology Nurse; Sent: 03/12/2016 11:06:31 CDT Subject: RE: levaquin She needs to be seen if she needs Levaquin Addendum by KENIA KLEIN RN on March 12, 2016 09:04:15 CDT From: KENIA KLEIN RN ( Cardiology Nurse) To: [place] Medication Refill; Sent: 03/12/2016 09:04:15 CDT Subject: FW: levaquin Addendum by BETO GUZMAN MD on March 11, 2016 17:40:46 CDT From: BETO GUZMAN MD To: Cardiology Nurse; Sent: 03/11/2016 17:40:46 CDT Subject: RE: levaquin right. I won't fill antibiotic if I don't know what it's about. From: KENIA KLEIN RN ( Cardiology Nurse) To: OSEAS WILSON PA-C; Cc: BETO GUZMAN MD; Sent: 03/10/2016 09:20:31 CDT Subject: levaquin Caller is: ( ) Patient ( ) Mother ( ) Father ( ) Spouse ( ) Daughter ( ) Son ( shanita/clem ) Pharmacy ( ) Other: Provider: [facility]: Name of Medications Needing Refill: levofloxacin 500 mg Last Refill Date: 12/27/15 qty 10 Additional Information: 1 tab po daily for 10 days...Called pt to verify why she needs refill of this med...was only able to leave a message will await her response.... Last / Future Appointment: 01/24/16 Disposition: ( x ) Send to Pharmacy ( ) Call to Pharmacy ( ) Patient will pick up worker Script ( ) Mail Rxto Patient Source: [facility] POWERCHART Document Id: [id number] Electronically signed by Ruby, [facility] Metal Polisher [id number] at 01/03/2017 6:44 PM CDT Telephone Encounter - Sakina Schneider L.P.N. - 02/15/2016 11:53 AM CDT *Phone Message From: SAKINA SCHNEIDER LPN To: OSEAS WILSON PA-C; Sent: 02/15/2016 11:53:04 CDT Subject: *Phone Message Caller is: ( ) Patient ( ) Mother ( ) Father ( ) Spouse ( ) Daughter ( ) Son ( ) Pharmacy ( ) Other: Physician: Patient MRN #: Reason for Call: Gricelda would like to try gabapentin instead of the tramadol please Message: Advice/Action: Source used: ( ) Verbalizes [...] back cell phone number ( ) Source: [facility] POWERCHART Document Id: [id number] Electronically signed by Conversion, [facility] Metal Polisher [id number] at 01/03/2017 6:44 PM CDT Telephone Encounter - Conversion, Historical Provider Ser - 02/12/2016 3:15 PM CDT *Phone Message Document Contains Addenda Addendum by SAKINA SCHNEIDER LPN on February 13, 2016 14:48:16 CDT left msg to return my call Addendum by RAYMON ZARAGOZA on February 13, 2016 12:57:12 CDT From: RAYMON ZARAGOZA (RAMON Wilson Nurse) To: RAMON Wilson Nurse; Sent: 02/13/2016 12:57:12 CDT Subject: FW: *Phone Message Patient tried calling because she has not heard back. She doesn't want to have to make two trips to [place] and she is coming in for something else. Please contact her when this is completed. Addendum by DEANN HAYES LPN on February 12, 2016 16:37:53 CDT From: DEANN HAYES LPN ( Family Medicine Nurse) To: RMAON Wilson Nurse; Sent: 02/12/2016 16:37:53 CDT Subject: FW: *Phone Message Notified that you are out of the office today, but will be back in tomorrow. From: ROLDAN NGUYEN ( [facility] Nurse) To: Family Medicine Nurse; Sent: 02/12/2016 15:15:08 CDT Subject: *Phone Message Caller is: ( ) Patient ( ) Mother ( ) Father ( ) Spouse ( ) Daughter ( ) Son ( ) Pharmacy ( ) Other: Physician: oseas Patient MRN #: Reason for Call: Message: tramadol needs to be changed per neuro Dr linda Madison back at [phone] Advice/Action: Source used: ( ) Verbalizes understanding [...] back cell phone number ( ) Source: [facility] POWERCHART Document Id: [id number] Miscellaneous - Oseas Wilson P.A.-C. - 01/24/2016 11:52 AM CDT Ambulatory Patient Summary [address] [id number] Visit Information Name: JEANETTEGRICELDA [facility] Number: [id number] Current Date: 01/24/2016 11:52:18 Physicians Attending Provider: OSEAS WILSON PA-C Primary [...] once a day fluticasone nasal (Flonase) 1 [place](s), Nasal, once a day levETIRAcetam (Keppra 500 mg oral tablet) 1 Tablet(s), Oral, two times a day levothyroxine (levothyroxine 75 mcg (0.075 mg) oral tablet) 75 mcg, Oral, once a day Routed to [address] [phone] multivitamin, ( Multivitamins with Vitamin B Complex, Vitamin C, Minerals and L-Methylfolate oral capsule) 1 cap, Oral, once a day ondansetron (ondansetron 8 mg oral tablet) 1 Tablet(s), Oral, three times a day as needed SUMAtriptan (SUMAtriptan 100 mg oral tablet) 1 Tablet(s), Oral, once listed in doc by history traMADol (traMADol 50 mg oral tablet) 1 Tablet(s), Oral, every 6 hours as needed for Pain Routed to [employer] verapamil (verapamil 120 mg/24 hours oral capsule, [...] the Following Medications: Medication list as of 01-24-16 11:52 Attention: If you have any medications [...] Electronically Signed By: OSEAS WILSON PA-C Signed On:24-JAN-2016 11:52:15 Your Allergies & Intolerances Substance Reaction Symptoms [...] Your Upcoming Appointments Date Time Location Provider 02/05/2016 13:45 [facility] Sade FLORES, Donis Mccullough Attention: Contact your local Clinic if further [...] if you dont have one. Go to [email or web address] and click on Create Your Account. Then, follow the directions to complete the online form. Youll be asked for your [facility] number which you can find at the top of this document. Your Goals/Additional instructions: Source: [facility] POWERCHART Document Id: [id number] Miscellaneous - Oseas Wilson P.A.-C. - 01/24/2016 11:52 AM CDT Ambulatory Discharge Medication List [address] [id number] Visit Information Name: JEANETTEGRICELDA Horvath [facility] Number: [id number] Visit Date: 01/24/2016 11:52:17 Attending Provider: OSEAS WILSON PA-C Primary Care [...] once a day fluticasone nasal (Flonase) 1 [place](s), Nasal, once a day levETIRAcetam (Keppra 500 mg oral tablet) 1 Tablet(s), Oral, two times a day levothyroxine (levothyroxine 75 mcg (0.075 mg) oral tablet) 75 mcg, Oral, once a day Routed to [facility] [address] [place], [place] [id number] multivitamin, ( Multivitamins with Vitamin B Complex, Vitamin C, Minerals and L-Methylfolate oral capsule) 1 cap, Oral, once a day ondansetron (ondansetron 8 mg oral tablet) 1 Tablet(s), Oral, three times a day as needed SUMAtriptan (SUMAtriptan 100 mg oral tablet) 1 Tablet(s), Oral, once listed in doc by history traMADol (traMADol 50 mg oral tablet) 1 Tablet(s), Oral, every 6 hours as needed for Pain Routed to [facility] verapamil (verapamil 120 mg/24 hours oral capsule, [...] the Following Medications: Medication list as of 01-24-16 11:52 Attention: If you have any medications [...] Electronically Signed By: OSEAS WILSON PA-C Signed On:24-JAN-2016 11:52:15 Additional Information: Source: [facility] POWERCHART Document Id: [id number] Miscellaneous - Madeline Swartz, C.M.A. - 01/24/2016 11:47 AM CDT BANDAR-7 BANDAR-7 Entered On: 01/24/2016 11:48 CDT Performed On: 01/24/2016 11:47 CDT by MADELINE SWARTZ CMA GAD7 GAD7 Feeling nervous : Not at all GAD7 Not able to control worry : Not at all GAD7 Worrying too much : Not at all GAD7 Trouble relaxing : Not at all GAD7 Being so restless : Not at all GAD7 Becoming easily annoyed : More than half the days GAD7 Feeling afraid : Several days GAD7 Total Score : 3 Problems make work, home, or dealing with others : Somewhat difficult MADELINE SWARTZ [facility] - 01/24/2016 11:47 CDT Source: [facility] [employer] Document Id: [id number] CDT!11 Miscellaneous - Madeline Swartz CRafalMMaki - 01/24/2016 9:52 AM CDT 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 Intake/History 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 Intake/History Entered On: 01/24/2016 9:58 CDT Performed On: 01/24/2016 9:52 CDT by MADELINE SWARTZ [facility] Intake Chief Complaint : f/u hypothyroid, seizure, anxiety Temperature Core : 36.7 DegC(Converted to: 98.1 DegF) Peripheral Pulse Rate : 80 /min Respiratory Rate : 16 /min Heart Rhythm : Regular Systolic Blood Pressure : 112 mmHg Diastolic Blood Pressure : 74 mmHg NIBP Mean : 87 mmHg BP Location : Left upper extremity Blood Pressure Cuff Size : Large Actual Weight : 86.7 kg(Converted to: 191 lb 2 oz) Weight Source : Standing scale Dosing Weight Clinic : 86.7 kg MADLEINE SWARTZ [facility] - 01/24/2016 9:52 CDT General Info Information Given By : Patient Languages : Russian Is Patient Female and 13-50 no hysterectomy : No MADELINE SWARTZ [facility] 01/24/2016 9:52 CDT Subjective Pain Symptoms : No MADELINE SWARTZ [facility] - 01/24/2016 9:52 CDT Dependent Habits Exposure to Tobacco Smoke : Other: former Smoking Status : Former smoker Tobacco 2A : Yes Tobacco Use/Currently Using : No Tobacco Use/Last 30 Days : No Tobacco Use/Last 12 months : No Tobacco Last Use/Year : 1997 Alcohol Use : No MADELINE SWARTZ [facility] 01/24/2016 9:52 CDT Caffeine Use Grid Caffeine Use : Current Type : Chocolate, Coffee, Soft drinks Frequency : Daily Amount : 1 cup, monsters 4 per day Last Use : 12/27/2015 MADELINE SWARTZ [facility] - 01/24/2016 9:52 CDT Recreational Drug Use Grid Drug Use : None MADELINE SWARTZ DATA ADMINISTRATOR - 01/24/2016 9:52 CDT Source: [facility] [employer] Document Id: [id number] CDT!40 documented in this encounter Plan of Treatment Not on filedocumented as of this encounter Visit Diagnoses Not on filedocumented in this encounter Additional Health Concerns Assessment Noted Time PHQ-9 Depression Total Score: 8 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
--- OUTSIDE RECORDS SUMMARY | 2022-04-10 15:02 | XMS_ITS | Encounter Summary ---
:1980 Author Organization [facility] Address [address] [place] [address] Care Team Providers Name Role Phone Unavailable Primary Care Provider Unavailable Encounter Details Date Type Department Care Team Description 12/07/2014 Hospital Encounter HX [facility] Akhil Wilson P.A.-C. [address] [place] [address] (Wo rk) Social History Tobacco [...] do you attend restorationism or Never 2021 alevism services? 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 - 12/07/2014 10:02 AM CDT [id number] CHIEF COMPLAINT/REASON FOR VISIT Knee pain. HISTORY OF PRESENT ILLNESS Mukul is a 34-year-old female with some chronic left knee pain that has been aggravated and particularly worsened over the last 3 weeks. She has not had any specific injury. I did an MRI of this that did show some chondromalacia and some possible fissuring of the mid patella. She comes back today to discuss these results. She says her pain is not any better. There is a small Norris's cyst. This apparently has been seen in the past as well. We originally made an appointment to follow up with Dr. Rodriguezing this but that is not for a couple more weeks. PHYSICAL EXAMINATION VITAL SIGNS: Noted in the EMR. GENERAL: She appears in no acute distress. SKIN: On examination of her left knee there is no erythema or swelling. She describes a generalized tenderness to palpation of the knee. She says her pain is more in the posterior aspect. She says it has been locking up on her but there was no notable meniscus injury. IMPRESSION/REPORT/PLAN Left knee pain. We talked about potential options at this point, including seeing Orthopedics or waiting for the Dr. Grady appointment in a couple weeks. Also we talked about possibly injecting it witha steroid and some lidocaine today and this is the option that she chose. We discussed risks and benefits and obtained informed consent. After the left knee was cleansed thoroughly with Betadine I did use some ethyl chloride to anesthetize the injection site and injected 4 mL of lidocaine and 1 mL of 40 mg of triamcinolone using a superolateral approach. I then covered the today with a Band-Aid. I discussed what to expect and over the next day or so hopefully this will feel better she will notify us. We will have her follow up as scheduled with Dr. Grady. If her knee pain is completely resolved shemay not need further treatment. If not, Physical Therapy I think would be a good option for chondromalacia or if Dr. Grady thinks it is necessary she could see Orthopedics. Will await for his opinion when he follows up with her in a couple weeks. If there are any questions or any problems in the meantime, she will let us know. Oseas Wilson PA-C/caitlyn Electronically Signed By: OSEAS WILSON PA-C On: 12/07/2014 02:23 PM Source: [facility] MHSDOLBEYNONRADSYS Document Id: [id number] documented in this encounter Miscellaneous Notes Miscellaneous - Oseas Wilson P.A.-C. - 12/07/2014 11:39 AM CDT Ambulatory Patient Summary [address] [id number] Visit Information Name: MUKUL REID [facility] Number: [id number] Current Date: 12/07/2014 11:39:04 Physicians Attending Provider: OSEAS WILSON PA-C Primary [...] the Following Medications: Medication list as of 12-07-14 11:39 Attention: If you have any medications at [...] Electronically Signed By: OSEAS WILSON PA-C Signed On:07-DEC-2014 11:38:58 Your Allergies & Intolerances Substance Reaction Symptoms Category Comments Keflex Drug Your Problem List Problem Status Onset Comments Degenerative Joint Disease Multiple Sites Active Gastric Bypass S/P Active Disorder Attention Deficit Hyperactive (ADHD) Active Depression Anxiety Active Hypothyroidism NOS Active Migraine Headache (AGUILERA) NOS Active Pain Back Lumbar Active Your Upcoming Appointments Date Time Location Provider 12/25/2014 14:30 [facility] Miguel A FLORES, Kenrick Rosas Attention: Contact your local Clinic if further appointment detail needed. Your Goals/Additional instructions: Source: [facility] POWERCHART Document Id: [id number] Miscellaneous - Oseas Wilson P.A.-C. - 12/07/2014 11:39 AM CDT Ambulatory Discharge Medication List [address] [id number] Visit Information Name: MUKUL REID [facility] Number: [id number] Visit Date: 12/07/2014 11:39:02 Attending Provider: OSEAS WILSON PA-C Primary Care [...] the Following Medications: Medication list as of 12-07-14 11:39 Attention: If you have any medications at [...] Electronically Signed By: OSEAS WILSON PA-C Signed On:07-DEC-2014 11:38:58 Additional Information: Source: [facility] POWERCHART Document Id: [id number] Miscellaneous - Collin Anthony LRafalP.N. - 12/07/2014 10:05 AM CDT Adult Compliance Counsel Intake/History Adult Compliance Counsel Intake/History Entered On: 12/07/2014 10:09 CDT Performed On: 12/07/2014 10:05 CDT by COLLIN ANTHONY LPN Intake Chief Complaint : go over results of L knee MRI LMP Date : Hysterectomy Temperature Core : 37.0 DegC(Converted to: 98.6 DegF) Peripheral Pulse Rate : 80 /min Respiratory Rate : 16 /min Systolic Blood Pressure : 120 mmHg Diastolic Blood Pressure : 68 mmHg NIBP Mean : 85 mmHg BP Location : Right upper extremity Blood Pressure Cuff Size : Large Height : 165 cm(Converted to: 5 ft 5 inch(es), 65 inch(es)) Actual Weight : 86.9 kg(Converted to: 191 lb 9 oz) Weight Source : Standing scale Dosing Weight Clinic : 86.9 kg Clinic BSA : 2 Body Mass Index : 31.92 kg/m2 COLLIN ANTHONY LPN - 12/07/2014 10:05 CDT General Info Information Given By : Patient, Spouse Preferred Communication Mode : Verbal Languages : Vietnamese Is Patient Female and 13-50 no hysterectomy : No COLLIN ANTHONY LPN - 12/07/2014 10:05 CDT Subjective Pain Symptoms : Yes COLLIN ANTHONY LPN - 12/07/2014 10:05 CDT Pain Scale Pain Scale Verbal 0-10 : Open COLLIN ANTHONY LPN - 12/07/2014 10:05 CDT Pain Pain Assessment Grid Pain 1 Location : Knee Laterality : Left Intensity : 8 Duration : 3 weeks COLLIN ANTHONY LPN - 12/07/2014 10:05 CDT Dependent Habits Tobacco Use/Currently Using : No Tobacco Use/Last 12 months : No Tobacco Use/Advised to Quit : No Exposure to Tobacco Smoke : Other: former Smoking Status : Former smoker Alcohol Use : No COLLIN ANTHONY LPN - 12/07/2014 10:05 CDT Caffeine Use Grid Caffeine Use : Current Type : Chocolate, Coffee, Soft drinks Frequency : Daily Last Use : 12/06/14 COLLIN ANTHONY LPN - 12/07/2014 10:05 CDT Recreational Drug Use Grid Drug Use : None COLLIN ANTHONY LPN - 12/07/2014 10:05 CDT ID Screen Drug Resistant Organism : No Travel Within Last 21 Days : No Contact with someone with Ebola : No COLLIN ANTHONY LPN - 12/07/2014 10:05 CDT Source: [employer] Document Id: [id number] CDT!54 Miscellaneous - Collin Anthony L.P.N. - 12/07/2014 10:00 AM CDT PHQ-9 PHQ-9 Entered On: 12/07/2014 10:35 CDT Performed On: 12/07/2014 10:00 CDT by COLLIN ANTHONY LPN PHQ-9 Little interest or pleasure in doing things : Not at all Feeling down, depressed, or hopeless : Not at all Trouble falling or staying asleep, or sleeping too much : Not at all Feeling tired or having little energy : Not at all Poor appetite or overeating : Not at all Feeling bad about yourself or that you are a failure : Not at all Trouble concentrating on things : Not at all Moving or speaking slowly; restless or fidgety : Not at all Thoughts that you would be better off /hurting self : Not at all PHQ-9 Calculated Score : 0 Problems make work, home, or dealing with others : Not difficult at all COLLIN ANTHONY LPN - 12/07/2014 10:35 CDT Source: [employer] Document Id: [id number] CDT!13 documented in this encounter Plan of Treatment Not on filedocumented as of this encounter Visit Diagnoses Not on filedocumented in this encounter
--- OUTSIDE RECORDS SUMMARY | 2022-04-10 15:02 | XMS_ITS | Encounter Summary ---
:1980 Author Organization [facility] Address [address] [place] [address] Care Team Providers Name Role Phone Unavailable Primary Care Provider Unavailable Encounter Details Date Type Department Care Team Description 07/12/2014 Hospital Encounter HX [facility] Maria C Tamayo, PAT, C.N.P., D. N.P. [address] [place], [place] [address] (Wo rk) Social History Tobacco Use Types [...] do you attend temple or Never 2021 worship services? 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 - 07/12/2014 5:05 PM CST [id number] CHIEF COMPLAINT/REASON FOR VISIT Knee pain. HISTORY OF PRESENT ILLNESS The patient is a 33-year-old female, new to the [facility], for left knee pain. Patient has previously been seen for knee pain and had a previous steroid injection. She states that it was helpful short-term. She has also completed physical therapy previously and it was not helpful. We will work at obtaining her previous x-rays and MRI. Patient also has a history of depression with anxiety, back pain, ADHD, hypothyroidism, migraine headache and status post gastric bypass. She states her lab work is current for these things. She did just recently hurt her back yesterday when transferring a person.She took Tylenol. She denies fever, chills, nausea, vomiting, shortness of breath or chest pain. MEDICATIONS See depart summary. ALLERGIES Reviewed per EMR July 12, 2014. SYSTEMS REVIEW Pertinent positives as noted in HPI. Otherwise, reviewed in its entirety and remainder negative. SOCIAL HISTORY Please see health assessment power form completed July 12, 2014, for complete details. FAMILY HISTORY Updated and reviewed per EMR July 12, 2014. VITAL SIGNS Reviewed per EMR July 12, 2014. PHYSICAL EXAMINATION GENERAL: Well-nourished female in no acute distress. SKIN: Warm, dry and pink. LYMPHATIC: No cervical lymphadenopathy. LUNGS: Clear to auscultation. HEART: Regular rate rhythm. EXTREMITIES: Patient has pain on full extension bilaterally. She has medial joint tenderness of the left knee. No effusion or swelling noted. Patella moves freely. Positive anterior drawer test and negative posterior drawer test. Pain with valgus but not with varus. Patient also has pain on palpation of the left hip. Positive MARIAH test with left hip. No pain with abduction or abduction bilaterally. Negative MARIAH test on the right. MENTAL: Alert and oriented to person, place and time. IMPRESSION/REPORT/PLAN 1. Right knee pain. Will obtain x-ray of her left knee. Given positive exam findings of left hip, will include left hip x-ray as well. Patient will be referred to Dr. Grady for further recommendations and possible injection if indicated. We will also work obtaining her records from the outside provider. 2. Lumbar pain. Patient did injure this yesterday. She will ice it for 20 minutes, 2 to 3 times a day. She was also encouraged to use nonsteroidal anti- inflammatory drug such as Advil 800 mg at least twice a day with food to prevent GI discomfort. Patient was given a limited supply of Edgecomb because she is unable to use Ultram. Patient will follow up as needed. Patient verbalizes understanding and agrees with plan of care. Homer Bauer CNP/caitlyn Electronically Signed By: HOMER BAUER CNP On: 07/17/2014 05:12 PM Source: [facility] MHSDOLBEYNONRADSYS Document Id: [id number] CT SALES CONSULTANT documented in this encounter Miscellaneous Notes Miscellaneous - Homer Tamayo APRN, C.N.P. - 07/13/2014 6:33 PM DIRECT SALES CONSULTANT Ambulatory Patient Summary [address] [id number] Visit Information Name: GRICELDA REID [facility] Number: [id number] Visit Date: 07/13/2014 18:33:46 Attending Provider: HOMER BAUER CNP Primary Care Provider: OSEAS WILSON PA-C [...] 1 Tablet(s), Oral, two times a day calcium carbonate (calcium carbonate 500 mg (200 mg elemental calcium) oral tablet, chewable) 1 Tablet(s), three times a day citalopram (citalopram) 40 mg, Oral, once a day cyanocobalamin (Vitamin B12 1000 mcg/mL injectable solution) Intramuscular, once a month HYDROcodone-acetaminophen (Edgecomb 5 mg-325 mg oral tablet) 1 Tablet(s), Oral, every 6 hours as neededfor Pain x 5 day(s) No more than 4,000mg acetaminophen/24hrs New Routed to [facility] levothyroxine (levothyroxine) 75 mcg, , once a day multivitamin with minerals (Vital-D oral tablet) 2000IU, Oral, once a day multivitamin, ( Plus Iron) 2 Tablet(s), Oral, once a day verapamil (verapamil 120 mg oral tablet) See Instructions 1 tab(s) PO daily Stop Taking the Following Medications: Medication list as of 07-13-14 18:33 Attention: If you have any medications at home that are not on this list, DO NOT take them until youcontact your provider for clarification. Give a copy of your medication list to your primary care provider. Update your medication list any time medications or doses are changed and carry your medication list at all times in case of emergency. Electronically Signed By: HOMER BAUER CNP Signed On:13-JUL-2014 18:33:37 Additional Information: Source: [facility] POWERCHART Document Id: [id number] CT SALES CONSULTANT Miscellaneous - Homer Tamayo APRN CRafalN.P. - 07/13/2014 6:33 PM DIRECT SALES CONSULTANT Ambulatory Discharge Medication List [address] [id number] Visit Information Name: GRICELDA REID [facility] Number: [id number] Visit Date: 07/13/2014 18:33:45 Attending Provider: HOMER BAUER CNP Primary Care Provider: OSEAS IWLSON PA-C GRICELDA REID has been given the [...] 1 Tablet(s), Oral, two times a day calcium carbonate (calcium carbonate 500 mg (200 mg elemental calcium) oral tablet, chewable) 1 Tablet(s), three times a day citalopram (citalopram) 40 mg, Oral, once a day cyanocobalamin (Vitamin B12 1000 mcg/mL injectable solution) Intramuscular, once a month HYDROcodone-acetaminophen (Edgecomb 5 mg-325 mg oral tablet) 1 Tablet(s), Oral, every 6 hours as neededfor Pain x 5 day(s) No more than 4,000mg acetaminophen/24hrs New Routed to [facility] levothyroxine (levothyroxine) 75 mcg, , once a day multivitamin with minerals (Vital-D oral tablet) 2000IU, Oral, once a day multivitamin, ( Plus Iron) 2 Tablet(s), Oral, once a day verapamil (verapamil 120 mg oral tablet) See Instructions 1 tab(s) PO daily Stop Taking the Following Medications: Medication list as of 07-13-14 18:33 Attention: If you have any medications at home that are not on this list, DO NOT take them until youcontact your provider for clarification. Give a copy of your medication list to your primary care provider. Update your medication list any time medications or doses are changed and carry your medication list at all times in case of emergency. Electronically Signed By: HOMER BAUER CNP Signed On:13-JUL-2014 18:33:37 Additional Information: Source: [facility] PharmAthene Document Id: [id number] CT SALES CONSULTANT Miscelllamberto - Homer Tamayo APRN, C.N.P. - 07/13/2014 5:39 PM DIRECT SALES CONSULTANT Results Notification Document Contains Addenda Addendum by LATONIA ANTHONY LPN on 14 July 2014 08:37:52 DIRECT SALES CONSULTANT Patient is aware. From: HOMER BAUER CNP Sent: 07/13/2014 17:39:14 DIRECT SALES CONSULTANT ! Show up: 07/13/2014 17:39:14 DIRECT SALES CONSULTANT Subject: Results Notification Actions: Notify patient of results Reminder Comments: knee xray negative as well. Results: Date Result Type Result Name 07/13/2014 16:45 Radiology XR Knee Left 3 views Source: [facility] [employer]thene Document Id: [id number] Electronically signed by Ruby [facility] Member Of [employer] [id number] at 01/06/2017 9:27 PM CDT Miscellaneous - Homer Tamayo APRN, C.N.P. - 07/13/2014 5:38 PM DIRECT SALES CONSULTANT Results Notification Document Contains Addenda Addendum by LATONIA ANTHONY LPN on 14 July 2014 08:38:10 DIRECT SALES CONSULTANT Pateint is aware. From: HOMER BAUER CNP Sent: 07/13/2014 17:38:46 DIRECT SALES CONSULTANT ! Show up: 07/13/2014 17:38:46 DIRECT SALES CONSULTANT Subject: Results Notification Actions: Notify patient of results Reminder Comments: left hip xray negative Results: Date Result Type Result Name 07/13/2014 16:45 Radiology XR Hip Left 2 or more views Source: [facility] POWERCHART Document Id: [id number] Electronically signed by Conversion, [facility] Member Of The Legislative [employer] [id number] at 01/06/2017 9:27 PM CDT Miscellaneous - Latonia Anthony, L.P.N. - 07/13/2014 3:30 PM CST Adult [place] Intake/History Adult [place] Intake/History Entered On: 07/13/2014 15:35 DIRECT SALES CONSULTANT Performed On: 07/13/2014 15:30 DIRECT SALES CONSULTANT by LATONIA ANTHONY LPN Intake Chief Complaint : Left knee pain wants referral to Dr. Grady LMP Date : Hysterectomy Temperature Core : 37.1 DegC(Converted to: 98.8 DegF) Peripheral Pulse Rate : 60 /min Respiratory Rate : 16 /min Systolic Blood Pressure : 130 mmHg Diastolic Blood Pressure : 80 mmHg NIBP Mean : 97 mmHg BP Location : Right upper extremity Blood Pressure Cuff Size : Regular Height : 163.8 cm(Converted to: 5 ft 4 inch(es), 64 inch(es)) Actual Weight : 88.5 kg(Converted to: 195 lb 2 oz) Weight Source : Standing scale Dosing Weight Clinic : 88.5 kg Clinic BSA : 2.01 Body Mass Index : 32.98 kg/m2 LATONIA ANTHONY LPN - 07/13/2014 15:30 DIRECT SALES CONSULTANT General Info Languages : Turkmen Is Patient Female and 13-50 no hysterectomy : Yes Status : Patient denies Are you ? : No LATONIA ANTHONY LPN - 07/13/2014 15:30 DIRECT SALES CONSULTANT Subjective Pain Symptoms : Yes Injury : Other: fell on left knee December 2012 LATONIA ANTHONY LPN - 07/13/2014 15:30 DIRECT SALES CONSULTANT Pain Pain Assessment Grid Pain 1 Location : Knee Laterality : Left Intensity : 8 Duration : chronic LATONIA ANTHONY LPN - 07/13/2014 15:30 DIRECT SALES CONSULTANT Dependent Habits Tobacco Use/Currently Using : No Tobacco Use/Last 12 months : No Tobacco Use/Advised to Quit : No Exposure to Tobacco Smoke : Other: former smoker Smoking Status : Former smoker LATONIA ANTHONY LPN - 07/13/2014 15:30 DIRECT SALES CONSULTANT Tobacco Use Grid Last Use : 1997 LATONIA ANTHONY LPN - 07/13/2014 15:30 DIRECT SALES CONSULTANT ID Screen Drug Resistant Organism : No Travel Within Last 21 Days : No LATONIA ANTHONY LPN - 07/13/2014 15:30 DIRECT SALES CONSULTANT Source: [facility] [employer] Document Id: [id number] DIRECT SALES CONSULTANT!45 CT SALES CONSULTANT Miscellaneous - Latonia Anthony L.P.NRafal - 07/13/2014 3:30 PM CST Health Assessment Health Assessment Entered On: 07/13/2014 15:37 DIRECT SALES CONSULTANT Performed On: 07/13/2014 15:30 DIRECT SALES CONSULTANT by LATONIA ANTHONY LPN Health Assessment Complete Health Assessment Complete or Modified : Annual Health Assessment Annual Health Assessment Completed : Yes LATONIA ANTHONY LPN - 07/13/2014 15:30 DIRECT SALES CONSULTANT Nutrition Nutrition Risk Factors by History Adult : None LATONIA ANTHONY LPN - 07/13/2014 15:30 DIRECT SALES CONSULTANT Functional Current Daily Living Assistance : None Mobility Assistance Prior to Admission : Independent LATONIA ANTHONY LPN - 07/13/2014 15:30 DIRECT SALES CONSULTANT Dependent Habits Tobacco Use/Currently Using : No Tobacco Use/Last 12 months : No Tobacco Use/Advised to Quit : No Exposure to Tobacco Smoke : Other: former Smoking Status : Former smoker LATONIA ANTHONY LPN - 07/13/2014 15:30 DIRECT SALES CONSULTANT Tobacco Use Grid Last Use : 1997 LATONIA ANTHONY LPN - 07/13/2014 15:30 DIRECT SALES CONSULTANT Alcohol Use : No LATONIA ANTHONY LPN - 07/13/2014 15:30 DIRECT SALES CONSULTANT Caffeine Use Grid Caffeine Use : Current Type : Chocolate Frequency : Monthly Last Use : 07/13/14 LATONIA ANTHONY LPN - 07/13/2014 15:30 DIRECT SALES CONSULTANT Recreational Drug Use Grid Drug Use : None LATONIA ANTHONY LPN - 07/13/2014 15:30 DIRECT SALES CONSULTANT Psychosocial Domestic Abuse Concerns : None Marital Status : Number of Children : 2 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 LATONIA ANTHONY LPN - 07/13/2014 15:30 DIRECT SALES CONSULTANT Advance Directive Advanced Directives : No Advance Directive Additional Information : No LATONIA ANTHONY LPN - 07/13/2014 15:30 DIRECT SALES CONSULTANT Educ Needs Learning Style Preference Adult Grid Patient : Printed materials, Verbal explanation Family : Verbal explanation, Printed materials LATONIA ANTHONY LPN - 07/13/2014 15:30 DIRECT SALES CONSULTANT Source: [employer] Document Id: [id number] DIRECT SALES CONSULTANT!42 CT SALES CONSULTANT Miscellaneous - Latonia Anthony L.P.N. - 07/13/2014 3:30 PM CST PHQ-9 PHQ-9 Entered On: 07/13/2014 15:37 DIRECT SALES CONSULTANT Performed On: 07/13/2014 15:30 DIRECT SALES CONSULTANT by LATONIA ANTHONY LPN PHQ-9 Little interest [...] with others : Not difficult at all LATONIA ANTHONY LPN - 07/13/2014 15:30 DIRECT SALES CONSULTANT Source: [facility] Document Id: [id number] DIRECT SALES CONSULTANT!13 CT SALES CONSULTANT documented in this encounter Plan of Treatment Not on filedocumented as of this encounter Procedures Procedure Name Priority Date/Time Associated Diagnosis Comme nts DX KNEE LEFT 3 Routine 07/13/2014 4:46 PM Results for this VIEWS DIRECT SALES CONSULTANT procedure are i n the results section. DX HIP LEFT 2-3 Routine 07/13/2014 4:46 PM Result s for this VIEWS DIRECT SALES CONSULTANT procedure are i n the results section. documented in this encounter Results DX Hip Left 2+ Views (07/13/2014 4:46 PM DIRECT SALES CONSULTANT) Anatomical Region Laterality Modality Lower Extremity, Hip Left Radiographic Imagin g Specimen (Source) Anatomical Collection Method Collection Time Re ceived Time Location / / Volume Laterality 07/13/2014 4:46 PM DIRECT SALES CONSULTANT Impressions 07/13/2014 4:42 PM DIRECT SALES CONSULTANT As above Narrative 07/13/2014 4:42 PM DIRECT SALES CONSULTANT EXAM: XR Hip Left 2 or more views INDICATION: hip pain COMPARISON: None. FINDINGS: Left hip and hip joint are nor mal Procedure Note Pedro Enriquez D.O. / ProviderMiladys M.D. - 12/20/2016 EXAM: XR Hip Left 2 or more views INDICATION: hip pain COMPARISON: None. FINDINGS: Left hip and hip joint are nor mal IMPRESSION: As above Evy Oliver R.T.(R), R.TRafal(R)(M) IMG DIAGNOSTIC IMAG ING PROCEDURES DX Knee Left 3 Views (07/13/2014 4:46 PM DIRECT SALES CONSULTANT) Anatomical Region Laterality Modality Lower Extremity, Knee Left Radiographic Imagi ng Specimen (Source) Anatomical Collection Method Collection Time Re ceived Time Location / / Volume Laterality 07/13/2014 4:46 PM DIRECT SALES CONSULTANT Narrative 07/13/2014 4:42 PM DIRECT SALES CONSULTANT Technique: Multiple views of the left kn ee were obtained. No prior studies are available for comparison. FINDINGS: There are no evidence of acute fracture, dislocation/subluxation or focal destruc tion. The joint spaces are maintained and no soft tissue abnormalit y is seen. ??No radiopaque foreign bodies identified. Impression: No radiographic evidence of acute osseous pathology. Procedure Note Manuel Byrne M.D. / ProviderBrisa M.D. - 12/20/2016 Technique: Multiple views of the left kn ee were obtained. No prior studies are available for comparison. FINDINGS: There are no evidence of acute fracture, dislocation/subluxation or focal destruc tion. The joint spaces are maintained and no soft tissue abnormalit y is seen. No radiopaque foreign bodies identified. Impression: No radiographic evidence of acute osseous pathology. Evy Choi(R), RRafalTRafal(R)(M) IMG DIAGNOSTIC IMAG ING PROCEDURES documented in this encounter Visit Diagnoses Not on filedocumented in this encounter
--- OUTSIDE RECORDS SUMMARY | 2022-04-10 15:02 | XMS_ITS | Encounter Summary ---
:1980 Author Organization [facility] Address [address] [place] [address] Care Team Providers Name Role Phone Unavailable Primary Care Provider Unavailable Encounter Details Date Type Department Care Team Description 12/25/2014 Hospital Encounter HX [facility] Michael Grady M.D. [address] [place] [address], [address] [place] [address] (Wo rk) Social History Tobacco [...] do you attend [facility] or Never 2021 adventism services? 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 - 12/25/2014 2:24 PM CDT [id number] CHIEF COMPLAINT/REASON FOR VISIT Left knee pain. HISTORY OF PRESENT ILLNESS Oseas Wilson PA-C has requested my opinion today with regards to Ms. Reid's left knee pain. Ms. Reid is a pleasant 34-year-old female reports she has had left knee pain for at least the past year and a half. She reports she thought this initially began after she fell on the ice in [place]. She describes this pain as primarily located in the medial parapatellar region, but also she has posterior knee pain as well. She describes this pain as being worse when she is standing or walking. She describes this as an achy discomfort. She rates as a 9 out of 10 at its worse and a 4 out of 10 at its best. She occasionally can have pain at night. She notes occasional swelling without any catching or locking in the knee. She describes her posterior knee pain as an achy discomfort that is located inthe posterior aspect of the knee. It does not involve as frequently in the anterior knee but it bothers her on a regular basis. She has been using Extra-Strength Tylenol which she has not found to be overly helpful. She did have her previously a left knee intra-articular corticosteroid injection, which she did not find to be overly helpful. Ms. Reid had an MRI performed of her left knee on December 04, 2014, at [facility]. This showed chondromalacia and intermediate grade fissuring of the medial femoral condyle, with low grade 1 chondromalacia of the tibial plateau. There is also grade 1 chondromalacia and fissuring in the midpatella. There is a small popliteal cyst. MEDICATIONS Reviewed as per EMR on 12/25. ALLERGIES Reviewed as per EMR on 12/25. PAST MEDICAL/SURGICAL HISTORY Reviewed as per EMR on 12/25. SOCIAL HISTORY Ms. Reid lives in [place]. 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 PHYSICAL EXAMINATION GENERAL: Pleasant 34-year-old female in no acute distress. GAIT: Non-antalgic. She has marked dynamic valgus instability with single leg squat on the left. STRENGTH: All major muscle groups of the bilateral lower extremities have normal and symmetric muscle strength, bulk and tone except for left hip abductors. KNEES: There is no effusion present left knee. Range of motion 0 to 130 degrees. Negative Armand, negative posterior drawer, no pain or laxity of varus or stress testing, negative bounce home. Brianne's causes pain in the anterior knee without a palpable click. There is tenderness to palpation most marked over the inferior medial patellar facet. There is also tenderness to palpation along the medial joint line. Positive patellar grind. There is fullness in the popliteal fossa, without any warmth or erythema. There is no calf warmth or erythema, or tenderness. IMPRESSION/REPORT/PLAN 1. Left knee pain. 2. Left knee degenerative joint disease. 3. Left popliteal cyst. Ms. Reid's symptoms and examination are most consistent with left patellofemoral pain syndrome. Huber feel that her posterior knee pain is likely related to her small popliteal cyst. PLAN: 1. I am going have Ms. Reid involved in physical therapy. We are going to work on a comprehensiveprogram including strengthening of her quadriceps and hip groups, especially her abductors as well as flexibility and stretching exercises for her hamstrings and iliotibial band. I am also going to fither with a patellofemoral support brace. 2. With Ms. Reid's persistent posterior knee pain, we are going to proceed with a left popliteal cyst aspiration and left knee intra-articular corticosteroid injection. We will arrange for this to occur at the first available time. 3. I will plan on seeing Ms. Reid back following the left popliteal cyst aspiration as well as wewill plan on seeing her back following physical therapy if she is not improving. Ms. Reid voiced agreement and understanding with this plan. Meri Grady M.D./caitlyn cc: Oseas Wilson PA-C [facility] in [address] [address] Electronically Signed By: MERI GRADY MD On: 12/27/2014 02:43 PM Modified by and Electronically Signed by: MERI GRADY MD On: 12/27/2014 02:43 PM Source: [facility] MHSDOLBEYNONRADSYS Document Id: [id number] documented in this encounter Miscellaneous Notes Miscellaneous - Meri Grady M.D. - 12/25/2014 3:30 PM CDT Ambulatory Patient Summary [address] [id number] Visit Information Name: MUKUL REID [facility] Number: [id number] Current Date: 12/25/2014 15:30:07 Physicians Attending Provider: MERI GRADY MD Primary [...] the Following Medications: Medication list as of 12-25-14 15:30 Attention: If you have any medications at [...] Electronically Signed By: MERI GRADY MD Signed On:25-DEC-2014 15:29:46 Your Allergies & Intolerances Substance Reaction Symptoms [...] appointment detail needed. Your Goals/Additional instructions: Source: [facility] POWERCHART Document Id: [id number] Miscellaneous - Meri Grady M.D. - 12/25/2014 3:30 PM CDT Ambulatory Discharge Medication List [address] [id number] Visit Information Name: MUKUL REID [facility] Number: [id number] Visit Date: 12/25/2014 15:30:06 Attending Provider: MERI GRADY MD Primary Care [...] the Following Medications: Medication list as of 12-25-14 15:30 Attention: If you have any medications at [...] Electronically Signed By: MERI GRADY MD Signed On:25-DEC-2014 15:29:46 Additional Information: Source: [facility] [employer] Document Id: [id number] Miscellaneous - Natalee Eugene Ralph - 12/25/2014 2:58 PM CDT 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 Entered On: 12/25/2014 14:59 CDT Performed On: 12/25/2014 14:58 CDT by NATALEE EUGENE Intake Systolic Blood Pressure : 118 mmHg Diastolic Blood Pressure : 66 mmHg NIBP Mean : 83 mmHg BP Location : Left upper extremity Blood Pressure Cuff Size : Regular Height : 165 cm(Converted to: 5 ft 5 inch(es), 65 inch(es)) Actual Weight : 87.1 kg(Converted to: 192 lb 0 oz) Weight Source : Standing scale Dosing Weight Clinic : 87.1 kg Clinic BSA : 2 Body Mass Index : 31.99 kg/m2 NATALEE EUGENE - 12/25/2014 14:58 CDT General Info Information Given By : Patient Preferred Communication Mode : Verbal Languages : Khmer Is Patient Female and 13-50 no hysterectomy : NATALEE Padilla 12/25/2014 14:58 CDT Subjective Pain Symptoms : No NATALEE EUGENE 12/25/2014 14:58 CDT Dependent Habits Tobacco Use/Currently Using : No Exposure to Tobacco Smoke : Other: former Smoking Status : Former smoker NATALEE EUGENE 12/25/2014 14:58 CDT Caffeine Use Grid Caffeine Use : Current Type : Chocolate, Coffee, Soft drinks Frequency : Daily Last Use : 12/06/14 NATALEE EUGENE - 12/25/2014 14:58 CDT Recreational Drug Use Grid Drug Use : None VALORIE NATALEE Ralph 12/25/2014 14:58 CDT ID Screen Drug Resistant Organism : No Travel Within Last 21 Days : No Contact with someone with Ebola : No NATALEE EUGENE Ralph 12/25/2014 14:58 CDT Source: [facility] [employer] Document Id: [id number] CDT!37 documented in this encounter Plan of Treatment Not on filedocumented as of this encounter Visit Diagnoses Not on filedocumented in this encounter
--- OUTSIDE RECORDS SUMMARY | 2022-04-10 15:02 | XMS_ITS | Encounter Summary ---
:1980 Author Organization [facility] Address [address] [place] [address] Care Team Providers Name Role Phone Unavailable Primary Care Provider Unavailable Encounter Details Date Type Department Care Team Description 09/07/2014 Hospital Encounter HX [facility] Akhil Meza P.A.-C. [address] [place] [address] (Wo rk) Social History Tobacco [...] do you attend bahai or Never 2021 rom[employer] cath[employer] services? 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 - 09/07/2014 1:30 PM CST [id number] CHIEF COMPLAINT/REASON FOR VISIT Left knee pain and abdominal discomfort. HISTORY OF PRESENT ILLNESS Mukul is a 33-year-old female, who has a history of knee pain that has bothered her now for quite some time. This apparently was evaluated with an MRI at the [facility] and she was toldshe had some type of a cyst on her knee. It flares up from time to time and she did see Christal. Apparently this has been injected before. Chrsital recommend she follow up with Dr. Grady, but this was never done, so she comes back in to discuss this. Also 1 week ago, she began experiencing an epigastric discomfort in her left upper abdomen that radiates to her back. She was seen in the clinic up in [place] and had a slew of medical tests done. Apparently, she had an EKG done that was normal. She had pancreatic enzymes as well as a metabolic panel and a CBC that was normal according to the patient. She does not have these records and I have not seen and this is only per the patient's report. Her symptoms have persisted. She was told she had gastroenteritis and that she just treat it conservatively. Since her symptoms have not improved, she came in today to get a second opinion. She has had bariatric surgery done a couple years ago, and has not followed up with them recently. She has not had any worsening of her bowels. She says her stools have been normal. She has not had nausea or vomiting. She has had an appendectomy as well as a cholecystectomy in the past. PHYSICAL EXAMINATION VITAL SIGNS: Noted in the EMR. GENERAL: She appears in no acute distress. ENT: TMs, no erythema. Throat, no erythema. NECK: No lymphadenopathy. No thyroid masses. HEART: Regular rate and rhythm. No murmurs. LUNGS: Clear to auscultation. ABDOMEN: Soft with minimal tenderness to palpation in the right lower quadrant. No guarding or rigidity was noted. No tenderness to percussion or palpation of the chest wall. MUSCULOSKELETAL: Knee shows no erythema or swelling. Drawer sign negative. No tenderness to varus orvalgus stress. Brianne sign was negative. IMPRESSION/REPORT/PLAN 1. Knee pain. I think it is worthwhile to have her follow up with Dr. Grady for further evaluation. I would like her to get her report from her MRI and take it to Dr. Grady's appointment, so that he can review this as well. If there is a cyst there, she may need to have an ultrasound and possibly havethis drained. Certainly, it could be a Norris's cyst. I do not know at this time. I did not feel anything on exam today. 2. Abdominal discomfort. We tried to get a CBC, but we were unable to draw this today because the patient was a difficult stick. She is afebrile, so I do not think it is imperative that we do blood work today. At this time, I am going to have her [facility] I think likely this is secondary to her bariatric surgery. She has taken a little bit of ibuprofen.I recommend she stay away from this because certainly with her pouch this can be problematic. She may need an endoscopy for further evaluation and treatment of this. Certainly, if it worsens in the near future, she should be seen sooner. Otherwise, I am going to have her follow up as scheduled with her bariatric surgeon. Oseas Meza PA-C/caitlyn Electronically Signed By: OSEAS MEZA PA-C On: 09/08/2014 08:22 AM Source: [facility] MHSDOLBEYNONRADSYS Document Id: [id number] ERY BUILDER documented in this encounter Miscellaneous Notes Miscellaneous - Oseas Meza P.A.-C. - 09/07/2014 3:29 PM CST Ambulatory Patient Summary [address] [id number] Visit Information Name: MUKUL REID [facility] Number: [id number] Current Date: 09/07/2014 15:29:47 Physicians Attending Provider: OSEAS MEZA PA-C Primary [...] mcg/mL injectable solution) Intramuscular, once a month levothyroxine (levothyroxine) 75 mcg, , once a day multivitamin with minerals (Vital-D oral tablet) 2000IU, Oral, once a day multivitamin, ( Plus Iron) 2 Tablet(s), Oral, once a day verapamil (verapamil 120 mg oral tablet) See Instructions 1 tab(s) PO daily Stop Taking the Following Medications: Medication list as of 09-07-14 15:29 Attention: If you have any medications at [...] Electronically Signed By: OSEAS MEZA PA-C Signed On:07-SEP-2014 15:29:37 Your Allergies & Intolerances Substance Reaction Symptoms Category Comments Keflex Drug Your Problem List Problem Status Onset Comments Degenerative Joint Disease Multiple Sites Active Gastric Bypass S/P Active Disorder Attention Deficit Hyperactive (ADHD) Active Depression Anxiety Active Hypothyroidism NOS Active Migraine Headache (AGUILERA) NOS Active Pain Back Lumbar Active Your Upcoming Appointments Date Time Location Provider 09/28/2014 09:45 FBCV PM&R Miguel A FLORES, Kenrick Rosas Attention: Contact your local Clinic if further appointment detail needed. Your Goals/Additional instructions: Source: [facility] POWERCHART Document Id: [id number] ERY BUILDER Miscellaneous - Oseas Meza P.A.-C. - 09/07/2014 3:29 PM CST Ambulatory Discharge Medication List [address] [id number] Visit Information Name: MUKUL RIED [facility] Number: [id number] Visit Date: 09/07/2014 15:29:46 Attending Provider: OSEAS MEZA PA-C Primary Care [...] mcg/mL injectable solution) Intramuscular, once a month levothyroxine (levothyroxine) 75 mcg, , once a day multivitamin with minerals (Vital-D oral tablet) 2000IU, Oral, once a day multivitamin, ( Plus Iron) 2 Tablet(s), Oral, once a day verapamil (verapamil 120 mg oral tablet) See Instructions 1 tab(s) PO daily Stop Taking the Following Medications: Medication list as of 09-07-14 15:29 Attention: If you have any medications at [...] Electronically Signed By: OSEAS MEZA PA-C Signed On:07-SEP-2014 15:29:37 Additional Information: Source: [facility] POWERCHART Document Id: [id number] ERY BUILDER Miscellaneous - Collin Anthony L.P.N. 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 Billing Customer Service Representative Intake/History Entered On: 09/07/2014 13:53 BATTERY BUILDER Performed On: 09/07/2014 13:46 BATTERY BUILDER by COLLIN ANTHONY LPN Intake Chief Complaint : here for pain noted mid chest left breast wraps around middle of back and also pain in her left knee Onset of Symptoms : 08/30/14 Temperature Core : 36 DegC(Converted to: 96.8 DegF) (LOW) Peripheral Pulse Rate : 108 /min (HI) Respiratory Rate : 16 /min Systolic Blood Pressure : 164 mmHg (>HHI) Diastolic Blood Pressure : 68 mmHg NIBP Mean : 100 mmHg BP Location : Right upper extremity Blood Pressure Cuff Size : Large SpO2 : 100 % Oxygen Therapy : Room air Height : 164.7 cm(Converted to: 5 ft 5 inch(es), 65 inch(es)) Actual Weight : 88.2 kg(Converted to: 194 lb 7 oz) Weight Source : Standing scale Dosing Weight Clinic : 88.2 kg Clinic BSA : 2.01 Body Mass Index : 32.51 kg/m2 COLLIN ANTHONY LPN - 09/07/2014 13:46 BATTERY BUILDER General Info Information Given By : Patient, Spouse Preferred Communication Mode : Verbal Languages : Palauan Is Patient Female and 13-50 no hysterectomy : No COLLIN ANTHONY LPN - 09/07/2014 13:46 BATTERY BUILDER Subjective Pain Symptoms : Yes COLLIN ANTHONY LPN - 09/07/2014 13:46 BATTERY BUILDER Pain Scale Pain Scale Verbal 0-10 : Open COLLIN ANTHONY LPN - 09/07/2014 13:46 BATTERY BUILDER Pain Pain Assessment Grid Pain 1 Pain 2 Location : Knee Chest Laterality : Left Other: middle Intensity : 7 10 Duration : chronic 08/30/13 COLLIN ANTHONY LPN - 09/07/2014 13:46 BATTERY BUILDER COLLIN ANTHONY LPN - 09/07/2014 13:46 BATTERY BUILDER Dependent Habits Tobacco Use/Currently Using : No Tobacco Use/Last 12 months : No Tobacco Use/Advised to Quit : No Exposure to Tobacco Smoke : Other: former Smoking Status : Former smoker COLLIN ANTHONY LPN - 09/07/2014 13:46 BATTERY BUILDER Tobacco Use Grid Last Use : 1997 COLLIN ANTHONY LPN 09/07/2014 13:46 BATTERY BUILDER Alcohol Use : Yes COLLIN ANTHONY LPN 09/07/2014 13:46 BATTERY BUILDER Caffeine Use Grid Caffeine Use : Current Type : Chocolate, Coffee, Soft drinks Frequency : Daily Last Use : 09/07/14 COLLIN ANTHONY LPN - 09/07/2014 13:46 BATTERY BUILDER Recreational Drug Use Grid Drug Use : None COLLIN ANTHONY LPN - 09/07/2014 13:46 BATTERY BUILDER ID Screen Drug Resistant Organism : No Travel Within Last 21 Days : No COLLIN ANTHONY LPN - 09/07/2014 13:46 BATTERY BUILDER Source: [employer] Document Id: [id number] BATTERY BUILDER!63 ERY BUILDER Miscellaneous - Collin Anthony L.P.N. - 09/07/2014 1:46 PM CST PHQ-9 PHQ-9 Entered On: 09/07/2014 13:53 BATTERY BUILDER Performed On: 09/07/2014 13:46 BATTERY BUILDER by COLLIN ANTHONY LPN PHQ-9 Little interest [...] difficult at all COLLIN ANTHONY LPN - 09/07/2014 13:46 BATTERY BUILDER Source: [employer] Document Id: [id number] BATTERY BUILDER!13 ERY BUILDER documented in this encounter Plan of Treatment Not on filedocumented as of this encounter Visit Diagnoses Not on filedocumented in this encounter
--- OUTSIDE RECORDS SUMMARY | 2022-04-10 15:02 | XMS_ITS | Encounter Summary ---
:1980 Author Organization [facility] Address [address] [place] [address] Care Team Providers Name Role Phone Unavailable Primary Care Provider Unavailable Encounter Details Date Type Department Care Team Description 11/29/2014 Hospital Encounter HX [facility] Akhil Wilson P.A.-C. [address] [place] [address] (Wo rk) Social History Tobacco [...] do you attend latter-day or Never 2021 yazdanism services? 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 - 11/29/2014 11:19 AM CDT [id number] CHIEF COMPLAINT/REASON FOR VISIT Knee pain. HISTORY OF PRESENT ILLNESS Gricelda is a 34-year-old female who twisted her knee this weekend while cleaning her house. She does not recall any specific injury but said all of a sudden her knee started hurting and she ended up going to the [facility] and had an x-ray that was apparently negative. I had previously x-rayed her knee because of some chronic knee discomfort. Over the weekend, her knee pain persisted and she comes in today for further evaluation and treatment. She says a couple times it has locked up on her. She feels as though she is unable to straighten it out all the way. She also was concerned about some low blood sugars. She has a strong family history of diabetes in her family. She had bariatric surgery. She also admits to eating large amounts of sugar at a time. She will drink a Monster drink or sometimes have a regular soda. She says that after this sometimes she will feel lightheaded. She checked her blood sugar and found it to be in the mid to upper 50s. PHYSICAL EXAMINATION VITAL SIGNS: Noted in the EMR. GENERAL: She appears in no acute distress. EXTREMITIES: Examination of her knee, there is a bit of swelling of her left knee compared to the right. No erythema was noted. There is tenderness to valgus stress. No tenderness to varus stress. Brianne sign positive for pain on the medial aspect of the knee with flexion and valgus stress. Armand's sign negative. I was unable to fully extend her knee due to the discomfort. IMPRESSION/REPORT/PLAN 1. Knee pain. PLAN: I reviewed her previous x-ray that was done here. I reviewed it with her personally and I do think it is worthwhile evaluating this further with an MRI. Did talk about waiting a week or 2 to see if her symptoms improve, but she would like to get this done sooner than later, so I will set her up with an MRI and I will see her back in a week to discuss the results. Likely, she has a meniscus tearand may need further evaluation with Orthopedics. She is in agreement with this plan. She has an upcoming appointment with Dr. Grady already scheduled from her previous knee pain. 2. Hypoglycemia. We spent some time discussing this. I stressed the importance of her eating smaller, frequent meals and not larger boluses of sugar at a time. She is in agreement with this plan. I didrecently check her blood sugar fasting and it was 105. Will continue to keep an eye on this. If there is any further questions or problems she will let us know. Oseas Wilson PA-C/caitlyn Electronically Signed By: OSEAS WILSON PA-C On: 11/29/2014 05:15 PM Source: [facility] MHSDOLBEYNONRADSYS Document Id: [id number] documented in this encounter Miscellaneous Notes Miscellaneous - Oseas Wilson P.A.-C. - 11/29/2014 12:41 PM CDT Ambulatory Patient Summary [place] [id number] [facility] [place], [place] [id number] Visit Information Name: JEANETTE GRICELDA LINUS [facility] Number: [id number] Current Date: 11/29/2014 12:41:22 Physicians Attending Provider: OSEAS WILSON PA-C Primary [...] solution) 1,000 mcg, Intramuscular, once a month HYDROcodone-acetaminophen (Carlton 5 mg-325 mg oral tablet) 1 Tablet(s), Oral, every 4 hours as neededfor Pain x 3 day(s) No more than 4,000mg acetaminophen/24hrs New Routed to Printer levothyroxine (levothyroxine 75 mcg (0.075 mg) oral tablet) 75 mcg, Oral, once a day multivitamin, ( Plus Iron oral tablet) 1 Tablet(s), Oral, once a day verapamil (verapamil 120 mg/24 hours oral capsule, extended release) 1 cap, Oral, once a day Stop Taking the Following Medications: Medication list as of 11-29-14 12:41 Attention: If you have any medications at [...] Electronically Signed By: OSEAS WILSON PA-C Signed On:29-NOV-2014 12:41:13 Your Allergies & Intolerances Substance Reaction Symptoms Category Comments Keflex Drug Your Problem List Problem Status Onset Comments Degenerative Joint Disease Multiple Sites Active Gastric Bypass S/P Active Disorder Attention Deficit Hyperactive (ADHD) Active Depression Anxiety Active Hypothyroidism NOS Active Migraine Headache (AGUILERA) NOS Active Pain Back Lumbar Active Your Upcoming Appointments Date Time Location Provider 12/07/2014 10:00 [facility] Family[facility]ra Oseas Michelle 12/25/2014 14:30 [facility] PM&R Miguel A FLORES, Kenrick Rosas Attention: Contact your local Clinic if further appointment detail needed. Your Goals/Additional instructions: Source: [facility] POWERCHART Document Id: [id number] Miscellaneous - Oseas Wilson P.A.-C. - 11/29/2014 12:41 PM CDT Ambulatory Discharge Medication List [address] [id number] Visit Information Name: GRICELDA REID [facility] Number: [id number] Visit Date: 11/29/2014 12:41:20 Attending Provider: OSEAS WILSON PA-C Primary Care Provider: OSEAS WILSON PA-C JEANETTE GRICELDA BARRIGA has been given the following list of [...] solution) 1,000 mcg, Intramuscular, once a month HYDROcodone-acetaminophen (Carlton 5 mg-325 mg oral tablet) 1 Tablet(s), Oral, every 4 hours as neededfor Pain x 3 day(s) No more than 4,000mg acetaminophen/24hrs New Routed to Printer levothyroxine (levothyroxine 75 mcg (0.075 mg) oral tablet) 75 mcg, Oral, once a day multivitamin, ( Plus Iron oral tablet) 1 Tablet(s), Oral, once a day verapamil (verapamil 120 mg/24 hours oral capsule, extended release) 1 cap, Oral, once a day Stop Taking the Following Medications: Medication list as of 11-29-14 12:41 Attention: If you have any medications at [...] Electronically Signed By: OSEAS WILSON PA-C Signed On:29-NOV-2014 12:41:13 Additional Information: Source: [facility] POWERCHART Document Id: [id number] Miscellaneous - Sakina Jensen L.P.N. - 11/29/2014 11:29 AM CDT Adult Supervisor Dock Intake/History Adult Supervisor Dock Intake/History Entered On: 11/29/2014 11:33 CDT Performed On: 11/29/2014 11:29 CDT by SAKINA JENSEN K Intake Chief Complaint : L knee pain since last Fri Temperature Core : 36.3 DegC(Converted to: 97.3 DegF) (LOW) Peripheral Pulse Rate : 100 /min Respiratory Rate : 16 /min Systolic Blood Pressure : 110 mmHg Diastolic Blood Pressure : 76 mmHg NIBP Mean : 87 mmHg BP Location : Left upper extremity Blood Pressure Cuff Size : Large Height : 165 cm(Converted to: 5 ft 5 inch(es), 65 inch(es)) Actual Weight : 87 kg(Converted to: 191 lb 13 oz) Weight Source : Other: wt provided by pt. Dosing Weight Clinic : 87 kg Clinic BSA : 2 Body Mass Index : 31.96 kg/m2 SAKINA JENSEN 11/29/2014 11:29 CDT General Info Information Given By : Patient Languages : Czech Is Patient Female and 13-50 no hysterectomy : No SAKINA JENSEN 11/29/2014 11:29 CDT Subjective Pain Symptoms : Yes SAKINA JENSEN 11/29/2014 11:29 CDT Pain Scale Pain Scale Verbal 0-10 : Open SAKINA JENSEN 11/29/2014 11:29 CDT Pain Pain Assessment Grid Pain 1 Location : Knee SAKINA JENSEN 11/29/2014 11:29 CDT Dependent Habits Tobacco Use/Currently Using : No Exposure to Tobacco Smoke : Other: former Smoking Status : Former smoker SAKINA JENSEN 11/29/2014 11:29 CDT Tobacco Use Grid Last Use : 1997 SAKINA JENSEN 11/29/2014 11:29 CDT Caffeine Use Grid Caffeine Use : Current Type : Chocolate, Coffee, Soft drinks Frequency : Daily Last Use : 09/07/14 SAKINA JENSEN 11/29/2014 11:29 CDT Recreational Drug Use Grid Drug Use : None SAKINA JENSEN 11/29/2014 11:29 CDT ID Screen Drug Resistant Organism : No Travel Within Last 21 Days : No Contact with someone with Ebola : No SAKINA JENSEN 11/29/2014 11:29 CDT Source: [employer] POWERCHART Document Id: [id number] CDT!49 documented in this encounter Plan of Treatment Not on filedocumented as of this encounter Visit Diagnoses Not on filedocumented in this encounter
--- OUTSIDE RECORDS SUMMARY | 2022-04-10 15:02 | XMS_ITS | Encounter Summary ---
:1980 Author Organization [facility] Address [address] [place] [address] Care Team Providers Name Role Phone Unavailable Primary Care Provider Unavailable Encounter Details Date Type Department Care Team Description 12/27/2014 Hospital Encounter HX [facility] PMTR Michael Grady M.D. [address] [place] [address], [address] [place] [address] (Wo rk) Social History Tobacco [...] do you attend restorationist or Never 2021 shinto services? 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 - 12/27/2014 12:00 AM CDT 1RPT DIAGNOSIS Left knee pain. HISTORY/INDICATION: Please see my clinical note dated 12/25/2014. In addition, I did evaluate her left posterior knee today and there was a very tiny left popliteal cyst which was located between the medial gastrocnemius and semimembranosus. Based on the very minimal size of the cyst, it was decided not to aspirate this today. PROCEDURE PERFORMED: Ultrasound-guided left knee intra-articular corticosteroid injection. PATIENT EDUCATION: Ready to learn. No apparent learning barriers were identified. Learning preferences include listening. Explained diagnosis and treatment of plan. The patient expressed understanding of the content. Following denial of allergy and review of potential side effects and complications including but notnecessarily limited to infection, allergic reaction, local tissue breakdown, systemic effects of corticosteroids, elevation of blood glucose, injury to soft tissues and/or nerves and seizure, the patient indicated understanding and agreed to proceed. Signed informed consent was obtained. The use of direct ultrasound visualization of the needle (rather than a non- guided injection) was required to increase patient safety by excluding inadvertent intramuscular or intratendinous placement and minimizing bleeding by avoiding osteochondral or vascular injury from the needle. Additionally, the increased accuracy of placement may increase clinical effectiveness and will allow higher diagnostic specificity when evaluating effectiveness of this injection. DESCRIPTION OF PROCEDURE: Prior to starting the procedure, a pause was performed to confirm the patients name, affected area and proposed procedure. The patient was placed in a supine position. Next, an optimal, ultrasound image of the left knee was obtained with a 15-6 linear transducer. A preprocedure image was saved to the hard drive. Following this, the area was prepped with a ChloraPrep scrub, then re-examined using the same transducer, a sterile ultrasound transducer cover, and sterile ultrasound transducer gel. Real time ultrasound was used to guide a 25 gauge 2-inch needle into the lateral suprapatellar recess using a lateral to medial approach in the long axis of the transducer. After visu alization of the tip in the target area and negative aspiration for blood, a mixture of 4 mL of 0.5%ropivacaine and 1 mL of 40 mg/mL of Depo-Medrol was delivered to the target area while observing injectate flow with real time ultrasonographic imaging. The injectate was delivered without complications. Zero mL of were wasted due to single use vials for infection control purposes. The patient tolerated the procedure well. She was observed for an appropriate amount of time and discharged under her own power. She was given my card and instructed to contact me with any questions pertaining to the injection. She was also instructed that should she experience any fever, chills, excessive redness at the injection site, or numbness or weakness, she should phone me immediately. She was instructed that she should use ice over the area of injection, and limit activity for the rest of the day. ADDITIONAL INSTRUCTIONS: Ms. Reid will be in contact with us if she has any difficulty following todays procedure. Otherwise, we will plan on being in contact with her over the phone in two weeks toassess her progress. She voiced agreement and understanding with this plan. Otherwise, we will plan to be in contact over the phone in 2 weeks to assess her progress. In addition, I gave her a detailednote for physical therapy, which we discussed at her clinical visit and she will initiate 1 week following today's procedure. Ms. Reid voiced agreement with the plan. Meri Grady M.D./caitlyn Electronically Signed By: MERI GRADY MD On: 12/28/2014 03:07 PM Modified by and Electronically Signed by: MERI GRADY MD On: 12/28/2014 03:07 PM Source: [facility] MHSDOLBEYNONRADSYS Document Id: [id number] documented in this encounter Miscellaneous Notes Miscellaneous - Cristin Eugene - 12/27/2014 3:02 PM CDT Reminder Msg Document Contains Addenda Addendum by CRISTIN EUGENE on 12 January 2015 12:51:27 CDT From: CRISTIN EUGENE ( Physical Medicine and Rehabilitation Staff) To: MERI GRADY MD; Sent: 01/12/2015 12:51:27 CDT Show up: 01/12/2015 12:50:00 CDT Subject: RE: Reminder Msg Spoke with patient; she will be starting physical therapy tomorrow, her knee is still bothering her,she doesn't feel the injection helped. She does have a follow up scheduled with you already. Addendum by RAJESH DALAL LPN on 11 January 2015 15:13:19 CDT Patient not home. From: CRISTIN EUGENE ( Physical Medicine and Rehabilitation Staff) To: Physical Medicine and Rehabilitation Staff; Sent: 12/27/2014 15:02:23 CDT Show up: 01/10/2015 15:02:00 CDT Subject: Reminder Msg Please Remember to: Call to see how pt is doing after left knee cortiocosteroid injection PATIENT: ( ) Call Patient ( ) Ask Patient to ( ) ( ) Call Relative ( ) Schedule Patient ( ) ( ) Call for Garment Turner ( ) Follow up on Results ( ) Other: PROVIDER: ( ) Call Physician ( ) Call Pharmacist ( ) Call Lab ( ) Other: Special Instructions: Comments: Source: [facility] POWERCHART Document Id: [id number] Electronically signed by Ruby [facility] [employer] [id number] at 01/05/2017 9:24 AM CDT Miscellaneous - Meri Grady M.D. - 12/27/2014 2:28 PM CDT Ambulatory Patient Summary [address] [id number] Visit Information Name: GRICELDA REID [facility] Number: [id number] Current Date: 12/27/2014 14:28:46 Physicians Attending Provider: MERI GRADY MD Primary [...] the Following Medications: Medication list as of 12-27-14 14:28 Attention: If you have any medications at [...] Electronically Signed By: MERI GRADY MD Signed On:27-DEC-2014 14:28:18 Your Allergies & Intolerances Substance Reaction Symptoms [...] appointment detail needed. Your Goals/Additional instructions: Source: [facility] [employer] Document Id: [id number] Miscellaneous - Meri Grady M.D. - 12/27/2014 2:28 PM CDT Ambulatory Discharge Medication List [facility] [address] [place] [id number] Visit Information Name: GRICELDA REID [facility] Number: [id number] Visit Date: 12/27/2014 14:28:45 Attending Provider: MERI GRADY MD Primary Care [...] the Following Medications: Medication list as of 12-27-14 14:28 Attention: If you have any medications at [...] Electronically Signed By: MERI GRADY MD Signed On:27-DEC-2014 14:28:18 Additional Information: Source: [facility] POWERCHART Document Id: [id number] Miscellaneous - Cristin Eugene - 12/27/2014 2:01 PM CDT 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 Document Has Been Updated 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 Entered On: 12/27/2014 14:02 CDT Performed On: 12/27/2014 14:01 CDT by CRISTIN EUGENE Intake Systolic Blood Pressure : 124 mmHg Diastolic Blood Pressure : 66 mmHg NIBP Mean : 85 mmHg BP Location : Right upper extremity Blood Pressure Cuff Size : Regular Height : 165 cm(Converted to: 5 ft 5 inch(es), 65 inch(es)) Actual Weight : 87.1 kg(Converted to: 192 lb 0 oz) Weight Source : Standing scale Dosing Weight Clinic : 87.1 kg Clinic BSA : 2 Body Mass Index : 31.99 kg/m2 CRISTIN EUGENE Ralph - 12/27/2014 14:01 CDT General Info Information Given By : Patient Preferred Communication Mode : Verbal Languages : Malian Is Patient Female and 13-50 no hysterectomy : Belkis EUGENE LACClifton Rosas - 12/27/2014 14:01 CDT Subjective Pain Symptoms : Belkis MUNROEDONALDO CRISTIN Rosas - 12/27/2014 14:01 CDT Dependent Habits Tobacco Use/Currently Using : No Exposure to Tobacco Smoke : Other: former Smoking Status : Former smoker BRENNA EUGENEClifton Rosas - 12/27/2014 14:01 CDT Caffeine Use Grid Caffeine Use : Current Type : Chocolate, Coffee, Soft drinks Frequency : Daily Last Use : 12/06/14 VALORIE CRISTIN Rosas - 12/27/2014 14:01 CDT Recreational Drug Use Grid Drug Use : None LUDWIGDONALDO CRISTIN Rosas - 12/27/2014 14:01 CDT Allergy (As Of: 12/27/2014 14:02:47 CDT) Allergies (Active) Keflex Estimated Onset Date: Unspecified ; Created By: LATONIA ANTHONY LPN; Reaction Status: Active; Category: Drug ; Substance: Keflex ; Type: Allergy ; Updated By: LATONIA ANTHONY LPN; Reviewed Date: 12/27/2014 14:01 CDT ID Screen Drug Resistant Organism : No Travel Within Last 21 Days : No Contact with someone with Ebola : Belkis EUGENE CRISTIN Rosas - 12/27/2014 14:01 CDT Source: [facility] [employer] Document Id: [id number] CDT!37 documented in this encounter Plan of Treatment Not on filedocumented as of this encounter Visit Diagnoses Not on filedocumented in this encounter
--- OUTSIDE RECORDS SUMMARY | 2022-04-10 15:02 | XMS_ITS | Encounter Summary ---
:1980 Author Organization [facility] Address [address] [place] [address] Care Team Providers Name Role Phone Unavailable Primary Care Provider Unavailable Encounter Details Date Type Department Care Team Description 10/27/2014 Hospital Encounter HX [facility] Akhil Wilson P.A.-C. [address] [place] [address] (Wo rk) Social History Tobacco [...] do you attend rastafarian or Never 2021 yarsanism services? 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 - 10/27/2014 8:11 AM CDT [id number] CHIEF COMPLAINT/REASON FOR VISIT Review of her multiple medical problems plus an ear infection. HISTORY OF PRESENT ILLNESS Gricelda is a 33-year-old female with a history of migraine headaches that have been well controlled with verapamil. She needs a refill of this. She has a history of depression that has been well controlled with citalopram as well as buspirone. She has a history of attention-deficit disorder that has been well controlled with Strattera. She has a history of gastric bypass surgery and she needs to get a refill of her vitamin B12 as well as her vitamins and minerals that she takes. She has a history of hypothyroidism that has been well controlled previously with Synthroid. She needs a TSH. She also has had an earache on the right. She said she recently was diagnosed with an ear infection and told she had a bubble on her eardrum. She was treated with amoxicillin and her symptoms have not gotten better.She continues to have ear pain. VITAL SIGNS Noted in the electronic medical record. PHYSICAL EXAMINATION GENERAL: She appears in no acute distress. ENT: There is an apparent blister on the right TM that may have burst. Minimal erythema noted on theright TM. Left TM, no erythema. Throat, no erythema. HEART: Regular rate and rhythm. No murmurs. LUNGS: Clear to auscultation. IMPRESSION/REPORT/PLAN 1. Bullous myringitis. PLAN: She may have had a blister that has since broken. I want her to take Zithromax to cover the possibility of this because the etiology is mycoplasma and is not well treated with amoxicillin. I would like her to push fluids and if her symptoms worsen or do not improve, let us know. 2. Depression and anxiety. This has been well controlled. Her PHQ-9 score was 0. I refilled her citalopram and buspirone for her. 3. Gastric bypass surgery. She recently had some pain with this. I asked her to get her records fromher gastric bypass surgeon in the [facility] so that I can have them here. She was going to work [employer] but has not yet gotten it done. I am going to check a B12 level today as well as a folic acid. Will check a vitamin D level and I will check a metabolic panel. I will notify her when I get these results. 4. Hypothyroidism. Will check a TSH and notify her with the results. Will continue on her Synthroid 75 mcg for now. 5. Knee pain. She had some chronic knee pain. I saw her for this previously. I recommend she see . She may be the appointment but missed it. She is going to reschedule this. She requested someVicodin today and I told that I would rather not prescribe this for her at this point. I want her touse Tylenol or ibuprofen and to ice her knee. She is in agreement with this plan. If any further questions or problems, she will let us know. Total time spent today with patient was 40 minutes with the majority of it in coordination of care and counseling. Oseas Wilson PA-C/caitlyn Electronically Signed By: OSEAS WILSON PA-C On: 10/27/2014 01:55 PM Source: [facility] MEG Document Id: [id number] documented in this encounter Miscellaneous Notes Miscellaneous - Oseas Wilson P.A.-C. - 10/30/2014 3:04 PM CDT Normal Results Letter 30 October 2014 GRICELDA REID [address] [place] [id number] Dear GRICELDA REID, Here is a copy of your labs as we discussed. Check with your bariatric surgeon about the possibilityof switching to oral vitamin B 12. Please let me know if you have any questions Result Name Current Result Normal Range Sodium Lvl (mmol/L) 143 10/27/2014 135 - 145 Potassium Lvl (mmol/L) 4.0 10/27/2014 3.5 - 4.8 Chloride (mmol/L) 102 10/27/2014 100 - 108 CO2 (mmol/L) 25 10/27/2014 22 - 30 Alkaline Phosphatase (unit/L) 77 10/27/2014 50 - 130 Glucose Fasting (mg/dL) (H) 105 10/27/2014 70 - 99 Creatinine (mg/dL) (L) 0.6 10/27/2014 0.7 - 1.2 EGFR (MDRD) (mL/min) >60 10/27/2014 EGFR (MDRD) (mL/min/1.73m2) >60 10/27/2014 >=60 - BUN (mg/dL) 8 10/27/2014 6 - 20 Calcium Lvl (mg/dL) 10.1 10/27/2014 8.5 - 10.5 Protein Total (mg/dL) 7.0 10/27/2014 6.3 - 8.2 Albumin Lvl (gm/dL) 4.1 10/27/2014 3.5 - 5.0 AST (unit/L) 20 10/27/2014 8 - 43 ALT (unit/L) 28 10/27/2014 9 - 52 Bili Total (mg/dL) 0.4 10/27/2014 0.1 - 1.0 Vitamin B12 Lvl (ng/L) (H) 1,113 10/27/2014 180 - 914 Folate Lvl (ng/mL) 12.1 10/27/2014 >=4.0 - TSH (mIU/L) 0.77 10/27/2014 0.27 - 4.20 25-Hydroxy D-Mcintosh (ng/mL) 30 10/27/2014 25-Hydroxy D2-Mcintosh (ng/mL) <4.0 10/27/2014 25-Hydroxy D3-Mcintosh (ng/mL) [id number] 30 10/27/2014 Hgb (g/dL) 14.1 10/27/2014 12.0 - 15.5 Hct (%) 42.3 10/27/2014 34.9 - 44.5 WBC (x10(9)/L) 9.6 10/27/2014 3.4 - 10.5 RBC (x10(12)/L) 4.62 10/27/2014 3.90 - 5.03 MCV (fL) 91.6 10/27/2014 82.0 - 98.0 RDW (%) 12.5 10/27/2014 11.9 - 15.5 Platelet (x10(9)/L) 298 10/27/2014 150 - 450 Neutro Absolute (10(9)/L) 6.37 10/27/2014 1.70 - 7.00 Lymph Absolute (x10(9)/L) 2.08 10/27/2014 0.90 - 2.90 Cooke Absolute (x10(9)/L) (H) 0.99 10/27/2014 0.30 - 0.90 Eos Absolute (x10(9)/L) 0.11 10/27/2014 0.05 - 0.50 Baso Absolute (x10(9)/L) 0.05 10/27/2014 0.00 - 0.30 Differential? Auto 10/27/2014 Sincerely, OSEAS WILSON [address] [place] [address] Electronic Signature Electronically Signed By: OSEAS WILSON PA-C On: 30 October 2014 This document has images extracted. Source: [facility] POWERCHART Document Id: [id number] Electronically signed by Conversion, [facility] Correctional Nurse [id number] at 01/05/2017 2:34 PM CDT Miscellaneous - Shyann Landry RIsiah - 10/27/2014 10:12 AM CDT *Medication Refill Msg From: SHYANN LANDRY To: OSEAS WILSON PA-C; Sent: 10/27/2014 10:12:33 CDT Subject: *Medication Refill Msg Caller is: ( ) Patient ( ) Mother ( ) Father ( ) Spouse ( ) Daughter ( ) Son ( ) Pharmacy ( ) Other: Provider: Pharmacy: [facility] Name of Medications Needing Refill:on the azithromycin sent today - additive QT interval prolongation may occur during coaministration of citalopram 40mgtabs and azithromycin 250mg tabs 6 maria eugenia. coadministration of citalopram 40mg tabs and azithromycin 250mg tabs 6 maria eugenia is not recommended. 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 Entered On: 10/27/2014 8:25 CDT Performed On: 10/27/2014 8:23 CDT by SAKINA JENSEN Intake Chief Complaint : R ear pain and refills Temperature Core : 36.1 DegC(Converted to: 97.0 DegF) (LOW) Peripheral Pulse Rate : 100 [...] 13 oz) Weight Source : Other: wt supplied by pt Dosing Weight Clinic : 87 kg Clinic BSA : 2 Body Mass Index : 31.96 kg/m2 SAKINA JENSEN 10/27/2014 8:23 CDT General Info Information Given By : Patient Languages : Turkish Is Patient Female and 13-50 no hysterectomy : No SAKINA JENSEN 10/27/2014 8:23 CDT Subjective Pain Symptoms : Yes SAKINA JENSEN 10/27/2014 8:23 CDT Pain Scale Pain Scale Verbal 0-10 : Open SAKINA JENSEN 10/27/2014 8:23 CDT Pain Pain Assessment Grid Pain 1 Location : Ear SAKINA JENSEN 10/27/2014 8:23 CDT Dependent Habits Tobacco Use/Currently Using : No Exposure to Tobacco Smoke : Other: former Smoking Status : Former smoker SAKINA JENSEN 10/27/2014 8:23 CDT Tobacco Use Grid Last Use : 1997 SAKINA JENSEN 10/27/2014 8:23 CDT Caffeine Use Grid Caffeine Use : Current Type : Chocolate, Coffee, Soft drinks Frequency : Daily Last Use : 09/07/14 SKAINA JENSEN 10/27/2014 8:23 CDT Recreational Drug Use Grid Drug Use : None SAKINA JENSEN 10/27/2014 8:23 CDT ID Screen Drug Resistant Organism : No Travel Within Last 21 Days : No Contact with someone with Ebola : No SAKINA JENSEN 10/27/2014 8:23 CDT [facility] Document Id: [id number]!49 documented in this encounter Plan of Treatment Not on filedocumented as of this encounter Procedures Procedure Name Priority Date/Time Associated Comments Diagnosis VITAMIN B12 AND Routine 10/27/2014 9:29 AM Result s for this FOLATE, S CDT procedure are i n the results section. AUTOMATED Routine 10/27/2014 9:29 AM Results f or this DIFFERENTIAL, B CDT procedure ar e in the results section. 25-HYDROXYVITAMIN D2 Routine 10/27/2014 9:29 AM R esults for this AND D3, S CDT procedure are i n the results section. CBC WITH DIFFERENTIAL, Routine 10/27/2014 9:29 AM Results for this B CDT procedure are i n the results section. THYROID-STIMULATING Routine 10/27/2014 9:29 AM Re sults for this HORMONE-SENSITIVE CDT procedure are in (S-TSH) the results section. COMPREHENSIVE Routine 10/27/2014 9:29 AM Results for this METABOLIC PANEL, S/P CDT procedu re are in the results section. documented in this encounter Results (ABNORMAL) Automated Differential (10/27/2014 9:29 AM CDT) Patholo gist Method Time Signature Absolute 6.37 1.70 - POWERCHART Neutrophils 7.00 109L Lymphocytes 2.08 0.90 - POWERCHART 2.90 X109L Monocytes 0.99 (H) 0.30 - POWERCHART 0.90 X109L Eosinophils 0.11 0.05 - POWERCHART 0.50 X109L Absolute 0.05 0.00 - POWERCHART Basophil 0.30 X109L Specimen Anatomical Collection Method Collection Time Receive d Time (Source) Location / / Volume Laterality Blood 10/27/2014 9:29 AM 5 9:29 CDT AM CDT Oseas Wilson P.A.-C. LAB BLOOD ADD-ON Performing Organization Address City/State/ZIP Code Phon e Number POWERCHART CBC with Differential (10/27/2014 9:29 AM CDT) P athologist Signature Leukocytes 9.6 3.4 - 10.5 POWERCHART X109L Erythrocytes 4.62 3.90 - POWERCHART 5.03 [id number] Hemoglobin 14.1 12.0 - POWERCHART 15.5 GDL Hematocrit 42.3 34.9 - POWERCHART 44.5 MCV 91.6 82.0 - POWERCHART 98.0 FL Platelet Count 298 150 - 450 POWERCHART X109L HX RDW 12.5 11.9 - POWERCHART 15.5 HXDifferential? Auto POWERCHART Specimen (Source) Anatomical Collection Method Collection Time Re ceived Time Location / / Volume Laterality Blood 10/27/2014 9:29 AM CDT Oseas Wilson P.A.-C. LAB BLOOD ADD-ON Performing Organization Address City/State/ZIP Code Phon e Number POWERCHART (ABNORMAL) CMP (Comprehensive Metabolic Panel) (10/27/2014 9:29 AM CDT) Patholo gist Method Time Signature BUN (Blood Urea 8 6 - 20 POWERCHART Nitrogen), S MGDL Creatinine 0.6 (L) 0.7 - 1.2 POWERCHART MGDL Potassium, S 4.0 3.5 - 4.8 POWERCHART MMOLL Sodium, S 143 135 - 145 POWERCHART MMOLL Chloride, S 102 100 - 108 POWERCHART MMOLL CO2 Total 25 22 - 30 POWERCHART MMOLL Calcium, Total, S 10.1 8.5 - POWERCHART 10.5 MGDL Albumin, S 4.1 3.5 - 5.0 POWERCHART GMDL Alkaline 77 50 - 130 POWERCHART Phosphatase, S UNITL Aspartate 20 8 - 43 POWERCHART Aminotransferase UNITL (AST), S Alanine 28 9 - 52 POWERCHART Amniotransferase, LD UNITL Bilirubin, Total, S 0.4 0.1 - 1.0 POWERCHART MGDL Total Protein, S 7.0 6.3 - 8.2 POWERCHART MGDL HXeGFR (MDRD) >60 MLMIN POWERCHART eGFR Black/ >60 >=60 POWERCHART Bel[place] [id number] 2 Glucose, Fasting, S 105 (H) 70 - 99 POWERCHART MGDL Specimen (Source) Anatomical Collection Method Collection Time Re ceived Time Location / / Volume Laterality Blood 10/27/2014 9:29 AM CDT Oseas Wilson P.A.-C. LAB BLOOD ADD-ON Performing Organization Address City/State/ZIP Code Phon e Number POWERCHART Thyroid-Stimulating Hormone-Sensitive (s-TSH) (10/27/2014 9:29 AM CDT) P athologist Signature TSH 0.77 0.27 - 4.20 POWERCHART (Thyrotropin) MIUL Specimen (Source) Anatomical Collection Method Collection Time Re ceived Time Location / / Volume Laterality Blood 10/27/2014 9:29 AM CDT Oseas Wilson P.A.-C. LAB BLOOD ADD-ON Performing Organization Address City/State/ZIP Code Phon e Number POWERCHART (ABNORMAL) Vitamin B12 Level and Folate (10/27/2014 9:29 AM CDT) P athologist Signature Vitamin B12 1113 (H) 180 - 914 POWERCHART Assay, S NGL Folate, S 12.1 >=4.0 NGML POWERCHART Specimen (Source) Anatomical Collection Method Collection Time Re ceived Time Location / / Volume Laterality Blood 10/27/2014 9:29 AM CDT Oseas Wilson P.A.-C. LAB BLOOD NON ADD-ON Performing Organization Address City/[facility] Code Phon e Number POWERCHART 25-Hydroxyvitamin D2 and D3 (10/27/2014 9:29 AM CDT) P athologist Signature HX25 HYDROXY D2 <4.0 NGML POWERCHART 25-Hydroxy D3 30 NGML POWERCHART Vitamin D, S 30 NGML POWERCHART Comment: REFERENCE VALUE------ 25-HYDROXY D TOTAL (D2+D3) Optimum level s in the healthy population are 20-50, patients with bone disease may benefit from higher levels within this r elsie. Test Performed by: [place] [address] Waiter/Waitress: Alfonzo Nieves II, M.D., Ph.D. Specimen (Source) Anatomical Collection Method Collection Time Re ceived Time Location / / Volume Laterality Blood 10/27/2014 9:29 AM CDT Oseas Wilson P.A.-C. LAB BLOOD ADD-ON Performing Organization Address City/State/[facility] Code Phon e Number POWERCHART documented in this encounter Visit Diagnoses Not on filedocumented in this encounter
--- OUTSIDE RECORDS SUMMARY | 2022-04-10 15:04 | XMS_ITS | Encounter Summary ---
:1980 Author [facility] Address [address] [place] [address] Care Team Providers Name Role Phone Unassigned, Provider Primary Care Provider Unavailable Encounter Details Date Type Department Care Team Description 10/04/2006 Office Visit [facility] [place] [address] [address] [place] [address] [place] [address] [phone] Social History Tobacco Use Types Packs/Day Years Used Date Smoking Tobacco: Never Assessed Sex Assigned at Date Recorded Not on file documented as of this encounter Last Filed Vital Signs Vital Sign Reading Time Taken Comments Blood Pressure 119/81 10/04/2006 4:08 PM MULTIPLE TUBE WINDING MACHINE OPERATOR Pulse 106 10/04/2006 4:08 PM MULTIPLE TUBE WINDING MACHINE OPERATOR Temperature 36.8 ??C (98.2 ??F) 10/04/2006 4:08 PM ORAL C: 3 6.8 C MULTIPLE TUBE WINDING MACHINE OPERATOR Respiratory Rate 24 10/04/2006 4:08 PM MULTIPLE TUBE WINDING MACHINE OPERATOR Oxygen Saturation - - Inhaled Oxygen Concentration - - Weight - - Height - - Body Mass Index - - documented in this encounter Progress Notes Nemesio Salomon MD - 10/04/2006 12:01 AM CST Progress Notes signed by Nemesio Salomon MD at 10/08/06 9008 Author: Nemesio Salomon MD Service: (none) Author Type: Physician Filed: 11/29/10 1902 Note Time: 10/04/06 0001 Status: Signed Bank Sales And Service Manager: Nemesio Salomon MD (Physician) NAME: MUKUL REID MR#: [id number] ACCT: [id number] VISIT: [id number] DICTATING CLINICIAN: Nemesio Salomon MD JOB: [id number] LOC: 520 CLINIC PROGRESS NOTE DATE OF VISIT: 10/04/2006 SUBJECTIVE: : 1980. A 25-year-old white female who is at 32-weeks . She reports she slipped on the ice and turned her left ankle. She was able to catch herself, but she did hear a popping, cracking sensation in her left ankle before she caught herself. She reports significant pain when bearing weight, although she is able to take full weight on the ankle at this time. REVIEW OF SYSTEMS: She has not had any other injury. Currently there are no problems with the care. She reports the injury occurred exactly 2 hours before examining here in the urgent care at [place]. OBJECTIVE: VS: BP: 118/81. T: 98. P: 100. R: 24. This distal ankle is swollen over the lateral malleolus. There is some ecchymosis there. She is exquisitely tender over the malleolus and slightly above it. The ankle mortise though is stable to confrontation. Dorsal foot sensation and reflex is intact. Achilles intact. Heel nontender. X-ray examination without fracture in the ankle joint. The ankle mortise is straight. ASSESSMENT: Ankle sprain, first to second degree. PLAN: Patient placed in an ankle immobilizer and she has crutches at home which she will use. She reports several ankle sprains in the past. No fractures though. Patient to follow up with primary care in 2 weeks if still having difficulty ambulating on that ankle. Gradual weightbearing to begin when swelling goes down. TEL:[id number] C: 10/05/06 14:09 DOCUMENT: [id number] IPLE TUBE WINDING MACHINE OPERATOR documented in this encounter Plan of Treatment Not on filedocumented as of this encounter Procedures Procedure Name Priority Date/Time Associated Diagnosis Comme nts XR ANKLE LT 3 VIEWS Routine 10/04/2006 4:48 PM Re sults for this MULTIPLE TUBE WINDING MACHINE OPERATOR procedure are i n the results section. documented in this encounter Results XR Ankle Lt 3 Views (10/04/2006 4:48 PM MULTIPLE TUBE WINDING MACHINE OPERATOR) Anatomical Region Laterality Modality Lower Extremity, Ankle, Foot & Ankle Oth er Specimen (Source) Anatomical Location Collection Method / Collectio n Time Received Time / Laterality Volume Narrative 10/04/2006 4:48 PM MULTIPLE TUBE WINDING MACHINE OPERATOR Soft tissue swelling laterally. Otherwise ankle unremarkable. [id number] Dictating NORMAN ORR MD Procedure Note Norman Contreras - 10/10/2016 Soft tissue swelling laterally. Otherwis e ankle unremarkable. [id number] Dictating NORMAN ORR MD Nemesio Salomon MD RAD GD documented in this encounter Visit Diagnoses Not on filedocumented in this encounter Care Teams Various Exceptionalities Teacher Relationship Specialty Start Date End Date Unassigned, Provider PCP - General 10/22/[address] [place] [address] documented as of this encounter
--- OUTSIDE RECORDS SUMMARY | 2022-04-10 15:04 | XMS_ITS | Encounter Summary ---
:1980 Author [facility] [address] [place] [address] Care Team Providers Name Role Phone Unassigned, Provider Primary Care Provider Unavailable Reason for Visit Procedure/Equipment (Routine) - Incomplete Specialty Diagnoses / Procedures Referred By Contact Refer red To Contact Diagnoses Chronic pain of both knees Rick Morley MD Procedures XR Knee Bilat 3 Views XR Knee Rt 3 Views [address] [place] [address] Referral ID Status Reason Start Date Expiration Date Visits V isits Requested Authorized [id number] Incomplete 10/29/2020 01/28/2022 1 1 Encounter Details Date Type Department Care Team Description 10/29/2020 [facility] Rick Samayoa Chronic darin n of both Procedure Donny 20006 MD Ralph knees Radiology [address] [place] [address] [place], [place] [address] [address] [place], [place] [phone] (Work) [phone] Social History Tobacco Use Types Packs/Day Years Used Date Smoking Tobacco: Never Alcohol Use Standard Drinks/Week Comments Not Asked 0 (1 standard drink = 0.6 oz pure alcoho l) Sex Assigned at Date Recorded Not on file documented as of this encounter Plan of Treatment Not on filedocumented as of this encounter Procedures Procedure Name Priority Date/Time Associated Diagnosis Comme nts XR KNEE BILAT 3 Routine 10/29/2020 2:45 PM Chronic pain of bot h Results for this VIEWS CDT knees procedure are i n the results section. documented in this encounter Results XR Knee Bilat 3 Views (10/29/2020 2:45 PM CDT) Anatomical Region Laterality Modality Lower Extremity, Knee Digital Radiograph y Specimen (Source) Anatomical Collection Method Collection Time Re ceived Time Location / / Volume Laterality 10/29/2020 2:40 PM CDT Impressions 10/29/2020 3:17 PM CDT COMPARISON: ??09/03/2020 FINDINGS: ??No acute or significant bone or joint abnormality of the bilateral knees is identified. ??Alignment is unremarkable. Impression: No acute finding. Procedure Note OncAlex espinoza MD - 10/29/2020Forma tting of this note might be different from the original. IMPRESSION COMPARISON: 09/03/2020 FINDINGS: No acute or significant bone o r joint abnormality of the bilateral knees is identified. Alignment is unremarkable. Impression: No acute finding. Rick Morley MD RAD GD documented in this encounter Visit Diagnoses Diagnosis Chronic pain of both knees documented in this encounter Care Teams Automobile Mechanic Assistant Relationship Specialty Start Date End Date Unassigned, Provider PCP - General 10/22/[address] [place] [address] documented as of this encounter
--- OUTSIDE RECORDS SUMMARY | 2022-04-10 15:04 | XMS_ITS | Encounter Summary ---
:1980 Author Organization [facility] Address [address] [place] [address] Care Team Providers Name Role Phone Unassigned, Provider Primary Care Provider Unavailable Reason for Visit Reason Comments Procedure Encounter Details Date Type Department Care Team Description 09/10/2017 Procedure Visit [facility] [address] Alex De La Cruz ra Procedure Surgery [address] [place] [address] Social History Tobacco Use Types Packs/Day Years Used Date Smoking Tobacco: Never Alcohol Use Standard Drinks/Week Comments Not Asked 0 (1 standard drink = 0.6 oz pure alcoho l) Sex Assigned at Date Recorded Not on file documented as of this encounter Progress Notes Nicole De La Cruz - 09/10/2017 3:00 PM CST . She has come in today for the harmony facial. Her skin is in good condition. I see no signs of sensitivity or reason why she is not a candidate for a facial. She is not on any medication that are contraindicated for facial treatments. Her Skin type is oliy Guanaco III I see no skin conditions No charge today T TOUR GUIDE documented in this encounter Plan of Treatment Not on filedocumented as of this encounter Visit Diagnoses Diagnosis Facial aging - Primary Other symptoms involving skin and integu mentary tissues documented in this encounter Care Teams Government Guard Relationship Specialty Start Date End Date Unassigned, Provider PCP - General 10/22/06 [address] [place] [address] documented as of this encounter
--- OUTSIDE RECORDS SUMMARY | 2022-04-10 15:04 | XMS_ITS | Encounter Summary ---
:1980 Author Organization [facility] Address [address] [place] [address] Care Team Providers Name Role Phone Unassigned, Provider Primary Care Provider Unavailable Encounter Details Date Type Department Care Team Description 12/12/2010 PN Conversion Only CONVERSION CONVERSION Social History Tobacco Use Types Packs/Day Years Used Date Smoking Tobacco: Never Alcohol Use Standard Drinks/Week Comments Not Asked 0 (1 standard drink = 0.6 oz pure alcoho l) Sex Assigned at Date Recorded Not on file documented as of this encounter Plan of Treatment Not on filedocumented as of this encounter Visit Diagnoses Not on filedocumented in this encounter Care Teams Ict Business Analyst Relationship Specialty Start Date End Date Unassigned, Provider PCP - General 10/22/[address] [place] [id number] documented as of this encounter
--- OUTSIDE RECORDS SUMMARY | 2022-04-10 15:04 | XMS_ITS | Encounter Summary ---
:1980 Author Organization [facility] Address [address] [place] [address] Care Team Providers Name Role Phone Unassigned, Provider Primary Care Provider Unavailable Encounter Details Date Type Department Care Team Description 10/04/2006 PN Conversion Only TUJUNGA CONVERSIO [address] [address] [place] [address] Social History Tobacco Use Types Packs/Day Years Used Date Smoking Tobacco: Never Assessed Sex Assigned at Date Recorded Not on file documented as of this encounter Plan of Treatment Not on filedocumented as of this encounter Visit Diagnoses Not on filedocumented in this encounter Care Teams Quill Skinner Relationship Specialty Start Date End Date Unassigned, Provider PCP - General 10/22/06 [address] [place] [address] documented as of this encounter
--- OUTSIDE RECORDS SUMMARY | 2022-04-10 15:04 | XMS_ITS | Encounter Summary ---
:1980 Author Organization [facility] Address [address] [place] [address] Care Team Providers Name Role Phone Unassigned, Provider Primary Care Provider Unavailable Encounter Details Date Type Department Care Team Description 10/22/2006 Correspondence None Germán Copeland, Provider consent to release Social History Tobacco Use Types Packs/Day Years Used Date Smoking Tobacco: Never Alcohol Use Standard Drinks/Week Comments Not Asked 0 (1 standard drink = 0.6 oz pure alcoho l) Sex Assigned at Date Recorded Not on file documented as of this encounter Progress Notes Germán Copeland, Provider - 10/22/2006 12:00 AM CDT documented in this encounter Plan of Treatment Not on filedocumented as of this encounter Visit Diagnoses Not on filedocumented in this encounter Care Teams Registered Nurse Midwife Relationship Specialty Start Date End Date Unassigned, Provider PCP - General 10/22/[address] [place] [address] documented as of this encounter
--- OUTSIDE RECORDS SUMMARY | 2022-04-10 15:04 | XMS_ITS | Encounter Summary ---
:1980 Author Organization [facility] Address [address] [place] [address] Care Team Providers Name Role Phone Unassigned, Provider Primary Care Provider Unavailable Reason for Visit Reason Comments Prior Authorization For Imaging Left knee Encounter Details Date Type Department Care Team Description 10/31/2020 Telephone Rick Fortune, Prior Authorization For Orthopaedics & Sports MD Imaging (Left knee) Medicine [address] [place] [address] [place] [phone] Social History Tobacco Use Types Packs/Day Years Used Date Smoking Tobacco: Never Alcohol Use Standard Drinks/Week Comments Not Asked 0 (1 standard drink = 0.6 oz pure alcoho l) Sex Assigned at Date Recorded Not on file documented as of this encounter Nursing Notes Jane Stevenson OA - 10/31/2020 10:50 AM CDT Called and left a message for the patient that the prior authorization came back with a denial. Her insurance stated this patient isn???t allowed to make anymore appointments within [facility]. They have to stay in their network. I also let her know that she can have the MRI and see Dr. Morley in the future but it would be all out of pocket cost. I left the [facility] number for her to call back if she has questions. documented in this encounter Plan of Treatment Not on filedocumented as of this encounter Visit Diagnoses Not on filedocumented in this encounter Care Teams Punch Press Operator Helper Relationship Specialty Start Date End Date Unassigned, Provider PCP - General 10/22/06 [address] [place] [address] documented as of this encounter
--- OUTSIDE RECORDS SUMMARY | 2022-04-10 15:04 | XMS_ITS | Encounter Summary ---
:1980 Author Organization [facility] Address [address] [place] [address] Care Team Providers Name Role Phone Unassigned, Provider Primary Care Provider Unavailable Reason for Visit Procedure/Equipment (Routine) - Incomplete Specialty Diagnoses / Procedures Referred By Contact Refer red To Contact Procedures Provider, Foreign Images Foreign Image(S) XR knee Lt [address] [place] [address] Referral ID Status Reason Start Date Expiration Date Visits V isits Requested Authorized [id number] Incomplete 10/22/2020 01/21/2022 1 1 Encounter Details Date Type Department Care Team Description 09/03/2020 Ancillary Procedure [facility] Radiology PACS Provider, Foreign [address] [place] [address] [address] [place] [address] Social History Tobacco Use Types Packs/Day Years Used Date Smoking Tobacco: Never Alcohol Use Standard Drinks/Week Comments Not Asked 0 (1 standard drink = 0.6 oz pure alcoho l) Sex Assigned at Date Recorded Not on file documented as of this encounter Plan of Treatment Not on filedocumented as of this encounter Procedures Procedure Name Priority Date/Time Associated Diagnosis Comme nts FOREIGN IMAGE(S) XR Routine 09/03/2020 8:10 AM Re sults for this KNEE LT MANAGER BEHAVIORAL procedure are i n the results section. documented in this encounter Results Foreign Image(S) XR knee Lt (09/03/2020 8:10 AM MANAGER BEHAVIORAL) Specimen (Source) Anatomical Location Collection Method / Collectio n Time Received Time / Laterality Volume Narrative POCT - 10/22/2020 8:09 AM CDT These outside images have been uploaded into PACS. If the results were provided, they will be located in the [facility]'s chart under the Media or Imaging tab. Foreign Images Provider RAD NON-REPORTABLES Performing Organization Address City/State/ZIP Code Phon e Number POCT documented in this encounter Visit Diagnoses Not on filedocumented in this encounter Care Teams Ham Marker Relationship Specialty Start Date End Date Unassigned, Provider PCP - General 10/22/06 [address] [place] [address] documented as of this encounter
--- OUTSIDE RECORDS SUMMARY | 2022-04-10 15:04 | XMS_ITS | Encounter Summary ---
:[address] [facility] Address [address] [place] [address] Care Team Providers Name Role Phone Unassigned, Provider Primary Care Provider Unavailable Reason for Visit Reason Comments SWELLING, FOOT Encounter Details Date Type Department Care Team Description 10/22/2006 Office Visit [facility] (Primary Dx) [place] [id number] [place] [phone] Social History Tobacco Use Types Packs/Day Years Used Date Smoking Tobacco: Never Alcohol Use Standard Drinks/Week Comments Not Asked 0 (1 standard drink = 0.6 oz pure alcoho l) Sex Assigned at Date Recorded Not on file documented as of this encounter Last Filed Vital Signs Vital Sign Reading Time Taken Comments Blood Pressure 120/80 10/22/2006 9:20 PM CDT Pulse 100 10/22/2006 9:20 PM CDT Temperature 37 ??C (98.6 ??F) 10/22/2006 9:20 PM CDT Respiratory Rate 10 10/22/2006 9:20 PM CDT Oxygen Saturation - - Inhaled Oxygen Concentration - - Weight - - Height - - Body Mass Index - - documented in this encounter Progress Notes Hiro Galdamez - 10/22/2006 9:39 PM CDT SUBJECTIVE: Gricelda Roberts is a 25 yr female who sustained a left foot injury 3 weeks ago. Mechanism of injury: inversion twist. Immediate symptoms: immediate pain, immediate swelling. Symptoms have been unchanged since that time. Prior history of related problems: no prior problems with this area in the past. She is 356 weeks OBJECTIVE: Vital signs as noted above. Appearance: well developed and well nourished, non-toxic in appearance and in no respiratory distress and not cyanotic. Foot/ankle exam: soft tissue swelling and tenderness over the base of 5th metatarsal, soft tissue swelling and tenderness at the midfoot. X-ray: no fracture or dislocation noted. ASSESSMENT: Left foot sprain and contusion PLAN: apply ice packs, elevate the injured limb, compressive bandage,Post-op shoe dispensed and applied Hiro Galdamez MD documented in this encounter Procedure Notes Elio Avila - 10/22/2006 12:00 AM CDTAssociated Order(s): FOOT 3 VIEWS (STANDARD) CLINICAL DATA: INDICATION: Twisted 3 weeks ago. EXAMINATION: LEFT FOOT: 10/22/06 FINDINGS: Soft tissue swelling. The bones are normal. No fracture. CONCLUSION: Negative for fracture. Allen Sal MD P cc: Radiology AV ADULT AVUCC documented in this encounter Plan of Treatment Not on filedocumented as of this encounter Procedures Procedure Name Priority Date/Time Associated Diagnosis Comme nts RADEX FOOT COMPL Routine 10/22/2006 Foot Injury Results for this MINIMUM 3 VIEWS procedure ar e in the results section . documented in this encounter Results FOOT, AP, OBLIQUE and LAT (Standard) (10/22/2006) Anatomical Region Laterality Modality Other Transcriptions Elio Avila - 10/22/2006 12:00 AM C DT CLINICAL DATA: INDICATION: Twisted 3 weeks ago. EXAMINATION: LEFT FOOT: 10/22/06 FINDINGS: Soft tissue swelling. The bon es are normal. No fracture. CONCLUSION: Negative for fracture. Allen Sal MD P cc: Radiology AV ADULT AVUCC Hiro Galdamez MD RAD_1 documented in this encounter Visit Diagnoses Diagnosis Foot injury - Primary Injury, other and unspecified, knee, leg , ankle, and foot documented in this encounter Care Teams Market Risk Analyst Relationship Specialty Start Date End Date Unassigned, Provider PCP - General 10/22/[address] [place] [address] documented as of this encounter
--- OUTSIDE RECORDS SUMMARY | 2022-04-10 15:04 | XMS_ITS | Encounter Summary ---
:1980 Author [facility] Address [address] [place] [address] Care Team Providers Name Role Phone Unassigned, Provider Primary Care Provider Unavailable Reason for Referral Procedure/Equipment (Routine) - Incomplete Specialty Diagnoses / Procedures Referred By Contact Refer red To Contact Diagnoses Patellofemoral arthritis of left knee Rick Carrington MD Procedures Edmond/Lateral J Knne brace(L1812) [address] [place] [address] Referral ID Status Reason Start Date Expiration Date Visits V isits Requested Authorized [id number] Incomplete 10/29/2020 01/28/2022 1 1 Procedure/Equipment (Routine) - Incomplete Specialty Diagnoses / Procedures Referred By Contact Refer red To Contact Diagnoses Chronic pain of both knees Rick Carrington MD Procedures Edmond/Lateral J Knne brace([id number]) [address] [place] [address] Referral ID Status Reason Start Date Expiration Date Visits V isits Requested Authorized [id number] Incomplete 10/29/2020 01/28/2022 1 1 Reason for Visit Reason Comments CONSULT bilateral knee pain Encounter Details Date Type Department Care Team Description 10/29/2020 Office Visit Rick Fortune p ain of both knees (Primary Dx); Orthopaedics & Sports MD Ralph Patellofemoral arthritis of left knee Medicine [address] [address] [place] [phone] Social History Tobacco Use Types Packs/Day Years [...] - Inhaled Oxygen Concentration - - Weight 65.3 kg (144 lb) 10/29/2020 2:28 PM CDT Height 162.6 cm (5' 4) 10/29/2020 2:28 PM CDT Body Mass Index 24.72 10/29/2020 2:28 PM CDT documented in this encounter Progress Notes Rick Carrington MD - 10/29/2020 12:00 PM CDT NAME: MUKUL REID MR#: [id number] CSN: [id number] AUTHENTICATING CLINICIAN: RICK CARRINGTON MD CONFIRM #: [id number] LOC: 711 CLINIC PROGRESS NOTE DATE OF VISIT: 10/29/2020 : 1980 ID: A 39-year-old female presents today for bilateral left greater than right knee pain for several years. HPI: Mukul Reid is a pleasant 39-year-old female who presents today for bilateral left greater than right knee pain. She states the pain is mostly localized around her kneecap and within the patellar tendon. She has had pain for several years. She underwent bariatric surgery in 2011 and subsequently lost a significant amount of weight. She was hoping that her knee pain would improve with her weight loss, but it has now been persistent despite her now being at a normal weight. She has also had several injections including both steroid and hyaluronic acid. These provide temporary relief for a few weeks, but then her pain recurs. She has also done a formal course of physical therapy, most recently 2 years ago, without significant relief. She also notes a sensation of locking in her knee, where she requires a specific movement to unlock the knee. She is concerned that there may be something stuck in the knee. PAST MEDICAL HISTORY: She has a history of weight changes, dentures, urinary frequency, arthritis, headaches, seizures. PAST SURGICAL HISTORY: Documented with the patient and in the new patient questionnaire. MEDICATIONS: Documented with the patient and in the new patient questionnaire. ALLERGIES: Documented with the patient and in the new patient questionnaire. FAMILY HISTORY: Documented with the patient and in the new patient questionnaire. REVIEW OF SYSTEMS: Documented with the patient and in the new patient questionnaire. SOCIAL HISTORY: The patient is a nonsmoker. She is not currently employed. 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 EXAM: GENERAL: Patient is alert, oriented, in no acute distress. LUNGS: She has nonlabored breathing at rest. RIGHT KNEE: On examination of the patient's right knee, she has a trace effusion. She has mild patellofemoral crepitus without pain with patellar grind. She has 2+ medial and lateral patellar glide. She has knee flexion from 0 to 130 degrees of flexion. She has no focal medial or lateral joint line tenderness to palpation. She has a Armand grade 1A, negative posterior drawer, negative varus and valgus stress test at both 0 and 30 degrees of flexion. LEFT KNEE: On examination of the patient's left knee, she has a trace effusion. She has moderate patellofemoral crepitus. She has tenderness to palpation of both the medial and lateral patellar facets.She also has a positive patellar grind test. She also has tenderness to palpation over the distal aspect of the patellar tendon. No focal medial or lateral joint line tenderness to palpation. No palpable Norris cyst. She has range of motion from 2 degrees to 125 degrees. She has a Armand grade 1A, negative posterior drawer, negative varus and valgus stress test at both 0 and 30 degrees of flexion. Negative Brianne's to both varus and valgus load. IMAGING STUDIES: Imaging consisting of 3 views of the bilateral knees were reviewed today with the patient. These demonstrate no clear joint space narrowing, osseous deformities. ASSESSMENT: A 39-year-old female with bilateral anterior knee pain consistent with early patellofemoral arthritis, with concern for possible loose body due to mechanical symptoms. PLAN: As the patient has now failed several years of nonoperative management, including multiple injections and a course of physical therapy, I feel that it is prudent to pursue an MRI scan of the left knee to rule out any loose body and to better evaluate for the cartilage of the patellofemoral joint. We will also look for any meniscal tears or other cartilage injuries. Following the MRI scan, the patientwill see me back to review these images, and determine a further treatment course at that time. Total time spent on visit is 35 minutes including non gxun-al-vrgd time. KIMBERLY:TORRIE C: R:10/29/20 15:56 CONFIRM#:[id number] documented in this encounter Plan of Treatment Not on filedocumented as of this encounter Visit Diagnoses Diagnosis Chronic pain of both knees - Primary Patellofemoral arthritis of left knee documented in this encounter Care Teams Channel Marketing Manager Relationship Specialty Start Date End Date Unassigned, Provider PCP - General 10/22/[address] [place] [address] documented as of this encounter
--- OUTSIDE RECORDS SUMMARY | 2022-04-10 15:04 | XMS_ITS | Clinical Summary ---
:1980 Author Organization [facility] Address [address] [place] [address] Care Team Providers Name Role Phone Unassigned, Provider Primary Care Provider Unavailable Source Comments You are receiving this document as you are listed as the primary care provider,follow-up provider, or the patient has been referred to you for consultation.This is in compliance with the Medicare and Medicaid EHR Incentive Program,which states Providers who transition their patient to another setting of careor provider of care or refers their patient to another provider of care shouldprovide summarycare record for each transition of care or referral. [employer] Allergies Active Allergy Reactions Severity Noted Date Comments Hydrocodone Bitartrate 10/22/2006 Morphine And Related 10/22/2006 Medications Medication Sig Dispensed Refills Start Date End Date Status 19 OR None Entered 0 Ac tive TABSIndications: Foot injury Vit-Fe Take 1 tablet by 30 6 10/04/2006 Active Fumarate-FA ( mouth daily (every OR) 24 hours). adapalene (DIFFERIN) Apply topically. 0 Active 0.1 % cream atomoxetine TAKE ONE CAPSULE BY 0 10/12/2020 Active (STRATTERA) 80 MG MOUTH EVERY DAY capsule atomoxetine Take 80 mg by mouth 0 10/15/2020 Active (STRATTERA) 80 MG daily. capsule busPIRone (BUSPAR) 30 TAKE 1 TABLET(30 MG) 0 020 Active MG tablet BY MOUTH TWICE DAILY busPIRone (BUSPAR) 30 0 10/15/2020 Active MG tablet cetirizine (ZYRTEC) Take 10 mg by mouth. 0 Active 10 MG tablet cyanocobalamin INJECT 1ML 0 10/11/2020 Act jennie ([id number]) 1000 INTRAMUSCULARLY MCG/ML injection EVERY MONTH cyclobenzaprine Take 5-10 mg by 0 05/04/2020 Active (FLEXERIL) 10 MG mouth. tablet cyclobenzaprine Take 5-10 mg by 0 09/03/2020 Active (FLEXERIL) 5 MG mouth. tablet cyclobenzaprine TAKE 1 TO 2 TABLETS 0 09/03/2020 Active (FLEXERIL) 5 MG BY MOUTH THREE TIMES tablet DAILY NEEDED FOR MUSCLE SPASM doxylamine succinate Take 50 mg by mouth. 0 Active (UNISOM) 25 MG tablet escitalopram oxalate Take 20 mg by mouth. 0 Active (LEXAPRO) 20 MG tablet escitalopram oxalate Take 20 mg by mouth 0 1 Active (LEXAPRO) 20 MG daily. tablet fluticasone 30 mcg by Nasal 0 Ac tive propionate (FLONASE) route. 50 MCG/ACT nasal solution gabapentin Take 900 mg by 0 06/26/2020 Act jennie (NEURONTIN) 300 MG mouth. capsule gabapentin TAKE 3 CAPSULES BY 0 10/15/2020 Active (NEURONTIN) 300 MG MOUTH THREE TIMES capsule DAILY levETIRAcetam 0 09/30/2020 Activ e (KEPPRA) 500 MG tablet levETIRAcetam Take 500 mg by 0 06/22/2020 Active (KEPPRA) 500 MG mouth. tablet nystatin-triamcinolon Apply 0.5 Inches 0 Active e (MYCOLOG-II) topically. 288838-9.1 UNIT/GM-% cream omega-3 fatty acids Take 1 g by mouth. 0 Active (FISH OIL) 1000 MG capsule pantoprazole daily. 0 07/13/2020 Active (PROTONIX) 40 MG tablet pantoprazole 0 10/07/2020 Active (PROTONIX) 40 MG tablet SUMAtriptan (IMITREX) Take 100 mg by 0 Active 100 MG tablet mouth. topiramate (TOPAMAX) Take 100 mg by 0 Active 100 MG tablet mouth. topiramate (TOPAMAX) 0 10/15/2020 Active 100 MG tablet trospium (SANCTURA) Take 20 mg by mouth. 0 1 Active 20 MG tablet trospium (SANCTURA) 0 10/15/2020 Active 20 MG tablet ZOLMitriptan (ZOMIG) Take by mouth. 0 Active 5 MG tablet diazePAM (VALIUM) 5 Pt to bring with to 1 Tablet 0 10/29/2020 Active MG tabletIndications: appt. Do not take Patellofemoral prior to arrival. arthritis of left MRI staff will knee instruct when to take med. Social History Tobacco Use Types Packs/Day Years Used Date Smoking Tobacco: Never Alcohol Use Standard Drinks/Week Comments Not Asked 0 (1 standard drink = 0.6 oz pure alcoho l) Sex Assigned at Date Recorded Not on file Last Filed Vital Signs Vital Sign Reading [...] Mass Index 24.72 10/29/2020 2:28 PM CDT Plan of Treatment Health Maintenance Due Date Last Done Comments Cervical Cancer Screening 1980 Due Hep C Screening (Preventive 1980 Services) HepB (1) 1980 COVID-19 Vaccine (#1) 05/14/1982 HIV Screening (Preventive 1997 Services) Adult Preventive Visit 11/13/1999 Influenza (#1) 2022 06/21/2020, 05/02/2019, 05/02/2019, Additional history exists DTaP/Tdap/Td (3 - Tdap) 11/03/2027 11/02/2017, 03/20/2007, 03/20/2007 Zoster/Shingles (1 of 2) 11/13/2031 HPV Vaccine Aged Out No longer eligib le based on patient 's age to complete this topic HepA Aged Out No longer eligib le based on patient 's age to complete this topic Hib Aged Out No longer eligib le based on patient 's age to complete this topic IPV (Polio) Aged Out No longer eligib le based on patient 's age to complete this topic MCV4 Aged Out No longer eligib le based on patient 's age to complete this topic Pneumococcal Aged Out No longer eligib michael based on patient 's age to complete this topic Insurance Payer Benefit Plan Subscriber ID Effective Phone Address Typ e / Group Dates [facility] [id number] 2020-Oli [phone] [facility] [address] [facility] [address] [place] [id number] Gricelda Roberts Personal/Family Self [address] (Home) [place] [address] Gricelda Roberts Personal/Family Self [address] (Home) [place] [phone] Gricelda Roberts Non-Covered/Pre Self [address] pay (Home) [place] [phone] Care Teams Building Estimator Relationship Specialty Start Date End Date Unassigned, Provider PCP - General 10/22/06 [address] [place] [address]
[2022-04-10 23:22] LABS: SARS PCR* Negative SARS-CoV-2 (Negative)
== END 2022-04-10 14:39 | disposition home or self-care (01) ==
LOC: KYNREF 14:38
PROVIDERS: PCP Nurse Practitioner Family; Visit Provider Nurse Practitioner Family
DX: Z20.822 Contact with and (suspected) exposure to COVID-19 (principal); J02.9 Acute pharyngitis, unspecified
CPT/HCPCS: 87635; 87651

== ENCOUNTER 2022-04-29 07:20 | Outpatient (CLI) | payer OTHER, SELFPAY ==
--- OUTSIDE RECORDS SUMMARY | 2022-04-29 07:23 | XMS_ITS | Clinical Summary ---
:1980 Author Organization [employer] [facility] [place] [address] Care Team Providers Name Role Phone Matheus Feliciano Primary Care Provider [phone] Allergies Active Allergy Reactions Severity Noted Date [...] 01/22/2022 Activ e (KEPPRA) 500 mg tablet otjpnqti-zbdxyziwn-bf ADMINISTER 2 DROPS 0 2 Active drocortisone [...] Major depression, recurrent (Sees Dr. Tc Segal, [place]) 10/13/2011 Morbid obesity - post bypass. 06/11/2010 Hypothyroid Chronic low back pain Resolved Problems Problem Noted Date Resolved Date Unspecified hypothyroidism 06/11/2010 07/22/2010 Presence of intrauterine contraceptive device (IUD) Mirina 1 08/11/2009 04/08/2011 05/10/2010 Menorrhagia - severe (IUD treatment) 06/11/2010 Overview: Had Progesterone IUD placed specifically as treatment (tubal ligation) Encounters Date Type Specialty Care Team Description 04/16/2022 Transcribe Orders Cisco De Souza MD 03/11/2022 Orders Only Scanner <No scans attac hed> from Last 3 Months Immunizations Name Administration Dates Next Due Imovax 08/18/2018, 08/11/2018, 08/07/2018, 08/04/2018 Influenza, IIV3 (Age >=3 years) 06/17/2013 Tdap 11/02/2017, 03/20/2007 Family History Medical History Relation Name Comments Good Health Brother 3 Good Health Brother 4 Good Health Daughter 3 Good Health Daughter 4 Hypertension Father Heart Disease Maternal Grandfather [place] and age 40. Heart Disease Mother Recent stress te st revealed blockage Heart Disease Paternal Grandfather [place] age 30's (maybe) Heart Disease Paternal Grandmother [...] 165.1 cm (5' 5) 07/02/2021 2:40 PM SUPERVISOR AIRCRAFT CLEANING Body Mass Index 26.09 07/02/2021 2:40 PM SUPERVISOR AIRCRAFT CLEANING Plan of Treatment Upcoming Encounters Date Type Specialty Care Team Description 04/29/2022 Office Visit Cisco De Souza MD [address] [facility] [place], [place] [address] (Wo rk) 04/30/2022 Office Visit Ruby Fowler, OD [address] [place], [place] [address] (Wo rk) Health Maintenance Due Date Last Done Comments Depression screening for age 12+ 1993 Hepatitis C screening for age 0411/13/1999 18-79 BMI (ht and wt on same day) for 03/26/2022 03/26/2021, 08/0 04/2021, age 18+ 07/23/2019, Additional history exists Influenza for age 9-49 04/10/2022 06/17/2013 (Completed out side of [facility]), 06/17/2013 Tetanus booster 11/03/2027 11/02/2017, 03/20/2007 Tdap Completed 11/02/2017, 03/20/2007 COVID-19 vaccine series Completed 07/17/2021, 12/18/2020, 11/22/2020 Medical Devices Implanted Type Area Carburetor Mechanic Device Shelf Model / Identifier Expiration Date Ser ial / Lot Stent Uret [id number] Contour - [id number] Left: BSC Ur ology 11/15/2023 [id number] / Implanted: Qty: 1 on 02/06/2021 by Rebel Bernstein MD at [facility] Ureter / [id number] Procedures Procedure Name Priority Date/Time Associated Diagnosis Comme nts SCAN-MRI INTERPRETATION 03/11/2022 12:00 AM CDT from Last 3 Months Results SCAN-MRI INTERPRETATION (03/11/2022 12:00 AM CDT) Narrative This result has an attachment that is no t available. Scanner OTHER from Last 3 Months Insurance Payer Benefit Plan / Subscriber ID Effective Dates Phone Addre ss Type Group [facility] [id number] 2020-Present [address] [facility] [place] [phone] (Home) [place] MAC [phone] [...] 10:10 AM 01/28/2008 5:52 PM Care Teams Coin Machine Servicer Repairer Relationship Specialty Start Date End Date Matheus Feliciano MBBS PCP - General Family Practice 01/11/[address] [place] [address] [place] [address]
--- OUTSIDE RECORDS SUMMARY | 2022-04-29 07:24 | XMS_ITS | Encounter Summary ---
:1980 Author Organization [place] Address [address] [place] [address]. [place] [address] Care Team Providers Name Role Phone Matheus Feliciano MD Primary Care Provider Car Joel MD Unavailable Encounter Details Date Type Department Care Team Description 02/17/2022 Telephone [facility] Surgical Doyle Aranda, RN Weight Loss Clinic [address] [place] [address] Social History Tobacco Use Types Packs/Day Years Used Date Former Smoker Cigarettes Smokeless Tobacco: Never Used Comments: as a child Alcohol Use Standard Drinks/Week Comments No 0 (1 standard drink = 0.6 oz pure alcoho l) Sex Assigned at Date Recorded Female 06/29/2021 12:12 PM 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 Yes 2) How many tablets do you have left? 2 days worth 3) Are you symptoms controlled? If I stop taking medication I have bad indigestion without it Pt would like refill of Pantoprazole [phone], detailed msg ok. documented in this encounter Plan of Treatment Not on filedocumented as of this encounter Visit Diagnoses Not on filedocumented in this encounter Care Teams Logger Driving Horses Relationship Specialty Start Date End Date Matheus Feliciano MD PCP - General 03/23/20 [facility] [address] [facility] [place] [address] Car Joel MD Assigned Surgical Provider 06/01/20 [address] [facility] [address] [address] [place] [address] documented as of this encounter
--- OUTSIDE RECORDS SUMMARY | 2022-04-29 07:24 | XMS_ITS | Encounter Summary ---
:1980 Author Organization [place] Address [address] [place] [address]. [place] [address] Care Team Providers Name Role Phone Matheus Feliciano MD Primary Care Provider Car Joel MD Unavailable Reason for Visit Reason Onset Date Comments Patient Request 02/19/2021 Encounter Details Date Type Department Care Team Description 02/19/2021 Telephone [facility] Surgical Rehana Anaya, Patient Request Weight Loss Clinic E olga RN [address] [facility] [address] [facility] [address] [place] [address] [place] [id number] Social History Tobacco Use Types Packs/Day Years Used Date Former Smoker Cigarettes Smokeless Tobacco: Never Used Comments: as a child Alcohol Use Standard Drinks/Week Comments No 0 (1 standard drink = 0.6 oz pure alcoho l) Sex Assigned at Date Recorded Female 06/29/2021 12:12 PM ENROLLMENT COUNSELOR documented as of this encounter Miscellaneous [...] filedocumented in this encounter Care Teams Medical Insurance Coding Specialist Relationship Specialty Start Date End Date Matheus Feliciano MD PCP - General 03/23/20 [facility] [address] [facility] [place] [phone] Car Joel MD Assigned Surgical Provider 06/01/20 [address] [place] [id number] documented as of this encounter
--- OUTSIDE RECORDS SUMMARY | 2022-04-29 07:24 | XMS_ITS | Encounter Summary ---
:1980 Author Organization [place] Address [address] [place] [address]. [place] [address] Care Team Providers Name Role Phone Matheus Feliciano MD Primary Care Provider Car Joel MD Unavailable Reason for Visit Reason Comments Medication Refill Encounter Details Date Type Department Care Team Description 12/25/2021 Refill [facility] Surgery Car Joel MD Medication Refill Clinic [place] [address] [place] [address] [address] [place] [phone] [phone] Social History Tobacco Use Types Packs/Day Years Used Date Former Smoker Cigarettes Smokeless Tobacco: Never Used Comments: as a child Alcohol Use Standard Drinks/Week Comments No 0 (1 standard drink = 0.6 oz pure alcoho l) Sex Assigned at Date Recorded Female 06/29/2021 12:12 PM BANQUET PREP COOK documented as of this encounter Miscellaneous Notes [...] hemorrhage documented in this encounter Care Teams Health Safety Instructor Relationship Specialty Start Date End Date Matheus Feliciano MD PCP - General 03/23/20 [facility] [address] [place] [phone] Car Joel MD Assigned Surgical Provider 06/01/20 [address] [place] [id number] documented as of this encounter
--- OUTSIDE RECORDS SUMMARY | 2022-04-29 07:24 | XMS_ITS | Encounter Summary ---
:1980 Author Organization [place] Address [address] [place] [address]. 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 Telephone Encounter - Erica Stout - 03/11/2021 8:52 AM CDT Pt had to cancel bariatric surgeon appt today but would like to reschedule [phone] documented in this encounter Plan of Treatment Not on filedocumented as of this encounter Visit Diagnoses Not on filedocumented in this encounter Care Teams Production Expediter Relationship Specialty Start Date End Date Matheus Feliciano MD PCP - General 03/23/20 [facility] [address] [facility] [place] [address] Car Joel MD Assigned Surgical Provider 06/01/20 [address] [place] [address] documented as of this encounter
--- OUTSIDE RECORDS SUMMARY | 2022-04-29 07:24 | XMS_ITS | Encounter Summary ---
:1980 Author Organization [place] Address [address] [place] [address]. [place] [address] Care Team Providers Name Role Phone Matheus Feliciano MD Primary Care Provider Car Joel MD Unavailable Reason for Visit Reason Comments Medication Refill Encounter Details Date Type Department Care Team Description 04/16/2022 Refill [facility] Surgery Car Joel MD Medication Refill Clinic [place] [address] [place] [place] [address] [address] [place] [phone] [phone] Social History Tobacco Use Types Packs/Day Years Used Date Former Smoker Cigarettes Smokeless Tobacco: Never Used Comments: as a child Alcohol Use Standard Drinks/Week Comments No 0 (1 standard drink = 0.6 oz pure alcoho l) Sex Assigned at Date Recorded Female 06/29/2021 12:12 PM GENERAL ACTIVITIES THERAPIST documented as of this encounter Plan of Treatment Not on filedocumented as of this encounter Visit Diagnoses Diagnosis Other acute gastritis without hemorrhage documented in this encounter Care Teams Psychodramatist Relationship Specialty Start Date End Date Matheus Feliciano MD PCP - General 03/23/[address] [phone] Car Joel MD Assigned Surgical Provider 06/01/[address] [place], [place] [id number] documented as of this encounter
--- OUTSIDE RECORDS SUMMARY | 2022-04-29 07:24 | XMS_ITS | Encounter Summary ---
:1980 Author Organization [place] Address [address] [place] [address]. [place] [address] Care Team Providers Name Role Phone Matheus Feliciano MD Primary Care Provider Car Joel MD Unavailable Reason for Visit Reason Comments Medication Refill Encounter Details Date Type Department Care Team Description 08/30/2021 Refill [facility] Surgery Car Joel MD Medication Refill Clinic [place] [address] [place] [place] [address] [address] [place] [phone] [phone] Social History Tobacco Use Types Packs/Day Years Used Date Former Smoker Cigarettes Smokeless Tobacco: Never Used Comments: as a child Alcohol Use Standard Drinks/Week Comments No 0 (1 standard drink = 0.6 oz pure alcoho l) Sex Assigned at Date Recorded Female 06/29/2021 12:12 PM 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 Lelo Aranda RN on 08/30/2021 at 8:47 AM H PRESS OPERATOR documented in this encounter Plan of Treatment Not on filedocumented as of this encounter Visit Diagnoses Diagnosis Other acute gastritis without hemorrhage documented in this encounter Care Teams Chain Link Fence Installer Relationship Specialty Start Date End Date Matheus Feliciano MD PCP - General 03/23/[address] [place] [address] Car Joel MD Assigned Surgical Provider 06/01/20 [address] [place] [address] documented as of this encounter
--- OUTSIDE RECORDS SUMMARY | 2022-04-29 07:24 | XMS_ITS | Clinical Summary ---
:1980 Author Organization [place] Address [address] [place] [address] Care Team Providers Name Role Phone Matheus [...] daily (takes 3 x 300mg) fluticasone (FLONASE) [place] 30 mcg in 0 Active 50 MCG/ACT [...] Added automatically from request for jose montoya [id number] Bariatric surgery status 11/17/2019 Malnutrition following gastrointestinal [...] Date Type Specialty Care Team Description 04/16/2022 Refill General Surgery Car Joel MD Medica tion Refill 02/17/2022 Telephone Surgery Lelo Aranda RN 02/17/2022 Refill General Surgery Car Joel MD Medicjerome tion Refill from Last 3 Months Immunizations [...] at Date Recorded Female 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/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 Last Filed Vital Signs Vital Sign Reading [...] 64 Years) Medical Devices Implanted Type Area Night Court Magistrate Device Identifier Shelf Model / Expiration Serial / Date Lot Mesh Bio-A Tissue Reinforcement 7x10cm [id number] Mesh N/A: W .L.GORE [id number] 10/09/2022 [id number] / Implanted: Qty: 1 on 04/12/2020 by Car Lieberman MD at [facility] Abdomen [id number] / Insurance Payer Benefit Plan Subscriber ID Effective Phone Address Typ e / Group Dates [facility] [id number] 2017-Prese [phone] [address] [facility] [id number] [employer] [place] [facility] [address] [address] [facility] y (Home) [place] [phone] Advance Directives For more information, please contact: [phone] Latest Code Status on File Code Status Date Activated Date Inactivated Comments Full Code 04/12/2020 2:31 PM 04/14/2020 3:50 PM All basic and advanced life-sustaining interventions ar e performed as appropriate Code status determined by: Unable to determine; FULL C ODE until documents or legal decision maker available Care Teams Manager Medical Device Relationship Specialty Start Date End Date Matheus Feliciano MD PCP - General 03/23/20 [facility] [place] [address] [facility] [place] [address] Car Joel MD Assigned Surgical Provider 06/01/20 [address] [place] [address] (work)
--- OUTSIDE RECORDS SUMMARY | 2022-04-29 07:24 | XMS_ITS | Encounter Summary ---
:1980 Author Organization [place] Address [address] [place] [address]. [place] [address] Care Team Providers Name Role Phone Matheus Feliciano MD Primary Care Provider Car Joel MD Unavailable Reason for Visit Reason Comments Medication Refill Encounter Details Date Type Department Care Team Description 10/26/2021 Refill [facility] Surgery Car Joel MD Medication Refill Clinic [place] [address] [place] [place] [address] [address] [place] [phone] [phone] Social History Tobacco Use Types Packs/Day Years Used Date Former Smoker Cigarettes Smokeless Tobacco: Never Used Comments: as a child Alcohol Use Standard Drinks/Week Comments No 0 (1 standard drink = 0.6 oz pure alcoho l) Sex Assigned at Date Recorded Female 06/29/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
--- OUTSIDE RECORDS SUMMARY | 2022-04-29 07:24 | XMS_ITS | Encounter Summary ---
:1980 Author Organization [place] Address [address] [place] [address]. [place] [address] Care Team Providers Name Role Phone Matheus Feliciano MD Primary Care Provider Car Joel MD Unavailable Reason for Visit Reason Comments RECHECK Encounter Details Date Type Department Care Team Description 04/03/[address] 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
--- OUTSIDE RECORDS SUMMARY | 2022-04-29 07:24 | XMS_ITS | Encounter Summary ---
:1980 Author Organization [place] Address [address] [place] [address]. [place] [address] Care Team Providers Name Role Phone Matheus Feliciano MD Primary Care Provider Car Joel MD Unavailable Reason for Visit Reason Onset Date Comments Same Day Appointment 03/04/2021 Encounter Details Date Type Department Care Team Description 03/04/[address] 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 YES Travel screening: Not Applicable documented in this encounter Plan of Treatment Not on filedocumented as of this encounter Visit Diagnoses Not on filedocumented in this encounter Care Teams Leather Dresser Relationship Specialty Start Date End Date Matheus Feliciano MD PCP - General 03/23/20 [facility] [address] [facility] [place] [phone] Car Joel MD Assigned Surgical Provider 06/01/20 [address] [place] [address] documented as of this encounter
--- OUTSIDE RECORDS SUMMARY | 2022-04-29 07:24 | XMS_ITS | Encounter Summary ---
:1980 Author Organization [place] Address [address] [place] [address]. [place] [address] Care Team Providers Name Role Phone Matheus Feliciano MD Primary Care Provider Car Joel MD Unavailable Reason for Visit Reason Comments Medication Refill Encounter Details Date Type Department Care Team Description 07/02/2021 Refill [facility] Surgery Car Joel MD Medication Refill Clinic [place] [address] [place] [place] [address] [address] [place] [phone] [phone] Social History Tobacco Use Types Packs/Day Years Used Date Former Smoker Cigarettes Smokeless Tobacco: Never Used Comments: as a child Alcohol Use Standard Drinks/Week Comments No 0 (1 standard drink = 0.6 oz pure alcoho l) Sex Assigned at Date Recorded Female 06/29/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 Requesting refill Will forward to to see if he would like to refill or if pt needs to be seen? Lelo Aranda, RN on 07/03/2021 at 11:00 AM TENANCE MECHANIC ELEVATORS documented in this encounter Plan of Treatment Not on filedocumented as of this encounter Visit Diagnoses Diagnosis Other acute gastritis without hemorrhage - Primary documented in this encounter Care Teams Repair Technician Relationship Specialty Start Date End Date Matheus Feliciano MD PCP - General 03/23/20 [facility] [address] [facility] [place] [phone] Car Joel MD Assigned Surgical Provider 06/01/20 [address] [place] [address] documented as of this encounter
--- OUTSIDE RECORDS SUMMARY | 2022-04-29 07:24 | XMS_ITS | Encounter Summary ---
:1980 Author Organization [place] Address [address] [place] [address]. [place] [address] Care Team Providers Name Role Phone Matheus Feliciano MD Primary Care Provider Car Joel MD Unavailable Reason for Visit Reason Comments Medication Refill Encounter Details Date Type Department Care Team Description 02/17/2022 Refill [facility] Surgery Car Joel MD Medication Refill Clinic [place] [address] [place] [address] [address] [place] [phone] [phone] Social History Tobacco Use Types Packs/Day Years Used Date Former Smoker Cigarettes Smokeless Tobacco: Never Used Comments: as a child Alcohol Use Standard Drinks/Week Comments No 0 (1 standard drink = 0.6 oz pure alcoho l) Sex Assigned at Date Recorded Female 06/29/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 Lelo Aradna, RN on 02/17/2022 at 10:38 AM documented in this encounter Plan of Treatment Not on filedocumented as of this encounter Visit Diagnoses Diagnosis Other acute gastritis without hemorrhage documented in this encounter Care Teams Client Service And Consulting Manager Relationship Specialty Start Date End Date Matheus Feliciano MD PCP - General 03/23/20 [facility] [address] [facility] [place] [address] Car Joel MD Assigned Surgical Provider 06/01/20 [address] [place] [address] documented as of this encounter
--- OUTSIDE RECORDS SUMMARY | 2022-04-29 07:24 | XMS_ITS | Encounter Summary ---
:1980 Author Organization [place] Address [address] [place] [address]. 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 documented as of this encounter Plan of Treatment Not on filedocumented as of this encounter Visit Diagnoses Not on filedocumented in this encounter Care Teams Plasma Specialist Relationship Specialty Start Date End Date Matheus Feliciano MD PCP - General 03/23/20 [facility] [address] [address] Car Joel MD Assigned Surgical Provider 06/01/20 [address] [place] [address] documented as of this encounter
--- OUTSIDE RECORDS SUMMARY | 2022-04-29 07:24 | XMS_ITS | Encounter Summary ---
:1980 Author Organization [place] Address [address] [place] [address]. [place] [address] Care Team Providers Name Role Phone Matheus Feliciano MD Primary Care Provider Car Joel MD Unavailable Encounter Details Date Type Department Care Team Description 02/18/2021 Telephone [facility] E olga Henley PA-C [address] [facility] [address] [facility] [address] [place] [address] [place] [address] [phone] Social History Tobacco Use Types Packs/Day Years Used Date Former Smoker Cigarettes Smokeless Tobacco: Never Used Comments: as a child Alcohol Use Standard Drinks/Week Comments No 0 (1 standard drink = 0.6 oz pure alcoho l) Sex Assigned at Date Recorded Female 06/29/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 [address] [facility] [place] [address] Car Joel MD Assigned Surgical Provider 06/01/20 [address] [place] [address] documented as of this encounter
--- OUTSIDE RECORDS SUMMARY | 2022-04-29 07:25 | XMS_ITS | Encounter Summary ---
:1980 Author Organization [place] Address [address] [place] [address] Care Team Providers Name Role Phone Matheus Feliciano MD Primary Care Provider Encounter Details Date Type Department Care Team Description 05/25/[address] 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 No Video-Visit Details Type of service: Video Visit Video Start Time:1:29pm Video End Time: 1:54pm Originating Location (pt. Location): Home Distant Location (provider location): Provider Remote Setting Platform used for Video Visit: [facility] NUTRITION POST OP APPOINTMENT DATE OF VISIT: May 25, 2020 Gricelda Roberts 1980 female [id number] 39 year old ASSESSMENT: REASON FOR VISIT: [...] potatoes Snacks: fruit Fluids consumed: Water (60oz), Conklin Instant Breakfast (occasionally) Consuming liquid calories: Yes [...] sorption documented in this encounter Care Teams Kindergarten Tutor Relationship Specialty Start Date End Date Matheus Feliciano MD PCP - General 03/23/[address] [phone] documented as of this encounter
--- OUTSIDE RECORDS SUMMARY | 2022-04-29 07:25 | XMS_ITS | Encounter Summary ---
:1980 Author Organization [place] Address [address] [place] [address]. [place] [address] Care Team Providers Name Role Phone Matheus Feliciano MD Primary Care Provider Car Joel MD Unavailable Reason for Visit Reason Onset Date Comments Medication Request 04/24/2020 Encounter Details Date Type Department Care Team Description 04/24/2020 Telephone [facility] Surgery Car Joel MD Medication Request Clinic [place] [address] [place] [address] [place] [address] [phone] Social History Tobacco Use Types Packs/Day Years Used Date Former Smoker Cigarettes Smokeless Tobacco: Never Used Comments: as a child Alcohol Use Standard Drinks/Week Comments No 0 (1 standard drink = 0.6 oz pure alcoho l) Sex Assigned at Date Recorded Female 06/29/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 COVID-19 Exposure Response Date Recorded In the [...] like refill on Cyclobenzaprine 5 mg Phone: Bia/Leo Please let her know when approved documented in this encounter Plan of Treatment Not on filedocumented as of this encounter Visit Diagnoses Diagnosis Hiatal hernia Diaphragmatic hernia without mention of obstruction or gangrene documented in this encounter Care Teams Shading Painter Relationship Specialty Start Date End Date Matheus Feliciano MD PCP - General 03/23/20 [facility] [address] [facility] [place] [address] Car Joel MD Assigned Surgical Provider 06/01/20 [address] [place] [address] documented as of this encounter
--- OUTSIDE RECORDS SUMMARY | 2022-04-29 07:25 | XMS_ITS | Encounter Summary ---
:1980 Author Organization [place] Address [address] [place] [address]. 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 documented as of this encounter Plan of Treatment Not on filedocumented as of this encounter Visit Diagnoses Not on filedocumented in this encounter Care Teams Staff Counselor Relationship Specialty Start Date End Date Matheus Feliciano MD PCP - General 03/23/[address] [address] documented as of this encounter
--- OUTSIDE RECORDS SUMMARY | 2022-04-29 07:25 | XMS_ITS | Encounter Summary ---
:1980 Author Organization [place] Address [address] [place] [address] Care Team Providers Name Role Phone Matheus Feliciano MD Primary Care Provider Car Joel MD Unavailable Reason for Visit Reason Comments Abdominal Pain Encounter Details Date Type Department Care Team Description 02/09/[address] 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 Stents, Ureteral (Danish)documented in this encounter Medications at Time of [...] 0 MG tablet daily fluticasone (FLONASE) 50 [place] 30 mcg in 0 MCG/ACT nasal spray [...] statements to me. Jesus Vigil MD 02/09/21 [id number] documented in this encounter Plan of Treatment [...] Component Value Ref Test Analysis Performed At [facility] Range Method Time Signature Color Urine Yellow 02/09/2021 [facility] 10:[address] [facility] Appearance Urine Slightly Cloudy 02/09/2021 [facility] 10:46 PM [facility] Glucose Urine Negative NEG^Nega 02/09/2021 [facility] tive 10:46 PM [facility] mg/dL [facility] Bilirubin Urine Negative NEG^Nega 02/09/2021 [facility] tive 10:46 PM [facility] Ketones Urine Trace (A) NEG^Nega 02/09/2021 [facility] tive 10:46 PM [facility] mg/dL [facility] Specific Samson 1.026 1.003 - 02/09/2021 [facility] Urine 1.035 10:46 PM [facility] Blood Urine Large (A) NEG^Nega 02/09/2021 [facility] tive 10:46 PM [facility] pH Urine 6.0 5.0 - 02/09/2021 [facility] 7.0 pH 10:46 PM [facility] Protein Albumin 200 (A) NEG^Nega 02/09/2021 [facility] [place] Urine tive 10:46 PM [facility] mg/dL [facility] Urobilinogen Normal 0.0 - 02/09/2021 [facility] [place] mg/dL 2.0 10:46 PM [facility] mg/dL [facility] Nitrite Urine Negative NEG^Nega 02/09/2021 [facility] [place] tive 10:46 PM [facility] Leukocyte Moderate (A) NEG^Nega 02/09/2021 [facility] Esterase Urine tive 10:46 PM [facility] Source Catheterized 02/09/2021 [facility] [place] Urine 10:34 PM [facility] WBC Urine 153 (H) 0 - 5 02/09/2021 [facility] [place] /HPF 10:46 PM [facility] RBC Urine >182 (H) 0 - 2 02/09/2021 [facility] [place] /HPF 10:46 PM [facility] Squamous 2 (H) 0 - 1 02/09/2021 [facility] [place] Epithelial /HPF /HPF 10:46 PM [facility] Urine [facility] Specimen (Source) Anatomical Collection Method Collection Time Re ceived Time Location / / Volume Laterality Urine specimen 02/09/2021 10:21 1 collection, PM CDT 10:34 PM CDT catheterized (procedure) Jesus Vigil MD LAB - URINE ORDERABLES Performing Organization Address City/State/ZIP Code Phon e Number [place] [address] [address] [place] [address] [place] [address] [phone] CT Abdomen Pelvis without Contrast (stone protocol) [...] EXAM: CT ABDOMEN PELVIS W/O CONTRAST LOCATION: [facility] DATE/TIME: 02/09/2021 10:05 PM INDICATION: Recent ureteral [...] EXAM: CT ABDOMEN PELVIS W/O CONTRAST LOCATION: [facility] DATE/TIME: 02/09/2021 10:05 PM INDICATION: Recent ureteral [...] - 144 02/09/2021 [facility] mmol/L 9:59 PM [facility] Potassium 3.6 3.4 - 5.3 02/09/2021 [facility] mmol/L 9:59 PM [facility] Chloride 106 94 - 109 02/09/2021 [facility] mmol/L 9:59 PM [facility] Carbon Dioxide 28 20 - 32 02/09/2021 [facility] [place] mmol/L 10:05 PM [facility] Anion Gap 4 3 - 14 02/09/2021 [facility] mmol/L 10:05 PM [facility] Glucose 81 70 - 99 02/09/2021 [facility] mg/dL 10:05 PM [facility] Urea Nitrogen 9 7 - 30 02/09[facility]20[facility] 10:05 PM [facility] Creatinine 1.04 0.52 - 02/09/2021 [facility] 1.04 mg/dL 10:05 PM [facility] GFR Estimate 68 >60 02/09/2021 [facility] [place] mL/min/{1. 10:05 PM [facility] 73_m2} [facility] Comment: Non GFR Calc Starting 07/27/2018, serum creatinine ba sed estimated GFR (eGFR) will be calculated using the Chronic Kidney Dise [facility] Epidemiology Collaboration (CKD-EPI) equation. GFR Estimate If 78 >60 mL/min/{1.73_m2} 02/09/2021 10 :05 PM [facility] Comment: GFR Calc Starting 07/27/2018, serum creatinine ba sed estimated GFR (eGFR) will be calculated using the Chronic Kidney Dise [facility] Epidemiology Collaboration (CKD-EPI) equation. Calcium 8.6 8.5 - 10.1 mg/dL 02/09/2021 10:05 PM [facility] Specimen Anatomical Collection Method Collection Time Receive d Time (Source) Location / / Volume Laterality Blood 02/09/2021 9:46 PM 9:49 CDT PM CDT Jesus Vigil MD LAB - BLOOD ORDERABLES Performing Organization Address City/State/ZIP Code Phon e Number M [facility] [address] [place], [place] [address] [facility] [address] [place], [place] [address], [facility] [phone] (ABNORMAL) CBC with platelets differential (02/09/2021 9:46 PM CDT) [facility] gist Method Time Signature WBC 12.9 (H) 4.0 - 02/09/2021 [facility] 11.0 9:52 PM [facility] 10e9/L [facility] RBC Count 4.51 3.8 - 5.2 02/09/2021 [facility] 10e12/L 9:52 PM [facility] Hemoglobin 14.3 11.7 - 02/09/2021 [facility] 15.7 g/dL 9:52 PM [facility] Hematocrit 43.7 35.0 - 02/09/2021 [facility] 47.0 % 9:52 PM [facility] MCV 97 78 - 100 02/09/2021 [facility] fl 9:52 PM [facility] MCH 31.7 26.5 - 02/09/2021 [facility] 33.0 pg 9:52 PM [facility] MCHC 32.7 31.5 - 02/09/2021 [facility] 36.5 g/dL 9:52 PM [facility] RDW 12.2 10.0 - 02/09/2021 [facility] 15.0 % 9:52 PM [facility] Platelet Count 256 150 - 450 02/09/2021 [facility] 10e9/L 9:52 PM [facility] Diff Method Automated 02/09/2021 [facility] Method 9:52 PM [facility] % Neutrophils 71.3 % 02/09/2021 [facility] 9:52 PM [facility] % Lymphocytes 17.7 % 02/09/2021 [facility] 9:52 PM [facility] % Monocytes 7.3 % 02/09/2021 [facility] 9:52 PM [facility] % Eosinophils 1.9 % 02/09/2021 [facility] 9:52 PM [facility] % Basophils 0.6 % 02/09/2021 [place] 9:52 PM [facility] % Immature 1.2 % 02/09/2021 [place] Granulocytes 9:52 PM [facility] Nucleated RBCs 0 0 /100 02/09/2021 [facility] 9:52 PM [facility] Absolute 9.2 (H) 1.6 - 8.3 02/09/2021 [facility] Neutrophil 10e9/L 9:52 PM [facility] Absolute 2.3 0.8 - 5.3 02/09/2021 [facility] [place] Lymphocytes 10e9/L 9:52 PM [facility] Absolute 0.9 0.0 - 1.3 02/09/2021 [place] Monocytes 10e9/L 9:52 PM [facility] Absolute 0.3 0.0 - 0.7 02/09/2021 [facility] Eosinophils 10e9/L 9:52 PM [facility] Absolute 0.1 0.0 - 0.2 02/09/2021 [place] Basophils 10e9/L 9:52 PM [facility] Abs Immature 0.2 0 - 0.4 02/09/2021 [place] Granulocytes 10e9/L 9:52 PM [facility] Absolute 0.0 02/09/2021 [place] Nucleated RBC 9:52 PM [facility] Specimen Anatomical Collection Method Collection Time Receive d Time (Source) Location / / Volume Laterality Blood 02/09/2021 9:46 PM 9:49 CDT PM CDT Jesus Vigil MD LAB - BLOOD ORDERABLES Performing Organization Address City/State/ZIP Code Phon e Number [facility] [address] [place], [place] [address] [facility] [address] [phone] documented in this encounter Visit Diagnoses Diagnosis [...] analgesic side effects. Hold while on IV WINDOWS SECURITY ENGINEER or with regular IV opioid dosing. For [...] BOLUS (COMPLETED) 2149 (New Bag - Provider: Court Ventura RN)708 (Stopped - Provider: Court Ventura RN) Intravenous, [...] analgesic side effects. Hold while on IV WINDOWS SECURITY ENGINEER or with regular IV opioid dosing. Fo [...] minutes. documented in this encounter Care Teams Netting Inspector Relationship Specialty Start Date End Date Matheus Feliciano MD PCP - General 03/23/20 [facility] [address] [facility] [place] [address] Car Joel MD Assigned Surgical Provider 06/01/20 [address] [place] [id number] documented as of this encounter
--- OUTSIDE RECORDS SUMMARY | 2022-04-29 07:25 | XMS_ITS | Encounter Summary ---
:1980 Author Organization [place] Address [address] [place] [address] Care Team Providers Name Role Phone Matheus Feliciano MD Primary Care Provider Car Joel MD Unavailable Reason for Referral (Routine) - Closed Specialty Diagnoses / Procedures Referred By Contact Refer red To Contact Diagnoses Bariatric surgery status Postsurgical malabsorption Rehana Anaya RN Procedures Ferritin [facility] [address] [place] [address] Referral ID Status Reason Start Date Expiration Date Visits Requ ested Visits Authorized [id number] Closed 01/24/2021 01/24/2022 1 1 (Routine) - Closed Specialty Diagnoses / Procedures Referred By Contact Refer red To Contact Diagnoses Bariatric surgery status Postsurgical malabsorption Rehana Anyaa RN Procedures Iron and Iron Binding Capacity [facility] [address] [place] [address] Referral ID Status Reason Start Date Expiration Date Visits Requ ested Visits Authorized [id number] Closed 01/24/2021 01/24/2022 1 1 (Routine) - Closed Specialty Diagnoses / Procedures Referred By Contact Refer red To Contact Diagnoses Bariatric surgery status Postsurgical malabsorption Rehana Anaya RN Procedures Iron [facility] [address] [place] [address] Referral ID Status Reason Start Date Expiration Date Visits Requ ested Visits Authorized [id number] Closed 01/24/2021 01/24/2022 1 1 (Routine) - Closed Specialty Diagnoses / Procedures Referred By Contact Refer red To Contact Diagnoses Bariatric surgery status Postsurgical malabsorption Rehana Anaya RN Procedures Parathyroid Hormone Intact [facility] [address] [place] [address] Referral ID Status Reason Start Date Expiration Date Visits Requ ested Visits Authorized [id number] Closed 01/24/2021 01/24/2022 1 1 (Routine) - Closed Specialty Diagnoses / Procedures Referred By Contact Refer red To Contact Diagnoses Bariatric surgery status Postsurgical malabsorption Rehana Anaya RN Procedures Vitamin D Screen [facility] [address] [place] [address] Referral ID Status Reason Start Date Expiration Date Visits Requ ested Visits Authorized [id number] Closed 01/24/2021 01/24/2022 1 1 (Routine) - Closed Specialty Diagnoses / Procedures Referred By Contact Refer red To Contact Diagnoses Bariatric surgery status Postsurgical malabsorption Rehana Anaya RN Procedures Vitamin B12 [facility] [address] [place] [address] Referral ID Status Reason Start Date Expiration Date Visits Requ ested Visits Authorized [id number] Closed 01/24/2021 01/24/2022 1 1 (Routine) - Closed Specialty Diagnoses / Procedures Referred By Contact Refer red To Contact Diagnoses Bariatric surgery status Postsurgical malabsorption Rehana Anaya RN Procedures Vitamin A (Bypass/Sleeve) [facility] [address] [place] [address] Referral ID Status Reason Start Date Expiration Date Visits Requ ested Visits Authorized [id number] Closed 01/24/2021 01/24/2022 1 1 Reason for Visit Reason Onset Date Comments Patient Request 01/24/2021 Encounter Details Date Type Department Care Team Description 01/24/2021 Telephone [facility] Surgical Rehana Anaya, Patient Request Weight Loss Clinic E olga RN [address] [facility] [address] [place] [address] [place] [address] [phone] Social History Tobacco Use Types Packs/Day Years Used Date Former Smoker Cigarettes Smokeless Tobacco: Never Used Comments: as a child Alcohol Use Standard Drinks/Week Comments No 0 (1 standard drink = 0.6 oz pure alcoho l) Sex Assigned at Date Recorded Female 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 Will fax orders to her [facility] and Dr. Feliciano at [phone]. Verified the orders went through at 5:15 [...] and xray and EKG all done at [facility] - states was told that all [...] sorption documented in this encounter Care Teams School Principal Relationship Specialty Start Date End Date Mathues Feliciano MD PCP - General 03/23/[facility] [address] [facility] [place] [phone] Car Joel MD Assigned Surgical Provider 06/01/20 [address] [place] [address] documented as of this encounter
--- OUTSIDE RECORDS SUMMARY | 2022-04-29 07:25 | XMS_ITS | Encounter Summary ---
:1980 Author Organization [place] Address [address] [place] [address]. [place] [address] Care Team Providers Name Role Phone Matheus Feliciano MD Primary Care Provider Car Joel MD Unavailable Encounter Details Date Type Department Care Team Description 01/23/2021 Telephone [facility] Surgical Michael, Lon Alexander, Weight Loss Clinic E olga PA-C [address] [facility] out [address] [facility] [address] [place] [address] [place] [address] [phone] Social History Tobacco Use Types Packs/Day Years Used Date Former Smoker Cigarettes Smokeless Tobacco: Never Used Comments: as a child Alcohol Use Standard Drinks/Week Comments No 0 (1 standard drink = 0.6 oz pure alcoho l) Sex Assigned at Date Recorded Female 06/29/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 Also [...] to reach patient: Home number on file [phone] (home) Best Time: Can we leave a detailed message on this number? YES Travel screening: Not Applicable documented in this encounter Plan of Treatment Not on filedocumented as of this encounter Visit Diagnoses Not on filedocumented in this encounter Care Teams Cobol Programmer Relationship Specialty Start Date End Date Matheus Feliciano MD PCP - General 03/23/20 [facility] [address] [facility] [place] [address] Car Joel MD Assigned Surgical Provider 06/01/20 [address] [place] [phone] documented as of this encounter
--- OUTSIDE RECORDS SUMMARY | 2022-04-29 07:25 | XMS_ITS | Encounter Summary ---
:1980 Author Organization [place] Address [address] [place] [address]. 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 documented as of this encounter Plan of Treatment Not on filedocumented as of this encounter Visit Diagnoses Not on filedocumented in this encounter Care Teams Research Laboratory Manager Relationship Specialty Start Date End Date Matheus Feliciano MD PCP - General 03/23/[address] [address] documented as of this encounter
--- OUTSIDE RECORDS SUMMARY | 2022-04-29 07:25 | XMS_ITS | Encounter Summary ---
:1980 Author Organization [place] Address [facility] [place] [address] Care Team Providers Name Role Phone Matheus Feliciano MD Primary Care Provider Reason for Visit Reason Comments Post-Op - General Surgery herina repair Encounter Details Date Type Department Care Team Description 05/16/2020 Office Visit [facility] Car Joel Surgantolin pino followup Surgery Clinic [place] FLORES visit (Primary Dx) [address] [place] [address] [place] [id number] Social History Tobacco Use Types Packs/Day Years Used Date Former Smoker Cigarettes Smokeless Tobacco: Never Used Comments: as a child Alcohol Use Standard Drinks/Week Comments No 0 (1 standard drink = 0.6 oz pure alcoho l) Sex Assigned at Date Recorded Female 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 documented as of this encounter Progress Notes Car Joel MD - 05/16/2020 2:30 PM CDT [...] surgery documented in this encounter Care Teams Boat Puller Relationship Specialty Start Date End Date Matheus Feliciano MD PCP - General 03/23/[address] [phone] documented as of this encounter
--- OUTSIDE RECORDS SUMMARY | 2022-04-29 07:25 | XMS_ITS | Encounter Summary ---
:1980 Author Organization [place] Address [address] [place] [address]. [place] [address] Care Team Providers Name Role Phone Matheus Feliciano MD Primary Care Provider Car Joel MD Unavailable Reason for Referral (Routine) - Closed Specialty Diagnoses / Procedures Referred By Contact Refer red To Contact Diagnoses Surgical followup visit Postsurgical malabsorption Car Joel MD Procedures TSH with free T4 reflex [address] [place] [id number] Referral ID Status Reason Start Date Expiration Date Visits Requ ested Visits Authorized [id number] Closed 02/06/2021 02/06/2022 1 1 Encounter Details Date Type Department Care Team Description 02/06/2021 Telephone [facility] Surgery Car Joel MD Clinic [place] [address] [place] [address] [address] [place] [phone] [phone] Social History Tobacco Use Types Packs/Day Years Used Date Former Smoker Cigarettes Smokeless Tobacco: Never Used Comments: as a child Alcohol Use Standard Drinks/Week Comments No 0 (1 standard drink = 0.6 oz pure alcoho l) Sex Assigned at Date Recorded Female 06/29/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 documented as of this encounter Miscellaneous Notes Telephone Encounter - Rehana Anaya, RN - 02/06/2021 4:[address]oke with Dr. Joel.VORB - order TSH Free T4 reflex. This was ordered and faxed to Dr. Feliciano at [phone]. Verified fax went through at 5:05 PM today. Patient also to see Dr. Joel and RD at same day in next couple of weeks. Lab results to be available for Dr. Keys to review at that visit. Patient also to bring food/fluid log at that visit that she will have been doing since his conversation with her this afternoon. Dr. Joel also recommended she start drinking protein drinks. Metalizer Field Operation was sent message to schedule and remind patient to do above. Also spoke with patient re: above who verbalized understanding and agreeable to plan. Rehana Bryan, MS, RD, RN Telephone Encounter - Erica Stout - 02/06/2021 3:06 PM CDT Pt missed appt today and would like a call back to discuss labs [phone] documented in this encounter Plan of Treatment Scheduled Orders Name Type Priority Associated Diagnoses Order S chedule TSH with free T4 Lab Routine Surgical follow up visit Expected: 02/13/2021 reflex Postsurgical malabsorption ( Approximate), Expires: 2021 documented as of this encounter Visit Diagnoses Diagnosis Surgical followup visit - Primary Follow-up examination, following unspeci fied surgery Postsurgical malabsorption Other and unspecified postsurgical nonab sorption documented in this encounter Care Teams Tank House Supervisor Relationship Specialty Start Date End Date Matheus Feliciano MD PCP - General 03/23/20 [facility] [address] [facility] [place] [address] Car Joel MD Assigned Surgical Provider 06/01/20 [address] [place] [address] documented as of this encounter
--- OUTSIDE RECORDS SUMMARY | 2022-04-29 07:25 | XMS_ITS | Encounter Summary ---
:1980 Author Organization [place] Address [address] [place] [address]. [place] [address] Care Team Providers Name Role Phone Matheus Feliciano MD Primary Care Provider Reason for Visit Reason Onset Date Comments Call Back 04/17/2020 Encounter Details Date Type Department Care Team Description 04/17/2020 Telephone [facility] Surgery Car Joel MD Call Back Clinic [place] [address] [place] [address] [address] [place] [address] [phone] Social History Tobacco Use Types Packs/Day Years Used Date Former Smoker Cigarettes Smokeless Tobacco: Never Used Comments: as a child Alcohol Use Standard Drinks/Week Comments No 0 (1 standard drink = 0.6 oz pure alcoho l) Sex Assigned at Date Recorded 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 documented as of this encounter Miscellaneous Notes Telephone Encounter - Jahaira Frost RN - 04/17/2020 4:35 PM CDT Called patient, Amador answered. Patient was not available to take call, but discussed with Amador. Informed him that any type of soap can be used, but to not scrub directly over the incision area. He verbalized understanding and they will call PRN. Jahaira Frost RN-BSN Telephone Encounter - Sharla Nelson - 04/17/2020 3:46 PM CDT Name of caller: Patient Reason for Call: Call back patient wondering what kind/if any soap she can use to clean around surgical site when she showers. Please call Surgeon: Dr. Joel Recent Surgery: yes If yes, when & what type: 04/12/20 LAPAROSCOPIC HIATAL HERNIA REPAIR WITH MESH Best phone number to reach pt at is: [phone] Ok to leave a message with medical info? Yes. documented in this encounter Plan of Treatment Not on filedocumented as of this encounter Visit Diagnoses Not on filedocumented in this encounter Care Teams Steamboat Pilot Relationship Specialty Start Date End Date Matheus Feliciano MD PCP - General 03/23/[address] [place] [address] documented as of this encounter
--- OUTSIDE RECORDS SUMMARY | 2022-04-29 07:25 | XMS_ITS | Encounter Summary ---
:1980 Author Organization [place] Address [address] [place] [address]. [place] [address] Care Team Providers Name Role Phone Matheus Feliciano MD Primary Care Provider Reason for Visit Reason Onset Date Comments request for meds 05/04/2020 Encounter Details Date Type Department Care Team Description 05/04/2020 Telephone [facility] Surgery Car Joel MD request for meds Clinic [place] [address] [place] [address] [place] [address] [phone] Social History Tobacco Use Types Packs/Day Years Used Date Former Smoker Cigarettes Smokeless Tobacco: Never Used Comments: as a child Alcohol Use Standard Drinks/Week Comments No 0 (1 standard drink = 0.6 oz pure alcoho l) Sex Assigned at Date Recorded Female 06/29/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 Jahaira Frost, RN-BSN Telephone Encounter - Richa Villasenor - 05/04/2020 11:52 AM CDT Patient had surgery w/LEL 04/12/20 lap hernia repair Would like refill on Cyclobenzaprine Amador (spouse)[phone] Pharmacy is [facility] in [place], [place] documented in this encounter Plan of Treatment Not on filedocumented as of this encounter Visit Diagnoses Diagnosis Postoperative pain - Primary Other acute postoperative pain Hiatal hernia Diaphragmatic hernia without mention of obstruction or gangrene documented in this encounter Care Teams Road Packer Operator Relationship Specialty Start Date End Date Matheus Feliciano MD PCP - General 03/23/[address] [place] [address] documented as of this encounter
--- OUTSIDE RECORDS SUMMARY | 2022-04-29 07:25 | XMS_ITS | Encounter Summary ---
:1980 Author Organization [place] Address [address] [place] [address]. [place] [address] Care Team Providers Name Role Phone Matheus Feliciano MD Primary Care Provider Reason for Visit Reason Comments Medication Refill Encounter Details Date Type Department Care Team Description 04/17/[address] 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
--- OUTSIDE RECORDS SUMMARY | 2022-04-29 07:25 | XMS_ITS | Encounter Summary ---
:1980 Author Organization [place] Address [address] [place] [address]. 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 documented as of this encounter Plan of Treatment Not on filedocumented as of this encounter Visit Diagnoses Not on filedocumented in this encounter Care Teams Tunnel Worker Relationship Specialty Start Date End Date Matheus Feliciano MD PCP - General 03/23/[address] [address] documented as of this encounter
--- OUTSIDE RECORDS SUMMARY | 2022-04-29 07:25 | XMS_ITS | Encounter Summary ---
:1980 Author Organization [place] Address [address] [place] [address]. [place] [address] Care Team Providers Name Role Phone Matheus Feliciano MD Primary Care Provider Encounter Details Date Type Department Care Team Description 04/19/2020 Telephone [facility] Surgery Car Joel MD Clinic [place] [address] [place] [place] [address] [address] [place] [phone] [phone] Social History Tobacco Use Types Packs/Day Years Used Date Former Smoker Cigarettes Smokeless Tobacco: Never Used Comments: as a child Alcohol Use Standard Drinks/Week Comments No 0 (1 standard drink = 0.6 oz pure alcoho l) Sex Assigned at Date Recorded Female 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 Jahaira Frost RN-BSN Telephone Encounter - Richa Villasenor - 04/19/2020 1:21 PM CDT Please call, having trouble after surgery, feels lieke food is getting stuck other than just liquidsor creamy liquids Message ok documented in this encounter Plan of Treatment Not on filedocumented as of this encounter Visit Diagnoses Diagnosis Hiatal hernia Diaphragmatic hernia without mention of obstruction or gangrene documented in this encounter Care Teams Freight Separator Relationship Specialty Start Date End Date Matheus Feliciano MD PCP - General 03/23/[address] [place] [address] documented as of this encounter
--- OUTSIDE RECORDS SUMMARY | 2022-04-29 07:25 | XMS_ITS | Encounter Summary ---
:1980 Author Organization [place] Address [address] [place] [address]. [place] [address] Care Team Providers Name Role Phone Matheus Feliciano MD Primary Care Provider Car Joel MD Unavailable Encounter Details Date Type Department Care Team Description 01/31/[address] 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 Fax number is [phone]. Please see TE from Rehana about what labs needs to be faxed over. Thanks! documented in this encounter Plan of Treatment Not on filedocumented as of this encounter Visit Diagnoses Not on filedocumented in this encounter Care Teams Chemical Waste Management Technician Relationship Specialty Start Date End Date Matheus Feliciano MD PCP - General 03/23/[address] [place] [phone] Car Joel MD Assigned Surgical Provider 06/01/20 [address] [place] [address] documented as of this encounter
--- OUTSIDE RECORDS SUMMARY | 2022-04-29 07:25 | XMS_ITS | Encounter Summary ---
:1980 Author Organization [place] Address [address] [place] [address]. [place] [address] Care Team Providers Name Role Phone Matheus Feliciano MD Primary Care Provider Encounter Details Date Type Department Care Team Description 05/24/2020 Telephone [facility] Surgical [facility] E olga Henley PA-C [address] [facility] [address] [facility] [address] [place] [address] [place] [address] [phone] Social History Tobacco Use Types Packs/Day Years Used Date Former Smoker Cigarettes Smokeless Tobacco: Never Used Comments: as a child Alcohol Use Standard Drinks/Week Comments No 0 (1 standard drink = 0.6 oz pure alcoho l) Sex Assigned at Date Recorded Female 06/29/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 documented as of this encounter Miscellaneous Notes Telephone Encounter - Valarie Castro RN - 05/24/2020 2:35 PM CDT Called pt to reach out per TIA to set up diet visit now that patient is recovered from hiatal hernia repair. Assisted pt to set up video visit. Valarie Castro RN on 05/24/2020 at 2:46 PM documented in this encounter Plan of Treatment Not on filedocumented as of this encounter Visit Diagnoses Not on filedocumented in this encounter Care Teams Clinical Lab Scientist Relationship Specialty Start Date End Date Matheus Feliciano MD PCP - General 03/23/[address] [address] documented as of this encounter
--- OUTSIDE RECORDS SUMMARY | 2022-04-29 07:25 | XMS_ITS | Encounter Summary ---
:1980 Author Organization [place] Address [address] [place] [address]. 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 documented as of this encounter Plan of Treatment Not on filedocumented as of this encounter Visit Diagnoses Not on filedocumented in this encounter Care Teams Bike Technician Relationship Specialty Start Date End Date Matheus Feliciano MD PCP - General 03/23/[address] [facility] [address] [place] [address] Car Joel MD Assigned Surgical Provider 06/01/20 [address] [place] [address] documented as of this encounter
--- OUTSIDE RECORDS SUMMARY | 2022-04-29 07:25 | XMS_ITS | Encounter Summary ---
:1980 Author Organization [place] Address [facility] 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 PHYSICAL MEDICINE SPECIALIST SURGERY hysterectomy Allergies Allergen Reactions ??? Keflex [...] Patient fluticasone (FLONASE) 50 MCG/ACT nasal spray [place] 30 mcg in nostril daily as needed [...] (Last set prior to Anesthesia Care Transfer) ENGINEERED WOOD DESIGNER VITALS 04/12/2020 1320 - 04/12/2020 1351 04/12/2020 Resp Rate (set): 10 Electronically Signed By: Annette Saeed APRN ENGINEERED WOOD DESIGNER April 12, 2020 1:51 PM documented in [...] Intra-op documented in this encounter Care Teams Geodesist Relationship Specialty Start Date End Date Matheus Feliciano MD PCP - General 03/23/[address] [place] [address] documented as of this encounter
--- OUTSIDE RECORDS SUMMARY | 2022-04-29 07:25 | XMS_ITS | Encounter Summary ---
:1980 Author Organization [place] Address [address] [place] [address]. [place] [address] Care Team Providers Name Role Phone Matheus Feliciano MD Primary Care Provider Reason for Visit Reason Comments Surgical Followup Laparoscopic Hiatal Hernia r epair on 04/12/20 Encounter Details Date Type Department Care Team Description 04/30/2020 Office Visit [facility] Car Joel, Surgery follow-up Surgery Clinic [place] FLORES examination (Primary [address] ) [address] [place] [address] [place] [id number] Social History Tobacco Use Types Packs/Day Years Used Date Former Smoker Cigarettes Smokeless Tobacco: Never Used Comments: as a child Alcohol Use Standard Drinks/Week Comments No 0 (1 standard drink = 0.6 oz pure alcoho l) Sex Assigned at Date Recorded Female 06/29/2021 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
--- OUTSIDE RECORDS SUMMARY | 2022-04-29 07:25 | XMS_ITS | Encounter Summary ---
:1980 Author Organization [place] Address [address] [place] [address]. [place] [address] Care Team Providers Name Role Phone Matheus Feliciano MD Primary Care Provider Car Joel MD Unavailable Reason for Visit Reason Comments Erroneous encounter-disregard Encounter Details Date Type Department Care Team Description 02/06/2021 Virtual Visit [facility] Car Joel, [facility] Surgery Clinic [place] FLORES ENCOUNTER--DISREGARD [address] (P rimary Dx) [address] [place] [address] [place] [id number] Social History Tobacco Use Types Packs/Day Years Used Date Former Smoker Cigarettes Smokeless Tobacco: Never Used Comments: as a child Alcohol Use Standard Drinks/Week Comments No 0 (1 standard drink = 0.6 oz pure alcoho l) Sex Assigned at Date Recorded Female 06/29/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
--- OUTSIDE RECORDS SUMMARY | 2022-04-29 07:25 | XMS_ITS | Encounter Summary ---
:1980 Author Organization [facility] Address [address] [place] [address]. [place] [address] Care Team Providers Name Role Phone Matheus [...] [address], [address] [place] [phone] Phone: Referral ID Status Reason Start Date Expiration Date Visits Requ ested Visits Authorized [id number] 1 1 Encounter Details Date Type Department Care Team Description [facility] 04/14/2020 Jimmy Nelson MD Hiatal hernia; Intermediate Care [address] Hiatal hernia [address] [place] [address] [place] [phone] Social History Tobacco Use Types Packs/Day Years Used Date Former Smoker Cigarettes Smokeless Tobacco: Never Used Comments: as a child Alcohol Use Standard Drinks/Week Comments No 0 (1 standard drink = 0.6 oz pure alcoho l) Sex Assigned at Date Recorded Female 06/29/2021 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 Call [phone] to schedule this. Our clinic's name is [facility]. Our clinic's name is [facility]. The address is [facility] [address], [address], [place], [address] Follow-up and recommended labs and tests Clinic [...] 2 weeks. Josie Medina PA-C [facility] [phone] Associated attestation - Car Joel MD - 04/19/2020 1:02 PM CDT Physician Attestation ICar MD, have reviewed and discussed with the advanced practice provider their discharge plan for Gricelda Roberts. I did not participate in a shared visit by interviewing or examining thepatient and this should be billed as an advanced practice provider only discharge. Car NelsonRafal Surrey documented in this encounter Discharge Instructions Discharge [...] or school ?? Do Not go to taoism, child day care provider centers, shopping, or other public places. ?? [...] at home, please visit the CDCwebsite at https://www.cdc.gov/coronavirus/2019-ncov/about/fnyfx-jgjd-mnmp.html For more options for care at [facility], please visit our website at [email or web address] [facility] Discharge Instructions: Post-Operative [...] prescribed pain medication. If you are taking [place] or Percocet, do not take any additional [...] like to be seen,please call us at [phone] and ask to speak with our nurse. We are located at [address] [facility] [address] [place] [address]. CALL OUR OFFICE IF YOU HAVE: ??? Chills or fever above 101.5??F. ??? Increased redness or drainage at your incisions. ??? Significant bleeding. ??? Pain not relieved by your pain medication or rest. ??? Increasing pain after the first 48 hours. ??? Any other concerns or questions. Revised August 2017 If you have questions or concerns about your procedure, call Dr. Joel at [phone] documented in this encounter Medications at Time [...] MG tablet mouth daily fluticasone (FLONASE) 50 [place] 30 mcg in 0 MCG/ACT nasal spray [...] -- 12.3 Josie Medina PA-C [facility] [phone] Associated attestation - Car Joel MD - [...] (Not on file) admission is complete. 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 Plan of Care - Douglas Sidhu [...] Medina PA-C - 04/12/2020 1:59 PM CDT [facility] Brief Operative Note Pre-operative diagnosis: Hiatal hernia [K44.9] Post-operative diagnosis Same Procedure: LAPAROSCOPIC HIATAL HERNIA REPAIR WITH MESH Laparoscopic gastropexy Surgeon: * Car Joel MD - Primary * Josie Medina PA-C - Assisting Anesthesia: General Estimated blood loss: 10cc Findings: As above. No immediate complications. See operative report for full details. Implants: Implant Name Type Inv. Item Serial No. Marine Equipment Engineer Lot No. [id number] No. Used Action MESH BIO-A TISSUE REINFORCEMENT [id number] Mesh MESH BIO-A TISSUE REINFORCEMENT [id number] [employer] N/A 1 Implanted Josie Medina PA-C [facility] [phone] Provider Notification - Leonarda Tapia RN - 04/12/2020 10:[address] Monaco made aware of K+:3.3 in pre-op. No replacement needed. Op Note - Car Joel MD - 04/12/2020 8:55 AM CDT Surgeon: Car Joel MD. DRIVER OPERATOR: Josie Medina PA-C,The physicians personal injury legal assistant was medically necessary for their expertise in [...] left judy of the diaphragm. A 46 Estonian bougie was placed through the esophagus, passing [...] Platelet Count 249 150 - 450 04/13/2020 [place] 10e9/L 7:42 AM CDT [facility] Specimen Anatomical Collection Method Collection Time Receive d Time (Source) Location / / Volume Laterality Blood specimen 04/13/2020 7:15 AM 020 7:16 (specimen) CDT AM CDT Authorizing Provider Result Елена Joel MD LAB - BLOOD ORDERABLES Performing Organization Address City/[facility]/ZIP Code Phon e Number M [facility] [address] [place] [phone] [facility] [address] [place] [address], [facility] [phone] Glucose (04/13/2020 7:15 AM CDT) athologist Signature Glucose 94 70 - 99 04/13/2020 [place] mg/dL 8:04 AM CDT [facility] Specimen Anatomical Collection Method Collection Time Receive d Time (Source) Location / / Volume Laterality Blood specimen 04/13/2020 7:15 AM 020 7:16 (specimen) CDT AM CDT Car Joel MD LAB - BLOOD ORDERABLES Performing Organization Address City/State/ZIP Code Phon e Number M [facility] [address] [place] [address] [facility] [address] [place] [address], [place] [phone] (ABNORMAL) Electrolyte panel (04/13/2020 7:15 AM CDT) athologist Signature Sodium 142 133 - 144 04/13/2020 [place] mmol/L 8:02 AM [facility] Potassium 3.9 3.4 - 5.3 04/13/2020 [place] mmol/L 8:02 AM [facility] Chloride 112 (H) 94 - 109 04/13/2020 [place] mmol/L 8:02 AM [facility] Carbon Dioxide 26 20 - 32 04/13/2020 [place] mmol/L 8:04 AM [facility] Anion Gap 4 3 - 14 04/13/2020 [place] mmol/L 8:04 AM [facility] Specimen Anatomical Collection Method Collection Time Receive d Time (Source) Location / / Volume Laterality Blood specimen 04/13/2020 7:15 AM 020 7:16 (specimen) CDT AM CDT Josie Medina PA-C LAB - BLOOD ORDERABLES Performing Organization Address City/State/ZIP Code Phon e Number M [facility] [address] [place] [address] [phone] [facility] [address] [place] [address], [place] [phone] Hemoglobin (04/13/2020 7:15 AM CDT) P athologist Signature Hemoglobin 11.9 11.7 - 15.7 04/13/2020 [place] g/dL 7:42 AM T [facility] Specimen Anatomical Collection Method Collection Time Receive d Time (Source) Location / / Volume Laterality Blood specimen 04/13/2020 7:15 AM 7:16 (specimen) CDT AM CDT Josie Medina PA-C LAB - BLOOD ORDERABLES Performing Organization Address City/State/ZIP Code Phon e Number M [facility] [address] [address] [facility] [address] [address], [place] [phone] Creatinine (04/12/2020 8:02 PM CDT) athologist Signature Creatinine 0.62 0.52 - 1.04 04/12/2020 [place] mg/dL 8:36 PM [facility] GFR Estimate >90 >60 04/12/2020 [place] mL/min/{1.7 8:36 PM [facility] 3_m2} [facility] Comment: Non GFR Calc Starting 07/27/2018, serum creatinine ba sed estimated GFR (eGFR) will be calculated using the Chronic Kidney Dise page hospital Epidemiology Collaboration (CKD-EPI) equation. GFR Estimate If >90 >60 mL/min/{1.73_m2} 04/12/2020 8: 36 PM [facility] Comment: GFR Calc Starting 07/27/2018, serum [...] Address City/State/ZIP Code Phon e Number M [facility] [address] [address] [phone] [facility] [address] [place] [address], [place] [phone] (ABNORMAL) Potassium (04/12/2020 9:30 AM CDT) athologist Signature Potassium 3.3 (L) 3.4 - 5.3 04/12/2020 [place] mmol/L 9:55 AM CDT [facility] Specimen Anatomical Collection Method Collection Time Receive d Time (Source) Location / / Volume Laterality Blood specimen 04/12/2020 9:30 AM 020 9:39 (specimen) CDT AM CDT Car Joel MD LAB - BLOOD ORDERABLES Performing Organization Address City/State/ZIP Code Phon e Number M [facility] [address] [place] [address] [phone] [facility] [address] [place] [address], [place] [phone] BLADDER SCAN RESULT - HIM SCAN (04/12/2020 [...] when administering multiple Cent ral Nervous System (MANAGER MACHINE) depressing meds within a short time frame., Post-procedure diphenhydrAMINE (BENADRYL) injection 25 mg 25 mg, Intravenous, EVERY 6 HOURS PRN, i tching, Only give if patient unable to take PO., Starting on [place] 04/12/20 at 1725, Cau tion to be used when administering multiple Central Nervous System (MANAGER MACHINE) depressing meds within a short time frame. [...] falls below 50% of baseline or less hhhl780,000/??L and notify provider., Post-procedure Given 04/13/2020 10:42 [...] opioid. ~ Hold dose while on IV EVP AND CHIEF OPERATING OFFICER. ~ Hold dose for analgesic side effects. [...] on patient (no barcode scan needed). See [facility] h order for dose information., Post-procedure [...] RN)113 (Given - Provider: Annette Saeed APRN DEICER REPAIRER) Routine, 900 mg, Intravenous, PRE-OP/PRE -PROCEDURE, Starting [...] falls below 50% of baseline or less yjzk821,000/??L and notify provider., Post-procedure escitalopram (LEXAPRO) tablet [...] 1 patch, Transdermal, EVERY 72 HOURS, Ad floral designer salesperson over 72 Hours, First dose on Thu04/12/20 [...] used when administering multiple Central Nervous System (MANAGER MACHINE) depressing meds within a short time frame., Post-procedure diphenhydrAMINE (BENADRYL) injection 25 mg(Linked Group 2) 25 mg, Intravenous, EVERY 6 HOURS PRN, i tching, Only give if patient unable to take PO., Starting [place] 04/12/20 at 1725, Caution to be used when administering multiple Central Nervous System (MANAGER MACHINE) depressi ng meds within a short time [...] opioid. ~ Hold dose while on IV EVP AND CHIEF OPERATING OFFICER. ~ Hold dose for analgesic side effects. [...] Douglas Sidhu, ANTONIA)1438 (Given - Provider: Edmond cMgee RN) 4 mg, Oral, EVERY 6 HOURS [...] 1 patch, Transdermal, EVERY 72 HOURS, Ad floral designer salesperson over 72 Hours, First dose on [place]ira [...] used when administering multiple Central Nervous System (MANAGER MACHINE) depressing meds within a short time frame.
Post-procedure Or diphenhydrAMINE (BENADRYL) injection 25 mgJump to med 25 mg, Intravenous, EVERY 6 HOURS PRN, i tching, Only give if patient unable to take PO., Starting [place] 04/12/20 at 1725
Caution to be used when administering multiple Central Nervous System (MANAGER MACHINE) depressing meds within a short time fram [...]
Post-procedure documented in this encounter Care Teams Director Blood Bank Relationship Specialty Start Date End Date Matheus Feliciano MD PCP - General 03/23/[address] [place] [id number] documented as of this encounter
--- OUTSIDE RECORDS SUMMARY | 2022-04-29 07:26 | XMS_ITS | Encounter Summary ---
:1980 Author Organization [facility] Address [address] [place] [address]. [place] [address] Care Team Providers Name Role Phone Nemesio Costa MD Primary Care Provider Reason for Visit Auth/Cert Specialty Diagnoses / Procedures Referred By Contact Refer red To Contact Gastroenterology Diagnoses LUQ abdominal pain Bariatric surgery status LUQ abdominal pain [R10.12] Bariatric surgery status [Z98.84] Rh Endoscopy Procedures HC UGI ENDOSCOPY DIAG W OR W/O BRUSH/WASH ESOPHAGOGASTRODUODENOSCOPY (EGD) (fv) [address] [place] [address] Phone: Fax: Referral ID Status Reason Start Date Expiration Date Visits Requ ested Visits Authorized [id number] 1 1 Encounter Details Date Type Department Care Team Description 12/28/[address] 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 Helicobacter Pylori Culture (Malaysian)H. pylori and Ulcers, Understanding (Malaysian)documented in this encounter Medications at Time of [...] 20 MG tablet daily fluticasone (FLONASE) [address] [place] 30 mcg in 0 MCG/ACT nasal spray [...] daily Reported, Patient Fluticasone Propionate (FLONASE NA) [place] 30 mcg in nostril Reported, Patient gabapentin [...] status Special Needs Emailed EGD instructions to [email or web address] per patient. Gave pt # to [facility] schedulers [phone] . Reminded pt to wear a mask and enter through Main front door. UPPER GI ENDOSCOPY Routine 12/28/2019 9:19 AM CDT Results for this procedure are in the results sec tion. documented in this encounter Results Surgical pathology exam (12/28/2019 9:44 AM CDT) Component Value Ref Test Analysis Performed At [facility] Range Method Time Signature Copath Report Patient Name: GRICELDA ROBERTS MR#: [id number] Specimen #: [id number] Collected: 12/28/2019 Received: 12/28/2019 Reported: 12/29/2019 10:36 [...] of this testing was completed at the [facility], with the professional compo nent performed at the [facility], [address] [place] [address] ??[phone] ([phone]) CPT Codes: A: 37654-DU8 COLLECTION SITE: Client: [facility] Location: [facility] (R) Specimen (Source) Anatomical Collection Method Collection Time Re ceived Time Location / / Volume Laterality Tissue specimen STOMACH STRUCTURE 12/28/2019 9:44 AM (specimen) / Unknown CDT [place] VILLARREAL - NERY MARLOW Performing Organization Address City/State/ZIP Code Phon e Number COPATH UPPER GI ENDOSCOPY (12/28/2019 9:19 AM CDT) Component Value Ref Test Analysis Performed At [facility] Range Method Time Signature Upper [facility] RADIO LOGY Endoscopy RESULTS Patient Name: Gricelda Lamcalf ?Procedure Date: 12/28/2019 9:19 AM ? Accou nt Number: [id number] Date of : 1980 ? Admit Type: [...] # [id number], [place] # ?[id number], SN # [id number] was introduced through the mouth, ?and advanced [...] mu cosa. This was ? traversed. The whphl-mr-byciedu limb was characterize d by healthy ? appearing mucosa. The ylrtkhwp-kv-kffjptb limb was examined. Biopsies ? were taken [...] Procedure Code(s): ? --- Professional --- ? 78977, Esophagogastroduodenoscopy, flexible, transo ral; with biopsy, ? single or multiple Diagnosis Code(s): ? --- Professional --- ? R10.12, Left upper quadrant pain CPT copyright 2018 [employer]. All rights reserved. The codes documented in this report are prelimin tabatha and upon gear and spline grinder review may be revised to meet current compliance requirements. Electronically signed by [place] Li MD [place] iL MD 12/28/2019 9:50:40 AM I was physically present for the entire viewing portion of t he exam. [place] Li MD Number of Addenda: 0 Note Initiated On: 12/28/2019 9:19 AM MRN: ?[id number] Procedure Date: ? 12/28/2019 9:19:08 AM Total [...]
Post-procedure documented in this encounter Care Teams Electric Motor Tester Assembler Relationship Specialty Start Date End Date Nemesio Costa MD PCP - General 05/30/11 03/22/20 documented as of this encounter
--- OUTSIDE RECORDS SUMMARY | 2022-04-29 07:26 | XMS_ITS | Encounter Summary ---
:1980 Author Organization [facility] Address [address] [place] [address]. [place] [address] Care Team Providers Name Role Phone Nemesio Costa MD Primary Care Provider Encounter Details Date Type Department Care Team Description 01/30/2020 Telephone [facility] Surgery Car Joel MD Clinic [place] [address] [place] [place] [address] [address] [place] [id number] [phone] Social History Tobacco Use Types Packs/Day Years Used Date Former Smoker Cigarettes Smokeless Tobacco: Never Used Comments: as a child Alcohol Use Standard Drinks/Week Comments No 0 (1 standard drink = 0.6 oz pure alcoho l) Sex Assigned at Date Recorded Female 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 Verbalized agreement. Valarie Castro RN on 02/08/2020 at 3:30 PM Telephone Encounter - Rehana Anaya RN - 01/30/2020 3:31 PM CDT Offered patient first available appointment on 02/13/2020. States she will be out of town. Next available appointment is 02/14 at 1230. Will take this. Offered virtual visit because patient wanted her available. She declined and wanted in clinic with her. Informed her hospital and clinic policy that visitors not allowed. Patient stated her knows her medical history. Again offered a virtual visit and patient declined and will come by self for visit. Rehana Bryan MS, RD, RN Telephone Encounter - Rehana Anyaa RN - 01/30/2020 1:53 PM CDT Patient LM on nurse line as well re: appointment for hiatal hernia. Called patient who stated she called last week and requested appointment. This sheet writer sees no Epic note re: the conversation. Informed patient that her provider was out of clinic last week. Patient stated that she is in pain daily and finding it difficult to eat due to the pain LUQ. Has lost 13# since . Has had a seizure because she hasn't been able to take her meds (Neurontin). Would like to see surgeon. Informed patient that providers are prioritizing when they will see patients including [place] patients. I have contacted her surgeon and may not get back to her until Thursday. He has no appointments this Thursday but possibly 02/12 or if he okay's. Offered patient visit with TIA but not interested because most likely won't be able to let her knowif surgery is needed. Will get back to patient by Thursday re: surgeon's reply re: seeing her. Patient verbalized understanding and is agreeable to plan - although sounds teary. Rehana Bryan MS, RD, RN .. Telephone Encounter - Pancho Reeder - 01/30/2020 11:22 AM CDT Pt was waiting for a callback to try to see Dr. Gadsden this Wed, and I also put in nurse vm. She is in major discomfort, hernia related, but also a re-est care pt of ours. Can someone please call her today? [phone] (work # is preferred) OK to leave detailed VM documented in this encounter Plan of Treatment Not on filedocumented as of this encounter Visit Diagnoses Not on filedocumented in this encounter Care Teams Senior Payroll Specialist Relationship Specialty Start Date End Date Nemesio Costa MD PCP - General 05/30/11 03/22/20 documented as of this encounter
--- OUTSIDE RECORDS SUMMARY | 2022-04-29 07:26 | XMS_ITS | Encounter Summary ---
:1980 Author Organization [facility] Address [facility] [place] [address] Care Team Providers Name Role Phone Nemesio Costa MD Primary Care Provider Encounter Details Date Type Department Care Team Description 03/21/2020 Prep for Procedure [facility] Car Joel, H iatal hernia Surgery Clinic [place] FLORES (Primary Dx) [address] [place] [address] [place] [address] [phone] Social History Tobacco Use Types Packs/Day Years Used Date Former Smoker Cigarettes Smokeless Tobacco: Never Used Comments: as a child Alcohol Use Standard Drinks/Week Comments No 0 (1 standard drink = 0.6 oz pure alcoho l) Sex Assigned at Date Recorded Female 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
--- OUTSIDE RECORDS SUMMARY | 2022-04-29 07:26 | XMS_ITS | Encounter Summary ---
:1980 Author Organization [facility] Address [address] [place] [address]. [place] [address] Care Team Providers Name Role Phone Nemesio Costa MD Primary Care Provider Reason for Visit Reason Onset Date Comments Clinic Care Coordination - Follow-up 01/04/2020 Encounter Details Date Type Department Care Team Description 01/04/2020 Telephone [facility] Randi Contreras, Clinic C are Coordination Surgical Weight Loss ANTONIA Kimball - Follow-up Clinic [facility] WEIGHT LOSS [address] [facility] [address] [facility] [address] [place] [address] [place] [address] Social History Tobacco Use Types Packs/Day Years Used Date Former Smoker Cigarettes Smokeless Tobacco: Never Used Comments: as a child Alcohol Use Standard Drinks/Week Comments No 0 (1 standard drink = 0.6 oz pure alcoho l) Sex Assigned at Date Recorded Female 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
--- OUTSIDE RECORDS SUMMARY | 2022-04-29 07:26 | XMS_ITS | Encounter Summary ---
:1980 Author Organization [facility] Address [address] [place] [address]. [place] [address] Care Team Providers Name Role Phone Nemesio Costa MD Primary Care Provider Reason for Referral (Routine) - Closed Specialty Diagnoses / Procedures Referred By Contact Refer red To Contact Diagnoses LUQ abdominal pain Bariatric surgery status Car Joel MD [address] [place] [address] Referral ID Status Reason Start Date Expiration Date Visits Requ ested Visits Authorized [id number] Closed 12/16/2019 12/15/2020 1 1 Scheduling Instructions Per TIA, would like this done within 1 week please. 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 documented as of this encounter Miscellaneous Notes Telephone Encounter - Rehana Anaya RN - 12/19/2019 10:17 AM CDT Spoke with Ector at [facility] EGD scheduling. Per Ector, her manager country must review all orders and approve prior to scheduling. Once approved, her department will call patient to schedule. This should occur today - no later than tomorrow. That is why this property underwriter could not make the EGD appointment today. Called patient and LM that [facility] will be calling her to schedule her procedure by tomorrow. Requested patient call clinic to verify this message was received. Rehana Bryan, MS, RD, RN Telephone Encounter - Valarie Castro RN - 12/16/2019 4:31 PM CDT Consulted Randi Shepherd PA-C by phone. Discussed pt concerns. Care plan per TIA as follows: -increase protonix to 40 mg BID x 2 months. TORB given for protonix 40 mg BID x 60 days. -stop caffeine -pt may do EGD now (risks are perforation and COVID exposure) or wait until after high dose protonixtreatment is complete. Pt must let us know her decision on this. -no need to call Dr. Joel directly at this time; CC him on care plan for any further recommendations. Called pt and updated her on care plan as above. Discussed risks of EGD with pt. Pt states she wantsto go ahead with the EGD and not wait. Wants to have this done at [facility]. Will wait for call to set up next week. Consulted EDWARD. TORB given for EGD within 1 week. See orders. RN will coordinate next week. Valarie Castro RN on 12/16/2019 at 5:00 PM Telephone Encounter - Montserrat Shepherd PA-C - 12/16/2019 3:32 PM CDT Yes, please have her increase protonix x 2 months to see if we can get this suspected ulcer under control. It takes time for an ulcer to heal especially when continuing to use caffeine. In my notes before I said we might need to do an EGD. When you talk to her, let her know this is an option to confirm ulcer as problem. I just hesitated to do this right away due to risk. MKD Telephone Encounter - Valarie Castro RN - 12/16/2019 2:31 PM CDT Called pt to check on status. Still having pain and still not able to eat very much. Lost 13 lbs since her birthday last month. Still having issues with feeling bloated. Dr. Joel told her she was not constipated on CT and that her weight loss was mostly water weight. However, she is concerned and has appt with primary care on 12/26 for further eval. States she was starting to feel better on the 40 mg protonix twice a day. Pain after eating was going away and was able to eat more than a few bites on this increased dose. When she cut back to 20 mg BID after the first week she began to have all the symptoms back, including unable to eat more than a few bites and having pain to LUQ immediately after eating. Would like to go back to 40 mg protonix BID if possible. Has cut back on caffeine some but still drinking 1 Monster or coffee daily to avoid caffeine withdrawal headaches. Strongly encouraged pt to cut back on caffeine with the goal of being off completely. Pt agrees to try. States she has replaced a lot of her caffeine with almond milk and protein powder. Would like rx to be sent to [facility] in [facility] if needed. Will consult PA, call pt back. Valarie Castro RN on 12/16/2019 at 2:53 PM documented in this encounter Plan of Treatment Scheduled Referrals Name Type Priority Associated [facility]oses 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
--- OUTSIDE RECORDS SUMMARY | 2022-04-29 07:26 | XMS_ITS | Encounter Summary ---
:1980 Author Organization [facility] Address [address] [place] [address]. [place] [address] Care Team Providers Name Role Phone Nemesio Costa MD Primary Care Provider Reason for Visit Reason Onset Date Comments Clinic Care Coordination - Follow-up 12/22/2019 Encounter Details Date Type Department Care Team Description 12/22/2019 Telephone [facility] Randi Contreras, Clinic C are Coordination Surgical Weight Loss ANTONIA Kimball - Follow-up Clinic [facility] WEIGHT LOSS [address] [facility] [address] [facility] [address] [place] [address] [place], [place] [address] Social History Tobacco Use Types Packs/Day Years Used Date Former Smoker Cigarettes Smokeless Tobacco: Never Used Comments: as a child Alcohol Use Standard Drinks/Week Comments No 0 (1 standard drink = 0.6 oz pure alcoho l) Sex Assigned at Date Recorded Female 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 documented as of this encounter Miscellaneous Notes Telephone Encounter - Rehana Anaya RN - 12/22/2019 9:44 AM CDT Patient was to have scheduled EGD at [facility]. This publications writer isn't able to see an appointment at this time. LM on patient's VM to call clinic with status. Kimball Ziemer, MS, RD, RN documented in this encounter Plan of Treatment Not on filedocumented as of this encounter Visit Diagnoses Not on filedocumented in this encounter Care Teams Complementary Health Therapists Relationship Specialty Start Date End Date Nemesio Costa MD PCP - General 05/30/11 03/22/20 documented as of this encounter
--- OUTSIDE RECORDS SUMMARY | 2022-04-29 07:26 | XMS_ITS | Encounter Summary ---
:1980 Author Organization [facility] Address [address] [place] [address]. [place] [address] Care Team Providers Name Role Phone Nemesio Costa MD Primary Care Provider Reason for Visit Auth/Cert Specialty Diagnoses / Procedures Referred By Contact Refer red To Contact Gastroenterology Diagnoses LUQ abdominal pain Bariatric surgery status LUQ abdominal pain [R10.12] Bariatric surgery status [Z98.84] Rh Endoscopy Procedures HC UGI ENDOSCOPY DIAG W OR W/O BRUSH/WASH ESOPHAGOGASTRODUODENOSCOPY (EGD) (fv) [address] [place] [address] Phone: Fax: Referral ID Status Reason Start Date Expiration Date Visits Requ ested Visits Authorized [id number] 1 1 Encounter Details Date Type Department Care Team Description 12/28/[address] [facility], ESOPHAGOGA STRODUODENOSCOPY (EGD) Endoscopy Houston Dewey MD with biopsies using biopsy forceps [facility] [address] [place]STROINTESTI [place], [place] [address] [place], [place] [id number] Surgery Details Date/Time Status Location OR Service [...] 1 Special Needs Emailed EGD instructions to [email or web address] per patient. Gave pt # to Covid Test schedulers [phone]. Reminded pt to wear a mask and enter through Main front door. 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 Helicobacter Pylori Culture (Cuban)H. pylori and Ulcers, Understanding (Cuban)documented in this encounter Medications at Time of [...] 20 MG tablet daily fluticasone (FLONASE) 50 Coffey 30 mcg in 0 MCG/ACT nasal spray [...] daily Reported, Patient Fluticasone Propionate (FLONASE NA) Coffey 30 mcg in nostril Reported, Patient gabapentin [...] status Special Needs Emailed EGD instructions to per patient. Gave pt # to Ynsect Test schedulers [phone] . Reminded pt to wear a mask and enter through Main front door. UPPER GI ENDOSCOPY Routine 12/28/2019 9:19 AM CDT Results for this procedure are in the results sec tion. documented in this encounter Results Surgical pathology exam (12/28/2019 9:44 AM CDT) Component Value Ref Test Analysis Performed At [facility] Method Time Signature Copath Report Patient Name: GRICELDA REID MR#: [id number] Specimen #: [id number] Collected: 12/28/2019 Received: 12/28/2019 Reported: 12/29/2019 10:36 [...] of this testing was completed at the [facility], with the professional compo nent performed at the [facility], [address] [place] [address] ??[phone] ([phone]) CPT Codes: A: 41702-WU2 COLLECTION SITE: Client: [facility] Specimen (Source) Anatomical Collection Method Collection Time Re ceived Time Location / / Volume Laterality Tissue specimen STOMACH STRUCTURE 12/28/2019 9:44 AM (specimen) / Unknown CDT Houston GABRIEL Performing Organization Address City/State/ZIP Code Phon e Number COPATH UPPER GI ENDOSCOPY (12/28/2019 9:19 AM CDT) Component Value Ref Test Analysis Performed At [facility] Range Method Time Signature Upper GI [facility] RADIO LOGY Endoscopy RESULTS Patient Name: Gricelda Reid ?Procedure Date: 12/28/2019 9:19 AM ? Accou nt Number: [id number] Date of : 1980 ? Admit Type: [...] # [id number], Endora # ?[id number], SN # [id number] was introduced through the mouth, ?and advanced [...] mu cosa. This was ? traversed. The ygixr-hd-cctkzyh limb was characterize d by healthy ? appearing mucosa. The abkoqnla-mt-umhlgyt limb was examined. Biopsies ? were taken [...] Procedure Code(s): ? --- Professional --- ? 93763, Esophagogastroduodenoscopy, flexible, transo ral; with biopsy, ? single or multiple Diagnosis Code(s): ? --- Professional --- ? R10.12, Left upper quadrant pain CPT copyright 2018 [employer]. All rights reserved. The codes documented in this report are prelimin tabatha and upon sole ruffer review may be revised to meet current compliance requirements. Electronically signed by Houston Li MD Houston Li MD 12/28/2019 9:50:40 AM I was physically present for the entire viewing portion of t he exam. Houston Li MD Number of Addenda: 0 Note Initiated On: 12/28/2019 9:19 AM MRN: ?[id number] Procedure Date: ? 12/28/2019 9:19:08 AM Total [...]
Post-procedure documented in this encounter Care Teams Executive Admin Relationship Specialty Start Date End Date Nemesio Costa MD PCP - General 05/30/11 03/22/20 documented as of this encounter
--- OUTSIDE RECORDS SUMMARY | 2022-04-29 07:26 | XMS_ITS | Encounter Summary ---
:1980 Author Organization [facility] Address [facility] [place] [address] Care Team Providers Name Role Phone Nemesio Costa MD Primary Care Provider Encounter Details Date Type Department Care Team Description 03/22/2020 Orders Only [facility] Car Joel MD Encounter for Surgery Clinic [place] [address] screening for other [address] viral diseases [address] [place] [address] (Primary Dx) [place] [phone] Social History Tobacco Use Types Packs/Day Years Used Date Former Smoker Cigarettes Smokeless Tobacco: Never Used Comments: as a child Alcohol Use Standard Drinks/Week Comments No 0 (1 standard drink = 0.6 oz pure alcoho l) Sex Assigned at Date Recorded Female 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 documented as of this encounter Plan of Treatment Not on filedocumented as of this encounter Results Asymptomatic COVID-19 Virus (Coronavirus) by PCR (04/08/2020 2:01 PM CDT) [facility] Method Time Signature COVID-19 Nasopharyngeal 04/08/2020 [place] Virus PCR to 2:14 PM CDT CLINICS U [facility] Source [place] COVID-19 Not Detected 04/09/2020 ADV[facility]ED Virus PCR to 10:30 PM RESEARCH AND U [facility] DIAGNOSTIC Result LABORATORY, [facility] Comment: Collection of multiple specimens from th [...] was heat inactivated and amplified using the HDPCR SARS-CoV-2 assay ([employer]media.). The HDPCRTM JAGUAR S-CoV-2 assay is a reverse plant changer real-time polymerase chain reaction (qRT-PCR) test intended [...] (Centers for Disease Control) Testing performed by [facility] ([facility]) [address] [facility] [address] [facility] [place] [address] The test performance characteristics wer e determined [...] Organization Address City/State/ZIP Code Phon e Number [employer] [place] [address] DIAGNOSTIC LABORATORY, [address] [facility] [address] [facility] [address] [place] [address] [facility] documented in this encounter Visit Diagnoses Diagnosis Encounter for screening for other viral diseases - Primary documented in this encounter Care Teams Choke Setter Relationship Specialty Start Date End Date Nemesio Costa MD PCP - General 05/30/11 03/22/20 documented as of this encounter
--- OUTSIDE RECORDS SUMMARY | 2022-04-29 07:26 | XMS_ITS | Encounter Summary ---
:1980 Author Organization [place] Address [address] [place] [address]. [place] [address] Care Team Providers Name Role Phone Nemesio Costa MD Primary Care Provider Reason for Visit Reason Onset Date Comments Clinic Care Coordination - Follow-up 01/03/2020 Encounter Details Date Type Department Care Team Description 01/03/2020 Telephone [facility] Randi Contreras, Clinic C are Coordination Surgical Weight Loss ANTONIA Kimball - Follow-up Clinic [facility] WEIGHT LOSS [address] [facility] [address] [facility] [address] [place] [address] [place], [place] [address] Social History Tobacco Use Types Packs/Day Years Used Date Former Smoker Cigarettes Smokeless Tobacco: Never Used Comments: as a child Alcohol Use Standard Drinks/Week Comments No 0 (1 standard drink = 0.6 oz pure alcoho l) Sex Assigned at Date Recorded 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
--- OUTSIDE RECORDS SUMMARY | 2022-04-29 07:26 | XMS_ITS | Encounter Summary ---
:1980 Author Organization [place] Address [address] [place] [address]. [place] [address] Care Team Providers Name Role Phone Nemesio Costa MD Primary Care Provider Encounter Details Date Type Department Care Team Description 01/03/2020 Telephone [facility] Surgical [facility] E olga Henley PA-C [address] [facility] out [address] [facility] [address] [place] [address] [place] [address] [phone] Social History Tobacco Use Types Packs/Day Years Used Date Former Smoker Cigarettes Smokeless Tobacco: Never Used Comments: as a child Alcohol Use Standard Drinks/Week Comments No 0 (1 standard drink = 0.6 oz pure alcoho l) Sex Assigned at Date Recorded 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 documented as of this encounter Miscellaneous Notes Telephone Encounter - Rehana Anaya RN - 01/03/2020 5:28 PM CDT Spoke with TIA Mariano re: note below. Patient referred to [facility] in [place]. Called patient and informed her re: above. Patient would like to go to [facility] in [place] if there is one. Informed patient I [...] GI consult down where she lives. This check writer is seeing that the above is a patient request. Informed patient this check writer would contact provider and contact patient with update. Patient stated okay to leave detailed message on VM. Rehana Bryan MS, RD, RN Telephone Encounter - Pancho Reeder - 01/03/2020 3:37 PM CDT Pt has been waiting for/expecting a call from Nurse Kimball. [phone] OK to leave detailed VM documented in this encounter Plan of Treatment Not on filedocumented as of this encounter Visit Diagnoses Not on filedocumented in this encounter Care Teams Director Informatics Relationship Specialty Start Date End Date Nemesio Costa MD PCP - General 05/30/11 03/22/20 documented as of this encounter
--- OUTSIDE RECORDS SUMMARY | 2022-04-29 07:26 | XMS_ITS | Encounter Summary ---
:1980 Author Organization [facility] Address [address] [place] [address] Care Team Providers Name Role Phone Nemesio Costa MD Primary Care Provider Matheus Feliciano MD Primary Care Provider Car Joel MD Unavailable Encounter Details Date Type Department Care Team Description 12/26/2019 Ambulatory - [facility] Doroteo Madison MD Encounter for [facility] Surgery Clinic and [address] screening for other Bariatrics Care [place], [place] viral disea [phone] (Work) [place], [place] [phone] [address] (Fax) [phone] Social History Tobacco Use Types Packs/Day Years Used Date Former Smoker Cigarettes Smokeless Tobacco: Never Used Comments: as a child Alcohol Use Standard Drinks/Week Comments No 0 (1 standard drink = 0.6 oz pure alcoho l) Sex Assigned at Date Recorded 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
--- OUTSIDE RECORDS SUMMARY | 2022-04-29 07:26 | XMS_ITS | Encounter Summary ---
:1980 Author Organization [facility] Address [address] [place] [address]. [place] [address] Care Team Providers Name Role Phone Nemesio Costa MD Primary Care Provider Matheus Feliciano MD Primary Care Provider Car Joel MD Unavailable Encounter Details Date Type Department Care Team Description 12/22/2019 Telephone [facility] Surgery Car Joel MD Clinic [place] [address] [place] [place] [address] [address] [place] [address] [phone] Social History Tobacco Use Types Packs/Day Years Used Date Former Smoker Cigarettes Smokeless Tobacco: Never Used Comments: as a child Alcohol Use Standard Drinks/Week Comments No 0 (1 standard drink = 0.6 oz pure alcoho l) Sex Assigned at Date Recorded 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 documented as of this encounter Miscellaneous Notes Telephone Encounter - Rehana Anaya RN - 12/23/2019 12:[address] [facility] and spoke with Gladys in scheduling. Patient was called to schedule but was NA and a message was left this Thursday or Thursday - exact datein trail unknown. Was given direct number to schedule. Scheduling is available until 5 pm. Patient most likely can get in next week. Called patient and LM to call [phone] to schedule and also requested she leave [...] and would like to speak to you [facility] [phone] ok to leave a detailed message documented in this encounter Plan of Treatment Not on filedocumented as of this encounter Visit Diagnoses Not on filedocumented in this encounter Care Teams Automatic Nailing Machine Feeder Relationship Specialty Start Date End Date Nemesio Costa MD PCP - General 05/30/11 03/22/20 Matheus Feliciano MD PCP - General 03/23/20 [facility] [address] [facility] [place] [address] Car Joel MD Assigned Surgical Provider 06/01/20 [address] [place] [address] documented as of this encounter
--- OUTSIDE RECORDS SUMMARY | 2022-04-29 07:26 | XMS_ITS | Encounter Summary ---
:1980 Author Organization [facility] Address [address] [place] [address]. [place] [address] Care Team Providers Name Role Phone Nemesio Costa MD Primary Care Provider Reason for Visit Reason Onset Date Comments Clinic Care Coordination - Follow-up 12/07/2019 Encounter Details Date Type Department Care Team Description 12/07/2019 Telephone [facility] Randi Contreras, Clinic C are Coordination Surgical Weight Loss ANTONIA Kimball - Follow-up Clinic [facility] WEIGHT LOSS [address] [facility] [address] [facility] [address] [place] [address] [place] [address] Social History Tobacco Use Types Packs/Day Years Used Date Former Smoker Cigarettes Smokeless Tobacco: Never Used Comments: as a child Alcohol Use Standard Drinks/Week Comments No 0 (1 standard drink = 0.6 oz pure alcoho l) Sex Assigned at Date Recorded Female 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
--- OUTSIDE RECORDS SUMMARY | 2022-04-29 07:26 | XMS_ITS | Encounter Summary ---
:1980 Author Organization [place] Address Critical access hospital0 [facility] [place] [address] Care Team Providers Name Role Phone Nemesio Costa MD Primary Care Provider Encounter Details Date Type Department Care Team Description 11/29/2019 Orders Only [facility] Car Joel MD Other acute gastritis Surgery [facility] [place] [address] without hemorrhage [address] (Primary Dx) [address] [place] [address] [place] [phone] Social History Tobacco Use Types Packs/Day Years Used Date Former Smoker Cigarettes Smokeless Tobacco: Never Used Comments: as a child Alcohol Use Standard Drinks/Week Comments No 0 (1 standard drink = 0.6 oz pure alcoho l) Sex Assigned at Date Recorded Female 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
--- OUTSIDE RECORDS SUMMARY | 2022-04-29 07:26 | XMS_ITS | Encounter Summary ---
:1980 Author Organization [place] Address [address] [place] [address]. [place] [address] Care Team Providers Name Role Phone Nemesio Costa MD Primary Care Provider Matheus Feliciano MD Primary Care Provider Car Joel MD Unavailable Reason for Visit Reason Comments Medication Refill Encounter Details Date Type Department Care Team Description 12/09/2019 Refill [facility] Surgical Car Lieberman MD Medication Refill Weight Loss Clinic [place] [address] [place] [address] [address] [place] [address] [phone] Social History Tobacco Use Types Packs/Day Years Used Date Former Smoker Cigarettes Smokeless Tobacco: Never Used Comments: as a child Alcohol Use Standard Drinks/Week Comments No 0 (1 standard drink = 0.6 oz pure alcoho l) Sex Assigned at Date Recorded Female 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
--- OUTSIDE RECORDS SUMMARY | 2022-04-29 07:26 | XMS_ITS | Encounter Summary ---
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 documented as of this encounter Plan of Treatment Not on filedocumented as of this encounter Visit Diagnoses Not on filedocumented in this encounter Care Teams Communications Instructor Relationship Specialty Start Date End Date Nemesio Costa MD PCP - General 05/30/11 03/22/20 documented as of this encounter
--- OUTSIDE RECORDS SUMMARY | 2022-04-29 07:26 | XMS_ITS | Encounter Summary ---
:1980 Author Organization [place] Address [address] [place] [address] Care Team Providers Name Role Phone Nemesio Costa MD Primary Care Provider Matheus Feliciano MD Primary Care Provider Car Joel MD Unavailable Reason for Visit Reason Comments Covid 19 Testing Encounter Details Date Type Department Care Team Description 12/26/2019 Office Visit - [facility] screening fo r other [facility] viral diseases [address] [place] [address] Social History Tobacco Use Types Packs/Day Years Used Date Former Smoker Cigarettes Smokeless Tobacco: Never Used Comments: as a child Alcohol Use Standard Drinks/Week Comments No 0 (1 standard drink = 0.6 oz pure alcoho l) Sex Assigned at Date Recorded Female 06/29/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 Read all labels to be sure [...] it can live on surfaces. ?? Common office supervisor (household disinfectants) will kill the virus. Who is at risk? Anyone can catch COVID-19 if they're around someone who has the virus. How can others protect themselves? ?? Stay away from people who have COVID-19 (or symptoms of COVID-19). ?? Wash hands often with soap and water. Or, use hand art psychotherapist or therapist with at least 60% alcohol. ?? Avoid touching the eyes, nose or mouth. ?? Wear a face mask when you go out in public, when sick or when caring for a sick person. For more about COVID-19 and caring for yourself at home, please visit the CDC website at https://www.cdc.gov/coronavirus/2019-ncov/about/wquan-sszr-gwcd.html. To learn about care at [facility], go to [email or web address]://[email or web address]. Below are the COVID-19 hotlines at the [facility] ([facility]). Interpreters are available. ?? For health questions: Call [phone] or (7 a.m. to 7 p.m.) ?? For questions about schools and childcare: Call [phone] or (7 a.m. to 7 p.m.) documented [...] (Coronavirus) by PCR (12/26/2019 3:57 PM CDT) [facility] Method Time Signature SARS-CoV-2 Nasopharyngeal 12/27/2019 Virus 11:23 PM CDT Specimen Source SARS-CoV-2 NEGATIVE 12/27/2019 PCR Result 11:23 PM CDT Comment: SARS-CoV2 (COVID-19) RNA not de tected, presumed negative. SARS-CoV-2 PCR Comment This automated, real-time 0 12/27/2019 11:23 PM CDT RT-PCR assay by [employer] on the GeneXpert Instrument Comment: Systems has [...] regulations. This test was valid ated by [facility] Infectious Diseases Diagnostic Laboratory. This lab oratory is certified under the Clinical Laboratory Improvement Amendments of 198 8 (CLIA-88) as qualified to perform high complexity clinical laboratory test ing. Performed and/or entered by: [facility] [address] [place] [address] Specimen (Source) Anatomical Collection Method Collection Time Re ceived Time Location / / Volume Laterality Respiratory Non-blood 12/26/2019 3:57 12/27/2019 4 :14 specimen (specimen) Collection / PM CDT PM CDT Unknown James Hamilton MD LAB - MICRO GENERAL ORDERABL ES documented in this encounter Visit Diagnoses Diagnosis Encounter for screening for other viral diseases documented in this encounter Care Teams Cylinder Press Feeder Relationship Specialty Start Date End Date Nemesio Costa MD PCP - General 05/30/11 03/22/20 Matheus Feliciano MD PCP - General 03/23/20 [facility] [address] [place] [address] Car Joel MD Assigned Surgical Provider 06/01/20 [address] [place] [address] documented as of this encounter
--- OUTSIDE RECORDS SUMMARY | 2022-04-29 07:26 | XMS_ITS | Encounter Summary ---
:1980 Author Organization [place] Address [address] [place] [address]. [place] [address] Care Team Providers Name Role Phone Nemesio Costa MD Primary Care Provider Reason for Visit Reason Comments Medication Refill Encounter Details Date Type Department Care Team Description 02/15/2020 Refill [facility] Surgery Montserrat Shepherd Medication Refill Clinic [place] Hen[place] PA-C [address] [place] [address] [place] [phone] Social History Tobacco Use Types Packs/Day Years Used Date Former Smoker Cigarettes Smokeless Tobacco: Never Used Comments: as a child Alcohol Use Standard Drinks/Week Comments No 0 (1 standard drink = 0.6 oz pure alcoho l) Sex Assigned at Date Recorded Female 06/29/2021 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
--- OUTSIDE RECORDS SUMMARY | 2022-04-29 07:26 | XMS_ITS | Encounter Summary ---
:1980 Author Organization [place] Address [address] [place] [address]. [place] [address] Care Team Providers Name Role Phone Nemesio Costa MD Primary Care Provider Encounter Details Date Type Department Care Team Description 12/23/2019 Orders Only [facility] er for screening Clinic Tania Dewey MD for other viral [address] [place] [address] N [facility] diseases (Primary Dx) [place], [place] GASTROINTESTINAL [address] [phone] [place], [place] [address] Social History Tobacco Use Types Packs/Day Years Used Date Former Smoker Cigarettes Smokeless Tobacco: Never Used Comments: as a child Alcohol Use Standard Drinks/Week Comments No 0 (1 standard drink = 0.6 oz pure alcoho l) Sex Assigned at Date Recorded Female 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
--- OUTSIDE RECORDS SUMMARY | 2022-04-29 07:26 | XMS_ITS | Encounter Summary ---
:1980 Author Organization [place] Address [address] [place] [address]. [place] [address] Care Team Providers Name Role Phone Nemesio Costa MD Primary Care Provider Encounter Details Date Type Department Care Team Description 03/06/2020 Documentation Only [facility] Cora, [place]errat Surgical Weight Loss Maco Henley A-C [place] [address] [place] [address] [phone] Social History Tobacco Use Types Packs/Day Years Used Date Former Smoker Cigarettes Smokeless Tobacco: Never Used Comments: as a child Alcohol Use Standard Drinks/Week Comments No 0 (1 standard drink = 0.6 oz pure alcoho l) Sex Assigned at Date Recorded Female 06/29/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 documented as of this encounter Progress Notes Valarie Castro RN - 03/06/2020 2:49 PM CDT [facility] upper [...] on filedocumented in this encounter Care Teams Blankbook Stitching Machine Operator Relationship Specialty Start Date End Date Nemesio Costa MD PCP - General 05/30/11 03/22/20 documented as of this encounter
--- OUTSIDE RECORDS SUMMARY | 2022-04-29 07:26 | XMS_ITS | Encounter Summary ---
:1980 Author Organization [place] Address [address] [place] [address] Care Team Providers Name Role Phone Nemesio Costa MD Primary Care Provider Matheus Feliciano MD Primary Care Provider Car Joel MD Unavailable Encounter Details Date Type Department Care Team Description 02/21/2020 Telephone [facility] Surgery Car Joel MD Clinic [place] [address] [place] [place] [address] [address] [place] [address] [phone] Social History Tobacco Use Types Packs/Day Years Used Date Former Smoker Cigarettes Smokeless Tobacco: Never Used Comments: as a child Alcohol Use Standard Drinks/Week Comments No 0 (1 standard drink = 0.6 oz pure alcoho l) Sex Assigned at Date Recorded Female 06/29/2021 12:12 PM 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 documented as of this encounter Plan of Treatment Not on filedocumented as of this encounter Visit Diagnoses Not on filedocumented in this encounter Care Teams Woodworker Relationship Specialty Start Date End Date Nemesio Costa MD PCP - General 05/30/11 03/22/20 Matheus Feliciano MD PCP - General 03/23/[address] [place] [address] Car Joel MD Assigned Surgical Provider 06/01/20 [address] [facility] [address] [place] [address] documented as of this encounter
--- OUTSIDE RECORDS SUMMARY | 2022-04-29 07:26 | XMS_ITS | Encounter Summary ---
:1980 Author Organization [place] Address [address] [place] [address]. [place] [address] Care Team Providers Name Role Phone Nemesio Costa MD Primary Care Provider Reason for Visit Reason Comments Consult hiatal hernia Encounter Details Date Type Department Care Team Description 02/15/2020 Office Visit [facility] Car Joel, Abdomin al pain, Surgery Clinic [place] FLOR[place] epigastric (Primary [address] ) [address] [place] [address] [place] [id number] Social History Tobacco Use Types Packs/Day Years Used Date Former Smoker Cigarettes Smokeless Tobacco: Never Used Comments: as a child Alcohol Use Standard Drinks/Week Comments No 0 (1 standard drink = 0.6 oz pure alcoho l) Sex Assigned at Date Recorded Female 06/29/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
--- OUTSIDE RECORDS SUMMARY | 2022-04-29 07:26 | XMS_ITS | Encounter Summary ---
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 documented as of this encounter Plan of Treatment Not on filedocumented as of this encounter Visit Diagnoses Not on filedocumented in this encounter Care Teams Table Keeper Relationship Specialty Start Date End Date Nemesio Costa MD PCP - General 05/30/11 03/22/20 documented as of this encounter
--- OUTSIDE RECORDS SUMMARY | 2022-04-29 07:26 | XMS_ITS | Encounter Summary ---
:1980 Author Organization [place] Address [address] [place] [address]. [place] [address] Care Team Providers Name Role Phone Nemesio Costa MD Primary Care Provider Reason for Referral (Routine) - Closed Specialty Diagnoses / Procedures Referred By Contact Refer red To Contact Gastroenterology Diagnoses Left upper quadrant pain Bariatric surgery status Montserrat Shepherd [facility] TIA Henley SHE[place] [address] [place] [address] [address] [place] [phone] Phone: Referral ID Status Reason Start Date Expiration Date Visits Requ ested Visits Authorized [id number] Closed 01/03/2020 01/02/2021 1 1 Encounter Details Date Type Department Care Team Description 01/03/2020 Orders Only [facility] Montserrat Shepherd Left up per quadrant pain (Primary Dx); Surgical Weight Loss Maco Henley Bariatric surgery status [facility] [place] [address] [facility] [address] [place] [address] [place] [address] [place] [address] (Work) [phone] Social History Tobacco Use Types Packs/Day Years Used Date Former Smoker Cigarettes Smokeless Tobacco: Never Used Comments: as a child Alcohol Use Standard Drinks/Week Comments No 0 (1 standard drink = 0.6 oz pure alcoho l) Sex Assigned at Date Recorded Female 06/29/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 documented as of this encounter Progress Notes Montserrat Shepherd PA-C - 01/03/2020 4:44 PM CDT ASSESSMENT AND PLAN: 1. Left upper quadrant pain Ordered [facility] consult - GASTROENTEROLOGY ADULT REF CONSULT ONLY; Future Rehana, can you please fax order to [facility] and follow up with pt? Thanks. documented in this encounter Plan of Treatment Scheduled Referrals Name Type Priority Associated Diagnoses Order S chedule GASTROENTEROLOGY ADULT REF Referral Routine Left upper marilou drant Expected: CONSULT ONLY pain 01/10/2020 Bariatric surgery (Approxima te), status Expires: 2020 documented as of this encounter Visit Diagnoses Diagnosis Left upper quadrant pain - Primary Abdominal pain, left upper quadrant Bariatric surgery status documented in this encounter Care Teams Community Association Manager Relationship Specialty Start Date End Date Nemesio Costa MD PCP - General 05/30/11 03/22/20 documented as of this encounter
--- OUTSIDE RECORDS SUMMARY | 2022-04-29 07:26 | XMS_ITS | Encounter Summary ---
:1980 Author Organization [place] Address [address] [place] [address]. [place] [address] Care Team Providers Name Role Phone Nemesio Costa MD Primary Care Provider Encounter Details Date Type Department Care Team Description 12/28/2019 Telephone [facility] Surgical Aydin Shepherd Weight Loss Clinic [place] Hen[place] PA-C [address] [facility] [address] [facility] [address] [place] [address] [place] [address] [phone] Social History Tobacco Use Types Packs/Day Years Used Date Former Smoker Cigarettes Smokeless Tobacco: Never Used Comments: as a child Alcohol Use Standard Drinks/Week Comments No 0 (1 standard drink = 0.6 oz pure alcoho l) Sex Assigned at Date Recorded Female 06/29/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
--- OUTSIDE RECORDS SUMMARY | 2022-04-29 07:26 | XMS_ITS | Encounter Summary ---
:1980 Author Organization [place] Address [address] [place] [address]. [place] [address] Care Team Providers Name Role Phone Nemesio Costa MD Primary Care Provider Reason for Visit Reason Onset Date Comments Outreach 11/30/2019 Encounter Details Date Type Department Care Team Description 11/30/2019 Telephone [facility] Surgical Car Lieberman MD Outreach Weight Loss Clinic [place] [address] [facility] [address] [facility] [place] [address] [address] [place] [address] [phone] Social History Tobacco Use Types Packs/Day Years Used Date Former Smoker Cigarettes Smokeless Tobacco: Never Used Comments: as a child Alcohol Use Standard Drinks/Week Comments No 0 (1 standard drink = 0.6 oz pure alcoho l) Sex Assigned at Date Recorded Female 06/29/2021 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
--- OUTSIDE RECORDS SUMMARY | 2022-04-29 07:26 | XMS_ITS | Encounter Summary ---
:1980 Author Organization [place] Address [address] [place] [address]. [place] [address] Care Team Providers Name Role Phone Nemesio Costa MD Primary Care Provider Reason for Visit Reason Onset Date Comments Clinic Care Coordination - Follow-up 01/17/2020 Encounter Details Date Type Department Care Team Description 01/17/2020 Telephone [facility] Randi Contreras, Clinic C are Coordination Surgical Weight Loss ANTONIA Kimball - Follow-up Clinic [facility] WEIGHT LOSS [address] [facility] [address] [facility] [address] [place] [address] [place] [address] Social History Tobacco Use Types Packs/Day Years Used Date Former Smoker Cigarettes Smokeless Tobacco: Never Used Comments: as a child Alcohol Use Standard Drinks/Week Comments No 0 (1 standard drink = 0.6 oz pure alcoho l) Sex Assigned at Date Recorded Female 06/29/2021 12:12 PM 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 documented as of this encounter Miscellaneous Notes Telephone Encounter - Rehana Anaya RN - 01/17/2020 8:44 AM CDT Noted [facility] dictation received which was stat scanned for provider. UGI results noted yesterday were NL. Called patient and LM - that report was received from [facility] and no issues related to surgery - results yesterday test NL. These are all good things. Follow up with [facility] in 2 months as directed. To call if questions. Rehana Bryan MS, RD, RN documented in this encounter Plan of Treatment Not on filedocumented as of this encounter Visit Diagnoses Not on filedocumented in this encounter Care Teams Custom Feed Mill Operator Relationship Specialty Start Date End Date Nemesio Costa MD PCP - General 05/30/11 03/22/20 documented as of this encounter
--- OUTSIDE RECORDS SUMMARY | 2022-04-29 07:26 | XMS_ITS | Encounter Summary ---
:1980 Author Organization [place] Address [address] [place] [address] Care Team Providers Name Role Phone Nemesio Costa MD Primary Care Provider Matheus Feliciano MD Primary Care Provider Car Joel MD Unavailable Encounter Details Date Type Department Care Team Description 12/28/2019 Communication - [facility] Christel Sheehan, [facility] ANTONIA [address] [address] Social History Tobacco Use Types Packs/Day Years Used Date Former Smoker Cigarettes Smokeless Tobacco: Never Used Comments: as a child Alcohol Use Standard Drinks/Week Comments No 0 (1 standard drink = 0.6 oz pure alcoho l) Sex Assigned at Date Recorded Female 06/29/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 documented in this encounter Plan of Treatment Not on filedocumented as of this encounter Visit Diagnoses Not on filedocumented in this encounter Care Teams Draftsperson Relationship Specialty Start Date End Date Nemesio Costa MD PCP - General 05/30/11 03/22/20 Matheus Feliciano MD PCP - General 03/23/[address] [place] [id number] Car Joel MD Assigned Surgical Provider 06/01/20 [address] [facility] [address] [place] [address] documented as of this encounter
--- OUTSIDE RECORDS SUMMARY | 2022-04-29 07:26 | XMS_ITS | Encounter Summary ---
:1980 Author Organization [place] Address [address] [place] [address]. 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 documented as of this encounter Plan of Treatment Not on filedocumented as of this encounter Visit Diagnoses Not on filedocumented in this encounter Care Teams Script Artist Relationship Specialty Start Date End Date Matheus Feliciano MD PCP - General 03/23/[address] [address] documented as of this encounter
--- OUTSIDE RECORDS SUMMARY | 2022-04-29 07:26 | XMS_ITS | Encounter Summary ---
:1980 Author Organization [place] Address [address] [place] [address]. [place] [address] Care Team Providers Name Role Phone Nemesio Costa MD Primary Care Provider Reason for Visit Reason Onset Date Comments Medication Request 02/15/2020 Encounter Details Date Type Department Care Team Description 02/15/2020 Telephone [facility] Surgery Car Joel MD Medication Request Clinic [place] [address] [place] [address] [place] [address] [phone] Social History Tobacco Use Types Packs/Day Years Used Date Former Smoker Cigarettes Smokeless Tobacco: Never Used Comments: as a child Alcohol Use Standard Drinks/Week Comments No 0 (1 standard drink = 0.6 oz pure alcoho l) Sex Assigned at Date Recorded Female 06/29/2021 12:12 PM NOTARY PUBLIC COVID-19 Exposure Response Date Recorded In the last month, have you been in contact with No / Unsure 02/15/2020 12:26 PM CDT someone who was confirmed or suspected to have Coronavirus / COVID-19? documented as of this encounter Miscellaneous Notes Telephone Encounter - Valarie Castro RN - 02/15/2020 3:46 PM CDT Called pt back ( current consent to communicate in chart). Informed him that rx will be sentbefore close of clinic day. No further needs at this time. Valarie Castro RN on 02/15/2020 at 3:48 PM Telephone Encounter - Sharla Nelson - 02/15/2020 3:38 PM CDT Patient saw Dr. Joel today. He said he was going to restart her on medication: dicyclomine (BENTYL) 10 MG capsule They just went to pharmacy, and they did not receive the prescription for that medication. please send to pharmacy: [id number] - [place], [place] - [address] Patient can be reached at: [phone] documented in this encounter Plan of Treatment Not on filedocumented as of this encounter Visit Diagnoses Not on filedocumented in this encounter Care Teams Financial Institution Vice President Relationship Specialty Start Date End Date Nemesio Costa MD PCP - General 05/30/11 03/22/20 documented as of this encounter
--- OUTSIDE RECORDS SUMMARY | 2022-04-29 07:26 | XMS_ITS | Encounter Summary ---
:1980 Author Organization [place] Address [address] [place] [address]. [place] [address] Care Team Providers Name Role Phone Nemesio Costa MD Primary Care Provider Encounter Details Date Type Department Care Team Description 01/11/2020 Telephone [facility] E olga Henley PA-C [address] [facility] S out [address] 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
--- OUTSIDE RECORDS SUMMARY | 2022-04-29 07:26 | XMS_ITS | Encounter Summary ---
:1980 Author Organization [place] Address [address] [place] [address]. 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 documented as of this encounter Miscellaneous Notes Telephone Encounter - Valarie Castro RN - 12/01/2019 10:44 AM CDT Called pharmacy to clarify. Instructed pharmacist to give pt rx for 40 mg protonix BID x 1 week, then 20 mg BID afterward. VORB given to pharmacy. No further needs. Called patient to update. Left message with Amador pt emergency contact/ that rx has been clarified and can be filled now. Amador states pt will call back with any further needs. Valarie Castro RN on 12/01/2019 at 10:47 AM Telephone Encounter - Trista Joyner MD - 11/30/2019 5:36 PM CDT Gricelda called to discuss protonix dosing. 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 Pthas 20mg protonix at home now. I reviewed the order from Dr. Joel and pt confirms plan to have hertake 40mg protonix BID for one week and then decrease to 20mg BID. I will have her take two tabs of her current protonix tonight and tomorrow morning and have our clinic RN call her pharmacy tomorrow to assist in sorting out the confusion on the pharmacy end of things then. She is comfortable with this plan. Trista Joyner MD [facility] [phone] documented in this encounter Plan of Treatment Not on filedocumented as of this encounter Visit Diagnoses Not on filedocumented in this encounter Care Teams Clinical Support Nurse Relationship Specialty Start Date End Date Nemesio Costa MD PCP - General 05/30/11 03/22/20 documented as of this encounter
--- OUTSIDE RECORDS SUMMARY | 2022-04-29 07:26 | XMS_ITS | Encounter Summary ---
:1980 Author Organization [place] Address [address] [place] [address] Care Team Providers Name Role Phone Matheus Feliciano MD Primary Care Provider Encounter Details Date Type Department Care Team Description 04/08/2020 Orders Only [facility] Urgent Enc ounter for screening Care [facility] for other viral diseases [address] [phone] Social History Tobacco Use Types Packs/Day Years Used Date Former Smoker Cigarettes Smokeless Tobacco: Never Used Comments: as a child Alcohol Use Standard Drinks/Week Comments No 0 (1 standard drink = 0.6 oz pure alcoho l) Sex Assigned at Date Recorded 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 COVID-19 Exposure Response Date Recorded In [...] (Coronavirus) by PCR (04/08/2020 2:01 PM CDT) [facility] Method Time Signature COVID-19 Nasopharyngeal 04/08/2020 [place] Virus PCR to 2:14 PM CDT [facility] COVID-19 Not Detected 04/09/2020 ADVANCED Virus PCR to 10:30 PM [facility] AND U [facility] - CDT DIAGNOSTIC Result LABORATORY, [facility] Comment: Collection of multiple specimens from th [...] was heat inactivated and amplified using the allyvePCR SARS-CoV-2 assay (Wistia.). The HDPCRTM JAGUAR S-CoV-2 assay is a reverse solution architect real-time polymerase chain reaction (qRT-PCR) test intended [...] (Centers for Disease Control) Testing performed by [facility] ([facility]) [address] [facility] [address] [facility] [address] The test performance characteristics wer e determined [...] Address City/State/ZIP Code Phon e Number AD[facility]ED [facility] [place] [place] [address] DIAGNOSTIC LABORATORY, [address] [facility] [address] [facility] [address] [place] [address] [facility] documented in this encounter Visit Diagnoses Diagnosis Encounter for screening for other viral diseases documented in this encounter Care Teams Field Sales Consultant Relationship Specialty Start Date End Date Matheus Feliciano MD PCP - General 03/23/20 [facility] [address] [place] [address] documented as of this encounter
--- OUTSIDE RECORDS SUMMARY | 2022-04-29 07:26 | XMS_ITS | Encounter Summary ---
:1980 Author Organization [place] Address [address] [place] [address]. [place] [address] Care Team Providers Name Role Phone Nemesio Costa MD Primary Care Provider Reason for Visit Reason Onset Date Comments Schedule Surgery 03/22/2020 Encounter Details Date Type Department Care Team Description 03/22/2020 Telephone [facility] Surgery Car Joel MD Schedule Surgery Clinic [place] [address] [place] [address] [place] [address] [phone] Social History Tobacco Use Types Packs/Day Years Used Date Former Smoker Cigarettes Smokeless Tobacco: Never Used Comments: as a child Alcohol Use Standard Drinks/Week Comments No 0 (1 standard drink = 0.6 oz pure alcoho l) Sex Assigned at Date Recorded 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 Car Joel Pre-Op Appt Date: Patient to schedule Post-Op Appt Date: Patient to schedule Packet sent out: Yes Pre-cert/Authorization completed: Not Applicable Date: 03/22/20 documented in this encounter Plan of Treatment Not on filedocumented as of this encounter Visit Diagnoses Not on filedocumented in this encounter Care Teams Lna Relationship Specialty Start Date End Date Nemesio Costa MD PCP - General 05/30/11 03/22/20 documented as of this encounter
--- OUTSIDE RECORDS SUMMARY | 2022-04-29 07:26 | XMS_ITS | Encounter Summary ---
:1980 Author Organization [facility] Address [address] [place], [place] [address]. [place] [address] Care Team Providers Name Role Phone Matheus [...] [address] [place] [address] Phone: Referral ID Status Reason Start Date Expiration Date Visits Requ ested Visits Authorized [id number] 1 1 Encounter Details Date Type Department Care Team Description 04/12/2020 Surgery [facility] Car Joel MD LAPAROSCOPIC HIATAL [place] [facility] [address] HERNIA REPAIR WITH MESH Services [address], [address] [place] [address] [facility] [place] [address] [phone] Surgery Details Date/Time Status Location OR Service [...] at Date Recorded 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 Call [phone] to schedule this. Our clinic's name is [facility]. Our clinic's name [facility]. The address is [address] [place] [address] [address] , [facility] [address], [place], [address] Follow-up and recommended labs and tests Clinic [...] 2 weeks. Josie Medina PA-C [facility] [phone] Associated attestation - Car Joel MD - [...] or school ?? Do Not go to jainism, child and family therapist centers, shopping, or other public places. ?? [...] at home, please visit the CDCwebsite at https://www.cdc.gov/coronavirus/2019-ncov/about/iarzu-ubns-urnf.html For more options for care at [facility], please visit our website at [email or web address] [facility] Discharge Instructions: Post-Operative Laparoscopic [...] prescribed pain medication. If you are taking [place] or Percocet, do not take any additional [...] like to be seen,please call us at [phone] and ask to speak with our nurse. We are located at [address] [place] [address] [place] [address]. CALL OUR OFFICE IF YOU HAVE: ??? Chills or fever above 101.5??F. ??? Increased redness or drainage at your incisions. ??? Significant bleeding. ??? Pain not relieved by your pain medication or rest. ??? Increasing pain after the first 48 hours. ??? Any other concerns or questions. Revised August 2017 If you have questions or concerns about your procedure, call Dr. Joel at [phone] documented in this encounter Medications at Time [...] MG tablet mouth daily fluticasone (FLONASE) 50 [place] 30 mcg in 0 MCG/ACT nasal spray [...] -- 12.3 Josie Medina PA-C [facility] [phone] Associated attestation - Car Joel MD - [...] (Not on file) admission is complete. 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 Plan of Care - Douglas Sidhu [...] Medina PA-C - 04/12/2020 1:59 PM CDT [facility] Brief Operative Note Pre-operative diagnosis: Hiatal hernia [K44.9] Post-operative diagnosis Same Procedure: LAPAROSCOPIC HIATAL HERNIA REPAIR WITH MESH Laparoscopic gastropexy Surgeon: * Car Joel MD - Primary * Josie Medina PA-C - Assisting Anesthesia: General Estimated blood loss: 10cc Findings: As above. No immediate complications. See operative report for full details. Implants: Implant Name Type Inv. Item Serial No. [employer] Officer Lot No. [id number]. Used Action MESH BIO-A TISSUE REINFORCEMENT [id number] Mesh MESH BIO-A TISSUE REINFORCEMENT [id number] [employer] N/A 1 Implanted Josie Medina PA-C [facility] [phone] Provider Notification - Leonarda Tapia RN - 04/12/2020 10:[address] Monaco made aware of K+:3.3 in pre-op. No replacement needed. Op Note - Car Joel MD - 04/12/2020 8:55 AM CDT Surgeon: Car Joel MD. SEASONAL PACKAGE HANDLER: Josie Medina PA-C,The physicians railway yard assistant was medically necessary for their expertise [...] left judy of the diaphragm. A 46 Grenadian bougie was placed through the esophagus, passing [...] LAB - BEAKER POCT Performing Organization Address City/[facility]/ZIP [facility] Phon e Number [facility] POINT OF CARE TEST, GLUCOSE POINT OF CARE TEST, GLUCOSE Platelet count (04/13/2020 7:15 AM CDT) P athologist Signature Platelet Count 249 150 - 450 04/13/2020 [place] 10e9/L 7:[address] [facility] Specimen Anatomical Collection Method Collection Time Receive d Time (Source) Location / / Volume Laterality Blood specimen 04/13/2020 7:15 AM 020 7:16 (specimen) CDT AM CDT Car Joel MD LAB - BLOOD ORDERABLES Performing Organization Address City/[facility]/ZIP [facility] Phon e Number [facility] [address] [address] [facility] [address] [place] [address], [place] [phone] Glucose (04/13/2020 7:15 AM CDT) athologist Signature Glucose 94 70 - 99 04/13/2020 [place] mg/dL 8:04 AM [facility] Specimen Anatomical Collection Method Collection Time Receive d Time (Source) Location / / Volume Laterality Blood specimen 04/13/2020 7:15 AM 020 7:16 (specimen) CDT AM CDT Car Joel MD LAB - BLOOD ORDERABLES Performing Organization Address City/State/ZIP Code Phon e Number M [facility] [address] [address] [place] [address] [place] [address], [place] [phone] (ABNORMAL) Electrolyte panel (04/13/2020 7:15 AM CDT) athologist Signature Sodium 142 133 - 144 04/13/2020 [place] mmol/L 8:02 AM [facility] Potassium 3.9 3.4 - 5.3 04/13/2020 [place] mmol/L 8:02 AM [facility] Chloride 112 (H) 94 - 109 04/13/2020 [place] mmol/L 8:02 AM [facility] Carbon Dioxide 26 20 - 32 04/13/2020 [place] mmol/L 8:04 AM [facility] Anion Gap 4 3 - 14 04/13/2020 [place] mmol/L 8:04 AM [facility] Specimen Anatomical Collection Method Collection Time Receive d Time (Source) Location / / Volume Laterality Blood specimen 04/13/2020 7:15 AM 020 7:16 (specimen) CDT AM CDT Josie Medina PA-C LAB - BLOOD ORDERABLES Performing Organization Address City/State/ZIP Code Phon e Number [facility] [address] [address] [place] [address] [place] [address], [place] [phone] Hemoglobin (04/13/2020 7:15 AM CDT) athologist Signature Hemoglobin 11.9 11.7 - 15.7 04/13/2020 [place] g/dL 7:42 AM [facility] Specimen Anatomical Collection Method Collection Time Receive d Time (Source) Location / / Volume Laterality Blood specimen 04/13/2020 7:15 AM 7:16 (specimen) CDT AM CDT Josie Medina PA-C LAB - BLOOD ORDERABLES Performing Organization Address City/State/ZIP [facility] Phon e Number M [facility] [address] [address] [facility] [address], [place] [address], [place] [phone] Creatinine (04/12/2020 8:02 PM CDT) athologist Signature Creatinine 0.62 0.52 - 1.04 04/12/2020 [place] mg/dL 8:36 PM [facility] GFR Estimate >90 >60 04/12/2020 [place] mL/min/{1.7 8:36 PM [facility] 3_m2} [facility] Comment: Non GFR Calc Starting 07/27/2018, serum creatinine ba sed estimated GFR (eGFR) will be calculated using the Chronic Kidney Dise [facility] Epidemiology Collaboration (CKD-EPI) equation. GFR Estimate If >90 >60 mL/min/{1.73_m2} 04/12/2020 8: 36 PM [facility] Comment: GFR Calc Starting 07/27/2018, serum creatinine ba sed estimated GFR (eGFR) will be calculated using the Chronic Kidney Dise [facility] Epidemiology Collaboration (CKD-EPI) equation. Specimen Anatomical Collection Method Collection Time Receive d Time (Source) Location / / Volume Laterality Blood specimen 04/12/2020 8:02 PM 020 8:03 (specimen) CDT PM CDT Josie Medina PA-C LAB - BLOOD ORDERABLES Performing Organization Address City/State/ZIP Code Phon e Number [facility] [address] [address] [facility] [address] [address], [place] [phone] (ABNORMAL) Potassium (04/12/2020 9:30 AM CDT) athologist Signature Potassium 3.3 (L) 3.4 - 5.3 04/12/2020 [place] mmol/L 9:[address] [facility] Specimen Anatomical Collection Method Collection Time Receive d Time (Source) Location / / Volume Laterality Blood specimen 04/12/2020 9:30 AM 020 9:39 (specimen) CDT AM CDT Car Joel MD LAB - BLOOD ORDERABLES Performing Organization Address City/State/ZIP Code Phon e Number [place] [facility] [address] [phone] [place] [address] [place] [address], [place] [phone] BLADDER SCAN RESULT - HIM SCAN (04/12/2020 [...] when administering multiple Cent ral Nervous System (TECHNICAL STENOGRAPHER) depressing meds within a short time frame., Post-procedure diphenhydrAMINE (BENADRYL) injection 25 mg 25 mg, Intravenous, EVERY 6 HOURS PRN, i tching, Only give if patient unable to take PO., Starting on Palmira 04/12/20 at 1725, Cau tion to be used when administering multiple Central Nervous System (TECHNICAL STENOGRAPHER) depressing meds within a short time frame. [...] falls below 50% of baseline or less vooj478,000/??L and notify provider., Post-procedure Given 04/13/2020 10:42 [...] opioid. ~ Hold dose while on IV SPORTS MANAGEMENT INTERNSHIP. ~ Hold dose for analgesic side effects. [...] on patient (no barcode scan needed). See [facility] h order for dose information., Post-procedure [...] falls below 50% of baseline or less tebn681,000/??L and notify provider., Post-procedure escitalopram (LEXAPRO) tablet [...] 1 patch, Transdermal, EVERY 72 HOURS, Ad zoning assistant over 72 Hours, First dose on Thu04/12/20 [...] used when administering multiple Central Nervous System (TECHNICAL STENOGRAPHER) depressing meds within a short time frame., Post-procedure diphenhydrAMINE (BENADRYL) injection 25 mg(Linked Group 2) 25 mg, Intravenous, EVERY 6 HOURS PRN, i tching, Only give if patient unable to take PO., Starting Palmira 04/12/20 at 1725, Caution to be used when administering multiple Central Nervous System (TECHNICAL STENOGRAPHER) depressi ng meds within a short time [...] IF patient cannot take oral opioid., Starting [facility] 04/12/20 at 1725, ~ Administer for pain not control led by oral opioid. ~ Hold dose while on IV SPORTS MANAGEMENT INTERNSHIP. ~ Hold dose for analgesic side effects. [...] D insertion or accessing implanted port., Starting [facility] 04/12/20 at 1725, Do NOT give [...] PRN, mild pain with VAD insertion., Starting [facility] 04/12/20 at 1725, Do NOT give [...] 1 patch, Transdermal, EVERY 72 HOURS, Ad zoning assistant over 72 Hours, First dose on Palmira [...] used when administering multiple Central Nervous System (TECHNICAL STENOGRAPHER) depressing meds within a short time frame.
Post-procedure Or diphenhydrAMINE (BENADRYL) injection 25 mgJump to med 25 mg, Intravenous, EVERY 6 HOURS PRN, i tching, Only give if patient unable to take PO., Starting [place]ira 04/12/20 at 1725
Caution to be used when administering multiple Central Nervous System (TECHNICAL STENOGRAPHER) depressing meds within a short time fram [...]
Post-procedure documented in this encounter Care Teams Industrial Maintenance Tech Relationship Specialty Start Date End Date Matheus Feliciano MD PCP - General 03/23/[address] [address] documented as of this encounter
--- OUTSIDE RECORDS SUMMARY | 2022-04-29 07:26 | XMS_ITS | Encounter Summary ---
:1980 Author Organization [place] Address [address] [place] [address]. 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 documented as of this encounter Plan of Treatment Not on filedocumented as of this encounter Visit Diagnoses Not on filedocumented in this encounter Care Teams Telegraph Editor Relationship Specialty Start Date End Date Nemesio Costa MD PCP - General 05/30/11 03/22/20 documented as of this encounter
--- OUTSIDE RECORDS SUMMARY | 2022-04-29 07:26 | XMS_ITS | Encounter Summary ---
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 documented as of this encounter Plan of Treatment Not on filedocumented as of this encounter Visit Diagnoses Not on filedocumented in this encounter Care Teams Warp Doffer Relationship Specialty Start Date End Date Nemesio Costa MD PCP - General 05/30/11 03/22/20 documented as of this encounter
--- OUTSIDE RECORDS SUMMARY | 2022-04-29 07:27 | XMS_ITS | Encounter Summary ---
:1980 Author Organization [facility] Address [address] [place] [address]. [place] [address] Care Team Providers Name Role Phone Nemesio Costa MD Primary Care Provider Matheus Feliciano MD Primary Care Provider Car Jole MD Unavailable Reason for Visit Reason Comments Medication Refill Encounter Details Date Type Department Care Team Description 08/29/2017 Refill [facility] Surgical Juan A Valdovinos, Medication Refill Weight Loss Clinic E olgajerome WEBER [address] [facility] [address] [facility] [address] [place] [phone] [place] GONZALEZ [phone] (Wo rk) Social History Tobacco Use Types Packs/Day Years Used Date Former Smoker Cigarettes Smokeless Tobacco: Never Used Comments: as a child Alcohol Use Standard Drinks/Week Comments No 0 (1 standard drink = 0.6 oz pure alcoho l) Sex Assigned at Date Recorded 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 of 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 encounter Miscellaneous Notes Telephone Encounter - Lon Rodriguez PA-C - 09/02/2017 12:16 PM RUBBER TURNER Needs appointment ER TURNER documented in this encounter Plan of Treatment Not on filedocumented as of this encounter Visit Diagnoses Diagnosis Bariatric surgery status documented in this encounter Care Teams Artist'S Representative Relationship Specialty Start Date End Date Nemesio Costa MD PCP - General 05/30/11 03/22/20 Matheus Feliciano MD PCP - General 03/23/[address] [place] [address] Car Joel MD Assigned Surgical Provider 06/01/20 [address] [place] [id number] documented as of this encounter
--- OUTSIDE RECORDS SUMMARY | 2022-04-29 07:27 | XMS_ITS | Encounter Summary ---
:1980 Author Organization [facility] Address [address] [place] [address]. [place] [address] Care Team Providers Name Role Phone Nemesio Costa MD Primary Care Provider Matheus Feliciano MD Primary Care Provider Car Joel MD Unavailable Encounter Details Date Type Department Care Team Description 10/01/2012 Abstract [facility] Weight Montserrat Shepherd, Management Clinic Ed tapan PA-C [address] [facility] [address] [place] [address] [place] [phone] Social History Tobacco Use Types Packs/Day Years Used Date Former Smoker Cigarettes Smokeless Tobacco: Never Used Comments: as a child Alcohol Use Standard Drinks/Week Comments Not Asked 0 (1 standard drink = 0.6 oz pure alcoho l) Sex Assigned at Date Recorded 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
--- OUTSIDE RECORDS SUMMARY | 2022-04-29 07:27 | XMS_ITS | Encounter Summary ---
:1980 Author Organization [place] Address [address] [place] [address]. [place] [address] Care Team Providers Name Role Phone Nemesio Costa MD Primary Care Provider Matheus Feliciano MD Primary Care Provider Car Joel MD Unavailable Reason for Visit Reason Comments Medication Refill Encounter Details Date Type Department Care Team Description 07/13/2013 Refill [facility] Weight Montserrat Shepherd Medication Refill Management Clinic Ed tapan Henley PA-C [address] [place] [address] [place] [phone] Social History Tobacco Use Types Packs/Day Years Used Date Former Smoker Cigarettes Smokeless Tobacco: Never Used Comments: as a child Alcohol Use Standard Drinks/Week Comments No 0 (1 standard drink = 0.6 oz pure alcoho l) Sex Assigned at Date Recorded 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
--- OUTSIDE RECORDS SUMMARY | 2022-04-29 07:27 | XMS_ITS | Encounter Summary ---
:1980 Author Organization [place] Address [address] [place] [address] Care Team Providers Name Role Phone Nemesio Costa MD Primary Care Provider Reason for Referral Diagnostic Imaging CT Scan (Routine) - Closed Specialty Diagnoses / Procedures Referred By Contact Refer red To Contact Radiology. Diagnoses Bariatric surgery status Left upper quadrant pain Sh Surgical Wght Loss Sh Ct Scan Procedures CT Abdomen Pelvis w Contrast [address] [facility] [address] [place] [address] [place] [address] Referral ID Status Reason Start Date Expiration Date Visits Requ ested Visits Authorized [id number] Closed 11/29/2019 11/28/2020 1 1 Reason for Visit Diagnostic Imaging CT Scan (Routine) - Closed Specialty Diagnoses / Procedures Referred By Contact Refer red To Contact Radiology. Diagnoses Bariatric surgery status Left upper quadrant pain Sh Surgical Wght Loss Sh Ct Scan Procedures CT Abdomen Pelvis w Contrast [address] [place] [phone] [place] [phone] Referral ID Status Reason Start Date Expiration Date Visits Requ ested Visits Authorized [id number] Closed 11/29/2019 11/28/2020 1 1 Encounter Details Date Type Department Care Team Description 11/29/2019 Hospital Encounter [facility] Wisam Jamel Rahman ariatric surgery status; Jimmy Paul MD Left upper quadrant pain 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 documented in this encounter Care Teams Legal Job Titles Relationship Specialty Start Date End Date Nemesio Costa MD PCP - General 05/30/11 03/22/20 documented as of this encounter
--- OUTSIDE RECORDS SUMMARY | 2022-04-29 07:27 | XMS_ITS | Encounter Summary ---
:1980 Author Organization [facility] Address [address] [place] [address]. [place] [address] Care Team Providers Name Role Phone Nemesio Costa MD Primary Care Provider Encounter Details Date Type Department Care Team Description 07/12/2013 Office Visit [facility] Weight Car Joel MD [address] [place] [id number] Management Clinic Ed tapan 1, [address] [place] [address] Social History Tobacco Use Types Packs/Day Years Used Date Former Smoker Cigarettes Smokeless Tobacco: Never Used Comments: as a child Alcohol Use Standard Drinks/Week Comments No 0 (1 standard drink = 0.6 oz pure alcoho l) Sex Assigned at Date Recorded Female 06/29/2021 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 DIAGNOSIS: Status post Gastric Bypass (Cora-en-Y) surgery. Class I Obesity ANTHROPOMETRICS: Height: 64 inches Weight: 181 lbs BMI: 31.06 kg/m2 VITAMINS AND MINERALS: 2 multivitamin mineral, bed time 500 mg calcium with vitamin D, 3 times per day with meals Vitamin B-12, monthly injections 2000 IU vitamin D NUTRITION HISTORY: Breakfast: Skipping 4 times per week or 1 packet oatmeal, toast with peanut butter, a piece of fruit(8:00) Lunch: toasted turkey sandwich (12:00) Supper: pot roast with veggies (5:30) Snacks: wheat thins (1 or 2 times per day) Beverages:decaff. Tea Consuming liquid calories: milk Protein intake: 50-60 grams/day Tolerate regular texture food: yes Any foods not tolerated details: No Portion size: 1 cup or more Take 30 minutes to consume each meal: Yes Eat protein foods first: Yes Fluids and meals separate by at least 30 minutes: No Chew foods 20 plus times: Yes Tolerating diet: bariatric regular diet Drinking high protein supplements/shakes: No Consuming meals per day: 2 Consuming snacks per day: 2 ACTIVITY: Fell 2 or more times last year? No Fell 2 or more times last year and injured? No Patient is at risk for falling? No PHYSICAL ACTIVITY: Exercise: Yes Type of Exercise: gym. Frequency (days a week): 3-4 times a week Duration (min): 60 DIAGNOSIS: Previous Nutrition Diagnosis: Altered gastrointestinal function related to alteration in gastrointestinal structure as evidenced by history of Gastric Bypass (Cora-en-Y) surgery. Previous goals: Drink milk of no sugar added carnation instant breakfast in the afternoon (not met) Decrease evening meal to 1 cup of food (met) Eat 3 food groups per meal (not met) Current Nutrition Diagnosis: Altered gastrointestinal function related to alteration in gastrointestinal structure as evidenced by history of Gastric Bypass (Cora-en-Y) surgery. Unchanged IMPLEMENTATION: Nutrition Prescription: Eat 3 meals a day at regular intervals. Consume 60-90 grams of protein daily. Follow post-surgical vitamin and mineral protocol. Goals: Eat breakfast daily, ideas provided Include low fat/ lean protein at each meal, ideas provided Increase protein to at least 60 g per day Focus on eating 1 cup of food per meal Implementation: Discussed progress toward previous goals; reinforced importance of following bariatric lifestyle changes. NUTRITION MONITORING AND EVALUATION: Anticipated compliance: Good Verbalized understanding by listing the behavior changes she wants to work on Follow up: Continue to monitor pt closely regarding wt loss and diet. Patient to follow up in 12 months TIME SPENT WITH PATIENT: 22 minutes ETRICS HEAD documented in this encounter Plan of Treatment Not on filedocumented as of this encounter Visit Diagnoses Not on filedocumented in this encounter Care Teams Printmaker Relationship Specialty Start Date End Date Nemesio Costa MD PCP - General 05/30/11 03/22/20 documented as of this encounter
--- OUTSIDE RECORDS SUMMARY | 2022-04-29 07:27 | XMS_ITS | Encounter Summary ---
:1980 Author Organization [place] Address [facility] [place] [address] Care Team Providers Name Role Phone Nemesio Costa MD Primary Care Provider Reason for Visit Reason Comments Medication Refill Encounter Details Date Type Department Care Team Description 06/27/2013 Refill [facility] Weight Montserrat Shepherd Medication Refill Management Clinic Ed tapan TIA Henley [address] [place] [address] [place] [phone] Social History Tobacco Use Types Packs/Day Years Used Date Former Smoker Cigarettes Smokeless Tobacco: Never Used Comments: as a child Alcohol Use Standard Drinks/Week Comments No 0 (1 standard drink = 0.6 oz pure alcoho l) Sex Assigned at Date Recorded Female 06/29/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
--- OUTSIDE RECORDS SUMMARY | 2022-04-29 07:27 | XMS_ITS | Encounter Summary ---
:1980 Author Organization [facility] Address [address] [place] [address]. [place] [address] Care Team Providers Name Role Phone Nemesio Costa MD Primary Care Provider Matheus Feliciano MD Primary Care Provider Car Joel MD Unavailable Reason for Visit Reason Comments Medication Refill Encounter Details Date Type Department Care Team Description 06/07/2013 Refill [facility] Weight Montserrat Shepherd Medication Refill Management Clinic Ed tapan TIA Henley [address] [place] [address] [place] [phone] Social History Tobacco Use Types Packs/Day Years Used Date Former Smoker Cigarettes Smokeless Tobacco: Never Used Comments: as a child Alcohol Use Standard Drinks/Week Comments No 0 (1 standard drink = 0.6 oz pure alcoho l) Sex Assigned at Date Recorded Female 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
--- OUTSIDE RECORDS SUMMARY | 2022-04-29 07:27 | XMS_ITS | Encounter Summary ---
:1980 Author Organization [facility] Address [address] [place] [address]. [place] [id number] Care Team Providers Name Role Phone Nemesio Costa MD Primary Care Provider Reason for Visit Reason Onset Date Comments Abstract 08/19/2017 Encounter Details Date Type Department Care Team Description 08/19/2017 Documentation Only [facility] Montserrat Shepherd bstract Surgical Weight Loss Maco Henley A-C [address] [place] [address] [facility] [address] [place] [address] [phone] Social History Tobacco Use Types Packs/Day Years Used Date Former Smoker Cigarettes Smokeless Tobacco: Never Used Comments: as a child Alcohol Use Standard Drinks/Week Comments No 0 (1 standard drink = 0.6 oz pure alcoho l) Sex Assigned at Date Recorded Female 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
--- OUTSIDE RECORDS SUMMARY | 2022-04-29 07:27 | XMS_ITS | Encounter Summary ---
:1980 Author Organization [facility] Address [address] [place] [address]. [place] [address] Care Team Providers Name Role Phone Nemesio Costa MD Primary Care Provider Matheus Feliciano MD Primary Care Provider Car Joel MD Unavailable Reason for Visit Reason Comments Refill Request Encounter Details Date Type Department Care Team Description 05/16/[address] 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
--- OUTSIDE RECORDS SUMMARY | 2022-04-29 07:27 | XMS_ITS | Encounter Summary ---
:1980 Author Organization [place] [facility] Address [address] [place] [address]. [place] [address] Care Team Providers Name Role Phone Nemesio Costa MD Primary Care Provider Matheus Feliciano MD Primary Care Provider Car Joel MD Unavailable Reason for Visit Reason Comments Medication Refill Encounter Details Date Type Department Care Team Description 07/29/2017 Refill [facility] Surgical Juan A Valdovinos, Medication Refill Weight Loss Clinic E olga PA-C [address] [facility] [address] [facility] S [facility] [address] [place] [phone] [place] G[place]Z [phone] (Wo rk) Social History Tobacco Use Types Packs/Day Years Used Date Former Smoker Cigarettes Smokeless Tobacco: Never Used Comments: as a child Alcohol Use Standard Drinks/Week Comments No 0 (1 standard drink = 0.6 oz pure alcoho l) Sex Assigned at Date Recorded Female 06/29/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
--- OUTSIDE RECORDS SUMMARY | 2022-04-29 07:27 | XMS_ITS | Encounter Summary ---
:1980 Author Organization [place] Address [address] [place] [address]. [place] [address] Care Team Providers Name Role Phone Nemesio Costa MD Primary Care Provider Matheus Feliciano MD Primary Care Provider Car Joel MD Unavailable Reason for Visit Reason Comments Medication Refill Encounter Details Date Type Department Care Team Description 03/26/2017 Refill [facility] Surgical Juan A Valdovinos, Medication Refill Weight Loss Clinic E olga PA-C [address] [facility] [address] [facility] [address] [place] [phone] [place] [phone] (Wo rk) Social History Tobacco Use Types Packs/Day Years Used Date Former Smoker Cigarettes Smokeless Tobacco: Never Used Comments: as a child Alcohol Use Standard Drinks/Week Comments No 0 (1 standard drink = 0.6 oz pure alcoho l) Sex Assigned at Date Recorded Female 06/29/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
--- OUTSIDE RECORDS SUMMARY | 2022-04-29 07:27 | XMS_ITS | Encounter Summary ---
:1980 Author Organization [facility] Address [address] [place] [address]. [place] [address] Care Team Providers Name Role Phone Nemesio Costa MD Primary Care Provider Matheus Feliciano MD Primary Care Provider Car Joel MD Unavailable Reason for Visit Reason Comments Medication Refill Encounter Details Date Type Department Care Team Description 06/13/2015 Refill [facility] Surgical Juan A Valdovinos, Medication Refill Weight Loss Clinic E olga PA-C [address] [facility] [address] [facility] [address] [facility] [address] [place] [phone] [place] G[place] [phone] (Wo rk) Social History Tobacco Use Types Packs/Day Years Used Date Former Smoker Cigarettes Smokeless Tobacco: Never Used Comments: as a child Alcohol Use Standard Drinks/Week Comments No 0 (1 standard drink = 0.6 oz pure alcoho l) Sex Assigned at Date Recorded Female 06/29/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
--- OUTSIDE RECORDS SUMMARY | 2022-04-29 07:27 | XMS_ITS | Encounter Summary ---
:1980 Author Organization [place] Address [facility] [place] [address] Care Team Providers Name Role Phone Nemesio Costa MD Primary Care Provider Reason for Visit Reason Onset Date Comments Nurse Advice Line 11/15/2019 Encounter Details Date Type Department Care Team Description 11/15/2019 Telephone [facility] Weight Car Joel MD Nurse Advice Line Management [facility] [place] [address] [place] [address] [place] [phone] Social History Tobacco Use Types Packs/Day Years Used Date Former Smoker Cigarettes Smokeless Tobacco: Never Used Comments: as a child Alcohol Use Standard Drinks/Week Comments No 0 (1 standard drink = 0.6 oz pure alcoho l) Sex Assigned at Date Recorded Female 06/29/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 Pt's /emergency contact answered. Left message for pt with him with appointment time for tomorrow. Verified that this number [phone] is the correct number to reach patient. [...] on . Needs to be called at [phone]. Also states she is not currently taking protonix or pepcid. Pharmacy: [facility] RN to call pt back tomorrow to give her time of appointment on . Valarie Castro RN on 11/15/2019 at 3:44 PM Telephone Encounter - Montserrat Shepherd PA-C - 11/15/2019 2:46 PM CDT Reviewed Records: ER visit 09/21/2019 [facility]: Dyspepsia (Primary Dx); CT abdomen/pelvis was obtained [...] status documented in this encounter Care Teams Health Consultant Relationship Specialty Start Date End Date Nemesio Costa MD PCP - General 05/30/11 03/22/20 documented as of this encounter
--- OUTSIDE RECORDS SUMMARY | 2022-04-29 07:27 | XMS_ITS | Encounter Summary ---
:1980 Author Organization [place] Address [address] [place] [address]. [place] [address] Care Team Providers Name Role Phone Nemesio Costa MD Primary Care Provider Reason for Visit Reason Comments Medication Refill Encounter Details Date Type Department Care Team Description 08/23/2014 Refill [facility] Surgical Aydin Shepherd Medication Refill Weight Loss Clinic E olga Henley PA-C [address] [facility] [address] [facility] [address] [place] [address] [place] [phone] Social History Tobacco Use Types Packs/Day Years Used Date Former Smoker Cigarettes Smokeless Tobacco: Never Used Comments: as a child Alcohol Use Standard Drinks/Week Comments No 0 (1 standard drink = 0.6 oz pure alcoho l) Sex Assigned at Date Recorded Female 06/29/2021 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 She is aware of the need to be seen before her prescriptions are written. She was informed that her PCP could do this for her as well if she was seen on an annual basis. Patient verbalized understanding. Rehana Bryan, MS, RD, RN E MINIMIZATION TECHNICIAN Telephone Encounter - Nidhi Brewer CMA - [...] not already done. Thanks! Nidhi Brewer MA E MINIMIZATION TECHNICIAN Telephone Encounter - Montserrat Shepherd PA-C - 08/24/2014 10:13 AM WASTE MINIMIZATION TECHNICIAN Nidhi, Please call the patient and explain: [...] year, the could do this for her. E MINIMIZATION TECHNICIAN Telephone Encounter - Rehana Anaya RN - 08/23/2014 1:05 PM WASTE MINIMIZATION TECHNICIAN Patient wondering why her vitamin D had not been refilled. Informed her that she had not returned to clinic in over a year and the she was already given 1 refill past her date when she should return to clinic. Requested she make an appointment to see a provider. She refused saying she lived near [place] and that was [place] way away. She requested TIA Mariano call her to discuss above. I informed patient I would give Montserrat the message. Rehana Bryan, MS, RD, RN E MINIMIZATION TECHNICIAN documented in this encounter Plan of Treatment Not on filedocumented as of this encounter Visit Diagnoses Not on filedocumented in this encounter Care Teams Supervisor Paint Roller Covers Relationship Specialty Start Date End Date Nemesio Costa MD PCP - General 05/30/11 03/22/20 documented as of this encounter
--- OUTSIDE RECORDS SUMMARY | 2022-04-29 07:27 | XMS_ITS | Encounter Summary ---
:1980 Author Organization [place] Address [address] [place] [address] Care Team Providers Name Role Phone Nemesio Costa MD Primary Care Provider Reason for Referral - Closed Specialty Diagnoses / Procedures Referred By Contact Refer red To Contact Diagnoses Strain of thoracic spine Scapular dyskinesis Wang Dumas MD [address] [place], [place] [address] Referral ID Status Reason Start Date Expiration Date Visits Requ ested Visits Authorized [id number] Closed 01/01/2012 06/29/2012 1 1 Reason for Visit Reason Comments Back Pain NEW, mid-back, 3 years ago, possibly due to chiro adjustment Encounter Details Date Type Department Care Team Description 01/01/2012 Office Visit [facility] & Wang Dumas Strain o f thoracic spine; Orthopedic MD Kemar Scapular dyskinesis [facility] [facility] [address] [place], [place] [address] [address], [facility] [address] [place], [place] (Work) [phone] Social History Tobacco Use Types Packs/Day Years Used Date Former Smoker Cigarettes Smokeless Tobacco: Never Used Comments: as a child Alcohol Use Standard Drinks/Week Comments Not Asked 0 (1 standard drink = 0.6 oz pure alcoho l) Sex Assigned at Date Recorded Female 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 Wang Dumas MD, [facility] documented in [...] coordination documented in this encounter Care Teams Toolsmith Relationship Specialty Start Date End Date Nemesio Costa MD PCP - General 05/30/11 03/22/20 documented as of this encounter
--- OUTSIDE RECORDS SUMMARY | 2022-04-29 07:27 | XMS_ITS | Encounter Summary ---
:1980 Author Organization [place] Address [address] [place] [address]. [place] [address] Care Team Providers Name Role Phone Nemesio Costa MD Primary Care Provider Matheus Feliciano MD Primary Care Provider Car Joel MD Unavailable Reason for Visit Reason Comments Medication Refill Encounter Details Date Type Department Care Team Description 10/22/2014 Refill [facility] Surgical CoraAydin Medication Refill Weight Loss Clinic E olga Henley PA-C [address] [facility] [address] [facility] [address] [place] [address] [place] [phone] Social History Tobacco Use Types Packs/Day Years Used Date Former Smoker Cigarettes Smokeless Tobacco: Never Used Comments: as a child Alcohol Use Standard Drinks/Week Comments No 0 (1 standard drink = 0.6 oz pure alcoho l) Sex Assigned at Date Recorded Female 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
--- OUTSIDE RECORDS SUMMARY | 2022-04-29 07:27 | XMS_ITS | Encounter Summary ---
:1980 Author Organization [place] Address [address] [place] [address]. [place] [address] Care Team Providers Name Role Phone Nemesio Costa MD Primary Care Provider Matheus Feliciano MD Primary Care Provider Car Joel MD Unavailable Reason for Visit Reason Comments Medication Refill Encounter Details Date Type Department Care Team Description 07/04/2014 Refill [facility] Surgical Aydin Shepherd Medication Refill Weight Loss Clinic E olga Henley PA-C [address] [facility] out [address] [facility] [address] [place] [address] [place] [phone] Social History Tobacco Use Types Packs/Day Years Used Date Former Smoker Cigarettes Smokeless Tobacco: Never Used Comments: as a child Alcohol Use Standard Drinks/Week Comments No 0 (1 standard drink = 0.6 oz pure alcoho l) Sex Assigned at Date Recorded 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 Plan of Treatment Not on filedocumented as of this encounter Visit Diagnoses Diagnosis Other and unspecified postsurgical nonab sorption - Primary Bariatric surgery status documented in this encounter Care Teams Digital Imager Relationship Specialty Start Date End Date Nemesio Costa MD PCP - General 05/30/11 03/22/20 Matheus Feliciano MD PCP - General 03/23/20 [facility] [address] [facility] [place] [phone] Car Joel MD Assigned Surgical Provider 06/01/20 [address] [facility] [address] [place] [address] documented as of this encounter
--- OUTSIDE RECORDS SUMMARY | 2022-04-29 07:27 | XMS_ITS | Encounter Summary ---
:1980 Author Organization [place] Address [address] [place] [address]. [place] [address] Care Team Providers Name Role Phone Nemesio Costa MD Primary Care Provider Reason for Visit Reason Onset Date Comments Abdominal Pain 11/24/2019 Encounter Details Date Type Department Care Team Description 11/24/2019 Telephone [facility] Surgical Rehana Anaya, Abdominal Pain Weight Loss Clinic E olga RN [address] [facility] [address] [facility] [address] [place] [address] [place], [place] [address] Social History Tobacco Use Types Packs/Day Years Used Date Former Smoker Cigarettes Smokeless Tobacco: Never Used Comments: as a child Alcohol Use Standard Drinks/Week Comments No 0 (1 standard drink = 0.6 oz pure alcoho l) Sex Assigned at Date Recorded 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
--- OUTSIDE RECORDS SUMMARY | 2022-04-29 07:27 | XMS_ITS | Encounter Summary ---
:1980 Author Organization [place] Address [address] [place] [address]. [place] [address] Care Team Providers Name Role Phone Nemesio Costa MD Primary Care Provider Encounter Details Date Type Department Care Team Description 05/03/2012 Office Visit [facility] Weight Cora, Montserrat Henley PA-C [address] [place] [address] Management Clinic Ed [place] 2, [address] Diet, RD [address] [place] [address] Social History Tobacco Use Types Packs/Day Years Used Date Former Smoker Cigarettes Smokeless Tobacco: Never Used Comments: as a child Alcohol Use Standard Drinks/Week Comments Not Asked 0 (1 standard drink = 0.6 oz pure alcoho l) Sex Assigned at Date Recorded 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 Goals: Drink milk or [place] Instant Breakfast in the afternoon; decrease evening [...] filedocumented in this encounter Care Teams Manager Database Relationship Specialty Start Date End Date Nemesio Costa MD PCP - General 05/30/11 03/22/20 documented as of this encounter
--- OUTSIDE RECORDS SUMMARY | 2022-04-29 07:27 | XMS_ITS | Encounter Summary ---
:1980 Author Organization [place] Address [address] [place] [address]. [place] [address] Care Team Providers Name Role Phone Nemesio Costa MD Primary Care Provider Encounter Details Date Type Department Care Team Description 07/28/2013 Hospital Encounter [facility] Car Joel B ariatric surgery status; Isra Merritt MD Overweight and obesity(278.0) [address] [facility] [address] [facility] [address] [phone] [place] [address] [phone] Social History Tobacco Use Types Packs/Day Years Used Date Former Smoker Cigarettes Smokeless Tobacco: Never Used Comments: as a child Alcohol Use Standard Drinks/Week Comments No 0 (1 standard drink = 0.6 oz pure alcoho l) Sex Assigned at Date Recorded 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 CBC WITH PLATELETS & Routine 07/28/2013 4:00 PM Bariatric surg aleks Results for this DIFFERENTIAL TREE TRIMMING SUPERVISOR status procedure are in Overweight and the results obesity(278.0) section. PARATHYROID HORMONE Routine 07/28/2013 4:00 PM Bariatric surge ry Results for this INTACT TREE TRIMMING SUPERVISOR status procedure are in Overweight and the results obesity(278.0) section. IRON AND IRON BINDING Routine 07/28/2013 4:00 PM Bariatric jose jan Results for this CAPACITY TREE TRIMMING SUPERVISOR status procedure are in Overweight and the results obesity(278.0) section. FOLATE Routine 07/28/2013 4:00 PM Bariatric surgery Resu lts for this TREE TRIMMING SUPERVISOR status procedure are in Overweight and the results obesity(278.0) section. FERRITIN Routine 07/28/2013 4:00 PM Bariatric surgery Resu lts for this TREE TRIMMING SUPERVISOR status procedure are in Overweight and the results obesity(278.0) section. VITAMIN B12 Routine 07/28/2013 4:00 PM Bariatric surgery Resu lts for this TREE TRIMMING SUPERVISOR status procedure are in Overweight and the results obesity(278.0) section. documented in this encounter Results Vitamin D - FOLLOW-UP (07/28/2013 4:00 PM TREE TRIMMING SUPERVISOR) Component Value Ref Test Analysis Performed At [facility] Range Method Time Signature 25 [place] Vit D2 <5 ug/L [facility] 25 OH Vit D3 42 ug/L [facility] 25 OH Vit D <47 30 - 75 [facility] total Season, race, dietary intake, and treatm ent affect the concentration of ug/L [facility] 17-zkyjwls-Ewlvfml D. Values may decrease during pawel er months and increase [facility]AMP[facility] during summer months. Values less than 30 ug/L may indicate Vitamin D deficiency. Specimen Anatomical Collection Method Collection Time Receive d Time (Source) Location / / Volume Laterality Blood specimen 07/28/2013 4:00 PM 013 4:01 (specimen) TREE TRIMMING SUPERVISOR PM TREE TRIMMING SUPERVISOR Car Joel MD LAB - BLOOD ORDERABLES Performing Organization Address City/[facility]/ZIP Code Phon e Number [address] LABS Folate (07/28/2013 4:00 PM TREE TRIMMING SUPERVISOR) P athologist Signature Folate 11.3 3.00 - [facility] 17.00 ng/mL CAMPUS LABS Specimen Anatomical Collection Method Collection Time Receive d Time (Source) Location / / Volume Laterality Blood specimen 07/28/2013 4:00 PM 013 4:01 (specimen) TREE TRIMMING SUPERVISOR PM TREE TRIMMING SUPERVISOR Car Joel MD LAB - BLOOD ORDERABLES Performing Organization Address City/State/ZIP Code Phon e Number [id number] [place] [address] LABS CBC with platelets differential (07/28/2013 4:00 PM TREE TRIMMING SUPERVISOR) Patholo gist Method Time Signature WBC 9.3 4.0 - [facility] 11.0 [facility] 10e9/L [facility] RBC Count 4.53 3.8 - 5.2 [facility] 10e12/L [facility] Hemoglobin 14.3 11.7 - [facility] 15.7 g/dL [facility] Hematocrit 42.1 35.0 - [facility] 47.0 % [facility] MCV 93 78 - 100 [facility] LAB MCH 31.6 26.5 - [facility] 33.0 pg [facility] MCHC 34.0 31.5 - [facility] 36.5 g/dL [facility] RDW 12.4 10.0 - [facility] 15.0 % [facility] Platelet Count 285 150 - 450 [facility] 10e9/L [facility] Diff Method Automated [facility] Method [facility] % Neutrophils 62.2 % [facility] % Lymphocytes 30.1 % [facility] % Monocytes 6.5 % [facility] % Eosinophils 0.6 % [facility] % Basophils 0.4 % [facility] % Immature 0.2 % [facility] Granulocytes [facility] Absolute 5.8 1.6 - 8.3 [facility] Neutrophil 10e9/L [facility] Absolute 2.8 0.8 - 5.3 [facility] Lymphocytes 10e9/L [facility] Absolute 0.6 0.0 - 1.3 [facility] Monocytes 10e9/L [facility] Absolute 0.1 0.0 - 0.7 [facility] Eosinophils 10e9/L [facility] Absolute 0.0 0.0 - 0.2 [facility] Basophils 10e9/L [facility] Abs Immature 0.0 0 - 0.4 [facility] Granulocytes [address] [place] [address] LAB Specimen Anatomical Collection Method Collection Time Receive d Time (Source) Location / / Volume Laterality Blood specimen 07/28/2013 4:00 PM 013 4:01 (specimen) TREE TRIMMING SUPERVISOR PM TREE TRIMMING SUPERVISOR Car Joel MD LAB - BLOOD ORDERABLES Performing Organization Address City/[facility] Phon e Number [facility] [address] [address] [facility] FERRITIN (07/28/2013 4:00 PM TREE TRIMMING SUPERVISOR) athologist Signature Ferritin 20 10 - 120 [facility] ng/mL [facility] Specimen Anatomical Collection Method Collection Time Receive d Time (Source) Location / / Volume Laterality Blood specimen 07/28/2013 4:00 PM 013 4:01 (specimen) TREE TRIMMING SUPERVISOR PM TREE TRIMMING SUPERVISOR Car Joel MD LAB - BLOOD ORDERABLES Performing Organization Address City/[facility] Phon e Number [facility] [address] [address] [facility] IRON AND IRON BINDING CAPACITY (07/28/2013 4:00 PM TREE TRIMMING SUPERVISOR) athologist Signature Iron 99 35 - 180 [facility] ug/dL [facility] Iron Binding 384 240 - 430 [facility] Cap ug/dL [facility] Iron Saturation 26 15 - 46 % [facility] LAB Specimen Anatomical Collection Method Collection Time Receive d Time (Source) Location / / Volume Laterality Blood specimen 07/28/2013 4:00 PM 013 4:01 (specimen) TREE TRIMMING SUPERVISOR PM TREE TRIMMING SUPERVISOR Authorizing Provider Result Елена Joel MD LAB - BLOOD ORDERABLES Performing Organization Address City/State/ZIP Code Phon e Number [facility] [address] [place], [place] [address] [facility] PTH (Parathyroid Hormone) (07/28/2013 4:00 PM TREE TRIMMING SUPERVISOR) P athologist Signature Parathyroid 46 12 - 72 [facility] Hormone Intact pg/mL [facility]S Specimen Anatomical Collection Method Collection Time Receive d Time (Source) Location / / Volume Laterality Blood specimen 07/28/2013 4:00 PM 013 4:01 (specimen) TREE TRIMMING SUPERVISOR PM TREE TRIMMING SUPERVISOR Car Joel MD LAB - BLOOD ORDERABLES Performing Organization Address City/[facility]/ZIP Code Phon e Number [facility] [address] LABS Vitamin B12 (07/28/2013 4:00 PM TREE TRIMMING SUPERVISOR) P athologist Signature Vitamin B12 507 >210 pg/mL [facility] Comment: Interp: [phone] = Normal Specimen Anatomical Collection Method Collection Time Receive d Time (Source) Location / / Volume Laterality Blood specimen 07/28/2013 4:00 PM 013 4:01 (specimen) TREE TRIMMING SUPERVISOR PM TREE TRIMMING SUPERVISOR Authorizing Provider Result Елена Joel MD LAB - BLOOD ORDERABLES Performing Organization Address City/State/ZIP Code Phon e Number [facility] [address] LABS documented in this encounter Visit Diagnoses Diagnosis Bariatric surgery status Overweight and obesity(278.0) documented in this encounter Care Teams Powder Carrier Relationship Specialty Start Date End Date Nemesio Costa MD PCP - General 05/30/11 03/22/20 documented as of this encounter
--- OUTSIDE RECORDS SUMMARY | 2022-04-29 07:27 | XMS_ITS | Encounter Summary ---
:1980 Author Organization [place] Address [address] [place] [address]. [place] [address] Care Team Providers Name Role Phone Nemesio Costa MD Primary Care Provider Matheus Feliciano MD Primary Care Provider Car Joel MD Unavailable Reason for Visit Reason Comments Medication Refill Encounter Details Date Type Department Care Team Description 06/29/2017 Refill [facility] Surgical Juan A Valdovinos, Medication Refill Weight Loss Clinic E olgajerome WEBER [address] [facility] [address] out [address] [facility] [address] [place] [phone] [place] [phone] (Wo rk) Social History Tobacco Use Types Packs/Day Years Used Date Former Smoker Cigarettes Smokeless Tobacco: Never Used Comments: as a child Alcohol Use Standard Drinks/Week Comments No 0 (1 standard drink = 0.6 oz pure alcoho l) Sex Assigned at Date Recorded 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 Miscellaneous Notes Telephone Encounter - Lon Rodriguez PA-C - 07/01/2017 11:32 AM CATTLE KNOCKER Needs appointment LE KNOCKER documented in this encounter Plan of Treatment Not on filedocumented as of this encounter Visit Diagnoses Diagnosis Bariatric surgery status documented in this encounter Care Teams Ged Instructor Relationship Specialty Start Date End Date Nemesio Costa MD PCP - General 05/30/11 03/22/20 Matheus Feliciano MD PCP - General 03/23/[address] [place] [phone] Car Joel MD Assigned Surgical Provider 06/01/20 [address] [place] [address] documented as of this encounter
--- OUTSIDE RECORDS SUMMARY | 2022-04-29 07:27 | XMS_ITS | Encounter Summary ---
:1980 Author Organization [place] Address [address] [place] [address]. [place] [address] Care Team Providers Name Role Phone Nemesio Costa MD Primary Care Provider Reason for Visit Reason Comments Surgical Followup Encounter Details Date Type Department Care Team Description 07/12/2013 Office Visit [facility] Car Joel Bariatr ic surgery status (Primary Dx); Weight Management Overweight and obesity(278.0) [facility] [place] [address] [place] [address] [place] [phone] Social History Tobacco Use Types Packs/Day Years Used Date Former Smoker Cigarettes Smokeless Tobacco: Never Used Comments: as a child Alcohol Use Standard Drinks/Week Comments No 0 (1 standard drink = 0.6 oz pure alcoho l) Sex Assigned at Date Recorded 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 These event has disturbed her adherence to dietary habits, she has realized this problem and is working on a solution. She continued to exercise and has been enjoying DGTS hunting recently. Her gastrointestinal function is good, [...] (PCP), Referring Provider and Include Progress Note NICS SYSTEMS REPAIRER documented in this encounter Plan of Treatment Not on filedocumented as of this encounter Visit Diagnoses Diagnosis Bariatric surgery status - Primary Overweight and obesity(278.0) documented in this encounter Care Teams Fire Control Assistant Relationship Specialty Start Date End Date Nemesio Costa MD PCP - General 05/30/11 03/22/20 documented as of this encounter
--- OUTSIDE RECORDS SUMMARY | 2022-04-29 07:27 | XMS_ITS | Encounter Summary ---
:1980 Author Organization [place] Address [address] [place] [address]. [place] [address] Care Team Providers Name Role Phone Nemesio Costa MD Primary Care Provider Matheus Feliciano MD Primary Care Provider Car Joel MD Unavailable Reason for Visit Reason Comments Medication Refill Encounter Details Date Type Department Care Team Description 06/30/2013 Refill [facility] Weight Montserrat Shepherd Medication Refill Management Clinic [place] TIA [facility] [address] [place] [address] [place] [phone] Social History Tobacco Use Types Packs/Day Years Used Date Former Smoker Cigarettes Smokeless Tobacco: Never Used Comments: as a child Alcohol Use Standard Drinks/Week Comments No 0 (1 standard drink = 0.6 oz pure alcoho l) Sex Assigned at Date Recorded 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
--- OUTSIDE RECORDS SUMMARY | 2022-04-29 07:27 | XMS_ITS | Encounter Summary ---
:1980 Author Organization [place] Address [facility] [place] [address] Care Team Providers Name Role Phone Nemesio Costa MD Primary Care Provider Reason for Visit Reason Onset Date Comments Other 12/29/2012 Encounter Details Date Type Department Care Team Description 12/29/2012 Telephone [facility] Weight Car Joel MD Other Management Clinic [place] [address] [place] [address] [address] [place] [phone] Social History Tobacco Use Types Packs/Day Years Used Date Former Smoker Cigarettes Smokeless Tobacco: Never Used Comments: as a child Alcohol Use Standard Drinks/Week Comments No 0 (1 standard drink = 0.6 oz pure alcoho l) Sex Assigned at Date Recorded 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 She stated that she had 5 bloody stools yesterday and 3 today. There is bright red blood in each of these stools. Greater than 50% of stool is made of bright red blood. Patient does have some abdominal pain and yesterday noticed some lightheadedness. I asked ifmatte has seen anyone. Grcielda stated she had contacted PCP who requested [...] on filedocumented in this encounter Care Teams Wallpaper Scraper Relationship Specialty Start Date End Date Nemesio Costa MD PCP - General 05/30/11 03/22/20 documented as of this encounter
--- OUTSIDE RECORDS SUMMARY | 2022-04-29 07:27 | XMS_ITS | Encounter Summary ---
:1980 Author Organization [place] Address [address] [place] [address]. [place] [address] Care Team Providers Name Role Phone Nemesio Costa MD Primary Care Provider Encounter Details Date Type Department Care Team Description 04/15/2018 Telephone [facility] Surgical Aydin Shepherd Weight Loss Clinic E olga Henley PA-C [address] [facility] [address] [facility] [address] [place] [address] [place] [phone] Social History Tobacco Use Types Packs/Day Years Used Date Former Smoker Cigarettes Smokeless Tobacco: Never Used Comments: as a child Alcohol Use Standard Drinks/Week Comments No 0 (1 standard drink = 0.6 oz pure alcoho l) Sex Assigned at Date Recorded 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 Transferred her to [facility]. documented in this encounter Plan of Treatment Not on filedocumented as of this encounter Visit Diagnoses Not on filedocumented in this encounter Care Teams Associate Professor Of Theology Relationship Specialty Start Date End Date Nemesio Costa MD PCP - General 05/30/11 03/22/20 documented as of this encounter
--- OUTSIDE RECORDS SUMMARY | 2022-04-29 07:27 | XMS_ITS | Encounter Summary ---
:1980 Author Organization [place] Address [address] [place] [address]. [place] [address] Care Team Providers Name Role Phone Nemesio Costa MD Primary Care Provider Reason for Visit Reason Comments Consult new re establish care; PA Encounter Details Date Type Department Care Team Description 11/17/2019 Office Visit [facility] Cora, Montserrat Epigast lorrie pain (Primary Dx); Surgical Weight Loss Maco Henley Bariatric surgery status; Clinic [address] Malnutrition following gastr ointestinal surgery; [address] 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 The patient has been notified of following: This telephone visit will be conducted via a call between you and your physician/provider. We have found that certain health care needs can be provided without the need for a physical exam. This service lets us provide the care you need with a short phone conversation. If a prescription is necessary we can send it directly to your pharmacy. If lab work is needed we can place an order for that and you can then stop by our lab to have the test done at a later time. Telephone visits are billed at different rates depending on your insurance coverage. During this emergency period, for some insurers they may be billed the same as an in-person visit. Please reach out to your insurance provider with any questions. If during the course of the call the physician/provider feels a telephone visit is not appropriate, you will not be charged for this service. Patient has given verbal consent for Telephone visit? Yes How would you like to obtain your AVS? Aniket Gricelda Roberts complains of Chief Complaint Patient presents with ??? Consult new re establish care; EDWARD I have reviewed and updated the patient's Past Medical History, Social History, Family History and Medication List. ALLERGIES Keflex [cephalexin hcl] BARIATRIC TELEPHONIC FOLLOW UP November 17, 2019 HISTORY OF PRESENT ILLNESS: Pt presents today for her telephonic follow-up for epigastric pain. She call the clinic on Thursday in distress. I started her on Carafate and Protonix and asked her to follow up today. Pt is s/p very long gastric bypass with Dr. Joel on 04/17/2011. She was last seen in clinic for 2 year annual visit on 07/12/2013. She has no showed several appointments since. Pt reports about 3 months ago began having sharp stabbing pain to left upper abdomen just below ribcage over 1 of her incisions. Pain presents with eating and during defecation. Pain has been getting worse and more frequent. The one thing that worries her is that once when she had a BM she pushed on one of her left upper side incisions and she felt that if she released that she would have a heart attack. That has only happened once. When she pushes on it now it is sore. Pt denies ANY pain to chest or SOB. ?? Pt also reports she has been having [...] Does not take anything for her stools. ?? Pt states she has been doing well overall during her absence from clinic. States she does not have any other symptoms of illness (fever, SOB, CP). Denies heartburn or vomiting. Denies any other symptoms. ?? Pt denies use of NSAIDS or steroids. Denies alcohol or tobacco. States she does drink regular coffeetwice a day, and about 2 Monsters per day. Pt was seen for the same issue on 09/21/2019 in the ER.(see records reviewed)?? Pt took Protonix 20 mg given at discharge from the hospital for 2 weeks but then did not take anything after that. Called PCP to get Rx for omeprazole but never heard back from them. Since starting the Carafate and Protonix prescribed on Thursday she is feeling some relief. Pt statesafter she takes the Carafate liquid she has some relief for about 2 and 1/2 hours when she takes it. Wt Readings from Last 4 Encounters: 11/17/19 183 lb (83 kg) 07/12/13 181 lb 11.2 oz (82.4 kg) 12/29/12 180 lb (81.6 kg) 01/01/12 194 lb (88 kg) Patient is taking the following bariatric postoperative vitamins: 1 Complete multivitamins with minerals (at different times than calcium) 2000 International Units of Vitamin D daily 600 mg of Calcium daily 1000 mcg of Vitamin B12 sl inj monthly Pt is exercising usually at the gym by swimming and on the treadmill and bike. She is also walking. SOCIAL HISTORY: Pt denies smoking. Pt denies alcohol use. Avoids NSAIDS. REVIEW OF SYSTEMS: GI: Nausea-yes, related to the pain Vomiting-none Diarrhea-none Constipation-yes, intermittent Dysphagia- Abdominal Pain-yes , left upper quadrant, see HPI Heartburn-positive, constant LABS/IMAGING/MEDICAL RECORDS REVIEW: Reviewed Records: ER visit 09/21/2019 [facility]: Dyspepsia (Primary Dx); CT abdomen/pelvis was obtained and WNL. UA was normal except elevated ketones, chemistry WNL, CBC WNL, and LFTs were normal. They were concerned about GI bleed. They started her on Protonix and told her to follow up. ?? Office visit 09/23/2019 for epigastric pain. Pt to continue Protonix for 2 weeks and then switch to Pepcid. HgB was stable. Parathyroid Hormone Intact Date Value Ref Range Status 07/28/2013 46 12 - 72 pg/mL Final Vitamin B12 Date Value Ref Range Status 07/28/2013 507 >210 pg/mL Final Comment: Interp: [id number] = Normal Hemoglobin Date Value Ref Range Status 07/28/2013 14.3 11.7 - 15.7 g/dL Final Ferritin Date Value Ref Range Status 07/28/2013 20 10 - 120 ng/mL Final Iron Date Value Ref Range Status 07/28/2013 99 35 - 180 ug/dL Final Iron Binding Cap Date Value Ref Range Status 07/28/2013 384 240 - 430 ug/dL Final Iron Saturation Index Date Value Ref Range Status 07/28/2013 26 15 - 46 % Final 10/20/2011 37 15 - 46 % Final 03/04/2011 26 15 - 46 % Final PHYSICAL EXAMINATION: Ht 5' 5 (1.651 m) Wt 183 lb (83 kg) BMI 30.45 kg/m?? GENERAL: Pt sounds in NAD Alert and Oriented Abd: Pt had pain when self palpating epigastric region and left under rib cage. ASSESSMENT AND PLAN: 1. Epigastric pain/ Suspected Ulcer Continue Carafate 10 ml QID x 10 days Continue Protonix 40 mg daily for 2 months. Stop all caffeine. If pain still present at follow up will consider EGD. 2. Bariatric surgery status S/P Gastric Bypass surgery 3. Malnutrition following gastrointestinal surgery Reviewed recommended post-op vitamins. Increase MVI to 2 daily Add second calcium daily. Increase vitamin D to 5000 international unit(s) daily Will order labs post COVID at follow up visit. 4. Obesity Body mass index is 30.45 kg/m??. Pt to follow up Post Covid in clinic with diet/PA for annual with labs. Follow up: Return to clinic in 2 months for ulcer follow up. Post Covid in clinic with diet/PA for annual with labs. Phone call duration: 27 minutes Montserrat Shepherd PA-C documented in this encounter Plan of Treatment Not on filedocumented as of this encounter Visit Diagnoses Diagnosis Epigastric pain - Primary Abdominal pain, epigastric Bariatric surgery status Malnutrition following gastrointestinal surgery Other and unspecified postsurgical nonab sorption Class 1 obesity due to excess calories w ithout serious comorbidity with body mass index (BMI) of 30.0 to 30.9 in adult documented in this encounter Care Teams Head Strength And Conditioning Coach Relationship Specialty Start Date End Date Nemesio Costa MD PCP - General 05/30/11 03/22/20 documented as of this encounter
--- OUTSIDE RECORDS SUMMARY | 2022-04-29 07:27 | XMS_ITS | Encounter Summary ---
:1980 Author Organization [place] Address [address] [place] [address] Care Team Providers Name Role Phone Nemesio Costa MD Primary Care Provider Encounter Details Date Type Department Care Team Description 09/09/2017 Therapy Visit [facility] Trista Starr P T Cervicalgia (Primary Dx); Rehabilitation Services [facility] Chronic bilateral low back pain without sciatica [place] [address] [facility] [address] [place] [phone] Social History Tobacco Use Types Packs/Day Years Used Date Former Smoker Cigarettes Smokeless Tobacco: Never Used Comments: as a child Alcohol Use Standard Drinks/Week Comments No 0 (1 standard drink = 0.6 oz pure alcoho l) Sex Assigned at Date Recorded Female 06/29/2021 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 Referral: [facility] Nemesio Costa MD Work mechanical stresses: None [...] not really with response (short term), PT [email or web address] Specific Questions: Cough/Sneeze/Strain (pos/neg): Neg Bowel/Bladder (normal/abnormal): Normal Gait (normal/abnormal): Normal Medications (nil/NSAIDS/analg/steroids/anticoag/other): Other - Anti-seizure, Thyroid and Sleep Medical allergies: None General health (excellent/good/fair/poor): Good Pertinent medical history: Seizures, Depression, Thyroid problems, Migraines/Headaches and Obesity, reoccurring abdominal surgeries: gallbladder, appendectomy, hysterectomy, tonsillectomy, episodic B knee pain with B braces/PT without results Imaging (None/Xray/MRI/Other): Xrays 8-[address] Ramsey at [facility], Dr Grady at [facility] (knees) Recent or major surgery (yes/no): [...] Sheet for this information) Short term and FDC goals: (See Goal Flow Sheet for this [...] and time spent performing 1:1 timed codes. R LAYER SCRUBBER TENDER documented in this encounter Plan of Treatment Not on filedocumented as of this encounter Procedures Procedure Name Priority Date/Time Associated Diagnosis Comme nts Z NEUROMUSCULAR Routine 09/09/2017 5:41 PM Cervicalgia RE-EDUCATION INNER LAYER SCRUBBER TENDER Chronic bilateral low back pain without sciatica [facility] THERAPEUTIC EXERCISES Routine 09/09/2017 5:41 PM Cer vicalgia INNER LAYER SCRUBBER TENDER Chronic bilateral low back pain without sciatica documented in this encounter Visit Diagnoses Diagnosis Cervicalgia - Primary Chronic bilateral low back pain without sciatica documented in this encounter Care Teams Media Analytics Manager Relationship Specialty Start Date End Date Nemesio Costa MD PCP - General 05/30/11 03/22/20 documented as of this encounter
--- OUTSIDE RECORDS SUMMARY | 2022-04-29 07:27 | XMS_ITS | Encounter Summary ---
:1980 Author Organization [place] Address [address] [place] [address]. [place] [address] Care Team Providers Name Role Phone Nemesio Costa MD Primary Care Provider Matheus Feliciano MD Primary Care Provider Car Joel MD Unavailable Reason for Visit Reason Comments Refill Request Encounter Details Date Type Department Care Team Description 05/08/2013 Refill [facility] Weight Montserrat Shepherd Refill Request Management Clinic [place] TIA Hen[place] [address] 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
--- OUTSIDE RECORDS SUMMARY | 2022-04-29 07:27 | XMS_ITS | Encounter Summary ---
:1980 Author Organization [place] Address [address] [place] [address]. [place] [address] Care Team Providers Name Role Phone Nemesio Costa MD Primary Care Provider Encounter Details Date Type Department Care Team Description 07/22/2013 Orders Only 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
--- OUTSIDE RECORDS SUMMARY | 2022-04-29 07:27 | XMS_ITS | Encounter Summary ---
:1980 Author Organization [facility] Address [address] [place] [address] Care Team Providers Name Role Phone Nemesio Costa MD Primary Care Provider Reason for Visit Reason Comments Other Encounter Details Date Type Department Care Team Description 12/29/2012 Emergency [facility] Javi Carreno He [place] ([facility] Emergency Dx) Dept [facility] [address] [place], [place] [address] [address] [phone] [place] [address] [place], [place] [address] (Wo rk) Social History Tobacco Use Types Packs/Day Years Used Date Former Smoker Cigarettes Smokeless Tobacco: Never Used Comments: as a child Alcohol Use Standard Drinks/Week Comments No 0 (1 standard drink = 0.6 oz pure alcoho l) Sex Assigned at Date Recorded Female 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 RECTAL BLEED, STABLE (YI)documented in this encounter Medications at Time of [...] she followed up with her PMD at [facility]. They checked her for any sign of [...] athologist Signature HCG Qual Urine Negative NEG [facility] Specimen Anatomical Collection Method Collection Time Receive d Time (Source) Location / / Volume Laterality Urine specimen URINE SPECIMEN 12/29/2012 5:47 PM 12/29 6:03 (specimen) OBTAINED BY CLEAN CDT PM CDT CATCH PROCEDURE / Unknown Darryl Larson MD LAB - URINE ORDERABLES Performing Organization Address City/State/ZIP Code Phon e Number M [facility] [address], [place] [address] [facility] (ABNORMAL) Routine UA with microscopic (12/29/2012 5:47 PM CDT) [facility] Method Time Signature Color Urine Light Yellow [facility] Appearance Urine Clear [facility] Glucose Urine Negative NEG mg/dL [facility] Bilirubin Urine Negative NEG [facility] Ketones Urine 10 (A) NEG mg/dL [facility] Specific [place] 1.050 (H) 1.003 - [place] Urine 1.035 [facility] Blood Urine Negative NEG [facility] pH Urine 6.0 5.0 - 7.0 [place] pH [facility] Protein Albumin Negative NEG mg/dL [facility] Urobilinogen Normal 0.0 - 2.0 [place] mg/dL mg/dL [facility] Nitrite Urine Negative NEG [facility] Leukocyte Trace (A) NEG [place] Esterase Urine [facility] Source [facility] WBC Urine 2 0 - 2 [place] /HPF [facility] RBC Urine <1 0 - 2 [place] /[facility] Squamous 1 0 - 1 [place] Epithelial /HPF /HPF [facility] Mucous Urine Present (A) NEG /LPF [facility] Specimen Anatomical Collection Method Collection Time Receive d Time (Source) Location / / Volume Laterality Urine specimen URINE SPECIMEN 12/29/2012 5:47 PM 12/29 6:03 (specimen) OBTAINED BY CLEAN CDT PM CDT CATCH PROCEDURE / Unknown Darryl Larson MD LAB - URINE ORDERABLES Performing Organization Address City/State/ZIP Code Phon e Number M [place] [address], [place] [address] [facility] CT Abdomen Pelvis w Contrast (12/29/2012 [...] Component Value Ref Test Analysis Performed At [facility] Method Time Signature Specimen Feces [facility] LAB C Diff Toxin B Negative: Clostridium diffic ile target DNA sequences NOT detected, presumed [facility] PCR negative for Clostridium di fficile toxin B or the number of bacteria present MICROBIOLOGY may be below the limit of detection for the test. FDA approved assay performed using [employer] GeneXpert real-t kathie PCR. A negative result [...] MICRO GENERAL ORDERABL ES Performing Organization Address City/[facility] Phon e Number [address] LAB [facility] MICROBIOLOGY Stool: culture SSCE (12/29/2012 5:13 PM CDT) Component Value Ref Test Analysis Performed At [facility] Method Time Signature Specimen Feces [facility] Shiga-Toxins Shiga toxin 1 NOT detected a nd Shiga toxin 2 NOT detected. ? Test results [facility] 1&2 are to be used in conjunction with information available from the patient MICROBIOLOGY clinical evaluation and other diagnostic procedures. Culture Micro No Salmonella, Shigella, Cam pylobacter, E. coli O157, Aeromonas, or Plesiomonas [facility] isolated. MICROBIOLOGY Micro Report FINAL [facility] Status 01/01/2013 MICROBIOLOGY Specimen Anatomical Collection Method Collection Time Receive d Time (Source) Location / / Volume Laterality Stool specimen 12/29/2012 5:13 PM 013 6:04 (specimen) CDT PM CDT Javi Carreno MD LAB - MICRO GENERAL ORDERABL ES Performing Organization Address City/[facility] Phon e Number [address] LAB [facility] MICROBIOLOGY Comprehensive metabolic panel (12/29/2012 4:05 PM CDT) P athologist Signature Sodium 142 133 - 144 [place] mmol/L [facility] Potassium 4.1 3.4 - 5.3 [place] mmol/L [facility] Chloride 105 94 - 109 [place] mmol/L [facility] Carbon Dioxide 24 20 - 32 [place] mmol/L [facility] Anion Gap 12.3 6 - 17 [place] mmol/L [facility] Glucose 80 60 - 99 [place] mg/dL [facility] Urea Nitrogen 15 5 - 24 [place] mg/dL [facility] Creatinine 0.61 0.52 - [facility] 1.04 mg/dL [facility] GFR Estimate >90 >60 [place] mL/min/[address] [place] [address] LAB GFR Estimate If >90 >60 [place] Black mL/min/1.[address] [place] [address] LAB Calcium 9.3 8.5 - 10.4 [place] mg/dL [facility] Bilirubin Total 0.3 0.2 - 1.3 [place] mg/dL [facility] Albumin 4.3 3.9 - 5.1 [place] g/dL [facility] Protein Total 7.0 6.8 - 8.8 [place] g/dL [facility] Alkaline 44 40 - 150 [place] Phosphatase U/L [facility] ALT 23 0 - 50 U/L [facility] AST 22 0 - 45 U/L [facility] Specimen Anatomical Collection Method Collection Time Receive d Time (Source) Location / / Volume Laterality Blood specimen 12/29/2012 4:05 PM 013 4:25 (specimen) CDT PM CDT Darryl Larson MD LAB - BLOOD ORDERABLES Performing Organization Address City/State/ZIP Code Phon e Number M [facility] [address], [place] [address] [facility] (ABNORMAL) CBC + differential (12/29/2012 4:05 PM CDT) Patholo gist Method Time Signature WBC 11.0 4.0 - [facility] 11.0 [facility] 10e9/L [facility] LAB RBC Count 3.70 (L) 3.8 - 5.2 [place] 10e12/L [facility] Hemoglobin 11.5 (L) 11.7 - [place] 15.7 g/dL [facility] Hematocrit 34.3 (L) 35.0 - [facility] 47.0 % [facility] MCV 93 78 - 100 [place] fl [facility] MCH 31.1 26.5 - [facility] 33.0 pg [facility] LAB MCHC 33.5 31.5 - [place] 36.5 g/dL [facility] RDW 12.0 10.0 - [place] 15.0 % [facility] Platelet Count 323 150 - [address] [place] [address] [place] [address] LAB Diff Method Automated [facility] % Neutrophils 59.9 40 - 75 % [facility] % Lymphocytes 33.5 20 - 48 % [facility] % Monocytes 5.2 0 - 12 % [facility] % Eosinophils 0.4 0 - 6 % [facility] % Basophils 0.5 0 - 2 % [facility] % Immature 0.5 (H) 0 - 0.4 % [place] Granulocytes [facility] Absolute 6.6 1.6 - 8.3 [place] Neutrophil 10e9/L [facility] Absolute 3.7 0.8 - 5.3 [place] Lymphocytes [address] LAB Absolute 0.6 0.0 - 1.3 [place] Monocytes [address] LAB Absolute 0.0 0.0 - 0.7 [place] Eosinophils [address] LAB Absolute 0.1 0.0 - 0.2 [place] Basophils [address] LAB Abs Immature 0.1 (H) 0 - 0.03 [place] Granulocytes [address] [place] [address] LAB Specimen Anatomical Collection Method Collection Time Receive d Time (Source) Location / / Volume Laterality Blood specimen 12/29/2012 4:05 PM 013 4:25 (specimen) CDT PM CDT Darryl Larson MD LAB - BLOOD ORDERABLES Performing Organization Address City/State/ZIP Code Phon e Number M [facility] [address] [place], [place] [address] [facility] documented in this encounter Visit Diagnoses [...] Provider: Brian Hudson)1730 (New Bag - Provider: Brian Hudson - Comment: bulk) Intravenous, 1,000 mL, ONCE, Thu13 at 1730, For 1 dose documented in this encounter Care Teams Police Justice Relationship Specialty Start Date End Date Nemesio Costa MD PCP - General 05/30/11 03/22/20 documented as of this encounter
--- OUTSIDE RECORDS SUMMARY | 2022-04-29 07:27 | XMS_ITS | Encounter Summary ---
:1980 Author Organization [facility] Address [address] [place] [address]. [place] [address] Care Team Providers Name Role Phone Nemesio Costa MD Primary Care Provider Matheus Feliciano MD Primary Care Provider Car Joel MD Unavailable Reason for Visit Reason Comments Medication Refill Encounter Details Date Type Department Care Team Description 09/12/2016 Refill [facility] Surgical Juan A Valdovinos, Medication Refill Weight [facility] Clinic E olga PA-C [address] [facility] [address] [facility] [address] [facility] [address] [place] [phone] [place] [id number] (Wo rk) Social History Tobacco Use Types Packs/Day Years Used Date Former Smoker Cigarettes Smokeless Tobacco: Never Used Comments: as a child Alcohol Use Standard Drinks/Week Comments No 0 (1 standard drink = 0.6 oz pure alcoho l) Sex Assigned at Date Recorded Female 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
--- OUTSIDE RECORDS SUMMARY | 2022-04-29 07:27 | XMS_ITS | Encounter Summary ---
:1980 Author Organization [facility] Address [address] [place] [address]. [place] [address] Care Team Providers Name Role Phone Nemesio Costa MD Primary Care Provider Reason for Referral Diagnostic Imaging CT Scan (Routine) - Closed Specialty Diagnoses / Procedures Referred By Contact Refer red To Contact Radiology. Diagnoses Bariatric surgery status Left upper quadrant pain Sh Surgical Wght Loss Sh Ct Scan Procedures CT Abdomen Pelvis w Contrast [address] [address] [employer] [address] [place] [phone] [place] [phone] Referral ID Status Reason Start Date Expiration Date Visits Requ ested Visits Authorized [id number] Closed 11/29/2019 11/28/2020 1 1 Reason for Visit Reason Onset Date Comments Appointment 11/28/2019 Encounter Details Date Type Department Care Team Description 11/28/2019 Telephone [facility] Surgical Weight BrendaMaicol patricioanine Appointment Loss Clinic [place] [address] [place] [phone] Social History Tobacco Use Types Packs/Day Years Used Date Former Smoker Cigarettes Smokeless Tobacco: Never Used Comments: as a child Alcohol Use Standard Drinks/Week Comments No 0 (1 standard drink = 0.6 oz pure alcoho l) Sex Assigned at Date Recorded 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 documented as of this encounter Miscellaneous Notes Telephone Encounter - Valarie Castro RN - 11/29/2019 11:33 AM CDT Ok. Called surgeon radiation / chemistry technician Thursday night (Dr. Joyner). States she is not feeling good. Having alot of pain and problems with constipation. Pt reports she is still having a lot of constipation since last Thursday. States she has NOT tried theenemas suggested because she hasn't had time to get to the store. Had small hard BM yesterday. Hard to push out BM and pass gas. Has to push to do this. Also has intermittent lower abdominal pressure and cramping. However tried to have a BM on Thursday and felt a pop. States she noticed a lump near her left upper abdomen laparoscopic site afterward that hurts really bad. States she has a hard lump there that will not push in or out. States pain is 7/10 and has been constant. Called Dr. Joyner and told to be seen in person in clinic this week for possible hernia at lap site. States she is drinking ok but can't eat hardly anything or take pills. She immediately feels like she is too full and has to vomit it out. Has not been vomiting though. Has constant nausea. Wants to know what to do. Will page surgeon radiation / chemistry technician for general/bariatric surgery. Pt will come in today but needs to know right away. States ok to tell about her appointment if he answers phone instead. Paged Dr. Joel re: this. Reviewed pt recent hx with clinic. TORB given for abdominal/pelvic CT with contrast stat today. Dr. Joel states he will watch for CT and call pt himself with results and plan. Scheduled pt for 2:30 check in and [address] today. Pt agreeable to plan; will wait in [place] for results. Valarie Castro RN on 11/29/2019 at 11:53 AM Telephone Encounter - Valarie Castro, RN - 11/29/2019 11:20 AM CDT Called pt about appointment question and about her status after treatment last week. Spoke to pt , emergency contact. He states that patient called radiation / chemistry technician number on the weekend and talked to oncall doctor about abdominal pain. [facility] pt was told to be seen in general surgery clinic in person this week to check for possible upper abdominal hernia, needs physical exam. States he wants to get appointment scheduled for this. States pt is not available to talk right now. Reached out to general surgery clinic scheduling to set this up. Requested for pt to call clinic with update on her status at her soonest convenience. stateshe will have her do this. Valarie Castro RN on 11/29/2019 at 11:29 AM Telephone Encounter - Valarie Castro RN - 11/28/2019 4:06 PM CDT Reviewed chart. No documented plan to see surgeon as part of current care. Called back to number requested. No answer. Left message asking for call back. Valarie Castro RN on 11/28/2019 at 4:07 PM Telephone Encounter - Geni Olmos - 11/28/2019 3:19 PM CDT Reason for call: Other Patient called regarding (reason for call): call back Additional comments: Patient spoke with nurse juanita and is looking to schedule an appointment with Allyn. Please reach out to the patient to assist in scheduling. Phone number to reach patient: Work number on file: [phone] (work) Best Time: Anytime Can we leave a detailed message on this number? YES Travel screening: Not Applicable documented in this encounter Plan of Treatment Not on filedocumented as of this encounter Results CT Abdomen Pelvis w [...] Diagnoses Diagnosis Bariatric surgery status - Primary Left upper quadrant pain Abdominal pain, left upper quadrant Bariatric surgery status Left upper quadrant pain Abdominal pain, left upper quadrant documented in this encounter Care Teams Municipal Firefighter Relationship Specialty Start Date End Date Nemesio Costa MD PCP - General 05/30/11 03/22/20 documented as of this encounter
--- OUTSIDE RECORDS SUMMARY | 2022-04-29 07:28 | XMS_ITS | Encounter Summary ---
:1980 Author Organization [facility] Address [address] [place] [address]. 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 documented as of this encounter Plan of [...] with platelets differential (06/06/2010 3:46 PM CDT) [facility] Method Time Signature MCV 87 78 - [...] LAB - BLOOD ORDERABLES Performing Organization Address City/[facility] Phon e Number [facility] Hemoglobin A1c (06/06/2010 3:46 PM CDT) P athologist Signature Hemoglobin A1C 6.0 4.3 - 6.0 % [facility] Specimen Anatomical Collection Method Collection Time Receive d Time (Source) Location / / Volume Laterality 06/06/2010 3:46 PM 0 3:52 CDT PM CDT Rebecca Conteh MD LAB - BLOOD ORDERABLES Performing Organization Address City/[facility] Phon e Number [facility] INR (06/06/2010 3:46 PM CDT) athologist Signature INR 0.99 0.86 - 1.14 [facility] Specimen Anatomical Collection Method Collection Time Receive d Time (Source) Location / / Volume Laterality 06/06/2010 3:46 PM 0 3:52 CDT PM CDT Rebecca Conteh MD LAB - BLOOD ORDERABLES Performing Organization Address City/[facility] Code Phon e Number [facility] TSH (06/06/2010 3:46 PM CDT) P athologist Signature TSH 1.85 0.4 - 5.0 [facility] mU/L Specimen Anatomical Collection Method Collection Time Receive d Time (Source) Location / / Volume Laterality 06/06/2010 3:46 PM 0 3:52 CDT PM CDT Rebecca Conteh MD LAB - BLOOD ORDERABLES Performing Organization Address City/[facility]/ZIP Code Phon e Number [facility] documented in this encounter Visit Diagnoses Not on filedocumented in this encounter
--- OUTSIDE RECORDS SUMMARY | 2022-04-29 07:28 | XMS_ITS | Encounter Summary ---
:1980 Author Organization [facility] Address [address] [place] [address]. 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 Values may decrease during pawel er months and increase CAMPUS LABS during summer months. Values less than 30 ug/L may indicate Vitamin D deficiency. Specimen Anatomical Collection Method Collection Time Receive d Time (Source) Location / / Volume Laterality 03/04/2011 2:03 PM 1 2:05 CDT PM CDT Gagan Worthington MD LAB - BLOOD ORDERABLES Performing Organization Address City/State/ZIP Code Phon e Number [address] [address] [facility] LABS Vitamin B1 whole blood (03/04/2011 2:03 PM CDT) athologist Signature Vitamin B1 [address] [place] Whole Blood [facility] LAB Comment: Reference range: 70 to 180 [...] 10%, are not celsa ured. Performed by [employer], [address] [place] [id number] [email or web address], Rebekah Randall MD, Lab. Director Specimen Anatomical Collection Method Collection Time Receive d Time (Source) Location / / Volume Laterality 03/04/2011 2:03 PM 1 2:05 CDT PM CDT Gagan Worthington MD LAB - BLOOD ORDERABLES Performing Organization Address City/State/ZIP Code Phon e Number [facility] [address] [place], [place] [address] [facility] Vitamin B12 (03/04/2011 2:03 PM CDT) athologist Signature Vitamin B12 343 >210 pg/mL [facility] Comment: Interp: [phone] = Normal Specimen Anatomical Collection Method Collection Time Receive d Time (Source) Location / / Volume Laterality 03/04/2011 2:03 PM 1 2:05 CDT PM CDT Gagan Worthington MD LAB - BLOOD ORDERABLES Performing Organization Address City/[facility]/ZIP Code Phon e Number [address] LABS Parathormone intact (03/04/2011 2:03 PM CDT) athologist Signature Parathyroid 43 12 - 72 [facility] Hormone Intact pg/mL [facility]S Specimen Anatomical Collection Method Collection Time Receive d Time (Source) Location / / Volume Laterality 03/04/2011 2:03 PM 1 2:05 CDT PM CDT Gagan Worthington MD LAB - BLOOD ORDERABLES Performing Organization Address City/[facility]/ZIP Code Phon e Number [address] LABS Ferritin (03/04/2011 2:03 PM CDT) athologist Signature Ferritin 62 10 - 120 [facility] ng/mL [facility] Specimen Anatomical Collection Method Collection Time Receive d Time (Source) Location / / Volume Laterality 03/04/2011 2:03 PM 1 2:05 CDT PM CDT Gagan Worthington MD LAB - BLOOD ORDERABLES Performing Organization Address City/[facility]/ZIP Code Phon e Number [facility] [address] [place], [place] [address] [facility] Iron and iron binding capacity (03/04/2011 2:03 PM CDT) athologist Signature Iron 81 35 - 180 [place] ug/dL [facility] Iron Binding 310 240 - 430 [place] Cap ug/dL [facility] LAB Iron Saturation 26 15 - 46 % [facility] LAB Specimen Anatomical Collection Method Collection Time Receive d Time (Source) Location / / Volume Laterality 03/04/2011 2:03 PM 1 2:05 CDT PM CDT Gagan Worthington MD LAB - BLOOD ORDERABLES Performing Organization Address City/State/ZIP Code Phon e Number [facility] [address] [place], [place] [address] [facility] documented in this encounter Visit Diagnoses Not on filedocumented in this encounter
--- OUTSIDE RECORDS SUMMARY | 2022-04-29 07:28 | XMS_ITS | Encounter Summary ---
:1980 Author Organization [place] Address [address] [place] [address]. 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 The patient states that her MOLD TOOLING TECHNICIAN physician is Yakov Mcgarry at [facility] MOLD TOOLING TECHNICIAN. The patient requests a copy of this note go to this provider. The patient is working on establishing a primary care provider in family practice or internal medicine and will update us when she has made her choice of physicians. Her and her believe they will be going to [facility] in [place]. The patient reports problems with her weight [...] The patient is . She is a djwo-ei-fmib mother of 2 daughters, ages 2 and [...] an appointment with Dr. Jesus Humphrey in [place] for her psychological evaluation. She was also [...] EM#[id number] Name: MUKUL REID MRN: [id number] Account: [id number] : 1980 Visit Date: 06/06/2010 Document: [id number] cc: Yakov Mcgarry MD FORM ATTENDANT documented in this encounter Plan of Treatment Not on filedocumented as of this encounter Visit Diagnoses Not on filedocumented in this encounter
--- OUTSIDE RECORDS SUMMARY | 2022-04-29 07:28 | XMS_ITS | Encounter Summary ---
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 Values/Beliefs/Spiritual Care [...] none Considerations - Developmental none Considerations - Advent none Considerations Mutuality/Individual Preferences - What information [...]
--- OUTSIDE RECORDS SUMMARY | 2022-04-29 07:28 | XMS_ITS | Encounter Summary ---
:1980 Author Organization [place] Address [address] [place] [address]. 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
--- OUTSIDE RECORDS SUMMARY | 2022-04-29 07:28 | XMS_ITS | Encounter Summary ---
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 Patient does not have nausea or vomiting. Drinking 64 oz fluid per day. Patient drinking protein shake, mixing it with water. Patient's and daughters were present during session. GOALS: Start puree diet at day 14 post op Increase to solids at day 28 post op Continue multivitamin, calcium with vitamin D, additional vitamin D and B12 Aim for 60 to 70 grams protein Continue drinking 48 to 64 oz of fluid per day Nutrition class at 4 to 6 week post op Follow up at 3 months post op TIME SPENT WITH PATIENT: 30 minutes [Signature] Author: TISH GARG (MEd, RD, LD) [Signed 15:15] documented in this encounter Plan of Treatment Not on filedocumented as of this encounter Visit Diagnoses Not on filedocumented in this encounter
--- OUTSIDE RECORDS SUMMARY | 2022-04-29 07:28 | XMS_ITS | Encounter Summary ---
:1980 Author Organization [place] Address [address] [place] [address]. [place] [address] Care Team Providers Name Role Phone Unavailable Primary Care Provider Unavailable Reason for Visit Surgical Procedure Inpatient (Routine) - Closed Specialty Diagnoses / Procedures Referred By Contact Refer red To Contact Surgery Diagnoses Morbid obesity (H) Laparoscopic Gastric Bypass [phone] Julián Rojo MD Benn, Paul Luhman, MD Procedures [facility] [address] [place] [address] [place] [address] Fax: Referral ID Status Reason Start Date Expiration Date Visits Requ ested Visits Authorized [id number] Closed 04/17/2011 08/09/2011 1 1 Encounter Details Date Type Department Care Team Description 04/17/2011 Office Visit [facility] SUR[facility] Julián Rojo MD [address] [place] [address] Juan A Valdovinos PA-C [address] [place] [id number] Social History Tobacco Use Types Packs/Day Years Used Date Never Assessed Sex Assigned at Date Recorded 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
--- OUTSIDE RECORDS SUMMARY | 2022-04-29 07:28 | XMS_ITS | Encounter Summary ---
:1980 Author Organization [facility] Address [address] [place] [address]. 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 Values may decrease during pawel er months and increase [facility] during summer months. Values less than 30 ug/L may indicate Vitamin D deficiency. Specimen Anatomical Collection Method Collection Time Receive d Time (Source) Location / / Volume Laterality 10/20/2011 4:49 PM 2 5:25 CDT PM CDT Montserrat Shepherd PA-C LAB - BLOOD ORDERABLES Performing Organization Address City/[facility]/ZIP Code Phon e Number [address] LABS Vitamin B12 (10/20/2011 4:49 PM CDT) athologist Signature Vitamin B12 331 >210 pg/mL [facility] Comment: Interp: [phone] = Normal Specimen Anatomical Collection Method Collection Time Receive d Time (Source) Location / / Volume Laterality 10/20/2011 4:49 PM 2 5:25 CDT PM CDT Montserrat Shepherd PA-C LAB - BLOOD ORDERABLES Performing Organization Address City/State/ZIP Code Phon e Number [address] LABS Parathormone intact (10/20/2011 4:49 PM CDT) athologist Signature Parathyroid 33 12 - 72 [facility] Hormone Intact pg/mL [facility] Comment: The PTHI reagent has been [...] Address City/State/ZIP Code Phon e Number [facility] [address] [place] [address] [facility] Ferritin (10/20/2011 4:49 PM CDT) athologist Signature Ferritin 99 10 - 120 [facility] ng/mL [facility] Specimen Anatomical Collection Method Collection Time Receive d Time (Source) Location / / Volume Laterality 10/20/2011 4:49 PM 2 5:25 CDT PM CDT Montserrat Kale Shepherd PA-C LAB - BLOOD ORDERABLES Performing Organization Address City/[facility]/ZIP Code Phon e Number [facility] [address] [place], [place] [address] [facility] Iron and iron binding capacity (10/20/2011 4:49 PM CDT) athologist Signature Iron 95 35 - 180 [place] ug/dL [facility] Iron Binding 259 240 - 430 [place] Cap ug/dL [facility] Iron Saturation 37 15 - 46 % [facility] LAB Specimen Anatomical Collection Method Collection Time Receive d Time (Source) Location / / Volume Laterality 10/20/2011 4:49 PM 2 5:25 CDT PM CDT Montserrat Kale Shepherd PA-C LAB - BLOOD ORDERABLES Performing Organization Address City/[facility]/ZIP Code Phon e Number [facility] [address] [place], [place] [address] [facility] CBC with platelets (10/20/2011 4:49 PM CDT) athologist Signature WBC 10.6 4.0 - 11.0 [place] 10e9/L [facility] RBC Count 4.67 3.8 - 5.2 [place] 10e12/L [facility] Hemoglobin 14.4 11.7 - [place] 15.7 g/dL [facility] Hematocrit 42.9 35.0 - [place] 47.0 % [facility] MCV 92 78 - 100 [place] fl [facility] MCH 30.8 26.5 - [place] 33.0 pg [facility] LAB MCHC 33.6 31.5 - [place] 36.5 g/dL [facility] RDW 12.7 10.0 - [place] 15.0 % [facility] Platelet Count 293 150 - 450 [place] 10e9/L [facility] Specimen Anatomical Collection Method Collection Time Receive d Time (Source) Location / / Volume Laterality 10/20/2011 4:49 PM 2 5:25 CDT PM CDT Montserrat Shepherd PA-C LAB - BLOOD ORDERABLES Performing Organization Address City/State/ZIP Code Phon e Number [place] [address] [address] [place], [place] [address] [facility] documented in this encounter Visit Diagnoses Not on filedocumented in this encounter Care Teams Title Specialist Relationship Specialty Start Date End Date Nemesio Costa MD PCP - General 05/30/11 03/22/20 documented as of this encounter
--- OUTSIDE RECORDS SUMMARY | 2022-04-29 07:28 | XMS_ITS | Encounter Summary ---
:1980 Author Organization [place] Address [address] [place] [address]. 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
--- OUTSIDE RECORDS SUMMARY | 2022-04-29 07:28 | XMS_ITS | Encounter Summary ---
:1980 Author Organization [place] Address [address] [place] [address] Care Team Providers Name Role Phone Unavailable Primary Care Provider Unavailable Encounter Details Date Type Department Care Team Description 04/18/2011 Historic Notes INTERFACED REPORT Interface, Transcript onMD Social History Tobacco Use Types Packs/Day Years Used Date Never Assessed Sex Assigned at Date Recorded Female 06/29/2021 12:12 PM DEAN OF [place] documented as of this encounter Progress Notes Interface, Manager Instrumentation - 05/12/2011 5:35 PM CDT BARIATRIC SURGERY [...]
--- OUTSIDE RECORDS SUMMARY | 2022-04-29 07:28 | XMS_ITS | Encounter Summary ---
:1980 Author Organization [facility] Address [address] [place] [address]. [place] [address] Care Team Providers Name Role Phone Unavailable Primary Care Provider Unavailable Encounter Details Date Type Department Care Team Description 04/18/2011 Results Only [facility] Juan A Maloney, 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 Dis kaylyn esophagus and gastric remnant appear normal. Normally function ing gastrojejunostomy. No evidence for obstruction or extravasatio n. IMPRESSION: ?Normal postoperative up per GI. Juan A Valdovinos PA-C IMG DIAGNOSTIC IMAGING ORDER TONY Performing Organization Address City/State/ZIP Code Phon e Number RADIOLOGY RESULTS documented in this encounter Visit Diagnoses Not on filedocumented in this encounter
--- OUTSIDE RECORDS SUMMARY | 2022-04-29 07:28 | XMS_ITS | Encounter Summary ---
:1980 Author Organization [facility] Address [address] [place] [address]. 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
--- OUTSIDE RECORDS SUMMARY | 2022-04-29 07:28 | XMS_ITS | Encounter Summary ---
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
--- OUTSIDE RECORDS SUMMARY | 2022-04-29 07:28 | XMS_ITS | Encounter Summary ---
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 [facility] LT DUPLEX Routine 02/27/2010 7:21 PM Results [...]
--- OUTSIDE RECORDS SUMMARY | 2022-04-29 07:28 | XMS_ITS | Encounter Summary ---
:1980 Author Organization [facility] Address [address] [place] [address]. 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 documented in this encounter Results C POLYSOMNOGRAPHY, 4 OR MORE (07/06/2010 1:54 PM INDUSTRIAL ECOLOGIST) Transcriptions Luciano Poe - 07/06/2010 1:54 P M INDUSTRIAL ECOLOGIST FINAL POLYSOMNOGRAM PATIENT: Mukul Reid SUMMARY: Overnight [...] nr Name: MUKUL REID MRN: [id number] Account: [id number] : 1980 Visit Date: 07/01/2010 Document: [id number] Luciano Poe MD PROCEDURES documented in this encounter Visit Diagnoses Not on filedocumented in this encounter
--- OUTSIDE RECORDS SUMMARY | 2022-04-29 07:28 | XMS_ITS | Encounter Summary ---
:1980 Author Organization [place] Address [address] [place] [address]. 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 reviewed bariatric precautions, written instructions given to patient. iv site removed, medications discussed and new scripts filled by pharmacy and given to patient. discussed w/pt f/u care and instructed pt to f/u with clinic, physical therapy and nutrition. pt verbalized understanding. KIKO Mratin)[Signed 18:54] Authored: Progress Note documented in this encounter Plan of Treatment Not on filedocumented as of this encounter Visit Diagnoses Not on filedocumented in this encounter
--- OUTSIDE RECORDS SUMMARY | 2022-04-29 07:28 | XMS_ITS | Encounter Summary ---
:1980 Author Organization [place] Address [address] [place] [address]. 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 documented in this encounter Results Platelet count (04/17/2011 6:05 AM CDT) P athologist Signature Platelet Count 287 150 - 450 [place] 10e9/L [facility] Specimen Anatomical Collection Method Collection Time Receive d Time (Source) Location / / Volume Laterality 04/17/2011 6:05 AM 6:14 CDT AM CDT Car Joel MD LAB - BLOOD ORDERABLES Performing Organization Address City/State/ZIP Code Phon e Number [facility] [address] [place] [address] [facility] documented in this encounter Visit Diagnoses Not on filedocumented in this encounter
--- OUTSIDE RECORDS SUMMARY | 2022-04-29 07:28 | XMS_ITS | Encounter Summary ---
:1980 Author Organization [place] Address [address] [place] [address] Care Team Providers Name Role Phone Unavailable Primary Care Provider Unavailable Encounter Details Date Type Department Care Team Description 01/14/2011 Therapy Visit [place] [facility] [place] P T Thoracic sprain and strain; Athletic Medicine - [address] Fiorella herrera sprain and strain [facility] [address] Therapy [place] [address] [facility] [employer]. 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 documented as of this encounter Progress Notes [...] 75 Rotation: Left: 50 Right: 50 Side [place]: Left: Right: AROM Thoracic: Flex: 75 Ext: [...] Sheet for this information) Short term and extermination supervisor goals: (See Goal Flow Sheet for this [...] Name Priority Date/Time Associated Diagnosis Comme nts [facility] THERAPEUTIC Routine 01/14/2011 7:42 PM Thoracic sprain and EXERCISES CDT strain Lumbar sprain and strain [facility] HOT OR COLD PACKS Routine 01/14/2011 7:42 PM Thoracic spra in and THERAPY CDT strain Lumbar sprain and strain documented in this encounter Visit Diagnoses Diagnosis Sprain of thoracic region Sprain of lumbar region documented in this encounter
--- OUTSIDE RECORDS SUMMARY | 2022-04-29 07:28 | XMS_ITS | Encounter Summary ---
:1980 Author Organization [place] Address [address] [place] [address]. [place] [address] Care Team Providers Name Role Phone Unavailable Primary Care Provider Unavailable Encounter Details Date Type Department Care Team Description 02/27/2010 Emergency room [facility] Osbaldo Gustafson MD 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 HISTORY OF PRESENT ILLNESS: Mukul Reid is a 29-year-old female who said that [...] possible. She was given a referral to [facility] for followup if she has no significant improvement in the next five days. The plan is to have her stay on the anti-inflammatory, andgive her Darvocet at home for pain. The patient was discharged home. DIAGNOSIS: Left knee pain. Electronically signed on 03/13/2010 02:52 by ONEAL GUSTAFSON MD MT: SHON#[id number] Name: MUKUL REID Account: [id number] : 1980 Visit Date: 02/27/2010 Document: [id number] cc: [facility] documented in this encounter Plan of Treatment Not on filedocumented as of this encounter Visit Diagnoses Not on filedocumented in this encounter
--- OUTSIDE RECORDS SUMMARY | 2022-04-29 07:28 | XMS_ITS | Encounter Summary ---
:1980 Author Organization [place] Address [address] [place] [address]. 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 HEMOGLOBIN Routine 04/18/2011 6:30 AM Results f or this CDT procedure are i n the results section. documented in this encounter Results Hemoglobin (04/18/2011 6:30 AM CDT) athologist Signature Hemoglobin 11.7 11.7 - 15.7 [place] g/dL [facility] Specimen Anatomical Collection Method Collection Time Receive d Time (Source) Location / / Volume Laterality 04/18/2011 6:30 AM 1 6:34 CDT AM CDT Juan A Valdovinos PA-C LAB - BLOOD ORDERABLES Performing Organization Address City/State/ZIP Code Phon e Number [facility] [address] [address] [facility] Electrolyte panel (04/18/2011 6:30 AM CDT) P athologist Signature Sodium 139 133 - 144 [place] mmol/L [facility] Potassium 4.2 3.4 - 5.3 [place] mmol/L [facility] Chloride 104 94 - 109 [place] mmol/L [facility] Carbon Dioxide 29 20 - 32 [place] mmol/L [facility] Anion Gap 6 6 - 17 [place] mmol/L [facility] Specimen Anatomical Collection Method Collection Time Receive d Time (Source) Location / / Volume Laterality 04/18/2011 6:30 AM 1 6:34 CDT AM CDT Juan A Valdovinos PA-C LAB - BLOOD ORDERABLES Performing Organization Address City/State/ZIP Code Phon e Number [facility] [address] [address] [facility] documented in this encounter Visit Diagnoses Not on filedocumented in this encounter
--- OUTSIDE RECORDS SUMMARY | 2022-04-29 07:29 | XMS_ITS | Encounter Summary ---
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 HISTORY OF [...] II through XII appear grossly intact. SKIN: [place], warm and dry without rashes. BACK: The [...] Darvocet for pain. Follow up with her Machine Scallop Cutter doctor in the next few days for an appointment. I told her to return here if increased pain, any loss of bowel or bladder function, or foot drop. Electronically signed on 09/26/2008 07:11 by LAUREN SUÁREZ MD MT: SHON#[id number] Name: MUKUL ROBERTS MRN: [id number] Account: [id number] : 1980 Visit Date: 09/13/2008 Document: [id number] FACTURING ADVISOR documented in this encounter Plan of Treatment Not on filedocumented as of this encounter Visit Diagnoses Not on filedocumented in this encounter
--- OUTSIDE RECORDS SUMMARY | 2022-04-29 07:29 | XMS_ITS | Encounter Summary ---
:1980 Author Organization [place] Address [facility]ly [facility] 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
--- OUTSIDE RECORDS SUMMARY | 2022-04-29 07:29 | XMS_ITS | Encounter Summary ---
:1980 Author Organization [place] Address [address] [place] [address]. 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
--- OUTSIDE RECORDS SUMMARY | 2022-04-29 07:29 | XMS_ITS | Encounter Summary ---
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 documented in this encounter Results SONO PELVIS COMPLETE (09/13/2008 6:57 PM DIRECTOR OF SLOT OPERATIONS) Specimen (Source) Anatomical Collection Method Collection Time Re ceived Time Location / / Volume Laterality 09/13/2008 6:57 PM DIRECTOR OF SLOT OPERATIONS Impressions RADIOLOGY RESULTS - 09/14/2008 12:24 PM DIRECTOR OF SLOT OPERATIONS PELVIC ULTRASOUND ??September 13, 2008 6:5 7:00 [...]
--- OUTSIDE RECORDS SUMMARY | 2022-04-29 07:29 | XMS_ITS | Encounter Summary ---
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 CBC WITH PLATELETS STAT 09/13/2008 6:07 PM Res ults for this TIN FLIPPER procedure are i n the results section. HCG QUALITATIVE URINE STAT 09/13/2008 4:25 PM Results for this TIN FLIPPER procedure are i n the results section. ROUTINE UA WITH STAT 09/13/2008 4:25 PM Result s for this MICROSCOPIC TIN FLIPPER procedure are i n the results section. documented in this encounter Results (ABNORMAL) CBC with platelets (09/13/2008 6:07 PM TIN FLIPPER) Analysis Performed At Patho logist Time Signature MCV 88 78 - 100 [place] fl MCH 28.8 26.5 - [place] 33.0 pg MCHC 32.7 31.5 - [place] 36.5 g/dL RDW 13.3 10.0 - [place] 15.0 % WBC 13.1 (H) 4.0 - 11.0 [place] 10e9/L RBC Count 4.80 3.8 - 5.2 [place] 10e12/L Hemoglobin 13.8 11.7 - MIS[place] 15.7 g/dL Hematocrit 42.2 35.0 - MISYS 47.0 % Platelet Count 341 150 - 450 [place] 10e9/L Specimen Anatomical Collection Method Collection Time Receive d Time (Source) Location / / Volume Laterality 09/13/2008 6:07 PM 9 5:48 TIN FLIPPER PM TIN FLIPPER Tarik Hsieh [facility] LAB - BLOOD ORDERABLES Performing Organization Address City/[facility]/ZIP Code Phon e Number MIS[facility] (ABNORMAL) INR AND PTT PANEL (09/13/2008 6:07 PM TIN FLIPPER) athologist Signature INR 0.97 0.86 - 1.14 [place] PTT 38 (H) 22 - 37 sec M[facility]YS Specimen Anatomical Collection Method Collection Time Receive d Time (Source) Location / / Volume Laterality 09/13/2008 6:07 PM 9 5:48 TIN FLIPPER PM TIN FLIPPER Tarik Hsieh [facility] LAB - BLOOD ORDERABLES Performing Organization Address City/[facility] Code Phon e Number MISYS (ABNORMAL) Routine UA with microscopic (09/13/2008 4:25 PM TIN FLIPPER) [facility] gist Method Time Signature Source Midstream MISYS Urine Color Urine Light Yellow M[facility] Appearance Urine Clear MISYS Glucose Urine Negative NEG mg/dL MISYS Bilirubin Urine Negative NEG MISYS Ketones Urine Negative NEG mg/dL MISYS Specific [place] 1.014 1.003 - MISYS Urine 1.035 Blood Urine Small (A) NEG MIS[facility] pH Urine 5.5 5.0 - 7.0 [place] pH Protein Albumin Negative NEG mg/dL MISYS Urine Urobilinogen Normal 0.0 - 2.0 [place] mg/dL mg/dL Nitrite Urine Negative NEG M[facility] Leukocyte Negative NEG [facility] Esterase Urine WBC Urine 1 0 - 2 [place] /HPF RBC Urine 1 0 - 2 [place] /HPF Squamous 6 (H) 0 - 1 [place] Epithelial /HPF /HPF Urine Bacteria Urine Few (A) NEG /HPF M[facility] Mucous Urine Present (A) NEG /LPF M[facility] Specimen Anatomical Collection Method Collection Time Receive d Time (Source) Location / / Volume Laterality 09/13/2008 4:25 PM 9 4:47 TIN FLIPPER PM TIN FLIPPER Tarik Gomez LAB - URINE ORDERABLES Performing Organization Address City/State/ZIP Code Phon e Number MISYS HCG qualitative urine (09/13/2008 4:25 PM TIN FLIPPER) P athologist Signature HCG Qual Urine Negative NEG [facility] Specimen Anatomical Collection Method Collection Time Receive d Time (Source) Location / / Volume Laterality 09/13/2008 4:25 PM 9 4:47 TIN FLIPPER PM TIN FLIPPER Tarik Gomez LAB - URINE ORDERABLES Performing Organization Address City/State/ZIP Code Phon e Number MISYS documented in this encounter Visit Diagnoses Not on filedocumented in this encounter
--- OUTSIDE RECORDS SUMMARY | 2022-04-29 07:29 | XMS_ITS | Encounter Summary ---
:1980 Author Organization [place] Address [address] [place] [address]. [place] [address] Care Team Providers Name Role Phone Unavailable Primary Care Provider Unavailable Encounter Details Date Type Department Care Team Description 01/04/2008 Discharge Summary [facility] Douglas De Paz MD (Gas Station Attendant) 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
--- OUTSIDE RECORDS SUMMARY | 2022-04-29 07:29 | XMS_ITS | Encounter Summary ---
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
--- OUTSIDE RECORDS SUMMARY | 2022-04-29 07:29 | XMS_ITS | Encounter Summary ---
:1980 Author Organization [place] Address [address] [place] [address]. [place] [address] Care Team Providers Name Role Phone Unavailable Primary Care Provider Unavailable Encounter Details Date Type Department Care Team Description 11/16/2006 Admission H&P Yakov Calle MD (Supervisor Assembly Room) [facility] [address] [facility] [address] [place], [place] [address] (Wo rk) Social History Tobacco Use Types Packs/Day Years Used Date Never Assessed Sex Assigned at Date Recorded Female 06/29/2021 12:12 PM AUTOCAD documented as of this encounter Progress Notes Yakov Calle - 11/10/2006 11:15 AM CDT FINAL HISTORY OF PRESENT ILLNESS: Mukul Reid is a 25-year-old 1, para 0, presently at 37 weeks4 days gestation. Estimated gestational age by 12-week ultrasound with estimated date of [id number]/19/07. Patient has a known breech presentation over [...] elects to proceed. PAST OB HISTORY: Current. FORGING MACHINE HAND HISTORY: Patient has a history of irregular [...] SOCIAL HISTORY: Patient and her live in [place]. She does not work outside the home. [...] eric Name: MUKUL REID MRN: [id number] Account: [id number] : 1980 Admitted: [id number] Document: [id number] cc: Nemesio Costa MD documented in this encounter Plan of Treatment Not on filedocumented as of this encounter Visit Diagnoses Not on filedocumented in this encounter
--- OUTSIDE RECORDS SUMMARY | 2022-04-29 07:29 | XMS_ITS | Encounter Summary ---
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
--- OUTSIDE RECORDS SUMMARY | 2022-04-29 07:29 | XMS_ITS | Encounter Summary ---
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 NEISSERIA GONORRHOEAE Routine 09/07/2009 9:31 PM Results for this PCR FORMULATOR COMPOUNDER procedure are i n the results section. CHLAMYDIA TRACHOMATIS Routine 09/07/2009 9:31 PM Results for this PCR FORMULATOR COMPOUNDER procedure are i n the results section. HEMOGLOBIN STAT 09/07/2009 8:55 PM Results f or this FORMULATOR COMPOUNDER procedure are i n the results section. HCG QUALITATIVE URINE STAT 09/07/2009 7:40 PM Results for this FORMULATOR COMPOUNDER procedure are i n the results section. ROUTINE UA WITH STAT 09/07/2009 7:40 PM Result s for this MICROSCOPIC FORMULATOR COMPOUNDER procedure are i n the results section. documented in this encounter Results Wet prep (09/07/2009 9:31 PM FORMULATOR COMPOUNDER) [facility] Method Time Signature Specimen Vagina MISYS Description Micro Report FINAL MISYS Status 09/07/2009 Wet Prep No Trichomonas MISYS seen Comment: No clue cells seen No yeast seen Specimen Anatomical Collection Method Collection Time Receive d Time (Source) Location / / Volume Laterality 09/07/2009 9:31 PM 0 FORMULATOR COMPOUNDER 10:00 PM FORMULATOR COMPOUNDER Physician No Ref-Primary LAB - MICRO GENERAL ORDERABL ES Performing Organization Address [facility] Phon e Number MISYS Chlamydia trachomatis PCR (09/07/2009 9:31 PM FORMULATOR COMPOUNDER) Component Value Ref Test Analysis Performed At [facility] Range Method Time Signature Specimen Cervical MISYS Description Chlamydia Negative for C. MISYS Trachomatis PCR trachomatis rRNA by college tutor mediated amplification. Comment: A negative result by college tutor medi ated amplification does not preclude the presence of C. trachomatis infection be cause results are dependent on proper and adequate collection, absence of inh ibitors, and sufficient rRNA to be detected. Specimen Anatomical Collection Method Collection Time Receive d Time (Source) Location / / Volume Laterality 09/07/2009 9:31 PM 0 FORMULATOR COMPOUNDER 10:00 PM FORMULATOR COMPOUNDER Physician No Ref-Primary LAB - MICRO GENERAL ORDERABL ES Performing Organization Address [facility] Phon e Number MISYS Neisseria gonorrhoeae PCR (09/07/2009 9:31 PM FORMULATOR COMPOUNDER) [facility] Method Time Signature Specimen Cervical MISYS Descrip N Gonorrhea Negative for N. MISYS PCR gonorrhoeae rRNA by college tutor mediated amplification. Comment: A negative result by college tutor medi ated amplification does not preclude the presence of N. gonorrhoeae infection be cause results are dependent on proper and adequate collection, absence of inh ibitors, and sufficient rRNA to be detected. Specimen Anatomical Collection Method Collection Time Receive d Time (Source) Location / / Volume Laterality 09/07/2009 9:31 PM 0 FORMULATOR COMPOUNDER 10:00 PM FORMULATOR COMPOUNDER Physician No Ref-Primary LAB - MICRO GENERAL ORDERABL ES Performing Organization Address [facility] Phon e Number MISYS Hemoglobin (09/07/2009 8:55 PM FORMULATOR COMPOUNDER) athologist Signature Hemoglobin 14.2 11.7 - 15.7 [place] g/dL Specimen Anatomical Collection Method Collection Time Receive d Time (Source) Location / / Volume Laterality 09/07/2009 8:55 PM 0 8:21 FORMULATOR COMPOUNDER PM FORMULATOR COMPOUNDER Cedric Perez MD LAB - BLOOD ORDERABLES Performing Organization Address [facility] Phon e Number MISYS (ABNORMAL) Routine UA with microscopic (09/07/2009 7:40 PM FORMULATOR COMPOUNDER) Patholo gist Method Time Signature Source Midstream MISYS Urine Color Urine Yellow MISYS Appearance Urine Clear MISYS Glucose Urine Negative NEG mg/dL MISYS Bilirubin Urine Negative NEG MISYS Ketones Urine Negative NEG mg/dL MISYS Specific [place] 1.022 1.003 - MISYS Urine 1.035 Blood [...] Volume Laterality 09/07/2009 7:40 PM 0 7:51 FORMULATOR COMPOUNDER PM FORMULATOR COMPOUNDER Cedric Perez MD LAB - URINE ORDERABLES Performing Organization Address City/State/ZIP Code Phon e Number MISYS HCG qualitative urine (09/07/2009 7:40 PM FORMULATOR COMPOUNDER) athologist Signature HCG Qual Urine Negative NEG MISYS Comment: This test provides a presumptive diagno sis of or non-. A confirmed diagnosis should on ly be made by a physician after all clinical and laboratory findings have b een evaluated. Specimen Anatomical Collection Method Collection Time Receive d Time (Source) Location / / Volume Laterality 09/07/2009 7:40 PM 0 7:51 FORMULATOR COMPOUNDER PM FORMULATOR COMPOUNDER Cedric Perez MD LAB - URINE ORDERABLES Performing Organization Address City/State/ZIP Code Phon e Number MISYS documented in this encounter Visit Diagnoses Not on filedocumented in this encounter
--- OUTSIDE RECORDS SUMMARY | 2022-04-29 07:29 | XMS_ITS | Encounter Summary ---
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 HISTORY OF [...] 1-1/2 weeks. She has not seen her DOOR FITTER for this, but she was sick of [...] time and she will followup with her DOOR FITTER by phone tomorrow as she does have [...] MD MT: SHON#[id number] Name: MUKUL REID Account: [id number] : 1980 Visit Date: 09/07/2009 Document: [id number] E MAN documented in this encounter Plan of Treatment Not on filedocumented as of this encounter Visit Diagnoses Not on filedocumented in this encounter
--- OUTSIDE RECORDS SUMMARY | 2022-04-29 07:29 | XMS_ITS | Encounter Summary ---
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 DGB/meagan 01/05/2008 TESTING LAB LOCATION: [address] ??[id number] COLLECTION SITE: Client: [facility] Location: OB (S) Specimen Anatomical Collection Method Collection Time Receive d Time (Source) Location / / Volume Laterality 01/04/2008 8:43 AM 8 3:45 CDT PM CDT Yakov Calle MD LAB - COPATH SPECIAL DIAG OR DERABLES Performing Organization Address [facility] Phon e Number COPATH Hemoglobin (01/04/2008 6:20 AM CDT) P athologist Signature Hemoglobin 13.0 11.7 - 15.7 MISYS g/dL Specimen Anatomical Collection Method Collection Time Receive d Time (Source) Location / / Volume Laterality 01/04/2008 6:20 AM 8 6:08 CDT AM CDT Yakov Calle MD LAB - BLOOD ORDERABLES Performing Organization Address [facility] Phon e Number MISYS ABO/Rh type and [...]
--- OUTSIDE RECORDS SUMMARY | 2022-04-29 07:29 | XMS_ITS | Encounter Summary ---
:1980 Author Organization [place] Address [address] [place] [address] Care Team Providers Name Role Phone Unavailable Primary Care Provider Unavailable Encounter Details Date Type Department Care Team Description 01/07/2008 Historic Results INTERFACED REPORT Shaq Mcgarry MD [facility] PA [address] 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 documented in this encounter Results (ABNORMAL) Hemoglobin (01/07/2008 7:50 AM CDT) P athologist Signature Hemoglobin 10.3 (L) 11.7 - 15.7 MISYS g/dL Specimen (Source) Anatomical Collection Method Collection Time Re ceived Time Location / / Volume Laterality 01/07/2008 7:50 AM 8 CDT Yakov Mcgarry MD LAB - BLOOD ORDERABLES Performing Organization Address City/State/ZIP Code Phon e Number MISYS documented in this encounter Visit Diagnoses Not on filedocumented in this encounter
--- OUTSIDE RECORDS SUMMARY | 2022-04-29 07:29 | XMS_ITS | Encounter Summary ---
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 documented in this encounter Results (ABNORMAL) Hemoglobin (11/19/2006 8:00 AM CDT) P athologist Signature Hemoglobin 9.6 (L) 11.7 - 15.7 MISYS g/dL Specimen (Source) Anatomical Collection Method Collection Time Re ceived Time Location / / Volume Laterality 11/19/2006 8:00 AM 7 CDT Yakov Mcgarry MD LAB - BLOOD ORDERABLES Performing Organization Address City/State/ZIP Code Phon e Number MISYS documented in this encounter Visit Diagnoses Not on filedocumented in this encounter
--- OUTSIDE RECORDS SUMMARY | 2022-04-29 07:29 | XMS_ITS | Encounter Summary ---
:1980 Author Organization [place] Address [address] [place] [address]. 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 Binu Centeno 2nd Industry Segment Specialist: EDWARD Meyer PREOPERATIVE DIAGNOSIS: 1. 27-year-old 2, para 1-0-0-1 at 39 weeks gestation 2. History of section x1, desires repeat 3. Desires permanent sterilization POSTOPERATIVE DIAGNOSIS: 1. 27-year-old 2, para 1-0-0-1 at 39 weeks gestation 2. History of section x1, desires repeat 3. Desires permanent sterilization PROCEDURE: 1. Repeat low transverse section 2. Bilateral partial salpingectomy ANESTHESIA: Spinal Estimated blood loss - 800 cc FINDINGS: Single viable female infant in cephalic presentation, clear amniotic fluid noted. Apgars 8 and 8, weight 8 pounds 10 ounces. There were some adhesions noted, mainly involving the rectus muscles to the fascia. Normal appearing uterus, tubes and ovaries. Complications - none DISPOSITION: The patient was taken to the recovery room SPECIMEN: Portions of right and left fallopian tubes INDICATIONS FOR SURGERY: Mukul Reid is a 27-year-old 2, para 1-0-0-1 who presents at 39 weeks gestation for elective repeat section and bilateral tubal ligation. Her estimated gestational age is by 7 weeks 4 day ultrasound consistent with 20 week ultrasound with estimated date of confinement of 01/10/08. The patient's was complicated by her prior section. This was done in 2006 secondary to breech presentation. She desires repeat section as well as permanent sterilization via bilateral tubal ligation. She understands the risks, benefits and alternativesto an elective repeat section and bilateral tubal ligation versus trial of labor after section. She also is obese. She had an early one hour glucose which she passed at approximately 20 weeks. She had another one hour glucose test done which was elevated at 171. However, she passed a3 hour glucose test thereafter. Finally, the patient has enlarged tonsils. She recently saw ENT. They desire to remove her tonsils. However, given the fact that she was very close to delivering, they decided to defer until after delivery. The plan is for us to contact them postoperatively and they will see her in the hospital. PROCEDURE: The patient was taken to the operating room where spinal anesthesia was found to be adequate. The patient was then prepped and draped in the normal sterile fashion in the dorsal supine position with leftward tilt. Using a scalpel, a Pfannenstiel skin incision was made. This incision was carried down to underlying layer of fascia. The fascia was then nicked in the midline and this incisionwas extended laterally with the Mcintosh scissors. The superior aspect of the fascial incision was then grasped with two Yeny clamps, elevating the rectus muscles which were then dissected bluntly and sharply with cautery. In a similar fashion, the inferior aspect of the fascial incision was grasped with two Yeny clamps, elevating the rectus muscles which were dissected bluntly and sharply with cautery. The rectus muscles were then in the midline, the peritoneum identified and entered bluntly with hemostat. This opening was then extended superiorly and inferiorly with excellent visualization of the bladder. The bladder blade was then inserted and vesicouterine peritoneum identified, grasped with pickups and entered sharply with Metzenbaum scissors. This incision was extended laterally and bladder flap created digitally. Bladder blade was then repositioned. Using a scalpel, a low transverse uterine incision was made. This incision was extended laterally with the bandage scissors. Clear amniotic fluid was noted. The 's head was delivered atraumatically. Nose and mouth were bulb suctioned. The remainder of the was delivered atraumatically. The cord was clamped and cut. The was handed off to waiting nurses. The placenta was removed manually, uterus exteriorized and cleared of all clots and debris. The uterine incision was closed in two layers with 1-0 chromic gut. Excellent hemostasis was noted. The bladder flap was closed with 3-0 chromic in a running fashion. Attention was now turned to the patient's fallopian tubes. The patient's right fallopian tube was grasped with Ed clamp. The window was created in the vascular portion of the mesosalpinx with cautery. Through this opening, free ties were passed and the fallopian tube was tied at two points. The intervening segment was removed with scissors. Excellent hemostasis was noted. The exact same procedure was performed on the patient's left fallopian tube and again excellent hemostasis was noted. Attention was now returned to the uterus. Excellent hemostasis was noted. The uterus was returned to the abdomen. The gutters were irrigated and cleared of all clots and debris. One final look at the uterine incision revealed excellent hemostasis. The peritoneum was grasped with three Mukul clamps and closed with 2-0 Vicryl in a running fashion.The fascial edges and rectus muscles were then examined. Excellent hemostasis was noted. The fascia was tagged in the midline with a single interrupted stitch of 0 Vicryl. Thereafter the fascia was closed from one apex to the midline and then the other apex to the midline with a running stitch of 0 Vicryl. The subq was visualized to have excellent hemostasis. The subq was closed with multiple interrupted sutures of 3-0 plain. The skin was closed with 4-0 Monocryl in a subcuticular fashion. The patient tolerated the procedure well. Sponge, lap and needle counts were reported to me as correct x2. The patient received 2 grams of Ancef after the cord was clamped for antibiotic prophylaxis. The patient was taken to the recovery room in stable condition. Electronically signed on 01/07/2008 17:10 by YAKOV CALLE MD MT: [place] Name: MUKUL REID MRN: [id number] Account: [id number] : 1980 Procedure Date: 01/04/2008 Document: [id number] documented in this encounter Plan of Treatment Not on filedocumented as of this encounter Visit Diagnoses Not on filedocumented in this encounter
--- OUTSIDE RECORDS SUMMARY | 2022-04-29 07:29 | XMS_ITS | Encounter Summary ---
:1980 Author Organization [facility] Address [address] [place] [address]. 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 She is currently doing well. PERSONAL DRIVER HISTORY: Menarche age 14, cycles are irregular. Pap smears normal or negative, most recent Pap smear was on 05/25/2006. She denies a history of STDs. PAST MEDICAL HISTORY: Obesity PAST SURGICAL HISTORY: 1. section in 11/2006. 2.Appendectomy. 3.Cholecystectomy. MEDICATIONS: vitamins. ALLERGIES: CODEINE AND KEFLEX, HOWEVER SHE DOES TOLERATE DARVOCET. SOCIAL HISTORY: The patient is . She, her and daughter live in [place]. The patient is a qeut-po-tuzs mother. She denies alcohol, tobacco or illicit [...] ATIYA Name: MUKUL REID MRN: [id number] Account: [id number] : 1980 Admitted: [id number] Document: [id number] documented in this encounter Plan of Treatment Not on filedocumented as of this encounter Visit Diagnoses Not on filedocumented in this encounter
--- OUTSIDE RECORDS SUMMARY | 2022-04-29 07:29 | XMS_ITS | Encounter Summary ---
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 26-year-old 1 para 0 [...] MD MT: [email or web address] Name: MUKUL REID Account: [id number] : 1980 Procedure Date: 11/16/2006 Document: [id number] documented in this encounter Plan of Treatment Not on filedocumented as of this encounter Visit Diagnoses Not on filedocumented in this encounter
--- OUTSIDE RECORDS SUMMARY | 2022-04-29 07:29 | XMS_ITS | Encounter Summary ---
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
--- OUTSIDE RECORDS SUMMARY | 2022-04-29 07:29 | XMS_ITS | Encounter Summary ---
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 documented in this encounter Results SONO PELVIS COMPLETE (09/07/2009 10:28 PM GENERAL PRACTITIONER) Specimen (Source) Anatomical Collection Method Collection Time Re ceived Time Location / / Volume Laterality 09/07/2009 10:28 PM GENERAL PRACTITIONER Impressions RADIOLOGY RESULTS - 09/08/2009 8:49 AM [...]
--- OUTSIDE RECORDS SUMMARY | 2022-04-29 07:29 | XMS_ITS | Encounter Summary ---
:1980 Author Organization [facility] Address [address] [place] [address]. [place] [address] Care Team Providers Name Role Phone Unavailable Primary Care Provider Unavailable Reason for Visit Reason Comments Urgent Care Laceration puncture wound on the bottom of left foot a couple hours ago. Was cleaning basement and steppe d on a nail that went through the ruber sole of her shoe. 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 documented in this encounter Results LT X-RAY FOOT 3+ VW (03/20/2007 10:24 PM CDT) Anatomical Region Laterality Modality Other Impressions 03/20/2007 10:24 PM CDT REPORT OF OUTSIDE FILMS FROM [facility] ??CLINIC MUKUL REID ?: 82 LEFT [...]
--- OUTSIDE RECORDS SUMMARY | 2022-04-29 07:30 | XMS_ITS | Encounter Summary ---
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 BETA HEMOLYTIC Routine 10/18/2004 7:00 PM Results for this STREP GROUP A SEISMOGRAPH OPERATOR HELPER procedure are in CULTURE the results section. documented in this encounter Results Rapid strep screen (10/18/2004 7:00 PM SEISMOGRAPH OPERATOR HELPER) Component Value [facility] Method Time Signature Specimen Throat MISYS Description Micro Report FINAL [id number] MISYS Status Rapid Strep A NEGATIVE: No MISYS Screen Group A streptococcal antigen detected by immunoassay, await Comment: culture report. Specimen Anatomical Collection Method Collection Time Receive d Time (Source) Location / / Volume Laterality 10/18/2004 7:00 PM 5 7:07 SEISMOGRAPH OPERATOR HELPER PM SEISMOGRAPH OPERATOR HELPER Physician No Ref-Primary LAB - MICRO GENERAL ORDERABL ES Performing Organization Address City/State/ZIP Code Phon e Number MISYS Beta strep group A culture (10/18/2004 7:00 PM SEISMOGRAPH OPERATOR HELPER) Component Value Ref Test Analysis Performed At [facility] [employer] Range Method Time Signature Specimen Throat MISYS Description Culture Micro No beta MISYS hemolytic Streptococcus Group A isolated Micro Report FINAL [id number] MISYS Status Specimen Anatomical Collection Method Collection Time Receive d Time (Source) Location / / Volume Laterality 10/18/2004 7:00 PM 7:32 SEISMOGRAPH OPERATOR HELPER PM SEISMOGRAPH OPERATOR HELPER Physician No Ref-Primary LAB - MICRO GENERAL ORDERABL ES Performing Organization Address City/State/ZIP Code Phon e Number MISYS documented in this encounter Visit Diagnoses Not on filedocumented in this encounter
--- OUTSIDE RECORDS SUMMARY | 2022-04-29 07:30 | XMS_ITS | Encounter Summary ---
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 Costa at [facility], in the next day or two or return here if anything worsens. IMPRESSION: Atypical chest pain, likely pleurisy. _ JS COATES MD MT: ?? Document: [id number] [place], [place] Name: MUKUL DENNIS EMERGENCY ROOM ENCOUNTER Page 2 of 2 LCN: ER DSC: 03/26/2005 [place], [place] Name: MUKUL DENNIS MR#: : Admit Date: [id number] 1980 03/26/2005 Doctor: JS COATES MD EMERGENCY ROOM ENCOUNTER Page 1 of 2 documented in this encounter Plan of Treatment Not on filedocumented as of this encounter Visit Diagnoses Not on filedocumented in this encounter
--- OUTSIDE RECORDS SUMMARY | 2022-04-29 07:30 | XMS_ITS | Encounter Summary ---
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 HISTORY OF PRESENT [...] if not better. CAPRICE SHEPHERD MD MT: [facility] Document: [id number] [place], [place] Name: MUKUL DENNIS EMERGENCY ROOM ENCOUNTER Page 3 of 2 LCN: ER DSC: 10/19/2003 [place], [place] Name: MUKUL DENNIS MR#: : Admit Date: [id number] 1980 10/19/2003 Doctor: CAPRICE SHEPHERD MD EMERGENCY ROOM ENCOUNTER Page 1 of 2 MACEUTICAL PROCESS ENGINEER documented in this encounter Plan of Treatment Not on filedocumented as of this encounter Visit Diagnoses Not on filedocumented in this encounter
--- OUTSIDE RECORDS SUMMARY | 2022-04-29 07:30 | XMS_ITS | Encounter Summary ---
:1980 Author Organization [facility] Address [address] [place] [address] Care Team Providers Name Role Phone Unavailable Primary Care Provider Unavailable Encounter Details Date Type Department Care Team Description 09/15/2004 Historic Results INTERFACED REPORT [place] [address] Social History Tobacco Use Types Packs/Day Years Used Date Never Assessed Sex Assigned at Date Recorded Female 06/29/2021 12:12 PM BUGGY OPERATOR documented as of this encounter Plan of Treatment Not on filedocumented as of this encounter Procedures Procedure Name Priority Date/Time Associated Comments Diagnosis HCG QUALITATIVE URINE Routine 09/15/2004 12:20 Re sults for this AM BUGGY OPERATOR procedure are i n the results section. UA MACROSCOPIC WITH Routine 09/15/2004 12:20 Resu lts for this REFLEX TO MICRO AM BUGGY OPERATOR procedure ar e in the results section. documented in this encounter Results HCG qualitative urine (09/15/2004 12:20 AM BUGGY OPERATOR) athologist Signature HCG Qual Urine Negative NEG MISYS Specimen Anatomical Collection Method Collection Time Receive d Time (Source) Location / / Volume Laterality 09/15/2004 12:20 09/15/2004 AM BUGGY OPERATOR 12:28 AM BUGGY OPERATOR Douglas Duron MD LAB - URINE ORDERABLES Performing Organization Address City/State/ZIP Code Phon e Number MISYS (ABNORMAL) UA macroscopic with reflex to micro (09/15/2004 12:20 AM BUGGY OPERATOR) [facility] gist Method Time Signature Source Midstream MISYS Urine Color Urine Yellow MISYS Appearance Urine Clear MISYS Glucose Urine Negative NEG mg/dL MISYS Bilirubin Urine Negative NEG MISYS Ketones Urine Trace (A) NEG mg/dL MISYS Specific [place] 1.015 1.001 - MISYS Urine 1.035 Blood [...] / Volume Laterality 09/15/2004 12:20 09/15/2004 AM BUGGY OPERATOR 12:28 AM BUGGY OPERATOR Douglas Duron MD LAB - URINE ORDERABLES Performing Organization Address City/State/ZIP Code Phon e Number MISYS documented in this encounter Visit Diagnoses Not on filedocumented in this encounter
--- OUTSIDE RECORDS SUMMARY | 2022-04-29 07:30 | XMS_ITS | Encounter Summary ---
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 Document: [id number] [place], [place] Name: MUKUL DENNIS EMERGENCY ROOM ENCOUNTER Page 2 of 2 LCN: ER DSC: 04/06/2005 [place], [place] Name: MUKUL DENNIS MR#: : Admit Date: -43 1980 04/06/2005 Doctor: WESTON MARTINEZ MD EMERGENCY ROOM ENCOUNTER Page 1 of 2 documented in this encounter Plan of Treatment Not on filedocumented as of this encounter Visit Diagnoses Not on filedocumented in this encounter
--- OUTSIDE RECORDS SUMMARY | 2022-04-29 07:30 | XMS_ITS | Encounter Summary ---
:1980 Author Organization [facility] Address [address] [place] [address]. [place] [address] Care Team Providers Name Role Phone Unavailable Primary Care Provider Unavailable Encounter Details Date Type Department Care Team Description 09/03/2006 Historic Results INTERFACED REPORT Shaq Mcgarry MD [facility] [address] [place], [place] [address] (Wo rk) Social History Tobacco Use Types Packs/Day Years Used Date Never Assessed Sex Assigned at Date Recorded Female 06/29/2021 12:12 PM SUPERVISOR OF GUIDANCE AND TESTING documented as of this encounter Plan of Treatment Not on filedocumented as of this encounter Procedures Procedure Name Priority Date/Time Associated Comments Diagnosis UA MACROSCOPIC WITH Routine 09/03/2006 9:00 PM Re sults for this REFLEX TO MICRO SUPERVISOR OF GUIDANCE AND TESTING procedure ar e in the results section. URINE CULTURE Routine 09/03/2006 9:00 PM Results for this SUPERVISOR OF GUIDANCE AND TESTING procedure are i n the results section. documented in this encounter Results UA macroscopic with reflex to micro (09/03/2006 9:00 PM SUPERVISOR OF GUIDANCE AND TESTING) Component Value Ref Test Analysis Performed At [facility] Range Method Time Signature Source Unspecified MISYS Urine Color Urine Yellow MISYS Appearance Urine Clear MISYS Glucose Urine Negative NEG MISYS mg/dL Bilirubin Urine Negative NEG MISYS Ketones Urine Negative NEG MISYS mg/dL Specific [place] >1.030 1.003 - MISYS Urine 1.035 Blood [...] Volume Laterality 09/03/2006 9:00 PM 7 8:59 SUPERVISOR OF GUIDANCE AND TESTING PM SUPERVISOR OF GUIDANCE AND TESTING Yakov Mcgarry MD LAB - URINE ORDERABLES Performing Organization Address [facility] Phon e Number MISYS Urine culture (09/03/2006 9:00 PM SUPERVISOR OF GUIDANCE AND TESTING) [facility] Method Time Signature Specimen Unspecified MISYS Description Urine Culture Micro 50 to 100,000 MISYS colonies/mL Multiple species present, probable perineal Comment: contamination. Micro Report Status FINAL [id number] MISYS Specimen Anatomical Collection Method Collection Time Receive d Time (Source) Location / / Volume Laterality 09/03/2006 9:00 PM 7 8:59 SUPERVISOR OF GUIDANCE AND TESTING PM SUPERVISOR OF GUIDANCE AND TESTING Yakov Mcgarry MD LAB - MICRO GENERAL ORDERABL ES Performing Organization Address City/[facility] Phon e Number MISYS documented in this encounter Visit Diagnoses Not on filedocumented in this encounter
--- OUTSIDE RECORDS SUMMARY | 2022-04-29 07:30 | XMS_ITS | Encounter Summary ---
:1980 Author Organization [facility] Address [address] [place] [address]. 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
--- OUTSIDE RECORDS SUMMARY | 2022-04-29 07:30 | XMS_ITS | Encounter Summary ---
:1980 Author Organization [place] Address [address] [place] [address] Care Team Providers Name Role Phone Unavailable Primary Care Provider Unavailable Encounter Details Date Type Department Care Team Description 09/14/[address] [facility] MD [place] Results Emergency Physic ians PA [address] [place], [place] [address] (Wo rk) Social History Tobacco Use Types Packs/Day Years Used Date Never Assessed Sex Assigned at Date Recorded Female 06/29/2021 12:12 PM YARN EXAMINER SKEINS documented as of this encounter Plan of Treatment Not on filedocumented as of this encounter Procedures Procedure Name Priority Date/Time Associated Diagnosis Comme nts HC CT THORAX W/O Routine 09/14/2004 11:51 PM Resu lts for this CONT YARN EXAMINER SKEINS procedure are i n the results section. HC CHEST TWO VIEWS, Routine 09/14/2004 10:55 PM R esults for this FRONT/LAT YARN EXAMINER SKEINS procedure are i n the results section. documented in this encounter Results CT SCAN CHEST (09/14/2004 11:51 PM YARN EXAMINER SKEINS) Specimen (Source) Anatomical Collection Method Collection Time Re ceived Time Location / / Volume Laterality 09/14/2004 11:51 PM YARN EXAMINER SKEINS Impressions Pacs, Data Conversion - 09/18/2004 7:[address] OF THE CHEST ? HISTORY: ??This is a 23-year-old female with shortness of breath and a sensation of chest pressure, who present s to the ER for evaluation. ?? TECHNIQUE: ??A chest CT is done with emb olism technique. ?? FINDINGS: ??The pulmonary arterial tree is normal, with no evidence of pulmonary embolism. ??Also, no evidence of axillary, mediastinal or hilar lymphadenopathy. ??There are no pl eural effusions. ??The lungs are clear. ? CONCLUSION: ??Normal chest CT, negative for pulmonary embolism. ??No active disease. ?? These results are preliminarily provided to the ordering ER physician by Dr. Jeramy Cruz at the time of the exa mination. ? Mike Russell MD SPECIAL IMAGING STUDIES CHEST X-RAY 2 VW (09/14/2004 10:55 PM YARN EXAMINER SKEINS) Specimen (Source) Anatomical Collection Method Collection Time Re ceived Time Location / / Volume Laterality 09/14/2004 10:55 PM YARN EXAMINER SKEINS Impressions Pacs, Data Conversion - 09/16/2004 3:40 PM YARN EXAMINER SKEINS CHEST--TWO VIEWS ? HISTORY: ??Chest pain. ? FINDINGS: ??Normal. ?? Mike Russell MD GENERAL IMAGING documented in this encounter Visit Diagnoses Not on filedocumented in this encounter
--- OUTSIDE RECORDS SUMMARY | 2022-04-29 07:30 | XMS_ITS | Encounter Summary ---
:1980 Author Organization [facility] Address [address] [place] [address]. [place] [address] Care Team Providers Name Role Phone Unavailable Primary Care Provider Unavailable Encounter Details Date Type Department Care Team Description 09/17/2004 [facility] [address] [facility] [address] (Wo rk) Social History Tobacco Use Types Packs/Day Years Used Date Never Assessed Sex Assigned at Date Recorded Female 06/29/2021 12:12 PM STAFF COUNSEL documented as of this encounter Plan of Treatment Not on filedocumented as of this encounter Procedures Procedure Name Priority Date/Time Associated Diagnosis Comme nts X-RAY ANKLE >=3 Routine 09/17/2004 2:35 PM Res ults for this VIEWS STAFF COUNSEL procedure are i n the results section. documented in this encounter Results X-RAY ANKLE 3+ VW (09/17/2004 2:35 PM STAFF COUNSEL) Specimen (Source) Anatomical Collection Method Collection Time Re ceived Time Location / / Volume Laterality 09/17/2004 2:35 PM STAFF COUNSEL Impressions Pacs, Data Conversion - 09/20/2004 1:57 PM STAFF COUNSEL RIGHT ANKLE ?? Swelling about the lateral malleolus. ?? The ankle mortise is symmetrical. ??No osseous findings are n oted. ?? Gagan Alicea MD GENERAL IMAGING documented in this encounter Visit Diagnoses Not on filedocumented in this encounter
--- OUTSIDE RECORDS SUMMARY | 2022-04-29 07:30 | XMS_ITS | Encounter Summary ---
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 REVIEW OF SYSTEMS: [...] NORMAN GOLDEN MD 121:4 MT: otis Document: [id number] [place], [place] Name: MUKUL DENNIS EMERGENCY ROOM ENCOUNTER Page 3 of 3 LCN: ER DSC: 04/06/2005 [place], [place] Name: MUKUL DENNIS MR#: : Admit Date: -43 1980 04/06/2005 Doctor: NORMAN GOLDEN MD EMERGENCY ROOM ENCOUNTER Page 1 of 3 documented in this encounter Plan of Treatment Not on filedocumented as of this encounter Visit Diagnoses Not on filedocumented in this encounter
--- OUTSIDE RECORDS SUMMARY | 2022-04-29 07:30 | XMS_ITS | Encounter Summary ---
:1980 Author Organization [place] Address [address] [place] [address] Care Team Providers Name Role Phone Unavailable Primary Care Provider Unavailable Encounter Details Date Type Department Care Team Description 04/18/2005 Operative Report [facility] Dulce Maria Buck, (Product Analyst) Kyle Velasco MD [address] [place] [address] [address] [place], [place] [address] [place], [place] [phone] (Wo rk) Social History Tobacco Use Types Packs/Day Years Used Date Never Assessed Sex Assigned at Date Recorded Female 06/29/2021 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
--- OUTSIDE RECORDS SUMMARY | 2022-04-29 07:30 | XMS_ITS | Encounter Summary ---
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 EMERGENCY DEPARTMENT DIAGNOSIS: 1. Root canal infection #30 with severe dental caries and fractured tooth. 2. Procedure note: Marcaine and lidocaine dental block. CAPRICE WHEATLEY MD MT: rashard Document: [id number] [place], [place] Name: MUKUL DENNIS EMERGENCY ROOM ENCOUNTER Page 2 of 2 LCN: ER DSC: 02/13/2004 [place], [place] Name: MUKUL DENNIS MR#: : Admit Date: 1980 02/13/2004 Doctor: CAPRICE WHEATLEY MD EMERGENCY ROOM ENCOUNTER Page 1 of 2 Caprice Wheatley - 02/13/2004 12:00 AM CDT Report already typed and printed. This one should be deleted. CAPRICE WHEATLEY MD MT: ?? Document: [id number] [place], [place] Name: MUKUL DENNIS EMERGENCY ROOM ENCOUNTER Page 2 of 1 LCN: ER DSC: 02/13/2004 [place], [place] Name: MUKUL DENNIS MR#: : Admit Date: 1980 02/13/2004 Doctor: CAPRICE WHEATLEY MD EMERGENCY ROOM ENCOUNTER Page 1 of 1 documented in this encounter Plan of Treatment Not on filedocumented as of this encounter Visit Diagnoses Not on filedocumented in this encounter
--- OUTSIDE RECORDS SUMMARY | 2022-04-29 07:30 | XMS_ITS | Encounter Summary ---
:1980 Author Organization [facility] Address [address] [place] [address] Care Team Providers Name Role Phone Unavailable Primary Care Provider Unavailable Encounter Details Date Type Department Care Team Description 03/26/2005 Historic Results INTERFACED REPORT Jenny Coates MD EMERGENCY PHYSIC [address] [address] (Wo rk) Social History Tobacco Use Types Packs/Day Years Used Date Never Assessed Sex Assigned at Date Recorded Female 06/29/2021 12:12 PM CONVENTION SERVICES DIRECTOR documented as of this encounter [...] LAB - BLOOD ORDERABLES Performing Organization Address [facility] Phon e Number MISYS Myoglobin (03/26/2005 9:45 AM CDT) P athologist Signature Myoglobin 28 <120 ug/L MISYS Specimen Anatomical Collection Method Collection Time Receive d Time (Source) Location / / Volume Laterality 03/26/2005 9:45 AM 5 9:[address] Coates MD LAB - BLOOD ORDERABLES Performing Organization Address City/[facility] Phon e Number MISYS TSH with free T4 reflex (03/26/2005 9:45 AM CDT) P athologist Signature TSH 3.02 0.4 - 5.0 MISYS mU/L Specimen Anatomical Collection Method Collection Time Receive d Time (Source) Location / / Volume Laterality 03/26/2005 9:45 AM 5 9:[address] Coates MD LAB - BLOOD ORDERABLES Performing Organization Address City/[facility] Code Phon e Number MISYS documented in this encounter Visit Diagnoses Not on filedocumented in this encounter
--- OUTSIDE RECORDS SUMMARY | 2022-04-29 07:30 | XMS_ITS | Encounter Summary ---
:1980 Author Organization [facility] Address [address] [place] [address]. 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 documented in this encounter Results (ABNORMAL) Routine UA with microscopic (08/04/2006 10:10 AM OPERATOR SPECIALIST COMMUNICATIONS) [facility] Method Time Signature Source Midstream MISYS Urine Color Urine Light Yellow MISYS Appearance Urine Clear MISYS Glucose Urine Negative NEG mg/dL MISYS Bilirubin Urine Negative NEG MISYS Ketones Urine Negative NEG mg/dL MISYS Specific [place] 1.006 1.003 - MISYS Urine 1.035 Blood [...] / Volume Laterality 08/04/2006 10:10 08/04/2006 AM OPERATOR SPECIALIST COMMUNICATIONS 10:28 AM OPERATOR SPECIALIST COMMUNICATIONS Paresh Castaneda MD LAB - URINE ORDERABLES Performing Organization Address City/State/ZIP Code Phon e Number MISYS documented in this encounter Visit Diagnoses Not on filedocumented in this encounter
--- OUTSIDE RECORDS SUMMARY | 2022-04-29 07:30 | XMS_ITS | Encounter Summary ---
:1980 Author Organization [facility] Address [address] [place] [address]. [place] [address] Care Team Providers Name Role Phone Unavailable Primary Care Provider Unavailable Encounter Details Date Type Department Care Team Description 12/13/2003 Emergency room Vlad Whittington MD [place] [address] [place], [place] [address] (Wo rk) Social History Tobacco Use Types Packs/Day Years Used Date Never Assessed Sex Assigned at Date Recorded Female 06/29/2021 12:12 PM LPN RN documented as of this encounter ED Notes [...] or concerns. VLAD WHITTINGTON MD MT: Document: [id number] [place], [place] Name: MUKUL DENNIS EMERGENCY ROOM ENCOUNTER Page 2 of 2 LCN: ER DSC: 12/11/2003 [place], [place] Name: MUKUL DENNIS MR#: : Admit Date: [id number] 1980 12/11/2003 Doctor: VLAD WHITTINGTON MD EMERGENCY ROOM ENCOUNTER Page 1 of 2 documented in this encounter Plan of Treatment Not on filedocumented as of this encounter Visit Diagnoses Not on filedocumented in this encounter
--- OUTSIDE RECORDS SUMMARY | 2022-04-29 07:30 | XMS_ITS | Encounter Summary ---
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 encounter Plan of [...] MISYS HCG qualitative (04/04/2005 2:30 AM CDT) [facility] gist Method Time Signature HCG Qualitative Negative NEG MISYS Serum Specimen Anatomical Collection Method Collection Time Receive d Time (Source) Location / / Volume Laterality 04/04/2005 2:30 AM 5 2:02 CDT AM CDT Norman Dominguez MD LAB - BLOOD ORDERABLES Performing Organization Address City/State/ZIP Code Phon e Number MISYS (ABNORMAL) Comprehensive metabolic panel (04/04/2005 2:30 AM CDT) Analysis Performed At [facility] logist Time Signature Sodium 141 [...] Ketones Urine Negative NEG MISYS mg/dL Specific [place] >1.030 1.001 - MISYS Urine 1.035 Blood [...] LAB - URINE ORDERABLES Performing Organization Address [facility] Phon e Number MISYS (ABNORMAL) Microscopic exam urine (04/04/2005 2:25 AM CDT) [facility] Signature WBC Urine O - [...] LAB - URINE ORDERABLES Performing Organization Address City/[facility] Phon e Number MISYS documented in this encounter Visit Diagnoses Not on filedocumented in this encounter
--- OUTSIDE RECORDS SUMMARY | 2022-04-29 07:30 | XMS_ITS | Encounter Summary ---
:1980 Author Organization [place] Address [address] [place] [address]. 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 documented in this encounter Results [employer] (08/04/2006 12:36 PM WELDING MACHINE OPERATOR GAS METAL ARC) Specimen (Source) Anatomical Collection Method Collection Time Re ceived Time Location / / Volume Laterality 08/04/2006 12:36 PM WELDING MACHINE OPERATOR GAS METAL ARC Impressions RADIOLOGY RESULTS - 08/04/2006 12:58 PM WELDING MACHINE OPERATOR GAS METAL ARC EXAM: ??US OB LIMITED HISTORY: ?right lower [...]
--- OUTSIDE RECORDS SUMMARY | 2022-04-29 07:30 | XMS_ITS | Encounter Summary ---
:1980 Author Organization [place] Address [address] [place] [address]. 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 Document: [id number] [place], [place] Name: MUKUL DENNIS EMERGENCY ROOM ENCOUNTER Page 2 of 2 LCN: ER DSC: 05/29/2004 [place], [place] Name: MUKUL DENNIS MR#: : Admit Date: [id number] 1980 05/29/2004 Doctor: VLAD WHITTINGTON MD EMERGENCY ROOM ENCOUNTER Page 1 of 2 documented in this encounter Plan of Treatment Not on filedocumented as of this encounter Visit Diagnoses Not on filedocumented in this encounter
--- OUTSIDE RECORDS SUMMARY | 2022-04-29 07:30 | XMS_ITS | Encounter Summary ---
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 WESTON MARTINEZ MD MT: ksg Document: [id number] [place], [place] Name: MUKUL DENNIS EMERGENCY ROOM ENCOUNTER Page 2 of 2 LCN: ER DSC: 11/23/2004 [place], [place] Name: MUKUL DENNIS MR#: : Admit Date: -43 1980 11/23/2004 Doctor: WESTON MARTINEZ MD EMERGENCY ROOM ENCOUNTER Page 1 of 2 documented in this encounter Plan of Treatment Not on filedocumented as of this encounter Visit Diagnoses Not on filedocumented in this encounter
--- OUTSIDE RECORDS SUMMARY | 2022-04-29 07:30 | XMS_ITS | Encounter Summary ---
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 B TYPE NATRIURETIC Routine 09/14/2004 10:40 Resul ts for this PEPTIDE PM STILL TENDER procedure are i n the results section. HEMOGRAM DIFFERENTIAL Routine 09/14/2004 10:40 Re sults for this AND PLATELET PM STILL TENDER procedure are i n the results section. PLATELET COUNT Routine 09/14/2004 10:40 Results f or this PM STILL TENDER procedure are i n the results section. MYOGLOBIN Routine 09/14/2004 10:40 Results for this PM STILL TENDER procedure are i n the results section. D DIMER QUANTITATIVE Routine 09/14/2004 10:40 Res ults for this PM STILL TENDER procedure are i n the results section. BASIC METABOLIC PANEL Routine 09/14/2004 10:40 Re sults for this PM STILL TENDER procedure are i n the results section. documented in this encounter Results Basic metabolic panel (09/14/2004 10:40 PM STILL TENDER) P athologist Signature Sodium 143 133 - [...] / Volume Laterality 09/14/2004 10:40 09/14/2004 PM STILL TENDER 10:49 PM STILL TENDER Douglas Duron MD LAB - BLOOD ORDERABLES Performing Organization Address City/State/ZIP Code Phon e Number MISYS D dimer quantitative (09/14/2004 10:40 PM STILL TENDER) P athologist Signature D Dimer <0.2 0.0 - 0.50 MISYS ugFEU/mL Specimen Anatomical Collection Method Collection Time Receive d Time (Source) Location / / Volume Laterality 09/14/2004 10:40 09/14/2004 PM STILL TENDER 10:49 PM STILL TENDER Douglas Duron MD LAB - BLOOD ORDERABLES Performing Organization Address City/State/ZIP Code Phon e Number MISYS (ABNORMAL) Hemogram differential and platelet (09/14/2004 10:40 PM STILL TENDER) Patholo gist Method Time Signature MCV 87 [...] / Volume Laterality 09/14/2004 10:40 09/14/2004 PM STILL TENDER 10:49 PM STILL TENDER Douglas Duron MD LAB - BLOOD ORDERABLES Performing Organization Address City/State/ZIP Code Phon e Number MISYS Myoglobin (09/14/2004 10:40 PM STILL TENDER) athologist Signature Myoglobin 24 <120 ug/L MISYS Specimen Anatomical Collection Method Collection Time Receive d Time (Source) Location / / Volume Laterality 09/14/2004 10:40 09/14/2004 PM STILL TENDER 10:49 PM STILL TENDER Douglas Duron MD LAB - BLOOD ORDERABLES Performing Organization Address City/[facility]/ZIP Code Phon e Number MISYS Troponin I (09/14/2004 10:40 PM STILL TENDER) P athologist Signature Troponin I <0.07 0.00 - 0.40 MISYS ug/L Specimen Anatomical Collection Method Collection Time Receive d Time (Source) Location / / Volume Laterality 09/14/2004 10:40 09/14/2004 PM STILL TENDER 10:49 PM STILL TENDER Douglas Duron MD LAB - BLOOD ORDERABLES Performing Organization Address City/State/ZIP Code Phon e Number MISYS Platelet count (09/14/2004 10:40 PM STILL TENDER) P athologist Signature Platelet Count 354 150 - 450 MISYS 10e9/L Specimen Anatomical Collection Method Collection Time Receive d Time (Source) Location / / Volume Laterality 09/14/2004 10:40 09/14/2004 PM STILL TENDER 10:57 PM STILL TENDER Douglas Duron MD LAB - BLOOD ORDERABLES Performing Organization Address City/State/ZIP Code Phon e Number MISYS Brain naturiuretic peptide nt pro (09/14/2004 10:40 PM STILL TENDER) P athologist Signature BNP 10 5 - 100 MISYS pg/mL Specimen Anatomical Collection Method Collection Time Receive d Time (Source) Location / / Volume Laterality 09/14/2004 10:40 09/14/2004 PM STILL TENDER 11:22 PM STILL TENDER Douglas Duron MD LAB - BLOOD ORDERABLES Performing Organization Address City/State/ZIP Code Phon e Number MISYS documented in this encounter Visit Diagnoses Not on filedocumented in this encounter
--- OUTSIDE RECORDS SUMMARY | 2022-04-29 07:30 | XMS_ITS | Encounter Summary ---
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 documented in this encounter Results EKG 12 LEAD (09/14/2004 10:20 PM CHILI POWDER MIXER) [facility] Method Time Signature Ventricular Rate 96 BPM RADIOLOGY RESULTS Atrial Rate 96 BPM RADIOLOGY RESULTS [place] Interval 148 ms RADIOLOGY RESULTS QRS Duration 86 ms RADIOLOGY RESULTS QT 346 ms RADIOLOGY RESULTS QTc 437 ms RADIOLOGY RESULTS P [place] 60 degrees RADIOLOGY RESULTS R AXIS 65 degrees RADIOLOGY RESULTS T [place] 59 degrees RADIOLOGY RESULTS Interpretation SINUS RHYTHM RADIOLOGY ECG NORMAL ECG RESULTS NO PREVIOUS ECGS AVAILABLE Specimen Anatomical Collection Method Collection Time Receive d Time (Source) Location / / Volume Laterality 09/14/2004 10:20 09/15/2004 3:18 PM CHILI POWDER MIXER PM CHILI POWDER MIXER Transcripton Interface ECG ORDERABLES Performing Organization Address City/State/ZIP Code Phon e Number RADIOLOGY RESULTS documented in this encounter Visit Diagnoses Not on filedocumented in this encounter Care Teams Vascular Technologist Sonographer Relationship Specialty Start Date End Date Nemesio Costa MD PCP - General 05/30/11 03/22/20 documented as of this encounter
--- OUTSIDE RECORDS SUMMARY | 2022-04-29 07:30 | XMS_ITS | Encounter Summary ---
:1980 Author Organization [place] Address [address] [place] [address]. 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
--- OUTSIDE RECORDS SUMMARY | 2022-04-29 07:30 | XMS_ITS | Encounter Summary ---
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
--- OUTSIDE RECORDS SUMMARY | 2022-04-29 07:30 | XMS_ITS | Encounter Summary ---
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 documented in this encounter Results CT SCAN OF ABDOMEN CONTRAST (02/04/2005 6:51 PM CDT) Specimen (Source) Anatomical Collection Method Collection Time Re ceived Time Location / / Volume Laterality 02/04/2005 6:51 PM CDT Impressions RADIOLOGY RESULTS - 02/11/2005 8:[address] ABDOMEN & PELVIS WITH CONTRAST - 02/04 INDICATION: Right lower quadrant pain. E levated white count. Rule out appendicitis or bowel obstruction. ?? TECHNIQUE: CT abdomen and pelvis with or al and IV contrast. FINDINGS: The upper abdominal organs are negative. The mid and distal aspect of the appendix are slightly osman stinct. The appendix is not significantly large and there is no ericka cent soft tissue stranding, however, very early appendicitis is diff icult to completely exclude. Recommend clinical correlation. At a min imum, close clinical follow up is recommended. 3.4 cm right adnexal cyst. No free fluid or other acute findings in the abdomen or pelvis. ?? IMPRESSION: ? 1. ?? 3.5 cm right ovarian cyst. ? 2. ?? The mid and distal appendix ?are slightly indistinct though there is no adjacent soft tissue stranding. ?Very early appendicitis cannot be completely exclud ed. Correlate with ? clinical findings. At a minimum, close c linical follow up and possible ?repeat CT if symptoms p ersist may be helpful. ? 3. ?? Findings of final report ?called to Dr. Nemesio Costa and to Dr. Morales in the ER as the sligh t ?indistinctness of the mid and distal appendix was not noted on the preliminary ?report. Very early or developing appendicitis co uld not be completely ? excluded, and therefore, clinical correl ation and at a minimum close ? clinical follow up is warranted. Nemesio Costa MD SPECIAL IMAGING STUDIES Performing Organization Address City/State/ZIP Code Phon e Number RADIOLOGY RESULTS documented in this encounter Visit Diagnoses Not on filedocumented in this encounter
--- OUTSIDE RECORDS SUMMARY | 2022-04-29 07:30 | XMS_ITS | Encounter Summary ---
:1980 Author Organization [facility] Address [address] [place] [address] Care Team Providers Name Role Phone Unavailable Primary Care Provider Unavailable Encounter Details Date Type Department Care Team Description 04/18/2005 Historic Results [facility] Dominique Buck MD 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 documented in this encounter Results Histopathology (04/18/2005 12:00 AM CDT) Component Value Ref Test Analysis Performed At [facility] Range Method Time Signature Copath Report CASE: [id number] ^ COPATH Patient Name: MUKUL DENNIS MR#: [id number] Specimen #: [id number] Collected: 04/18/2005 Received: 04/18/2005 Reported: 04/21/2005 16:28 Ordering Phy(s): DULCE MARIA BUCK Additional Phy(s): GAVIOTA FRANCO SPECIMEN(S): A: Appendix B: Gallbladder FINAL DIAGNOSIS: A. ?Appendix - No pathologic changes seen. B. ?Gallbladder - Mild chronic cholecystitis, cholesterolosis, and cholelithiasis. Electronically signed out by: Nahid Ogden M.D. CLINICAL HISTORY: Cholecystitis. GROSS: A. ?The specimen, labeled appendix, consists of an appendix measuring 7.5 cm in length and from about 0.5 to 0.6 cm in f airly uniform diameter. ??There is attached mesoappendix with some ecchymotic foci. ??The outer serosal surfaces of the appendix are luciano h and show no lesions or exudate. ??The cut surfaces show some hemorrhage in the middle and distal portion and otherwise are unremarkable. ??Represe ntative sections are embedded in two cassettes. B. ?The specimen, labeled gallbladder, consis ts of a small gallbladder measuring 5.7 cm in length by 2.0 cm in diameter . ??The serosal surfaces are smooth and glistening. ??ON opening, th ere is some viscous bile present and multiple small fausto green calculi from about 1 to 2.5 mm. ??There is slight yellowish streaking of the muco sa to otherwise unremarkable. ??Internal Security Manager sections are embedd ed in one cassette. ??RUTH/shashi MICROSCOPIC: A. ?Sections of appendix show essentially anthony l histologic structure. ??The luminal mucosa is intact with normal size l umen containing some dense fecal material. ??There is no inflamma tion in the wall or on the serosal surface. B. ?Sections of gallbladder show changes of mil d chronic cholecystitis. ??The mucosal villi show minimal blunting. ?? They are sometimes expanded by lipid-laden histiocytes. ??There is ju st slight focal chronic inflammatory cell infiltration in the wall. ?? Early Aschoff-Rokitanskysinus formation is suggested. RUTH/lilli 04-21-05 TESTING LAB LOCATION: [facility] [address], [place] ??[id number] COLLECTION SITE: Client: [facility] Location: SDS (R) Specimen (Source) Anatomical Collection Method Collection Time Re ceived Time Location / / Volume Laterality 04/18/2005 04/21/2005 4:28 PM CDT Dulce Maria Buck MD LAB - COPATH SPECIAL DIAG OR DERABLES Performing Organization Address City/State/ZIP Code Phon e Number COPATH documented in this encounter Visit Diagnoses Not on filedocumented in this encounter
--- OUTSIDE RECORDS SUMMARY | 2022-04-29 07:30 | XMS_ITS | Encounter Summary ---
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 I will have her take [id number] Ibuprofen and Tylenol, as well as a limited number of Percocet on a prn basis. I will have her follow-up with her primary care physician on a one-week basis prn. Returning if she has increasing chest pain, shortness of breath. DIAGNOSIS: Pleurisy. PLAN: As above. DANIELE RODRIGUEZ MD MT: ksg Document: [id number] [place], [place] Name: MUKUL DENNIS EMERGENCY ROOM ENCOUNTER Page 3 of 2 LCN: ER DSC: 09/14/2004 [place], [place] Name: MUKUL DENNIS MR#: : Admit Date: -43 1980 09/14/2004 Doctor: DANIELE RODRIGUEZ MD EMERGENCY ROOM ENCOUNTER Page 1 of 2 ER INSERTING MACHINE OPERATOR documented in this encounter Plan of Treatment Not on filedocumented as of this encounter Visit Diagnoses Not on filedocumented in this encounter
--- OUTSIDE RECORDS SUMMARY | 2022-04-29 07:30 | XMS_ITS | Encounter Summary ---
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 Phon e Number MISYS Lipase (04/06/2005 6:50 AM CDT) P athologist Signature Lipase 71 20 - 250 U/L MISYS Specimen Anatomical Collection Method Collection Time Receive d Time (Source) Location / / Volume Laterality 04/06/2005 6:50 AM 5 8:34 CDT AM CDT Nemesio Costa MD LAB - BLOOD ORDERABLES Performing Organization Address [facility] Phon e Number MISYS Platelet count (04/06/2005 6:50 AM CDT) P athologist Signature Platelet Count 277 150 - 450 MISYS 10e9/L Specimen Anatomical Collection Method Collection Time Receive d Time (Source) Location / / Volume Laterality 04/06/2005 6:50 AM 5 9:02 CDT AM CDT Nemesio Costa MD LAB - BLOOD ORDERABLES Performing Organization Address City/[facility] Phon e Number MISYS documented in this encounter Visit Diagnoses Not on filedocumented in this encounter
--- OUTSIDE RECORDS SUMMARY | 2022-04-29 07:30 | XMS_ITS | Encounter Summary ---
:1980 Author Organization [place] Address [address] [place] [address] Care Team Providers Name Role Phone Unavailable Primary Care Provider Unavailable Encounter Details Date Type Department Care Team Description 03/26/[address] 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
--- OUTSIDE RECORDS SUMMARY | 2022-04-29 07:30 | XMS_ITS | Encounter Summary ---
:1980 Author Organization [place] Address [address] [place] [address]. 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 HISTORY OF [...] The patient is single and lives in [place]. PHYSICAL EXAMINATION: The patient is alert and [...] sprain. GAGAN ALICEA MD 101:0 MT: Document: [id number] [place], [place] Name: MUKUL DENNIS EMERGENCY ROOM ENCOUNTER Page 3 of 2 LCN: ER DSC: 09/17/2004 [place], [place] Name: MUKUL DENNIS MR#: : Admit Date: [id number] 1980 09/17/2004 Doctor: GAGAN ALICEA MD EMERGENCY ROOM ENCOUNTER Page 1 of 2 documented in this encounter Plan of Treatment Not on filedocumented as of this encounter Visit Diagnoses Not on filedocumented in this encounter
--- OUTSIDE RECORDS SUMMARY | 2022-04-29 07:30 | XMS_ITS | Encounter Summary ---
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 HISTORY OF PRESENT [...] Laryngitis. 3. Sore throat. LOREN WEBBER MD [place]: [facility] Document: [id number] [place], [place] Name: MUKUL DENNIS EMERGENCY ROOM ENCOUNTER Page 2 of 2 LCN: ER DSC: 10/18/2004 [place], [place] Name: MUKUL DENNIS MR#: : Admit Date: -43 1980 10/18/2004 Doctor: LOREN WEBBER MD EMERGENCY ROOM ENCOUNTER Page 1 of 2 S AND SERVICE ASSOCIATE documented in this encounter Plan of Treatment Not on filedocumented as of this encounter Visit Diagnoses Not on filedocumented in this encounter
--- OUTSIDE RECORDS SUMMARY | 2022-04-29 07:30 | XMS_ITS | Encounter Summary ---
:1980 Author Organization [place] Address [address] [place] [address]. [place] [address] Care Team Providers Name Role Phone Unavailable Primary Care Provider Unavailable Encounter Details Date Type Department Care Team Description 05/01/2005 Emergency room Luciano Anderson MD Social History Tobacco Use Types Packs/Day Years Used Date Never Assessed Sex Assigned at Date Recorded Female 06/29/2021 12:12 PM CASE AIDE documented as of this encounter Progress Notes [...] today. LUCIANO ANDERSON MD MT: nr Document: [id number] [place], [place] Name: MUKUL DENNIS EMERGENCY ROOM ENCOUNTER Page 2 of 2 LCN: ER DSC: 04/29/2005 [place], [place] Name: MUKUL DENNIS MR#: : Admit Date: -43 1980 04/29/2005 Doctor: LUCIANO ANDERSON MD EMERGENCY ROOM ENCOUNTER Page 1 of 2 documented in this encounter Plan of Treatment Not on filedocumented as of this encounter Visit Diagnoses Not on filedocumented in this encounter
--- OUTSIDE RECORDS SUMMARY | 2022-04-29 07:30 | XMS_ITS | Encounter Summary ---
:1980 Author Organization [facility] Address [address] [place] [address]. 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
--- OUTSIDE RECORDS SUMMARY | 2022-04-29 07:30 | XMS_ITS | Encounter Summary ---
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 Range Method Time Signature Specimen Throat MISYS Description Micro Report FINAL [id number] MISYS Status Rapid Strep A POSITIVE: Group [...]
--- OUTSIDE RECORDS SUMMARY | 2022-04-29 07:31 | XMS_ITS | Encounter Summary ---
:1980 Author Organization [facility] Address [address] [place] [address] Care Team Providers Name Role Phone Matheus Feliciano M.D. Primary Care Provider [phone] Reason for Visit Reason Comments Med Refill Encounter Details Date Type Department Care Team Description 04/26/2022 Refill Department of Family Medicine, Brigette Cardona APRN, Med Refill [facility], [address] [address] Social History Tobacco Use Types Packs/Day [...] do you attend uatsdin or Never 2021 alevism services? 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 PCP - General Family Medicine 01/09/[address] [place] [address] PANKAJ Velez [phone] documented as of this encounter
--- OUTSIDE RECORDS SUMMARY | 2022-04-29 07:31 | XMS_ITS | Clinical Summary ---
:1980 Author Organization [facility] Address [address] [place] [address] Care Team Providers Name Role Phone Matheus Feliciano M.D. Primary Care Provider [phone] Source Comments Patient records contain information from all sites at [facility]. For routine questions regarding patient records, call [phone] during business hours, M-F 8:00 AM - 5:00 PM Central Time. Record requests for emergency care only can be directed to [phone] at any time.[facility] Allergies Active Allergy Reactions Severity Noted Date Comments Cephalexin Itching, Rash 07/13/2014 Patient has to lerated penicillin and amoxicillin. Medications Medication Sig Dispensed Refills Start Date End Date Status cetirizine (ZyrTEC) Take 1 tablet by 0 11/10/2016 Active 10 mg tablet mouth 2 (two) times a day. cholecalciferol Take 2,000 Units 0 Active (VITAMIN D3) 50 mcg by mouth daily. (2,000 Unit) tablet omega-3 fatty Take 1 g by mouth 0 Active acids-fish oil daily. 1200 mg 300-1,000 mg capsule promethazine Take 25 mg by 0 05/14/2014 Ac tive (PHENERGAN) 25 mg mouth as needed tablet for nausea. MULTIVITAMIN ORAL Take 1 tablet by 0 Active mouth daily. fluticasone (FLONASE) Administer 2 16 g 11 08/26/2018 Active 50 mcg/actuation sprays into each nasal spray nostril daily. lidocaine (LIDODERM) Place 1 patch on 90 patch 3 08/26/2018 Active 5 % the skin daily. Apply to intact skin and remove patch after a maximum of 12 hr of application within a 24 hr period capsaicin (ARTHRITIS Apply 1 42.5 g 2 02/17/2019 Active PAIN RELIEF,CAPSAIC,) application 0.1 % cream topically 3 (three) times a day as needed (Knee pain). ondansetron ODT Take 1 tablet (4 20 tablet 1 01/23/2021 Active (ZOFRAN-ODT) 4 mg mg total) by disintegrating tablet mouth as needed for nausea. ketoconazole Apply 1 60 g 3 06/10/2021 Active (NIZORAL) 2 % application creamIndications: topically 2 (two) Pannus Abdominal times a day. Apply to abdominal wall. ZOLMitriptan (ZOMIG) Take 1 tablet (5 10 tablet 1 06/24/2021 Active 5 mg tablet mg total) by mouth as needed for migraine. SUMAtriptan (IMITREX) Take 1 tablet 10 tablet 1 06/24/2021 Active 100 mg tablet (100 mg total) by mouth as needed for migraine. gabapentin TAKE 3 810 capsule 3 07/08/2021 Active (NEURONTIN) 300 mg CAPSULES(900 MG) capsule BY MOUTH THREE TIMES DAILY levETIRAcetam TAKE 1 TABLET(500 180 tablet 3 07/08/2021 Active (KEPPRA) 500 mg MG) BY MOUTH tablet TWICE DAILY pantoprazole Take 20 mg by 0 07/03/2021 Ac tive (PROTONIX) 20 mg EC mouth 2 (two) tablet times a day. calcium carbonate Take 500 mg of 0 Active (OS-MARCELLUS) 1,250 mg calcium by mouth (500 mg calcium) daily. tablet enoxaparin (LOVENOX) Inject 0.4 mL (40 2.8 mL 0 10/07/2021 Active 40 mg/0.4 mL mg total) under injection the skin daily for 7 days. atomoxetine TAKE ONE CAPSULE 90 capsule 3 12/02/2021 Active (STRATTERA) 80 mg BY MOUTH EVERY capsule DAY ProAir HFA 90 INHALE 2 PUFFS BY 0 12/13/2021 Active mcg/actuation inhaler MOUTH EVERY 4 HOURS NEEDED FOR COUGH diclofenac sodium Apply 4 g 350 g 3 12/27/2021 A ctive (VOLTAREN) 1 % topically 4 gelIndications: Pain (four) times a Low Back Unspecified day. Apply to low back. predniSONE Take 1 tablet (20 14 tablet 0 12/27/2021 Active (DELTASONE) 20 mg mg total) by tabletIndications: mouth daily. Pain Low Back Unspecified Additional Information Patient not taking. Reported on 02/03/2022 [id number] Administer 2 drops into 10 mL 0 [...] not taking. Reported on 02/03/2022 trospium (SANCTURA) Take 1 tablet (20 180 tablet 3 01/29/2022 01/29/2023 Active 20 mg tablet mg total) by mouth 2 (two) times a day before breakfast and dinner. albuterol 2.5 mg /3 Inhale 2.5 mg. 0 01/22/2022 Active mL nebulizer solution cyclobenzaprine TAKE 1 TABLET(10 30 tablet 1 02/26/2022 Active (FLEXERIL) 10 mg MG) BY MOUTH AT tabletIndications: BEDTIME NEEDED Pain Low Back FOR MUSCLE SPASMS Unspecified traZODone (DESYREL) TAKE 1 TABLET(50 90 tablet 3 02/26/2022 Active 50 mg tablet MG) BY MOUTH AT BEDTIME NEEDED FOR SLEEP busPIRone (BUSPAR) TAKE 1 TABLET(30 180 tablet 3 04/01/2022 Active 30 mg tablet MG) BY MOUTH TWICE DAILY cyanocobalamin INJECT 1 ML 3 mL 3 04/28/2022 Ac tive (VITAMIN B12) 1,000 INTRAMUSCULARLY mcg/mL injection EVERY MONTH cyanocobalamin INJECT 1ML 3 mL 3 03/29/2021 04/28/2022 Di scontinued (VITAMIN B12) 1,000 INTRAMUSCULARLY mcg/mL injection EVERY MONTH busPIRone (BUSPAR) TAKE 1 TABLET(30 180 tablet 3 05/22/2021 Discontinued 30 mg tablet MG) BY MOUTH TWICE DAILY Active Problems Problem Noted Date 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 Added automatically from request for jose montoya [id number] History Of Falling 01/10/2020 Epilepsy Seizure Not [...] Encounters Date Type Specialty Care Team Description 04/26/2022 Refill Family Medicine Brigette Cardona, Med Refill SUBASSEMBLIES WIRER, C.N.P. 04/15/2022 Orders Only Jodie, Screening Mammo anni Moss Breast Cancer M.B.B.SRafal, M.D. 03/29/2022 Refill Family Medicine Jodie, Med Refill Matheus Moss, M.B.B.SRafal, M.DRafal 02/26/2022 Orders Only Pharmacy [facility] Terry SalasB.SRafal, [place] 02/24/2022 Refill [facility], Med Refill Terry SalasB.SRafal, Ana 02/11/2022 [facility], Medication P roblem Communication Minh Salas.B.Chris, Ana 02/11/2022 [facility] Terry SalasB.Chris, Ana 02/03/2022 Comprehensive Visit Otorhinolaryngology Dina, Trista Dysfunction Eustachian Tube Bilateral (Primary Dx); Isaac Malhotra Pain Ear Bilate ral 01/29/2022 [facility] Med Refill Prabhu Salas, Ana 01/27/2022 Clinical Pharmacy Jacob Cardona Rx Prior Communication Authorization (PA DENIED ZOLMITRI PTAN 5 MG TAB) 01/27/2022 Orders Only Pharmacy Jacob Cardona from Last 3 Months Immunizations Name Administration [...] do you attend protestant or Never 2021 synagogue services? 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 Last Filed Vital Signs Vital Sign Reading Time Taken Comments Blood Pressure 109/75 01/08/2022 11:55 AM CDT Pulse 80 01/08/2022 11:55 AM CDT Temperature 36 ??C (96.8 ??F) 01/08/2022 11:55 AM CDT Respiratory Rate 16 10/08/2021 10:45 AM DEXTRINE MIXER Oxygen Saturation 100% 10/08/2021 10:45 AM DEXTRINE MIXER Inhaled Oxygen Concentration - - Weight 72 kg (158 lb 11.7 oz) 01/08/2022 11:55 AM CDT Height 163.4 cm (5' 4.33) 11/01/2021 12:58 PM CDT Body Mass Index 26.97 11/01/2021 12:58 PM CDT Plan of Treatment Health Maintenance Due Date Last Done Comments HIV Screening 1980 Hepatitis B Vaccines (1 of 1981 3 - 3-dose series) Hepatitis C Screening 1980 Mammogram 1980 COVID-19 Vaccine (4 - 09/11/2021 07/17/2021, 12/18/2020, Booster for Pfizer series) 11/22/2020 Influenza Vaccine (#1) 2022 10/07/2021, 07/17/2021, 06/21/2020, Additional history exists Lipid (Cholesterol) 11/17/2023 11/16/2018 Screening DTaP,Tdap,and Td Vaccines 11/03/2027 11/02/2017, 03/20/2007 (3 - Td or Tdap) Depression Screening Completed 12/27/2021 (Annual PHQ-2) Pneumococcal vaccine (0-64 Aged Out No lo nger eligible years) based on patient 's age to complete this topic Insurance Payer Benefit Plan / Subscriber ID Effective Phone Address T ype Group Dates [facility] [id number] 2018-Prese [address] Medicaid [facility] [address] [facility] [id number] Care Teams Ratoprinter Relationship Specialty Start Date End Date Matheus Feliciano M.BRafalBRafalSRafal, M.D. PCP - General Family Medicine 01/09/[address] [place] [address], [place]ANKAJ [phone]
--- OUTSIDE RECORDS SUMMARY | 2022-04-29 07:32 | XMS_ITS | Encounter Summary ---
:1980 Author Organization [facility] Address [address] [place] [address] Care Team Providers Name Role Phone Matheus Feliciano M.D. Primary Care Provider [phone] Reason for Visit Reason Comments Med Refill Encounter Details Date Type Department Care Team Description 02/24/2022 Refill Department of Family Medicine, Matheus Feliciano I., Med Refill [facility], in Ralph Pelletier [place], [place] 300 [facility] 300 [place] [address] [place] [address] [phone] Social History Tobacco Use Types Packs/Day Years [...] do you attend mormon or Never 2021 roman catholic services? 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 PCP - General Family Medicine 01/09/[address] [place] [address] [place] [address] documented as of this encounter
--- OUTSIDE RECORDS SUMMARY | 2022-04-29 07:32 | XMS_ITS | Encounter Summary ---
:1980 Author Organization [facility] Address [address] [place] [address] Care Team Providers Name Role Phone Matheus Feliciano M.D. Primary Care Provider [phone] Reason for Visit Reason Comments Back Pain Low back pain has increased over time Appointment Request (Routine) - Closed Specialty Diagnoses / Procedures Referred By Contact Refer red To Contact Family Medicine Referral ID Status Reason Start Date Expiration Date Visits Requ ested Visits Authorized [id number] Closed 12/20/2021 12/20/2022 1 1 Encounter Details Date Type Department Care Team Description 12/27/2021 Office Visit Department of Family Matheus Feliciano Pain Low Back Medicine, Prabhu Parmar, Sb suh (Primary Clinic, in [place] Dx) [place] 300 [facility] 300 [place] [phone] Social History Tobacco Use Types Packs/Day Years [...] do you attend baptism or Never 2021 adventism services? 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 PCP - General Family Medicine 01/09/[address] [place] [address] Faye MeadePANKAJ woody [phone] documented as of this encounter
--- OUTSIDE RECORDS SUMMARY | 2022-04-29 07:32 | XMS_ITS | Encounter Summary ---
:1980 Author Organization [facility] Address [address] [place] [address] Care Team Providers Name Role Phone Matheus Feliciano M.D. Primary Care Provider [phone] Encounter Details Date Type Department Care Team Description 12/19/2021 Clinical Communication Department of Matheus [facility], Prabhu Parmar, Clinic, in [place] [address] [address] [phone] Social History Tobacco Use Types Packs/Day Years [...] do you attend episcopalian or Never 2021 anglican services? 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 - 12/23/2021 8:29 AM CDT Patient has an appointment on December [address] Feliciano. Telephone Encounter - Alejandra Meadows - 12/20/2021 2:20 PM CDT Patient returned nurse's call. Please call patient back [phone] Telephone Encounter - Matheus Feliciano M.B.B.S. MBob [...] to see a specialist. Current Phone Number: [phone] Can Nursing/Provider leave a detailed message?: yes [...] on filedocumented in this encounter Care Teams Gate Technician Relationship Specialty Start Date End Date Matheus Feliciano M.B.B.S., M.D. PCP - General Family Medicine 01/09/[address] [place] [phone] documented as of this encounter
--- OUTSIDE RECORDS SUMMARY | 2022-04-29 07:32 | XMS_ITS | Encounter Summary ---
:1980 Author Organization [facility] Address [address] [place] [address] Care Team Providers Name Role Phone Matheus Feliciano M.D. Primary Care Provider [phone] Reason for Referral Outpatient (Routine) - Closed Specialty Diagnoses / Procedures Referred By Contact Refer red To Contact Diagnoses Swelling Abdomen Nicol Mcdonald P.A.-[facility] Procedures US Abdomen Limited Abdominal Wall [address] [place] [phone] Referral ID Status Reason Start Date Expiration Date Visits Requ ested Visits Authorized [id number] Closed 11/01/2021 11/01/2022 1 1 Reason for Visit Outpatient (Routine) - Closed Specialty Diagnoses / Procedures Referred By Contact Refer red To Contact Plastic Surgery Joe Ziegler M.D., [facility] [place] [address] Referral ID Status Reason Start Date Expiration Date Visits Requ ested Visits Authorized [id number] Closed 10/31/2021 10/31/2022 1 1 Encounter Details Date Type Department Care Team Description 11/01/2021 Office Visit Division of Plastic [place], Swelling Abdomen Surgery in [facility] Vikki Camarena (Primary Dx) [place] [address] [facility] [facility] [address] [place] [phone] Social History Tobacco Use Types Packs/Day Years [...] do you attend pentecostalism or Never 2021 latter day services? 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 PCP - General Family Medicine 01/09/[address] [place] [phone] documented as of this encounter
--- OUTSIDE RECORDS SUMMARY | 2022-04-29 07:32 | XMS_ITS | Encounter Summary ---
:1980 Author Organization [facility] Address [address] [place] [address] Care Team Providers Name Role Phone Matheus Feliciano M.D. Primary Care Provider [phone] Reason for Visit Reason Comments Med Refill Encounter Details Date Type Department Care Team Description 01/02/2022 Refill Department of Family Medicine, Matheus Feliciano I., Med Refill [facility], in [place]letier [place], [place] 300 [facility] 300 [place] [address] [place] [address] [phone] Social History Tobacco Use Types Packs/Day Years [...] do you attend mu-ism or Never 2021 zoroastrian services? Do you [...] on filedocumented in this encounter Care Teams Experimental Aircraft Mechanic Relationship Specialty Start Date End Date Matheus Feliciano M.B.B.S., M.D. PCP - General Family Medicine 01/09/[address] [place] [address] PANKAJ Velez [phone] documented as of this encounter
--- OUTSIDE RECORDS SUMMARY | 2022-04-29 07:32 | XMS_ITS | Encounter Summary ---
:1980 Author Organization [facility] Address [address] [place] [address] Care Team Providers Name Role Phone Matheus Feliciano M.D. Primary Care Provider [phone] Reason for Referral Outpatient (Routine) - Closed Specialty Diagnoses / Procedures Referred By Contact Refer red To Contact Otorhinolaryngology Diagnoses Pain Ear Bilateral Matheus Feliciano I. [facility] [place] 300 [place] [address] Referral ID Status Reason Start Date Expiration Date Visits V isits Requested Authorized [id number] Closed Specialty 01/08/2022 01/08/2023 1 1 Services Required hysical Therapy (Routine) - Authorized Specialty Diagnoses / Procedures Referred By Contact Refer red To Contact Physical Therapy Diagnoses Pain Low Back Unspecified Matheus Feliciano [employer] M.B.B.S., M.D. & Physical Therapy 300 [facility] 35 [place] [phone] Phone: [phone] Referral ID Status Reason Start Expiration Visits Visits Date Date Requested Authorized [id number] Authorized Service not 01/08/2022 01/08/2023 1 1 available at any [facility] site Reason for Visit Reason Comments Follow-up Back pain continues to be ba d Appointment Request (Routine) - Closed Specialty Diagnoses / Procedures Referred By Contact Refer red To Contact Family Medicine Referral ID Status Reason Start Date Expiration Date Visits Requ ested Visits Authorized [id number] Closed 01/07/2022 01/07/2023 1 1 Encounter Details Date Type Department Care Team Description 01/08/2022 Office Visit Department of [facility] Matheus Feliciano Pain Low Back Unspecified (Primary Dx); Medicine, Prabhu Parmar, Pain Lo w Back Chronic; Clinic, in [place] Pain Ear Bilateral [place] 300 [facility] 300 [place] [phone] Social History Tobacco Use Types Packs/Day [...] do you attend voodoo or Never 2021 evangelical services? 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 PCP - General Family Medicine 01/09/[address] [place] [address] [place] [phone] documented as of this encounter
--- OUTSIDE RECORDS SUMMARY | 2022-04-29 07:32 | XMS_ITS | Encounter Summary ---
:1980 Author Organization [facility] Address [address] [place] [address] Care Team Providers Name Role Phone Matheus Feliciano M.D. Primary Care Provider [phone] Encounter Details Date Type Department Care Team Description 01/20/2022 Orders Only Pharmacy Prior Auth ANTONY [facility] [place] [phone] Social History Tobacco Use Types Packs/Day Years [...] do you attend baptism or Never 2021 yarsani services? 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 PCP - General Family Medicine 01/09/[address] [place] [phone] documented as of this encounter
--- OUTSIDE RECORDS SUMMARY | 2022-04-29 07:32 | XMS_ITS | Encounter Summary ---
:1980 Author Organization [facility] Address [address] [place] [address] Care Team Providers Name Role Phone Matheus Feliciano M.D. Primary Care Provider [phone] Reason for Referral Outpatient (Routine) - Closed Specialty Diagnoses / Procedures Referred By Contact Refer red To Contact Plastic Surgery Nicol Mcdonald P. A.-C. [address] [phone] Referral ID Status Reason Start Date Expiration Date Visits Requ ested Visits Authorized [id number] Closed 12/03/2021 12/03/2022 1 1 Reason for Visit Outpatient (Routine) - Canceled Specialty Diagnoses / Procedures Referred By Contact Refer red To Contact Plastic Surgery Nicol Mcdonald P. A.-C. [address] [phone] Referral ID Status Reason Start Date Expiration Date Visits V isits Requested Authorized [id number] Canceled 10/16/2021 10/16/2022 1 1 Encounter Details Date Type Department Care Team Description 12/03/2021 Office Visit Division of Plastic Fox Mcdonald Examination Surgery in [place], Vikki Camarena Postoperative Visit [address] (Primary Dx) [address] [place] [phone] Social History Tobacco Use Types Packs/Day [...] do you attend protestant or Never 2021 druze services? 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 PCP - General Family Medicine 01/09/[address] [place] [address] [place] [phone] documented as of this encounter
--- OUTSIDE RECORDS SUMMARY | 2022-04-29 07:32 | XMS_ITS | Encounter Summary ---
:1980 Author Organization [facility] Address [address] [place] [address] Care Team Providers Name Role Phone Matheus Feliciano M.D. Primary Care Provider [phone] Reason for Referral Outpatient (Routine) - Closed Specialty Diagnoses / Procedures Referred By Contact Refer red To Contact Diagnoses Swelling Abdomen Nicol Mcdonald P.A.-C. [place] [facility] Procedures US Abdomen Limited Abdominal Wall [address] [place] [address] [phone] Referral ID Status Reason Start Date Expiration Date Visits Requ ested Visits Authorized [id number] Closed 11/01/2021 11/01/2022 1 1 Reason for Visit Outpatient (Routine) - Closed Specialty Diagnoses / Procedures Referred By Contact Refer red To Contact Diagnoses Swelling Abdomen Nicol Mcdonald P.A.-C. [place] Procedures US Abdomen Limited Abdominal Wall [address] [place] [phone] Referral ID Status Reason Start Date Expiration Date Visits Requ ested Visits Authorized [id number] Closed 11/01/2021 11/01/2022 1 1 Encounter Details Date Type Department Care Team Description 11/01/2021 Hospital Encounter Department of Tamara Swelling Abdomen Radiology, Jose Martin Camarena P.A.-C. [facility], in [address] [place] [address] [place] [address] [place], [place] [phone] (Work) [phone] Social History Tobacco Use Types Packs/Day Years [...] do you attend buddhism or Never 2021 congregational services? 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 PCP - General Family Medicine 01/09/[address] [place] [phone] documented as of this encounter
--- OUTSIDE RECORDS SUMMARY | 2022-04-29 07:32 | XMS_ITS | Encounter Summary ---
:1980 Author Organization [facility] Address [address] [place] [address] Care Team Providers Name Role Phone Matheus Feliciano M.D. Primary Care Provider [phone] Encounter Details Date Type Department Care Team Description 02/11/2022 Clinical Communication Department of Matheus Chester [facility], Prabhu Parmar, Clinic, in [place] [address] [address] [phone] Social History Tobacco Use Types Packs/Day Years [...] do you attend gnosticist or Never 2021 jehovah's witness services? 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 PCP - General Family Medicine 01/09/[address] [place] [address] [place] [address] documented as of this encounter
--- OUTSIDE RECORDS SUMMARY | 2022-04-29 07:32 | XMS_ITS | Encounter Summary ---
:1980 Author Organization [facility] Address [address] [place] [address] Care Team Providers Name Role Phone Matheus Feliciano M.D. Primary Care Provider [phone] Encounter Details Date Type Department Care Team Description 01/24/2022 Clinical Communication Department of Matheus Chester [facility], Prabhu Parmar, Clinic, in [place] [address] [address] [phone] Social History Tobacco Use Types Packs/Day Years [...] do you attend taoism or Never 2021 jainism services? 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 CRafalM.ARafal - 02/04/2022 1:14 PM CDT Gricelda Roberts is eligible for Controlled Substance Prescribing Plan (CSPP). Patient meets the following inclusion criteria: i. Daily use > 3 months ii. Anticipated longterm use If long-term prescribing under the controlled [...] were used: none Telephone Encounter - Brannon Wakefield C.M.A. - 02/04/2022 12:48 PM CDT Left [...] the issue with imaging. Patient informed that speech writer will send a message to Dr. [...] filedocumented in this encounter Care Teams Supervisor Graphite Relationship Specialty Start Date End Date Matheus Feliciano M.B.B.S., M.D. PCP - General Family Medicine 01/09/[address] [place] [address] PANKAJ Velez [phone] documented as of this encounter
--- OUTSIDE RECORDS SUMMARY | 2022-04-29 07:32 | XMS_ITS | Encounter Summary ---
:1980 Author Organization [facility] Address [address] [place] [address] Care Team Providers Name Role Phone Matheus Feliciano M.D. Primary Care Provider [phone] Encounter Details Date Type Department Care Team Description 01/23/2022 Orders Only Pharmacy Prior Auth ANTONY MarysolAriane Jenny [phone] Social History Tobacco Use Types Packs/Day Years [...] do you attend orthodox or Never 2021 protestant services? 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 PCP - General Family Medicine 01/09/[address] [place] [address] [place] [address] documented as of this encounter
--- OUTSIDE RECORDS SUMMARY | 2022-04-29 07:32 | XMS_ITS | Encounter Summary ---
:1980 Author Organization [facility] Address [address] [place] [address] Care Team Providers Name Role Phone Matheus Feliciano M.D. Primary Care Provider [phone] Reason for Visit Reason Comments Med Refill Encounter Details Date Type Department Care Team Description 11/18/2021 Refill Department of Family Medicine, Matheus Feliciano I., Med Refill [facility], in [place], [place] 300 [facility] 300 [place] [address] [place] [address] [phone] Social History Tobacco Use Types Packs/Day Years [...] do you attend mormonism or Never 2021 episcopal services? 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 PCP - General Family Medicine 01/09/[address] [place] [address] PANKAJ Velez [phone] documented as of this encounter
--- OUTSIDE RECORDS SUMMARY | 2022-04-29 07:32 | XMS_ITS | Encounter Summary ---
:1980 Author Organization [facility] Address [address] [place] [address] Care Team Providers Name Role Phone Matheus Feliciano M.D. Primary Care Provider [phone] Encounter Details Date Type Department Care Team Description 01/27/2022 Orders Only Pharmacy Prior Auth ANTONY Jacob Cardona [phone] Social History Tobacco Use Types Packs/Day Years [...] do you attend gnosticism or Never 2021 faith services? 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/2021 7:35 PM PATIENT PARTNER documented as of this encounter Plan of Treatment Not on filedocumented as of this encounter Visit Diagnoses Not on filedocumented in this encounter Care Teams Blow Pit Operator Relationship Specialty Start Date End Date Matheus Feliciano M.B.B.S., Jose. PCP - General Family Medicine 01/09/[address] [place] [address] [place] [address] documented as of this encounter
--- OUTSIDE RECORDS SUMMARY | 2022-04-29 07:32 | XMS_ITS | Encounter Summary ---
:1980 Author Organization [facility] Address [address] [place] [address] Care Team Providers Name Role Phone Matheus Feliciano M.D. Primary Care Provider [phone] Reason for Visit Reason Comments Med Refill Encounter Details Date Type Department Care Team Description 12/01/2021 Refill Department of Family Medicine, Matheus Feliciano I., Med Refill [facility], in [place], [place] 300 [facility] 300 [place] [address] [place] [address] [phone] Social History Tobacco Use Types Packs/Day Years [...] do you attend hinduism or Never 2021 baptism services? 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 PCP - General Family Medicine 01/09/[address] [place] [address] PANKAJ Velez [phone] documented as of this encounter
--- OUTSIDE RECORDS SUMMARY | 2022-04-29 07:32 | XMS_ITS | Encounter Summary ---
:1980 Author Organization [facility] Address [address] [place] [address] Care Team Providers Name Role Phone Matheus Feliciano M.D. Primary Care Provider [phone] Reason for Visit Reason Comments Medical Information Encounter Details Date Type Department Care Team Description 12/27/2021 Clinical Communication Department of Raz Feliciano [facility] in [address] [address] [place], [place] [phone] [address] (Work) [phone] Social History Tobacco Use Types Packs/Day Years [...] do you attend sabianist or Never 2021 baptist services? 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/2021 7:35 PM PLATE MAKER ZINC documented as of this encounter Miscellaneous Notes Telephone Encounter - Keturah Rockwell - 01/03/2022 3:22 PM CDT Patient called back again. She wants a call back at [phone] (this is not the number that she was calling from but it is the number she gave me for a call back number) Telephone Encounter - Liu Taylor - 12/31/2021 4:09 PM CDT Reason for [...] on filedocumented in this encounter Care Teams Furrier Apprentice Relationship Specialty Start Date End Date Matheus Feliciano M.B.B.S., M.D. PCP - General Family Medicine 01/09/[address] [place] [address] [place] BarcenasAssumptionPANKAJ woody [phone] documented as of this encounter
--- OUTSIDE RECORDS SUMMARY | 2022-04-29 07:32 | XMS_ITS | Encounter Summary ---
:1980 Author Organization [facility] Address [address] [place] [address] Care Team Providers Name Role Phone Matheus Feliciano M.D. Primary Care Provider [phone] Reason for Visit Outpatient (Routine) - Closed Specialty Diagnoses / Procedures Referred By Contact Refer red To Contact Plastic Surgery Nicol Mcdonald P. A.-C. [facility] [address] [place] [address] [phone] Referral ID Status Reason Start Date Expiration Date Visits Requ ested Visits Authorized [id number] Closed 12/03/2021 12/03/2022 1 1 Encounter Details Date Type Department Care Team Description 01/15/2022 Office Visit Division of Plastic Fox Mcdonald Examination Surgery in [place], Vikki Camarena Postoperative Visit [address] (Primary Dx) [address] [place] [phone] Social History Tobacco Use Types Packs/Day Years [...] do you attend advent or Never 2021 faith services? 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 PCP - General Family Medicine 01/09/[address] [place] [phone] documented as of this encounter
--- OUTSIDE RECORDS SUMMARY | 2022-04-29 07:32 | XMS_ITS | Encounter Summary ---
:1980 Author Organization [facility] Address [address] [place] [address] Care Team Providers Name Role Phone Matheus Feliciano M.D. Primary Care Provider [phone] Encounter Details Date Type Department Care Team Description 02/25/2022 Clinical Communication Department of Matheus Chester [facility], Prabhu Parmar, Clinic, in [place] [address] [address] [phone] Social History Tobacco Use Types Packs/Day Years [...] do you attend anabaptist or Never 2021 synagogue services? 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 PCP - General Family Medicine 01/09/[address] [place] [address] Faye [place] Rouge[place]ANK[place] woody [phone] documented as of this encounter
--- OUTSIDE RECORDS SUMMARY | 2022-04-29 07:32 | XMS_ITS | Encounter Summary ---
:1980 Author Organization [facility] Address [address] [place] [address] Care Team Providers Name Role Phone Matheus Feliciano M.D. Primary Care Provider [phone] Reason for Visit Reason Comments Med Refill Encounter Details Date Type Department Care Team Description 03/29/2022 Refill Department of Family Medicine, Matheus Feliciano I., Med Refill [facility], in [place], [place] 300 [facility] 300 [place] [address] [place] [address] [phone] Social History Tobacco Use Types Packs/Day Years [...] do you attend caodaism or Never 2021 yazidi services? 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/2021 7:35 PM INTERN RETAIL documented as of this encounter Plan of Treatment Not on filedocumented as of this encounter Visit Diagnoses Not on filedocumented in this encounter Care Teams Ice Resurfacing Machine Operators Relationship Specialty Start Date End Date Matheus Feliciano M.B.B.S., M.D. PCP - General Family Medicine 01/09/[address] [place] [address] PANKAJ Velez [phone] documented as of this encounter
--- OUTSIDE RECORDS SUMMARY | 2022-04-29 07:32 | XMS_ITS | Encounter Summary ---
:1980 Author Organization [facility] Address [address] [place] [address] Care Team Providers Name Role Phone Matheus Feliciano M.D. Primary Care Provider [phone] Reason for Referral Outpatient (Routine) - Closed Specialty Diagnoses / Procedures Referred By Contact Refer red To Contact Plastic Surgery Joe Ziegler M.D., [facility] [place] [address] Referral ID Status Reason Start Date Expiration Date Visits Requ ested Visits Authorized [id number] Closed 10/31/2021 10/31/2022 1 1 Scheduling Instructions 11/01/21 1300 with Nicol Encounter Details Date Type Department Care Team Description 10/31/2021 Orders Only Division of Plastic Surgery Elayne Ziegler, in [facility] tomas Perez, Ph.D. [address] [place] [address] [place] [phone] Social History Tobacco Use Types Packs/Day [...] do you attend mosque or Never 2021 synagogue services? 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/2021 7:35 PM GM VIDEO documented as of this encounter Plan of Treatment Scheduled Referrals Name Type Priority Associated Diagnoses Order [facility] Surgery Outpatient Referral Routine Expec kathleen: office visit 11/01/2021 (clinic) (Approximate), Expires: 01/31/2023 documented as of this encounter Visit Diagnoses Not on filedocumented in this encounter Care Teams Elocution Teacher Relationship Specialty Start Date End Date Matheus Feliciano M.B.B.S., M.D. PCP - General Family Medicine 01/09/[address] [place] [address] [place] [address] documented as of this encounter
--- OUTSIDE RECORDS SUMMARY | 2022-04-29 07:32 | XMS_ITS | Encounter Summary ---
:1980 Author Organization [facility] Address [address] [place] [address] Care Team Providers Name Role Phone Matheus Feliciano M.D. Primary Care Provider [phone] Reason for Referral Outpatient (Routine) - Authorized Specialty Diagnoses / Procedures Referred By Contact Refer red To Contact Diagnoses Screening Mammogram Breast Cancer Matheus Feliciano [facility] Procedures BI Breast Screening Bilateral with Tomosynthesis RandiBRafalBZan, M.D. 300 [place] [address] Referral ID Status Reason Start Date Expiration Date Visits V isits Requested Authorized [id number] Authorized 04/15/2022 04/15/2023 1 1 Encounter Details Date Type Department Care Team Description 04/15/2022 Orders Only [facility] Ca reening Mammogram Terry MossBRafalSRafal, Breast Cancer M.DRafal 300 [place] [address] Social History Tobacco Use Types Packs/Day [...] do you attend sikh or Never 2021 evangelical services? Do you belong to any clubs or Yes 09/02/2021 organizations such as sikh groups, unions, frayoubeQ - [employer] or athletic groups, or school groups? 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 PCP - General Family Medicine 01/09/[address] [place] [phone] documented as of this encounter
--- OUTSIDE RECORDS SUMMARY | 2022-04-29 07:32 | XMS_ITS | Encounter Summary ---
:1980 Author Organization [facility] Address [address] [place] [address] Care Team Providers Name Role Phone Matheus Feliciano M.D. Primary Care Provider [phone] Encounter Details Date Type Department Care Team Description 01/15/2022 Orders Only Pharmacy Prior Auth ANTONY Sofia Grayjerome Rosas [phone] Social History Tobacco Use Types Packs/Day Years [...] do you attend tenriism or Never 2021 jew services? 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 PCP - General Family Medicine 01/09/[address] [place] [phone] documented as of this encounter
--- OUTSIDE RECORDS SUMMARY | 2022-04-29 07:32 | XMS_ITS | Encounter Summary ---
:1980 Author Organization [facility] Address [address] [place] [address] Care Team Providers Name Role Phone Matheus Feliciano M.D. Primary Care Provider +[phone] Encounter Details Date Type Department Care Team [...] you attend jehovah's witness or Never 2021 alevism services? 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 PCP - General Family Medicine 01/09/[address] [place] [address] [place] [phone] documented as of this encounter
--- OUTSIDE RECORDS SUMMARY | 2022-04-29 07:32 | XMS_ITS | Encounter Summary ---
:[address] [facility] Address [address] [place] [address] Care Team Providers Name Role Phone Matheus Feliciano M.D. Primary Care Provider [phone] Reason for Visit Reason Comments Med Refill Encounter Details Date Type Department Care Team Description 12/31/2021 Refill Department of Neurology in Abrahan Donis mendoza M.D. Med Refill [place], [place] [address] [facility] [address] [place] [address] [place] [address] [phone] Social History Tobacco Use Types Packs/Day Years [...] do you attend zoroastrianism or Never 2021 mu-ism services? 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 PCP - General Family Medicine 01/09/[address] [place] [address] [place] [address] documented as of this encounter
--- OUTSIDE RECORDS SUMMARY | 2022-04-29 07:32 | XMS_ITS | Encounter Summary ---
:1980 Author Organization [facility] Address [address] [place] [address] Care Team Providers Name Role Phone Matheus Feliciano M.D. Primary Care Provider +[phone] Encounter Details Date Type Department Care Team [...] do you attend taoism or Never 2021 christian services? 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 PCP - General Family Medicine 01/09/[address] [place] [address] PANKAJ Velez [phone] documented as of this encounter
--- OUTSIDE RECORDS SUMMARY | 2022-04-29 07:32 | XMS_ITS | Encounter Summary ---
:1980 Author Organization [facility] Address [address] [place] [address] Care Team Providers Name Role Phone Matheus Feliciano M.D. Primary Care Provider [phone] Reason for Visit Reason Comments Medication Problem Encounter Details Date Type Department Care Team Description 02/11/2022 Clinical Communication Department of Raz Feliciano [facility] Medicine[facility] M[facility] in [address] [address] [place], [place] [phone] (Work) [phone] Social History Tobacco Use Types Packs/Day Years [...] do you attend pentecostalism or Never 2021 baptism services? 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 PCP - General Family Medicine 01/09/[address] [place] [address] Faye ChicotPANKAJ woody [phone] documented as of this encounter
--- OUTSIDE RECORDS SUMMARY | 2022-04-29 07:32 | XMS_ITS | Encounter Summary ---
:[address] [facility] Address [address] [place] [address] Care Team Providers Name Role Phone Matheus Feliciano M.D. Primary Care Provider [phone] Encounter Details Date Type Department Care Team Description 11/20/2021 Clinical Communication Division of Plastic Cresencio ZieglerJagjit Surgery in [place], Ana Gilman, P h.DRafal [address] [address] [place] [address] Social History Tobacco Use Types [...] do you attend bahai or Never 2021 rastafari services? 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 PCP - General Family Medicine 01/09/[address] [place] [address] [place] [phone] documented as of this encounter
--- OUTSIDE RECORDS SUMMARY | 2022-04-29 07:32 | XMS_ITS | Encounter Summary ---
:1980 Author Organization [facility] Address [address] [place] [address] Care Team Providers Name Role Phone Matheus Feliciano M.D. Primary Care Provider [phone] Reason for Visit Reason Comments Earache Outpatient (Routine) - Closed Specialty Diagnoses / Procedures Referred By Contact Refer red To Contact Otorhinolaryngology Diagnoses Pain Ear Bilateral Matheus Feliciano I. [facility] Ana Pelletier [address] [place] [address] Referral ID Status Reason Start Date Expiration Date Visits V isits Requested Authorized [id number] Closed Specialty 01/08/2022 01/08/2023 1 1 Services Required Encounter Details Date Type Department Care Team Description 02/03/2022 Comprehensive Visit Department of Dina, Dysfunc tion Eustachian Tube Bilateral (Primary Dx); Otorhinolaryngology in Trista L, Pain Ear Bilateral [place], [place] P.A.-C. [address] [facility] [address] [place] [address] [address] [phone] [place] [address] Social History Tobacco Use Types Packs/Day Years [...] do you attend pentecostalism or Never 2021 religion services? 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 - 02/03/2022 1:30 PM CDT SUBJECTIVE CHIEF COMPLAINT/REASON FOR VISIT Ear pain, fullness HISTORY OF PRESENT ILLNESS Gricelda Roberts presents to the clinic today with her . She is here to have her ears evaluated. She has history of probable eustachian tube dysfunction, seen for this in 2019. About a month ago she began to have bilateral ear plugging and muffling. The right ear is actually having some discomfort deep within the ear and radiating just posterior to the ear and down the right lateral neck. Oneprovider saw her and saw fluid in her middle ear, and seminal placed on Cortisporin otic suspension drops. These did not seem to help. She has had some nasal congestion, utilizes Flonase and Zyrtec forallergic rhinitis. No history of ear surgeries or procedures. She is edentulous, obtained new dentures on top and bottom approximately 2 months ago, feels that these fit well and she has not been experiencing jaw clenching, holding her dry definitely less, or discomfort. She does have chronic neck andback pain, no musculoskeletal pain in the anterior or lateral neck in the past. The following portions of the patient's history were reviewed: allergies, current medications, problem list, family history, medical history, social history and surgical history OBJECTIVE PHYSICAL EXAMINATION Right external ear normal. Ear canal normal. Right tympanic membrane normal with clear middle ear. Left external canal left canal normal. Left tympanic membrane is normal with a clear middle ear. Intranasal exam reveals mild septal deviation, turbinate hypertrophy ear drainage. Oral cavity is without lesions. Dentures are not removed for this examination. Nasopharynx is clear. Neck is without adenopathy or asymmetry. She is tender with palpation over bilateral sternocleidomastoid. ASSESSMENT / PLAN #1 Pain Ear Bilateral Likely eustachian tube dysfunction, may be multifactorial. Discussed the benign nature of this mass effect that this may improve on its own in the next couple of weeks. We will schedule her with audiology, as this has not yet been ordered. Schedule if audiology evaluation is unremarkable and symptoms persist or worsen, she will let me know we could proceed with temporal CT. Trista Arroyo P.A.-C. documented in this encounter Plan of Treatment Not on filedocumented as of this encounter Visit Diagnoses Diagnosis Dysfunction Eustachian Tube Bilateral - Primary Pain Ear Bilateral documented in this encounter Care Teams Reel Repairer Relationship Specialty Start Date End Date Matheus Feliciano M.B.B.S., M.D. PCP - General Family Medicine 01/09/[address] [place] [phone] documented as of this encounter
--- OUTSIDE RECORDS SUMMARY | 2022-04-29 07:32 | XMS_ITS | Encounter Summary ---
:1980 Author Organization [facility] Address [address] [place] [address] Care Team Providers Name Role Phone Matheus Feliciano M.D. Primary Care Provider [phone] Reason for Visit Reason Comments Rx Prior Authorization PA DENIED ZOLMITRIPTAN 5 MG TAB Encounter Details Date Type Department Care Team Description 01/27/2022 Clinical Communication Pharmacy Prior Auth Jacob Cardona Rx Prior RO [phone] Authorization (EDWARD DENIED ZOLMITRI PTAN 5 MG [...] do you attend hoahaoism or Never 2021 samaritan services? 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 PCP - General Family Medicine 01/09/[address] [place] [address] Faye DewittPANKAJ [phone] documented as of this encounter
--- OUTSIDE RECORDS SUMMARY | 2022-04-29 07:32 | XMS_ITS | Encounter Summary ---
:1980 Author Organization [facility] Address [address] [place] [address] Care Team Providers Name Role Phone Matheus Feliciano M.D. Primary Care Provider [phone] Encounter Details Date Type Department Care Team [...] do you attend evangelical or Never 2021 anglican services? 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/2021 7:35 PM RN BABY documented as of this encounter Plan of [...] on filedocumented in this encounter Care Teams Valuation Consultant Relationship Specialty Start Date End Date Matheus Feliciano M.B.BRafalS., MDonald. PCP - General Family Medicine 01/09/[address] [place] [address] PANKAJ Velez [phone] documented as of this encounter
--- OUTSIDE RECORDS SUMMARY | 2022-04-29 07:32 | XMS_ITS | Encounter Summary ---
:1980 Author Organization [facility] Address [address] [place] [address] Care Team Providers Name Role Phone Matheus Feliciano M.D. Primary Care Provider [phone] Encounter Details Date Type Department Care Team Description 02/26/2022 Orders Only Pharmacy Prior Auth ANTONY [facility] [phone] Social History Tobacco Use Types Packs/Day Years [...] do you attend anabaptism or Never 2021 episcopal services? 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 PCP - General Family Medicine 01/09/[address] [place] [phone] documented as of this encounter
--- OUTSIDE RECORDS SUMMARY | 2022-04-29 07:32 | XMS_ITS | Encounter Summary ---
:1980 Author Organization [facility] Address [address] [place] [address] Care Team Providers Name Role Phone Matheus Feliciano M.D. Primary Care Provider [phone] Reason for Visit Reason Comments Med Refill Encounter Details Date Type Department Care Team Description 01/29/2022 Refill Department of Family Medicine, Matheus Feliciano I., Med Refill [facility], in Ralph Pelletier [place], [place] 300 [facility] [address] [place] [address] [place] [address] [phone] Social History Tobacco Use Types Packs/Day Years [...] do you attend orthodoxy or Never 2021 restorationism services? 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 PCP - General Family Medicine 01/09/[address] [place] [address] PANKAJ Velez [phone] documented as of this encounter
--- OUTSIDE RECORDS SUMMARY | 2022-04-29 07:33 | XMS_ITS | Encounter Summary ---
:[address] [facility] Address [address] [place] [address] Care Team Providers Name Role Phone Matheus Feliciano M.D. Primary Care Provider [phone] Reason for Visit Outpatient (Routine) - Closed Specialty Diagnoses / Procedures Referred By Contact Refer red To Contact Plastic Surgery Diagnoses Pannus Abdominal Matheus Feliciano I.[facility] Ana Pelletier [address] [place] [phone] Referral ID Status Reason Start Date Expiration Date Visits Requ ested Visits Authorized [id number] Closed 06/27/2021 06/27/2022 1 1 Encounter Details Date Type Department Care Team Description 08/06/2021 Comprehensive Visit Division of Plastic [facility] Ph[facility] [address] [place] [phone] Social History Tobacco Use Types Packs/Day Years [...] do you attend gnosticist or Never 2021 sikhism services? 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 CT SALES PROFESSIONAL Associated attestation - Joe Ziegler M.D., Ph.D. - 08/07/2021 11:17 AM DIRECT SALES PROFESSIONAL I saw and evaluated the patient, participating [...] Abdominal documented in this encounter Care Teams Alternative Energy Engineer Relationship Specialty Start Date End Date Matheus Feliciano M.B.B.S., M.D. PCP - General Family Medicine 01/09/[address] [place] [phone] documented as of this encounter
--- OUTSIDE RECORDS SUMMARY | 2022-04-29 07:33 | XMS_ITS | Encounter Summary ---
:1980 Author Organization [facility] Address [address] [place] [address] Care Team Providers Name Role Phone Matheus Feliciano M.D. Primary Care Provider [phone] Encounter Details Date Type Department Care Team Description 07/22/2021 Orders Only Pharmacy Prior Auth ANTONY Brenda Huynh [phone] Social History Tobacco Use Types Packs/Day Years [...] do you attend restorationist or Never 2021 samaritan services? 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 PCP - General Family Medicine 01/09/[address] [place] [address] [place] [phone] documented as of this encounter
--- OUTSIDE RECORDS SUMMARY | 2022-04-29 07:33 | XMS_ITS | Encounter Summary ---
:1980 Author Organization [facility] Address [address] [place] [address] Care Team Providers Name Role Phone Matheus Feliciano M.D. Primary Care Provider [phone] Encounter Details Date Type Department Care Team Description 07/21/2021 Admin Visit Department of Family Medicine, [address] [address] [facility] [phone] Social History Tobacco Use Types Packs/Day Years [...] do you attend jewish or Never 2021 pentecostalism services? 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/2021 7:35 PM VERIFY REP documented as of this encounter Plan of Treatment Not on filedocumented as of this encounter Visit Diagnoses Not on filedocumented in this encounter Additional Health Concerns Infection Onset Date Last Indicated Resolved Time COVID19 Pending 07/20/2021 07/21/2021 07/22/2021 12:24 PM VERIFY REP documented as of this encounter Care Teams Customer Operations Specialist Relationship Specialty Start Date End Date Matheus Feliciano M.B.BRafalSRafal, Jose. PCP - General Family Medicine 01/09/[address] [place] [address] [place] [address] documented as of this encounter
--- OUTSIDE RECORDS SUMMARY | 2022-04-29 07:33 | XMS_ITS | Encounter Summary ---
:1980 Author Organization [facility] Address [address] [place] [address] Care Team Providers Name Role Phone Matheus Feliciano M.D. Primary Care Provider [phone] Reason for Referral Outpatient (Routine) - Closed Specialty Diagnoses / Procedures Referred By Contact Refer red To Contact Plastic Surgery Joe Ziegler M.D., [facility] [place] [address] Referral ID Status Reason Start Date Expiration Date Visits Requ ested Visits Authorized [id number] Closed 08/22/2021 08/22/2022 1 1 Scheduling Instructions 7-10 days after 10/07/21 surgery with CONFLICTS ANALYST/ PA utpatient (Routine) - Closed Specialty Diagnoses / Procedures Referred By Contact Refer red To Contact Plastic Surgery Joe Ziegler M.D., [facility] [place] [address] Referral ID Status Reason Start Date Expiration Date Visits Requ ested Visits Authorized [id number] Closed 08/22/2021 08/22/2022 1 1 Scheduling Instructions 09/06/[address] Ziegler. 30 minutes GE AUTHORIZER Encounter Details Date Type Department Care Team Description 08/22/2021 Orders Only Division of Plastic Surgery Elayne Ziegler, in [facility] tomas Perez, Ph.D. [address] [place] [address] [place] [address] Social History Tobacco Use Types Packs/Day [...] do you attend nondenominational or Never 2021 faith services? 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/2021 7:35 PM CHARGE AUTHORIZER documented as of this encounter Plan of [...] Time COVID19 08/13/2021 08/13/2021 09/02/2021 4:53 AM CHARGE AUTHORIZER documented as of this encounter Care Teams Plate Corrector Relationship Specialty Start Date End Date Matheus Feliciano M.B.B.S., M.D. PCP - General Family Medicine 01/09/[address] [place] [address] [place] [phone] documented as of this encounter
--- OUTSIDE RECORDS SUMMARY | 2022-04-29 07:33 | XMS_ITS | Encounter Summary ---
:1980 Author Organization [facility] Address [address] [place] [address] Care Team Providers Name Role Phone Matheus Feliciano M.D. Primary Care Provider [phone] Encounter Details Date Type Department Care Team Description 10/21/2021 Clinical Communication Department of Jos Ray, Orthopedic Surgery in [place], [place] [address] [facility] [address] [place] [phone] Social History Tobacco Use Types Packs/Day Years [...] do you attend hoahaoism or Never 2021 religion services? 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 Additionally, she went to the [employer] and carried lots of groceries. He drains [...] on filedocumented in this encounter Care Teams Computer Aided Drafter Relationship Specialty Start Date End Date Matheus Feliciano M.B.B.S., M.D. PCP - General Family Medicine 01/09/[address] [place], [place] [address] [phone] documented as of this encounter
--- OUTSIDE RECORDS SUMMARY | 2022-04-29 07:33 | XMS_ITS | Encounter Summary ---
:1980 Author Organization [facility] Address [address] [place] [address] Care Team Providers Name Role Phone Matheus Feliciano M.D. Primary Care Provider [phone] Reason for Visit Reason Comments OTHER Swelling Postoperative concern Encounter Details Date Type Department Care Team Description 10/31/2021 Clinical Communication Division of Karlie, JULIET (Swelling /); [facility] Postopera tive concern Ana Wilkes, Ph.D. [facility] [address] [place] [address] [place] [address] Social History Tobacco Use Types [...] do you attend scientologist or Never 2021 yarsanism services? 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/2021 7:35 PM BEVERAGE HOST documented as of this encounter Miscellaneous Notes [...] on filedocumented in this encounter Care Teams Incident Commander Relationship Specialty Start Date End Date Matheus Feliciano M.B.B.S., M.D. PCP - General Family Medicine 01/09/[address] [place] [address] [place] [phone] documented as of this encounter
--- OUTSIDE RECORDS SUMMARY | 2022-04-29 07:33 | XMS_ITS | Encounter Summary ---
:1980 Author Organization [facility] Address [address] [place] [id number] Care Team Providers Name Role Phone Matheus Feliciano M.D. 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 [place] [id number] [place] [address] Social History Tobacco Use Types [...] do you attend hinduism or Never 2021 episcopal services? 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/2021 7:35 PM CONCRETE PAVING MACHINE OPERATOR documented as of this encounter Last Filed Vital Signs Vital Sign Reading Time Taken Comments Blood Pressure 116/79 10/08/2021 10:45 AM CONCRETE PAVING MACHINE OPERATOR Pulse 74 10/08/2021 10:45 AM CONCRETE PAVING MACHINE OPERATOR Temperature 36.6 ??C (97.9 ??F) 10/08/2021 10:45 AM CONCRETE PAVING MACHINE OPERATOR Respiratory Rate 16 10/08/2021 10:45 AM CONCRETE PAVING MACHINE OPERATOR Oxygen Saturation 100% 10/08/2021 10:45 AM CONCRETE PAVING MACHINE OPERATOR Inhaled Oxygen Concentration - - Weight 69.2 kg (152 lb 8.9 oz) 10/07/2021 7:22 AM CONCRETE PAVING MACHINE OPERATOR Height 162 cm (5' 3.78) 10/07/2021 7:22 AM CONCRETE PAVING MACHINE OPERATOR Body Mass Index 26.37 10/07/2021 7:22 AM CONCRETE PAVING MACHINE OPERATOR documented in this encounter Discharge Summaries Omkar Moore M.D. - 10/07/2021 11:13 AM CST DISCHARGE SUMMARY BRIEF OVERVIEW Hospital: [facility] Discharge Provider: Prasanth Ziegler M.D. Primary Team: [facility] Plastic Surgery - Karlie Primary Care Providers: Matheus Feliciano M.B.B.S., M.D. (General) [address] [place] [phone] Primary Care Provider Primary Care Provider Other [...] Abdominal HOSPITAL COURSE Gricelda Roberts presented to [facility] for surgical management of her abdominal skin [...] were provided to the patient and caregiver(s). RETE PAVING MACHINE OPERATOR documented in this encounter Discharge Instructions AttachmentsThe following attachments cannot be sent through Care Everywhere. Enoxaparin (By injection) (Tanzanian)Oxycodone, Rapid Release (By mouth) (Tanzanian) Laxative, Stimulant Combination (By mouth) (Tanzanian)documented in this encounter Medications at Time of [...] 50 mcg mouth daily. (2,000 Unit) tablet enoxaparin (LOVENOX) Inject 0.4 mL (40 [...] ONE CAPSULE BY 90 capsule 3 10/12/2020 04/12/2021 (STRATTERA) 80 mg MOUTH EVERY DAY capsule [...] as of this encounter Progress Notes Harjeet Brown, PharmRafalD., R.Ph. - 10/07/2021 7:26 AM CST Images [...] migraine. Patient not taking: Reported on 10/07/2021 RETE PAVING MACHINE OPERATOR documented in this encounter Nursing Notes [...] from fall/fall injury Outcome: Adequate for Discharge RETE PAVING MACHINE OPERATOR documented in this encounter OR Notes Op Note - Prasanth Ziegler M.D., Ph.D. - 10/07/2021 9:16 AM CST Pre-op Diagnosis Pannus Abdominal Post-op Diagnosis Pannus Abdominal A assistant professor of art actively participated and was necessary for one [...] noted. The defect was closed with a [id number] stitch using 2-0 Vicrylsuture. The patient's bed [...] tailor tacked closed with jason. Two 19 Czech channel drains were placed in the subcutaneous [...] the entire case. Prasanth Ziegler M.D., Ph.D. RETE PAVING MACHINE OPERATOR Brief Op Note - Omkar Moore M.D. - 10/07/2021 8:13 AM CST Pre-op Diagnosis Pannus Abdominal Post-op Diagnosis Pannus Abdominal Findings As expected. Complications None Procedures 1. Panniculectomy Omkar Moore M.D. RETE PAVING MACHINE OPERATOR documented in this encounter Miscellaneous Notes Hospital Course - Omkar Moore M.D. - 10/07/2021 11:13 AM CST Gricelda Roberts presented to [facility] for surgical management of her abdominal skin [...] acceptable, she was dismissed from the hospital. RETE PAVING MACHINE OPERATOR documented in this encounter Plan of Treatment Not on filedocumented as of this encounter Procedures Procedure Name Priority Date/Time Associated Diagnosis Comme nts PANNICULECTOMY 10/07/2021 8:09 AM CONCRETE PAVING MACHINE OPERATOR Pannus Abdominal documented in this encounter Visit Diagnoses Diagnosis Pannus Abdominal - Primary documented in this encounter Admitting Diagnoses Diagnosis Pannus Abdominal documented in this encounter Administered Medications Inactive Administered Medications - up to 3 most recent administrations Medication Order MAR Action Action Date Dose Rate Site acetaminophen tablet 1,000 mg Given 10/07/2021 7:31 AM CONCRETE PAVING MACHINE OPERATOR 1,000 mg (TYLENOL) 1,000 mg, oral, Once, On Thu10/07/21 at 0700, For 1 dose, Pre-Op, Feed Mixer Helper, PreOp with sips acetaminophen tablet 1,000 mg (TYLENOL) Given 10/08/2021 8:01 AM CONCRETE PAVING MACHINE OPERATOR 1,000 mg 1,000 mg, oral, Every 6 hours, First dose on Thu10/07/21 at 1400 Given 10/08/2021 1:04 AM CONCRETE PAVING MACHINE OPERATOR 1,000 mg Given 10/07/2021 8:11 PM CONCRETE PAVING MACHINE OPERATOR 1,000 mg amoxicillin capsule 500 mg (AMOXIL) Given 10/07/2021 9:21 PM CONCRETE PAVING MACHINE OPERATOR 500 mg 500 mg, oral, Every 8 hours scheduled, First dose on Thu10/07/21 at 1400, For 2 doses, Drug Monitoring Program: Pharmacist to adjust medication dosing based on indication and drug clearance factors., Indications: Prophylaxis, surgical Given 10/07/2021 2:28 PM CONCRETE PAVING MACHINE OPERATOR 500 mg atomoxetine capsule 80 mg (STRATTERA) Given 10/08/2021 8:00 AM CONCRETE PAVING MACHINE OPERATOR 80 mg 80 mg, oral, Daily, First dose on Thu10/08/21 at 0900, Swallow whole. Do NOT crush, chew or open capsule. busPIRone tablet 30 mg (BUSPAR) Given 10/08/2021 8:01 AM CONCRETE PAVING MACHINE OPERATOR 30 mg 30 mg, oral, 2 times daily, First dose on Thu10/07/21 at 2100 Given 10/07/2021 8:11 PM CONCRETE PAVING MACHINE OPERATOR 30 mg cyclobenzaprine tablet 10 mg (FLEXERIL) Given 10/07/2021 8:11 PM CONCRETE PAVING MACHINE OPERATOR 10 mg 10 mg, oral, Bedtime PRN, muscle spasms, Starting on Thu10/07/21 at 1307 enoxaparin injection 40 mg Given 10/08/2021 8:00 AM CONCRETE PAVING MACHINE OPERATOR 40 mg Left Upper Arm (LOVENOX) (Back) 40 mg, subcutaneous, Daily, First dose on Thu10/08/21 at 0900, Drug Monitoring Program: Pharmacist to adjust medication dosing based on indication and drug clearance factors. escitalopram tablet 20 mg (LEXAPRO) Given 10/08/2021 8:00 AM CONCRETE PAVING MACHINE OPERATOR 20 mg 20 mg, oral, Daily, First dose on Thu10/08/21 at 0900 fentaNYL injection 25 mcg (SUBLIMAZE) Given 10/07/2021 11:47 AM CONCRETE PAVING MACHINE OPERATOR 25 mcg 25 mcg, intravenous, Every 2 min PRN, For pain 4 or greater (maximum 100 mcg). If max dose of Fentanyl is reached and if pain is greater than 4, discontinue Fentanyl: give Hydromorphone, Starting on Thu10/07/21 at 1137, PACU (only) Given 10/07/2021 11:44 AM CONCRETE PAVING MACHINE OPERATOR 25 mcg Given 10/07/2021 11:42 AM CONCRETE PAVING MACHINE OPERATOR 25 mcg gabapentin capsule 900 mg (NEURONTIN) Given 10/08/2021 8:01 AM CONCRETE PAVING MACHINE OPERATOR 900 mg 900 mg, oral, 3 times daily, First dose on Thu10/07/21 at 1400 Given 10/07/2021 8:11 PM CONCRETE PAVING MACHINE OPERATOR 900 mg Given 10/07/2021 2:28 PM CONCRETE PAVING MACHINE OPERATOR 900 mg gabapentin capsule 900 mg (NEURONTIN) Given 10/07/2021 12:33 PM CONCRETE PAVING MACHINE OPERATOR 900 mg 900 mg, oral, Once, On Thu10/07/21 at 1245, For 1 dose, PACU (only) granisetron (PF) injection 1 mg (KYTRIL) Given 10/07/2021 11:38 AM CONCRETE PAVING MACHINE OPERATOR 1 mg 1 mg, intravenous, Once [...] of 2 mg Given 10/07/2021 11:53 AM CONCRETE PAVING MACHINE OPERATOR 0.2 mg Given 10/07/2021 11:47 AM CONCRETE PAVING MACHINE OPERATOR 0.2 mg lactated ringers New Bag 10/07/2021 7:13 PM CONCRETE PAVING MACHINE OPERATOR 50 mL/hr 50 mL/hr 50 mL/hr, intravenous, Continuous, Starting on Thu10/07/21 at 1100, PACU & Post-Op Continued from OR 10/07/2021 11:41 AM CONCRETE PAVING MACHINE OPERATOR 50 mL/hr 50 mL/hr levETIRAcetam tablet 500 mg (KEPPRA) Given 10/08/2021 8:01 AM CONCRETE PAVING MACHINE OPERATOR 500 mg 500 mg, oral, 2 times daily, First dose on Thu10/07/21 at 2100 Given 10/07/2021 8:11 PM CONCRETE PAVING MACHINE OPERATOR 500 mg levETIRAcetam tablet 500 mg (KEPPRA) Given 10/07/2021 11:57 AM CONCRETE PAVING MACHINE OPERATOR 500 mg 500 mg, oral, Once, On Thu10/07/21 at 1145, For 1 dose, PACU (only), Missed AM dose. Give now in PACU. loratadine tablet 10 mg (CLARITIN) Given 10/08/2021 8:00 AM CONCRETE PAVING MACHINE OPERATOR 10 mg 10 mg, oral, 2 times daily, First dose (after last modification) on Thu10/07/21 at 2100, loratadine 10 mg oral daily was interchanged for cetirizine Given 10/07/2021 8:11 PM CONCRETE PAVING MACHINE OPERATOR 10 mg oxyCODONE IR tablet 10 mg (ROXICODONE) Given 10/07/2021 11:49 AM CONCRETE PAVING MACHINE OPERATOR 10 mg 10 mg, oral, Once as needed, For pain 4 or greater, Starting on Thu10/07/21 at 1137, For 1 dose, PACU (only) oxyCODONE IR tablet 10 mg (ROXICODONE) Given 10/08/2021 8:01 AM CONCRETE PAVING MACHINE OPERATOR 10 mg 10 mg, oral, Every 4 hours PRN, severe pain or score 7-10 of 10, for breakthrough pain, Starting on Thu10/07/21 at 0855 Given 10/07/2021 9:21 PM CONCRETE PAVING MACHINE OPERATOR 10 mg Given 10/07/2021 5:17 PM CONCRETE PAVING MACHINE OPERATOR 10 mg oxyCODONE IR tablet 5 mg (ROXICODONE) 5 mg, oral, Every 4 hours PRN, moderate pain or score 4-6 of 10, for breakthrough pain, Starting on Thu10/07/[address] tablet 20 mg (PROTONIX) Given 10/08/2021 8:01 AM CONCRETE PAVING MACHINE OPERATOR 20 mg 20 mg, oral, 2 times daily, First dose on Thu10/07/21 at 2100, Swallow whole. Do NOT crush, chew, or split tablet. Given 10/07/2021 8:11 PM CONCRETE PAVING MACHINE OPERATOR 20 mg promethazine tablet 25 mg (PHENERGAN) Given 10/07/2021 2:25 PM CONCRETE PAVING MACHINE OPERATOR 25 mg 25 mg, oral, Daily PRN, nausea, Starting on Thu10/07/21 at 1333 propranoloL tablet 40 mg (INDERAL) Given 10/08/2021 8:01 AM CONCRETE PAVING MACHINE OPERATOR 40 mg 40 mg, oral, 2 times daily, First dose on Thu10/07/21 at 2100 Given 10/07/2021 8:11 PM CONCRETE PAVING MACHINE OPERATOR 40 mg sennosides-docusate sodium 8.6-50 mg per Given 10/08/2021 8:01 A M CONCRETE PAVING MACHINE OPERATOR 1 tablet tablet 1 tablet (SENOKOT-S) 1 tablet, oral, Every 12 hours, First dose on Thu10/07/21 at 2100, do not give if patient has diarrhea. Given 10/07/2021 8:11 PM CONCRETE PAVING MACHINE OPERATOR 1 tablet sodium chloride 0.9 % injection 3 mL Given 10/08/2021 8:06 AM CONCRETE PAVING MACHINE OPERATOR 3 mL 3 mL, intravenous, Every 12 hours scheduled, First dose on Thu10/07/21 at 2100, Peripheral Intravenous Catheter and Rapid Infusion Catheter, when no infusion to maintain patency trospium tablet 20 mg (SANCTURA) Given 10/08/2021 5:58 AM CONCRETE PAVING MACHINE OPERATOR 20 mg 20 mg, oral, 2 times daily before breakfast and dinner, First dose on Thu10/07/21 at 2045, Administer with water at least 1 hr prior to meals., Restriction Criteria (Pharmacy will review and approve if criteria met): After hours OR urgent first dose Given 10/07/2021 9:21 PM CONCRETE PAVING MACHINE OPERATOR 20 mg documented in this encounter Active and Recently Administered Medications Times are shown in CONCRETE PAVING MACHINE OPERATOR. Scheduled Medication Order 10/06/2021 10/07/2021 10/08/2021 acetaminophen tablet 1,000 mg (TYLENOL) (COMPLETED) 0731 (Given - Provider: Erich Phelan RRafalNRafal) 1,000 mg, oral, Once, On Thu10/07/21 at 0700, For 1 dose, Pre-Op, Feed Mixer Helper, PreOp with sips acetaminophen tablet 1,000 mg (TYLENOL) 1427 (Given - Provider: Jane Keenan R.N.)2010 (Given - Provider: Blanka Lau R.N.) 103 (Given - Provider: Hazel Funes R.N.)800 (Given - Provider: Scotty Marrufo R.N.) 1,000 mg, oral, Every 6 hours, First dose on Thu10/07/21 at 1400 amoxicillin capsule 500 mg (AMOXIL) (COMPLETED) 1427 (Given - Provider: Jane Keenan R.N.)2120 (Given - Provider: Shereen SerratoNRafal) 500 mg, oral, Every 8 hours scheduled, F irst dose on Thu10/07/21 at 1400, For 2 doses, Drug Monitoring Program: Pharmacist to adjust medication dosing based on indication and drug clearance factors., Indications: Prophylaxis, surgical atomoxetine capsule 80 mg (STRATTERA) 0800 (Given - Provider: Scotty Marrufo R.N.) 80 mg, oral, Daily, First dose on [...] mcg/actuation nasal spray 2 spray (ISELA NASE) 0805 (Not Given - Provider: Scotty Marrufo R.N. - Reason: Patient/family refused) 2 spray, each nostril, Daily, First dose on Thu10/08/21 at 0900 gabapentin capsule 900 mg (NEURONTIN) 14 28 (Given - Provider: Jane Keenan R.N.)2010 (Given [...] (COMPLETED) 1157 (Given - Provider: Katia Moralez R.NRafal) 500 mg, oral, Once, On Thu10/07/21 at [...] 2120 (G iven - Provider: Blanka Lau RIsiah) 0558 (Given - Provider: Shubham Baig) 20 mg, oral, 2 times daily before breakf ast and dinner, First dose on Thu10/07/21 at 2044, Administer with water at least 1 hr [...] mg of calcium, oral, Every 2 hour CO N, indigestion, Starting on Thu10/07/21 at 1307, Do not exceed 12 tablets per day 500 mg calcium carbonate contains 200 mg of elemental calcium. cyclobenzaprine tablet 10 mg (FLEXERIL) 2010 (Given - Provider: Blanka Lau RIsiah) 10 mg, oral, Bedtime PRN, muscle spasms, Starting on Thu10/07/21 at 1307 fentaNYL injection 25 mcg (SUBLIMAZE) (CANCELED) 1140 (Given - Provider: Katia Moralez, R.N.)1142 (Given - Provider: Katia Moralez R.N.)1144 (Given - Provider: Katia Moralez, R.N.)1147 (Given - Provider: Katia Moralez R.N.) 25 mcg, intravenous, Every 2 min [...] Provider: Katia Moralez R.N.)1153 (Given - Provider: Katia Moralez R.N.)1159 (Given - Provider: Katia Moralez, R.N.) [...] Group 1) 1717 (Given - Provider: Jane Keenan, R.N.)2121 (Given - Provider: Blanka Lau R.N.) 0801 (Given - Provider: Scotty Marrufo, R.N.) 10 mg, oral, Every 4 hours [...] 0855 documented in this encounter Care Teams Aluminum Container Tester Relationship Specialty Start Date End Date Matheus Feilciano M.B.B.S., M.D. PCP - General Family Medicine 01/09/[address] [place] [address] PANKAJ Velez [phone] documented as of this encounter
--- OUTSIDE RECORDS SUMMARY | 2022-04-29 07:33 | XMS_ITS | Encounter Summary ---
:1980 Author Organization [facility] Address [address] [place] [address] Care Team Providers Name Role Phone Matheus Feliciano M.D. Primary Care Provider [phone] Reason for Visit Reason Comments Med Refill Encounter Details Date Type Department Care Team Description 07/21/2021 Refill Department of Family Medicine, Matheus Feliciano I., Med Refill [facility], in [place], [place] [address] [facility] [address] [place] [address] [place] [address] [phone] Social History Tobacco Use Types Packs/Day Years [...] do you attend alevism or Never 2021 adventist services? 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/2021 7:35 PM INDEXER documented as of this encounter Plan of Treatment Not on filedocumented as of this encounter Visit Diagnoses Not on filedocumented in this encounter Additional Health Concerns Infection Onset Date Last Indicated Resolved Time COVID19 Pending 07/20/2021 07/21/2021 07/22/2021 12:24 PM INDEXER documented as of this encounter Care Teams Roll Bucker Relationship Specialty Start Date End Date Matheus Feliciano M.B.B.S., Jose. PCP - General Family Medicine 01/09/[address] [place] [address] [place] [address] documented as of this encounter
--- OUTSIDE RECORDS SUMMARY | 2022-04-29 07:33 | XMS_ITS | Encounter Summary ---
:1980 Author Organization [facility] Address [address] [place] [address] Care Team Providers Name Role Phone Matheus Feliciano M.D. Primary Care Provider [phone] Encounter Details Date Type Department Care Team Description 10/07/2021 Orders Only Pharmacy Prior Auth [facility] [phone] Social History Tobacco Use Types Packs/Day Years [...] do you attend restoration or Never 2021 catholic services? 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 PCP - General Family Medicine 01/09/[address] [place] [address] [place] [address] documented as of this encounter
--- OUTSIDE RECORDS SUMMARY | 2022-04-29 07:33 | XMS_ITS | Encounter Summary ---
:1980 Author Organization [facility] Address [address] [place] [address] Care Team Providers Name Role Phone Matheus Feliciano M.D. Primary Care Provider [phone] Encounter Details Date Type Department Care Team Description 07/21/2021 Hospital Encounter Department of Laboratory Miladys Friedman, Medicine, [facility], in [place], [address] [place], [place] [address] [facility] [address] [place] [address] [phone] Social History Tobacco Use Types Packs/Day Years [...] do you attend yarsani or Never 2021 anabaptist services? 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/2021 7:35 PM VACUUM DRUM DRIER OPERATOR documented as of this encounter Medications [...] D3 daily. 500 mg(1,250mg) -400 unit tablet cyanocobalamin INJECT 1ML 3 mL 3 03/29/2021 04/28/2022 (VITAMIN B12) 1,000 INTRAMUSCULARLY EVERY mcg/mL injection MONTH cyclobenzaprine Take 1 tablet (10 [...] COVID19 Pending 07/20/2021 07/21/2021 07/22/2021 12:24 PM VACUUM DRUM DRIER OPERATOR documented as of this encounter Care Teams Switchboard Wire Worker Helper Relationship Specialty Start Date End Date Matheus Feliciano M.B.B.S., M.D. PCP - General Family Medicine 01/09/[address] [place] [address] PANKAJ Velez [phone] documented as of this encounter
--- OUTSIDE RECORDS SUMMARY | 2022-04-29 07:33 | XMS_ITS | Encounter Summary ---
:1980 Author Organization [facility] Address [address] [place] [address] Care Team Providers Name Role Phone Matheus Feliciano M.D. Primary Care Provider [phone] Reason for Visit Reason Comments Med Refill Encounter Details Date Type Department Care Team Description 10/11/2021 Clinical Communication Division of Plastic Cresencio Ziegler Med Refill Surgery in [place], [place], P h.DRafal [place] [id number] [place] [address] [place] [address] Social History Tobacco Use Types [...] do you attend zoroastrianism or Never 2021 shinto services? 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/2021 7:35 PM TANK CAR LOADER documented as of this encounter Miscellaneous Notes Telephone Encounter - Nicol Mcdonald P.A.-C. - 10/14/2021 4:22 PM TANK CAR LOADER Called pt, note to follow. CAR LOADER Telephone Encounter - Joe Ziegler M.D., Ph.D. - 10/14/2021 4:22 PM TANK CAR LOADER And called back to ask about getting [...] if it has completely met criteria. Joe Ziegler M.D., Ph.D. CAR LOADER Telephone Encounter - Korin Heath - 10/14/2021 12:50 PM CST Patient calling in regards to ongoing pain. She states she is still having high pain levels and is wanting a prescription for pain medication. She would like a call back. CAR LOADER Telephone Encounter - Nicol Mcdonald P.A.-C. - 10/11/2021 12:56 PM TANK CAR LOADER I called and spoke with the patient [...] on. She feels comfortable with this plan. CAR LOADER Telephone Encounter - Korin Heath - 10/11/2021 11:32 AM CST Patient's calling again about getting this rx. Would like it before the weekend. CAR LOADER Telephone Encounter - Korin Heath - 10/11/2021 8:39 AM CST Patient's calling, with patient. She is requesting a refill on her pain medication and wouldlike to speak with the team about this. did not give me any further details. CAR LOADER documented in this encounter Plan of Treatment Not on filedocumented as of this encounter Visit Diagnoses Not on filedocumented in this encounter Care Teams Wet End Tester Relationship Specialty Start Date End Date Matheus Feliciano M.B.B.S., M.D. PCP - General Family Medicine 01/09/[address] [place] [phone] documented as of this encounter
--- OUTSIDE RECORDS SUMMARY | 2022-04-29 07:33 | XMS_ITS | Encounter Summary ---
:1980 Author Organization [facility] Address [address] [place] [address] Care Team Providers Name Role Phone Matheus Feliciano M.D. Primary Care Provider [phone] Reason for Visit Reason Comments Post-op Problem Fever Encounter Details Date Type Department Care Team Description 10/10/2021 Nurse Triage Department of [facility] Katia Witt Po st-op Problem; [facility], in [place], [address] [place] [address] [place], [place] [phone] (Wo rk) [address] [phone] Social History Tobacco Use Types Packs/Day Years [...] do you attend mosque or Never 2021 sabianism services? 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/2021 7:35 PM NON DESTRUCTIVE TESTER documented as of this encounter Miscellaneous [...] 1 hour. Patient was warm transferred to [facility] at the clinic to reach Plastics application support technician for further assistance. DESTRUCTIVE TESTER documented in this encounter Plan of Treatment Not on filedocumented as of this encounter Visit Diagnoses Not on filedocumented in this encounter Care Teams Sprigger Relationship Specialty Start Date End Date Matheus Feliciano M.B.B.S., M.D. PCP - General Family Medicine 01/09/[address] [place] [address] PANKAJ Velez [phone] documented as of this encounter
--- OUTSIDE RECORDS SUMMARY | 2022-04-29 07:33 | XMS_ITS | Encounter Summary ---
:1980 Author Organization [facility] Address [address] [place] [address] Care Team Providers Name Role Phone Matheus Feliciano M.D. Primary Care Provider [phone] Reason for Visit Outpatient (Routine) - Closed Specialty Diagnoses / Procedures Referred By Contact Refer red To Contact Plastic Surgery Joe Ziegler M.D., [facility] [place] [address] Referral ID Status Reason Start Date Expiration Date Visits Requ ested Visits Authorized [id number] Closed 08/22/2021 08/22/2022 1 1 Encounter Details Date Type Department Care Team Description 09/06/2021 Office Visit Division of Plastic Joe Ziegler Abdominal Surgery in [place], Ana Gilman, P h.D. (Primary Dx) [place], [place] [address] [facility] [address] [place] [address] Social History Tobacco Use Types Packs/Day Years [...] do you attend gnosticist or Never 2021 adventist services? 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 We will perform a [id number] panniculectomy to address both the transverse and [...] evaluated with Dr. Ziegler. Corey Hoskins M.D. NEL PROCESS PLANT OPERATOR Associated attestation - Joe Ziegler M.D., Ph.D. - 09/06/2021 3:39 PM CHANNEL PROCESS PLANT OPERATOR I saw and evaluated the patient, participating in the hernandez portions of the service. I reviewed the resident/fellow???s note. I agree with the resident/fellow???s findings and plan. Mrs. Roberts returns for preoperative evaluation prior to panniculectomy. She recently recovered from a COVID infection and has been doing well without any residual symptoms. We discussed the planned procedure including a Zfanc-ce-qod panniculectomy and she does not want to [...] and/or coordination of care as described above. Jeo Ziegler M.D., Ph.D. Linda Leal, R.N. - 09/06/2021 1:00 PM CST REASON FOR VISIT Service of Dr. Ziegler ([phone]) Information Discussed The patient has agreed to move forward with surgery and is listed for panniculectomy and possible placement incisional wound vac on October 07, [address] Ziegler. Informed consent was signed by thepatient. She will stop all blood thinning medications one week prior to surgery. Preoperative instructions were reviewed using the Checklist for Surgical Patients ([id number]). [facility] the [facility] and will follow the fasting instructions provided. Patient was instructed on presurgical cleansing using Hibiclens. A copy of Surgical Site infection: Reducing Your Risk ([id number]) was provided as well as Hibiclens packets. All questions were answered at this time. NEL PROCESS PLANT OPERATOR documented in this encounter Plan of Treatment Not on filedocumented as of this encounter Visit Diagnoses Diagnosis Pannus Abdominal - Primary documented in this encounter Care Teams Natural Gas Field Processing Supervisor Relationship Specialty Start Date End Date Matheus Feliciano M.B.B.S., M.D. PCP - General Family Medicine 01/09/[address] [place] [phone] documented as of this encounter
--- OUTSIDE RECORDS SUMMARY | 2022-04-29 07:33 | XMS_ITS | Encounter Summary ---
:1980 Author Organization [facility] Address [address] [place] [address] Care Team Providers Name Role Phone Matheus Feliciano M.D. 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 [address] Perez, [place] [address] [place] [address] Social History Tobacco Use Types Packs/Day Years [...] do you attend caodaism or Never 2021 episcopal services? 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 documented as of this encounter Last Filed Vital Signs Vital Sign Reading Time Taken Comments Blood Pressure 121/80 10/07/2021 12:00 PM ELECTRO TECH Pulse 95 10/07/2021 12:00 PM ELECTRO TECH Temperature 37.4 ??C (99.3 ??F) 10/07/2021 11:27 AM ELECTRO TECH Respiratory Rate 12 10/07/2021 12:00 PM ELECTRO TECH Oxygen Saturation 96% 10/07/2021 12:00 PM ELECTRO TECH Inhaled Oxygen Concentration - - Weight 69.2 kg (152 lb 8.9 oz) 10/07/2021 7:22 AM ELECTRO TECH Height 162 cm (5' 3.78) 10/07/2021 7:22 AM ELECTRO TECH Body Mass Index 26.37 10/07/2021 7:22 AM ELECTRO TECH documented in this encounter Discharge Summaries Omkar [place] M.D. - 10/07/2021 11:13 AM CST DISCHARGE SUMMARY BRIEF OVERVIEW Hospital: [facility] Discharge Provider: Prasanth Ziegler M.D. Primary Team: [facility] Plastic Surgery - Karlie Primary Care Providers: Matehus Feliciano M.B.B.S., M.D. (General) [address] [place] [address] [place] [address] Primary Care Provider Primary Care Provider Other [...] HOSPITAL COURSE Gricelda Roberts presented to [facility] for surgical management of her abdominal skin [...] were provided to the patient and caregiver(s). TRO TECH documented in this encounter Discharge Instructions AttachmentsThe following attachments cannot be sent through Care Everywhere. Enoxaparin (By injection) (Canadian)Oxycodone, Rapid Release (By mouth) (Canadian) Laxative, Stimulant Combination (By mouth) (Canadian)documented in this encounter Medications at Time of [...] of this encounter Progress Notes Harjeet [place], Pharm.D., R.Ph. - 10/07/2021 7:26 AM [...] migraine. Patient not taking: Reported on 10/07/2021 TRO TECH documented in this encounter Nursing Notes Scotty [...] from fall/fall injury Outcome: Adequate for Discharge TRO TECH documented in this encounter OR Notes Op Note - Prasanth Ziegler M.D., Ph.D. - 10/07/2021 9:16 AM CST Pre-op Diagnosis Pannus Abdominal Post-op Diagnosis Pannus Abdominal A international first officer actively participated and was necessary for one [...] noted. The defect was closed with a fjjqjl-ij-ojfyo stitch using 2-0 Vicrylsuture. The patient's bed [...] tailor tacked closed with jason. Two 19 Macedonian channel drains were placed in the subcutaneous [...] the entire case. Prasanth Ziegler M.D., Ph.D. TRO TECH Brief Op Note - Omkar [place] M.D. - 10/07/2021 8:13 AM CST Pre-op Diagnosis Pannus Abdominal Post-op Diagnosis Pannus Abdominal Findings As expected. Complications None Procedures 1. Panniculectomy Omkar [place] M.D. TRO TECH documented in this encounter Miscellaneous Notes Hospital Course - Omkar [place] M.D. - 10/07/2021 11:13 AM CST Gricelda Roberts presented to [facility] for surgical management of her abdominal skin [...] acceptable, she was dismissed from the hospital. TRO TECH documented in this encounter Plan of Treatment Not on filedocumented as of this encounter Procedures Procedure Name Priority Date/Time Associated Diagnosis Comme nts PANNICULECTOMY 10/07/2021 8:09 AM ELECTRO TECH Pannus Abdominal documented in this encounter Visit Diagnoses Diagnosis Pannus Abdominal - Primary Pannus Abdominal documented in this encounter Admitting Diagnoses Diagnosis Pannus Abdominal documented in this encounter Administered Medications Inactive Administered Medications - up to 3 most recent administrations Medication Order MAR Action Action Date Dose Rate Site acetaminophen tablet 1,000 mg Given 10/07/2021 7:31 AM ELECTRO TECH 1,000 mg (TYLENOL) 1,000 mg, oral, Once, On Thu10/07/21 at 0700, For 1 dose, Pre-Op, Trolley Operator, PreOp with sips acetaminophen tablet 1,000 mg (TYLENOL) Given 10/08/2021 8:01 AM ELECTRO TECH 1,000 mg 1,000 mg, oral, Every 6 hours, First dose on Thu10/07/21 at 1400 Given 10/08/2021 1:04 AM ELECTRO TECH 1,000 mg Given 10/07/2021 8:11 PM ELECTRO TECH 1,000 mg amoxicillin capsule 500 mg (AMOXIL) Given 10/07/2021 9:21 PM ELECTRO TECH 500 mg 500 mg, oral, Every 8 hours scheduled, First dose on Thu10/07/21 at 1400, For 2 doses, Drug Monitoring Program: Pharmacist to adjust medication dosing based on indication and drug clearance factors., Indications: Prophylaxis, surgical Given 10/07/2021 2:28 PM ELECTRO TECH 500 mg atomoxetine capsule 80 mg (STRATTERA) Given 10/08/2021 8:00 AM ELECTRO TECH 80 mg 80 mg, oral, Daily, First dose on Thu10/08/21 at 0900, Swallow whole. Do NOT crush, chew or open capsule. bupivacaine liposome (PF) 20 mL, Given 10/07/2021 10:09 AM ELECTRO TECH 1 00 mL Other bupivacaine 30 mL in sodium chloride (PF) 0.9 % 100 mL injection As needed, Starting on Thu10/07/21 at 1009, Intra-Op busPIRone tablet 30 mg (BUSPAR) Given 10/08/2021 8:01 AM ELECTRO TECH 30 mg 30 mg, oral, 2 times daily, First dose on Thu10/07/21 at 2100 Given 10/07/2021 8:11 PM ELECTRO TECH 30 mg cyclobenzaprine tablet 10 mg (FLEXERIL) Given 10/07/2021 8:11 PM ELECTRO TECH 10 mg 10 mg, oral, Bedtime PRN, muscle spasms, Starting on Thu10/07/21 at 1307 enoxaparin injection 40 mg Given 10/08/2021 8:00 AM ELECTRO TECH 40 mg Left Upper Arm (LOVENOX) (Back) 40 mg, subcutaneous, Daily, First dose on Thu10/08/21 at 0900, Drug Monitoring Program: Pharmacist to adjust medication dosing based on indication and drug clearance factors. escitalopram tablet 20 mg (LEXAPRO) Given 10/08/2021 8:00 AM ELECTRO TECH 20 mg 20 mg, oral, Daily, First dose on Thu10/08/21 at 0900 fentaNYL injection 25 mcg (SUBLIMAZE) Given 10/07/2021 11:47 AM ELECTRO TECH 25 mcg 25 mcg, intravenous, Every 2 min PRN, For pain 4 or greater (maximum 100 mcg). If max dose of Fentanyl is reached and if pain is greater than 4, discontinue Fentanyl: give Hydromorphone, Starting on Thu10/07/21 at 1137, PACU (only) Given 10/07/2021 11:44 AM ELECTRO TECH 25 mcg Given 10/07/2021 11:42 AM ELECTRO TECH 25 mcg gabapentin capsule 900 mg (NEURONTIN) Given 10/08/2021 8:01 AM ELECTRO TECH 900 mg 900 mg, oral, 3 times daily, First dose on Thu10/07/21 at 1400 Given 10/07/2021 8:11 PM ELECTRO TECH 900 mg Given 10/07/2021 2:28 PM ELECTRO TECH 900 mg gabapentin capsule 900 mg (NEURONTIN) Given 10/07/2021 12:33 PM ELECTRO TECH 900 mg 900 mg, oral, Once, On Thu10/07/21 at 1245, For 1 dose, PACU (only) gentamicin-polymixin B 20 mcg/mL-500 Given 10/07/2021 10:[address] 500 mL Other units/mL irrigation (DABS_MODIFIED) irrigation, Once in surgery, OR use only, Starting on Thu10/07/21 at 0720, For 1 dose, Intra-Op, *IRRIGATION ONLY* granisetron (PF) injection 1 mg (KYTRIL) Given 10/07/2021 11:38 AM ELECTRO TECH 1 mg 1 mg, intravenous, Once as [...] of 2 mg Given 10/07/2021 11:53 AM ELECTRO TECH 0.2 mg Given 10/07/2021 11:47 AM ELECTRO TECH 0.2 mg lactated ringers New Bag 10/07/2021 7:13 PM ELECTRO TECH 50 mL/hr 50 mL/hr 50 mL/hr, intravenous, Continuous, Starting on Thu10/07/21 at 1100, PACU & Post-Op Continued from OR 10/07/2021 11:41 AM ELECTRO TECH 50 mL/hr 50 mL/hr levETIRAcetam tablet 500 mg (KEPPRA) Given 10/08/2021 8:01 AM ELECTRO TECH 500 mg 500 mg, oral, 2 times daily, First dose on Thu10/07/21 at 2100 Given 10/07/2021 8:11 PM ELECTRO TECH 500 mg levETIRAcetam tablet 500 mg (KEPPRA) Given 10/07/2021 11:57 AM ELECTRO TECH 500 mg 500 mg, oral, Once, On Thu10/07/21 at 1145, For 1 dose, PACU (only), Missed AM dose. Give now in PACU. loratadine tablet 10 mg (CLARITIN) Given 10/08/2021 8:00 AM ELECTRO TECH 10 mg 10 mg, oral, 2 times daily, First dose (after last modification) on Thu10/07/21 at 2100, loratadine 10 mg oral daily was interchanged for cetirizine Given 10/07/2021 8:11 PM ELECTRO TECH 10 mg oxyCODONE IR tablet 10 mg (ROXICODONE) Given 10/07/2021 11:49 AM ELECTRO TECH 10 mg 10 mg, oral, Once as needed, For pain 4 or greater, Starting on Thu10/07/21 at 1137, For 1 dose, PACU (only) oxyCODONE IR tablet 10 mg (ROXICODONE) Given 10/08/2021 8:01 AM ELECTRO TECH 10 mg 10 mg, oral, Every 4 hours PRN, severe pain or score 7-10 of 10, for breakthrough pain, Starting on Thu10/07/21 at 0855 Given 10/07/2021 9:21 PM ELECTRO TECH 10 mg Given 10/07/2021 5:17 PM ELECTRO TECH 10 mg oxyCODONE IR tablet 5 mg (ROXICODONE) 5 mg, oral, Every 4 hours PRN, moderate pain or score 4-6 of 10, for breakthrough pain, Starting on Thu10/07/[address] tablet 20 mg (PROTONIX) Given 10/08/2021 8:01 AM ELECTRO TECH 20 mg 20 mg, oral, 2 times daily, First dose on Thu10/07/21 at 2100, Swallow whole. Do NOT crush, chew, or split tablet. Given 10/07/2021 8:11 PM ELECTRO TECH 20 mg promethazine tablet 25 mg (PHENERGAN) Given 10/07/2021 2:25 PM ELECTRO TECH 25 mg 25 mg, oral, Daily PRN, nausea, Starting on Thu10/07/21 at 1333 propranoloL tablet 40 mg (INDERAL) Given 10/08/2021 8:01 AM ELECTRO TECH 40 mg 40 mg, oral, 2 times daily, First dose on Thu10/07/21 at 2100 Given 10/07/2021 8:11 PM ELECTRO TECH 40 mg sennosides-docusate sodium 8.6-50 mg per Given 10/08/2021 8:01 A M ELECTRO TECH 1 tablet tablet 1 tablet (SENOKOT-S) 1 tablet, oral, Every 12 hours, First dose on Thu10/07/21 at 2100, do not give if patient has diarrhea. Given 10/07/2021 8:11 PM ELECTRO TECH 1 tablet sodium chloride 0.9 % injection 3 mL Given 10/08/2021 8:06 AM ELECTRO TECH 3 mL 3 mL, intravenous, Every 12 hours scheduled, First dose on Thu10/07/21 at 2100, Peripheral Intravenous Catheter and Rapid Infusion Catheter, when no infusion to maintain patency tranexamic acid 3 g/75 mL (40 mg/mL) in Given 10/07/2021 10:06 A M ELECTRO TECH 75 mL Other NaCl 0.9% sterile solution 75 mL 75 mL, topical, Once in surgery, OR use only, Starting on Thu10/07/21 at 0720, For 1 dose, Intra-Op, For topical, irrigation, or infiltration use ONLY trospium tablet 20 mg (SANCTURA) Given 10/08/2021 5:58 AM ELECTRO TECH 20 mg 20 mg, oral, 2 times daily before breakfast and dinner, First dose on Thu10/07/21 at 2045, Administer with water at least 1 hr prior to meals., Restriction Criteria (Pharmacy will review and approve if criteria met): After hours OR urgent first dose Given 10/07/2021 9:21 PM ELECTRO TECH 20 mg documented in this encounter Active and Recently Administered Medications Times are shown in ELECTRO TECH. Scheduled Medication Order 10/06/2021 10/07/2021 10/08/2021 acetaminophen tablet 1,000 mg (TYLENOL) (COMPLETED) 0731 (Given - Provider: Erich Phelan RRafalNRafal) 1,000 mg, oral, Once, On Thu10/07/21 at 0700, For 1 dose, Pre-Op, Trolley Operator, PreOp with sips acetaminophen tablet 1,000 mg (TYLENOL) 1428 (Given - Provider: Jane Keenan RIsiah)2010 (Given - Provider: Blanka Lau RRafalNRafal) 0104 (Given - Provider: Hazel Funes RRafalNRafal)0801 (Given - Provider: Scotty Marrufo RIisah) 1,000 mg, oral, Every 6 hours, First [...] RIsiah) 08 (Given - Provider: Scotty norton R.N.) 30 mg, oral, 2 times daily, First [...] Keenan RRafalNRafal)2010 (Given - Provider: Blanka Lau R.N.) 08 (Given - Provider: Scotty Marrufo R.N.) 900 mg, oral, 3 times daily, First dose on Thu10/07/21 at 1400 gabapentin capsule 900 mg (NEURONTIN) (COMPLETED) 1233 (Given - Provider: Gricelda Tate R.N.) 900 mg, oral, Once, On Thu10/07/21 at [...] 08 (Given - Provider: Scotty norton R.N.) 20 [...] 7 (Not Given - Provider: Blanka Lau RIsiah - Reason: Contraindicated) 0806 (Given - Provider: Scotty Marrufo R.N.) 3 mL, intravenous, Every 12 hours schedu led, First dose on Thu10/07/21 at 2100, Peripheral Intravenous Catheter and Rapid Infusion Catheter, when no infusion to maintain patency trospium tablet 20 mg (SANCTURA) 2121 (G iven - Provider: Blanka Lau RIsiah) 0558 (Given - Provider: Hazel Funes R [...] mg of calcium, oral, Every 2 hour W[place] N, indigestion, Starting on Thu10/07/21 at 1307, [...] - Provider: Shubham Mock.N.)1159 (Given - Provider: Katia N Rindels, R.N.) 0.2 mg, intravenous, Every 5 min PRN, mo derate pain or score 4-6 of 10, severe pain or score 7-10 of 10, Starting on Thu10/07/21 at 1137, PACU (only), Up to maximum total dose of 2 mg oxyCODONE IR tablet 10 mg (ROXICODONE) (COMPLETED) 1149 (Given - Provider: Katia Moralez RRafalNRafal) 10 mg, oral, Once as needed, For pain 4 or greater, Starting on Thu10/07/21 at 1137, For 1 dose, PACU (only) oxyCODONE IR tablet 10 mg (ROXICODONE)(Linked Group 1) 1717 (Given - Provider: Jane Keenan R.N.)2120 (Given - Provider: Blanka Lau R.N.) 0801 (Given - Provider: Scotty Marrufo RIsiah) 10 mg, oral, Every 4 hours PRN, severe p ain or score 7-10 of 10, for breakthrough pain, Starting on Thu10/07/21 at 0855 oxyCODONE IR tablet 5 mg (ROXICODONE)(Linked Group 1) 1717 (See Alternative - Provider: Jane Keenan R.N.)2120 (See Alternative - Provider: Blanka Lau RIsiah) 0801 (See Alternative - Provider: Scotty Marrufo RIsiah) 5 mg, oral, Every 4 hours PRN, [...] 0855 documented in this encounter Care Teams Data Management Consultant Relationship Specialty Start Date End Date Matheus Feliciano M.B.BRafalSRafal, MDonald. PCP - General Family Medicine 01/09/[address] [place] [address] PANKAJ Velez [phone] documented as of this encounter
--- OUTSIDE RECORDS SUMMARY | 2022-04-29 07:33 | XMS_ITS | Encounter Summary ---
:1980 Author Organization [facility] Address [address] [place] [address] Care Team Providers Name Role Phone Matheus Feliciano M.D. Primary Care Provider [phone] Encounter Details Date Type Department Care Team Description 10/11/2021 Orders Only Division of Plastic Surgery Doyle Mcdonald in [facility] [address] [facility] [address] [place] [address] [place], [place] [phone] (Wo rk) Social History Tobacco Use Types [...] do you attend shinto or Never 2021 shinto services? 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 PCP - General Family Medicine 01/09/[address] [place] [address] PANKAJ Velez [phone] documented as of this encounter
--- OUTSIDE RECORDS SUMMARY | 2022-04-29 07:33 | XMS_ITS | Encounter Summary ---
:1980 Author Organization [facility] Address [address] [place] [address] Care Team Providers Name Role Phone Matheus Feliciano M.D. Primary Care Provider [phone] Encounter Details Date Type Department Care Team Description 10/10/2021 Clinical Communication Department of Jos Ray, Orthopedic Surgery in [place], [place] [address] [facility] [address] [place] [phone] Social History Tobacco Use Types Packs/Day Years [...] do you attend moravian or Never 2021 yazidi services? 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 Jos Ray M.D. T MANAGER documented in this encounter Plan of Treatment Not on filedocumented as of this encounter Visit Diagnoses Not on filedocumented in this encounter Care Teams Bilingual Social Worker Relationship Specialty Start Date End Date Matheus Feliciano M.B.B.S., M.D. PCP - General Family Medicine 01/09/[address] [place] [phone] documented as of this encounter
--- OUTSIDE RECORDS SUMMARY | 2022-04-29 07:33 | XMS_ITS | Encounter Summary ---
:1980 Author Organization [facility] Address [address] [place] [address] Care Team Providers Name Role Phone Matheus Feliciano M.D. Primary Care Provider [phone] Reason for Visit Reason Comments Schedule surgery Encounter Details Date Type Department Care Team Description 08/19/2021 Clinical Communication Division of Plastic [facility], [facility] [place], [place] Ana, Ph.D. [address] [place] [phone] Social History Tobacco Use Types Packs/Day Years [...] do you attend mandaeism or Never 2021 jainism services? 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 - 08/22/2021 2:49 PM INFORMATION TECHNOLOGY INSTRUCTOR REASON FOR CALL Schedule surgery Information Discussed [...] following references were used: nursing clinical judgement RMATION TECHNOLOGY INSTRUCTOR Telephone Encounter - Rosy Trujillo - 08/21/2021 1:45 PM CST Patient called. I did let her know that you will be in contact with her. She has been approved. I did verify that. RMATION TECHNOLOGY INSTRUCTOR Telephone Encounter - Deepa Garcia - 08/19/2021 4:48 PM CST Pt calling wanting to get surgery scheduled. Please give her a call when you can Thank you RMATION TECHNOLOGY INSTRUCTOR documented in this encounter Plan of Treatment Not on filedocumented as of this encounter Visit Diagnoses Not on filedocumented in this encounter Care Teams Ribbon Hand Relationship Specialty Start Date End Date Matheus Feliciano M.B.B.S., M.D. PCP - General Family Medicine 01/09/[address] [place] [address] Isaac ValdostaPANKAJ woody [phone] documented as of this encounter
--- OUTSIDE RECORDS SUMMARY | 2022-04-29 07:33 | XMS_ITS | Encounter Summary ---
:1980 Author Organization [facility] Address [address] [place] [address] Care Team Providers Name Role Phone Matheus Feliciano M.D. Primary Care Provider [phone] Encounter Details Date Type Department Care Team Description 10/14/2021 Orders Only Division of Plastic Surgery Elayne Ziegler, in [facility] tomas Perez, Ph.D. [address] [place] [address] [place] [phone] Social History Tobacco Use Types Packs/Day [...] do you attend yarsanism or Never 2021 baptism services? 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 PCP - General Family Medicine 01/09/[address] [place] [address] [place] [phone] documented as of this encounter
--- OUTSIDE RECORDS SUMMARY | 2022-04-29 07:33 | XMS_ITS | Encounter Summary ---
:1980 Author Organization [facility] Address [address] [place] [address] Care Team Providers Name Role Phone Matheus Feliciano M.D. Primary Care Provider [phone] Encounter Details Date Type Department Care Team [...] do you attend baptism or Never 2021 mormonism services? 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/2021 7:35 PM COMMUNITY OUTREACH COORDINATOR documented as of this encounter Plan of Treatment Not on filedocumented as of this encounter Procedures Procedure Name Priority Date/Time Associated Diagnosis Comme nts PLASTIC AND RECON Routine 10/16/2021 12:00 AM Res ults for this SURGERY IMAGE EXAM COMMUNITY OUTREACH COORDINATOR procedure are in the results section. documented in this encounter Results Abdomen Panniculectomy-Plastic And Recon Surgery Image Exam (10/16/2021 12:00 AM COMMUNITY OUTREACH COORDINATOR) Specimen (Source) Anatomical Location Collection Method / Collectio n Time Received Time / Laterality Volume Narrative [facility] - 10/16/2021 12:20 PM COMMUNITY OUTREACH COORDINATOR This order has been created and [...] on filedocumented in this encounter Care Teams Cement Or Concrete Finishing Supervisor Relationship Specialty Start Date End Date Matheus Feliciano M.B.BRafalSRafal, MDonald. PCP - General Family Medicine 01/09/[address] [place] [address] PANKAJ Velez [phone] documented as of this encounter
--- OUTSIDE RECORDS SUMMARY | 2022-04-29 07:33 | XMS_ITS | Encounter Summary ---
:1980 Author Organization [facility] Address [address] [place] [address] Care Team Providers Name Role Phone Matheus Feliciano M.D. Primary Care Provider [phone] Encounter Details Date Type Department Care Team [...] do you attend anglican or Never 2021 latter day services? Do [...] at Date Recorded Female 09/01/2021 7:35 PM ORGANIC CHEMISTRY PROFESSOR documented as of this encounter Plan of Treatment Not on filedocumented as of this encounter Procedures Procedure Name Priority Date/Time Associated Diagnosis Comme nts PLASTIC AND RECON Routine 08/06/2021 12:05 AM Res ults for this SURGERY IMAGE EXAM ORGANIC CHEMISTRY PROFESSOR procedure are in the results section. documented in this encounter Results Thighs-Plastic And Recon Surgery Image Exam (08/06/2021 12:05 AM ORGANIC CHEMISTRY PROFESSOR) Specimen (Source) Anatomical Location Collection Method / Collectio n Time Received Time / Laterality Volume Narrative IIMS - 08/06/2021 12:01 PM ORGANIC CHEMISTRY PROFESSOR This order has been created and auto-finalized [...] on filedocumented in this encounter Care Teams Patent Searcher Relationship Specialty Start Date End Date Matheus Feliciano M.B.B.S., Jose. PCP - General Family Medicine 01/09/[address] [place] [address] PANK[place] Velez [phone] documented as of this encounter
--- OUTSIDE RECORDS SUMMARY | 2022-04-29 07:33 | XMS_ITS | Encounter Summary ---
:1980 Author Organization [facility] Address [address] [place] [address] Care Team Providers Name Role Phone Matheus Feliciano M.D. Primary Care Provider [phone] Reason for Visit Reason Comments Med Refill Encounter Details Date Type Department Care Team Description 08/04/2021 Refill Department of Family Medicine, Matheus Feliciano I., Med Refill [facility], in [place], [place] 300 [facility] 300 [place] [address] [place] [address] [phone] Social History Tobacco Use Types Packs/Day Years [...] do you attend druze or Never 2021 orthodoxy services? 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 PCP - General Family Medicine 01/09/[address] [place] [address] PANKAJ Velez [phone] documented as of this encounter
--- OUTSIDE RECORDS SUMMARY | 2022-04-29 07:33 | XMS_ITS | Encounter Summary ---
:1980 Author Organization [facility] Address [address] [place] [address] Care Team Providers Name Role Phone Matheus Feliciano M.D. Primary Care Provider [phone] Reason for Visit Reason Comments Med Refill Encounter Details Date Type Department Care Team Description 09/29/2021 Refill Department of Family Medicine, Matheus Feliciano I., Med Refill [facility], in [place], [place] 300 [facility] 300 [place] [address] [place] [address] [phone] Social History Tobacco Use Types Packs/Day Years [...] do you attend mormonism or Never 2021 gnosticism services? 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 PCP - General Family Medicine 01/09/[address] [place] [address] PANKAJ Velez [phone] documented as of this encounter
--- OUTSIDE RECORDS SUMMARY | 2022-04-29 07:33 | XMS_ITS | Encounter Summary ---
:1980 Author Organization [facility] Address [address] [place] [address] Care Team Providers Name Role Phone Matheus Feliciano M.D. 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 [address] [place] [phone] [address] [facility] [place] [address] Anesthesia Record Procedure Summary Procedure Name [...] h andoff to the receiving staff during [facility] ch we 1. Identified the [...] do you attend caodaism or Never 2021 religion services? 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/2021 7:35 PM STUDENT SERVICES VICE PRESIDENT documented as of this encounter OR Notes Anesthesia Postprocedure Evaluation - Donis Nick M.D. - 10/07/2021 12:46 PM CST Patient: Gricelda Roberts Procedure Summary Date: 10/07/21 Room / Location: [place] [address] / [facility] in [place], [place] Anesthesia Start: 828 Anesthesia Stop: 1121 [...] Post Op nausea/vomiting: none Hydration status: euvolemic ENT SERVICES VICE PRESIDENT Anesthesia Procedure Notes - Johnathon Ardon - 10/07/2021 8:48 AM STUDENT SERVICES VICE PRESIDENT Associated Order(s): Airway Airway Date/Time: 10/07/2021 8:38 [...] successful Airway event: no complications ATTESTATION STATEMENT ENT SERVICES VICE PRESIDENT Anesthesia Preprocedure Evaluation - Edmond Jeffrey M.D. - 10/07/2021 7:56 AM CST Preprocedure Anesthesia & H&P Assessment Procedure Summary Date/Time: 10/07/21829 Procedures: PANNICULECTOMY. (N/A ) APPLICATION INCISIONAL WOUND VACUUM ABDOMEN. 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 Location: [place] [address] / [facility] in [place], [place] Providers: Joe Ziegler M.D., Ph.D. Pertinent [...] with patient /legal guardian or through an medical biller coder. Risks/Benefits/Alternatives of Blood transfusion discussed with patient / legal guardian, including an opportunity to ask questions and/or decline some or all transfusion therapies. The patient / legalguardian consented to the use of all blood products, as deemed medically necessary Approval to Proceed: approved for anesthesia ENT SERVICES VICE PRESIDENT documented in this encounter Plan of Treatment Not on filedocumented as of this encounter Procedures Procedure Name Priority Date/Time Associated Comments Diagnosis LDA ANE ENDOTRACHEAL Routine 10/07/2021 8:38 AM R esults for this AIRWAY STUDENT SERVICES VICE PRESIDENT procedure are i n the results section. documented in this encounter Results LDA ANE ENDOTRACHEAL AIRWAY (10/07/2021 8:38 AM STUDENT SERVICES VICE PRESIDENT) Narrative Johnathon Ardon - 10/07/2021 8:38 A M STUDENT SERVICES VICE PRESIDENT Johnathon Ardon ? 10/07/2021 ??8:52 AM Airway [...] IVPB 900 mg Given 10/07/2021 8:58 AM STUDENT SERVICES VICE PRESIDENT 900 mg (CLEOCIN) 900 mg, intravenous, at 100 mL/hr, Administer over 30 Minutes, Once, On Thu10/07/21 at 0730, For 1 dose, Intra-Op, Administer within 1 hour prior to surgical incisi, Indications: Prophylaxis, surgical dexAMETHasone injection (DECADRON) Given 10/07/2021 8:45 AM STUDENT SERVICES VICE PRESIDENT 8 mg intravenous, As needed, Starting on Thu10/07/21 at 0845, Anesthesia Intra-op ePHEDrine (PF) injection Given 10/07/2021 9:14 AM STUDENT SERVICES VICE PRESIDENT 10 mg intravenous, As needed, Starting on Thu10/07/21 at 0903, Anesthesia Intra-op Given 10/07/2021 9:11 AM STUDENT SERVICES VICE PRESIDENT 15 mg Given 10/07/2021 9:08 AM STUDENT SERVICES VICE PRESIDENT 10 mg fentaNYL injection (SUBLIMAZE) Given 10/07/2021 11:11 AM STUDENT SERVICES VICE PRESIDENT 50 mcg intravenous, As needed, Starting on Thu10/07/21 at 0835, Anesthesia Intra-op Given 10/07/2021 9:46 AM STUDENT SERVICES VICE PRESIDENT 50 mcg Given 10/07/2021 8:35 AM STUDENT SERVICES VICE PRESIDENT 150 mcg heparin (porcine) injection Given 10/07/2021 8:58 AM STUDENT SERVICES VICE PRESIDENT 5,000 Units subcutaneous, As needed, Starting on Thu10/07/21 at 0858, Anesthesia Intra-op HYDROmorphone (PF) injection (DILAUDID) Given 10/07/2021 11:13 AM STUDENT SERVICES VICE PRESIDENT 0.5 mg intravenous, As needed, Starting on Thu10/07/21 at 0946, Anesthesia Intra-op Given 10/07/2021 9:46 AM STUDENT SERVICES VICE PRESIDENT 0.5 mg ketamine injection (KETALAR) Given 10/07/2021 9:15 AM STUDENT SERVICES VICE PRESIDENT 20 mg intravenous, As needed, Starting on Thu10/07/21 at 0915, Anesthesia Intra-op lactated ringers New Bag 10/07/2021 9:49 AM STUDENT SERVICES VICE PRESIDENT intravenous, Continuous Infusion: Per Instructions PRN, Starting on Thu10/07/21 at 0831, Anesthesia Intra-op New Bag 10/07/2021 8:31 AM STUDENT SERVICES VICE PRESIDENT lidocaine (PF) (cardiac) injection Given 10/07/2021 8:35 AM STUDENT SERVICES VICE PRESIDENT 100 mg intravenous, As needed, Starting on Thu10/07/21 at 0835, Anesthesia Intra-op ondansetron (PF) injection (ZOFRAN) Given 10/07/2021 11:14 AM STUDENT SERVICES VICE PRESIDENT 4 mg intravenous, As needed, Starting on Thu10/07/21 at 1114, Anesthesia Intra-op phenylephrine injection Given 10/07/2021 9:11 AM STUDENT SERVICES VICE PRESIDENT 50 mcg intravenous, As needed, Starting on Thu10/07/21 at 0847, Anesthesia Intra-op Given 10/07/2021 9:00 AM STUDENT SERVICES VICE PRESIDENT 50 mcg Given 10/07/2021 8:47 AM STUDENT SERVICES VICE PRESIDENT 50 mcg propofoL injection (DIPRIVAN) Given 10/07/2021 8:35 AM STUDENT SERVICES VICE PRESIDENT 180 mg intravenous, As needed, Starting on Thu10/07/21 at 0835, Anesthesia Intra-op rocuronium injection (ZEMURON) Given 10/07/2021 9:56 AM STUDENT SERVICES VICE PRESIDENT 20 mg intravenous, As needed, Starting on Thu10/07/21 at 0843, Anesthesia Intra-op Given 10/07/2021 9:22 AM STUDENT SERVICES VICE PRESIDENT 10 mg Given 10/07/2021 8:43 AM STUDENT SERVICES VICE PRESIDENT 50 mg succinylcholine (PF) injection (ANECTINE ) Given 10/07/2021 8:35 AM STUDENT SERVICES VICE PRESIDENT 100 mg intravenous, As needed, Starting on Thu10/07/21 at 0835, Anesthesia Intra-op sugammadex injection (BRIDION) Given 10/07/2021 11:06 AM STUDENT SERVICES VICE PRESIDENT 140 mg intravenous, As needed, Starting on Thu10/07/21 at 1106, Anesthesia Intra-op documented in this encounter Care Teams Informatics Physician Liaison Relationship Specialty Start Date End Date Matheus Feliciano M.B.BRafalSRafal, M.Jori. PCP - General Family Medicine 01/09/[address] [place] [address] [place] [phone] documented as of this encounter
--- OUTSIDE RECORDS SUMMARY | 2022-04-29 07:33 | XMS_ITS | Encounter Summary ---
:1980 Author Organization [facility] Address [address] [place] [address] Care Team Providers Name Role Phone Matheus Feliciano M.D. Primary Care Provider [phone] Encounter Details Date Type Department Care Team [...] do you attend alevism or Never 2021 muslim services? 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/2021 7:35 PM MEDICAL STAFF CREDENTIALING COORDINATOR documented as of this encounter Plan of Treatment Not on filedocumented as of this encounter Procedures Procedure Name Priority Date/Time Associated Diagnosis Comme nts PLASTIC AND RECON Routine 08/06/2021 12:00 AM Res ults for this SURGERY IMAGE EXAM MEDICAL STAFF CREDENTIALING COORDINATOR procedure are in the results section. documented in this encounter Results Abdomen Panniculectomy-Plastic And Recon Surgery Image Exam (08/06/2021 12:00 AM MEDICAL STAFF CREDENTIALING COORDINATOR) Specimen (Source) Anatomical Location Collection Method / Collectio n Time Received Time / Laterality Volume Narrative IIMS - 08/06/2021 12:01 PM MEDICAL STAFF CREDENTIALING COORDINATOR This order has been created and [...] on filedocumented in this encounter Care Teams Process Server Relationship Specialty Start Date End Date Matheus Feliciano M.B.BRafalSRafal, MDonald. PCP - General Family Medicine 01/09/[address] [place] [address] PANKAJ Velez [phone] documented as of this encounter
--- OUTSIDE RECORDS SUMMARY | 2022-04-29 07:33 | XMS_ITS | Encounter Summary ---
:1980 Author Organization [facility] Address [address] [place] [address] Care Team Providers Name Role Phone Matheus Feliciano M.D. Primary Care Provider [phone] Reason for Visit Outpatient (Routine) - Closed Specialty Diagnoses / Procedures Referred By Contact Refer red To Contact Plastic Surgery Joe Ziegler M.D., [facility] [place] [address] Referral ID Status Reason Start Date Expiration Date Visits Requ ested Visits Authorized [id number] Closed 08/22/2021 08/22/2022 1 1 Encounter Details Date Type Department Care Team Description 10/16/2021 Office Visit Division of Plastic [place], [facility] Examination [place] [facility] Postoperative Visit [address] (Primary Dx) [address] [place] [address] [phone] Social History Tobacco Use Types Packs/Day Years [...] do you attend anglican or Never 2021 orthodox services? 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 HATCHERY SPECIALIST documented in this encounter Plan of Treatment Not on filedocumented as of this encounter Visit Diagnoses Diagnosis Follow Up Examination Postoperative Visi t - Primary documented in this encounter Care Teams Window Installation Subcontractor Relationship Specialty Start Date End Date Matheus Feliciano M.B.B.S., M.D. PCP - General Family Medicine 01/09/[address] [place] [address] PANKAJ Velez [phone] documented as of this encounter
--- OUTSIDE RECORDS SUMMARY | 2022-04-29 07:34 | XMS_ITS | Encounter Summary ---
:1980 Author Organization [facility] Address [address] [place] [address] Care Team Providers Name Role Phone Matheus Feliciano M.D. Primary Care Provider [phone] Reason for Referral Outpatient (Routine) - Closed Specialty Diagnoses / Procedures Referred By Contact Refer red To Contact Plastic Surgery Diagnoses Pannus Abdominal Matheus Feliciano I.[facility] [place] 300 [place] [address] Referral ID Status Reason Start Date Expiration Date Visits Requ ested Visits Authorized [id number] Closed 06/27/2021 06/27/2022 1 1 NING SPECIALIST Encounter Details Date Type Department Care Team Description 06/26/2021 Clinical Communication Department of Matheus Chester [place] I., M.B.B.S., Clinic, in [place] 300 [facility] 300 [place] [address] Social History Tobacco Use [...] at Date Recorded Female 09/01/2021 7:35 PM LEARNING SPECIALIST documented as of this encounter Miscellaneous Notes Telephone Encounter - Ela Reaves - 07/02/2021 5:28 PM CST This patient has been scheduled to see Dr. Ziegler on 08/06 in [place]. Thank you. NING SPECIALIST Telephone Encounter - Matheus Feliciano M.B.B.S., M.D. - 06/27/2021 5:46 PM CST Order has been placed to Plastic Surgery in [place] NING SPECIALIST Telephone Encounter - Ela Fajardo L.P.N. - 06/27/2021 3:32 PM CST Patient called to clinic today and stated she would like to know what department patient should be referred too? Nurse stated Dermatology or plastic surgery. Patient stated it would be more like plastic surgery. Nurse stated we do not have any plastic surgery here in [place] and she would need to go to [place] or [place]. Patient stated she would like to be referred to Plastic Surgery in [place]. Nurse will send message to PCP to place orders. No further questions at time of call end. NING SPECIALIST Telephone Encounter - Kinza Sprague C.MMaki - 06/26/2021 5:25 PM LEARNING SPECIALIST FYI NING SPECIALIST Telephone Encounter - Edmond Justice - 06/26/2021 5:06 PM LEARNING SPECIALIST Reason for Communication: Pt was scheduled to see the [place] general surgery department for a consult regarding [...] evaluation) Name of Medication (if relevant): N/A NING SPECIALIST documented in this encounter Plan of Treatment Scheduled Referrals Name Type Priority Associated Diagnoses Order S chedule Plastic Surgery - Outpatient Referral Routine Pannus Abdominal Expected: General consult 06/27/2021 (clinic) (Approximate), Expires: 06/27/2024 documented as of this encounter Visit Diagnoses Diagnosis Pannus Abdominal - Primary documented in this encounter Care Teams Napper Tender Relationship Specialty Start Date End Date Matheus Feliciano M.B.B.S., M.D. PCP - General Family Medicine 01/09/[address] [place] [phone] documented as of this encounter
--- OUTSIDE RECORDS SUMMARY | 2022-04-29 07:34 | XMS_ITS | Encounter Summary ---
:1980 Author Organization [facility] Address [address] [place] [address] Care Team Providers Name Role Phone Matheus Feliciano M.D. Primary Care Provider [phone] Encounter Details Date Type Department Care Team Description 02/21/2021 Hospital Encounter Department of Matheus Feliciano [facility] hyroidism Laboratory Medicine in [place], [place] [address] [address] [place] [address] [phone] Social History Tobacco Use Types Packs/Day Years [...] do you attend lutheran or Never 2021 scientologist services? 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- [address] [place] [address] [facility] [place] [address] System in [place] [address] documented in this encounter Visit Diagnoses Diagnosis Hypothyroidism documented in this encounter Care Teams Molasses Coloring Operator Relationship Specialty Start Date End Date Matheus Feliciano M.B.B.S., M.D. PCP - General Family Medicine 01/09/[address] [place] [phone] documented as of this encounter
--- OUTSIDE RECORDS SUMMARY | 2022-04-29 07:34 | XMS_ITS | Encounter Summary ---
:1980 Author Organization [facility] Address [address] [place] [address] Care Team Providers Name Role Phone Matheus Feliciano M.D. Primary Care Provider [phone] Reason for Visit Reason Comments Med Refill Encounter Details Date Type Department Care Team Description 05/19/2021 Refill Department of Family Medicine, Matheus Feliciano I., Med Refill [facility], in [place], [place] 300 [facility] 300 [place] [address] [place] [address] [phone] Social History Tobacco Use Types Packs/Day Years [...] do you attend jew or Never 2021 tenriism services? 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 PCP - General Family Medicine 01/09/[address] [place] [address] [place] [phone] documented as of this encounter
--- OUTSIDE RECORDS SUMMARY | 2022-04-29 07:34 | XMS_ITS | Encounter Summary ---
:1980 Author Organization [facility] Address [address] [place] [address] Care Team Providers Name Role Phone Matheus Feliciano M.D. Primary Care Provider [phone] Reason for Visit Reason Comments Med Refill Encounter Details Date Type Department Care Team Description 07/02/2021 Refill Department of Family Medicine, Gagan Mcpherson M.D. Med Refill [facility], in [address] [place] [phone] [place] [address] [place] [address] [phone] Social History Tobacco Use Types Packs/Day Years [...] do you attend hoahaoism or Never 2021 zoroastrianism services? 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 PCP - General Family Medicine 01/09/[address] [place] [address] [place] [phone] documented as of this encounter
--- OUTSIDE RECORDS SUMMARY | 2022-04-29 07:34 | XMS_ITS | Encounter Summary ---
:1980 Author Organization [facility] Address [address] [place] [address] Care Team Providers Name Role Phone Matheus Feliciano M.D. Primary Care Provider [phone] Encounter Details Date Type Department Care Team Description 07/17/2021 Orders Only Pharmacy Prior Auth RO Matheus Feliciano I., [place] [address] [place] [phone] (Wo rk) Social History Tobacco Use [...] do you attend alevism or Never 2021 jehovah's witness services? Do [...] Date Recorded Female 09/01/2021 7:35 PM DIRECTOR HEALTH documented as of this encounter Plan of Treatment Not on filedocumented as of this encounter Visit Diagnoses Not on filedocumented in this encounter Care Teams Mysql Database Administrator Relationship Specialty Start Date End Date Matheus Feliciano M.B.BRafalSRafal, Jose. PCP - General Family Medicine 01/09/[address] [place] [address] P[place] Velez [phone] documented as of this encounter
--- OUTSIDE RECORDS SUMMARY | 2022-04-29 07:34 | XMS_ITS | Encounter Summary ---
:1980 Author Organization [facility] Address [address] [place] [address] Care Team Providers Name Role Phone Matheus Feliciano M.D. Primary Care Provider [phone] Reason for Visit Reason Comments Med Refill Encounter Details Date Type Department Care Team Description 07/02/2021 Refill Department of Family Medicine, Qasim Ceja P.A.-C. Med Refill [facility], in [address] [place] [phone] [place] [address] [place] [address] [phone] Social History Tobacco Use Types Packs/Day Years [...] do you attend christian or Never 2021 rastafarian services? 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 PCP - General Family Medicine 01/09/[address] [place] [address] [place] [phone] documented as of this encounter
--- OUTSIDE RECORDS SUMMARY | 2022-04-29 07:34 | XMS_ITS | Encounter Summary ---
:1980 Author Organization [facility] Address [address] [place] [address] Care Team Providers Name Role Phone Matheus Feliciano M.D. Primary Care Provider [phone] Encounter Details Date Type Department Care Team Description 06/25/2021 Orders Only Pharmacy Prior Auth RO Matheus Feliciano I., [place] [address] [place] [phone] (Wo rk) Social History Tobacco Use [...] do you attend hoahaoism or Never 2021 baptism services? 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/2021 7:35 PM WAFER FABRICATION TECHNICIAN documented as of this encounter Plan of Treatment Not on filedocumented as of this encounter Visit Diagnoses Not on filedocumented in this encounter Care Teams Licensed Physical Therapy Assistant Relationship Specialty Start Date End Date Matheus Feliciano M.B.BRafalSRafal, Jose. PCP - General Family Medicine 01/09/[address] [place] [address] PANKAJ Velez [phone] documented as of this encounter
--- OUTSIDE RECORDS SUMMARY | 2022-04-29 07:34 | XMS_ITS | Encounter Summary ---
:1980 Author Organization [facility] Address [address] [place] [address] Care Team Providers Name Role Phone Matheus Feliciano M.D. Primary Care Provider [phone] Reason for Visit Reason Onset Date Comments Outpatient COVID-19 Testing 07/20/2021 Encounter Details Date Type Department Care Team Description 07/20/2021 External Outreach Department of [facility] Krishan Friedman Contact With And Medicine, Carlos Vasquez D.O. (Suspected) Exposure Building, in [address] COVID-19 ([place], [place] Dx) [address] [facility] [address] [place], [place] [phone] [address] (Work) [phone] Social History Tobacco Use Types Packs/Day Years [...] do you attend hindu or Never 2021 adventist services? 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 - 07/20/2021 10:27 AM CST Encounter created for infectious disease screening. TUB MACHINE OPERATOR documented in this encounter Plan of Treatment Not on filedocumented as of this encounter Procedures Procedure Name Priority Date/Time Associated Diagnosis Comme nts SARS CORONAVIRUS-2 Routine 07/21/2021 2:32 PM Contact With And Results for this RNA, V WASH TUB MACHINE OPERATOR (Suspected) Exposure procedu re are in To COVID-19 the results section. documented in this encounter Results SARS Coronavirus-2 RNA, V Asymptomatic (07/21/2021 2:32 PM WASH TUB MACHINE OPERATOR) [facility] Method Time Signature SARS-CoV-2 Swab, 07/22/2021 MKTO Specimen Nasopharynx 12:23 PM Source WASH TUB MACHINE OPERATOR SARS CoV-2 Undetected Undetected 07/22/2021 MKTO RNA, TMA 12:23 PM WASH TUB MACHINE OPERATOR Comment: SARS-CoV-2 RNA absent. This result does not rule out COVID-19 in the patient, as the sensitivity of the test depends o n the timing of the specimen collection and the quality of the specim en. Result should be correlated with patient's history and clinical presentat ion. ----ADDITIONAL INFORMATION---- This molecular amplification test was pe rformed using the Aptima SARS-CoV-2 assay ([employer] on the [employer] tem under emergency use authorization (EUA) by the U.S. Food and Drug Administ ration. Fact sheets for this EUA assay can be fo und at the following links: For Healthcare Providers: https://www.Entitle a.gov/media/725857/download For Patients: https://www.fda.gov/media/ 904321/download Specimen Anatomical Collection Method Collection Time Receive d Time (Source) Location / / Volume Laterality Varies 07/21/2021 2:32 PM 4:28 (Nasopharynx) WASH TUB MACHINE OPERATOR AM WASH TUB MACHINE OPERATOR Krishan Friedman D.O. LAB MICROBIOLOGY - GENERAL O RDERABLES Performing Organization Address City/[facility]/ZIP Code Phon e Number [address] [place] [address] System in [address] documented in this encounter Visit Diagnoses Diagnosis Contact With And (Suspected) Exposure To COVID-19 - Primary documented in this encounter Additional Health Concerns Infection Onset Date Last Indicated Resolved Time COVID19 Pending 07/20/2021 07/21/2021 07/22/2021 12:24 PM WASH TUB MACHINE OPERATOR documented as of this encounter Care Teams Correctional Probation Officer Relationship Specialty Start Date End Date Matheus Feliciano M.B.BRafalSRafal, MDonald. PCP - General Family Medicine 01/09/[address] [place] [phone] documented as of this encounter
--- OUTSIDE RECORDS SUMMARY | 2022-04-29 07:34 | XMS_ITS | Encounter Summary ---
:1980 Author Organization [facility] Address [address] [place] [address] Care Team Providers Name Role Phone Matheus Feliciano M.D. Primary Care Provider [phone] Encounter Details Date Type Department Care Team Description 07/10/2021 Orders Only [facility] Matheus Hawk I., [address] [facility] [phone] [place] [address] [place] [phone] (Wo rk) Social History Tobacco Use [...] do you attend episcopalian or Never 2021 latter-day services? Do you [...] MULTIMEDIA COORDINATOR documented as of this encounter Plan of Treatment Not on filedocumented as of this encounter Visit Diagnoses Not on filedocumented in this encounter Additional Health Concerns Infection Onset Date Last Indicated Resolved Time COVID19 Pending 07/20/2021 07/21/2021 07/22/2021 12:24 PM MULTIMEDIA COORDINATOR documented as of this encounter Care Teams Rag Production Worker Relationship Specialty Start Date End Date Matheus Feliciano M.B.B.S., M.D. PCP - General Family Medicine 01/09/[address] [place] [address] [place] [phone] documented as of this encounter
--- OUTSIDE RECORDS SUMMARY | 2022-04-29 07:34 | XMS_ITS | Encounter Summary ---
:1980 Author Organization [facility] Address [address] [place] [address] Care Team Providers Name Role Phone Matheus Feliciano M.D. Primary Care Provider [phone] Reason for Visit Reason Comments Med Refill Encounter Details Date Type Department Care Team Description 03/01/2021 Refill Department of Family Medicine, Matheus Feliciano I., Med Refill [facility], in Ralph Pelletier [place], [place] 300 [facility] [place] 300 [place] [address] [place] [address] [phone] Social History Tobacco Use Types Packs/Day Years [...] do you attend samaritan or Never 2021 anglican services? 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/2021 7:35 PM TRANSACTIONAL PARALEGAL documented as of this encounter Plan of Treatment Not on filedocumented as of this encounter Visit Diagnoses Not on filedocumented in this encounter Care Teams Blood And Plasma Laboratory Assistant Relationship Specialty Start Date End Date Matheus Feliciano M.B.B.S., M.D. PCP - General Family Medicine 01/09/[address] [place] [address] [place] [phone] documented as of this encounter
--- OUTSIDE RECORDS SUMMARY | 2022-04-29 07:34 | XMS_ITS | Encounter Summary ---
:1980 Author Organization [facility] Address [address] [place] [address] Care Team Providers Name Role Phone Matheus Feliciano M.D. Primary Care Provider [phone] Encounter Details Date Type Department Care Team Description 07/02/2021 Orders Only Pharmacy Prior Auth RO Matheus Feliciano I., [place] [address] [place] [phone] (Wo rk) Social History Tobacco Use [...] do you attend temple or Never 2021 anglican services? 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 PCP - General Family Medicine 01/09/[address] [place] [address] PANKAJ Velez [phone] documented as of this encounter
--- OUTSIDE RECORDS SUMMARY | 2022-04-29 07:34 | XMS_ITS | Encounter Summary ---
:1980 Author Organization [facility] Address [address] [place] [address] Care Team Providers Name Role Phone Matheus Feliciano M.D. Primary Care Provider [phone] Reason for Visit Reason Comments Results Encounter Details Date Type Department Care Team Description 02/22/2021 Clinical Communication Department of [facility] Matheus Feliciano [facility] Medicine, Prabhu Parmar, Clinic, in [place] 300 [facility] 300 [place] [address] [phone] Social History Tobacco Use Types Packs/Day Years [...] do you attend yarsanism or Never 2021 congregation services? 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 PCP - General Family Medicine 01/09/[address] [place] [address] [place] [address] documented as of this encounter
--- OUTSIDE RECORDS SUMMARY | 2022-04-29 07:34 | XMS_ITS | Encounter Summary ---
:1980 Author Organization [facility] Address [address] [place] [address] Care Team Providers Name Role Phone Matheus Feliciano M.D. Primary Care Provider [phone] Encounter Details Date Type Department Care Team Description 07/02/2021 Orders Only [facility] Matheus Feliciano M.B.B.S., M.D. [address] [place] [phone] (Wo rk) Social History Tobacco Use Types [...] do you attend caodaism or Never 2021 baptism services? 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/2021 7:35 PM MANAGEMENT PROFESSIONAL documented as of this encounter Plan of Treatment Not on filedocumented as of this encounter Visit Diagnoses Not on filedocumented in this encounter Care Teams Woodworking Shop Laborer Relationship Specialty Start Date End Date Matheus Feliciano M.B.BRafalSRafal, Jose. PCP - General Family Medicine 01/09/[address] [place] [address] PANKAJ Velez [phone] documented as of this encounter
--- OUTSIDE RECORDS SUMMARY | 2022-04-29 07:34 | XMS_ITS | Encounter Summary ---
:[address] [facility] Address [address] [place] [address] Care Team Providers Name Role Phone Matheus Feliciano M.D. Primary Care Provider [phone] Reason for Visit Reason Comments Rx Prior Authorization [place] DENIED ZOLMITRIPTAN ORAL TAB 5MG Encounter Details Date Type Department Care Team Description 07/09/2021 Clinical Communication Department of Madhav Feliciano Family MedicineMatheus I., Authorizati on (Terry NicholsB.SRafal, DENIED ZOL MITRIPTAN in [place] ORAL TAB 5MG) [place] 300 [facility] 300 [place] [phone] Social History Tobacco Use Types Packs/Day Years [...] do you attend restoration or Never 2021 jehovah's witness services? 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 Thank you, The OPPA Team L WELDER documented in this encounter Plan of Treatment Not on filedocumented as of this encounter Visit Diagnoses Not on filedocumented in this encounter Additional Health Concerns Infection Onset Date Last Indicated Resolved Time COVID19 Pending 07/20/2021 07/21/2021 07/22/2021 12:24 PM STEEL WELDER documented as of this encounter Care Teams Rubber Heel And Sole Press Tender Relationship Specialty Start Date End Date Matheus Feliciano M.B.B.S., M.D. PCP - General Family Medicine 01/09/[address] [place] [phone] documented as of this encounter
--- OUTSIDE RECORDS SUMMARY | 2022-04-29 07:34 | XMS_ITS | Encounter Summary ---
:1980 Author Organization [facility] Address [address] [place] [address] Care Team Providers Name Role Phone Matheus Feliciano M.D. Primary Care Provider [phone] Encounter Details Date Type Department Care Team Description 07/02/2021 Clinical Communication Department of Matheus [place] [facility], Prabhu Parmar, Clinic, in [place] [address] [address] [phone] Social History Tobacco Use Types Packs/Day Years [...] do you attend gnosticism or Never 2021 orthodoxy services? 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/2021 7:35 PM HUMAN SERVICE SPECIALIST documented as of this encounter Plan of Treatment Not on filedocumented as of this encounter Visit Diagnoses Not on filedocumented in this encounter Care Teams Licensed Sales Producer Relationship Specialty Start Date End Date Matheus Feliciano M.B.B.S., M.D. PCP - General Family Medicine 01/09/[address] [place] [address] [place] [address] documented as of this encounter
--- OUTSIDE RECORDS SUMMARY | 2022-04-29 07:34 | XMS_ITS | Encounter Summary ---
:1980 Author Organization [facility] Address [address] [place] [address] Care Team Providers Name Role Phone Matheus Feliciano M.D. Primary Care Provider [phone] Encounter Details Date Type Department Care Team Description 07/17/2021 Hospital Encounter Department of Yvette Ascencio Preoper ative Exam Laboratory Medicine SAFETY ATTENDANT, C.N.PRafal in [address] [address] [place], [place] [phone] [address] (Work) [phone] Social History Tobacco Use Types Packs/Day Years [...] do you attend scientologist or Never 2021 amish services? 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/2021 7:35 PM CHAINSTITCH ELASTIC ATTACHER documented as of this encounter Medications at [...] Preoperative Exam R esults for this MICROSCOPIC CHAINSTITCH ELASTIC ATTACHER procedure are i n the results section. documented in this encounter Results Urinalysis with Microscopic: Urine, Midstream (07/17/2021 4:41 PM CHAINSTITCH ELASTIC ATTACHER) [facility] Time Signature Source Urine, Urine, 07/17/2021 FB60 Midstream 4:41 PM CHAINSTITCH ELASTIC ATTACHER Clarity Clear Clear 07/17/2021 FB60 4:49 PM CHAINSTITCH ELASTIC ATTACHER Color Yellow 07/17/2021 FB60 4:49 PM CHAINSTITCH ELASTIC ATTACHER Comment: ----REFERENCE VALUE---- Colorless Yellow Dena Blood Negative Negative 07/17/2021 4:49 PM CHAINSTITCH ELASTIC ATTACHER FB60 Nitrite Negative Negative 07/17/2021 4:49 PM CHAINSTITCH ELASTIC ATTACHER FB60 Leukocyte Esterase Negative Negative 07/17/2021 4:49 PM CS T FB60 Protein Negative mg/dL 07/17/2021 4:49 PM CHAINSTITCH ELASTIC ATTACHER FB60 Comment: ----REFERENCE VALUE---- Negative Trace Glucose Negative Negative mg/dL 07/17/2021 4:49 PM CHAINSTITCH ELASTIC ATTACHER FB 60 Ketones, QI(U) Negative Negative mg/dL 07/17/2021 4:[address] FB60 Bilirubin Negative Negative 07/17/2021 4:49 PM CHAINSTITCH ELASTIC ATTACHER FB60 pH 7.0 5.0 - 8.0 07/17/2021 4:49 PM CHAINSTITCH ELASTIC ATTACHER FB60 Specific [place] 1.015 1.001 - 1.035 07/17/2021 4:49 PM CHAINSTITCH ELASTIC ATTACHER FB60 Urobilinogen 0.2 0.2 - 1.0 mg/dL 07/17/2021 4:49 PM CS T FB60 White Blood Cells None Seen /hpf 07/17/2021 4:49 PM CHAINSTITCH ELASTIC ATTACHER FB60 Comment: ----REFERENCE VALUE---- Males: 0-3 Females: 0-10 Unknown: 0-10 Red Blood Cells None Seen 0 - 2 /hpf 07/17/2021 4:49 PM CHAINSTITCH ELASTIC ATTACHER FB60 Squamous Cells Occ-3 /hpf 07/17/2021 4:49 PM CHAINSTITCH ELASTIC ATTACHER FB 60 Specimen Anatomical Collection Method Collection Time Receive d Time (Source) Location / / Volume Laterality Urine (Urine, 07/17/2021 4:41 PM 07/17/20 21 4:41 Midstream) CHAINSTITCH ELASTIC ATTACHER PM CHAINSTITCH ELASTIC ATTACHER Yvette Ascencio APRN C.N.P. LAB URINE ORDERABLES Performing Organization Address City/State/ZIP Code Phon e Number [address] [address] [facility] FB60 [place] [address] [address] documented in this encounter Visit Diagnoses Diagnosis Preoperative Exam documented in this encounter Care Teams Assistant Field Hockey Coach Relationship Specialty Start Date End Date Matheus Feliciano M.B.B.S., M.D. PCP - General Family Medicine 01/09/[address] [place] [phone] documented as of this encounter
--- OUTSIDE RECORDS SUMMARY | 2022-04-29 07:34 | XMS_ITS | Encounter Summary ---
:1980 Author Organization [facility] Address [address] [place] [address] Care Team Providers Name Role Phone Matheus Feliciano M.D. Primary Care Provider [phone] Encounter Details Date Type Department Care Team Description 06/26/2021 Orders Only Pharmacy Prior Auth ANTONY Brenda Huynh [phone] Social History Tobacco Use Types Packs/Day Years [...] do you attend mandaen or Never 2021 nondenominational services? 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/2021 7:35 PM MICROBIOLOGY LABORATORY MANAGER documented as of this encounter Plan of Treatment Not on filedocumented as of this encounter Visit Diagnoses Not on filedocumented in this encounter Care Teams Blower Room Attendant Relationship Specialty Start Date End Date Matheus Feliciano M.B.B.S., M.D. PCP - General Family Medicine 01/09/[address] [place] [phone] documented as of this encounter
--- OUTSIDE RECORDS SUMMARY | 2022-04-29 07:34 | XMS_ITS | Encounter Summary ---
:1980 Author Organization [facility] Address [address] [place] [address] Care Team Providers Name Role Phone Matheus Feliciano M.D. Primary Care Provider [phone] Reason for Visit Reason Comments Med Refill Encounter Details Date Type Department Care Team Description 03/20/2021 Refill Department of Family Medicine, Matheus Feliciano I., Med Refill [facility], in Randi Chaparro M.D. [address], [place] [address] [place] [address] [phone] Social History Tobacco Use Types Packs/Day Years [...] do you attend moravian or Never 2021 moravian services? 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 PCP - General Family Medicine 01/09/[address] [place] [address] [place] [phone] documented as of this encounter
--- OUTSIDE RECORDS SUMMARY | 2022-04-29 07:34 | XMS_ITS | Encounter Summary ---
:1980 Author Organization [facility] Address [address] [place] [address] Care Team Providers Name Role Phone Matheus Feliciano M.D. Primary Care Provider [phone] Reason for Visit Reason Comments Pre-op Exam She will be having left alejandre llar chondroplasty on 07/24/21 at [facility] with Dr. Kevin Adame MD . Immunizations She is hoping to get the rivas ster and flu vaccine today Appointment Request (Routine) - Closed Specialty Diagnoses / Procedures Referred By Contact Refer red To Contact Family Medicine Referral ID Status Reason Start Date Expiration Date Visits Requ ested Visits Authorized [id number] Closed 07/12/2021 07/12/2022 1 1 Encounter Details Date Type Department Care Team Description 07/17/2021 Office Visit Department of [facility] Yvette Ascencio, Preope rative Exam (Primary Dx); Medicine, Jenison SCALDER, C.N.P. Pain Knee Left; Clinic, in [address] Epilepsy Seizure Not Intractable Without Status Epilepticus (HCC); [place], [place] Depression Anxiety; [address] [address] Attention Deficit Hyperactive Disorder; [place], [place] [phone] Migraine Heada monse; [phone] (Work) Gastric Bypass Status Post; [phone] Pain Low Back C hronic; (Fax) Need [...] or relatives? How often do you attend roman catholic or Never 2021 rastafari services? Do you belong to any clubs or Yes 09/02/2021 organizations such as roman catholic groups, unions, fraternal or athletic groups, [...] at Date Recorded Female 09/01/2021 7:35 PM INSTRUCTIONAL WRITER documented as of this encounter Last Filed Vital Signs Vital Sign Reading Time Taken Comments Blood Pressure 100/68 07/17/2021 2:52 PM INSTRUCTIONAL WRITER Pulse 70 07/17/2021 2:52 PM INSTRUCTIONAL WRITER Temperature 36.9 ??C (98.4 ??F) 07/17/2021 2:52 PM INSTRUCTIONAL WRITER Respiratory Rate 18 07/17/2021 2:52 PM INSTRUCTIONAL WRITER Oxygen Saturation 99% 07/17/2021 2:52 PM INSTRUCTIONAL WRITER Inhaled Oxygen Concentration - - Weight 68.4 kg (150 lb 12.7 oz) 07/17/2021 2:52 PM INSTRUCTIONAL WRITER Height 164 cm (5' 4.57) 07/17/2021 2:52 PM INSTRUCTIONAL WRITER Body Mass Index 25.43 07/17/2021 2:52 PM INSTRUCTIONAL WRITER documented in this encounter Patient Instructions Patient InstructionsYvette Ascencio APRN, C.N.P. - 07/17/2021 3:00 PM INSTRUCTIONAL WRITER Instructions: Proceed with surgery as planned. Covid [...] okay for pain. Written preoperative instructions given. RUCTIONAL WRITER documented in this encounter H&P Notes Yvette Ascencio APRN, C.N.P. - 07/17/2021 3:00 PM CST SUBJECTIVE CHIEF COMPLAINT/REASON FOR VISIT Chief Complaint Patient presents with ??? Pre-op Exam She will be having left patellar chondroplasty on 07/24/21 at [facility] with Dr. Kevin Adame MD. ??? Immunizations She is hoping to get the booster and flu vaccine today HISTORY OF PRESENT ILLNESS Mukul Reid is a 40 y.o. female who presents for a preoperative evaluation. She is scheduled for left knee arthroscopy and patellar chondroplasty with possible MARILIA biospy on 05/24/[address] Kevin Adame from [facility]. Mukul has a past medical history [...] tenderness, or organomegaly noted on palpation. Extremities: Bronson and warm. No edema. Neuro: Cranial nerves [...] Ref Range: 5.0 - 8.0 7.0 Specific [place] Latest Ref Range: 1.001 - 1.035 1.015 [...] understanding and agreement with the above plan. RUCTIONAL WRITER documented in this encounter Plan of Treatment Not on filedocumented as of this encounter Results Urinalysis with Microscopic: Urine, Midstream (07/17/2021 4:41 PM INSTRUCTIONAL WRITER) Analysis [facility] Time Signature Source Urine, Urine, 07/17/2021 FB60 Midstream 4:41 PM INSTRUCTIONAL WRITER Clarity Clear Clear 07/17/2021 FB60 4:49 PM INSTRUCTIONAL WRITER Color Yellow 07/17/2021 FB60 4:49 PM INSTRUCTIONAL WRITER Comment: ----REFERENCE VALUE---- Colorless Yellow Dena Blood Negative Negative 07/17/2021 4:49 PM INSTRUCTIONAL WRITER FB60 Nitrite Negative Negative 07/17/2021 4:49 PM INSTRUCTIONAL WRITER FB60 Leukocyte Esterase Negative Negative 07/17/2021 4:49 PM CS T FB60 Protein Negative mg/dL 07/17/2021 4:49 PM INSTRUCTIONAL WRITER FB60 Comment: ----REFERENCE VALUE---- Negative Trace Glucose Negative Negative mg/dL 07/17/2021 4:49 PM INSTRUCTIONAL WRITER FB 60 Ketones, QI(U) Negative Negative mg/dL 07/17/2021 4:[address] FB60 Bilirubin Negative Negative 07/17/2021 4:49 PM INSTRUCTIONAL WRITER FB60 pH 7.0 5.0 - 8.0 07/17/2021 4:49 PM INSTRUCTIONAL WRITER FB60 Specific [place] 1.015 1.001 - 1.035 07/17/2021 4:49 PM INSTRUCTIONAL WRITER FB60 Urobilinogen 0.2 0.2 - 1.0 mg/dL 07/17/2021 4:49 PM CS T FB60 White Blood Cells None Seen /hpf 07/17/2021 4:49 PM INSTRUCTIONAL WRITER FB60 Comment: ----REFERENCE VALUE---- Males: 0-3 Females: 0-10 Unknown: 0-10 Red Blood Cells None Seen 0 - 2 /hpf 07/17/2021 4:49 PM INSTRUCTIONAL WRITER FB60 Squamous Cells Occ-3 /hpf 07/17/2021 4:49 PM INSTRUCTIONAL WRITER FB 60 Specimen Anatomical Collection Method Collection Time Receive d Time (Source) Location / / Volume Laterality Urine (Urine, 07/17/2021 4:41 PM 07/17/20 4:41 Midstream) INSTRUCTIONAL WRITER PM INSTRUCTIONAL WRITER Yvette Ascencio APRN CRafalNRafalP. LAB URINE ORDERABLES Performing Organization Address City/State/ZIP Code Phon e Number [address] [place] [address] [facility] [place] [address] System [address] CBC with Differential, Blood (07/17/2021 4:31 PM INSTRUCTIONAL WRITER) athologist Signature Hemoglobin 13.3 11.6 - 07/17/2021 FB60 15.0 g/dL 4:35 PM INSTRUCTIONAL WRITER Hematocrit 40.1 35.5 - 07/17/2021 FB60 44.9 % 4:35 PM INSTRUCTIONAL WRITER Erythrocytes 4.24 3.92 - 07/17/2021 FB60 5.13 4:35 PM INSTRUCTIONAL WRITER x10(12)/L MCV 94.6 78.2 - 07/17/2021 FB60 97.9 fL 4:35 PM INSTRUCTIONAL WRITER RBC Distrib Width 13.1 12.2 - 07/17/2021 FB60 16.1 % 4:35 PM INSTRUCTIONAL WRITER Platelet Count 261 157 - 371 07/17/2021 FB60 x10(9)/L 4:35 PM INSTRUCTIONAL WRITER Leukocytes 7.1 3.4 - 9.6 07/17/2021 FB60 x10(9)/L 4:35 PM INSTRUCTIONAL WRITER Neutrophils 3.68 1.56 - 07/17/2021 FB60 6.45 4:35 PM INSTRUCTIONAL WRITER x10(9)/L Lymphocytes 2.62 0.95 - 07/17/2021 FB60 3.07 4:35 PM INSTRUCTIONAL WRITER x10(9)/L Monocytes 0.61 0.26 - 07/17/2021 FB60 0.81 4:35 PM INSTRUCTIONAL WRITER x10(9)/L Eosinophils 0.17 0.03 - 07/17/2021 FB60 0.48 4:35 PM INSTRUCTIONAL WRITER x10(9)/L Basophils 0.04 0.01 - 07/17/2021 FB60 0.08 4:35 PM INSTRUCTIONAL WRITER x10(9)/L Specimen Anatomical Collection Method Collection Time Receive d Time (Source) Location / / Volume Laterality Blood (Blood, 07/17/2021 4:31 PM 07/17/20 21 4:32 Venous) INSTRUCTIONAL WRITER PM INSTRUCTIONAL WRITER Yvette Ascencio APRN C.N.P. LAB BLOOD ADD-ON Performing Organization Address City/State/ZIP Code Phon e Number [facility] [place] [address] [facility] [place] [address] System in [place] [address] documented in this encounter Visit Diagnoses Diagnosis Preoperative Exam - Primary Pain Knee Left Epilepsy Seizure Not Intractable Without Status Epilepticus (HCC) Depression Anxiety Attention Deficit Hyperactive Disorder Migraine Headache Gastric Bypass Status Post Pain Low Back Chronic Need Vaccine Immunization Influenza Encounter For COVID-19 Vaccine Immunizat ion documented in this encounter Care Teams Lunchroom Attendant Relationship Specialty Start Date End Date Matheus Feliciano M.B.B.S., MDonald. PCP - General Family Medicine 01/09/[address] [place] [address] documented as of this encounter
--- OUTSIDE RECORDS SUMMARY | 2022-04-29 07:34 | XMS_ITS | Encounter Summary ---
:1980 Author Organization [facility] Address [address] [place] [address] Care Team Providers Name Role Phone Matheus Feliciano M.D. Primary Care Provider [phone] Encounter Details Date Type Department Care Team Description 07/09/2021 Orders Only Pharmacy Prior Auth ANTONY Brenda Huynh [phone] Social History Tobacco Use Types Packs/Day Years [...] do you attend gnosticism or Never 2021 adventist services? 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 PCP - General Family Medicine 01/09/[address] [place] [phone] documented as of this encounter
--- OUTSIDE RECORDS SUMMARY | 2022-04-29 07:34 | XMS_ITS | Encounter Summary ---
:1980 [address] Organization [facility] Address [address] [place] [address] Care Team Providers Name Role Phone Matheus Feliciano M.D. Primary Care Provider [phone] Encounter Details Date Type Department Care Team Description 07/17/2021 Hospital Encounter Department of Yvette Ascencio Preoper ative Exam Laboratory Medicine HUMAN ANATOMY TEACHER, C.N.PRafal in [address] [address] [place], [place] [phone] [address] (Work) [phone] Social History Tobacco Use Types Packs/Day Years [...] do you attend spiritism or Never 2021 anabaptism services? 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 documented in this encounter Results CBC with Differential, Blood (07/17/2021 4:31 PM CAR CLERK PULLMAN) P athologist Signature Hemoglobin 13.3 11.6 - 07/17/2021 FB60 15.0 g/dL 4:35 PM CAR CLERK PULLMAN Hematocrit 40.1 35.5 - 07/17/2021 FB60 44.9 % 4:35 PM CAR CLERK PULLMAN Erythrocytes 4.24 3.92 - 07/17/2021 FB60 5.13 4:35 PM CAR CLERK PULLMAN x10(12)/L MCV 94.6 78.2 - 07/17/2021 FB60 97.9 fL 4:35 PM CAR CLERK PULLMAN RBC Distrib Width 13.1 12.2 - 07/17/2021 FB60 16.1 % 4:35 PM CAR CLERK PULLMAN Platelet Count 261 157 - 371 07/17/2021 FB60 x10(9)/L 4:35 PM CAR CLERK PULLMAN Leukocytes 7.1 3.4 - 9.6 07/17/2021 FB60 x10(9)/L 4:35 PM CAR CLERK PULLMAN Neutrophils 3.68 1.56 - 07/17/2021 FB60 6.45 4:35 PM CAR CLERK PULLMAN x10(9)/L Lymphocytes 2.62 0.95 - 07/17/2021 FB60 3.07 4:35 PM CAR CLERK PULLMAN x10(9)/L Monocytes 0.61 0.26 - 07/17/2021 FB60 0.81 4:35 PM CAR CLERK PULLMAN x10(9)/L Eosinophils 0.17 0.03 - 07/17/2021 FB60 0.48 4:35 PM CAR CLERK PULLMAN x10(9)/L Basophils 0.04 0.01 - 07/17/2021 FB60 0.08 4:35 PM CAR CLERK PULLMAN x10(9)/L Specimen Anatomical Collection Method Collection Time Receive d Time (Source) Location / / Volume Laterality Blood (Blood, 07/17/2021 4:31 PM 07/17/20 21 4:32 Venous) CAR CLERK PULLMAN PM CAR CLERK PULLMAN Yvette Ascencio APRN CRafalNRafalPRafal LAB BLOOD ADD-ON Performing Organization Address City/State/ZIP Code Phon e Number [facility]- [address] [place] [address] [facility] [place] [address] System [address] documented in this encounter Visit Diagnoses Diagnosis Preoperative Exam documented in this encounter Care Teams Assembler Billiard Table Relationship Specialty Start Date End Date Matheus Feliciano M.B.B.S., M.D. PCP - General Family Medicine 01/09/[address] [place] [address] documented as of this encounter
--- OUTSIDE RECORDS SUMMARY | 2022-04-29 07:34 | XMS_ITS | Encounter Summary ---
:1980 Author Organization [facility] Address [address] [place] [address] Care Team Providers Name Role Phone Matheus Feliciano M.D. Primary Care Provider [phone] Reason for Referral Medication Prior Authorization - Denied Specialty Diagnoses / Procedures Referred By Contact Refer red To Contact Matheus Feliciano M.B.B.S., M.D. [address] [place] [address] Referral ID Status Reason Start Date Expiration Date Visits Requ ested Visits Authorized [id number] Denied 1 1 TER AND DECORATOR Reason for Visit Reason Comments Follow-up Discuss sleeping medication and determine possible surgery next steps Outpatient (Routine) - Closed Specialty Diagnoses / Procedures Referred By Contact Refer red To Contact Family Medicine Matheus Feliciano I., [facility] PANKAJ Pelletier M.D. [address] [place] [address] Referral ID Status Reason Start Date Expiration Date Visits Requ ested Visits Authorized [id number] Closed 06/10/2021 06/10/2022 1 1 Encounter Details Date Type Department Care Team Description 06/24/2021 Office Visit Department of Family Matheus Feliciano (Primary Dx); MedicineRishi M.B.B.S., [facility] Abdominal Clinic, in [place] 300 [facility] 300 [facility] [place] [phone] Social History Tobacco Use Types Packs/Day Years [...] do you attend hinduism or Never 2021 yazidi services? 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 TER AND DECORATOR documented in this encounter Plan of Treatment Not on filedocumented as of this encounter Visit Diagnoses Diagnosis Insomnia - Primary Pannus Abdominal documented in this encounter Care Teams Director Child Abuse Therapy Relationship Specialty Start Date End Date Matheus Feliciano M.B.B.S., M.D. PCP - General Family Medicine 01/09/[address] [place] [phone] documented as of this encounter
--- OUTSIDE RECORDS SUMMARY | 2022-04-29 07:34 | XMS_ITS | Encounter Summary ---
:1980 Author Organization [facility] Address [address] [place] [address] Care Team Providers Name Role Phone Matheus Feliciano M.D. Primary Care Provider [phone] Reason for Visit Reason Comments Med Refill Encounter Details Date Type Department Care Team Description 03/28/2021 Refill Department of Family Medicine, Matheus Feliciano I., Med Refill [facility], in [place] Pelletier [place], [place] 300 [facility] 300 [place] [address] [place] [address] [phone] Social History Tobacco Use Types Packs/Day Years [...] do you attend pentecostalism or Never 2021 moravian services? 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 PCP - General Family Medicine 01/09/[address] [place] [address] [place] [phone] documented as of this encounter
--- OUTSIDE RECORDS SUMMARY | 2022-04-29 07:34 | XMS_ITS | Encounter Summary ---
:1980 Author Organization [facility] Address [address] [place] [address] Care Team Providers Name Role Phone Matheus Feliciano M.D. Primary Care Provider [phone] Reason for Visit Reason Comments Abdominal Pain Encounter Details Date Type Department Care Team Description 07/02/2021 Nurse Triage Department of Nehal Ho Abdominal Pain Medicine, [facility], [facility] [address] [address] [place] [address] [phone] Social History Tobacco Use Types Packs/Day Years [...] do you attend episcopalian or Never 2021 latter day services? 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 - 07/02/2021 11:50 AM VENDING MACHINE OPERATOR Chief Complaint / Reason for Call Patient [...] 1 hour Protocols used: ABDOMINAL PAIN - [id number] Care Advice GO TO ED NOW: ANOTHER ADULT SHOULD DRIVE: * It is better and safer if another adult drives instead of you. ING MACHINE OPERATOR documented in this encounter Plan of Treatment Not on filedocumented as of this encounter Visit Diagnoses Not on filedocumented in this encounter Care Teams Crm Manager Relationship Specialty Start Date End Date Matheus Feliciano M.B.B.S., M.D. PCP - General Family Medicine 01/09/[address] [place] [address] [place] [phone] documented as of this encounter
--- OUTSIDE RECORDS SUMMARY | 2022-04-29 07:34 | XMS_ITS | Encounter Summary ---
:1980 Author Organization [facility] Address [address] [place] [address] Care Team Providers Name Role Phone Matheus Feliciano M.D. Primary Care Provider [phone] Reason for Referral Outpatient (Routine) - Closed Specialty Diagnoses / Procedures Referred By Contact Refer red To Contact Family Medicine Matheus Feliciano I.[facility] liz Pelletier M.D. [address] [place] [phone] Referral ID Status Reason Start Date Expiration Date Visits Requ ested Visits Authorized [id number] Closed 06/10/2021 06/10/2022 1 1 Reason for [...] Expiration Date Visits Requ ested Visits Authorized [id number] Closed 06/04/2021 06/04/2022 1 1 Encounter Details Date Type Department Care Team Description 06/10/2021 Office Visit Department of Matheus Chester Abdominal Medicine, Prabhu Parmar, (Primar y Dx) Clinic, in [place] [address] [place] [address] [phone] Social History Tobacco Use Types Packs/Day Years [...] do you attend advent or Never 2021 worship services? 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 PCP - General Family Medicine 01/09/[address] [place] [phone] documented as of this encounter
--- OUTSIDE RECORDS SUMMARY | 2022-04-29 07:34 | XMS_ITS | Encounter Summary ---
:1980 Author Organization [facility] Address [address] [place] [address] Care Team Providers Name Role Phone Matheus Feliciano M.D. Primary Care Provider [phone] Encounter Details Date Type Department Care Team Description 05/29/2021 Clinical Communication Department of Matheus Chester [facility], Prabhu Parmar, Clinic, in [place] [address] [address] [phone] Social History Tobacco Use Types Packs/Day Years [...] do you attend presybeterian or Never 2021 cheondoism services? 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 All of the above was reviewed with her in detail. Her questions were answered. Gagan Tilley M.D. documented in this encounter Plan of Treatment Not on filedocumented as of this encounter Visit Diagnoses Not on filedocumented in this encounter Care Teams Offset Lithographic Press Operator Relationship Specialty Start Date End Date Matheus Feliciano M.B.B.S., M.D. PCP - General Family Medicine 01/09/[address] [place] [address] PANKAJ Velez [phone] documented as of this encounter
--- OUTSIDE RECORDS SUMMARY | 2022-04-29 07:34 | XMS_ITS | Encounter Summary ---
:[address] [facility] Address [address] [place] [address] Care Team Providers Name Role Phone Matheus Feliciano M.D. Primary Care Provider [phone] Encounter Details Date Type Department Care Team Description 06/25/2021 Orders Only Pharmacy Prior Auth Leonarda Montero [phone] Social History Tobacco Use Types Packs/Day Years [...] do you attend orthodoxy or Never 2021 mu-ism services? 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 PCP - General Family Medicine 01/09/[address] [place] [phone] documented as of this encounter
--- OUTSIDE RECORDS SUMMARY | 2022-04-29 07:35 | XMS_ITS | Encounter Summary ---
:1980 Author Organization [facility] Address [address] [place] [address] Care Team Providers Name Role Phone Matheus Feliciano M.D. Primary Care Provider [phone] Reason for Visit Reason Comments SURG DATE Encounter Details Date Type Department Care Team Description 01/23/2021 Clinical Communication Department of Urology Rebel Bernstein, SURG DATE in Yevgeniy Chaparro M.D. [address] [place] [address] [place], [place] [phone] [address] Social History Tobacco Use Types Packs/Day [...] do you attend latter-day or Never 2021 restoration services? 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 - 01/23/2021 2:28 PM CDT Noted in desk cyber policy and strategy planner. Telephone Encounter - Jane Mcallister - 01/23/2021 2:24 PM CDT SURGEON: DR BERNSTEIN PRE Op: 01/29/21 DR FELICIANO SURGERY DATE: 02/06/21 PROCEDURES: 1). LEFT CYSTOSCOPY, URETEROSCOPY, LASER LITHO, BASKET, STENT COVID19 Test: 02/02/21 ANESTHESIA: [facility] WILL CALL WITH ARRIVAL TIME documented in this encounter Plan of Treatment Not on filedocumented as of this encounter Visit Diagnoses Not on filedocumented in this encounter Care Teams Pediatric Lpn Relationship Specialty Start Date End Date Matheus Feliciano M.B.BZan, MDonald. PCP - General Family Medicine 01/09/[address] [place] [address] [place] [phone] documented as of this encounter
--- OUTSIDE RECORDS SUMMARY | 2022-04-29 07:35 | XMS_ITS | Encounter Summary ---
:1980 Author Organization [facility] Address [address] [place] [address] Care Team Providers Name Role Phone Matheus Feliciano M.D. Primary Care Provider [phone] Encounter Details Date Type Department Care Team Description 01/18/2021 Clinical Communication Department of Matheus Chester [facility], Prabhu Parmar, Clinic, in [place] [address] [address] [phone] Social History Tobacco Use Types Packs/Day Years [...] do you attend jainism or Never 2021 christian services? 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 PCP - General Family Medicine 01/09/[address] [place] [address] PANK[place] Velez [phone] documented as of this encounter
--- OUTSIDE RECORDS SUMMARY | 2022-04-29 07:35 | XMS_ITS | Encounter Summary ---
:1980 Author Organization [facility] Address [address] [place] [address] Care Team Providers Name Role Phone Matheus Feliciano M.D. Primary Care Provider [phone] Encounter Details Date Type Department Care Team Description 02/03/2021 Lab Department of Family Medicine, [place], [place] [address] [address] [place] [address] [phone] Social History Tobacco Use Types Packs/Day Years [...] do you attend baptist or Never 2021 zoroastrianism services? 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 Food and Drug Administ ration. Fact sheets for this EUA assay can be fo und at the following links: For Healthcare Providers: https://www.fd a.gov/media/890898/download For Patients: https://www.fda.gov/media/ 851390/download Specimen Anatomical Collection Method Collection Time Receive d Time (Source) Location / / Volume Laterality Varies 02/03/2021 11:50 02/03/2021 (Nasopharynx) AM CDT 11:09 PM CDT Sushila Mcneill APRN, R.N. LAB MICROBIOLOGY - GENERA L ORDERABLES Performing Organization Address City/State/ZIP Code Phon e Number [facility]- [address] [place] [address] [place] [address] System in [place] [address] [place] [address] documented in this encounter Visit Diagnoses Not on filedocumented in this encounter Additional Health Concerns Infection Onset Date Last Indicated Resolved Time COVID19 Pending 02/01/2021 02/03/2021 02/04/2021 4:50 PM CDT documented as of this encounter Care Teams Switch Technician Relationship Specialty Start Date End Date Matheus Feliciano M.B.B.S., Jose. PCP - General Family Medicine 01/09/[address] [place] [address] [place] [address] documented as of this encounter
--- OUTSIDE RECORDS SUMMARY | 2022-04-29 07:35 | XMS_ITS | Encounter Summary ---
:1980 Author Organization [facility] Address [address] [place] [address] Care Team Providers Name Role Phone Matheus Feliciano M.D. Primary Care Provider [phone] Encounter Details Date Type Department Care Team Description 02/04/2021 Clinical Department of Kobi Costa Otorhinolaryngology in [place], [place] 2199 [place] [address] [place] [phone] Social History Tobacco Use Types Packs/Day Years [...] do you attend cheondoism or Never 2021 presybeterian services? 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/2021 7:35 PM STULL HEWER documented as of this encounter Miscellaneous Notes [...] appointment being requested?: Less than 14 days [place] In the past 14 days are any [...] sending patient for testing in [facility] or [facility], route encounter to the correct testing pool. documented in this encounter Plan of Treatment Not on filedocumented as of this encounter Visit Diagnoses Not on filedocumented in this encounter Additional Health Concerns Infection Onset Date Last Indicated Resolved Time COVID19 Pending 02/01/2021 02/03/2021 02/04/2021 4:50 PM CDT documented as of this encounter Care Teams Grocery Caddy Relationship Specialty Start Date End Date Matheus Feliciano M.B.B.S., M.D. PCP - General Family Medicine 01/09/[address] [place] [address] [place] [address] documented as of this encounter
--- OUTSIDE RECORDS SUMMARY | 2022-04-29 07:35 | XMS_ITS | Encounter Summary ---
:1980 Author Organization [facility] Address [address] [place] [address] Care Team Providers Name Role Phone Matheus Feliciano M.D. Primary Care Provider [phone] Encounter Details Date Type Department Care Team Description 01/24/2021 Orders Only [facility] - Matheus Lezama I., [address] , [facility] 1 [place] [address] [place] [address] [place] [address] (Wo rk) Social History Tobacco [...] do you attend islam or Never 2021 latter day services? 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 PCP - General Family Medicine 01/09/[address] [place] [address] PANK[place] Velez [phone] documented as of this encounter
--- OUTSIDE RECORDS SUMMARY | 2022-04-29 07:35 | XMS_ITS | Encounter Summary ---
:1980 Author Organization [facility] Address [address] [place] [address] Care Team Providers Name Role Phone Matheus Feliciano M.D. 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 Elsewhere Classified ([facility]) VITAMIN A, S Routine 02/05/2021 1:19 PM Surgery Bariatric Resu lts for this CDT Status Post procedure are in Postsurgical the results Malabsorption Not section. Elsewhere Classified ([facility]) 25-HYDROXYVITAMIN D2 Routine 02/05/2021 1:19 PM Surgery Bariat lorrie Results for this AND D3, S CDT Status Post procedure are in Postsurgical the results Malabsorption Not section. Elsewhere Classified ([facility]) PARATHYROID HORMONE Routine 02/05/2021 1:19 PM Surgery Bariatr ic Results for this (PTH), S CDT Status Post procedure are in Postsurgical the results Malabsorption Not section. Elsewhere Classified ([facility]) FERRITIN, S Routine 02/05/2021 1:19 PM Surgery [...] and its performa nce characteristics determined by [facility] in a manner consistent with CLIA requirements. [...] Organization Address City/State/ZIP Code Phon e Number [facility] [address] [place] [address] SUPPORT CENTER [facility] [place] [address] Laboratory Medicine and Pathology [address] [place] Vitamin A Level (02/05/2021 1:19 PM CDT) athologist Signature Vitamin A 33.8 32.5 - 78.0 02/07/2021 SDSC mcg/dL 10:08 AM CDT Comment: ----ADDITIONAL INFORMATION---- This test was developed and its performa nce characteristics determined by [facility] in a manner consistent with CLIA requirements. This test has not been cleared or approved by the U.S. Krishna d and Drug Administration. Specimen Anatomical Collection Method Collection Time Receive d Time (Source) Location / / Volume Laterality Blood (Blood, 02/05/2021 1:19 PM 02/07/20 21 5:39 Venous) CDT PM CDT Car Joel M.D. LAB BLOOD NON ADD-ON Performing Organization Address City/[facility]/ZIP Code Phon e Number [facility] [address] [place], [place] [address] [place] [address] [place] [address] Laboratory Medicine and Pathology [address] [place] Vitamin B12 Assay (02/05/2021 1:19 PM CDT) P athologist Signature Vitamin B12 1001 372 - 1244 02/05/2021 AUST Assay, S ng/L 10:10 PM [...] M.D. LAB BLOOD ADD-ON Performing Organization Address City/[facility]/ZIP Code Phon e Number [facility]- [address] [place] [address] [facility] [place] [address] [facility] [address] Parathyroid Hormone (PTH) [...] M.D. LAB BLOOD ADD-ON Performing Organization Address City/[facility] Phon e Number [facility]- [address] [place] [id number] [facility] - [address] (ABNORMAL) Iron and Total Iron-Binding [...] M.D. LAB BLOOD ADD-ON Performing Organization Address 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 PCP - General Family Medicine 01/09/[address] [place] [phone] documented as of this encounter
--- OUTSIDE RECORDS SUMMARY | 2022-04-29 07:35 | XMS_ITS | Encounter Summary ---
:1980 Author Organization [facility] Address [address] [place] [address] Care Team Providers Name Role Phone Matheus Feliciano M.D. Primary Care Provider [phone] Reason for Referral Outpatient (Routine) - Closed Specialty Diagnoses / Procedures Referred By Contact Refer red To Contact Nephrology and Diagnoses Stone Kidney And Ure[facility] PAT, RRafalN. [address] [address] Referral ID Status Reason Start Date Expiration Date Visits Requ ested Visits Authorized [id number] Closed 02/14/2021 02/14/2022 1 1 Reason for Visit Reason Comments Post-op Outpatient (Routine) - Closed Specialty Diagnoses / Procedures Referred By Contact Refer red To Contact Urology Sushila Mcneill APRN, R.N. [facility] Region [address], [place] [address] Referral ID Status Reason Start Date Expiration Date Visits Requ ested Visits Authorized [id number] Closed 01/23/2021 01/23/2022 1 1 Encounter Details Date Type Department Care Team Description 02/14/2021 Office Visit Department of Sushila Mcneill Stone Kidn ey And Ureteral (Primary Dx); Urology in [place] APRN, R. N. Follow Up Examination Postoperative Visi t [place] [address] PANKAJ [...] do you attend confucianism or Never 2021 latter day services? 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 [...] consultation with Nephrology Department stone prevention at [facility]. All questions are answered today. Signed by: [...] Organization Address City/State/ZIP Code Phon e Number [facility]- [address] [place] [address] [facility] - [place], [place] [address] [place] [address] Phosphorus Inorganic (02/14/2021 [...] Organization Address City/State/ZIP Code Phon e Number [facility]- [address] [place] [address] [facility] - [place], [place] [address] [place] [address] [facility] documented in this encounter Visit Diagnoses Diagnosis Stone Kidney And Ureteral - Primary Follow Up Examination Postoperative Visi t documented in this encounter Care Teams Harness Racing Handicapper Relationship Specialty Start Date End Date Matheus Feliciano M.B.B.S., MDonald. PCP - General Family Medicine 01/09/[address] [place] [address] [place] [address] documented as of this encounter
--- OUTSIDE RECORDS SUMMARY | 2022-04-29 07:35 | XMS_ITS | Encounter Summary ---
:1980 Author Organization [facility] Address [address] [place] [address] Care Team Providers Name Role Phone Matheus Feliciano M.D. Primary Care Provider [phone] Encounter Details Date Type Department Care Team Description 02/14/2021 Hospital Encounter Department of Sushila Mcneill Kidney And Laboratory Medicine PAT Gan R.N . Ureteral in [address] [address] [place], [place] [phone] [address] (Work) [phone] Social History Tobacco Use Types Packs/Day Years [...] do you attend mormonism or Never 2021 anabaptist services? 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 PCP - General Family Medicine 01/09/[address] [place] [address] PANKAJ Velez [phone] documented as of this encounter
--- OUTSIDE RECORDS SUMMARY | 2022-04-29 07:35 | XMS_ITS | Encounter Summary ---
:1980 Author Organization [facility] Address [address] [place] [address] Care Team Providers Name Role Phone Matheus Feliciano M.D. Primary Care Provider [phone] Encounter Details Date Type Department Care Team Description 02/08/2021 Clinical Communication Department of Matheus [facility], Prabhu Parmar, Clinic, in [place] [address] [address] [phone] Social History Tobacco Use Types Packs/Day Years [...] do you attend orthodox or Never 2021 quaker services? 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 PCP - General Family Medicine 01/09/[address] [place] [phone] documented as of this encounter
--- OUTSIDE RECORDS SUMMARY | 2022-04-29 07:35 | XMS_ITS | Encounter Summary ---
:1980 Author Organization [facility] Address [address] [place] [address] Care Team Providers Name Role Phone Matheus Feliciano M.D. Primary Care Provider [phone] Encounter Details Date Type Department Care Team Description 01/18/2021 Clinical Communication Department of Urology Don Mcneill in [facility] PAT Gan, R.NRafal [place] [address] [place] [phone] Social History Tobacco Use Types Packs/Day Years [...] do you attend worship or Never 2021 shinto services? 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 PCP - General Family Medicine 01/09/[address] [place] [address] PANKAJ Velez [phone] documented as of this encounter
--- OUTSIDE RECORDS SUMMARY | 2022-04-29 07:35 | XMS_ITS | Encounter Summary ---
:1980 Author Organization [facility] Address [address] [place] [address] Care Team Providers Name Role Phone Matheus Feliciano M.D. 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 Epilepsy Seizure Not Intractable Without Status Epilepticus (HCC) [address] [phone] Social History Tobacco Use Types Packs/Day Years [...] do you attend sabianism or Never 2021 sikh services? 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 - 01/22/2021 4:00 PM CDT SUBJECTIVE CHIEF COMPLAINT / REASON FOR VISIT Consult conducted via real-time audio/video technology by Donis Stuart M.D. in [facility] to the patient in her home. HISTORY [...] daily, which she remains on. EEG in [place] was normal. 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 PCP - General Family Medicine 01/09/[address] [place] [phone] documented as of this encounter
--- OUTSIDE RECORDS SUMMARY | 2022-04-29 07:35 | XMS_ITS | Encounter Summary ---
:1980 Author Organization [facility] Address [address] [place] [address] Care Team Providers Name Role Phone Matheus Feliciano M.D. Primary Care Provider [phone] Encounter Details Date Type Department Care Team Description 01/28/2021 Orders Only [facility] Matheus Issa I., [address] [place] [address] [facility] [phone] [place] [address] (Wo rk) Social History Tobacco [...] do you attend baptism or Never 2021 taoist services? 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 PCP - General Family Medicine 01/09/[address] [place] [address] PANKAJ Velez [phone] documented as of this encounter
--- OUTSIDE RECORDS SUMMARY | 2022-04-29 07:35 | XMS_ITS | Encounter Summary ---
:1980 Author Organization [facility] Address [address] [place] [address] Care Team Providers Name Role Phone Matheus Feliciano M.D. Primary Care Provider [phone] Reason for Referral Outpatient (Routine) - Closed Specialty Diagnoses / Procedures Referred By Contact Refer red To Contact Diagnoses Lithotripsy Extracoporeal Shock Wave Status Post Rebel Bernstein M.D. [facility] [place] [facility] Procedures [place] Fluoro Less Than 1 Hour [address] [place] [address] Referral ID Status Reason Start Date Expiration Date Visits Requ ested Visits Authorized [id number] Closed 02/06/2021 02/06/2022 1 1 Reason for Visit Outpatient (Routine) - Closed Specialty Diagnoses / Procedures Referred By Contact Refer red To Contact Diagnoses Lithotripsy Extracoporeal Shock Wave Status Post Rebel Bernstein M.D. [facility] [place] [facility] Procedures FL Fluoro Less Than 1 Hour [address] [place] [address] Referral ID Status Reason Start Date Expiration Date Visits Requ ested Visits Authorized [id number] Closed 02/06/2021 02/06/2022 1 1 Encounter Details Date Type Department Care Team Description 02/06/2021 Hospital Encounter Department of Mariella Bernstein Radiology in [place] Extracoporeal Shock [place], [place] 2199 Wave Status Post 2[address] [facility] [place] [phone] Social History Tobacco Use Types Packs/Day [...] do you attend voodoo or Never 2021 mu-ism services? 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 PCP - General Family Medicine 01/09/[address] [place] [address] [place] [phone] documented as of this encounter
--- OUTSIDE RECORDS SUMMARY | 2022-04-29 07:35 | XMS_ITS | Encounter Summary ---
:1980 Author Organization [facility] Address [address] [place] [address] Care Team Providers Name Role Phone Matheus Feliciano M.D. Primary Care Provider [phone] Reason for Visit Reason Comments Follow-up Encounter Details Date Type Department Care Team Description 02/09/2021 Nurse Triage Department of [facility], Jose M Lundy, Follow-up Medicine, [facility], [facility] in [address] [phone] Social History Tobacco Use Types Packs/Day [...] do you attend quaker or Never 2021 cheondoism services? 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 Again re-iterated that patient go to ED [...] on filedocumented in this encounter Care Teams Laminator Hand Relationship Specialty Start Date End Date Matheus Feliciano M.B.B.S., M.D. PCP - General Family Medicine 01/09/[address] [place] [address] [place] [phone] documented as of this encounter
--- OUTSIDE RECORDS SUMMARY | 2022-04-29 07:35 | XMS_ITS | Encounter Summary ---
:1980 Author Organization [facility] Address [address] [place] [address] Care Team Providers Name Role Phone Matheus Feliciano M.D. Primary Care Provider [phone] Encounter Details Date Type Department Care Team Description 02/14/2021 Hospital Encounter Department of Sushila Mcneill [facility] Medicine PAT Gan R.N . Ureteral in [address] [address] [place], [place] [phone] [address] (Work) [phone] Social History Tobacco Use Types Packs/Day Years [...] do you attend anabaptism or Never 2021 shinto services? 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 documented as of this encounter Medications [...] Address City/State/ZIP Code Phon e Number [facility]- [address] [place] [address] [facility] [place] [address] [facility] [address] Phosphorus Inorganic (02/14/2021 [...] Address City/State/ZIP Code Phon e Number [facility]- [address] [place] [address] [facility] [place], [place] [id number] [place] [address] documented in this encounter Visit Diagnoses Diagnosis Stone Kidney And Ureteral documented in this encounter Care Teams Oyster Bed Worker Relationship Specialty Start Date End Date Matheus Feliciano M.B.B.S., M.D. PCP - General Family Medicine 01/09/[address] [place] [address] PANKAJ Velez [address] documented as of this encounter
--- OUTSIDE RECORDS SUMMARY | 2022-04-29 07:35 | XMS_ITS | Encounter Summary ---
:1980 Author Organization [facility] Address [address] [place] [address] Care Team Providers Name Role Phone Matheus Feliciano M.D. Primary Care Provider [phone] Encounter Details Date Type Department Care Team Description 01/26/2021 Orders Only [facility] - Matheus Lezama I., [address] , [facility] [address] [place] [address] [place] [address] [place] [address] (Wo rk) Social History Tobacco [...] do you attend religion or Never 2021 caodaism services? 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 PCP - General Family Medicine 01/09/[address] [place] [address] APNKAJ Velez [address] documented as of this encounter
--- OUTSIDE RECORDS SUMMARY | 2022-04-29 07:35 | XMS_ITS | Encounter Summary ---
:1980 Author Organization [facility] Address [address] [place] [address] Care Team Providers Name Role Phone Matheus Feliciano M.D. Primary Care Provider [phone] Reason for Visit Reason Comments Rx Prior Authorization PA DENIED AJOVY 225 MG/1.5 M L Encounter Details Date Type Department Care Team Description 02/05/2021 Clinical Communication Department of Madhav Stuart Neurology in Donis Mccullough M.D. Authorization ([facility] [place], [address] [facility] DENIED AJOVY 225 [place], [place] MG/1.5 ML ) [address] [facility] [address] [place], [place] [phone] (Work) [phone] Social History Tobacco Use Types Packs/Day Years [...] do you attend confucianism or Never 2021 sikhism services? 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 PCP - General Family Medicine 01/09/[address] [place] [address] [place] [address] documented as of this encounter
--- OUTSIDE RECORDS SUMMARY | 2022-04-29 07:35 | XMS_ITS | Encounter Summary ---
:1980 Author Organization [facility] Address [address] [place] [address] Care Team Providers Name Role Phone Matheus Feliciano M.D. Primary Care Provider [phone] Reason for Visit Reason Comments Pre-op Exam kidney stone removal surgery on 02/06 with . Outpatient (Routine) - Closed Specialty Diagnoses / Procedures Referred By Contact Refer red To Contact Family Medicine Diagnoses Gastric Bypass Status Post Stone Kidney And Ureteral Sushila Mcneill, CEDR[facility] TANK FILLER, R.N. [address] [place] [address] Referral ID Status Reason Start Date Expiration Date Visits Requ ested Visits Authorized [id number] Closed 01/23/2021 01/23/2022 1 1 Encounter Details Date Type Department Care Team Description 01/29/2021 Office Visit Department of [facility] Matheus Feliciano Yana lorrie Bypass Status Post; Medicine, Negin ParmarSRafal, Stone [facility], in [place] [address] [facility] [address] [place] [phone] Social History Tobacco Use [...] do you attend yazidi or Never 2021 evangelical services? 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 Type of [...] Friends and Family: Patient refused ??? Attends Hoahaoism Services: Patient refused ??? Active Member of [...] Ureteral documented in this encounter Care Teams Molder Shoulder Pad Relationship Specialty Start Date End Date Matheus Feliciano M.B.B.S., M.D. PCP - General Family Medicine 01/09/[address] [place] [address] [place] [address] documented as of this encounter
--- OUTSIDE RECORDS SUMMARY | 2022-04-29 07:35 | XMS_ITS | Encounter Summary ---
:1980 Author Organization [facility] Address [address] [place] [address] Care Team Providers Name Role Phone Matheus Feliciano M.D. Primary Care Provider [phone] Encounter Details Date Type Department Care Team Description 01/17/2021 Clinical Communication Department of [facility], [place] Farah M.D. [facility], in [address] [address] [place] [address] [facility] [phone] Social History Tobacco Use Types Packs/Day Years [...] do you attend islam or Never 2021 latter-day services? 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 - 01/17/2021 6:30 PM CDT We reviewed the urinalysis with the patient and her . This did show findings consistent with a kidney stone. We initiated therapy with Flomax to assist with passing of the stone. [place] provided for pain relief. Gagan Tilley M.D. [...] can't get it to work. Please call [phone] documented in this encounter Plan of Treatment Not on filedocumented as of this encounter Visit Diagnoses Not on filedocumented in this encounter Care Teams Supervisor Clam Bed Relationship Specialty Start Date End Date Matheus Feliciano M.B.B.S., M.D. PCP - General Family Medicine 01/09/[address] [place] [address] [place] [address] documented as of this encounter
--- OUTSIDE RECORDS SUMMARY | 2022-04-29 07:35 | XMS_ITS | Encounter Summary ---
:1980 Author Organization [facility] Address [address] [place] [address] Care Team Providers Name Role Phone Matheus Feliciano M.D. Primary Care Provider [phone] Encounter Details Date Type Department Care Team Description 02/04/2021 Clinical Communication Department of [facility], Otorhinolaryngology in [place], [place] P.A.-C. [address] [place] [address] [phone] [place] [address] Social History Tobacco Use Types Packs/Day Years [...] do you attend restorationist or Never 2021 scientology services? 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 Costa in [place] office to review these options. Some people also sleep with nasal cones, you can get them [id number] or off of [employer] and they help [...] of her nasal passageway on 01/29/21 at [facility]. Patient stated that Trista Arroyo [...] documented as of this encounter Care Teams Highway Administrative Engineer Relationship Specialty Start Date End Date Matheus Feliciano M.B.B.S., M.D. PCP - General Family Medicine 01/09/[address] [place] [phone] documented as of this encounter
--- OUTSIDE RECORDS SUMMARY | 2022-04-29 07:35 | XMS_ITS | Encounter Summary ---
:1980 Author Organization [facility] Address [address] [place] [address] Care Team Providers Name Role Phone Matheus Feliciano M.D. Primary Care Provider [phone] Reason for Referral Medication Prior Authorization - Closed Specialty Diagnoses / Procedures Referred By Contact Refer red To Contact Sushila Mcneill APRN, R.NRafal [address] [address] Referral ID Status Reason Start Date Expiration Date Visits Requ ested Visits Authorized [id number] Closed 1 1 utpatient (Routine) - Closed Specialty Diagnoses / Procedures Referred By Contact Refer red To Contact Urology Sushila Mcneill APRN, R.NRafal [facility] [address] [place] [phone] Referral ID Status Reason Start Date Expiration Date Visits Requ ested Visits Authorized [id number] Closed 01/23/2021 01/23/2022 1 1 utpatient (Routine) - Closed Specialty Diagnoses / Procedures Referred By Contact Refer red To Contact Family Medicine Diagnoses Gastric Bypass Status Post Stone Kidney And Ureteral Sushila Mcneill [facility] PAT, R.N. [address] [place] [address] Referral ID Status Reason Start Date Expiration Date Visits Requ ested Visits Authorized [id number] Closed 01/23/2021 01/23/2022 1 1 Reason for Visit Reason Comments Nephrolithiasis not passed Encounter Details Date Type Department Care Team Description 01/23/2021 Office Visit Department of Sushila Mcneill By pass Status Post (Primary Dx); Urology in [place] APRN, R. N. Hydronephrosis With Renal And Ureteral C alculous Obstruction; [place] 2199 [facility]reteral [address] [place] [phone] Social History Tobacco Use Types Packs/Day Years [...] do you attend buddhist or Never 2021 sikh services? 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 documented as of this encounter Last Filed [...] Name Type Priority Associated Diagnoses [facility] Outpatient Referral Routine Gastric Bypass Expected: consult (clinic) Status Post 01/23/2021 Stone Kidney And (Approximat e), Ureteral Expires: 01/24/2024 Urology Post Op Outpatient Referral Routine Expec kathleen: (clinic) 02/13/2021 (Approximate), Expires: 01/24/2024 documented as of this encounter Results SARS Coronavirus-2 RNA, V Asymptomatic (02/03/2021 11:50 AM CDT) [facility] Method Time Signature SARS-CoV-2 Swab, 02/04/2021 MKTO [...] pe rformed using the Aptima SARS-CoV-2 assay ([employer] on the Skiipis tem under emergency use authorization (EUA) by the U.S. Food and Drug Administ ration. Fact sheets for this EUA assay can be fo und at the following links: For Healthcare Providers: https://www.Annexon a.gov/media/517823/download For Patients: https://www.fda.gov/media/ 734277/download Specimen Anatomical Collection Method Collection Time Receive d Time (Source) Location / / Volume Laterality Varies 02/03/2021 11:50 02/03/2021 (Nasopharynx) AM CDT 11:09 PM CDT Sushila Mcneill APRN, R.N. LAB MICROBIOLOGY - GENERA L ORDERABLES Performing Organization Address City/[facility]/ZIP Code Phon e Number [facility]- [address] [place] [address] [place] [address] documented in this encounter Visit Diagnoses Diagnosis Gastric Bypass Status Post - Primary Hydronephrosis With Renal And Ureteral C alculous Obstruction Stone Kidney And Ureteral documented in this encounter Care Teams Waiter/Waitress First Class Relationship Specialty Start Date End Date Matheus Feliciano M.B.B.S., MDonald. PCP - General Family Medicine 01/09/[address] [place] [address] [place] [address] documented as of this encounter
--- OUTSIDE RECORDS SUMMARY | 2022-04-29 07:35 | XMS_ITS | Encounter Summary ---
:1980 Author Organization [facility] Address [address] [place] [address] Care Team Providers Name Role Phone Matheus Feliciano M.D. Primary Care Provider [phone] Reason for Visit Reason Comments Advice Only Appointment Request (Routine) - Closed Specialty Diagnoses / Procedures Referred By Contact Refer red To Contact Otorhinolaryngology Referral ID Status Reason Start Date Expiration Date Visits Requ ested Visits Authorized [id number] Closed 01/10/2021 01/10/2022 1 1 Encounter Details Date Type Department Care Team Description 01/21/2021 Office Visit Department of Dina, Trista Obstruction N mary (Primary Dx); Otorhinolaryngology in L, P.A.-C . Deviation Nasal Septal; [place], [place] [address] Rhinitis Chronic [address] [place] [address] [place], [place] [phone] [address] Social History Tobacco Use Types Packs/Day [...] do you attend adventist or Never 2021 gnosticism services? 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 I will review the scan and call herwith results thereafter. She is interested in surgery if I think it would help her nasal airway significantly. Trista Arroyo P.A.-C. documented in this encounter Plan of Treatment Not on filedocumented as of this encounter Visit Diagnoses Diagnosis Obstruction Nasal - Primary Deviation Nasal Septal Rhinitis Chronic documented in this encounter Care Teams Purchasing Manager Relationship Specialty Start Date End Date Matheus Feliciano M.B.B.S., M.D. PCP - General Family Medicine 01/09/[address] [place] [phone] documented as of this encounter
--- OUTSIDE RECORDS SUMMARY | 2022-04-29 07:35 | XMS_ITS | Encounter Summary ---
:1980 Author Organization [facility] Address [address] [place] [address] Care Team Providers Name Role Phone Matheus Feliciano M.D. Primary Care Provider [phone] Reason for Visit Reason Comments medication options Encounter Details Date Type Department Care Team Description 02/04/2021 Clinical Communication Department of Sade, ruma cation claire Neurology in Donis Mccullough M.D. [place], [address] [place] [address] [place] [address] [place], [place] [phone] (Work) [phone] Social History Tobacco Use Types Packs/Day Years [...] you attend oriental orthodox or Never 2021 christian services? 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 - 02/05/2021 3:49 PM CDT [...] documented as of this encounter Care Teams Overnight Associate Relationship Specialty Start Date End Date Matheus Feliciano M.B.B.S., M.D. PCP - General Family Medicine 01/09/[address] [place] [address] Rishi, PANKAJ [phone] documented as of this encounter
--- OUTSIDE RECORDS SUMMARY | 2022-04-29 07:35 | XMS_ITS | Encounter Summary ---
:1980 Author Organization [facility] Address [address] [place] [address] Care Team Providers Name Role Phone Matheus Feliciano M.D. Primary Care Provider [phone] Encounter Details Date Type Department Care Team Description 01/28/2021 Orders Only Pharmacy Prior Auth RO Elsewhere, Pcp [phone] Social History Tobacco Use Types Packs/Day Years [...] do you attend yarsanism or Never 2021 restorationism services? 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 PCP - General Family Medicine 01/09/[address] [place] [address] [place] [phone] documented as of this encounter
--- OUTSIDE RECORDS SUMMARY | 2022-04-29 07:35 | XMS_ITS | Encounter Summary ---
:1980 Author Organization [facility] Address [address] [place] [address] Care Team Providers Name Role Phone Matheus Feliciano M.D. Primary Care Provider [phone] Encounter Details Date Type Department Care Team Description 02/07/2021 Clinical Communication Department of Urology Rebel Bernstein in [place], [place] M.D. [address] [place] [address] [place], [place] [phone] Social History Tobacco Use Types Packs/Day Years [...] do you attend congregation or Never 2021 gnosticist services? 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 Please advise [phone] [place], documented in this encounter Plan of Treatment Not on filedocumented as of this encounter Visit Diagnoses Not on filedocumented in this encounter Care Teams Building Construction Professor Relationship Specialty Start Date End Date Matheus Feliciano M.B.B.S., MDonald. PCP - General Family Medicine 01/09/[address] [place] [address] PANKAJ Velez [phone] documented as of this encounter
--- OUTSIDE RECORDS SUMMARY | 2022-04-29 07:35 | XMS_ITS | Encounter Summary ---
:1980 Author Organization [facility] Address [address] [place] [address] Care Team Providers Name Role Phone Matheus Feliciano M.D. Primary Care Provider [phone] Reason for Visit Reason Comments Med Refill Encounter Details Date Type Department Care Team Description 02/13/2021 Refill Department of Family Medicine, Gagan Mcpherson M.D. Med Refill [facility], in [place], [place] [address] [address] [facility] [place] [address] [facility] [phone] Social History Tobacco Use Types Packs/Day Years [...] do you attend catholic or Never 2021 holiness services? 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 PCP - General Family Medicine 01/09/[address] [place] [address] [place] [address] documented as of this encounter
--- OUTSIDE RECORDS SUMMARY | 2022-04-29 07:35 | XMS_ITS | Encounter Summary ---
:1980 Author Organization [facility] Address [address] [place] [address] Care Team Providers Name Role Phone Matheus Feliciano M.D. Primary Care Provider [phone] Encounter Details Date Type Department Care Team Description 02/01/2021 Orders Only [facility] Matheus Issa I., [address] [place] [address] [facility] [phone] [place] [address] (Wo rk) Social History Tobacco [...] do you attend yazidi or Never 2021 sikh services? 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 PCP - General Family Medicine 01/09/[address] [place] [address] PANKAJ Velez [phone] documented as of this encounter
--- OUTSIDE RECORDS SUMMARY | 2022-04-29 07:36 | XMS_ITS | Encounter Summary ---
:1980 Author Organization [facility] Address [address] [place] [address] Care Team Providers Name Role Phone Matheus Feliciano M.D. Primary Care Provider [phone] Reason for Visit Reason Comments Urinary Urgency Urinary Frequency Outpatient (Routine) - Closed Specialty Diagnoses / Procedures Referred By Contact Refer red To Contact Urology Sushila Mcneill APRN RIsiah [address] [address] Referral ID Status Reason Start Date Expiration Date Visits Requ ested Visits Authorized [id number] Closed 09/24/2020 09/24/2021 1 1 Encounter Details Date Type Department Care Team Description 11/26/2020 Office Visit Department of Urology Sushila Mcneill, Urgency Urinary in [place] R[place]iah (Primary Dx) [address] [address] [phone] Social History Tobacco Use Types Packs/Day Years [...] Date Recorded Female 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 PCP - General Family Medicine 01/09/[address] [place] [phone] documented as of this encounter
--- OUTSIDE RECORDS SUMMARY | 2022-04-29 07:36 | XMS_ITS | Encounter Summary ---
:1980 Author Organization [facility] Address [address] [place] [address] Care Team Providers Name Role Phone Matheus Feliciano M.D. Primary Care Provider [phone] Reason for Visit Reason Comments Follow-up ER visit 01/09 Other constipation Appointment Request (Routine) - Closed Specialty Diagnoses / Procedures Referred By Contact Refer red To Contact Family Medicine Referral ID Status Reason Start Date Expiration Date Visits Requ ested Visits Authorized [id number] Closed 01/10/2021 01/10/2022 1 1 Encounter Details Date Type Department Care Team Description 01/16/2021 Office Visit Department of Family Altrichter, Epileps y Seizure Not Intractable Without Status Epilepticus (HCC) (Primary Dx); Medicine, Krysta Farah M.D. Pancreatitis Personal History; Clinic, in [place] [address] [address] HOLLOWAY Nephrolithiasis; [place], [place] Gastric Bypass Status Post; [address]199 [phone] Leukocytosis [place], [place] [phone] [address] (Work) [phone] Social History Tobacco Use Types Packs/Day Years [...] do you attend gnosticism or Never 2021 pentecostalism services? 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 - 01/16/2021 10:00 AM CDT SUBJECTIVE CHIEF COMPLAINT / REASON FOR VISIT Patient presents for evaluation of Follow-up (ER visit 01/09) and Other (constipation). HISTORY OF PRESENT ILLNESS Gricelda Lamcalf is a 40 y.o. female who is here in follow-up of recent emergency department visit at [address] 1. Seizure disorder Patient was in [...] left CVA. Mild percussion tenderness. With a rn military present we did a vaginal and rectal [...] Organization Address City/State/ZIP Code Phon e Number [facility]- [address] [place] [address] [place] [address] System in [place] [address] [place] [address] (ABNORMAL) Urinalysis with Microscopic: Urine, Midstream (01/17/2021 [...] 8.0 01/17/2021 12:59 PM CDT FB60 Specific Viola 1.015 1.001 - 1.035 01/17/2021 12:59 PM [...] Organization Address City/State/ZIP Code Phon e Number [facility]- [address] [place] [address] [facility] [place] [address] System in [address] (ABNORMAL) CBC with Differential, Blood (01/17/2021 12:07 PM CDT) [facility] gist Method Time Signature Hemoglobin 13.5 [...] Address City/State/ZIP Code Phon e Number [address] [place] [address] [facility] [place] [address] DX Chest AP or PA [...] Organization Address City/State/ZIP Code Phon e Number [facility]- [address] [place] [address] [place] [address] System in [place] [address] (ABNORMAL) CBC with Differential, Blood (01/16/2021 10:44 AM CDT) [facility] Method Time Signature Hemoglobin 13.9 11.6 - [...] Organization Address City/State/ZIP Code Phon e Number [facility]- [address] [place] [address] [place] [address] System in [place] [address] [facility] Comprehensive Metabolic Panel (01/16/2021 10:44 [...] CDT eGFR-Black/Afric >90 >=60 01/16/2021 OWAT an Slovak mL/min/BSA 11:13 AM CDT Comment: ----ADDITIONAL INFORMATION---- [...] Organization Address City/State/ZIP Code Phon e Number [facility]- [address] [place] [address] [facility] [place] [place] [address] System in [place] [address] [facility] documented in this encounter Visit Diagnoses Diagnosis Epilepsy Seizure Not Intractable Without Status Epilepticus (HCC) - Primary Pancreatitis Personal History Nephrolithiasis Gastric Bypass Status Post Leukocytosis Leukocytosis documented in this encounter Care Teams Concrete Vibrator Operator Relationship Specialty Start Date End Date Matheus Feliciano M.B.BRafalSRafal, Jose. PCP - General Family Medicine 01/09/[address] [place] [address] [place] [phone] documented as of this encounter
--- OUTSIDE RECORDS SUMMARY | 2022-04-29 07:36 | XMS_ITS | Encounter Summary ---
:1980 Author Organization [facility] Address [address] [place] [address] Care Team Providers Name Role Phone Matheus Feliciano M.D. Primary Care Provider [phone] Encounter Details Date Type Department Care Team Description 01/10/2021 Clinical Communication Department of Urology Don Mcneill in [facility] PAT Gan, R.NRaafl [place] [address] [place] [phone] Social History Tobacco Use Types Packs/Day Years [...] do you attend scientologist or Never 2021 scientologist services? 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 - 01/11/2021 3:34 PM CDT Spoke with patient and gave her the recommendations. Patient stated she has not noticed passing any stones yet. Patient does not have a strainer either and lives in [place] and today, Urology is not in clinic in [place] today. Nurse stated we are there on Thursday01/14/21 and can have a strainer placed at the desk for her to pepper picker later on Thursday. Patient verbalized understandings. Nurse [...] on filedocumented in this encounter Care Teams Multi Operation Machine Operator Relationship Specialty Start Date End Date Matheus Feliciano M.B.B.S., M.D. PCP - General Family Medicine 01/09/[address] [place] [address] [place] [address] documented as of this encounter
--- OUTSIDE RECORDS SUMMARY | 2022-04-29 07:36 | XMS_ITS | Encounter Summary ---
:1980 Author Organization [facility] Address [address] [place] [address] Care Team Providers Name Role Phone Matheus Feliciano M.D. Primary Care Provider [phone] Encounter Details Date Type Department Care Team Description 01/17/2021 Hospital Encounter Department of Radiology Haylierichter Gagan, Leukocytosis in [place] M.D. [address] [place] [address] [place], [place] [phone] Social History Tobacco Use Types Packs/Day [...] do you attend sabianist or Never 2021 latter day services? 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 PCP - General Family Medicine 01/09/[address] [place] [address] [place] [phone] documented as of this encounter
--- OUTSIDE RECORDS SUMMARY | 2022-04-29 07:36 | XMS_ITS | Encounter Summary ---
:1980 Author Organization [facility] Address [address] [place] [address] Care Team Providers Name Role Phone Matheus Feliciano M.D. Primary Care Provider [phone] Reason for Referral Specialty Diagnoses / Procedures Referred By Contact Refer red To Contact [address] [address] Referral ID Status Reason Start Date Expiration Date Visits Requ ested Visits Authorized Encounter Details Date Type Department Care Team Description 11/22/2020 Immunization Department of Chica Knowles [place] unter For COVID-19 Medicine, Carlos Mo M.D. Vaccine Immunization Building, in [place] [address] [facility] (Primary Dx) [address] [address] [place], [place] [phone] (Work) [phone] Social History Tobacco Use Types Packs/Day Years [...] do you attend religion or Never 2021 christian services? 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 PCP - General Family Medicine 01/09/[address] [place] [address] [place] [phone] documented as of this encounter
--- OUTSIDE RECORDS SUMMARY | 2022-04-29 07:36 | XMS_ITS | Encounter Summary ---
:1980 Author Organization [facility] Address [address] [place] [address] Care Team Providers Name Role Phone Matheus Feliciano M.D. Primary Care Provider [phone] Encounter Details Date Type Department Care Team Description 09/21/2020 Orders Only [facility] PRESSURE SEALER AND TESTER, R.N. [address] [place] [address] [place] [address] [phone] (Wo rk) Social History Tobacco Use Types [...] do you attend lutheran or Never 2021 mu-ism services? 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 PCP - General Family Medicine 01/09/[address] [place] [address] [place] [phone] documented as of this encounter
--- OUTSIDE RECORDS SUMMARY | 2022-04-29 07:36 | XMS_ITS | Encounter Summary ---
:1980 Author Organization [facility] Address [address] [place] [address] Care Team Providers Name Role Phone Matheus Feliciano M.D. Primary Care Provider [phone] Reason for Visit Reason Comments Med Refill Encounter Details Date Type Department Care Team Description 10/10/2020 Refill Department of Family Medicine, Gagan Mcpherson M.D. Med Refill [facility], in [address] [place] [address] [place] [address] [place] [address] [phone] Social History Tobacco Use Types Packs/Day Years [...] do you attend worship or Never 2021 gnosticist services? 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 PCP - General Family Medicine 01/09/[address] [place] [address] [place] [phone] documented as of this encounter
--- OUTSIDE RECORDS SUMMARY | 2022-04-29 07:36 | XMS_ITS | Encounter Summary ---
:1980 Author Organization [facility] Address [address] [place] [address] Care Team Providers Name Role Phone Matheus Feliciano M.D. Primary Care Provider [phone] Encounter Details Date Type Department Care Team Description 09/14/2020 Hospital Encounter Department of Brigette Cardona, Preoper ative Exam Laboratory Medicine in [address] [phone] Social History Tobacco Use Types Packs/Day Years [...] do you attend presybeterian or Never 2021 shinto services? 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 documented in this encounter Results Hemoglobin (09/14/2020 12:35 PM TALENT DIRECTOR) athologist Signature Hemoglobin 14.0 11.6 - 15.0 09/14/2020 FB60 g/dL 1:02 PM TALENT DIRECTOR Specimen Anatomical Collection Method Collection Time Receive d Time (Source) Location / / Volume Laterality Blood (Blood, 09/14/2020 12:35 09/14/2020 Venous) PM TALENT DIRECTOR 12:42 PM TALENT DIRECTOR Brigette Cardona APRN, C.N.P. LAB BLOOD ADD-ON Performing Organization Address City/State/ZIP Code Phon e Number [address] [place] [address] [facility] [place] [address] System [address] documented in this encounter Visit Diagnoses Diagnosis Preoperative Exam documented in this encounter Care Teams Fixture Maker Relationship Specialty Start Date End Date Matheus Feliciano M.B.B.S., M.D. PCP - General Family Medicine 01/09/[address] [place] [phone] documented as of this encounter
--- OUTSIDE RECORDS SUMMARY | 2022-04-29 07:36 | XMS_ITS | Encounter Summary ---
:1980 Author Organization [facility] Address [address] [place] [address] Care Team Providers Name Role Phone Matheus Feliciano M.D. Primary Care Provider [phone] Encounter Details Date Type Department Care Team Description 01/16/2021 Hospital Encounter Department of Altrichter, Pancreat itis Personal Laboratory Medicine [place] History in [address] [address] [place], [place] [phone] [address] (Work) [phone] Social History Tobacco Use Types Packs/Day Years [...] do you attend protestant or Never 2021 muslim services? 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 documented as of this encounter Medications at [...] Organization Address City/State/ZIP Code Phon e Number [facility]- [address] [place] [address] [place] [address] System in [place] [address] (ABNORMAL) CBC with [...] City/State/ZIP Code Phon e Number [facility]- [address] [place] [address] [place] [address] System in [place] [address] [facility] Comprehensive Metabolic Panel (01/16/2021 [...] CDT eGFR-Black/Afric >90 >=60 01/16/2021 OWAT an Emirati mL/min/BSA 11:13 AM CDT Comment: ----ADDITIONAL INFORMATION---- [...] City/State/ZIP Code Phon e Number [facility]- [address] [place] [address] [place] [address] System in [place] [address] documented in this encounter Visit Diagnoses Diagnosis Pancreatitis Personal History documented in this encounter Care Teams Podopediatrician Relationship Specialty Start Date End Date Matheus Feliciano M.B.B.S., M.D. PCP - General Family Medicine 01/09/[address] [place] [address] [place] [phone] documented as of this encounter
--- OUTSIDE RECORDS SUMMARY | 2022-04-29 07:36 | XMS_ITS | Encounter Summary ---
:1980 Author Organization [facility] Address [address] [place] [address] Care Team Providers Name Role Phone Matheus Feliciano M.D. Primary Care Provider [phone] Encounter Details Date Type Department Care Team Description 01/17/2021 Hospital Encounter Department of Laboratory Gagan Tilley, Leukocytosis Medicine in [place] [address] [place] [phone] Social History Tobacco Use Types Packs/Day Years [...] do you attend sikhism or Never 2021 hinduism services? 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 PCP - General Family Medicine 01/09/[address] [place] [phone] documented as of this encounter
--- OUTSIDE RECORDS SUMMARY | 2022-04-29 07:36 | XMS_ITS | Encounter Summary ---
:1980 Author Organization [facility] Address [address] [place] [address] Care Team Providers Name Role Phone Matheus Feliciano M.D. Primary Care Provider [phone] Reason for Visit Reason Comments COVID Inquiry Encounter Details Date Type Department Care Team Description 01/16/2021 Clinical Communication Department of [facility] Matheus Feliciano Medicine, Prabhu Parmar, Clinic, in [place] [address] [facility] [address] [place] [address] [phone] Social History Tobacco Use Types Packs/Day Years [...] do you attend gnosticist or Never 2021 sikh services? 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/2021 7:35 PM FELT HANGER documented as of this encounter Miscellaneous Notes [...] appointment being requested?: Less than 14 days Ranger In the past 14 days are any [...] sending patient for testing in [facility] or [facility], route encounter to the correct testing pool. documented in this encounter Plan of Treatment Not on filedocumented as of this encounter Visit Diagnoses Not on filedocumented in this encounter Care Teams Satellite Installation Technician Relationship Specialty Start Date End Date Matheus Feliciano M.B.BZan, Jose. PCP - General Family Medicine 01/09/[address] [place], [place] [address], [place] [phone] documented as of this encounter
--- OUTSIDE RECORDS SUMMARY | 2022-04-29 07:36 | XMS_ITS | Encounter Summary ---
:1980 Author Organization [facility] Address [address] [place] [address] Care Team Providers Name Role Phone Matheus Feliciano M.D. Primary Care Provider [phone] Encounter Details Date Type Department Care Team Description 10/08/2020 Hospital Encounter Department of Rebel Bernstein Hemat uria Gross; Laboratory Medicine in M.[facility]. [facility] [place], [place] [address] [address] [phone] Social History Tobacco Use Types Packs/Day Years [...] do you attend hoahaoism or Never 2021 advent services? 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 BACTERIAL CULTURE, Routine 10/08/2020 12:52 PM Hematuria Gross Results for this AEROBIC + SUSC, PRODUCTION STAFF WORKER [facility] procedure are in URINE the results section. documented in this encounter Results Cytology Non-REPAIR TECH (Scheduled) (10/08/2020 12:52 PM PRODUCTION STAFF WORKER) Component Value Ref Test Analysis Performed At [facility] gist Range Method Time Signature 10/09/2020 [facility] 11:49 AM PRODUCTION STAFF WORKER Fixative 50% 10/09/2020 [facility] 11:49 AM PRODUCTION STAFF WORKER Report Irena Bhandari MD 10/09/2020 [facility] electronically I verify that I have examined all relevant slides/ma terials 11:49 AM signed by for the specimen(s) and rendered or confirmed the diagnosis. PRODUCTION STAFF WORKER Gross Description 100 ml of 10/09/2020 [facility] clear yellow 11:49 AM fluid PRODUCTION STAFF WORKER received. Collection clean void 10/09/2020 [facility] Procedure 11:49 AM PRODUCTION STAFF WORKER Source A. Urine, 10/09/2020 [facility] Clean Catch, 11:49 AM voided PRODUCTION STAFF WORKER Clinical History unknown 10/09/2020 [facility] 11:49 AM PRODUCTION STAFF WORKER Interpretation A. 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 11:49 A M PRODUCTION STAFF WORKER Specimen Anatomical Collection Method Collection Time Receive d Time (Source) Location / / Volume Laterality Varies (Urine, 10/08/2020 12:52 8:14 Clean Catch) PM PRODUCTION STAFF WORKER AM PRODUCTION STAFF WORKER Narrative This result has an attachment that is no t available. Rebel Bernstein M.D. LAB SURG PATH ORDERABLES Performing Organization Address [facility]/ZIP [facility] Phon e Number [facility]- [address] [place] [address] [place] [address] [facility] Cytology [address] [place] [address] Bacterial Culture, Aerobic + Susc, Urine (10/08/2020 12:52 PM PRODUCTION STAFF WORKER) [facility] gist Method Time Signature Urine Culture No growth 10/09/2020 [facility] after 1 day 4:39 PM PRODUCTION STAFF WORKER of incubation. Specimen Anatomical Collection Method Collection Time Receive d Time (Source) Location / / Volume Laterality Urine (Urine, 10/08/2020 12:52 10/08/2020 6:59 Midstream) PM PRODUCTION STAFF WORKER PM PRODUCTION STAFF WORKER Comment: Specimen Source Site: Urine Rebel Bernstein M.D. LAB MICROBIOLOGY - GENERAL O RDERABLES Performing Organization Address City/[facility]/ZIP [facility] Phon e Number [facility]- [address] [place] [address] [place] [address] [facility] in [address] documented in this encounter Visit Diagnoses Diagnosis Hematuria Gross [facility] documented in this encounter Care Teams Senior Sales Assistant Relationship Specialty Start Date End Date Matehus Felicinao M.B.BRafalSRafal, MDonald. PCP - General Family Medicine 01/09/[address] [place] [phone] documented as of this encounter
--- OUTSIDE RECORDS SUMMARY | 2022-04-29 07:36 | XMS_ITS | Encounter Summary ---
:1980 Author Organization [facility] Address [address] [place] [address] Care Team Providers Name Role Phone Matheus Feliciano M.D. Primary Care Provider [phone] Encounter Details Date Type Department Care Team Description 09/21/2020 Clinical Communication Department of Urology Don Mcneill in [facility] PAT Gan, R.NRafal [place] [address] [place] [phone] Social History Tobacco Use Types Packs/Day Years [...] do you attend congregation or Never 2021 evangelical services? 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 R AND HARBOR SOUNDINGS GROUP LEADER Telephone Encounter - Sushila Mcneill APRN, C.N.P. - 09/21/2020 4:49 PM RIVER [employer] HAR[employer] SOUNDINGS GROUP LEADER Five day course of Bactrim is sent to her pharmacy. She should plan to keep her appointment on Thursday. If her symptoms worsen over the weekend she should call the nurse line or possibly be seen at [facility]. R AND HARBOR SOUNDINGS GROUP LEADER Telephone Encounter - Ela Fajardo L.P.N. - [...] and call her back with any recommendations. R AND HARBOR SOUNDINGS GROUP LEADER documented in this encounter Plan of Treatment Not on filedocumented as of this encounter Visit Diagnoses Not on filedocumented in this encounter Care Teams Metal Filer Relationship Specialty Start Date End Date Matheus Feliciano M.B.B.S., M.D. PCP - General Family Medicine 01/09/[address] [place] [phone] documented as of this encounter
--- OUTSIDE RECORDS SUMMARY | 2022-04-29 07:36 | XMS_ITS | Encounter Summary ---
:1980 Author Organization [facility] Address [address] [place] [address] Care Team Providers Name Role Phone Matheus Feliciano M.D. Primary Care Provider [phone] Encounter Details Date Type Department Care Team Description 01/17/2021 Hospital Encounter Department of Altrichter, Nephroli thiasis; Laboratory Medicine in Jose Farah Leukocytosis [place], [place] [address] [place] [address] [phone] Social History Tobacco Use Types Packs/Day Years [...] do you attend orthodoxy or Never 2021 restorationist services? 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/2021 7:35 PM DIRECTOR PLANS documented as of this encounter Medications at [...] Code Phon e Number [facility]- [facility] [place] [address] [place] [address] System in [place] [address] [place] [address] (ABNORMAL) Urinalysis with Microscopic: Urine, Midstream (01/17/2021 [...] 8.0 01/17/2021 12:59 PM CDT FB60 Specific Porter 1.015 1.001 - 1.035 01/17/2021 12:59 PM [...] Address City/State/ZIP Code Phon e Number [address] [place] [address] [facility] [address] [place] [address] System [address] documented in this encounter Visit Diagnoses Diagnosis Nephrolithiasis Leukocytosis documented in this encounter Care Teams Department Operations Manager Relationship Specialty Start Date End Date Matheus Feliciano M.B.B.S., M.D. PCP - General Family Medicine 01/09/[address] [place] [address] [place] [phone] documented as of this encounter
--- OUTSIDE RECORDS SUMMARY | 2022-04-29 07:36 | XMS_ITS | Encounter Summary ---
:1980 Author Organization [facility] Address [address] [place] [address] Care Team Providers Name Role Phone Matheus Feliciano M.D. Primary Care Provider [phone] Encounter Details Date Type Department Care Team Description 09/16/2020 Lab Department of [facility] Sushila Mcneill Stenosis Meatal; Medicine, [facility] Shruthi STEWART [facility], in [address] [place] [phone] [place] [address] [place] [address] [facility] [phone] Social History Tobacco Use Types Packs/Day Years [...] do you attend judaism or Never 2021 temple services? 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/2021 7:35 PM ADMINISTRATION PROFESSIONAL documented as of this encounter Plan of Treatment Not on filedocumented as of this encounter Procedures Procedure Name Priority Date/Time Associated Diagnosis Comme nts SARS CORONAVIRUS-2 Routine 09/16/2020 4:43 PM Stenosis M eatal Results for this RNA, V ADMINISTRATION PROFESSIONAL Hematuria procedure are i n the results section. documented in this encounter Results SARS Coronavirus-2 RNA, V Asymptomatic (09/16/2020 4:43 PM ADMINISTRATION PROFESSIONAL) [facility] gist Method Time Signature SARS-CoV-2 Swab, 09/17/2020 MKTO Specimen Nasopharynx 4:27 AM ADMINISTRATION PROFESSIONAL Source SARS CoV-2 Undetected Undetected 09/17/2020 [facility] RNA, TMA 4:27 AM ADMINISTRATION PROFESSIONAL Comment: SARS-CoV-2 RNA absent. This result does not rule out COVID-19 in the patient, as the sensitivity of the test depends o n the timing of the specimen collection and the quality of the specim en. Result should be correlated with patient's history and clinical presentat ion. ----ADDITIONAL INFORMATION---- This molecular amplification test was pe rformed using the Aptima SARS-CoV-2 assay ([employer] on the Wintegras tem under emergency use authorization (EUA) by the U.S. Food and Drug Administ ration. Fact sheets for this EUA assay can be fo und at the following links: For Healthcare Providers: https://www.fd a.gov/media/358979/download For Patients: https://www.fda.gov/media/ 535631/download Specimen Anatomical Collection Method Collection Time Receive d Time (Source) Location / / Volume Laterality Varies 09/16/2020 4:43 PM (Nasopharynx) ADMINISTRATION PROFESSIONAL 10:53 PM ADMINISTRATION PROFESSIONAL Sushila Mcneill APRN, R.N. LAB MICROBIOLOGY - GENERA L ORDERABLES Performing Organization Address City/State/ZIP Code Phon e Number [facility]- [address] [place] [address] [place] [address] System in [place] [address] [place] [address] documented in this encounter Visit Diagnoses Diagnosis Stenosis Meatal Hematuria documented in this encounter Additional Health Concerns Infection Onset Date Last Indicated Resolved Time COVID19 Pending 09/15/2020 09/16/2020 09/17/2020 4:27 AM ADMINISTRATION PROFESSIONAL documented as of this encounter Care Teams Beauty Culturist Relationship Specialty Start Date End Date Matheus Feliciano M.B.BRafalSJose Lyles. PCP - General Family Medicine 01/09/[address] [place] [phone] documented as of this encounter
--- OUTSIDE RECORDS SUMMARY | 2022-04-29 07:36 | XMS_ITS | Encounter Summary ---
:1980 Author Organization [facility] Address [address] [place] [address] Care Team Providers Name Role Phone Matheus Feliciano M.D. Primary Care Provider [phone] Reason for Visit Reason Comments Med Refill Encounter Details Date Type Department Care Team Description 01/09/2021 Refill Department of Urology in Rebel Rodriguez M.D. Med Refill [place], [place] [address] [place] [address] [place] [address] [phone] Social History Tobacco Use Types Packs/Day Years [...] do you attend restoration or Never 2021 anabaptist services? 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/2021 7:35 PM CHAPERON documented as of this encounter Plan of Treatment Not on filedocumented as of this encounter Visit Diagnoses Not on filedocumented in this encounter Care Teams Supervisory Civil Engineer Relationship Specialty Start Date End Date Matheus Felicaino M.B.BRafalSRafal, MDonald. PCP - General Family Medicine 01/09/[address] [place] [address] [place] Velez [address] documented as of this encounter
--- OUTSIDE RECORDS SUMMARY | 2022-04-29 07:36 | XMS_ITS | Encounter Summary ---
:1980 Author Organization [facility] Address [address] [place] [address] Care Team Providers Name Role Phone Matheus Feliciano M.D. Primary Care Provider [phone] Encounter Details Date Type Department Care Team Description 09/17/2020 Orders Only Pharmacy Prior Auth Leonarda Montero [phone] Social History Tobacco Use Types Packs/Day Years [...] do you attend evangelical or Never 2021 cheondoism services? 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 PCP - General Family Medicine 01/09/[address] [place] [address] [place] [address] documented as of this encounter
--- OUTSIDE RECORDS SUMMARY | 2022-04-29 07:36 | XMS_ITS | Encounter Summary ---
:1980 Author Organization [facility] Address [address] [place] [address] Care Team Providers Name Role Phone Matheus Feliciano M.D. Primary Care Provider [phone] Encounter Details Date Type Department Care Team Description 12/18/2020 Immunization Department of [facility] Herve Mitchell [facility] COVID-19 Medicine, Carlos Rosas M.D. Vaccine Immunization Building, in [address] [place] [address] [place], [place] [phone] [address] (Work) [phone] Social History Tobacco Use Types Packs/Day Years [...] do you attend temple or Never 2021 catholic services? 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 PCP - General Family Medicine 01/09/[address] [place] [address] [place] [address] documented as of this encounter
--- OUTSIDE RECORDS SUMMARY | 2022-04-29 07:36 | XMS_ITS | Encounter Summary ---
:1980 Author Organization [facility] Address [address] [place] [address] Care Team Providers Name Role Phone Matheus Feliciano M.D. Primary Care Provider [phone] Encounter Details Date Type Department Care Team Description 10/17/2020 Clinical Communication Department of [facility] [place] Far[place] M.D. [facility], in [address] [address] [place] [address] [facility] [phone] Social History Tobacco Use Types Packs/Day Years [...] do you attend bahai or Never 2021 sabianism services? 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/2021 7:35 PM ELECTRO MECHANICAL SOLAR TECHNICIAN documented as of this encounter Miscellaneous Notes Telephone Encounter - Gagan Tilley M.D. - 10/17/2020 3:05 PM ELECTRO MECHANICAL SOLAR TECHNICIAN The cysto has been reviewed in detail. TRO MECHANICAL SOLAR TECHNICIAN documented in this encounter Plan of Treatment Not on filedocumented as of this encounter Visit Diagnoses Not on filedocumented in this encounter Care Teams Stock Raiser Relationship Specialty Start Date End Date Matheus Feliciano M.B.B.S., M.D. PCP - General Family Medicine 01/09/[address] [place] [address] [place] [address] documented as of this encounter
--- OUTSIDE RECORDS SUMMARY | 2022-04-29 07:36 | XMS_ITS | Encounter Summary ---
:1980 Author Organization [facility] Address [address] [place] [address] Care Team Providers Name Role Phone Matheus Feliciano M.D. Primary Care Provider [phone] Reason for Referral Specialty Diagnoses / Procedures Referred By Contact Refer red To Contact Clay Mcneill M.D. [facility] Region [address] [place] [address] Referral ID Status Reason Start Date Expiration Date Visits Requ ested Visits Authorized Encounter Details Date Type Department Care Team Description 11/09/2020 Orders Only [facility] PCP [facility] PANKAJT Sa rigo Ng M.D. [address] [place], [place] [phone] (Wo rk) Social History [...] you attend jehovah's witness or Never 2021 jain services? Do you [...] Recorded Female 09/01/2021 7:35 PM DIRECTOR OF MANAGED CARE documented as of this encounter Plan of Treatment Scheduled Referrals Name Type Priority Associated Order Schedule Diagnoses Covid immunization Outpatient Referral Routine Ex pected: office visit Initial 021 (Approximate), Expires: 11/09/2021 documented as of this encounter Visit Diagnoses Not on filedocumented in this encounter Care Teams Plant Physiologist Relationship Specialty Start Date End Date Matehus Feliciano M.B.B.S., M.D. PCP - General Family Medicine 01/09/[address] [place] [address] [place] [address] documented as of this encounter
--- OUTSIDE RECORDS SUMMARY | 2022-04-29 07:36 | XMS_ITS | Encounter Summary ---
:1980 Author Organization [facility] Address [address] [place] [address] Care Team Providers Name Role Phone Matheus Feliciano M.D. Primary Care Provider [phone] Reason for Referral Outpatient (Routine) - Closed Specialty Diagnoses / Procedures Referred By Contact Refer red To Contact Urology Sushila Mcneill APRN, RIsiah [facility] Region [address] [place] [phone] Referral ID Status Reason Start Date Expiration Date Visits Requ ested Visits Authorized [id number] Closed 09/24/2020 09/24/2021 1 1 Scheduling Instructions 6-8 weeks HOOKER Reason for Visit Reason Comments Post-op cysto with dilation bleeding over the weekend has gotten much better from Thursday Outpatient (Routine) - Closed Specialty Diagnoses / Procedures Referred By Contact Refer red To Contact Urology Sushila Mcneill APRN, R.NRafal [facility] Region [address] [place] [phone] Referral ID Status Reason Start Date Expiration Date Visits Requ ested Visits Authorized [id number] Closed 09/11/2020 09/11/2021 1 1 Encounter Details Date Type Department Care Team Description 09/24/2020 Office Visit Department of Sushila Mcneill (Primary Dx); Urology in [place], HAIR SPRING WINDER, R.N. Follow Up Examination Postoperative Visi t; Jossy Segura [address] Hematuria; [address] [place], [place] Spasm Bladder [place] [phone] [...] do you attend mandaeism or Never 2021 roman catholic services? Do [...] at Date Recorded Female 09/01/2021 7:35 PM LOG HOOKER documented as of this encounter Last Filed Vital Signs Vital Sign Reading Time Taken Comments Blood Pressure - - Pulse 87 09/24/2020 10:20 AM LOG HOOKER Temperature 36.7 ??C (98.1 ??F) 09/24/2020 10:20 AM LOG HOOKER Respiratory Rate - - Oxygen Saturation 100% 09/24/2020 10:20 AM LOG HOOKER Inhaled Oxygen Concentration - - Weight - [...] Sushila Mcneill APRN, C.N.P. 09/24/2020 10:31 AM LOG HOOKER HOOKER documented in this encounter Plan of Treatment Scheduled Referrals Name Type Priority Associated Diagnoses Order S [facility] office Outpatient Referral Routine Expect ed: visit (clinic) 11/22/2020 (Approximate), Expires: 09/24/2023 documented as of this encounter Visit Diagnoses Diagnosis Stenosis Meatal - Primary Follow Up Examination Postoperative Visi t Hematuria Spasm Bladder documented in this encounter Care Teams Oil Well Logger Relationship Specialty Start Date End Date Matheus Feliciano M.B.B.S., M.D. PCP - General Family Medicine 01/09/[address] [place] [phone] documented as of this encounter
--- OUTSIDE RECORDS SUMMARY | 2022-04-29 07:36 | XMS_ITS | Encounter Summary ---
:1980 Author Organization [facility] Address [address] [place] [address] Care Team Providers Name Role Phone Matheus Feliciano M.D. Primary Care Provider [phone] Reason for Visit Reason Comments Med Refill Encounter Details Date Type Department Care Team Description 2020 Refill Department of Neurology in Donis Lancaster M.D. Med Refill [place], [place] [address] [facility] [address] [place] [address] [place] [address] [phone] Social History Tobacco Use Types Packs/Day Years [...] do you attend judaism or Never 2021 anabaptism services? 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 PCP - General Family Medicine 01/09/[address] [place] [address] [place] [phone] documented as of this encounter
--- OUTSIDE RECORDS SUMMARY | 2022-04-29 07:37 | XMS_ITS | Encounter Summary ---
:1980 Author Organization [facility] Address [address] [place] [address] Care Team Providers Name Role Phone Matheus Feliciano M.D. Primary Care Provider [phone] Encounter Details Date Type Department Care Team Description 09/12/2020 Clinical Communication Department of Urology Rebel Bernstein in [place], [place] M.D. [address] [place] [address] [place], [place] [phone] Social History Tobacco Use Types Packs/Day Years [...] do you attend rastafari or Never 2021 jewish services? 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/2021 7:35 PM POWER WOOD SAWYER documented as of this encounter Miscellaneous Notes Telephone Encounter - Ela Fajardo L.P.N. - 09/12/2020 2:12 PM CST ----- Message from Ela Fajardo L.P.N. sent at 09/12/2020 2:11 PM POWER WOOD SAWYER ----- Regarding: RE: Prior Auth Lauryium Noted Sent patient a portal message with this information and that she will be informed once this is complete. ----- Message ----- From: Aury Juárez Sent: 09/12/2020 1:49 PM POWER WOOD SAWYER To: Ela Fajardo L.P.N. Subject: FW: Prior Auth Trospium Thank you for your message. This PA has been submitted and we are now waiting on a determination from the plan. If you need to follow up on this PA, please send a communication to [facility] and your inquiry will be reviewed. Thank you! ----- Message ----- From: Ela Fajardo L.P.N. Sent: 09/11/2020 1:32 PM POWER WOOD SAWYER To: [facility] Subject: Prior Auth Trospium Please Prior Auth this medication prescribed on 09/06/[address] Bernstein. trospium (SANCTURA) 20 mg tablet Dose: 20 mgRoute: oralFrequency: 2 times daily before breakfast and dinner Dispense Quantity: 120 tabletRefills: 1 ?? Sig: Take 1 tablet (20 mg total) by mouth 2 (two) times a day before breakfast and dinner. Thanks R WOOD SAWYER documented in this encounter Plan of Treatment Not on filedocumented as of this encounter Visit Diagnoses Not on filedocumented in this encounter Care Teams Laborer Livestock Relationship Specialty Start Date End Date Matheus Feliciano M.B.B.S., M.D. PCP - General Family Medicine 01/09/[address] [place] [address] documented as of this encounter
--- OUTSIDE RECORDS SUMMARY | 2022-04-29 07:37 | XMS_ITS | Encounter Summary ---
:1980 Author Organization [facility] Address [address] [place] [address] Care Team Providers Name Role Phone Matheus Feliciano M.D. Primary Care Provider [phone] Reason for Referral MRI/CAT/PET Scan (Routine) - Closed Specialty Diagnoses / Procedures Referred By Contact Refer red To Contact Radiology Diagnoses Hematuria Gagan De La Rosa M.D. [facility] [place] [facility] Procedures CT Urogram without and with IV Contrast CT Urogram with IV Contrast [place] CT ABD&PELVIS W CNTRST [place] CT ABD&PELVIS WO/W CNTRST [address] [place] [phone] Referral ID Status Reason Start Date Expiration Date Visits Requ ested Visits Authorized [id number] Closed 07/12/2020 07/12/2021 1 1 ICE CAPTAIN Reason for Visit MRI/CAT/PET Scan (Routine) - Closed Specialty Diagnoses / Procedures Referred By Contact Refer red To Contact Radiology Diagnoses Hematuria Gagan De La Rosa M.D. [facility] [place] [facility] Procedures CT Urogram without and with IV Contrast CT Urogram with IV Contrast [place] CT ABD&PELVIS W CNTRST [place] CT ABD&PELVIS WO/W CNTRST [address] [place] [phone] Referral ID Status Reason Start Date Expiration Date Visits Requ ested Visits Authorized [id number] Closed 07/12/2020 07/12/2021 1 1 Encounter Details Date Type Department Care Team Description 08/22/2020 Hospital Encounter Department of Radiology Sheryl Tilley in Yevgeniy Chaparro M.D. [address] [place] [address] [place] [phone] [address] Social History Tobacco Use Types Packs/Day [...] do you attend methodist or Never 2021 quaker services? Do you [...] at Date Recorded Female 09/01/2021 7:35 PM SERVICE CAPTAIN documented as of this encounter Medications at [...] this WITHOUT AND WITH (most inpatients AM SERVICE CAPTAIN procedu re are in IV CONTRAST and all the results outpatients) section. documented in this encounter Results CT Urogram without and with IV Contrast (08/22/2020 11:00 AM SERVICE CAPTAIN) Anatomical Region Laterality Modality Abdomen, Pelvis, Abdominal RST LOS, Abdominal ARZ LOS, N/A Computed Tomography Abdominal FLA LOS Specimen (Source) Anatomical Collection Method Collection Time Re ceived Time Location / / Volume Laterality 08/22/2020 11:22 AM SERVICE CAPTAIN Impressions 08/22/2020 11:26 AM SERVICE CAPTAIN 1. ??Circumferential prominent urinary bladder wall thickening, correlation for possible cystitis suggested with follow- up if indicated. 2. ??Small nonobstructing bilateral sanjuanita l calculi. Narrative 08/22/2020 11:26 AM SERVICE CAPTAIN EXAM: CT UROGRAM WITHOUT AND WITH IV [...] mg iodine/mL solution Given 08/22/2020 10:48 AM SERVICE CAPTAIN 140 mL 1-200 mL (OMNIPAQUE) 1-200 mL, intravenous, Once in imaging, contrast, Starting on Thu08/22/20 at 1112, For 1 dose, If administered oral then dilute in 900 mL water sodium chloride 0.9 % flush 200 mL Given 08/22/2020 10:48 AM SERVICE CAPTAIN 190 mL 200 mL, intravenous, Once in imaging, line care, Starting on Thu08/22/20 at 1114, For 1 dose sodium chloride 0.9 % injection 10 mL Given 08/22/2020 10:48 AM SERVICE CAPTAIN 10 mL 10 mL, intravenous, Once in imaging, line care, Starting on Thu08/22/20 at 1112, For 1 dose documented in this encounter Care Teams Director Of Professional Services Relationship Specialty Start Date End Date Matheus Feliciano M.B.BRafalSRafal, MDonald. PCP - General Family Medicine 01/09/[address] [place] [address] PANK[place] Velez [phone] documented as of this encounter
--- OUTSIDE RECORDS SUMMARY | 2022-04-29 07:37 | XMS_ITS | Encounter Summary ---
:1980 Author Organization [facility] Address [address] [place] [address] Care Team Providers Name Role Phone Matheus Feliciano M.D. Primary Care Provider [phone] Encounter Details Date Type Department Care Team Description 07/03/2020 Clinical Communication Department of Matheus [facility], Prabhu Parmar, Clinic, in [place] [address] [address] [phone] Social History Tobacco Use Types Packs/Day Years [...] do you attend moravian or Never 2021 oriental orthodox services? 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 PCP - General Family Medicine 01/09/[address] [place] [address] [place] [phone] documented as of this encounter
--- OUTSIDE RECORDS SUMMARY | 2022-04-29 07:37 | XMS_ITS | Encounter Summary ---
:1980 Author Organization [facility] Address [address] [place] [address] Care Team Providers Name Role Phone Matheus Feliciano M.D. Primary Care Provider [phone] Encounter Details Date Type Department Care Team Description 09/10/2020 Orders Only Pharmacy Prior Auth RO Matheus Feliciano I., [place] Pelletier [address] [place] [phone] (Wo rk) Social History Tobacco Use [...] do you attend congregational or Never 2021 congregation services? Do you [...] at Date Recorded Female 09/01/2021 7:35 PM YARD FOREMAN documented as of this encounter Plan of Treatment Not on filedocumented as of this encounter Visit Diagnoses Not on filedocumented in this encounter Additional Health Concerns Infection Onset Date Last Indicated Resolved Time COVID19 Pending 09/15/2020 09/16/2020 09/17/2020 4:27 AM YARD FOREMAN documented as of this encounter Care Teams Fountain Worker Relationship Specialty Start Date End Date Matheus Feliciano M.B.B.S., M.D. PCP - General Family Medicine 01/09/[address] [place] [address] [place] [phone] documented as of this encounter
--- OUTSIDE RECORDS SUMMARY | 2022-04-29 07:37 | XMS_ITS | Encounter Summary ---
:1980 Author Organization [facility] Address [address] [place] [address] Care Team Providers Name Role Phone Matheus Feliciano M.D. Primary Care Provider [phone] Reason for Visit Reason Comments Headache Encounter Details Date Type Department Care Team Description 08/23/2020 [facility], [facility], [facility] in [address] [address] Social History Tobacco Use Types Packs/Day [...] many times do you More than three jreman es a week 09/02/2021 talk on the phone with family, friends, or neighbors? How often do you get together with friends More than three t imes a week 09/02/2021 or relatives? How often do you attend taoist or Never 2021 methodist services? Do you [...] at Date Recorded Female 09/01/2021 7:35 PM PRACTICAL NURSE CLINICAL COORDINATOR documented as of this encounter Miscellaneous Notes Telephone Encounter - Alejandra Carolina R.N., CLC - 08/23/2020 5:16 PM PRACTICAL NURSE CLINICAL COORDINATOR Chief Complaint / Reason for Call Patient is a 39 y.o. female calling regarding Headache. Assessment Concern: Patient had urogram with IV contrast done yesterday and developed headache yesterday and continued throughout today. She describes her headache has constant and feels like it's in a vice butcher assistant. Rates her pain 8/10. She has history [...] reaching maximum intensity within seconds) Protocols used: [id number]-TNAPS-OC Care Advice Patient/Caregiver understands and will follow [...] that they will take her to non [place] testing [facility] in [facility] to have it donetonight. Care Points: -Wash hands frequently with soap and water for at least 20 seconds -If soap and water are not available, use a hand marine engineering consultant -Avoid touching your eyes, nose and [...] care: Yes The following references were used: [facility] novel coronavirus (COVID- 19) resources TICAL NURSE CLINICAL COORDINATOR documented in this encounter Plan of Treatment Not on filedocumented as of this encounter Visit Diagnoses Not on filedocumented in this encounter Care Teams Brick Mason Relationship Specialty Start Date End Date Matheus Feliciano M.B.B.S., M.D. PCP - General Family Medicine 01/09/[address] [place] [address] [place] [address] documented as of this encounter
--- OUTSIDE RECORDS SUMMARY | 2022-04-29 07:37 | XMS_ITS | Encounter Summary ---
:1980 Author Organization [facility] Address [address] [place] [address] Care Team Providers Name Role Phone Matheus Felicaino M.D. Primary Care Provider [phone] Encounter Details Date Type Department Care Team Description 09/10/2020 Clinical Communication Department of Urology Rebel Bernstein in [place], [place] M.D. [address] [place] [address] [place], [place] [phone] Social History Tobacco Use Types Packs/Day [...] do you attend denominational or Never 2021 anabaptism services? 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 STOCK LABORER Telephone Encounter - Sonia Bustamante R.NRafal - 09/11/2020 8:32 AM CST Orders have been placed by Provider Charito coordinate measuring equipment operator aware. STOCK LABORER Telephone Encounter - Ela Fajardo L.P.N. - [...] like to procedure with procedure recommended. Thanks STOCK LABORER documented in this encounter Plan of Treatment Not on filedocumented as of this encounter Visit Diagnoses Not on filedocumented in this encounter Care Teams Washing Machine Installer Relationship Specialty Start Date End Date Matheus Feliciano M.B.B.S., M.D. PCP - General Family Medicine 01/09/[address] [place] [phone] documented as of this encounter
--- OUTSIDE RECORDS SUMMARY | 2022-04-29 07:37 | XMS_ITS | Encounter Summary ---
:1980 Author Organization [facility] Address [address] [place] [address] Care Team Providers Name Role Phone Matheus Feliciano M.D. Primary Care Provider [phone] Encounter Details Date Type Department Care Team Description 09/12/2020 Orders Only Pharmacy Prior Auth Aury Arellano [phone] Social History Tobacco Use Types Packs/Day Years [...] do you attend yarsanism or Never 2021 mormonism services? 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 PCP - General Family Medicine 01/09/[address] [place] [address] [place] [phone] documented as of this encounter
--- OUTSIDE RECORDS SUMMARY | 2022-04-29 07:37 | XMS_ITS | Encounter Summary ---
:1980 Author Organization [facility] Address [address] [place] [address] Care Team Providers Name Role Phone Matheus Feliciano M.D. Primary Care Provider [phone] Encounter Details Date Type Department Care Team Description 06/25/2020 Clinical Communication Department of Matheus Chester [facility], Prabhu Parmar, Clinic, in [place] [address] [phone] Social History Tobacco Use Types Packs/Day Years [...] do you attend hindu or Never 2021 confucianist services? 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 PCP - General Family Medicine 01/09/[address] [place] [address] [place] [phone] documented as of this encounter
--- OUTSIDE RECORDS SUMMARY | 2022-04-29 07:37 | XMS_ITS | Encounter Summary ---
:1980 Author Organization [facility] Address [address] [place] [address] Care Team Providers Name Role Phone Matheus Feliciano M.D. Primary Care Provider [phone] Reason for Referral MRI/CAT/PET Scan (Routine) - Closed Specialty Diagnoses / Procedures Referred By Contact Refer red To Contact Radiology Diagnoses Hematuria Gagan De La Rosa M.D. [facility] Region Procedures CT Urogram without and with IV Contrast CT Urogram with IV Contrast ID CT ABD&PELVIS W CNTRST ID CT ABD&PELVIS WO/W CNTRST [address] [place] [address] Referral ID Status Reason Start Date Expiration Date Visits Requ ested Visits Authorized [id number] Closed 07/12/2020 07/12/2021 1 1 SITE SOIL EVALUATOR Encounter Details Date Type Department Care Team Description 07/12/2020 Clinical Communication Department of Hong Bassett, Rishi Farah M.D. Clinic, in [place], [facility] [address] [place] [address] [address] PANKAJ SEGURA [phone] (Work) [phone] Social History Tobacco Use Types Packs/Day Years [...] do you attend mormon or Never 2021 yazdanism services? Do you [...] at Date Recorded Female 09/01/2021 7:35 PM ON SITE SOIL EVALUATOR documented as of this encounter Miscellaneous Notes Telephone Encounter - Gagan Tilley M.D. - 07/12/2020 8:30 AM ON SITE SOIL EVALUATOR Patient had a CT abdomen and pelvis at [facility] 2019. I have ordered the urine cytology in also CT urogram with contrast. SITE SOIL EVALUATOR Telephone Encounter - Gagan Tilley M.D. - 07/12/2020 8:30 AM ON SITE SOIL EVALUATOR ----- Message from Sonia Bustamante R.N. sent at 07/10/2020 2:01 PM ON SITE SOIL EVALUATOR ----- Regarding: Orders needed prior to urology consult Dr. Tilley, Please place orders for a urine non hearse driver cytology and CT urogram to be done prior to urology consult. Thank you,Sonia, RNUrology SITE SOIL EVALUATOR documented in this encounter Plan of Treatment Not on filedocumented as of this encounter Results CT Urogram without and with IV Contrast (08/22/2020 11:00 AM ON SITE SOIL EVALUATOR) Anatomical Region Laterality Modality Abdomen, Pelvis, Abdominal RST LOS, Abdominal ARZ LOS, N/A Computed Tomography Abdominal FLA LOS Specimen (Source) Anatomical Collection Method Collection Time Re ceived Time Location / / Volume Laterality 08/22/2020 11:22 AM ON SITE SOIL EVALUATOR Impressions 08/22/2020 11:26 AM ON SITE SOIL EVALUATOR 1. ??Circumferential prominent urinary bladder wall thickening, correlation for possible cystitis suggested with follow- up if indicated. 2. ??Small nonobstructing bilateral sanjuanita l calculi. Narrative 08/22/2020 11:26 AM ON SITE SOIL EVALUATOR EXAM: CT UROGRAM WITHOUT AND WITH IV [...] Gagan Tilley M.D. IMG CT PROCEDURES Cytology Non-BEER MAKER (Scheduled) (07/17/2020 12:20 PM ON SITE SOIL EVALUATOR) Component Value Ref Test Analysis Performed At [facility] gist Range Method Time Signature 07/18/2020 [facility] 9:15 AM ON SITE SOIL EVALUATOR Fixative yes 07/18/2020 [facility] 9:15 AM ON SITE SOIL EVALUATOR Report Pratibha SHAJI Sanchez. Ch.B. 07/18/2020 [facility] electronically I verify that I have examined all relevant slides/ma terials 9:15 AM ON SITE SOIL EVALUATOR signed by for the specimen(s) and rendered or confirmed the diagnosis. Gross Description Received 20 07/18/2020 [facility] ml of yellow 9:15 AM ON SITE SOIL EVALUATOR alcohol fixed fluid. Collection voided 07/18/2020 [facility] Procedure 9:15 AM ON SITE SOIL EVALUATOR Source A. Urine, 07/18/2020 [facility] Midstream, 9:15 AM ON SITE SOIL EVALUATOR voided Clinical History R31.0 07/18/2020 [facility] 9:15 AM ON SITE SOIL EVALUATOR Interpretation A. Urine, Midstream, voided (cytospin): Negative for 07/18/2020 [facility] High-Grade Urothelial Carcinoma. 9:15 AM ON SITE SOIL EVALUATOR Specimen Anatomical Collection Method Collection Time Receive d Time (Source) Location / / Volume Laterality Varies 07/17/2020 12:20 07/18/2020 6:35 PM ON SITE SOIL EVALUATOR AM ON SITE SOIL EVALUATOR Narrative This result has an attachment that is no t available. Gagan Tilley M.D. LAB SURG PATH ORDERABLES Performing Organization Address City/State/ZIP Code Phon e Number [facility]- [address] [place] [address] [place] [address] [facility] [facility] documented in this encounter Visit Diagnoses Diagnosis Hematuria Gross - Primary Hematuria Gross documented in this encounter Care Teams Creative Consultant Relationship Specialty Start Date End Date Matheus Felicinao M.B.B.S., M.D. PCP - General Family Medicine 01/09/[address] [place] [phone] documented as of this encounter
--- OUTSIDE RECORDS SUMMARY | 2022-04-29 07:37 | XMS_ITS | Encounter Summary ---
:1980 Author Organization [facility] Address [address] [place] [address] Care Team Providers Name Role Phone Matheus Feliciano M.D. Primary Care Provider [phone] Encounter Details Date Type Department Care Team Description 07/17/2020 Hospital Encounter Department of Khushboo Tilley Laboratory Medicine in [place], [place] [address] [place] [phone] Social History Tobacco Use Types Packs/Day Years [...] do you attend yazdanism or Never 2021 advent services? Do you [...] at Date Recorded Female 09/01/2021 7:35 PM ETIOLOGY TEACHER documented as of this encounter Medications [...] Priority Date/Time Associated Diagnosis Comme nts CYTOLOGY NON-DIRECTOR WEB Routine 07/17/2020 12:20 PM Hematuria Gross R esults for this (SCHEDULED) ETIOLOGY TEACHER procedure are i n the results section. documented in this encounter Results Cytology Non-DIRECTOR WEB (Scheduled) (07/17/2020 12:20 PM ETIOLOGY TEACHER) Component Value Ref Test Analysis Performed At [facility] Range Method Time Signature 07/18/2020 [facility] 9:15 AM ETIOLOGY TEACHER Fixative yes 07/18/2020 [facility] 9:15 AM ETIOLOGY TEACHER Report Pratibha SHAJI Sanchez. Ch.B. 07/18/2020 [facility] electronically I verify that I have examined all relevant slides/ma terials 9:15 AM ETIOLOGY TEACHER signed by for the specimen(s) and rendered or confirmed the diagnosis. Gross Description Received 20 07/18/2020 [facility] ml of yellow 9:15 AM ETIOLOGY TEACHER alcohol fixed fluid. Collection voided 07/18/2020 [facility] Procedure 9:15 AM ETIOLOGY TEACHER Source A. Urine, 07/18/2020 [facility] Midstream, 9:15 AM ETIOLOGY TEACHER voided Clinical History R31.0 07/18/2020 [facility] 9:15 AM ETIOLOGY TEACHER Interpretation A. Urine, Midstream, voided (cytospin): Negative for 07/18/2020 [facility] High-Grade Urothelial Carcinoma. 9:15 AM ETIOLOGY TEACHER Specimen Anatomical Collection Method Collection Time Receive d Time (Source) Location / / Volume Laterality Varies 07/17/2020 12:20 07/18/2020 6:35 PM ETIOLOGY TEACHER AM ETIOLOGY TEACHER Narrative This result has an attachment that is no t available. Gagan Tilley M.D. LAB SURG PATH ORDERABLES Performing Organization Address City/[facility]/ZIP Code Phon e Number [facility]- [address] [place] [address] [place] [address] [facility] Cytology [facility] documented in this encounter Visit Diagnoses Diagnosis Hematuria Gross documented in this encounter Care Teams Brush Cleaner Relationship Specialty Start Date End Date Matheus Feliciano M.B.BRafalSJose Lyles. PCP - General Family Medicine 01/09/[address] [place] [phone] documented as of this encounter
--- OUTSIDE RECORDS SUMMARY | 2022-04-29 07:37 | XMS_ITS | Encounter Summary ---
:1980 Author Organization [facility] Address [address] [place] [address] Care Team Providers Name Role Phone Matheus Feliciano M.D. Primary Care Provider [phone] Reason for Visit MRI/CAT/PET Scan (Routine) - Closed Specialty Diagnoses / Procedures Referred By Contact Refer red To Contact Radiology Diagnoses Hematuria Gross Gagan Tilley M.D. [facility] Region Procedures CT Urogram without and with IV Contrast CT Urogram with IV Contrast IA CT ABD&PELVIS W CNTRST IA CT ABD&PELVIS WO/W CNTRST [address] [place] [address] Referral ID Status Reason Start Date Expiration Date Visits Requ ested Visits Authorized [id number] Closed 07/12/2020 07/12/2021 1 1 Encounter Details Date Type Department Care Team Description 07/23/2020 Hospital Encounter Department of Maurizio Tilley (Patient: Radiology in [place] Request) [place], [place] [address] [place], [place] PANK[place] BAUMANN [phone] Social History Tobacco Use Types Packs/Day Years [...] do you attend yazidi or Never 2021 baptist services? 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 PCP - General Family Medicine 01/09/[address] [place] [address] [place] Velez [phone] documented as of this encounter
--- OUTSIDE RECORDS SUMMARY | 2022-04-29 07:37 | XMS_ITS | Encounter Summary ---
:1980 Author Organization [facility] Address [address] [place] [address] Care Team Providers Name Role Phone Matheus Feliciano M.D. Primary Care Provider [phone] Reason for Visit Reason Comments COVID Inquiry Encounter Details Date Type Department Care Team Description 07/12/2020 Clinical Communication Department of [facility] Matheus Feliciano Medicine, Prabhu Parmar, Clinic, in [place] [address] [facility] [address] [place] [phone] Social History Tobacco Use Types Packs/Day Years [...] do you attend anabaptism or Never 2021 orthodoxy services? Do you [...] at Date Recorded Female 09/01/2021 7:35 PM WHIP SAWYER documented as of this encounter Miscellaneous [...] sending patient for testing in [facility], an email notification is required. SAWYER documented in this encounter Plan of Treatment Not on filedocumented as of this encounter Visit Diagnoses Not on filedocumented in this encounter Care Teams Embedded Systems Software Developer Relationship Specialty Start Date End Date Matheus Feliciano M.B.B.S., M.D. PCP - General Family Medicine 01/09/[address] [place] [address] [place] [phone] documented as of this encounter
--- OUTSIDE RECORDS SUMMARY | 2022-04-29 07:37 | XMS_ITS | Encounter Summary ---
:1980 Author Organization [facility] Address [address] [place] [address] Care Team Providers Name Role Phone Matheus Feliciano M.D. Primary Care Provider [phone] Reason for Visit Reason Comments SURGERY DATE Encounter Details Date Type Department Care Team Description 09/11/2020 Clinical Communication Department of [facility] Matehus Feliciano SURGERY DATE Medicine, Prabhu Parmar, Clinic, in [place] [address] [facility] [address] [place] [phone] Social History Tobacco Use Types Packs/Day Years [...] do you attend taoist or Never 2021 yarsanism services? Do you [...] at Date Recorded Female 09/01/2021 7:35 PM REHAB SERVICES AIDE documented as of this encounter Miscellaneous Notes Telephone Encounter - Sonia Bustamante R.N. - 09/11/2020 2:52 PM CST Noted in desk logistics planner. B SERVICES AIDE Telephone Encounter - Arlyn Recio - 09/11/2020 2:35 PM CST SURGEON: DR. CARBAJAL ASSIST: NONE PRE-OP DATE: 09-12-[address] SOTO NASAL SWAB: 09-16-20 SURGERY DATE: 09-19-20 DIAGNOSIS: MEATAL STENOSIS, HEMATURIA PROCEDURE: 1. URETHRAL SILATION 2. DIAGNOSTIC CYSTOSCOPY 3. PROCEED INDICATED. ANESTHESIA: [facility] WILL CALL WITH ARRIVAL TIME. B SERVICES AIDE documented in this encounter Plan of Treatment Not on filedocumented as of this encounter Visit Diagnoses Not on filedocumented in this encounter Care Teams Maintenance Painter Apprentice Relationship Specialty Start Date End Date Matheus Feliciano M.B.B.S. MDonald. PCP - General Family Medicine 01/09/[address] [place] [address] [place] [phone] documented as of this encounter
--- OUTSIDE RECORDS SUMMARY | 2022-04-29 07:37 | XMS_ITS | Encounter Summary ---
:1980 Author Organization [facility] Address [address] [place] [address] Care Team Providers Name Role Phone Matheus Feliciano M.D. Primary Care Provider [phone] Encounter Details Date Type Department Care Team [...] do you attend zoroastrian or Never 2021 mandaen services? Do you [...] at Date Recorded Female 09/01/2021 7:35 PM AGENCY DEVELOPMENT MANAGER documented as of this encounter Plan of Treatment Not on filedocumented as of this encounter Procedures Procedure Name Priority Date/Time Associated Diagnosis Comme nts UROLOGY IMAGE EXAM Routine 09/06/2020 12:00 PM Re sults for this AGENCY DEVELOPMENT MANAGER procedure are i n the results section. documented in this encounter Results CYSTOSCOPY-Urology Image Exam (09/06/2020 12:00 PM AGENCY DEVELOPMENT MANAGER) Specimen (Source) Anatomical Location Collection Method / Collectio n Time Received Time / Laterality Volume Narrative [facility]IM[facility] - 09/10/2020 11:06 AM AGENCY DEVELOPMENT MANAGER This order has been created and auto-finalized [...] on filedocumented in this encounter Care Teams Sergeant Of Officers Relationship Specialty Start Date End Date Matheus Feliciano M.B.B.S., M.D. PCP - General Family Medicine 01/09/[address] [place] [address] [place] [phone] documented as of this encounter
--- OUTSIDE RECORDS SUMMARY | 2022-04-29 07:37 | XMS_ITS | Encounter Summary ---
:1980 Author Organization [facility] Address [address] [place] [address] Care Team Providers Name Role Phone Matheus Feliciano M.D. Primary Care Provider [phone] Reason for Visit Reason Comments Urinary Tract Infection uregency, pink tinge when wi ping, lower back pain- started approx. 2 week Appointment Request (Routine) - Closed Specialty Diagnoses / Procedures Referred By Contact Refer red To Contact Family Medicine Referral ID Status Reason Start Date Expiration Date Visits Requ ested Visits Authorized [id number] Closed 06/20/2020 06/20/2021 1 1 Encounter Details Date Type Department Care Team Description 06/21/2020 Office Visit Department of Family Altrichter, Dysuria (Primary Dx); Medicine, Rishi Farah M.D. Cystitis Clinic, in [place], [facility] [address] [place], [place] [address] [facility] [address] [place], [place] [phone] [address] (Work) [phone] Social History Tobacco Use Types Packs/Day Years [...] do you attend presybeterian or Never 2021 anglican services? 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/2021 7:35 PM TRAFFIC I MANAGER documented as of this encounter Last Filed Vital Signs Vital Sign Reading Time Taken Comments Blood Pressure 110/64 06/21/2020 1:57 PM TRAFFIC I MANAGER Pulse 92 06/21/2020 1:57 PM TRAFFIC I MANAGER Temperature 36.7 ??C (98.1 ??F) 06/21/2020 1:57 PM TRAFFIC I MANAGER Respiratory Rate 16 06/21/2020 1:57 PM TRAFFIC I MANAGER Oxygen Saturation - - Inhaled Oxygen Concentration - - Weight 70.7 kg (155 lb 12.1 oz) 06/21/2020 1:57 PM TRAFFIC I MANAGER Height 181.5 cm (5' 11.46) 06/21/2020 1:57 PM TRAFFIC I MANAGER Body Mass Index 21.45 06/21/2020 1:57 PM TRAFFIC I MANAGER documented in this encounter Progress Notes Gagan [...] to follow-up with Dr. Feliciano or a retail team leader this week. FIC I MANAGER documented in this encounter Plan of Treatment Not on filedocumented as of this encounter Procedures Procedure Name Priority Date/Time Associated Comments Diagnosis BACTERIAL CULTURE, Routine 06/21/2020 2:16 PM Dysuria Res ults for this AEROBIC + SUSC, URINE TRAFFIC I MANAGER proced ure are in the results section. URINALYSIS WITH Routine 06/21/2020 2:16 PM Dysuria Result s for this MICROSCOPIC TRAFFIC I MANAGER procedure are i n the results section. documented in this encounter Results Bacterial Culture, Aerobic + Susc, Urine (06/21/2020 2:16 PM TRAFFIC I MANAGER) Patholo gist Method Time Signature Urine Culture No growth 06/22/2020 MKTO after 1 day 4:11 PM TRAFFIC I MANAGER of incubation. Specimen Anatomical Collection Method Collection Time Receive d Time (Source) Location / / Volume Laterality Urine (Urine, 06/21/2020 2:16 PM 06/21/20 20 8:19 Midstream) TRAFFIC I MANAGER PM TRAFFIC I MANAGER Comment: Specimen Source Site: Urine Gagan Tilley M.D. LAB MICROBIOLOGY - GENERAL O RDERABLES Performing Organization Address City/State/ZIP Code Phon e Number [facility]- [address] [place] [address] [place] [address] (ABNORMAL) Urinalysis with Microscopic: Urine, Midstream (06/21/2020 2:16 PM TRAFFIC I MANAGER) P athologist Signature Source Midstream 06/21/2020 FB60 2:39 PM TRAFFIC I MANAGER Clarity Clear Clear 06/21/2020 FB60 2:39 PM TRAFFIC I MANAGER Color Yellow 06/21/2020 FB60 2:39 PM TRAFFIC I MANAGER Comment: ----REFERENCE VALUE---- Colorless Yellow Dena Blood Small (A) Negative 06/21/2020 2:39 PM TRAFFIC I MANAGER FB60 Nitrite Negative Negative 06/21/2020 2:39 PM TRAFFIC I MANAGER FB60 Leukocyte Esterase Negative Negative 06/21/2020 2:39 PM CS T FB60 Protein Negative mg/dL 06/21/2020 2:39 PM TRAFFIC I MANAGER FB60 Comment: ----REFERENCE VALUE---- Negative Trace Glucose Negative Negative mg/dL 06/21/2020 2:39 PM TRAFFIC I MANAGER FB 60 Ketones, QI(U) Negative Negative mg/dL 06/21/2020 2:[address] FB60 Bilirubin Negative Negative 06/21/2020 2:39 PM TRAFFIC I MANAGER FB60 pH 7.0 5.0 - 8.0 06/21/2020 2:39 PM TRAFFIC I MANAGER FB60 Specific [place] 1.010 1.001 - 1.035 06/21/2020 2:39 PM TRAFFIC I MANAGER FB60 Urobilinogen 0.2 0.2 - 1.0 mg/dL 06/21/2020 2:39 PM CS T FB60 White Blood Cells None Seen /hpf 06/21/2020 2:39 PM TRAFFIC I MANAGER FB60 Comment: ----REFERENCE VALUE---- Males: 0-3 Females: 0-10 Unknown: 0-10 Red Blood Cells None Seen 0 - 2 /hpf 06/21/2020 2:39 PM TRAFFIC I MANAGER FB60 Specimen Anatomical Collection Method Collection Time Receive d Time (Source) Location / / Volume Laterality Urine (Urine, 06/21/2020 2:16 PM 06/21/20 2:16 Midstream) TRAFFIC I MANAGER PM TRAFFIC I MANAGER Gagan Tilley M.D. LAB URINE ORDERABLES Performing Organization Address City/State/ZIP Code Phon e Number [facility]- [address] [place] [address] [facility] [address] [place] [address] [address] documented in this encounter Visit Diagnoses Diagnosis Dysuria - Primary Cystitis documented in this encounter Care Teams Crm Administrator Relationship Specialty Start Date End Date Matheus Feliciano M.B.B.S., M.D. PCP - General Family Medicine 01/09/20 [address] [facility] [place] [address] documented as of this encounter
--- OUTSIDE RECORDS SUMMARY | 2022-04-29 07:37 | XMS_ITS | Encounter Summary ---
:[address] [facility] Address [address] [place] [address] Care Team Providers Name Role Phone Matheus Feliciano M.D. Primary Care Provider [phone] Encounter Details Date Type Department Care Team Description 09/13/2020 Orders Only [facility] Matheus Issa I., [address] [place] [address] 300 [facility] [phone] [place] [address] (Wo rk) Social History Tobacco [...] do you attend temple or Never 2021 religion services? Do you [...] at Date Recorded Female 09/01/2021 7:35 PM WELDING SUPERVISOR documented as of this encounter Plan of Treatment Not on filedocumented as of this encounter Visit Diagnoses Not on filedocumented in this encounter Additional Health Concerns Infection Onset Date Last Indicated Resolved Time COVID19 Pending 09/15/2020 09/16/2020 09/17/2020 4:27 AM WELDING SUPERVISOR documented as of this encounter Care Teams Dry Curer Relationship Specialty Start Date End Date Matheus Feliciano M.B.B.S., M.D. PCP - General Family Medicine 01/09/[address] [place] [address] PANKAJ Velez [phone] documented as of this encounter
--- OUTSIDE RECORDS SUMMARY | 2022-04-29 07:37 | XMS_ITS | Encounter Summary ---
:1980 Author Organization [facility] Address [address] [place] [address] Care Team Providers Name Role Phone Matheus Feliciano M.D. Primary Care Provider [phone] Reason for Referral Outpatient (Routine) - Closed Specialty Diagnoses / Procedures Referred By Contact Refer red To Contact Diagnoses Hematuria Gross Urgency Urinary Gagan Tilley M.D. [facility] Procedures URO Cystoscopy (general) [address] [place] [phone] Referral ID Status Reason Start Date Expiration Date Visits Requ ested Visits Authorized [id number] Closed 06/26/2020 06/26/2021 1 1 E BRAZING MACHINE OPERATOR Outpatient (Routine) - Closed Specialty Diagnoses / Procedures Referred By Contact Refer red To Contact Urology Diagnoses Hematuria Gross Urgency Urinary Gagan Tilley M.D. [facility] Region [address] [place] [phone] Referral ID Status Reason Start Date Expiration Date Visits Requ ested Visits Authorized [id number] Closed 06/26/2020 06/26/2021 1 1 E BRAZING MACHINE OPERATOR Reason for Visit Reason Comments Follow-up Needs tests ordered Appointment Request (Routine) - Closed Specialty Diagnoses / Procedures Referred By Contact Refer red To Contact Family Medicine Referral ID Status Reason Start Date Expiration Date Visits Requ ested Visits Authorized [id number] Closed 06/25/2020 06/25/2021 1 1 Encounter Details Date Type Department Care Team Description 06/26/2020 Office Visit Department of Family Cullen Tilley (Primary Dx); Medicine, Rishi Farah M.D. Urgency Urinary Clinic, in [place], [facility] [address] [place], [place] [address] [facility] [address] PANKAJ SEGURA [phone] [address] (Work) [phone] Social History Tobacco Use Types Packs/Day Years [...] do you attend yarsani or Never 2021 samaritan services? Do you [...] at Date Recorded Female 09/01/2021 7:35 PM FLAME BRAZING MACHINE OPERATOR documented as of this encounter Last Filed Vital Signs Vital Sign Reading Time Taken Comments Blood Pressure 104/81 06/26/2020 11:04 AM FLAME BRAZING MACHINE OPERATOR Pulse 89 06/26/2020 11:04 AM FLAME BRAZING MACHINE OPERATOR Temperature 36.1 ??C (97 ??F) 06/26/2020 11:04 AM FLAME BRAZING MACHINE OPERATOR Respiratory Rate 18 06/26/2020 11:04 AM FLAME BRAZING MACHINE OPERATOR Oxygen Saturation - - Inhaled Oxygen Concentration - - Weight 68.8 kg (151 lb 10.8 oz) 06/26/2020 11:04 AM FLAME BRAZING MACHINE OPERATOR Height 163 cm (5' 4.17) 06/26/2020 11:04 AM FLAME BRAZING MACHINE OPERATOR Body Mass Index 25.89 06/26/2020 11:04 AM FLAME BRAZING MACHINE OPERATOR documented in this encounter Progress Notes Gagan [...] pelvis in November of this year at [facility]. There were no abnormalities noted in the kidney ureters or bladder on that review. We look forward to our Urology colleagues recommendations for further evaluation and treatment. This was reviewed in detail with the patient and her . Their questions were answered. There were no barriers to learning. E BRAZING MACHINE OPERATOR documented in this encounter Plan of Treatment Scheduled Referrals Name Type Priority Associated Diagnoses Order S [facility] Urology - General - Outpatient Referral Routine Hematuri a Gross Expected: hematuria / Urgency Urinary 06/26/2020 abnormal cytology (Approxima te), consult (clinic) Expires: 06/26/2023 documented as of this encounter Visit Diagnoses Diagnosis Hematuria Gross - Primary Urgency Urinary documented in this encounter Care Teams Granulator Tender Relationship Specialty Start Date End Date Matheus Feliciano M.B.B.S., M.D. PCP - General Family Medicine 01/09/[address] [place] [phone] documented as of this encounter
--- OUTSIDE RECORDS SUMMARY | 2022-04-29 07:37 | XMS_ITS | Encounter Summary ---
:1980 Author Organization [facility] Address [address] [place] [address] Care Team Providers Name Role Phone Matheus Feliciano M.D. Primary Care Provider [phone] Encounter Details Date Type Department Care Team Description 07/17/2020 Hospital Encounter Department of Laboratory Gagan Tilley, Hypokalemia Medicine in [place] [address] [place] [address] Social History Tobacco Use Types Packs/Day Years [...] do you attend synagogue or Never 2021 buddhist services? Do you [...] at Date Recorded Female 09/01/2021 7:35 PM TRANSPORTATION ASSOCIATE documented as of this encounter Medications at [...] Hypokalemia Resul ts for this PANEL, S/P TRANSPORTATION ASSOCIATE procedure are i n the results section. documented in this encounter Results (ABNORMAL) Basic Metabolic Panel (07/17/2020 12:35 PM TRANSPORTATION ASSOCIATE) P athologist Signature Potassium, P 4.5 3.6 - 5.2 07/17/2020 [facility] mmol/L 5:02 PM TRANSPORTATION ASSOCIATE Sodium, P 139 135 - 145 07/17/2020 [place] mmol/L 5:02 PM TRANSPORTATION ASSOCIATE Chloride, P 106 98 - 107 07/17/2020 [place] mmol/L 5:02 PM TRANSPORTATION ASSOCIATE Bicarbonate, P 26 22 - 29 07/17/2020 [facility] mmol/L 5:02 PM TRANSPORTATION ASSOCIATE Anion Gap, P 7 7 - 15 07/17/2020 [facility] 5:02 PM TRANSPORTATION ASSOCIATE BUN (Blood Urea 5 (L) 6 - 21 07/17/2020 [facility] Nitrogen), P mg/dL 5:02 PM TRANSPORTATION ASSOCIATE Creatinine 0.81 0.59 - 07/17/2020 [facility] 1.04 mg/dL 5:02 PM TRANSPORTATION ASSOCIATE eGFR-Black/Afric >90 >=60 07/17/2020 [facility] an Guatemalan mL/min/BSA 5:02 PM TRANSPORTATION ASSOCIATE Comment: ----ADDITIONAL INFORMATION---- Estimated GFR calculated using the 2009 CKD_EPI creatinine equation. eGFR Non-Black/ >90 >=60 mL/min/BSA 07/17/2020 5:02 PM TRANSPORTATION ASSOCIATE [facility] Comment: ----ADDITIONAL INFORMATION---- Estimated GFR calculated using the 2009 CKD_EPI creatinine equation. Calcium, Total, P 9.0 8.6 - 10.0 mg/dL 07/17/2020 5:02 PM TRANSPORTATION ASSOCIATE [facility] Glucose, P 72 70 - 140 mg/dL 07/17/2020 5:02 PM TRANSPORTATION ASSOCIATE O INDIGO Specimen Anatomical Collection Method Collection Time Receive d Time (Source) Location / / Volume Laterality Blood (Blood, 07/17/2020 12:35 07/17/2020 4:47 Venous) PM TRANSPORTATION ASSOCIATE PM TRANSPORTATION ASSOCIATE Gagan Tilley M.D. LAB BLOOD ADD-ON Performing Organization Address City/State/ZIP Code Phon e Number [facility]- [address] [place] [address] [facility] [place] [address] System in [place] [address] documented in this encounter Visit Diagnoses Diagnosis Hypokalemia documented in this encounter Care Teams Merchandise Manager Relationship Specialty Start Date End Date Matheus Feliciano M.B.BRafalSRafal, MDonald. PCP - General Family Medicine 01/09/[address] [place] [address] P[place] Velez [phone] documented as of this encounter
--- OUTSIDE RECORDS SUMMARY | 2022-04-29 07:37 | XMS_ITS | Encounter Summary ---
:1980 Author Organization [facility] Address [address] [place] [address] Care Team Providers Name Role Phone Matheus Feliciano M.D. Primary Care Provider [phone] Encounter Details Date Type Department Care Team Description 07/12/2020 Clinical Communication Department of Matheus [facility], Prabhu Parmar, Clinic, in [place] [address] [address] [phone] Social History Tobacco Use Types Packs/Day Years [...] do you attend holiness or Never 2021 worship services? Do you [...] at Date Recorded Female 09/01/2021 7:35 PM MALE IMPERSONATOR documented as of this encounter Miscellaneous Notes Telephone Encounter - Gricelda Roach - 07/12/2020 11:[address] questionnaire completed and faxed. IMPERSONATOR Telephone Encounter - Ariane Self - 07/12/2020 11:03 AM CST Patient has CT order in queue. Please fill out this CT questionnaire and fax to [phone]. Thank you. IMPERSONATOR documented in this encounter Plan of Treatment Not on filedocumented as of this encounter Visit Diagnoses Not on filedocumented in this encounter Care Teams Hemodialysis Rn Relationship Specialty Start Date End Date Matheus Feliciano M.B.B.S., MDonald. PCP - General Family Medicine 01/09/[address] [place] [address] PANK[place] Velez [phone] documented as of this encounter
--- OUTSIDE RECORDS SUMMARY | 2022-04-29 07:37 | XMS_ITS | Encounter Summary ---
:1980 Author Organization [facility] Address [address] [place] [address] Care Team Providers Name Role Phone Matheus Feliciano M.D. Primary Care Provider [phone] Reason for Visit Reason Comments Blood in Urine Urinary Frequency Outpatient (Routine) - Closed Specialty Diagnoses / Procedures Referred By Contact Refer red To Contact Urology Diagnoses Hematuria Gross Urgency Urinary Gagan Tilley M.D. [facility] Region [address] [place] [address] Referral ID Status Reason Start Date Expiration Date Visits Requ ested Visits Authorized [id number] Closed 06/26/2020 06/26/2021 1 1 Encounter Details Date Type Department Care Team Description 09/06/2020 Comprehensive Visit Department of Urology Tan Bernstein ex, Hematuria Gross; in [place] Urgency Urinary [place] [address] [facility] [place] P[place] BAUM[place] [phone] Social History Tobacco Use Types Packs/Day [...] do you attend synagogue or Never 2021 synagogue services? Do you [...] Recorded Female 09/01/2021 7:35 PM IN SERVICE COORDINATOR documented as of this encounter Last Filed Vital Signs Vital Sign Reading Time Taken Comments Blood Pressure - - Pulse 96 09/06/2020 3:45 PM IN SERVICE COORDINATOR Temperature 36.5 ??C (97.7 ??F) 09/06/2020 3:45 PM IN SERVICE COORDINATOR Respiratory Rate - - Oxygen Saturation 100% 09/06/2020 3:45 PM IN SERVICE COORDINATOR Inhaled Oxygen Concentration - - Weight - [...] More than three times a week Attends synagogue service: Never Active member of club or [...] by: Rebel Bernstein M.D. 09/06/20 5:19 PM IN SERVICE COORDINATOR SERVICE COORDINATOR documented in this encounter Plan of Treatment Not on filedocumented as of this encounter Results Cytology Non-HONEYCOMB DECAPPER (Scheduled) (10/08/2020 12:52 PM IN SERVICE COORDINATOR) Component Value Ref Test Analysis Performed At [facility] Range Method Time Signature 10/09/2020 [facility] 11:49 AM IN SERVICE COORDINATOR Fixative 50% 10/09/2020 [facility] 11:49 AM IN SERVICE COORDINATOR Report Irena Bhandari MD 10/09/2020 [facility] electronically I verify that I have examined all relevant slides/ma terials 11:49 AM signed by for the specimen(s) and rendered or confirmed the diagnosis. IN SERVICE COORDINATOR Gross Description 100 ml of 10/09/2020 [facility] clear yellow 11:49 AM fluid IN SERVICE COORDINATOR received. Collection clean void 10/09/2020 [facility] Procedure 11:49 AM IN SERVICE COORDINATOR Source A. Urine, 10/09/2020 [facility] Clean Catch, 11:49 AM voided IN SERVICE COORDINATOR Clinical History unknown 10/09/2020 [facility] 11:49 AM IN SERVICE COORDINATOR Interpretation A. 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 11:49 A M IN SERVICE COORDINATOR Specimen Anatomical Collection Method Collection Time Receive d Time (Source) Location / / Volume Laterality Varies (Urine, 10/08/2020 12:52 8:14 Clean Catch) PM IN SERVICE COORDINATOR AM IN SERVICE COORDINATOR Narrative This result has an attachment that is no t available. Rebel Bernstein M.D. LAB SURG PATH ORDERABLES Performing Organization Address City/State/ZIP Code Phon e Number [facility]- [facility] [place] [address] [facility] [place] [address] [facility] [address] [place] [address] Bacterial Culture, Aerobic + Susc, Urine (10/08/2020 12:52 PM IN SERVICE COORDINATOR) [facility] Method Time Signature Urine Culture No growth 10/09/2020 MKTO after 1 day 4:39 PM IN SERVICE COORDINATOR of incubation. Specimen Anatomical Collection Method Collection Time Receive d Time (Source) Location / / Volume Laterality Urine (Urine, 10/08/2020 12:52 10/08/2020 6:59 Midstream) PM IN SERVICE COORDINATOR PM IN SERVICE COORDINATOR Comment: Specimen Source Site: Urine Rebel Bernstein M.D. LAB MICROBIOLOGY - GENERAL O RDERABLES Performing Organization Address City/State/ZIP Code Phon e Number [facility]- [address] [place] [address] [facility] [place] [address] System in [address] documented in this encounter Visit Diagnoses Diagnosis Hematuria Gross Urgency Urinary documented in this encounter Care Teams On Site Construction Superintendent Relationship Specialty Start Date End Date Matheus Feliciano M.B.BRafalSJose Lyles. PCP - General Family Medicine 01/09/[address] [place] [phone] documented as of this encounter
--- OUTSIDE RECORDS SUMMARY | 2022-04-29 07:37 | XMS_ITS | Encounter Summary ---
:1980 Author Organization [facility] Address [address] [place] [address] Care Team Providers Name Role Phone Matheus Feliciano M.D. Primary Care Provider [phone] Reason for Visit Reason Comments Med Refill Encounter Details Date Type Department Care Team Description 07/11/2020 Refill Department of Family Medicine, Matheus Feliciano I., Med Refill [facility], in [place], [place] 300 [facility] [address] [place] [address] [place] [address] [phone] Social History Tobacco Use Types Packs/Day Years [...] do you attend baptism or Never 2021 alevism services? Do you [...] at Date Recorded Female 09/01/2021 7:35 PM MUTUAL FUND SALES AGENT documented as of this encounter Miscellaneous Notes Telephone Encounter - Jayna Mckeon R.N. - 07/13/2020 9:08 AM CST Portal message sent to patient in regards to potassium chloride prescription declined by PCP. AL FUND SALES AGENT Telephone Encounter - Jayna Mckeon R.N. - 07/11/2020 3:38 PM CST Patient requesting refill of potassium chloride (Klor-Con) 10 meq. LV: 06/26/2020 LF: 03/13/2020, 30 tablets, 2 refills Pended medication. Please advise. AL FUND SALES AGENT Telephone Encounter - Lelo Mayer - 07/11/2020 3:30 PM CST Nurse review: Unable to forward request to provider; Not on med list Primary Provider: Matheus Feliciano M.D. Name of medication: Klor Con Strength: M10 ER 10MEQ tab Frequency: Take 1 tab PO once daily with breakfast Quantity: 30 Refills: Not provided Last Refill: 03/13/2020 Pharmacy: [facility] [place] AL FUND SALES AGENT documented in this encounter Plan of Treatment Not on filedocumented as of this encounter Visit Diagnoses Diagnosis Sleep Related Leg Cramps - Primary documented in this encounter Care Teams Telehealth Nurse Relationship Specialty Start Date End Date Matheus Feliciano M.B.B.S., M.D. PCP - General Family Medicine 01/09/[address] [place] [address] P[place] Velez [phone] documented as of this encounter
--- OUTSIDE RECORDS SUMMARY | 2022-04-29 07:37 | XMS_ITS | Encounter Summary ---
:[address] [facility] Address [address] [place] [address] Care Team Providers Name Role Phone Matheus Feliciano M.D. Primary Care Provider [phone] Encounter Details Date Type Department Care Team Description 07/25/2020 Orders Only Department of Urology in Rebel Rodriguez M.D. [place], [place] [address] [place] [address] [phone] (Wo rk) Social History Tobacco Use Types [...] at Date Recorded Female 09/01/2021 7:35 PM VOLUNTEER RECRUITMENT COORDINATOR documented as of this encounter Plan of Treatment Not on filedocumented as of this encounter Visit Diagnoses Not on filedocumented in this encounter Care Teams Fund Raiser Relationship Specialty Start Date End Date Matheus Feliciano M.B.BRafalSRafal, Jose. PCP - General Family Medicine 01/09/[address] [place] [address] P[place] Velez [phone] documented as of this encounter
--- OUTSIDE RECORDS SUMMARY | 2022-04-29 07:37 | XMS_ITS | Encounter Summary ---
:1980 Author Organization [facility] Address [address] [place] [address] Care Team Providers Name Role Phone Matheus Feliciano M.D. Primary Care Provider [phone] Reason for Visit Reason Comments COVID Inquiry Encounter Details Date Type Department Care Team Description 06/20/2020 Clinical Communication Department of [facility] Matheus Feliciano Medicine, Prabhu Parmar, Clinic, in [place] 300 [facility] [address] [place] [address] [phone] Social History Tobacco Use Types Packs/Day Years [...] do you attend synagogue or Never 2021 gnosticist services? Do you [...] at Date Recorded Female 09/01/2021 7:35 PM PREVENTIVE MEDICINE SPECIALIST documented as of this encounter Miscellaneous [...] sending patient for testing in [facility], an email notification is required. ENTIVE MEDICINE SPECIALIST documented in this encounter Plan of Treatment Not on filedocumented as of this encounter Visit Diagnoses Not on filedocumented in this encounter Care Teams Parquet Floor Layer'S Helper Relationship Specialty Start Date End Date Matheus Feliciano M.B.B.S., M.D. PCP - General Family Medicine 01/09/[address] [place] [address] Faye UnderwoodPANKAJ woody [phone] documented as of this encounter
--- OUTSIDE RECORDS SUMMARY | 2022-04-29 07:37 | XMS_ITS | Encounter Summary ---
:1980 Author Organization [facility] Address [address] [place] [address] Care Team Providers Name Role Phone Matheus Feliciano M.D. Primary Care Provider [phone] Reason for Referral Outpatient (Routine) - Closed Specialty Diagnoses / Procedures Referred By Contact Refer red To Contact Urology Sushila Mcneill APRN, R.NRafal CHAVARRIA [facility] [address] [phone] Referral ID Status Reason Start Date Expiration Date Visits Requ ested Visits Authorized [id number] Closed 09/11/2020 09/11/2021 1 1 utpatient (Routine) - Closed Specialty Diagnoses / Procedures Referred By Contact Refer red To Contact Family Medicine Diagnoses Stenosis Meatal Hematuria Sushila Mcneill [facility] PAT, R.N. [address] [place] [phone] Referral ID Status Reason Start Date Expiration Date Visits Requ ested Visits Authorized [id number] Closed 09/11/2020 09/11/2021 1 1 ING TECHNICIAN Encounter Details Date Type Department Care Team Description 09/11/2020 Orders Only Department of Urology Sushila Mcneill Stenosis Meatal (Primary Dx); in [place], PAT, R.N. [facility] [address] [place] [address] [phone] Social History Tobacco Use Types Packs/Day Years [...] do you attend buddhism or Never 2021 restorationism services? 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 documented as of this encounter Plan of Treatment Scheduled Referrals Name Type Priority Associated Diagnoses Order S zahira [facility] - [facility] Outpatient Referral Routine Stenosis Meatal Expected: consult (clinic) Hematuria 09/11/2020 (Approximate), Expires: 09/11/2023 Urology Post Op Outpatient Referral Routine Expec kathleen: (clinic) 09/18/2020 (Approximate), Expires: 09/11/2023 documented as of this encounter Results SARS Coronavirus-2 RNA, V Asymptomatic (09/16/2020 4:43 PM ROOFING TECHNICIAN) [facility] Method Time Signature SARS-CoV-2 Swab, 09/17/2020 MKTO Specimen Nasopharynx 4:27 AM ROOFING TECHNICIAN Source SARS CoV-2 Undetected Undetected 09/17/2020 MKTO RNA, TMA 4:27 AM ROOFING TECHNICIAN Comment: SARS-CoV-2 RNA absent. This result does not rule out COVID-19 in the patient, as the sensitivity of the test depends o n the timing of the specimen collection and the quality of the specim en. Result should be correlated with patient's history and clinical presentat ion. ----ADDITIONAL INFORMATION---- This molecular amplification test was pe rformed using the Aptima SARS-CoV-2 assay ([employer] on the 800APPs tem under emergency use authorization (EUA) by the U.S. Food and Drug Administ ration. Fact sheets for this EUA assay can be fo und at the following links: For Healthcare Providers: https://www.fd a.gov/media/832129/download For Patients: https://www.fda.gov/media/ 728137/download Specimen Anatomical Collection Method Collection Time Receive d Time (Source) Location / / Volume Laterality Varies 09/16/2020 4:43 PM (Nasopharynx) ROOFING TECHNICIAN 10:53 PM ROOFING TECHNICIAN Sushila Mcneill APRN RIsiah LAB MICROBIOLOGY - GENERA L ORDERABLES Performing Organization Address City/State/ZIP Code Phon e Number [facility]- [address] [place] [address] [place] [address] [address] documented in this encounter Visit Diagnoses Diagnosis Stenosis Meatal - Primary Hematuria documented in this encounter Care Teams Diesel Engine Mechanic Apprentice Relationship Specialty Start Date End Date Matheus Feliciano M.B.B.S., RandiD. PCP - General Family Medicine 01/09/[address] [place] [address] [place] [phone] documented as of this encounter
--- OUTSIDE RECORDS SUMMARY | 2022-04-29 07:37 | XMS_ITS | Encounter Summary ---
:1980 Author Organization [facility] Address [address] [place] [address] Care Team Providers Name Role Phone Matheus Feliciano M.D. Primary Care Provider [phone] Reason for Referral Outpatient (Routine) - Closed Specialty Diagnoses / Procedures Referred By Contact Refer red To Contact Diagnoses Preoperative Exam Seizure (HCC) Brigette Cardona APRN, C.N.P. [facility] Procedures ECG 12 Lead [address] [place] [address] Referral ID Status Reason Start Date Expiration Date Visits Requ ested Visits Authorized [id number] Closed 09/14/2020 09/14/2021 1 1 RUCTION LIBRARIAN Reason for Visit Reason Comments Pre-op Exam scope to look at bladder. Outpatient (Routine) - Closed Specialty Diagnoses / Procedures Referred By Contact Refer red To Contact Family Medicine Diagnoses Stenosis Meatal Hematuria Sushila Mcneill [facility] PRINCIPAL ARCHAEOLOGIST, R.N. [address] [place] [address] Referral ID Status Reason Start Date Expiration Date Visits Requ ested Visits Authorized [id number] Closed 09/11/2020 09/11/2021 1 1 Encounter Details Date Type Department Care Team Description 09/14/2020 Office Visit Department of Family Brigette Cardona, Preope rative Exam (Primary Dx); Medicine, [place] PAT, C.N.P. Seizure (HCC); Clinic, in [place], Attent ion Deficit Hyperactive Disorder; [place] Stenosis Meatal; [address] [facility] [place] [address] Social History Tobacco Use [...] do you attend christianity or Never 2021 jainism services? Do you [...] at Date Recorded Female 09/01/2021 7:35 PM INSTRUCTION LIBRARIAN documented as of this encounter Last Filed Vital Signs Vital Sign Reading Time Taken Comments Blood Pressure 103/66 09/14/2020 11:34 AM INSTRUCTION LIBRARIAN Pulse 81 09/14/2020 11:34 AM INSTRUCTION LIBRARIAN Temperature 36.5 ??C (97.7 ??F) 09/14/2020 11:34 AM INSTRUCTION LIBRARIAN Respiratory Rate 16 09/14/2020 11:34 AM INSTRUCTION LIBRARIAN Oxygen Saturation - - Inhaled Oxygen Concentration - - Weight 67.6 kg (149 lb 0.5 oz) 09/14/2020 11:34 AM INSTRUCTION LIBRARIAN Height 164 cm (5' 4.57) 09/14/2020 11:34 AM INSTRUCTION LIBRARIAN Body Mass Index 25.13 09/14/2020 11:34 AM INSTRUCTION LIBRARIAN documented in this encounter Patient Instructions Patient InstructionsBrigette Cardona APRN, C.N.P. - 09/14/2020 11:30 AM INSTRUCTION LIBRARIAN Preop Instructions: No food or drink after [...] unless otherwise instructed per discussion in clinic. RUCTION LIBRARIAN documented in this encounter H&P Notes Brigette Cardona APRN, C.N.P. - 09/14/2020 11:30 AM CST SUBJECTIVE CHIEF COMPLAINT/REASON FOR VISIT Proposed surgery date: 09/19/20 Surgeon: Dr. Bernstein Proposed surgery: 1. URETHRAL DILATION 2. DIAGNOSTIC CYSTOSCOPY Location: [facility] HISTORY OF PRESENT ILLNESS Gricelda Roberts is [...] understanding and agreement with the above plan. RUCTION LIBRARIAN documented in this encounter Plan of Treatment Not on filedocumented as of this encounter Procedures Procedure Name Priority Date/Time Associated Diagnosis Comme nts ECG Routine 09/14/2020 12:33 PM Preoperative Exam Results for this INSTRUCTION LIBRARIAN Seizure (HCC) procedure are in the results section. documented in this encounter Results Hemoglobin (09/14/2020 12:35 PM INSTRUCTION LIBRARIAN) athologist Signature Hemoglobin 14.0 11.6 - 15.0 09/14/2020 FB60 g/dL 1:02 PM INSTRUCTION LIBRARIAN Specimen Anatomical Collection Method Collection Time Receive d Time (Source) Location / / Volume Laterality Blood (Blood, 09/14/2020 12:35 09/14/2020 Venous) PM INSTRUCTION LIBRARIAN 12:42 PM INSTRUCTION LIBRARIAN Brigette Jenny Brendan STEWART, C.N.P. LAB BLOOD ADD-ON Performing Organization Address City/State/ZIP Code Phon e Number [facility]- [address] [place] [address] [facility] [address] [place] [address] System in [place] [address] ECG 12 Lead (09/14/2020 12:33 PM INSTRUCTION LIBRARIAN) P athologist Signature Ventricular Rate 58 BPM MUSE ECG/Min OR Interval 128 ms MUSE QRSD Interval 90 ms MUSE QT Interval 460 ms MUSE QTC Interval 451 ms MUSE P [place] 38 degrees MUSE R [place] 49 degrees MUSE T Wave [place] 56 degrees MUSE Specimen Anatomical Collection Method Collection Time Receive d Time (Source) Location / / Volume Laterality 09/14/2020 12:33 09/14/2020 3:05 PM INSTRUCTION LIBRARIAN PM INSTRUCTION LIBRARIAN Impressions MUSE - 10/10/2020 2:04 PM INSTRUCTION LIBRARIAN Sinus bradycardia Otherwise normal ECG No previous [...] Hematuria documented in this encounter Care Teams Division Service Manager Relationship Specialty Start Date End Date Matheus Feliciano M.B.B.S., M.D. PCP - General Family Medicine 01/09/20 [address] [facility] [place] [phone] documented as of this encounter
--- OUTSIDE RECORDS SUMMARY | 2022-04-29 07:37 | XMS_ITS | Encounter Summary ---
:1980 Author Organization [facility] Address [address] [place] [address] Care Team Providers Name Role Phone Matheus Feliciano M.D. Primary Care Provider [phone] Reason for Visit Reason Comments Medication Question Encounter Details Date Type Department Care Team Description 09/06/2020 Clinical Communication Department of Sonia Bustamante [facility] Question Urology in , [place], [place] [address] [place] [phone] Social History Tobacco Use Types Packs/Day Years [...] do you attend orthodox or Never 2021 jewish services? 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 - 09/06/2020 6:18 PM CST Patient called urology to inform that Rx that Dr. Bernstein has sent in needs a PA. Patient informed pharmacy should initiate PA request and [place] will receive their portion to fill out. Patient was alsogiven PA phone number to inquire about a status in the near future, verbalized understanding. CIENCY CLERK documented in this encounter Plan of Treatment Not on filedocumented as of this encounter Visit Diagnoses Not on filedocumented in this encounter Care Teams Emergency Medicine Medical Director Relationship Specialty Start Date End Date Matheus Feliciano M.B.BRafalSRafal, Jose. PCP - General Family Medicine 01/09/[address] [place] [phone] documented as of this encounter
--- OUTSIDE RECORDS SUMMARY | 2022-04-29 07:38 | XMS_ITS | Encounter Summary ---
:1980 Author Organization [facility] Address [address] [place] [address] Care Team Providers Name Role Phone Bonnie Franz M.D. Primary Care Provider + [phone] Reason for Visit Reason Comments COVID Nurse Line Encounter Details Date Type Department Care Team Description 12/16/2019 Nurse Triage Department of [facility] Nolvia Tomlinson COVI D Nurse Line Medicine, [facility], [facility] in [place], [place] [address] [facility] [address] [place] [phone] Social History Tobacco Use Types Packs/Day Years [...] do you attend buddhist or Never 2021 roman catholic services? 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 PCP - General Family Medicine 08/25/18 01/08/[address] [place] [address] documented as of this encounter
--- OUTSIDE RECORDS SUMMARY | 2022-04-29 07:38 | XMS_ITS | Encounter Summary ---
:1980 Author Organization [facility] Address [address] [place] [address] Care Team Providers Name Role Phone Matheus Feliciano M.D. Primary Care Provider [phone] Reason for Visit Reason Comments Med Refill Encounter Details Date Type Department Care Team Description 03/11/2020 Refill Department of Family Medicine, Matheus Feliciano I., Med Refill [facility], in [place], [place] 300 [facility] 300 [place] [address] [place] [address] [phone] Social History Tobacco Use Types Packs/Day Years [...] do you attend faith or Never 2021 taoist services? Do you [...] Recorded Female 09/01/2021 7:35 PM ASSOCIATE DIRECTOR QA documented as of this encounter Plan of Treatment Not on filedocumented as of this encounter Visit Diagnoses Not on filedocumented in this encounter Care Teams Customs Broker Relationship Specialty Start Date End Date Matheus Feliciano M.B.B.S., Jose. PCP - General Family Medicine 01/09/[address] [place] [address] [place] [address] documented as of this encounter
--- OUTSIDE RECORDS SUMMARY | 2022-04-29 07:38 | XMS_ITS | Encounter Summary ---
:1980 Author Organization [facility] Address [address] [place] [address] Care Team Providers Name Role Phone Faby Feliciano M.D. Primary Care Provider [phone] Reason for Referral Outpatient (Routine) - Closed Specialty Diagnoses / Procedures Referred By Contact Refer red To Contact Faby Feliciano M.B.B.S., [facility] [address] [place] [address] Referral ID Status Reason Start Date Expiration Date Visits Requ ested Visits Authorized [id number] Closed 04/11/2020 04/11/2021 5 5 Reason for Visit Reason Comments Follow-up Encounter Details Date Type Department Care Team Description 04/10/2020 Clinical Communication Department of [facility] Faby Feliciano Follow-up Medicine, Prabhu Parmar, [place] 300 [facility] 300 [place] [phone] Social History Tobacco Use [...] you attend roman catholic or Never 2021 hoahaoism services? 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 Prescriptions were sent into the [facility] pharmacy in [place]. Patient has been doing this for 7 years due to having a gastric bypass. Patient wants to continue doing this. Her insurance charges her $1 per injection doing itat home rather than a much larger amount to come into the clinic monthly. Plus [facility]. Please send prescription for 3 month to [facility]. Name of Medication: Vitamin B12 Primary Provider: Prabhu Urrutia M.D. Strength: 1000mcg/ml injection Frequency: 1x monthly Pharmacy (include location): [facility] Telephone Encounter - Dianne Roche - 04/11/2020 [...] Routine 5 Occurrences visit (clinic) - starting [facility]; until 09/2022 Medication injection (order medication); B12 documented as of this encounter Visit Diagnoses Not on filedocumented in this encounter Care Teams Business Law Teacher Relationship Specialty Start Date End Date Faby Feliciano M.B.B.S., M.D. PCP - General Family Medicine 01/09/[address] [place] [phone] documented as of this encounter
--- OUTSIDE RECORDS SUMMARY | 2022-04-29 07:38 | XMS_ITS | Encounter Summary ---
:1980 Author Organization [facility] Address [address] [place] [address] Care Team Providers Name Role Phone Matheus Feliciano M.D. Primary Care Provider [phone] Reason for Visit Reason Comments Post Hospital Follow-up Encounter Details Date Type Department Care Team Description 04/17/2020 Clinical Communication [facility] in [address] [address] [place], [place] [phone] (Work) [phone] Social History Tobacco Use Types Packs/Day Years [...] do you attend latter-day or Never 2021 advent services? Do you [...] at Date Recorded Female 09/01/2021 7:35 PM OVERHAULER documented as of this encounter Miscellaneous Notes [...] it could be due to scar tissue. Internal Communications Specialist explained that the area could take longer in healing or be more sensitive. Internal Communications Specialist encouraged patient to call the clinic if [...] on filedocumented in this encounter Care Teams Food Cooking Machine Operator Relationship Specialty Start Date End Date Matheus Feliciano M.B.B.S. MDonald. PCP - General Family Medicine 01/09/[address] [place] [address] [place] [phone] documented as of this encounter
--- OUTSIDE RECORDS SUMMARY | 2022-04-29 07:38 | XMS_ITS | Encounter Summary ---
:1980 Author Organization [facility] Address [address] [place] [address] Care Team Providers Name Role Phone Bonnie Franz M.D. Primary Care Provider + [phone] Reason for Visit Reason Comments COVID Nurse Line Encounter Details Date Type Department Care Team Description 12/16/2019 Clinical Communication Division of Linda Gaston Nurse Line [facility] M, R.N. [facility] [address] [place] [address] in [facility] [address] [place] [phone] 200 [facility] (Work) [place] [phone] Social History Tobacco Use Types Packs/Day Years [...] do you attend orthodoxy or Never 2021 jain services? 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 Patient denies the presence of COVID-19 symptoms upon questioning. She has not had close contact with a person who has found to have a laboratory confirmed case of COVID-19. No testing or isolation is indicated at this time. She is encouraged to call back with symptoms, questions, or concerns. Patient was transferred to the nurse line for symptom assessment. ASSESSMENT COVID 19 Screening Have you had close contact with a person who has a LABORATORY CONFIRMED case of COVID-19?: No - Continue screening. In the last 48 hours have you had any of the following symptoms?: No - Complete screening. Consider alternative diagnosis. We are not currently testing or isolating patients or visitors who have no symptoms and no close contact. PLAN Endpoint recommendation: Screening negative, testing not indicated at this time Care Points provided: STANDARD PRECAUTIONS FOR ALL PATIENTS: Wash hands often with soap and water for at least 20 seconds, especially after blowing your nose, coughing, sneezing, or having been in a public place. If soap and water aren't available, use a hand technical project manager that contains at least 60% alcohol. Avoid close contact with anyone who may be exhibiting respiratory symptoms such as coughing and sneezing. Avoid touching your eyes, nose and mouth. Clean and disinfect frequently touched surfaces daily. Cover your mouth and nose with a cloth face cover when around others or in public. The cloth face cover is not a substitute for social distancing. Continue to keep about 6 feet between yourself andothers. Stay home as much as possible (only going out for essential items or medical care). Educational Resource: https://www.cdc.gov/coronavirus/2019-ncov/bcgvxoa-iyyojsj-enaq/index.html Education: patient/caregiver Patient/caregiver able to teach back Patient agreeable to plan of care: Yes The following references were used: [facility] novel coronavirus (COVID- 19) resources Nursing judgement documented in this encounter Plan of Treatment Not on filedocumented as of this encounter Visit Diagnoses Not on filedocumented in this encounter Care Teams Programming Intern Relationship Specialty Start Date End Date Bonnie Franz M.D. PCP - General Family Medicine 08/25/18 01/08/[address] [phone] documented as of this encounter
--- OUTSIDE RECORDS SUMMARY | 2022-04-29 07:38 | XMS_ITS | Encounter Summary ---
:1980 Author Organization [facility] Address [address] [place] [address] Care Team Providers Name Role Phone Bonnie Franz M.D. Primary Care Provider [phone] Reason for Visit Reason Comments Med Refill Encounter Details Date Type Department Care Team Description 12/18/2019 Refill Department of Family Medicine, [place] Wiseman Med Refill [facility], in Bonnie [place] M.D. [place] [address] [address] [place] [address] [phone] Social History Tobacco Use Types Packs/Day Years [...] do you attend yarsanism or Never 2021 jew services? 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 PCP - General Family Medicine 08/25/18 01/08/[address] [phone] documented as of this encounter
--- OUTSIDE RECORDS SUMMARY | 2022-04-29 07:38 | XMS_ITS | Encounter Summary ---
:1980 Author Organization [facility] Address [address] [place] [address] Care Team Providers Name Role Phone Matheus Feliciano M.D. Primary Care Provider [phone] Reason for Visit Reason Comments Med Refill Encounter Details Date Type Department Care Team Description 01/09/2020 Refill Department of Family Medicine, Matheus Feliciano I., Med Refill [facility], in [place], [place] 300 [facility] 300 [place] [address] [place] [address] [phone] Social History Tobacco Use Types Packs/Day Years [...] do you attend methodist or Never 2021 orthodox services? 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 PCP - General Family Medicine 01/09/[address] [place] [address] [place] [address] documented as of this encounter
--- OUTSIDE RECORDS SUMMARY | 2022-04-29 07:38 | XMS_ITS | Encounter Summary ---
:1980 Author [address] [facility] Address [address] [place] [address] Care Team Providers Name Role Phone Matheus Feliciano M.D. Primary Care Provider [phone] Encounter Details Date Type Department Care Team Description 03/05/2020 Hospital Encounter Department of Matheus Feliciano [facility] hyroidism Laboratory Medicine in Prabhu Moss [place] 300 [facility] 300 [place] [address] [phone] Social History Tobacco Use Types Packs/Day Years [...] do you attend adventism or Never 2021 voodoo services? 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 ??If the result does not [facility] clinical observations, repeat testing after patient refrains fr om the use of supplements for at least 12 hours. Specimen Anatomical Collection Method Collection Time Receive d Time (Source) Location / / Volume Laterality Blood (Blood, 03/05/2020 12:38 03/05/2020 3:41 Venous) PM CDT PM CDT Matheus Pelletier M.D. LAB BLOOD ADD-ON Performing Organization Address City/State/ZIP Code Phon e Number - [address] [place] [address] [place] [address] System in [place] [address] documented in this encounter Visit Diagnoses Diagnosis Hypothyroidism documented in this encounter Care Teams Dry Molder Relationship Specialty Start Date End Date Matheus Feliciano M.B.B.S., M.D. PCP - General Family Medicine 01/09/[address] [place] [address] documented as of this encounter
--- OUTSIDE RECORDS SUMMARY | 2022-04-29 07:38 | XMS_ITS | Encounter Summary ---
:1980 Author Organization [facility] Address [address] [place] [address] Care Team Providers Name Role Phone Matheus Feliciano M.D. Primary Care Provider [phone] Reason for Visit Reason Comments Med Refill Encounter Details Date Type Department Care Team Description 03/26/2020 Refill [facility] at Lashae Quinteros, [facility] C.N.PRafal [address] [place], [place] [address] [place] [phone] (Wo rk) Social History Tobacco Use Types [...] do you attend gnosticism or Never 2021 restorationist services? 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 PCP - General Family Medicine 01/09/[address] [place] [address] [place] [phone] documented as of this encounter
--- OUTSIDE RECORDS SUMMARY | 2022-04-29 07:38 | XMS_ITS | Encounter Summary ---
:1980 Author Organization [facility] Address [address] [place] [address] Care Team Providers Name Role Phone Matheus Feliciano M.D. Primary Care Provider [phone] Encounter Details Date Type Department Care Team Description 02/16/2020 Hospital Encounter Department of Rick Brown Nausea A nd Vomiting Laboratory Medicine M.DRafal in [facility] [address] [phone] [address] (Work) [phone] Social History Tobacco Use Types Packs/Day Years [...] do you attend scientology or Never 2021 jewish services? 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 LAB BLOOD ADD-ON Performing Organization Address [facility] Code Phon e Number [facility]- [address] [place] [phone] [place] [address] CRP (C-Reactive Protein) (02/16/2020 12:07 PM [...] e Number [facility]- [address] [place] [address] [place] [address] System in [place] [address] documented in this encounter Visit Diagnoses Diagnosis Nausea And Vomiting documented in this encounter Care Teams Sales Negotiator Relationship Specialty Start Date End Date Matheus Feliciano M.B.B.S., M.D. PCP - General Family Medicine 01/09/[address] [place] [address] documented as of this encounter
--- OUTSIDE RECORDS SUMMARY | 2022-04-29 07:38 | XMS_ITS | Encounter Summary ---
:1980 Author Organization [facility] Address [address] [place] [address] Care Team Providers Name Role Phone Matheus Feliciano M.D. Primary Care Provider [phone] Reason for Visit Reason Comments Medication Visit est. care Appointment Request (Routine) - Closed Specialty Diagnoses / Procedures Referred By Contact Refer red To Contact Family Medicine Referral ID Status Reason Start Date Expiration Date Visits Requ ested Visits Authorized [id number] Closed 01/09/2020 01/08/2021 1 1 Encounter Details Date Type Department Care Team Description 01/10/2020 Office Visit Department of Family Matheus Feliciano Hypo thyroidism (Primary Dx); Medicine, Prabhu Parmar, Seizure (HCC); Clinic, in [place] Attention Deficit Hyperactive Disorder [place] 300 [facility] 300 [place] [phone] Social History Tobacco Use Types Packs/Day Years [...] do you attend hindu or Never 2021 mormon services? 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 documented in this encounter [...] supplements. ??If the result does not [facility] clinical observations, repeat testing after patient refrains fr om the use of supplements for at least 12 hours. Specimen Anatomical Collection Method Collection Time Receive d Time (Source) Location / / Volume Laterality Blood (Blood, 03/05/2020 12:38 03/05/2020 3:41 Venous) PM CDT PM CDT Matheus Pelletier M.D. LAB BLOOD ADD-ON Performing Organization Address City/State/ZIP Code Phon e Number [facility]- [address] [place] [address] [place] [address] System in [place] [address] CBC with Differential, Blood [...] City/State/ZIP Code Phon e Number [facility]- [address] [place] [address] [facility] [address] [place] [address] System in [place] [address] (ABNORMAL) Basic Metabolic Panel [...] CDT eGFR-Black/Afri >90 >=60 01/10/2020 [place] can [place] Citizen mL/min/BSA 4:19 PM CDT Comment: ----ADDITIONAL INFORMATION---- [...] M.D. LAB BLOOD ADD-ON Performing Organization Address City/[facility] Code Phon e Number [facility]- [address] [place] [facility] [place] [address] [place] [address] System in [place] [address] (ABNORMAL) S-TSH (Thyroid-Stimulating Hormone - Sensitive) (01/10/2020 12:14 PM CDT) athologist Signature TSH, Sensitive 0.08 (L) 0.3 - 4.2 01/10/2020 OW mIU/L 4:59 PM CDT Comment: Biotin has been identified by the kayley granger as a potential interfering substance. ??Higher concentr ations of biotin may be found in multivitamins, hair/nail supple ments, and workout supplements. ??If the result does not [facility] clinical observations, repeat testing after patient refrains fr om the use of supplements for at least 12 hours. Specimen Anatomical Collection Method Collection Time Receive d Time (Source) Location / / Volume Laterality Blood (Blood, 01/10/2020 12:14 01/10/2020 4:03 Venous) PM CDT PM CDT Matheus Pelletier M.D. LAB BLOOD ADD-ON Performing Organization Address City/State/ZIP Code Phon e Number [facility]- [address] [place] [facility] [place] [address] [place] [address] System in [place] [address] documented in this encounter Visit Diagnoses Diagnosis Hypothyroidism - Primary Seizure (HCC) Attention Deficit Hyperactive Disorder documented in this encounter Care Teams Manager Telemarketing Relationship Specialty Start Date End Date Matheus Feliciano M.B.B.S., M.D. PCP - General Family Medicine 01/09/[address] [place] [address] [place] [address] documented as of this encounter
--- OUTSIDE RECORDS SUMMARY | 2022-04-29 07:38 | XMS_ITS | Encounter Summary ---
:1980 Author Organization [facility] Address [address] [place] [address] Care Team Providers Name Role Phone Matheus Feliciano M.D. Primary Care Provider [phone] Reason for Visit Reason Comments Pre-op Exam [facility] [place] Apr 12 hiatal hernia Appointment Request (Routine) - Closed Specialty Diagnoses / Procedures Referred By Contact Refer red To Contact Family Medicine Referral ID Status Reason Start Date Expiration Date Visits Requ ested Visits Authorized [id number] Closed 03/27/2020 03/27/2021 1 1 Encounter Details Date Type Department Care Team Description 04/04/2020 Office Visit Department of Family Matheus Feliciano perative Exam Medicine, Negin ParmarSRafal, (Primar y Dx) Clinic, in [place] [address] [phone] Social History Tobacco Use Types Packs/Day Years [...] do you attend methodist or Never 2021 holiness services? 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 Type of [...] More than three times a week Attends holiness service: Never Active member of club or [...] 04/04/2020 2:15 PM CDT Preop faxed to [facility] [place], . documented in this encounter Plan of Treatment Not on filedocumented as of this encounter Visit Diagnoses Diagnosis Preoperative Exam - Primary documented in this encounter Care Teams Blackjack Supervisor Relationship Specialty Start Date End Date Matheus Feliciano M.B.B.S., M.D. PCP - General Family Medicine 01/09/[address] [place] [address] [place] [address] documented as of this encounter
--- OUTSIDE RECORDS SUMMARY | 2022-04-29 07:38 | XMS_ITS | Encounter Summary ---
:1980 Author Organization [facility] Address [address] [place] [address] Care Team Providers Name Role Phone Matheus Feliciano M.D. Primary Care Provider [phone] Encounter Details Date Type Department Care Team Description 03/27/2020 Clinical Communication Department of Matheus [facility], Prabhu Parmar, Clinic, in [place] [address] [address] [phone] Social History Tobacco Use Types Packs/Day Years [...] do you attend samaritan or Never 2021 methodist services? 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 1. Do [...] no Route reply to: Scheduling Contact Number: [phone] documented in this encounter Plan of Treatment Not on filedocumented as of this encounter Visit Diagnoses Not on filedocumented in this encounter Care Teams Biochemistry Technician Relationship Specialty Start Date End Date Matheus Feliciano M.B.B.S., M.D. PCP - General Family Medicine 01/09/[address] [place] [address] documented as of this encounter
--- OUTSIDE RECORDS SUMMARY | 2022-04-29 07:38 | XMS_ITS | Encounter Summary ---
:1980 Author Organization [facility] Address [address] [place] [address] Care Team Providers Name Role Phone Matheus Feliciano M.D. Primary Care Provider [phone] Encounter Details Date Type Department Care Team Description 01/24/2020 Clinical Communication Department of Matheus Chester [facility], Prabhu Parmar, Clinic, in [place] [address] [address] [phone] Social History Tobacco Use Types Packs/Day Years [...] do you attend anglican or Never 2021 restorationist services? 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 PLAN The following information was provided: Notified patient to go to hospital per Dr. Feliciano and nurse line. No further questions or concernsat this time. Information/Education: not applicable The following references were used: provider BW Telephone Encounter - Kinza Sprague C.MMaki - 01/24/2020 3:08 PM CDT FYI read note Telephone Encounter - Faith Clayton - 01/24/2020 2:42 PM CDT Reason for Communication: Patient calling regarding finding a hernia in her stomach and had another episode. Patient has been trying to get a hold of the gastrologist since Thursday but doesn't know whatto do. Everyone keeps telling patient to go to the hospital but patient doesn't feel that is going to do anything. NL triage, gastrologist told her to go to the hospital. Patient states pain level is at an 8. Current Can Nursing/Provider leave a detailed message: Yes Did the patient refuse triage through Nurse line? (for symptom based concerns): no Action Needed: Please call patient and advise next course of action Name of Medication (if relevant): documented in this encounter Plan of Treatment Not on filedocumented as of this encounter Visit Diagnoses Not on filedocumented in this encounter Care Teams Head Nurse Relationship Specialty Start Date End Date Matheus Feliciano M.B.B.S., M.D. PCP - General Family Medicine 01/09/[address] [place] [address] documented as of this encounter
--- OUTSIDE RECORDS SUMMARY | 2022-04-29 07:38 | XMS_ITS | Encounter Summary ---
:1980 Author Organization [facility] Address [address] [place] [address] Care Team Providers Name Role Phone Matheus Feliciano M.D. Primary Care Provider [phone] Encounter Details Date Type Department Care Team Description 01/09/2020 Clinical Communication Department of Matheus Chester [facility], Prabhu Parmar, Clinic, in [place] [address] [address] [phone] Social History Tobacco Use Types Packs/Day Years [...] do you attend jain or Never 2021 shinto services? 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 PCP - General Family Medicine 01/09/[address] [place] [address] [place], [place] [address] documented as of this encounter
--- OUTSIDE RECORDS SUMMARY | 2022-04-29 07:38 | XMS_ITS | Encounter Summary ---
:1980 Author Organization [facility] Address [address] [place] [address] Care Team Providers Name Role Phone Matheus Feliciano M.D. Primary Care Provider [phone] Reason for Visit Reason Comments Triage Encounter Details Date Type Department Care Team Description 01/24/2020 Nurse Triage Department of [facility], Shoaib Jalloh R.N. Triage Medicine, [facility], in [address] [phone] Social History Tobacco Use Types Packs/Day [...] do you attend samaritan or Never 2021 muslim services? 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 PCP - General Family Medicine 01/09/[address] [place] [address] [place] [address] documented as of this encounter
--- OUTSIDE RECORDS SUMMARY | 2022-04-29 07:38 | XMS_ITS | Encounter Summary ---
:1980 Author Organization [facility] Address [address] [place] [address] Care Team Providers Name Role Phone Bonnie Franz M.D. Primary Care Provider [phone] Reason for Visit Reason Comments Med Refill Encounter Details Date Type Department Care Team Description 12/05/2019 Refill Department of Neurology in [place] Donis mendoza M.D. Med Refill [place], [place] [address] [facility] [address] [place] [address] [place] [address] [phone] Social History Tobacco Use Types Packs/Day Years [...] do you attend tenriism or Never 2021 denominational services? 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 PCP - General Family Medicine 08/25/18 01/08/[address] [address] documented as of this encounter
--- OUTSIDE RECORDS SUMMARY | 2022-04-29 07:38 | XMS_ITS | Encounter Summary ---
:1980 Author Organization [facility] Address [address] [place] [address] Care Team Providers Name Role Phone Matheus Feliciano M.D. Primary Care Provider [phone] Encounter Details Date Type Department Care Team Description 02/20/2020 Clinical Communication Department of Matheus Chester [facility], Prabhu Parmar, Clinic, in [place] [address] [address] [phone] Social History Tobacco Use Types Packs/Day Years [...] do you attend buddhism or Never 2021 roman catholic services? 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 PCP - General Family Medicine 01/09/[address] [place] [address] [place] [phone] documented as of this encounter
--- OUTSIDE RECORDS SUMMARY | 2022-04-29 07:38 | XMS_ITS | Encounter Summary ---
:1980 Author Organization [facility] Address [address] [place] [address] Care Team Providers Name Role Phone Matheus Feliciano M.D. Primary Care Provider [phone] Reason for Visit Reason Comments Med Refill Encounter Details Date Type Department Care Team Description 06/18/2020 Refill Department of Family Medicine, [place] Wiseman Med Refill [facility], in [place] M.D. [place] [address] [address] [place] [address] [phone] Social History Tobacco Use Types Packs/Day Years [...] do you attend jew or Never 2021 moravian services? 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 PCP - General Family Medicine 01/09/[address] [place] [address] [place] [address] documented as of this encounter
--- OUTSIDE RECORDS SUMMARY | 2022-04-29 07:38 | XMS_ITS | Encounter Summary ---
:1980 Author Organization [facility] Address [address] [place] [address] Care Team Providers Name Role Phone Matheus Feliciano M.D. Primary Care Provider [phone] Reason for Visit Reason Comments Medical Information Encounter Details Date Type Department Care Team Description 01/11/2020 Clinical Communication Department of Raz Feliciano [facility] in [address] [address] [place], [place] [phone] [address] (Work) [phone] Social History Tobacco Use Types Packs/Day Years [...] do you attend temple or Never 2021 rastafari services? 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 PCP - General Family Medicine 01/09/[address] [place] [address] F[place]ANK[place] [phone] documented as of this encounter
--- OUTSIDE RECORDS SUMMARY | 2022-04-29 07:38 | XMS_ITS | Encounter Summary ---
:1980 Author Organization [facility] Address [address] [place] [address] Care Team Providers Name Role Phone Matheus Feliciano M.D. Primary Care Provider [phone] Reason for Visit Reason Comments Med Refill Encounter Details Date Type Department Care Team Description 05/28/2020 Refill Department of Family Medicine, Matheus Feliciano I., Med Refill [facility], in Ralph Pelletier [place], [place] 300 [facility] 300 [place] [address] [place] [address] [phone] Social History Tobacco Use Types Packs/Day Years [...] do you attend buddhist or Never 2021 mormon services? 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 PCP - General Family Medicine 01/09/[address] [place] [address] [place] [address] documented as of this encounter
--- OUTSIDE RECORDS SUMMARY | 2022-04-29 07:38 | XMS_ITS | Encounter Summary ---
:1980 Author Organization [facility] Address [address] [place] [address] Care Team Providers Name Role Phone Matheus Feliciano M.D. Primary Care Provider [phone] Encounter Details Date Type Department Care Team Description 03/05/2020 Orders Only Department of Family Matheus Feliciano Hypo thyroidism (Primary Medicine, Prabhu Parmar, Dx) Clinic, in [place] 300 [facility] 300 [place] [address] [phone] Social History Tobacco Use Types Packs/Day Years [...] do you attend rastafarian or Never 2021 sikh services? Do you [...] at Date Recorded Female 09/01/2021 7:35 PM CUFFER documented as of this encounter Plan of [...] Organization Address City/State/ZIP Code Phon e Number [facility]- [address] [place] [address] [place] [address] System in [place] [address] documented in this encounter Visit Diagnoses Diagnosis Hypothyroidism - Primary documented in this encounter Care Teams Skin Care Specialist Relationship Specialty Start Date End Date Matheus Feliciano M.B.B.S., M.D. PCP - General Family Medicine 01/09/[address] [place] [address] [place] [address] documented as of this encounter
--- OUTSIDE RECORDS SUMMARY | 2022-04-29 07:38 | XMS_ITS | Encounter Summary ---
:1980 Author Organization [facility] Address [address] [place] [address] Care Team Providers Name Role Phone Matheus Feliciano M.D. Primary Care Provider [phone] Reason for Visit Reason Comments Med Refill Encounter Details Date Type Department Care Team Description 05/27/2020 Refill Department of Family Medicine, Matheus Feliciano I., Med Refill [facility], in Ralph Pelletier [place], [place] 300 [facility] [address] [place] [address] [place] [address] [phone] Social History Tobacco Use Types Packs/Day Years [...] do you attend faith or Never 2021 orthodoxy services? 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 - 05/28/2020 5:06 PM CDT Please have Neurology fill is in the future. Telephone Encounter - Faith Clayton - 05/28/2020 1:35 PM CDT Reason for Communication: Patient is completely out of this medication and has to brass pickler an emergency supply. Without this she does have seizures. Please have this medication sent through to the pharmacy today. Current Can Nursing/Provider leave a detailed message?: Yes Did the patient refuse triage through Nurse line? (for symptom based concerns): Action Needed: Please call patient once prescription is approved to pharmacy Name of Medication (if relevant): Levetiracetam documented in this encounter Plan of Treatment Not on filedocumented as of this encounter Visit Diagnoses Not on filedocumented in this encounter Care Teams Gripper Installer Relationship Specialty Start Date End Date Matheus Feliciano M.B.B.S., M.D. PCP - General Family Medicine 01/09/[address] [place] [address] Faye MillingtonPANKAJ woody [address] documented as of this encounter
--- OUTSIDE RECORDS SUMMARY | 2022-04-29 07:38 | XMS_ITS | Encounter Summary ---
:1980 Author Organization [facility] Address [address] [place] [address] Care Team Providers Name Role Phone Matheus Feliciano M.D. Primary Care Provider [phone] Reason for Visit Reason Comments Med Refill Encounter Details Date Type Department Care Team Description 03/26/2020 Refill Department of Family Medicine, Orlando Wiseman Med Refill [facility], in Bonine [place] M.D. [place] [phone] [address] [place] [address] [phone] Social History Tobacco Use Types Packs/Day Years [...] you attend latter day or Never 2021 congregational services? 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 PCP - General Family Medicine 01/09/[address] [place] [address] [place] [address] documented as of this encounter
--- OUTSIDE RECORDS SUMMARY | 2022-04-29 07:38 | XMS_ITS | Encounter Summary ---
:1980 Author Organization [facility] Address [address] [place] [address] Care Team Providers Name Role Phone Matheus Feliciano M.D. Primary Care Provider [phone] Encounter Details Date Type Department Care Team Description 03/13/2020 Clinical Communication Department of Matheus Chester [facility], Prabhu Parmar, Clinic, in [place] [address] [address] [phone] Social History Tobacco Use Types Packs/Day Years [...] do you attend denominational or Never 2021 hoahaoism services? 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 - 03/13/2020 4:07 PM CDT SUBJECTIVE CHIEF COMPLAINT / REASON FOR CALL No chief complaint on file. Information Discussed Patient notified prescription refills were approved and sent to [facility] to be dispensed to patient PLAN Disposition/Recommendation: recommended continue engagement in self-management activities Information/Education: patient/caller able to teach back Caller agreeable to plan of care: yes The following references were used: provider dr boucher Telephone Encounter - Melia Cason - 03/13/2020 3:53 PM CDT Reason for Communication: Patient calling to see if the Vitamin B12 RX could be sent to [facility] before she leaves [facility] and goes back to [place]. Please call [facility]. Current Can Nursing/Provider leave a detailed message: Did the patient refuse triage through Nurse line? (for symptom based concerns): Action Needed: phone call Name of Medication (if relevant): documented in this encounter Plan of Treatment Not on filedocumented as of this encounter Visit Diagnoses Not on filedocumented in this encounter Care Teams Roving Winder Relationship Specialty Start Date End Date Matheus Feliciano M.B.B.S., M.D. PCP - General Family Medicine 01/09/[address] [place] [address] [place] [phone] documented as of this encounter
--- OUTSIDE RECORDS SUMMARY | 2022-04-29 07:38 | XMS_ITS | Encounter Summary ---
:1980 Author Organization [facility] Address [address] [place] [address] Care Team Providers Name Role Phone Matheus Feliciano M.D. Primary Care Provider [phone] Encounter Details Date Type Department Care Team Description 03/13/[address] [facility] (Primary Medicine, Rishi Farah M.D. 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 documented as of this encounter Plan of Treatment Not on filedocumented as of this encounter Results (ABNORMAL) Basic Metabolic Panel (07/17/2020 12:35 PM FREIGHT RATE SPECIALIST) P athologist Signature Potassium, P 4.5 3.6 - 5.2 07/17/2020 [place] mmol/L 5:02 PM FREIGHT RATE SPECIALIST Sodium, P 139 135 - 145 07/17/2020 [place] mmol/L 5:02 PM FREIGHT RATE SPECIALIST Chloride, P 106 98 - 107 07/17/2020 [place] mmol/L 5:02 PM FREIGHT RATE SPECIALIST Bicarbonate, P 26 22 - 29 07/17/2020 [place] mmol/L 5:02 PM FREIGHT RATE SPECIALIST Anion Gap, P 7 7 - 15 07/17/2020 [place] 5:02 PM FREIGHT RATE SPECIALIST BUN (Blood Urea 5 (L) 6 - 21 07/17/2020 [place] Nitrogen), P mg/dL 5:02 PM FREIGHT RATE SPECIALIST Creatinine 0.81 0.59 - 07/17/2020 [place] 1.04 mg/dL 5:02 PM FREIGHT RATE SPECIALIST eGFR-Black/Afric >90 >=60 07/17/2020 [place] an Malaysian mL/min/BSA 5:02 PM FREIGHT RATE SPECIALIST Comment: ----ADDITIONAL INFORMATION---- Estimated GFR calculated using the 2009 CKD_EPI creatinine equation. eGFR Non-Black/ >90 >=60 mL/min/BSA 07/17/2020 5:02 PM FREIGHT RATE SPECIALIST [place] Comment: ----ADDITIONAL INFORMATION---- Estimated GFR calculated using the 2009 CKD_EPI creatinine equation. Calcium, Total, P 9.0 8.6 - 10.0 mg/dL 07/17/2020 5:02 PM FREIGHT RATE SPECIALIST [place] Glucose, P 72 70 - 140 mg/dL 07/17/2020 5:02 PM FREIGHT RATE SPECIALIST O INDIGO Specimen Anatomical Collection Method Collection Time Receive d Time (Source) Location / / Volume Laterality Blood (Blood, 07/17/2020 12:35 07/17/2020 4:47 Venous) PM FREIGHT RATE SPECIALIST PM FREIGHT RATE SPECIALIST Gagan Tilley M.D. LAB BLOOD ADD-ON Performing Organization Address City/State/ZIP Code Phon e Number [facility] [address] [place] [address] [facility] [place] [address] System in [place] [address] documented in this encounter Visit Diagnoses Diagnosis Hypokalemia - Primary documented in this encounter Care Teams Research Group Director Relationship Specialty Start Date End Date Matheus Feliciano M.B.B.S., M.D. PCP - General Family Medicine 01/09/[address] [place] [address] PANKAJ Velez [phone] documented as of this encounter
--- OUTSIDE RECORDS SUMMARY | 2022-04-29 07:38 | XMS_ITS | Encounter Summary ---
:1980 Author Organization [facility] Address [address] [place] [address] Care Team Providers Name Role Phone Matheus Feliciano M.D. Primary Care Provider [phone] Encounter Details Date Type Department Care Team Description 01/09/2020 Clinical Communication Department of Matheus Chester [facility], Prabhu Parmar, Clinic, in [place] [address] [address] [phone] Social History Tobacco Use Types Packs/Day Years [...] do you attend druze or Never 2021 evangelical services? 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 PCP - General Family Medicine 01/09/[address] [place] [phone] documented as of this encounter
--- OUTSIDE RECORDS SUMMARY | 2022-04-29 07:38 | XMS_ITS | Encounter Summary ---
:1980 Author Organization [facility] Address [address] [place] [address] Care Team Providers Name Role Phone Matheus Feliciano M.D. Primary Care Provider [phone] Encounter Details Date Type Department Care Team Description 02/28/2020 Clinical Communication Department of Matheus Chester [facility], Prabhu Parmar, Clinic, in [place] [address] [address] [phone] Social History Tobacco Use Types Packs/Day Years [...] do you attend anglican or Never 2021 synagogue services? 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 In the past 30 days have you had a swab for COVID that tested positive? no Route reply to: Scheduling Contact Number: documented in this encounter Plan of Treatment Not on filedocumented as of this encounter Visit Diagnoses Not on filedocumented in this encounter Care Teams Extractor And Wringer Operator Relationship Specialty Start Date End Date Matheus Feliciano M.B.BRafalSRafal, MDonald. PCP - General Family Medicine 01/09/[address] [place] [address] PANKAJ [place] [phone] documented as of this encounter
--- OUTSIDE RECORDS SUMMARY | 2022-04-29 07:39 | XMS_ITS | Encounter Summary ---
:1980 Author Organization [facility] Address [address] [place] [address] Care Team Providers Name Role Phone Bonnie Franz M.D. Primary Care Provider [phone] Reason for Visit Reason Comments Med Refill Encounter Details Date Type Department Care Team Description 06/28/2019 Refill Department of Family Medicine, Qasim Ceja P.A.-C. Med Refill [facility], in [address] [place] [address] [place] [address] [place] [address] [phone] Social History Tobacco Use Types Packs/Day Years [...] do you attend restorationist or Never 2021 methodist services? Do you [...] at Date Recorded Female 09/01/2021 7:35 PM CRAS documented as of this encounter Plan of Treatment Not on filedocumented as of this encounter Visit Diagnoses Not on filedocumented in this encounter Care Teams Audio Technician Relationship Specialty Start Date End Date Bonnei Franz M.D. PCP - General Family Medicine 08/25/18 01/08/[address] [address] documented as of this encounter
--- OUTSIDE RECORDS SUMMARY | 2022-04-29 07:39 | XMS_ITS | Encounter Summary ---
:1980 Author Organization [facility] Address [address] [place] [address] Care Team Providers Name Role Phone Bonnie Franz M.D. Primary Care Provider [phone] Encounter Details Date Type Department Care Team Description 09/22/2019 Clinical Communication Department of [facility] Orlando Ndiaye [facility], Bonnie Lauren, [facility], in [place] [address] [place] [phone] Social History Tobacco Use Types Packs/Day Years [...] do you attend jainism or Never 2021 restorationist services? 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/2021 7:35 PM DIE FITTER documented as of this encounter Miscellaneous Notes Telephone Encounter - Karly Galdamez - 09/22/2019 12:07 PM CST Reason for Communication: Patient's is calling in and stated that patient was was seen at [facility] last night, and they stated patient may have a bleeding ulcer and they wanted herto see her pcp no later then Thursday09/26/19. Please call patient's back with appt. Time. Current Can Nursing/Provider leave a detailed message: yes Did the patient refuse triage through Nurse line? (for symptom based concerns): Action Needed: Please call patient's with appt time. Name of Medication (if relevant): FITTER documented in this encounter Plan of Treatment Not on filedocumented as of this encounter Visit Diagnoses Not on filedocumented in this encounter Care Teams Manufacturing Manager Relationship Specialty Start Date End Date Bonnie Franz M.D. PCP - General Family Medicine 08/25/18 01/08/[address] [address] documented as of this encounter
--- OUTSIDE RECORDS SUMMARY | 2022-04-29 07:39 | XMS_ITS | Encounter Summary ---
:1980 Author Organization [facility] Address [address] [place] [address] Care Team Providers Name Role Phone Bonnie Franz M.D. Primary Care Provider [phone] Reason for Visit Reason Comments Med Refill Encounter Details Date Type Department Care Team Description 06/27/2019 Refill Department of Family Medicine, Qasim Ceja P.A.-C. Med Refill [facility], in [address] [place] [address] [place] [address] [place] [address] [phone] Social History Tobacco Use Types Packs/Day Years [...] do you attend jew or Never 2021 buddhism services? 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 PCP - General Family Medicine 08/25/18 01/08/[address] [address] documented as of this encounter
--- OUTSIDE RECORDS SUMMARY | 2022-04-29 07:39 | XMS_ITS | Encounter Summary ---
:1980 Author Organization [facility] Address [address] [place] [address] Care Team Providers Name Role Phone Bonnie Franz M.D. Primary Care Provider [phone] Encounter Details Date Type Department Care Team Description 10/24/2019 E-Visit [facility] Kenrick Paz R E: E-Visit Submission: Care at the [facility] Christina STEWART, M .S.N. Sinus symptoms [facility] [address] [address] [place] [address] [address] [place], [place] [address] [place] [address] [place], [place] [phone] (Wo rk) [address] [phone] Social History Tobacco Use Types Packs/Day Years [...] do you attend temple or Never 2021 mandaen services? 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 PCP - General Family Medicine 08/25/18 01/08/[address] [address] documented as of this encounter
--- OUTSIDE RECORDS SUMMARY | 2022-04-29 07:39 | XMS_ITS | Encounter Summary ---
:1980 Author Organization [facility] Address [address] [place] [address] Care Team Providers Name Role Phone Bonnie Franz M.D. Primary Care Provider [phone] Reason for Visit Reason Comments Cough Appointment Request (Routine) - Closed Specialty Diagnoses / Procedures Referred By Contact Refer red To Contact Family Medicine Referral ID Status Reason Start Date Expiration Date Visits Requ ested Visits Authorized [id number] Closed 10/24/2019 10/23/2020 1 1 Encounter Details Date Type Department Care Team Description 10/24/2019 Office Visit Department of [facility] Ashwini Felipe [facility] (Primary Dx); Medicine, [place] Bonnie shoemaker M.D. Sinusitis Acute Clinic, in [address] [address] [place], [place] [phone] [address] (Work) [phone] Social History Tobacco Use Types Packs/Day Years [...] do you attend catholic or Never 2021 yarsanism services? Do you [...] at Date Recorded Female 09/01/2021 7:35 PM HOISTER documented as of this encounter Last Filed [...] by Cesilia Lucia, a trained medical records analyst. The creation of this record is based [...] Type documented in this encounter Care Teams Health Analyst Relationship Specialty Start Date End Date Bonnie Franz M.D. PCP - General Family Medicine 08/25/18 01/08/[address] [address] documented as of this encounter
--- OUTSIDE RECORDS SUMMARY | 2022-04-29 07:39 | XMS_ITS | Encounter Summary ---
:1980 Author Organization [facility] Address [address] [place] [address] Care Team Providers Name Role Phone Bonnie Franz M.D. Primary Care Provider [phone] Reason for Visit Reason Comments Medical Information Encounter Details Date Type Department Care Team Description 11/07/2019 Clinical Communication Department of [facility] martha oYu P.A.-C. [place] [address] [place] [phone] Social History Tobacco Use Types Packs/Day Years [...] do you attend anglican or Never 2021 gnosticist services? 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 Lives in [place]. Was seen in [facility] care at [facility] in [place] on 07/23/19 with xrays done. A- wants appointment for left wrist pain R- Patient notified we are currently not scheduling non emergent patients but I would forward message on to provider to review and advise on a plan of care for the future. Patient is willing to be seenin [place] or [place] where ever she can be seen sooner. [...] on filedocumented in this encounter Care Teams Taffy Candy Maker Relationship Specialty Start Date End Date Bonnie Franz M.D. PCP - General Family Medicine 08/25/18 01/08/20 [address] [place] [address] documented as of this encounter
--- OUTSIDE RECORDS SUMMARY | 2022-04-29 07:39 | XMS_ITS | Encounter Summary ---
:[address] [facility] Address [address] [place] [address] Care Team Providers Name Role Phone Bonnie Frazn M.D. Primary Care Provider [phone] Reason for Visit Reason Comments Med Refill Encounter Details Date Type Department Care Team Description 05/29/2019 Refill Department of Family Medicine, Simon Dykes Refill [facility], in Bonnie [place] M.D. [place] [phone] [address] [place] [address] [phone] Social History Tobacco Use Types Packs/Day Years [...] do you attend mu-ism or Never 2021 hoahaoism services? 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 PCP - General Family Medicine 08/25/18 01/08/[address] [address] documented as of this encounter
--- OUTSIDE RECORDS SUMMARY | 2022-04-29 07:39 | XMS_ITS | Encounter Summary ---
:1980 Author Organization [facility] Address [address] [place] [address] Care Team Providers Name Role Phone Bonnie Franz M.D. Primary Care Provider [phone] Encounter Details Date Type Department Care Team Description 02/21/2019 Orders Only Pharmacy Prior Auth Norman Pelaez [phone] Social History Tobacco Use Types Packs/Day Years [...] do you attend religious or Never 2021 orthodoxy services? 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 PCP - General Family Medicine 08/25/18 01/08/[address] [address] documented as of this encounter
--- OUTSIDE RECORDS SUMMARY | 2022-04-29 07:39 | XMS_ITS | Encounter Summary ---
:1980 Author Organization [facility] Address [address] [place] [address] Care Team Providers Name Role Phone Bonnie Franz M.D. Primary Care Provider [phone] Reason for Visit Reason Comments Med Refill Encounter Details Date Type Department Care Team Description 11/10/2019 Refill Department of Chacorta Carlin M.D. Med Refill Medicine, [facility], [address] [place] [address], [facility] 204 [place] [address] [place] [address] [place] [address] Social History Tobacco Use [...] do you attend protestant or Never 2021 church services? 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 PCP - General Family Medicine 08/25/18 01/08/[address] [address] documented as of this encounter
--- OUTSIDE RECORDS SUMMARY | 2022-04-29 07:39 | XMS_ITS | Encounter Summary ---
:[address] [facility] Address [address] [place] [address] Care Team Providers Name Role Phone Bonnie Franz M.D. Primary Care Provider + [phone] Reason for Visit Reason Comments Abdominal Pain Left side mid abdomen X 1 da y Appointment Request (Routine) - Closed Specialty Diagnoses / Procedures Referred By Contact Refer red To Contact Family Medicine Referral ID Status Reason Start Date Expiration Date Visits Requ ested Visits Authorized [id number] Closed 09/14/2019 09/13/2020 1 1 Encounter Details Date Type Department Care Team Description 09/19/2019 Office Visit Department of Family Qasim Meza Di arrhea (Primary Dx) Medicine in [facility] 225 [facility] 225 [place] [address] [phone] Social History Tobacco Use Types Packs/Day Years [...] do you attend lutheran or Never 2021 pentecostal services? 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 ERCIAL GREEN BUILDING DESIGNER documented in this encounter Plan of Treatment Not on filedocumented as of this encounter Procedures Procedure Name Priority Date/Time Associated Diagnosis Comme nts GI PATHOGEN PANEL, Routine 09/19/2019 3:08 PM Diarrhea Res ults for this PCR, F COMMERCIAL GREEN BUILDING DESIGNER procedure are i n the results section. documented in this encounter Results GI Pathogen Panel, PCR, Feces (09/19/2019 3:08 PM COMMERCIAL GREEN BUILDING DESIGNER) [facility] gist Method Time Signature Specimen Source STOOL 09/20/2019 AUST 11:00 AM COMMERCIAL GREEN BUILDING DESIGNER Campylobacter Negative Negative 09/20/2019 AUST species 11:00 AM COMMERCIAL GREEN BUILDING DESIGNER C. difficile toxin Negative Negative 09/20/2019 AUST 11:00 AM COMMERCIAL GREEN BUILDING DESIGNER Plesiomonas Negative Negative 09/20/2019 AUST shigelloides 11:00 AM COMMERCIAL GREEN BUILDING DESIGNER Salmonella species Negative Negative 09/20/2019 AUST 11:00 AM COMMERCIAL GREEN BUILDING DESIGNER Vibrio species Negative Negative 09/20/2019 AUST 11:00 AM COMMERCIAL GREEN BUILDING DESIGNER Vibrio cholerae Negative Negative 09/20/2019 AUST 11:00 AM COMMERCIAL GREEN BUILDING DESIGNER Yersinia species Negative Negative 09/20/2019 AUST 11:00 AM COMMERCIAL GREEN BUILDING DESIGNER Enteroaggregative E. Negative Negative 09/20/2019 AUST coli (EAEC) 11:00 AM COMMERCIAL GREEN BUILDING DESIGNER Enteropathogenic E. Negative Negative 09/20/2019 AUST coli (EPEC) 11:00 AM COMMERCIAL GREEN BUILDING DESIGNER Enterotoxigenic E. Negative Negative 09/20/2019 AUST coli (ETEC) 11:00 AM COMMERCIAL GREEN BUILDING DESIGNER Shiga toxin Negative Negative 09/20/2019 AUST producing E. coli 11:00 AM COMMERCIAL GREEN BUILDING DESIGNER Shigella/Enteroinvas Negative Negative 09/20/2019 AUST jennie E. coli 11:00 AM COMMERCIAL GREEN BUILDING DESIGNER Cryptosporidium Negative Negative 09/20/2019 AUST species 11:00 AM COMMERCIAL GREEN BUILDING DESIGNER Cyclospora Negative Negative 09/20/2019 AUST cayetanensis 11:00 AM COMMERCIAL GREEN BUILDING DESIGNER Entamoeba Negative Negative 09/20/2019 AUST histolytica 11:00 AM COMMERCIAL GREEN BUILDING DESIGNER Giardia Negative Negative 09/20/2019 AUST 11:00 AM COMMERCIAL GREEN BUILDING DESIGNER Adenovirus F40/41 Negative Negative 09/20/2019 AUST 11:00 AM COMMERCIAL GREEN BUILDING DESIGNER Astrovirus Negative Negative 09/20/2019 AUST 11:00 AM COMMERCIAL GREEN BUILDING DESIGNER Norovirus GI/GII Negative Negative 09/20/2019 AUST 11:00 AM COMMERCIAL GREEN BUILDING DESIGNER Rotavirus Ag, F Negative Negative 09/20/2019 AUST 11:00 AM COMMERCIAL GREEN BUILDING DESIGNER Sapovirus Negative Negative 09/20/2019 AUST 11:00 AM COMMERCIAL GREEN BUILDING DESIGNER Comment: ----ADDITIONAL INFORMATION---- This assay is performed using the FDA-cl eared GIVTEDArray GI Panel ([employer] Specimen Anatomical Collection Method Collection Time Receive d Time (Source) Location / / Volume Laterality Stool (Stool) 09/19/2019 3:08 PM 09/19/19 9:05 COMMERCIAL GREEN BUILDING DESIGNER PM COMMERCIAL GREEN BUILDING DESIGNER Qasim Meza P.A.-C. LAB MICROBIOLOGY - GENERAL O RDERABLES Performing Organization Address City/State/ZIP Code Phon e Number [facility]- [address] [place] [address] [facility] [place], [place] [id number] [place] [address] documented in this encounter Visit Diagnoses Diagnosis Diarrhea - Primary documented in this encounter Care Teams Radiation Oncology Manager Relationship Specialty Start Date End Date Bonnie Franz M.D. PCP - General Family Medicine 08/25/18 01/08/[address] [place] [address] documented as of this encounter
--- OUTSIDE RECORDS SUMMARY | 2022-04-29 07:39 | XMS_ITS | Encounter Summary ---
:1980 Author Organization [facility] Address [address] [place] [address] Care Team Providers Name Role Phone Bonnie Franz M.D. Primary Care Provider + [phone] Reason for Visit Reason Comments JACKLYN Encounter Details Date Type Department Care Team Description 10/26/2019 Clinical Communication Department of [facility] in Donis Mccullough M.D. [place], [place] [address] [place] [address] [address] [place] [phone] [phone] Social History Tobacco Use Types Packs/Day Years [...] do you attend yazidi or Never 2021 presybeterian services? 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 PCP - General Family Medicine 08/25/18 01/08/[address] [address] documented as of this encounter
--- OUTSIDE RECORDS SUMMARY | 2022-04-29 07:39 | XMS_ITS | Encounter Summary ---
:1980 Author Organization [facility] Address [address] [place] [address] Care Team Providers Name Role Phone Bonnie Franz M.D. Primary Care Provider [phone] Encounter Details Date Type Department Care Team Description 10/24/2019 Clinical Communication Department of [facility] [place] [facility], Bonnie Lauren, [facility], in [place] Blackwell [place] [address] [place] [phone] Social History Tobacco Use Types Packs/Day Years [...] do you attend yarsanism or Never 2021 samaritan services? 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 PCP - General Family Medicine 08/25/18 01/08/[address] [address] documented as of this encounter
--- OUTSIDE RECORDS SUMMARY | 2022-04-29 07:39 | XMS_ITS | Encounter Summary ---
:1980 Author Organization [facility] Address [address] [place] [address] Care Team Providers Name Role Phone Bonnie Franz M.D. Primary Care Provider + [phone] Reason for Visit Reason Comments Follow-up In [...] Expiration Date Visits Requ ested Visits Authorized [id number] Closed 09/22/2019 09/21/2020 1 1 Encounter Details Date Type Department Care Team Description 09/23/2019 Office Visit Department of [facility] Yuli wilder Epigastric Medicine, Bonnie Lauren, (Primary Dx) Clinic, in [place] [address] [place] [phone] Social History Tobacco Use Types Packs/Day Years [...] you attend latter day or Never 2021 faith services? Do you [...] at Date Recorded Female 09/01/2021 7:35 PM LINK TRAINER MAINTENANCE MAN documented as of this encounter Last Filed Vital Signs Vital Sign Reading Time Taken Comments Blood Pressure 109/74 09/23/2019 12:04 PM LINK TRAINER MAINTENANCE MAN Pulse 85 09/23/2019 12:04 PM LINK TRAINER MAINTENANCE MAN Temperature 36.3 ??C (97.3 ??F) 09/23/2019 12:04 PM LINK TRAINER MAINTENANCE MAN Respiratory Rate 16 09/23/2019 12:04 PM LINK TRAINER MAINTENANCE MAN Oxygen Saturation - - Inhaled Oxygen Concentration - - Weight 88.3 kg (194 lb 10.7 oz) 09/23/2019 12:04 PM LINK TRAINER MAINTENANCE MAN Height - - Body Mass Index 32.51 [...] black and tarry. She was seen at [facility] emergency room on 09/21/2019. For the previous [...] their behalf by Cesilia Lucia, a trained coroner/medical examiner. The creation of this record is based on the scribe's personal observations and the provider's statements to them. This documenthas been checked and approved by the attending provider. TRAINER MAINTENANCE MAN documented in this encounter Plan of Treatment Not on filedocumented as of this encounter Procedures Procedure Name Priority Date/Time Associated Diagnosis Comme nts HEMOGLOBIN, B Routine 09/23/2019 12:36 PM Pain Epigastric Resu lts for this LINK TRAINER MAINTENANCE MAN procedure are i n the results section . documented in this encounter Results Hemoglobin (09/23/2019 12:36 PM LINK TRAINER MAINTENANCE MAN) P athologist Signature Hemoglobin 13.7 11.6 - 15.0 09/23/2019 FB60 g/dL 12:42 PM LINK TRAINER MAINTENANCE MAN Specimen Anatomical Collection Method Collection Time Receive d Time (Source) Location / / Volume Laterality Blood (Blood, 09/23/2019 12:36 09/23/2019 Venous) PM LINK TRAINER MAINTENANCE MAN 12:37 PM LINK TRAINER MAINTENANCE MAN Bonnie Franz M.D. LAB BLOOD ADD-ON Performing Organization Address City/State/ZIP Code Phon e Number [facility]- [facility] [place] [place] [address] [facility] [place] [address] System in [place] [address] documented in this encounter Visit Diagnoses Diagnosis Pain Epigastric - Primary documented in this encounter Care Teams Merchandise Shopper Relationship Specialty Start Date End Date Bonnie Franz M.D. PCP - General Family Medicine 08/25/18 01/08/[address] [place] [address] documented as of this encounter
--- OUTSIDE RECORDS SUMMARY | 2022-04-29 07:39 | XMS_ITS | Encounter Summary ---
:1980 Author Organization [facility] Address [address] [place] [address] Care Team Providers Name Role Phone Bonnie Franz M.D. Primary Care Provider [phone] Reason for Visit Reason Comments Med Refill Encounter Details Date Type Department Care Team Description 07/19/2019 Refill Department of Family Medicine, Simon Dykes Refill [facility], in Bonnie Blackwell M.D. [place] [address] [address] [place] [address] [phone] Social History Tobacco Use Types Packs/Day Years [...] do you attend confucianism or Never 2021 scientologist services? 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 PCP - General Family Medicine 08/25/18 01/08/[address] [address] documented as of this encounter
--- OUTSIDE RECORDS SUMMARY | 2022-04-29 07:39 | XMS_ITS | Encounter Summary ---
:1980 Author Organization [facility] Address [address] [place] [address] Care Team Providers Name Role Phone Bonnie Franz M.D. Primary Care Provider [phone] Reason for Visit Reason Comments Med Refill Encounter Details Date Type Department Care Team Description 05/02/2019 Refill Department of Family Medicine, Simon Dykes Refill [facility], in Bonnie Blackwell M.D. [place] [address] [address] [place] [address] [phone] Social History Tobacco Use Types Packs/Day Years [...] do you attend congregation or Never 2021 episcopal services? 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 PCP - General Family Medicine 08/25/18 01/08/[address] [address] documented as of this encounter
--- OUTSIDE RECORDS SUMMARY | 2022-04-29 07:39 | XMS_ITS | Encounter Summary ---
:1980 Author Organization [facility] Address [address] [place] [address] Care Team Providers Name Role Phone Bonnie Franz M.D. Primary Care Provider [phone] Reason for Visit Reason Comments Med Refill Encounter Details Date Type Department Care Team Description 05/15/2019 Refill Department of Family Medicine, Qasim Ceja P.A.-C. Med Refill [facility], in [address] [place] [address] [place] [address] [place] [address] [phone] Social History Tobacco Use Types Packs/Day Years [...] do you attend zoroastrian or Never 2021 adventist services? Do you [...] at Date Recorded Female 09/01/2021 7:35 PM FUNERAL ARRANGEMENT DIRECTOR documented as of this encounter Plan of Treatment Not on filedocumented as of this encounter Visit Diagnoses Not on filedocumented in this encounter Care Teams Digital Media Buyer Relationship Specialty Start Date End Date Bonnie Franz M.D. PCP - General Family Medicine 08/25/18 01/08/[address] [address] documented as of this encounter
--- OUTSIDE RECORDS SUMMARY | 2022-04-29 07:39 | XMS_ITS | Encounter Summary ---
:1980 Author Organization [facility] Address [address] [place] [address] Care Team Providers Name Role Phone Bonnie Franz M.D. Primary Care Provider [phone] Reason for Referral Outpatient (Routine) - Closed Specialty Diagnoses / Procedures Referred By Contact Refer red To Contact Neurology Diagnoses Epilepsy Seizure Not Intractable Without Status Epilepticus (HCC) Donis Stuart M.D. [facility] [address] [place] [phone] Referral ID Status Reason Start Date Expiration Date Visits Requ ested Visits Authorized [id number] Closed 10/27/2019 10/26/2020 1 1 Reason for Visit Reason Comments Seizures Encounter Details Date Type Department Care Team Description 10/27/2019 Documentation Department of Neurology in Jori Stuart Seizures [place], [place] [address] [place] [address] [place] [address] [place], [place] [phone] (Wo rk) Social History Tobacco Use Types [...] do you attend faith or Never 2021 judaism services? Do you [...] at Date Recorded Female 09/01/2021 7:35 PM VARITYPIST documented as of this encounter Progress Notes [...] daily, which she remains on. EEG in [place] was normal. MRI in April 2016 did [...] sometime in the next 8-12 months to [facility]. documented in this encounter Plan of Treatment Scheduled Referrals Name Type Priority Associated Diagnoses Order S [facility] Neurology office Outpatient Referral Routine Epilepsy Seizure Not Expected: visit (clinic) Intractable Without 2019 Status Epilepticus (Approxim ate), (HCC) Expires: 10/26/2022 documented as of this encounter Visit Diagnoses Diagnosis Epilepsy Seizure Not Intractable Without Status Epilepticus (HCC) - Primary documented in this encounter Care Teams Carrot Buncher Relationship Specialty Start Date End Date Bonnie Franz M.D. PCP - General Family Medicine 08/25/18 01/08/20 [address] [address] documented as of this encounter
--- OUTSIDE RECORDS SUMMARY | 2022-04-29 07:39 | XMS_ITS | Encounter Summary ---
:1980 Author Organization [facility] Address [address] [place] [address] Care Team Providers Name Role Phone Bonnie Franz M.D. Primary Care Provider + [phone] Encounter Details Date Type Department Care Team Description 09/21/2019 Nurse Triage Department of Family Dara Galdamez R.N. Medicine, [facility], [address] [facility] in [place], [place] [address] [place] [address] [place] [address] [phone] Social History Tobacco Use Types Packs/Day Years [...] do you attend congregational or Never 2021 cheondoism services? Do you [...] at Date Recorded Female 09/01/2021 7:35 PM LATHE TENDER documented as of this encounter Plan of Treatment Not on filedocumented as of this encounter Visit Diagnoses Not on filedocumented in this encounter Care Teams Greeting Card Editor Relationship Specialty Start Date End Date Bonnie Franz M.D. PCP - General Family Medicine 08/25/18 01/08/[address] [phone] documented as of this encounter
--- OUTSIDE RECORDS SUMMARY | 2022-04-29 07:39 | XMS_ITS | Encounter Summary ---
:1980 Author Organization [facility] Address [address] [place] [address] Care Team Providers Name Role Phone Bonnie Franz M.D. Primary Care Provider [phone] Reason for Visit Reason Comments Med Refill Encounter Details Date Type Department Care Team Description 03/02/2019 Refill Department of Family Medicine, Simon Dykes Refill [facility], in Bonnie Blackwell M.D. [place] [address] [address] [place] [address] [phone] Social History Tobacco Use Types Packs/Day Years [...] at Date Recorded Female 09/01/2021 7:35 PM KILN PULLER documented as of this encounter Miscellaneous [...] on filedocumented in this encounter Care Teams Electric Truck Crane Operator Relationship Specialty Start Date End Date Bonnie Franz M.D. PCP - General Family Medicine 08/25/18 01/08/[address] [phone] documented as of this encounter
--- OUTSIDE RECORDS SUMMARY | 2022-04-29 07:39 | XMS_ITS | Encounter Summary ---
:1980 Author Organization [facility] Address [address] [place] [address] Care Team Providers Name Role Phone Bonnie Franz M.D. Primary Care Provider [phone] Reason for Visit Reason Comments Earache right ear pain Encounter Details Date Type Department Care Team Description 05/02/2019 Comprehensive Visit Department of Dina, Dysfunc tion Eustachian Tube Bilateral (Primary Dx); Otorhinolaryngology in [place], Otiti s Media Serous Right [place], [place] P.A.-C. [address] [place] [address] [address] [phone] [place] [address] Social History Tobacco Use Types Packs/Day Years [...] do you attend anglican or Never 2021 jehovah's witness services? 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 She originally was seen at a [employer], where they were able to use an otoscope and projected onto a screen for her to visualize. She states the right eardrum was very yellow and she was encouraged to have this immediatelyevaluated. Thereafter, she was seen in the in same-day clinic in [place] in told that she had someallergic rhinitis and eustachian tube dysfunction. She has been utilizing Flonase, NeilMed sinus rinsing, [id number] antihistamines and Sudafed, they do not seem [...] Right documented in this encounter Care Teams Chemical Laboratory Tester Relationship Specialty Start Date End Date Bonnie Franz M.D. PCP - General Family Medicine 08/25/18 01/08/[address] [phone] documented as of this encounter
--- OUTSIDE RECORDS SUMMARY | 2022-04-29 07:39 | XMS_ITS | Encounter Summary ---
:1980 Author Organization [facility] Address [address] [place] [address] Care Team Providers Name Role Phone Bonnie Franz M.D. Primary Care Provider [phone] Encounter Details Date Type Department Care Team Description 10/24/2019 Hospital Encounter Department of Radiology Lorelei Sanz Cough in [facility] Bonnie craven M.D. [address] [address] [place] [address] [place], [place] [phone] [address] Social History Tobacco Use Types Packs/Day [...] do you attend jewish or Never 2021 cheondoism services? Do you [...] Recorded Female 09/01/2021 7:35 PM INFORMATION TECHNOLOGY ASSISTANT documented as of this encounter Medications at [...] Type documented in this encounter Care Teams Golf Club Repairer Relationship Specialty Start Date End Date Bonnie Franz M.D. PCP - General Family Medicine 08/25/18 01/08/20 [address] [place] [address] documented as of this encounter
--- OUTSIDE RECORDS SUMMARY | 2022-04-29 07:39 | XMS_ITS | Encounter Summary ---
:1980 Author Organization [facility] Address [address] [place] [address] Care Team Providers Name Role Phone Bonnie Franz M.D. Primary Care Provider + [phone] Encounter Details Date Type Department Care Team Description 04/21/2019 Clinical Communication Department of Family [place] [facility], Bonnie Lauren, [facility], in [place] [address] [place] [phone] Social History Tobacco Use Types Packs/Day Years [...] do you attend presybeterian or Never 2021 faith services? Do you [...] at Date Recorded Female 09/01/2021 7:35 PM SAP BASIS documented as of this encounter Plan of Treatment Not on filedocumented as of this encounter Visit Diagnoses Not on filedocumented in this encounter Care Teams Rag Inspector Relationship Specialty Start Date End Date Bonnie Franz M.D. PCP - General Family Medicine 08/25/18 01/08/[address] [phone] documented as of this encounter
--- OUTSIDE RECORDS SUMMARY | 2022-04-29 07:39 | XMS_ITS | Encounter Summary ---
:1980 Author Organization [facility] Address [address] [place] [address] Care Team Providers Name Role Phone Bonnie Franz M.D. Primary Care Provider + [phone] Encounter Details Date Type Department Care Team Description 04/23/2019 Office Visit [facility] Lisseth Johnson initis Allergic Care at [facility] PAT Jalloh C.NRafalPRafal (Primary Dx) [address] [place] [address] [phone] (Wo rk) Social History Tobacco Use Types [...] you attend latter day or Never 2021 orthodox services? 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/2021 7:35 PM LABORER HIGH DENSITY PRESS documented as of this encounter Last Filed [...] symptoms: sore throat this morning. They were [employer] and had a free ear exam [...] no wheezes, rhonchi, or rales and Skin: [place], warm, dry IMPRESSION/REPORT/PLAN #1 Allergic rhinitis Treatment: [...] treatment, sooner if worsening. Patient has a [facility] online portal account, can view medication list electronically. Ready to learn, no apparent learning barriers were identified; learning preferences include listening. Explained diagnosis and treatment plan; patient/child/caregiver expressed understanding of the content. documented in this encounter Plan of Treatment Not on filedocumented as of this encounter Visit Diagnoses Diagnosis Rhinitis Allergic - Primary documented in this encounter Care Teams Psychiatric Registered Nurse Relationship Specialty Start Date End Date Bonnie Franz M.D. PCP - General Family Medicine 08/25/18 01/08/[address] [phone] documented as of this encounter
--- OUTSIDE RECORDS SUMMARY | 2022-04-29 07:39 | XMS_ITS | Encounter Summary ---
:1980 Author Organization [facility] Address [address] [place] [address] Care Team Providers Name Role Phone Bonnie Franz M.D. Primary Care Provider + [phone] Encounter Details Date Type Department Care Team Description 04/21/2019 Clinical [facility], [facility], [address] [place], [place] [address] [place] [address] [facility] [phone] Social History Tobacco Use Types Packs/Day Years [...] do you attend caodaism or Never 2021 orthodox services? Do you [...] at Date Recorded Female 09/01/2021 7:35 PM THREAD WINDER 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 Miscellaneous Notes [...] on filedocumented in this encounter Care Teams Jingle Writer Relationship Specialty Start Date End Date Bonnie Franz M.D. PCP - General Family Medicine 08/25/18 01/08/20 [address] [address] documented as of this encounter
--- OUTSIDE RECORDS SUMMARY | 2022-04-29 07:39 | XMS_ITS | Encounter Summary ---
:1980 Author Organization [facility] Address [address] [place] [address] Care Team Providers Name Role Phone Bonnie Franz M.D. Primary Care Provider [phone] Reason for Visit Reason Comments Med Refill Encounter Details Date Type Department Care Team Description 03/21/2019 Refill Department of Family Medicine, Simon Dykes Refill [facility], in Bonnie Blackwell M.D. [place] [address] [address] [place] [address] [phone] Social History Tobacco Use Types Packs/Day Years [...] do you attend sikhism or Never 2021 roman catholic services? Do [...] at Date Recorded Female 09/01/2021 7:35 PM PASTING INSPECTOR documented as of this encounter Plan of Treatment Not on filedocumented as of this encounter Visit Diagnoses Not on filedocumented in this encounter Care Teams Fermentation Scientist Relationship Specialty Start Date End Date Bonnie Franz M.D. PCP - General Family Medicine 08/25/18 01/08/[address] [address] documented as of this encounter
--- OUTSIDE RECORDS SUMMARY | 2022-04-29 07:39 | XMS_ITS | Encounter Summary ---
:1980 Author Organization [facility] Address [address] [place] [address] Care Team Providers Name Role Phone Bonnie Franz M.D. Primary Care Provider + [phone] Encounter Details Date Type Department Care Team Description 05/02/2019 Diagnostic Department of Abigail Calabrese Sensorineura l Hearing Otorhinolaryngology in Ralph Fraire.Leia Loss Unilateral Left [place], [place] Ear With Unrestricted [address] [place] [place] [address] Contralateral Side [phone] (Primary Dx) Social History Tobacco Use Types [...] do you attend voodoo or Never 2021 restorationist services? Do you [...] at Date Recorded Female 09/01/2021 7:35 PM RESTORATION SILVERSMITH documented as of this encounter Procedure Notes [...] Primary documented in this encounter Care Teams Assault Amphibious Vehicle Crewman Relationship Specialty Start Date End Date Bonnie Franz M.D. PCP - General Family Medicine 08/25/18 01/08/[address] [address] documented as of this encounter
--- OUTSIDE RECORDS SUMMARY | 2022-04-29 07:39 | XMS_ITS | Encounter Summary ---
:1980 Author Organization [facility] Address [address] [place] [address] Care Team Providers Name Role Phone Bonnie Franz M.D. Primary Care Provider + [phone] Encounter Details Date Type Department Care Team Description 10/24/2019 Nurse Triage Department of [facility] Linda Nicole, Medicine, [facility], in M.S. , M.S.N., R.N. [place], [place] [address] [place] [address] Social History Tobacco Use Types Packs/Day Years [...] do you attend faith or Never 2021 moravian services? Do you [...] at Date Recorded Female 09/01/2021 7:35 PM OYSTER GROWER documented as of this encounter Miscellaneous Notes [...] the high risk categories as identified by [facility] Infectious Disease? Y/N If no to [...] on filedocumented in this encounter Care Teams Elevator Serviceman Relationship Specialty Start Date End Date Bonnie Franz M.D. PCP - General Family Medicine 08/25/18 01/08/[address] [phone] documented as of this encounter
--- OUTSIDE RECORDS SUMMARY | 2022-04-29 07:39 | XMS_ITS | Encounter Summary ---
:1980 Author Organization [facility] Address [address] [place] [address] Care Team Providers Name Role Phone Bonine Franz M.D. Primary Care Provider [phone] Reason for Visit Reason Comments Med Refill Encounter Details Date Type Department Care Team Description 04/03/2019 Refill Department of Family Medicine, Qasim Ceja P.A.-C. Med Refill [facility], in [address] [place] [address] [place] [address] [place] [address] [phone] Social History Tobacco Use Types Packs/Day Years [...] do you attend confucianist or Never 2021 samaritan services? Do you [...] at Date Recorded Female 09/01/2021 7:35 PM RELIEF COOK documented as of this encounter Plan of Treatment Not on filedocumented as of this encounter Visit Diagnoses Not on filedocumented in this encounter Care Teams Casting Machine Operator Helper Relationship Specialty Start Date End Date Bonnie Franz M.D. PCP - General Family Medicine 08/25/18 01/08/[address] [address] documented as of this encounter
--- OUTSIDE RECORDS SUMMARY | 2022-04-29 07:39 | XMS_ITS | Encounter Summary ---
:1980 Author Organization [facility] Address [address] [place] [address] Care Team Providers Name Role Phone Bonnie Franz M.D. Primary Care Provider [phone] Reason for Visit Reason Comments Med Refill Encounter Details Date Type Department Care Team Description 09/14/2019 Refill Department of Family Medicine, Orlando Wiseman Med Refill [facility], in Bonnie Blackwell M.D. [place] [address] [address] [place] [address] [phone] Social History Tobacco Use Types Packs/Day Years [...] do you attend hinduism or Never 2021 sabianist services? Do you [...] at Date Recorded Female 09/01/2021 7:35 PM METAL CUTTER documented as of this encounter Plan of Treatment Not on filedocumented as of this encounter Visit Diagnoses Not on filedocumented in this encounter Care Teams Bpm Architect Relationship Specialty Start Date End Date Bonnie Franz M.D. PCP - General Family Medicine 08/25/18 01/08/[address] [address] documented as of this encounter
--- OUTSIDE RECORDS SUMMARY | 2022-04-29 07:39 | XMS_ITS | Encounter Summary ---
:1980 Author Organization [facility] Address [address] [place] [address] Care Team Providers Name Role Phone Bonnie Franz M.D. Primary Care Provider [phone] Reason for Visit Reason Comments Med Refill Encounter Details Date Type Department Care Team Description 11/08/2019 Refill Department of Family Medicine, Orlando Wiseman Med Refill [facility], in Bonnie Blackwell M.D. [place] [address] [address] [place] [address] [phone] Social History Tobacco Use Types Packs/Day Years [...] do you attend restorationist or Never 2021 christian services? 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 PCP - General Family Medicine 08/25/18 01/08/[address] [address] documented as of this encounter
--- OUTSIDE RECORDS SUMMARY | 2022-04-29 07:39 | XMS_ITS | Encounter Summary ---
:1980 Author Organization [facility] Address [address] [place] [address] Care Team Providers Name Role Phone Bonnie Franz M.D. Primary Care Provider [phone] Reason for Visit Reason Comments Med Refill Encounter Details Date Type Department Care Team Description 08/14/2019 Refill Department of Family Medicine, Orlando Wiseman Med Refill [facility], in Bonnie Blackwell M.D. [place] [address] [address] [place] [address] [phone] Social History Tobacco Use Types Packs/Day Years [...] do you attend confucianism or Never 2021 religion services? 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 PCP - General Family Medicine 08/25/18 01/08/[address] [address] documented as of this encounter
--- OUTSIDE RECORDS SUMMARY | 2022-04-29 07:39 | XMS_ITS | Encounter Summary ---
:1980 Author Organization [facility] Address [address] [place] [address] Care Team Providers Name Role Phone Bonnie Franz M.D. Primary Care Provider + [phone] Reason for Visit Reason Onset Date Comments Alison 09/22/2019 Encounter Details Date Type Department Care Team Description 09/22/2019 Clinical Communication Department of [facility] in Donis Mccullough M.D. [address] [place] [address] [phone] Social History Tobacco Use Types Packs/Day Years [...] do you attend judaism or Never 2021 muslim services? 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 PCP - General Family Medicine 08/25/18 01/08/[address] [address] documented as of this encounter
--- OUTSIDE RECORDS SUMMARY | 2022-04-29 07:40 | XMS_ITS | Encounter Summary ---
:1980 Author Organization [facility] Address [address] [place] [address] Care Team Providers Name Role Phone Bonnie Franz M.D. Primary Care Provider + [phone] Encounter Details Date Type Department Care Team Description 09/04/2018 Clinical Communication Department of Family Orlando Ndiaye [facility], Bonnie Lauren, [facility], in Ana Blackwell [place] [address] [place] [phone] Social History Tobacco Use Types Packs/Day Years [...] do you attend holiness or Never 2021 jain services? 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 - 09/06/2018 5:47 PM WASTEWATER TREATMENT SUPERVISOR Done EWATER TREATMENT SUPERVISOR Telephone Encounter - Cyndi Zaidi, L.P.N. - 09/06/2018 5:08 PM WASTEWATER TREATMENT SUPERVISOR Gricelda had her 300mg to take 2 tid on Aug 28 refilled but she has been taking 3 instead of 2 because she is suppose to take 900... So if you could fill the extra 300 tab to take tid and then make a new script in Oct 26 for the 1 900mg tab tid please.... EWATER TREATMENT SUPERVISOR Telephone Encounter - Leonila Landry - 09/06/2018 4:45 PM CST Patient, called back unable to reach nurse. Please call her back at [phone] EWATER TREATMENT SUPERVISOR Telephone Encounter - Cyndi Zaidi, L.P.N. - 09/06/2018 3:39 PM WASTEWATER TREATMENT SUPERVISOR Left msg to return my call EWATER TREATMENT SUPERVISOR Telephone Encounter - Bonnie Franz M.D. - 09/06/2018 2:43 PM WASTEWATER TREATMENT SUPERVISOR I see the dose was raised in November. Would she like me to send a prescription for 1 3 times daily to make up the difference or a whole new prescription that will mean we destroyed the old 1? EWATER TREATMENT SUPERVISOR Telephone Encounter - Riddhi Bravo L.P.NRafal - 09/06/2018 1:39 PM CST [facility] pharmacy was called, they have Gabapentin 300 mg 2 caps TID - last filled on the no other dose of this medication. EWATER TREATMENT SUPERVISOR Telephone Encounter - Bonnie Franz M.D. - 09/04/2018 4:16 PM WASTEWATER TREATMENT SUPERVISOR Can you please confirm this with pharmacy? All I see in the chart is 600 mg t.i.d.. EWATER TREATMENT SUPERVISOR documented in this encounter Plan of Treatment Not on filedocumented as of this encounter Visit Diagnoses Not on filedocumented in this encounter Care Teams Night Clerk Auditor Relationship Specialty Start Date End Date Bonnie Franz M.D. PCP - General Family Medicine 08/25/18 01/08/20 [address] [place] [address] documented as of this encounter
--- OUTSIDE RECORDS SUMMARY | 2022-04-29 07:40 | XMS_ITS | Encounter Summary ---
:1980 Author Organization [facility] Address [address] [place] [address] Care Team Providers Name Role Phone Bonnie Franz M.D. Primary Care Provider [phone] Encounter Details Date Type Department Care Team Description 09/06/2018 Orders Only Department of [facility] Franklyn barahona, Medicine, [facility] [address] [phone] (Wo rk) Social History Tobacco Use Types [...] do you attend jew or Never 2021 congregational services? 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 PCP - General Family Medicine 08/25/18 01/08/[address] [address] documented as of this encounter
--- OUTSIDE RECORDS SUMMARY | 2022-04-29 07:40 | XMS_ITS | Encounter Summary ---
:1980 Author Organization [facility] Address [address] [place] [address] Care Team Providers Name Role Phone Bonnie Franz M.D. Primary Care Provider [phone] Reason for Referral Medication Prior Authorization (Routine) - Closed Specialty Diagnoses / Procedures Referred By Contact Refer red To Contact Lito James D.O. [address] [place] [address] Referral ID Status Reason Start Date Expiration Date Visits Requ ested Visits Authorized [id number] Closed Reason for Visit Reason Onset Date Comments Rx Prior Authorization 02/09/2019 DENIAL OF DICLOFE NAC SODIUM GEL Encounter Details Date Type Department Care Team Description 02/09/2019 Clinical [facility] Pharmacy - Lito James Rx Prior Communication Ernesto Gregg Authorization [id number] [id number] Marlene (DENIAL O Yuliet [place]EN[place], [address], [place], [place] GEL) [phone] Social History Tobacco Use Types Packs/Day Years [...] do you attend alevism or Never 2021 scientology services? 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 - 02/17/2019 9:16 AM CDT Message left letting patient know that script is sent to pharmacy Telephone Encounter - Lito James D.O. - 02/17/2019 7:32 AM CDT New prescription sent to [facility] as requested. Please call the patient to inform. Lito James DO, VERITOM Automation Qa Analyst Rock Climbing Team Member Physical Medicine & Rehabilitation Telephone Encounter - [...] it. Requesting that prescription be sent to [facility] instead. Telephone Encounter - Brendan Jacob [...] Pharmaceutical PA department at email address [address] [facility]. Thank you documented in this encounter Plan of Treatment Not on filedocumented as of this encounter Visit Diagnoses Not on filedocumented in this encounter Care Teams Data Integrity Specialist Relationship Specialty Start Date End Date Bonnie Franz M.D. PCP - General Family Medicine 08/25/18 01/08/[address] [address] documented as of this encounter
--- OUTSIDE RECORDS SUMMARY | 2022-04-29 07:40 | XMS_ITS | Encounter Summary ---
:1980 Author Organization [facility] Address [address] [place] [address] Care Team Providers Name Role Phone Bonnie Franz M.D. Primary Care Provider [phone] Reason for Referral Outpatient (Routine) - Closed Specialty Diagnoses / Referred By Contact Referred To Contact Procedures Physical Medicine and Diagnoses Pain Low Back Chronic [facility] Bonnie rosado M.D. [address] [place] [phone] Referral ID Status Reason Start Date Expiration Date Visits Requ ested Visits Authorized [id number] Closed 12/05/2018 12/05/2019 1 1 Encounter Details Date Type Department Care Team Description 12/05/2018 Orders Only Department of [facility] Yuli wilder Low Back Chronic Medicine, Bonnie Lauren, (Primary Dx) Clinic, in [place] Blackwell [place] [address] [place] [phone] Social History Tobacco Use Types Packs/Day Years [...] do you attend muslim or Never 2021 yazidi services? 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 PCP - General Family Medicine 08/25/18 01/08/[address] [address] documented as of this encounter
--- OUTSIDE RECORDS SUMMARY | 2022-04-29 07:40 | XMS_ITS | Encounter Summary ---
:1980 Author Organization [facility] Address [address] [place] [address] Care Team Providers Name Role Phone Bonnie Franz M.D. Primary Care Provider + [phone] Reason for Referral MRI/CAT/PET Scan (Routine) - Closed Specialty Diagnoses / Procedures Referred By Contact Refer red To Contact Radiology Diagnoses Abnormal Findings On Diagnostic Imaging Of Other Parts Of Musculoskeletal System Lito James, D.O. [facility] Procedures MR Lumbar Spine without IV Contrast FL MRI LUMB SPINE WO CNTRST HC MRI LUMB SPINE WO CNTRST [address] [place] [address] Referral ID Status Reason Start Date Expiration Date Visits Requ ested Visits Authorized [id number] Closed 12/16/2018 12/16/2019 1 1 Reason for Visit Auth/Cert Specialty Diagnoses / Procedures Referred By Contact Refer red To Contact Diagnoses Abnormal findings on diagnostic imaging of other parts of musculoskeletal system Procedures FL MRI LUMB SPINE WO CNTRST Referral ID Status Reason Start Date Expiration Date Visits Requ ested Visits Authorized [id number] 1 1 Encounter Details Date Type Department Care Team Description 12/23/2018 Hospital Department of Lito James, Abnormal Find ings On Encounter Radiology in [facility], [address] [facility] Musculoskeletal System [address] [place], [place] [phone] Social History Tobacco Use Types Packs/Day Years [...] do you attend latter-day or Never 2021 zoroastrian services? 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 PCP - General Family Medicine 08/25/18 01/08/[address] [address] documented as of this encounter
--- OUTSIDE RECORDS SUMMARY | 2022-04-29 07:40 | XMS_ITS | Encounter Summary ---
:1980 Author Organization [facility] Address [address] [place] [address] Care Team Providers Name Role Phone Bonnie Franz M.D. Primary Care Provider [phone] Encounter Details Date Type Department Care Team Description 02/09/2019 Orders Only [facility] Pharmacy - Jocelyn Franz, [address] , [place] [place] [address] [address] [phone] [place] [address] (Wo rk) Social History Tobacco [...] do you attend anabaptist or Never 2021 tenriism services? 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 PCP - General Family Medicine 08/25/18 01/08/[address] [address] documented as of this encounter
--- OUTSIDE RECORDS SUMMARY | 2022-04-29 07:40 | XMS_ITS | Encounter Summary ---
:1980 Author Organization [facility] Address [address] [place] [address] Care Team Providers Name Role Phone Bonnie Franz M.D. Primary Care Provider + [phone] Reason for Visit Reason Onset Date Comments Med Dose Change 01/31/2019 DICLOFENAC GEL Encounter Details Date Type Department Care Team Description 01/31/2019 Clinical [facility] - Lito James, Med Dose Ch elsie Communication Daniele Gregg (DICLOFENAC GEL) [address] [place] [address] [address], [place] [address] [phone] Social History Tobacco Use Types Packs/Day Years [...] do you attend yarsanism or Never 2021 denominational services? 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 - 02/02/2019 4:17 PM CDT Patient contacted. Will request that pharmacy gets approval with insurance and will purchase OTC if necessary. Telephone Encounter - Christy Lorenzo - 02/02/2019 4:03 PM CDT Patient returning call to nurse Vero. Unable to reach nurse. Please return patient call at [phone]. Patient has authorized a detailed message to [...] a medication appropriately. Lito James DO, CAQSM Supervisor Alteration Workroom Rn Diabetes Educator Physical Medicine & Rehabilitation Telephone Encounter - Goldie Aguillon - 02/01/2019 5:01 PM CDT Patient called [phone], insurance will not cover medication Telephone Encounter - Vero Metzger L.P.N. - 02/01/2019 4:27 PM CDT Patient notified Telephone Encounter - Lito James D.O. - 02/01/2019 3:15 PM CDT Capsaicin 0.1% cream sent to the patient's pharmacy to be used up to 3 times/day as needed for improvement of knee pain. Please call the patient to inform. Lito James DO, CAQSM Supervisor Alteration Workroom Rn Diabetes Educator Physical Medicine & Rehabilitation Telephone Encounter - Vero Metzger L.P.N. - 02/01/2019 1:50 PM CDT Spoke with patient and would like something in place of Voltaren gel. No preference on oral or cream Telephone Encounter - Nery Torres - 02/01/2019 1:38 PM CDT Patient returning call [phone] Telephone Encounter - Vero Metzger L.P.N. - [...] knee pain presently. Lito James DO, CAANITRAM Supervisor Alteration Workroom Rn Diabetes Educator Physical Medicine & Rehabilitation Telephone Encounter - Brook Piedra - 01/31/2019 9:22 AM CDT Images from the original note were not included. documented in this encounter Plan of Treatment Not on filedocumented as of this encounter Visit Diagnoses Not on filedocumented in this encounter Care Teams Informatics Specialist Relationship Specialty Start Date End Date Bonnie Franz M.D. PCP - General Family Medicine 08/25/18 01/08/[address] [phone] documented as of this encounter
--- OUTSIDE RECORDS SUMMARY | 2022-04-29 07:40 | XMS_ITS | Encounter Summary ---
:1980 Author Organization [facility] Address [address] [place] [address] Care Team Providers Name Role Phone Bonnie Franz M.D. Primary Care Provider [phone] Encounter Details Date Type Department Care Team Description 11/24/2018 Orders Only Department of Family Yuli jacobson General Medicine, Bonnie Lauren, (Primary Dx) Clinic, in [place] [id number] [phone] [phone] Social History Tobacco Use Types Packs/Day Years [...] do you attend denominational or Never 2021 caodaism services? Do you [...] at Date Recorded Female 09/01/2021 7:[address] CLEANER documented as of this encounter Plan of Treatment Not on filedocumented as of this encounter Visit Diagnoses Diagnosis Weakness General - Primary documented in this encounter Care Teams Production Support Manager Relationship Specialty Start Date End Date Bonnie Franz M.D. PCP - General Family Medicine 08/25/18 01/08/[address] [address] documented as of this encounter
--- OUTSIDE RECORDS SUMMARY | 2022-04-29 07:40 | XMS_ITS | Encounter Summary ---
:1980 Author Organization [facility] Address [address] [place] [address] Care Team Providers Name Role Phone Bonnie Franz M.D. Primary Care Provider + [phone] Encounter Details Date Type Department Care Team Description 11/30/2018 Orders Only [facility] - Che Hedrick [address] [facility] [place] [address] Social History [...] do you attend yazdanism or Never 2021 taoist services? 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 PCP - General Family Medicine 08/25/18 01/08/[address] [phone] documented as of this encounter
--- OUTSIDE RECORDS SUMMARY | 2022-04-29 07:40 | XMS_ITS | Encounter Summary ---
:1980 Author Organization [facility] Address [address] [place] [address] Care Team Providers Name Role Phone Bonnie Franz M.D. Primary Care Provider + [phone] Reason for Visit Reason Onset Date Comments Alison 11/04/2018 Encounter Details Date Type Department Care Team Description 11/04/2018 Clinical Communication Department of Lucas Stuart Neurology in Donis Mccullough M.D. [address] [place] [phone] [phone] Social History Tobacco Use Types Packs/Day Years [...] do you attend christian or Never 2021 evangelical services? 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 PCP - General Family Medicine 08/25/18 01/08/[address] [phone] documented as of this encounter
--- OUTSIDE RECORDS SUMMARY | 2022-04-29 07:40 | XMS_ITS | Encounter Summary ---
:1980 Author Organization [facility] Address [address] [place] [address] Care Team Providers Name Role Phone Bonnie Franz M.D. Primary Care Provider + [phone] Encounter Details Date Type Department Care Team Description 09/06/2018 Clinical Communication Department of Family [facility] Ndiaye [facility], Bonnie Lauren, [facility], in [place] [address] [place] [phone] Social History Tobacco Use Types Packs/Day Years [...] do you attend caodaism or Never 2021 druze services? 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 - 09/07/2018 10:26 AM HOT STICK WORKER SUBJECTIVE CHIEF COMPLAINT / REASON FOR CALL [...] words The following references were used: none STICK WORKER Telephone Encounter - Bonnie Franz M.D. - 09/07/2018 10:08 AM CST I sent a new prescription for 300 mg to add to the 600 mg. She should let me know of at the time of her next fill and I can send a prescription for the proper amount. STICK WORKER Telephone Encounter - Abigail Gale L.P.N. - 09/07/2018 9:42 AM CST Patient was seen by Dr. Stuart, Neurology in [place] on 11/20/2017. This provider changed the gabapentin to 900mg TID. Patient would like to continue on this dosage. Please advise. STICK WORKER Telephone Encounter - Christy Lorenzo - 09/07/2018 9:14 AM CST [facility] pharmacy in [place] stating patient notified them she is on Gabapentin 900mg three times daily and Rx pharmacy received yesterday stated 600mg three times daily. Please call pharmacy with clarification at [phone]. Pharmacy authorizing a detailed message to be left at this number STICK WORKER Telephone Encounter - Liu Taylor - 09/06/2018 3:44 PM CST Patient is returning call please advise. STICK WORKER Telephone Encounter - Bhavani Chavira - 09/06/2018 3:12 PM CST Nurse Review: Pharmacy Communication Provider: Bonnie Franz M.D. Medication: GABAPENTIN CAP Strength: 300mg Frequency: Take 3 capsules by mouth three times daily Pharmacy: [facility] Comment: Attn Dr Perry. This is the directions that the pt states is the correct directions and was last filled on 08/07/2018. STICK WORKER Telephone Encounter - Abigail Gale L.P.N. - 09/06/2018 12:53 PM HOT STICK WORKER On 09/03/2018 Current prescription is 300mg 2 tabs TID . Please advise STICK WORKER Telephone Encounter - Lore Lemus - 09/06/2018 [...] advise Name of Medication (if relevant): gabapentin STICK WORKER documented in this encounter Plan of Treatment Not on filedocumented as of this encounter Visit Diagnoses Not on filedocumented in this encounter Care Teams Boy'S Adviser Relationship Specialty Start Date End Date Bonnie Franz M.D. PCP - General Family Medicine 08/25/18 01/08/[address] [phone] documented as of this encounter
--- OUTSIDE RECORDS SUMMARY | 2022-04-29 07:40 | XMS_ITS | Encounter Summary ---
:1980 Author Organization [facility] Address [address] [place] [address] Care Team Providers Name Role Phone Bonnie Franz M.D. Primary Care Provider [phone] Reason for Visit Reason Comments Med Refill Encounter Details Date Type Department Care Team Description 10/05/2018 Refill Department of Family Medicine, Simon Dykes Refill [facility], in Bonnie [place]well M.D. [place] [id number] [address] [place] [address] [phone] Social History Tobacco Use Types Packs/Day Years [...] do you attend protestant or Never 2021 catholic services? 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 Provider: Dr.Fruebrodt Christensen Pharmacy: [facility] Medication: Gabapentin 300 mg Communication NG TENDER documented in this encounter Plan of Treatment Not on filedocumented as of this encounter Visit Diagnoses Not on filedocumented in this encounter Care Teams Sterile Process Coordinator Relationship Specialty Start Date End Date Bonnie Franz M.D. PCP - General Family Medicine 08/25/18 01/08/[address] [phone] documented as of this encounter
--- OUTSIDE RECORDS SUMMARY | 2022-04-29 07:40 | XMS_ITS | Encounter Summary ---
:1980 Author Organization [facility] Address [address] [place] [address] Care Team Providers Name Role Phone Bonnie Franz M.D. Primary Care Provider [phone] Reason for Visit Reason Comments Med Refill Encounter Details Date Type Department Care Team Description 12/07/2018 Refill Department of Family Medicine, Qasim Ceja P.A.-C. Med Ref[facility], in [address] [place] [phone] [place] [address] [place] [address] [phone] Social History Tobacco Use Types Packs/Day Years [...] do you attend cheondoism or Never 2021 yarsanism services? 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 PCP - General Family Medicine 08/25/18 01/08/[address] [place] [address] [phone] documented as of this encounter
--- OUTSIDE RECORDS SUMMARY | 2022-04-29 07:40 | XMS_ITS | Encounter Summary ---
:1980 Author Organization [facility] Address [address] [place] [address] Care Team Providers Name Role Phone Bonnie Franz M.D. Primary Care Provider [phone] Reason for Visit Reason Onset Date Comments medication dosage 09/20/2018 Encounter Details Date Type Department Care Team Description 09/20/2018 Clinical Communication [facility] dosage Medicine, [facility], in [place], [place] [address] [phone] Social History Tobacco Use Types Packs/Day Years [...] do you attend tenriism or Never 2021 gnosticism services? 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 - 09/22/2018 9:06 AM SFDC DEVELOPER SUBJECTIVE CHIEF COMPLAINT / REASON FOR CALL medication dosage INFORMATION DISCUSSED Patient given advisement from dr zafar and notified that correct prescription and directions have been sent to [facility] pharmacy PLAN Disposition/Recommendation: self-care appropriate at this time . Information: not applicable Caller agreeable to plan of care: yes The following references were used: provider dr zafar DEVELOPER Telephone Encounter - Bonnie Franz M.D. - 09/21/2018 5:03 PM SFDC DEVELOPER It needed to be ordered that way previously to even out her supply. I have now ordered 3 tablets 3 times daily DEVELOPER Telephone Encounter - Maryam Shelton, L.P.N. - 09/20/2018 5:26 PM SFDC DEVELOPER Please advise on response to patient DEVELOPER Telephone Encounter - Yolanda Evangelista - 09/20/2018 4:25 PM CST Reason for Communication: Patient's , Amador called, said the rx has been called in incorrectlytwice, they checked about 5 min with Selene Blackwell. Current Can Nursing/Provider leave a detailed message: yes Did the patient refuse triage through Nurse line? (for symptom based concerns) Action Needed: please call Name of Medication (if relevant): DEVELOPER Telephone Encounter - Jeanie Alexander - 09/20/2018 [...] back. Name of Medication (if relevant): Gabapentin DEVELOPER documented in this encounter Plan of Treatment Not on filedocumented as of this encounter Visit Diagnoses Not on filedocumented in this encounter Care Teams Mold Engraver Relationship Specialty Start Date End Date Bonnie Franz M.D. PCP - General Family Medicine 08/25/18 01/08/[address] [phone] documented as of this encounter
--- OUTSIDE RECORDS SUMMARY | 2022-04-29 07:40 | XMS_ITS | Encounter Summary ---
:1980 Author Organization [facility] Address [address] [place] [address] Care Team Providers Name Role Phone Bonnie Franz M.D. Primary Care Provider [phone] Reason for Referral Outpatient (Routine) - Closed Specialty Diagnoses / Referred By Contact Referred To Contact Procedures Physical Medicine and Lito James D.O. [facility] [address] [place] [address] Referral ID Status Reason Start Date Expiration Date Visits Requ ested Visits Authorized [id number] Closed 12/16/2018 12/16/2019 1 1 Scheduling Instructions 30 minute appointment for bilateral knee pain utpatient (Routine) - Closed Specialty Diagnoses / Referred By Contact Referred To Contact Procedures Physical Medicine and Lito James D.O. [facility] [place] [id number] [place] [address] Referral ID Status Reason Start Date Expiration Date Visits Requ ested Visits Authorized [id number] Closed 12/16/2018 12/16/2019 1 1 Scheduling Instructions 15 minute clinic appointment for lumbar spine MRI results RI/CAT/PET Scan (Routine) - Closed Specialty Diagnoses / Procedures Referred By Contact Refer red To Contact Radiology Diagnoses Abnormal Findings On Diagnostic Imaging Of Other Parts Of Musculoskeletal System Lito James D.O. [facility] [place] [facility] Procedures MR Lumbar Spine without IV Contrast RI MRI LUMB SPINE WO CNTRST HC MRI LUMB SPINE [place] CNTRST [address] [place] [address] Referral ID Status Reason Start Date Expiration Date Visits Requ ested Visits Authorized [id number] Closed 12/16/2018 12/16/2019 1 1 Reason for Visit Reason Comments Back Pain low Outpatient (Routine) - Closed Specialty Diagnoses / Referred By Contact Referred To Contact Procedures Physical Medicine and Diagnoses Pain Low Back Chronic [facility] Bonnie rosado M.D. [address] [place] [address] Referral ID Status Reason Start Date Expiration Date Visits Requ ested Visits Authorized [id number] Closed 12/05/2018 12/05/2019 1 1 Encounter Details Date Type Department Care Team Description 12/16/2018 Comprehensive Visit Department of Lito James Pain L ow Back Chronic; Physical Medicine Jori.ORafal Abnormal Findings On Diagnostic Imaging Of Other Parts Of Musculoskeletal System and Rehabilitation [address] [place]oss[place] [address] [address] [facility] [place] [phone] (Work) [phone] Social History Tobacco Use Types Packs/Day Years [...] do you attend anabaptist or Never 2021 zoroastrianism services? 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 [...] note __ Referrals/labs/imaging/procedures/DME (orders): Radiology & Imaging [place] [facility] - call [phone] extension [phone] to schedule your MRI test; Ativan 1 hour before MRI -will need a putaway driver __ Follow-up phone call/portal message: None __ Follow-up clinic appointment: 1-2 business days after completion of further diagnostic imaging for discussion of results to determine further medical care moving forward; follow-up as needed for evaluation of knee pain as discussed __ Scheduling desk Please feel free to call ([phone]) or message me on the [facility] Patient Portal if you have any questions. [...] sumeet davidson, formal physical therapy at the [facility], completed in August 2017 with completion of her home exercise program currently, and rn intensive care unit along with cold/ice. Notes numbness of the [...] facet compression (left) Diagnostics outside film(s) from [facility] were reviewed today, independent interpretation/visualization of [...] needed for improvement of pain/discomfort. Continue with rn intensive care unit if the benefits outweigh downsides of time, [...] care moving forward. Lito James DO, CAQSM Slag Skimmer Rag Baler Physical Medicine & Rehabilitation I spent a total of 35 minutes [id number] with the patient during today's office visit. [...] RST LOS, Neuroradiology N/A Magnetic Resonance [facility], Neuroradiology [facility] Specimen (Source) Anatomical Collection Method Collection [...] System documented in this encounter Care Teams Endocrinology Teacher Relationship Specialty Start Date End Date Bonnie Franz M.D. PCP - General Family Medicine 08/25/18 01/08/[address] [phone] documented as of this encounter
--- OUTSIDE RECORDS SUMMARY | 2022-04-29 07:40 | XMS_ITS | Encounter Summary ---
:[address] [facility] Address [address] [place] [address] Care Team Providers Name Role Phone Bonnie Franz M.D. Primary Care Provider [phone] Reason for Visit Reason Onset Date Comments Communication 12/03/2018 Neurology Appt Encounter Details Date Type Department Care Team Description 12/03/2018 Clinical Communication Department of [facility] Family Medicinelisseth (Neurology Appt ) [facility] [address] [phone] Social History Tobacco Use Types Packs/Day [...] do you attend taoism or Never 2021 taoist services? 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 - 12/06/2018 9:26 AM CDT SUBJECTIVE CHIEF COMPLAINT / REASON FOR CALL Communication (Neurology Appt ) Patient is requesting the following information: Requesting tens unit PLAN The following information was provided : Notified neurology consult is in and she is at [facility] currently and will request this of that [...] AM CDT Patient is seeing Neurology in [place] on January [address] Perry placed and order for the patient to see Dr. Morales in [place]. Does patient need appointment in [place]? Please let scheduling know. documented in this encounter Plan of Treatment Not on filedocumented as of this encounter Visit Diagnoses Not on filedocumented in this encounter Care Teams Engineering Executive Relationship Specialty Start Date End Date Bonnie Franz M.D. PCP - General Family Medicine 08/25/18 01/08/[address] [phone] documented as of this encounter
--- OUTSIDE RECORDS SUMMARY | 2022-04-29 07:40 | XMS_ITS | Encounter Summary ---
:1980 Author Organization [facility] Address [address] [place] [address] Care Team Providers Name Role Phone Bonnie Franz M.D. 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 [facility] [place] [facility] Procedures [place] Sacroiliac Joint Injection Right WA INJ SI JT W MARIAJOSE W ARTHROGRPHY HC INJ SI JT W MARIAJOSE W ARTHROGRPHY [address] [place] [address] Referral ID Status Reason Start Date Expiration Date Visits Requ ested Visits Authorized [id number] Closed 01/24/2019 01/24/2020 1 1 Reason for Visit Reason Comments Back Pain MRI results Knee Pain bilateral Outpatient (Routine) - Closed Specialty Diagnoses / Referred By Contact Referred To Contact Procedures Physical Medicine and Lito James D.O. [facility] [place] [facility] [address] [place] [address] Referral ID Status Reason Start Date Expiration Date Visits Requ ested Visits Authorized [id number] Closed 12/16/2018 12/16/2019 1 1 Encounter Details Date Type Department Care Team Description 01/24/2019 Office Visit Department of Physical Lito James, Pain Low Back Chronic (Primary Dx); Medicine and D.O. Spondylosis Lumbar Without Myelopathy; [place] [address] [address] Pain Kne e Left; [address] Pain Knee Right; [address] [place], [place] Secondary Osteoarthritis Kne e Bilateral; [place] [address] Obesity Body Mass Index 30-39.9 Adult [phone] Social History Tobacco Use Types Packs/Day Years [...] do you attend quaker or Never 2021 anglican services? 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 - 01/24/2019 2:30 PM CDT Follow-Up Plan: __ Prescription medications: Voltaren gel __ Weight loss, including decreased oral intake and increased physical activity __ Referrals/labs/imaging/procedures/DME (orders): Right SI joint corticosteroid injection in [place] __ Follow-up phone call/portal message: If interested in further injection therapy for the knees (repeat steroid, platelet rich plasma, etc.) as discussed for further treatment purposes __ Follow-up clinic appointment: 2 weeks if no improvement of symptoms to determine appropriate further medical care moving forward __ Scheduling desk Please feel free to call ([phone]) or message me on the [facility] Patient Portal if you have any [...] visit. 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 Notes right-sided [...] has consisted of formal physical therapy at [facility], cane use, knee bracing, previous corticosteroid injections, completed into the left knee in 2015 with improvement of symptoms for 2 months, and completion of bilateral Synvisc One injections completed at [facility] in 2017 with improvement of symptoms [...] the patient and outside medical record(s) from [facility] were reviewed today and discussed with [...] sacroiliac joint corticosteroid injection abimbola completed in [place] for further treatment purposes. Patient wished to [...] appropriate moving forward. Lito James DO, CAQSM Casing Splitter Sales Operations Manager Physical Medicine & Rehabilitation Patient's conditions were thoroughly discussed during today's visit with greater than 50% of the visit spent counseling the patient with total time spent [id number] with the patient being 40 minutes. documented in this encounter Plan of Treatment Not on filedocumented as of this encounter Results [place] Sacroiliac Joint Injection Right (02/07/2019 1:56 PM CDT) Specimen (Source) Anatomical Collection Method Collection Time Re ceived Time Location / / Volume Laterality 02/07/2019 2:59 PM CDT Impressions [id number] - 02/07/2019 3:00 PM CDT Successful fluoroscopic-guided therapeutic injection of the right sacroiliac joint. Narrative [id number] - 02/07/2019 3:00 PM CDT EXAM: FL [...] medications. Patient Education provided by a care steamtable worker. Ready to learn, no apparent learning barriers [...] medications. Patient Education provided by a care steamtable worker. Ready to learn, no apparent learning barriers were identified. Post-procedure care exp lained; patient expressed understanding of the content. IMPRESSION: Successful fluoroscopic-guided therapeut ic injection of the right sacroiliac joint. 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 PCP - General Family Medicine 08/25/18 01/08/20 [address] [place] [address] documented as of this encounter
--- OUTSIDE RECORDS SUMMARY | 2022-04-29 07:40 | XMS_ITS | Encounter Summary ---
:1980 Author Organization [facility] Address [address] [place] [address] Care Team Providers Name Role Phone Bonnie Franz M.D. Primary Care Provider + [phone] Encounter Details Date Type Department Care Team Description 12/02/2018 Orders Only [facility] Pharmacy - Indra Mata M.D. [address] [place] [address] [address] [facility] [place] [address] [place], [place] [id number] (Wo rk) Social History Tobacco Use Types [...] do you attend denominational or Never 2021 taoist services? 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 PCP - General Family Medicine 08/25/18 01/08/[address] [address] documented as of this encounter
--- OUTSIDE RECORDS SUMMARY | 2022-04-29 07:40 | XMS_ITS | Encounter Summary ---
:1980 Author Organization [facility] Address [address] [place] [address] Care Team Providers Name Role Phone Bonnie Franz M.D. Primary Care Provider + [phone] Reason for Visit Reason Comments Cyst vaginal cyst Outpatient (Routine) - Closed Specialty Diagnoses / Procedures Referred By Contact Refer red To Contact Family Medicine Diagnoses Cyst Labia [facility] Nam Nicole M.D. [address] [place] [phone] Referral ID Status Reason Start Date Expiration Date Visits Requ ested Visits Authorized [id number] Closed 11/16/2018 11/16/2019 1 1 Encounter Details Date Type Department Care Team Description 11/19/2018 Routine Department of Deepa Armstrong (Primary Dx); Obstetrics and M MRafalDRafal Pap Smear Exa mination; Gynecology in Obesity Body M ass Index 30-39.[address] [address] Social History Tobacco Use Types Packs/Day Years [...] do you attend temple or Never 2021 congregation services? 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 - 11/19/2018 3:45 PM CDT RECOVERY ROOM NURSE CONSULT NOTE CHIEF COMPLAINT / REASON FOR [...] supracervical abdominal hysterectomy in 2010 done in [facility]. She is sexually active without issues. She [...] and without masses. Normal Bartholin, Urethral and Yoncalla's glands. Vaginal mucosa is pink and moist [...] No clubbing cyanosis or edema. Nontender bilaterally. Acidizer for pelvic exam or qualifying procedure: Kennedy [...] and updated. - Follow up PRN for RECOVERY ROOM NURSE concerns. - 30 minute visit with greater than 50% spent in counseling and coordination of care. Deepa Armstrong MD Obstetrics and Gynecology [facility] documented in this encounter Plan [...] athologist Signature HPV with Negative Negative 11/22/2018 [facility] Genotyping, 3:39 PM CDT HEALTH [facility], [facility] Comment: Negative for high risk [...] Organization Address City/State/ZIP Code Phon e Number [facility] [address] [place] [address] LAB ThinPrep w/HPV Co-Test Screen (11/19/2018 5:13 PM CDT) Component Value Ref Test Analysis Performed Pathologis t Range Method Time At Signature 11/22/2018 [facility] 4:02 PM HEALTH CDT [facility] Report MATT Do(ASCP) 11/22/2018 [facility] electronically I verify that I have examined all relevant slides/ma terials 4:02 PM HEALTH signed by for the specimen(s) and rendered or confirmed the diagnosi s. CDT SYSTEM- [facility] Gross Description Received specimen 11/22/2018 [facility] in a ThinPrep 4:02 PM HEALTH vial. CDT SYSTEM- [facility] Pap Test Source Cervical/Endocervi 11/22/2018 [facility] lise 4:02 PM HEALTH CDT [facility] Clinical History hysterectomy 11/22/2018 [facility] 4:02 PM HEALTH CDT [facility] Menstrual hysterectomy 11/22/2018 [facility] Status(LMP, PM, 4:02 PM HEALTH ) CDT [facility] Hormone None/Not known 11/22/2018 [facility] Therapy/Contracep 4:02 PM HEALTH tives CDT SYSTEM- [facility] Interpretation Cervical/Endocervical ??(ThinPrep): 11/22/2018 [facility] Satisfactory for Evaluation 4:02 PM HE ALTH Endocervical/transformation zone components absent CDT SYSTEM- Negative for Intraepithelial Lesion or Malignancy [facility] High Risk HPV Testing results are NEGATIVE. CYTOLOGY HPV by Music Worker-Mediated Amplification ??(TMA) for E6/E7 viral messenger RNA (mRNA) is an in-vitro diagnostic test for the detection of 14 high-risk Human Papilloma (HPV) types (16, 18, 31, 33, 35, 39, 45, 51, 52, 56, 58, 59, 66, and 68) in cervical specimens. Additional testing performed at [facility], [address] [place] [address]. Specimen Anatomical Collection Method Collection Time Receive d Time (Source) Location / / Volume Laterality Varies 11/19/2018 5:13 PM 9 8:50 (Cervix/Endocerv CDT AM CDT ix) Narrative This result has an attachment that is no t available. Deepa Armstrong M.D. LAB PAP PATHDX ORDERABLES Performing Organization Address City/State/[place] [address] CYTOLOGY documented in this encounter Visit Diagnoses Diagnosis Cyst Labia - Primary Pap Smear Examination Obesity Body Mass Index 30-39.9 Adult documented in this encounter Care Teams Fpga Engineer Relationship Specialty Start Date End Date Bonnie Franz M.D. PCP - General Family Medicine 08/25/18 01/08/[address] [phone] documented as of this encounter
--- OUTSIDE RECORDS SUMMARY | 2022-04-29 07:40 | XMS_ITS | Encounter Summary ---
:1980 Author Organization [facility] Address [address] [place] [address] Care Team Providers Name Role Phone Bonnie Franz M.D. Primary Care Provider [phone] Reason for Referral Outpatient (Routine) - Closed Specialty Diagnoses / Procedures Referred By Contact Refer red To Contact Diagnoses Pain Low Back Chronic Spondylosis Lumbar Without Myelopathy Lito James D.O. [facility] [place] [facility] Procedures [place] Sacroiliac Joint Injection Right [place] INJ SI JT W MARIAJOSE W ARTHROGRPHY HC INJ SI JT W MARIAJOSE W ARTHROGRPHY [address] [place] [address] Referral ID Status Reason Start Date Expiration Date Visits Requ ested Visits Authorized [id number] Closed 01/24/2019 01/24/2020 1 1 Reason for Visit Outpatient (Routine) - Closed Specialty Diagnoses / Procedures Referred By Contact Refer red To Contact Diagnoses Pain Low Back Chronic Spondylosis Lumbar Without Myelopathy Lito James D.O. [facility] [place] [facility] Procedures [place] Sacroiliac Joint Injection Right [place] INJ SI JT W MARIAJOSE W ARTHROGRPHY HC INJ SI JT W MARIAJOSE W ARTHROGRPHY [address] [place] [address] Referral ID Status Reason Start Date Expiration Date Visits Requ ested Visits Authorized [id number] Closed 01/24/2019 01/24/2020 1 1 Encounter Details Date Type Department Care Team Description 02/07/2019 Hospital Encounter Department of Lito James, Pain Lo w Back Chronic; Radiology in [place] Spondylosis Lumbar Without Myelopathy [place], [place] [address] Marlene Parada [address] [place], [place] [phone] [phone] Social History Tobacco Use Types Packs/Day Years [...] do you attend yazidi or Never 2021 cheondoism services? 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 Patient has a special needs bus driver present today. Education/pamphlet provided to patient. [...] Volume Laterality 02/07/2019 2:59 PM CDT Impressions [id number] - 02/07/2019 3:00 PM CDT Successful fluoroscopic-guided therapeutic injection of the right sacroiliac joint. Narrative [id number] - 02/07/2019 3:00 PM CDT EXAM: FL [...] medications. Patient Education provided by a care team supervisor. Ready to learn, no apparent learning barriers [...] medications. Patient Education provided by a care team supervisor. Ready to learn, no apparent learning barriers were identified. Post-procedure care exp lained; patient expressed understanding of the content. IMPRESSION: Successful fluoroscopic-guided therapeut ic injection of the right sacroiliac joint. Lito VALDOVINOS FLUOROSCOPY PROCEDURES Performing Organization Address City/State/ZIP Code Phon e Number [id number] [place] documented in this encounter Visit Diagnoses [...] dose documented in this encounter Care Teams Inclusion Internship Relationship Specialty Start Date End Date Bonnie Franz M.D. PCP - General Family Medicine 08/25/18 01/08/[address] [phone] documented as of this encounter
--- OUTSIDE RECORDS SUMMARY | 2022-04-29 07:40 | XMS_ITS | Encounter Summary ---
:1980 Author Organization [facility] Address [address] [place] [address] Care Team Providers Name Role Phone Bonnie Franz M.D. Primary Care Provider + [phone] Encounter Details Date Type Department Care Team Description 09/07/2018 Clinical Communication Department of Family Orlando Ndiaye [facility], Bonnie Lauren, [facility], in [place] [phone] [place] [phone] Social History Tobacco Use Types Packs/Day Years [...] do you attend taoism or Never 2021 zoroastrianism services? 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 PCP - General Family Medicine 08/25/18 01/08/[address] [phone] documented as of this encounter
--- OUTSIDE RECORDS SUMMARY | 2022-04-29 07:40 | XMS_ITS | Encounter Summary ---
:1980 Author Organization [facility] Address [address] [place] [address] Care Team Providers Name Role Phone Bonnie Franz M.D. Primary Care Provider + [phone] Encounter Details Date Type Department Care Team Description 02/01/2019 Orders Only [facility] Pharmacy - Norman Santiago [address] [facility] [place] [phone] Social History [...] do you attend yarsani or Never 2021 advent services? 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 PCP - General Family Medicine 08/25/18 01/08/[address] [phone] documented as of this encounter
--- OUTSIDE RECORDS SUMMARY | 2022-04-29 07:40 | XMS_ITS | Encounter Summary ---
:1980 Author Organization [facility] Address [address] [place] [address] Care Team Providers Name Role Phone Bonnie Franz M.D. Primary Care Provider + [phone] Reason for Referral Outpatient (Routine) - Closed Specialty Diagnoses / Procedures Referred By Contact Refer red To Contact Family Medicine Diagnoses Cyst Labia DEON Franz [place] Nicole [address] [place] [phone] Referral ID Status Reason Start Date Expiration Date Visits Requ ested Visits Authorized [id number] Closed 11/16/2018 11/16/2019 1 1 RI/CAT/PET Scan (Routine) - Closed Specialty Diagnoses / Procedures Referred By Contact Refer red To Contact Radiology Diagnoses Epilepsy Seizure Generalized Convulsive (HCC) DEON Franz [facility] Region Procedures MR Brain without and with IV Contrast MI MRI BRAIN WO/W CNTRST HC MRI BRAIN WO/W CNTRST Ana Nicole [address] [place] [phone] Referral ID Status Reason Start Date Expiration Date Visits Requ ested Visits Authorized [id number] Closed 11/16/2018 11/16/2019 1 1 Reason for Visit Reason Comments TUBING DRIER issue Cyst on the lip of the vagin a and boil on back of leg. Med Management Patient would like to discus s Gabapentin medication prescription. Primarily due to insurance maira daley. Appointment Request (Routine) - Closed Specialty Diagnoses / Procedures Referred By Contact Refer red To Contact Family Medicine Referral ID Status Reason Start Date Expiration Date Visits Requ ested Visits Authorized [id number] Closed 11/09/2018 11/09/2019 1 Encounter Details Date Type Department Care Team Description 11/16/2018 [facility] epsy Seizure Generalized Convulsive (HCC) (Primary Dx); Medicine, Bonnie Davenport Headach e; Clinic, in [place] Cyst Labia; [place] [address] Screening Lipid; [address] [place], [place] [phone] Social History Tobacco Use Types Packs/Day Years [...] do you attend buddhism or Never 2021 jew services? 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 TUBING DRIER issue Cyst on the lip of the [...] Stable. #3 Cyst Labia Will ask for dry sander consultation. #4 Screening Lipid She is fasting [...] Potassium, S 4.2 3.6 - 5.2 11/16/2018 [facility] mmol/L 1:54 PM [facility] Sodium, S 143 135 - 145 11/16/2018 [facility] mmol/L 1:54 PM [facility] Chloride, S 105 98 - 107 11/16/2018 [facility] mmol/L 1:54 PM [facility] Bicarbonate, S 28 22 - 29 11/16/2018 [facility] mmol/L 1:54 PM [facility] [place] [facility] Anion Gap 10 7 - 15 11/16/2018 [facility] 1:54 PM [facility] BUN (Blood Urea 8 6 - 21 11/16/2018 [facility] Nitrogen), S mg/dL 1:54 PM [facility] [place] Creatinine 0.84 0.59 - 11/16/2018 [facility] 1.04 mg/dL 1:54 PM [facility] eGFR-Non 89 >=60 11/16/2018 [facility] Black/ mL/min/BSA 1:54 PM [facility] [place] [facility] Comment: ----ADDITIONAL INFORMATION---- Estimated GFR calculated using the 2009 CKD_EPI creatinine equation. eGFR-Black/ >90 >=60 mL/min/BSA 2018 1:54 PM [facility] [place] [facility] Comment: ----ADDITIONAL INFORMATION---- Estimated GFR calculated using the 2009 CKD_EPI creatinine equation. Calcium, Total, S 9.7 8.6 - 10.0 mg/dL 11/16/2018 1 :54 PM [facility] [place] [facility] Glucose, S 79 70 - 140 mg/dL 11/16/2018 1:54 PM T [facility] [place] [facility] Specimen Anatomical Collection Method Collection Time Receive d Time (Source) Location / / Volume Laterality Blood (Blood, 11/16/2018 10:35 11/16/2018 1:03 Venous) AM CDT PM CDT Bonnie Franz M.D. LAB BLOOD ADD-ON Performing Organization Address [facility] Phon e Number [facility] [address] [place] [address] LAB S-TSH (Thyroid-Stimulating Hormone - Sensitive) (11/16/2018 10:35 AM CDT) athologist Signature TSH, Sensitive 2.7 0.3 - 4.2 11/16/2018 [facility] mIU/L 1:54 PM CDT [facility] Comment: Biotin has been identified [...] M.D. LAB BLOOD ADD-ON Performing Organization Address [facility] Phon e Number [facility] [place] [address] [place] [address] LAB Lipid Panel (11/16/2018 10:35 AM CDT) athologist Signature Cholesterol, 190 mg/dL 11/16/2018 [facility] Total 1:54 PM CDT [facility] Comment: ----REFERENCE VALUE---- Desirable: < 200 Borderline high: 200 - 239 High: > or = 240 Triglycerides 95 mg/dL 11/16/2018 1:54 PM CDT [facility] Comment: ----REFERENCE VALUE---- Normal: <150 Borderline high: 150-199 High: 200-499 Very high: > or =500 Cholesterol, HDL, S 68 >=50 mg/dL 11/16/2018 1:54 PM CDT [facility] [place] [facility] Calculated LDL 103 mg/dL 11/16/2018 1:54 PM CDT [facility] [place] [facility] Comment: ----REFERENCE VALUE---- Desirable: <100 Above Desirable: 100-129 Borderline high: 130-159 High: 160-189 Very high: > or =190 Cholesterol, Non-HDL, 122 mg/dL 11/16/2018 1:54 PM CDT [facility] [place] [facility] Comment: ----REFERENCE VALUE---- Desirable: <130 Above Desirable: 130-159 Borderline high: 160-189 High: 190-219 Very high: > or =220 Specimen Anatomical Collection Method Collection Time Receive d Time (Source) Location / / Volume Laterality Blood (Blood, 11/16/2018 10:35 11/16/2018 1:03 Venous) AM CDT PM CDT Bonnie Franz M.D. LAB BLOOD ADD-ON Performing Organization Address City/State/ZIP Code Phon e Number [facility] [address] [place] [address] LAB documented in this encounter Visit Diagnoses Diagnosis Epilepsy Seizure Generalized Convulsive (HCC) - Primary Headache Unspecified Cyst Labia Screening Lipid Hypothyroidism Epilepsy Seizure Generalized Convulsive (HCC) documented in this encounter Care Teams Block Out Machine Operator Relationship Specialty Start Date End Date Bonnie Franz M.D. PCP - General Family Medicine 08/25/18 01/08/202199 [place] [address] documented as of this encounter
--- OUTSIDE RECORDS SUMMARY | 2022-04-29 07:40 | XMS_ITS | Encounter Summary ---
:1980 Author Organization [facility] Address [address] [place] [address] Care Team Providers Name Role Phone Bonnie Franz M.D. Primary Care Provider + [phone] Encounter Details Date Type Department Care Team Description 09/06/2018 Clinical Communication Department of Family Orlando Ndiaye [facility], Bonnie Lauren, [facility], in [place] [address] [place] [phone] Social History Tobacco Use Types Packs/Day Years [...] do you attend restorationism or Never 2021 yazdanism services? 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 PCP - General Family Medicine 08/25/18 01/08/[address] [phone] documented as of this encounter
--- OUTSIDE RECORDS SUMMARY | 2022-04-29 07:40 | XMS_ITS | Encounter Summary ---
:[address] Author [address] [facility] Address [address] [place] [address] Care Team Providers Name Role Phone Bonnie Franz M.D. Primary Care Provider [phone] Reason for Referral MRI/CAT/PET Scan (Routine) - Closed Specialty Diagnoses / Procedures Referred By Contact Refer red To Contact Radiology Diagnoses Epilepsy Seizure Generalized Convulsive (HCC) DEON Franz [place] Procedures MR Brain without and with IV Contrast [place] MRI BRAIN WO/W MERLE HC MRI BRAIN WO/W MERLE Nicole M.D. [address] [place] [phone] Referral ID Status Reason Start Date Expiration Date Visits Requ ested Visits Authorized [id number] Closed 11/16/2018 11/16/2019 1 1 Reason for Visit MRI/CAT/PET Scan (Routine) - Closed Specialty Diagnoses / Procedures Referred By Contact Refer red To Contact Radiology Diagnoses Epilepsy Seizure Generalized Convulsive (HCC) DEON Franz [place] Procedures MR Brain without and with IV Contrast [place] MRI BRAIN WO/W MERLE HC MRI BRAIN WO/W MERLE Nicole M.D. [address] [place] [phone] Referral ID Status Reason Start Date Expiration Date Visits Requ ested Visits Authorized [id number] Closed 11/16/2018 11/16/2019 1 1 Encounter Details Date Type Department Care Team Description 11/23/2018 Hospital Encounter Department of [facility] Epilep sy Seizure Radiology in [place] Jossy Rodriguez M.D. Convulsive ([facility]) [address] [address] P[place]AJ [place] [phone] [address] Social History Tobacco Use Types Packs/Day [...] do you attend muslim or Never 2021 episcopal services? 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 PCP - General Family Medicine 08/25/18 01/08/[address] [phone] documented as of this encounter
--- OUTSIDE RECORDS SUMMARY | 2022-04-29 07:40 | XMS_ITS | Encounter Summary ---
:1980 Author Organization [facility] Address [address] [place] [address] Care Team Providers Name Role Phone Bonnie Franz M.D. Primary Care Provider [phone] Reason for Visit Reason Comments Annual Exam Establish Care Med Management Appointment Request (Routine) - Closed Specialty Diagnoses / Procedures Referred By Contact Refer red To Contact Family Medicine Referral ID Status Reason Start Date Expiration Date Visits Requ ested Visits Authorized [id number] Closed 08/26/2018 08/26/2019 1 Encounter Details Date Type Department Care Team Description 08/26/2018 Office Visit Department of Family Yuval Gutierrez rticulitis (Primary Medicine, Bonnie Davenport, Dx) Clinic, in [place] [address] [facility] [address] [phone] Social History Tobacco Use Types Packs/Day Years [...] do you attend mormonism or Never 2021 mandaeism services? 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 documented as of this encounter Last Filed Vital Signs Vital Sign Reading Time Taken Comments Blood Pressure 98/62 08/26/2018 1:24 PM COUNTER DISH CARRIER Pulse 84 08/26/2018 1:24 PM COUNTER DISH CARRIER Temperature 36.9 ??C (98.4 ??F) 08/26/2018 1:24 PM COUNTER DISH CARRIER Respiratory Rate 12 08/26/2018 1:24 PM COUNTER DISH CARRIER Oxygen Saturation - - Inhaled Oxygen Concentration - - Weight 89.8 kg (197 lb 13.8 oz) 08/26/2018 1:24 PM COUNTER DISH CARRIER Height 163 cm (5' 4.17) 08/26/2018 1:24 PM COUNTER DISH CARRIER Body Mass Index 33.78 08/26/2018 1:24 PM COUNTER DISH CARRIER documented in this encounter Progress Notes Bonnie [...] to face counseling and coordination of care. TER DISH CARRIER documented in this encounter Plan of Treatment Not on filedocumented as of this encounter Visit Diagnoses Diagnosis Diverticulitis - Primary documented in this encounter Care Teams Latin Dance Instructor Relationship Specialty Start Date End Date Bonnie Franz M.D. PCP - General Family Medicine 08/25/18 01/08/20 [address] [place] [phone] documented as of this encounter
--- OUTSIDE RECORDS SUMMARY | 2022-04-29 07:41 | XMS_ITS | Encounter Summary ---
:1980 Author Organization [facility] Address [address] [place] [address] Care Team Providers Name Role Phone Bonnie Franz M.D. Primary Care Provider [phone] Reason for Visit Reason Comments Med Refill Encounter Details Date Type Department Care Team Description 08/22/2018 Refill Department of Family Medicine, Simon Dykes Refill [facility], in Bonnie [place] M.D. [place] [id number] [address] [place] [address] [phone] Social History Tobacco Use Types Packs/Day Years [...] do you attend confucianist or Never 2021 nondenominational services? 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 PCP - General Family Medicine 08/25/18 01/08/[address] [address] documented as of this encounter
--- OUTSIDE RECORDS SUMMARY | 2022-04-29 07:41 | XMS_ITS | Encounter Summary ---
:1980 Author Organization [facility] Address [address] [place] [address] Care Team Providers Name Role Phone Qasim Meza P.A.-C. Primary Care Provider Encounter Details Date Type Department Care Team Description 07/23/2018 Clinical Communication Department of Internal [facility] in [place], [place] M.D. 0 [address] [place] [address] [place], [place] [phone] Social History Tobacco Use Types Packs/Day Years [...] do you attend mandaeism or Never 2021 yarsani services? 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 - 07/23/2018 1:16 PM STOCK SHEETS CLEANER INSPECTOR I forward this to Dr. rafaela arredondo because she saw her for this I have not seen her for quite some time K SHEETS CLEANER INSPECTOR Telephone Encounter - Gina Coronel CRafalMMaki - 07/23/2018 11:58 AM CST She has also sent a portal message this has been sent to you also K SHEETS CLEANER INSPECTOR Telephone Encounter - Jacklyn Costa - 07/23/2018 11:44 AM CST Reason for Communication: Patient states she is still having issues with hemorrhoids. She is wondering what the next step is. Current Can Nursing/Provider leave a detailed message: Yes Did the patient refuse triage through Nurse line? (for symptom based concerns) Action Needed: Call patient Name of Medication (if relevant): K SHEETS CLEANER INSPECTOR documented in this encounter Plan of Treatment Not on filedocumented as of this encounter Visit Diagnoses Not on filedocumented in this encounter Care Teams Learning Technologies Specialist Relationship Specialty Start Date End Date Qasim Meza P.A.-C. PCP - General 01/22/17 08/24/18 [address] [place] [address] documented as of this encounter
--- OUTSIDE RECORDS SUMMARY | 2022-04-29 07:41 | XMS_ITS | Encounter Summary ---
:1980 Author Organization [facility] Address [address] [place] [address] Care Team Providers Name Role Phone Qasim Meza P.A.-C. Primary Care Provider [phone] Reason for Visit Reason Comments Recurrent Skin Infections R upper leg right under butt ock Appointment Request (Routine) - Closed Specialty Diagnoses / Procedures Referred By Contact Refer red To Contact Family Medicine Referral ID Status Reason Start Date Expiration Date Visits Requ ested Visits Authorized [id number] Closed 06/15/2018 06/15/2019 1 Encounter Details Date Type Department Care Team Description 06/28/2018 Office Visit Department of Family Yuli Ecc hymosis (Primary Dx); Medicine, [facility]nie [facility], in [place] [address] [address] [phone] Social History Tobacco Use Types Packs/Day Years [...] do you attend christian or Never 2021 restorationism services? 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 The creation of this record is based on the scribe's personal observations and the provider's statements to them. This document has been ch ecked and approved by the attending provider. ETING SALES REPRESENTATIVE documented in this encounter Plan of Treatment Not on filedocumented as of this encounter Procedures Procedure Name Priority Date/Time Associated Comments Diagnosis PROTHROMBIN TIME Routine 06/28/2018 1:29 PM Ecchymosis Resul ts for this (PT), P MARKETING SALES REPRESENTATIVE procedure are i n the results section. CBC WITH Routine 06/28/2018 1:29 PM Ecchymosis Results f or this DIFFERENTIAL, B MARKETING SALES REPRESENTATIVE procedure ar e in the results section. documented in this encounter Results PT (Prothrombin Time) with INR (06/28/2018 1:29 PM MARKETING SALES REPRESENTATIVE) athologist Signature Prothrombin 9.2 8.8 - 11.9 06/28/2018 [facility] Time, P sec 3:58 PM [facility] INR 1.0 0.9 - 1.2 06/28/2018 [facility] 3:58 PM [facility] [facility] Comment: Standard intensity warfarin therapeutic range: 2.0 to 3.0 High intensity warfarin therapeutic rang e: 2.5 to 3.5 Specimen Anatomical Collection Method Collection Time Receive d Time (Source) Location / / Volume Laterality Blood (Blood, 06/28/2018 1:29 PM 06/28/20 18 3:25 Venous) MARKETING SALES REPRESENTATIVE PM MARKETING SALES REPRESENTATIVE Bonnie Franz M.D. LAB BLOOD ADD-ON Performing Organization Address City/State/ZIP Code Phon e Number [facility] [employer] [address] [place] [phone] LAB CBC with Differential, Blood (06/28/2018 1:29 PM MARKETING SALES REPRESENTATIVE) athologist Signature Hemoglobin 13.9 11.6 - 06/28/2018 [facility] 15.0 g/dL 2:04 PM [facility] Hematocrit 42.9 35.5 - 06/28/2018 [facility] 44.9 % 2:04 PM [facility] Erythrocytes 4.62 3.92 - 06/28/2018 [facility] 5.13 2:04 PM [facility] [employer] x10(12)/L [facility] [employer] LAB MCV 92.9 78.2 - 06/28/2018 [facility] 97.9 fL 2:04 PM [facility] RBC Distrib Width 12.6 12.2 - 06/28/2018 [facility] 16.1 % 2:04 PM [facility] Platelet Count 324 157 - 371 06/28/2018 [facility] x10(9)/L 2:04 PM [facility] Leukocytes 9.2 3.4 - 9.6 06/28/2018 [facility] x10(9)/L 2:04 PM MARKETING SALES REPRESENTATIVE [facility] Neutrophils 6.02 1.56 - 06/28/2018 [facility] 6.45 2:04 PM MARKETING SALES REPRESENTATIVE [facility] x10(9)/L [facility] [place] [facility] Lymphocytes 2.41 0.95 - 06/28/2018 [facility] 3.07 2:04 PM MARKETING SALES REPRESENTATIVE [facility]ALTH x10(9)/L [facility] Monocytes 0.61 0.26 - 06/28/2018 [facility] 0.81 2:04 PM MARKETING SALES REPRESENTATIVE HEALTH x10(9)/L [facility] Eosinophils 0.08 0.03 - 06/28/2018 [facility] 0.48 2:04 PM MARKETING SALES REPRESENTATIVE HEALTH x10(9)/L [facility] [place] [facility] Basophils 0.05 0.01 - 06/28/2018 [facility] 0.08 2:04 PM MARKETING SALES REPRESENTATIVE HEALTH x10(9)/L [facility] Specimen Anatomical Collection Method Collection Time Receive d Time (Source) Location / / Volume Laterality Blood (Blood, 06/28/2018 1:29 PM 06/28/20 18 1:30 Venous) MARKETING SALES REPRESENTATIVE PM MARKETING SALES REPRESENTATIVE Bonnie Franz M.D. LAB BLOOD ADD-ON Performing Organization Address City/State/ZIP Code Phon e Number [facility] [address] [place] [address] LAB documented in this encounter Visit Diagnoses Diagnosis Ecchymosis - Primary Furuncle Buttock documented in this encounter Care Teams Stick Feeder Relationship Specialty Start Date End Date Qasim Meza P.A.-C. PCP - General 01/22/17 08/24/18 [address] [place] [address] documented as of this encounter
--- OUTSIDE RECORDS SUMMARY | 2022-04-29 07:41 | XMS_ITS | Encounter Summary ---
:1980 Author Organization [facility] Address [address] [place] [address] Care Team Providers Name Role Phone Qasim Meza P.A.-C. Primary Care Provider [phone] Encounter Details Date Type Department Care Team Description 07/30/2018 Orders Only Department of Family Qasim Meza, Medicine, [facility], P.ARafal -CRafal in [facility] 225 [facility] [address] [place] [address] [place] [address] [phone] Social History Tobacco Use Types Packs/Day Years [...] do you attend jain or Never 2021 tenriism services? 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 PCP - General 01/22/17 08/24/18 [address] [place] [address] documented as of this encounter
--- OUTSIDE RECORDS SUMMARY | 2022-04-29 07:41 | XMS_ITS | Encounter Summary ---
:[address] [facility] Address [address] [place] [address] Care Team Providers Name Role Phone Qasim Meza P.A.-C. Primary Care Provider [phone] Reason for Visit Reason Comments Med Refill Encounter Details Date Type Department Care Team Description 06/05/2018 Refill [facility] Darrel Sawant [facility] Qasim Calderon P.A.-C. Med Refill Pharmacy [address] [place] [address] [place] [address] [phone] Social History Tobacco Use Types Packs/Day Years [...] do you attend scientology or Never 2021 sabianist services? 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 - 06/07/2018 4:50 PM CDT Left a message to please return our call. documented in this encounter Plan of Treatment Not on filedocumented as of this encounter Visit Diagnoses Not on filedocumented in this encounter Care Teams Paper Rewinder Relationship Specialty Start Date End Date Qasim Meza P.A.-C. PCP - General 01/22/17 08/24/18 [address] [place] [address] documented as of this encounter
--- OUTSIDE RECORDS SUMMARY | 2022-04-29 07:41 | XMS_ITS | Encounter Summary ---
:1980 Author Organization [facility] Address [address] [place] [address] Care Team Providers Name Role Phone Qasim Meza P.A.-C. Primary Care Provider [phone] Encounter Details Date Type Department Care Team Description 07/09/2018 Clinical Communication Department of [place] [facility], Medicine and D[facility] Rehabilitation in [address] [place] [address] Dr [place], [place], [place] 300 [facility] [address] [place] [phone] [address] (Work) [phone] Social History Tobacco Use Types Packs/Day Years [...] do you attend yazdanism or Never 2021 episcopalian services? Do you [...] at Date Recorded Female 09/01/2021 7:35 PM PRODUCT SUPPORT SALES REPRESENTATIVE documented as of this encounter Miscellaneous Notes Telephone Encounter - Lore Lemus - 07/09/2018 2:12 PM CST Reason for Communication: Return call Current Can Nursing/Provider leave a detailed message: Yes Action Needed: Patient returning call to Dr. James's nurse Name of Medication (if relevant): UCT SUPPORT SALES REPRESENTATIVE documented in this encounter Plan of Treatment Not on filedocumented as of this encounter Visit Diagnoses Not on filedocumented in this encounter Care Teams Count Team Member Relationship Specialty Start Date End Date Qasim Meza P.A.-C. PCP - General 01/22/17 08/24/[address] [place] [address] documented as of this encounter
--- OUTSIDE RECORDS SUMMARY | 2022-04-29 07:41 | XMS_ITS | Encounter Summary ---
:1980 Author Organization [facility] Address [address] [place] [address] Care Team Providers Name Role Phone Bonnie Franz M.D. Primary Care Provider [phone] Encounter Details Date Type Department Care Team Description 07/30/2018 Clinical Communication Department of [facility], in [address] [address] [place], [place] [phone] [address] (Work) [phone] Social History Tobacco Use Types Packs/Day Years [...] do you attend anabaptism or Never 2021 judaism services? 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 - 08/02/2018 8:51 AM CST It looks like Qasim took care of this, and she needs to follow through with her spine appointments. RAL RESOURCES TECHNICIAN Telephone Encounter - Maryam Shelton L.P.N. - 07/30/2018 5:10 PM NATURAL RESOURCES TECHNICIAN Patient notified of prescription sent to david avila RAL RESOURCES TECHNICIAN Telephone Encounter - Qasim Meza, Maco.A.-C. - 07/30/2018 5:03 PM NATURAL RESOURCES TECHNICIAN I will give her a small supply of tramadol to get her through to her upcoming appointments RAL RESOURCES TECHNICIAN Telephone Encounter - Susan Lawler L.PRafalN. - 07/30/2018 4:08 PM CST Spoke with pt's Amador, he states that pt has an appt with [facility] on 08/28/18 and has [...] to Dr Deleon to address on 08/02/18 RAL RESOURCES TECHNICIAN Telephone Encounter - Susan Lawler L.P.N. - 07/30/2018 4:00 PM CST Left message for patient to call back, discussed case with Steffany Gil, she recommends that pt discuss pain management medications with PCP or spine surgeon in [place] as recommended by Dr Deleon. RAL RESOURCES TECHNICIAN Telephone Encounter - Jane Khoury - 07/30/2018 2:32 PM CST Reason for Communication: pt called has been seeing dr. deleon for a shoulder injury and is requesting pain med. Current Can Nursing/Provider leave a detailed message: yes Did the patient refuse triage through Nurse line? (for symptom based concerns) Action Needed: please call back Name of Medication (if relevant): RAL RESOURCES TECHNICIAN documented in this encounter Plan of Treatment Not on filedocumented as of this encounter Visit Diagnoses Not on filedocumented in this encounter Care Teams Timber Cruiser Relationship Specialty Start Date End Date Bonnie Franz M.D. PCP - General Family Medicine 08/25/18 01/08/[address] [phone] documented as of this encounter
--- OUTSIDE RECORDS SUMMARY | 2022-04-29 07:41 | XMS_ITS | Encounter Summary ---
:1980 Author Organization [facility] Address [address] [place] [address] Care Team Providers Name Role Phone Qasim Meza P.A.-C. Primary Care Provider [phone] Encounter Details Date Type Department Care Team Description 08/11/2018 Clinical Communication Department of Qasim Gonzalez, Medicine, [place] [facility], in [address] [address] [place], [place] [phone] [address] (Work) [phone] Social History Tobacco Use Types Packs/Day Years [...] do you attend restoration or Never 2021 evangelical services? 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/2021 7:35 PM AUTOMATIC GRINDER OPERATOR documented as of this encounter Miscellaneous Notes Telephone Encounter - Alia John APRN, C.N.P. - 08/11/2018 2:48 PM AUTOMATIC GRINDER OPERATOR They are going to place a verbal order in [facility] for the next to rabies immunizations and I will go in and sign the orders. MATIC GRINDER OPERATOR Telephone Encounter - Alia John APRN, C.N.P. - 08/11/2018 2:33 PM AUTOMATIC GRINDER OPERATOR Yes, Basia please call [facility] pharmacy and asked them to [facility] likethey did with the 1st shot and I will sign it. MATIC GRINDER OPERATOR Telephone Encounter - Qasim Meza P.A.-C. - 08/11/2018 2:30 PM AUTOMATIC GRINDER OPERATOR Could you please take care of this since you saw her MATIC GRINDER OPERATOR Telephone Encounter - Miryam Vega - 08/11/2018 2:06 PM CST Reason for Communication: the pharmacy at [facility] called and said they need written orders for pt's rabies shots, she has her next one at 4:30 on the today Current Phone Number: fax [phone] Can Nursing/Provider leave a detailed message: na Did the patient refuse triage through Nurse line? (for symptom based concerns)na Action Needed: Please fax over an order for the pt for her rabies shot Name of Medication (if relevant): Rabies shot MATIC GRINDER OPERATOR documented in this encounter Plan of Treatment Not on filedocumented as of this encounter Visit Diagnoses Not on filedocumented in this encounter Care Teams Adventure Education Teacher Relationship Specialty Start Date End Date Qasim Meza P.A.-C. PCP - General 01/22/17 08/24/18 [address] [place] [phone] documented as of this encounter
--- OUTSIDE RECORDS SUMMARY | 2022-04-29 07:41 | XMS_ITS | Encounter Summary ---
:1980 Author Organization [facility] Address [address] [place] [address] Care Team Providers Name Role Phone Qasim Meza P.A.-C. Primary Care Provider [phone] Reason for Visit Reason Comments Med Refill Encounter Details Date Type Department Care Team Description 08/22/2018 Refill Department of Family Medicine, Qasim Ceja P.A.-C. Med Refill [facility], in [address] [place] [address] [place] [address] [place] [address] [phone] Social History Tobacco Use Types Packs/Day Years [...] do you attend jain or Never 2021 buddhism services? Do you [...] at Date Recorded Female 09/01/2021 7:35 PM DATA INPUT CLERK documented as of this encounter Miscellaneous Notes Telephone Encounter - Cyndi Zaidi L.P.N. - 08/23/2018 2:09 PM DATA INPUT CLERK SUBJECTIVE CHIEF COMPLAINT / REASON FOR CALL Med Refill Patient is requesting the following information: Refill requested PLAN The following information was provided : Notified Gricelda that Qasim filled them both Information: patient/caller able to repeat back in their own words The following references were used: none INPUT CLERK Telephone Encounter - Cyndi Zaidi L.PRafalN. - 08/23/2018 12:19 PM DATA INPUT CLERK These were both pended already and I asked if Gricelda could pick her [employer] up in [place] today and she said that she could if you filled it for her.... INPUT CLERK documented in this encounter Plan of Treatment Not on filedocumented as of this encounter Visit Diagnoses Not on filedocumented in this encounter Care Teams Electronics Processing Supervisor Relationship Specialty Start Date End Date Qasim Meza P.A.-C. PCP - General 01/22/17 08/24/18 [address] [place] [phone] documented as of this encounter
--- OUTSIDE RECORDS SUMMARY | 2022-04-29 07:41 | XMS_ITS | Encounter Summary ---
:1980 Author Organization [facility] Address [address] [place] [address] Care Team Providers Name Role Phone Qasim Meza P.A.-C. Primary Care Provider [phone] Encounter Details Date Type Department Care [...] do you attend restoration or Never 2021 sikhism services? Do you [...] Recorded Female 09/01/2021 7:35 PM INFORMATION SECURITY MANAGER documented as of this encounter Plan of Treatment Not on filedocumented as of this encounter Procedures Procedure Name Priority Date/Time Associated Diagnosis Comme nts PHYSICAL MEDICINE Routine 06/28/2018 11:40 AM Res ults for this AND REHAB IMAGE INFORMATION SECURITY MANAGER procedure ar e in EXAM the results section. documented in this encounter Results PHYSICAL MEDICINE AND REHAB IMAGE EXAM (06/28/2018 11:40 AM INFORMATION SECURITY MANAGER) Specimen (Source) Anatomical Collection Method Collection Time Re ceived Time Location / / Volume Laterality 06/28/2018 11:36 AM INFORMATION SECURITY MANAGER Narrative [facility] - 06/28/2018 12:40 PM INFORMATION SECURITY MANAGER This order has been created and [...] on filedocumented in this encounter Care Teams Biodiesel Plant Superintendent Relationship Specialty Start Date End Date Qasim Meza P.A.-C. PCP - General 01/22/17 08/24/18 [address] [place] [phone] documented as of this encounter
--- OUTSIDE RECORDS SUMMARY | 2022-04-29 07:41 | XMS_ITS | Encounter Summary ---
:1980 Author Organization [facility] Address [address] [place] [address] Care Team Providers Name Role Phone Qasim Meza P.A.-C. Primary Care Provider [phone] Reason for Referral Outpatient (Routine) - Closed Specialty Diagnoses / Referred By Contact Referred To Contact Procedures Physical Medicine and Diagnoses Impingement Syndrome Shoulder Left Jesus Deleon M.D. [facility] [address] [place] [address] Referral ID Status Reason Start Date Expiration Date Visits Requ ested Visits Authorized [id number] Closed 06/21/2018 06/21/2019 1 1 IE CLEANER Reason for Visit Reason Comments Pain Follow-up Outpatient (Routine) - Closed Specialty Diagnoses / Procedures Referred By Contact Refer red To Contact Orthopedic Surgery Jesus Deleon M.D. [facility] [address] [place] [address] Referral ID Status Reason Start Date Expiration Date Visits Requ ested Visits Authorized [id number] Closed 05/10/2018 05/10/2019 1 1 Encounter Details Date Type Department Care Team Description 06/21/2018 Office Visit Department of Jesus Deleon, Impingement Syndrome Orthopedic Surgery in [place] Shoulder Left (Primary [place], [place] [address], Dx) [address] [phone] Social History Tobacco Use Types Packs/Day Years [...] at Date Recorded Female 09/01/2021 7:35 PM CONNIE CLEANER documented as of this encounter Last Filed Vital Signs Vital Sign Reading Time Taken Comments Blood Pressure 104/60 06/21/2018 10:50 AM CONNIE CLEANER Pulse 72 06/21/2018 10:50 AM CONNIE CLEANER Temperature - - Respiratory Rate 20 06/21/2018 10:50 AM CONNIE CLEANER Oxygen Saturation - - Inhaled Oxygen Concentration - - Weight - - Height - - Body Mass Index - - documented in this encounter Progress Notes Jesus Deleon M.D. - 06/21/2018 10:45 AM CST Subjective: Patient is here for follow-up of left shoulder pain. She says the injection I gave her did not really help her very much. She has been going to physical therapy and her pain is somewhat improved. Her range of motion she feels is improved. Objective: Patient has tenderness most specifically over the anterior shoulder and biceps tendon sheath. Assessment: Residual pain and part probably related to biceps tendinitis. Plan: Patient be referred for consideration of ultrasound-guided injection of this area. IE CLEANER documented in this encounter Plan of Treatment Scheduled Referrals Name Type Priority Associated Order Schedule Diagnoses Physical Medicine and Outpatient Routine Impingement Expect ed: Rehabilitation - Referral Syndrome Shoulder 2017 General consult Left (Approximate ), (clinic) Expires: 06/21/2021 documented as of this encounter Visit Diagnoses Diagnosis Impingement Syndrome Shoulder Left - Amna srivastava documented in this encounter Care Teams Administrative Liaison Relationship Specialty Start Date End Date Qasim Meza P.A.-C. PCP - General 01/22/17 08/24/[address] [place] [phone] documented as of this encounter
--- OUTSIDE RECORDS SUMMARY | 2022-04-29 07:41 | XMS_ITS | Encounter Summary ---
:1980 Author Organization [facility] Address [address] [place] [address] Care Team Providers Name Role Phone Qasim Meza P.A.-C. Primary Care Provider [phone] Reason for Visit Reason Comments Other Was bit by a cat. Was seen a t ER on 08/01/18. Currently on antibiotic. Need written order and then will take to [facility] . Appointment Request (Routine) - Closed Specialty Diagnoses / Procedures Referred By Contact Refer red To Contact Family Medicine Referral ID Status Reason Start Date Expiration Date Visits Requ ested Visits Authorized [id number] Closed 08/04/2018 08/04/2019 1 Encounter Details Date Type Department Care Team Description 08/04/2018 Office Visit Department of Family Alia John Bit e Cat Hand Open Medicine, [place] Christina STEWART Subsequent Left Clinic, in [place], [address] (Primary Dx) [address] [address] [place], [place] [phone] (Work) [phone] Social History Tobacco Use Types Packs/Day Years [...] do you attend episcopalian or Never 2021 sikh services? Do you [...] at Date Recorded Female 09/01/2021 7:35 PM COTTON FACTOR documented as of this encounter Last Filed Vital Signs Vital Sign Reading Time Taken Comments Blood Pressure 116/84 08/04/2018 2:59 PM COTTON FACTOR Pulse 102 08/04/2018 2:59 PM COTTON FACTOR Temperature 36.7 ??C (98.1 ??F) 08/04/2018 2:59 PM COTTON FACTOR Respiratory Rate 16 08/04/2018 2:59 PM COTTON FACTOR Oxygen Saturation - - Inhaled Oxygen Concentration - - Weight 91.5 kg (201 lb 11.5 oz) 08/04/2018 2:59 PM COTTON FACTOR Height - - Body Mass Index 33.01 07/27/2018 3:41 PM COTTON FACTOR documented in this encounter Progress Notes Alia John, PAT, C.N.P. - 08/04/2018 3:15 PM CST SUBJECTIVE CHIEF COMPLAINT: Chief Complaint Patient presents with ??? Other Was bit by a cat. Was seen at ER on 08/01/18. Currently on antibiotic. Need written order and then will take to [facility] . HISTORY OF PRESENT ILLNESS: Gricelda is here with her . She states she was bitten on her left hand by a feral cat on July 31. She was seen at the [facility] emergency room. Wounds were cleaned and [...] Left She prefers to receive immunizations at [facility] rather than drive to [place], she lives in [place]. Call was placed to [facility] emergency room to schedule rabies immunizations as we do not have them here at the clinic. She will need to return to the emergency room for the 1st injection and then the rest will be scheduled at the [facility] in [place]. Continue acetaminophen 500 mg, 2 tablets every 4 hr as needed for pain. Recommend elevating left dee much as possible. HEALTH MAINTENANCE: Due for fasting lipids. ON FACTOR documented in this encounter Plan of Treatment Not on filedocumented as of this encounter Visit Diagnoses Diagnosis Bite Cat Hand Open Subsequent Left - Amna srivastava documented in this encounter Care Teams Dobby Loom Chain Pegger Relationship Specialty Start Date End Date Qasim Meza P.A.-C. PCP - General 01/22/17 08/24/[address] [place] [phone] documented as of this encounter
--- OUTSIDE RECORDS SUMMARY | 2022-04-29 07:41 | XMS_ITS | Encounter Summary ---
:1980 Author Organization [facility] Address [address] [place] [address] Care Team Providers Name Role Phone Qasim Meza P.A.-C. Primary Care Provider [phone] Reason for Visit Reason Comments Med Refill Encounter Details Date Type Department Care Team Description 06/22/2018 Refill Department of Family Medicine Qasim Davidson P.A.-C. Med Refill in [place], [place] 225 [facility] 225 [place] [address] [place] [address] [phone] Social History Tobacco Use Types Packs/Day Years [...] do you attend confucianism or Never 2021 evangelical services? 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 PCP - General 01/22/17 08/24/[address] [place] [phone] documented as of this encounter
--- OUTSIDE RECORDS SUMMARY | 2022-04-29 07:41 | XMS_ITS | Encounter Summary ---
:1980 Author Organization [facility] Address [address] [place] [address] Care Team Providers Name Role Phone Qasim Meza P.A.-C. Primary Care Provider [phone] Encounter Details Date Type Department Care Team Description 07/09/2018 Clinical Communication Department of Jesus Deleon, Orthopedic Surgery in [place], [place] [address] [facility], [address] [phone] Social History Tobacco [...] do you attend adventist or Never 2021 oriental orthodox services? Do [...] Date Recorded Female 09/01/2021 7:35 PM BATTERY TECHNICIAN documented as of this encounter Plan of Treatment Not on filedocumented as of this encounter Visit Diagnoses Not on filedocumented in this encounter Care Teams Trauma Director Relationship Specialty Start Date End Date Qasim Meza P.A.-C. PCP - General 01/22/17 08/24/[address] [place] [phone] documented as of this encounter
--- OUTSIDE RECORDS SUMMARY | 2022-04-29 07:41 | XMS_ITS | Encounter Summary ---
:1980 Author Organization [facility] Address [address] [place] [address] Care Team Providers Name Role Phone Bonnie Franz M.D. Primary Care Provider [phone] Reason for Visit Reason Onset Date Comments returning Nurse call 08/23/2018 Encounter Details Date Type Department Care Team Description 08/23/2018 Clinical Communication Department of mike Meza Nurse Family MedicineQasim, call [facility], PRafalAMansi in [address] [address] [place], [place] [phone] (Work) [phone] Social History Tobacco Use Types Packs/Day Years [...] do you attend scientologist or Never 2021 jew services? 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/2021 7:35 PM SCHOOL PSYCHOMETRIST documented as of this encounter Miscellaneous Notes Telephone Encounter - Cyndi Zaidi LRafalP.N. - 08/25/2018 8:18 AM SCHOOL PSYCHOMETRIST Notified that provider was changed as she requested and to call me back if she had any other concerns or questions OL PSYCHOMETRIST Telephone Encounter - Goldie Aguillon - 08/24/2018 3:32 PM CST Patient calling back [phone] Amador SANDERS on file OL PSYCHOMETRIST Telephone Encounter - Lore Lemus - 08/23/2018 12:58 PM CST Reason for Communication: Return call Current Phone Number: [phone] Can Nursing/Provider leave a detailed message: Yes Did the patient refuse triage through Nurse line? (for symptom based concerns)N/A Action Needed: Patient returning call to the nurse Name of Medication (if relevant): OL PSYCHOMETRIST documented in this encounter Plan of Treatment Not on filedocumented as of this encounter Visit Diagnoses Not on filedocumented in this encounter Care Teams Supervisor Newspaper Deliveries Relationship Specialty Start Date End Date Bonnie Franz M.D. PCP - General Family Medicine 08/25/18 01/08/[address] [place] [address] documented as of this encounter
--- OUTSIDE RECORDS SUMMARY | 2022-04-29 07:41 | XMS_ITS | Encounter Summary ---
:1980 Author Organization [facility] Address [address] [place] [address] Care Team Providers Name Role Phone Qasim Meza P.A.-C. Primary Care Provider [phone] Reason for Visit Reason Comments Pain Follow-up Encounter Details Date Type Department Care Team Description 07/13/2018 Office Visit Department of Lito [place]. [address] [place] [address] Impingement Syndrome Shoulder Left (Prim tabatha Dx); Orthopedic Surgery Jesus Deleon M.D. [address] [address] Radiculopathy Cervical Sixth in [place], [place] 300 [place] [phone] Social History Tobacco Use Types Packs/Day Years [...] do you attend gnosticism or Never 2021 anabaptism services? 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/2021 7:35 PM ORACLE ADF DEVELOPER documented as of this encounter Last Filed Vital Signs Vital Sign Reading Time Taken Comments Blood Pressure 120/70 07/13/2018 1:11 PM ORACLE ADF DEVELOPER Pulse 72 07/13/2018 1:11 PM ORACLE ADF DEVELOPER Temperature - - Respiratory Rate 20 07/13/2018 1:11 PM ORACLE ADF DEVELOPER Oxygen Saturation - - Inhaled Oxygen [...] Plan: Recommended that she see physicians in [place] who had originally evaluated her for her cervicalspine condition. She will follow up here as needed. LE ADF DEVELOPER documented in this encounter Plan of Treatment Not on filedocumented as of this encounter Visit Diagnoses Diagnosis Impingement Syndrome Shoulder Left - Amna atif Radiculopathy Cervical Sixth documented in this encounter Care Teams Elementary Ell Teacher Relationship Specialty Start Date End Date Qasim Meza P.A.-C. PCP - General 01/22/17 08/24/[address] [place] [phone] documented as of this encounter
--- OUTSIDE RECORDS SUMMARY | 2022-04-29 07:41 | XMS_ITS | Encounter Summary ---
:1980 Author Organization [facility] Address [address] [place] [address] Care Team Providers Name Role Phone Qasim Meza P.A.-C. Primary Care Provider [phone] Reason for Visit Reason Comments Med Refill Encounter Details Date Type Department Care Team Description 07/13/2018 Refill Department of Family Medicine, Qasim Ceja P.A.-C. Med Refill [facility], in [address] [place] [phone] [place] [address] [place] [address] [phone] Social History Tobacco Use Types Packs/Day Years [...] do you attend pentecostal or Never 2021 rastafarian services? 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 - 07/14/2018 9:25 AM CST Left message for patient to return our call OR PRODUCT DESIGNER documented in this encounter Plan of Treatment Not on filedocumented as of this encounter Visit Diagnoses Not on filedocumented in this encounter Care Teams Walking Dragline Oiler Relationship Specialty Start Date End Date Qasim Meza P.A.-C. PCP - General 01/22/17 08/24/18 [address] [place] [phone] documented as of this encounter
--- OUTSIDE RECORDS SUMMARY | 2022-04-29 07:41 | XMS_ITS | Encounter Summary ---
:1980 Author Organization [facility] Address [address] [place] [address] Care Team Providers Name Role Phone Qasim Meza P.A.-C. Primary Care Provider [phone] Reason for Visit Reason Comments Med Refill Encounter Details Date Type Department Care Team Description 08/23/2018 Refill Department of Family Medicine, Cyndi Lugo LRafalP.NRafal Med Refill [facility], in [address] [place] [address] [place] [address] [place] [address] Social History Tobacco Use [...] do you attend temple or Never 2021 yazdanism services? Do you [...] at Date Recorded Female 09/01/2021 7:35 PM PROGRESSIVE CARE NURSE documented as of this encounter Miscellaneous Notes Telephone Encounter - Melia Cason - 08/23/2018 12:29 PM CST Reason for Communication: returning call to Cyndi Current Phone Number: listed Can Nursing/Provider leave a detailed message: na Did the patient refuse triage through Nurse line? (for symptom based concerns)na Action Needed: phone call Name of Medication (if relevant):unknown RESSIVE CARE NURSE documented in this encounter Plan of Treatment Not on filedocumented as of this encounter Visit Diagnoses Not on filedocumented in this encounter Care Teams Driver Examiner Relationship Specialty Start Date End Date Qasim Meza P.A.-C. PCP - General 01/22/17 08/24/18 [address] [place] [address] documented as of this encounter
--- OUTSIDE RECORDS SUMMARY | 2022-04-29 07:41 | XMS_ITS | Encounter Summary ---
:1980 Author Organization [facility] Address [address] [place] [address] Care Team Providers Name Role Phone Qasim Meza P.A.-C. Primary Care Provider [phone] Reason for Visit Reason Comments Hemorrhoids referred by Dr. Durán; very painful and bleeding Encounter Details Date Type Department Care Team Description 07/27/2018 Comprehensive Visit Department of Bruce Hodgson, Hemo rrhoids External Thrombosed (Primary Dx); General Surgery in [place].D. Bleeding Rectal [place], [address] [place] [address] [place], [place] [phone] (Work) [phone] Social History Tobacco Use Types Packs/Day Years [...] do you attend scientologist or Never 2021 denominational services? 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 documented as of this encounter Last Filed Vital Signs Vital Sign Reading Time Taken Comments Blood Pressure 122/74 07/27/2018 3:41 PM SHOT PACKER Pulse 70 07/27/2018 3:41 PM SHOT PACKER Temperature 37 ??C (98.6 ??F) 07/27/2018 3:41 PM SHOT PACKER Respiratory Rate 14 07/27/2018 3:41 PM SHOT PACKER Oxygen Saturation - - Inhaled Oxygen Concentration - - Weight 90.5 kg (199 lb 8.3 oz) 07/27/2018 3:41 PM SHOT PACKER Height 166.5 cm (5' 5.55) 07/27/2018 3:41 PM SHOT PACKER Body Mass Index 32.65 07/27/2018 3:41 PM SHOT PACKER documented in this encounter Consult Notes Bruce [...] Bruises/bleeds easily: Yes No urinary/reproductive issues: Yes PACKER documented in this encounter Plan of Treatment Not on filedocumented as of this encounter Visit Diagnoses Diagnosis Hemorrhoids External Thrombosed - Primar y Bleeding Rectal documented in this encounter Care Teams Aircraft Worker Relationship Specialty Start Date End Date Qasim Meza P.A.-C. PCP - General 01/22/17 08/24/18 [address] [place] [phone] documented as of this encounter
--- OUTSIDE RECORDS SUMMARY | 2022-04-29 07:41 | XMS_ITS | Encounter Summary ---
:1980 Author Organization [facility] Address [address] [place] [address] Care Team Providers Name Role Phone Qasim Meza P.A.-C. Primary Care Provider [phone] Reason for Visit Reason Onset Date Comments rabies shot 08/04/2018 Encounter Details Date Type Department Care Team Description 08/04/2018 Clinical Communication [facility] [place] [address] [address] [phone] Social History Tobacco Use Types Packs/Day Years [...] do you attend restoration or Never 2021 alevism services? 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 - 08/04/2018 12:23 PM HYDRO SPRAYER OPERATOR Called patient's to check if he had questions on the rabies vaccine. His will be in today to see shanon to hopefully get an order for Lamar to give the rabies vaccine. O SPRAYER OPERATOR Telephone Encounter - Cosme De La Cruz [...] Rabies shot Name of Medication (if relevant): O SPRAYER OPERATOR documented in this encounter Plan of Treatment Not on filedocumented as of this encounter Visit Diagnoses Not on filedocumented in this encounter Care Teams Ice Resurfacing Machine Operators Relationship Specialty Start Date End Date Qasim Meza P.A.-C. PCP - General 01/22/17 08/24/[address] [place] [phone] documented as of this encounter
--- OUTSIDE RECORDS SUMMARY | 2022-04-29 07:41 | XMS_ITS | Encounter Summary ---
:1980 Author Organization [facility] Address [address] [place] [address] Care Team Providers Name Role Phone Qasim Meza P.A.-C. Primary Care Provider [phone] Reason for Visit Reason Comments Med Refill Encounter Details Date Type Department Care Team Description 06/08/2018 Refill Department of Sports Medicine Kenrick Mendoza M.D. Med Refill in [facility] [address], [address] [place], [place] [phone] [place], [place] [phone] (Wo rk) Social History Tobacco Use Types [...] do you attend hinduism or Never 2021 confucianism services? 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 PCP - General 01/22/17 08/24/[address] [place] [phone] documented as of this encounter
--- OUTSIDE RECORDS SUMMARY | 2022-04-29 07:41 | XMS_ITS | Encounter Summary ---
:[address] [facility] Address [address] [place] [address] Care Team Providers Name Role Phone Qasim Meza P.A.-C. Primary Care Provider [phone] Encounter Details Date Type Department Care Team Description 05/17/2018 Clinical Communication Department of Qasim Gonzalez, [place], [place] [facility], in [address] [address] [place], [place] [phone] (Work) [phone] Social History Tobacco Use Types Packs/Day Years [...] do you attend scientology or Never 2021 latter day services? 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 PCP - General 01/22/17 08/24/[address] [place] [phone] documented as of this encounter
--- OUTSIDE RECORDS SUMMARY | 2022-04-29 07:41 | XMS_ITS | Encounter Summary ---
:1980 Author Organization [facility] Address [address] [place] [address] Care Team Providers Name Role Phone Qasim Meza P.A.-C. 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 PCP - General 01/22/17 08/24/[address] [place] [phone] documented as of this encounter
--- OUTSIDE RECORDS SUMMARY | 2022-04-29 07:41 | XMS_ITS | Encounter Summary ---
:1980 Author Organization [facility] Address [address] [place] [address] Care Team Providers Name Role Phone Qasim Meza P.A.-C. Primary Care Provider [phone] Reason for Visit Reason Comments Cough X3 days Appointment Request (Routine) - Closed Specialty Diagnoses / Procedures Referred By Contact Refer red To Contact Family Medicine Referral ID Status Reason Start Date Expiration Date Visits Requ ested Visits Authorized [id number] Closed 05/17/2018 05/17/2019 1 Encounter Details Date Type Department Care Team Description 05/17/2018 Office Visit Department of Family Yuli Sin usitis (Primary Dx) Medicine, Bonnie Lauren, [place], in [place] [address] [phone] Social History Tobacco Use Types Packs/Day Years [...] you attend jehovah's witness or Never 2021 baptist services? 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 The creation of this record is based on the scribe's personal observations and the provider's statements to them. This document has been ch ecked and approved by the attending provider. documented in this encounter Plan of Treatment Not on filedocumented as of this encounter Visit Diagnoses Diagnosis Sinusitis - Primary documented in this encounter Care Teams Psychology Professor Relationship Specialty Start Date End Date Qasim Meza P.A.-C. PCP - General 01/22/17 08/24/18 [address] [place] [address] documented as of this encounter
--- OUTSIDE RECORDS SUMMARY | 2022-04-29 07:41 | XMS_ITS | Encounter Summary ---
:1980 Author Organization [facility] Address [address] [place] [address] Care Team Providers Name Role Phone Qasim Meza P.A.-C. Primary Care Provider [phone] Reason for Referral Outpatient (Routine) - Closed Specialty Diagnoses / Procedures Referred By Contact Refer red To Contact Diagnoses Pain Shoulder Left Lito James D.O. [facility] Region Procedures PMR Peripheral injection/USGI (Procedure Only) [address] [place] [id number] Referral ID Status Reason Start Date Expiration Date Visits Requ ested Visits Authorized [id number] Closed 06/28/2018 06/28/2019 1 0 AND SCIENTIST Reason for Visit Reason Comments Shoulder Pain Outpatient (Routine) - Closed Specialty Diagnoses / Referred By Contact Referred To Contact Procedures Physical Medicine and Diagnoses Impingement Syndrome Shoulder Left Jesus Deleon M.D. [facility] [address] [address] Referral ID Status Reason Start Date Expiration Date Visits Requ ested Visits Authorized [id number] Closed 06/21/2018 06/21/2019 1 1 Encounter Details Date Type Department Care Team Description 06/28/2018 Comprehensive Visit Department of Lito James Pain S [facility] Left Physical Medicine [place]. [place] [address] [place], [place] [phone] Social History Tobacco Use Types Packs/Day Years [...] do you attend muslim or Never 2021 anabaptism services? 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 - 06/28/2018 11:30 AM CST AND SCIENTIST documented in this encounter Procedure Notes Lito James D.O. - 06/28/2018 11:30 AM CSTAssociated Order(s): PMR PERIPHERAL INJECTION/USGI (PROCEDURE ONLY) Post-Procedure Diagnose(s): Pain Shoulder Left Peripheral injection/aspiration/USGI (Procedure Only) Date/Time: 06/28/2018 12:25 PM Performed by: LITO JAMES Authorized by: LITO JAMES Gasfitter utilized: jewelry drill operator not needed Risks discussed with: parent Procedural [...] this note. Images have been archived in MyLikes: click the 'Dept Filter' button in MyLikes,then the 'Clear (Show All)' button, then OK. [...] and 4/10 post-procedure. Lito James DO, CAQSM Senior Housekeeper Communications Technologist Physical Medicine & Rehabilitation AND SCIENTIST documented in this encounter Plan of Treatment Not on filedocumented as of this encounter Procedures Procedure Name Priority Date/Time Associated Diagnosis Comme nts MA US GUIDE PLC NDL Routine 06/28/2018 11:30 AM Pain Shoulder Left Results for this WETLAND SCIENTIST procedure are i n the results section. MA INJ SNGL Routine 06/28/2018 11:30 AM Pain Shoulder Left Re sults for this TNDN/SHTH/LGMNT WETLAND SCIENTIST procedure ar e in the results section. documented in this encounter Results MA INJ SNGL TNDN/SHTH/LGMNT, MA US GUIDE PLC NDL (06/28/2018 11:30 AM WETLAND SCIENTIST) Narrative MMODAL - 06/28/2018 11:30 AM WETLAND SCIENTIST Lito James D.O. ? 06/28/2018 12:32 PM Peripheral injection/aspiration/USGI (Pr ocedure Only) Date/Time: 06/28/2018 12:25 PM Performed by: LITO JAMES Authorized by: LITO JAMES Gasfitter utilized: jewelry drill operator not ne eded ?? Risks discussed with: [...] note. Images h ave been archived in MyLikes: click the 'Dept Filter' button in MyLikes, then the 'Clear (Show All)' button, then [...] (1 %) injection Given 06/28/2018 12:25 PM WETLAND SCIENTIST 1 mL 1 mL (XYLOCAINE) 1 mL, infiltration, One-Time, Starting on Thu06/28/18 at 1225, For 1 dose methylPREDNISolone acetate injection 40 mg Given 06/28/2018 12:2 5 PM WETLAND SCIENTIST 40 mg (DEPO-Medrol) 40 mg, intra-articular, One-Time, Starting on Thu06/28/18 at 1225, For 1 dose documented in this encounter Care Teams Consulting It Architect Relationship Specialty Start Date End Date Qasim Meza P.A.-C. PCP - General 01/22/17 08/24/18 [address] [place] [address] documented as of this encounter
--- OUTSIDE RECORDS SUMMARY | 2022-04-29 07:41 | XMS_ITS | Encounter Summary ---
:1980 Author Organization [facility] Address [address] [place] [address] Care Team Providers Name Role Phone Bonnie Franz M.D. Primary Care Provider + [phone] Encounter Details Date Type Department Care Team Description 07/30/2018 Clinical Communication Department of Family [place] Ndiaye [facility], Bonnie Lauren, [facility], in Ana Blackwell [address] [place] [address] [phone] Social History Tobacco Use Types Packs/Day Years [...] do you attend mandaen or Never 2021 rastafarian services? 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 Deleon's nurse about L shoulder pain and she suggested sending Dr. Magdaleno about ordering a pain medication Current Phone Number: Can Nursing/Provider leave a detailed message: yes Did the patient refuse triage through Nurse line? (for symptom based concerns) Action Needed: Please return call Name of Medication (if relevant): RVISOR TELEPHONE INFORMATION documented in this encounter Plan of Treatment Not on filedocumented as of this encounter Visit Diagnoses Not on filedocumented in this encounter Care Teams Drilling Field Specialist Relationship Specialty Start Date End Date Bonnie Franz M.D. PCP - General Family Medicine 08/25/18 01/08/[address] [address] documented as of this encounter
--- OUTSIDE RECORDS SUMMARY | 2022-04-29 07:41 | XMS_ITS | Encounter Summary ---
:1980 Author Organization [facility] Address [address] [place] [address] Care Team Providers Name Role Phone Bonnie Franz M.D. Primary Care Provider + [phone] Encounter Details Date Type Department Care Team Description 08/04/2018 Clinical Communication Department of [facility], [facility], in [address] [address] [place], [place] [phone] (Work) [phone] Social History Tobacco Use Types Packs/Day Years [...] do you attend pentecostal or Never 2021 judaism services? 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 - 08/04/2018 4:33 PM CST Provider contacted ED OR INSPECTOR Telephone Encounter - Shyann Landry R.N. - 08/04/2018 3:58 PM CST Please see below - I know she had appt to see you today OR INSPECTOR Telephone Encounter - Miryam Vega - 08/04/2018 [...] and advise. Name of Medication (if relevant):na OR INSPECTOR documented in this encounter Plan of Treatment Not on filedocumented as of this encounter Visit Diagnoses Not on filedocumented in this encounter Care Teams Children'S Attendant Relationship Specialty Start Date End Date Bonnie Franz M.D. PCP - General Family Medicine 08/25/18 01/08/[address] [address] documented as of this encounter
--- OUTSIDE RECORDS SUMMARY | 2022-04-29 07:41 | XMS_ITS | Encounter Summary ---
:1980 Author Organization [facility] Address [address] [place] [address] Care Team Providers Name Role Phone Qasim Meza P.A.-C. Primary Care Provider Encounter Details Date Type Department Care Team Description 07/09/2018 Clinical Communication Department of Qasim Gonzalez, Medicine, [place] [facility], in [address] [address] [place], [place] [phone] (Work) [phone] Social History Tobacco Use Types Packs/Day Years [...] do you attend druze or Never 2021 sabianist services? 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 PCP - General 01/22/17 08/24/[address] [place] [phone] documented as of this encounter
--- OUTSIDE RECORDS SUMMARY | 2022-04-29 07:41 | XMS_ITS | Encounter Summary ---
:1980 Author Organization [facility] Address [address] [place] [address] Care Team Providers Name Role Phone Qasim Meza P.A.-C. Primary Care Provider [phone] Encounter Details Date Type Department Care Team Description 07/09/2018 Orders Only Department of Orthopedic Leonora Gil, [facility] [address] [place] [address] [place] [address] [facility] [phone] Social History Tobacco Use Types Packs/Day Years [...] do you attend presybeterian or Never 2021 confucianism services? 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 PCP - General 01/22/17 08/24/18 [address] [place] [address] documented as of this encounter
--- OUTSIDE RECORDS SUMMARY | 2022-04-29 07:41 | XMS_ITS | Encounter Summary ---
:1980 Author Organization [facility] Address [address] [place] [address] Care Team Providers Name Role Phone Qasim Meza P.A.-C. Primary Care Provider [phone] Reason for Visit Reason Onset Date Comments injection pain 07/09/2018 Medication for pain 07/09/2018 Encounter Details Date Type Department Care Team Description 07/09/2018 Clinical Department of Lito James, jolynn webster n; Communication Physical Medicine and D.O. Medication for Rehabilitation in [address] [place] [address] [address] [place] [phone] [phone] Social History Tobacco Use Types Packs/Day Years [...] do you attend zoroastrianism or Never 2021 confucianist services? 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 - 07/09/2018 4:37 PM CST Called pt and notified her that written rx for [place] was ready for pickup at [facility] info desk, pt states that she will try to get her before 5pm to pick this up herself CH POLISHER Telephone Encounter - Steffany Gil P.A.-C. - 07/09/2018 4:19 PM FRENCH POLISHER Weyanoke rx printed CH POLISHER Telephone Encounter - Susan Lawler L.P.N. - 07/09/2018 4:11 PM CST Called pt, and informed her of Lisandra's concerns, pt states that she has taken Vicodin and Flexeril before with no problems with her Keppra CH POLISHER Telephone Encounter - Steffany Gil P.A.-C. - 07/09/2018 4:06 PM FRENCH POLISHER Is the pain medication she has taken in the past him sorry that has not interacted with her Keppra medication? CH POLISHER Telephone Encounter - Susan Lawler L.P.N. - [...] shescheduled for Thursday07-12-18, please review and advise CH POLISHER Telephone Encounter - Rosalba Gray - 07/09/2018 3:43 PM CST Reason for Communication: Medication for pain Current Can Nursing/Provider leave a detailed message: Yes Action Needed: Amador () calling in for patient and wondering if Dr. Deleon is able to give patient some medication for her pain that she is having. [facility]acy is [facility] in [place]. Please adviseand call back. Name of Medication (if relevant): n/a CH POLISHER Telephone Encounter - Vero Metzger L.P.N. - 07/09/2018 3:20 PM FRENCH POLISHER Information and recommendations given to patient. Patient will schedule a follow up visit with Dr. Deleon. CH POLISHER Telephone Encounter - Jacklyn Costa - 07/09/2018 2:54 PM CST Patients called back. Please call [phone] CH POLISHER Telephone Encounter - Vero Metzger L.P.N. - 07/09/2018 1:57 PM FRENCH POLISHER Message left for patient to return my call. CH POLISHER Telephone Encounter - Lito James D.O. - [...] Deleon would like. Lito James DO, CAM Pile Header Assistant Professor Of Criminal Justice Physical Medicine & Rehabilitation CH POLISHER Telephone Encounter - Cosme De La Cruz - 07/09/2018 1:08 PM CST Reason for Communication: Pt is having worse pain than before her injection last week. Wondering about next step or something else she should be doing Current Can Nursing/Provider leave a detailed message: yes Action Needed: please call back Name of Medication (if relevant): CH POLISHER documented in this encounter Plan of Treatment Not on filedocumented as of this encounter Visit Diagnoses Not on filedocumented in this encounter Care Teams Mr Teacher Relationship Specialty Start Date End Date Qasim Meza P.A.-C. PCP - General 01/22/17 08/24/[address] [place] [phone] documented as of this encounter
--- OUTSIDE RECORDS SUMMARY | 2022-04-29 07:41 | XMS_ITS | Encounter Summary ---
:1980 Author Organization [facility] Address [address] [place] [address] Care Team Providers Name Role Phone Qasim Meza P.A.-C. Primary Care Provider [phone] Reason for Visit Reason Onset Date Comments followup injection 05/17/2018 Encounter Details Date Type Department Care Team Description 05/17/2018 Clinical Communication Department of Jesus Deleon fo llowup injection Orthopedic Surgery MBob in [address] [place] [phone] [phone] Social History Tobacco Use Types Packs/Day Years [...] do you attend moravian or Never 2021 rastafari services? 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 Please call at: [phone] Telephone Encounter - Susan Lawler L.P.N. - 05/17/2018 12:58 PM CDT Left message for patient to call back Telephone Encounter - Keturah Rockwell - 05/17/2018 12:34 PM CDT Amador () returned call - Please call [phone] to reach Gricelda Telephone Encounter - Susan Lwaler L.P.N. - 05/17/2018 8:57 AM CDT Left message for patient to call back for followup of left shoulder injection done on 05/10/[address] Deleon documented in this encounter Plan of Treatment Not on filedocumented as of this encounter Visit Diagnoses Not on filedocumented in this encounter Care Teams Journeyman Apprentice Electricians Relationship Specialty Start Date End Date Qasim Meza P.A.-C. PCP - General 01/22/17 08/24/[address] [place] [phone] documented as of this encounter
--- OUTSIDE RECORDS SUMMARY | 2022-04-29 07:41 | XMS_ITS | Encounter Summary ---
:1980 Author Organization [facility] Address [address] [place] [address] Care Team Providers Name Role Phone Qasim Meza P.A.-C. Primary Care Provider [phone] Reason for Referral Outpatient (Routine) - Closed Specialty Diagnoses / Procedures Referred By Contact Refer red To Contact Orthopedic Surgery Luciano De[facility]on M.D. [facility] Region [address] [place] [address] Referral ID Status Reason Start Date Expiration Date Visits Requ ested Visits Authorized [id number] Closed 05/10/2018 05/10/2019 1 1 utpatient (Routine) - Closed Specialty Diagnoses / Procedures Referred By Contact Refer red To Contact Diagnoses Impingement Syndrome Shoulder Left Luciano Deleon M.D. [facility] Region Procedures Large Joint Injection [address], [address] [place] [address] Referral ID Status Reason Start Date Expiration Date Visits Requ ested Visits Authorized [id number] Closed 05/10/2018 05/10/2019 1 0 Reason for Visit Reason Comments Pain Appointment Request (Routine) - Closed Specialty Diagnoses / Procedures Referred By Contact Refer red To Contact Orthopedic Surgery Referral ID Status Reason Start Date Expiration Date Visits Requ ested Visits Authorized [id number] Closed 05/06/2018 05/06/2019 1 1 Encounter Details Date Type Department Care Team Description 05/10/2018 Office Visit Department of Luciano Deleon, Impingement Syndrome Orthopedic Surgery in M.D. Shoulder Left (Primary [place], [place] [address], [place]) [address] [place] [address] [phone] Social History Tobacco Use Types Packs/Day Years [...] do you attend sabianist or Never 2021 taoist services? 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 documented in this encounter Results TN ARTHCS ASP/INJ MJR JT WO US (05/10/2018 11:00 AM CDT) Narrative MMODAL - 05/10/2018 11:00 AM CDT Luciano Deleon M.D. ? 05/10/2018 11:07 AM Bhd-mmxl-azfclcky-elbow arthrocentesis Date/Time: 05/10/2018 10:49 AM Performed by: LUCIANO DELEON Authorized by: LUCIANO DELEON [employer] utilized: ict business analyst not ne eded ?? Risks discussed with: [...] dose documented in this encounter Care Teams Marketing Performance Analyst Relationship Specialty Start Date End Date Qasim Meza P.A.-C. PCP - General 01/22/17 08/24/18 [address] [place] [phone] documented as of this encounter
--- OUTSIDE RECORDS SUMMARY | 2022-04-29 07:42 | XMS_ITS | Encounter Summary ---
:1980 Author Organization [facility] Address [address] [place] [address] Care Team Providers Name Role Phone Qasim Meza P.A.-C. Primary Care Provider [phone] Reason for Visit Reason Comments Med Refill Encounter Details Date Type Department Care Team Description 02/08/2018 Refill Department of Family Medicine, Qasim Ceja P.A.-C. Med Refill [facility], in [address] [place] [phone] [place] [address] [place] [address] [phone] Social History Tobacco Use Types Packs/Day Years [...] do you attend muslim or Never 2021 latter-day services? 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 PCP - General 01/22/17 08/24/[address] [place] [phone] documented as of this encounter
--- OUTSIDE RECORDS SUMMARY | 2022-04-29 07:42 | XMS_ITS | Encounter Summary ---
:1980 Author Organization [facility] Address [address] [place] [address] Care Team Providers Name Role Phone Qasim Meza P.A.-C. Primary Care Provider [phone] Reason for Visit Reason Comments Med Refill Encounter Details Date Type Department Care Team Description 09/14/2017 Refill Department of Family Medicine, Qasim Ceja P.A.-C. Med Refill [facility], in [address] [place] [phone] [place] [address] [place] [address] [phone] Social History Tobacco Use Types Packs/Day Years [...] do you attend latter-day or Never 2021 jewish services? 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 documented as of this encounter Miscellaneous Notes Telephone Encounter - Lauren Sidhu - 09/14/2017 3:14 PM CST Nurse Review: Pharmacy Communication Provider: Qasim Meza Medication: B12 Injection syringe Pharmacy Comment: Patient would like a 1 ml syringe SHAPER SET UP OPERATOR documented in this encounter Plan of Treatment Not on filedocumented as of this encounter Visit Diagnoses Not on filedocumented in this encounter Additional Health Concerns Assessment Noted Time PHQ-9 Depression Total Score: 8 06/12/2016 10:45 AM CD T documented as of this encounter Care Teams Carton Wrapper Relationship Specialty Start Date End Date Qasim Meza P.A.-C. PCP - General 01/22/17 08/24/[address] [place] [phone] documented as of this encounter
--- OUTSIDE RECORDS SUMMARY | 2022-04-29 07:42 | XMS_ITS | Encounter Summary ---
:1980 Author Organization [facility] Address [address] [place] [address] Care Team Providers Name Role Phone Qasim Meza P.A.-C. 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 (SPECIFY IN RAIL CAR LOADER) Ordering Provider External M.D. HEALTH MAINTENANCE Performing Organization Address City/State/ZIP Code Phon e Number OTHER (SPECIFY IN RAIL CAR LOADER) HM PAP SMEAR (03/29/2012) AccuRev gist Method Time Signature HM Pap smear See scanned OTHER report. (SPECIFY IN RAIL CAR LOADER) Ordering Provider External M.D. HEALTH MAINTENANCE Performing Organization Address City/State/ZIP Code Phon e Number OTHER (SPECIFY IN RAIL CAR LOADER) documented in this encounter Visit Diagnoses Not on filedocumented in this encounter Additional Health Concerns Assessment Noted Time PHQ-9 Depression Total Score: 8 06/12/2016 10:45 AM CD T documented as of this encounter Care Teams Information Security Specialist Relationship Specialty Start Date End Date Qasim Meza P.A.-C. PCP - General 01/22/17 08/24/[address] [place] [phone] documented as of this encounter
--- OUTSIDE RECORDS SUMMARY | 2022-04-29 07:42 | XMS_ITS | Encounter Summary ---
:1980 Author Organization [facility] Address [address] [place] [address] Care Team Providers Name Role Phone Qasim Meza P.A.-C. 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 PCP - General 01/22/17 08/24/[address] [place] [phone] documented as of this encounter
--- OUTSIDE RECORDS SUMMARY | 2022-04-29 07:42 | XMS_ITS | Encounter Summary ---
:1980 Author Organization [facility] Address [address] [place] [address] Care Team Providers Name Role Phone Qasim Meza P.A.-C. Primary Care Provider [phone] Reason for Visit Reason Comments Hemorrhoids not responding to otc medica tion x 2 weeks Appointment Request (Routine) - Closed Specialty Diagnoses / Procedures Referred By Contact Refer red To Contact Family Medicine Referral ID Status Reason Start Date Expiration Date Visits Requ ested Visits Authorized [id number] Closed 04/27/2018 04/27/2019 1 Encounter Details Date Type Department Care Team Description 04/27/2018 Office Visit Department of Family Yuli Rhodes orrhoids (Primary Medicine, Bonnie Lauren, [place]) Clinic, in [place] [address] [facility] [address] [phone] Social History Tobacco Use Types Packs/Day Years [...] do you attend buddhist or Never 2021 shinto services? 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 She has been using some rkyl-kxj-dfqdgsf wipes in creams without any benefit. She [...] Primary documented in this encounter Care Teams Content Engineer Relationship Specialty Start Date End Date Qasim Meza P.A.-C. PCP - General 01/22/17 08/24/[address] [place] [phone] documented as of this encounter
--- OUTSIDE RECORDS SUMMARY | 2022-04-29 07:42 | XMS_ITS | Encounter Summary ---
:1980 Author Organization [facility] Address [address] [place] [address] Care Team Providers Name Role Phone Qasim Meza P.A.-C. Primary Care Provider [phone] Encounter Details Date Type Department Care [...] do you attend mandaeism or Never 2021 latter day services? 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 PCP - General 01/22/17 08/24/[address] [place] [phone] documented as of this encounter
--- OUTSIDE RECORDS SUMMARY | 2022-04-29 07:42 | XMS_ITS | Encounter Summary ---
:1980 Author Organization [facility] Address [address] [place] [address] Care Team Providers Name Role Phone Qasim Meza P.A.-CRafal Primary Care Provider [phone] Encounter Details Date Type Department Care Team Description 11/26/2017 Orders Only [facility], Epileps y Seizure Not [facility] P.[facility].-C. Intractable Without [address] Status Epilepticus DILIA BACK [place], [place] ([facility]) [phone] Social History Tobacco Use Types Packs/Day Years [...] do you attend adventist or Never 2021 sabianism services? 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 PCP - General 01/22/17 08/24/[address] [place] [phone] documented as of this encounter
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
--- OUTSIDE RECORDS SUMMARY | 2022-04-29 07:42 | XMS_ITS | Encounter Summary ---
:1980 Author Organization [facility] Address [address] [place] [address] Care Team Providers Name Role Phone Qasim Meza P.A.-C. Primary Care Provider [phone] Reason for Visit Reason Comments Med Refill Encounter Details Date Type Department Care Team Description 04/18/2018 Refill Department of Family Medicine, Qasim Ceja P.A.-C. Med Refill [facility], in [address] [place] [phone] [place] [address] [place] [address] [phone] Social History Tobacco Use Types Packs/Day Years [...] do you attend sikh or Never 2021 amish services? 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 PCP - General 01/22/17 08/24/[address] [place] [phone] documented as of this encounter
--- OUTSIDE RECORDS SUMMARY | 2022-04-29 07:42 | XMS_ITS | Encounter Summary ---
:1980 Author Organization [facility] Address [address] [place] [address] Care Team Providers Name Role Phone Qasim Meza P.A.-C. Primary Care Provider [phone] Encounter Details Date Type Department Care [...] do you attend quaker or Never 2021 yarsanism services? Do you [...] at Date Recorded Female 09/01/2021 7:35 PM ACADEMIC SUPPORT DIRECTOR documented as of this encounter Plan of Treatment Not on filedocumented as of this encounter Visit Diagnoses Not on filedocumented in this encounter Additional Health Concerns Assessment Noted Time PHQ-9 Depression Total Score: 8 06/12/2016 10:45 AM CD T documented as of this encounter Care Teams Paper Slitter Relationship Specialty Start Date End Date Qasim Meza P.A.-C. PCP - General 01/22/17 08/24/18 [address] [place] [phone] documented as of this encounter
--- OUTSIDE RECORDS SUMMARY | 2022-04-29 07:42 | XMS_ITS | Encounter Summary ---
:1980 Author Organization [facility] Address [address] [place] [address] Care Team Providers Name Role Phone Qasim Meza P.A.-C. Primary Care Provider [phone] Reason for Visit Reason Comments Med Refill Encounter Details Date Type Department Care Team Description 02/01/2018 Refill Department of Family Medicine, Qasim Ceja P.A.-C. Med Refill [facility], in [address] [place] [phone] [place] [address] [place] [address] [phone] Social History Tobacco Use Types Packs/Day Years [...] do you attend islam or Never 2021 caodaism services? Do you [...] at Date Recorded Female 09/01/2021 7:35 PM AMPOULE FILLER documented as of this encounter Plan of Treatment Not on filedocumented as of this encounter Visit Diagnoses Not on filedocumented in this encounter Additional Health Concerns Assessment Noted Time PHQ-9 Depression Total Score: 8 06/12/2016 10:45 AM CD T documented as of this encounter Care Teams Paper Sales Manager Relationship Specialty Start Date End Date Qasim Meza P.A.-C. PCP - General 01/22/17 08/24/[address] [place] [phone] documented as of this encounter
--- OUTSIDE RECORDS SUMMARY | 2022-04-29 07:42 | XMS_ITS | Encounter Summary ---
:1980 Author Organization [facility] Address [address] [place] [address] Care Team Providers Name Role Phone Qasim Meza P.A.-C. Primary Care Provider [phone] Encounter Details Date Type Department Care Team Description 04/20/2018 Hospital Encounter Department of Radiology Jesus Deleon, Pain Hip Left in [place] fl[place] M.D. [address] [place] [address] [place] [phone] [place] [address] [phone] Social History Tobacco Use Types Packs/Day Years [...] do you attend restoration or Never 2021 roman catholic services? 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 PCP - General 01/22/17 08/24/[address] [place] [phone] documented as of this encounter
--- OUTSIDE RECORDS SUMMARY | 2022-04-29 07:42 | XMS_ITS | Encounter Summary ---
:1980 Author Organization [facility] Address [address] [place] [address] Care Team Providers Name Role Phone Qasim Meza P.A.-C. Primary Care Provider [phone] Reason for Visit Reason Onset Date Comments Med Refill 10/09/2017 Encounter Details Date Type Department Care Team Description 10/09/2017 Clinical Communication Department of Internal Qasim Meza, Med Refill Medicine in [facility] [address], [place] [phone] Social History Tobacco Use Types Packs/Day Years [...] do you attend buddhism or Never 2021 buddhist services? 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 - 10/13/2017 2:22 PM CST Patient notified. OR COBOL DEVELOPER Telephone Encounter - Magaly Chavis L.P.N. - 10/12/2017 4:30 PM CST See message in chart. OR COBOL DEVELOPER Telephone Encounter - Arlyn Jose L.P.N. - [...] a call from your office with recommendations. OR COBOL DEVELOPER Telephone Encounter - Qasim Meza P.A.-C. - 10/12/2017 4:06 PM SENIOR COBOL DEVELOPER She does have some small osteophytes or [...] recommendations when he is available. Nothing urgent OR COBOL DEVELOPER Telephone Encounter - Arlyn Jose L.P.N. - 10/12/2017 1:43 PM CST Could you please address patient's x-ray results in Dr. Grady's absence? OR COBOL DEVELOPER Telephone Encounter - Renetta Matt - 10/12/2017 12:29 PM CST Calls for results of xray OR COBOL DEVELOPER Telephone Encounter - Bonnie Franz M.D. - 10/09/2017 5:40 PM SENIOR COBOL DEVELOPER Rx for cyclobenzaprine is sent. Patient was notified. OR COBOL DEVELOPER Telephone Encounter - Jacklyn Costa - 10/09/2017 4:30 PM CST Patient is wondering about xray results and also wondering if she can get some muscle relaxer's. Sheis aware Dr. Grady is out and is wondering if someone else could do this for her. Please advise and call [phone] OR COBOL DEVELOPER documented in this encounter Plan of Treatment Not on filedocumented as of this encounter Visit Diagnoses Not on filedocumented in this encounter Additional Health Concerns Assessment Noted Time PHQ-9 Depression Total Score: 8 06/12/2016 10:45 AM CD T documented as of this encounter Care Teams Paper Handler Relationship Specialty Start Date End Date Qasim Meza P.A.-C. PCP - General 01/22/17 08/24/18 [address] [place] [phone] documented as of this encounter
--- OUTSIDE RECORDS SUMMARY | 2022-04-29 07:42 | XMS_ITS | Encounter Summary ---
:1980 Author Organization [facility] Address [address] [place] [address] Care Team Providers Name Role Phone Qasim Meza P.A.-C. Primary Care Provider [phone] Encounter Details Date Type Department Care Team Description 10/08/2017 Hospital Encounter Department of Kenrick Grady Pai n Neck; Radiology in M.D. Spondylosis Cervical Without Myelopathy [place], [address] [place] [address] [address] [place] [phone] Social History Tobacco Use Types Packs/Day Years [...] do you attend faith or Never 2021 mandaen services? 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 documented in this encounter Results DX Cervical Spine 2-3 Views (10/08/2017 11:54 AM OINTMENT MILL TENDER) Anatomical Region Laterality Modality Cervical Spine N/A Computed Radiography Specimen (Source) Anatomical Collection Method Collection Time Re ceived Time Location / / Volume Laterality 10/08/2017 12:16 PM OINTMENT MILL TENDER Impressions 10/08/2017 12:17 PM OINTMENT MILL TENDER IMPRESSION: Straightening of the normal cervical lordosis. Slight retrolisthesis of C5 on C6. Probable small dorsal disc osteophyte complexes. Normal prevertebral soft tissues. Edentulous ma xilla and mandible. Narrative 10/08/2017 12:17 PM OINTMENT MILL TENDER EXAM: DX CERVICAL SPINE 2-3 VIEWS Procedure [...] documented as of this encounter Care Teams Collar Fuser Relationship Specialty Start Date End Date Qasim Meza P.A.-C. PCP - General 01/22/17 08/24/18 [address] [place] [phone] documented as of this encounter
--- OUTSIDE RECORDS SUMMARY | 2022-04-29 07:43 | XMS_ITS | Encounter Summary ---
:1980 Author Organization [facility] Address [address] [place] [address] Care Team Providers Name Role Phone Oseas Wilson P.A.-C. Primary Care Provider [phone] Encounter Details Date Type Department Care Team Description 01/27/2017 Hospital Encounter HX [facility] Caprice Stuart M.D. [address] [place] [address] (Wo rk) Social History Tobacco Use Types [...] do you attend protestant or Never 2021 buddhism services? 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 - 01/27/2017 12:56 PM CDT [id number] CHIEF COMPLAINT/REASON FOR VISIT Follow up of [...] daily, which she remains on. EEG in [place] was normal. MRI in April 2016 did [...] an alarm or setting out a pill phys assistant so that she can keep track of [...] that I will be transitioning away from [place] and working full-time in [place] in June. She asks if she might be able to see me in [place] rather than return to a new provider here, particularly because of her epilepsy diagnosis. Ihave let her know that I will look into this at a later date and arrange through [place] as appropriate when schedules open up around that 6 month time frame. [id number]-dy-xrye time this encounter was 30 minutes with 20 minutes spent in counseling and coordinationof care. Caprice Stuart M.D./caitlyn Electronically Signed By: CAPRICE STUART MD On: 01/28/2017 07:48 AM Modified by and Electronically Signed by: CAPRICE STUART MD On: 01/28/2017 07:48 AM Source: [facility] MHSDOLBEYNONRADSYS Document Id: [id number] documented in this encounter Miscellaneous Notes Miscellaneous - Caprice Stuart M.D. - 01/27/2017 1:44 PM CDT Ambulatory Patient Summary [address] [phone] Visit Information Name: MUKUL REID [facility] Number: [phone] Current Date: 01/27/2017 13:44:34 Physicians [...] once a day fluticasone nasal (Flonase) 1 Guadalupita(s), Nasal, once a day fluticasone nasal (Flonase 50 mcg/inh nasal spray) 2 Guadalupita(s), Nasal, once a day gabapentin (gabapentin 300 mg oral capsule) 1 cap, Oral, three times a day Increase by 1 capsule perweek to 1 capsule 3 times daily This is a CHANGE Routed to [address] [address] levETIRAcetam (Keppra 500 mg oral tablet) 1 Tablet(s), Oral, two times a day Routed to [address] [address] levothyroxine (levothyroxine 75 mcg (0.075 [...] if you dont have one. Go to [email or web address] and click on Create Your Account. Then, follow the directions to complete the online form. Youll be asked for your [facility] number which you can find at the top of this document. Your Goals/Additional instructions: Source: [facility] POWERCHART Document Id: [id number] Miscellaneous - Caprice Stuart M.D. - 01/27/2017 1:44 PM CDT Ambulatory Discharge Medication List [facility] [address] [place] [phone] Visit Information Name: MUKUL REID [facility] Number: [phone] Current Date: 01/27/2017 13:44:32 Attending [...] once a day fluticasone nasal (Flonase) 1 Guadalupita(s), Nasal, once a day fluticasone nasal (Flonase 50 mcg/inh nasal spray) 2 Guadalupita(s), Nasal, once a day gabapentin (gabapentin 300 mg oral capsule) 1 cap, Oral, three times a day Increase by 1 capsule perweek to 1 capsule 3 times daily This is a CHANGE Routed to [address] [address] levETIRAcetam (Keppra 500 mg oral tablet) 1 Tablet(s), Oral, two [place] [address] levothyroxine (levothyroxine 75 mcg (0.075 mg) oral [...] MD Signed On:27-JAN-2017 13:44:28 Additional Information: Source: [facility] POWERCHART Document Id: [id number] Miscellaneous - Christal Chung, LRafalP.N. - 01/27/2017 1:12 PM CDT Adult Home Improvement Installer Intake/History Adult Home Improvement Installer Intake/History Entered On: 01/27/2017 13:15 CDT Performed [...] Mass Index : 34.45 kg/m2 [facility] - 01/27/2017 13:12 CDT General Info Information Given By : Patient Preferred Communication Mode : Verbal Languages : [place] Is Patient Female and 13-50 no hysterectomy : No [facility] - 01/27/2017 13:12 CDT Subjective Pain Symptoms : No Neurological Symptoms : Headache [facility] - 01/27/2017 13:12 CDT Dependent Habits Exposure to Tobacco Smoke : Other: former Smoking Status : Former smoker Tobacco 2A : Yes Tobacco Use/Currently Using : No Tobacco Use/Last 30 Days : No Tobacco Use/Last 12 months : No Tobacco Last Use/Year : 1997 [facility] - 01/27/2017 13:12 CDT Caffeine Use Grid Caffeine Use : Current Type : Chocolate, Coffee, Soft drinks Frequency : Daily Amount : 1 cup, monsters 4 per day Last Use : 06/26/2016 [facility] - 01/27/2017 13:12 CDT Recreational Drug Use Grid Drug Use : None [facility] 01/27/2017 13:12 CDT [facility] Document Id: [id number] CDT!45 documented in this encounter Plan of Treatment Not on filedocumented as of this encounter Visit Diagnoses Not on filedocumented in this encounter Additional Health Concerns Assessment Noted Time PHQ-9 Depression Total Score: 8 06/12/2016 10:45 AM CD T documented as of this encounter Care Teams School Bus Operator Relationship Specialty Start Date End Date Oseas Wilson P.A.-C. PCP - General 01/22/17 08/24/[address] [place] [phone] documented as of this encounter
--- OUTSIDE RECORDS SUMMARY | 2022-04-29 07:43 | XMS_ITS | Encounter Summary ---
:1980 Author Organization [facility] Address [address] [place] [address] Care Team Providers Name Role Phone Unavailable Primary Care Provider Unavailable Encounter Details Date Type Department Care Team Description 04/22/2016 Hospital Encounter [facility]X [facility] MRI Caprice Stuart M.D. [address] [place], [place] [phone] (Wo rk) Social History [...] do you attend yarsani or Never 2021 pentecostalism services? 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 / Katherine Thapa M.D. - 12/13/2016 EXAM: MR Brain w/ [...] Depression Total Score: 8 10/01/2015 2:45 PM PROMOTIONAL ADVERTISING ASSISTANT documented as of this encounter
--- OUTSIDE RECORDS SUMMARY | 2022-04-29 07:43 | XMS_ITS | Encounter Summary ---
:1980 Author Organization [facility] Address [address] [place] [address] Care Team Providers Name Role Phone Unavailable Primary Care Provider Unavailable Encounter Details Date Type Department Care Team Description 10/28/2016 Hospital Encounter [facility]X [facility] PMTR Michael Grady M.D. [address] [place] [address], [address] [place] [address] (Wo rk) Social History Tobacco [...] do you attend sikhism or Never 2021 rastafari services? 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 - 10/28/2016 10:55 AM CDT [id number] CHIEF COMPLAINT/REASON FOR VISIT Bilateral knee pain [...] 0 to 130 degrees bilaterally. Brianne's [facility] are negative bilaterally. Positive patellar grind. [...] GRADY MD On: 10/29/2016 11:07 AM Source: [facility] MHSDOLBEYNONRADSYS Document Id: [id number] documented in this encounter Miscellaneous Notes Miscellaneous - Meri Grady M.D. - 10/28/2016 11:54 AM CDT Ambulatory Patient Summary [address] [id number] Visit Information Name: GRICELDA REID [facility] Number: [id number] Current Date: 10/28/2016 11:54:10 Physicians [...] once a day fluticasone nasal (Flonase) 1 [place](s), Nasal, once a day fluticasone nasal (Flonase 50 mcg/inh nasal spray) 2 [place](s), Nasal, once a day gabapentin (gabapentin 300 [...] if you dont have one. Go to [email or web address] and click on Create Your Account. Then, follow the directions to complete the online form. Youll be asked for your [facility] number which you can find at the top of this document. Your Goals/Additional instructions: Source: [facility] POWERCHART Document Id: [id number] Miscellaneous - Meri Grady M.D. - 10/28/2016 11:54 AM CDT Ambulatory Discharge Medication List [address] [id number] Visit Information Name: GRICELDA REID [facility] Number: [id number] Current Date: 10/28/2016 11:54:09 Attending [...] once a day fluticasone nasal (Flonase) 1 [place](s), Nasal, once a day fluticasone nasal (Flonase 50 mcg/inh nasal spray) 2 [place](s), Nasal, once a day gabapentin (gabapentin 300 [...] MD Signed On:28-OCT-2016 11:53:38 Additional Information: Source: [facility] POWERCHART Document Id: [id number] Miscellaneous - Yenny Bermudez L.PIsiah - 10/28/2016 11:11 AM CDT Adult Still Cleaner Intake/History Adult Still Cleaner Intake/History Entered On: 10/28/2016 11:12 CDT Performed [...] Information Given By : Patient Languages : Macedonian Is Patient Female and 13-50 no hysterectomy [...] day Last Use : 06/26/2016 YENNY BERMUDEZ MANAGER CUSTOMER - 10/28/2016 11:11 CDT Recreational Drug Use Grid Drug Use : None YENNY BERMUDEZ MANAGER CUSTOMER - 10/28/2016 11:11 CDT Source: [facility] Space Monkey Document Id: [id number] CDT!36 documented in this encounter Plan of [...]
--- OUTSIDE RECORDS SUMMARY | 2022-04-29 07:43 | XMS_ITS | Encounter Summary ---
:1980 Author Organization [facility] Address [address] [place] [address] Care Team Providers Name Role Phone Qasim Meza P.A.-C. Primary Care Provider Reason for Visit Reason Comments Med Refill Encounter Details Date Type Department Care Team Description 07/31/2017 Refill Department of Family Medicine, Qasim Ceja P.A.-C. 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 documented as of this encounter Miscellaneous Notes Telephone Encounter - Sherice Dominguez - 07/31/2017 3:26 PM CST Nurse review: Unable to propose medication; Not on Med List Primary Provider: Derrick Name of medication: Fluticasone Strength: 50mcg spray Frequency: Shake bottle and use 2 sprays in each nostril daily Quantity: Refills: Last Refill: Pharmacy: [facility] Telephone Encounter - Bhavani Chavira - 07/31/2017 11:25 AM CST Nurse review: Unable to propose medication; dose discrepancy Primary Provider: Qasim Meza Name of medication: VITAMIN D3 CAP Strength: 2000UNIT Frequency: Take one capsule by mouth once daily Quantity: 30 Refills: Last Refill: 02-17-2017 Pharmacy: [facility] TR[facility]ER documented in this encounter Plan of Treatment Not on filedocumented as of this encounter Visit Diagnoses Not on filedocumented in this encounter Additional Health Concerns Assessment Noted Time PHQ-9 Depression Total Score: 8 06/12/2016 10:45 AM CD T documented as of this encounter Care Teams Federal Aid Coordinator Relationship Specialty Start Date End Date Qasim Meza P.A.-C. PCP - General 01/22/17 08/24/18 [address] [place] [address] documented as of this encounter
--- OUTSIDE RECORDS SUMMARY | 2022-04-29 07:43 | XMS_ITS | Encounter Summary ---
:1980 Author Organization [facility] Address [address] [place] [address] Care Team Providers Name Role Phone Unavailable Primary Care Provider Unavailable Encounter Details Date Type Department Care Team Description 06/12/2016 Hospital Encounter HX [facility] FBKF FAMILYPRA Akhil Wilson P.A.-C. [address] [place] [address] (Wo rk) Social History Tobacco [...] do you attend mosque or Never 2021 evangelical services? 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 - 06/12/2016 10:29 AM CDT [id number] CHIEF COMPLAINT/REASON FOR VISIT Multiple issues. HISTORY [...] of which 25 of it was in ehmr-wo-ebbl coordinationof care and counseling. If there is any further questions or any problems she will let us know. Oseas Wilson P.A.-C./caitlyn Electronically Signed By: OSEAS WILSON PA-C On: 06/12/2016 01:23 PM Source: [facility] MHSDOLBEYNONRADSYS Document Id: [id number] documented in this encounter Miscellaneous Notes Miscellaneous - Conversion, Historical Provider Ser - 05/11/2017 7:04 AM CDT Med Management Document Contains Addenda Addendum by SALINAS SCHNEIDER on May 12, 2017 16:26:10 CDT From: SALINAS SCHNEIDER ([facility] Track Leader) To: OSEAS WILSON PA-C; Sent: 05/12/2017 16:26:10 CDT Subject: FW: Med Management Provider: Dr. Wilson Pharmacy: [id number] [place] Name of Medication: sumitriptan (qty 1) Pharmacy Communication: Please clarify only 1 tab or 1 box? Thank you. [facility] [place]. Addendum by OSEAS WILSON PA-C on May 11, 2017 08:34:23 CDT From: OSEAS WILSON PA-C Sent: 05/11/2017 08:34:22 CDT Subject: RE:Med Management Approved Order:SUMAtriptan (SUMAtriptan 100 mg oral tablet) 1 tab(s) PO Once Qty: 1 tab(s) Refills: 5 Substitutions Allowed Route To Pharmacy [facility] 165 listed in doc by history Signed by OSEAS WILSON PA-C 05/11/2017 08:34:19 From: BJ BELTRÁN ([facility] Track Leader) To: OSEAS WILSON PA-C; Sent: 05/11/2017 07:04:00 CDT Subject: Med Management On hold pending signature Order:SUMAtriptan (SUMAtriptan 100 mg oral tablet) 1 tab(s) PO Once Qty: 1 tab(s) Refills: 5 Substitutions Allowed Route To [facility]57 listed in doc by history Source: [facility] CV PropertiesCHART Document Id: [id number] Telephone Encounter - Conversion, Historical Provider Ser - 09/23/2016 11:57 AM CST *Phone Message/Derrick Document Contains Addenda Addendum by VEENA SHOOK CMA on September 23, 2016 14:20:56 ROUTE DRIVER SALESPERSON Spoke with: ( _ ) Patient ( [...] language for Healthcare discussion: _ Was an wheel polisher used for this call? _ Other ( --_ ) Addendum by SANDOVAL HORNE LPN on September 23, 2016 12:16:55 ROUTE DRIVER SALESPERSON From: SANDOVAL HORNE LPN ( [facility] To: RAMON/DANIEL Medication Prior Auth; Sent: 09/23/2016 12:16:55 ROUTE DRIVER SALESPERSON Subject: pa status From: ITZEL HARO To: RAMON Perry Nurse; Sent: 09/23/2016 11:57:29 ROUTE DRIVER SALESPERSON Subject: *Phone Message/RapidMinerethler Caller is: ( ) Patient ( ) Mother ( ) Father ( ) Spouse ( ) Daughter ( ) Son ( ) Pharmacy ( x ) Other: Physician: Patient MRN #: Reason for Call: Message: [facility] Pharmacy checking on PA [EmbeddedHexData] Please call [...] back cell phone number ( ) Source: [facility] Triplify Document Id: [id number] Telephone Encounter - Conversion, Historical Provider Ser - 06/24/2016 11:39 AM CST *Phone Message/Oseas Document Contains Addenda Addendum by FRANCIA ROSALES RN on June 24, 2016 12:05 ROUTE DRIVER SALESPERSON Done. See message dated 06/23/16. regarding med refills. Modified by and Electronically Signed by: FRANCIA ROSALES RN On: 06/24/2016 12:05 PM From: VICKY HAY ([facility] Software Engineer) To: Derrick Nurse; Sent: 06/24/2016 11:39:23 ROUTE DRIVER SALESPERSON Subject: *Phone Message/Oseas Caller is: ( x ) Patient ( ) Mother ( ) Father ( ) Spouse ( ) Daughter ( ) Son ( ) Pharmacy ( ) Other: Physician: Patient MRN #: Reason for Call: Gricelda is returning a call she received today from the nurse. Please call Gricelda backon her cell phone at [phone]. Message: Advice/Action: Source used: ( ) Verbalizes [...] back cell phone number ( ) Source: [facility] POWERCHART Document Id: [id number] E DRIVER SALESPERSON Telephone Encounter - Francia Rosales R.N. - 06/23/2016 4:03 PM CST Citalopram vs Lexapro Document Contains Addenda Addendum by FRANCIA ROSALES RN on June 24, 2016 12:04:38 ROUTE DRIVER SALESPERSON Spoke with patient, she is not taking [...] this time. From: FRANCIA ROSALES RN ([facility] [place] Medication Refill) To: RAMON Blackwell Medication Refill; Sent: 06/23/2016 16:03:51 ROUTE DRIVER SALESPERSON Subject: Citalopram vs Lexapro received refill request [...] we determine which medication is wanted. Source: [facility] POWERCHART Document Id: [id number] Telephone Encounter - Conversion, Historical Provider Ser - 06/20/2016 4:30 PM CST *Phone Message Document Contains Addenda Addendum by SAKINA JENSEN LPN on June 20, 2016 16:42:40 ROUTE DRIVER SALESPERSON notified of lab result and transferred to psr to schedule ER f/u appt in [place] From: FRANCIA CROSS (RAMON Wilson Nurse) To: RAMON Wilson Nurse; Sent: 06/20/2016 16:30:04 ROUTE DRIVER SALESPERSON Subject: *Phone Message Caller is: ( x [...] about what this is in regards to. [phone] Advice/Action: Source used: ( ) Verbalizes understanding [...] back cell phone number ( ) [facility] Document Id: [id number] Telephone Encounter - Conversion, Historical Provider Ser - 06/20/2016 8:35 AM CST *Phone Message/Oseas Wilson Document Contains Addenda Addendum by CHRISTINE SEARS LPN on June 20, 2016 11:41:18 ROUTE DRIVER SALESPERSON Left message for patient to return call. Addendum by OSEAS WILSON PA-C on June 20, 2016 11:39:27 ROUTE DRIVER SALESPERSON From: OSEAS WILSON PA-C To: RAMON Wilson Nurse; Sent: 06/20/2016 11:39:27 ROUTE DRIVER SALESPERSON Subject: RE: *Phone Message/Oseas Wilson please notify her that potassium was normal Addendum by CHRISTINE SEARS LPN on June 20, 2016 09:32:55 ROUTE DRIVER SALESPERSON From: CHRISTINE SEARS LPN ([facility] Wilson Nurse) To: OSEAS WILSON PA-C; Sent: 06/20/2016 09:32:55 ROUTE DRIVER SALESPERSON Subject: FW: *Phone Message/Oseas Shepardwestley Tripp have you seen her ER note? From: OCHOA SÁNCHEZ ([facility] Software Engineer) To: RAMON Wilson Nurse; Sent: 06/20/2016 08:35:23 ROUTE DRIVER SALESPERSON Subject: *Phone Message/Oseas Wilson Caller is: ( [...] the . Please call her back at [phone]. Advice/Action: Source used: ( ) Verbalizes understanding [...] back cell phone number ( ) Source: [facility] POWERCHART Document Id: [id number] Telephone Encounter - Conversion, Historical Provider Ser - 06/18/2016 1:20 PM CST *Phone Message Document Contains Addenda Addendum by LATONIA ANTHONY LPN on June 23, 2016 09:55:59 ROUTE DRIVER SALESPERSON Patient is aware of her lab results. Addendum by SAKINA JENSEN LPN on June 18, 2016 13:48:22 ROUTE DRIVER SALESPERSON From: SAKINA JENSEN LPN (RAMON Wilson Nurse) To: LATONIA ANTHONY LPN; Sent: 06/18/2016 13:48:22 ROUTE DRIVER SALESPERSON Subject: FW: *Phone Message Addendum by SAKINA JENSEN LPN on June 18, 2016 13:48:18 ROUTE DRIVER SALESPERSON Gricelda is returning a call to [place], please call her back at [phone] From: YOKO KAMINSKI ([facility] Nurse) To: RAMON iWlson Nurse; Sent: 06/18/2016 13:20:02 ROUTE DRIVER SALESPERSON Subject: *Phone Message Caller is: ( x ) Patient ( ) Mother ( ) Father ( ) Spouse ( ) Daughter ( ) Son ( ) Pharmacy ( ) Other: Physician: Patient MRN #: Reason for Call: Message: patient calling- is returning a call from last week- call her back at [phone] Advice/Action: Source used: ( ) Verbalizes understanding [...] back cell phone number ( ) Source: [facility] POWERCHART Document Id: [id number] Miscellaneous - Oseas Wilson P.A.-C. - 06/12/2016 [...] Lvl 9.1 mg/dL (8.0 - 10.3) Source: [facility] POWERCHART Document Id: [id number] Telephone Encounter - Conversion, Historical Provider Ser - 06/12/2016 12:48 PM CDT *Phone Message Document Contains Addenda Addendum by RAJESH DALAL LPN on June 12, 2016 13:05:26 CDT Patient added to cancellation list. From: RAYMON ZARAGOZA ( [employer] Software Engineer) To: Physical Medicine and Rehabilitation Staff; [...] August 2016. She can be reached at [phone] Message: Advice/Action: Source used: ( ) Verbalizes [...] back cell phone number ( ) Source: [facility] Triplify Document Id: [id number] Miscellaneous - Oseas Wilson P.A.-C. - 06/12/2016 11:52 AM CDT Ambulatory Patient Summary [address] [id number] Visit Information Name: JEANETTEGRICELDA [facility] Number: [id number] Current Date: 06/12/2016 11:52:15 Physicians [...] once a day fluticasone nasal (Flonase) 1 [place](s), Nasal, once a day fluticasone nasal (Flonase 50 mcg/inh nasal spray) 2 [place](s), Nasal, once a day Routed to [address] [id number] gabapentin (gabapentin 300 mg oral capsule) 1 [...] if you dont have one. Go to [email or web address] and click on Create Your Account. Then, follow the directions to complete the online form. Youll be asked for your [facility] number which you can find at the top of this document. Your Goals/Additional instructions: Source: [facility] POWERCHART Document Id: [id number] Miscellaneous - Oseas Wilson P.A.-C. - 06/12/2016 11:52 AM CDT Ambulatory Discharge Medication List [address] [id number] Visit Information Name: JEANETTEGRICELDA [facility] Number: [id number] Current Date: 06/12/2016 11:52:14 Attending [...] once a day fluticasone nasal (Flonase) 1 [place](s), Nasal, once a day fluticasone nasal (Flonase 50 mcg/inh nasal spray) 2 [place](s), Nasal, once a day Routed to [address] [id number] gabapentin (gabapentin 300 mg oral capsule) 1 [...] PA-C Signed On:12-JUN-2016 11:25:13 Additional Information: Source: [facility] Triplify Document Id: [id number] Miscellaneous - Latonia Anthony L.P.N. - 06/12/2016 [...] ANTHONY LPN - 06/12/2016 10:45 CDT [facility] Document Id: [id number] CDT!13 Chikiscelllamberto - Latonia Anthony L.PRafalNRafal - 06/12/2016 10:40 AM CDT Adult Logistics Account Manager Intake/History Adult Logistics Account Manager Intake/History Entered On: 06/12/2016 10:43 CDT Performed [...] Preferred Communication Mode : Verbal Languages : Greenlandic Is Patient Female and 13-50 no hysterectomy [...] ANTHONY LPN - 06/12/2016 10:40 CDT Source: [facility] POWERCHART Document Id: [id number] CDT!58 documented in this encounter Plan of [...] POWERCHART MMOLL HXeGFR (MDRD) >60 >=60 POWERCHART [id number] eGFR >60 >=60 POWERCHART Black/ [id number] Central African Glucose 74 70 - 139 POWERCHART MGDL [...]
--- OUTSIDE RECORDS SUMMARY | 2022-04-29 07:43 | XMS_ITS | Encounter Summary ---
:1980 Author Organization [facility] Address [address] [place] [address] Care Team Providers Name Role Phone Unavailable Primary Care Provider Unavailable Encounter Details Date Type Department Care Team Description 02/05/2016 Hospital Encounter HX [facility] NEUROLOGY Caprice Stuart M.D. [address] [place] [address] (Wo rk) Social History Tobacco Use Types [...] do you attend caodaism or Never 2021 bahai services? 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 - 02/05/2016 2:13 PM CDT [id number] REFERRAL SOURCE Oseas Wilson PA-C CHIEF COMPLAINT/REASON [...] has no personal history of febrile seizures, BACTERIOLOGIST PHARMACEUTICAL infection, or significant head trauma. She does [...] medications in the past. EEG performed in [place] was normal. I do note that she [...] Alert and oriented x 4. CRANIAL NERVES: mechanical service representative II-XII intact and symmetric. MOTOR: Full strength [...] the upper and lower extremities. CEREBELLAR: Heel-foss, hcogch-dsbi-dnzyoc, and AMRs are performed well without evidence [...] to the laws of the state of [place]. I encouraged her to report to the [...] she had 2 seizures 2 weeks apart. Mdcg-dj-wtkm time in this encounter was 45 minutes with greater than 50% of that spent in counselingand coordination of care. Caprice Stuart M.D./caitlyn Electronically Signed By: CAPRICE STUART MD On: 02/06/2016 07:49 AM Modified by and Electronically Signed by: CAPRICE STUART MD On: 02/06/2016 07:49 AM Source: [facility] MHSDOLBEYNONRADSYS Document Id: [id number] documented in this encounter Nursing Notes Caprice [...] victim has no history of seizures ?? [id number] [facility], [address] [place] [address]. All rights reserved. This information is not intended as a substitute for professional medical care. Always follow your healthcare professional's instructions. ? This document has images extracted. Please consider using [employer]ell[employer] for all your patient education needs. Source: [facility] POWERCHART Document Id: [id number] documented in this encounter Miscellaneous Notes Telephone [...] use tree stands. May return call at [phone] Advice/Action: Source used: ( ) Verbalizes understanding [...] back cell phone number ( ) Source: [facility] POWERCHART Document Id: [id number] Electronically signed by Ruby [facility] Cook Italian Style Food [id number] at 01/03/2017 6:44 PM CDT Miscellaneous - Dereck Rogers, C.M.ARafal - 02/05/2016 [...] Internal electrodes/wires : No Neurostimulator/Biostimulator : No Snyder dorothea catheter : No DERECK ROGERSKarina Bennett [...] No Penile Implant : No Breast Tissue Mold Maker Plaster/Implant : No : No (document number of [...] Yes ROGERSBGDERECKJIA GROSS 02/05/2016 15:28 CDT Source: [facility] fsboWOW Document Id: [id number] CDT!48 Alex - Caprice Stuart M.D. - 02/05/2016 3:13 PM CDT MRI checklist From: CAPRICE STUART MD To: Nephrology/Neurology Nurse; Sent: 02/05/2016 15:13:31 CDT Subject: MRI checklist Forgot to have her stay to do the MRI checklist. Please give her a call to go through it. andthanks. Caprice Rodrigues Source: [facility] fsboWOW Document Id: [id number] Electronically signed by Ruby [facility] Cook Italian [employer] Food [id number] at 01/03/2017 6:44 PM CDT Chikiscelllamberto - Caprice Stuart M.D. - 02/05/2016 3:01 PM CDT Ambulatory Patient Summary [facility] [address] [place] [id number] Visit Information Name: GRICELDA REID [facility] Number: [id number] Current Date: 02/05/2016 15:01:56 Physicians [...] once a day fluticasone nasal (Flonase) 1 [place](s), Nasal, once a day levETIRAcetam (Keppra 500 [...] victim has no history of seizures ?? [id number] Wendy Millan, [address] [place] [address], [place] [address]. All rights reserved. This information is not [...] if you dont have one. Go to [email or web address] and click on Create Your Account. Then, follow the directions to complete the online form. Youll be asked for your [facility] number which you can find at the top of this document. Your Goals/Additional instructions: This document has images extracted. Please consider using [employer] for all your patient education needs. Source: [facility] POWERCHART Document Id: [id number] Miscellaneous - Caprice Stuart M.D. - 02/05/2016 3:01 PM CDT Ambulatory Discharge Medication List [address] [id number] Visit Information Name: GRICELDA REID [facility] Number: [id number] Visit Date: 02/05/2016 15:01:55 Attending [...] once a day fluticasone nasal (Flonase) 1 [place](s), Nasal, once a day levETIRAcetam (Keppra 500 [...] MD Signed On:05-FEB-2016 15:01:36 Additional Information: Source: [facility] POWERCHART Document Id: [id number] Miscellaneous - Dereck Rogers C.MRafalARafal - 02/05/2016 2:17 PM CDT Adult Survey Crew Chief Intake/History Adult Survey Crew Chief Intake/History Entered On: 02/05/2016 14:21 CDT Performed [...] By : Patient, Daughter, Spouse Languages : Estonian Is Patient Female and 13-50 no hysterectomy [...] DERECK ROGERS - 02/05/2016 14:17 CDT [facility] Document Id: [id number] CDT!41 documented in this encounter Plan of Treatment Not on filedocumented as of this encounter Visit Diagnoses Not on filedocumented in this encounter Additional Health Concerns Assessment Noted Time PHQ-9 Depression Total Score: 8 10/01/2015 2:45 PM PHOTOGRAPHER SCIENTIFIC documented as of this encounter
--- OUTSIDE RECORDS SUMMARY | 2022-04-29 07:43 | XMS_ITS | Encounter Summary ---
:1980 Author Organization [facility] Address [address] [place] [address] Care Team Providers Name Role Phone Unavailable Primary Care Provider Unavailable Encounter Details Date Type Department Care Team Description 10/06/2016 Hospital Encounter HX [facility] FAMILYPRA Kalina Wilson P.A.-C. [address] [place] [address] (Wo rk) Social History [...] do you attend alevism or Never 2021 anabaptism services? 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 - 10/06/2016 12:28 PM CST [id number] CHIEF COMPLAINT/REASON FOR VISIT Ear pain and [...] of which 20 of it was in iwqs-br-jiux coordinationof care and counseling. Oseas Wilson P.A.-C./caitlyn Electronically Signed By: OSEAS WILSON PA-C On: 10/08/2016 08:21 AM Source: [facility] MHSDOLBEYNONRADSYS Document Id: [id number] CONTROLLER documented in this encounter Miscellaneous Notes Miscellaneous [...] Refills: 1 Substitutions Allowed Route To Pharmacy [facility] 5593 Signed by MERI GARCIA MD Addendum by FRANCIA ROSALES RN on May 08, 2017 11:07:15 CDT From: FRANCIA ROSALES RN ([facility] Medication Refill) To: MERI GARCIA MD; Sent: 05/08/2017 11:07:15 CDT Subject: Med not covered - Salonpas Lidocaine Patch From: BJ BELTRÁN ([facility] Weaving Teacher) To: RAMON [place] Medication Refill; Sent: 05/08/2017 10:55:30 CDT Subject: Medication Refill Ms Provider: Meri Garcia Pharmacy: [facility] Name of Medication: Salonpas Lidocaine 4% patch Pharmacy Communication: Drug not covered by inusrance. Lidocaine 5% patches may be covered or otheralterntative. Thank you. Source: [facility] EDF [employer] Document Id: [id number] Telephone Encounter - Francia Rosales R.N. - 04/14/2017 5:14 PM CDT refill request - Strattera Document Contains Addenda Addendum by OSEAS WILSON PA-C on April 15, 2017 09:48:32 CDT From: OSEAS WILSON PA-C To: RAMON [facility] Medication Refill; Sent: 04/15/2017 09:48:32 CDT Subject: RE: refill request - Strattera done From: FRANCIA ROSALES RN ( [place] Medication Refill) To: OSEAS WILSON PA-C; Sent: [...] to Pharmacy ( _ ) Patient will burr picker Script ( _ ) Mail Rx to Patient Source: [facility] [employer]F [employer] Document Id: [id number] Miscellaneous - Kenia Klein R.N. - 12/31/2016 [...] CDT From: OSEAS WILSON PA-C To: RAMON [place] Medication Refill; Sent: 12/31/2016 17:12:46 CDT Subject: RE: keppra She was supposed to follow up with Neurology 6 months ago. I refilled her keppra From: KENIA KLEIN RN ([facility] [place] Medication Refill) To: OSEAS WILSON PA-C; Sent: [...] Call to Pharmacy ( ) Patient will burr picker Script ( ) Mail Rxto Patient Source: [facility] [employer] Document Id: [id number] Miscellaneous - Kenia Klein R.N. - 11/10/2016 10:50 AM CDT cetrizine Document Contains Addenda Addendum by OSEAS WILSON PA-C on November 10, 2016 11:00:21 CDT From: OSEAS WILSON PA-C To: [facility] Medication Refill; Sent: 11/10/2016 11:00:21 CDT Subject: RE: cetrizine done From: KENIA KLEIN RN ([facility] Medication Refill) To: OSEAS WILSON PA-C; Sent: [...] Call to Pharmacy ( ) Patient will burr picker Script ( ) Mail Rxto Patient Source: [facility] POWERCHART Document Id: [id number] Miscellaneous - Oseas Wilson P.A.-C. - 10/06/2016 1:35 PM CST Ambulatory Patient Summary [address] [id number] Visit Information Name: GRICELDA ROBERTS [facility] Number: [id number] Current Date: 10/06/2016 13:35:46 Physicians Attending Provider: OSEAS WILSON PA-C Primary [...] once a day fluticasone nasal (Flonase) 1 [place](s), Nasal, once a day fluticasone nasal (Flonase 50 mcg/inh nasal spray) 2 [place](s), Nasal, once a day gabapentin (gabapentin 300 [...] Oral, once a day New Routed to [address] [place] [address] verapamil (verapamil 120 mg/24 hours oral capsule, [...] online form. Youll be asked for your [facility] number which you can find at the top of this document. Your Goals/Additional instructions: Source: [facility] POWERCHART Document Id: [id number] CONTROLLER Miscellaneous - Oseas Wilson P.A.-C. - 10/06/2016 1:35 PM CST Ambulatory Discharge Medication List [address] [id number] Visit Information Name: GRICELDA ROBERTS [facility] Number: [id number] Current Date: 10/06/2016 13:35:45 Attending [...] once a day fluticasone nasal (Flonase) 1 [place](s), Nasal, once a day fluticasone nasal (Flonase 50 mcg/inh nasal spray) 2 [place](s), Nasal, once a day gabapentin (gabapentin 300 [...] Oral, once a day New Routed to [address] [place] [address] verapamil (verapamil 120 mg/24 hours oral capsule, [...] PA-C Signed On:06-OCT-2016 13:35:42 Additional Information: Source: [facility] POWERCHART Document Id: [id number] CONTROLLER Miscellaneous - Sakina Schneider L.PIsiah - 10/06/2016 12:36 PM CST Adult Varnish Mixer Intake/History Document Has Been Updated Adult Varnish Mixer Intake/History Entered On: 10/06/2016 12:42 LINE CONTROLLER Performed On: 10/06/2016 12:36 LINE CONTROLLER by SAKINA SCHNEIDER LPN Intake Chief Complaint : med check- sleep walkiing on ambien R ear pain SAKINA SCHNEIDER LPN - 10/06/2016 12:42 LINE CONTROLLER Temperature Core : 36.3 DegC(Converted to: 97.3 [...] 34.89 kg/m2 SAKINA SCHNEIDER LPN 10/06/2016 12:36 LINE CONTROLLER General Info Information Given By : Patient Languages : Syrian Is Patient Female and 13-50 no hysterectomy : No SAKINA SCHNEIDER [facility] 10/06/2016 12:36 LINE CONTROLLER Subjective Pain Symptoms : Yes SAKINA SCHNEIDER [facility] 10/06/2016 12:36 LINE CONTROLLER Pain Scale Pain Scale Verbal 0-10 : Open SAKINA SCHNEIDER [facility] 10/06/2016 12:36 LINE CONTROLLER Pain Pain Assessment Grid Pain 1 Location : Ear SAKINA SCHNEIDER [facility] 10/06/2016 12:36 LINE CONTROLLER Dependent Habits Exposure to Tobacco Smoke : Other: former Smoking Status : Former smoker Tobacco 2A : Yes Tobacco Use/Currently Using : No Tobacco Use/Last 30 Days : No Tobacco Use/Last 12 months : No Tobacco Last Use/Year : 1997 SAKINA SCHNEIDER [facility] 10/06/2016 12:36 LINE CONTROLLER Caffeine Use Grid Caffeine Use : Current Type : Chocolate, Coffee, Soft drinks Frequency : Daily Amount : 1 cup, monsters 4 per day Last Use : 06/26/2016 SAKINA SCHNEIDER [facility] 10/06/2016 12:36 LINE CONTROLLER Recreational Drug Use Grid Drug Use : None SAKINA SCHNEIDER [facility] 10/06/2016 12:36 LINE CONTROLLER Source: [employer] Document Id: [id number] LINE CONTROLLER!3 CONTROLLER documented in this encounter Plan of Treatment Not on filedocumented as of this encounter Visit Diagnoses Not on filedocumented in this encounter Additional Health Concerns Assessment Noted Time PHQ-9 Depression Total Score: 8 06/12/2016 10:45 AM CD T documented as of this encounter
--- OUTSIDE RECORDS SUMMARY | 2022-04-29 07:43 | XMS_ITS | Encounter Summary ---
:1980 Author Organization [facility] Address [address] [place] [address] Care Team Providers Name Role Phone Qasim Meza P.A.-C. Primary Care Provider [phone] Reason for Visit Reason Onset Date Comments RX prior auth 06/26/2017 Encounter Details Date Type Department Care Team Description 06/26/2017 Clinical Communication Department of Kenrick Grady, RX prior auth Occupational Medicine M.DRafal in [address] [place] [phone] Social History Tobacco Use Types Packs/Day Years [...] you attend roman catholic or Never 2021 jainism services? 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 UNICATIONS EQUIPMENT INSTALLER Telephone Encounter - Tamera Jung - 06/26/2017 11:01 AM CST SCH[facility] is calling about a prior auth for an RX . Please call back Miller [phone] UNICATIONS EQUIPMENT INSTALLER documented in this encounter Plan of Treatment Not on filedocumented as of this encounter Visit Diagnoses Not on filedocumented in this encounter Additional Health Concerns Assessment Noted Time PHQ-9 Depression Total Score: 8 06/12/2016 10:45 AM CD T documented as of this encounter Care Teams Programming Development Project Manager Relationship Specialty Start Date End Date Qasim Meza P.A.-C. PCP - General 01/22/17 08/24/[address] [place] [phone] documented as of this encounter
--- OUTSIDE RECORDS SUMMARY | 2022-04-29 07:43 | XMS_ITS | Encounter Summary ---
:1980 Author Organization [facility] Address [address] [place] [address] Care Team Providers Name Role Phone Qasim Meza P.A.-C. Primary Care Provider [phone] Reason for Visit Reason Onset Date Comments Med Refill 08/27/2017 [facility] [place] has a request from the patient to refill her Buspirone. Christine cox send new script. Encounter Details Date Type Department Care Team Description 08/27/2017 Clinical Communication Department of Simon Meza ([facility] in [facility] has a Jossy Reynolds P.A.-C. request from the [address] [place] [address] patient to refill [place], [place] her Buspirone. [phone] Please send new [phone] script. ) (Work) Social History Tobacco Use [...] do you attend anabaptist or Never 2021 denominational services? 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 Please send new script. INE BLADE ASSEMBLER documented in this encounter Plan of Treatment Not on filedocumented as of this encounter Visit Diagnoses Not on filedocumented in this encounter Additional Health Concerns Assessment Noted Time PHQ-9 Depression Total Score: 8 06/12/2016 10:45 AM CD T documented as of this encounter Care Teams Data Virtualization Consultant Relationship Specialty Start Date End Date Qasim Meza P.A.-C. PCP - General 01/22/17 08/24/[address] [place] [phone] documented as of this encounter
--- OUTSIDE RECORDS SUMMARY | 2022-04-29 07:43 | XMS_ITS | Encounter Summary ---
:1980 Author Organization [facility] Address [address] [place] [address] Care Team Providers Name Role Phone Unavailable Primary Care Provider Unavailable Encounter Details Date Type Department Care Team Description 01/24/2016 Hospital Encounter HX [facility] FAMILYPRA Akhil Wilson P.A.-C. [address] [place] [address] (Wo rk) Social History Tobacco [...] do you attend islam or Never 2021 presybeterian services? 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 - 01/24/2016 9:45 AM CDT [id number] CHIEF COMPLAINT/REASON FOR VISIT Multiple issues. HISTORY [...] of which 20 of it was in [id number]-[id number] coordinationof care and counseling. Oseas Wilson PA-C/caitlyn Electronically Signed By: OSEAS WILSON PA-C On: 01/25/2016 08:39 AM Source: [facility] MHSDOLBEYNONRADSYS Document Id: [id number] documented in this encounter Miscellaneous Notes Miscellaneous - Kenia Klein R.N. - 03/25/2016 12:07 PM CDT imitrex Document Contains Addenda Addendum by OSEAS WILSON PA-C on March 26, 2016 09:46:56 CDT From: OSEAS WILSON PA-C To: [place] Medication Refill; Sent: 03/26/2016 09:46:56 CDT Subject: RE: imitrex done From: KENIA KLEIN RN ( [place] Medication Refill) To: OSEAS WILSON PA-C; Sent: 03/25/2016 12:07:39 CDT Subject: imitrex Caller is: ( ) Patient ( ) Mother ( ) Father ( ) Spouse ( ) Daughter ( ) Son ( shanita/clem ) Pharmacy ( ) Other: Provider: [facility]: Name of Medications Needing Refill: Imitrex 100 mg Last Refill Date: 03/09/2016 qty 9 Additional Information: Saw Neurology on 02/05/16...1 tab po as directed.... Last / Future Appointment: 01/24/16 Disposition: ( x ) Send to Pharmacy ( ) Call to Pharmacy ( ) Patient will forklift picker Script ( ) Mail Rxto Patient Source: [facility] POWERCHART Document Id: [id number] Miscellaneous - Kenia Klein R.N. - 03/10/2016 [...] KENIA KLEIN RN ( Cardiology Nurse) To: [place] Medication Refill; Sent: 03/12/2016 09:04:15 CDT Subject: [...] Call to Pharmacy ( ) Patient will forklift picker Script ( ) Mail Rxto Patient Source: [facility] POWERCHART Document Id: [id number] Telephone Encounter - Sakina Schneider L.P.N. - [...] back cell phone number ( ) Source: [facility] POWERCHART Document Id: [id number] Electronically signed by Conversion, [facility] Steam Box Tender [id number] at 01/03/2017 6:44 PM CDT Telephone Encounter [...] to have to make two trips to [place] and she is coming in for something else. Please contact her when this is completed. Addendum by DEANN HAYES LPN on February 12, 2016 16:37:53 CDT From: DEANN HAYES LPN ( Family Medicine Nurse) To: RAMON Wilson Nurse; Sent: 02/12/2016 16:37:53 CDT Subject: [...] per neuro Dr linda Madison back at [phone] Advice/Action: Source used: ( ) Verbalizes understanding [...] back cell phone number ( ) Source: [facility] POWERCHART Document Id: [id number] Miscellaneous - Oseas Wilson P.A.-C. - 01/24/2016 11:52 AM CDT Ambulatory Patient Summary [address] [id number] Visit Information Name: JEANETTEGRICELDA [facility] Number: [id number] Current Date: 01/24/2016 11:52:18 [...] once a day fluticasone nasal (Flonase) 1 [place](s), Nasal, once a day levETIRAcetam (Keppra 500 mg oral tablet) 1 Tablet(s), Oral, two times a day levothyroxine (levothyroxine 75 mcg (0.075 mg) oral tablet) 75 mcg, Oral, once a day Routed to [address] [id number] multivitamin, ( Multivitamins with Vitamin B Complex, [...] if you dont have one. Go to [email or web address] and click on Create Your Account. Then, follow the directions to complete the online form. Youll be asked for your [facility] number which you can find at the top of this document. Your Goals/Additional instructions: Source: [facility] POWERCHART Document Id: [id number] Miscellaneous - Oseas Wilson P.A.-C. - 01/24/2016 11:52 AM CDT Ambulatory Discharge Medication List [address] [id number] Visit Information Name: JEANETTEGRICELDA [facility] Number: [id number] Visit Date: 01/24/2016 11:52:17 [...] once a day fluticasone nasal (Flonase) 1 [place](s), Nasal, once a day levETIRAcetam (Keppra 500 mg oral tablet) 1 Tablet(s), Oral, two times a day levothyroxine (levothyroxine 75 mcg (0.075 mg) oral tablet) 75 mcg, Oral, once a day Routed to [facility] [address] [place] [id number] multivitamin, ( Multivitamins with Vitamin B Complex, [...] PA-C Signed On:24-JAN-2016 11:52:15 Additional Information: Source: [facility] POWERCHART Document Id: [id number] Miscellaneous - Madeline Swartz, C.M.A. - 01/24/2016 [...] with others : Somewhat difficult MADELINE SWARTZ [facility] - 01/24/2016 11:47 CDT Source: [facility] [employer] Document Id: [id number] CDT!11 Miscellaneous - Madeline Swartz CRafalMMaki - 01/24/2016 9:52 AM CDT Adult Windmill Mechanic Intake/History Adult Windmill Mechanic Intake/History Entered On: 01/24/2016 9:58 CDT Performed On: 01/24/2016 9:52 CDT by MADELINE SWARTZ [facility] Intake Chief Complaint : f/u hypothyroid, seizure, [...] scale Dosing Weight Clinic : 86.7 kg MADELINE SWARTZ [facility] - 01/24/2016 9:52 CDT General Info Information Given By : Patient Languages : Colombian Is Patient Female and 13-50 no hysterectomy : No MADELINE SWARTZ [facility] 01/24/2016 9:52 CDT Subjective Pain Symptoms : No MADELINE SWARTZ [facility] - 01/24/2016 9:52 CDT Dependent Habits Exposure to Tobacco Smoke : Other: former Smoking Status : Former smoker Tobacco 2A : Yes Tobacco Use/Currently Using : No Tobacco Use/Last 30 Days : No Tobacco Use/Last 12 months : No Tobacco Last Use/Year : 1997 Alcohol Use : No MADELINE SWARTZ [facility] 01/24/2016 9:52 CDT Caffeine Use Grid Caffeine Use : Current Type : Chocolate, Coffee, Soft drinks Frequency : Daily Amount : 1 cup, monsters 4 per day Last Use : 12/27/2015 MADELINE SWARTZ [facility] - 01/24/2016 9:52 CDT Recreational Drug Use Grid Drug Use : None MADELINE SWARTZ SCHEDULING ADMINISTRATOR - 01/24/2016 9:52 CDT Source: [facility] [employer] Document Id: [id number] CDT!40 documented in this encounter Plan of Treatment Not on filedocumented as of this encounter Visit Diagnoses Not on filedocumented in this encounter Additional Health Concerns Assessment Noted Time PHQ-9 Depression Total Score: 8 10/01/2015 2:45 PM COLOR SEPARATION PHOTOGRAPHER documented as of this encounter
--- OUTSIDE RECORDS SUMMARY | 2022-04-29 07:43 | XMS_ITS | Encounter Summary ---
:1980 Author Organization [facility] Address [address] [place] [address] Care Team Providers Name Role Phone Qasim Meza P.A.-C. Primary Care Provider [phone] Encounter Details Date Type Department Care Team Description 08/20/2017 Orders Only Department of Family Qasim Meza, Medicine, [facility], P.ARafal -CRafal in [facility] [address] [facility] [address] [place] [address] [place] [address] [phone] Social History Tobacco Use Types Packs/Day Years [...] do you attend jew or Never 2021 jewish services? 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 PCP - General 01/22/17 08/24/[address] [place] [phone] documented as of this encounter
--- OUTSIDE RECORDS SUMMARY | 2022-04-29 07:43 | XMS_ITS | Encounter Summary ---
:1980 Author Organization [facility] Address [address] [place] [address] Care Team Providers Name Role Phone Unavailable Primary Care Provider Unavailable Encounter Details Date Type Department Care Team Description 10/16/2016 Hospital Encounter HX [facility] Allie Beltran, CAR WIPER, C.N.P. [address] [place] [address] (Wo rk) Social History Tobacco Use Types [...] do you attend yazidi or Never 2021 temple services? Do you [...] OYSTER GROWER documented as of this encounter Last Filed Vital Signs Vital Sign Reading Time Taken Comments Blood Pressure - - Pulse - - Temperature - - Respiratory Rate - - Oxygen Saturation - - Inhaled Oxygen Concentration - - Weight - - Height 165 cm (5' 4.96) 10/16/2016 5:38 PM OYSTER GROWER Body Mass Index - - documented in [...] for this e-visit. Regards, Dulce Maria Urbano [facility] From: Gricelda Roberts To: PANKAJ/MARIA EST[facility] Sent: 10/16/2016 5:21 PM OYSTER GROWER Subject: e-Visit for urinary tract infection Thank you for your message. It has been sent to the appropriate care team. Oct 16, 2016 6:10 PM Chief Complaint Gricelda Roberts is a 35 year old female. The [place] e-Visit for urinary tract infection screening questionnaire was administered. The following are the patient's responses. History of Present Illness #1. [place] e-Visit for urinary tract infection: Duration: Patient [...] Patient Patient Location: [place] Pharmacy Name: [facility] Pharmacy Location and City: [address] [place] [address] Pharmacy Zip Code: [address] Electronically Signed By: DULCE MARIA URBANO APRN, CNP On: 10/16/2016 05:56 PM Source: [facility] POWERCHART Document Id: [id number] ER GROWER documented in this encounter Plan of Treatment Not on filedocumented as of this encounter Visit Diagnoses Not on filedocumented in this encounter Additional Health Concerns Assessment Noted Time PHQ-9 Depression Total Score: 8 06/12/2016 10:45 AM CD T documented as of this encounter
--- OUTSIDE RECORDS SUMMARY | 2022-04-29 07:43 | XMS_ITS | Encounter Summary ---
:1980 Author Organization [facility] Address [address] [place] [address] Care Team Providers Name Role Phone Qasim Meza P.A.-C. Primary Care Provider [phone] Reason for Visit Reason Onset Date Comments Med Refill 06/22/2017 Encounter Details Date Type Department Care Team Description 06/22/2017 Refill Department of Family Medicine, Qasim oakley P.A.-C. 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 PCP - General 01/22/17 08/24/[address] [place] [phone] documented as of this encounter
--- OUTSIDE RECORDS SUMMARY | 2022-04-29 07:43 | XMS_ITS | Encounter Summary ---
:1980 Author Organization [facility] Address [address] [place] [address] Care Team Providers Name Role Phone Qasim Meza P.A.-C. Primary Care Provider [phone] Encounter Details Date Type Department Care Team Description 07/31/2017 Orders Only Department of Family Qasim Meza, Medicine, [facility], P.ARafal -CRafal in [facility] 225 [facility] [address] [place] [address] [place] [address] [phone] Social History Tobacco Use Types Packs/Day Years [...] do you attend anabaptist or Never 2021 confucianism services? 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 PCP - General 01/22/17 08/24/[address] [place] [phone] documented as of this encounter
--- OUTSIDE RECORDS SUMMARY | 2022-04-29 07:43 | XMS_ITS | Encounter Summary ---
:1980 Author Organization [facility] Address [address] [place] [address] Care Team Providers Name Role Phone Qasim Meza P.A.-C. Primary Care Provider [phone] Encounter Details Date Type Department Care Team Description 07/07/2017 Abstract Department of Family Qasim Meza, Medicine, [facility], PMaki Campos in [facility] [address] [address] [place] [address] [phone] Social History Tobacco Use Types Packs/Day Years [...] do you attend hindu or Never 2021 presybeterian services? 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 PCP - General 01/22/17 08/24/18 225 [place] [address] documented as of this encounter
--- OUTSIDE RECORDS SUMMARY | 2022-04-29 07:43 | XMS_ITS | Encounter Summary ---
:1980 Author Organization [facility] Address [address] [place] [address] Care Team Providers Name Role Phone Qasim Meza P.A.-C. Primary Care Provider [phone] Reason for Visit Reason Onset Date Comments Med Refill 08/06/2017 Trazodone Encounter Details Date Type Department Care Team Description 08/06/2017 Refill Department of [facility] Qasim Meza Me d Refill (Trazodone ) Medicine in [facility] [address] [phone] (Wo rk) Social History Tobacco Use Types [...] do you attend mormonism or Never 2021 mu-ism services? 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 PCP - General 01/22/17 08/24/[address] [place] [phone] documented as of this encounter
--- OUTSIDE RECORDS SUMMARY | 2022-04-29 07:43 | XMS_ITS | Encounter Summary ---
:1980 Author Organization [facility] Address [address] [place] [address] Care Team Providers Name Role Phone Unavailable Primary Care Provider Unavailable Encounter Details Date Type Department Care Team Description 11/13/2016 Hospital Encounter HX [facility] PMTR Michael Grady M.D. [address] [place] [address], [address] [place] [address] (Wo rk) Social History Tobacco [...] do you attend uatsdin or Never 2021 sabianism services? 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 - 11/13/2016 11:34 AM CDT [id number] CHIEF COMPLAINT/REASON FOR VISIT Follow up bilateral knee pain. HISTORY OF PRESENT ILLNESS Ms. Reid returns today in followup. Since I last saw her she was seen at [facility] and had MRIs performed of [...] GRADY MD On: 11/17/2016 10:26 AM Source: [facility] MHSDOLBEYNONRADSYS Document Id: [id number] documented in this encounter Nursing Notes Collin Anthony L.P.N. - 11/24/2016 3:05 PM CDT Prior authoriztion request Verapamil Prior authorization request for Verapamil completed through Cover My Meds, initiated by the pharmacy, [place] [id number]. Time spent on form 22 minutes. Electronically Signed By: COLLIN ANTHONY LPN On: 11/24/2016 03:07 PM Source: [facility] POWERCHART Document Id: [id number] documented in this encounter Miscellaneous Notes Miscellaneous - Meri Grady M.D. - 11/13/2016 12:21 PM CDT Ambulatory Patient Summary [address] [id number] Visit Information Name: MUKUL REID [facility] Number: [id number] Current Date: 11/13/2016 12:21:14 Physicians [...] once a day fluticasone nasal (Flonase) 1 Holbrook(s), Nasal, once a day fluticasone nasal (Flonase 50 mcg/inh nasal spray) 2 Holbrook(s), Nasal, once a day gabapentin (gabapentin 300 [...] By: MERI GRADY MD Signed On:13-NOV-2016 12:20:56 Your Allergies [...] if you dont have one. Go to [email or web address] and click on Create Your Account. Then, follow the directions to complete the online form. Youll be asked for your [facility] number which you can find at the top of this document. Your Goals/Additional instructions: Source: [facility] POWERCHART Document Id: [id number] Miscellaneous - Meri Grady M.D. - 11/13/2016 12:21 PM CDT Ambulatory Discharge Medication List [address] [id number] Visit Information Name: MUKUL REID [facility] Number: [id number] Current Date: 11/13/2016 12:21:13 Attending [...] once a day fluticasone nasal (Flonase) 1 Holbrook(s), Nasal, once a day fluticasone nasal (Flonase 50 mcg/inh nasal spray) 2 Holbrook(s), Nasal, once a day gabapentin (gabapentin 300 [...] MD Signed On:13-NOV-2016 12:20:56 Additional Information: Source: [facility] POWERCHART Document Id: [id number] Miscellaneous - Magaly Dalal, LRafalP.N. - 11/13/2016 11:51 AM CDT Adult Civil Preparedness Coordinator Intake/History Adult Civil Preparedness Coordinator Intake/History Entered On: 11/13/2016 11:51 CDT Performed [...] Information Given By : Patient Languages : Sierra Leonean Is Patient Female and 13-50 no hysterectomy [...] DALAL LPN - 11/13/2016 11:51 CDT Source: [facility] POWERCHART Document Id: [id number] CDT!31 documented in this encounter Plan of Treatment Not on filedocumented as of this encounter Visit Diagnoses Not on filedocumented in this encounter Additional Health Concerns Assessment Noted Time PHQ-9 Depression Total Score: 8 06/12/2016 10:45 AM CD T documented as of this encounter
--- OUTSIDE RECORDS SUMMARY | 2022-04-29 07:43 | XMS_ITS | Encounter Summary ---
:1980 Author Organization [facility] Address [address] [place] [address] Care Team Providers Name Role Phone Qasim Meza P.A.-C. Primary Care Provider [phone] Encounter Details Date Type Department Care Team Description 04/30/2017 Hospital Encounter HX [facility] PMTR Michael Grady M.D. [address] [place] [address], [address] [place] [address] (Wo rk) Social History Tobacco [...] do you attend mandaen or Never 2021 anabaptism services? 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 - 04/30/2017 12:28 PM CDT [id number] CHIEF COMPLAINT/REASON FOR VISIT Follow up bilateral knee pain. HISTORY OF PRESENT ILLNESS Ms. Roberts returns today in followup. She reports that the bilateral knee intra-articular injections with Synvisc One she had performed at [facility] unfortunately were not overly helpful for her. [...] with respect to those exercises. 2. Ms. Roberts is limited with what she can from [...] GRADY MD On: 05/05/2017 09:43 AM Source: [facility] MHSDOLBEYNONRADSYS Document Id: [id number] documented in this encounter Nursing Notes Collin Anthony L.P.N. - 05/12/2017 1:51 PM CDT Prior authorization request Lidocaine Prior authorization request for Lidocaine completed through Cover My Meds, initiated by the pharmacy, [facility]. Time spent on form 25 minutes. Electronically Signed By: COLLIN ANTHONY LPN On: 05/12/2017 01:53 PM Source: [facility] POWERCHART Document Id: [id number] documented in this encounter Plan of Treatment Not on filedocumented as of this encounter Visit Diagnoses Not on filedocumented in this encounter Additional Health Concerns Assessment Noted Time PHQ-9 Depression Total Score: 8 06/12/2016 10:45 AM CD T documented as of this encounter Care Teams Crts Relationship Specialty Start Date End Date Qasim Meza P.A.-C. PCP - General 01/22/17 08/24/[address] [place] [phone] documented as of this encounter
--- OUTSIDE RECORDS SUMMARY | 2022-04-29 07:43 | XMS_ITS | Encounter Summary ---
:1980 Author Organization [facility] Address [address] [place] [address] Care Team Providers Name Role Phone Qasim Meza P.A.-C. Primary Care Provider [phone] Encounter Details Date Type Department Care Team Description 08/17/2017 Refill Department of Family Medicine, Qasim Ceja P.A.-C. [facility], in [address] [place] [phone] [place] [address] [place] [address] [phone] Social History Tobacco Use Types Packs/Day Years [...] do you attend amish or Never 2021 orthodoxy services? 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 PCP - General 01/22/17 08/24/[address] [place] [phone] documented as of this encounter
--- OUTSIDE RECORDS SUMMARY | 2022-04-29 07:43 | XMS_ITS | Encounter Summary ---
:1980 Author Organization [facility] Address [address] [place] [address] Care Team Providers Name Role Phone Qasim Meza P.A.-C. Primary Care Provider [phone] Reason for Visit Reason Comments Med Refill Encounter Details Date Type Department Care Team Description 07/07/2017 Refill Department of Family Medicine, Qasim Ceja P.A.-C. Med Refill [facility], in [address] [place] [phone] [place] [address] [place] [address] [phone] Social History Tobacco Use Types Packs/Day Years [...] do you attend restorationism or Never 2021 sikh services? 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 - 07/07/2017 3:47 PM CST Please see refill request. ING HEAD TENDER Telephone Encounter - Madonna Soria - 07/07/2017 2:46 PM CST Nurse review: Unable to propose medication; Med not listed on active med list. Primary Provider: Qasim Meza Name of medication: Vitamin D3 2000 Unit Cap Strength: 2000 Unit Frequency: Take one capsule by mouth once daily Quantity: 30 Refills:3 Last Refill: 02/17/2017 Pharmacy: [facility] ING HEAD TENDER documented in this encounter Plan of Treatment Not on filedocumented as of this encounter Visit Diagnoses Not on filedocumented in this encounter Additional Health Concerns Assessment Noted Time PHQ-9 Depression Total Score: 8 06/12/2016 10:45 AM CD T documented as of this encounter Care Teams Principal Technologist Relationship Specialty Start Date End Date Qasim Meza P.A.-C. PCP - General 01/22/17 08/24/[address] [place] [phone] documented as of this encounter
--- OUTSIDE RECORDS SUMMARY | 2022-04-29 07:43 | XMS_ITS | Encounter Summary ---
:1980 Author Organization [facility] Address [address] [place] [address] Care Team Providers Name Role Phone Qasim Meza P.A.-C. Primary Care Provider [phone] Reason for Visit Reason Comments Med Refill Encounter Details Date Type Department Care Team Description 08/14/2017 Refill Department of Family Medicine, Qasim Ceja P.A.-C. Med Refill [facility], in [address] [place] [phone] [place] [address] [place] [address] [phone] Social History Tobacco Use Types Packs/Day Years [...] do you attend presybeterian or Never 2021 rastafarian services? 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 PCP - General 01/22/17 08/24/[address] [place] [phone] documented as of this encounter
--- OUTSIDE RECORDS SUMMARY | 2022-04-29 07:43 | XMS_ITS | Encounter Summary ---
:1980 Author Organization [facility] Address [address] [place] [address] Care Team Providers Name Role Phone Oseas Meza P.A.-C. Primary Care Provider [phone] Reason for Visit Reason Comments Med Refill Encounter Details Date Type Department Care Team Description 08/18/2017 Refill Department of Family Medicine, Oseas Ceja P.A.-C. 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 - 08/20/2017 10:21 AM EXTRACT PULLER Addended by: OSEAS MEZA on: 08/20/2017 10:21 AM Modules accepted: Orders ACT PULLER Telephone Encounter - Collin Ann L.P.N. - 08/20/2017 9:55 AM EXTRACT PULLER Insurance will pay for name brand only and message states need to write BERTHA. Do you know if this onedone as name brand only? Thank you. ACT PULLER Telephone Encounter - Collin Ann L.P.N. - 08/18/2017 2:57 PM EXTRACT PULLER Oseas, Please see request. Thank you. ACT PULLER Telephone Encounter - Bhavani Chavira - 08/18/2017 2:52 PM CST Nurse Review: Pharmacy Communication Provider: Oseas Meza Medication: STRATTERA CAP Strength: 80mg Frequency:Take one capsule by mouth once daily in the morning Pharmacy Comment: Insurance will only cover brand name with BERTHA. Please send new Rx with BERTHA and diagnosis code. Thanks, [facility] ACT PULLER documented in this encounter Plan of Treatment Not on filedocumented as of this encounter Visit Diagnoses Not on filedocumented in this encounter Additional Health Concerns Assessment Noted Time PHQ-9 Depression Total Score: 8 06/12/2016 10:45 AM CD T documented as of this encounter Care Teams Contract Technician Relationship Specialty Start Date End Date Oseas Meza P.A.-C. PCP - General 01/22/17 08/24/[address] [place] [phone] documented as of this encounter
--- OUTSIDE RECORDS SUMMARY | 2022-04-29 07:43 | XMS_ITS | Encounter Summary ---
:1980 Author Organization [facility] Address [address] [place] [address] Care Team Providers Name Role Phone Unavailable Primary Care Provider Unavailable Encounter Details Date Type Department Care Team Description 06/26/2016 Hospital Encounter HX [facility] FBKF FAMILYPRA Akhil Meza P.A.-C. [address] [place] [address] (Wo rk) Social History Tobacco [...] do you attend judaism or Never 2021 jain services? 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/2021 7:35 PM MANAGER BUSINESS INFORMATION documented as of this encounter Last Filed Vital Signs Vital Sign Reading Time Taken Comments Blood Pressure 120/60 06/26/2016 1:23 PM MANAGER BUSINESS INFORMATION Pulse 88 06/26/2016 1:23 PM MANAGER BUSINESS INFORMATION Temperature - - Respiratory Rate 16 06/26/2016 1:23 PM MANAGER BUSINESS INFORMATION Oxygen Saturation - - Inhaled Oxygen Concentration - - Weight 91.2 kg (201 lb 1 oz) 06/26/2016 1:23 PM MANAGER BUSINESS INFORMATION Height 165 cm (5' 4.96) 06/26/2016 12:55 PM MANAGER BUSINESS INFORMATION Body Mass Index 33.5 06/26/2016 12:55 PM MANAGER BUSINESS INFORMATION documented in this encounter Medications at Time [...] Meza P.A.-C. - 06/26/2016 12:55 PM CST [id number] CHIEF COMPLAINT/REASON FOR VISIT Follow up of her seizure disorder. HISTORY OF PRESENT ILLNESS Gricelda is a 35-year-old female with a history of seizure disorder. She has been seen by Neurology in [place] in January of this year. This was [...] 25 minutes, of which 15 was in [id number] coordination of care and counseling. Oseas Meza P.A.-C./caitlyn Electronically Signed By: OSEAS MEZA PA-C On: 06/27/2016 08:21 AM Source: [facility] MHSDOLBEYNONRADSYS Document Id: [id number] GER BUSINESS INFORMATION documented in this encounter Nursing Notes Veena Shook C.MRafalARafal - 09/15/2016 10:44 AM CST Prior Authorization for Strattera Prior Authorization request for Strattera completed through cover my meds, hernandez CCKJNH time spent onrequest 20 minutes . Electronically Signed By: VEENA SHOOK CMA On: 09/15/2016 10:45 AM Source: [facility] POWERCHART Document Id: [id number] GER BUSINESS INFORMATION documented in this encounter Miscellaneous Notes Telephone Encounter - Francia Moore R.N. - 09/26/2016 10:44 AM CST refill request - gabapentin Document Contains Addenda Addendum by OSEAS MEZA PA-C on September 26, 2016 15:24:09 MANAGER BUSINESS INFORMATION From: OSEAS MEZA PA-C To: RAMON Nichols Medication Refill; Sent: 09/26/2016 15:24:09 MANAGER BUSINESS INFORMATION Subject: RE: refill request - gabapentin done From: FRANCIA MOORE RN (FB Nichols Medication Refill) To: OSEAS MEZA PA-C; Sent: 09/26/2016 10:44:27 MANAGER BUSINESS INFORMATION Subject: refill request - gabapentin Caller is: [...] to Pharmacy ( _ ) Patient will cook pickled meat Script ( _ ) Mail Rx to Patient Source: [facility] POWERCHART Document Id: [id number] Telephone Encounter - Conversion, Historical Provider Ser - 09/15/2016 4:46 PM CST *Phone Message/Oseas Meza Document Contains Addenda Addendum by SAKINA JENSEN LPN on September 15, 2016 17:02:26 MANAGER BUSINESS INFORMATION From: SAKINA JENSEN LPN ( Derrick Nurse) To: OSEAS MEZA PA-C; Sent: 09/15/2016 17:02:26 MANAGER BUSINESS INFORMATION Subject: FW: *Phone Message/Oseas Meza Addendum by SAKINA JENSEN LPN on September 15, 2016 17:02:17 MANAGER BUSINESS INFORMATION Notified Gricelda that I would forward this onto Oseas and that [place] is the closest for her to get that done From: OCHOA SÁNCHEZ ([facility] Logistics Supervisor) To: Derrick Nurse; Sent: 09/15/2016 16:46:27 MANAGER BUSINESS INFORMATION Subject: *Phone Message/Oseas Meza Caller is: ( [...] that they only do this test in [place] and they would need to schedule it for her. Please call her back at [phone] if you are able to order this [...] back cell phone number ( ) Source: [employer] Document Id: [id number] Telephone Encounter - Francia Moore R.N. - 08/06/2016 8:46 AM CST Refill request - Ambien Document Contains Addenda Addendum by SAKINA JENSEN LPN on August 06, 2016 12:01:44 MANAGER BUSINESS INFORMATION notified Gricelda Addendum by OSEAS MEZA PA-C on August 06, 2016 11:46:03 MANAGER BUSINESS INFORMATION From: OSEAS MEZA PA-C To: SAKINA JENSEN LPN; Sent: 08/06/2016 11:46:03 MANAGER BUSINESS INFORMATION Subject: FW: Refill request - Ambien done From: FRANCIA MOORE RN To: OSEAS MEZA PA-C; Sent: 08/06/2016 08:46:58 MANAGER BUSINESS INFORMATION Subject: Refill request - Ambien Caller is: [...] to Pharmacy ( _ ) Patient will cook pickled meat Script ( _ ) Mail Rx to Patient Source: [facility] POWERCHART Document Id: [id number] Electronically signed by Conversion, [facility] Fitness Teacher [id number] at 01/04/2017 12:19 AM CDT Miscellaneous - Latonia Anthony L.P.N. - 06/26/2016 1:23 PM CST Adult Water Resource Specialist Intake/History Adult Water Resource Specialist Intake/History Entered On: 06/26/2016 13:27 MANAGER BUSINESS INFORMATION Performed On: 06/26/2016 13:23 MANAGER BUSINESS INFORMATION by LATONIA ANTHONY LPN Intake Chief Complaint [...] kg LATONIA ANTHONY LPN - 06/26/2016 13:23 MANAGER BUSINESS INFORMATION General Info Information Given By : Patient Preferred Communication Mode : Verbal Languages : Egyptian Is Patient Female and 13-50 no hysterectomy : No LATONIA ANTHONY LPN - 06/26/2016 13:23 MANAGER BUSINESS INFORMATION Subjective Pain Symptoms : No LATONIA ANTHONY LPN - 06/26/2016 13:23 MANAGER BUSINESS INFORMATION Dependent Habits Exposure to Tobacco Smoke : Other: former Smoking Status : Former smoker Tobacco 2A : Yes Tobacco Use/Currently Using : No Tobacco Use/Last 30 Days : No Tobacco Use/Last 12 months : No Tobacco Last Use/Year : 1997 Alcohol Use : No LATONIA ANTHONY LPN - 06/26/2016 13:23 MANAGER BUSINESS INFORMATION Caffeine Use Grid Caffeine Use : Current Type : Chocolate, Coffee, Soft drinks Frequency : Daily Amount : 1 cup, monsters 4 per day Last Use : 06/26/2016 LATONIA ANTHONY LPN - 06/26/2016 13:23 MANAGER BUSINESS INFORMATION Recreational Drug Use Grid Drug Use : None LATONIA ANTHONY LPN - 06/26/2016 13:23 MANAGER BUSINESS INFORMATION Source: [facility] POWERCHART Document Id: [id number] MANAGER BUSINESS INFORMATION!41 GER BUSINESS INFORMATION documented in this encounter Plan of Treatment Not on filedocumented as of this encounter Visit Diagnoses Not on filedocumented in this encounter Additional Health Concerns Assessment Noted Time PHQ-9 Depression Total Score: 8 06/12/2016 10:45 AM CD T documented as of this encounter
--- OUTSIDE RECORDS SUMMARY | 2022-04-29 07:43 | XMS_ITS | Encounter Summary ---
:1980 Author Organization [facility] Address [address] [place] [address] Care Team Providers Name Role Phone Qasim Meza P.A.-C. Primary Care Provider [phone] Encounter Details Date Type Department Care Team Description 07/07/2017 Abstract Department of Family Shyann Landry R .N. Medicine, [facility], in [address] [address] Social History Tobacco Use Types [...] do you attend islam or Never 2021 protestant services? 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 PCP - General 01/22/17 08/24/18 [address] [place] [phone] documented as of this encounter
--- OUTSIDE RECORDS SUMMARY | 2022-04-29 07:43 | XMS_ITS | Encounter Summary ---
:1980 Author Organization [facility] Address [address] [place] [address] Care Team Providers Name Role Phone Unavailable Primary Care Provider Unavailable Encounter Details Date Type Department Care Team Description 10/16/2016 Hospital Encounter HX [facility] OWOC BONE DENS Akhil Meza P.A.-C. [address] [place] [address] (Wo rk) Social History Tobacco [...] do you attend methodist or Never 2021 worship services? 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/2021 7:35 PM MANUFACTURING LEADER documented as of this encounter Last Filed Vital Signs Vital Sign Reading Time Taken Comments Blood Pressure - - Pulse - - Temperature - - Respiratory Rate - - Oxygen Saturation - - Inhaled Oxygen Concentration - - Weight - - Height 165 cm (5' 4.96) 10/16/2016 10:07 AM MANUFACTURING LEADER Body Mass Index - - documented in [...] JENSEN LPN On: 02/06/2017 04:26 PM Source: [facility] POWERCHART Document Id: [id number] documented in this encounter Miscellaneous Notes Telephone Encounter - Conversion, Historical Provider Ser - 02/06/2017 3:53 PM CDT *Phone Message Document Contains Addenda Addendum by SAKINA JENSEN LPN on February 16, 2017 16:46:34 CDT Spoke with: ( _x ) Patient ( _ ) Parent ( _ ) Spouse ( _ ) Child ( ) Other: _ Call back telephone number: _[phone] Reason for Call: -_notified Gricelda that Oseas would like to see her before re- submitting referral torheumatology in [facility]. Chief Complaint: _ Patient/Caller response to [...] language for Healthcare discussion: _ Was an product picker used for this call? _ Other ( --_ ) Addendum by ROLDAN NGUYEN on February 16, 2017 15:24:12 CDT From: ROLDAN NGUYEN ( Derrick Nurse) To: RAMON Meza Nurse; Sent: 02/16/2017 15:24:12 CDT Subject: FW: *Phone Message request call back to clarify lab work she is needing done call Gricelda at [phone] Addendum by SAKINA JENSEN LPN on February 06, 2017 16:14:03 CDT done Addendum by OSEAS MEZA PA-C on February 06, 2017 16:08:23 CDT From: OSEAS MEZA PA-C To: RAMON Meza Nurse; Sent: 02/06/2017 16:08:23 CDT Subject: RE: *Phone Message please put in referral Addendum by SAKINA JENSEN LPN on February 06, 2017 16:07:04 CDT From: SAKINA JENSEN LPN (RAMON Resendez) To: OSEAS MEZA PA-C; Sent: 02/06/2017 [...] wrong orthopedically and Gricelda needs tosee a tunnel kiln firer so would like a referral to [facility] for this please..... Chief Complaint: _ [...] language for Healthcare discussion: _ Was an product picker used for this call? _ Other ( [...] Message: Patient would like an appt in [place] with a Bioinformatics Software Engineer. She would like a call back at [phone] Advice/Action: Source used: ( ) Verbalizes understanding [...] cell phone number ( ) Source: [facility] Watchwith Document Id: [id number] Miscellaneous - Oseas Meza P.A.-C. - 10/16/2016 12:23 PM CST Results Notification Document Contains Addenda Addendum by LATONIA ANTHONY LPN on October 16, 2016 13:13:55 MANUFACTURING LEADER Number is unavailable. Will try later per voice message. From: OSEAS MEZA PA-C To: LATONIA ANTHONY LPN; Sent: 10/16/2016 12:23:31 MANUFACTURING LEADER ! Show up: 10/16/2016 12:23:31 MANUFACTURING LEADER Subject: Results Notification Actions: Note to Nurse Reminder Comments: please notify patient of normal bone density scan Results: Date Result Type Result Name 10/16/2016 11:32 Radiology BD Hip/Pelvis/Spine [facility] Document Id: [id number] Electronically signed by Conversion, [facility] [employer] Buffer [id number] at 01/20/2017 5:12 AM CDT documented in this encounter Plan of Treatment Not on filedocumented as of this encounter Procedures Procedure Name Priority Date/Time Associated Diagnosis Comme nts BMD BONE DENSITY Routine 10/16/2016 10:00 AM Resu lts for this SPINE HIPS MANUFACTURING LEADER procedure are i n the results section. documented in this encounter Results BMD BONE DENSITY SPINE HIPS (10/16/2016 10:00 AM MANUFACTURING LEADER) Anatomical Region Laterality Modality Hip, Lumbar Spine N/A Radiographic Imaging Specimen (Source) Anatomical Collection Method Collection Time Re ceived Time Location / / Volume Laterality 10/16/2016 10:00 AM MANUFACTURING LEADER Addenda Addendum by Provider, Ana Murphy 10/16/2016 10:00 AM MANUFACTURING LEADER RAD^^^OW BD Hip Pelvis Spine 10/16/2016 10:00:00 Impressions 10/16/2016 11:29 AM MANUFACTURING LEADER ?? 1. Bone mineral density is within the ex pected range for age. 2. FRAX score not assessed due to patien t age. Narrative 10/16/2016 11:29 AM MANUFACTURING LEADER EXAM: BD Hip/Pelvis/Spine INDICATION: screening for osteoporosis h x of gastric bypass COMPARISON: No prior for comparison. EQUIPMENT: [email or web address] TECHNIQUE: The lumbar spine and hips wer [...] bypass COMPARISON: No prior for comparison. EQUIPMENT: [email or web address] TECHNIQUE: The lumbar spine and hips wer [...]
--- OUTSIDE RECORDS SUMMARY | 2022-04-29 07:43 | XMS_ITS | Encounter Summary ---
:[address] [facility] Address [address] [place] [address] Care Team Providers Name Role Phone Qasim Meza P.A.-C. Primary Care Provider [phone] Reason for Visit Reason Comments Med Refill Encounter Details Date Type Department Care Team Description 09/03/2017 Refill Department of Family Medicine, Qasim Ceja P.A.-C. Med Refill [facility], in [address] [place] [phone] [place] [address] [place] [address] [phone] Social History Tobacco Use Types Packs/Day Years [...] do you attend shinto or Never 2021 hindu services? 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/2021 7:35 PM CARE MANAGEMENT ASSISTANT documented as of this encounter Miscellaneous Notes Telephone Encounter - Eloisa Valdez R.N. - 09/03/2017 3:48 PM CST Pharmacy notified of Qasim' response. MANAGEMENT ASSISTANT Telephone Encounter - Eloisa Valdez R.N. - 09/03/2017 3:46 PM CST Images from the original note were not included. Qasim Meza P.A.-C. ??You 7 minutes ago (3:38 PM) I already he ordered her the 400 international units tablets. ??This should be sufficient. MANAGEMENT ASSISTANT Telephone Encounter - Teresa Vazquez - 09/03/2017 10:27 AM CST Nurse review: Unable to propose medication; Discrepancy - Dose not on med list. Primary Provider: Nadia Meza Name of medication: Vitamin D3 Strength: 2000 unit cap Frequency: Take one capsule by mouth once daily. Quantity: 30 Refills: ___ Last Refill: 02/17/2017 Pharmacy: MANAGEMENT ASSISTANT documented in this encounter Plan of Treatment Not on filedocumented as of this encounter Visit Diagnoses Not on filedocumented in this encounter Additional Health Concerns Assessment Noted Time PHQ-9 Depression Total Score: 8 06/12/2016 10:45 AM CD T documented as of this encounter Care Teams Animal Damage Control Agent Relationship Specialty Start Date End Date Qasmi Meza P.A.-C. PCP - General 01/22/17 08/24/18 [address] [place] [phone] documented as of this encounter
--- OUTSIDE RECORDS SUMMARY | 2022-04-29 07:43 | XMS_ITS | Encounter Summary ---
:1980 Author Organization [facility] Address [address] [place] [address] Care Team Providers Name Role Phone Qasim Meza P.A.-C. Primary Care Provider [phone] Reason for Visit Reason Onset Date Comments Med Refill 09/14/2017 [facility] in [place] called. They would like a phone call to approve the generic form of Strattera. [phone] ext [phone] Encounter Details Date Type Department Care Team Description 09/14/2017 Clinical Communication Department of Simon Meza ([facility] Medicine, Qasim, Pharmacy in [facility] [place] called. [facility] [place], [address] [facility] They would like a [place], [place] phone call to [address] [place] [phone] approve the [facility] [place] [phone] form of Stratt era. [phone] (Work) [phone]) [phone] Social History Tobacco Use Types Packs/Day Years [...] do you attend sabianist or Never 2021 shinto services? Do you [...] at Date Recorded Female 09/01/2021 7:35 PM LAW FIRM RECEPTIONIST documented as of this encounter Miscellaneous Notes Telephone Encounter - Collin Ann L.P.N. - 09/14/2017 4:29 PM LAW FIRM RECEPTIONIST Pharmacy is aware. Thank you. FIRM RECEPTIONIST Telephone Encounter - Qasim Meza P.A.-C. - 09/14/2017 3:13 PM LAW FIRM RECEPTIONIST I am okay with the generic Strattera. Will you please call the pharmacy? FIRM RECEPTIONIST Telephone Encounter - Dianne Roche - 09/14/2017 2:16 PM LAW FIRM RECEPTIONIST [facility] in [place] called. They would like a phone call to approve the generic form of Strattera. [phone] ext [phone] FIRM RECEPTIONIST Telephone Encounter - Shyann Landry R.N. - 09/14/2017 1:45 PM CST Please see message FIRM RECEPTIONIST Telephone Encounter - Tamera Jung - 09/14/2017 12:38 PM CST The patient said that she needs to have the refill for her ADHD med Strattera 80mg she can only havethe generic from because her insurance will only cover that [facility] in [place] FIRM RECEPTIONIST documented in this encounter Plan of Treatment Not on filedocumented as of this encounter Visit Diagnoses Not on filedocumented in this encounter Additional Health Concerns Assessment Noted Time PHQ-9 Depression Total Score: 8 06/12/2016 10:45 AM CD T documented as of this encounter Care Teams Cupola Liner Helper Relationship Specialty Start Date End Date Qasim Meza P.A.-C. PCP - General 01/22/17 08/24/[address] [place] [phone] documented as of this encounter
--- OUTSIDE RECORDS SUMMARY | 2022-04-29 07:44 | XMS_ITS | Encounter Summary ---
:1980 Author Organization [facility] Address [address] [place] [address] Care Team Providers Name Role Phone Unavailable Primary Care Provider Unavailable Encounter Details Date Type Department Care Team Description 09/07/2014 Hospital Encounter HX [facility] FBKF FAMILYPRA Akhil Meza P.A.-C. [address] [place] [address] (Wo rk) Social History Tobacco [...] do you attend judaism or Never 2021 islam services? Do you [...] at Date Recorded Female 09/01/2021 7:35 PM CAREER ORIENTATION TEACHER documented as of this encounter Last Filed Vital Signs Vital Sign Reading Time Taken Comments Blood Pressure 164/68 09/07/2014 1:46 PM CAREER ORIENTATION TEACHER Pulse 108 09/07/2014 1:46 PM CAREER ORIENTATION TEACHER Temperature - - Respiratory Rate 16 09/07/2014 1:46 PM CAREER ORIENTATION TEACHER Oxygen Saturation - - Inhaled Oxygen Concentration - - Weight 88.2 kg (194 lb 7.1 oz) 09/07/2014 1:46 PM CAREER ORIENTATION TEACHER Height 164.7 cm (5' 4.84) 09/07/2014 1:46 PM CAREER ORIENTATION TEACHER Body Mass Index 32.51 09/07/2014 1:46 PM CAREER ORIENTATION TEACHER documented in this encounter Medications at Time [...] Meza P.A.-C. - 09/07/2014 1:30 PM CST [id number] CHIEF COMPLAINT/REASON FOR VISIT Left knee pain and abdominal discomfort. HISTORY OF PRESENT ILLNESS Mukul is a 33-year-old female, who has a history of knee pain that has bothered her now for quite some time. This apparently was evaluated with an MRI at the [facility] and she was toldshe had some type of a cyst on her knee. It flares up from time to time and she did see Christal. Apparently this has been injected before. Christal recommend she follow up with Dr. Grady, but this was never done, so she comes back in to discuss this. Also 1 week ago, she began experiencing an epigastric discomfort in her left upper abdomen that radiates to her back. She was seen in the clinic up in [place] and had a slew of medical tests [...] MEZA PA-C On: 09/08/2014 08:22 AM Source: [facility] MHSDOLBEYNONRADSYS Document Id: [id number] ER ORIENTATION TEACHER documented in this encounter Miscellaneous Notes Miscellaneous - Oseas Meza P.A.-C. - 09/07/2014 3:29 PM CST Ambulatory Patient Summary [address] [id number] Visit Information Name: MUKUL REID [facility] Number: [id number] Current Date: 09/07/2014 15:29:47 Physicians [...] appointment detail needed. Your Goals/Additional instructions: Source: [facility] POWERCHART Document Id: [id number] ER ORIENTATION TEACHER Miscellaneous - Oseas Meza P.A.-C. - 09/07/2014 3:29 PM CST Ambulatory Discharge Medication List [address] [id number] Visit Information Name: MUKUL REID [facility] Number: [id number] Visit Date: 09/07/2014 15:29:46 Attending [...] PA-C Signed On:07-SEP-2014 15:29:37 Additional Information: Source: [facility] POWERCHART Document Id: [id number] ER ORIENTATION TEACHER Miscellaneous - Collin Anthony L.P.N. 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 Procurement Cost Coordinator Intake/History Adult Procurement Cost Coordinator Intake/History Entered On: 09/07/2014 13:53 CAREER ORIENTATION TEACHER Performed On: 09/07/2014 13:46 CAREER ORIENTATION TEACHER by COLLIN ANTHONY LPN Intake Chief Complaint [...] kg/m2 COLLIN ANTHONY LPN - 09/07/2014 13:46 CAREER ORIENTATION TEACHER General Info Information Given By : Patient, Spouse Preferred Communication Mode : Verbal Languages : Nicaraguan Is Patient Female and 13-50 no hysterectomy : No COLLIN ANTHONY LPN - 09/07/2014 13:46 CAREER ORIENTATION TEACHER Subjective Pain Symptoms : Yes COLLIN ANTHONY LPN - 09/07/2014 13:46 CAREER ORIENTATION TEACHER Pain Scale Pain Scale Verbal 0-10 : Open COLLIN ANTHONY LPN - 09/07/2014 13:46 CAREER ORIENTATION TEACHER Pain Pain Assessment Grid Pain 1 Pain 2 Location : Knee Chest Laterality : Left Other: middle Intensity : 7 10 Duration : chronic 08/30/13 COLLIN ANTHONY LPN - 09/07/2014 13:46 CAREER ORIENTATION TEACHER COLLIN ANTHONY LPN - 09/07/2014 13:46 CAREER ORIENTATION TEACHER Dependent Habits Tobacco Use/Currently Using : No Tobacco Use/Last 12 months : No Tobacco Use/Advised to Quit : No Exposure to Tobacco Smoke : Other: former Smoking Status : Former smoker COLLIN ANTHONY LPN - 09/07/2014 13:46 CAREER ORIENTATION TEACHER Tobacco Use Grid Last Use : 1997 COLLIN ANTHONY LPN 09/07/2014 13:46 CAREER ORIENTATION TEACHER Alcohol Use : Yes COLLIN ANTHONY LPN 09/07/2014 13:46 CAREER ORIENTATION TEACHER Caffeine Use Grid Caffeine Use : Current Type : Chocolate, Coffee, Soft drinks Frequency : Daily Last Use : 09/07/14 COLLIN ANTHONY LPN - 09/07/2014 13:46 CAREER ORIENTATION TEACHER Recreational Drug Use Grid Drug Use : None COLLIN ANTHONY LPN - 09/07/2014 13:46 CAREER ORIENTATION TEACHER ID Screen Drug Resistant Organism : No Travel Within Last 21 Days : No COLLIN ANTHONY LPN - 09/07/2014 13:46 CAREER ORIENTATION TEACHER Source: [employer] Document Id: [id number] CAREER ORIENTATION TEACHER!63 ER ORIENTATION TEACHER Miscellaneous - Collin Anthony L.P.N. - 09/07/2014 1:46 PM CST PHQ-9 PHQ-9 Entered On: 09/07/2014 13:53 CAREER ORIENTATION TEACHER Performed On: 09/07/2014 13:46 CAREER ORIENTATION TEACHER by COLLIN ANTHONY LPN PHQ-9 Little interest [...] all COLLIN ANTHONY LPN - 09/07/2014 13:46 CAREER ORIENTATION TEACHER Source: [employer] Document Id: [id number] CAREER ORIENTATION TEACHER!13 ER ORIENTATION TEACHER documented in this encounter Plan of Treatment Not on filedocumented as of this encounter Visit Diagnoses Not on filedocumented in this encounter
--- OUTSIDE RECORDS SUMMARY | 2022-04-29 07:44 | XMS_ITS | Encounter Summary ---
:1980 Author Organization [facility] Address [address] [place] [address] Care Team Providers Name Role Phone Unavailable Primary Care Provider Unavailable Encounter Details Date Type Department Care Team Description 12/11/2015 Hospital Encounter HX [facility] FBEX XPRESSCAR Vickie Marvin L, P.A.-C. [address] [facility] [address] [place], [place] [address] (Wo rk) Social History [...] do you attend episcopalian or Never 2021 church services? Do you [...] at Date Recorded Female 09/01/2021 7:35 PM COP documented as of this encounter Last Filed [...] Marvin P.A.-C. - 12/11/2015 4:07 PM CDT [id number] [facility] PATIENT NAME: Gricelda Roberts CHIEF COMPLAINT/REASON FOR VISIT Possible sinus infection HISTORY OF PRESENT ILLNESS Gricelda is a 35-year-old female who presents with a sinus infection for the last 2 weeks. She was seenat in the [facility] approximately 1 week ago and given a [...] adequate oral hydration, humidifier, hot showers, and lmhz-nzm-ectsvsu mucolytics as needed. Follow up with primary care provider in the next 3 to 5 days if symptoms unchanged. Eri Ramos/giovanna Electronically Signed By: TANK MARVIN PA-C On: 12/12/2015 02:56 PM Modified by and Electronically Signed by: TANK MARVIN PA-C On: 12/12/2015 02:56 PM Source: [facility] MHSDOLBEYNONRADSYS Document Id: [id number] documented in this encounter Miscellaneous Notes Miscellaneous - Zaid Catalan C.M.A. - 12/11/2015 4:13 PM CDT Adult Distribution Center Assistant Intake/History Adult Distribution Center Assistant Intake/History Entered On: 12/11/2015 16:17 CDT Performed On: 12/11/2015 16:13 CDT by ZAID CATALAN [facility] Intake Chief Complaint : Diagnosed with sinus [...] ft 5 inch(es), 65 inch(es)) ZAID CATALAN [facility] - 12/11/2015 16:13 CDT General Info Information Given By : Patient Languages : Citizen Of [place] Is Patient Female and 13-50 no hysterectomy : No ZAID CATALAN [facility] 12/11/2015 16:13 CDT Subjective Pain Symptoms : Yes ZAID CATALAN [facility] 12/11/2015 16:13 CDT Pain Scale Pain Scale Verbal 0-10 : Open ZAID CATALAN [facility] 12/11/2015 16:13 CDT Pain Pain Assessment Grid Pain 1 Location : Other: Upper mouth, right side. Has a plate. Laterality : Right ZAID CATALAN [facility] 12/11/2015 16:13 CDT Dependent Habits Exposure to Tobacco Smoke : Other: former Smoking Status : Never smoker Tobacco 2A : No Tobacco Use/Currently Using : No Tobacco Use/Last 30 Days : No Tobacco Use/Last 12 months : No ZAID CATALAN [facility] 12/11/2015 16:13 CDT Caffeine Use Grid Caffeine Use : Current Type : Chocolate, Coffee, Soft drinks Frequency : Daily Amount : 1 cup, monsters 4 per day Last Use : 02/07/15 ZAID CATALAN [facility] - 12/11/2015 16:13 CDT Recreational Drug Use Grid Drug Use : None ZAID CATALAN [facility] - 12/11/2015 16:13 CDT Source: [facility] [employer] Document Id: [id number] CDT!46 documented in this encounter Plan of Treatment Not on filedocumented as of this encounter Visit Diagnoses Not on filedocumented in this encounter Additional Health Concerns Assessment Noted Time PHQ-9 Depression Total Score: 8 10/01/2015 2:45 PM COP documented as of this encounter
--- OUTSIDE RECORDS SUMMARY | 2022-04-29 07:44 | XMS_ITS | Encounter Summary ---
:1980 Author Organization [facility] Address [address] [place] [address] Care Team Providers Name Role Phone Unavailable Primary Care Provider Unavailable Encounter Details Date Type Department Care Team Description 12/27/2014 Hospital Encounter HX [facility] FBCV PMTR Michael Grady M.D. [address] [place] [address], [address] [place] [address] (Wo rk) Social History Tobacco [...] do you attend baptist or Never 2021 mandaeism services? 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 documented as of this encounter Last [...] GRADY MD On: 12/28/2014 03:07 PM Source: [facility] MHSDOLBEYNONRADSYS Document Id: [id number] documented in this encounter Miscellaneous Notes Miscellaneous [...] Patient ( ) ( ) Call for Tufter ( ) Follow up on Results ( ) Other: PROVIDER: ( ) Call Physician ( ) Call Pharmacist ( ) Call Lab ( ) Other: Special Instructions: Comments: Source: [facility] POWERCHART Document Id: [id number] Electronically signed by [facility] Nuclear Equipment Design Engineer [id number] at 01/05/2017 9:24 AM CDT Miscellaneous - Meri Grady M.D. - 12/27/2014 2:28 PM CDT Ambulatory Patient Summary [address] [id number] Visit Information Name: GRICELDA REID [facility] Number: [id number] Current Date: 12/27/2014 14:28:46 Physicians [...] appointment detail needed. Your Goals/Additional instructions: Source: [facility] GLSS Document Id: [id number] Miscellaneous - Meri Grady M.D. - 12/27/2014 2:28 PM CDT Ambulatory Discharge Medication List [facility] [address] [place] [id number] Visit Information Name: GRICELDA REID [facility] Number: [id number] Visit Date: 12/27/2014 14:28:45 Attending [...] MD Signed On:27-DEC-2014 14:28:18 Additional Information: Source: [facility] POWERCHART Document Id: [id number] Miscellaneous - Cristin Eugene - 12/27/2014 2:01 PM CDT Adult Table Inspector Intake/History Document Has Been Updated Adult Table Inspector Intake/History Entered On: 12/27/2014 14:02 CDT Performed [...] Preferred Communication Mode : Verbal Languages : Finnish Is Patient Female and 13-50 no hysterectomy [...] CRISTIN Rosas - 12/27/2014 14:01 CDT Source: [facility] GLSS Document Id: [id number] CDT!37 documented in this encounter Plan of Treatment Not on filedocumented as of this encounter Visit Diagnoses Not on filedocumented in this encounter
--- OUTSIDE RECORDS SUMMARY | 2022-04-29 07:44 | XMS_ITS | Encounter Summary ---
:1980 Author Organization [facility] Address [address] [place] [address] Care Team Providers Name Role Phone Unavailable Primary Care Provider Unavailable Encounter Details Date Type Department Care Team Description 03/21/2015 Hospital Encounter [facility]X [facility] FBCV PMTR Michael Grady M.D. [address] [place] [address], [address] [place] [address] (Wo rk) Social History Tobacco [...] do you attend sabianism or Never 2021 sabianism services? 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 - 03/21/2015 12:45 PM CDT [id number] CHIEF COMPLAINT/REASON FOR VISIT Followup of left [...] initiating swimming as well as using elliptical dog handler or trainer. She has just joined the [employer] Challenge at [employer] and has been losing a significant [...] GRADY MD On: 03/22/2015 09:42 AM Source: [facility] MHSDOLBEYNONRADSYS Document Id: [id number] documented in this encounter Miscellaneous Notes Telephone Encounter - Conversion, Historical Provider Ser - 07/20/2015 10:15 AM CST *Phone Message/Dr. Grady Document Contains Addenda Addendum by RAJESH DALAL LPN on 23 July 2015 09:37:15 CONSTRUCTION AREA MANAGER Patient added to waiting list. From: OCHOA SÁNCHEZ ([facility] Acid Wash Operator) To: Physical Medicine and Rehabilitation Staff; Sent: 07/20/2015 10:15:07 CONSTRUCTION AREA MANAGER Subject: *Phone Message/Dr. Grady Caller is: ( [...] a cancellation list. Please call her at [phone] if anything opens up sooner. Advice/Action: Source [...] back cell phone number ( ) Source: [facility] POWERCHART Document Id: [id number] Miscellaneous - Meri Grady M.D. - 03/21/2015 2:13 PM CDT Ambulatory Patient Summary [address] [id number] Visit Information Name: GRICELDA REID LINUS [facility] Number: [id number] Current Date: 03/21/2015 14:13:01 Physicians [...] Date Time Location Provider 04/10/2015 16:30 FBCV LEGAL OFFICER Jhoan FLORES, Nemesio Ochoa Attention: Contact your [...] if you dont have one. Go to [email or web address] and click on Create Your Account. Then, follow the directions to complete the online form. Youll be asked for your [facility] number which you can find at the top of this document. Your Goals/Additional instructions: Source: [facility] POWERCHART Document Id: [id number] Miscellaneous - Meri Grady M.D. - 03/21/2015 2:13 PM CDT Ambulatory Discharge Medication List [address] [id number] Visit Information Name: GRICELDA REID [facility] Number: [id number] Visit Date: 03/21/2015 14:13:00 Attending [...] MD Signed On:21-MAR-2015 14:12:44 Additional Information: Source: [facility] POWERCHART Document Id: [id number] Miscellaneous - Tamara Gilbert C.MMaki - 03/21/2015 12:51 PM CDT Adult Multigraph Operator Intake/History Adult Multigraph Operator Intake/History Entered On: 03/21/2015 12:54 CDT Performed [...] Information Given By : Patient Languages : Mongolian Is Patient Female and 13-50 no hysterectomy [...] TAMARA GILBERT - 03/21/2015 12:51 CDT Source: [employer] Document Id: [id number] CDT!33 documented in this encounter Plan of Treatment Not on filedocumented as of this encounter Visit Diagnoses Not on filedocumented in this encounter
--- OUTSIDE RECORDS SUMMARY | 2022-04-29 07:44 | XMS_ITS | Encounter Summary ---
:1980 Author Organization [facility] Address [address] [place] [address] Care Team Providers Name Role Phone Unavailable Primary Care Provider Unavailable Encounter Details Date Type Department Care Team Description 06/25/2015 Hospital Encounter [facility]X [facility] FBEX XPRESSCAR Vickie Marvin L, P.A.-C. [address] [facility] [address] [place], [place] [address] (Wo rk) Social History [...] do you attend orthodox or Never 2021 mandaen services? 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 - 06/25/2015 1:52 PM CST [id number] [facility] PATIENT NAME: Mukul CHIEF COMPLAINT/REASON [...] MARVIN PA-C On: 06/25/2015 03:01 PM Source: [facility] MHSDOLBEYNCAIT Document Id: [id number] RONMENTAL HEALTH AND SAFETY LEADER documented in this encounter Miscellaneous Notes Miscellaneous - Tank Marvin P.A.-C. - 06/25/2015 2:29 PM CST Ambulatory Patient Summary [facility] Care [facility] [address] [place], [place] [phone] Visit Information Name: MUKUL REID [facility] Number: [id number] Current Date: 06/25/2015 14:29:57 Physicians [...] day x 7 day(s) New Routed to [address] [id number] busPIRone (busPIRone 30 mg oral tablet) 1 [...] as needed for cough New Routed to [place] cyanocobalamin (Vitamin B12 1000 mcg/mL injectable solution) 1,000 mcg, Intramuscular, once a month fluticasone nasal (Flonase 50 mcg/inh nasal spray) 1 Laporte(s), Nostrils(Both), two times a day New Routed to [address] [id number] levothyroxine (levothyroxine 75 mcg (0.075 mg) oral [...] dont have one. Go to [email or web address] and click on Create Your Account. Then, follow the directions to complete the online form. Youll be asked for your [facility] number which you can find at the top of this document. Your Goals/Additional instructions: Source: [facility] POWERCHART Document Id: [id number] RONMENTAL HEALTH AND SAFETY LEADER Miscellaneous - Tank Marvin P.A.-C. - 06/25/2015 2:29 PM CST Ambulatory Discharge Medication List [facility] Care [facility] [address] [place], [place] [id number] Visit Information Name: MUKUL REID [facility] Number: [id number] Visit Date: 06/25/2015 14:29:55 Attending [...] day x 7 day(s) New Routed to [address] [id number] busPIRone (busPIRone 30 mg oral tablet) 1 [...] as needed for cough New Routed to [place] cyanocobalamin (Vitamin B12 1000 mcg/mL injectable solution) 1,000 mcg, Intramuscular, once a month fluticasone nasal (Flonase 50 mcg/inh nasal spray) 1 Laporte(s), Nostrils(Both), two times a day New Routed to [facility] [address] [place], [place] [id number] levothyroxine (levothyroxine 75 mcg (0.075 mg) oral [...] Signed By: Signed On: Additional Information: Source: [facility] POWERCHART Document Id: [id number] RONMENTAL HEALTH AND SAFETY LEADER Miscellaneous - Trista Merida C.M.A. - 06/25/2015 1:59 PM CST Adult Head Of Measurement & Insights Intake/History Adult Head Of Measurement & Insights Intake/History Entered On: 06/25/2015 14:04 ENVIRONMENTAL HEALTH AND SAFETY LEADER Performed On: 06/25/2015 13:59 ENVIRONMENTAL HEALTH AND SAFETY LEADER by TRISTA MERIDA [facility] Intake Chief Complaint : Stuffy nose, drainage [...] Oxygen Therapy : Room air TRISTA MERIDA [facility] - 06/25/2015 13:59 ENVIRONMENTAL HEALTH AND SAFETY LEADER General Info Information Given By : Patient Languages : Greenlandic Is Patient Female and 13-50 no hysterectomy : No TRISTA MERIDA CMA - 06/25/2015 13:59 ENVIRONMENTAL HEALTH AND SAFETY LEADER Subjective Pain Symptoms : Yes TRISTA MERIDA CMA - 06/25/2015 13:59 ENVIRONMENTAL HEALTH AND SAFETY LEADER Pain Scale Pain Scale Verbal 0-10 : Open TRISTA MERIDA [facility] 06/25/2015 13:59 ENVIRONMENTAL HEALTH AND SAFETY LEADER Pain Pain Assessment Grid Pain 1 Pain 2 Location : Other: sinus pressure Head TRISTA MERIDA [facility] - 06/25/2015 13:59 ENVIRONMENTAL HEALTH AND SAFETY LEADER TRISTA MERIDA [facility] 06/25/2015 13:59 ENVIRONMENTAL HEALTH AND SAFETY LEADER Dependent Habits Tobacco Use/Currently Using : No Exposure to Tobacco Smoke : Other: former Smoking Status : Former smoker TRISTA MERIDA [facility] 06/25/2015 13:59 ENVIRONMENTAL HEALTH AND SAFETY LEADER Caffeine Use Grid Caffeine Use : Current Type : Chocolate, Coffee, Soft drinks Frequency : Daily Amount : 1 cup, monsters 4 per day Last Use : 02/07/15 TRISTA MERIDA [facility] 06/25/2015 13:59 ENVIRONMENTAL HEALTH AND SAFETY LEADER Recreational Drug Use Grid Drug Use : None TRISTA MERIDA [facility] 06/25/2015 13:59 ENVIRONMENTAL HEALTH AND SAFETY LEADER [facility] Document Id: [id number] ENVIRONMENTAL HEALTH AND SAFETY LEADER!43 RONMENTAL HEALTH AND SAFETY LEADER documented in this encounter Plan of Treatment Not on filedocumented as of this encounter Visit Diagnoses Not on filedocumented in this encounter
--- OUTSIDE RECORDS SUMMARY | 2022-04-29 07:44 | XMS_ITS | Encounter Summary ---
:1980 Author Organization [facility] Address [address] [place] [address] Care Team Providers Name Role Phone Unavailable Primary Care Provider Unavailable Encounter Details Date Type Department Care Team Description 02/08/2015 Hospital Encounter HX [facility] FBKF FAMILYPRA Akhil Meza P.A.-C. [address] [place] [address] (Wo rk) Social History Tobacco [...] do you attend hinduism or Never 2021 restorationist services? 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 - 02/08/2015 10:44 AM CDT [id number] CHIEF COMPLAINT/REASON FOR VISIT Concern about hypoglycemia. [...] set her up to see Endocrinology in [place]. Any further questions or problems, she will let us know. I also did write for her and have a blood sugar monitor and I will have her check these when she is symptomatic and keeptrack of them for her appointment in [place]. Oseas Meza PA-C/caitlyn Electronically Signed By: OSEAS MEZA PA-C On: 02/08/2015 03:29 PM Source: [facility] MHSDOLBEYNONRADSYS Document Id: [id number] documented in this encounter Nursing Notes Cristin Eugene - 02/07/2015 1:38 PM CDT No Show Patient failed appointment with Dr. Grady on 02-07-15. Electronically Signed By: CRISTIN EUGENE On: 02/07/2015 01:38 PM Source: [facility] POWERCHART Document Id: [id number] documented in this encounter Miscellaneous Notes Miscellaneous - Oseas Meza P.A.-C. - 02/12/2015 9:37 AM CDT Normal Results Letter 12 February 2015 MUKUL REID [address] [facility] [id number] Dear MUKUL REID, I am pleased to [...] - 4.4 - Sincerely, OSEAS MEZA [address] [place] [address] Electronic Signature Electronically Signed By: OSEAS MEZA PA-C On: 12 February 2015 This document has images extracted. Source: [facility] POWERCHART Document Id: [id number] Electronically signed by Conversion [facility] Inside Sales Advisor [id number] at 01/04/2017 7:00 PM CDT Miscellaneous - Oseas Meza P.A.-C. - 02/08/2015 12:11 PM CDT Ambulatory Patient Summary [facility] [address] [place], [place] [phone] Visit Information Name: MUKUL REID [facility] Number: [id number] Current Date: 02/08/2015 12:11:11 Physicians [...] if you dont have one. Go to [email or web address] and click on Create Your Account. Then, follow the directions to complete the online form. Youll be asked for your [facility] number which you can find at the top of this document. Your Goals/Additional instructions: Source: [facility] POWERCHART Document Id: [id number] Miscellaneous - Oseas Meza P.A.-C. - 02/08/2015 12:11 PM CDT Ambulatory Discharge Medication List [address] [id number] Visit Information Name: MUKUL REID [facility] Number: [id number] Visit Date: 02/08/2015 12:11:09 Attending [...] PA-C Signed On:08-FEB-2015 12:11:02 Additional Information: Source: [facility] [employer] Document Id: [id number] Alex - Collin Anthony L.P.N. - 02/08/2015 [...] ANTHONY LPN - 02/08/2015 11:10 CDT Source: [facility] [employer] Document Id: [id number] CDT!8 Alex - Collin Anthony L.P.N. - 02/08/2015 11:02 AM CDT Adult Business Division Chair Intake/History Adult Business Division Chair Intake/History Entered On: 02/08/2015 11:09 CDT Performed [...] Preferred Communication Mode : Verbal Languages : Czech Is Patient Female and [...] day Last Use : 02/07/15 COLLIN ANTHONY SFDC DEVELOPER - 02/08/2015 11:02 CDT Recreational Drug Use Grid Drug Use : None COLLIN ANTHONY LPN - 02/08/2015 11:02 CDT Source: [facility] POWERCHART Document Id: [id number] CDT!55 documented in this encounter Plan of [...] 4.4 POWERCHART NGML Comment: Test Performed by: [place] [id number] Tunnel Elastic Operator Chainstitch: Alfonzo Nieves II, M.D., Ph.D. Specimen (Source) [...] Laterality Blood 02/08/2015 11:35 AM CDT Oseas Mzea P.A.-C. LAB BLOOD ADD-ON Performing Organization Address City/State/ZIP Code Phon e Number POWERCHART (ABNORMAL) CMP (Comprehensive Metabolic Panel) (02/08/2015 11:35 AM CDT) [facility] gist Method Time Signature Alkaline 60 [...] POWERCHART GDL HXeGFR (MDRD) >60 >=60 POWERCHART [id number] 2 eGFR Black/ >60 >=60 POWERCHART [place] [id number] Specimen (Source) Anatomical Collection Method Collection Time Re ceived Time Location / / Volume Laterality Blood 02/08/2015 11:35 AM CDT Oseas Meza P.A.-C. LAB BLOOD ADD-ON Performing Organization Address City/State/ZIP Code Phon e Number POWERCHART documented in this encounter Visit Diagnoses Not on filedocumented in this encounter
--- OUTSIDE RECORDS SUMMARY | 2022-04-29 07:44 | XMS_ITS | Encounter Summary ---
:1980 Author Organization [facility] Address [address] [place] [address] Care Team Providers Name Role Phone Unavailable [...] many times do you More than three jemran es a week 09/02/2021 talk on the phone with family, friends, or neighbors? How often do you get together with friends More than three t imes a week 09/02/2021 or relatives? How often do you attend rastafari or Never 2021 yarsani services? 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
--- OUTSIDE RECORDS SUMMARY | 2022-04-29 07:44 | XMS_ITS | Encounter Summary ---
:1980 Author Organization [facility] Address [address] [place] [address] Care Team Providers Name Role Phone Unavailable Primary Care Provider Unavailable Encounter Details Date Type Department Care Team Description 11/29/2014 Hospital Encounter HX [facility] FBHB FAMILYPRA Akhil Wilson P.A.-C. [address] [place] [address] (Wo rk) Social History Tobacco [...] do you attend sabianist or Never 2021 judaism services? 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 - 11/29/2014 11:19 AM CDT [id number] CHIEF COMPLAINT/REASON FOR VISIT Knee pain. HISTORY [...] WILSON PA-C On: 11/29/2014 05:15 PM Source: [facility] MHSDOLBEYNONRADSYS Document Id: [id number] documented in this encounter Miscellaneous Notes Miscellaneous - Oseas Wilson P.A.-C. - 11/29/2014 12:41 PM CDT Ambulatory Patient Summary [place] [address] [facility] [place], [place] [id number] Visit Information Name: JEANETTE GRICELDA LINUS [facility] Number: [id number] Current Date: 11/29/2014 12:41:22 Physicians [...] 1,000 mcg, Intramuscular, once a month HYDROcodone-acetaminophen ([place] 5 mg-325 mg oral tablet) 1 Tablet(s), [...] appointment detail needed. Your Goals/Additional instructions: Source: [facility] POWERCHART Document Id: [id number] Miscellaneous - Oseas Wilson P.A.-C. - 11/29/2014 12:41 PM CDT Ambulatory Discharge Medication List [address] [id number] Visit Information Name: GRICELDA REID [facility] Number: [id number] Visit Date: 11/29/2014 12:41:20 Attending [...] 1,000 mcg, Intramuscular, once a month HYDROcodone-acetaminophen ([place] 5 mg-325 mg oral tablet) 1 Tablet(s), [...] PA-C Signed On:29-NOV-2014 12:41:13 Additional Information: Source: [facility] POWERCHART Document Id: [id number] Miscellaneous - Sakina Jensen L.P.N. - 11/29/2014 11:29 AM CDT Adult Senior Net Developer Architect Intake/History Adult Senior Net Developer Architect Intake/History Entered On: 11/29/2014 11:33 CDT Performed [...] Information Given By : Patient Languages : Djiboutian Is Patient Female and 13-50 no hysterectomy [...] No SAKINA JENSEN 11/29/2014 11:29 CDT Source: [employer] POWERCHART Document Id: [id number] CDT!49 documented in this encounter Plan of Treatment Not on filedocumented as of this encounter Visit Diagnoses Not on filedocumented in this encounter
--- OUTSIDE RECORDS SUMMARY | 2022-04-29 07:44 | XMS_ITS | Encounter Summary ---
:1980 Author Organization [facility] Address [address] [place] [address] Care Team Providers Name Role Phone Unavailable Primary Care Provider Unavailable Encounter Details Date Type Department Care Team Description 12/07/2014 Hospital Encounter HX [facility] FBKF FAMILYPRA Akhil Wilson P.A.-C. 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 - 12/07/2014 10:02 AM CDT [id number] CHIEF COMPLAINT/REASON FOR VISIT Knee pain. HISTORY [...] WILSON PA-C On: 12/07/2014 02:23 PM Source: [facility] MHSDOLBEYNONRADSYS Document Id: [id number] documented in this encounter Miscellaneous Notes Miscellaneous - Oseas Wilson P.A.-C. - 12/07/2014 11:39 AM CDT Ambulatory Patient Summary [address] [id number] Visit Information Name: MUKUL REID [facility] Number: [id number] Current Date: 12/07/2014 11:39:04 Physicians [...] appointment detail needed. Your Goals/Additional instructions: Source: [facility] POWERCHART Document Id: [id number] Miscellaneous - Oseas Wilson P.A.-C. - 12/07/2014 11:39 AM CDT Ambulatory Discharge Medication List [address] [id number] Visit Information Name: MUKUL REID [facility] Number: [id number] Visit Date: 12/07/2014 11:39:02 Attending [...] PA-C Signed On:07-DEC-2014 11:38:58 Additional Information: Source: [facility] POWERCHART Document Id: [id number] Miscellaneous - Collin Anthony LRafalP.N. - 12/07/2014 10:05 AM CDT Adult Telephone Diaphragm Assembler Intake/History Adult Telephone Diaphragm Assembler Intake/History Entered On: 12/07/2014 10:09 CDT Performed [...] Preferred Communication Mode : Verbal Languages : Yakut Is Patient Female and 13-50 no hysterectomy [...] ANTHONY LPN - 12/07/2014 10:05 CDT Source: [employer] Document Id: [id number] CDT!54 Miscellaneous - Collin Anthony L.P.N. - [...] ANTHONY LPN - 12/07/2014 10:35 CDT Source: [employer] Document Id: [id number] CDT!13 documented in this encounter Plan of Treatment Not on filedocumented as of this encounter Visit Diagnoses Not on filedocumented in this encounter
--- OUTSIDE RECORDS SUMMARY | 2022-04-29 07:44 | XMS_ITS | Encounter Summary ---
:1980 Author Organization [facility] Address [address] [place] [address] Care Team Providers Name Role Phone Unavailable Primary Care Provider Unavailable Encounter Details Date Type Department Care Team Description 01/22/2016 Hospital Encounter HX [facility] FBKF LAB Akhil Meza P.A.-C. [address] [place] [address] (Wo rk) Social History [...] do you attend christianity or Never 2021 zoroastrian services? 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 From: FRANCIA CROSS ([facility]) To: RAMON Meza Nurse; Sent: 12/21/2015 12:43:33 CDT Subject: *Phone Message Caller is: ( x ) Patient ( ) Mother ( ) Father ( ) Spouse ( ) Daughter ( ) Son ( ) Pharmacy ( ) Other: Physician: Patient MRN #: Reason for Call: Message: Patient called in and wants to change her sleep medication. Please call her at [phone] Advice/Action: Source used: ( ) Verbalizes understanding [...] back cell phone number ( ) Source: [facility] POWERCHART Document Id: [id number] documented in this encounter Plan of Treatment [...] Depression Total Score: 8 10/01/2015 2:45 PM SEARCH CONSULTANT documented as of this encounter
--- OUTSIDE RECORDS SUMMARY | 2022-04-29 07:44 | XMS_ITS | Encounter Summary ---
:1980 Author Organization [facility] Address [address] [place] [address] Care Team Providers Name Role Phone Unavailable Primary Care Provider Unavailable Encounter Details Date Type Department Care Team Description 12/25/2014 Hospital Encounter HX [facility] FBCV PMTR Michael Grady M.D. [address] [place] [address], [address] [place] [address] (Wo rk) Social History Tobacco [...] do you attend evangelical or Never 2021 jehovah's witness services? 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 - 12/25/2014 2:24 PM CDT [id number] CHIEF COMPLAINT/REASON FOR VISIT Left knee pain. [...] after she fell on the ice in [place]. She describes this pain as primarily located [...] left knee on December 04, 2014, at [facility]. This showed chondromalacia and intermediate grade fissuring [...] 12/25. SOCIAL HISTORY Ms. Reid lives in [place]. 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 PHYSICAL EXAMINATION GENERAL: [...] Meri Grady M.D./caitlyn cc: Oseas Wilson PA-C [facility] in [address] [address] Electronically Signed By: MERI GRADY MD On: 12/27/2014 02:43 PM Modified by and Electronically Signed by: MERI GRADY MD On: 12/27/2014 02:43 PM Source: [facility] MHSDOLBEYNONRADSYS Document Id: [id number] documented in this encounter Miscellaneous Notes Miscellaneous - Meri Grady M.D. - 12/25/2014 3:30 PM CDT Ambulatory Patient Summary [address] [id number] Visit Information Name: MUKUL REID [facility] Number: [id number] Current Date: 12/25/2014 15:30:07 Physicians [...] appointment detail needed. Your Goals/Additional instructions: Source: [facility] POWERCHART Document Id: [id number] Miscellaneous - Meri Grady M.D. - 12/25/2014 3:30 PM CDT Ambulatory Discharge Medication List [address] [id number] Visit Information Name: MUKUL REID [facility] Number: [id number] Visit Date: 12/25/2014 15:30:06 Attending [...] MD Signed On:25-DEC-2014 15:29:46 Additional Information: Source: [facility] Bib + Tuck Document Id: [id number] Miscellaneous - Natalee Eugene Ralph - 12/25/2014 2:58 PM CDT Adult Functional Consultant Intake/History Adult Functional Consultant Intake/History Entered On: 12/25/2014 14:59 CDT Performed [...] NATALEE EUGENE Ralph 12/25/2014 14:58 CDT Source: [facility] Bib + Tuck Document Id: [id number] CDT!37 documented in this encounter Plan of Treatment Not on filedocumented as of this encounter Visit Diagnoses Not on filedocumented in this encounter
--- OUTSIDE RECORDS SUMMARY | 2022-04-29 07:44 | XMS_ITS | Encounter Summary ---
:1980 Author Organization [facility] Address [address] [place] [address] Care Team Providers Name Role Phone Unavailable Primary Care Provider Unavailable Encounter Details Date Type Department Care Team Description 12/27/2015 Hospital Encounter HX [facility] FBKF FAMILYPRA Akhil Wilson P.A.-C. [address] [place] [address] (Wo rk) Social History Tobacco [...] do you attend anabaptism or Never 2021 pentecostal services? 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 - 12/27/2015 12:46 PM CDT [id number] REVISION HISTORY 12/28/2015 at 2:57 PM - [...] it was in coordination of care and qfgu-nu-cyfe counseling. Oseas Wilson PA-C/caitlyn Electronically Signed By: OSEAS WILSON PA-C On: 12/28/2015 09:12 AM Oseas Wilson PA-C/erin Electronically Signed By: OSEAS WILSON PA-C On: 12/28/2015 09:12 AM Co-Signed By: OSEAS WILSON PA-C On: 12/28/2015 03:09 PM Source: [facility] [email or web address] Document Id: [id number] documented in this encounter Miscellaneous Notes Telephone [...] to take something else for pain please [phone] From: OHCOA SÁNCHEZ ([facility] Addictions Therapist) To: RAMON Wilson Nurse; Sent: 02/13/2016 14:23:08 [...] something else. She needs to come to [place] shortly and doesn't want to have to make two trips. Please call her back at [phone] to advise. Advice/Action: Source used: ( ) [...] back cell phone number ( ) Source: [facility] POWERCHART Document Id: [id number] Miscellaneous - Kenia Klein R.N. 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 POWERCHART Document Id: [id number] Electronically signed by Rbuy [facility] Perl Software Engineer [id number] at 01/03/2017 2:48 PM CDT Miscellaneous - Kenia Klein RIsiah - 01/14/2016 9:26 AM CDT strattera Document Contains Addenda Addendum by KENIA KLEIN RN on January 14, 2016 11:58:02 CDT Pharmacy aware. Addendum by OSEAS WILSON PA-C on January 14, 2016 10:56:09 CDT From: OSEAS WILSON PA-C To: [place] Medication Refill; Sent: 01/14/2016 10:56:09 CDT Subject: RE: strattera This hasn't been filled for a long time. 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 POWERCHART Document Id: [id number] Electronically signed by Ruby [facility] Perl Software Engineer [id number] at 01/03/2017 2:48 PM CDT Miscellaneous - Oseas Wilson P.A.-C. - 12/27/2015 1:27 PM CDT Ambulatory Patient Summary [address] [id number] Visit Information Name: GRICELDA ROBERTS [facility] Number: [id number] Current Date: 12/27/2015 13:27:23 Physicians [...] once a day fluticasone nasal (Flonase) 1 [place](s), Nasal, once a day levofloxacin (Levaquin 500 mg oral tablet) 1 Tablet(s), Oral, once a day x 10 day(s) New Routed to [address] [phone] levothyroxine (levothyroxine 75 mcg (0.075 mg) oral [...] if you dont have one. Go to [email or web address] and click on Create Your Account. Then, follow the directions to complete the online form. Youll be asked for your [facility] number which you can find at the top of this document. Your Goals/Additional instructions: Source: [facility] POWERCHART Document Id: [id number] Miscellaneous - Oseas Wilson P.A.-C. - 12/27/2015 1:27 PM CDT Ambulatory Discharge Medication List [address] [id number] Visit Information Name: JEANETTE GRICELDA BARRIGA [facility] Number: [id number] Visit Date: 12/27/2015 13:27:22 Attending [...] once a day fluticasone nasal (Flonase) 1 [place](s), Nasal, once a day levofloxacin (Levaquin 500 mg oral tablet) 1 Tablet(s), Oral, once a day x 10 day(s) New Routed to [address] [phone] levothyroxine (levothyroxine 75 mcg (0.075 mg) oral [...] PA-C Signed On:27-DEC-2015 13:27:19 Additional Information: Source: [facility] POWERCHART Document Id: [id number] Miscellaneous - Latonia Anthony L.P.N. - 12/27/2015 12:49 PM CDT Adult Electrical Designer Intake/History Adult Electrical Designer Intake/History Entered On: 12/27/2015 12:51 CDT Performed [...] Preferred Communication Mode : Verbal Languages : Maltese Is Patient Female and [...] ANTHONY LPN - 12/27/2015 12:49 CDT Source: [facility] RED INN[place] Document Id: [id number] CDT!55 documented in this encounter Plan of Treatment Not on filedocumented as of this encounter Visit Diagnoses Not on filedocumented in this encounter Additional Health Concerns Assessment Noted Time PHQ-9 Depression Total Score: 8 10/01/2015 2:45 PM METAL BASE BLOCKER documented as of this encounter
--- OUTSIDE RECORDS SUMMARY | 2022-04-29 07:44 | XMS_ITS | Encounter Summary ---
:1980 Author Organization [facility] Address [address] [place] [address] Care Team Providers Name Role Phone Unavailable Primary Care Provider Unavailable Encounter Details Date Type Department Care Team Description 10/01/2015 Hospital Encounter HX [facility] FBHB FAMILYPRA Luann Suh, CLAY MODELER, C.N.P. [address] [place] [address] (Wo rk) Social History Tobacco [...] do you attend islam or Never 2021 hoahaoism services? 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 encounter Last Filed Vital Signs Vital Sign Reading Time Taken Comments Blood Pressure 124/86 10/01/2015 2:27 PM TURF FARM WORKER Pulse 68 10/01/2015 2:27 PM TURF FARM WORKER Temperature - - Respiratory Rate 20 10/01/2015 2:27 PM TURF FARM WORKER Oxygen Saturation - - Inhaled Oxygen Concentration - - Weight 86.7 kg (191 lb 2.2 oz) 10/01/2015 2:27 PM TURF FARM WORKER Height 165 cm (5' 4.96) 10/01/2015 2:27 PM TURF FARM WORKER Body Mass Index 31.85 10/01/2015 2:27 PM TURF FARM WORKER documented in this encounter Medications at Time [...] LAB RESULTS UA Color Yellow 10/01/2015 14:25 TURF FARM WORKER UA Clarity Clear 10/01/2015 14:25 TURF FARM WORKER UA Spec Grav 1.010 10/01/2015 14:25 TURF FARM WORKER UA pH 7.0 10/01/2015 14:25 TURF FARM WORKER UA Protein Negativ 10/01/2015 14:25 TURF FARM WORKER UA Glucose Negativ 10/01/2015 14:25 TURF FARM WORKER UA Ketones Negativ 10/01/2015 14:25 TURF FARM WORKER UA Bili Negativ 10/01/2015 14:25 TURF FARM WORKER UA Urobilinogen 0.2 10/01/2015 14:25 TURF FARM WORKER UA Blood Negativ 10/01/2015 14:25 TURF FARM WORKER UA Nitrite Negativ 10/01/2015 14:25 TURF FARM WORKER UA Leuk Est Negativ 10/01/2015 14:25 TURF FARM WORKER UR WBC Occ-3 10/01/2015 14:25 TURF FARM WORKER UR RBC Occ-2 10/01/2015 14:25 TURF FARM WORKER UR Squamous Epi Cells Occ-3 10/01/2015 14:25 TURF FARM WORKER (Abnormal) IMPRESSION/REPORT/PLAN Dysuria NOS Urinalysis is negative. Encourage fluids. Ordered: OV Est Pt Level 4 - 00753 - 25 min Pain Low Back (LBP) Acetaminophen 325 mg, 2 tabs every 4 hours as needed for pain. Referral to [facility] Physical Therapy.Recheck if symptoms do not improve. Ordered: OV Est Pt Level 4 - 34555 - 25 min Spasm Muscle Flexeril 10 mg up to 3 times daily as needed for muscle spasm. She understands it may make her drowsy and will use caution. Ordered: OV Est Pt Level 4 - 44362 - 25 min Orders: cyclobenzaprine, 10 mg = 1 tab(s), PO, 3xDay, PRN Muscle spasm, x 10 day(s), # 30 tab(s), 0 Refill(s), Acute[facility] [address] Electronically Signed By: AISHWARYA SUH APRN OPERATING THEATRE TECHNICIAN On: 10/01/2015 02:50 PM Source: [facility] POWERCHART Document Id: [id number] FARM WORKER documented in this encounter Nursing Notes Aishwarya [...] ?? Numbness in the groin area ?? [id number] [facility], [address] [place] [address], [place] [address]. All rights reserved. This information is not intended as a substitute for professional medical care. Always follow your healthcare professional's instructions. This document has images extracted. Please consider using Meludia for all your patient education needs. Source: [facility] POWERCHART Document Id: [id number] FARM WORKER documented in this encounter Miscellaneous Notes Telephone [...] PRESCRIBED QTY: 10 LAST REFILL: 10/03/2015 Source: [facility] POWERCHART Document Id: [id number] Telephone Encounter - Kenia Klein R.N. - 12/12/2015 12:31 PM CDT vit b12 From: KENIA KLEIN RN ([facility] Medication Refill) To: OSEAS WILSON PA-C; Sent: [...] Call to Pharmacy ( ) Patient will package pick up Script ( ) Mail Rxto Patient Source: [facility] Spontly Document Id: [id number] Miscellaneous - Basia Sheets L.P.N. - 10/01/2015 2:45 PM CST PHQ-9 PHQ-9 Entered On: 10/01/2015 14:46 TURF FARM WORKER Performed On: 10/01/2015 14:45 TURF FARM WORKER by BASIA SHEETS LPN PHQ-9 Little interest [...] difficult BASIA SHEETS LPN - 10/01/2015 14:45 TURF FARM WORKER Source: [facility] Spontly Document Id: [id number] TURF FARM WORKER!13 FARM WORKER Miscellaneous - Aishwarya Suh APRN, C.N.P. - 10/01/2015 2:42 PM CST Ambulatory Patient Summary [address] [id number] Visit Information Name: GRICELDA REID [facility] Number: [id number] Current Date: 10/01/2015 14:42:44 Physicians [...] spasm x 10 day(s) New Routed to [address] [id number] Stop Taking the Following Medications: Medication list [...] ?? Numbness in the groin area ?? [phone] [place] [address]. All rights reserved. This information is not [...] if you dont have one. Go to [email or web address] and click on Create Your Account. Then, follow the directions to complete the online form. Youll be asked for your [facility] number which you can find at the top of this document. Your Goals/Additional instructions: This document has images extracted. Please consider using Meludia for all your patient education needs. Source: [facility] IngBooCHART Document Id: [id number] FARM WORKER Miscellaneous - Aishwarya Suh APRN, C.N.P. - 10/01/2015 2:42 PM CST Ambulatory Discharge Medication List [address] [place], [place] [id number] Visit Information Name: GRICELDA REID [facility] Number: [id number] Visit Date: 10/01/2015 14:42:43 Attending [...] spasm x 10 day(s) New Routed to [address] [id number] Stop Taking the Following Medications: Medication list [...] emergency. Electronically Signed By: AISHWARYA SUH APRN OPERATING THEATRE TECHNICIAN Signed On:01-OCT-2015 14:42:29 Additional Information: [facility] Document Id: [id number] FARM WORKER Miscellaneous - Basia Sheets L.P.N. - 10/01/2015 2:27 PM CST Adult Gas Brazer Intake/History Adult Gas Brazer Intake/History Entered On: 10/01/2015 14:30 TURF FARM WORKER Performed On: 10/01/2015 14:27 TURF FARM WORKER by BASIA SHEETS LPN Intake Chief Complaint [...] kg/m2 BASIA SHEETS LPN - 10/01/2015 14:27 TURF FARM WORKER General Info Information Given By : Patient Preferred Communication Mode : Verbal Languages : Japanese Is Patient Female and 13-50 no hysterectomy : No BASIA SHEETS LPN - 10/01/2015 14:27 TURF FARM WORKER Subjective Pain Symptoms : Yes BASIA SHEETS LPN - 10/01/2015 14:27 TURF FARM WORKER Pain Scale Pain Scale Verbal 0-10 : Open BASIA SHEETS LPN - 10/01/2015 14:27 TURF FARM WORKER Pain Pain Assessment Grid Pain 1 Pain 2 Location : Bladder Lower back Laterality : Right Intensity : 6 10 Time Pattern : Intermittent Constant BASIA SHEETS LPN - 10/01/2015 14:27 TURF FARM WORKER BASIA SHEETS LPN - 10/01/2015 14:27 TURF FARM WORKER Dependent Habits Exposure to Tobacco Smoke : Other: former Smoking Status : Former smoker Tobacco 2A : Yes Tobacco Use/Currently Using : No Tobacco Use/Last 30 Days : No Tobacco Use/Last 12 months : No FINESSEBASIA Jalloh MARY CARMEN FERREIRA - 10/01/2015 14:27 TURF FARM WORKER Caffeine Use Grid Caffeine Use : Current Type : Chocolate, Coffee, Soft drinks Frequency : Daily Amount : 1 cup, monsters 4 per day Last Use : 02/07/15 LESLEYNICKIEBASIA Jalloh MARY CARMEN FERREIRA - 10/01/2015 14:27 TURF FARM WORKER Recreational Drug Use Grid Drug Use : None LESLEYMARKTABATHABASIAPENG LENTZ LPN - 10/01/2015 14:27 TURF FARM WORKER Source: [facility] Spontly Document Id: [id number] TURF FARM WORKER!55 FARM WORKER Miscellaneous - Basia Sheets L.P.NRafal - 10/01/2015 2:26 PM CST Health Assessment Health Assessment Entered On: 10/01/2015 14:27 TURF FARM WORKER Performed On: 10/01/2015 14:26 TURF FARM WORKER by BASIA SHEETS LPN Health Assessment Complete Health Assessment Complete or Modified : Annual Health Assessment Annual Health Assessment Completed : Yes BASIA SHEETS LPN - 10/01/2015 14:26 TURF FARM WORKER Nutrition Nutrition Risk Factors by History Adult : None LESLEYMARKTABATHABASIAPENG LENTZ LPN - 10/01/2015 14:26 TURF FARM WORKER Functional Current Daily Living Assistance : None SUDEEP BASIAPENG LENTZ LPN - 10/01/2015 14:26 TURF FARM WORKER Dependent Habits Exposure to Tobacco Smoke : Other: former Smoking Status : Former smoker Tobacco 2A : Yes Tobacco Use/Currently Using : No Tobacco Use/Last 30 Days : No Tobacco Use/Last 12 months : No SUDEEPTABATHABASIAPENG LENTZ LPN - 10/01/2015 14:26 TURF FARM WORKER Caffeine Use Grid Caffeine Use : Current Type : Chocolate, Coffee, Soft drinks Frequency : Daily Amount : 1 cup, monsters 4 per day Last Use : 02/07/15 FINESSEShubham BASIAPENG LENTZ LPN - 10/01/2015 14:26 TURF FARM WORKER Alcohol Use : No BASIA SHEETS LPN - 10/01/2015 14:26 TURF FARM WORKER Recreational Drug Use Grid Drug Use : None BASIA SHEETS MANAGEMENT INTERNSHIP - 10/01/2015 14:26 TURF FARM WORKER Psychosocial Domestic Abuse Concerns : None Behavioral Health Screen/Safety Assmt : No Buddhist Preference : No qualifying data available. BASIA SHEETS MANAGEMENT INTERNSHIP - 10/01/2015 14:26 TURF FARM WORKER Advance Directive Advanced Directives : No Advance Directive Additional Information : Yes BASIA SHEETS MANAGEMENT INTERNSHIP - 10/01/2015 14:26 TURF FARM WORKER Educ Needs Learning Style Preference Adult Grid Patient : Printed materials, Verbal explanation Family : Verbal explanation, Printed materials BASIA SHEETS JHON - 10/01/2015 14:26 TURF FARM WORKER Source: [facility] POWERCHART Document Id: [id number] TURF FARM WORKER!37 FARM WORKER documented in this encounter Plan of Treatment Not on filedocumented as of this encounter Procedures Procedure Name Priority Date/Time Associated Diagnosis Comme nts URINALYSIS, Routine 10/01/2015 2:25 PM Results f or this MIDSTREAM, WITH TURF FARM WORKER procedure ar e in CULTURE IF the results INDICATED section. documented in this encounter Results (ABNORMAL) Urinalysis, Midstream, with culture if indicated (10/01/2015 2:25 PM TURF FARM WORKER) [facility] Method Time Signature Clarity Clear Clear POWERCHART HXUr Color Yellow Colorless POWERCHART Specific 1.010 POWERCHART [place], POCT, U pH, POCT, Urine 7.0 <5.0 [...] Laterality Urine, First 10/01/2015 2:25 PM Voided TURF FARM WORKER Aishwarya Suh APRN, C.N.P. LAB URINE ORDERABLES Performing Organization Address City/State/ZIP Code Phon e Number POWERCHART documented in this encounter Visit Diagnoses Not on filedocumented in this encounter Additional Health Concerns Assessment Noted Time PHQ-9 Depression Total Score: 8 10/01/2015 2:45 PM TURF FARM WORKER documented as of this encounter
--- OUTSIDE RECORDS SUMMARY | 2022-04-29 07:44 | XMS_ITS | Encounter Summary ---
:1980 Author Organization [facility] Address [address] [place] [address] Care Team Providers Name Role Phone Unavailable Primary Care Provider Unavailable Encounter Details Date Type Department Care Team Description 10/27/2014 Hospital Encounter HX [facility] FBHB FAMILYPRA Akhil Wilson P.A.-C. [address] [place] [address] (Wo rk) Social History Tobacco [...] do you attend religious or Never 2021 mormonism services? 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 - 10/27/2014 8:11 AM CDT [id number] CHIEF COMPLAINT/REASON FOR VISIT Review of her [...] records from[facility] gastric [facility] surgeon in the [facility] so that I can have them here. She was going to work [employer] but has not yet gotten it done. [...] WILSON PA-C On: 10/27/2014 01:55 PM Source: [facility] MEG Document Id: [id number] documented in this encounter Miscellaneous Notes Miscellaneous - Oseas Wilson P.A.-C. - 10/30/2014 3:04 PM CDT Normal Results Letter 30 October 2014 GRICELDA ERID [address] [place] [id number] Dear GRICELDA REID, Here is a copy [...] D2-Mcintosh (ng/mL) <4.0 10/27/2014 25-Hydroxy D3-Mcintosh (ng/mL) [id number] 30 10/27/2014 Hgb (g/dL) 14.1 10/27/2014 12.0 [...] Absolute (x10(9)/L) 2.08 10/27/2014 0.90 - 2.90 Kendall Absolute (x10(9)/L) (H) 0.99 10/27/2014 0.30 - 0.90 Eos Absolute (x10(9)/L) 0.11 10/27/2014 0.05 - 0.50 Baso Absolute (x10(9)/L) 0.05 10/27/2014 0.00 - 0.30 Differential? Auto 10/27/2014 Sincerely, OSEAS WILSON [address] [place] [address] Electronic Signature Electronically Signed By: OSEAS WILSON PA-C On: 30 October 2014 This document has images extracted. Source: [facility] POWERCHART Document Id: [id number] Miscellaneous - Shyann Landry RIsiah - 10/27/2014 [...] Call to Pharmacy ( ) Patient will worm picker Script ( ) Mail Rx to Patient Source: [facility] POWERCHART Document Id: [id number] Miscellaneous - Sakina Jensen L.P.N. - 10/27/2014 8:23 AM CDT Adult Executive Vice President Intake/History Adult Executive Vice President Intake/History Entered On: 10/27/2014 8:25 CDT Performed [...] Information Given By : Patient Languages : Italian Is Patient Female and 13-50 no hysterectomy [...] Daily Last Use : 09/07/14 SAKINA JENSEN 10/27/2014 8:23 CDT Recreational Drug Use Grid Drug Use : None SAKINA JENSEN 10/27/2014 8:23 CDT ID Screen Drug Resistant Organism : No Travel Within Last 21 Days : No Contact with someone with Ebola : No SAKINA JENSEN 10/27/2014 8:23 CDT [facility] P[facility] Document Id: [id number] CDT!49 documented in this encounter Plan of [...] X109L Erythrocytes 4.62 3.90 - POWERCHART 5.03 V5815H Hemoglobin 14.1 12.0 - POWERCHART 15.5 GDL [...] MLMIN POWERCHART eGFR Black/ >60 >=60 POWERCHART [place] [id number] 2 Glucose, Fasting, S 105 (H) 70 [...] LAB BLOOD NON ADD-ON Performing Organization Address City/[facility] Code Phon e Number POWERCHART 25-Hydroxyvitamin D2 [...] within this r elsie. Test Performed by: [place] [address] Retail Sales Associate: Alfonzo Nieves II, M.D., Ph.D. Specimen (Source) Anatomical Collection Method Collection Time Re ceived Time Location / / Volume Laterality Blood 10/27/2014 9:29 AM CDT Oseas Wilson P.A.-C. LAB BLOOD ADD-ON Performing Organization Address City/State/[facility] Code Phon e Number POWERCHART documented in this encounter Visit Diagnoses Not on filedocumented in this encounter
--- OUTSIDE RECORDS SUMMARY | 2022-04-29 07:44 | XMS_ITS | Encounter Summary ---
:1980 Author Organization [facility] Address [address] [place] [address] Care Team Providers Name Role Phone Unavailable Primary Care Provider Unavailable Encounter Details Date Type Department Care Team Description 12/21/2015 Hospital Encounter HX [facility] FAMILYPRA Akhil Wilson P.A.-C. [address] [place] [address] (Wo rk) Social History Tobacco [...] do you attend catholic or Never 2021 anabaptist services? 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 - 12/21/2015 10:05 AM CDT [id number] CHIEF COMPLAINT/REASON FOR VISIT Follow up of [...] to see a psychiatrist up in the [facility] but hasnot seen her anymore. She [...] 20 were in coordination of care and [id number]-[id number] counseling. Oseas Wilson PA-C/caitlyn Electronically Signed By: OSEAS WILSON PA-C On: 12/21/2015 12:45 PM Source: [facility] MHSDOLBEYNONRADSYS Document Id: [id number] documented in this encounter Miscellaneous Notes Telephone Encounter - Conversion, Historical Provider Ser - 12/24/2015 4:23 PM CDT *Phone Message/ Derrick Document Contains Addenda Addendum by LATONIA ANTHONY LPN on December 26, 2015 08:57:17 CDT Per prior authorization request, states no prior authorization needed. Order has been faxed to [facility]. Addendum by SAKINA JENSEN LPN on December 24, 2015 16:44:29 CDT From: SAKINA JENSEN LPN ( [facility]rick Nurse) To: LATONIA ANTHONY LPN; [facility] Nurse; Sent: 12/24/2015 16:44:29 CDT Subject: FW: *Phone Message/ Derrick From: LAURA GRIFFITHS ([facility] 2W Nurse) To: Derrick Nurse; Sent: 12/24/2015 [...] on a procedure. Please call her at [phone] Advice/Action: Source used: ( ) Verbalizes understanding [...] cell phone number ( ) Source: [facility] POWERCHART Document Id: [id number] Miscellaneous - Oseas Wilson P.A.-C. - 12/21/2015 11:45 AM CDT Ambulatory Patient Summary [address] [id number] Visit Information Name: GRICELDA REID [facility] Number: [id number] Current Date: 12/21/2015 11:45:00 Physicians [...] Oral, once a day New Routed to [address] [id number] fluticasone nasal (Flonase) 1 Mentor(s), Nasal, once a day levothyroxine (levothyroxine 75 [...] cap, Oral, once a day Routed to [address] [id number] zolpidem (Ambien 5 mg oral tablet) 1 [...] FBKF Lab FBKF Lab 01/24/2016 10:00 FBKF [facility] Oseas Michelle 02/08/2016 09:15 FBCV Neurology [...] you dont have one. Go to [email or web address] and click on Create Your Account. Then, follow the directions to complete the online form. Youll be asked for your [facility] number which you can find at the top of this document. Your Goals/Additional instructions: Source: [facility] POWERCHART Document Id: [id number] Miscellaneous - Oseas Wilson P.A.-C. - 12/21/2015 11:45 AM CDT Ambulatory Discharge Medication List [address] [id number] Visit Information Name: GRICELDA REID [facility] Number: [id number] Visit Date: 12/21/2015 11:44:59 Attending [...] Oral, once a day New Routed to [address] [id number] fluticasone nasal (Flonase) 1 Mentor(s), Nasal, once a day levothyroxine (levothyroxine 75 [...] cap, Oral, once a day Routed to [address] [place], [place] [phone] zolpidem (Ambien 5 mg oral tablet) 1 [...] PA-C Signed On:21-DEC-2015 11:44:57 Additional Information: Source: [facility] POWERCHART Document Id: [id number] Telephone Encounter - Latonia Anthony LRafalP.N. - 12/21/2015 11:06 AM CDT EEG prior authorization [facility] Document Contains Addenda Addendum by LATONIA ANTHONY LPN on December 26, 2015 08:57:45 CDT Noted, order has been faxed to [facility]. Addendum by NERI BLISS on December 25, 2015 10:49:00 CDT From: NERI BLISS ([facility] Surg Rn/Radiology Outside [facility]) To: LATONIA ANTHONY LPN; Sent: 12/25/2015 10:49:00 CDT Subject: RE: EEG prior authorization [facility] No auth needed From: LATONIA ANTHONY LPN To: [facility] Liquid Waste Treatment Plant Operator/Prior Authorizations; [facility] Surg Rn/Radiology Outside [facility]; Sent: 12/21/2015 11:06:48 CDT Subject: EEG prior authorization [facility] Patient Referred to Provider or Facility :_District [...] yes, date and type of injury: Source: [employer] Document Id: [id number] Alex - Latonia Anthony L.P.N. - 12/21/2015 [...] ANTHONY LPN - 12/21/2015 10:22 CDT Source: [facility] [employer] Document Id: [id number] CDT!8 Alex - Latonia Anthony L.P.N. - 12/21/2015 10:15 AM CDT Adult Inside Sales Associate Intake/History Adult Inside Sales Associate Intake/History Entered On: 12/21/2015 10:18 CDT Performed [...] Given By : Patient, Spouse Languages : Latvian Is Patient Female and 13-50 no hysterectomy [...] ANTHONY LPN - 12/21/2015 10:15 CDT Source: [facility] [employer] Document Id: [id number] CDT!54 documented in this encounter Plan of Treatment Not on filedocumented as of this encounter Visit Diagnoses Not on filedocumented in this encounter Additional Health Concerns Assessment Noted Time PHQ-9 Depression Total Score: 8 10/01/2015 2:45 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
--- OUTSIDE RECORDS SUMMARY | 2022-04-29 07:44 | XMS_ITS | Encounter Summary ---
:1980 Author Organization [facility] Address [address] [place] [address] Care Team Providers Name Role Phone Unavailable Primary Care Provider Unavailable Encounter Details Date Type Department Care Team Description 12/18/2015 Hospital Encounter HX [facility] FBHB FAMILYPRA Jeanette Napier M.D. [address] [place] [phone] (Wo rk) Social History Tobacco [...] do you attend cheondoism or Never 2021 lutheran services? 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 - 12/18/2015 10:49 AM CDT [id number] CHIEF COMPLAINT/REASON FOR VISIT Follow up emergency [...] NAPIER MD On: 12/19/2015 07:56 AM Source: [facility] MHSDOLBEYNONRADSYS Document Id: [id number] documented in this encounter Miscellaneous Notes Miscellaneous - Keturah Napier M.D. - 12/18/2015 12:29 PM CDT Ambulatory Patient Summary [address] [id number] Visit Information Name: GRICELDA REID [facility] Number: [id number] Current Date: 12/18/2015 12:29:47 [...] Oral, once a day New Routed to [facility] [address] [facility] [place] [phone] codeine-guaiFENesin (codeine-guaiFENesin 10 mg-100 mg/5 mL oral syrup) See Instructions, as needed for cough 5-10 mL PO before bed as needed for cough cyanocobalamin (Vitamin B12 1000 mcg/mL injectable solution) 1,000 mcg, Intramuscular, once a month doxycycline (doxycycline hyclate 100 mg oral tablet) 1 Tablet(s), Oral, two times a day x 7 day(s) fluticasone nasal (Flonase) 1 [place](s), Nasal, once a day levothyroxine (levothyroxine 75 mcg (0.075 mg) oral tablet) 75 mcg, Oral, once a day New Routed to [address] [id number] multivitamin, ( Multivitamins with Vitamin B Complex, Vitamin C, Minerals and L-Methylfolate oral capsule) 1 cap, Oral, once a day SUMAtriptan (SUMAtriptan 100 mg oral tablet) 1 Tablet(s), Oral, once verapamil (verapamil 120 mg/24 hours oral capsule, extended release) 1 cap, Oral, once a day New Routed to [address] [id number] Stop Taking the Following Medications: Medication list [...] Date Time Location Provider 12/21/2015 10:15 [facility] 02/08/2016 09:15 FBCV Neurology [...] online form. Youll be asked for your [facility] number which you can find at the top of this document. Your Goals/Additional instructions: Source: [facility] POWERCHART Document Id: [id number] Miscellaneous - Keturah Napier M.D. - 12/18/2015 12:29 PM CDT Ambulatory Discharge Medication List [address] [id number] Visit Information Name: GRICELDA REID [facility] Number: [id number] Visit Date: 12/18/2015 12:29:46 [...] Oral, once a day New Routed to [facility] [address] [place], [place] [phone] codeine-guaiFENesin (codeine-guaiFENesin 10 mg-100 mg/5 mL oral syrup) See Instructions, as needed for cough 5-10 mL PO before bed as needed for cough cyanocobalamin (Vitamin B12 1000 mcg/mL injectable solution) 1,000 mcg, Intramuscular, once a month doxycycline (doxycycline hyclate 100 mg oral tablet) 1 Tablet(s), Oral, two times a day x 7 day(s) fluticasone nasal (Flonase) 1 [place](s), Nasal, once a day levothyroxine (levothyroxine 75 mcg (0.075 mg) oral tablet) 75 mcg, Oral, once a day New Routed to [address] [id number] multivitamin, ( Multivitamins with Vitamin B Complex, Vitamin C, Minerals and L-Methylfolate oral capsule) 1 cap, Oral, once a day SUMAtriptan (SUMAtriptan 100 mg oral tablet) 1 Tablet(s), Oral, once verapamil (verapamil 120 mg/24 hours oral capsule, extended release) 1 cap, Oral, once a day New Routed to [address] [id number] Stop Taking the Following Medications: Medication list [...] MD Signed On:18-DEC-2015 12:29:37 Additional Information: Source: [facility] POWERCHART Document Id: [id number] Miscellaneous - Christine Morales L.PRafalN. - 12/18/2015 11:11 AM CDT Adult Textile Technical Officer Intake/History Adult Textile Technical Officer Intake/History Entered On: 12/18/2015 11:12 CDT Performed [...] Communication Mode : Verbal, Written Languages : Thai Is Patient Female and 13-50 no hysterectomy [...] MORALES LPN - 12/18/2015 11:13 CDT Source: [facility] POWERCHART Document Id: [id number] CDT!48 documented in this encounter Plan of Treatment Not on filedocumented as of this encounter Visit Diagnoses Not on filedocumented in this encounter Additional Health Concerns Assessment Noted Time PHQ-9 Depression Total Score: 8 10/01/2015 2:45 PM 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
--- OUTSIDE RECORDS SUMMARY | 2022-04-29 07:44 | XMS_ITS | Encounter Summary ---
:1980 Author Organization [facility] Address [address] [place] [address] Care Team Providers Name Role Phone Unavailable [...] do you attend voodoo or Never 2021 latter day services? 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
--- OUTSIDE RECORDS SUMMARY | 2022-04-29 07:44 | XMS_ITS | Encounter Summary ---
:1980 Author Organization [facility] Address [address] [place] [address] Care Team Providers Name Role Phone Unavailable [...] do you attend yazdanism or Never 2021 worship services? 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 - 05/24/2015 10:47 AM CDT [id number] CHIEF COMPLAINT/REASON FOR VISIT 1. Urinary incontinence. 2. Pelvic exam and Pap smear. 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. She is a 34-year-old, G2, P2-0-0-2 female, who is amenorrheic status post supracervical hysterectomy in 2010. The patient presents for CAKE BATTER MIXER consult for pelvic exam and Pap smear [...] DURON MD On: 05/24/2015 02:21 PM Source: [facility] MHSDOLBEYNONRADSYS Document Id: [id number] documented in this encounter Miscellaneous Notes Miscellaneous - Luciano Duron M.D. - 05/31/2015 1:14 PM CDT Custom Result Letter 31 May 2015 GRICELDA REID [address] [facility] [id number] Dear GRICELDA REID, I am happy to [...] in the future. Result Name Current Result CAKE BATTER MIXER Cytology. 05/24/2015 Sincerely, LUCIANO DURON [address] [place] [address] Electronic Signature Electronically Signed By: LUCIANO DURON MD On: 31 May 2015 This document has images extracted. Source: [facility] [employer] Document Id: [id number] Electronically signed by Ruby, [facility] Feed Mill Supervisor [id number] at 01/05/2017 4:59 AM CDT Telephone Encounter [...] 11 [address] Route To Pharmacy - [employer] [id number] Signed by LUCIANO DURON MD Submitted: Complete:oxybutynin [...] A: R: Please call Gricelda back at [phone]. Message: Advice/Action: Source used: ( ) Verbalizes [...] back cell phone number ( ) Source: [facility] POWERCHART Document Id: [id number] Miscellaneous - Luciano Duron M.D. - 05/25/2015 9:56 AM CDT Normal Results Letter 25 May 2015 GRICELDA REID [address] [place] [id number] Dear GRICELDA REID, I am pleased to [...] Urine Review 05/24/2015 Sincerely, LUCIANO DURON [address] [facility] [address] [facility] [place] [address] Electronic Signature Electronically Signed By: LUCIANO DURON MD On: 25 May 2015 This document has images extracted. Source: [facility] POWERCHART Document Id: [id number] Electronically signed by Ruby [facility] Feed Mill Supervisor [id number] at 01/05/2017 4:59 AM CDT Miscellaneous - Luciano Duron M.D. - 05/24/2015 12:21 PM CDT Ambulatory Patient Summary [facility] [address] [place], [place] [id number] Visit Information Name: GRICELDA REID [facility] Number: [id number] Current Date: 05/24/2015 12:21:14 Physicians [...] Oral, once a day New Routed to [place] [address] [address] [facility] [place] [phone] verapamil (verapamil 120 mg/24 hours oral capsule, [...] if you dont have one. Go to [email or web address] and click on Create Your Account. Then, follow the directions to complete the online form. Youll be asked for your [facility] number which you can find at the top of this document. Your Goals/Additional instructions: Source: [facility] POWERCHART Document Id: [id number] Miscellaneous - Luciano Duron M.D. - 05/24/2015 12:21 PM CDT Ambulatory Discharge Medication List [address] [place] [id number] Visit Information Name: GRICELDA REID [facility] Number: [id number] Visit Date: 05/24/2015 12:21:13 Attending [...] Oral, once a day New Routed to [address] [place] [phone] verapamil (verapamil 120 mg/24 hours oral capsule, [...] MD Signed On:24-MAY-2015 12:21:03 Additional Information: Source: [facility] POWERCHART Document Id: [id number] Miscellaneous - Nelly Campo R.N. - 05/24/2015 10:50 AM CDT Adult Metal Fitters And Machinists Intake/History Adult Metal Fitters And Machinists Intake/History Entered On: 05/24/2015 10:51 CDT Performed [...] 05/24/2015 10:50 CDT General Info Languages : Costa Rican Is Patient Female and 13-50 no hysterectomy [...] day Last Use : 02/07/15 NELLY CAMPO FAMILY NURSE PRACTITIONER - 05/24/2015 10:50 CDT Recreational Drug Use Grid Drug Use : None NELLY CAMPO FAMILY NURSE PRACTITIONER - 05/24/2015 10:50 CDT Source: [facility] POWERCHART Document Id: [id number] CDT!33 documented in this encounter Plan of Treatment Not on filedocumented as of this encounter Procedures Procedure Name Priority Date/Time Associated Diagnosis Comme nts BACTERIAL CULTURE, Routine 05/24/2015 12:43 PM Re sults for this AEROBIC, URINE CDT procedure are in the results section. PATHOLOGY CAKE BATTER MIXER Routine 05/24/2015 12:00 AM Results for this CYTOLOGY CDT procedure are i n the results section. documented in this encounter Results Bacterial Culture, Aerobic, Urine (05/24/2015 12:43 PM CDT) [facility] gist Method Time Signature Bacterial POWERCHART Culture, Aerobic, [facility] Mixed consuelo. No POWERCHART further studies unless notified. HXFinal [place] POWERCHART Microbiology laboratory [phone]. Specimen (Source) Anatomical Collection Method Collection Time Re ceived Time Location / / Volume Laterality Urine, First 05/24/2015 12:43 Voided PM CDT Luciano Duron M.D. LAB MICROBIOLOGY - GENERAL O RDERABLES Performing Organization Address City/[facility] Phon e Number POWERCHART Pathology CAKE BATTER MIXER Cytology (05/24/2015 12:00 AM CDT) Specimen (Source) Anatomical Location Collection Method / Collectio n Time Received Time / Laterality Volume 05/24/2015 Narrative LCM LAB - 05/31/2015 12:01 PM CDT [facility] [place] [address] [facility] [address] [place] [address] ??[phone] Patient Name: GRICELDA REID Patient ID #: [id number] Collected: 05/24/2015 Address: [facility]/State/Zip: [address] [place] [address] ??[phone] Received: Reported: 05/25/2015 05/31/2015 Soc. Sec. #: ?/Age/Sex 1980 (Age: 34) ??F Physician(s): JUAN C DURON MD Copy To: ? [facility] ??[id number] [address] [place] [address], ??[place] ??[id number] CYTOPATHOLOGY CAKE BATTER MIXER REPORT FINAL CYTOLOGIC DIAGNOSIS Pap Smear - [...]
--- OUTSIDE RECORDS SUMMARY | 2022-04-29 07:44 | XMS_ITS | Encounter Summary ---
:1980 Author Organization [facility] Address [address] [place] [address] Care Team Providers Name Role Phone Unavailable Primary Care Provider Unavailable Encounter Details Date Type Department Care Team Description 07/12/2014 Hospital Encounter HX [facility] FAMILY[facility] Maria C Tamayo, PAT, C.N.P., D. N.P. [address] [place], [place] [address] (Wo rk) Social History [...] you attend roman catholic or Never 2021 evangelical services? 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/2021 7:35 PM MANAGER AGRICULTURE documented as of this encounter Medications at [...] of this encounter Progress Notes Homer Tamayo, APT, C.N.P. - 07/12/2014 5:05 PM CST [id number] CHIEF COMPLAINT/REASON FOR VISIT Knee pain. HISTORY OF PRESENT ILLNESS The patient is a 33-year-old female, new to the [facility], for left knee pain. Patient has previously [...] Patient was given a limited supply of [place] because she is unable to use Ultram. Patient will follow up as needed. Patient verbalizes understanding and agrees with plan of care. Homer Bauer CNP/caitlyn Electronically Signed By: HOMER BAUER CNP On: 07/17/2014 05:12 PM Source: [facility] MHSDOLBEYNONRADSYS Document Id: [id number] GER AGRICULTURE documented in this encounter Miscellaneous Notes Miscellaneous - Homer Tamayo APRN, C.N.P. - 07/13/2014 6:33 PM MANAGER AGRICULTURE Ambulatory Patient Summary [address] [id number] Visit Information Name: GRICELDA REID [facility] Number: [id number] Visit Date: 07/13/2014 18:33:46 Attending [...] injectable solution) Intramuscular, once a month HYDROcodone-acetaminophen ([place] 5 mg-325 mg oral tablet) 1 Tablet(s), [...] case of emergency. Electronically Signed By: HOMER BAURE CNP Signed On:13-JUL-2014 18:33:37 Additional Information: Source: [facility] POWERCHART Document Id: [id number] GER AGRICULTURE Miscellaneous - Homer Tamayo APRN CRafalN.P. - 07/13/2014 6:33 PM MANAGER AGRICULTURE Ambulatory Discharge Medication List [address] [id number] Visit Information Name: GRICELDA REID [facility] Number: [id number] Visit Date: 07/13/2014 18:33:45 Attending [...] injectable solution) Intramuscular, once a month HYDROcodone-acetaminophen ([place] 5 mg-325 mg oral tablet) 1 Tablet(s), [...] CNP Signed On:13-JUL-2014 18:33:37 Additional Information: Source: [facility] Nudge Document Id: [id number] GER AGRICULTURE Miscelllamberto - Homer Tamayo APRN, C.N.P. - 07/13/2014 5:39 PM MANAGER AGRICULTURE Results Notification Document Contains Addenda Addendum by LATONIA ANTHONY LPN on 14 July 2014 08:37:52 MANAGER AGRICULTURE Patient is aware. From: HOMER BAUER CNP Sent: 07/13/2014 17:39:14 MANAGER AGRICULTURE ! Show up: 07/13/2014 17:39:14 MANAGER AGRICULTURE Subject: Results Notification Actions: Notify patient of results Reminder Comments: knee xray negative as well. Results: Date Result Type Result Name 07/13/2014 16:45 Radiology XR Knee Left 3 views Source: [facility] Nudge Document Id: [id number] Miscellaneous - Homer Tamayo APRN, C.N.P. - 07/13/2014 5:38 PM MANAGER AGRICULTURE Results Notification Document Contains Addenda Addendum by LATONIA ANTHONY LPN on 14 July 2014 08:38:10 MANAGER AGRICULTURE Pateint is aware. From: HOMER BAUER CNP Sent: 07/13/2014 17:38:46 MANAGER AGRICULTURE ! Show up: 07/13/2014 17:38:46 MANAGER AGRICULTURE Subject: Results Notification Actions: Notify patient of results Reminder Comments: left hip xray negative Results: Date Result Type Result Name 07/13/2014 16:45 Radiology XR Hip Left 2 or more views Source: [facility] POWERCHART Document Id: [id number] Miscellaneous - Latonia Anthony, L.P.N. - 07/13/2014 3:30 PM CST Adult Probation Manager Intake/History Adult Probation Manager Intake/History Entered On: 07/13/2014 15:35 MANAGER AGRICULTURE Performed On: 07/13/2014 15:30 MANAGER AGRICULTURE by LATONIA ANTHONY LPN Intake Chief Complaint [...] kg/m2 LATONIA ANTHONY LPN - 07/13/2014 15:30 MANAGER AGRICULTURE General Info Languages : Luxembourgish Is Patient Female and 13-50 no hysterectomy : Yes Status : Patient denies Are you ? : No LATONIA ANTHONY LPN - 07/13/2014 15:30 MANAGER AGRICULTURE Subjective Pain Symptoms : Yes Injury : Other: fell on left knee December 2012 LATONIA ANTHONY LPN - 07/13/2014 15:30 MANAGER AGRICULTURE Pain Pain Assessment Grid Pain 1 Location : Knee Laterality : Left Intensity : 8 Duration : chronic LATONIA ANTHONY LPN - 07/13/2014 15:30 MANAGER AGRICULTURE Dependent Habits Tobacco Use/Currently Using : No Tobacco Use/Last 12 months : No Tobacco Use/Advised to Quit : No Exposure to Tobacco Smoke : Other: former smoker Smoking Status : Former smoker LATONIA ANTHONY LPN - 07/13/2014 15:30 MANAGER AGRICULTURE Tobacco Use Grid Last Use : 1997 LATONIA ANTHONY LPN - 07/13/2014 15:30 MANAGER AGRICULTURE ID Screen Drug Resistant Organism : No Travel Within Last 21 Days : No LATONIA ANTHONY LPN - 07/13/2014 15:30 MANAGER AGRICULTURE Source: [facility] Nudge Document Id: [id number] MANAGER AGRICULTURE!45 GER AGRICULTURE Miscellaneous - Latonia Anthony L.P.NRafal - 07/13/2014 3:30 PM CST Health Assessment Health Assessment Entered On: 07/13/2014 15:37 MANAGER AGRICULTURE Performed On: 07/13/2014 15:30 MANAGER AGRICULTURE by LATONIA ANTHONY LPN Health Assessment Complete Health Assessment Complete or Modified : Annual Health Assessment Annual Health Assessment Completed : Yes LATONIA ANTHONY LPN - 07/13/2014 15:30 MANAGER AGRICULTURE Nutrition Nutrition Risk Factors by History Adult : None LATONIA ANTHONY LPN - 07/13/2014 15:30 MANAGER AGRICULTURE Functional Current Daily Living Assistance : None Mobility Assistance Prior to Admission : Independent LATONIA ANTHONY LPN - 07/13/2014 15:30 MANAGER AGRICULTURE Dependent Habits Tobacco Use/Currently Using : No Tobacco Use/Last 12 months : No Tobacco Use/Advised to Quit : No Exposure to Tobacco Smoke : Other: former Smoking Status : Former smoker LATONIA ANTHONY LPN - 07/13/2014 15:30 MANAGER AGRICULTURE Tobacco Use Grid Last Use : 1997 LATONIA ANTHONY LPN - 07/13/2014 15:30 MANAGER AGRICULTURE Alcohol Use : No LATONIA ANTHONY LPN - 07/13/2014 15:30 MANAGER AGRICULTURE Caffeine Use Grid Caffeine Use : Current Type : Chocolate Frequency : Monthly Last Use : 07/13/14 LATONIA ANTHONY LPN - 07/13/2014 15:30 MANAGER AGRICULTURE Recreational Drug Use Grid Drug Use : None LATONIA ANTHONY LPN - 07/13/2014 15:30 MANAGER AGRICULTURE Psychosocial Domestic Abuse Concerns : None Marital Status : Number of Children : 2 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 LATONIA ANTHONY LPN - 07/13/2014 15:30 MANAGER AGRICULTURE Advance Directive Advanced Directives : No Advance Directive Additional Information : No LATONIA ANTHONY LPN - 07/13/2014 15:30 MANAGER AGRICULTURE Educ Needs Learning Style Preference Adult Grid Patient : Printed materials, Verbal explanation Family : Verbal explanation, Printed materials LATONIA ANTHONY LPN - 07/13/2014 15:30 MANAGER AGRICULTURE Source: [employer] Document Id: [id number] MANAGER AGRICULTURE!42 GER AGRICULTURE Miscellaneous - Latonia Anthony L.P.N. - 07/13/2014 3:30 PM CST PHQ-9 PHQ-9 Entered On: 07/13/2014 15:37 MANAGER AGRICULTURE Performed On: 07/13/2014 15:30 MANAGER AGRICULTURE by LATONIA ANTHONY LPN PHQ-9 Little interest [...] all LATONIA ANTHONY LPN - 07/13/2014 15:30 MANAGER AGRICULTURE Source: [employer] Document Id: [id number] MANAGER AGRICULTURE!13 GER AGRICULTURE documented in this encounter Plan of Treatment Not on filedocumented as of this encounter Procedures Procedure Name Priority Date/Time Associated Diagnosis Comme nts DX KNEE LEFT 3 Routine 07/13/2014 4:46 PM Results for this VIEWS MANAGER AGRICULTURE procedure are i n the results section. DX HIP LEFT 2-3 Routine 07/13/2014 4:46 PM Result s for this VIEWS MANAGER AGRICULTURE procedure are i n the results section. documented in this encounter Results DX Hip Left 2+ Views (07/13/2014 4:46 PM MANAGER AGRICULTURE) Anatomical Region Laterality Modality Lower Extremity, Hip Left Radiographic Imagin g Specimen (Source) Anatomical Collection Method Collection Time Re ceived Time Location / / Volume Laterality 07/13/2014 4:46 PM MANAGER AGRICULTURE Impressions 07/13/2014 4:42 PM MANAGER AGRICULTURE As above Narrative 07/13/2014 4:42 PM MANAGER AGRICULTURE EXAM: XR Hip Left 2 or more [...] Knee Left 3 Views (07/13/2014 4:46 PM MANAGER AGRICULTURE) Anatomical Region Laterality Modality Lower Extremity, Knee Left Radiographic Imagi ng Specimen (Source) Anatomical Collection Method Collection Time Re ceived Time Location / / Volume Laterality 07/13/2014 4:46 PM MANAGER AGRICULTURE Narrative 07/13/2014 4:42 PM MANAGER AGRICULTURE Technique: Multiple views of the left kn [...]
--- OUTSIDE RECORDS SUMMARY | 2022-04-29 07:47 | XMS_ITS | Encounter Summary ---
:1980 Author Organization [facility] Address [address] [place] [address] Care Team Providers Name Role Phone Unassigned, [...] on filedocumented in this encounter Care Teams Oxyacetylene Burner Relationship Specialty Start Date End Date Unassigned, Provider PCP - General 10/22/[address] [place] [address] documented as of this encounter
--- OUTSIDE RECORDS SUMMARY | 2022-04-29 07:47 | XMS_ITS | Encounter Summary ---
:1980 Author Organization [facility] Address [address] [place] [address] Care Team Providers Name Role Phone Unassigned, Provider Primary Care Provider Unavailable Reason for Visit Reason Comments Refill Encounter Details Date Type Department Care Team Description 12/14/2020 Refill [facility] Rick ledesma MD Refill Sports Medicine [address] [facility] [address] [place] [address] [place] [address] [phone] Social History Tobacco Use Types Packs/Day Years Used Date Smoking Tobacco: Never Alcohol Use Standard Drinks/Week Comments Not Asked 0 (1 standard drink = 0.6 oz pure alcoho l) Sex Assigned at Date Recorded Not on file documented as of this encounter Plan of Treatment Not on filedocumented as of this encounter Visit Diagnoses Diagnosis Patellofemoral arthritis of left knee documented in this encounter Care Teams Package Maker Relationship Specialty Start Date End Date Unassigned, Provider PCP - General 10/22/[address] [place] [address] documented as of this encounter
--- OUTSIDE RECORDS SUMMARY | 2022-04-29 07:47 | XMS_ITS | Encounter Summary ---
:1980 Author Organization [facility] Address [address] [place] [address] Care Team Providers Name Role Phone Unassigned, Provider Primary Care Provider Unavailable Reason for Visit Procedure/Equipment (Routine) - Incomplete Specialty Diagnoses / Procedures Referred By Contact Refer red To Contact Procedures Provider, Foreign Images Foreign Image(S) XR knee Lt [address] [place] [address] Referral ID Status Reason Start Date Expiration Date Visits V isits Requested Authorized [id number] Incomplete 10/22/2020 01/21/2022 1 1 Encounter Details Date Type Department Care Team Description 09/03/2020 Ancillary Procedure [facility] Radiology PACS Provider, Foreign [address] [place] [address] [address] [place] [address] Social History Tobacco Use Types Packs/Day Years [...] AM Re sults for this KNEE LT RENTAL SALESPERSON procedure are i n the results section. documented in this encounter Results Foreign Image(S) XR knee Lt (09/03/2020 8:10 AM RENTAL SALESPERSON) Specimen (Source) Anatomical Location Collection Method / Collectio n Time Received Time / Laterality Volume Narrative POCT - 10/22/2020 8:09 AM CDT These outside images have been uploaded into PACS. If the results were provided, they will be located in the nm sybil's chart under the Media or Imaging tab. Foreign Images Provider RAD NON-REPORTABLES Performing Organization Address City/State/ZIP Code Phon e Number POCT documented in this encounter Visit Diagnoses Not on filedocumented in this encounter Care Teams Receivable Clerk Relationship Specialty Start Date End Date Unassigned, Provider PCP - General 10/22/06 [address] [place] [address] documented as of this encounter
--- OUTSIDE RECORDS SUMMARY | 2022-04-29 07:47 | XMS_ITS | Encounter Summary ---
:1980 Author Organization [facility] Address [address] [place] [address] Care Team Providers Name Role Phone Unassigned, Provider Primary Care Provider Unavailable Encounter Details Date Type Department Care Team Description 10/04/2006 Office Visit [facility] [place] [address] [address] [place] [address] [place] [address] [phone] Social History Tobacco Use Types Packs/Day Years Used Date Smoking Tobacco: Never Assessed Sex Assigned at Date Recorded Not on file documented as of this encounter Last Filed Vital Signs Vital Sign Reading Time Taken Comments Blood Pressure 119/81 10/04/2006 4:08 PM MALL PLANT CARETAKER Pulse 106 10/04/2006 4:08 PM MALL PLANT CARETAKER Temperature 36.8 ??C (98.2 ??F) 10/04/2006 4:08 PM ORAL C: 3 6.8 C MALL PLANT CARETAKER Respiratory Rate 24 10/04/2006 4:08 PM MALL PLANT CARETAKER Oxygen Saturation - - Inhaled Oxygen Concentration - - Weight - - Height - - Body Mass Index - - documented in this encounter Progress Notes Nemesio Salomon MD - 10/04/2006 12:01 AM CST Progress Notes signed by Nemesio Salomon MD at 10/08/06 [id number] Author: Nemesio Salomon MD Service: (none) Author Type: Physician Filed: 11/29/10 1902 Note Time: 10/04/06 0001 Status: Signed Script Developer: Nemesio Salomon MD (Physician) NAME: MUKUL REID MR#: [id number] ACCT: [id number] VISIT: [id number] DICTATING CLINICIAN: Nemesio Salomon MD JOB: [id number] LOC: 520 CLINIC PROGRESS NOTE DATE OF [...] examining here in the urgent care at [place]. OBJECTIVE: VS: BP: 118/81. T: 98. P: [...] weightbearing to begin when swelling goes down. TEL:[id number] C: 10/05/06 14:09 DOCUMENT: [id number] PLANT CARETAKER documented in this encounter Plan of Treatment Not on filedocumented as of this encounter Procedures Procedure Name Priority Date/Time Associated Diagnosis Comme nts XR ANKLE LT 3 VIEWS Routine 10/04/2006 4:48 PM Re sults for this MALL PLANT CARETAKER procedure are i n the results section. documented in this encounter Results XR Ankle Lt 3 Views (10/04/2006 4:48 PM MALL PLANT CARETAKER) Anatomical Region Laterality Modality Lower Extremity, Ankle, Foot & Ankle Oth er Specimen (Source) Anatomical Location Collection Method / Collectio n Time Received Time / Laterality Volume Narrative 10/04/2006 4:48 PM MALL PLANT CARETAKER Soft tissue swelling laterally. Otherwise ankle unremarkable. [id number] Dictating NORMAN ORR MD Procedure Note Norman Contreras - 10/10/2016 Soft tissue swelling laterally. Otherwis e ankle unremarkable. [id number] Dictating NORMAN ORR MD Nemesio Salomon MD RAD GD documented in this encounter Visit Diagnoses Not on filedocumented in this encounter Care Teams Carton Marker Machine Relationship Specialty Start Date End Date Unassigned, Provider PCP - General 10/22/[address] [place] [address] documented as of this encounter
--- OUTSIDE RECORDS SUMMARY | 2022-04-29 07:47 | XMS_ITS | Encounter Summary ---
:1980 Author Organization [facility] Address [address] [place] [address] Care Team Providers Name Role Phone Unassigned, [...] on filedocumented in this encounter Care Teams Funeral Assistant Relationship Specialty Start Date End Date Unassigned, Provider PCP - General 10/22/[address] [place] [address] documented as of this encounter
--- OUTSIDE RECORDS SUMMARY | 2022-04-29 07:47 | XMS_ITS | Encounter Summary ---
:1980 Author Organization [facility] Address [address] [place] [address] Care Team Providers Name Role Phone Unassigned, Provider Primary Care Provider Unavailable Reason for Visit Reason Comments Prior Authorization For Imaging Left knee Encounter Details Date Type Department Care Team Description 10/31/2020 Telephone Rick Fortune, Prior Authorization For [facility] MD Imaging (Left knee) Medicine [address] [place] [address] [place] [phone] Social History Tobacco Use Types Packs/Day Years [...] isn???t allowed to make anymore appointments within [facility]. They have to stay in their network. [...] filedocumented in this encounter Care Teams Financial Systems Manager Relationship Specialty Start Date End Date Unassigned, Provider PCP - General 10/22/06 [address] [place] [address] documented as of this encounter
--- OUTSIDE RECORDS SUMMARY | 2022-04-29 07:47 | XMS_ITS | Encounter Summary ---
:1980 Author Organization [facility] Address [address] [place] [address] Care Team Providers Name Role Phone Unassigned, Provider Primary Care Provider Unavailable Reason for Referral Procedure/Equipment (Routine) - Incomplete Specialty Diagnoses / Procedures Referred By Contact Refer red To Contact Diagnoses Patellofemoral arthritis of left knee Rick Carrington MD Procedures [place]/Lateral J Knne brace(L1812) [address] [place] [address] Referral ID Status Reason Start Date Expiration Date Visits V isits Requested Authorized [id number] Incomplete 10/29/2020 01/28/2022 1 1 Procedure/Equipment (Routine) - Incomplete Specialty Diagnoses / Procedures Referred By Contact Refer red To Contact Diagnoses Chronic pain of both knees Rick Carrington MD Procedures [place]/Lateral J Knne brace(L1812) [address] [place] [address] Referral ID Status Reason Start Date Expiration Date Visits V isits Requested Authorized [id number] Incomplete 10/29/2020 01/28/2022 1 1 Reason for Visit Reason Comments CONSULT bilateral knee pain Encounter Details Date Type Department Care Team Description 10/29/2020 Office Visit Rick Fortune p ain of both knees (Primary Dx); Orthopaedics & Sports MD Ralph Patellofemoral arthritis of left knee Medicine [address] [address] [address] [place] [address] [phone] Social History Tobacco Use Types Packs/Day Years [...] 12:00 PM CDT NAME: MUKUL REID MR#: [id number] CSN: [id number] AUTHENTICATING CLINICIAN: RICK CARRINGTON MD CONFIRM #: [id number] LOC: 711 CLINIC PROGRESS NOTE DATE OF [...] employed. 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 EXAM: GENERAL: Patient is alert, oriented, in [...] on visit is 35 minutes including non gbou-ae-jahp time. KIMBERLY:TORRIE C: R:10/29/20 15:56 CONFIRM#:[id number] documented in this encounter Plan of Treatment Not on filedocumented as of this encounter Visit Diagnoses Diagnosis Chronic pain of both knees - Primary Patellofemoral arthritis of left knee documented in this encounter Care Teams Heel Edge Inker Machine Relationship Specialty Start Date End Date Unassigned, Provider PCP - General 10/22/[address] [place] [address] documented as of this encounter
--- OUTSIDE RECORDS SUMMARY | 2022-04-29 07:47 | XMS_ITS | Encounter Summary ---
:1980 Author Organization [facility] Address [address] [place] [address] Care Team Providers Name Role Phone Unassigned, Provider Primary Care Provider Unavailable Reason for Visit Reason Comments SWELLING, FOOT Encounter Details Date Type Department Care Team Description 10/22/2006 Office Visit [facility] ([facility] [place] [address] [place] [phone] Social History Tobacco Use Types Packs/Day [...] foot documented in this encounter Care Teams Pill Coater Relationship Specialty Start Date End Date Unassigned, Provider PCP - General 10/22/[address] [place] [address] documented as of this encounter
--- OUTSIDE RECORDS SUMMARY | 2022-04-29 07:47 | XMS_ITS | Encounter Summary ---
:1980 Author Organization [facility] Address [address] [place] [address] Care Team Providers Name Role Phone Unassigned, Provider Primary Care Provider Unavailable Reason for Visit Procedure/Equipment (Routine) - Incomplete Specialty Diagnoses / Procedures Referred By Contact Refer red To Contact Diagnoses Chronic pain of both knees Rick Morley MD Procedures XR Knee Bilat 3 Views XR Knee Rt 3 Views [address] [place] [address] Referral ID Status Reason Start Date Expiration Date Visits V isits Requested Authorized [id number] Incomplete 10/29/2020 01/28/2022 1 1 Encounter Details Date Type Department Care Team Description 10/29/2020 Ancillary [place] Rick Samayoa Chronic darin n of both Procedure Donny [address] MD Ralph knees Radiology [address] [place] [address] [place], [place] [address] [address] [place], [place] [phone] [address] (Work) [phone] Social History Tobacco Use Types Packs/Day Years [...] knees documented in this encounter Care Teams Appeals Court Associate Justice Relationship Specialty Start Date End Date Unassigned, Provider PCP - General 10/22/[address] [place] [address] documented as of this encounter
--- OUTSIDE RECORDS SUMMARY | 2022-04-29 07:47 | XMS_ITS | Clinical Summary ---
:1980 Author Organization [facility] Address [address] [place] [address] Care Team Providers Name Role Phone Unassigned, [...] for each transition of care or referral. [facility] Allergies Active Allergy Reactions Severity Noted Date [...] cyanocobalamin INJECT 1ML 0 10/11/2020 Act jennie ([id number]) 1000 INTRAMUSCULARLY MCG/ML injection EVERY MONTH cyclobenzaprine [...] 0.5 Inches 0 Active e (MYCOLOG-II) topically. 594711-1.1 UNIT/GM-% cream omega-3 fatty acids Take 1 [...] Phone Address Typ e / Group Dates [facility] [id number] 2020-Oli [phone] [facility] [address] [facility] [address] [place] [id number] Gricelda Roberts Personal/Family Self [address] (Home) [place] [address] Gricelda Roberts Personal/Family Self [address] (Home) [place] [phone] Gricelda Roberts Non-Covered/Pre Self [address] pay (Home) [place] 0[address] Care Teams Farm Advisor Relationship Specialty Start Date End Date Unassigned, Provider PCP - General 10/22/06 [address] [place] [address]
--- OUTSIDE RECORDS SUMMARY | 2022-04-29 07:47 | XMS_ITS | Encounter Summary ---
:1980 Author Organization [facility] Address [address] [place] [address] Care Team Providers Name Role Phone Unassigned, Provider Primary Care Provider Unavailable Encounter Details Date Type Department Care Team Description 10/04/2006 PN Conversion Only [address] [address] [place] [address] Social History Tobacco Use Types Packs/Day Years Used Date Smoking Tobacco: Never Assessed Sex Assigned at Date Recorded Not on file documented as of this encounter Plan of Treatment Not on filedocumented as of this encounter Visit Diagnoses Not on filedocumented in this encounter Care Teams Supervisor Long Goods Relationship Specialty Start Date End Date Unassigned, Provider PCP - General 10/22/06 [address] [place] [address] documented as of this encounter
--- OUTSIDE RECORDS SUMMARY | 2022-04-29 07:47 | XMS_ITS | Encounter Summary ---
:1980 Author Organization [facility] Address [address] [place] [address] Care Team Providers Name Role Phone Unassigned, Provider Primary Care Provider Unavailable Reason for Visit Reason Comments Procedure Encounter Details Date Type Department Care Team Description 09/10/[address] [facility] [address] De La Cruz ra Procedure Surgery [address] [place] [address] Social History Tobacco Use Types [...] see no skin conditions No charge today ODIAL SUPERVISOR documented in this encounter Plan of Treatment Not on filedocumented as of this encounter Visit Diagnoses Diagnosis Facial aging - Primary Other symptoms involving skin and integu mentary tissues documented in this encounter Care Teams Residential Electrician Relationship Specialty Start Date End Date Unassigned, Provider PCP - General 10/22/06 [address] [place] [address] documented as of this encounter
--- OUTSIDE RECORDS SUMMARY | 2022-04-29 07:47 | XMS_ITS | Encounter Summary ---
:1980 Author Organization [facility] Address [address] [place] [address] Care Team Providers Name Role Phone Unassigned, Provider Primary Care Provider Unavailable Encounter Details Date Type Department Care Team Description 03/04/2011 Orders Only External to Gagan Azul MD [address] [address] [place], [place] [address] (Wo rk) Social History Tobacco Use Types Packs/Day Years Used Date Smoking Tobacco: Never Alcohol Use Standard Drinks/Week Comments Not Asked 0 (1 standard drink = 0.6 oz pure alcoho l) Sex Assigned at Date Recorded Not on file documented as of this encounter Procedure Notes Marlene Dhaliwal Provider - 03/04/2011 12:00 AM CDTAssociated Order(s): SCANNED LAB Marlene Dhaliwal Provider - 03/04/2011 12:00 AM CDTAssociated Order(s): SCANNED LAB documented in this encounter Plan of Treatment Not on filedocumented as of this encounter Procedures Procedure Name Priority Date/Time Associated Diagnosis Comme nts SCANNED LAB 03/04/2011 12:00 AM Results for this CDT procedure are i n the results section . documented in this encounter Results SCANNED LAB (03/04/2011 12:00 AM CDT) Specimen (Source) Anatomical Location Collection Method / Collectio n Time Received Time / Laterality Volume 03/04/2011 Narrative This result has an attachment that is no t available. Transcriptions Marlene Dhaliwal Provider - 03/04/2011 1 2:00 AM CDT Marlene Dhaliwal Provider - 03/04/2011 1 2:00 AM CDT Gagan Worthington MD LAB_1 documented in this encounter Visit Diagnoses Not on filedocumented in this encounter Care Teams Relations Director Relationship Specialty Start Date End Date Unassigned, Provider PCP - General 10/22/06 [address] [place] [address] documented as of this encounter
== END 2022-04-29 07:21 | disposition home or self-care (01) ==
LOC: INJ CL 07:20
PROVIDERS: PCP Nurse Practitioner Family; Visit Provider Family Medicine
DX: M54.16 Radiculopathy, lumbar region (principal); M51.36 Other intervertebral disc degeneration, lumbar region
CPT/HCPCS: 64483; J1100; Q9966

== ENCOUNTER 2022-09-29 14:18 | Outpatient (CLI) | payer OTHER, SELFPAY ==
--- OUTSIDE RECORDS SUMMARY | 2022-09-29 14:23 | XMS_ITS | Continuity of Care Document ---
:1980 Author Organization [facility] Address [address] [facility] [place] [address] Phone Care Team Providers Name Role Phone Will Albert WARREN Unavailable Unavailable Allergies, Adverse Reactions, Alerts Substance Reaction Status Criticality CEPHALEXIN MONOHYDRATE Rash Active No Inform ation Medications Medication Instructions Dosage Effective Dates Status Comment s (start - stop) hydrocodone 5 take 1 tablet every 4 - Active mg-acetaminophen 325 - 6 hours for acute mg tablet post-proc pain, not to exceed 3 tablets in 24 hours. Procedures Procedure Date OFFICE VISIT, EST TELEMEDICINE Drug test def 8-14 classes Drug Urine Toxology With Chromatography OFFICE/OUTPATIENT VISIT, NEW Advance Directives Directive Yes / No Effective Date File Name No Information Encounters Encounter Practice Location Reason(s) Diagnoses Date Provider Provide rs Description For Visit Copied on Encounter [facility] No Information [facility] Albert. Pain [place] [address] [facility], [place], [address] [facility] [place], is, [place], [place], [id number] [place], , [place]. [id number] tel: , [place] [phone] tel: [phone] OFFICE VISIT, [facility] Back pain Chronic pain Bj Referring [facility] (chief syndromeSacroiliit Aurelia. Provider: TELEMEDICINE Pain [place] complaint) is, not elsewhere 3 [address] [facility], [facility] [address] Koko Vasquez, [address] [facility] sis without [address] [place] [facility] [place], myelopathy or [address], [place], [place], radiculopathy, [place], lumbar regionLong [place], [place], [place], [place], [phone] term (current) use [phone] , [place] of opiate , [place]. . tel: analgesic tel: tel: [phone] [facility] No Information Bj Refer [facility] Aurelia. Provider: Pain [place] [address] [address] [facility], [facility], [address] [place], [address], [address] [place], [address] [place], [place], [place], [place], [id number] [place], [address]. , [place] , [place]. tel: tel: tel: [phone] OFFICE/OUTPAT [facility] low back Chronic pain [facility] pain syndromeSpondylosi There se. Provider: NEW Pain [place] (chief s without 3 [address] [facility], complaint) myelopathy or [facility], [address] radiculopathy, [address] [place], lumbar regionLong 100, [address] [place], term (current) use [address], [place], of opiate e, [place], [place], [id number] analgesicEncounter [id number] [place], [address]. , [place] for therapeutic , [place]. tel: tel: drug level tel: [phone] monitoringSacroili [id number] itis, not elsewhere classified Family History Family Member Type Diagnosis Age At Onset Mother Problem Degenerative disc disease Father Problem Degenerative disc disease Father Problem Fibromyalgia Payers Payer name Insurance type Covered constitution party ID Authorization(s ) No Information Social History Type Description Quantity Date Captured Comments Alcohol Use Details Unknown Caffeine Use Details Unknown Tobacco Use Status No Information Smoking Status No Information Sex Female Chief Complaint And Reason For Visit No Information Reason For Referral Reason For Referral No Information Plan Of Treatment Date Type Action Status Goal 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 Due on due Goal AST (SGOT). Due on d ue Goal Medication Reconciliation. Due o n due Goal Unhealthy drug use screening. Du e on due Goal HPV. Due on due Goal PHQ-9. Due on due Goal Review Allergy List. Due on due Goal Tobacco Use. Due on due Goal Update Social History. Due on due Goal Weight. Due on due Goal Height. Due on due Goal OARS. Due on due Goal Order Annual PT. Due on 023 due Goal ALT (SGPT). Due on d ue Goal UDT. Due on due Goal Creatinine. Due on d ue Goal COMPUTERIZED MACHINE FABRIC CUTTER Scanned. Due on due Goal Hepatitis C screening. Due on due Goal Lipid panel. Due on due Goal COMPUTERIZED MACHINE FABRIC CUTTER Scanned. Due on due Goal Order Annual PT. Due on 023 due Goal ALT (SGPT). Due on d ue Goal OARS. Due on due Goal Creatinine. Due on d ue Goal UDT. Due on due Goal Hepatitis C screening. Due on due Goal Review Allergy List. Due on due Goal Unhealthy drug use screening. Du e on due Goal Lipid panel. Due on due Goal PHQ-9. Due on due Goal HPV. Due on due Goal Medication Reconciliation. Due o n due Goal Tobacco Use. Due on due Goal Update Social History. Due on due Goal Weight. Due on due Goal Height. Due on due Goal AST (SGOT). 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 Due on due Goal UDT. Due on due Goal Creatinine. Due on d ue Goal OARS. Due on due Goal ALT (SGPT). Due on d ue Goal Order Annual PT. Due on 023 due Goal COMPUTERIZED MACHINE FABRIC CUTTER Scanned. Due on due Goal 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 Due on due Goal AST (SGOT). Due on d ue Goal Weight. Due on due Goal Medication Reconciliation. Due o n due Goal Tobacco Use. Due on due Goal HPV. Due on due Goal Update Social History. Due on due Goal Hepatitis C screening. Due on due Goal PHQ-9. Due on due Goal Lipid panel. Due on due Goal Review Allergy List. Due on due Goal Unhealthy drug use screening. Du e on due Goal Height. Due on due Goal Unhealthy drug use screening. Du e on due Goal Review Allergy List. Due on due Goal Lipid panel. Due on due Goal PHQ-9. Due on due Goal Hepatitis C screening. Due on due Goal Update Social History. Due on due Goal HPV. Due on due Goal Tobacco Use. Due on due Goal Medication Reconciliation. Due o n due Goal Weight. Due on due Goal Height. Due on due History Of Present Illness Encounter Date Complaint History Of Present I llness Back pain Severity level is 7. Duration: chronic. The problem is stable. It occurs pe rsistently. Location of pain is lower back. Symptoms are relieved by pain meds/drugs. Comments: Gricelda is a 41 y/o woman seen virtually for initial follow up co sonido regarding chronic back pain which began two year s ago. Pain is characterized as sharp pain in her lo wer back. Reports difficulty carrying out daily a ctivities and difficulty with mobility d/t her darin n condition. Pain has been stable since GILDA and pain l evel averages 7/10.S/p RFA procedure on 09/03/22 with ISpi ne which the patient states went well and provided pa in relief; she has noticed that she does not have to sit as often. Also notes that she is still healing. Curre ntly managed on Gabapentin 900mg TID and Kaycee 5-325 QD w hich provide 20% pain relief for increased functional ity. Denies side effects from current medication r egimen.No other concerns today. low back pain Severity level is 8. Duration: chronic. The problem is stable. It occurs pe rsistently. The client describes the pain as sharp. Sympt oms are aggravated by ascending stairs, bending, angie nging positions, lifting, running, sitting, standing, t wisting, walking, housework and movement. Symptoms a re relieved by lying down, massage, pain meds/drugs and rest. Comments: Gricelda is a 41 y/o woman here for initial consult regarding ch ronic back pain which began two years ago. Patient i s referred by Sherlyn. Pain is characterized as sha rp pain in her lower back, and pain level averages 8/10. Reports difficulty carrying out daily activities and difficulty with mobility d/t her pain condition.Sched uled for what patient describes as RFA procedure on 08/11 12/30 with Sherlyn.For pain management, patient has tried PT at [facility] between January and Mar without benefit, ESIs at [facility] without benefit, TENS unit, Cyclobenzaprine, Ibu profen, Prednisone, and Celebrex.Currently m anaged on Gabapentin 900mg TID and Hydrocodone QD.Gricelda is interested in pain management through [facility]. Previo usly f/w [facility] who referred the patient to [facility]. No other concerns today. Functional Status Date Functional Assessment No Information Instructions Date Instruction Additional Informati on No Information Assessments Type Assessment Date No Information Patient Care Teams Name Effective Dates (start - stop) Status M roberta No Information
--- NOTE | 2022-09-29 14:30 | CRLHL7_ITS ---
For Patients: As a result of the Century Cures Act, medical imaging exams and procedure reports are released immediately into your electronic medical record. You may view this report before your referring provider. If you have questions, please contact your health care provider. INDICATION: Concern for multiple sclerosis. History of seizures. TECHNIQUE: Multiplanar multisequence MR imaging acquired through the brain prior to and following intravenous contrast. COMPARISON: None. FINDINGS: The ventricles and sulci are within normal limits for patient age. No mass effect or midline shift. Few punctate T2 FLAIR hyperintensities in the supratentorial white matter, nonspecific. No diffusion restriction to suggest acute infarction. No intracranial hemorrhage or pathologic extra-axial fluid collection. No pathologic intracranial enhancement. The major arterial flow voids of the skullbase are preserved. The globes are symmetric. The paranasal sinuses are well aerated. The mastoid air cells are clear. IMPRESSION: 1. No acute intracranial abnormality. 2. Few punctate T2 FLAIR hyperintensities in the supratentorial white matter are nonspecific, though typical for sequelae of minimal chronic microvascular ischemic changes or migraine headaches. Dictated by Ugo Alvarez MD @ 09/30/2022 11:17:02 AM (Electronically Signed)
== END 2022-09-29 14:19 | disposition home or self-care (01) ==
PROVIDERS: PCP Nurse Practitioner Family; Visit Provider Nurse Practitioner Family
DX: G25.9 Extrapyramidal and movement disorder, unspecified (principal); R25.3 Fasciculation
CPT/HCPCS: 70553; A9575

== ENCOUNTER 2022-10-14 08:05 | Outpatient (CLI) | payer OTHER, SELFPAY ==
[2022-10-14 14:53] LABS: SARS PCR* Negative SARS-CoV-2 (Negative)
== END 2022-10-14 08:06 | disposition home or self-care (01) ==
PROVIDERS: PCP Nurse Practitioner Family; Visit Provider Nurse Practitioner Family
DX: Z20.822 Contact with and (suspected) exposure to COVID-19 (principal); R05.9 Cough, unspecified
CPT/HCPCS: 87635

== ENCOUNTER 2022-11-03 08:26 | Outpatient (CLI) | payer OTHER, SELFPAY ==
[2022-11-03 15:17] LABS: Cholesterol* 199 mg/dL (90-199); Glucose* 97 mg/dL (60-115); HDL Cholesterol* 66 mg/dL (>=50); LDL Cholesterol Calculated 112 mg/dL (<100); Triglycerides* 104 mg/dL (40-149)
== END 2022-11-03 08:27 | disposition home or self-care (01) ==
PROVIDERS: PCP Nurse Practitioner Family; Visit Provider Nurse Practitioner Family
DX: E16.2 Hypoglycemia, unspecified (principal); Z13.29 Encounter for screening for other suspected endocrine disorder
CPT/HCPCS: 80061; 82947; 84443

== ENCOUNTER 2022-12-04 15:34 | Outpatient (CLI) | payer OTHER, SELFPAY ==
--- NOTE | 2022-12-04 15:40 | CRLHL7_ITS ---
For Patients: As a result of the Century Cures Act, medical imaging exams and procedure reports are released immediately into your electronic medical record. You may view this report before your referring provider. If you have questions, please contact your health care provider. BILATERAL SCREENING MAMMOGRAM WITH COMPUTER-AIDED DETECTION TECHNIQUE: CC and MLO views were obtained. These mammographic images have been obtained using full-field digital technique. These mammographic images were interpreted with the benefit of computer-aided detection. COMPARISON FILM: 04/08/18 US and Diag Mammo, 04/05/18 Screening mammogram. FINDINGS: There are scattered areas of fibroglandular density IMPRESSION: There is no radiographic evidence for malignancy. ASSESSMENT: BI-RADS Category 1: Negative RECOMMENDATION: Routine screening mammogram in 1 year. A lay language report of this examination will be provided to the patient. Donis Mccarthy M.D. Diagnostic Radiologist [email or web address] JOSÉ/Dictated by: Donis Mccarthy MD @ 12/11/2022 9:12:00 AM (Electronically Signed)
== END 2022-12-04 15:35 | disposition home or self-care (01) ==
LOC: MAMMO 15:35
PROVIDERS: PCP Nurse Practitioner Family; Visit Provider Nurse Practitioner Family
DX: Z12.31 Encounter for screening mammogram for malignant neoplasm of breast (principal)
CPT/HCPCS: 77067

== ENCOUNTER 2023-03-30 18:03 | Outpatient (CLI) | payer OTHER, SELFPAY ==
--- NOTE | 2023-03-30 18:15 | CRLHL7_ITS ---
For Patients: As a result of the Century Cures Act, medical imaging exams and procedure reports are released immediately into your electronic medical record. You may view this report before your referring provider. If you have questions, please contact your health care provider. Indication: Ongoing neck pain. Technique: T2, T1 and STIR sagittal as well as gradient echo axial sequences were obtained. No IV contrast. Comparison: None available. Findings: Slight reversal of normal cervical lordosis centered at C5-6. No fracture or worrisome bone lesion identified. No high grade central canal stenosis. No spinal cord signal abnormalities are identified. No gross paraspinal pathology is identified. Craniocervical junction and C1-C2: Unremarkable, with a patent foramen magnum. C2-3: The disc and facets are negative. The foramina are patent. C3-4: The disc and facets are negative. The foramina are patent. C4-5: Minor disc degeneration with slight left foraminal narrowing. C5-6: Moderate disc degeneration. The posterior disc osteophyte complex effaces the ventral thecal sac and slightly indents the ventral surface of the cord. Mild foraminal narrowing. C6-7: Small shallow central disc herniation with mild diffuse interbody spurring. The foramina are patent. C7-T1: The disc and facets are negative. The foramina are patent. Impression: 1. At C5-6 there is moderate disc degeneration. A broad posterior disc osteophyte complex slightly indents the ventral surface of the cord at this level. 2. Minor changes of spondylosis elsewhere. Dictated by Kenrick Hickman MD @ 03/31/2023 10:51:24 AM (Electronically Signed)
--- NOTE | 2023-03-30 19:00 | CRLHL7_ITS ---
For Patients: As a result of the Cures Act, medical imaging exams and procedure reports are released immediately into your electronic medical record. You may view this report before your referring provider. If you have questions, please contact your health care provider. INDICATION: Low back and leg pain. TECHNIQUE: Multisequence multiplanar MRI of the lumbar spine without contrast. COMPARISON: MR lumbar spine dated 03/11/2022. FINDINGS: Lumbar lordosis is preserved. Posterior aspects of the vertebral bodies are aligned. Vertebral body heights are maintained and there is no evidence of acute fracture. Pronounced edema about the opposing L5-S1 endplates with increase in L5 vertebral body cystic changes since prior exam. The conus medullaris terminates normally at the L1 level. The visualized spinal cord is normal in signal intensity. Evaluation of the individual levels demonstrates: T12-L1: No significant spinal canal or neural foraminal stenosis. L1-L2 through L4-L5: Symmetric disc bulge without significant spinal canal or neural foraminal stenosis. L5-S1: No significant spinal canal stenosis. Moderate bilateral neural foraminal narrowing from symmetric disc bulge and facet hypertrophy. Probable contact of the transiting right S1 nerve root. IMPRESSION: 1. Pronounced edema about the opposing L5-S1 endplates with increase in L5 vertebral body cystic changes. Post-contrast MRI is suggested to further characterize and evaluate for chronic osteomyelitis/discitis. 2. At L5-S1, moderate bilateral neural foraminal narrowing and disc bulge with probable contact of the transiting right S1 nerve root. Dictated by Albert James MD @ 03/31/2023 11:40:19 AM (Electronically Signed)
--- NOTE | 2023-03-30 19:45 | CRLHL7_ITS ---
For Patients: As a result of the Century Cures Act, medical imaging exams and procedure reports are released immediately into your electronic medical record. You may view this report before your referring provider. If you have questions, please contact your health care provider. Indication: Mid back pain. Technique: T2, T1, and STIR sagittal as well as gradient echo axial sequences were obtained. No IV contrast. Comparison: None available. Findings: Mildly exaggerated thoracic kyphosis. Slight chronic loss of anterior vertebral body height at several mid thoracic levels. No evidence for stress reaction, recent fracture or worrisome bone lesion. Multilevel low-grade disc degenerative changes. At T11-12 there is a small central disc extrusion, without evident lateralization. The central canal is patent. No intrinsic thoracic cord abnormalities identified. The thoracic neural foramina are patent. The paravertebral soft tissues are grossly negative. Impression: 1. Mildly exaggerated thoracic kyphosis. 2. Scattered low-grade disc degenerative changes, with a small central disc herniation at T11-12. 3. No evidence for recent fracture. No large or frankly lateralizing disc herniations are identified. No compromise of the thoracic central spinal canal. Dictated by Kenrick Hickman MD @ 03/31/2023 12:02:17 PM (Electronically Signed)
== END 2023-03-30 18:04 | disposition home or self-care (01) ==
LOC: MRI 18:04
PROVIDERS: PCP Nurse Practitioner Family; Visit Provider Physician Assistant
DX: M54.2 Cervicalgia (principal); M54.50 Low back pain, unspecified; M79.606 Pain in leg, unspecified; M40.294 Other kyphosis, thoracic region; M51.34 Other intervertebral disc degeneration, thoracic region; M51.27 Other intervertebral disc displacement, lumbosacral region; M50.322 Other cervical disc degeneration at C5-C6 level
CPT/HCPCS: 72141; 72146; 72148

== ENCOUNTER 2023-04-21 15:16 | Outpatient (CLI) | payer OTHER, SELFPAY ==
--- OUTSIDE RECORDS SUMMARY | 2023-04-21 15:21 | XMS_ITS | Continuity of Care Document ---
Author Name Unknown Organization [facility] enter Address [address] [place] [phone] Phone Care Team Providers Care Electric Detector Operator Name Role Phone [facility] Unavailable Unava ilable Procedures Procedure Date IMPLANT NEUROELECTRODES Implt neurostim elctr each IMPLANT NEUROELECTRODES Inj for sacroiliac jt anesth Inj for sacroiliac jt anesth Advance Directives Directive Yes / No Effective Date File Name No Information Encounters Encounter Description Practice Location Reason(s) For Visit Diagnoses Date Provider Providers Copied on Encounter [facility], [address] [place] [address], [id number], tel:[phone] [place] [address] [address] [facility]. [address] [place] [address], [id number], [place]. tel:[phone] Referring Provider: Albert Torres, [address] [place], [address] . tel:[phone] [facility], [address] [place] [address], [id number], tel:[phone] [place] [address] No [address] [facility]. [address] [place] [address], [id number], . tel:[phone] Referring Provider: Brittany Nunn, [address] [facility] [place], [address] . tel:[phone] Family History Family Member Type Diagnosis Age At Onset No Information Payers Payer name Insurance type Covered alliance party ID Authorxaviera joselito(s) [facility] [id number] Social History Type Description Quantity Date Captured Comments Sex Female Smoking Status No Information Chief Complaint And Reason For Visit No Information Reason For Referral Reason For Referral No Information History Of Present Illness Encounter Date Complaint History Of Prese nt Illness No Information Functional Status Date Functional Assessmen t No Information Instructions Date Instruction Additional Infor mation No Information Assessments Type Assessment Date No Information Patient Care Teams Name Effective Dates (start - stop) Status Members No Information
--- OUTSIDE RECORDS SUMMARY | 2023-04-21 15:21 | XMS_ITS | Patient Health Record ---
Author Name Unknown Organization [facility] Address [address] [place] [address] [address] [place] [address] Care Team Providers Care Senior Wind Energy Consultant Name Role Phone James Etienne Primary Care Provider [phone] Lito June Unavailable [phone] Morro Ybarra Unavailable Unavailable Darwin Sotrm Unavailable [phone] Johnathon Urrutia Unavailable [phone] ALLERGIES Allergen (clinical drug ingredient) Drug/Non Drug Allergy documented on EMR Reaction Allergy Type Onset Date Status Keflex itchy, rash Drug Allergy Activ e REASON FOR REFERRAL Reason Intracept - L5, S1 ( auth Number [id number] good thru 08/14/22 - 12/12/22) Diagnosis 1 Other chronic pain ( G89.29) Referral Organization [facility] Referring Provider First Name Lito Referring Provider Last Name Shaylee Referring Provider Speciality Pain Medic ine Referred Organization [facility] Referred Provider Lito June Referred Address [address] [place] [address] [address],[place], [place],[address], Referred Provider Specialty Pain Medicin e Referral Priority Routine MEDICATIONS Medication SIG (Take, Route, Frequency, Duration) Notes Start Date End Date Status Gabapentin 300 MG 3 capsules Orally Three times a day Active Fluticasone Propionate HFA Active Cetirizine HCl 10 MG 1 tablet Orally Once a day Active Cyclobenzaprine HCl 10 MG 1 tablet as needed Orally Three times a day for 30 days 07/02/2022 Active Lidocaine 5 % 1 patch remove after 12 hours Externally Once a day Active CeleBREX 100 MG 1 capsule with food Orally Once a day for 30 day(s) 07/30/2022 Active MiraLax 17 GM 1 packet mixed with 8 ounces of fluid Orally Once a day Active busPIRone HCl 30 MG 1 tablet Orally Twice a day Active Pantoprazole Sodium 20 MG 1 tablet Orally Once a day Active SUMAtriptan Succinate 100 MG 1 tablet at least 2 hours between doses as needed Orally Twice a day Active HYDROcodone-Acetaminoph en 5-325 MG 1 tablet as needed Orally once a day for 30 days G89.29 07/30/2022 Active Atomoxetine HCl 80 MG 1 capsule in the morning Orally Once a day Active Cyanocobalamin 1000 MCG/ML as directed Injection Active Escitalopram Oxalate 20 MG 1 tablet Orally Once a day Active levETIRAcetam 500 MG 1 tablet Orally every 12 hrs Active Topiramate 100 MG 1 tablet Orally Once a day Active oxyCODONE-Acetaminophen 5-325 MG 1 tablet as needed Orally every 6 hrs for 4 days Script for post procedure pain 09/03/2022 Active SOCIAL HISTORY Tobacco Use: Social History Observation Description Date Details (start date - stop date) Never Smoker NA - NA Sex Assigned At : Social History Observation Description Sex Assigned At Unknown Tobacco Use/Smoking: Question Answer Notes Are you a nonsmoker Alcohol Screen Question Answer Notes Did you have a drink containing alcohol in the p ast year? No Points 0 Interpretation Negative PROBLEMS Problem Type ICD Code Onset Dates Problem Status W/U Status Risk SNOMED Code Notes Problem Other chronic pain (G89.29) Active confirmed Chronic pain (25764793) Problem Spondylosis without myelopathy or radiculopathy, lumbar region (M47.816) Active confirmed Lumbosacral spondylosis without myelopathy (43873429) Problem Vertebrogenic low back pain (M54.51) Active confirmed Low back pain (finding) (111812592) VITAL SIGNS Heart Rate 83 /min 09/03/2022 Temperature 98.8 degrees Fahrenheit 09/03/2022 Respiratory Rate 16 /min 09/03/2022 Blood pressure diastolic 96 mm Hg 09/03/2022 Height 63 in 09/03/2022 Blood pressure systolic 137 mm Hg 09/03/2022 Weight 173.8 lbs 09/03/2022 BMI 30.78 kg/m2 09/03/2022 PROCEDURES Procedure Date Ordered Date Performed Result Body Sit e Intervention: 07/02/2022 08/12/2022 sched 08/29 Encounters Encounter Location Date Provider Diagnosis [facility] [address] [place] [address] 06/23/2022 James Etienne [facility] [address] [place] [address] 07/08/2022 James Etienne [facility] [address] [place] [address] 07/16/2022 Johnathon Urrutia Spondylosis without myelopathy or radiculopathy, lumbar region M47.816 [facility] [address] [place] [address] 07/24/2022 James Etienne [facility] [address] [place] [address] 07/29/2022 Johnathon Urrutia [facility] [address] [place] [address] 08/13/2022 James Etienne [address] [facility] [address] [place] [address] 08/22/2022 James Etienne [facility] [address] [place] [address] 09/08/2022 Lito June [facility] [address] [place] [address] 09/08/2022 James Etienne [facility] [address] [place] [address] 03/25/2023 James Etienne [address] [facility] [address] [place] [address] 07/02/2022 Johnathon Urrutia Other chronic pain G89.29 and Spondylosis without myelopathy or radiculopathy, lumbar region M47.816 [address] [facility] [address] [place] [address] 07/30/2022 Darwin Bolick Spondylosis without myelopathy or radiculopathy, lumbar region M47.816 and Other chronic pain G89.29 [address] [facility] [address] [place] [address] 09/02/2022 Darwin Storm Other chronic pain G89.29 [facility] [address] [place] [address] [address] [place] [address] 09/03/2022 Lito June [facility] [address] [facility] [address] [place] [address] 08/29/2022 Lito June [facility] [address] [place] [address] [address] [place] [address] 08/29/2022 Litogabriel June [facility] [address] [facility] [address] [place] [address] 09/03/2022 Lito June Vertebrogenic low back pain M54.51 ASSESSMENTS Encounter Date Diagnosis Assessment Notes Treatment Notes Treatment Clinical Notes 07/02/2022 Other chronic pain (ICD-10 - G89.29) Gricelda is a 41 year old female with PMH of anxiety, depression, claustrophobia, seizure disorder, bleeding disorder, arthritis, and migraines who is presenting with low back pain. PLAN:- Conservative: None- Medications: Start Flexeril 10mg BID, start Dyer 5-325mg PRN #8/month- Imaging: Reviewed lumbar MRI and lumbar xray- Injections/interven tions: Order L5-S1 basivertebral nerve ablation with Dr. June- Referrals: None I provided the patient with my card. She will return for further evaluation as needed. I will continue to monitor her progress, adjusting her treatment plan as needed. The patient was ready to learn and had no apparent learning barriers. Their learning preferences includes listening. The diagnosis and treatment plans were explained and the patient expressed understanding of the content. Discharge instructions reviewed verbally. Discussed the risks/benefits of prescribed medication. The patient is aware that medication may be discontinued at any time due to poor compliance with visits, and recommended treatment. The patient was instructed to return to the office as scheduled and call with any questions, problems or concerns. 07/02/2022 Spondylosis without myelopathy or radiculopathy, lumbar region (ICD-10 - M47.816) 07/30/2022 Other chronic pain (ICD-10 - G89.29) Gricelda is a 41-year-old female who is presenting with the above complaints. Gricelda was referred to [facility] by Dr. Ybarra for consideration of basivertebral nerve ablation. This procedure has been ordered and we are awaiting insurance approval. In the meantime, Gricelda would like medication mangement. We discussed opioids and their risk of hyperalgesia, tolerance, and addiction. I have informed Gricelda that I am not intending Dyer use to be technician terminal and repeater. I have advised to her to use it for severe pain only. She understands. PLAN:- Conservative: None- Medications: Refill Dyer 5- 325 mg #30 tabs PRN (30 day supply), increase Flexeril 10 mg TID PRN, Start Celebrex 100 mg- Imaging: None- Injections/interven tions: Pending approval of Intracept procedure- Referrals: None Discharge instructions reviewed verbally. Discussed the risks/benefits of prescribed medication. The patient is aware that medication may be discontinued at any time due to poor compliance with visits, and recommended treatment and/or if patient doesn't adhere to the signed pain contract. The patient was instructed to return to the office as scheduled and call with any questions, problems or concerns. 07/30/2022 Spondylosis without myelopathy or radiculopathy, lumbar region (ICD-10 - M47.816) 09/02/2022 Other chronic pain (ICD-10 - G89.29) 09/03/2022 Vertebrogenic low back pain (ICD-10 - M54.51) 07/16/2022 Spondylosis without myelopathy or radiculopathy, lumbar region (ICD-10 - M47.816) 07/02/2022 Other I, Jess Lorenzo , am serving as a scribe to document services personally performed by Johnathon Urrutia MD, based upon my observations and the provider's statements to me. All documentation has been reviewed by the aforementioned doctor prior to being entered into the official medical record. I, Johnathon Urrutia MD attest that the above named individual is acting in scribe capacity, has observed my performance of the services and has documented them in accordance with my direction. The documentation recorded by the scribe accurately reflects the service I personally performed and the decisions made by me. Thank you very much Dr. Ybarra for kindly referring Gricelda to our practice. It is a pleasure to participate in Gricelda's care. Please feel free to contact me with any questions or concerns. 07/30/2022 Other I, Susan Gentile, am serving as a scribe to document services personally performed by Darwin Storm PA-C, based upon my observations and the provider's statements to me. All documentation has been reviewed by the aforementioned TIA. Lukasz, Darwin Storm PA-C, attest that the above named individual is acting in scribe capacity, has observed my performance of the services and has documented them in accordance with my direction. The documentation recorded by the scribe accurately reflects the service I personally performed and the decisions made during the clinic visit. 09/02/2022 Other I, Celeste chandler, am serving as a scribe to document services personally performed by Darwin Storm PA-C, based upon my observations and the provider's statements to me. All documentation has been reviewed by the aforementioned TIA. Lukasz, Darwin Storm PA-C, attest that the above named individual is acting in scribe capacity, has observed my performance of the services and has documented them in accordance with my direction. The documentation recorded by the scribe accurately reflects the service I personally performed and the decisions made during the clinic visit. 09/03/2022 Other The patient has been cleared to have the above procedure today at [facility] and wishes to proceed. Ok to proceed forward. PLAN OF TREATMENT No Information Insurance Providers Payer Name Payer Address Payer Phone Subscriber Number Group Number Insured Name Patient Relationship to Insured Coverage Start Date Coverage End Date [facility] [address] [place] [address] [id number] Gricelda Roberts Self - patient is the insured [facility] [address] [address] [place], [place] [id number] [phone] [id number] Gricelda Roberts Self - patient is the insured 9 MEDICAL (GENERAL) HISTORY Medical History History ICD Code Acid reflux Anxiety Arthritis Bleeding disorders Claustrophobia Depression Headaches Hernia Migraines Seizure disorder Surgical History Surgery Date(Month/Year) Tonsilectomy Hysterectomy Gallbladder/Appendix removal Gastric Bypass Panniculectomy Knee Arthroscopy Basivertebral Radiofrequency 08/2022
--- OUTSIDE RECORDS SUMMARY | 2023-04-21 15:21 | XMS_ITS | Continuity of Care Document ---
Author Name Unknown Organization [facility] Address [address] [place] [address] Care Team Providers Care Commissary Steward Name Role Phone Bruce Sanford CRNA Unavailable Unavailable Procedures Procedure Date Percutaneous Image guided neuromodulatio n or intra Advance Directives Directive Yes / No Effective Date File Name No Information Encounters Encounter Description Practice Location Reason(s) For Visit Diagnoses Date Provider Providers Copied on Encounter [facility], [address] [place], [place], [id number], [facility] No Information Juvenal Barrera. [address] [facility], [place], [place], [id number] , . tel:[phone] Referring Provider: Albert Torres, [address] [place], [address] . tel:[phone] Family History Family Member Type Diagnosis Age At Onset No Information Payers Payer name Insurance type Covered libertarian ID Reji yee(s) [facility] [id number] Social History Type Description Quantity Date [...]
--- OUTSIDE RECORDS SUMMARY | 2023-04-21 15:21 | XMS_ITS | Continuity of Care Document ---
Author Name Unknown Organization [facility] Address [address] [place] [address] Phone Care Team Providers Care Land Management Forester Name Role Phone Oscar Tamayo MD Unavailable Unavailable Allergies, Adverse Reactions, Alerts Substance Reaction Status Criticality CEPHALEXIN MONOHYDRATE Active No In formation Medications Medication Instructions Dosage Effective Dates (start - stop) Status Comments Valium 2 mg tablet take 1 tab po 45 minutes prior to procedure. May repeat with additional tablet if needed. - Active ATOMOXETINE HCL (unknown strength) Not Available - Active CETIRIZINE HCL (unknown strength) Not Available - Active CYCLOBENZAPRINE HCL (unknown strength) Not Available - Active ESCITALOPRAM OXALATE (unknown strength) Not Available - Active MULTIVITAMINS (unknown strength) Not Available - Active PANTOPRAZOLE SODIUM (unknown strength) Not Available - Active TROSPIUM CHLORIDE (unknown strength) Not Available - Active ONDANSETRON ODT (unknown strength) Not Available - Active PROPRANOLOL HCL (unknown strength) Not Available - Active ZOLMITRIPTAN (unknown strength) Not Available - Active DICLOFENAC POTASSIUM (unknown strength) Not Available - Active MUCINEX (unknown strength) Not Available - Active BUSPIRONE HCL (unknown strength) Not Available - Active KEPPRA (unknown strength) Not Available - Active GABAPENTIN (unknown strength) Not Available - Active VITAMIN B-12 (unknown strength) Not Available - Active TRAZODONE HCL (unknown strength) Not Available - Active SUMATRIPTAN (unknown strength) Not Available - Active Procedures Procedure Date Office/Outpatient Visit,Est, Mod 2022 Office/Outpatient Visit,Est, Low 2022 OFFICE/OUTPATIENT VISIT EST Phone Office/Outpatient Visit,New, Mod 2021 Office/Outpatient Visit,Est, Mod 2018 Office/Outpatient Visit,New, Mod 2017 Advance Directives Directive Yes / No Effective Date File Name No Information Encounters Encounter Description Practice Location Reason(s) For Visit Diagnoses Date Provider Providers Copied on Encounter [facility], [address], [place], [place], [id number], [place] tel:[phone] [facility] [place] No Information 3 Belkis Moore. [facility], [address], [address], [place], [address], [place]. tel: [phone] [facility], [address], [place], [place], [id number], [place] tel:[phone] [facility] No Information 3 Samanta Lomas. [facility], [address], [place], [address], [place]. tel: [phone] Office/Outpat ient Visit,Est, Mod [facility], [address], [place], [place], [id number], [place] tel:[phone] [facility] Radiculopathy , cervical regionRadicul opathy, lumbar regionPain in thoracic spineOther chronic pain 3 Samanta Lomas. [facility], [address], [place], [address], [place]. tel:[phone] Referring Provider: Aranza Marin, [address], [address]. tel:[phone] Office/Outpat ient Visit,Est, Low [facility], [address], [place], [place], [id number], [place] tel:[phone] [facility] [place] No Information 3 Amada Hooker. [facility], [address], [place], [address], [place]. tel:[phone] Referring Provider: Aranza Marin, [address], [address]. tel:[phone] OFFICE/OUTPAT IENT VISIT EST Phone [facility], [address], [place], [place], [id number], [place] tel:[phone] [facility] No Information Nov 2 Amada Hooker. [facility] [place], [address], [place], [address], [place]. [phone] Referring Provider: Aranza Marin, [address], [address]. tel:[phone] Office/Outpat ient Visit,New, Mod [facility], [address], [place], [place], [id number], [place] tel:[phone] [facility] Low back pain, unspecified Sep-0 2 Amada Hooker. [facility] [place], [address], [place], [address], [place]. tel:[phone] Referring Provider: Aranza Marin, [address], [address]. tel:[phone] Office/Outpat ient Visit,Est, Mod [facility], [address], [place], [place], [id number], [place] tel:[phone] [facility] Cervicalgia 9 Amada Hooker. [facility], [address], [place], [address], [place]. [phone] Referring Provider: Morro Ybarra, [facility] [address], [place], [address]. tel:[phone] Office/Outpat ient Visit,New, Mod [facility], [address], [place], [id number], [place] tel:[phone] [facility] - [place] Other cervical disc degeneration at C5-C6 level 8 Xander Cabrera. [facility] [place], [address], [place], [place], [id number] , [place]. tel:[phone] Referring Provider: [facility] [address], [place], [address]. tel:[phone] [facility], [address], [place], [id number], [place] tel:[phone] [facility] [place] Other cervical disc degeneration, high cervical region 8 Amada Hooker. [facility] [place], [address], [place], [address], [place]. tel:[phone] Family History Family Member Type Diagnosis Age At Onset No Information Payers Payer name Insurance type Covered libertarian ID Authoriza tisyed(s) [facility] [id number] Social History Type Description Quantity Date Captured Comments Alcohol Use Details Unknown Caffeine Use Details Unknown Tobacco Use Status No Information Smoking Status No Information Sex Female Chief Complaint And Reason For Visit No Information Reason For Referral Reason For Referral No Information Plan Of Treatment Date Type Action Status Appointment Gricelda Roberts BOOKED History Of Present Illness Encounter Date Complaint History Of Prese nt Illness No Information Functional Status Date Functional Assessmen t No Information Instructions Date Instruction Additional Infor mation No Information Assessments Type Assessment Date No Information Patient Care Teams Name Effective Dates (start - stop) Status Members No Information
--- OUTSIDE RECORDS SUMMARY | 2023-04-21 15:21 | XMS_ITS | Continuity of Care Document ---
Author Name Unknown Organization [facility] Address [address] [facility] [place] [address] Phone Care Team Providers Care Siding Mechanic Name Role Phone Bj CAMPEBLL Aurelia Unavailable Unavailable Allergies, Adverse Reactions, Alerts Substance Reaction Status Criticality CEPHALEXIN MONOHYDRATE Rash Active No In formation Medications Medication Instructions Dosage Effective Dates (start - stop) Status Comments hydrocodone 5 mg-acetaminophen 325 mg tablet take 1 tablet every 4 - 6 hours not to exceed 3 tablets in 24 hours. - Active albuterol sulfate 2.5 mg/3 mL (0.083 %) solution for nebulization Inhale 3 mL (2.5 mg) via a nebulizer every 4 hours if needed for Cough. - Active albuterol sulfate HFA 90 mcg/actuation aerosol inhaler Inhale 1-2 Puffs by mouth every 4 hours if needed (cough). - Active levetiracetam 500 mg tablet - Active trazodone 50 mg tablet - Active ProAir HFA 90 mcg/actuation inhaler INHALE 2 PUFFS BY MOUTH EVERY 4 HOURS NEEDED FOR COUGH - Active ondansetron [address] 1 Tablet (4 mg) on the tongue every 8 hours if needed for nausea. - Active pantoprazole 20 mg tablet,delayed release Take 1 Tablet by mouth in the morning and 1 Tablet in the evening. - Active zolmitriptan 5 mg tablet Take 5 mg by mouth. - Active topiramate 100 mg tablet - Active buspirone 30 mg tablet Take 30 mg by mouth 2 times daily. - Active cetirizine 10 mg tablet Take 1 tablet by mouth once daily. - Active Strattera 80 mg capsule Take 1 capsule by mouth once daily. - Active sumatriptan 100 mg tablet Take 1 tablet by mouth every 2 hours if needed for Migraine. Max dose: 200mg per 24 hrs. - Active cyanocobalamin (vit B-12) 1,000 mcg/mL injection solution Inject intramuscular every 4 weeks. - Active trospium 20 mg tablet Take 20 mg by mout h 2 times daily. - Active escitalopram 20 mg tablet Take 20 mg by mouth once daily. - Active Vazalore 81 mg capsule take 1 capsule by oral route every day 81 MG - Active gabapentin 300 mg capsule take 3 capsule by oral route 3 times every day 900 MG - Active hydrocodone 5 mg-acetaminophen 325 mg tablet take 1 tablet every 4 - 6 hours not to exceed 3 tablets in 24 hours. - No Longer Active Procedures Procedure Date OFFICE VISIT, EST TELEMEDICINE OFFICE/OUTPATIENT VISIT, EST SCS Lead Pull Satellite POSTOP FOLLOW-UP VISIT Within Global Per iod IMPLANT NEUROELECTRODES IMPLANT NEUROELECTRODES ANALYZE NEUROSTIM, COMPLEX Drug Urine Toxology With Chromatography Drug test def 1-7 classes OFFICE/OUTPATIENT VISIT, EST OFFICE/OUTPATIENT VISIT, EST PT EVAL MOD COMPLEX 30 MIN SELF CARE MNGMENT TRAINING Psych Dx Eval Foll-up eval q3mo opiod tx OFFICE/OUTPATIENT VISIT, EST BILATERAL INJECT SACROILIAC JOINT OFFICE/OUTPATIENT VISIT, EST OFFICE VISIT, EST TELEMEDICINE Drug Urine Toxology With Chromatography Drug test def 8-14 classes OFFICE/OUTPATIENT VISIT, NEW Advance Directives Directive Yes / No Effective Date File Name No Information Encounters Encounter Description Practice Location Reason(s) For Visit Diagnoses Date Provider Providers Copied on Encounter OFFICE VISIT, [facility] TELEMEDICINE [facility], [address] [place] [address], [id number] , [place] tel: [phone] [facility] Back Pain (chief complaint) Chronic pain syndromeSacroiliit is, not elsewhere classifiedSpondylo sis without myelopathy or radiculopathy, lumbar regionLong term (current) use of opiate analgesic Sep-0 3 Bj Aurelia. [address], [place], [id number] , [place]. tel: [phone] Referring Provider: Albert Vasquez, [address] [place], [place] [address], [address] . tel:[phone] OFFICE/OUTPAT IENT VISIT, [facility], [address] [place] [address], [id number] , [place] tel: [phone] [facility] Back Pain (chief complaint) Chronic pain syndromeSacroiliit is, not elsewhere classifiedSpondylo sis without myelopathy or radiculopathy, lumbar regionLong term (current) use of opiate analgesic Aug-0 3 Bj Aurelia. [address] [facility] [address], [place], [id number] , [place]. tel: [phone] Referring Provider: Aurelia Rosas, [address] [facility] [address], [place], [address] . tel:[phone] [facility], [address] [place] [address], [id number] , [place] tel: [phone] [facility] Radiculopathy, lumbar region Jason-2 3 Bj Aurelia. [address] [facility] [address], [facility] [place] [id number] , [place]. tel: [phone] Referring Provider: Aurelia Rosas, [address] [place] [address] [address], [place], [address] . tel:[phone] [facility], [address] [place], [place], [id number] , [place] tel: [phone] [facility] [place] Radiculopathy, lumbar region 3 Brian Price. [address] [place], [place], [id number] , [place]. tel: [phone] Referring Provider: Aurelia Rosas, [address] [facility] [address], [place], [address] . tel:[phone] [facility], [address] [place] [address], [id number] , [place] tel: [phone] [facility] [place] No Information 3 Bj Moses. [address] [facility] [address] [facility] [address], [place], [place], [id number] , [place]. tel: [phone] OFFICE/OUTPAT IENT VISIT, EST [facility], [address] [place] [address], [id number] , [place] tel: [phone] [facility] Back Pain (chief complaint) Chronic pain syndromeSacroiliit is, not elsewhere classifiedSpondylo sis without myelopathy or radiculopathy, lumbar regionRadiculopath y, lumbar regionLong term (current) use of opiate analgesicEncounter for therapeutic drug level monitoring 3 Bj Moses. [address] [facility] [address] [facility] [address], [place], [place], [id number] , [place]. tel: [phone] Referring Provider: Aurelia Rosas, [address] [facility] [address], [place], [address] . tel:[phone] OFFICE/OUTPAT IENT VISIT, EST [facility], [address] [place] [address], [id number] , [place] tel: [phone] [facility] Back Pain (chief complaint) Chronic pain syndromeSacroiliit is, not elsewhere classifiedSpondylo sis without myelopathy or radiculopathy, lumbar regionRadiculopath y, lumbar regionLong term (current) use of opiate analgesic 3 Bj Moses. [address] [facility] [address] [facility] [address], [place], [place], [id number] , [place]. tel: [phone] Referring Provider: Aurelia Rosas, [address] [facility] [address], [place], [address] . tel:[phone] [facility], [address] [place] [address], [id number] , [place] tel: [phone] [facility] [place] lumbago (chief complaint) Radiculopathy, lumbar region 3 Sebastian Swanson. [address] [place], [place], [id number] , [place]. tel: [phone] Referring Provider: Aurelia Rosas, [address] [facility] [address], [place], [address] . tel:[phone] [facility], [address] [place] [address], [id number] , [place] tel: [phone] [facility] Radiculopathy, lumbar region 3 Bj Moses. [address] [facility] [address], [place], [place], [id number] , [place]. tel: [phone] Psych Dx Eval [facility], [address] [place] [address], [id number] , [place] tel: [phone] [facility] Pain disorder with related psychological factorsMajor depressive disorder, recurrent, in partial remissionADHDAnxie ty disorder Nov- 3 Adriane Verduzco. [address] [place] [address], [id number] , [place]. tel: [phone] OFFICE/OUTPAT IENT VISIT, EST [facility], [address] [place] [address], [id number] , [place] tel: [phone] [facility] [place] Back pain (chief complaint) Chronic pain syndromeSacroiliit is, not elsewhere classifiedSpondylo sis without myelopathy or radiculopathy, lumbar regionLong term (current) use of opiate analgesicRadiculop athy, lumbar region 3 Bj Aurelia. [address] [facility] [address], [place], [id number] , [place]. tel:[phone] Referring Provider: Albert Vasquez, [address] [place], [place] [address], [address] . tel:[phone] [facility], [address] [place] [address], [id number] , [place] tel:[phone] [facility] No Information 3 Karlie Rosael. [address]55 [facility] [address], [place], [id number] , [place]. tel: [phone] [facility], [address] [place] [address], [id number] , [place] tel: [phone] [facility] Sacroiliitis, not elsewhere classified 3 Arline Soto. [address] [facility] [place], [id number] , [place]. tel: [phone] Referring Provider: Aurelia Rosas, [address] [place] [address] [address], [place], [address] . tel:[phone] OFFICE/OUTPAT IENT VISIT, [facility], [address] [place] [address], [id number] , [place] tel: [phone] [facility] low back pain (chief complaint) Chronic pain syndromeSacroiliit is, not elsewhere classifiedSpondylo sis without myelopathy or radiculopathy, lumbar regionLong term (current) use of opiate analgesic 3 Bj Aurelia. [address] [facility] [address], [place], [id number] , [place]. tel:[phone] Referring Provider: Albert Vasquez, [address] [place], [place] [address], [address] . tel:[phone] OFFICE VISIT, EST TELEMEDICINE [facility], [address] [place], [place], [id number] , [place] tel:[phone] [facility] [place] Back pain (chief complaint) Chronic pain syndromeSacroiliit is, not elsewhere classifiedSpondylo sis without myelopathy or radiculopathy, lumbar regionLong term (current) use of opiate analgesic 3 Bj Aurelia. [address] [facility] [address], [place], [id number] , [place]. tel:[phone] Referring Provider: Albert Vasquez, [address] [place], [address] . tel:[phone] [facility], [address] [place], [place], [id number] , [place] tel:[phone] [facility] [place] No Information 3 Bj Aurelia. [address] [facility] [address], [place], [id number] , [place]. tel:[phone] Referring Provider: Matheus Feliciano, [address], [address]. tel:[phone] OFFICE/OUTPAT IENT VISIT, [facility], [address] [place], [place], [id number] , [place] [phone] [facility] [place] low back pain (chief complaint) Chronic pain syndromeSpondylosi s without myelopathy or radiculopathy, lumbar regionLong term (current) use of opiate analgesicEncounter for therapeutic drug level monitoringSacroili itis, not elsewhere classified 3 Bj Aurelia. [address] [facility] [address], [place], [id number] , [place]. [phone] Referring Provider: Matheus Feliciano, [facility] [address] [place], [address]. tel:[phone] Family History Family Member Type Diagnosis Age At Onset Mother Problem Degenerative disc disease Father Problem Degenerative disc disease Father Problem Fibromyalgia Payers Payer name Insurance type Covered democrat ID Authoriza tion(s) [facility] [place] MC [id number] Social History Type Description Quantity Date Captured Comments Alcohol Use Details No Caffeine Use Details Unknown Tobacco Use Status Current non-smoker Smoking Status Never smoker Sex Female Chief Complaint And Reason For Visit From encounter dated '04/16/2023 13:38'. Back Pain (chief complaint). Description: Severity level is 10. Duration: chronic. The problem is worsening. It occurs persistently. Location of pain is middle back, lower back and neck. Reason For Referral Reason For Referral No Information Plan Of Treatment Date Type Action Status Goal ANALYTICS ANALYST Paperwork. Due on due Goal Order Annual PT. Due on due Goal Creatinine. Due on due Goal UDT. Due on due Goal OARS. Due on due Goal ASSISTANT MANAGER Scanned. Due on due Goal AST (SGOT). Due on due Goal ALT (SGPT). Due on due Goal Review Allergy List. Due on due Goal Unhealthy drug use screening . Due on due Goal Tobacco Use. Due on due Goal Medication Reconciliation. D ue on due Goal Weight. Due on d ue Goal Hepatitis C screening. Due o n due Goal Lipid panel. Due on due Goal PHQ-9. Due on du e Goal Height. Due on d ue Goal HPV. Due on due Goal Update Social History. Due o n due Goal ANALYTICS ANALYST Paperwork. Due on due Goal Hepatitis C screening. Due o n due Goal Tobacco Use. Due on due Goal Order Annual PT. Due on due Goal Creatinine. Due on due Goal ALT (SGPT). Due on due Goal AST (SGOT). Due on due Goal UDT. Due on due Goal ASSISTANT MANAGER Scanned. Due on due Goal OARS. Due on due Goal Height. Due on d ue Goal PHQ-9. Due on du e Goal Update Social History. Due o n due Goal Unhealthy drug use screening . Due on due Goal Review Allergy List. Due on due Goal Lipid panel. Due on due Goal Weight. Due on d ue Goal Medication Reconciliation. D ue on due Goal HPV. Due on due Goal Medication Reconciliation. D ue on due Goal Lipid panel. Due on due Goal Hepatitis C screening. Due o n due Goal Review Allergy List. Due on due Goal HPV. Due on due Goal Update Social History. Due o n due Goal PHQ-9. Due on du e Goal Unhealthy drug use screening . Due on due Goal Height. Due on d ue Goal Tobacco Use. Due on 023 due Goal UDT. Due on due Goal Creatinine. Due on due Goal OARS. Due on due Goal ANALYTICS ANALYST Paperwork. Due on due Goal AST (SGOT). Due on due Goal ASSISTANT MANAGER Scanned. Due on due Goal Weight. Due on d ue Goal Order Annual PT. Due on due Goal ALT (SGPT). Due on due Goal Unhealthy drug use screening . Due on due Goal HPV. Due on due Goal Lipid panel. Due on due Goal PHQ-9. Due on du e Goal Hepatitis C screening. Due o n due Goal Tobacco Use. Due on 023 due Goal OARS. Due on due Goal Creatinine. Due on due Goal AST (SGOT). Due on due Goal Order Annual PT. Due on due Goal ASSISTANT MANAGER Scanned. Due on due Goal UDT. Due on due Goal ANALYTICS ANALYST Paperwork. Due on due Goal ALT (SGPT). Due on due Goal Height. Due on d ue Goal Weight. Due on d ue Goal Medication Reconciliation. D ue on due Goal Review Allergy List. Due on due Goal Update Social History. Due o n due Goal Lipid panel. Due on due Goal Height. Due on d ue Goal Review Allergy List. Due on due Goal Medication Reconciliation. D ue on due Goal Weight. Due on d ue Goal PHQ-9. Due on du e Goal Creatinine. Due on due Goal AST (SGOT). Due on due Goal UDT. Due on due Goal ASSISTANT MANAGER Scanned. Due on due Goal Order Annual PT. Due on due Goal ALT (SGPT). Due on due Goal ANALYTICS ANALYST Paperwork. Due on due Goal OARS. Due on due Goal Hepatitis C screening. Due o n due Goal Tobacco Use. Due on due Goal Unhealthy drug use screening . Due on due Goal Update Social History. Due o n due Goal HPV. Due on due Goal Order Annual PT. Due on due Goal ASSISTANT MANAGER Scanned. Due on due Goal Hepatitis C screening. Due o n due Goal Review Allergy List. Due on due Goal Tobacco Use. Due on due Goal AST (SGOT). Due on due Goal ALT (SGPT). Due on due Goal ANALYTICS ANALYST Paperwork. Due on due Goal Creatinine. Due on due Goal UDT. Due on due Goal OARS. Due on due Goal HPV. Due on due Goal Medication Reconciliation. D ue on due Goal Weight. Due on d ue Goal Lipid panel. Due on due Goal Height. Due on d ue Goal Unhealthy drug use screening . Due on due Goal PHQ-9. Due on du e Goal Update Social History. Due o n due Goal Lipid panel. Due on due Goal Unhealthy drug use screening . Due on due Goal Weight. Due on d ue Goal Medication Reconciliation. D ue on due Goal PHQ-9. Due on du e Goal Update Social History. Due o n due Goal Height. Due on d ue Goal Tobacco Use. Due on due Goal Review Allergy List. Due on due Goal Hepatitis C screening. Due o n due Goal HPV. Due on due Goal UDT. Due on due Goal AST (SGOT). Due on due Goal ANALYTICS ANALYST Paperwork. Due on due Goal OARS. Due on due Goal Order Annual PT. Due on due Goal ALT (SGPT). Due on due Goal Creatinine. Due on due Goal ASSISTANT MANAGER Scanned. Due on due Goal Creatinine. Due on due Goal ASSISTANT MANAGER Scanned. Due on due Goal Order Annual PT. Due on due Goal ALT (SGPT). Due on due Goal Lipid panel. Due on due Goal Unhealthy drug use screening . Due on due Goal Weight. Due on d ue Goal Medication Reconciliation. D ue on due Goal PHQ-9. Due on du e Goal UDT. Due on due Goal AST (SGOT). Due on due Goal Update Social History. Due o n due Goal Height. Due on d ue Goal Tobacco Use. Due on due Goal Review Allergy List. Due on due Goal Hepatitis C screening. Due o n due Goal HPV. Due on due Goal ANALYTICS ANALYST Paperwork. Due on due Goal OARS. Due on due Goal OARS. Due on due Goal Order Annual PT. Due on due Goal AST (SGOT). Due on due Goal ASSISTANT MANAGER Scanned. Due on due Goal ANALYTICS ANALYST Paperwork. Due on due Goal ALT (SGPT). Due on due Goal Hepatitis C screening. Due o n due Goal Update Social History. Due o n due Goal PHQ-9. Due on du e Goal Creatinine. Due on due Goal UDT. Due on due Goal Height. Due on d ue Goal Lipid panel. Due on due Goal HPV. Due on due Goal Weight. Due on d ue Goal Review Allergy List. Due on due Goal Unhealthy drug use screening . Due on due Goal Medication Reconciliation. D ue on due Goal Tobacco Use. Due on due Goal Medication Reconciliation. D ue on due Goal Unhealthy drug use screening . Due on due Goal Hepatitis C screening. Due o n due Goal Review Allergy List. Due on due Goal Height. Due on d ue Goal Weight. Due on d ue Goal Tobacco Use. Due on due Goal AST (SGOT). Due on due Goal Creatinine. Due on due Goal ASSISTANT MANAGER Scanned. Due on due Goal UDT. Due on due Goal Order Annual PT. Due on due Goal OARS. Due on due Goal ALT (SGPT). Due on due Goal ANALYTICS ANALYST Paperwork. Due on due Goal PHQ-9. Due on du e Goal Update Social History. Due o n due Goal HPV. Due on due Goal Lipid panel. Due on due Goal Hepatitis C screening. Due o n due Goal Lipid panel. Due on due Goal Unhealthy drug use screening . Due on due Goal Medication Reconciliation. D ue on due Goal Review Allergy List. Due on due Goal PHQ-9. Due on du e Goal HPV. Due on due Goal Height. Due on d ue Goal Update Social History. Due o n due Goal Order Annual PT. Due on due Goal AST (SGOT). Due on due Goal OARS. Due on due Goal ASSISTANT MANAGER Scanned. Due on due Goal ALT (SGPT). Due on due Goal Creatinine. Due on due Goal ANALYTICS ANALYST Paperwork. Due on due Goal UDT. Due on due Goal Tobacco Use. Due on due Goal Weight. Due on d ue Goal AST (SGOT). Due on due Goal ANALYTICS ANALYST Paperwork. Due on due Goal ASSISTANT MANAGER Scanned. Due on due Goal Order Annual PT. Due on due Goal ALT (SGPT). Due on due Goal OARS. Due on due Goal Creatinine. Due on due Goal UDT. Due on due Goal Hepatitis C screening. Due o n due Goal Review Allergy List. Due on due Goal Unhealthy drug use screening . Due on due Goal Lipid panel. Due on due Goal PHQ-9. Due on du e Goal HPV. Due on due Goal Medication Reconciliation. D ue on due Goal Tobacco Use. Due on due Goal Update Social History. Due o n due Goal Weight. Due on d ue Goal Height. Due on d ue Goal ANALYTICS ANALYST Paperwork. Due on due Goal ASSISTANT MANAGER Scanned. Due on due Goal Order Annual PT. Due on due Goal ALT (SGPT). Due on due Goal OARS. Due on due Goal Creatinine. Due on due Goal UDT. Due on due Goal AST (SGOT). Due on due Goal HPV. Due on due Goal Update Social History. Due o n due Goal Hepatitis C screening. Due o n due Goal PHQ-9. Due on du e Goal Lipid panel. Due on 023 due Goal Review Allergy List. Due on due Goal Unhealthy drug use screening . Due on due Goal Height. Due on d ue Goal Weight. Due on d ue Goal Medication Reconciliation. D ue on due Goal Tobacco Use. Due on 023 due Goal Medication Reconciliation. D ue on due Goal Tobacco Use. Due on 023 due Goal HPV. Due on due Goal Update Social History. Due o n due Goal Hepatitis C screening. Due o n due Goal Height. Due on d ue Goal Weight. Due on d ue Goal PHQ-9. Due on du e Goal Lipid panel. Due on 023 due Goal Review Allergy List. Due on due Goal Unhealthy drug use screening . Due on due History Of Present Illness Encounter Date Complaint History Of Prese nt Illness Comments: Gricelda is a 42 y/o female who presents for follow up and medication refill in the setting of chronic low back pain and SI joint pain. She is accompanied by her today who also contributes to her discussion of care. Pain has been worse this month. Recently met with [facility] who recommended updating her MRI with contrast. Scheduled for later this month. Plans to discuss her MRI with surgeon to determine if additional surgical intervention is needed. Reports current medication regimen provides 75% pain relief and allows for increased functionality. Continues to utilize [place] 5-325mg with significant benefit. Denies OIC or other side effects from current medication regimen. No other concerns today. Back Pain Severity level i s 10. Duration: chronic. The problem is worsening. It occurs persistently. Location of pain is middle back, lower back and neck. Comments: Gricelda is a 42 y/o female who presents for follow up and medication refill in the setting of chronic low back pain and SI joint pain. She is accompanied by her today who also contributes to her discussion of care. Pain has been fluctuating this month. Notes intermittent pulsating of muscles of the low back S/p Celeste SCS trial on 01/27/[address] Torres provided minimal relief. Will not be proceeding with the SCS implant due to the incomplete benefit she received. Notes she is willing to consider other procedural treatments at future visits.Reports current medication regimen provides 75% pain relief and allows for increased functionality. Rates her pain as 9/10 without medications and 5/10 with medications. Continues to utilize [place] 5-325mg with significant benefit. Denies OIC or other side effects from current medication regimen. No other concerns today. Back Pain Severity level i s 5. Duration: chronic. The problem is fluctuating. It occurs persistently. The client describes the pain as an ache, burning, sharp and tingling. Symptoms are aggravated by bending, lifting, running, sitting, standing, twisting, walking, housework, movement, stairs and prolonged positioning. Symptoms are relieved by pain meds/drugs and rest. Back Pain Severity level i s 5. Duration: chronic. The problem is fluctuating. It occurs persistently. Location of pain is lower back. The client describes the pain as an ache and sharp. Symptoms are aggravated by ascending stairs, bending, descending stairs, lifting, running, sitting, standing, twisting, walking, housework, movement and prolonged positioning. Symptoms are relieved by lying down. Comments: Gricelda is a 41 y/o woman here for follow up consult regarding chronic back pain which began two years ago. S/p RFA procedure on 09/03/22 with [facility]. Pain is characterized as sharp and aching pain in her lower back. Pain has been fluctuating since GILDA. She states that she is recovering from previous bout of intestinal bacteria she contracted from eating frog legs. Her GI /diarrhea exacerbated her pain. Pt previously had scheduled SCS trial on 01/[address] Torres, states she had to reschedule but is awaiting call on rescheduling. Also reports that she has yet to receive her TENs unit. Current medication regimen provides moderate pain relief for increased functionality. Farlington 5-325mg provides moderate pain benefit. Pt presents with no medications for count, but states she forgot pills at home, and is on track. Denies side effects from current medication regimen. No other concerns today. Back Pain Severity level i s 5. Duration: chronic. The problem is worsening. Location of pain is lower back and BL Knees. The client describes the pain as an ache and sharp. Symptoms are aggravated by ascending stairs, bending, descending stairs, lifting, running, sitting, standing, twisting, walking, movement, prolonged positioning and housework. Symptoms are relieved by pain meds/drugs and changing positions. Comments: Gricelda is a 41 y/o woman here for follow up consult regarding chronic back pain which began two years ago. S/p RFA procedure on 09/03/22 with [facility]. Pain is characterized as sharp and aching pain in her lower back. Pain has worsened since GILDA. She states that she feels jolts of pain with coughing now. Utilizes a cane to ambulate. Patient is accompanied by her during today's visit.Pt now has scheduled SCS trial on 01/[address] Torres. She has since completed PT and Psych Evaluation. Current medication regimen provides moderate pain relief for increased functionality. Would like to establish [facility] contract for Farlington 5-325mg. Denies side effects from current medication regimen. No other concerns today. carlos Damon is a 42 year old female with complaints of lower back pain . IT is located lower back and into he pelvic area and tailbone and left posterior thigh. Pain is constant sharp pain, tender and throbbing. Patient reports there is temporary relief with lying down. She report no change in symptoms with the use of with cold or heat. TENS helps slightly temporarily. and topicals. Patient has tried multiple, interventions with injections, and ablations with temporary partial relief. Did extensive physical therapy but resulted in increase in pain. Patient reports the pain increase with PT would interfere with her daily activity for days. Patient limits sitting, standing, walking bending lifting and carrying . 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 Patient is hopeful the SCS will help her tolerate her daily activity with less limitation. Comments: Gricelda is a 41 y/o woman here for follow up consult regarding chronic back pain which began two years ago. S/p RFA procedure on 09/03/22 with [facility]. Pain is characterized as sharp and aching pain in her lower back. Pain has worsened since GILDA. Utilizes a cane to ambulate.Patient is accompanied by her during today's visit.S/p Bilateral Sacroiliac Joint Injection on 10/22/22 which provided minimal relief - approximately 10% pain relief, though only for a short amount of time.Upon discussion, the patient is amendable to trialling a SCS.Current medication regimen provides moderate pain relief for increased functionality. Inquires about have another short-script of Farlington 5-325mg filled today for pain management, as she awaits SCS trial. Denies side effects from current medication regimen. No other concerns today. Back pain Duration: chroni c. The problem is worsening. Location of pain is lower back. The client describes the pain as an ache and sharp. Symptoms are aggravated by ascending stairs, bending, descending stairs, lifting, lying/rest, running, sitting, standing, twisting, walking, housework, movement and prolonged positioning. Symptoms are relieved by heat, pain meds/drugs and changing positions. low back pain Severity level i s 8. Duration: chronic. The problem is stable. Location of pain is lower back. The client describes the pain as an ache and sharp. Symptoms are aggravated by ascending stairs, bending, descending stairs, lifting, running, sitting, standing, twisting, walking, housework, movement and prolonged positioning. Symptoms are relieved by heat, lying down, pain meds/drugs, rest and changing positions. Comments: Gricelda is a 41 y/o woman here for follow up consult regarding chronic back pain which began two years ago. S/p RFA procedure on 09/03/22 with [facility]. Pain is characterized as sharp and aching pain in her lower back. Pain has been stable since GILDA and pain level averages 8/10. Reports that she feels a knot in the middle of her back. Previously ordered TENS unit, however, patient has not received call back, or obtained the TENS unit device. She would like to trial. Patient is accompanied by her during today's visit.Currently managed on Gabapentin 900mg TID which provides 25% pain relief for increased functionality, reducing her pain level to 4/10. Also utilizes Topamax for bladder control. Denies side effects from current medication regimen. No other concerns today. Comments: Gricelda is a 41 y/o woman seen virtually for initial follow up consult regarding chronic back pain which began two years ago. Pain is characterized as sharp pain in her lower back. Reports difficulty carrying out daily activities and difficulty with mobility d/t her pain condition. Pain has been stable since GILDA and pain level averages 7/10.S/p RFA procedure on 09/03/22 with [facility] which the patient states went well and provided pain relief; she has noticed that she does not have to sit as often. Also notes that she is still healing. Currently managed on Gabapentin 900mg TID and Far[place] 5-325 QD which provide 20% pain relief for increased functionality. Denies side effects from current medication regimen.No other concerns today. Back pain Severity level i s 7. Duration: chronic. The problem is stable. It occurs persistently. Location of pain is lower back. Symptoms are relieved by pain meds/drugs. Comments: Gricelda is a 41 y/o woman here for initial consult regarding chronic back pain which began two years ago. Patient is referred by [facility]. Pain is characterized as sharp pain in her lower back, and pain level averages 8/10. Reports difficulty carrying out daily activities and difficulty with mobility d/t her pain condition.Scheduled for what patient describes as RFA procedure on 09/03/22 with [facility].For pain management, patient has tried PT at [facility] between January and March 2022 without benefit, ESIs at [facility] without benefit, TENS unit, Cyclobenzaprine, Ibuprofen, Prednisone, and Celebrex.Currently managed on Gabapentin 900mg TID and Hydrocodone QD.Gricelda is interested in pain management through [facility]. Previously f/w [facility] who referred the patient to Sherlyn. No other concerns today. low back pain Severity level i s 8. Duration: chronic. The problem is stable. It occurs persistently. The client describes the pain as sharp. Symptoms are aggravated by ascending stairs, bending, changing positions, lifting, running, sitting, standing, twisting, walking, housework and movement. Symptoms are relieved by lying down, massage, pain meds/drugs and rest. Functional Status Date Functional Assessmen t No Information Instructions Date Instruction Additional Infor kari No Information Assessments Type Assessment Date assessment Chronic pain syndrome impression Forwarded HX: Gricelda is a 42 y/o female here with chronic low back pain with difficulty carrying out daily activities and mobility, initial onset 2 years ago. Hx of gastric bypass in 2011. Pain has progressively worsened over the past several years. Have tried PT through [facility] (01/2022-03/2022), ESIs, and TENS unit without benefit assessment Sacroiliitis, not elsewhere clas sified impression Tenderness in the SI joints. Previous physical exam showed: (+) SI joint TendernessS/p BL SI Joint Injection on 10/22/[address] 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 Scheduled to meet with [facility] for surgical consult after updated MRI on 04/20. Previous RFAs provided benefit. S/p Celeste SCS trial on 01/27/[address] Torres provided minimal relief. Will not be proceeding with the SCS implant due to the incomplete benefit she received.Previous physical exam showed:(+) BL Noa's (+) BL Thigh Thrust(+) Pelvic compressionLumbar XR on 04/15/22CONCLUSION:1. L5-S1 advanced disc degeneration/spondylosis.2. No listhesis or dynamic instability.3. No fracture, vertebral collapse, or destructive osseous pathology.Lumbar MRI on 03/11/22CONCLUSION:1. L5-S1 severe degenerative disc disease with inflammatory endplate change which may represent a cause of axial low back pain. Left posterior lateral and foraminal extruded disc herniation with impingement upon the traversing left S1 nerve. Moderate to severe bilateral foraminal stenosis with L5 ganglion impingement.2. L3-4 3 mm right foraminal and lateral disc protrusion contacting the right L3 nerve lateral to the foramen assessment halfway (current) use of opiat e analgesic impression The medication provi xiomara 75% pain relief, does not cause significant side effects, increases the patient's daily activity level, and the patient presents on track with the prescribed medication today.Tried: Cyclobenzaprine, Ibuprofen, Prednisone, and Celebrex.MME is 15mg/day. Patient has been managing medications appropriately, and is not confused or oversedated during our office visit. MNPMP queried and showed no outside prescriptions. UDT results from 01/13/23 reviewed and are consistent with current medication regimen. Appropriate to continue with opioid therapy Mental Status Date Cognitive Assessment Orientation - [place] ed to time, place, person, situation. Patient Care Teams Name Effective Dates (start - stop) Status Members No Information
--- NOTE | 2023-04-21 15:30 | CRLHL7_ITS ---
For Patients: As a result of the Century Cures Act, medical imaging exams and procedure reports are released immediately into your electronic medical record. You may view this report before your referring provider. If you have questions, please contact your health care provider. Indication: Lumbar stenosis with neurogenic claudication Technique: Multiplanar, multisequence, MRI of the lumbar spine, obtained without and with contrast. A total of 15 mL of gadolinium based IV contrast was administered. Comparison: MRI lumbar spine 03/30/2023 Findings: Preserved lumbar lordosis with minor dextroconvex curvature, potentially positional. Trace retrolisthesis at L2-3, L3-4 and L4-5. No acute osseus abnormality. Vertebral body heights are grossly maintained. Redemonstration of T1 hypointense, T2/STIR hyperintense endplate changes at L5-S1, with mild corresponding bony enhancement noted on this exam. No suspicious intradiscal fluid signal identified. No suspicious prevertebral, paraspinal, or epidural fluid collections identified. The conus medullaris terminates at L1-2. Cauda equina nerve roots appear normal in course and caliber. Scattered spondylosis as previously detailed, greatest at L5-S1, where laterally eccentric disc-osteophyte complex mildly encroaches upon the exiting bilateral L5 nerve roots along the moderately stenosed neural foraminal. Impression: 1. Re-demonstration of edematous marrow signal changes at the L5-S1 endplates. However, given the lack of suspicious peripherally enhancing prevertebral, paraspinal, or epidural fluid collections, this is favored to represent spondylitic flash Modic type 1 change. No convincing evidence to suggest discitis-osteomyelitis on this exam. 2. Redemonstration of moderate bilateral L5-S1 neural foraminal stenosis, with lateral eccentric disc-osteophyte complex mildly encroaching upon the exiting L5 nerve roots bilaterally. Dictated by Stephanie Barros MD @ 04/22/2023 9:42:03 AM (Electronically Signed)
== END 2023-04-21 15:17 | disposition home or self-care (01) ==
LOC: MRI 15:18
PROVIDERS: PCP Nurse Practitioner Family; Visit Provider Physician Assistant
DX: M48.062 Spinal stenosis, lumbar region with neurogenic claudication (principal); M48.07 Spinal stenosis, lumbosacral region
CPT/HCPCS: 72158; A9575

== ENCOUNTER 2023-05-05 22:07 | Outpatient (REF) | payer OTHER, SELFPAY ==
[2023-05-05 22:40] LABS: Basophils Absolute Auto 0.08 K/uL (0.00-0.30); Basophils Percent Auto 1.1 % (0.0-3.0); Eosinophils Absolute Auto 0.19 K/uL (0.00-0.50); Eosinophils Percent Auto 2.7 % (0.0-7.0); Hematocrit 38.9 % (33.0-51.0); Immature Granulocytes Abs Auto 0.05 K/uL (0.00-0.30); Immature Granulocytes Pct Auto 0.7 %; Lymphocytes Absolute Auto 2.32 K/uL (0.90-2.90); Lymphocytes Percent Auto 33.3 % (20-44); Mean Corpuscular HGB Conc 33 gm/dL (32-36); Mean Corpuscular Hemoglobin 31 pg (26-34); Mean Corpuscular Volume 92 fL (80-100); Monocytes Percent Auto 8.2 % (0.0-11.0); Neutrophils Absolute Auto 3.76 K/uL (1.7-7.0); Platelet Count* 282 K/uL (140-440); RDW Coefficient of Variation % 12.3 % (11.5-15.5); Red Blood Count 4.21 m/uL (4.00-5.20); White Blood Count* 6.97 K/uL (4.50-11.00)
[2023-05-05 22:58] LABS: C Reactive Protein* < 0.5 mg/dL (0.5-1.0); Slide Review Reflex No
[2023-05-05 23:02] LABS: Erythrocyte SedimentationRate* 3 mm/hr (2-20)
== END 2023-05-05 22:08 | disposition home or self-care (01) ==
LOC: NPINS 22:07
PROVIDERS: PCP Nurse Practitioner Family; Visit Provider Physician Assistant
DX: M48.02 Spinal stenosis, cervical region (principal)
CPT/HCPCS: 85025; 85651; 86140

== ENCOUNTER 2024-01-29 11:01 | Outpatient (CLI) | payer MEDICAID, SELFPAY ==
--- OUTSIDE RECORDS SUMMARY | 2024-01-29 11:05 | XMS_ITS | Clinical Summary ---
Author Organization [facility] Address [address] [place] [address]. [place] [address] Care Team Providers Care Technology Strategist Name Role Phone Matheus Feliciano MD Primary Care Provider Car Joel MD Unavailable [phone] Allergies Active Allergy Reactions Criticality Noted Date Comments Cephalexin Hcl Itching,Rash High 01/01/2012 Medications Medication Sig Dispensed Refills Start Date End Date Status busPIRone HCl (BUSPAR) 30 MG tablet Take 30 mg by mouth 2 times daily Active SUMAtriptan (IMITREX) 100 MG tablet Take 100 mg by mouth every 8 hours as needed Active atomoxetine (STRATTERA) 80 MG capsule Take 80 mg by mouth daily. Active Multiple Vitamins-Minerals (MULTIVITAMIN & MINERAL PO)Indications:Baria tric surgery status,Overweight and obesity(278.0) Take 1 tablet by mouth every morning Active calcium carbonate-vitamin D (CALCIUM 500 + D) 500-400 MG-UNIT TABS tabltIndications:Bar iatric surgery status,Overweight and obesity(278.0) Take 1 tablet by mouth 3 times daily 90 tablet 11 07/13/2013 Active cyanocobalamin 1000 MCG/ML injectionIndications :Bariatric surgery status,Overweight and obesity(278.0) Inject 1 mL (1,000 mcg) into the muscle every 30 days 1 mL 11 07/13/2013 Active escitalopram (LEXAPRO) 20 MG tablet Take 20 mg by mouth daily Active levETIRAcetam (KEPPRA) 500 MG tablet Take 500 mg by mouth 2 times daily Active topiramate (TOPAMAX) 100 MG tablet Take 100 mg by mouth At Bedtime Active gabapentin (NEURONTIN) 300 MG capsule Take 900 mg by mouth 3 times daily (takes 3 x 300mg) Active fluticasone (FLONASE) 50 MCG/ACT nasal spray [place] 30 mcg in nostril daily as needed Active vitamin D3 (CHOLECALCIFEROL) 50 mcg (2000 units) tablet Take 2,000 Units by mouth daily Active omega 3 1000 MG CAPS Take 1 g by mouth daily Active ondansetron (ZOFRAN-ODT) 4 MG ODT tab Take 4 mg by mouth every 6 hours as needed 09/21/2019 Active lidocaine (LIDODERM) 5 % patch Place 1 patch onto the skin daily as needed 08/26/2018 Active adapalene (DIFFERIN) 0.1 % external cream Apply topically At Bedtime Active cetirizine (ZYRTEC) 10 MG tablet Take 10 mg by mouth daily as needed Active polyethylene glycol (MIRALAX) 17 g packet Take 1 packet by mouth daily Active doxylamine (UNISOM) 25 MG TABS tablet Take 50 mg by mouth At Bedtime (take 2 x 25mg) Active cyclobenzaprine (FLEXERIL) 10 MG tabletIndications:Po stoperative pain Take 0.5-1 tablets (5-10 mg) by mouth 2 times daily as needed for muscle spasms 10 tablet 05/04/2020 Active pantoprazole (PROTONIX) 20 MG EC tabletIndications:Ot her acute gastritis without hemorrhage TAKE 1 TABLET BY MOUTH TWICE DAILY 30 tablet 3 02/17/2022 Active pantoprazole (PROTONIX) 20 MG EC tabletIndications:Kinjal dinero follow-up examination,History of Cora-en-Y gastric bypass Take 1 tablet (20 mg) by mouth 2 times daily 30 tablet 11 08/20/2022 Active ketoconazole (NIZORAL) 2 % external creamIndications:Inez jan follow-up examination,Eczema intertrigo,History of Cora-en-Y gastric bypass Apply topically daily 60 g 3 08/20/2022 Active Active Problems Problem Noted Date Diagnosed Date Hiatal hernia 03/22/2020 Overview: Added automatically from request for surgery [id number] Bariatric surgery status 11/17/2019 Malnutrition following gastrointestinal surgery 11/17/2019 Class 1 obesity due to exces s calories without serious comorbidity with body mass index (BMI) of 30.0 to 30.9 in adult 11/17/2019 Cervicalgia 09/09/2017 Chronic bilateral low back pain without sciatica 09/09/2017 Resolved Problems Problem Noted Date Diagnosed Date Resolved Date Sprain of thoracic region 01/14/2011 Sprain of lumbar region 01/14/201102/08 Immunizations Name Administration Dates Next Due TD,PF 7+ (Tenivac) 03/20/2007 Family History Medical History Relation Comments Colon Cancer No family hx of Social History Tobacco Use Types Packs/Day Years Used Date Smoking Tobacco: Former Cigarettes Smokeless Tobacco: Never Comments:as a child Alcohol Use Standard Drinks/Week Comments No 0 (1 standard drink = 0.6 oz pur e alcohol) Adolescent Education Answer Date Record ed Getting School Help Needed Not on file 05/26 Sex and Gender Information Value Date Recorded Sex Assigned at Female 06/29/2021 12:12 PM [employer] Gender Identity Female 06/29/2021 12:12 PM [employer] Sexual Orientation Straight 06/29/2021 12 :12 PM [employer] Last Filed Vital Signs Vital Sign Reading [...] 1981 ANNUAL REVIEW OF HM ORDERS 1981 MAMMO SCREENING 1981 URINE DRUG SCREEN 1981 YEARLY PREVENTIVE VISIT 1981 HIV SCREENING 1996 HEPATITIS C SCREENING 11/13/1999 HEPATITIS B IMMUNIZATION (1 of 3 - 19+ 3-dose series) 2000 LIPID 2021 PAP 11/19/2021 11/19/2018 COVID-19 Vaccine ( season) 2023 07/17/2021, 12/18/2020, 11/22/2020 PHQ-2 (once per calendar year) 2023 GLUCOSE 02/10/2024 02/09/2021, 09/0 12/2019, 04/13/2020, Additional history exists INFLUENZA VACCINE (Season Ended) 2024 10/07/2021, 07/17/2021, 06/21/2020, Additional history exists DTAP/TDAP/TD IMMUNIZATION (2 - Td or Tdap) 11/03/2027 11/02/2017, 03/20/2007, 03/20/2007 HPV IMMUNIZATION Aged Out No longer e ligible based on patient's age to complete this topic IPV IMMUNIZATION Aged Out No longer e ligible based on patient's age to complete this topic MENINGITIS IMMUNIZATION Aged Out No l onger eligible based on patient's age to complete this topic Pneumococcal Vaccine: Pediatrics (0 to 5 Years) and At-Risk Patients (6 to 64 Years) Aged Out No longer eligible based on patient's age to complete this topic RSV MONOCLONAL ANTIBODY Aged Out No l onger eligible based on patient's age to complete this topic Medical Devices Implanted Type Area Steel Spar Operator Device Identifier Shelf Expiration Date Model / Serial / Lot Mesh Bio-A Tissue Reinforcement 7x10cm [id number] Implanted:Qty: 1 on 04/12/2020 by Car Joel MD at [facility] Mesh N/A: Abdomen [employer] [id number] 10/09/2022 [id number] / [id number] / Procedures Procedure Name Priority Date/Time Associated Diagnosis Comments BASIC METABOLIC PANEL STAT 02/09/2021 9:46 PM CDT from Last 3 Months or Most Recently Relevant to Health Maintenance Results * Basic metabolic panel (02/09/2021 9:46 PM CDT) Sodium 138 133 - 144 mmol/L 02/09/2021 9:59 PM CDT [facility] Potassium 3.6 3.4 - 5.3 mmol/L 02/09/2021 9:59 PM CDT [facility] Chloride 106 94 - 109 mmol/L 02/09/2021 9:59 PM [facility] Carbon Dioxide 28 20 - 32 mmol/L 02/09/2021 10:05 PM [facility] Anion Gap 4 3 - 14 mmol/L 02/09/2021 10:05 PM [facility] Glucose 81 70 - 99 mg/dL 02/09/2021 10:05 PM [facility] Urea Nitrogen 9 7 - 30 mg/dL 02/09/2021 10:05 PM [facility] Creatinine 1.04 0.52 - 1.04 mg/dL 02/09/2021 10:05 PM [facility] GFR Estimate 68 >60 mL/min/{1. 73_m2} 02/09/2021 10:05 PM [facility] Comment: Non GFR Calc Starting 07/27/2018, serum creatinine based estimated GFR (eGFR) will be calculated using the Chronic Kidney Disease Epidemiology Collaboration (CKD-EPI) equation. GFR Estimate If Black 78 >60 mL/min/{1. 73_m2} 02/09/2021 10:05 PM [facility] Comment: GFR Calc Starting 07/27/2018, serum creatinine based estimated GFR (eGFR) will be calculated using the Chronic Kidney Disease Epidemiology Collaboration (CKD-EPI) equation. Calcium 8.6 8.5 - 10.1 mg/dL 02/09/2021 10:05 PM [facility] Blood 02/09/2021 9:46 PM CDT 02/09/2021 9:49 PM CDT Jesus Vigil MD LAB - BLOOD ORDERABL ES [facility] [address] [place] [address], [facility] [phone] from Last 3 Months or Most Recently Relevant to Health Maintenance Advance Directives For more information, please contact: [phone] * Full Code (Latest Code Status on File) Date Activated Date Inactivated Comments 04/12/2020 2:31 PM 04/14/2020 3:50 PM All basic and advanced life-sustaining interventions are performed as appropriate Question Answer Comments Code status determined by: Unable to det ermine; FULL CODE until documents or legal decision maker available Care Teams Technology Strategist Relationship Specialty Start Date End Date Matheus Feliciano MD [address] [place] [address] [place] [id number] PCP - General 03/23/20 Car Joel MD [id number] [facility] [id number] [place] [id number] Assigned Surgical Provider 06/01/20
--- OUTSIDE RECORDS SUMMARY | 2024-01-29 11:05 | XMS_ITS | Clinical Summary ---
Author Organization [employer] [facility] Address [place], [place] [address] Care Team Providers Care Manager Integration Name Role Phone Aranza Marin NP Primary Care Provider [phone] Allergies Active Allergy Reactions Criticality Noted Date Comments Cephalexin Rash 06/11/2010 Medications Medication Sig Dispensed Refills Start Date End Date Status cyanocobalamin (VITAMIN B12) 1,000 mcg/mL injection Inject intramuscular every 4 weeks. 0 2 Active SUMAtriptan (IMITREX) 100 mg tablet Take 1 tablet by mouth every 2 hours if needed for Migraine. Max dose: 200mg per 24 hrs. 0 2 Active Atomoxetine (STRATTERA) 80 mg capsule Take 1 capsule by mouth once daily. 0 2 Active cetirizine (ZYRTEC) 10 mg tabletIndications: Other allergic rhinitis Take 1 tablet by mouth once daily. 30 tablet 0 5 Active escitalopram oxalate (LEXAPRO) 20 mg tablet Take 20 mg by mouth once daily. Active gabapentin (NEURONTIN) 300 mg capsule Take 900 mg by mouth 3 times daily. 99 6 Active fluticasone (50 mcg per actuation) nasal solution (FLONASE) Inhale 2 Sprays to both nostrils once daily. 6 Active busPIRone (BUSPAR) 30 mg tablet Take 30 mg by mouth 2 times daily. 0 Active CHOLECALCIFEROL, VITAMIN D3, ORAL Take 2,000 units by mouth once daily. Active trospium (SANCTURA) 20 mg tablet Take 20 mg by mouth 2 times daily. Active MULTIVITAMIN ORAL Take 1 Tablet by mouth once daily. Active calcium carbonate (OS-MARCELLUS 500) 500 mg calcium (1,250 mg) tablet Take 500 mg by mouth. Active levETIRAcetam (KEPPRA) 500 mg tablet 500 mg two times daily. 2 Active pantoprazole (PROTONIX) 20 mg tablet Take 1 Tablet by mouth in the morning and 1 Tablet in the evening. 1 Active topiramate (TOPAMAX) 100 mg tablet 1 Active traZODone (DESYREL) 50 mg tablet 100 mg at bedtime. 2 Active ZOLMitriptan (ZOMIG) 5 mg tablet Take 5 mg by mouth. 1 Active Relpax 40 mg tablet TAKE 1/2 TO 1 TABLET AT ONSET HEADACHE. MAY REPEAT DOSE IN 2 HOURS NEEDED. MAXIMUM DAILY DOSE IS 2 TABLETS. MUST LAST 30 DAYS 3 Active ketoconazole 2% topical (NIZORAL) cream APPLY TOPICALLY TO THE AFFECTED AREA DAILY Active diclofenac topical (VOLTAREN) 1 % gel APPLY 4 GRAMS TOPICALLY TO THE AFFECTED AREA FOUR TIMES DAILY FOR 7 DAYS Active ondansetron (ZOFRAN ODT) 4 mg disintegrating tablet Take 4 mg by mouth one time if needed. 3 Active WalkerIndications: Impaired mobility,Spinal stenosis, lumbosacral region Walker with front wheels for home use. 1 Each 3 Active Dextromethorphan-g uaFENesin (Mucinex DM) 30-600 mg TABLET EXTENDED RELEASE 12 HRIndications:Nasa l congestion Take 1 Tablet by mouth once daily if needed for Cough. 3 Active methocarbamoL (ROBAXIN) 750 mg tabletIndications: Acute post-operative pain Take 1 Tablet (750 mg) by mouth four times daily. 20 Tablet 3 Active oxyCODONE (ROXICODONE) 5 mg immediate release tabletIndications: Acute post-operative pain Take 1-3 Tablets (5-15 mg) by mouth every 4 hours. 60 Tablet 3 Active Ventolin HFA 90 mcg/actuation inhaler Inhale 2 Puffs by mouth every 4 hours if needed for Shortness Of Breath. 4 Active cyclobenzaprine (FLEXERIL) 10 mg tablet Take 10 mg by mouth once daily if needed for Muscle Spasm. 4 Active HYDROcodone-acetam inophen (5-325 mg/tablet)Indicati ons:Acute colitis Take 1 Tablet by mouth every 4 hours if needed for Pain. Max acetaminophen dose: 4000 mg in 24 hrs. 7 Tablet 4 Active HYDROcodone-acetam inophen (5-325 mg/tablet)Indicati ons:Acute colitis Take 1 Tablet by mouth every 4 hours if needed for Pain. Max acetaminophen dose: 4000 mg in 24 hrs. 7 Tablet 4 01/21/20 24 Discontinued Active Problems Problem Noted Date Diagnosed Date Spinal stenosis, lumbosacral region 06/08/2023 Seizure 06/08/2023 GERD (gastroesophageal reflux disease) 3 ADHD 06/08/2023 Cat bite 08/04/2018 S/P gastric bypass 04/15/2012 Insomnia, unspecified 10/13/2011 Opioid dependence 10/13/2011 Migraine, unspecified, witho ut mention of intractable migraine without mention of status migrainosus 10/13/2011 Major depression, recurrent (Sees Dr. Tc Segal, [place]) 10/13/2011 Morbid obesity - post bypass. 06/11/2010 Hypothyroid Chronic low back pain Resolved Problems Problem Noted Date Diagnosed Date Resolved Date Unspecified hypothyroidism 06/11/2010 1 09/22/2009 Presence of intrauterine con traceptive device (IUD) Mirina 05/10/2010 06/11/2010 04/08/2011 Menorrhagia - severe (IUD treatment) 06/11/2010 04/08/2011 Overview: Had Progesterone IUD placed specifically as treatment (tubal ligation) Encounters Date Type Department Care Team Description 01/22/2024 4:56 PM CDT - 01/22/2024 11:59 PM CDT Hospital Encounter [facility] [address] [place] [address] 01/21/2024 5:28 PM CDT - 01/21/2024 9:48 PM CDT Emergency [facility] [address] [place] [address] Marysol Nobles MD Tudor, Laura Ann, DO Acute colitis (Primary Dx) Discharge Disposition: Home Self Care 01/21/2024 Travel 12/21/2023 4:03 PM CDT - 12/21/2023 5:41 PM CDT Emergency [facility] [address] [place] [address] Edmond Talamantes PA Withdrawal complaint (Primary Dx) Discharge Disposition: Home Self Care 12/21/2023 Travel 11/24/2023 5:59 PM CDT - 11/24/2023 8:08 PM CDT Emergency [facility] [address] [place] [address] Katia Hinojosa NP Tailbone injury, initial encounter (Primary Dx); Lumbar sprain, initial encounter Discharge Disposition: Home Self Care 11/24/2023 5:05 PM CDT Office Visit [facility] [address] [place] [address] Brittany Beebe DO Back Injury (Possible tailbone fracture; OI 11/21/23 while getting into position to slide down a slide at [facility] 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 Pain extending from tailbone to mid back, worse on the right side, agrravated with sitting. ) 11/24/2023 Travel from Last 3 Months Immunizations Name Administration Dates Next Due Imovax 08/18/2018,08/11/2018,08/07/2018 ,08/04/2018 Influenza, IIV3 (Age >=3 years) 06/17/2013 Tdap 11/02/2017,03/20/2007 Family History Medical History Relation Name Comments Good Health Brother 3 Good Health Brother 4 Good Health Daughter 3 Good Health Daughter 4 Hypertension Father Heart Disease Maternal Grandfather [place] and age 40. Heart Disease Mother Recent stress test revealed blockage Heart Disease Paternal Grandfather [place] age 30's (maybe) Heart Disease Paternal Grandmother [...] Years Used Date Smoking Tobacco: Former Cigarettes 1.2 5 0 08/10/1992 - 08/10/1997 Smokeless Tobacco: Never Tobacco Cessation:Counseling Given: Not Answered Alcohol Use Standard Drinks/Week Comments No 0 (1 standard drink = 0.6 oz pur e alcohol) occasionally Social Connections Answer Date Recorded Frequency of Communication with Friends and Fami ly 0 09/28/2022 Financial Resource Strain Answer Date R ecorded Difficulty of Paying Living Expenses 3 09/28/2022 Difficulty of Paying Living Expenses Not on file 09/28/2022 Food Insecurity Answer Date Recorded Worried About Running Out of Food in the Last Ye ar 1 09/28/2022 Transportation Needs Answer Date Record ed Lack of Transportation (Medical) 1 09/28/2022 Housing Stability Answer Date Recorded Unable to Pay for Housing in the Last Year 1 09/28/2022 Sex and Gender Information Value Date Recorded Sex Assigned at Not on file Gender Identity Not on file Sexual Orientation Not on file Obstetrics History Last Filed Vital Signs Vital Sign Reading Time Taken Comments Blood Pressure 121/89 01/21/2024 5:26 PM CDT Pulse 71 01/21/2024 5:26 PM CDT Temperature 37.1 ??C (98.7 ??F) 01/21/2024 5:26 PM CD T Respiratory Rate 17 01/21/2024 5:26 PM CDT Oxygen Saturation 96% 01/21/2024 5:26 PM CDT Inhaled Oxygen Concentration - - Weight 83 kg (183 lb) 01/21/2024 5:26 PM CDT Height 160 cm (5' 3) 01/21/2024 5:26 PM CDT Body Mass Index 32.42 01/21/2024 5:26 PM CDT Plan of Treatment Health Maintenance Due Date Last Done Comments Depression screening for age 12+ 1993 HIV for age 15-65 1996 Hepatitis C screening for age 18-79 11/13/1999 BMI (ht and wt on same day) for age 18+ 03/26/2022 03/26/2021, 03/18/2021, 07/23/2019, Additional history exists COVID-19 vaccine series (2022-24 season) 2023 07/17/2021, 12/18/2020, 11/22/2020 Influenza for age 9-49 04/10/2024 3 (Completed outside of [facility]), 06/17/2013 Tetanus booster 11/03/2027 11/02/2017, 03/20/2007 Tdap Completed 11/02/2017, 03/20/2007 Pneumococcal series for age 6-64 Aged Out No longer eligible based on patient's age to complete this topic Medical Devices Implanted Type Area Director Of Accounts Receivable Device Identifier Shelf Expiration Date Model / Serial / Lot Enrique Lmbr 40x5.5mm Tsrh 3d Cvd Titnm - [id number] Implanted:Qty: 2 on 06/08/2023 by Guille Wheeler MD at [facility] Spine Implants Lumbar Vertebrae Medtronic Spine/Ortho [id number] / / Stent Uret [id number] Contour - [id number] Implanted:Qty: 1 on 02/06/2021 by Rebel Bernstein MD at [facility] Left: Ureter BSC Urology 11/15/2023 [id number] / / [id number] Bone 1-4mm 30cc Medtronic Chips Canclls Frozen - [id number] Implanted:Qty: 1 on 06/08/2023 by Guille Wheeler MD at [facility] Lumbar Vertebrae Medtronic Spine/Ortho 12/12/2027 [id number] / [id number] / [id number] Bone Matrix 6cc [employer] Dbf Putty Dbm - [id number] Implanted:Qty: 1 on 06/08/2023 by Guille Wheeler MD at [facility] Lumbar Vertebrae Medtronic Spine/Ortho 04/30/2025 [id number] / [id number] / Spacer Spinal 06a77pm [employer] - [id number] Implanted:Qty: 1 on 06/08/2023 by Guille Wheeler MD at [facility] Lumbar Vertebrae Medtronic Spine/Ortho 03/30/2031 [id number] / / [id number] Set Screw Lmbr Tsrh 3dx - [id number] Implanted:Qty: 4 on 06/08/2023 by Guille Wheeler MD at [facility] Lumbar Vertebrae Medtronic Spine/Ortho [id number] / / Cnnctr Lmbr Sm Tsrh 3dx Offsettitnm - [id number] Implanted:Qty: 4 on 06/08/2023 by Guille Wheeler MD at [facility] Lumbar Vertebrae Medtronic Spine/Ortho [id number] / / Screw Lmbr Post 6.5x45mm Tsrh 3dx Og Thin Va - [id number] Implanted:Qty: 2 on 06/08/2023 by Guille Wheeler MD at [facility] Lumbar Vertebrae Medtronic Spine/Ortho [id number] / / Screw Lmbr Post 7.5x35mm Tsrh 3dx Og Thin Va - [id number] Implanted:Qty: 2 on 06/08/2023 by Guille Wheeler MD at [facility] Lumbar Vertebrae Medtronic Spine/Ortho [id number] / / Procedures Procedure Name Priority Date/Time Associated Diagnosis Comments STOOL PATHOGEN MULTIPLEX PCR PANEL STAT 01/22/2024 3:[address] ABDOMEN PELVIS W STAT 01/21/2024 7 :49 PM CDT RED CELL MORPHOLOGY STAT 01/21/2024 6 :31 PM CDT PLATELET ESTIMATE STAT 01/21/2024 6:3 1 PM CDT MANUAL DIFFERENTIAL STAT 01/21/2024 6 :31 PM CDT CBC WITH AUTO DIFFERENTIAL STAT 01/21/2024 6:31 PM CDT LIPASE STAT 01/21/2024 6:31 PM CDT HEPATIC FUNCTION PANEL STAT 01/21/2024 6:31 PM CDT BASIC METABOLIC PANEL STAT 01/21/2024 6:31 PM CDT CBC WITH AUTO DIFFERENTIAL STAT 01/21/2024 6:31 PM CDT UA W/ SEDIMENT EXAM REFLEXED PER CRITERIA STAT 01/21/2024 6:22 PM CDT XR SPINE LUMBAR 2 VIEWS STAT 11/24/2023 6:43 PM CDT XR SACRUM AND COCCYX MINIMUM 2 VIEWS STAT 11/24/2023 6:42 PM CDT from Last 3 Months Results * STOOL PATHOGEN MULTIPLEX PCR PANEL (01/22/2024 3:50 PM CDT) Pathologist [facility] Campylobacter NOT Detected NOT Detected 01/24/2024 10:51 AM CDT [facility] Salmonella NOT Detected NOT Detected 01/24/2024 10:51 AM CDT [facility] Shigella NOT Detected NOT Detected 01/24/2024 10:51 AM CDT [facility] Vibrio NOT Detected NOT Detected 01/24/2024 10:51 AM CDT [facility] Yersinia Enterocolitica NOT Detected NOT Detected 01/24/2024 10:51 AM CDT [facility] Shiga Toxin 1 NOT Detected NOT Detected 01/24/2024 10:51 AM CDT [facility] Shiga Toxin 2 NOT Detected NOT Detected 01/24/2024 10:51 AM CDT [facility] Norovirus NOT Detected NOT Detected 01/24/2024 10:51 AM CDT [facility] Rotavirus NOT Detected NOT Detected 01/24/2024 10:51 AM CDT [facility] Stool STOOL SPECIMEN / Unknown Non-Blood / Unknown 01/22/2024 3:50 PM CDT 01/22/2024 5:36 PM CDT [facility] - 01/24/2024 10:51 AM CDT This test is a Culture Independent Diagnostic Test (CIDT) therefore isolates are not available for susceptibility testing. ??Antibiotic treatment is often contraindicated and may be detrimental in cases of enteric infections, thus routine susceptibility testing is not recommended. Marysol Nobles MD MICROBIOLOGY [facility] [address] [place] [address], [place] * CT ABD/PELVIS W IV CONTRAST (01/21/2024 7:49 PM CDT) Anatomical Region Laterality Modality Abdomen, Pelvis, AORTA, LIVER, SPLEEN Computed Tomography 01/21/2024 8:49 PM CDT Impressions 01/21/2024 8:49 PM CDT 1. Mild circumferential urinary bladder wall thickening, concerning for cystitis. Recommend correlation with urinalysis. 2. Long segment mild colitis involving the descending and rectosigmoid colon. 3. New sclerosis at the posterior right iliac bone, query interval surgical manipulation. Please note that all CT scans at this facility use dose modulation, iterative reconstruction, and/or weight-based dosing when appropriate to reduce radiation dose to as low as reasonably achievable. Dictated by Desi Fuentes MD @ 01/21/2024 8:49:17 PM (Electronically Signed) Narrative 01/21/2024 8:49 PM CDT For Patients: ??As a result of the 21st Century Cures Act, medical imaging exams and procedure reports are released immediately into your electronic medical record. ??You may view this report before your referring provider. ??If you have questions, please contact your health care provider. INDICATION: Abdominal/flank pain, hematuria. TECHNIQUE: CT abdomen and pelvis acquired with 100 mL Omnipaque 300 contrast. COMPARISON: CT abdomen/pelvis dated 01/03/2023. FINDINGS: Lower chest: No focal consolidation. Liver: No suspicious focal hepatic lesion. Gallbladder and bile ducts: Gallbladder is surgically absent. Prominence of the biliary ducts, likely secondary to postcholecystectomy state. Pancreas: Unremarkable. Spleen: Unremarkable. Splenule is noted. Adrenal glands: Unremarkable. Kidneys: Kidneys enhance symmetrically, without hydronephrosis. ?? Retroperitoneum: No lymphadenopathy. Bowel and mesentery: Bowel is not obstructed. No significant ascites, no pneumoperitoneum. Long segment mild colitis involving the descending and rectosigmoid colon. Stable postsurgical changes of gastric bypass. Bladder: Mild circumferential bladder wall thickening. Reproductive organs: Unremarkable. Pelvic lymph nodes: No lymphadenopathy. Vessels: Unremarkable. Abdominal wall: No acute abdominal wall abnormality. Bones: Multilevel degenerative changes of the spine. Bones are osteopenic. Postsurgical changes at L5-S1. New sclerosis at the posterior right iliac bone, query surgical manipulation. Procedure Note Desi Fuentes MD - 01/21/2024 For Patients: As a result of the Century Cures Act, medical imagingexams and procedure reports are released immediately into your electronicmedical record. You may view this report before your referring provider.If you have questions, please contact your health care provider. INDICATION: Abdominal/flank pain, hematuria. TECHNIQUE: CT abdomen and pelvis acquired with 100 mL Omnipaque 300 contrast. COMPARISON: CT abdomen/pelvis dated 01/03/2023. FINDINGS: Lower chest: No focal consolidation. Liver: No suspicious focal hepatic lesion. Gallbladder and bile ducts: Gallbladder is surgically absent. Prominenceof the biliary ducts, likely secondary to postcholecystectomy state. Pancreas: Unremarkable. Spleen: Unremarkable. Splenule is noted. Adrenal glands: Unremarkable. Kidneys: Kidneys enhance symmetrically, without hydronephrosis. Retroperitoneum: No lymphadenopathy. Bowel and mesentery: Bowel is not obstructed. No significant ascites, nopneumoperitoneum. Long segment mild colitis involving the descending andrectosigmoid colon. Stable postsurgical changes of gastric bypass. Bladder: Mild circumferential bladder wall thickening. Reproductive organs: Unremarkable. Pelvic lymph nodes: No lymphadenopathy. Vessels: Unremarkable. Abdominal wall: No acute abdominal wall abnormality. Bones: Multilevel degenerative changes of the spine. Bones are osteopenic.Postsurgical changes at L5-S1. New sclerosis at the posterior right iliacbone, query surgical manipulation. IMPRESSION: 1. Mild circumferential urinary bladder wall thickening, concerning forcystitis. Recommend correlation with urinalysis. 2. Long segment mild colitis involving the descending and rectosigmoidcolon. 3. New sclerosis at the posterior right iliac bone, query intervalsurgical manipulation. Please note that all CT scans at this facility use dose modulation,iterative reconstruction, and/or weight-based dosing when appropriate toreduce radiation dose to as low as reasonably achievable. Dictated by Desi Fuentes MD @ 01/21/2024 8:49:17 PM (Electronically Signed) Marysol Nobles MD CT * CBC WITH AUTO DIFFERENTIAL (01/21/2024 6:31 PM CDT) [facility] WHITE BLOOD COUNT 7.3 4.5 - 11.0 thou/cu mm 01/21/2024 7:30 PM CDT [facility] RED BLOOD COUNT 4.17 4.00 - 5.20 mil/cu mm 01/21/2024 7:30 PM CDT [facility] HEMOGLOBIN 13.1 12.0 - 16.0 g/dL 01/21/2024 7:30 PM CDT [facility] HEMATOCRIT 39.0 33.0 - 51.0 % 01/21/2024 7:30 PM CDT [facility] MCV 94 80 - 100 fL 01/21/2024 7:30 PM CDT [facility] MCH 31.4 26.0 - 34.0 pg 01/21/2024 7:30 PM CDT [facility] MCHC 33.6 32.0 - 36.0 g/dL 01/21/2024 7:30 PM CDT [facility] RDW 12.8 11.5 - 15.5 % 01/21/2024 7:30 PM CDT [facility] PLATELET COUNT 300 140 - 440 thou/cu mm 01/21/2024 7:30 PM CDT [facility] MPV 10.1 6.5 - 11.0 fL 01/21/2024 7:30 PM CDT [facility] Blood BLOOD SPECIMEN / Unknown Butterfly / Unknown 01/21/2024 6:31 PM CDT 01/21/2024 6:36 PM CDT Marysol Nobles MD HEMATOLOGY [facility] [address] [place] [address] * RED CELL MORPHOLOGY (01/21/2024 6:31 PM CDT) [facility] RBC COMMENT RBC morphology appears normal RBC morphology appears normal, RBC morphology within normal limits for newborns. 01/21/2024 7:30 PM CDT [facility] Blood BLOOD SPECIMEN / Unknown Butterfly / Unknown 01/21/2024 6:31 PM CDT 01/21/2024 6:36 PM CDT Marysol Nobles MD HEMATOLOGY Performing Organization Address [facility]/ZIP Co de Phone Number [facility] [address] [place] [address] * PLATELET ESTIMATE (01/21/2024 6:31 PM CDT) PLATELET ESTIMATE Adequate Adequate, No estimate 01/21/2024 7:30 PM CDT [facility] Blood BLOOD SPECIMEN / Unknown Butterfly / Unknown 01/21/2024 6:31 PM CDT 01/21/2024 6:36 PM CDT Marysol Nobles MD HEMATOLOGY Performing Organization Address City/[facility]/ZIP Co de Phone Number [facility] [address] [place] [address] * (ABNORMAL) MANUAL DIFFERENTIAL (01/21/2024 6:31 PM CDT) % NEUTROPHILS 48.0 % 01/21/2024 7:30 PM T [facility] % LYMPHOCYTES 37.0 % 01/21/2024 7:30 PM CDT [facility] % MONOCYTES 13.0 % 01/21/2024 7:30 PM CDT [facility] % EOSINOPHILS 1.0 % 01/21/2024 7:30 PM T [facility] % BASOPHILS 1.0 % 01/21/2024 7:30 PM T [facility] NEUTROPHILS ABSOLUTE 3.5 1.7 - 7.0 thou/cu mm 01/21/2024 7:30 PM T [facility] LYMPHOCYTES ABSOLUTE 2.7 0.9 - 2.9 thou/cu mm 01/21/2024 7:30 PM CDT [facility] MONOCYTES ABSOLUTE 0.9(H) <0.9 thou/cu mm 01/21/2024 7:30 PM CDT [facility] EOSINOPHILS ABSOLUTE 0.1 <0.5 thou/cu mm 01/21/2024 7:30 PM CDT [facility] BASOPHILS ABSOLUTE 0.1 <0.3 thou/cu mm 01/21/2024 7:30 PM CDT [facility] Blood BLOOD SPECIMEN / Unknown Butterfly / Unknown 01/21/2024 6:31 PM CDT 01/21/2024 6:36 PM CDT Marysol Nobles MD HEMATOLOGY Performing Organization Address [facility]/ZIP Co de Phone Number [facility] [address] [place] [address] * (ABNORMAL) LIPASE (01/21/2024 6:31 PM CDT) LIPASE 409.0(H) 13.0 - 60.0 IU/L 01/21/2024 7:14 PM CDT [facility] Blood BLOOD SPECIMEN / Unknown Butterfly / Unknown 01/21/2024 6:31 PM CDT 01/21/2024 6:36 PM CDT Marysol Nobles MD CHEMISTRY Performing Organization Address City/[facility]/ZIP Co de Phone Number [facility] [address] [place] [address] * (ABNORMAL) HEPATIC FUNCTION PANEL (01/21/2024 6:31 PM CDT) ALBUMIN 4.1 4.0 - 4.9 g/dL 01/21/2024 6:58 PM CDT [facility] PROTEIN,TOTAL 6.2 6.0 - 8.0 g/dL 01/21/2024 6:58 PM CDT [facility] BILIRUBIN,TOTAL 0.3 0.0 - 1.2 mg/dL 01/21/2024 6:58 PM CDT [facility] BILIRUBIN,DIRECT <0.2 0.0 - 0.3 mg/dL 01/21/2024 6:58 PM T [facility] BILIRUBIN,INDIRE CT 01/21/2024 6:58 PM [facility] Comment:Unable to calculate, Direct Bili <0.2 ALK PHOSPHATASE 58 35 - 104 IU/L 01/21/2024 6:58 PM T [facility] ALT (SGPT) 8(L) 10 - 35 IU/L 01/21/2024 6:58 PM T [facility] AST (SGOT) 20 10 - 35 IU/L 01/21/2024 6:58 PM [facility] Blood BLOOD SPECIMEN / Unknown Butterfly / Unknown 01/21/2024 6:31 PM CDT 01/21/2024 6:36 PM CDT Marysol Nobles MD CHEMISTRY Performing Organization Address City/State/[facility] Co de Phone Number [facility] [address] [place] [address] * (ABNORMAL) BASIC METABOLIC PANEL (01/21/2024 6:31 PM CDT) SODIUM 142 136 - 145 mmol/L 01/21/2024 6:58 PM [facility] POTASSIUM 3.6 3.5 - 5.1 mmol/L 01/21/2024 6:58 PM [facility] CHLORIDE 106 98 - 107 mmol/L 01/21/2024 6:58 PM [facility] CO2,TOTAL 27 22 - 29 mmol/L 01/21/2024 6:58 PM [facility] ANION GAP 9 5 - 18 01/21/2024 6:58 PM [facility] GLUCOSE 87 70 - 99 mg/dL 01/21/2024 6:58 PM [facility] CALCIUM 8.6 8.6 - 10.0 mg/dL 01/21/2024 6:58 PM [facility] BUN 6 6 - 20 mg/dL 01/21/2024 6:58 PM [facility] CREATININE 0.74 0.50 - 0.90 mg/dL 01/21/2024 6:58 PM [facility] BUN/CREAT RATIO 8(L) 10 - 20 6:58 PM T [facility] eGFR >90 >90 mL/min/1.7 3m2 01/21/2024 6:58 PM [facility] Comment:As of 2021, eG FR is calculated by the CKD-EPI creatinine equation without race adjustment. ??eGFR can be influenced by muscle mass, exercise, and diet. ??The reported eGFR is an estimation only and is only applicable if the renal function is stable. Blood BLOOD SPECIMEN / Unknown Butterfly / Unknown 01/21/2024 6:31 PM CDT 01/21/2024 6:36 PM CDT Marysol Nobles MD CHEMISTRY [facility] [address] [place] [address] * URINALYSIS W REFLEX MICROSCOPIC IF POSITIVE (01/21/2024 6:22 PM CDT) COLOR Yellow Yellow Color 01/21/2024 7:11 PM [facility] CLARITY Clear Clear Clarity 01/21/2024 7:11 PM [facility] SPECIFIC GRAVITY,URINE 1.020 1.010, 1.015, 1.020, 1.025 01/21/2024 7:11 PM [facility] PH,URINE 6.5 6.0, 7.0, 8.0, 5.5, 6.5, 7.5, 8.5 01/21/2024 7:11 PM [facility] UROBILINOGEN, QUALITATIVE Normal Normal EU/dl 01/21/2024 7:11 PM [facility] PROTEIN, URINE Negative Negative mg/dL 01/21/2024 7:11 PM [facility] GLUCOSE, URINE Negative Negative mg/dL 01/21/2024 7:11 PM CDT [facility] KETONES,URINE Negative Negative mg/dL 01/21/2024 7:11 PM CDT [facility] BILIRUBIN,URI NE Negative Negative 01/21/2024 7:11 PM CDT [facility] OCCULT BLOOD,URINE Negative Negative 01/21/2024 7:11 PM CDT [facility] NITRITE Negative Negative 01/21/2024 7:11 PM CDT [facility] LEUKOCYTE ESTERASE Negative Negative 01/21/2024 7:11 PM CDT [facility] Urine URINE SPECIMEN / Unknown Non-Blood / Unknown 01/21/2024 6:22 PM CDT 01/21/2024 7:06 PM CDT Marysol Nobles MD URINE Performing Organization Address City/State/[facility] Co de Phone Number [facility] [address] [place] [address] * XR SPINE LUMBAR 2 VIEWS (11/24/2023 6:43 PM CDT) Anatomical Region Laterality Modality LUMBAR SPINE Digital Radiogra phy 11/24/2023 6:51 PM CDT Narrative 11/24/2023 6:51 PM CDT For Patients: ??As a result of the Cures Act, medical imaging exams and procedure reports are released immediately into your electronic medical record. ??You may view this report before your referring provider. ??If you have questions, please contact your health care provider. Indication: Trauma Technique: Two views of the lumbar spine. Comparison: 09/10/2023 Findings: Postsurgical changes from posterior spinal fusion at L5-S1. Multiple abdominal surgical clips and upper abdominal staple lines. No acute fracture or hardware complication. Mild multilevel degenerative changes of the visualized spine. Impression: Postsurgical changes from posterior spinal fusion at L5-S1. No acute fracture or hardware complication. Dictated by Rebel Robison MD @ 11/24/2023 6:51:38 PM (Electronically Signed) Procedure Note Mike Robison MD - 11/24/2023 For Patients: As a result of the Cures Act, medical imagingexams and procedure reports are released immediately into your electronicmedical record. You may view this report before your referring provider.If you have questions, please contact your health care provider. Indication: Trauma Technique: Two views of the lumbar spine. Comparison: 09/10/2023 Findings: Postsurgical changes from posterior spinal fusion at L5-S1. Multiple abdominal surgical clips and upper abdominal staple lines. No acute fracture or hardware complication. Mild multilevel degenerative changes of the visualized spine. Impression: Postsurgical changes from posterior spinal fusion at L5-S1. No acutefracture or hardware complication. Dictated by Rebel Robison MD @ 11/24/2023 6:51:38 PM (Electronically Signed) Katia Hinojosa DESIGN ENG GENERAL MARIAJOSE GING * XR SACRUM AND COCCYX MINIMUM 2 VIEWS (11/24/2023 6:42 PM CDT) Anatomical Region Laterality Modality Pelvis, SACRUM, COCCYX Digital R adiography 11/24/2023 6:47 PM CDT Narrative 11/24/2023 6:47 PM CDT For Patients: ??As a result of the s , medical imaging exams and procedure reports are released immediately into your electronic medical record. ??You may view this report before your referring provider. ??If you have questions, please contact your health care provider. Indication: Fall. Technique: Three views sacrum and coccyx. Comparison: None. Findings/Impression: No acute displaced fracture or malalignment. Lumbosacral fixation hardware. Bilateral SI joint arthrosis. Joint spaces are maintained. Bony mineralization is age appropriate. Dictated by Donis Loco MD @ 11/24/2023 6:47:02 PM (Electronically Signed) Procedure Note Donis Loco MD - 11/24/2023 For Patients: As a result of the s Act, medical imagingexams and procedure reports are released immediately into your electronicmedical record. You may view this report before your referring provider.If you have questions, please contact your health care provider. Indication: Fall. Technique: Three views sacrum and coccyx. Comparison: None. Findings/Impression: No acute displaced fracture or malalignment. Lumbosacral fixationhardware. Bilateral SI joint arthrosis. Joint spaces are maintained. Bony mineralization is age appropriate. Dictated by Donis Loco MD @ 11/24/2023 6:47:02 PM (Electronically Signed) Katia Hinojosa NP GENERAL MARIAJOSE GING from Last 3 Months Advance Directives * Full Code (Latest Code Status on File) Date Activated Date Inactivated Comments 06/08/2023 10:03 AM 06/10/2023 5:18 PM Question Answer Comments Code Status Discussion: Reviewed Preferences * Full Code Date Activated Date Inactivated Comments 02/06/2021 6:35 AM 02/06/2021 3:07 PM Question Answer Comments Code Status Discussion: Not Discussed * Full Code Date Activated Date Inactivated Comments 09/19/2020 7:23 AM 09/19/2020 1:10 PM Question Answer Comments Code Status Discussion: Not Discussed * Full Code Date Activated Date Inactivated Comments 10/10/2010 9:11 AM 10/12/2010 3:40 PM * Full Code Date Activated Date Inactivated Comments 01/28/2008 10:10 AM 01/28/2008 5:52 PM Care Teams Manager Integration Relationship Specialty Start Date End Date Aranza Marin NP [address] [place] [address] PCP - General Emergency Medicine 05/20/23
--- OUTSIDE RECORDS SUMMARY | 2024-01-29 11:05 | XMS_ITS | Encounter Summary ---
Author Organization [facility] Address [address] [place] [address]. [place] [address] Care Team Providers Care Booth Cashier Name Role Phone Matheus Feliciano MD Primary Care Provider [phone] Car Joel MD Unavailable [phone] Encounter Details Date Type Department Care Team (Late st Contact Info) Description 08/07/2022 Telephone [facility] [address] 4[address] [place] [address] Car Joel MD [address] [facility] [address] [place] [id number] Social History Tobacco Use Types Packs/Day Years Used Date Smoking Tobacco: Former Cigarettes Smokeless Tobacco: Never Comments:as a child Alcohol Use Standard Drinks/Week Comments No 0 (1 standard drink = 0.6 oz pur e alcohol) Sex and Gender Information Value Date Recorded Sex Assigned at Female 06/29/2021 12:12 PM STOCK FITTER Gender Identity Female 06/29/2021 12:12 PM STOCK FITTER Sexual Orientation Straight 06/29/2021 12 :12 PM STOCK FITTER documented as of this encounter Miscellaneous Notes * Telephone Encounter - Chica Rush - 08/07/2022 3:47 PM CST Patient called stating she needs to schedule a visit with Dr Joel to refill her pantoprazole (PROTONIX) 20 MG EC tablet. [phone] K FITTER documented in this encounter Plan of Treatment Not on file documented as of this encounter Visit Diagnoses Not on filedocumented in this encounter Care Teams Booth Cashier Relationship Specialty Start Date End Date Matheus Feliciano MD [address] [facility] [address] PCP - General 03/23/20 Car Joel MD [address] [facility] [address] [place] [address] Assigned Surgical Provider 06/01/20 documented as of this encounter
--- OUTSIDE RECORDS SUMMARY | 2024-01-29 11:05 | XMS_ITS | Continuity of Care Document ---
Author Organization [facility] Address [address] [place] [address] Phone Care Team Providers Care Forensic Psychiatrist Name Role Phone Guille Wheeler MD Unavailable Unavailable Allergies, Adverse Reactions, Alerts Substance Reaction Status Criticality CEPHALEXIN MONOHYDRATE Active No In formation Medications Medication Instructions Dosage Effective Dates (start - stop) Status Comments MUCINEX (unknown strength) Not Available - Active DICLOFENAC POTASSIUM (unknown strength) Not Available - Active ZOLMITRIPTAN (unknown strength) Not Available - Active PROPRANOLOL HCL (unknown strength) Not Available - Active ONDANSETRON ODT (unknown strength) Not Available - Active TROSPIUM CHLORIDE (unknown strength) Not Available - Active PANTOPRAZOLE SODIUM (unknown strength) Not Available - Active MULTIVITAMINS (unknown strength) Not Available - Active ESCITALOPRAM OXALATE (unknown strength) Not Available - Active CYCLOBENZAPRINE HCL (unknown strength) Not Available - Active CETIRIZINE HCL (unknown strength) Not Available - Active ATOMOXETINE HCL (unknown strength) Not Available - Active SUMATRIPTAN (unknown strength) Not Available - Active TRAZODONE HCL (unknown strength) Not Available - Active VITAMIN B-12 (unknown strength) Not Available - Active GABAPENTIN (unknown strength) Not Available - Active KEPPRA (unknown strength) Not Available - Active BUSPIRONE HCL (unknown strength) Not Available - Active Procedures Procedure Date Office/Outpatient Visit,Est, Mod 2023 X-Ray Exam Lower Spine 2-3 Views 2023 Postop Followup Visit X-Ray Exam Lower Spine 2-3 Views 2022 TLIF - Includes PSF at the same level - PA VIGIL FACETC/FRMT ARTHRD LUM 1 Posterior Instrumentation, Non-segmental - PA PEEK/ Cage/ Implant, For Interbody Fusio n - PA Autograft, From Same Incision Pa Assist ICBG / Autograft, Morcelized, From Separ ate Incision - PA TLIF - Includes PSF at the same level Oc VIGIL FACETC/FRMT ARTHRD LUM 1 Posterior Instrumentation, Non-segmental PEEK/ Cage/ Implant, For Interbody Fusio n Allograft, Morcelized, and/or BMP Autograft, From Same Incision ICBG / Autograft, Morcelized, From Separ ate Incision Office/Outpatient Visit,Est, Mod 2022 Office/Outpatient Visit,Est, Mod 2022 Office/Outpatient Visit,Est, Mod 2022 Office/Outpatient Visit,Est, Low 2022 OFFICE/OUTPATIENT VISIT EST Phone Office/Outpatient Visit,New, Mod 2021 Office/Outpatient Visit,Est, Mod 2018 Office/Outpatient Visit,New, Mod 2017 Advance Directives Directive Yes / No Effective Date File Name No Information Encounters Encounter Description Practice Location Reason(s) For Visit Diagnoses Date Provider Providers Copied on Encounter [facility], [address], [place], [id number], [place] tel:[phone] [facility] No Information [address] [facility], [address] [place] [address] [address], [place], [id number] , [place]. tel:[phone] Office/Outpat ient Visit,Est, Mod [facility], [address], [place], [id number], [place] tel:[phone] [facility] Encounter for follow-up examination after completed treatment for conditions other than malignant neoplasm [address] [facility], [address] [place] [address] [address], [place], [place], [id number] , [place]. tel:[phone] Referring Provider: Aranza Marin, [address], [address]. tel:[phone] [facility], [address], [place], [id number], [place] tel:[phone] [facility] Encounter for other specified surgical aftercare 3 Nemesio Espitia. [facility], [address] [place] [address] [address], [place], [place], [id number] , [place]. [phone] Referring Provider: Aranza Marin, [address], [address]. tel:[phone] [facility], [address], [place], [place], [id number], [place] tel:[phone] [facility] No Information [address] [facility], [address] [place] [address] [address], [place], [place], [id number] , [place]. [phone] Referring Provider: Aranza Marin, [address], [address]. tel:[phone] [facility], [address], [place], [id number], [place] tel:[phone] [facility] No Information [address] [facility], [address] [place] [address] [address], [place], [place], [id number] , [place]. tel:[phone] Referring Provider: Aranza Marin, [address], [address]. tel:[phone] Office/Outpat ient Visit,Est, Mod [facility], [address], [place], [id number], [place] tel:[phone] [facility] Pain in thoracic spineRadiculo thuan, cervical regionRadicul opathy, lumbar regionOther chronic pain Sep-[address] [facility], [address], [place], [place], [id number] , [place]. tel:[phone] Referring Provider: Aranza Marin, [address], [address]. tel:[phone] Office/Outpat ient Visit,Est, Mod [facility], [address], [place], [id number], [place] tel:[phone] [facility] No Information Apr- 3 Samanta Lomas. [facility], [address], [place], [address], [place]. tel:[phone] Referring Provider: Aranza Marin, [address], [place], [address]. tel:[phone] Office/Outpat ient Visit,Est, Mod [facility], [address], [place], [id number], [place] tel:[phone] [facility] Radiculopathy , cervical regionRadicul opathy, lumbar regionPain in thoracic spineOther chronic pain [address] [facility], [address], [place], [address], [place]. tel:[phone] Referring Provider: Aranza Marin, [address], [address]. tel:[phone] Office/Outpat ient Visit,Est, Low [facility], [address], [place], [id number], [place] tel:[phone] [facility] No Information [address] [facility], [address], [place], [address], [place]. [phone] Referring Provider: Aranza Marin, [address], [address]. tel:[phone] OFFICE/OUTPAT IENT VISIT EST Phone [facility], [address], [place], [id number], [place] tel:[phone] [facility] No Information [address] [facility], [address], [place], [address], [place]. [phone] Referring Provider: Aranza Marin, [address], [address]. tel:[phone] Office/Outpat ient Visit,New, Mod [facility], [address], [place], [id number], [place] tel:[phone] [facility] Low back pain, unspecified Sep-0 [address] [facility], [address], [place], [address], [place]. [phone] Referring Provider: Aranza Marin, [address], [address]. tel:[phone] Office/Outpat ient Visit,Est, Mod [facility], [address], [place], [id number], [place] tel:[phone] [facility] Cervicalgia Amada Hooker. [facility], [address], [place], [address], [place]. [phone] Referring Provider: Morro Ybarra, [facility] [address], [place], [address]. tel:[phone] Office/Outpat ient Visit,New, Mod [facility], [address], [place], [id number], [place] tel:[phone] [facility] [place] Other cervical disc degeneration at C5-C6 level [address] [facility], [address], [place], [place], [id number] , [place]. tel:[phone] Referring Provider: [facility] [address], [place], [address]. tel:[phone] [facility], [address], [place], [id number], [place] tel:[phone] [facility] Cora Other cervical disc degeneration, high cervical region [address] [facility], [address], [place], [address], [place]. [phone] Family History Family Member Type Diagnosis Age At Onset No Information Payers Payer name Insurance type Covered republican ID Authoriza tisyed(s) [facility] [id number] Social History Type Description Quantity Date Captured [...]
--- OUTSIDE RECORDS SUMMARY | 2024-01-29 11:05 | XMS_ITS | Referral Summary ---
Author Organization [facility] Address [address] [place] [address]. [place] [address] Care Team Providers Care Motor Vehicle Examiner Name Role Phone Matheus Feliciano MD Primary Care Provider Car Joel MD Unavailable [phone] Allergies Active Allergy Reactions Criticality Noted Date [...] Active fluticasone (FLONASE) 50 MCG/ACT nasal spray [place] 30 mcg in nostril daily as needed [...] Overview: Added automatically from request for surgery [id number] Bariatric surgery status 11/17/2019 Malnutrition following gastrointestinal [...] Dates Next Due TD,PF 7+ (Tenivac) 03/20/2007 Social History Tobacco Use Types Packs/Day Years Used Date Smoking Tobacco: Former Cigarettes Smokeless Tobacco: Never Comments:as a child Alcohol Use Standard Drinks/Week Comments No 0 (1 standard drink = 0.6 oz pur e alcohol) Adolescent Education Answer Date Record ed Getting School Help Needed Not on file 05/26 Sex and Gender Information Value Date Recorded Sex Assigned at Female 06/29/2021 12:12 PM MCAT TUTOR Gender Identity Female 06/29/2021 12:12 PM MCAT TUTOR Sexual Orientation Straight 06/29/2021 12 :12 PM MCAT TUTOR Last Filed Vital Signs Vital Sign Reading [...] 05/28/2020 9:44 AM CDT Plan of Treatment Not on file Medical Devices Implanted Type Area Court Administrator Device Identifier Shelf Expiration Date Model / Serial / Lot Mesh Bio-A Tissue Reinforcement 7x10cm [id number] Implanted:Qty: 1 on 04/12/2020 by Car Joel MD at [facility] Mesh N/A: Abdomen [employer] [id number] 10/09/2022 [id number] / [id number] / Procedures Procedure Name Priority Date/Time Associated Diagnosis Comments BASIC METABOLIC PANEL STAT 02/09/2021 9:46 PM CDT from Last 3 Months or Most Recently Relevant to Health Maintenance Results * Basic metabolic panel (02/09/2021 9:46 PM CDT) Sodium 138 133 - 144 mmol/L 02/09/2021 9:59 PM CDT [facility] Potassium 3.6 3.4 - 5.3 mmol/L 02/09/2021 9:59 PM T [facility] Chloride 106 94 - 109 mmol/L 02/09/2021 9:59 PM T [facility] Carbon Dioxide 28 20 - 32 mmol/L 02/09/2021 10:05 PM [facility] Anion Gap 4 3 - 14 mmol/L 02/09/2021 10:05 PM [facility] Glucose 81 70 - 99 mg/dL 02/09/2021 10:05 PM [facility] Urea Nitrogen 9 7 - 30 mg/dL 02/09/2021 10:05 PM [facility] Creatinine 1.04 0.52 - 1.04 mg/dL 02/09/2021 10:05 PM [facility] GFR Estimate 68 >60 mL/min/{1. 73_m2} 02/09/2021 10:05 PM [facility] Comment: Non GFR Calc Starting 07/27/2018, serum creatinine based estimated GFR (eGFR) will be calculated using the Chronic Kidney Disease Epidemiology Collaboration (CKD-EPI) equation. GFR Estimate If Black 78 >60 mL/min/{1. 73_m2} 02/09/2021 10:05 PM [facility] Comment: GFR Calc Starting 07/27/2018, serum creatinine based estimated GFR (eGFR) will be calculated using the Chronic Kidney Disease Epidemiology Collaboration (CKD-EPI) equation. Calcium 8.6 8.5 - 10.1 mg/dL 02/09/2021 10:05 PM [facility] Blood 02/09/2021 9:46 PM CDT 02/09/2021 9:49 PM CDT Jesus Vigil MD LAB - BLOOD ORDERABL ES [facility] [address] [place] [address], [facility] [phone] from Last 3 Months or Most Recently Relevant to Health Maintenance Advance Directives For more information, please contact: [phone] * Full Code (Latest Code Status on File) Date Activated Date Inactivated Comments 04/12/2020 2:31 PM 04/14/2020 3:50 PM All basic and advanced life-sustaining interventions are performed as appropriate Question Answer Comments Code status determined by: Unable to det ermine; FULL CODE until documents or legal decision maker available Care Teams Motor Vehicle Examiner Relationship Specialty Start Date End Date Matheus Feliciano MD [address] [place] [address] [place] [id number] PCP - General 03/23/20 Car Joel MD [address] [facility] [address] [place] [address] Assigned Surgical Provider 06/01/20
--- OUTSIDE RECORDS SUMMARY | 2024-01-29 11:06 | XMS_ITS | Encounter Summary ---
Author Organization [facility] Address [address] [place] [address]. [place] [address] Care Team Providers Care Sedimentationist Name Role Phone Matheus Feliciano MD Primary Care Provider [phone] Car Joel MD Unavailable [phone] Encounter Details Date Type Department Care Team (Late st Contact Info) Description 01/24/2021 MyC Medical Advice [facility] [address] [place] [id number] Rehana Anaya, ANTONIA [facility] [address] [place] [address] [address] [place] [address] Social History Tobacco Use Types Packs/Day Years Used Date Smoking Tobacco: Former Cigarettes Smokeless Tobacco: Never Comments:as a child Alcohol Use Standard Drinks/Week Comments No 0 (1 standard drink = 0.6 oz pur e alcohol) Sex and Gender Information Value Date Recorded Sex Assigned at Female 06/29/2021 12:12 PM SHEET MILL SUPERVISOR Gender Identity Female 06/29/2021 12:12 PM SHEET MILL SUPERVISOR Sexual Orientation Straight 06/29/2021 12 :12 PM SHEET MILL SUPERVISOR COVID-19 Exposure Response Date Recorded In the last month, have you been in contact with someone who was confirmed or suspected to have Coronavirus / COVID-19? No / Unsure 01/10/2021 3:54 PM CDT documented as of this encounter Plan of Treatment Not on file documented as of this encounter Visit Diagnoses Not on filedocumented in this encounter Care Teams Sedimentationist Relationship Specialty Start Date End Date Matheus Feliciano MD [address] [place] [address] [place] [address] PCP - General 03/23/20 Car Joel MD [address] [facility] [address] [place] [address] Assigned Surgical Provider 06/01/20 documented as of this encounter
--- OUTSIDE RECORDS SUMMARY | 2024-01-29 11:06 | XMS_ITS | Encounter Summary ---
Author Organization [place] Address [address] [place] [address]. [place] [address] Care Team Providers Care Spinner Concrete Pipe Name Role Phone Nemesio Costa MD Primary Care Provider Matheus Feliciano MD Primary Care Provider Car Joel MD Unavailable [phone] Reason for Visit * Reason Comments Medication Refill Encounter Details Date Type Department Care Team (Late st Contact Info) Description 06/29/2017 Refill [facility] [place] [address] [facility] [address] [place] [phone] Juan A Valdovinos PA-C [address] [facility] [address] [place] [id number] Medication Refill Social History Tobacco Use Types Packs/Day Years Used Date Smoking Tobacco: Former Cigarettes Smokeless Tobacco: Never Comments:as a child Alcohol Use Standard Drinks/Week Comments No 0 (1 standard drink = 0.6 oz pur e alcohol) Sex and Gender Information Value Date Recorded Sex Assigned at Female 06/29/2021 12:12 PM FLASK HANDLER Gender Identity Female 06/29/2021 12:12 PM FLASK HANDLER Sexual Orientation Straight 06/29/2021 12 :12 PM FLASK HANDLER documented as of this encounter Miscellaneous Notes * Telephone Encounter - Lon Rodriguez PA-C - 07/01/2017 11:32 AM FLASK HANDLER Needs appointment K HANDLER documented in this encounter Plan of Treatment Not on file documented as of this encounter Visit Diagnoses Diagnosis Bariatric surgery status documented in this encounter Care Teams Spinner Concrete Pipe Relationship Specialty Start Date End Date Nemesio Costa MD PCP - General 05/30/11 03/22/20 Matheus Feliciano MD [address] [facility] [place] [phone] PCP - General 03/23/20 Car Joel MD [address] [facility] [address] [address] [place] [address] Assigned Surgical Provider 06/01/20 documented as of this encounter
--- OUTSIDE RECORDS SUMMARY | 2024-01-29 11:06 | XMS_ITS | Encounter Summary ---
Author Organization [place] Address [address] [place] [address]. [place] [address] Care Team Providers Care Transfer Machine Operator Name Role Phone Nemesio Costa MD Primary Care Provider Matheus Feliciano MD Primary Care Provider [phone] Car Joel MD Unavailable [phone] Reason for Visit * Reason Comments Medication Refill Encounter Details Date Type Department Care Team (Late st Contact Info) Description 07/04/2014 Refill [facility] [place] [address] [facility] [address] [place] [phone] Montserrat Shepherd PA-C [address] [facility] [address] [place] [address] Medication Refill Social History Tobacco Use Types Packs/Day Years Used Date Smoking Tobacco: Former Cigarettes Smokeless Tobacco: Never Comments:as a child Alcohol Use Standard Drinks/Week Comments No 0 (1 standard drink = 0.6 oz pur e alcohol) Sex and Gender Information Value Date Recorded Sex Assigned at Female 06/29/2021 12:12 PM ENTRY LEVEL ACCOUNT EXECUTIVE Gender Identity Female 06/29/2021 12:12 PM ENTRY LEVEL ACCOUNT EXECUTIVE Sexual Orientation Straight 06/29/2021 12 :12 PM ENTRY LEVEL ACCOUNT EXECUTIVE documented as of this encounter Plan of Treatment Not on file documented as of this encounter Visit Diagnoses Diagnosis Other and unspecified postsurgical nonabsorption- Primary Bariatric surgery status documented in this encounter Care Teams Transfer Machine Operator Relationship Specialty Start Date End Date Nemesio Costa MD PCP - General 05/30/11 03/22/20 Matheus Feliciano MD [address] [place] [address] [place] [phone] PCP - General 03/23/20 Car Joel MD [address] [facility] [address] [place] [address] Assigned Surgical Provider 06/01/20 documented as of this encounter
--- OUTSIDE RECORDS SUMMARY | 2024-01-29 11:06 | XMS_ITS | Encounter Summary ---
Author Organization [place] Address [address] [place] [address]. [place] [address] Care Team Providers Care Community Recreation Programmer Name Role Phone Matheus Feliciano MD Primary Care Provider [phone] Car Joel MD Unavailable [phone] Encounter Details Date Type Department Care Team (Late st Contact Info) Description 08/30/2021 [facility] Medical Advice [facility] [address] [place] [phone] Lelo Aranda, RN Social History Tobacco Use Types Packs/Day Years Used Date Smoking Tobacco: Former Cigarettes Smokeless Tobacco: Never Comments:as a child Alcohol Use Standard Drinks/Week Comments No 0 (1 standard drink = 0.6 oz pur e alcohol) Sex and Gender Information Value Date Recorded Sex Assigned at Female 06/29/2021 12:12 PM CANARY RAISER Gender Identity Female 06/29/2021 12:12 PM CANARY RAISER Sexual Orientation Straight 06/29/2021 12 :12 PM CANARY RAISER documented as of this encounter Plan of Treatment Not on file documented as of this encounter Visit Diagnoses Not on filedocumented in this encounter Care Teams Community Recreation Programmer Relationship Specialty Start Date End Date Matheus Feliciano MD [address] [place] [address] [place] [phone] PCP - General 03/23/20 Car Joel MD [address] [facility] [address] [place] [address] Assigned Surgical Provider 06/01/20 documented as of this encounter
--- OUTSIDE RECORDS SUMMARY | 2024-01-29 11:06 | XMS_ITS | Encounter Summary ---
Author Organization [place] Address [facility] [place] [address] Care Team Providers Care Can Patcher Name Role Phone Nemesio Costa MD Primary Care Provider Matheus Feliciano MD Primary Care Provider Car Joel MD Unavailable [phone] Encounter Details Date Type Department Care Team (Late st Contact Info) Description 12/22/2019 Telephone [facility] [place] [address] [place] [phone] Car Joel MD [address] [place] [phone] Social History Tobacco Use Types Packs/Day Years Used Date Smoking Tobacco: Former Cigarettes Smokeless Tobacco: Never Comments:as a child Alcohol Use Standard Drinks/Week Comments No 0 (1 standard drink = 0.6 oz pur e alcohol) Sex and Gender Information Value Date Recorded Sex Assigned at Female 06/29/2021 12:12 PM MANAGER OUTREACH Gender Identity Female 06/29/2021 12:12 PM MANAGER OUTREACH Sexual Orientation Straight 06/29/2021 12 :12 PM MANAGER OUTREACH COVID-19 Exposure Response Date Recorded In the last month, have you been in contact with someone who was confirmed or suspected to have Coronavirus / COVID-19? No / Unsure 11/29/2019 1:57 PM CDT documented as of this encounter Miscellaneous Notes * Telephone Encounter - ZiRehana Padilla RN - 12/23/2019 12:24 PM CDT Called [facility] and spoke with Gladys in scheduling. Patient was called to schedule but was NA and a message was left this Thursday or Thursday - exact date in trail unknown. Was given direct number to schedule. Scheduling is available until 5 pm. Patient most likely can get in next week. Called patient and LM to call [phone] to schedule and also requested she leave a number where she can be reached if can't schedule directly. Rehana Bryan MS, RD, RN * Telephone Encounter - Rehana Anaya RN - 12/23/2019 9:47 AM CDT Called patient and LM with phone number returned call. Rehana Bryan MS, RD, RN * Telephone Encounter - Erica Stout - 12/22/2019 4:50 PM CDT For Rehana, Pt is returning phone call and would like to speak to you [facility] [phone] ok to leave a detailed message documented in this encounter Plan of Treatment Not on file documented as of this encounter Visit Diagnoses Not on filedocumented in this encounter Care Teams Can Patcher Relationship Specialty Start Date End Date Nemesio Costa MD PCP - General 05/30/11 03/22/20 Matheus Feliciano MD [address] [place] [address] [place] [address] PCP - General 03/23/20 Car Joel MD [address] [place] [address] Assigned Surgical Provider 06/01/20 documented as of this encounter
--- OUTSIDE RECORDS SUMMARY | 2024-01-29 11:06 | XMS_ITS | Encounter Summary ---
Author Organization [place] Address [address] [place] [address]. [place] [address] Care Team Providers Care Cable Assembler Name Role Phone Matheus Feliciano MD Primary Care Provider Car Joel MD Unavailable [phone] Encounter Details Date Type Department Care Team (Late st Contact Info) Description 01/24/2021 [facility] Medical Advice [facility] [address] [place] [phone] Rehana Anaya, [facility] [address] [place] [address] [address] [place] [address] Social History Tobacco Use Types Packs/Day Years Used Date Smoking Tobacco: Former Cigarettes Smokeless Tobacco: Never Comments:as a child Alcohol Use Standard Drinks/Week Comments No 0 (1 standard drink = 0.6 oz pur e alcohol) Sex and Gender Information Value Date Recorded Sex Assigned at Female 06/29/2021 12:12 PM VENTILATION EQUIPMENT TENDER Gender Identity Female 06/29/2021 12:12 PM VENTILATION EQUIPMENT TENDER Sexual Orientation Straight 06/29/2021 12 :12 PM VENTILATION EQUIPMENT TENDER COVID-19 Exposure Response Date Recorded In the last month, have you been in contact with someone who was confirmed or suspected to have Coronavirus / COVID-19? No / Unsure 01/10/2021 3:54 PM CDT documented as of this encounter Plan of Treatment Not on file documented as of this encounter Visit Diagnoses Not on filedocumented in this encounter Care Teams Cable Assembler Relationship Specialty Start Date End Date Matheus Feliciano MD [address] [place] [address] [place] [address] PCP - General 03/23/20 Car Joel MD [address] [facility] [address] [address] [place] [address] Assigned Surgical Provider 06/01/20 documented as of this encounter
--- OUTSIDE RECORDS SUMMARY | 2024-01-29 11:06 | XMS_ITS | Encounter Summary ---
Author Organization [place] Address [address] [place] [address]. [place] [address] Care Team Providers Care Roof Tiler Name Role Phone Nemesio Costa MD Primary Care Provider [phone] Matheus Feliciano MD Primary Care Provider Car Joel MD Unavailable [phone] Reason for Visit * Reason Comments Medication Refill Encounter Details Date Type Department Care Team (Late st Contact Info) Description 07/29/2017 Refill [facility] [place] [address] [facility] [address] [place] [phone] Juan A Valdovinos PA-C [address] [facility] [address] [place] [address] Medication Refill Social History Tobacco Use Types Packs/Day Years Used Date Smoking Tobacco: Former Cigarettes Smokeless Tobacco: Never Comments:as a child Alcohol Use Standard Drinks/Week Comments No 0 (1 standard drink = 0.6 oz pur e alcohol) Sex and Gender Information Value Date Recorded Sex Assigned at Female 06/29/2021 12:12 PM CASINO CHANGE ATTENDANT Gender Identity Female 06/29/2021 12:12 PM CASINO CHANGE ATTENDANT Sexual Orientation Straight 06/29/2021 12 :12 PM CASINO CHANGE ATTENDANT documented as of this encounter Plan of Treatment Not on file documented as of this encounter Visit Diagnoses Diagnosis Bariatric surgery status documented in this encounter Care Teams Roof Tiler Relationship Specialty Start Date End Date Nemesio Costa MD PCP - General 05/30/11 03/22/20 Matheus Feliciano MD [address] [place] [address] [place] [phone] PCP - General 03/23/20 Car Joel MD [address] [facility] [address] [address] [place] [address] Assigned Surgical Provider 06/01/20 documented as of this encounter
--- OUTSIDE RECORDS SUMMARY | 2024-01-29 11:06 | XMS_ITS | Encounter Summary ---
Author Organization [place] Address [address] [place] [address]. [place] [address] Care Team Providers Care Senior Grants Officer Name Role Phone Nemesio Costa MD Primary Care Provider Matheus Feliciano MD Primary Care Provider Car Joel MD Unavailable [phone] Reason for Visit * Reason Comments Medication Refill Encounter Details Date Type Department Care Team (Late st Contact Info) Description 06/13/2015 Refill [facility] [place] [address] [facility] [address] [place] [phone] Juan A Valdovinos PA-C [address] [facility] [address] [place] [address] Medication Refill Social History Tobacco Use Types Packs/Day Years Used Date Smoking Tobacco: Former Cigarettes Smokeless Tobacco: Never Comments:as a child Alcohol Use Standard Drinks/Week Comments No 0 (1 standard drink = 0.6 oz pur e alcohol) Sex and Gender Information Value Date Recorded Sex Assigned at Female 06/29/2021 12:12 PM CURING ROOM SUPERVISOR Gender Identity Female 06/29/2021 12:12 PM CURING ROOM SUPERVISOR Sexual Orientation Straight 06/29/2021 12 :12 PM CURING ROOM SUPERVISOR documented as of this encounter Plan of Treatment Not on file documented as of this encounter Visit Diagnoses Not on filedocumented in this encounter Care Teams Senior Grants Officer Relationship Specialty Start Date End Date Nemesio Costa MD PCP - General 05/30/11 03/22/20 Matheus Feliciano MD [address] [place] [address] [place] [phone] PCP - General 03/23/20 Car Joel MD [address] [facility] [address] [place] [address] Assigned Surgical Provider 06/01/20 documented as of this encounter
--- OUTSIDE RECORDS SUMMARY | 2024-01-29 11:06 | XMS_ITS | Clinical Summary ---
[facility] Address [address] [place] [address] Care Team Providers Care Digital Photo Printer Name Role Phone Unassigned, Provider Primary Care Provider Unava ilable Source Comments You are receiving this document as you are listed as the primary care provider,follow-up provider, or the patient has been referred to you for consultation.This is in compliance with the Medicare andMedicaid EHR Incentive Program,which states Providers who transition their patient to another setting of careor provider of care or refers their patient to another provider of care shouldprovide summary care record for each transition of care or referral. INPHI Allergies Active Allergy Reactions Criticality Noted Date Comments Hydrocodone Bitartrate 10/22/2006 Morphine And Codeine 10/22/2006 Medications Medication Sig Dispensed Refills Start Date End Date Status 19 OR TABSIndications:F oot injury None Entered Active Vit-Fe Fumarate-FA ( OR) Take 1 tablet by mouth daily (every 24 hours). 30 6 10/04/2006 Active adapalene (DIFFERIN) 0.1 % cream Apply topically. Active atomoxetine (STRATTERA) 80 MG capsule TAKE ONE CAPSULE BY MOUTH EVERY DAY 10/12/2020 Active atomoxetine (STRATTERA) 80 MG capsule Take 80 mg by mouth daily. 10/15/2020 Active busPIRone (BUSPAR) 30 MG tablet TAKE 1 TABLET(30 MG) BY MOUTH TWICE DAILY 06/20/2020 Active busPIRone (BUSPAR) 30 MG tablet 10/15/2020 Active cetirizine (ZYRTEC) 10 MG tablet Take 10 mg by mouth. Acti ve cyanocobalamin (FOCURDLL02) 1000 MCG/ML injection INJECT 1ML INTRAMUSCULARLY EVERY MONTH 10/11/2020 Active cyclobenzaprine (FLEXERIL) 10 MG tablet Take 5-10 mg by mouth. 05/04/2020 Ac tive cyclobenzaprine (FLEXERIL) 5 MG tablet Take 5-10 mg by mouth. 09/03/2020 Ac tive cyclobenzaprine (FLEXERIL) 5 MG tablet TAKE 1 TO 2 TABLETS BY MOUTH THREE TIMES DAILY NEEDED FOR MUSCLE SPASM 09/03/2020 Active doxylamine succinate (UNISOM) 25 MG tablet Take 50 mg by mouth. Acti ve escitalopram oxalate (LEXAPRO) 20 MG tablet Take 20 mg by mouth. Ac tive escitalopram oxalate (LEXAPRO) 20 MG tablet Take 20 mg by mouth daily. 10/15/2020 Active fluticasone propionate (FLONASE) 50 MCG/ACT nasal solution 30 mcg by Nasal route. Ac tive gabapentin (NEURONTIN) 300 MG capsule Take 900 mg by mouth. 06/26/2020 Act jennie gabapentin (NEURONTIN) 300 MG capsule TAKE 3 CAPSULES BY MOUTH THREE TIMES DAILY 10/15/2020 Active levETIRAcetam (KEPPRA) 500 MG tablet 09/30/2020 Active levETIRAcetam (KEPPRA) 500 MG tablet Take 500 mg by mouth. 06/22/2020 Act jennie nystatin-triamcin olone (MYCOLOG-II) 754860-0.1 UNIT/GM-% cream Apply 0.5 Inches topically. Active omega-3 fatty acids (FISH OIL) 1000 MG capsule Take 1 g by mouth. A ctive pantoprazole (PROTONIX) 40 MG tablet daily. 07/13/2020 Active pantoprazole (PROTONIX) 40 MG tablet 10/07/2020 Active SUMAtriptan (IMITREX) 100 MG tablet Take 100 mg by mouth. Act jennie topiramate (TOPAMAX) 100 MG tablet Take 100 mg by mouth. Act jennie topiramate (TOPAMAX) 100 MG tablet 10/15/2020 Active trospium (SANCTURA) 20 MG tablet Take 20 mg by mouth. 09/06/2020 Acti ve trospium (SANCTURA) 20 MG tablet 10/15/2020 Active ZOLMitriptan (ZOMIG) 5 MG tablet Take by mouth. Active diazePAM (VALIUM) 5 MG tabletIndications :Patellofemoral arthritis of left knee Pt to bring with to appt. Do not take prior to arrival. MRI staff will instruct when to take med. 1 Tablet 10/29/2020 Active Social History Tobacco Use Types Packs/Day Years Used Date Smoking Tobacco: Never Alcohol Use Standard Drinks/Week Comments Not Asked 0 (1 standard drink = 0.6 oz pur e alcohol) Sex and Gender Information Value Date Recorded Sex Assigned at Not on file Gender Identity Not on file Sexual Orientation Not on file Last Filed Vital Signs [...] Date Last Done Comments Cervical Cancer Screening Due 1981 Hep C Screening (Preventive Services) 1981 HIV Screening (Preventive Services) 1997 Adult Preventive Visit 11/13/1999 HepB (1) 2000 COVID-19 Vaccine ( season) 2023 12/18/2020, 11/22/2020 Influenza (Season Ended) 2024 020, 05/02/2019, 05/02/2019, Additional history exists DTaP/Tdap/Td (4 - Tdap) 11/03/2027 11/03/19 18, 03/20/2007, 03/20/2007 Zoster/Shingles (1 of 2) 11/13/2031 HPV Vaccine Aged Out No longer eligi ble based on patient's age to complete this topic HepA Aged Out No longer eligi ble based on patient's age to complete this topic Hib Aged Out No longer eligi ble based on patient's age to complete this topic IPV (Polio) Aged Out No longer eligi ble based on patient's age to complete this topic MCV4 Aged Out No longer eligi ble based on patient's age to complete this topic Pneumococcal Aged Out No longer eligi ble based on patient's age to complete this topic Care Teams Digital Photo Printer Relationship Specialty Start Date End Date Unassigned, Provider [address] [place] [address] PCP - General 10/22/06
--- OUTSIDE RECORDS SUMMARY | 2024-01-29 11:06 | XMS_ITS | Encounter Summary ---
Author Organization [place] Address [address] [place] [address]. [place] [address] Care Team Providers Care Group Tester Name Role Phone Matheus Feliciano MD Primary Care Provider Car Joel MD Unavailable [phone] Encounter Details Date Type Department Care Team (Late st Contact Info) Description 04/21/[address] [facility] [address] [place] [phone] Brittany Dang RN Social History Tobacco Use Types Packs/Day Years Used Date Smoking Tobacco: Former Cigarettes Smokeless Tobacco: Never Comments:as a child Alcohol Use Standard Drinks/Week Comments No 0 (1 standard drink = 0.6 oz pur e alcohol) Sex and Gender Information Value Date Recorded Sex Assigned at Female 06/29/2021 12:12 PM EYELET ROW MARKER Gender Identity Female 06/29/2021 12:12 PM EYELET ROW MARKER Sexual Orientation Straight 06/29/2021 12 :12 PM EYELET ROW MARKER documented as of this encounter Plan of Treatment Not on file documented as of this encounter Visit Diagnoses Not on filedocumented in this encounter Care Teams Group Tester Relationship Specialty Start Date End Date Matheus Feliciano MD [address] [place] [address] [place] [address] PCP - General 03/23/20 Car Joel MD [address] [facility] [address] [place] [address] Assigned Surgical Provider 06/01/20 documented as of this encounter
--- OUTSIDE RECORDS SUMMARY | 2024-01-29 11:06 | XMS_ITS | Encounter Summary ---
Author Organization [place] Address [address] [place] [address]. [place] [address] Care Team Providers Care Major Case Detective Name Role Phone Matheus Feliciano MD Primary Care Provider Car Joel MD Unavailable [phone] Encounter Details Date Type Department Care Team (Late st Contact Info) Description 12/25/2021 [facility] [place] Medical Advice [facility] [address] [place] [phone] Lelo Aranda, RN Social History Tobacco Use Types Packs/Day Years Used Date Smoking Tobacco: Former Cigarettes Smokeless Tobacco: Never Comments:as a child Alcohol Use Standard Drinks/Week Comments No 0 (1 standard drink = 0.6 oz pur e alcohol) Sex and Gender Information Value Date Recorded Sex Assigned at Female 06/29/2021 12:12 PM BUSINESS INSIGHT AND ANALYTICS MANAGER Gender Identity Female 06/29/2021 12:12 PM BUSINESS INSIGHT AND ANALYTICS MANAGER Sexual Orientation Straight 06/29/2021 12 :12 PM BUSINESS INSIGHT AND ANALYTICS MANAGER documented as of this encounter Plan of Treatment Not on file documented as of this encounter Visit Diagnoses Not on filedocumented in this encounter Care Teams Major Case Detective Relationship Specialty Start Date End Date Matheus Feliciano MD [address] [place] [address] [place] [phone] PCP - General 03/23/20 Car Joel MD [address] [facility] [address] [place] [address] Assigned Surgical Provider 06/01/20 documented as of this encounter
--- OUTSIDE RECORDS SUMMARY | 2024-01-29 11:06 | XMS_ITS | Encounter Summary ---
Author Organization [place] Address [address] [place] [address]. [place] [address] Care Team Providers Care Consumer Services Advisor Name Role Phone Matheus Feliciano MD Primary Care Provider Car Joel MD Unavailable [phone] Encounter Details Date Type Department Care Team (Late st Contact Info) Description 02/17/2022 [facility] Medical Advice [facility] Weight [facility] Clinic [address] [place] [phone] Lelo Aranda, RN Social History Tobacco Use Types Packs/Day Years Used Date Smoking Tobacco: Former Cigarettes Smokeless Tobacco: Never Comments:as a child Alcohol Use Standard Drinks/Week Comments No 0 (1 standard drink = 0.6 oz pur e alcohol) Sex and Gender Information Value Date Recorded Sex Assigned at Female 06/29/2021 12:12 PM SEED CLEANER OPERATOR Gender Identity Female 06/29/2021 12:12 PM SEED CLEANER OPERATOR Sexual Orientation Straight 06/29/2021 12 :12 PM SEED CLEANER OPERATOR documented as of this encounter Plan of Treatment Not on file documented as of this encounter Visit Diagnoses Not on filedocumented in this encounter Care Teams Consumer Services Advisor Relationship Specialty Start Date End Date Matheus Feliciano MD [address] [place] [address] [place] [phone] PCP - General 03/23/20 Car Joel MD [address] [facility] [address] [place] [address] Assigned Surgical Provider 06/01/20 documented as of this encounter
--- OUTSIDE RECORDS SUMMARY | 2024-01-29 11:06 | XMS_ITS | Encounter Summary ---
Author Organization [place] Address [facility] [place] [address] Care Team Providers Care Government Teacher Name Role Phone Nemesio Costa MD Primary Care Provider Matheus Feliciano MD Primary Care Provider Car Joel MD Unavailable [phone] Reason for Visit * Reason Comments Medication Refill Encounter Details Date Type Department Care Team (Late st Contact Info) Description 06/07/2013 Refill [facility] [place] [address] [place] [phone] Montserrat Shepherd PA-C [address] [place] [id number] Medication Refill Social History Tobacco Use Types Packs/Day Years Used Date Smoking Tobacco: Former Cigarettes Smokeless Tobacco: Never Comments:as a child Alcohol Use Standard Drinks/Week Comments No 0 (1 standard drink = 0.6 oz pur e alcohol) Sex and Gender Information Value Date Recorded Sex Assigned at Female 06/29/2021 12:12 PM WELFARE DIRECTOR Gender Identity Female 06/29/2021 12:12 PM WELFARE DIRECTOR Sexual Orientation Straight 06/29/2021 12 :12 PM WELFARE DIRECTOR documented as of this encounter Plan of Treatment Not on file documented as of this encounter Visit Diagnoses Diagnosis Bariatric surgery status- Primary documented in this encounter Care Teams Government Teacher Relationship Specialty Start Date End Date Nemesio Costa MD PCP - General 05/30/11 03/22/20 Matheus Feliciano MD [address] [place] [address] [place] [phone] PCP - General 03/23/20 Car Joel MD [address] [facility] [address] [address] [place] [address] Assigned Surgical Provider 06/01/20 documented as of this encounter
--- OUTSIDE RECORDS SUMMARY | 2024-01-29 11:06 | XMS_ITS | Encounter Summary ---
Author Organization [place] Address [address] [place] [address]. [place] [address] Care Team Providers Care Heater Planer Operator Name Role Phone Nemesio Costa MD Primary Care Provider Matheus Feliciano MD Primary Care Provider Car Joel MD Unavailable [phone] Reason for Visit * Reason Comments Medication Refill Encounter Details Date Type Department Care Team (Late st Contact Info) Description 06/30/2013 Refill [facility] [place] [address] [place] [phone] Montserrat Shepherd PA-C [address] [place] [address] Medication Refill Social History Tobacco Use Types Packs/Day Years Used Date Smoking Tobacco: Former Cigarettes Smokeless Tobacco: Never Comments:as a child Alcohol Use Standard Drinks/Week Comments No 0 (1 standard drink = 0.6 oz pur e alcohol) Sex and Gender Information Value Date Recorded Sex Assigned at Female 06/29/2021 12:12 PM BAGGAGE INSPECTOR Gender Identity Female 06/29/2021 12:12 PM BAGGAGE INSPECTOR Sexual Orientation Straight 06/29/2021 12 :12 PM BAGGAGE INSPECTOR documented as of this encounter Plan of Treatment Not on file documented as of this encounter Visit Diagnoses Not on filedocumented in this encounter Care Teams Heater Planer Operator Relationship Specialty Start Date End Date Nemesio Costa MD PCP - General 05/30/11 03/22/20 Matheus Feliciano MD [address] [place] [address] [place] [phone] PCP - General 03/23/20 Car Joel MD [address] [facility] [address] [address] [place] [address] Assigned Surgical Provider 06/01/20 documented as of this encounter
--- OUTSIDE RECORDS SUMMARY | 2024-01-29 11:06 | XMS_ITS | Encounter Summary ---
Author Organization [place] Address [address] [place] [address]. [place] [address] Care Team Providers Care Documentation Consultant Name Role Phone Matheus Feliciano MD Primary Care Provider Car Joel MD Unavailable [phone] Encounter Details Date Type Department Care Team (Late st Contact Info) Description 05/25/2020 [facility] [address] [place] [phone] [facility] Social History Tobacco Use Types Packs/Day Years Used Date Smoking Tobacco: Former Cigarettes Smokeless Tobacco: Never Comments:as a child Alcohol Use Standard Drinks/Week Comments No 0 (1 standard drink = 0.6 oz pur e alcohol) Sex and Gender Information Value Date Recorded Sex Assigned at Female 06/29/2021 12:12 PM DRUG SAFETY PHYSICIAN Gender Identity Female 06/29/2021 12:12 PM DRUG SAFETY PHYSICIAN Sexual Orientation Straight 06/29/2021 12 :12 PM DRUG SAFETY PHYSICIAN COVID-19 Exposure Response Date Recorded In the last month, have you been in contact with someone who was confirmed or suspected to have Coronavirus / COVID-19? No / Unsure 05/16/2020 2:15 PM CDT documented as of this encounter Plan of Treatment Not on file documented as of this encounter Visit Diagnoses Not on filedocumented in this encounter Care Teams Documentation Consultant Relationship Specialty Start Date End Date Matheus Feliciano MD [address] [place] [address] [facility] [place] [phone] PCP - General 03/23/20 Car Joel MD [address] [place] [address] [place] [address] Assigned Surgical Provider 06/01/20 documented as of this encounter
--- OUTSIDE RECORDS SUMMARY | 2024-01-29 11:06 | XMS_ITS | Encounter Summary ---
Author Organization [place] Address [address] [place] [address]. [place] [address] Care Team Providers Care Principal Technical Writer Name Role Phone Nemesio Costa MD Primary Care Provider [phone] Matheus Feliciano MD Primary Care Provider Car Joel MD Unavailable [phone] Reason for Visit * Reason Comments Medication Refill Encounter Details Date Type Department Care Team (Late st Contact Info) Description 12/09/2019 Refill [facility] [address] [place] [phone] Car Joel MD [address] [facility] [address] [place] [id number] Medication Refill Social History Tobacco Use Types Packs/Day Years Used Date Smoking Tobacco: Former Cigarettes Smokeless Tobacco: Never Comments:as a child Alcohol Use Standard Drinks/Week Comments No 0 (1 standard drink = 0.6 oz pur e alcohol) Sex and Gender Information Value Date Recorded Sex Assigned at Female 06/29/2021 12:12 PM DIRECTOR OF STRATEGIC PARTNERSHIPS Gender Identity Female 06/29/2021 12:12 PM DIRECTOR OF STRATEGIC PARTNERSHIPS Sexual Orientation Straight 06/29/2021 12 :12 PM DIRECTOR OF STRATEGIC PARTNERSHIPS COVID-19 Exposure Response Date Recorded In the last month, have you been in contact with someone who was confirmed or suspected to have Coronavirus / COVID-19? No / Unsure 11/29/2019 1:57 PM CDT documented as of this encounter Miscellaneous Notes * Telephone Encounter - Rehana Anaya, ANTONIA - 12/09/2019 10:03 AM CDT 11/29/2019 was Rx'd new RX: Take 1 tablet (20 mg) by mouth 2 times daily First week take 40 mg twicea day then 20 mg twice a day afterward. Called to check on sx relief and patient has not yet returned call. DZ documented in this encounter Plan of Treatment Not on file documented as of this encounter Visit Diagnoses Diagnosis Epigastric pain Abdominal pain, epigastric documented in this encounter Care Teams Principal Technical Writer Relationship Specialty Start Date End Date Nemesio Costa MD PCP - General 05/30/11 03/22/20 Matheus Feliciano MD [address] [place] [address] [place] [phone] PCP - General 03/23/20 Car Joel MD [address] [place] [address] Assigned Surgical Provider 06/01/20 documented as of this encounter
--- OUTSIDE RECORDS SUMMARY | 2024-01-29 11:06 | XMS_ITS | Encounter Summary ---
Author Organization [place] Address [address] [place] [address]. [place] [address] Care Team Providers Care Chucking And Boring Machine Operator Name Role Phone Nemesio Costa MD Primary Care Provider Matheus Feliciano MD Primary Care Provider [phone] Car Joel MD Unavailable [phone] Encounter Details Date Type Department Care Team (Late st Contact Info) Description 10/01/2012 [facility] [place] [address] [place] [phone] Montserrat Shpeherd PA-C [address] [place] [address] Social History Tobacco Use Types Packs/Day Years Used Date Smoking Tobacco: Former Cigarettes Smokeless Tobacco: Never Comments:as a child Alcohol Use Standard Drinks/Week Comments Not Asked 0 (1 standard drink = 0.6 oz pur e alcohol) Sex and Gender Information Value Date Recorded Sex Assigned at Female 06/29/2021 12:12 PM REWORKER Gender Identity Female 06/29/2021 12:12 PM REWORKER Sexual Orientation Straight 06/29/2021 12 :12 PM REWORKER documented as of this encounter Plan of Treatment Not on file documented as of this encounter Visit Diagnoses Not on filedocumented in this encounter Care Teams Chucking And Boring Machine Operator Relationship Specialty Start Date End Date Nemesio Costa MD PCP - General 05/30/11 03/22/20 Matheus Feliciano MD [address] [facility] [place] [phone] PCP - General 03/23/20 Car Joel MD [address] [facility] [address] [place] [address] Assigned Surgical Provider 06/01/20 documented as of this encounter
--- OUTSIDE RECORDS SUMMARY | 2024-01-29 11:06 | XMS_ITS | Encounter Summary ---
Author Organization [place] Address [address] [place] [address]. [place] [address] Care Team Providers Care Instrumentation Engineering Technician Name Role Phone Matheus Feliciano MD Primary Care Provider Car Joel MD Unavailable [phone] Reason for Visit * Reason Comments Medication Refill Encounter Details Date Type Department Care Team (Late st Contact Info) Description 04/16/2022 Refill [facility] [place] [address] [place] [phone] Car Joel MD [address] [facility] [address] [place] [address] Medication Refill Social History Tobacco Use Types Packs/Day Years Used Date Smoking Tobacco: Former Cigarettes Smokeless Tobacco: Never Comments:as a child Alcohol Use Standard Drinks/Week Comments No 0 (1 standard drink = 0.6 oz pur e alcohol) Sex and Gender Information Value Date Recorded Sex Assigned at Female 06/29/2021 12:12 PM BOTTLE HOP Gender Identity Female 06/29/2021 12:12 PM BOTTLE HOP Sexual Orientation Straight 06/29/2021 12 :12 PM BOTTLE HOP documented as of this encounter Plan of Treatment Not on file documented as of this encounter Visit Diagnoses Diagnosis Other acute gastritis without hemorrhage documented in this encounter Care Teams Instrumentation Engineering Technician Relationship Specialty Start Date End Date Matheus Feliciano MD [address] [place] [address] [place] [phone] PCP - General 03/23/20 Car Joel MD [address] [place] [address] Assigned Surgical Provider 06/01/20 documented as of this encounter
--- OUTSIDE RECORDS SUMMARY | 2024-01-29 11:06 | XMS_ITS | Encounter Summary ---
Author Organization [place] Address [address] [place] [address]. [place] [address] Care Team Providers Care Credit Controller Name Role Phone Nemesio Costa MD Primary Care Provider Matheus Feliciano MD Primary Care Provider Car Joel MD Unavailable [phone] Reason for Visit * Reason Comments Medication Refill Encounter Details Date Type Department Care Team (Late st Contact Info) Description 09/12/2016 Refill [facility] Weight Loss [facility] [place] [address] [facility] [address] [place] [phone] Juan A Valdovinos PA-C [address] [facility] [address] [place] [address] Medication Refill Social History Tobacco Use Types Packs/Day Years Used Date Smoking Tobacco: Former Cigarettes Smokeless Tobacco: Never Comments:as a child Alcohol Use Standard Drinks/Week Comments No 0 (1 standard drink = 0.6 oz pur e alcohol) Sex and Gender Information Value Date Recorded Sex Assigned at Female 06/29/2021 12:12 PM SOCIOLOGY INSTRUCTOR Gender Identity Female 06/29/2021 12:12 PM SOCIOLOGY INSTRUCTOR Sexual Orientation Straight 06/29/2021 12 :12 PM SOCIOLOGY INSTRUCTOR documented as of this encounter Plan of Treatment Not on file documented as of this encounter Visit Diagnoses Diagnosis Bariatric surgery status- Primary documented in this encounter Care Teams Credit Controller Relationship Specialty Start Date End Date Nemesio Costa MD PCP - General 05/30/11 03/22/20 Matheus Feliciano MD [address] [place] [address] [place] [phone] PCP - General 03/23/20 Car Joel MD [address] [facility] [address] [address] [place] [address] Assigned Surgical Provider 06/01/20 documented as of this encounter
--- OUTSIDE RECORDS SUMMARY | 2024-01-29 11:06 | XMS_ITS | Encounter Summary ---
Author Organization [place] Address [address] [place] [address]. [place] [address] Care Team Providers Care Hospital Director Name Role Phone Matheus Feliciano MD Primary Care Provider [phone] Car Joel MD Unavailable [phone] Encounter Details Date Type Department Care Team (Late st Contact Info) Description 07/02/2021 [facility] [address] [place] [phone] Lelo Aranda, RN Social History Tobacco Use Types Packs/Day Years Used Date Smoking Tobacco: Former Cigarettes Smokeless Tobacco: Never Comments:as a child Alcohol Use Standard Drinks/Week Comments No 0 (1 standard drink = 0.6 oz pur e alcohol) Sex and Gender Information Value Date Recorded Sex Assigned at Female 06/29/2021 12:12 PM KIER PLEATER Gender Identity Female 06/29/2021 12:12 PM KIER PLEATER Sexual Orientation Straight 06/29/2021 12 :12 PM KIER PLEATER documented as of this encounter Plan of Treatment Not on file documented as of this encounter Visit Diagnoses Not on filedocumented in this encounter Care Teams Hospital Director Relationship Specialty Start Date End Date Matheus Feliciano MD [address] [place] [address] [place] [phone] PCP - General 03/23/20 Car Joel MD [address] [facility] [address] [place] [address] Assigned Surgical Provider 06/01/20 documented as of this encounter
--- OUTSIDE RECORDS SUMMARY | 2024-01-29 11:06 | XMS_ITS | Encounter Summary ---
Author Organization [place] Address [address] [place] [address]. [place] [address] Care Team Providers Care Compo Conveyor Operator Name Role Phone Nemesio Costa MD Primary Care Provider [phone] Matheus Feliciano MD Primary Care Provider [phone] Car Joel MD Unavailable [phone] Reason for Visit * Reason Comments Medication Refill Encounter Details Date Type Department Care Team (Late st Contact Info) Description 03/26/2017 Refill [facility] Weight Loss [facility] [place] [address] [facility] [address] [place] [phone] Juan A Valdovinos PA-C [address] [facility] [address] [place] [phone] Medication Refill Social History Tobacco Use Types Packs/Day Years Used Date Smoking Tobacco: Former Cigarettes Smokeless Tobacco: Never Comments:as a child Alcohol Use Standard Drinks/Week Comments No 0 (1 standard drink = 0.6 oz pur e alcohol) Sex and Gender Information Value Date Recorded Sex Assigned at Female 06/29/2021 12:12 PM BUSINESS AND MARKETING TEACHER Gender Identity Female 06/29/2021 12:12 PM BUSINESS AND MARKETING TEACHER Sexual Orientation Straight 06/29/2021 12 :12 PM BUSINESS AND MARKETING TEACHER documented as of this encounter Plan of Treatment Not on file documented as of this encounter Visit Diagnoses Diagnosis Bariatric surgery status documented in this encounter Care Teams Compo Conveyor Operator Relationship Specialty Start Date End Date Nemesio Costa MD PCP - General 05/30/11 03/22/20 Matheus Feliciano MD [address] [place] [address] [place] [phone] PCP - General 03/23/20 Car Joel MD [address] [facility] [address] [place] [address] Assigned Surgical Provider 06/01/20 documented as of this encounter
--- OUTSIDE RECORDS SUMMARY | 2024-01-29 11:06 | XMS_ITS | Encounter Summary ---
Author Organization [place] Address [address] [place] [address]. [place] [address] Care Team Providers Care Polymer Materials Consultant Name Role Phone Nemesio Costa MD Primary Care Provider [phone] Matheus Feliciano MD Primary Care Provider [phone] Car Joel MD Unavailable [phone] Reason for Visit * Reason Comments Refill Request Encounter Details Date Type Department Care Team (Late st Contact Info) Description 05/16/2013 Refill [facility] Weight Management Clinic [place] [address] [place] [phone] Montserrat Shepherd PA-C [address] [place] [address] Refill Request Social History Tobacco Use Types Packs/Day Years Used Date Smoking Tobacco: Former Cigarettes Smokeless Tobacco: Never Comments:as a child Alcohol Use Standard Drinks/Week Comments No 0 (1 standard drink = 0.6 oz pur e alcohol) Sex and Gender Information Value Date Recorded Sex Assigned at Female 06/29/2021 12:12 PM DATA PROCESSING EQUIPMENT REPAIRER Gender Identity Female 06/29/2021 12:12 PM DATA PROCESSING EQUIPMENT REPAIRER Sexual Orientation Straight 06/29/2021 12 :12 PM DATA PROCESSING EQUIPMENT REPAIRER documented as of this encounter Plan of Treatment Not on file documented as of this encounter Visit Diagnoses Diagnosis Bariatric surgery status- Primary documented in this encounter Care Teams Polymer Materials Consultant Relationship Specialty Start Date End Date Nemesio Costa MD PCP - General 05/30/11 03/22/20 Matheus Feliciano MD [address] [place] [address] [place] [phone] PCP - General 03/23/20 Car Joel MD [address] [facility] [address] [place] [address] Assigned Surgical Provider 06/01/20 documented as of this encounter
--- OUTSIDE RECORDS SUMMARY | 2024-01-29 11:06 | XMS_ITS | Encounter Summary ---
Author Organization [place] Address [facility] [place] [address] Care Team Providers Care Can Sorter Name Role Phone Nemesio Costa MD Primary Care Provider [phone] Matheus Feliciano MD Primary Care Provider [phone] Car Joel MD Unavailable [phone] Reason for Visit * Reason Comments Medication Refill Encounter Details Date Type Department Care Team (Late st Contact Info) Description 07/13/2013 Refill [facility] Weight Management [facility] [place] [address] [place] [phone] Montserrat Shepherd PA-C [address] [place] [address] Medication Refill Social History Tobacco Use Types Packs/Day Years Used Date Smoking Tobacco: Former Cigarettes Smokeless Tobacco: Never Comments:as a child Alcohol Use Standard Drinks/Week Comments No 0 (1 standard drink = 0.6 oz pur e alcohol) Sex and Gender Information Value Date Recorded Sex Assigned at Female 06/29/2021 12:12 PM CHILD CARE CENTRE DIRECTOR Gender Identity Female 06/29/2021 12:12 PM CHILD CARE CENTRE DIRECTOR Sexual Orientation Straight 06/29/2021 12 :12 PM CHILD CARE CENTRE DIRECTOR documented as of this encounter Plan of Treatment Not on file documented as of this encounter Visit Diagnoses Diagnosis Bariatric surgery status- Primary Overweight and obesity(278.0) documented in this encounter Care Teams Can Sorter Relationship Specialty Start Date End Date Nemeiso Costa MD PCP - General 05/30/11 03/22/20 Matheus Feliciano MD [address] [place] [address] [place] [phone] PCP - General 03/23/20 Car Joel MD [address] [facility] [address] [place] [address] Assigned Surgical Provider 06/01/20 documented as of this encounter
--- OUTSIDE RECORDS SUMMARY | 2024-01-29 11:06 | XMS_ITS | Encounter Summary ---
Author Organization [place] Address [facility] [place] [address] Care Team Providers Care Buying Intern Name Role Phone Nemesio Costa MD Primary Care Provider [phone] Matheus Feliciano MD Primary Care Provider Car Joel MD Unavailable [phone] Reason for Visit * Reason Comments Refill Request Encounter Details Date Type Department Care Team (Late st Contact Info) Description 05/08/2013 Refill [facility] [place] [address] [place] [phone] Montserrat Shepherd PA-C [address] [place] [address] Refill Request Social History Tobacco Use Types Packs/Day Years Used Date Smoking Tobacco: Former Cigarettes Smokeless Tobacco: Never Comments:as a child Alcohol Use Standard Drinks/Week Comments No 0 (1 standard drink = 0.6 oz pur e alcohol) Sex and Gender Information Value Date Recorded Sex Assigned at Female 06/29/2021 12:12 PM FACILITY SPECIALIST Gender Identity Female 06/29/2021 12:12 PM FACILITY SPECIALIST Sexual Orientation Straight 06/29/2021 12 :12 PM FACILITY SPECIALIST documented as of this encounter Miscellaneous Notes * Telephone Encounter - Montserrat Shepherd PA-C - 05/09/2013 8:13 AM CDT Pt must be seen in clinic to get annual rx worth of refill. documented in this encounter Plan of Treatment Not on file documented as of this encounter Visit Diagnoses Diagnosis Bariatric surgery status- Primary Other and unspecified postsurgical nonabsorption documented in this encounter Care Teams Buying Intern Relationship Specialty Start Date End Date Nemesio Costa MD PCP - General 05/30/11 03/22/20 Matheus Feliciano MD [address] [place] [address] [place] [phone] PCP - General 03/23/20 Car Joel MD [address] [facility] [address] [address] [place] [address] Assigned Surgical Provider 06/01/20 documented as of this encounter
--- OUTSIDE RECORDS SUMMARY | 2024-01-29 11:06 | XMS_ITS | Encounter Summary ---
Author Organization [place] Address [address] [place] [address]. [place] [address] Care Team Providers Care Pulp Piler Name Role Phone Nemesio Costa MD Primary Care Provider Matheus Feliciano MD Primary Care Provider Car Joel MD Unavailable [phone] Reason for Visit * Reason Comments Medication Refill Encounter Details Date Type Department Care Team (Late st Contact Info) Description 08/29/2017 Refill [facility] [place] [address] [facility] [address] [place] [phone] Juan A Valdovinos PA-C [address] [facility] [address] [place] [phone] Medication Refill Social History Tobacco Use Types Packs/Day Years Used Date Smoking Tobacco: Former Cigarettes Smokeless Tobacco: Never Comments:as a child Alcohol Use Standard Drinks/Week Comments No 0 (1 standard drink = 0.6 oz pur e alcohol) Sex and Gender Information Value Date Recorded Sex Assigned at Female 06/29/2021 12:12 PM STRUCTURES ASSEMBLER Gender Identity Female 06/29/2021 12:12 PM STRUCTURES ASSEMBLER Sexual Orientation Straight 06/29/2021 12 :12 PM STRUCTURES ASSEMBLER documented as of this encounter Miscellaneous Notes * Telephone Encounter - Lon Rodriguez PA-C - 09/02/2017 12:16 PM STRUCTURES ASSEMBLER Needs appointment CTURES ASSEMBLER documented in this encounter Plan of Treatment Not on file documented as of this encounter Visit Diagnoses Diagnosis Bariatric surgery status documented in this encounter Care Teams Pulp Piler Relationship Specialty Start Date End Date Nemesio Costa MD PCP - General 05/30/11 03/22/20 Matheus Feliciano MD [address] [facility] [place] [phone] PCP - General 03/23/20 Car Joel MD [address] [facility] [address] [place] [address] Assigned Surgical Provider 06/01/20 documented as of this encounter
--- OUTSIDE RECORDS SUMMARY | 2024-01-29 11:06 | XMS_ITS | Encounter Summary ---
Author Organization [facility] Address [address] [place] [address]. [place] [address] Care Team Providers Care Mule Operator Name Role Phone Matheus Feliciano MD Primary Care Provider Car Joel MD Unavailable [phone] Encounter Details Date Type Department Care Team (Late st Contact Info) Description 01/31/2021 Telephone [facility] [place] [id number] [facility] [address] [place] [address] Lon Rodriguez PA-C [address] [place] [address] Social History Tobacco Use Types Packs/Day Years Used Date Smoking Tobacco: Former Cigarettes Smokeless Tobacco: Never Comments:as a child Alcohol Use Standard Drinks/Week Comments No 0 (1 standard drink = 0.6 oz pur e alcohol) Sex and Gender Information Value Date Recorded Sex Assigned at Female 06/29/2021 12:12 PM ROD BUSTER Gender Identity Female 06/29/2021 12:12 PM ROD BUSTER Sexual Orientation Straight 06/29/2021 12 :12 PM ROD BUSTER COVID-19 Exposure Response Date Recorded In the last month, have you been in contact with someone who was confirmed or suspected to have Coronavirus / COVID-19? No / Unsure 01/10/2021 3:54 PM CDT documented as of this encounter Miscellaneous Notes * Telephone Encounter - Leonila Shanks MA - 02/01/2021 11:34 AM CDT Lab order faxed Leonila Shanks MA * Telephone Encounter - Jagdeep Morales - 01/31/2021 4:17 PM CDT Pt needs lab orders faxed over to [facility] in [facility] as soon as possible. Fax number is [phone]. Please see TE from Rehana about what labs needs to be faxed over. Thanks! documented in this encounter Plan of Treatment Not on file documented as of this encounter Visit Diagnoses Not on filedocumented in this encounter Care Teams Mule Operator Relationship Specialty Start Date End Date Matheus Feliciano MD [address] [place] [address] [place]PANKAJ Patel [phone] PCP - General 03/23/20 Car Joel MD [address] [facility] [place] [address] [place] [id number] Assigned Surgical Provider 06/01/20 documented as of this encounter
--- OUTSIDE RECORDS SUMMARY | 2024-01-29 11:06 | XMS_ITS | Encounter Summary ---
Author Organization [facility] Address [address] [place] [address]. [place] [address] Care Team Providers Care Bed Manager Name Role Phone Nemesio Costa MD Primary Care Provider Matheus Feliciano MD Primary Care Provider Car Joel MD Unavailable [phone] Reason for Visit * Reason Comments Medication Refill Encounter Details Date Type Department Care Team (Late st Contact Info) Description 10/22/2014 Refill [facility] [place] [address] [facility] [address] [place] [phone] Montserrat Shepherd PA-C [address] [facility] [address] [place] [address] Medication Refill Social History Tobacco Use Types Packs/Day Years Used Date Smoking Tobacco: Former Cigarettes Smokeless Tobacco: Never Comments:as a child Alcohol Use Standard Drinks/Week Comments No 0 (1 standard drink = 0.6 oz pur e alcohol) Sex and Gender Information Value Date Recorded Sex Assigned at Female 06/29/2021 12:12 PM EDGING MACHINE CATCHER Gender Identity Female 06/29/2021 12:12 PM EDGING MACHINE CATCHER Sexual Orientation Straight 06/29/2021 12 :12 PM EDGING MACHINE CATCHER documented as of this encounter Plan of Treatment Not on file documented as of this encounter Visit Diagnoses Diagnosis Bariatric surgery status- Primary documented in this encounter Care Teams Bed Manager Relationship Specialty Start Date End Date Nemesio Costa MD PCP - General 05/30/11 03/22/20 Matheus Feliciano MD [address] [facility] [place] [phone] PCP - General 03/23/20 Car Joel MD [address] [facility] [place] [address] [place] [id number] Assigned Surgical Provider 06/01/20 documented as of this encounter
== END 2024-01-29 11:02 | disposition home or self-care (01) ==
PROVIDERS: PCP Nurse Practitioner Family; Visit Provider Nurse Practitioner Family
DX: R10.9 Unspecified abdominal pain (principal)
CPT/HCPCS: 80053; 82150; 83690; 85025

== ENCOUNTER 2024-02-19 14:07 | Outpatient (CLI) | payer OTHER, SELFPAY ==
--- NOTE | 2024-02-19 14:30 | CRLHL7_ITS ---
For Patients: As a result of the Century Cures Act, medical imaging exams and procedure reports are released immediately into your electronic medical record. You may view this report before your referring provider. If you have questions, please contact your health care provider. EXAM: MRI OF THE PELVIS, WITHOUT AND WITH IV CONTRAST CLINICAL INDICATION: Abnormal right iliac lesion on recent CT. COMPARISON PLAIN FILMS: 11/24/2023. COMPARISON CROSS-SECTIONAL IMAGING STUDIES: 01/21/2024 CT abdomen pelvis. TECHNICAL: Axial, sagittal and coronal T1, PD FS and STIR images of the pelvis precontrast. Postcontrast T1 weighted imaging with fat saturation. Contrast: Dotarem, 16 mL IV. FINDINGS: HIP JOINTS: Right: No joint effusion. No subchondral edema or cystic change. Left: No joint effusion. No subchondral edema or cystic change. OSSEOUS STRUCTURES: Postoperative change in the posterior cortical margin and intramedullary region of the right ilium medially and posteriorly. No worrisome osseous lesion. Additional postoperative changes in the lumbosacral spine. Benign bone islands in the pelvis and proximal right femur. No fracture or contusion. No evidence for avascular necrosis. MUSCULOTENDINOUS STRUCTURES AND BURSAE: Gluteus Minimus and Medius: No tendon tear or tendinopathy. No muscle atrophy or edema. Bursae: No trochanteric or iliopsoas bursitis. Common Hamstrings: No tendon tear or tendinopathy. Adductors and Flexors: Tendons and myotendinous junctions are intact. No muscle atrophy or edema. SOFT TISSUES: No subcutaneous edema, hematoma or fluid collection. 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 Pubic symphysis is maintained. INTRAPELVIC CONTENTS: No mass, fluid collection or adenopathy. No inguinal hernia. NEUROVASCULAR STRUCTURES: No abnormality of the proximal femoral or sciatic nerves. No aneurysmal dilatation of the visualize distal aorta. IMPRESSION: 1. Postoperative change in the right ilium accounts for the CT abnormality. No worrisome osseous lesion. Additional postoperative changes in the lumbosacral spine. 2. Multiple benign bone islands in the pelvis and proximal right femur. 3. Degenerative changes in the SI joints, right greater than left. Dictated by Cisco Hill MD @ 02/23/2024 12:47:00 PM (Electronically Signed)
== END 2024-02-19 14:08 | disposition home or self-care (01) ==
PROVIDERS: PCP Nurse Practitioner Family; Visit Provider Nurse Practitioner Family
DX: R93.89 Abnormal findings on diagnostic imaging of other specified body structures (principal); M46.1 Sacroiliitis, not elsewhere classified
CPT/HCPCS: 72197; A9575

== ENCOUNTER 2024-04-05 07:26 | Outpatient (CLI) | payer OTHER, SELFPAY | END 2024-04-05 07:27 | disposition home or self-care (01) | LOC: KYNREF 13:59 | PROVIDERS: PCP Nurse Practitioner Family; Visit Provider Nurse Practitioner Family | DX: N32.81 Overactive bladder (principal); R32 Unspecified urinary incontinence | CPT/HCPCS: 80076 ==

== ENCOUNTER 2025-04-17 15:56 | Outpatient (CLI) | payer SELFPAY | END 2025-04-17 15:57 | disposition home or self-care (01) | PROVIDERS: PCP Nurse Practitioner Family; Visit Provider Nurse Practitioner Family | DX: Z00.00 Encounter for general adult medical examination without abnormal findings (principal); E53.9 Vitamin B deficiency, unspecified; Z12.31 Encounter for screening mammogram for malignant neoplasm of breast; Z13.0 Encounter for screening for diseases of the blood and blood-forming organs and certain disorders involving the immune mechanism | CPT/HCPCS: 80053; 80061; 82306; 82607; 85025 ==